=== PATIENT | male | born 1940 | race Caucasian/White ===

== ENCOUNTER 2023-01-14 13:58 | Outpatient (CLI) | payer MEDICARE, SELFPAY | END 2023-01-14 13:59 | disposition home or self-care (01) | PROVIDERS: Visit Provider Internal Medicine Nephrology | DX: R60.9 Edema, unspecified (principal); N18.2 Chronic kidney disease, stage 2 (mild); R97.20 Elevated prostate specific antigen [PSA] | CPT/HCPCS: 80069; 82043; 82306; 82310; 82570; 82728; 82784; 83520; 83540; 83550; 83970; 84155; 84165; 86334 ==

== ENCOUNTER 2023-01-30 11:36 | Outpatient (CLI) | payer MEDICARE, SELFPAY | END 2023-01-30 11:37 | disposition home or self-care (01) | LOC: NFLDREF 01-31 02:15 | PROVIDERS: Referring Provider Internal Medicine Nephrology; Visit Provider Family Medicine | DX: N18.2 Chronic kidney disease, stage 2 (mild) (principal); R60.9 Edema, unspecified | CPT/HCPCS: 80069; 82043; 82570; 84156; 84166; 86335 ==

== ENCOUNTER 2023-02-04 10:06 | Outpatient (CLI) | payer MEDICARE, SELFPAY ==
--- NOTE | 2023-02-04 10:15 | CRLHL7_ITS ---
For Patients: As a result of the Century Cures Act, medical imaging exams and procedure reports are released immediately into your electronic medical record. You may view this report before your referring provider. If you have questions, please contact your health care provider. CLINICAL HISTORY: Chronic kidney disease TECHNIQUE: Martinez scale and color Doppler images were acquired of the kidneys. FINDINGS: The right kidney measures 12.1 cm in length and the left kidney measures 11.8cm in length. The renal cortex appears of normal thickness. Multiple simple appearing cysts measuring 4 centimeters on the right and up to 4.3 centimeters on the left. IMPRESSION: Unremarkable kidneys with bilateral renal cysts. Dictated by Gris Graff MD @ 02/06/2023 5:49:50 AM (Electronically Signed)
--- NOTE | 2023-02-04 15:00 | CRLHL7_ITS ---
For Patients: As a result of the Century Cures Act, medical imaging exams and procedure reports are released immediately into your electronic medical record. You may view this report before your referring provider. If you have questions, please contact your health care provider. INDICATION: Edema TECHNIQUE: A compression venous ultrasound exam was performed of both lower extremities using zhou scale imaging, color Doppler and spectral Doppler analysis. FINDINGS: Sonographic imaging of the lower extremities demonstrates normal compressibility and color Doppler venous blood flow within the common femoral, deep femoral, and proximal greater saphenous veins. Within the thighs the femoral veins are patent and compressible. At a lower level the popliteal and posterior tibial veins also show normal compressibility and color Doppler venous blood flow. IMPRESSION: No evidence of deep vein thrombosis within either the left or right lower extremity. Lower extremity soft tissue edema. Dictated by Gris Graff MD @ 02/06/2023 5:56:03 AM (Electronically Signed)
== END 2023-02-04 10:07 | disposition home or self-care (01) ==
PROVIDERS: Visit Provider Internal Medicine Nephrology
DX: N18.2 Chronic kidney disease, stage 2 (mild) (principal); R60.9 Edema, unspecified; M79.604 Pain in right leg; M79.605 Pain in left leg
CPT/HCPCS: 76775; 93970

== ENCOUNTER 2023-02-20 11:40 | Outpatient (CLI) | payer MEDICARE, SELFPAY | END 2023-02-20 11:41 | disposition home or self-care (01) | LOC: RAD 11:44 | PROVIDERS: Visit Provider Internal Medicine Nephrology | DX: R60.9 Edema, unspecified (principal); I35.1 Nonrheumatic aortic (valve) insufficiency; I34.0 Nonrheumatic mitral (valve) insufficiency; I07.1 Rheumatic tricuspid insufficiency | CPT/HCPCS: 93306 ==

== ENCOUNTER 2023-02-26 13:10 | Outpatient (CLI) | payer MEDICARE, SELFPAY ==
--- OUTSIDE RECORDS SUMMARY | 2023-02-27 06:17 | XMS_ITS | Referral Summary ---
Author Name Unknown Organization [facility] Address [address] [place] [id number] Care Team Providers Care Safety Aide Name Role Phone Unavailable Primary Care Provider Unavailabl e Source Comments Patient records contain information from all sites at [facility]. For routine questions regarding patient records, call [phone] during business hours, M-F 8:00 AM - 5:00 PM Central Time. Record requests for emergency care only can be directed to [phone] at any time.[facility] Encounters Date Type Department Care Team Description 02/04/2023 11:30 AM DRAW FIRE OPERATOR External Outreach Division of Nephrology and Hypertension in [place], [place] [address] [place] [address] Ceci Park M.D., Ph.D. Chronic Kidney Disease (CKD), Stage 3b Glomerular Filtration Rate (GFR) 30 To 44 (HCC) (Primary Dx); Failure Renal Acute (Acute Kidney Injury) (HCC); Anemia Of Chronic Renal Disease; Swelling Leg 01/28/2023 Orders Only Division of Nephrology and Hypertension in [place], [place] [address] [place] [phone] Ceci Park M.D., Ph.D. 01/14/2023 1:00 PM DRAW FIRE OPERATOR External Outreach Division of Nephrology and Hypertension in [place], [place] [address] [place] [phone] Ceci Park M.D., Ph.D. Failure Renal Acute (Acute Kidney Injury) (HCC) (Primary Dx); Hypertension Essential Primary; Swelling Leg; Elevated Prostate-Specific Antigen 12/29/2022 Clinical Communication Division of Nephrology and Hypertension in [place], [place] [address] [place] [phone] Corona Esposito Jr., D.O. from Last 3 Months Medications Medication Sig Dispensed Refills Start Date End Date Status ferrous sulfate 325 mg (65 mg iron) DR tablet Take 1 tablet (65 mg of iron total) by mouth daily. 90 tablet 3 01/28/2023 01/28/2024 Active Social History Tobacco Use Types Packs/Day Years Used Date Smoking Tobacco: Never Assessed Nutrition Answer Date Recorded Nutrition: EVOO Fat Source Unknown 12/24 Nutrition: Servings of Fruits/Vegetables per Day Not on file 12/24/2022 Dental Answer Date Recorded Dental: Regular Dentist Unknown 12/25/19 Sex and Gender Information Value Date Recorded Sex Assigned at Not on file Gender Identity Not on file Sexual Orientation Not on file Plan of Treatment Not on file
--- OUTSIDE RECORDS SUMMARY | 2023-02-27 06:17 | XMS_ITS | Encounter Summary ---
Author Name Unknown Organization [facility] Address [address] [place] [address] Care Team Providers Care Bilingual Recruiter Name Role Phone Unavailable Primary Care Provider Unavailabl e Encounter Details Date Type Department Care Team (Late st Contact Info) Description 12/29/2022 Clinical Communication Division of Nephrology and Hypertension in [place], [place] [address] [place] [address] Corona Esposito Jr., D.O. [address] [place] [address] Social History Tobacco Use Types Packs/Day Years [...] on file Sexual Orientation Not on file documented as of this encounter Plan of Treatment Not on file documented as of this encounter Visit Diagnoses Not on filedocumented in this encounter
--- OUTSIDE RECORDS SUMMARY | 2023-02-27 06:17 | XMS_ITS | Encounter Summary ---
Author Name Unknown Organization [facility] Address [address] [place] [address] Care Team Providers Care Top Lift Compresser Name Role Phone Unavailable Primary Care Provider Unavailabl e Reason for Visit * Appointment Request (Routine) - Closed Specialty Diagnoses / Procedures Referred By Marika hutchins Referred To Contact Nephrology and Hypertension Tate Bear M.D., D.O. 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 [address] [place] [phone] Failure Renal Acute (Acute Kidney Injury) (HCC) (Primary Dx); Hypertension Essential Primary; Swelling Leg; Elevated Prostate-Specific Antigen Social History Tobacco Use Types Packs/Day Years Used Date Smoking Tobacco: Never Assessed Nutrition Answer Date Recorded Nutrition: EVOO Fat Source Unknown 12/24 Nutrition: Servings of Fruits/Vegetables per Day Not on file 12/24/2022 Dental Answer Date Recorded Dental: Regular Dentist Unknown 12/25/19 23 Sex and Gender Information Value Date Recorded Sex Assigned at Not on file Gender Identity Not on file Sexual Orientation Not on file documented as of this encounter Consult Notes * Ceci Park M.D., Ph.D. - 01/14/2023 1:00 PM CST Referring Provider: Tate Bear M.D., D.O. SUBJECTIVE CHIEF COMPLAINT / REASON FOR VISIT FRANCISCO and lower extremity edema HISTORY OF PRESENT ILLNESS Kavon Song is a 82 y.o. male with no known significant past medical history (per patient report) other than longstanding hypertension for the past 5 years on treatment with losartan/HCTZ andfurosemide, and a history of obstructing gallbladder stone requiring intervention (summer) who is referred by his PCP for FRANCISCO and lower extremity edema. Patient recalls having lower extremity edema for the past 2 years, which has worsen over the past few months. He is on diuretic therapy with furosemide and HCTZ with no improvement. He is not aware of having a heart problem or liver problem. His furosemide was decreased 3 weeks ago from 60 mg to 40mg daily due to FRANCISCO. He has chronic anemia and recently his PSA was found to be above 5. He has arthritic pain in hands, hips and feet for which he was taking Aleve 3-4 tablets per day andstopped taking it when he found out that his creatinine was elevated 3 weeks ago. He has not noticed any changes in his urine. No dizziness, no shortness of breath. He sleeps in a recliner for the past 2 years due to restless leg syndrome, but describes no shortness of breath when lying flat. Social History Tobacco Use Smoking status: Not on file Smokeless tobacco: Not on file Substance Use Topics Alcohol use: Not on file He drinks 4 oz of wine per day, he makes his own wine. He used to smoke when younger, quit more than 30 years ago. REVIEW OF SYSTEMS ,All other systems were reviewed and are negative, rest as per HPI. OBJECTIVE BP 136/72 Pulse 76 PHYSICAL EXAMINATION General: No acute distress, breathing comfortably. Heart: Regular rate and rhythm. No murmurs, rubs or gallops. Respiratory: Regular inspiratory effort. No wheezes, no rhonchi. Abdomen: Soft, not tender, not distended. Present bowel sounds. Extremities: Full range of motion. Normal gait. 3+ edema in lower extremities up to the knees, bilaterally Neuro: No focal deficits. Alert and oriented X 4. Skin: Warm. No rashes. Psych: Answers questions appropriately. No signs of anxiety or depression noted. DIAGNOSTICS Labs: [facility] ASSESSMENT / PLAN #1 Failure Renal Acute (Acute Kidney Injury) (HCC) #2 Hypertension Essential Primary #3 Swelling Leg #4 Elevated Prostate-Specific Antigen Patient is referred to Nephrology for evaluation of his FRANCISCO and lower extremity swelling. I will repeat blood work to trend creatinine now that he has discontinued NSAIDs use. I have recommended him to take tylenol for pain. I have ordered a kidney ultrasound to evaluate any signs of obstruction that could cause obstructive uropathy leading to rising creatinine. He will be referred to Urology for evaluation of elevated PSA. I will order urinalysis and check for protein in urine with 24 hr urine collection. I have added SPEP and UPEP to evaluate for his lower extremity edema. I have asked him to increase his lasix to 60 mg daily. I have also ordered an echocardiogram for evaluation of edema. Return visit in 1 month to review tests results. Pat Jose M.D., Ph.D. Nephrology and Hypertension RITY SYSTEM INSTALLER documented in this encounter Plan of Treatment Not on file documented as of this encounter Visit Diagnoses Diagnosis Failure Renal Acute (Acute Kidney Injury) (HCC)- Primary Hypertension Essential Primary Swelling Leg Elevated Prostate-Specific Antigen documented in this encounter
--- OUTSIDE RECORDS SUMMARY | 2023-02-27 06:17 | XMS_ITS | Clinical Summary ---
Author Name Unknown Organization [facility] Address [place], [place] [address] Care Team Providers Care Ballpoint Pen Cartridge Tester Name Role Phone Tate Bear DO Primary Care Provide r Allergies Active Allergy Reactions Criticality Noted Date Comments Sulfamethoxazole-Trimethoprim *Unknown Ciprofloxacin *Unknown Pravastatin *Unknown Medications Medication Sig Dispensed Refills Start Date End Date Status cholecalciferol, Vitamin D3, 2,000 unit tablet Take 2,000 units by mouth once daily. 0 Active omeprazole 20 mg tablet Take 10 mg by mouth once daily. 0 Active multivitamin (MVI) tablet Take 1 Tablet by mouth once daily. 0 Active atorvastatin (LIPITOR) 10 mg tabletIndications:Othe r hyperlipidemia Take 1 tablet by mouth once daily 90 Tablet 3 07/29/2022 Active omeprazole (PRILOSEC) 20 mg Delayed-Release capsuleIndications:Chr onic GERD TAKE 1 CAPSULE BY MOUTH ONCE DAILY NEEDED FOR GI UPSET 90 Capsule 3 07/29/2022 Active losartan-hydrochloroth iazide (HYZAAR) 100-25 mg tabletIndications:Esse ntial hypertension Take 1 Tablet by mouth once daily. 90 Tablet 3 12/17/2022 Active furosemide (LASIX) 20 mg tabletIndications:Stag e 3b chronic kidney disease (HC),Edema, unspecified type Take 3 Tablets (60 mg) by mouth once daily. 270 Tablet 1 12/19/2022 Active Active Problems Problem Noted Date Diagnosed Date Depression, recurrent 12/21/2022 Acute gout of left ankle 09/22/2021 Choledocholithiasis 09/14/2021 Abnormal LFTs 09/14/2021 Diarrhea 09/14/2021 HTN (hypertension) 09/14/2021 Hypokalemia 09/14/2021 Stage 3b chronic kidney disease 09/14/2021 Blepharitis of both eyes with rosacea 12/24/2015 Hyperopia of both eyes with astigmatism and pres byopia 12/24/2015 Nuclear senile cataract of both eyes 12/24/2015 Resolved Problems Problem Noted Date Diagnosed Date Resolved Date Refractive error 12/10/2009 12/24/2015 Encounters Date Type Department Care Team Description 02/20/2023 1:00 PM FISH SMOKER Ancillary Procedure [facility] [address] [place] [address] 01/07/[address] [phone] Tate Bear, Results 12/30/[address] [phone] Tate Bear, Referral (Nephrology) 12/30/[address] [phone] Tate Bear DO Questions (medication) 12/23/[address] [phone] Tate Bear DO Results (lab results) 12/21/2022 Orders Only [address] [phone] Tate Bear, <No scans attached> 12/18/[address] [phone] Tate Bear DO Refill Request (furosemide (LASIX) 20 mg tablet/) 12/17/2022 11:00 AM CDT Office Visit [address] [phone] Tate Bear DO Medicare ANNUAL (subsequent) Visit (Fasting- The patient reports having arthritis whole body is a stiff board. The patient reports having swollen feet and wrists. The patient reports getting tired real fast.); Immunization/Injecti on 12/17/2022 Travel 12/03/2022 Refill [facility] [address] [place] [address] Tate Bear DO Refill Request (Losartan-hydrochlor othiazide) from Last 3 Months Immunizations Name Administration Dates Next Due COVID-19 vaccine ([employer] 30mcg/0.3mL) GEORGE WARE 10/23/2020,09/10/2020 Influenza RIV4 (Age 18+ Years) PRESERV FREE 07/2019,11/16/2018 Influenza, High-dose Inactivated 11/14/2016,10/18 Influenza, High-dose Quadriv alent Inactivated 11/24/2021,10/23/2020 Influenza, IIV3 (Age 6-35 mos) 11/05/2009 Influenza, IIV3 (Age >=3 years) 12/02/2012,11/12,11/03/2008 Influenza, Inactivated AIIV4 (Age 65+ Years) Preserv Free 12/17/2022 Pneumococcal Poly,23-Valent (Pneumovax) 12/19/19 11 Pneumococcal conj 13-Valent (Prevnar 13) 018 Td (Age >=7 Years) 07/10/2011 Family History Medical History Relation Name Comments Cancer-breast Mother Relation Name Status Comments Mother Social History Tobacco Use Types Packs/Day Years Used Date Smoking Tobacco: Former Cigarettes Q uit: 02/17/1960 Smokeless Tobacco: Never Alcohol Use Standard Drinks/Week Comments Yes 0 (1 standard drink = 0.6 oz pur e alcohol) 1 drink a day PHQ-2 Answer Date Recorded PHQ-2 TOTAL SCORE 4 12/17/2022 Social Connections Answer Date Recorded Frequency of Communication with Friends and Fami ly 0 07/17/2022 Financial Resource Strain Answer Date R ecorded Difficulty of Paying Living Expenses 3 07/17/2022 Difficulty of Paying Living Expenses Not on file 07/17/2022 Food Insecurity Answer Date Recorded Worried About Running Out of Food in the Last Ye ar 1 07/17/2022 Transportation Needs Answer Date Record ed Lack of Transportation (Medical) 1 07/17/2022 Housing Stability Answer Date Recorded Unable to Pay for Housing in the Last Year 1 07/17/2022 Sex and Gender Information Value Date Recorded Sex Assigned at Not on file Gender Identity Not on file Sexual Orientation Not on file Obstetrics History Last Filed Vital Signs Vital Sign Reading Time Taken Comments Blood Pressure 110/68 12/17/2022 11:03 AM CDT Pulse 70 12/17/2022 11:03 AM CDT Temperature 36.6 ??C (97.8 ??F) 09/22/2021 9:36 AM CD T Respiratory Rate 18 09/21/2021 11:42 AM CDT Oxygen Saturation 97% 07/17/2022 10:40 AM CDT Inhaled Oxygen Concentration - - Weight 69.4 kg (153 lb) 12/17/2022 11:03 AM CDT Height 162.6 cm (5' 4) 12/17/2022 11:03 AM CDT Body Mass Index 26.26 12/17/2022 11:03 AM CDT Plan of Treatment Health Maintenance Due Date Last Done Comments Tdap 1949 Zoster (shingles) series for age 50+ (1 of 2) 1988 Tetanus booster 07/09/2021 07/10/2011 COVID-19 vaccine series ( season) 2022 10/23/2020, 09/10/2020 Medicare Wellness for age 65+ 12/17/2023 12/17/2022, 04/18/2021 BMI (ht and wt on same day) for age 18+ 12/18/2023 12/17/2022, 07/17/2022, 09/27/2021, Additional history exists Depression screening for age 12+ 12/19/2023 12/18/2022, 12/17/2022, 04/18/2021 Pneumococcal series for age 65+ Completed 8, 12/18/2010 Influenza for age 65+ Completed 12/17/2022 , 11/24/2021, 10/23/2020, Additional history exists Procedures Procedure Name Priority Date/Time Associated Diagnosis Comments ECHO TTE COMPLETE WO CONTRAST Routine 02/20/2023 12:29 PM FISH SMOKER Edema PSA TOTAL SCREEN Routine 12/17/2022 11:3 6 AM CDT Prostate cancer screening LIPID PANEL W REFLEX MEASURED LDL Routine 12/17/2022 11:36 AM CDT Other hyperlipidemia COMP METABOLIC PANEL Routine 12/17/2022 11:36 AM CDT Medicare annual wellness visit, subsequent CBC W PLT NO DIFF Routine 12/17/2022 11: 36 AM CDT Medicare annual wellness visit, subsequent from Last 3 Months Results * ECHO TTE COMPLETE WO CONTRAST (02/20/2023 12:29 PM FISH SMOKER) AORTIC VALVE MEAN PG 7 mmHg EJECTION FRACTION 55 % PEAK TR VELOCITY 2.8 m/s LVEDD 3.2 cm Anatomical Region Laterality Modality Ultrasound 02/20/2023 12:0 5 PM FISH SMOKER Narrative 02/20/2023 1:24 PM FISH SMOKER ECHOCARDIOGRAM WOJCIECH SONG ?Accession#: ?? [id number] : ?1940 82 years Study Date: ?? 02/20/2023 12:05:59 PM Gender: M ? BP: ? 122/72 mmHg Height: 163.00 cm ? BSA: ?1.76 m? ? ? Weight: 70.00 kg ?Tech: ? MJW ?Referring MD: Floyd Stewart Site: ? [facility] Reading Location: Mobile-OP Patient Location: Outpatient. Procedure: 2D, Color Doppler and Spectral Doppler. Indication for study: Edema Cardiac Rhythm: Regular.Study quality: Fair. Imaging limitations: This study was subject to imaging limitations due to a prominent lung artifact. Final Impressions: 1. Normal left ventricular size, mildly increased wall thickness, normal global systolic function, calculated EF of 55 %. 2. Right ventricular cavity size is normal, global systolic RV function is normal. 3. The aortic valve is sclerotic, no stenosis and trivial regurgitation. 4. The mitral valve is sclerotic, trace mitral regurgitation. 5. Tricuspid valve is normal. 6. Normal left atrium size. 7. The ascending aorta is dilated with a maximal diameter of 4.0 cm. 8. Mildly increased estimated pulmonary pressures by tricuspid regurgitation velocity and right atrial pressure (31 mmHg plus RAP). 9. The aortic sinus is dilated with a maximal diameter of 3.9 cm. 10. No pericardial effusion. Chamber Sizes and Function Normal left ventricular size, mildly increased wall thickness, normal global systolic function, calculated EF of 55 %. Left atrial size is normal. Right ventricular cavity size is normal, global systolic RV function is normal. RV wall thickness is normal. The right atrium is normal. Right atrial volume index is 14 ml/m? ? ?. Right atrial area is 11 cm? ? ?. The pulmonary artery is of normal size and origin. The sinus of Valsalva is dilated. The ascending aorta is dilated. Valves, RV Pressures and Diastolic Function The aortic valve is sclerotic, no stenosis and trivial regurgitation. The mitral valve is sclerotic, trace mitral regurgitation. Indeterminate pattern of LV diastolic filling. The tricuspid valve is normal in structure. Tricuspid regurgitation is trace regurgitation. The tricuspid regurgitant velocity is 2.8 m/s, the estimated right ventricular systolic pressure is 31 mmHg plus right atrial pressure. There is mildly increased estimated pulmonary pressure by tricuspid regurgitation velocity and right atrial pressure. The pulmonic valve is normal. Mild pulmonary regurgitation. Masses, Effusion, Shunts There is no pericardial effusion. The inferior vena cava is normal sized, respiratory size variation greater than 50%. Interatrial septum is not well visualized. MEASUREMENTS AND CALCULATIONS 2-D Measurements and LV Function: LVID (d) 3.2 cm Planimetered EF 55 % LVID (s) 1.6 cm LV FS% (2D) ? 49 % IVS (d) ??1.2 cm LVOT diameter ?? 2.3 cm LVPW (d) 1.3 cm HR ?105 bpm Ao Sinus 3.9 cm LA Vol index ?22 ml/m2 Asc Ao ?? 4.0 cm RA Vol index ?14 ml/m2 LA ? 3.4 cm RA area ? 11 cm?RV Max 4C (d) ?? 3.6 cm Diastology: Mitral ?Tissue Doppler E Peak 0.8 m/s ??e', Septum ? 0.07 m/s A Peak 1.2 m/s ??e', Lateral ?0.06 m/s E/A ?0.7 ?E/e' Average ?? 13.98 DT ? 128 msec Aortic Valve: Vmax ? 1.7 m/s ??STEPHANIE (V) ?? 2.89 cm? ? ? VTI ?0.32 m ?? STEPHANIE (I) ?? 2.60 cm? ? ? LVOT V max ? 1.2 m/s ??Max PG ?11 mmHg LVOT VTI ? 0.20 m ?? Mean PG ?? 7 mmHg SV ? 82 ml ?Dim Index 0.63 SV index ? 47 ml/m? ? ? CO ?8.6 l/min AV Ejection Time 0.25 sec CI ?4.9 l/min/m? ? ? AV Flow Rate ? 330 ml/s Mitral Valve: MVA ? 5.9 cm? ? ? MV P 1/2 ??37 msec MV Mean G 4 mmHg MV VTI ?0.21 m Tricuspid Valve and estimated PA pressures: TR Vmax 2.8 m/s TAPSE 1.9 cm TR maxG 31 mmHg . This study was interpreted by an [facility] accredited facility. CC: NURY (med records) [facility]. ??Final ?? Procedure Note Jackie Pimentel, [facility] - 02/20/2023 ECHOCARDIOGRAM WOJCIECH SONG : 1940 82 years Study Date: 02/20/2023 12:05:59 PM Gender: M BP: 122/72 mmHg Height: 163.00 cm BSA: 1.76 m? ? ? Weight: 70.00 kg Tech: MARYANN Referring MD: Floyd Stewart Site: [facility] Reading Location: Mobile-OP Patient Location: Outpatient. Procedure: 2D, Color Doppler and Spectral Doppler. Indication for study: Edema Cardiac Rhythm: Regular.Study quality: Fair. Imaging limitations: This study was subject to imaging limitations due toa prominent lung artifact. Final Impressions: 1. Normal left ventricular size, mildly increased wall thickness, normalglobal systolic function, calculated EF of 55 %. 2. Right ventricular cavity size is normal, global systolic RV functionis normal. 3. The aortic valve is sclerotic, no stenosis and trivialregurgitation. 4. The mitral valve is sclerotic, trace mitral regurgitation. 5. Tricuspid valve is normal. 6. Normal left atrium size. 7. The ascending aorta is dilated with a maximal diameter of 4.0 cm. 8. Mildly increased estimated pulmonary pressures by tricuspidregurgitation velocity and right atrial pressure (31 mmHg plus RAP). 9. The aortic sinus is dilated with a maximal diameter of 3.9 cm. 10. No pericardial effusion. Chamber Sizes and Function Normal left ventricular size, mildly increased wall thickness, normalglobal systolic function, calculated EF of 55 %. Left atrial size isnormal. Right ventricular cavity size is normal, global systolic RVfunction is normal. RV wall thickness is normal. The right atrium isnormal. Right atrial volume index is 14 ml/m? ? ?. Right atrial area is 11cm? ? ?. The pulmonary artery is of normal size and origin. The sinus ofValsalva is dilated. The ascending aorta is dilated. Valves, RV Pressures and Diastolic Function The aortic valve is sclerotic, no stenosis and trivial regurgitation. Themitral valve is sclerotic, trace mitral regurgitation. Indeterminatepattern of LV diastolic filling. The tricuspid valve is normal instructure. Tricuspid regurgitation is trace regurgitation. The tricuspidregurgitant velocity is 2.8 m/s, the estimated right ventricular systolicpressure is 31 mmHg plus right atrial pressure. There is mildly increasedestimated pulmonary pressure by tricuspid regurgitation velocity and rightatrial pressure. The pulmonic valve is normal. Mild pulmonaryregurgitation. Masses, Effusion, Shunts There is no pericardial effusion. The inferior vena cava is normal sized,respiratory size variation greater than 50%. Interatrial septum is notwell visualized. MEASUREMENTS AND CALCULATIONS 2-D Measurements and LV Function: LVID (d) 3.2 cm Planimetered EF 55 % LVID (s) 1.6 cm LV FS% (2D) 49 % IVS (d) 1.2 cm LVOT diameter 2.3 cm LVPW (d) 1.3 cm HR 105 bpm Ao Sinus 3.9 cm LA Vol index 22 ml/m2 Asc Ao 4.0 cm RA Vol index 14 ml/m2 LA 3.4 cm RA area 11 cm? ? ? RV Max 4C (d) 3.6 cm Diastology: Mitral Tissue Doppler E Peak 0.8 m/s e', Septum 0.07 m/s A Peak 1.2 m/s e', Lateral 0.06 m/s E/A 0.7 E/e' Average 13.98 DT 128 msec Aortic Valve: Vmax 1.7 m/s STEPHANIE (V) 2.89 cm? ? ? VTI 0.32 m STEPHANIE (I) 2.60 cm? ? ? LVOT V max 1.2 m/s Max PG 11 mmHg LVOT VTI 0.20 m Mean PG 7 mmHg SV 82 ml Dim Index 0.63 SV index 47 ml/m? ? ? CO 8.6 l/min AV Ejection Time 0.25 sec CI 4.9 l/min/m? ? ? AV Flow Rate 330 ml/s Mitral Valve: MVA 5.9 cm? ? ? MV P 1/2 37 msec MV Mean G 4 mmHg MV VTI 0.21 m Tricuspid Valve and estimated PA pressures: TR Vmax 2.8 m/s TAPSE 1.9 cm TR maxG 31 mmHg . This study was interpreted by an [facility] accredited facility. CC: NURY (med records) [facility]. Final Provider Referring ECHO ORD * (ABNORMAL) LIPID PANEL W REFLEX MEASURED LDL (12/17/2022 11:36 AM CDT) CHOLESTEROL,TOTAL 153 100 - 199 mg/dL 12/18/2022 7:17 AM CDT [facility] Comment: Cholesterol, Total Reference Ranges Desirable <200 mg/dL Borderline 200-239 mg/dL High >=240 mg/dL TRIGLYCERIDES 241(H) <150 mg/dL 12/18/2022 7:17 AM CDT [facility] HDL CHOLESTEROL 29(L) >40 mg/dL 7:17 AM CDT [facility] NON-HDL CHOLESTEROL 124 <145 mg/dl 12/18/2022 7:17 AM CDT [facility] CHOL/HDL RATIO 5.28(H) <4.50 12/18/2022 7:17 AM CDT [facility] LDL CHOLESTEROL 76 <=130 mg/dL 12/18/2022 7:17 AM CDT [facility] VLDL CHOLESTEROL 48(H) <=30 mg/dL 12/18/2022 7:17 AM CDT [facility] PROVIDER ORDERED STATUS RANDOM 12/18/2022 7:17 AM CDT [facility] Blood BLOOD SPECIMEN / Unknown Venipuncture / Unknown 12/17/2022 11:36 AM CDT 12/17/2022 11:40 AM CDT Tate Bear DO CHEMISTRY [facility] [address] [place] [address], * (ABNORMAL) CBC W PLT NO DIFF (12/17/2022 11:36 AM CDT) WHITE BLOOD COUNT 10.8 4.5 - 11.0 thou/cu mm 12/17/2022 11:48 AM CDT [facility] RED BLOOD COUNT 3.56(L) 4.30 - 5.90 mil/cu mm 12/17/2022 11:48 AM CDT [facility] HEMOGLOBIN 10.0(L) 13.5 - 17.5 g/dL 12/17/2022 11:48 AM CDT [facility] HEMATOCRIT 31.4(L) 37.0 - 53.0 % 12/17/2022 11:48 AM CDT [facility] MCV 88 80 - 100 fL 12/17/2022 11:48 AM CDT [facility] MCH 28.1 26.0 - 34.0 pg 12/17/2022 11:48 AM CDT [facility] MCHC 31.8(L) 32.0 - 36.0 g/dL 12/17/2022 11:48 AM CDT [facility] RDW 14.2 11.5 - 15.5 % 12/17/2022 11:48 AM CDT [facility] PLATELET COUNT 303 140 - 440 thou/cu mm 12/17/2022 11:48 AM CDT [facility] MPV 9.2 6.5 - 11.0 fL 12/17/2022 11:48 AM CDT [facility] NRBC 0.0 % 12/17/2022 11:48 AM CDT [facility] ABS NRBC 0.0 thou /cu mm 12/17/2022 11:48 AM CDT [facility] Blood BLOOD SPECIMEN / Unknown Venipuncture / Unknown 12/17/2022 11:36 AM CDT 12/17/2022 11:40 AM CDT Tate Bear DO HEMATOLOGY Performing Organization Address City/State/[facility] Co de Phone Number [facility] [address] [place] [address], [place] * (ABNORMAL) COMP METABOLIC PANEL (12/17/2022 11:36 AM CDT) SODIUM 141 136 - 145 mmol/L 12/18/2022 7:17 AM CDT [facility] POTASSIUM 4.8 3.5 - 5.1 mmol/L 12/18/2022 7:17 AM T [facility] CHLORIDE 104 98 - 107 mmol/L 12/18/2022 7:17 AM T [facility] CO2,TOTAL 24 22 - 29 mmol/L 12/18/2022 7:17 AM T [facility] ANION GAP 13 5 - 18 12/18/2022 7:17 AM T [facility] GLUCOSE 104(H) 70 - 99 mg/dL 12/18/2022 7:17 AM T [facility] CALCIUM 10.0 8.8 - 10.2 mg/dL 12/18/2022 7:17 AM T [facility] BUN 53(H) 8 - 23 mg/dL 12/18/2022 7:17 AM T [facility] CREATININE 2.21(H) 0.70 - 1.20 mg/dL 12/18/2022 7:17 AM [facility] BUN/CREAT RATIO 24(H) 10 - 20 7:17 AM T [facility] eGFR 29(L) >90 mL/min/1.7 3m2 12/18/2022 7:17 AM T [facility] Comment:As of 2021, eG FR is calculated by the CKD-EPI creatinine equation without race adjustment. ??eGFR can be influenced by muscle mass, exercise, and diet. ??The reported eGFR is an estimation only and is only applicable if the renal function is stable. ALBUMIN 3.7(L) 4.0 - 4.9 g/dL 12/18/2022 7:17 AM T [facility] PROTEIN,TOTAL 7.6 6.0 - 8.0 g/dL 12/18/2022 7:17 AM CDT [facility] BILIRUBIN,TOTAL 0.3 0.0 - 1.2 mg/dL 12/18/2022 7:17 AM CDT [facility] ALK PHOSPHATASE 87 40 - 129 IU/L 12/18/2022 7:17 AM CDT [facility] ALT (SGPT) 17 10 - 50 IU/L 12/18/2022 7:17 AM CDT [facility] AST (SGOT) 23 10 - 50 IU/L 12/18/2022 7:17 AM CDT [facility] Blood BLOOD SPECIMEN / Unknown Venipuncture / Unknown 12/17/2022 11:36 AM CDT 12/17/2022 11:40 AM CDT Tate Bear DO CHEMISTRY [facility] [address] [place] [address], * (ABNORMAL) PSA TOTAL SCREEN (12/17/2022 11:36 AM CDT) PSA TOTAL (SCREEN) 5.73(H) <4.00 ng/mL 12/18/2022 7:17 AM CDT [facility] Blood BLOOD SPECIMEN / Unknown Venipuncture / Unknown 12/17/2022 11:36 AM CDT 12/17/2022 11:40 AM CDT Narrative [facility] - 12/18/2022 7:17 AM CDT The test method changed on 08/12/2022. If this test has been used for serial monitoring, rebaselining is recommended. Rebaselining consists of 2 measurements, collected 3-6 weeks apart. The Jacquelin Elecsys total PSA assay is an electrochemiluminescence immunoassay ECLIA performed on the Jacquelin Mason e immunoassay analyzers. Values obtained with different assay methods may be different and cannot be used interchangeably. Tate Bear DO [facility] [address] [place] [address], from Last 3 Months Advance Directives Latest Code Status on File Code Status Date Activated Date Inactivated Comments Full Code 09/14/2021 2:29 PM 09/15/2021 2:06 PM Question Answer Comments Code Status Discussion: Reviewed Preferences Care Teams Ballpoint Pen Cartridge Tester Relationship Specialty [place] [address] [place] [address] PCP - General Family Practice 07/23/22
--- OUTSIDE RECORDS SUMMARY | 2023-02-27 06:17 | XMS_ITS | Encounter Summary ---
Author Name Unknown Organization [facility] Address [address] [place] [address] Care Team Providers Care Children'S Entertainer Name Role Phone Unavailable Primary Care Provider Unavailabl e Encounter Details Date Type Department Care Team (Late st Contact Info) Description 01/28/2023 Orders Only Division of Nephrology and Hypertension in [place], [place] [address] [place] [phone] Ceci Park M.D., Ph.D. [address] [place] [address] Social History Tobacco Use Types Packs/Day Years [...]
--- OUTSIDE RECORDS SUMMARY | 2023-02-27 06:17 | XMS_ITS | Encounter Summary ---
Author Name Unknown Organization [facility] Address [address] [place] [id number] Care Team Providers Care Import Export Agent Name Role Phone Unavailable Primary Care Provider Unavailabl e Reason for Visit * Appointment Request (Routine) - Closed Specialty Diagnoses / Procedures Referred By Marika hutchins Referred To Contact Nephrology and Hypertension Referral ID Status Reason Start Date Expiration Date Visits Re quested Visits Authorized [id number] Closed 01/16/2023 01/16/2024 1 1 Encounter Details Date Type Department Care Team (Latest Contact Info) Description 02/04/2023 11:30 AM GLASS INSPECTOR External Outreach Division of Nephrology and Hypertension in [place], [place] [address] [place] [address] Ceci Park M.D., Ph.D. [address] [place] [address] Chronic Kidney Disease (CKD), Stage 3b Glomerular Filtration Rate (GFR) 30 To 44 (HCC) (Primary Dx); Failure Renal Acute (Acute Kidney Injury) (HCC); Anemia Of Chronic Renal Disease; Swelling Leg Social History Tobacco Use Types Packs/Day Years [...] on file documented as of this encounter Progress Notes * Ceci Park M.D., Ph.D. - 02/04/2023 11:30 AM CST PROGRESS NOTE SUBJECTIVE CHIEF COMPLAINT / REASON FOR VISIT Follow up FRANCISCO on CKD, edema HISTORY OF PRESENT ILLNESS Kavon Song is a 82 y.o. male who is seen for follow up. He has no known significant past medical history (per patient report) other than longstanding hypertension for the past 5 years on treatment with losartan/HCTZ and furosemide, and a history of obstructing gallbladder stone requiring intervention (summer) who was referred by his PCP for FRANCISCO and lower extremity edema. FRANCISCO was associated with NSAIDs use, he has now discontinue Aleve and his kidney function is back tohis baseline with a Cr. Of 1.8. Patient recalls having lower extremity edema for the past 2 years, which has worsen over the past few months. He is on diuretic therapy with furosemide which he increased to 60 mg daily and HCTZ 25 mg daily with no improvement. He is not aware of having a heart problem or liver problem. Liver enzymes were normal in 12/2022. He has an appointment for echo on Feb 20, 2022. He has chronic anemia and recently his PSA was found to be above 5. He has been referred to Urologyfor follow up on his PSA. He was started on oral supplementation for his anemia. He has arthritic pain in hands, hips and feet Tylenol has not been of much help with his chronic arthritic pain. He has not noticed any changes in his urine. No dizziness, no shortness of breath. OBJECTIVE BP 110/52 Pulse 103 PHYSICAL EXAMINATION Physical Exam Heart: No murmurs, rubs or gallops Lungs: Clear to auscultation bilaterally Extremities: Bilateral 3+ pitting lower extremity edema, right > left DIAGNOSTICS I have reviewed available labs in detail with patient. ASSESSMENT / PLAN #1 FRANCISCO on CKD 3, resolved #2 CKD 3 in the setting of hypertension #3 Anemia of CKD #4 Lower extremity edema Patient returns for follow up. Kidney function back to his baseline. Patient may continue with lasix 60 mg daily and HCTZ 25 mg daily. His lower extremity edema is not improved. His right leg is significantly more swollen than left leg, plan to rule out DVTs with a bilateral LE ultrasound with doppler. He is scheduled for echo in February as work up of his volume overload as well. Continue iron supplementation for anemia. Recheck iron levels in 3 months. 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 Return visit in February Pat Jose M.D., Ph.D. S INSPECTOR documented in this encounter Plan of Treatment Not on file documented as of this encounter Visit Diagnoses Diagnosis Chronic Kidney Disease (CKD), Stage 3b Glomerular Filtration Rate (GFR) 30 To 44 (HCC)- Primary Failure Renal Acute (Acute Kidney Injury) (HCC) Anemia Of Chronic Renal Disease Swelling Leg documented in this encounter
--- OUTSIDE RECORDS SUMMARY | 2023-02-27 06:17 | XMS_ITS | Clinical Summary ---
Author Name Unknown Organization [facility] Address [address] [place] [address] Care Team Providers Care Machine Tank Operator Name Role Phone Unavailable Primary Care Provider Unavailabl e Source Comments Patient records contain information from all sites at [facility]. For routine questions regarding patient records, call [phone] during business hours, M-F 8:00 AM - 5:00 PM Central Time. Record requests for emergency care only can be directed to [phone] at any time.[facility] Medications Medication Sig Dispensed Refills Start Date End Date Status ferrous sulfate 325 mg (65 mg iron) DR tablet Take 1 tablet (65 mg of iron total) by mouth daily. 90 tablet 3 01/28/2023 01/28/2024 Active Encounters Date Type Department Care Team Description 02/04/2023 11:30 AM PHOTOGRAPH DEVELOPER External Outreach Division of Nephrology and Hypertension in [place], [place] [address] [place] [address] Ceci Park M.D., Ph.D. Chronic Kidney Disease (CKD), Stage 3b Glomerular Filtration Rate (GFR) 30 To 44 (HCC) (Primary Dx); Failure Renal Acute (Acute Kidney Injury) (HCC); Anemia Of Chronic Renal Disease; Swelling Leg 01/28/2023 Orders Only Division of Nephrology and Hypertension in [place], [place] [address] [place] [address] Ceci Park M.D., Ph.D. 01/14/2023 1:00 PM PHOTOGRAPH DEVELOPER External Outreach Division of Nephrology and Hypertension in [place], [place] [address] [place] [address] Ceci Park M.D., Ph.D. Failure Renal Acute (Acute Kidney Injury) (HCC) (Primary Dx); Hypertension Essential Primary; Swelling Leg; Elevated Prostate-Specific Antigen 12/29/2022 Clinical Communication Division of Nephrology and Hypertension in [place], [place] [address] [place] [address] Corona Esposito Jr., D.O. from Last 3 Months Social History Tobacco Use Types Packs/Day Years [...] Orientation Not on file Plan of Treatment Health Maintenance Due Date Last Done Comments Zoster Vaccines (1 of 2) 1988 DTaP,Tdap,and Td Vaccines (1 - Tdap) 07/11/2011 07/10/2011 Depression Screening (Annual PHQ-2) 02/16/2022 Fall Risk Screen (Annual) 02/16/2022 COVID-19 Vaccine (3 - 2022-2 4 season) 2022 10/23/2020, 09/10/2020 Pneumococcal vaccine (65+ years) Completed 11/26/19 18, 12/18/2010 Influenza Vaccine Completed 12/17/2022, , 10/23/2020, Additional history exists
--- OUTSIDE RECORDS SUMMARY | 2023-02-27 06:17 | XMS_ITS ---
Author Name Unknown Organization [facility] Address [address] [place] [address] Care Team Providers Care Double End Tenoner Setter Name Role Phone Unavailable Unavailable Unavailable Surgery Details Not on file Complications Check Surgery Details section. Procedure Estimated Blood Loss Check Surgery Details section. Procedure Findings Check Surgery Details section. Procedure Specimens Taken Check Surgery Details section.
== END 2023-02-26 13:11 | disposition home or self-care (01) ==
LOC: NFLDREF 02-27 06:16
PROVIDERS: Visit Provider Internal Medicine Nephrology
DX: N18.2 Chronic kidney disease, stage 2 (mild) (principal)
CPT/HCPCS: 80069

== ENCOUNTER 2023-04-14 10:55 | Outpatient (CLI) | payer MEDICARE, SELFPAY ==
--- NOTE | 2023-04-14 11:00 | US_ITS ---
Patient: WOJCIECH GUO Facility:?[facility] Patient ID:?[id number] Site Patient ID:?[id number]. Site :?[id number] Study:?US-Abdomen RUQ-04/14/2023 11:45:03 AM Ordering Physician:?CARLOZ BOB Final Report: INDICATION: Cirrhosis COMPARISON: none TECHNIQUE: Real time zhou scale imaging and color Doppler analysis was performed of the right upper quadrant. FINDINGS: The visualized liver parenchyma is coarsened. The left hepatic lobe is not well visualized. The liver measures 21.7 cm. No intrahepatic mass. No ascites. Gallbladder wall measures 4.1 millimeters. Common bile duct measures 10.3 millimeters. Main portal vein is patent and measures 1.5 cm. Right kidney measures 11.3 cm. No hydronephrosis. Simple exophytic right renal cyst measures 4.0 x 2.7 x 4.3 cm. Visualized pancreas appears normal. Incomplete visualization of the aorta. Normal IVC. IMPRESSION: Hepatomegaly with chronic coarsening of the visualized echotexture compatible with chronic liver disease. No ascites. Gallbladder wall thickening likely related to chronic liver disease. Exophytic simple right renal cyst. No hydronephrosis. Dictated by Vlad Beck MD @ 04/14/2023 11:57:00 AM Signed by:?Vlad Beck MD @04/14/2023 11:57:00 AM (Electronic Signature)
== END 2023-04-14 10:56 | disposition home or self-care (01) ==
PROVIDERS: Visit Provider Internal Medicine Nephrology
DX: K74.60 Unspecified cirrhosis of liver (principal); R16.0 Hepatomegaly, not elsewhere classified
CPT/HCPCS: 76705

== ENCOUNTER 2023-04-24 13:20 | Outpatient (CLI) | payer MEDICARE, SELFPAY ==
--- NOTE | 2023-05-14 15:49 | ONC.NURNOTE ---
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 He is going to trial PO iron and recheck in a month. If not better, they will send new order for IV iron.
== END 2023-04-24 13:21 | disposition home or self-care (01) ==
LOC: NFLDREF 04-27 06:08
PROVIDERS: Visit Provider Internal Medicine Nephrology
DX: N18.2 Chronic kidney disease, stage 2 (mild) (principal); R60.9 Edema, unspecified
CPT/HCPCS: 80069; 82728; 83540; 83550; 84450; 84460

== ENCOUNTER 2024-01-01 12:30 | Emergency (ER) | payer MEDICARE, SELFPAY ==
[2024-01-01] VITALS (48 sets, daily range): BP systolic 72–105; BP diastolic 42–64; PULSE 82–98; RESP 14–24; TEMP 36.2; O2SAT 84–99; BMI 18.0
--- OUTSIDE RECORDS SUMMARY | 2024-01-01 12:34 | XMS_ITS | Clinical Summary ---
Author Organization [facility] Address [place], [place] [address] Care Team Providers Care Station Engineer Main Line Name Role Phone Tate Bear DO Primary Care Provide r Allergies Active Allergy Reactions Criticality Noted Date Comments Sulfamethoxazole-Trimethoprim *Unknown Ciprofloxacin *Unknown Pravastatin *Unknown Medications Medication Sig Dispensed Refills Start Date End Date Status cholecalciferol, Vitamin D3, 2,000 unit tablet Take 2,000 units by mouth once daily. Active multivitamin (MVI) tablet Take 1 Tablet by mouth once daily. Active omeprazole (PRILOSEC) 20 mg Delayed-Release capsuleIndications: Chronic GERD TAKE 1 CAPSULE BY MOUTH ONCE DAILY NEEDED FOR GI UPSET 90 Capsule 3 07/29/2022 Active diphenoxylate-atrop ine, 2.5-0.025 mg, (LOMOTIL) 2.5-0.025 mg tabletIndications:C hronic diarrhea 1 tablet p.o. twice daily to 3 times daily as needed diarrhea 60 Tablet 3 06/01/2023 Active montelukast (SINGULAIR) 10 mg tabletIndications:C hronic diarrhea Take 1 Tablet (10 mg) by mouth at bedtime. 30 Tablet 3 06/01/2023 Active furosemide (LASIX) 20 mg tabletIndications:S tage 3b chronic kidney disease (HC),Edema, unspecified type Take 3 tablets by mouth once daily 270 Tablet 3 09/30/2023 Active atorvastatin (LIPITOR) 10 mg tabletIndications:O ther hyperlipidemia Take 1 tablet by mouth once daily 90 Tablet 1 11/02/2023 Active losartan-hydrochlor othiazide (HYZAAR) 100-25 mg tabletIndications:E ssential hypertension Take 1 tablet by mouth once daily 90 Tablet 12/16/2023 Active losartan-hydrochlor othiazide (HYZAAR) 100-25 mg tabletIndications:E ssential hypertension Take 1 Tablet by mouth once daily. 90 Tablet 3 12/17/2022 4 Discontinued Active Problems Problem Noted Date Diagnosed Date [...] Encounters Date Type Department Care Team Description 12/14/[address] [address] Tate Bear, Refill Request (Losartan-hydrochlorothi azide) 10/29/[address] [address] Tate Bear, DO Refill Request (Atorvastatin) from Last 3 Months Immunizations Name Administration Dates Next Due COVID-19 vaccine ([facility] 30mcg/0.3mL) GEORGE WARE 10/23/2020,09/10/2020 Influenza RIV4 (Age [...] of Communication with Friends and Fami ly Not on file 07/18/2023 Financial Resource Strain Answer Date R ecorded [...] for age 50+ (1 of 2) 1988 RSV vaccine for adults or (1 - 1-dose 75+ series) 2013 Tetanus booster 07/09/2021 07/10/2011 COVID-19 vaccine series ( season) 2023 10/23/2020, 09/10/2020 Influenza for age 65+ 10/18/2023 12/17/2022 , 11/24/2021, 10/23/2020, Additional history exists BMI (ht and wt on same day) for age 18+ 12/18/2023 12/17/2022, 07/17/2022, 09/27/2021, Additional history exists Medicare Wellness for age 65+ 12/18/2023 12/17/2022, 04/18/2021 Depression screening for age 12+ 12/19/2023 12/18/2022, 12/17/2022, 04/18/2021 Pneumococcal series for age 65+ Completed 8, 12/18/2010 Advance Directives * Full Code (Latest Code Status on File) Date Activated Date Inactivated Comments 09/14/2021 2:29 PM 09/15/2021 2:06 PM Question Answer Comments Code Status Discussion: Reviewed Preferences Care Teams Station Engineer Main Line Relationship Specialty [place] [id number] [place] [address] PCP - General Family Practice 07/23/22
--- NOTE | 2024-01-01 13:28 | ED.GENADULT ---
HPI - General Adult General Date Seen: 01/01/24 Chief complaint: Weakness Stated complaint: very sick, hasn't eaten or drank anything x 1 week Time Seen by Provider: 01/01/24 13:23 History of Present Illness HPI narrative: This is a 83-year-old gentleman with history of cirrhosis and chronic kidney disease (per records from Clinic, Dr. Echols, last June, the has nephrology care through [facility]), and monoclonal gammopathy, nonspecific. Chronic anemia. Anasarca. Per scanned in nephrology clinic records from May 05 2023, he has a history of longstanding hypertension (on losartan/hydrochlorothiazide, and furosemide), the chronic renal insufficiency (Previous FRANCISCO associated with NSAIDs. No off NSAIDs and baseline creatinine ranges 1.8-1.9), cholecystectomy for obstructing gallstones in summer 2022. He has had an echocardiogram that showed EF of 55%. He has a history of him abnormal liver transaminase levels and has a history of heavy alcohol drinking, but according to his nephrology notes from last spring he was drinking a couple of less is a red wine per day. Liver ultrasound had showed hepatomegaly but no ascites. Per nephrology notes he was on Lasix 60 mg daily and hydrochlorothiazide 25 mg daily. Her notes also mention monoclonal gammopathy, anasarca, chronic anemia. Dr. Pat Jose. Per records from [facility] care link he has been calling for a refill of his Hyzaar. Per his , patient has not had a checkup with his doctor through the [facility] system since last year. The patient is very weak, coughing, somewhat confused so provides most of his history. She reports ?going downhill? since last year ever since he had his gallbladder out. He has had some trouble with chronic watery diarrhea for at least the past year, maybe longer. I can not really get a characterization of how often he has a stool but at least every day, sometimes more than once. Usually water. It sounds like it he has had tests for C diff and they were negative. He has been tried on antidiarrheal medicines but they do not help. No vomiting. Sometimes he is nauseous. No black or bloody stools. He has also had a cough that is sometimes productive of brownish group. Cough has been there for probably 6 months. Sometimes he feels short of breath. It is not clear that the cough is necessarily worse than normal lately. Not clear that his breathing is necessarily worse than normal lately. He is not having any chest pain. No fevers. The he has had progressively worsening generalized weakness for the past several weeks or months. He has chronic bilateral lower extremity edema. He is on Lasix for that. He supposed to do compression wraps, but has not been doing them for the past couple weeks because it is too bothersome and uncomfortable. Edema is not really worsening. It is not improving. No new redness. No sores on his feet. They have not been changing his dose of Lasix recently. He has a history of ?cirrhosis? listed in some of his medical records. However he has been seen by a liver specialist at [place] and has been told that his liver is fine. For the past couple of weeks he has had increasing generalized body aches, shoulder pain, back pain, abdominal pain. It sounds like he has got some chronic pain but it has been getting steadily worse. Unclear what he has been taking to help manage the pain. For the past week or so he has had progressive generalized weakness, anorexia. He is increasingly needing assistance from his and son. No new fevers. No change in his chronic diarrhea. No definite changes in his cough. He does urinate a couple of times per day. He does not know if it is dark or bloody because he never looks. Related Data Home Medications ?Medication ?Instructions ?Recorded ?Confirmed acetaminophen 650 mg tablet 650 mg PO TID PRN 01/14/23 05/13/23 ascorbic acid (vitamin C) 1,000 mg 1,000 mg PO QDAY 01/14/23 05/13/23 tablet atorvastatin 10 mg tablet 10 mg PO QHS 01/14/23 05/13/23 cholecalciferol (vitamin D3) 50 50 mcg PO QDAY 01/14/23 05/13/23 mcg (2,000 unit) capsule furosemide 20 mg tablet 40 mg PO QAM 01/14/23 05/13/23 losartan 100 1 tab PO QDAY 01/14/23 05/13/23 mg-hydrochlorothiazide 25 mg tablet multivitamin (Daily Multi-Vitamin 1 tab PO QAM 01/14/23 05/13/23 tablet) omeprazole 20 mg tablet,delayed 10 mg PO QDAY 01/14/23 05/13/23 release ferrous sulfate 325 mg (65 mg 325 mg PO QDAY 02/04/23 05/13/23 iron) tablet (FeroSul) Previous Rx's ?Medication ?Instructions ?Recorded diphenoxylate-atropine 2.5 1 tab PO TID PRN diarrhea #60 tabs 05/13/23 mg-0.025 mg tablet (Lomotil) Allergies Allergy/AdvReac Type Severity Reaction Status Date / Time No Known Drug Allergies Allergy Verified 05/13/23 13:15 [facility] Medical History (Updated 01/01/24 @ 15:19 by Akira Layton MD) Diarrhea ?R19.7 - Diarrhea, unspecified (ICD-10) Exam Narrative: Exam Narrative: Constitutional: He appears frail and chronically ill. He is alert but not a good historian. Unclear if he is not a good historian because of hearing problems or if he is actually a little bit confused. Sometimes he gets a bit shaky on the bed which apparently is a manifestation of pain. He is not having seizures.. HENT: Head: Atraumatic. Nose: Nose normal. Mouth/Throat: Oral mucosa is clear but dry no trismus. Visualized pharynx is normal. Eyes: Conjunctivae normal. EOM normal. Pupils equal, round, and reactive to light. No scleral icterus. Neck: Normal range of motion. Neck supple. No tracheal deviation present. No JVD Cardiovascular: Normal rate, regular rhythm. No gallop. No friction rub. No murmur heard. Symmetric radial artery pulses . Difficult to feel DP and PT pulses due to overlying edema. He does have normal cap refill in both feet. Pulmonary/Chest: Frequent wet sounding but nonproductive cough. Requires assist of 2 to sit up for posterior lung exam. Bibasilar rales and rhonchi. Apices are fairly clear. Breathing looks mildly labored but he is not markedly tachypneic or using accessory muscles. No tenderness. Abdominal: Soft. Bowel sounds normal. No distension. No mass. Epigastric tenderness. No rebound. No guarding. Musculoskeletal: RUE: Normal range of motion. No tenderness. No deformity LUE: Normal range of motion. No tenderness. No deformity RLE: Normal range of motion. No edema. No tenderness. No deformity LLE: Normal range of motion. No edema. No tenderness. No deformity Neurological: Alert and oriented to person, place, and month but not date.. Generalized weakness but no focal strength deficit.. CN II-VII intact. No sensory deficit. GCS eye subscore is 4. GCS verbal subscore is 5. GCS motor subscore is 6. Normal coordination Skin: Skin is warm and dry. Skin appears pale. No mottling or pallor or diaphoresis. No rash noted. Normal capillary refill. Psychiatric: Flat affect because of weakness. Limited. Const: Vital Signs, click to edit/add: Vital Signs - 24 hr 01/01/24 13:00 01/01/24 13:05 01/01/24 13:06 Temperature 97.2 F L Pulse Rate 85 85 Pulse Rate [Pulse Oximeter] 85 Respiratory Rate 20 Blood Pressure 90/54 L Blood Pressure [Ri ght Upper Arm] 90/54 L Pulse Oximetry 97 95 96 Oxygen Delivery Me thod Room Air 01/01/24 13:15 01/01/24 13:28 01/01/24 13:30 Temperature Pulse Rate 90 85 89 Pulse Rate [Pulse Oximeter] Respiratory Rate Blood Pressure 95/53 L Blood Pressure [Ri ght Upper Arm] Pulse Oximetry 96 96 96 Oxygen Delivery Me thod 01/01/24 13:31 01/01/24 13:45 01/01/24 13:46 Temperature Pulse Rate 86 82 82 Pulse Rate [Pulse Oximeter] Respiratory Rate Blood Pressure 95/50 L 99/55 L Blood Pressure [Ri ght Upper Arm] Pulse Oximetry 96 98 96 Oxygen Delivery Me thod 01/01/24 14:01 01/01/24 14:53 01/01/24 14:56 Temperature Pulse Rate Pulse Rate [Pulse Oximeter] Respiratory Rate Blood Pressure 95/59 L 72/42 L 84/55 L Blood Pressure [Ri ght Upper Arm] Pulse Oximetry Oxygen Delivery Me thod 01/01/24 15:01 01/01/24 15:16 01/01/24 15:39 Temperature Pulse Rate 89 84 Pulse Rate [Pulse Oximeter] Respiratory Rate 20 24 Blood Pressure 96/52 L 100/64 101/60 Blood Pressure [Ri ght Upper Arm] Pulse Oximetry Oxygen Delivery Me thod 01/01/24 15:46 01/01/24 15:49 Temperature Pulse Rate 82 84 Pulse Rate [Pulse Oximeter] Respiratory Rate 18 Blood Pressure 101/56 L Blood Pressure [Ri ght Upper Arm] Pulse Oximetry 97 Oxygen Delivery Me thod Course Vital Signs Vital signs: Initial Vital Signs Temperature 97.2 F L 01/01/24 13:00 Temperature Source Temporal Artery Scan 01/01/24 13:00 Pulse Rate 85 01/01/24 13:00 Respiratory Rate 20 01/01/24 13:00 Blood Pressure 90/54 L 01/01/24 13:00 Blood Pressure Mean 66 L 01/01/24 13:00 Pulse Oximetry 97 01/01/24 13:00 Oxygen Delivery Method Room Air 01/01/24 13:00 Vital Signs Temperature 97.2 F L 01/01/24 13:00 Pulse Rate 85 01/01/24 13:00 Respiratory Rate 20 01/01/24 13:00 Blood Pressure 90/54 L 01/01/24 13:00 Pulse Oximetry 97 01/01/24 13:00 Oxygen Delivery Method Room Air 01/01/24 13:00 Temperature 97.2 F L 01/01/24 13:00 Pulse Rate 84 01/01/24 15:49 Respiratory Rate 18 01/01/24 15:46 Blood Pressure 101/56 L 01/01/24 15:46 Pulse Oximetry 97 01/01/24 15:49 Oxygen Delivery Method Room Air 01/01/24 13:00 Medications Administered Medications: Generic Name Dose Route Start Last Admin Trade Name Freq PRN Reason Stop Dose Admin Potassium Chloride/Sodium Chloride 1,000 mls @ 200 mls/hr 01/01/24 14:52 01/01/24 15:13 0.9 % Sodium Ch + Kcl 20 Meq/L IV 200 mls/hr .Q5H LOUANN Administration Vancomycin/PEG/NADA/Lysine/Water 1.25 gm in 250 mls @ 200 mls/hr 01/01/24 15:00 01/01/24 15:13 Vancomycin 1.25 Gm/250 Ml IVPB 01/01/24 16:14 200 mls/hr ONCE ONE Administration Protocol Discontinued Medications Generic Name Dose Route Start Last Admin Trade Name Freq PRN Reason Stop Dose Admin Fentanyl 25 mcg 01/01/24 14:01 01/01/24 14:53 Fentanyl 100 Mcg/2 Ml Inj IVP 01/01/24 14:02 25 mcg ONCE ONE Administration Sodium Chloride 500 mls @ 500 mls/hr 01/01/24 14:01 01/01/24 14:52 0.9 % Sodium Chloride 500 Ml IV 01/01/24 15:00 500 mls/hr .Q1H ONE Administration Potassium Chloride 10 meq in 100 mls @ 100 mls/hr 01/01/24 14:16 01/01/24 14:52 Potassium Chloride IVPB 01/01/24 15:15 100 mls/hr ONCE ONE Administration Medical Decision Making [facility] Narrative Medical decision making narrative: 83-year-old gentleman with a complex past medical history presenting to the ER today with generalized weakness, cough, poor oral intake, generalized body aches, mild confusion. 1. Neuro. Has nonfocal confusion. No focal deficits. Is not anticoagulated. Head CT negative for any acute hemorrhage. No obvious brain Mets or other abnormalities on brain imaging. No hydrocephalus. Blood glucose is normal at 100. No hypoglycemia. 2. Renal. Does have c chronic renal insufficiency with a baseline creatinine reported to be about 1.8-1.9. Today creatinine is more than tripled up to 6.3. BUN is also elevated at 185. Suspect that the azotemia is probably contributing to his nonfocal confusion. Cause of renal insufficiency is unclear. Suspect probably pre renal due to chronic use of furosemide as well as chronic diarrhea. Labs show hyponatremia, low chloride, low bicarb. Venous blood gas shows a normal pH. Low pCO2, suggesting a respiratory compensation for a metabolic acidosis. CT scan is obtained to look for obstructing stones or other post renal cause and no post renal obstruction or hydronephrosis. No obvious inflammatory change around the bladder. 3. Hypokalemia Although his renal failure, potassium is actually low at 1.9. Therefore we are aggressively supplementing potassium here in the ER with sodium chloride 10 mEq per hour IV. He is not really able to take oral supplements at this time. Will also add potassium to his maintenance normal saline IV. EKG shows left axis deviation, right bundle-branch block and almost appears to be a sine wave pattern as you would expect to see with hyperkalemia. 4. Hyponatremia. Likely related to dehydration, GI losses. Unclear if it is acute or chronic. 5. Anemia. Patient does have reported anemia. Hemoglobin today is 8.9, similar to last year. No recent black or bloody stools. Appears to be chronic 6. Respiratory/cough. Patient does have a 6 month history of productive cough. No wheezing or bronchospasm. Nonsmoker. Lung sounds filled with fluid in the bases. Given overall weakness I did not think you would be able to participate well with chest x-ray. We obtain noncontrast chest CT (no contrast due to renal failure) which shows shows a masslike spiculated nodule in the right lower lobe it is either a pneumonia or a malignancy. Started on antibiotics which would cover pneumonia. After ordering blood culture, we Ordered cefepime, azithromycin, vancomycin. COVID and influenza negative. 7. Infectious disease. Is not febrile but does have marked leukocytosis with a white count of 22. This is up from baseline and suggestive for an acute infection. Started on cefepime and vancomycin for sepsis of unknown etiology. Cefepime chosen over Zosyn due to potential nephrotoxicity. 8. Cardiac. Not having any chest pain. EKG shows widened QRS and abnormal T-waves likely due to the QRS changes. No definite ischemia or STEMI. Troponin is normal. 9. Disposition and care planning. Before labs were back I did have a discussion with this patient and his family about goals of care and advanced directive. The patient's confirms that he is DNR/DNI and would not want dialysis or any surgeries. They would want him to be hospitalized for IV fluids, IV antibiotics and medical management. In seeing his abnormal labs I discussed with our hospitalist, Yohana Eisenberg. Given marked renal failure and multiple electrolyte disturbances she recommends transfer to hospital with Nephrology consultation services. She does not think the patient is appropriate to stay here at [place], even if he is primarily going to be IV fluids, IV antibiotics, and comfort care. After seeing his labs and discussed with the hospital side a long conversation with the patient and his family. We discussed that he is very ill and I am concerned that he could because he has renal failure and other problems. patient's is unhappy with being transferred but ultimately is accepting. His son is supportive of transfer. Patient is accepted by hospitalist, Dr. Fam from [facility]. Unfortunately there are no beds at [facility] in [place] so [place] transfer center recommends that we send him to [facility]. Lab Data Labs: Lab Results 01/01/24 01/01/24 01/01/24 Range/Units 12:40 13:20 13:28 WBC 22.40 H (4.50-11.00) K/uL RBC 3.01 L (4.30-5.90) m/uL Hgb 8.9 L (13.5-17.5) gm/dL Hct 26.6 L (37.0-53.0) % MCV 88 (80-100) fL MCH 30 (26-34) pg MCHC 34 (32-36) gm/dL RDW Coeff of [place] 14.9 (11.5-15.5) % Plt Count 426 (140-440) K/uL Neut % (Auto) 88.9 H (42.0-72.0) % Lymph % (Auto) 2.5 L (20-44) % Treasure % (Auto) 4.8 (0.0-11.0) % Eos % (Auto) 0.5 (0.0-7.0) % Baso % (Auto) 0.1 (0.0-3.0) % Neut # (Auto) 19.90 H (1.7-7.0) K/uL Lymph # (Auto) 0.60 L (0.90-2.90) K/uL Treasure # (Auto) 1.10 H (0.00-0.90) K/UL Eos # (Auto) 0.10 (0.00-0.50) K/uL Baso # (Auto) 0.00 (0.00-0.30) K/uL Abs Immat Gran (auto) 0.70 H (0.00-0.30) K/uL Imm/Tot Granulo (auto) 3.2 % Diff Slide Review Acceptable Review (Acceptable) VBG pH 7.371 (7.32-7.43) VBG pCO2 24 L (40-50) mmHG VBG pO2 129.0 H (25-47) mmHG VBG HCO3 14 L (21-28) mmol/L Sodium (135-149) mmol/L Potassium (3.6-5.1) mmol/L Chloride (96-114) mmol/L Carbon Dioxide (20-32) mmol/L Anion Gap (7-15) mEq/L BUN (7-30) mg/dL Creatinine (0.5-1.5) mg/dL Estimated Creat Clear Estimated GFR ml/min Glucose (60-115) mg/dL Lactate Calcium (8.4-10.6) mg/dL Troponin I 0.02 (0.01-0.04) ng/mL NT-Pro-B Natriuret Pep 1900 pg/mL SARS-CoV-2 (PCR) Negative SARS-CoV-2 (Negative) Influenza Type A (PCR) Negative PCR FLU A (Negative) Influenza Type B (PCR) Negative PCR FLU B (Negative) RSV (PCR) Negative PCR RSV (Negative) 01/01/24 Range/Units 13:34 WBC (4.50-11.00) K/uL RBC (4.30-5.90) m/uL Hgb (13.5-17.5) gm/dL Hct (37.0-53.0) % MCV (80-100) fL MCH (26-34) pg MCHC (32-36) gm/dL RDW Coeff of [place] (11.5-15.5) % Plt Count (140-440) K/uL Neut % (Auto) (42.0-72.0) % Lymph % (Auto) (20-44) % Treasure % (Auto) (0.0-11.0) % Eos % (Auto) (0.0-7.0) % Baso % (Auto) (0.0-3.0) % Neut # (Auto) (1.7-7.0) K/uL Lymph # (Auto) (0.90-2.90) K/uL Treasure # (Auto) (0.00-0.90) K/UL Eos # (Auto) (0.00-0.50) K/uL Baso # (Auto) (0.00-0.30) K/uL Abs Immat Gran (auto) (0.00-0.30) K/uL Imm/Tot Granulo (auto) % Diff Slide Review (Acceptable) VBG pH (7.32-7.43) VBG pCO2 (40-50) mmHG VBG pO2 (25-47) mmHG VBG HCO3 (21-28) mmol/L Sodium 124 L* (135-149) mmol/L Potassium 1.9 L* (3.6-5.1) mmol/L Chloride 95 L (96-114) mmol/L Carbon Dioxide 13 L (20-32) mmol/L Anion Gap 16 H (7-15) mEq/L BUN 185 H (7-30) mg/dL Creatinine 6.3 H (0.5-1.5) mg/dL Estimated Creat Clear 6.32 Estimated GFR 8 ml/min Glucose 100 (60-115) mg/dL Lactate Cancelled Calcium 7.3 L (8.4-10.6) mg/dL Troponin I (0.01-0.04) ng/mL NT-Pro-B Natriuret Pep pg/mL SARS-CoV-2 (PCR) (Negative) Influenza Type A (PCR) (Negative) Influenza Type B (PCR) (Negative) RSV (PCR) (Negative) Imaging Data CT Chest/Ab/Pelvis: Attestation: I have reviewed the pertinent imaging results. Radiologist's impression: IMPRESSION: 1. Masslike and spiculated nodular consolidation in the right lower lobe, concerning for pneumonia or bronchogenic carcinoma. At a minimum, CT follow-up is required. More immediate PET-CT or tissue sampling could also be considered. 2. Small to moderate partially loculated right pleural effusion. 3. No acute intra-abdominal or pelvic abnormality. 4. Colonic diverticulosis without evidence of acute diverticulitis. ECG Data Attestation: I personally reviewed and interpreted this ECG as follows: Interpretation: Normal sinus rhythm with PVCs Rate: 86 MD: 184 QRS axis: Left axis deviation. Right bundle-branch block. Widened QRS. QRS duration 144 ST segment/T wave: He has ST segment elevations in V4-V6 as well as 2, 3, AVF which are discordant from his wide deep QRSs. Concern for possible sine wave pattern and hyperkalemia. QTc: [] Discharge Plan Discharge Clinical Impression: FRANCISCO (acute kidney injury), Anemia, Hyponatremia, Weakness, Pulmonary nodule, Pneumonia Patient Disposition: Xfer [place] Prescriptions: No Action losartan-hydrochlorothiazide 100-25 mg tablet 1 tab PO QDAY furosemide 20 mg tablet 40 mg PO QAM atorvastatin 10 mg tablet 10 mg PO QHS multivitamin [Daily Multi-Vitamin] Tablet 1 tab PO QAM omeprazole 20 mg tablet,delayed release (DR/EC) 10 mg PO QDAY ascorbic acid (vitamin C) 1,000 mg tablet 1,000 mg PO QDAY cholecalciferol (vitamin D3) 50 mcg (2,000 unit) capsule 50 mcg PO QDAY acetaminophen 650 mg tablet 650 mg PO TID PRN ferrous sulfate [FeroSul] 325 mg (65 mg iron) tablet 325 mg PO QDAY diphenoxylate-atropine [Lomotil] 2.5-0.025 mg tablet 1 tab PO TID PRN (Reason: diarrhea) Qty: 60 2RF Stand Alone Forms: MyHealth Info Instructions
[2024-01-01 13:52] LABS: Chloride* 95 mmol/L (96-114)
[2024-01-01 13:55] LABS: Anion Gap 16 mEq/L (7-15); Carbon Dioxide* 13 mmol/L (20-32); Creatinine* 6.3 mg/dL (0.5-1.5); Est. Creatinine Clearance* 6.32; Estimated Glomerular Filt Rate 8 ml/min; Glucose* 100 mg/dL (60-115)
[2024-01-01 13:56] LABS: Calcium* 7.3 mg/dL (8.4-10.6)
--- NOTE | 2024-01-01 14:01 | CRLHL7_ITS ---
For Patients: As a result of the Century Cures Act, medical imaging exams and procedure reports are released immediately into your electronic medical record. You may view this report before your referring provider. If you have questions, please contact your health care provider. INDICATIONS: Weakness. Confusion. Renal insufficiency. Cough. Body aches. Abdominal pain. TECHNIQUE: CT chest, abdomen and pelvis acquired without contrast. COMPARISON: Renal ultrasound 02/04/2023. FINDINGS: Chest: Small to moderate right pleural effusion with suspected loculation in the major and minor fissures. No left pleural effusion or pericardial effusion. No pathologic lymphadenopathy. Aortic atherosclerosis. Unenhanced thoracic aorta and main pulmonary arteries are normal in caliber. Coronary artery calcifications. Heart size is within normal limits. Small hiatal hernia. Soft tissues of the thoracic wall are unremarkable. No pneumothorax. Secretions in the distal trachea and proximal mainstem bronchi. Dense rounded masslike and spiculated nodular consolidation in the right lower lobe, for example on axial image 68 of series 3. Additional dense medial right lower lobe consolidation. Abdomen: The unenhanced liver, spleen, pancreas and adrenal glands are unremarkable. No urolithiasis or hydronephrosis. Bilateral simple renal cysts measure up to 4.2 cm on the left. No calcified gallstones or biliary ductal dilatation. No evidence of obstruction or acute appendicitis. Colonic diverticulosis without evidence of acute diverticulitis. Eventration of the midline anterior abdominal wall with small superimposed fat containing umbilical hernia. No inflammatory change associated with this finding. No free air or free fluid. No pathologic lymphadenopathy. Atherosclerotic disease. No abdominal aortic aneurysm. Pelvis: Prostatomegaly. The bladder as imaged is unremarkable. Sigmoid diverticulosis without evidence of acute diverticulitis. Bone windows: Demineralization, degenerative changes and chronic compression deformities of the spine. No acute or suspicious abnormality. IMPRESSION: 1. Masslike and spiculated nodular consolidation in the right lower lobe, concerning for pneumonia or bronchogenic carcinoma. At a minimum, CT follow-up is required. More immediate PET-CT or tissue sampling could also be considered. 2. Small to moderate partially loculated right pleural effusion. 3. No acute intra-abdominal or pelvic abnormality. 4. Colonic diverticulosis without evidence of acute diverticulitis. Dictated by Michel White MD @ 01/01/2024 3:02:47 PM Please note that all CT scans at this facility use dose modulation, iterative reconstruction, and/or weight-based dosing when appropriate to reduce radiation dose to as low as reasonably achievable. Dictated by: Michel White MD @ 01/01/2024 15:03:17 (Electronically Signed)
--- NOTE | 2024-01-01 14:01 | CRLHL7_ITS ---
For Patients: As a result of the Century Cures Act, medical imaging exams and procedure reports are released immediately into your electronic medical record. You may view this report before your referring provider. If you have questions, please contact your health care provider. INDICATION: Weakness. Confusion. Renal insufficiency. Cough. Body aches. TECHNIQUE: CT head without contrast. COMPARISON: None. FINDINGS: Generalized volume loss and ill-defined low-attenuation in the periventricular and subcortical white matter. Intracranial atherosclerosis. No mass effect or midline shift. No hydrocephalus. No CT evidence of acute hemorrhage or infarction. No abnormal extra-axial fluid collection. Bone windows show no acute calvarial fracture. Moderate right maxillary sinus opacification with mild bubbly secretions and mild cortical thickening. Near complete opacification of the right anterior ethmoid air cells and frontal sinus. IMPRESSION: 1. No acute intracranial abnormality. 2. Generalized volume loss and changes of chronic small vessel ischemic disease. 3. Chronic right paranasal sinus disease. Dictated by Michel White MD @ 01/01/2024 2:47:54 PM Please note that all CT scans at this facility use dose modulation, iterative reconstruction, and/or weight-based dosing when appropriate to reduce radiation dose to as low as reasonably achievable. Dictated by: Michel White MD @ 01/01/2024 14:48:07 (Electronically Signed)
[2024-01-01 14:07] LABS: Sodium* 124 mmol/L (135-149)
[2024-01-01 14:08] LABS: Potassium* 1.9 mmol/L (3.6-5.1)
[2024-01-01 14:10] LABS: HCO3 VBG 14 mmol/L (21-28); PCO2 VBG 24 mmHG (40-50); pH VBG 7.371 (7.32-7.43)
[2024-01-01 14:15] LABS: Basophils Percent Auto 0.1 % (0.0-3.0); Eosinophils Percent Auto 0.5 % (0.0-7.0); Hematocrit 26.6 % (37.0-53.0); Hemoglobin* 8.9 gm/dL (13.5-17.5); Immature Granulocytes Pct Auto 3.2 %; Lymphocytes Percent Auto 2.5 % (20-44); Mean Corpuscular HGB Conc 34 gm/dL (32-36); Mean Corpuscular Hemoglobin 30 pg (26-34); Mean Corpuscular Volume 88 fL (80-100); Monocytes Percent Auto 4.8 % (0.0-11.0); Neutrophils Percent Auto 88.9 % (42.0-72.0); Platelet Count* 426 K/uL (140-440); RDW Coefficient of Variation % 14.9 % (11.5-15.5); Red Blood Count 3.01 m/uL (4.30-5.90)
[2024-01-01 14:25] LABS: PCR FLU A Negative PCR FLU A (Negative); PCR FLU B Negative PCR FLU B (Negative); PCR RSV Negative PCR RSV (Negative); SARS PCR* Negative SARS-CoV-2 (Negative)
[2024-01-01 14:29] LABS: NT Pro B Type NatriureticPept* 1900 pg/mL
[2024-01-01 14:30] LABS: Troponin I* 0.02 ng/mL (0.01-0.04)
[2024-01-01 14:45] LABS: Slide Review Reflex Yes
[2024-01-01 14:51] LABS: Blood Urea Nitrogen* 185 mg/dL (7-30)
[2024-01-01] MEDS: 0.9 % SODIUM CHLORIDE 500 ML 500 ML IV (14:52)
[2024-01-01] MEDS: POTASSIUM CHLORIDE 10 MEQ/100 ML PIGGYBACK 100 MEQ IVPB ×2 (14:52→18:44)
[2024-01-01] MEDS: fentaNYL 100 MCG/2 ML inj 25 MCG IVP (14:53)
[2024-01-01] MEDS: 0.9 % SODIUM CH + KCL 20 mEq/L 1,000 ML 200 ML IV (15:13)
[2024-01-01] MEDS: VANCOMYCIN 1.25 GM/250 ML 1.25 GM/250 ML PIGGYBACK IVPB (15:13)
[2024-01-01 15:51] LABS: Slide Review Acceptable Review (Acceptable)
--- NOTE | 2024-01-01 15:51 | ED.NURSE ---
IV attempt x2 for me and primary nurse x2. Vancomycin started without cultures due to hard venous access. MD updated and anesthesia with be paged for assistance.
[2024-01-01] MEDS: HYDROmorphone 0.5 mg/0.5 ml inj 0.2 MG IVP (16:17)
[2024-01-01] MEDS: AZITHROMYCIN 500 MG in 0.9 % SODIUM CHLORIDE 250 ml 250 ML 255 MG IVPB (16:25)
[2024-01-01 16:32] LABS: Magnesium* 1.4 mg/dL (1.5-2.6)
[2024-01-01 16:47] LABS: Lactate* 0.9 mmol/L (0.5-1.9)
[2024-01-01] MEDS: CEFEPIME HCL 1 GM in 0.9 % SODIUM CHLORIDE Mini-bag 100 ML IVPB (16:47)
[2024-01-01 17:31] LABS: Potassium* 2.3 mmol/L (3.6-5.1)
== END 2024-01-01 19:30 | disposition home or self-care (01) ==
PROVIDERS: Emergency Provider Emergency Medicine
DX: N17.9 Acute kidney failure, unspecified (principal); E87.1 Hypo-osmolality and hyponatremia; R91.1 Solitary pulmonary nodule; J18.9 Pneumonia, unspecified organism
CPT/HCPCS: 36415; 70450; 71250; 74176; 80048; 81001; 82803; 83605; 83735; 83880; 84132; 84484; 85025; 87040; 87493; 87631; 93005; 96365; 96366; 99285; 99291; J0456; J0692; J1171; J3010; J3372; J3480; J7030; J7050

== ENCOUNTER 2024-01-01 19:20 | Outpatient (CLI) | payer MEDICARE, SELFPAY ==
--- OUTSIDE RECORDS SUMMARY | 2024-01-08 01:31 | XMS_ITS | Continuity of Care Document ---
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 Name Role Phone Jovan Villalba MD Allergies, Adverse Reactions, Alerts Substance Reaction Status Criticality No Known allergies Medications Medication Instructions Dosage Effective Dates (start - stop) Status Comments Aleve 220 mg Tab Take two tablets by mouth daily - Active Lipitor 20 mg Tab Take one tablet by m outh daily - Active Procedures Procedure Date Ercp; W/sphincterotomy/papillo Ercp; W/endo Retro Remov Stone Init Hosp-da E&m Mod Severity 2 Colonoscopy Flex; Dx (sep Advance Directives Directive Yes / No Effective Date File Name No Information Encounters Encounter Description Practice Location Reason(s) For Visit Diagnoses Date Provider Providers Copied on Encounter [facility], [address] [address], [place], [place], [id number], [place] tel:[phone] [facility] No Information 4 Florencio Aldana. [address], [id number], [place]. tel:[phone] [facility], [address] [address], [place], [place], [id number], [place] tel:[phone] [facility] No Information 2 Princess Rodriguez [address], [id number], [place]. tel:[phone] Referring Provider: Tate SANTIZO, [address] [place], [address]. tel:[phone] Init Hosp-da E&m Mod Severity [facility], [address] [address], [place], [place], [id number], [place] tel:[phone] [facility] No Information 0202 [address] Argelia Grant. [address] [facility] [address], [place], [id number], [place]. tel:[phone] Referring Provider: Tatert Marianela FREY Shayne, [address] [place], [address]. tel:[phone] [facility], [address] [address], [place], [place], [id number], [place] tel:[phone] [facility] Colon Cancer screening 0-200 6 No Information Family History Family Member Type Diagnosis Age At Onset No Information Payers Payer name Insurance type Covered green party ID Authoriza tirojelio(s) No Information Social History Type Description Quantity Date Captured Comments Sex Male Smoking Status No Information Chief Complaint And Reason For Visit No Information Reason For Referral Reason For Referral No Information History Of Present Illness Encounter Date Complaint History Of Prese nt Illness No Information Functional Status Date Functional Assessmen t No Information Instructions Date Instruction Additional Infor mation No Information Assessments Type Assessment Date No Information Patient Care Teams Name Effective Dates (start - stop) Status Members No Information
--- OUTSIDE RECORDS SUMMARY | 2024-01-08 01:31 | XMS_ITS | Clinical Summary ---
Author Organization [facility] Address [address] [place] [address] Care Team Providers Care Transverse Abdominal Muscle Surgeon Name Role Phone Elsewhere, Pcp Primary Care Provider Unavailabl e Source Comments Patient records contain information from all sites at [facility]. For routine questions regarding patient records, call [phone] during business hours, M-F 8:00 AM - 5:00 PM Central Time. Record requests for emergency care only can be directed to [phone] at any time.[facility] Allergies No known active allergies Medications ferrous sulfate 325 mg (65 mg iron) DR tablet Take 1 tablet (65 mg of iron total) by mouth daily. 90 tablet 3 01/29/20 23 Suspended Additional Information Patient taking differently: 130 mg of ironoral Daily, Reported on 01/04/2024 omeprazole (PriLOSEC) [address] capsule Take 20 mg by mouth daily as needed. 07/30/19 23 024 Discontinued (Therapy completed) multivitamin tablet Take 1 tablet by mouth daily. Suspended montelukast (Singulair) 10 mg tablet Take 1 tablet by mouth at bedtime. 06/01/19 24 024 Discontinued (Therapy completed) losartan-hydro CHLOROthiazide (Hyzaar) 100-25 mg per tablet Take 1 tablet by mouth daily. 12/16/19 24 Suspended furosemide (Lasix) 20 mg tablet Take 60 mg by mouth daily. 09/30/19 24 Suspended diphenoxylate- atropine (LomotiL) 2.5-0.025 mg per tablet Take 1 tablet by mouth 3 (three) times a day as needed for diarrhea. 06/01/19 24 Suspended cholecalcifero l, vitamin D3, 25 mcg (1,000 Unit) tablet Take 25 mcg by mouth daily. Suspended atorvastatin (Lipitor) 10 mg tablet Take 10 mg by mouth at bedtime. 11/02/19 24 Suspended acetaminophen (TylenoL) 500 mg tablet Take 1,000 mg by mouth every 6 (six) hours as needed for pain. Suspended ascorbic acid, vitamin C, (Vitamin C) 1,000 mg tablet Take 1,000 mg by mouth daily. Suspended omega-3 fatty acids-fish oil 300-1,000 mg per capsule Take 1 g by mouth daily. Suspended UNABLE TO FIND Take 1 each by mouth daily. 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 01/04/2024 7:40 PM FELT COVERER Ancillary Procedure Department of Nursing Arrived 01/02/2024 3:30 PM FELT COVERER Ancillary Procedure Department of General Surgery 01/01/2024 8:59 PM FELT COVERER - Present Hospital Encounter [facility], Fourth Floor [address] [place] [address] Frank Mccall M.D. Octavio Morton M.B., Ch.Anibal. Jeremías Fernandez M.D. Chapito Velazquez D.O. Fausto Bey M.D. Failure Renal Acute (Acute Kidney Injury) (HCC) (Primary Dx) 01/01/2024 Intake [facility] from Last 3 Months Immunizations Name Administration Dates Next Due influenza trivalent high dose (HD)(PF) 4(Deferred: Other) Social History Tobacco Use Types Packs/Day Years Used Date Smoking Tobacco: Never Assessed Nutrition Answer Date Recorded Nutrition: EVOO Fat Source Unknown 12/24 Nutrition: Servings of Fruits/Vegetables per Day Not on file 12/24/2022 Dental Answer Date Recorded Dental: Regular Dentist Unknown 12/25/19 23 Sex and Gender Information Value Date Recorded Sex Assigned at Not on file Legal Sex Male 3:31 PM FELT COVERER Gender Identity Not on file Sexual Orientation Not on file Last Filed Vital Signs Vital Sign Reading Time Taken Comments Blood Pressure 91/67 01/07/2024 10:31 PM FELT COVERER Pulse 108 01/07/2024 2:28 PM FELT COVERER Temperature 36.5 C (97.7 F) 01/07/2024 10:31 PM FELT COVERER Respiratory Rate 28 01/07/2024 10:31 PM FELT COVERER Oxygen Saturation 96% 01/07/2024 6:00 PM FELT COVERER Inhaled Oxygen Concentration - - Weight 59.1 kg (130 lb 4.7 oz) 01/04/2024 5:46 P M FELT COVERER Height 170.2 cm (5' 7) 01/01/2024 9:10 PM FELT COVERER Body Mass Index 20.41 01/01/2024 9:10 PM FELT COVERER Plan of Treatment Upcoming Encounters Date Type Department Care Team (Late st Contact Info) Description 01/26/2024 1:00 PM FELT COVERER Office Visit Department of Infectious Diseases in [place], [place] [address] [place] [phone] Clara Jones, P.A.-C. [address] [place] [id number] Health Maintenance Due Date Last Done Comments Zoster Vaccines (1 of 2) 1988 DTaP,Tdap,and Td Vaccines (1 - Tdap) 07/11/2011 07/10/2011 RSV vaccine - (32-36 weeks) or 60+ years (1 - 1-dose 75+ series) 2013 Depression Screening (Annual PHQ-2) 02/16/2023 Fall Risk Screen (Annual) 02/16/2023 COVID-19 Vaccine (3 - season) 2023 10/23/2020, 09/10/2020 Influenza Vaccine (#1) 2023 , 11/24/2021, 10/23/2020, Additional history exists Creatinine Level (Kidney Function Test) 01/06/2025 01/07/2024, 01/06/2024, 01/05/2024, Additional history exists Potassium Level 01/06/2025 01/07/2024, 12/18, 01/05/2024, Additional history exists Sodium Level 01/06/2025 01/07/2024, 12/18, 01/05/2024, Additional history exists Pneumococcal vaccine (65+ years) Completed 11/25/2017, 12/18/2010 IPV Vaccines Aged Out No longer eligi ble based on patient's age to complete this topic Procedures * The patient is currently admitted. The information in this section might not be complete until the patient is discharged. Procedure Name Priority Date/Time Associated Diagnosis Comments HEMOGLOBIN, B Timed 01/07/2024 3:50 PM FELT COVERER DX CHEST 1 VIEW RAD - Routine (most inpatients and all outpatients) 01/07/2024 7:14 AM FELT COVERER MORPHOLOGY EVALUATION Routine 01/07/2024 5:29 AM FELT COVERER PHOSPHORUS (INORGANIC), S Routine 01/07/2024 5:29 AM FELT COVERER MAGNESIUM, S Routine 01/07/2024 5:29 AM FELT COVERER BASIC METABOLIC PANEL, S/P Routine 01/07/2024 5:29 AM FELT COVERER CBC WITH DIFFERENTIAL, B Routine 01/07/2024 5:29 AM FELT COVERER HEPATIC FUNCTION PANEL, S Routine 01/07/2024 5:29 AM FELT COVERER MISCELLANEOUS SENT OUT LAB TEST Routine 01/06/2024 11:36 AM FELT COVERER MISC. [facility] Routine 01/06/2024 10:59 AM FELT COVERER DX CHEST 1 VIEW RAD - Routine (most inpatients and all outpatients) 01/06/2024 7:19 AM FELT COVERER MORPHOLOGY EVALUATION Timed 01/06/2024 5:37 AM FELT COVERER MANUAL DIFFERENTIAL, B Timed 01/06/2024 5:37 AM FELT COVERER MAGNESIUM, S Timed 01/06/2024 5:37 AM FELT COVERER CBC WITH DIFFERENTIAL, B Timed 01/06/2024 5:37 AM FELT COVERER RENAL FUNCTION PANEL, S Timed 01/06/2024 5:37 AM FELT COVERER ECG STAT 01/06/2024 5:32 AM FELT COVERER IR CHEST TUBE PLACEMENT RAD - Routine (most inpatients and all outpatients) 01/05/2024 1:42 PM FELT COVERER CYTOLOGY NON-ECONOMIC SPECIALIST Routine 01/05/2024 12:5 0 PM FELT COVERER GLUCOSE, BODY FLUID Timed 01/05/2024 1 2:50 PM FELT COVERER TRIGLYCERIDES, BF Timed 01/05/2024 12: 50 PM FELT COVERER PROTEIN, TOTAL, BF Timed 01/05/2024 12 :50 PM FELT COVERER PH, PLEURAL FLUID Timed 01/05/2024 12: 50 PM FELT COVERER LACTATE DEHYDROGENASE (LD), BF Timed 01/05/2024 12:50 PM FELT COVERER CELL COUNT AND DIFFERENTIAL, BF Timed 01/05/2024 12:50 PM FELT COVERER BACTERIAL CULTURE, ANAEROBIC + SUSC Timed 01/05/2024 12:50 PM FELT COVERER GRAM STAIN Timed 01/05/2024 12:50 PM FELT COVERER BACTERIAL CULTURE, AEROBIC + SUSC Timed 01/05/2024 12:50 PM FELT COVERER MORPHOLOGY EVALUATION Routine 01/05/2024 5:52 AM FELT COVERER MANUAL DIFFERENTIAL, B Routine 01/05/2024 5:52 AM FELT COVERER BASIC METABOLIC PANEL, S/P Routine 01/05/2024 5:52 AM FELT COVERER CBC WITH DIFFERENTIAL, B Routine 01/05/2024 5:52 AM FELT COVERER PNEUMONIA PANEL, PCR Routine 01/04/2024 7:45 PM FELT COVERER GRAM STAIN Routine 01/04/2024 7:45 PM FELT COVERER BACTERIAL CULTURE, AEROBIC + SUSC, RESP Routine 01/04/2024 7:45 PM FELT COVERER NASAL SCREEN FOR MRSA BY RAPID PCR Routine 01/04/2024 7:45 PM FELT COVERER NURSING IMAGE EXAM Routine 01/04/2024 7: 40 PM FELT COVERER (TTE) 2D ECHO DOPPLER COLOR AND CONTRAST Routine 01/04/2024 10:38 AM FELT COVERER HC URINALYSIS AUTO WO MICRO Routine 01/04/2024 5:56 AM FELT COVERER PROTEIN/CREATININE RATIO, RANDOM, URINE Routine 01/04/2024 5:56 AM FELT COVERER URINALYSIS WITH MICROSCOPIC IF INDICATED, U Routine 01/04/2024 5:56 AM FELT COVERER SODIUM, RANDOM, U Routine 01/04/2024 5:5 6 AM FELT COVERER NT-PRO B-TYPE NATRIURETIC PEPTIDE (BNP), S Routine 01/04/2024 4:56 AM FELT COVERER PARATHYROID HORMONE (PTH), S Routine 01/04/2024 4:56 AM FELT COVERER IRON AND TOT IRON-BINDING CAPACITY, S/P Routine 01/04/2024 4:56 AM FELT COVERER FERRITIN, S Routine 01/04/2024 4:56 AM FELT COVERER BASIC METABOLIC PANEL, S/P Routine 01/04/2024 4:56 AM FELT COVERER CBC WITH DIFFERENTIAL, B Routine 01/04/2024 4:56 AM FELT COVERER CYTOLOGY NON-ECONOMIC SPECIALIST Timed 01/03/2024 5:09 PM FELT COVERER US THORACENTESIS RIGHT WITH IMAGING GUIDANCE RAD - Routine (most inpatients and all outpatients) 01/03/2024 5:04 PM FELT COVERER BASIC METABOLIC PANEL, S/P Timed 01/03/2024 1:56 PM FELT COVERER HEMODIALYSIS Routine 01/03/2024 11:28 AM FELT COVERER BACTERIA / CHERI CULTURE, BLOOD Routine 01/03/2024 10:53 AM FELT COVERER LACTATE FOR SEPSIS WITH REFLEX Routine 01/03/2024 10:52 AM FELT COVERER BACTERIA / CHERI CULTURE, BLOOD Routine 01/03/2024 10:52 AM FELT COVERER ALBUMIN, S/P Routine 01/03/2024 10:51 AM FELT COVERER HEMODIALYSIS Routine 01/03/2024 8:16 AM FELT COVERER VITAMIN D, IMMUNOASSAY, TOTAL, S Routine 01/03/2024 6:42 AM FELT COVERER NT-PRO B-TYPE NATRIURETIC PEPTIDE (BNP), S Routine 01/03/2024 6:42 AM FELT COVERER CALCIUM, IONIZED, S/B Routine 01/03/2024 6:42 AM FELT COVERER PH BLOOD GAS Routine 01/03/2024 6:42 AM FELT COVERER CBC WITH DIFFERENTIAL, B Routine 01/03/2024 6:42 AM FELT COVERER BASIC METABOLIC PANEL, S/P Routine 01/03/2024 6:42 AM FELT COVERER QUANTIFERON-TB GOLD PLUS, B Routine 01/03/2024 6:42 AM FELT COVERER HBC TOTAL AB, SERUM Routine 01/03/2024 6 :42 AM FELT COVERER HBS ANTIBODY, SERUM Routine 01/03/2024 6 :42 AM FELT COVERER HEPATITIS B SURFACE ANTIGEN Routine 01/03/2024 6:42 AM FELT COVERER LEUKEMIA/LYMPHOMA, PHENOTYPE, V Timed 01/03/2024 6:10 AM FELT COVERER CHOLESTEROL, BF Timed 01/03/2024 6:10 AM FELT COVERER GLUCOSE, BODY FLUID Timed 01/03/2024 6 :10 AM FELT COVERER CELL COUNT AND DIFFERENTIAL, BF Timed 01/03/2024 6:10 AM FELT COVERER PROTEIN, TOTAL, BF Timed 01/03/2024 6: 10 AM FELT COVERER LACTATE DEHYDROGENASE (LD), BF Timed 01/03/2024 6:10 AM FELT COVERER M TUBERCULOSIS COMPLEX PCR, V Timed 01/03/2024 6:10 AM FELT COVERER BROAD RANGE BACTERIA PCR AND SEQUENCING Timed 01/03/2024 6:10 AM FELT COVERER BACTERIAL CULTURE, ANAEROBIC + SUSC Timed 01/03/2024 6:10 AM FELT COVERER BACTERIAL CULTURE, AEROBIC + SUSC Timed 01/03/2024 6:10 AM FELT COVERER GRAM STAIN Timed 01/03/2024 6:10 AM FELT COVERER DX CHEST PORTABLE 1 VIEW RAD - Semiurgent (Fast; most ED patients; some inpatients) 01/02/2024 3:59 PM FELT COVERER MC ANE CENTRAL LINE GENERIC PERFORMABLE Routine 01/02/2024 3:47 PM FELT COVERER Failure Renal Acute (Acute Kidney Injury) (HCC) LDA ANE CENTRAL LINE DOUBLE LUMEN ADULT Routine 01/02/2024 3:47 PM FELT COVERER Failure Renal Acute (Acute Kidney Injury) (HCC) ME US GUIDE VASC ACCESS Routine 01/02/2024 3:47 PM FELT COVERER Failure Renal Acute (Acute Kidney Injury) (HCC) ME INS NON-BLAINE CVC >5YR Routine 01/02/2024 3:47 PM FELT COVERER Failure Renal Acute (Acute Kidney Injury) (HCC) GENERAL SURGERY IMAGE EXAM Routine 01/02/2024 3:30 PM FELT COVERER HEMODIALYSIS Routine 01/02/2024 2:44 PM FELT COVERER MAGNESIUM, S Routine 01/02/2024 11:32 AM FELT COVERER BASIC METABOLIC PANEL, S/P Routine 01/02/2024 11:32 AM FELT COVERER US KIDNEYS BILATERAL WITH BLADDER RAD - Routine (most inpatients and all outpatients) 01/02/2024 10:15 AM FELT COVERER DX CHEST PORTABLE 1 VIEW RAD - Semiurgent (Fast; most ED patients; some inpatients) 01/02/2024 4:24 AM FELT COVERER CREATINE KINASE (CK), S Routine 01/02/2024 4:10 AM FELT COVERER ALBUMIN, S/P Routine 01/02/2024 4:10 AM FELT COVERER CALCIUM, IONIZED, S/B Routine 01/02/2024 4:10 AM FELT COVERER PH BLOOD GAS Routine 01/02/2024 4:10 AM FELT COVERER PHOSPHORUS (INORGANIC), S Routine 01/02/2024 3:41 AM FELT COVERER MAGNESIUM, S Routine 01/02/2024 3:41 AM FELT COVERER LACTATE, B STAT 01/02/2024 3:41 AM FELT COVERER NT-PRO B-TYPE NATRIURETIC PEPTIDE (BNP), S Routine 01/02/2024 3:41 AM FELT COVERER VENOUS BLOOD GAS W/COOX, B Routine 01/02/2024 3:41 AM FELT COVERER OSMOLALITY, S Routine 01/02/2024 3:41 AM FELT COVERER CBC WITH DIFFERENTIAL, B Routine 01/02/2024 3:41 AM FELT COVERER BASIC METABOLIC PANEL, S/P Routine 01/02/2024 3:41 AM FELT COVERER ECG Routine 01/02/2024 12:39 AM FELT COVERER OUTSIDE CT BODY Routine 01/01/2024 2:25 [address] FELT COVERER OUT[address]IDE [address] NEURO Routine 01/01/2024 2:20 PM FELT COVERER from Last 3 Months Results * (ABNORMAL) Hemoglobin (01/07/2024 3:50 PM FELT COVERER) [facility] Hemoglobin 9.1(L) 13.2 - 16.6 g/dL 01/07/2024 3:59 PM FELT COVERER [facility] Blood (Blood, Venous) 01/07/2024 3:50 PM FELT COVERER 01/07/2024 3:55 PM FELT COVERER us Chapito Velazquez D.O. LAB BLOOD ADD-ON Final Resul t [facility] [address] [place] [address], [facility] [place] [address] * DX Chest 1 View (01/07/2024 7:14 AM FELT COVERER) Only the most recent of2 resultswithin the time period is included. Anatomical Region Laterality Modality Chest, Thoracic RST LOS, Tho racic ARZ LOS, Thoracic FLA LOS N/A Digital Radiography Impressions 01/07/2024 7:42 AM FELT COVERER No significant change. Narrative 01/07/2024 7:42 AM FELT COVERER EXAM: DX CHEST 1 VIEW COMPARISON: Chest x-ray 01/06/2024 FINDINGS: No acute abnormality and no significant change compared to the prior exam. Chest tube at the lateral aspect of the right lung base. Associated blunting of the right lateral costophrenic angle with infiltrate and/or atelectasis within the adjacent lung. No pneumothorax. Left lung field is clear. No abnormality of the heart or mediastinum. Right internal jugular line with its tip ending within the mid to inferior SVC. No acute osseous abnormality. Degenerative changes of the spine and bilateral glenohumeral joints with superior subluxations of the humeral head suggesting an underlying chronic rotator cuff tears. Procedure Note Tony Rose M.D. - 01/07/2024 EXAM: DX CHEST 1 VIEW COMPARISON: Chest x-ray 01/06/2024 FINDINGS: No acute abnormality and no significant change compared to theprior exam. Chest tube at the lateral aspect of the right lung base.Associated blunting of the right lateral costophrenic angle withinfiltrate and/or atelectasis within the adjacent lung. No pneumothorax. Left lung field is clear. No abnormalityof the heart or mediastinum. Right internal jugular line with its tipending within the mid to inferior SVC. No acute osseous abnormality.Degenerative changes of the spine and bilateral glenohumeral joints with superior subluxations of the humeralhead suggesting an underlying chronic rotator cuff tears. IMPRESSION: No significant change. Fidencio Oliva M.D. IM DIAGNOSTIC IMAGING PROCED URES Final Result * (ABNORMAL) Morphology Evaluation (01/07/2024 5:29 AM FELT COVERER) Only the most recent of3 resultswithin the time period is included. RBC Morphology See Specific Findings 01/07/2024 6:24 AM FELT COVERER MKTO PLT Morphology Normal 01/07/2024 6:24 AM FELT COVERER MKTO PLT Estimate Adequate Adequate 01/07/2024 6:24 AM FELT COVERER MKTO Anisocytosis Slight(A) 01/07/2024 6:24 AM FELT COVERER MKTO Basophilic Stippling Slight(A) 01/07/2024 6:24 AM FELT COVERER MKTO Poikilocytosis Slight(A) Not Seen 01/07/2024 6:24 AM FELT COVERER MKTO Blood 01/07/2024 5:29 AM FELT COVERER 01/07/2024 5:51 AM FELT COVERER us Jeremías Fernandez M.D. LAB BLOOD ADD-ON Final Resul t [facility] [address] [place] [address], [facility] MKTO [facility] [place] [address] * (ABNORMAL) Hepatic Function Panel (01/07/2024 5:29 AM FELT COVERER) Bilirubin, Total, P <0.2 0.0 - 1.2 mg/dL 01/07/2024 6:19 AM FELT COVERER MKTO Bilirubin, Direct, P 0.1 0.0 - 0.3 mg/dL 01/07/2024 6:19 AM FELT COVERER MKTO Aspartate Aminotransferase (AST), P 25 8 - 48 U/L 01/07/2024 6:19 AM FELT COVERER MKTO Alanine Aminotransferase (ALT), P 15 7 - 55 U/L 01/07/2024 6:19 AM FELT COVERER MKTO Alkaline Phosphatase, P 110 40 - 129 U/L 01/07/2024 6:19 AM FELT COVERER MKTO Albumin, P 2.5(L) 3.5 - 5.0 g/dL 01/07/2024 6:19 AM FELT COVERER MKTO Protein, Total, P 5.2(L) 6.3 - 7.9 g/dL 01/07/2024 6:19 AM FELT COVERER MKTO Blood (Blood, Venous) 01/07/2024 5:29 AM FELT COVERER 01/07/2024 5:51 AM FELT COVERER us Jeremías Fernandez M.D. LAB BLOOD ADD-ON Final Resul t [facility] [address] [place] [address], [facility] MKTO [facility] in [place] [address] [place] [address] * (ABNORMAL) CBC with Differential, Blood (01/07/2024 5:29 AM FELT COVERER) Only the most recent of6 resultswithin the time period is included. Hemoglobin 8.7(L) 13.2 - 16.6 g/dL 01/07/2024 6:23 AM FELT COVERER MKTO Hematocrit 26.8(L) 38.3 - 48.6 % 01/07/2024 6:23 AM FELT COVERER MKTO Erythrocytes 2.84(L) 4.35 - 5.65 x10(12)/L 01/07/2024 6:23 AM FELT COVERER MKTO MCV 94.4 78.2 - 97.9 fL 01/07/2024 6:23 AM FELT COVERER MKTO RBC Distrib Width 14.7(H) 11.8 - 14.5 % 01/07/2024 6:23 AM FELT COVERER MKTO Platelet Count 263 135 - 317 x10(9)/L 01/07/2024 6:23 AM FELT COVERER MKTO Leukocytes 14.9(H) 3.4 - 9.6 x10(9)/L 01/07/2024 6:23 AM FELT COVERER MKTO Neutrophils 12.77(H) 1.56 - 6.45 x10(9)/L 01/07/2024 6:23 AM FELT COVERER MKTO Lymphocytes 0.90(L) 0.95 - 3.07 x10(9)/L 01/07/2024 6:23 AM FELT COVERER MKTO Monocytes 0.87(H) 0.26 - 0.81 x10(9)/L 01/07/2024 6:23 AM FELT COVERER MKTO Eosinophils 0.23 0.03 - 0.48 x10(9)/L 01/07/2024 6:23 AM FELT COVERER MKTO Basophils 0.09(H) 0.01 - 0.08 x10(9)/L 01/07/2024 6:23 AM FELT COVERER MKTO Blood (Blood, Venous) 01/07/2024 5:29 AM FELT COVERER 01/07/2024 5:51 AM FELT COVERER us Jeremías Fernandez M.D. LAB BLOOD ADD-ON Final Resul t Performing Organization Address City/[facility]/ZIP Co de Phone Number [facility] [address] [place] [address], [facility] [place][note 2] [address] [place] [address] * Phosphorus Inorganic (01/07/2024 5:29 AM FELT COVERER) Only the most recent of2 resultswithin the time period is included. Phosphorus (Inorganic), P 2.5 2.5 - 4.5 mg/dL 01/07/2024 6:19 AM FELT COVERER TO Blood (Blood, Venous) 01/07/2024 5:29 AM FELT COVERER 01/07/2024 5:51 AM FELT COVERER us Jeremías Fernandez M.D. LAB BLOOD ADD-ON Final Resul t Performing Organization Address [facility] Co de Phone Number [facility] [address] [place] [id number], [facility] [place][note 2] [address] [place] [address] * Magnesium (01/07/2024 5:29 AM FELT COVERER) Only the most recent of4 resultswithin the time period is included. Magnesium, P 1.7 1.7 - 2.3 mg/dL 01/07/2024 6:19 AM FELT COVERER MKTO Blood (Blood, Venous) 01/07/2024 5:29 AM FELT COVERER 01/07/2024 5:51 AM FELT COVERER us Jeremías Fernandez M.D. LAB BLOOD ADD-ON Final Resul t Performing Organization Address City/[facility]/ZIP Co de Phone Number [facility] [address] [place] [address], [place] [address] * (ABNORMAL) Basic Metabolic Panel (01/07/2024 5:29 AM FELT COVERER) Only the most recent of7 resultswithin the time period is included. Potassium, P 3.3(L) 3.6 - 5.2 mmol/L 01/07/2024 6:19 AM FELT COVERER MKTO Sodium, P 141 135 - 145 mmol/L 01/07/2024 6:19 AM FELT COVERER MKTO Chloride, P 105 98 - 107 mmol/L 01/07/2024 6:19 AM FELT COVERER MKTO Bicarbonate, P 24 22 - 29 mmol/L 01/07/2024 6:19 AM FELT COVERER MKTO Anion Gap, P 12 7 - 15 01/07/2024 6:19 AM FELT COVERER MKTO BUN (Blood Urea Nitrogen), P 41(H) 8 - 24 mg/dL 01/07/2024 6:19 AM FELT COVERER MKTO Creatinine 2.01(H) 0.74 - 1.35 mg/dL 01/07/2024 6:19 AM FELT COVERER MKTO Estimated GFR (eGFR) 32(L) >=60 mL/min/BSA 01/07/2024 6:19 AM FELT COVERER MKTO Comment: Estimated GFR calculated using the 2020 CKD_EPI creatinine equation. Calcium, Total, P 8.1(L) 8.8 - 10.2 mg/dL 01/07/2024 6:19 AM FELT COVERER MKTO Glucose, P 108 70 - 140 mg/dL 01/07/2024 6:19 AM FELT COVERER MKTO Blood (Blood, Venous) 01/07/2024 5:29 AM FELT COVERER 01/07/2024 5:51 AM FELT COVERER us Jeremías Fernandez M.D. LAB BLOOD ADD-ON Final Resul t [facility] [address] [place] [address], [place] [address] * [id number] Karius Test for Pathogen Detection - Miscellaneous Test (01/06/2024 11:36 AM FELT COVERER) Test Name Denysius Test for Pathogen Detection 01/06/2024 11:49 AM FELT COVERER MKTO Result Specimen sent out; results to follow DEFAULT 01/06/2024 11:49 AM FELT COVERER MKTO Blood (Blood, Venous) 01/06/2024 11:36 AM FELT COVERER 01/06/2024 11:49 AM FELT COVERER us Sarah Rsoe M.D. LAB MISC ORDERA BLES Final Result [facility] [address] [place] [address], [facility] MKTO [facility] [place] [address] [place] [address] * (ABNORMAL) Manual Differential, Blood (01/06/2024 5:37 AM FELT COVERER) Only the most recent of2 resultswithin the time period is included. Segmented Neutrophils 87(H) 50 - 75 % 01/06/2024 6:34 AM FELT COVERER MKTO Lymphocytes % 1(L) 18 - 42 % 01/06/2024 6:34 AM FELT COVERER MKTO Monocytes 5 2 - 11 % 01/06/2024 6:34 AM FELT COVERER MKTO Eosinophils 3 1 - 3 % 01/06/2024 6:34 AM FELT COVERER MKTO Basophils 1 0 - 2 % 01/06/2024 6:34 AM FELT COVERER MKTO Metamyelocytes 1(H) <1 % 01/06/2024 6:34 AM FELT COVERER MKTO Myelocytes 2(H) <0.5 % 01/06/2024 6:34 AM FELT COVERER MKTO Manual Absolute Neutrophil Count 12.44(H) 1.56 - 6.45 x10(9)/L 01/06/2024 6:34 AM FELT COVERER MKTO Comment: ----ADDITIONAL INFORMATION---- The manual absolute neutrophil count is derived from a manual differential count and therefore is not exactly comparable to the automated absolute neutrophil count. Blood 01/06/2024 5:37 AM FELT COVERER 01/06/2024 5:47 AM FELT COVERER us Vidhya Tovar P.A.-C. LAB BLOOD ADD-ON Final Resu lt [facility] [address] [place] [address], [place] MKTO [facility] in [place] [address] [place] [address] * (ABNORMAL) Renal Function Panel (01/06/2024 5:37 AM FELT COVERER) Potassium, P 3.3(L) 3.6 - 5.2 mmol/L 01/06/2024 6:11 AM FELT COVERER MKTO Sodium, P 142 135 - 145 mmol/L 01/06/2024 6:11 AM FELT COVERER MKTO Chloride, P 104 98 - 107 mmol/L 01/06/2024 6:11 AM FELT COVERER MKTO Bicarbonate, P 25 22 - 29 mmol/L 01/06/2024 6:11 AM FELT COVERER MKTO Anion Gap, P 13 7 - 15 01/06/2024 6:11 AM FELT COVERER MKTO BUN (Blood Urea Nitrogen), P 37(H) 8 - 24 mg/dL 01/06/2024 6:11 AM FELT COVERER MKTO Creatinine 1.91(H) 0.74 - 1.35 mg/dL 01/06/2024 6:11 AM FELT COVERER MKTO Estimated GFR (eGFR) 34(L) >=60 mL/min/BSA 01/06/2024 6:11 AM FELT COVERER MKTO Comment: Estimated GFR calculated using the 2020 CKD_EPI creatinine equation. Calcium, Total, P 8.4(L) 8.8 - 10.2 mg/dL 01/06/2024 6:11 AM FELT COVERER MKTO Glucose, P 92 70 - 140 mg/dL 01/06/2024 6:11 AM FELT COVERER MKTO Albumin, P 2.7(L) 3.5 - 5.0 g/dL 01/06/2024 6:11 AM FELT COVERER MKTO Phosphorus (Inorganic), P 2.7 2.5 - 4.5 mg/dL 01/06/2024 6:11 AM FELT COVERER MKTO Blood (Blood, Venous) 01/06/2024 5:37 AM FELT COVERER 01/06/2024 5:47 AM FELT COVERER us Vidhya Tovar P.A.-C. LAB BLOOD ADD-ON Final Resu lt Performing Organization Address City/[facility]/ZIP Co de Phone Number [facility] [address] [place] [address], [facility] MKTO [facility] in [place] [address] [place] [address] * ECG 12 Lead (01/06/2024 5:32 AM FELT COVERER) Only the most recent of2 resultswithin the time period is included. Ventricular Rate ECG/Min 98 BPM MUSE ME Interval 164 ms MUSE QRSD Interval 128 ms MUSE QT Interval 398 ms MUSE QTC Interval 508 ms MUSE P [place] 52 degrees MUSE R [place] -72 degrees MUSE [place] 53 degrees MUSE 01/06/2024 5:32 AM FELT COVERER 01/06/2024 5:40 AM FELT COVERER Impressions MUSE - 01/06/2024 5:40 AM FELT COVERER Normal sinus rhythm Right bundle branch block with secondary ST-T abnormalities Left anterior fascicular block Bifascicular block Prolonged QT When compared with ECG of 02-Jan-2024 00:39, No significant change was found Reviewed by GABRIELA Roa Narrative Procedure Note Byron Crowley M.D. - 01/06/2024 IMPRESSION: Normal sinus rhythm Right bundle branch block with secondary ST-T abnormalities Left anterior fascicular block Bifascicular block Prolonged QT When compared with ECG of 02-Jan-2024 00:39, No significant change was found Reviewed by GABRIELA Roa us Laura Chavez APRN, C.N.P. ECG ORDERABLES Sury kaye Result Performing Organization Address City/[facility]/ZIP Co de Phone Number MUSE NA * IR Chest Tube Placement (01/05/2024 1:42 PM FELT COVERER) Anatomical Region Laterality Modality Chest, Vascular Intervention al RST LOS, Vascular Interventional ARZ LOS, Vascular Interventional FLA LOS N/A X-Ray Angiography Impressions 01/05/2024 2:17 PM FELT COVERER 1. Right chest tube placement. Narrative 01/05/2024 2:17 PM FELT COVERER EXAM: IR CHEST TUBE PLACEMENT HISTORY: R sided empyema needing chest tube COMPARISON: Intraprocedure images 01/03/2024 PROCEDURAL PERSONNEL: Attending: Shayy Lepe PREPROCEDURE: Patient seen, evaluated, and history reviewed. Discussed risks, benefits, alternatives for procedure, and obtained informed consent. Patient understood the information and questions answered. Immediately prior to starting the procedure, in the presence of the assisting personnel, procedural pause was conducted to verify correct patient identity and verification of procedure to be performed, and as applicable, correct side and site, correct patient position, availability of implants, special equipment, or special requirements, and all image and specimen identification data. The roles and responsibilities of care team members were discussed. The medication list was reviewed and there are no changes to current medications. Patient education provided by a care team automobile assembler. Patient was ready to learn with no apparent learning barriers were identified. Post-procedure care explained; patient expressed understanding of the content. PROCEDURE DETAILS: Sedation: None. Local anesthesia was achieved with lidocaine. Sedation time: None Estimated Blood Loss: Less than 10 mL. TECHNIQUE: Imaging guidance for drain insertion: Ultrasound and fluoroscopy with permanent image storage Access side: Right Catheter: 12 Angolan multipurpose pigtail drain Technique: Image guidance was used to localize the collection. A 5 Angolan Yueh needle catheter was used to access the collection under real time image guidance, and images were saved to PACS. Aspiration yielded purulent fluid. A guidewire was inserted, and the tract was dilated to accommodate a 12 Angolan pigtail drain. The catheter was secured with 2-0 Ethilon suture. The catheter was connected to Pleur-evac Intraprocedural or immediate post-procedural complications: None FINDINGS: Catheter tip location: Final image was demonstrates the catheter tip to be located in the right pleural space Additional observations: N/A PLAN: Follow-up with pulmonology. Procedure Note Shayy Lepe M.D. - 01/05/2024 EXAM: IR CHEST TUBE PLACEMENT HISTORY: R sided empyema needing chest tube COMPARISON: Intraprocedure images 01/03/2024 PROCEDURAL PERSONNEL: Attending: Shayy Lepe PREPROCEDURE: Patient seen, evaluated, and history reviewed. Discussedrisks, benefits, alternatives for procedure, and obtained informedconsent. Patient understood the information and questions answered.Immediately prior to starting the procedure, in the presence of the assisting personnel, procedural pause was conductedto verify correct patient identity and verification of procedure to beperformed, and as applicable, correct side and site, correct patientposition, availability of implants, special equipment, or special requirements, and all image and specimenidentification data. The roles and responsibilities of care team memberswere discussed. The medication list was reviewed and there are no changesto current medications. Patient education provided by a care team automobile assembler. Patient was ready to learn withno apparent learning barriers were identified. Post-procedure careexplained; patient expressed understanding of the content. PROCEDURE DETAILS: Sedation: None. Local anesthesia was achieved with lidocaine. Sedation time: None Estimated Blood Loss: Less than 10 mL. TECHNIQUE: Imaging guidance for drain insertion: Ultrasound and fluoroscopy withpermanent image storage Access side: Right Catheter: 12 Angolan multipurpose pigtail drain Technique: Image guidance was used to localize the collection. A 5 FrenchYueh needle catheter was used to access the collection under real timeimage guidance, and images were saved to PACS. Aspiration yielded purulentfluid. A guidewire was inserted, and the tract was dilated to accommodate a 12 Angolan pigtail drain. Thecatheter was secured with 2-0 Ethilon suture. The catheter was connectedto Pleur-evac Intraprocedural or immediate post-procedural complications: None FINDINGS: Catheter tip location: Final image was demonstrates the catheter tip to belocated in the right pleural space Additional observations: N/A PLAN: Follow-up with pulmonology. IMPRESSION: 1. Right chest tube placement. Fidencio Oliva M.D. IM IR PROCEDURES Final Resul t * Cytology Non-ECONOMIC SPECIALIST (01/05/2024 12:50 PM FELT COVERER) Only the most recent of2 resultswithin the time period is included. 01/07/2024 3:19 PM FELT COVERER HKCY Disclaimer This test has been modified from the public relations specialist's instructions. Its performance characteristics were determined by [facility] in a manner consistent with CLIA requirements. This test has not been cleared or approved by the U.S. Food and Drug Administration. 01/07/2024 3:19 PM FELT COVERER HKCY Report electronically signed by LOLY Schwartz. Ch.B. I verify that I have examined all relevant slides/materials for the specimen(s) and rendered or confirmed the diagnosis. 01/07/2024 3:19 PM FELT COVERER HKCY Gross Description 50 ml of cloudy hubbard fluid received. Specimen fixed at 2:20 pm on 01-05-2024. 2 slides and cell block prepared. 01/07/2024 3:19 PM FELT COVERER HKCY Source A. Pleural, fluid 024 3:19 PM FELT COVERER HKCY Interpretation A. Pleural, fluid (smears/cell block): Negative for malignancy. Acute inflammation. COMMENT Immunohistochemica l stains with appropriate reactive controls was performed on separate slides on cell block. CK7, WT1, calretinin, TTF1, Napsin A, p40, CK20, NKX3.1 and CDX2: Negative Controls reviewed, results acceptable. 01/07/2024 3:19 PM FELT COVERER HKCY Fluid 01/05/2024 12:5 0 PM FELT COVERER 01/06/2024 7:16 AM FELT COVERER us Fidencio Oliva M.D. LAB SURG PATH ORDERABLES Sury l Result [facility] [address] [place] [address], [facility] HKCY [address] [address] * Protein, Total, Body Fluid (01/05/2024 12:50 PM FELT COVERER) Only the most recent of2 resultswithin the time period is included. Protein, Total, BF 2.6 See Comment g/dL 01/06/2024 11:13 AM FELT COVERER DTL Comment: ----ADDITIONAL INFORMATION---- A pleural fluid total protein to serum total protein ratio >0.5 is most consistent with exudative effusion. A peritoneal fluid total protein > 2.5 g/dL in patients with a high serum ascites albumin gradient can be caused by heart failure. A peritoneal fluid total protein > 1.0 g/dL helps to differentiate secondary from spontaneous bacterial peritonitis in conjunction with other laboratory, imaging, and clinical findings. All other fluids refer to www.[employer].com for further interpretive information. This test has been modified from the public relations specialist's instructions. Its performance characteristics were determined by [facility] in a manner consistent with CLIA requirements. This test has not been cleared or approved by the U.S. Food and Drug Administration. Fluid Type, Protein, Total PLEURAL 01/06/2024 10:14 AM FELT COVERER DTL Fluid (Pleural Fluid) 01/05/2024 12:50 PM FELT COVERER 01/06/2024 10:01 AM FELT COVERER us Fidencio Oliva M.D. LAB BODY FLUIDS AND STOOLS OR DERABLES Final Result [facility] [address] [place] [address], [facility] [address] [place] [address] * Cell Count and Differential, Body Fluid (01/05/2024 12:50 PM FELT COVERER) Only the most recent of2 resultswithin the time period is included. Fluid Type Pleural/Thor acentesis 01/05/2024 2:19 PM FELT COVERER MKTO Gross Appearance Purulent 01/05/20 24 2:40 PM FELT COVERER MKTO Total Nucleated Cells [id number] /[id number] 01/05/2024 2:40 PM FELT COVERER MKTO Comment: ----REFERENCE VALUE---- Synovial: <150 Peritoneal: <500 Pleural: <500 Pericardial: <500 ----ADDITIONAL INFORMATION---- This test has been modified from the public relations specialist's instructions. Its performance characteristics were determined by [facility] in a manner consistent with CLIA requirements. This test has not been cleared or approved by the U.S. Food and Drug Administration. Neutrophils 100 % 01/05/2024 3:04 PM FELT COVERER MKTO Comment: ----REFERENCE VALUE---- Synovial: <25% Peritoneal: <25% Pleural: <25% Pericardial: <25% Reviewed by: Dr. Morton 01/05/2024 3:05 PM FELT COVERER MKTO Fluid (Pleural Fluid) 01/05/2024 12:50 PM FELT COVERER 01/05/2024 1:47 PM FELT COVERER Fidencio Oliva M.D. LAB BODY FLUIDS AND STOOLS OR DERABLES Final Result Performing Organization Address City/[facility]/ZIP Co de Phone Number [facility] [address] [place] [address], [facility] MKTO [facility] [place] [address] [place] [address] * Triglycerides, Body Fluid (01/05/2024 12:50 PM FELT COVERER) Triglycerides, BF 31 See Comment mg/dL 01/06/2024 11:13 AM FELT COVERER DTL Comment: ----ADDITIONAL INFORMATION---- Pleural fluid triglyceride concentrations > 110 mg/dL are consistent with chylous effusions. Triglyceride concentrations <50 mg/dL are usually not due to chylous effusions. Peritoneal fluid triglyceride concentrations > 187 mg/dL are most consistent with chylous effusion. All other fluids refer to http://www.[employer].labs.com for further interpretive information. This test has been modified from the public relations specialist's instructions. Its performance characteristics were determined by [facility] in a manner consistent with CLIA requirements. This test has not been cleared or approved by the U.S. Food and Drug Administration. Fluid Type Pleural 01/06/2024 10:14 AM FELT COVERER DTL Fluid (Pleural Fluid) 01/05/2024 12:50 PM FELT COVERER 01/06/2024 10:01 AM FELT COVERER Fidencio Oliva M.D. LAB BODY FLUIDS AND STOOLS OR DERABLES Final Result Performing Organization Address City/[facility]/ZIP Co de Phone Number [facility] [address] [place] [address], [place] [facility] [address] [place] [address] * pH, Pleural Fluid (01/05/2024 12:50 PM FELT COVERER) pH, Pleural Fluid <6.80 Not Applicable pH 01/05/2024 1:59 PM FELT COVERER MKTO Comment: Clinical guidelines suggest that in parapneumonic pleural effusions, a pH <7.2 indicate the need for tube drainage. Fluid (Pleural Fluid) 01/05/2024 12:50 PM FELT COVERER 01/05/2024 1:47 PM FELT COVERER Fidencio Oliva M.D. LAB BODY FLUIDS AND STOOLS OR DERABLES Final Result Performing Organization Address City/[facility] Co de Phone Number [facility] [address] [place] [address], [place] [address] * (ABNORMAL) Gram Stain (01/05/2024 12:50 PM FELT COVERER) Only the most recent of3 resultswithin the time period is included. Gram Stain White blood cells, Many.(A) 01/05/2024 2:46 PM FELT COVERER MKTO Gram Stain GRAM POSITIVE COCCI Many. (A) 01/05/2024 2:46 PM FELT COVERER MKTO Fluid (Pleural Fluid) 01/05/2024 12:50 PM FELT COVERER 01/05/2024 1:47 PM FELT COVERER Comment:Specimen Source Site : Fluid Fidencio Oliva M.D. LAB MICROBIOLOGY - GENERAL OR DERABLES Final Result Performing Organization Address City/[facility]/ZIP Co de Phone Number [facility] [address] [place] [address], [place] [address] * Lactate Dehydrogenase (LD), Body Fluid (01/05/2024 12:50 PM FELT COVERER) Only the most recent of2 resultswithin the time period is included. Lactate Dehydrogenase (LD), BF >9000 See Comment U/L 01/06/2024 12:17 PM FELT COVERER DTL Comment: ----ADDITIONAL INFORMATION---- Pleural fluid lactate dehydrogenase (LDH) to serum LDH ratio >0.6 are most consistent with exudative effusions. Peritoneal fluid LDH > 220 U/L suggest secondary rather than spontaneous bacterial peritonitis in conjunction with other laboratory, imaging, and clinical findings. Synovial fluid lactate dehydrogenase (LDH) may be elevated greater than plasma or serum LDH due to inflammatory causes. Values should be interpreted in conjunction with other clinical findings. All other fluids refer to www.[employer] vascular solution.[employer] for further interpretive information. This test has been modified from the public relations specialist's instructions. Its performance characteristics were determined by [facility] in a manner consistent with CLIA requirements. This test has not been cleared or approved by the U.S. Food and Drug Administration. Fluid Type, Lactate Dehydrogenase PLEURAL 01/06/2024 10:14 AM FELT COVERER DTL Fluid (Pleural Fluid) 01/05/2024 12:50 PM FELT COVERER 01/06/2024 8:29 AM FELT COVERER Fidencio Oliva M.D. LAB BODY FLUIDS AND STOOLS OR DERABLES Final Result [facility] [address] [place] [address], [facility] [address] [place] [address] * Glucose, Body Fluid (01/05/2024 12:50 PM FELT COVERER) Only the most recent of2 resultswithin the time period is included. Glucose, BF 49 See Comment mg/dL 01/06/2024 11:13 AM FELT COVERER DTL Comment: ----ADDITIONAL INFORMATION---- Body fluid glucose concentrations may be decreased due to increased cellular metabolism and should be interpreted in the context of blood glucose concentrations and in conjunction with other laboratory and clinical findings. Pleural, Peritoneal, and Pericardial fluid and serum glucose concentrations are similar in the absence of infection. Synovial fluid glucose concentrations are similar to fasting blood glucose concentrations or approximately 50% of the non-fasting serum glucose concentration under normal conditions. Values below this can be seen with infection. Amniotic fluid glucose <16 mg/dL is suggestive of infection. Pancreatic cyst fluid glucose may be useful for differentiating mucinous from non-mucinous cystic lesions. Pancreatic cyst fluid glucose < 50 mg/dL is associated with mucinous cystic lesions. All other fluids refer to www.[employer].com for further interpretive information. This test has been modified from the public relations specialist's instructions. Its performance characteristics were determined by [facility] in a manner consistent with CLIA requirements. This test has not been cleared or approved by the U.S. Food and Drug Administration. Fluid Type, Glucose PLEURAL 01/05 10:14 AM FELT COVERER DTL Fluid (Pleural Fluid) 01/05/2024 12:50 PM FELT COVERER 01/06/2024 10:01 AM FELT COVERER us Fidencio Oliva M.D. LAB BODY FLUIDS AND STOOLS OR DERABLES Final Result [facility] [place] [address] [place] [address], [facility] DTRichard [place] [address] [place] [address] * Pneumonia Panel, PCR (01/04/2024 7:45 PM FELT COVERER) Specimen Source SPUTUM 10:43 PM FELT COVERER MKTO Acinetobacter calcoaceticus-balbir annii complex Undetected Undetected copies/mL 01/04/2024 10:43 PM FELT COVERER MKTO Enterobacter cloacae complex Undetected Undetected copies/mL 01/04/2024 10:43 PM FELT COVERER MKTO Escherichia coli Undetected Undetected copies/mL 01/04/2024 10:43 PM FELT COVERER MKTO Haemophilus influenzae Undetected Undetected copies/mL 01/04/2024 10:43 PM FELT COVERER MKTO Klebsiella aerogenes Undetected Undetected copies/mL 01/04/2024 10:43 PM FELT COVERER MKTO Klebsiella oxytoca Undetected Undetected copies/mL 01/04/2024 10:43 PM FELT COVERER MKTO Klebsiella pneumoniae complex Undetected Undetected copies/mL 01/04/2024 10:43 PM FELT COVERER MKTO Moraxella catarrhalis Undetected Undetected copies/mL 01/04/2024 10:43 PM FELT COVERER MKTO Proteus species Undetected Undetected copies/mL 01/04/2024 10:43 PM FELT COVERER MKTO Pseudomonas aeruginosa Undetected Undetected copies/mL 01/04/2024 10:43 PM FELT COVERER MKTO Serratia marcescens Undetected Undetected copies/mL 01/04/2024 10:43 PM FELT COVERER MKTO Staphylococcus aureus complex Undetected Undetected copies/mL 01/04/2024 10:43 PM FELT COVERER MKTO Streptococcus agalactiae Undetected Undetected copies/mL 01/04/2024 10:43 PM FELT COVERER MKTO Streptococcus pneumoniae Undetected Undetected copies/mL 01/04/2024 10:43 PM FELT COVERER MKTO Streptococcus pyogenes Undetected Undetected copies/mL 01/04/2024 10:43 PM FELT COVERER MKTO Chlamydia pneumoniae Undetected Undetected 01/04/2024 10:43 PM FELT COVERER MKTO Legionella pneumophila Undetected Undetected 01/04/2024 10:43 PM FELT COVERER MKTO Mycoplasma pneumoniae Undetected Undetected 01/04/2024 10:43 PM FELT COVERER MKTO Adenovirus Undetected Undetected 01/04/2024 10:43 PM FELT COVERER MKTO Coronavirus Undetected Undetected 01/04/2024 10:43 PM FELT COVERER MKTO Human Metapneumovirus Undetected Undetected 01/04/2024 10:43 PM FELT COVERER MKTO Human Rhinovirus/Enterov irus Undetected Undetected 01/04/2024 10:43 PM FELT COVERER MKTO Influenza A Undetected Undetected 01/04/2024 10:43 PM FELT COVERER MKTO Influenza B Undetected Undetected 01/04/2024 10:43 PM FELT COVERER MKTO Parainfluenza Undetected Undetected 01/04/2024 10:43 PM FELT COVERER MKTO Respiratory Syncytial Virus Undetected Undetected 01/04/2024 10:43 PM FELT COVERER MKTO Comment: ----ADDITIONAL INFORMATION---- This assay is performed using the FDA-cleared FilmArray Pneumonia Panel (PN) ([employer] Any initial empiric treatment guidance provided in this report by Infectious Diseases was based solely on the results shown. Patient management should be individualized, based on clinical interpretation of the result in this patient, alongside other considerations, including, but not limited to, renal and liver function, allergies, drug interactions, and other infections. This assay is not predicted to detect SARS-coronavirus (CoV), MERS-CoV or SARS-CoV-2. Sputum (Sputum) 01/04/2024 7 :45 PM FELT COVERER 01/04/2024 7:55 PM FELT COVERER us Octavio Cavazos, Ch.B. LAB MICROBIOLOGY - GENERAL ORDERABLES Final Result Performing Organization Address City/State/[facility] Co de Phone Number [facility] [address] [place] [address], [address] [address] * Bacterial Culture, Aerobic + Susceptibility, Respiratory (01/04/2024 7:45 PM FELT COVERER) Bacterial Culture, Aerobic, Resp No growth after 2 days of incubation. 01/06/2024 8:19 AM FELT COVERER MKTO Sputum (Sputum) 01/04/2024 7 :45 PM FELT COVERER 01/04/2024 7:55 PM FELT COVERER Comment:Specimen Source Site : Sputum us Octavio Cavazos, Ch.B. LAB MICROBIOLOGY - GENERAL ORDERABLES Final Result Performing Organization Address [facility] Co de Phone Number [facility] [address] [place] [address], [address] [address] * MRSA PCR, Nasal (01/04/2024 7:45 PM FELT COVERER) MRSA Screen, Nasal by PCR Negative Negative 01/04/2024 9:24 PM FELT COVERER TO Swab (Nares) 01/04/2024 7:45 PM FELT COVERER 01/04/2024 7:53 PM FELT COVERER us Frank Mccall M.D. LAB MICROBIOLOGY - GENERAL ORDERABLES Final Result Performing Organization Address [facility] Co de Phone Number [facility] [address] [place] [address], [place] [address] * Ankle, Right-Nursing Image Exam (01/04/2024 7:40 PM FELT COVERER) 01/04/2024 7:39 PM FELT COVERER Narrative IIMS - 01/04/2024 7:42 PM FELT COVERER This order has been created and auto-finalized to support the import of images acquired without order. The clinical documentation to support these images can be found on the encounter that produced images. us Provider Not In System IMG NON RAD IMAGING PROCE NEPTALI Final Result IIMS NA * (TTE) 2D ECHO DOPPLER COLOR AND CONTRAST (01/04/2024 10:38 AM FELT COVERER) Ejection Fraction 59 MC CV EIMS Sinus of Valsalva 36 MC CV EIMS Mid-Ascending Aorta 35 MC CV EIMS Wall Motion Score Index 1.19 MC CV EIMS LV End-Diastolic Volume 77 MC CV EIMS LV End-Systolic Volume 30 MC CV EIMS MV E Velocity 0.8 MC CV EIMS MV A Velocity 1.2 MC CV EIMS MV E/A 0.67 MC CV EIMS MV e' Velocity Medial 0.09 MC CV EIMS MV e' Velocity Lateral 0.08 MC CV EIMS MV E/e' Medial 8.9 MC CV EIMS MV E/e' Lateral 10 MC CV EIMS Left ventricular stroke volume index 52 MC CV EIMS Cardiac Output 9.34 MC CV EIMS Cardiac Index 5.34 MC CV EIMS TAPSE 14 MC CV EIMS Tricuspid Annular S 0.1 MC CV EIMS TR Vmax 2.54 MC CV EIMS RA Pressure 10 MC CV EIMS RV Systolic Pressure 36 MC CV EIMS AV mean gradient 9 MC CV EIMS Aortic valve area 2.77 MC CV EIMS Aortic Valve Dimensionless Index 0.73 MC CV EIMS LA Volume Index 22 MC CV EIMS Aortic Valve Systolic Peak Velocity 1.8 MC CV EIMS Anatomical Region Laterality Modality Echocardiography 01/04/2024 9:49 AM FELT COVERER Impressions 01/04/2024 11:49 AM FELT COVERER Echo performed at the patient's bedside. LEFT VENTRICLE:Normal left ventricular chamber size. Normal left ventricular wall thickness. Calculated 2-D biplane volumetric left ventricular ejection fraction of 59%. Regional wall motion abnormalities were present (see wall motion graphics). Indeterminate left ventricular diastolic function. RIGHT VENTRICLE:Normal right ventricular chamber size. Mildly reduced right ventricular systolic function. Estimated right ventricular systolic pressure 36 mmHg (right atrial pressure of 10 mmHg). ATRIA:Normal left atrial size. Left atrial volume index 22 ml/m2. Normal right atrial size. CARDIAC VALVES:Trileaflet aortic valve. Mildly sclerotic aortic valve. No aortic valve regurgitation. Mildly calcified mitral annulus. Mildly thickened mitral valve. Trivial mitral valve regurgitation. Pulmonary valve not well visualized. Increased pulmonary valve systolic velocities. Trivial pulmonary valve regurgitation. Normal tricuspid valve. Trivial tricuspid valve regurgitation. OTHER ECHO FINDINGS:Normal inferior vena cava size with reduced inspiratory collapse (<50%). Normal mid ascending aorta diameter of 35 mm. Upper limit of normal of the mid ascending aorta, for age, sex and BSA is 43 mm. Abdominal aorta not visualized. Imaging inadequate for detection of atrial level shunt by color flow imaging. No intracardiac mass or thrombus, but the left atrial appendage cannot be visualized adequately with transthoracic echo to exclude thrombus in this location. No pericardial effusion. Attempts were made to optimize the echocardiographic images and two or more left ventricular segments were not visualized adequately to evaluate cardiac structure. The patient's current allergies and medications have been screened. Intravenous Definity ultrasound enhancement agent(s) administered to enhance endocardial border definition. Imaging enhancement agent administered per Echocardiography Contrast Administration Protocol Reference Document [id number] Rev 05/30/2021. Patient met an inclusion criterion and did not have contraindications in screening sections. For the complete report, see the Order-Level Documents. Narrative 01/04/2024 11:49 AM FELT COVERER For the complete report, see the Order-Level Documents. Hemodynamics Heart Rate: 106 BPM Blood Pressure: 107 / 60 mmHg ECG: Sinus rhythm, Right bundle branch block Final Impressions 1. Normal left ventricular chamber size, regional wall motion abnormalities were present (see wall motion graphics), calculated 2-D biplane volumetric ejection fraction of 59%. 2. Normal right ventricular chamber size, mildly reduced systolic function, estimated right ventricular systolic pressure 36 mmHg (right atrial pressure of 10 mmHg). 3. Mildly sclerotic aortic valve. 4. No pericardial effusion. Procedure Note Yovany Frances M.D. - 01/04/2024 For the complete report, see the Order-Level Documents. Hemodynamics Heart Rate: 106 BPM Blood Pressure: 107 / 60 mmHg ECG: Sinus rhythm, Right bundle branch block Final Impressions 1. Normal left ventricular chamber size, regional wall motionabnormalities were present (see wall motion graphics), calculated 2-Dbiplane volumetric ejection fraction of 59%. 2. Normal right ventricular chamber size, mildly reduced systolicfunction, estimated right ventricular systolic pressure 36 mmHg (rightatrial pressure of 10 mmHg). 3. Mildly sclerotic aortic valve. 4. No pericardial effusion. Findings Echo performed at the patient's bedside. LEFT VENTRICLE:Normal left ventricular chamber size. Normal leftventricular wall thickness. Calculated 2-D biplane volumetric leftventricular ejection fraction of 59%. Regional wall motion abnormalitieswere present (see wall motion graphics). Indeterminate left ventriculardiastolic function. RIGHT VENTRICLE:Normal right ventricular chamber size. Mildly reducedright ventricular systolic function. Estimated right ventricular systolicpressure 36 mmHg (right atrial pressure of 10 mmHg). ATRIA:Normal left atrial size. Left atrial volume index 22 ml/m2. Normalright atrial size. CARDIAC VALVES:Trileaflet aortic valve. Mildly sclerotic aortic valve. Noaortic valve regurgitation. Mildly calcified mitral annulus. Mildlythickened mitral valve. Trivial mitral valve regurgitation. Pulmonaryvalve not well visualized. Increased pulmonary valve systolic velocities.Trivial pulmonary valve regurgitation. Normal tricuspid valve. Trivialtricuspid valve regurgitation. OTHER ECHO FINDINGS:Normal inferior vena cava size with reducedinspiratory collapse (<50%). Normal mid ascending aorta diameter of 35 mm.Upper limit of normal of the mid ascending aorta, for age, sex and BSA is43 mm. Abdominal aorta not visualized. Imaging inadequate for detection ofatrial level shunt by color flow imaging. No intracardiac mass orthrombus, but the left atrial appendage cannot be visualized adequatelywith transthoracic echo to exclude thrombus in this location. Nopericardial effusion. Attempts were made to optimize the echocardiographicimages and two or more left ventricular segments were not visualizedadequately to evaluate cardiac structure. The patient's current allergiesand medications have been screened. Intravenous Definity ultrasoundenhancement agent(s) administered to enhance endocardial borderdefinition. Imaging enhancement agent administered per EchocardiographyContrast Administration Protocol Reference Document [id number] Rev05/30/2021. Patient met an inclusion criterion and did not havecontraindications in screening sections. For the complete report, see the Order-Level Documents. us Jte Palomares M.D. CV ECHO PROCEDURES Sury kaye Result * (ABNORMAL) Urinalysis with Microscopic if Indicated (01/04/2024 5:56 AM FELT COVERER) Source Urine, Urine, Midstream 01/04/2024 6:03 AM FELT COVERER MKTO Clarity Cloudy(A) Clear 01/04/2024 6:37 AM FELT COVERER MKTO Color Yellow 01/04/2024 6:37 AM FELT COVERER MKTO Comment: ----REFERENCE VALUE---- Colorless Yellow Veronica Blood Negative Negative 01/04/2024 6:37 AM FELT COVERER MKTO Nitrite Negative Negative 01/04/2024 6:37 AM FELT COVERER MKTO Leukocyte Esterase Negative Negative 01/04/2024 6:37 AM FELT COVERER MKTO Protein 30(A) mg/dL 01/04/2024 6:37 AM FELT COVERER MKTO Comment: ----REFERENCE VALUE---- Negative Trace Glucose Negative Negative mg/dL 01/04/2024 6:37 AM FELT COVERER MKTO Ketone Trace(A) Negative mg/dL 01/04/2024 6:37 AM FELT COVERER MKTO Bilirubin Negative Negative 01/04/2024 6:37 AM FELT COVERER MKTO pH 5.0 5.0 - 8.0 01/04/2024 6:37 AM FELT COVERER MKTO Specific Compton 1.014 1.001 - 1.035 01/04/2024 6:37 AM FELT COVERER MKTO Urobilinogen 0.2 0.2 - 1.0 mg/dL 01/04/2024 6:37 AM FELT COVERER MKTO Urine (Urine, Midstream) 01/04/2024 5:56 AM FELT COVERER 01/04/2024 6:02 AM FELT COVERER Jet Palomares M.D. LAB URINE ORDERABLES nal Result [facility] [address] [place] [address], [place] [address] * Sodium, Random, Urine (01/04/2024 5:56 AM FELT COVERER) Sodium, Random, U 28 mmol/L 01/04/2024 6:54 AM FELT COVERER MKTO Comment: ----REFERENCE VALUE---- Random urine sodium may be interpreted in conjunction with serum sodium, using both values to calculate fractional excretion of sodium. Urine (Urine, Midstream) 01/04/2024 5:56 AM FELT COVERER 01/04/2024 6:01 AM FELT COVERER us Fausto Bey M.D. LAB URINE ORDERABLES Final Resu lt Performing Organization Address [facility] Co de Phone Number [facility] [address] [place] [address], [address] [address] * (ABNORMAL) Microscopic Automated (01/04/2024 5:56 AM FELT COVERER) White Blood Cells 4-10(A) /hpf 01/04/2024 6:58 AM FELT COVERER MKTO Comment: ----REFERENCE VALUE---- Males: 0-3 Females: 0-10 Unknown: 0-10 Red Blood Cells None Seen 0 - 2 /hpf 01/04/2024 6:58 AM FELT COVERER MKTO Hyaline Casts 4-10 /lpf 01/04/2024 6:58 AM FELT COVERER MKTO Squamous Cells Occ-3 /hpf 01/04/2024 6:58 AM FELT COVERER MKTO Urine 01/04/2024 5:56 AM FELT COVERER 01/04/2024 6:02 AM FELT COVERER us Jet Palomares M.D. LAB URINE ORDERABLES Fi nal Result Performing Organization Address [facility] Co de Phone Number [facility] [address] [place] [address], [address] [address] * (ABNORMAL) Protein/Creatinine Ratio, Random, Urine (01/04/2024 5:56 AM FELT COVERER) Protein, Total, Random, U 33 mg/dL 01/04/2024 6:54 AM FELT COVERER MKTO Creatinine, Random, U 94 16 - 326 mg/dL 01/04/2024 6:54 AM FELT COVERER MKTO Protein/Creati nine Ratio 0.35(H) <0.18 mg/mg 01/04/2024 6:54 AM FELT COVERER [facility] Urine (Urine, Midstream) 01/04/2024 5:56 AM FELT COVERER 01/04/2024 6:02 AM FELT COVERER us Jet Palomares M.D. LAB URINE ORDERABLES Fi nal Result Performing Organization Address [facility]/ZIP Co de Phone Number [facility] [address] [place] [address] * (ABNORMAL) NT-Pro B-Type Natriuretic Peptide (BNP) (01/04/2024 4:56 AM FELT COVERER) Only the most recent of3 resultswithin the time period is included. NT-Pro BNP 5163(H) <=540 pg/mL 01/04/2024 8:20 AM FELT COVERER TO Comment: NT-proBNP values less than 300 pg/mL have a 99% negative predictive value for excluding acute congestive heart failure. A cutoff of 1200 pg/mL for patients with an eGFR<60 yields a diagnostic sensitivity and specificity of 89% and 72% for acute congestive heart failure. A diagnostic NT-proBNP cutoff of 1800 pg/mL has been suggested in adults over 75 years of age in the absence of renal failure. Blood (Blood, Venous) 01/04/2024 4:56 AM FELT COVERER 01/04/2024 8:01 AM FELT COVERER us Portia Ramos M.D., Ph.D. LAB BLOOD ADD-ON Final Res ult Performing Organization Address [facility]/ZIP Co de Phone Number [facility] [address] [place] [address], [place] [address] * (ABNORMAL) Iron and Total Iron-Binding Capacity (01/04/2024 4:56 AM FELT COVERER) Iron 38(L) 50 - 150 mcg/dL 01/04/2024 8:32 AM FELT COVERER TO Total Iron Binding Capacity 79(L) 250 - 400 mcg/dL 01/04/2024 8:32 AM FELT COVERER TO Percent Saturation 48 14 - 50 % 01/04/2024 8:32 AM FELT COVERER [facility] Blood (Blood, Venous) 01/04/2024 4:56 AM FELT COVERER 01/04/2024 8:02 AM FELT COVERER Portia Ramos M.D., Ph.D. LAB BLOOD ADD-ON Final Res ult Performing Organization Address [facility] Co de Phone Number [facility] [address] [place] [address] * Parathyroid Hormone (PTH) (01/04/2024 4:56 AM FELT COVERER) Parathyroid Hormone (PTH), S 43 15 - 65 pg/mL 01/04/2024 8:32 AM FELT COVERER TO Comment: Biotin has been identified by the public relations specialist as a potential interfering substance. Higher concentrations of biotin may be found in multivitamins, hair/nail supplements, and workout supplements. If the result does not match clinical observations, repeat testing after patient refrains from the use of supplements for at least 12 hours. Blood (Blood, Venous) 01/04/2024 4:56 AM FELT COVERER 01/04/2024 8:02 AM FELT COVERER us Portia Ramos M.D., Ph.D. LAB BLOOD ADD-ON Final Res ult Performing Organization Address [facility]/ZIP Co de Phone Number [facility] [address] [place] [address], [place] [address] * (ABNORMAL) Ferritin (01/04/2024 4:56 AM FELT COVERER) Ferritin, S 1703(H) 31 - 409 mcg/L 01/04/2024 8:32 AM FELT COVERER MKTO Comment: Biotin has been identified by the public relations specialist as a potential interfering substance. Higher concentrations of biotin may be found in multivitamins, hair/nail supplements, and workout supplements. If the result does not match clinical observations, repeat testing after patient refrains from the use of supplements for at least 12 hours. Blood (Blood, Venous) 01/04/2024 4:56 AM FELT COVERER 01/04/2024 8:02 AM FELT COVERER us Portia Ramos M.D., Ph.D. LAB BLOOD ADD-ON Final Res ult [facility] [address] [place] [address], [facility] MKTO [facility] [place] [address] * US Thoracentesis Right with Imaging Guidance (01/03/2024 5:04 PM FELT COVERER) Anatomical Region Laterality Modality Chest, Ultrasound RST LOS, U ltrasound ARZ LOS, Procedure FLA LOS, Abdominal FLA LOS, Procedural, Procedural NWWI LOS Right Ultrasound Impressions 01/04/2024 8:03 AM FELT COVERER Successful ultrasound guided diagnostic and therapeutic right thoracentesis. Narrative 01/04/2024 8:03 AM FELT COVERER EXAM: US THORACENTESIS RIGHT WITH IMAGING GUIDANCE PROCEDURE: Sterile; 1% lidocaine for local anesthesia. Location: Right pleural space Needle size: 5 Fr [facility] Fluid Amount/Color: 150 mL of white/hubbard opaque fluid removed Complications: None. Laboratory: Results pending. PREPROCEDURE: Patient seen, evaluated, and history reviewed. Discussed risks, benefits, alternatives for procedure, and obtained informed consent. Patient understands information and questions answered. Immediately prior to starting the procedure, in the presence of assisting personnel, procedural pause was conducted to verify correct patient identity and verification of procedure to be performed, and as applicable, correct side and site, correct patient position, availability of implants, special equipment, or special requirements, and all image and specimen identification data. The roles and responsibilities of care team members were discussed. The medication list was reviewed and there are no changes to current medications. Patient education provided by the care team automobile assembler. Ready to learn, no apparent learning barriers were identified. Post-procedure care explained; patient expressed understanding of the content. Procedure Note Charbel Capone M.D. - 01/04/2024 EXAM: US THORACENTESIS RIGHT WITH IMAGING GUIDANCE PROCEDURE: Sterile; 1% lidocaine for local anesthesia. Location: Right pleural space Needle size: 5 Fr Yueh Fluid Amount/Color: 150 mL of white/hubbard opaque fluid removed Complications: None. Laboratory: Results pending. PREPROCEDURE: Patient seen, evaluated, and history reviewed. Discussedrisks, benefits, alternatives for procedure, and obtained informedconsent. Patient understands information and questions answered.Immediately prior to starting the procedure, in the presence of assisting personnel, procedural pause was conducted to verifycorrect patient identity and verification of procedure to be performed,and as applicable, correct side and site, correct patient position,availability of implants, special equipment, or special requirements, and all image and specimenidentification data. The roles and responsibilities of care team memberswere discussed. The medication list was reviewed and there are no changesto current medications. Patient education provided by the care team automobile assembler. Ready to learn, no apparent learningbarriers were identified. Post-procedure care explained; patient expressedunderstanding of the content. IMPRESSION: Successful ultrasound guided diagnostic and therapeutic rightthoracentesis. Result [facility] Octavio Cavazos, Ch.B. IMG US PROCEDURES Final Result * Lactate for Sepsis with Reflex (01/03/2024 10:52 AM FELT COVERER) Lactate, B 1.1 0.5 - 2.2 mmol/L 01/03/2024 11:01 AM FELT COVERER [facility] Blood (Blood, Venous) 01/03/2024 10:52 AM FELT COVERER 01/03/2024 10:58 AM FELT COVERER Octavio Cavazos, Ch.B. LAB BLOOD NON ADD- ON Final Result [facility] [address] [place], [place] [address], [place] [address] * (ABNORMAL) Albumin (01/03/2024 10:51 AM FELT COVERER) Only the most recent of2 resultswithin the time period is included. [facility] Albumin, P 3.0(L) 3.5 - 5.0 g/dL 01/03/2024 1:15 PM FELT COVERER [facility] Blood (Blood, Venous) 01/03/2024 10:51 AM FELT COVERER 01/03/2024 1:02 PM FELT COVERER us Jet Palomares M.D. LAB BLOOD ADD-ON Final Result [facility] [address] [place] [address] * pH (01/03/2024 6:42 AM FELT COVERER) Only the most recent of2 resultswithin the time period is included. [facility] pH 7.43 7.35 - 7.45 pH 01/03/2024 7:00 AM FELT COVERER [facility] Blood 01/03/2024 6:42 AM FELT COVERER 01/03/2024 6:55 AM FELT COVERER us Deanna Lewis APRN, C.N.P., D.N.P., M.S.N. LAB H ISTORICAL ORDERS Final Result [facility] [address] [place] [address], [place] [address] * (ABNORMAL) QuantiFERON-Tb Gold Plus, Blood (01/03/2024 6:42 AM FELT COVERER) [facility] QuantiFERON-TB Gold Plus Result Indetermi parviz(A) Negative 01/07/2024 2:48 PM FELT COVERER [facility] Comment: Indeterminate due to a low interferon-gamma level in the mitogen (positive control) tube. This may occur due to a low lymphocyte count, reduced lymphocyte activity or inability of the patient's lymphocytes to generate interferon-gamma. The reference range for the 'Mitogen minus Nil Result' is >=0.5 IU/mL. TB1 Ag minus Nil Result 0.00 IU/mL 01/07/2024 2:48 PM FELT COVERER [facility] TB2 Ag minus Nil Result 0.00 IU/mL 01/07/2024 2:48 PM FELT COVERER [facility] Mitogen minus Nil Result 0.01 IU/mL 01/07/2024 2:48 PM FELT COVERER [facility] Nil Result 0.04 IU/mL 01/07/2024 2:48 PM FELT COVERER [facility] Blood (Blood, Venous) 01/03/2024 6:42 AM FELT COVERER 01/04/2024 10:57 AM FELT COVERER Narrative [facility] - 01/07/2024 2:48 PM FELT COVERER Specimen Information: Specimen ID: [id number] Specimen Type: Blood Specimen Collection Start Date: 01/03/2024 6:42 AM Specimen Received Date: 01/04/2024 10:57 AM Specimen ID: [id number] Specimen Type: Blood Specimen Collection Start Date: 01/03/2024 6:42 AM Specimen Received Date: 01/04/2024 10:57 AM Specimen ID: [id number] Specimen Type: Blood Specimen Collection Start Date: 01/03/2024 6:42 AM Specimen Received Date: 01/04/2024 10:57 AM Specimen ID: [id number] Specimen Type: Blood Specimen Collection Start Date: 01/03/2024 6:42 AM Specimen Received Date: 01/04/2024 10:57 AM Jet Palomares M.D. LAB MICROBIOLOGY - BLOO D ORDERABLES Final Result [facility] [address] [place] [address], [facility] [address] [address] * Vitamin D, Immunoassay, Total, Serum (01/03/2024 6:42 AM FELT COVERER) Vitamin D, Immunoassay, Total, S 23 20 - 80 ng/mL 01/04/2024 8:37 AM FELT COVERER MKTO Comment: Optimum levels within the healthy population are 20-50, patients with bone disease may benefit from high levels within this range Blood (Blood, Venous) 01/03/2024 6:42 AM FELT COVERER 01/04/2024 8:02 AM FELT COVERER Portia Ramos M.D., Ph.D. LAB BLOOD ADD-ON Final Res ult Performing Organization Address City/[facility]/ZIP Co de Phone Number [facility] [address] [place] [address], [place] [address] * HBc Total Ab, Serum (01/03/2024 6:42 AM FELT COVERER) Pathologist [facility] HBc Total Ab, S Negative Negative 01/04/2024 11:52 AM FELT COVERER [facility] Blood (Blood, Peripheral Draw) 01/03/2024 6:42 AM FELT COVERER 01/04/2024 7:28 AM FELT COVERER us Jet Palomares M.D. LAB MICROBIOLOGY - BLOO D ORDERABLES Final Result Performing Organization Address City/[facility]/ZIP Co de Phone Number [facility] [address] [place] [address] [facility] [address] [place] [address] * HBs Antibody, Serum (01/03/2024 6:42 AM FELT COVERER) HBs Antibody, S Negative 7:57 AM FELT COVERER MKTO Comment: Patient is presumed NOT to be immune to infection with HBV. Consumption of high-dose biotin supplement within 12 hours of blood collection for this test can cause false-negative results. ----REFERENCE VALUE---- Unvaccinated: Negative Vaccinated: Positive HBs Antibody, Quantitative, S <3.50 mIU/mL 01/03/2024 7:57 AM FELT COVERER [facility] Comment: ----REFERENCE VALUE---- <8.50: Negative 8.50-11.49: Indeterminate >=11.50: Positive Blood (Blood, Peripheral Draw) 01/03/2024 6:42 AM FELT COVERER 01/03/2024 6:55 AM FELT COVERER Jet Palomares M.D. LAB MICROBIOLOGY - BLOO D ORDERABLES Final Result Performing Organization Address City/[facility] Co de Phone Number [facility] [address] [place] [address] * Hepatitis B Surface Antigen (01/03/2024 6:42 AM FELT COVERER) HBs Antigen, S Nonreactive Nonreactive 01/03/2024 8:07 AM FELT COVERER [facility] Blood (Blood, Peripheral Draw) 01/03/2024 6:42 AM FELT COVERER 01/03/2024 6:55 AM FELT COVERER Jet Palomares M.D. LAB MICROBIOLOGY - BLOO D ORDERABLES Final Result Performing Organization Address [facility] Co de Phone Number [facility] [address] [place] [address] * (ABNORMAL) Calcium, Ionized (01/03/2024 6:42 AM FELT COVERER) Only the most recent of2 resultswithin the time period is included. Calcium, Ionized, B 4.31(L) 4.65 - 5.30 mg/dL 01/03/2024 7:00 AM FELT COVERER [facility] Blood 01/03/2024 6:42 AM FELT COVERER 01/03/2024 6:55 AM FELT COVERER Deanna Lewis APRN, C.N.P., D.N.P., M.S.N. LAB B LOOD NON ADD-ON Final Result Performing Organization Address City/[facility]/ZIP Co de Phone Number [facility] [address] [place] [address], [place] MKTO [facility] [place] [address] [place] [address] * Leukemia/Lymphoma Immunophenotyping by Flow Cytometry (01/03/2024 6:10 AM FELT COVERER) LCMS Result Performed 01/05/2024 1:37 PM FELT COVERER DTL Final Diagnosis: Pleural fluid, flow cytometric immunophenotyp ing: No monotypic B-cell population or increase in blasts identified. Reviewed by: Blank Crisostomo M.D. 01/05/2024 1:37 PM FELT COVERER DTL Special Studies: Results: Blasts: Not increased by CD45/side scatter and CD34. B-cells: Absence of [id number]-[id number] B cells. B-cell markers tested: CD19, CD10 and kappa and lambda surface light chains. T-cells/NK-joelle ls: No aberrant phenotype by CD3 and CD16. Quality assessment: Specimen received within validated guidelines. 01/05/2024 1:37 PM FELT COVERER DTL Microscopic Description A Hu-Giemsa- stained slide prepared from the flow cytometry specimen is examined. Morphology is suboptimal. 01/05/2024 1:37 PM FELT COVERER DTL Comment: ----ADDITIONAL INFORMATION---- This test was developed using an analyte specific reagent. Its performance characteristics were determined by [facility] in a manner consistent with CLIA requirements. This test has not been cleared or approved by the U.S. Food and Drug Administration. Fluid (Pleural Fluid, Right) 01/03/2024 6:10 AM FELT COVERER 01/04/2024 8:57 AM FELT COVERER us Octavio Cavazos, Ch.B. LAB GENETIC TESTIN G Final Result [facility] [address] [place] [address], [place] D[place] [address] [place] [address] * M tuberculosis Complex PCR (01/03/2024 6:10 AM FELT COVERER) MTB Complex PCR, Specimen Source Fluid, Pleural Fluid, Right 01/06/2024 7:45 PM FELT COVERER DTL MTB Complex PCR, Result Negative Not Applicable 01/06/2024 7:45 PM FELT COVERER DTL Comment: A mycobacterial culture must always be performed in addition to the PCR test. If your facility is unable to perform mycobacterial culture, the Mycobacteria Culture test (test code CTB) should be ordered. Sensitivity of the PCR from acid-fast smear positive specimens is approximately 96% compared to mycobacterial culture but sensitivity of the PCR from smear negative specimen is lower and a negative result does not rule out M. tuberculosis complex. ----ADDITIONAL INFORMATION---- This test was developed and its performance characteristics determined by [facility] in a manner consistent with CLIA requirements. This test has not been cleared or approved by the U.S. Food and Drug Administration. Fluid (Pleural Fluid, Right) 01/03/2024 6:10 AM FELT COVERER 01/04/2024 10:24 AM FELT COVERER us Octavio Cavazos, Ch.B. LAB MICROBIOLOGY - GENERAL ORDERABLES Final Result [facility] [address] [place] [address], [facility] [address] [place] [address] * (ABNORMAL) Bacterial Culture, Aerobic + Susceptibility (01/03/2024 6:10 AM FELT COVERER) Bacterial Culture, Aerobic + Susc STREPTOCOCCUS ANGINOSUS GROUP 4+ (A) 01/06/2024 12:07 PM FELT COVERER MKTO Fluid (Pleural Fluid, Right) 01/03/2024 6:10 AM FELT COVERER 01/03/2024 5:08 PM FELT COVERER Comment:Specimen Source Site : Fluid Narrative Organism Antibiotic Method Susceptibility Streptococcus anginosus group Penicillin SUSCEPTIBILITY, ROLF (MCG/ML) <=0.06 mcg/mL: Susceptible Streptococcus anginosus group Ampicillin SUSCEPTIBILITY, ROLF (MCG/ML) <=0.25 mcg/mL: Susceptible Streptococcus anginosus group Cefotaxime SUSCEPTIBILITY, ROLF (MCG/ML) 0.25 mcg/mL: Susceptible Streptococcus anginosus group Ceftriaxone SUSCEPTIBILITY, ROLF (MCG/ML) 0.25 mcg/mL: Susceptible Streptococcus anginosus group Levofloxacin SUSCEPTIBILITY, ROLF (MCG/ML) 0.5 mcg/mL: Susceptible Streptococcus anginosus group Moxifloxacin SUSCEPTIBILITY, ROLF (MCG/ML) 0.12 mcg/mL: Susceptible Streptococcus anginosus group Erythromycin SUSCEPTIBILITY, ROLF (MCG/ML) <=0.12 mcg/mL: Susceptible Streptococcus anginosus group Clindamycin SUSCEPTIBILITY, ROLF (MCG/ML) <=0.25 mcg/mL: Susceptible Streptococcus anginosus group Vancomycin SUSCEPTIBILITY, ROLF (MCG/ML) 0.5 mcg/mL: Susceptible Streptococcus anginosus group Tigecycline SUSCEPTIBILITY, ROLF (MCG/ML) <=0.06 mcg/mL: Susceptible Octavio Cavazos, Ch.B. LAB MICROBIOLOGY - GENERAL ORDERABLES Final Result [facility] [address] [place] [address], [facility] MKTO [facility] [place] [address] * Cholesterol, Body Fluid (01/03/2024 6:10 AM FELT COVERER) Cholesterol, BF 34 See Comment mg/dL 01/05/2024 8:47 AM FELT COVERER DTL Comment: ----ADDITIONAL INFORMATION---- Pleural fluid cholesterol concentrations > 45 to 65 mg/dL are consistent with exudative effusions. Cholesterol concentrations > 200 mg/dL suggest pseudochylous effusions. Peritoneal fluid cholesterol concentrations > 32 to 70 mg/dL suggest a malignant cause of ascites. All other fluids refer to http://[email or web address]labs.com for further interpretive information. This test has been modified from the public relations specialist's instructions. Its performance characteristics were determined by [facility] in a manner consistent with CLIA requirements. This test has not been cleared or approved by the U.S. Food and Drug Administration. Fluid Type Pleural 01/05/2024 8:14 AM FELT COVERER DTL Fluid (Pleural Fluid, Right) 01/03/2024 6:10 AM FELT COVERER 01/05/2024 7:49 AM FELT COVERER us Octavio Cavazos, Ch.B. LAB BODY FLUIDS AN Arlene STOOLS ORDERABLES Final Result [facility] [address] [place] [address], [place] DTL [facility] [address] [place] [address] * DX Chest Portable 1 View (01/02/2024 3:59 PM FELT COVERER) Only the most recent of2 resultswithin the time period is included. Anatomical Region Laterality Modality Chest, Thoracic RST LOS, Tho racic ARZ LOS, Thoracic FLA LOS N/A Digital Radiography Impressions 01/02/2024 4:13 PM FELT COVERER Right jugular catheter terminates at the mid SVC. No pneumothorax. Narrative 01/02/2024 4:13 PM FELT COVERER EXAM: DX CHEST PORTABLE 1 VIEW COMPARISON: Chest radiograph from 01/02/2024 FINDINGS: A right jugular catheter has been placed that terminates at the mid SVC. Small right pleural effusion, including loculated component in the major fissure, with likely regional platelike atelectasis in the right lung base, similar to prior exam. Small amount of left basilar subsegmental atelectasis. No pneumothorax. The cardiomediastinal contours are within normal limits. No acute osseous findings. Procedure Note Charbel Capone M.D. - 01/02/2024 EXAM: DX CHEST PORTABLE 1 VIEW COMPARISON: Chest radiograph from 01/02/2024 FINDINGS: A right jugular catheter has been placed that terminates at themid SVC. Small right pleural effusion, including loculated component inthe major fissure, with likely regional platelike atelectasis in the rightlung base, similar to prior exam. Small amount of left basilar subsegmental atelectasis. No pneumothorax.The cardiomediastinal contours are within normal limits. No acute osseousfindings. IMPRESSION: Right jugular catheter terminates at the mid SVC. No pneumothorax. us Nikki Salinas M.D. IMG DIAGNOSTIC IMAGI NG PROCEDURES Final Result * ME INS NON-BLAINE CVC >5YR, ME US GUIDE VASC ACCESS, LDA ANE CENTRAL LINE DOUBLE LUMEN ADULT, MC ANE CENTRAL LINE GENERIC PERFORMABLE (01/02/2024 3:47 PM FELT COVERER) Narrative Nikki Salinas M.D. - 01/02/2024 3:47 PM FELT COVERER Nikki Salinas M.D. 01/02/2024 3:50 PM Invasive Line Performed by: Nikki Salinas M.D. Authorized by: Nikki Salinas M.D. Location: ICU/PCU PROCEDURE DETAILS: Line type: central venous Laterality: right Location: jugular internal Location details: new site Additional catheter (i.e. multiple lines in same vessel): no Patient position: supine Age group: adult Line Type: temporary (non-tunneled, non-implanted) Introducer: no Lumen(s): double lumen Catheter diameter: 11.5 Fr Catheter insertion depth (cm): 12 cm Site the catheter was advanced to (this is the intended location and does not need to be proven by radiologic exam): central venous circulation (e.g. brachiocephalic (innominate), superior or inferior vena cava, right atrium) Technique: ultrasound guided Ultrasound guidance: image acquired and saved Ultrasound comment: ultrasound guidance used demonstrating vessel patency and cannulation of the vessel observed. Vessel transduced: no Monitored (venous): yes Number of attempts: 1 CONSENT Consent obtained: verbal Consent given by: patient The benefits, risks and alternatives to the procedure and the potential need for sedation or anesthesia as well as the names, roles, and responsibilities of healthcare team members performing significant interventional tasks were discussed with the patient and/or decision maker. [employer] All relevant documentation and testing were reviewed and available. All required blood products, implants, devices and or special equipment were made available as applicable. Pre-procedure verification was conducted and the correct site was marked if required. A fire risk and smoke assessment were done as applicable. The procedural time-out to verify correct patient, correct side/site, and procedure was conducted prior to performing the procedure and confirmed in a procedural pause. PRE-PROCEDURE DETAILS: Indication(s): dialysis/pheresis Appropriate hand hygiene, gown, cap, mask, protective eyewear, sterile gloves, skin preparation, sterile drape, and strict aseptic technique were utilized as applicable for the procedure.: yes Skin preparation: chlorhexidine SEDATION / ANESTHESIA Anesthesia method: local infiltration Local infiltrate type: lidocaine POST-PROCEDURE DETAILS: Procedure completed successfully: yes Line secured: sutured Chlorhexidine disc around insertion site and under catheter with slight turn: yes Notable Events: none Patient tolerance of procedure: successful us Nikki Salinas M.D. PROCEDURE/MINOR SURG ICAL ORDERABLES Final Result * Non-Radiology Image-General Surgery Image Exam (01/02/2024 3:30 PM FELT COVERER) Narrative [facility] - 01/06/2024 8:53 PM FELT COVERER This order has been created and auto-finalized to support the import of images acquired without order. The clinical documentation to support these images can be found on the encounter that produced images. us Provider Not In System IMG NON RAD IMAGING PROCE DURES Final Result [facility] NA * US Kidneys Bilateral with Bladder (01/02/2024 10:15 AM FELT COVERER) Anatomical Region Laterality Modality Abdomen, Renal, Ultrasound R ST LOS, Ultrasound ARZ LOS, Ultrasound FLA LOS Bilateral Ultrasound Impressions 01/02/2024 10:57 AM FELT COVERER 1. No hydronephrosis. 2. Bilateral simple appearing renal cysts. Narrative 01/02/2024 10:57 AM FELT COVERER EXAM: US KIDNEYS BILATERAL WITH BLADDER COMPARISON: CT chest abdomen pelvis from 01/01/2024 FINDINGS: Right kidney: 12.1 cm Cortical thickness: Normal. Parenchymal echogenicity: Normal. Collecting system: No hydronephrosis. Masses: 4.2 cm exophytic simple appearing cyst in the interpolar region. Left kidney: 12.1 cm Cortical thickness: Normal. Parenchymal echogenicity: Normal. Collecting system: No hydronephrosis. Masses: Multiple simple appearing renal cysts, largest measuring 3.6 cm. Bladder: Normal. Procedure Note Charbel Capone M.D. - 01/02/2024 EXAM: US KIDNEYS BILATERAL WITH BLADDER COMPARISON: CT chest abdomen pelvis from 01/01/2024 FINDINGS: Right kidney: 12.1 cm Cortical thickness: Normal. Parenchymal echogenicity: Normal. Collecting system: No hydronephrosis. Masses: 4.2 cm exophytic simple appearing cyst in the interpolar region. Left kidney: 12.1 cm Cortical thickness: Normal. Parenchymal echogenicity: Normal. Collecting system: No hydronephrosis. Masses: Multiple simple appearing renal cysts, largest measuring 3.6 cm. Bladder: Normal. IMPRESSION: 1. No hydronephrosis. 2. Bilateral simple appearing renal cysts. us Jet Palomares M.D. IMG US PROCEDURES Final Result * CK (Creatine Kinase) (01/02/2024 4:10 AM FELT COVERER) Creatine Kinase, P 78 39 - 308 U/L 01/02/2024 9:49 AM FELT COVERER [facility] Blood (Blood, Venous) 01/02/2024 4:10 AM FELT COVERER 01/02/2024 9:30 AM FELT COVERER us Jet Palomares M.D. LAB BLOOD ADD-ON Final Result [facility] [place] [address], [facility] MKTO [facility] [place] [address] [place] [address] * Lactate, B (01/02/2024 3:41 AM FELT COVERER) Lactate, B 0.8 0.5 - 2.2 mmol/L 01/02/2024 4:47 AM FELT COVERER [facility] Blood (Blood, Venous) 01/02/2024 3:41 AM FELT COVERER 01/02/2024 4:45 AM FELT COVERER us Deanna Lewis APRN C.N.P., D.N.P., M.S.N. LAB B LOOD NON ADD-ON Final Result Performing Organization Address City/[facility]/ZIP Co de Phone Number [facility] [address] [place] [address], [facility] [place][note 2] [address] [place] [address] * (ABNORMAL) Osmolality (01/02/2024 3:41 AM FELT COVERER) Osmolality, S 338(H) 276 - 306 mOsm/kg 01/02/2024 5:40 AM FELT COVERER [facility] Blood (Blood, Venous) 01/02/2024 3:41 AM FELT COVERER 01/02/2024 4:05 AM FELT COVERER Fausto Bey M.D. LAB BLOOD ADD-ON Final Result Performing Organization Address [facility] Co de Phone Number [facility] [address] [place] [address], [facility] [place] [address] [place] [address] * (ABNORMAL) Blood Gas with Coox, Venous (01/02/2024 3:41 AM FELT COVERER) pO2, Venous 49 Not applicable mm Hg 01/02/2024 4:14 AM FELT COVERER [facility] pCO2, Venous 29(L) 41 - 51 mm Hg 4:14 AM FELT COVERER [facility] pH, Venous 7.29(L) 7.32 - 7.43 pH 01/02/2024 4:14 AM FELT COVERER [facility] Base Excess, Venous -12 Not applicable mmol/L 01/02/2024 4:14 AM FELT COVERER [facility] HCO3, Venous 13 Not applicable mmol/L 01/02/2024 4:14 AM FELT COVERER [facility] Hemoglobin, Venous 9.6(L) 13.2 - 16.6 g/dL 01/02/2024 4:14 AM FELT COVERER [facility] O2Hb, Venous 79.4 Not applicable % 01/02/2024 4:14 AM FELT COVERER [facility] COHb, Venous 0.2 <3.0 % 01/02/2024 4:14 AM FELT COVERER [facility] MetHb, Venous 1.2 <1.5 % 01/02/2024 4:14 AM FELT COVERER [facility] CtO2, Venous 10.8 Not Applicable vol % 01/02/2024 4:14 AM FELT COVERER [facility] Blood (Blood, Venous) 01/02/2024 3:41 AM FELT COVERER 01/02/2024 4:05 AM FELT COVERER Fausto Bey M.D. LAB BLOOD NON ADD-ON Final Resu lt Performing Organization Address City/[facility]/ZIP Co de Phone Number [facility] [address] [place] [address], [facility] [place] [address] [place] [address] * CT chest abdomen pelv wo con-Outside CT Body (01/01/2024 2:25 PM FELT COVERER) 01/01/2024 2:17 PM FELT COVERER Narrative [facility] - 01/01/2024 3:57 PM FELT COVERER This order has been created and auto-finalized to support the import of outside images. If available, original interpretation can be found on the Media Tab in Chart Review, in Document Viewer, as an image in [employer] or as an Addendum. If a re-interpretation or overread is required please follow defined workflow. us Provider Not In System IMG CT PROCEDURES Final R esult Performing Organization Address City/[facility]/ZIP Co de Phone Number [facility] NA * CT HEAD/BRAIN WO CON-Outside CT Neuro (01/01/2024 2:20 PM FELT COVERER) 01/01/2024 2:17 PM FELT COVERER Narrative [facility] - 01/01/2024 3:56 PM FELT COVERER This order has been created and auto-finalized to support the import of outside images. If available, original interpretation can be found on the Media Tab in Chart Review, in Document Viewer, as an image in [employer] or as an Addendum. If a re-interpretation or overread is required please follow defined workflow. us Provider Not In System IMG CT PROCEDURES Final R esult [facility] NA from Last 3 Months Insurance [employer] Advance Directives For more information, please contact: [phone] * DNR/DNI (Latest Code Status on File) Date Activated Date Inactivated Comments 01/01/2024 9:20 PM Question Answer Comments DNR/DNI (Do Not Resuscitate/Do Not Intubate): Orquidea motta-Patient Care Teams Transverse Abdominal Muscle Surgeon Relationship Specialty Start Date End Date Elsewhere, Pcp PCP - General Internal Medicine 01/04/24
--- OUTSIDE RECORDS SUMMARY | 2024-01-08 01:32 | XMS_ITS | Encounter Summary ---
Author Organization [facility] Address [address] [place] [address] Care Team Providers Care Visual Education Teacher Name Role Phone Unavailable Primary Care Provider Unavailabl e Encounter Details Date Type Department Care Team (Late st Contact Info) Description 01/02/2024 3:30 PM TALKBACK HOST Ancillary Procedure Department of General Surgery Social History Tobacco Use Types Packs/Day Years Used Date Smoking Tobacco: Never Assessed Nutrition Answer Date Recorded Nutrition: EVOO Fat Source Unknown 12/24 Nutrition: Servings of Fruits/Vegetables per Day Not on file 12/24/2022 Dental Answer Date Recorded Dental: Regular Dentist Unknown 12/25/19 Sex and Gender Information Value Date Recorded Sex Assigned at Not on file Legal Sex Male 3:31 PM TALKBACK HOST Gender Identity Not on file Sexual Orientation Not on file documented as of this encounter Plan of Treatment Upcoming Encounters Date Type Department Care Team (Late st Contact Info) Description 01/26/2024 1:00 PM TALKBACK HOST Office Visit Department of Infectious Diseases in [address] [phone] Clara Jones P.A.-C. [address] [place] [phone] documented as of this encounter Procedures Procedure Name Priority Date/Time Associated Diagnosis Comments GENERAL SURGERY IMAGE EXAM Routine 01/02/2024 3:30 PM TALKBACK HOST documented in this encounter Results * Non-Radiology Image-General Surgery Image Exam (01/02/2024 3:30 PM TALKBACK HOST) Narrative [facility] - 01/06/2024 8:53 PM TALKBACK HOST This order has been created and auto-finalized to support the import of images acquired without order. The clinical documentation to support these images can be found on the encounter that produced images. us Provider Not In System IMG NON RAD IMAGING PROCE DURES Final Result [facility] NA documented in this encounter Visit Diagnoses Not on filedocumented in this encounter
--- OUTSIDE RECORDS SUMMARY | 2024-01-08 01:32 | XMS_ITS | Referral Summary ---
Author Organization [facility] Address [address] [place] [address] Care Team Providers Care Radiation Protection Technician Name Role Phone Elsewhere, Pcp Primary Care Provider Unavailabl e Source Comments Patient records contain information from all sites at [facility]. For routine questions regarding patient records, call [phone] during business hours, M-F 8:00 AM - 5:00 PM Central Time. Record requests for emergency care only can be directed to [phone] at any time.[facility] Encounters Date Type Department Care Team Description 01/07/2024 Clinical Communication Department of Infectious Diseases in [address] [phone] Stacy Esposito R.N. 01/04/2024 7:40 PM ORCHARD PRUNER Ancillary Procedure Department of Nursing Arrived 01/02/2024 3:30 PM ORCHARD PRUNER Ancillary Procedure Department of General Surgery 01/01/2024 8:59 PM ORCHARD PRUNER - Present Hospital Encounter [facility], Fourth Floor [address] [place] [phone] Frank Mccall M.D. Octavio Morton M.B., Ch.B. Jeremías Fernandez M.D. Chapito Velazquez D.O. Khan, Saad S, M.D. Failure Renal Acute (Acute Kidney Injury) (HCC) (Primary Dx) 01/01/2024 Intake [facility] from Last 3 Months Allergies No known active allergies Medications ferrous sulfate 325 mg (65 mg iron) DR tablet Take 1 tablet (65 mg of iron total) by mouth daily. 90 tablet 3 01/29/20 23 Suspended Additional Information Patient taking differently: 130 mg of ironoral Daily, Reported on 01/04/2024 omeprazole (PriLOSEC) [address] capsule Take 20 mg by mouth daily as needed. 07/30/19 23 Discontinued (Therapy completed) multivitamin tablet Take 1 tablet by mouth daily. Suspended montelukast (Singulair) 10 mg tablet Take 1 tablet by mouth at bedtime. 06/01/19 24 Discontinued (Therapy completed) losartan-hydro CHLOROthiazide (Hyzaar) 100-25 [...] Med Name: Prostate Complete Zinc, Selenium, Saw Rose, Lycopene, Turmeric, Resveratrol, Pomegranate Suspended Active Problems Problem Noted Date Diagnosed Date Failure Renal Acute (Acute Kidney Injury) 2023 Pneumonia 01/01/2024 Mass Lung 01/01/2024 Hyponatremia 01/01/2024 Hypokalemia 01/01/2024 Immunizations Name Administration Dates Next Due influenza [...] on file Legal Sex Male 3:31 PM ORCHARD PRUNER Gender Identity Not on file Sexual Orientation Not on file Last Filed Vital Signs Vital Sign Reading Time Taken Comments Blood Pressure 91/67 01/07/2024 10:31 PM ORCHARD PRUNER Pulse 108 01/07/2024 2:28 PM ORCHARD PRUNER Temperature 36.5 C (97.7 F) 01/07/2024 10:31 PM ORCHARD PRUNER Respiratory Rate 28 01/07/2024 10:31 PM ORCHARD PRUNER Oxygen Saturation 96% 01/07/2024 6:00 PM ORCHARD PRUNER Inhaled Oxygen Concentration - - Weight 59.1 kg (130 lb 4.7 oz) 01/04/2024 5:46 P M ORCHARD PRUNER Height 170.2 cm (5' 7) 01/01/2024 9:10 PM ORCHARD PRUNER Body Mass Index 20.41 01/01/2024 9:10 PM ORCHARD PRUNER Plan of Treatment Upcoming Encounters Date Type Department Care Team (Late st Contact Info) Description 01/26/2024 1:00 PM ORCHARD PRUNER Office Visit Department of Infectious Diseases in [address] [phone] Clara Jones, PElielA.-C. [address] [place] [phone] Procedures * The patient is currently admitted. The information in this section might not be complete until the patient is discharged. Procedure Name Priority Date/Time Associated Diagnosis Comments HEMOGLOBIN, B Timed 01/07/2024 3:50 PM ORCHARD PRUNER DX CHEST 1 VIEW RAD - Routine (most inpatients and all outpatients) 01/07/2024 7:14 AM ORCHARD PRUNER MORPHOLOGY EVALUATION Routine 01/07/2024 5:29 AM ORCHARD PRUNER PHOSPHORUS (INORGANIC), S Routine 01/07/2024 5:29 AM ORCHARD PRUNER MAGNESIUM, S Routine 01/07/2024 5:29 AM ORCHARD PRUNER BASIC METABOLIC PANEL, S/P Routine 01/07/2024 5:29 AM ORCHARD PRUNER CBC WITH DIFFERENTIAL, B Routine 01/07/2024 5:29 AM ORCHARD PRUNER HEPATIC FUNCTION PANEL, S Routine 01/07/2024 5:29 AM ORCHARD PRUNER MISCELLANEOUS SENT OUT LAB TEST Routine 01/06/2024 11:[address] [facility] [employer] [facility] Routine 01/06/2024 10:59 AM ORCHARD PRUNER DX CHEST 1 VIEW RAD - Routine (most inpatients and all outpatients) 01/06/2024 7:19 AM ORCHARD PRUNER MORPHOLOGY EVALUATION Timed 01/06/2024 5:37 AM ORCHARD PRUNER MANUAL DIFFERENTIAL, B Timed 01/06/2024 5:37 AM ORCHARD PRUNER MAGNESIUM, S Timed 01/06/2024 5:37 AM ORCHARD PRUNER CBC WITH DIFFERENTIAL, B Timed 01/06/2024 5:37 AM ORCHARD PRUNER RENAL FUNCTION PANEL, S Timed 01/06/2024 5:37 AM ORCHARD PRUNER ECG STAT 01/06/2024 5:32 AM ORCHARD PRUNER IR CHEST TUBE PLACEMENT RAD - Routine (most inpatients and all outpatients) 01/05/2024 1:42 PM ORCHARD PRUNER CYTOLOGY NON-ACETYLENE TORCH OPERATOR Routine 01/05/2024 12:5 0 PM ORCHARD PRUNER GLUCOSE, BODY FLUID Timed 01/05/2024 1 2:50 PM ORCHARD PRUNER TRIGLYCERIDES, BF Timed 01/05/2024 12: 50 PM ORCHARD PRUNER PROTEIN, TOTAL, BF Timed 01/05/2024 12 :50 PM ORCHARD PRUNER PH, PLEURAL FLUID Timed 01/05/2024 12: 50 PM ORCHARD PRUNER LACTATE DEHYDROGENASE (LD), BF Timed 01/05/2024 12:50 PM ORCHARD PRUNER CELL COUNT AND DIFFERENTIAL, BF Timed 01/05/2024 12:50 PM ORCHARD PRUNER BACTERIAL CULTURE, ANAEROBIC + SUSC Timed 01/05/2024 12:50 PM ORCHARD PRUNER GRAM STAIN Timed 01/05/2024 12:50 PM ORCHARD PRUNER BACTERIAL CULTURE, AEROBIC + SUSC Timed 01/05/2024 12:50 PM ORCHARD PRUNER MORPHOLOGY EVALUATION Routine 01/05/2024 5:52 AM ORCHARD PRUNER MANUAL DIFFERENTIAL, B Routine 01/05/2024 5:52 AM ORCHARD PRUNER BASIC METABOLIC PANEL, S/P Routine 01/05/2024 5:52 AM ORCHARD PRUNER CBC WITH DIFFERENTIAL, B Routine 01/05/2024 5:52 AM ORCHARD PRUNER PNEUMONIA PANEL, PCR Routine 01/04/2024 7:45 PM ORCHARD PRUNER GRAM STAIN Routine 01/04/2024 7:45 PM ORCHARD PRUNER BACTERIAL CULTURE, AEROBIC + SUSC, RESP Routine 01/04/2024 7:45 PM ORCHARD PRUNER NASAL SCREEN FOR MRSA BY RAPID PCR Routine 01/04/2024 7:45 PM ORCHARD PRUNER NURSING IMAGE EXAM Routine 01/04/2024 7: 40 PM ORCHARD PRUNER (TTE) 2D ECHO DOPPLER COLOR AND CONTRAST Routine 01/04/2024 10:38 AM ORCHARD PRUNER HC URINALYSIS AUTO WO MICRO Routine 01/04/2024 5:56 AM ORCHARD PRUNER PROTEIN/CREATININE RATIO, RANDOM, URINE Routine 01/04/2024 5:56 AM ORCHARD PRUNER URINALYSIS WITH MICROSCOPIC IF INDICATED, U Routine 01/04/2024 5:56 AM ORCHARD PRUNER SODIUM, RANDOM, U Routine 01/04/2024 5:5 6 AM ORCHARD PRUNER NT-PRO B-TYPE NATRIURETIC PEPTIDE (BNP), S Routine 01/04/2024 4:56 AM ORCHARD PRUNER PARATHYROID HORMONE (PTH), S Routine 01/04/2024 4:56 AM ORCHARD PRUNER IRON AND TOT IRON-BINDING CAPACITY, S/P Routine 01/04/2024 4:56 AM ORCHARD PRUNER FERRITIN, S Routine 01/04/2024 4:56 AM ORCHARD PRUNER BASIC METABOLIC PANEL, S/P Routine 01/04/2024 4:56 AM ORCHARD PRUNER CBC WITH DIFFERENTIAL, B Routine 01/04/2024 4:56 AM ORCHARD PRUNER CYTOLOGY NON-ACETYLENE TORCH OPERATOR Timed 01/03/2024 5:09 PM ORCHARD PRUNER US THORACENTESIS RIGHT WITH IMAGING GUIDANCE RAD - Routine (most inpatients and all outpatients) 01/03/2024 5:04 PM ORCHARD PRUNER BASIC METABOLIC PANEL, S/P Timed 01/03/2024 1:56 PM ORCHARD PRUNER HEMODIALYSIS Routine 01/03/2024 11:28 AM ORCHARD PRUNER BACTERIA / CHERI CULTURE, BLOOD Routine 01/03/2024 10:53 AM ORCHARD PRUNER LACTATE FOR SEPSIS WITH REFLEX Routine 01/03/2024 10:52 AM ORCHARD PRUNER BACTERIA / CHERI CULTURE, BLOOD Routine 01/03/2024 10:52 AM ORCHARD PRUNER ALBUMIN, S/P Routine 01/03/2024 10:51 AM ORCHARD PRUNER HEMODIALYSIS Routine 01/03/2024 8:16 AM ORCHARD PRUNER VITAMIN D, IMMUNOASSAY, TOTAL, S Routine 01/03/2024 6:42 AM ORCHARD PRUNER NT-PRO B-TYPE NATRIURETIC PEPTIDE (BNP), S Routine 01/03/2024 6:42 AM ORCHARD PRUNER CALCIUM, IONIZED, S/B Routine 01/03/2024 6:42 AM ORCHARD PRUNER PH BLOOD GAS Routine 01/03/2024 6:42 AM ORCHARD PRUNER CBC WITH DIFFERENTIAL, B Routine 01/03/2024 6:42 AM ORCHARD PRUNER BASIC METABOLIC PANEL, S/P Routine 01/03/2024 6:42 AM ORCHARD PRUNER QUANTIFERON-TB GOLD PLUS, B Routine 01/03/2024 6:42 AM ORCHARD PRUNER HBC TOTAL AB, SERUM Routine 01/03/2024 6 :42 AM ORCHARD PRUNER HBS ANTIBODY, SERUM Routine 01/03/2024 6 :42 AM ORCHARD PRUNER HEPATITIS B SURFACE ANTIGEN Routine 01/03/2024 6:42 AM ORCHARD PRUNER LEUKEMIA/LYMPHOMA, PHENOTYPE, V Timed 01/03/2024 6:10 AM ORCHARD PRUNER CHOLESTEROL, BF Timed 01/03/2024 6:10 AM ORCHARD PRUNER GLUCOSE, BODY FLUID Timed 01/03/2024 6 :10 AM ORCHARD PRUNER CELL COUNT AND DIFFERENTIAL, BF Timed 01/03/2024 6:10 AM ORCHARD PRUNER PROTEIN, TOTAL, BF Timed 01/03/2024 6: 10 AM ORCHARD PRUNER LACTATE DEHYDROGENASE (LD), BF Timed 01/03/2024 6:10 AM ORCHARD PRUNER M TUBERCULOSIS COMPLEX PCR, V Timed 01/03/2024 6:10 AM ORCHARD PRUNER BROAD RANGE BACTERIA PCR AND SEQUENCING Timed 01/03/2024 6:10 AM ORCHARD PRUNER BACTERIAL CULTURE, ANAEROBIC + SUSC Timed 01/03/2024 6:10 AM ORCHARD PRUNER BACTERIAL CULTURE, AEROBIC + SUSC Timed 01/03/2024 6:10 AM ORCHARD PRUNER GRAM STAIN Timed 01/03/2024 6:10 AM ORCHARD PRUNER DX CHEST PORTABLE 1 VIEW RAD - Semiurgent (Fast; most ED patients; some inpatients) 01/02/2024 3:59 PM ORCHARD PRUNER MC ANE CENTRAL LINE GENERIC PERFORMABLE Routine 01/02/2024 3:47 PM ORCHARD PRUNER Failure Renal Acute (Acute Kidney Injury) (HCC) LDA ANE CENTRAL LINE DOUBLE LUMEN ADULT Routine 01/02/2024 3:47 PM ORCHARD PRUNER Failure Renal Acute (Acute Kidney Injury) (HCC) GA US GUIDE VASC ACCESS Routine 01/02/2024 3:47 PM ORCHARD PRUNER Failure Renal Acute (Acute Kidney Injury) (HCC) GA INS NON-BLAINE CVC >5YR Routine 01/02/2024 3:47 PM ORCHARD PRUNER Failure Renal Acute (Acute Kidney Injury) (HCC) GENERAL SURGERY IMAGE EXAM Routine 01/02/2024 3:30 PM ORCHARD PRUNER HEMODIALYSIS Routine 01/02/2024 2:44 PM ORCHARD PRUNER MAGNESIUM, S Routine 01/02/2024 11:32 AM ORCHARD PRUNER BASIC METABOLIC PANEL, S/P Routine 01/02/2024 11:32 AM ORCHARD PRUNER US KIDNEYS BILATERAL WITH BLADDER RAD - Routine (most inpatients and all outpatients) 01/02/2024 10:15 AM ORCHARD PRUNER DX CHEST PORTABLE 1 VIEW RAD - Semiurgent (Fast; most ED patients; some inpatients) 01/02/2024 4:24 AM ORCHARD PRUNER CREATINE KINASE (CK), S Routine 01/02/2024 4:10 AM ORCHARD PRUNER ALBUMIN, S/P Routine 01/02/2024 4:10 AM ORCHARD PRUNER CALCIUM, IONIZED, S/B Routine 01/02/2024 4:10 AM ORCHARD PRUNER PH BLOOD GAS Routine 01/02/2024 4:10 AM ORCHARD PRUNER PHOSPHORUS (INORGANIC), S Routine 01/02/2024 3:41 AM ORCHARD PRUNER MAGNESIUM, S Routine 01/02/2024 3:41 AM ORCHARD PRUNER LACTATE, B STAT 01/02/2024 3:41 AM ORCHARD PRUNER NT-PRO B-TYPE NATRIURETIC PEPTIDE (BNP), S Routine 01/02/2024 3:41 AM ORCHARD PRUNER VENOUS BLOOD GAS W/COOX, B Routine 01/02/2024 3:41 AM ORCHARD PRUNER OSMOLALITY, S Routine 01/02/2024 3:41 AM ORCHARD PRUNER CBC WITH DIFFERENTIAL, B Routine 01/02/2024 3:41 AM ORCHARD PRUNER BASIC METABOLIC PANEL, S/P Routine 01/02/2024 3:41 AM ORCHARD PRUNER ECG Routine 01/02/2024 12:39 AM ORCHARD PRUNER OUTSIDE CT BODY Routine 01/01/2024 2:25 PM ORCHARD PRUNER OUTSIDE CT NEURO Routine 01/01/2024 2:20 PM ORCHARD PRUNER from Last 3 Months Results * (ABNORMAL) Hemoglobin (01/07/2024 3:50 PM ORCHARD PRUNER) Hemoglobin 9.1(L) 13.2 - 16.6 g/dL 01/07/2024 3:59 PM ORCHARD PRUNER MKTO Blood (Blood, Venous) 01/07/2024 3:50 PM ORCHARD PRUNER 01/07/2024 3:55 PM ORCHARD PRUNER us Chapito Velazquez D.O. LAB BLOOD ADD-ON Final Resul t [facility] [address] [place] [address], [facility] MKTO [facility] [place] [address] [place] [address] * DX Chest 1 View (01/07/2024 7:14 AM ORCHARD PRUNER) Only the most recent of2 resultswithin the time period is included. Anatomical Region Laterality Modality Chest, Thoracic RST LOS, Tho racic ARZ LOS, Thoracic FLA LOS N/A Digital Radiography Impressions 01/07/2024 7:42 AM ORCHARD PRUNER No significant change. Narrative 01/07/2024 7:42 AM ORCHARD PRUNER EXAM: DX CHEST 1 VIEW COMPARISON: Chest [...] IMPRESSION: No significant change. Fidencio Oliva M.D. IMG DIAGNOSTIC IMAGING PROCED URES Final Result * (ABNORMAL) Morphology Evaluation (01/07/2024 5:29 AM ORCHARD PRUNER) Only the most recent of3 resultswithin the time period is included. RBC Morphology See Specific Findings 01/07/2024 6:24 AM ORCHARD PRUNER MKTO PLT Morphology Normal 01/07/2024 6:24 AM ORCHARD PRUNER MKTO PLT Estimate Adequate Adequate 01/07/2024 6:24 AM ORCHARD PRUNER MKTO Anisocytosis Slight(A) 01/07/2024 6:24 AM ORCHARD PRUNER MKTO Basophilic Stippling Slight(A) 01/07/2024 6:24 AM ORCHARD PRUNER MKTO Poikilocytosis Slight(A) Not Seen 01/07/2024 6:24 AM ORCHARD PRUNER MKTO Blood 01/07/2024 5:29 AM ORCHARD PRUNER 01/07/2024 5:51 AM ORCHARD PRUNER Jeremías Fernandez M.D. LAB BLOOD ADD-ON Final Resul t [facility] [address] [place] [address], [facility] MKTO [facility] [place] [address] [place] [phone] * (ABNORMAL) Hepatic Function Panel (01/07/2024 5:29 AM ORCHARD PRUNER) Bilirubin, Total, P <0.2 0.0 - 1.2 mg/dL 01/07/2024 6:19 AM ORCHARD PRUNER MKTO Bilirubin, Direct, P 0.1 0.0 - 0.3 mg/dL 01/07/2024 6:19 AM ORCHARD PRUNER MKTO Aspartate Aminotransferase (AST), P 25 8 - 48 U/L 01/07/2024 6:19 AM ORCHARD PRUNER MKTO Alanine Aminotransferase (ALT), P 15 7 - 55 U/L 01/07/2024 6:19 AM ORCHARD PRUNER MKTO Alkaline Phosphatase, P 110 40 - 129 U/L 01/07/2024 6:19 AM ORCHARD PRUNER MKTO Albumin, P 2.5(L) 3.5 - 5.0 g/dL 01/07/2024 6:19 AM ORCHARD PRUNER MKTO Protein, Total, P 5.2(L) 6.3 - 7.9 g/dL 01/07/2024 6:19 AM ORCHARD PRUNER MKTO Blood (Blood, Venous) 01/07/2024 5:29 AM ORCHARD PRUNER 01/07/2024 5:51 AM ORCHARD PRUNER us Jeremías Fernandez M.D. LAB BLOOD ADD-ON Final Resul t [facility] [address] [place] [address], [facility] MKTO [facility] [place] [address] * (ABNORMAL) CBC with Differential, Blood (01/07/2024 5:29 AM ORCHARD PRUNER) Only the most recent of6 resultswithin the time period is included. Hemoglobin 8.7(L) 13.2 - 16.6 g/dL 01/07/2024 6:23 AM ORCHARD PRUNER MKTO Hematocrit 26.8(L) 38.3 - 48.6 % 01/07/2024 6:23 AM ORCHARD PRUNER MKTO Erythrocytes 2.84(L) 4.35 - 5.65 x10(12)/L 01/07/2024 6:23 AM ORCHARD PRUNER MKTO MCV 94.4 78.2 - 97.9 fL 01/07/2024 6:23 AM ORCHARD PRUNER MKTO RBC Distrib Width 14.7(H) 11.8 - 14.5 % 01/07/2024 6:23 AM ORCHARD PRUNER MKTO Platelet Count 263 135 - 317 x10(9)/L 01/07/2024 6:23 AM ORCHARD PRUNER MKTO Leukocytes 14.9(H) 3.4 - 9.6 x10(9)/L 01/07/2024 6:23 AM ORCHARD PRUNER MKTO Neutrophils 12.77(H) 1.56 - 6.45 x10(9)/L 01/07/2024 6:23 AM ORCHARD PRUNER MKTO Lymphocytes 0.90(L) 0.95 - 3.07 x10(9)/L 01/07/2024 6:23 AM ORCHARD PRUNER MKTO Monocytes 0.87(H) 0.26 - 0.81 x10(9)/L 01/07/2024 6:23 AM ORCHARD PRUNER MKTO Eosinophils 0.23 0.03 - 0.48 x10(9)/L 01/07/2024 6:23 AM ORCHARD PRUNER MKTO Basophils 0.09(H) 0.01 - 0.08 x10(9)/L 01/07/2024 6:23 AM ORCHARD PRUNER MKTO Blood (Blood, Venous) 01/07/2024 5:29 AM ORCHARD PRUNER 01/07/2024 5:51 AM ORCHARD PRUNER Jeremías Fernandez M.D. LAB BLOOD ADD-ON Final Resul t [facility] [address] [place] [address], [place] [id number] * Phosphorus Inorganic (01/07/2024 5:29 AM ORCHARD PRUNER) Only the most recent of2 resultswithin the time period is included. Phosphorus (Inorganic), P 2.5 2.5 - 4.5 mg/dL 01/07/2024 6:19 AM ORCHARD PRUNER MKTO Blood (Blood, Venous) 01/07/2024 5:29 AM ORCHARD PRUNER 01/07/2024 5:51 AM ORCHARD PRUNER us Jeremías Fernandez M.D. LAB BLOOD ADD-ON Final Resul t [facility] [address] [place] [address], [facility] [place] [address] * Magnesium (01/07/2024 5:29 AM ORCHARD PRUNER) Only the most recent of4 resultswithin the time period is included. Magnesium, P 1.7 1.7 - 2.3 mg/dL 01/07/2024 6:19 AM ORCHARD PRUNER MKTO Blood (Blood, Venous) 01/07/2024 5:29 AM ORCHARD PRUNER 01/07/2024 5:51 AM ORCHARD PRUNER us Jeremías Fernandez M.D. LAB BLOOD ADD-ON Final Resul t [facility] [address] [place] [address], [place] [id number] * (ABNORMAL) Basic Metabolic Panel (01/07/2024 5:29 AM ORCHARD PRUNER) Only the most recent of7 resultswithin the time period is included. Potassium, P 3.3(L) 3.6 - 5.2 mmol/L 01/07/2024 6:19 AM ORCHARD PRUNER MKTO Sodium, P 141 135 - 145 mmol/L 01/07/2024 6:19 AM ORCHARD PRUNER MKTO Chloride, P 105 98 - 107 mmol/L 01/07/2024 6:19 AM ORCHARD PRUNER MKTO Bicarbonate, P 24 22 - 29 mmol/L 01/07/2024 6:19 AM ORCHARD PRUNER MKTO Anion Gap, P 12 7 - 15 01/07/2024 6:19 AM ORCHARD PRUNER MKTO BUN (Blood Urea Nitrogen), P 41(H) 8 - 24 mg/dL 01/07/2024 6:19 AM ORCHARD PRUNER MKTO Creatinine 2.01(H) 0.74 - 1.35 mg/dL 01/07/2024 6:19 AM ORCHARD PRUNER MKTO Estimated GFR (eGFR) 32(L) >=60 mL/min/BSA 01/07/2024 6:19 AM ORCHARD PRUNER MKTO Comment: Estimated GFR calculated using the 2020 CKD_EPI creatinine equation. Calcium, Total, P 8.1(L) 8.8 - 10.2 mg/dL 01/07/2024 6:19 AM ORCHARD PRUNER MKTO Glucose, P 108 70 - 140 mg/dL 01/07/2024 6:19 AM ORCHARD PRUNER MKTO Blood (Blood, Venous) 01/07/2024 5:29 AM ORCHARD PRUNER 01/07/2024 5:51 AM ORCHARD PRUNER us Jeremías Fernandez M.D. LAB BLOOD ADD-ON Final Resul t Performing Organization Address City/[facility]/ZIP Co de Phone Number [facility] [address] [place] [address], [place] [id number] * [id number] Karius Test for Pathogen Detection - Miscellaneous Test (01/06/2024 11:36 AM ORCHARD PRUNER) Test Name Karius Test for Pathogen Detection 01/06/2024 11:49 AM ORCHARD PRUNER MKTO Result Specimen sent out; results to follow DEFAULT 01/06/2024 11:49 AM ORCHARD PRUNER MKTO Blood (Blood, Venous) 01/06/2024 11:36 AM ORCHARD PRUNER 01/06/2024 11:49 AM ORCHARD PRUNER us Sarah Rose M.D. LAB MISC ORDERA BLES Final Result Performing Organization Address [facility] Co de Phone Number [facility] [address] [place] [address] * (ABNORMAL) Manual Differential, Blood (01/06/2024 5:37 AM ORCHARD PRUNER) Only the most recent of2 resultswithin the time period is included. Segmented Neutrophils 87(H) 50 - 75 % 01/06/2024 6:34 AM ORCHARD PRUNER MKTO Lymphocytes % 1(L) 18 - 42 % 01/06/2024 6:34 AM ORCHARD PRUNER MKTO Monocytes 5 2 - 11 % 01/06/2024 6:34 AM ORCHARD PRUNER MKTO Eosinophils 3 1 - 3 % 01/06/2024 6:34 AM ORCHARD PRUNER MKTO Basophils 1 0 - 2 % 01/06/2024 6:34 AM ORCHARD PRUNER MKTO Metamyelocytes 1(H) <1 % 01/06/2024 6:34 AM ORCHARD PRUNER MKTO Myelocytes 2(H) <0.5 % 01/06/2024 6:34 AM ORCHARD PRUNER MKTO Manual Absolute Neutrophil Count 12.44(H) 1.56 - 6.45 x10(9)/L 01/06/2024 6:34 AM ORCHARD PRUNER MKTO Comment: ----ADDITIONAL INFORMATION---- The manual absolute neutrophil count is derived from a manual differential count and therefore is not exactly comparable to the automated absolute neutrophil count. Blood 01/06/2024 5:37 AM ORCHARD PRUNER 01/06/2024 5:47 AM ORCHARD PRUNER us Vidhya Tovar P.A.-C. LAB BLOOD ADD-ON Final Resu lt [facility] [address] [place] [address], [facility] MKTO [facility] [place] [address] * (ABNORMAL) Renal Function Panel (01/06/2024 5:37 AM ORCHARD PRUNER) Potassium, P 3.3(L) 3.6 - 5.2 mmol/L 01/06/2024 6:11 AM ORCHARD PRUNER MKTO Sodium, P 142 135 - 145 mmol/L 01/06/2024 6:11 AM ORCHARD PRUNER MKTO Chloride, P 104 98 - 107 mmol/L 01/06/2024 6:11 AM ORCHARD PRUNER MKTO Bicarbonate, P 25 22 - 29 mmol/L 01/06/2024 6:11 AM ORCHARD PRUNER MKTO Anion Gap, P 13 7 - 15 01/06/2024 6:11 AM ORCHARD PRUNER MKTO BUN (Blood Urea Nitrogen), P 37(H) 8 - 24 mg/dL 01/06/2024 6:11 AM ORCHARD PRUNER MKTO Creatinine 1.91(H) 0.74 - 1.35 mg/dL 01/06/2024 6:11 AM ORCHARD PRUNER MKTO Estimated GFR (eGFR) 34(L) >=60 mL/min/BSA 01/06/2024 6:11 AM ORCHARD PRUNER MKTO Comment: Estimated GFR calculated using the 2020 CKD_EPI creatinine equation. Calcium, Total, P 8.4(L) 8.8 - 10.2 mg/dL 01/06/2024 6:11 AM ORCHARD PRUNER MKTO Glucose, P 92 70 - 140 mg/dL 01/06/2024 6:11 AM ORCHARD PRUNER MKTO Albumin, P 2.7(L) 3.5 - 5.0 g/dL 01/06/2024 6:11 AM ORCHARD PRUNER MKTO Phosphorus (Inorganic), P 2.7 2.5 - 4.5 mg/dL 01/06/2024 6:11 AM ORCHARD PRUNER MKTO Blood (Blood, Venous) 01/06/2024 5:37 AM ORCHARD PRUNER 01/06/2024 5:47 AM ORCHARD PRUNER us Vidhya Tovar P.A.-C. LAB BLOOD ADD-ON Final Resu lt [facility] [address] [place] [address], [facility] MKTO [facility] [place] [address] * ECG 12 Lead (01/06/2024 5:32 AM ORCHARD PRUNER) Only the most recent of2 resultswithin the time period is included. Ventricular Rate ECG/Min 98 BPM MUSE GA Interval 164 ms MUSE QRSD Interval 128 ms MUSE QT Interval 398 ms MUSE QTC Interval 508 ms MUSE P [place] 52 degrees MUSE R Arrington -72 degrees MUSE T Wave [place] 53 degrees MUSE 01/06/2024 5:32 AM ORCHARD PRUNER 01/06/2024 5:40 AM ORCHARD PRUNER Impressions MUSE - 01/06/2024 5:40 AM ORCHARD PRUNER Normal sinus rhythm Right bundle branch block [...] APRN, C.N.P. ECG ORDERABLES Sury kaye Result MUSE NA * IR Chest Tube Placement (01/05/2024 1:42 PM ORCHARD PRUNER) Anatomical Region Laterality Modality Chest, Vascular Intervention al RST LOS, Vascular Interventional ARZ LOS, Vascular Interventional FLA LOS N/A X-Ray Angiography Impressions 01/05/2024 2:17 PM ORCHARD PRUNER 1. Right chest tube placement. Narrative 01/05/2024 2:17 PM ORCHARD PRUNER EXAM: IR CHEST TUBE PLACEMENT HISTORY: R [...] medications. Patient education provided by a care steam shovel operating engineer. Patient was ready to learn with no apparent learning barriers were identified. Post-procedure care explained; patient expressed understanding of the content. PROCEDURE DETAILS: Sedation: None. Local anesthesia was achieved with lidocaine. Sedation time: None Estimated Blood Loss: Less than 10 mL. TECHNIQUE: Imaging guidance for drain insertion: Ultrasound and fluoroscopy with permanent image storage Access side: Right Catheter: 12 Kenyan multipurpose pigtail drain Technique: Image guidance was used to localize the collection. A 5 Kenyan Yueh needle catheter was used to access the collection under real time image guidance, and images were saved to PACS. Aspiration yielded purulent fluid. A guidewire was inserted, and the tract was dilated to accommodate a 12 Kenyan pigtail drain. The catheter was secured with [...] medications. Patient education provided by a care steam shovel operating engineer. Patient was ready to learn withno apparent learning barriers were identified. Post-procedure careexplained; patient expressed understanding of the content. PROCEDURE DETAILS: Sedation: None. Local anesthesia was achieved with lidocaine. Sedation time: None Estimated Blood Loss: Less than 10 mL. TECHNIQUE: Imaging guidance for drain insertion: Ultrasound and fluoroscopy withpermanent image storage Access side: Right Catheter: 12 Kenyan multipurpose pigtail drain Technique: Image guidance was used to localize the collection. A 5 FrenchYueh needle catheter was used to access the collection under real timeimage guidance, and images were saved to PACS. Aspiration yielded purulentfluid. A guidewire was inserted, and the tract was dilated to accommodate a 12 Kenyan pigtail drain. Thecatheter was secured with 2-0 Ethilon suture. The catheter was connectedto Pleur-evac Intraprocedural or immediate post-procedural complications: None FINDINGS: Catheter tip location: Final image was demonstrates the catheter tip to belocated in the right pleural space Additional observations: N/A PLAN: Follow-up with pulmonology. IMPRESSION: 1. Right chest tube placement. Fidencio Oliva M.D. IMG IR PROCEDURES Final Resul t * Cytology Non-ACETYLENE TORCH OPERATOR (01/05/2024 12:50 PM ORCHARD PRUNER) Only the most recent of2 resultswithin the time period is included. 01/07/2024 3:19 PM ORCHARD PRUNER HKCY Disclaimer This test has been modified from the pizza delivery driver's instructions. Its performance characteristics were determined by [facility] in a manner consistent with CLIA requirements. This test has not been cleared or approved by the U.S. Food and Drug Administration. 01/07/2024 3:19 PM ORCHARD PRUNER HKCY Report electronically signed by LOLY Schwartz. Ch.B. I verify that I have examined all relevant slides/materials for the specimen(s) and rendered or confirmed the diagnosis. 01/07/2024 3:19 PM ORCHARD PRUNER HKCY Gross Description 50 ml of cloudy hubbard fluid received. Specimen fixed at 2:20 pm on 01-05-2024. 2 slides and cell block prepared. 01/07/2024 3:19 PM ORCHARD PRUNER HKCY Source A. Pleural, fluid 024 3:19 PM ORCHARD PRUNER HKCY Interpretation A. Pleural, fluid (smears/cell block): Negative for malignancy. Acute inflammation. COMMENT Immunohistochemica l stains with appropriate reactive controls was performed on separate slides on cell block. CK7, WT1, calretinin, TTF1, Napsin A, p40, CK20, NKX3.1 and CDX2: Negative Controls reviewed, results acceptable. 01/07/2024 3:19 PM ORCHARD PRUNER HKCY Fluid 01/05/2024 12:5 0 PM ORCHARD PRUNER 01/06/2024 7:16 AM ORCHARD PRUNER Fidencio Oliva M.D. LAB SURG PATH ORDERABLES Sury l Result [facility] [address] [place] [address], [place] HKCY [address] [facility] [address] [place] [address] * Protein, Total, Body Fluid (01/05/2024 12:50 PM ORCHARD PRUNER) Only the most recent of2 resultswithin the time period is included. Protein, Total, BF 2.6 See Comment g/dL 01/06/2024 11:13 AM ORCHARD PRUNER DTL Comment: ----ADDITIONAL INFORMATION---- A pleural fluid [...] clinical findings. All other fluids refer to www.[employer].com for further interpretive information. This test has been modified from the pizza delivery driver's instructions. Its performance characteristics were determined by [facility] in a manner consistent with CLIA requirements. This test has not been cleared or approved by the U.S. Food and Drug Administration. Fluid Type, Protein, Total PLEURAL 01/06/2024 10:14 AM ORCHARD PRUNER DTL Fluid (Pleural Fluid) 01/05/2024 12:50 PM ORCHARD PRUNER 01/06/2024 10:01 AM ORCHARD PRUNER Fidencio Oliva M.D. LAB BODY FLUIDS AND STOOLS OR DERABLES Final Result [facility] [address] [place] [address], [place] [facility] [address] [place] [address] * Cell Count and Differential, Body Fluid (01/05/2024 12:50 PM ORCHARD PRUNER) Only the most recent of2 resultswithin the time period is included. Fluid Type Pleural/Thor acentesis 01/05/2024 2:19 PM ORCHARD PRUNER MKTO Gross Appearance Purulent 01/05/20 24 2:40 PM ORCHARD PRUNER MKTO Total Nucleated Cells [id number] /[id number] 01/05/2024 2:40 PM ORCHARD PRUNER MKTO Comment: ----REFERENCE VALUE---- Synovial: <150 Peritoneal: <500 Pleural: <500 Pericardial: <500 ----ADDITIONAL INFORMATION---- This test has been modified from the pizza delivery driver's instructions. Its performance characteristics were determined by [facility] in a manner consistent with CLIA requirements. This test has not been cleared or approved by the U.S. Food and Drug Administration. Neutrophils 100 % 01/05/2024 3:04 PM ORCHARD PRUNER MKTO Comment: ----REFERENCE VALUE---- Synovial: <25% Peritoneal: <25% Pleural: <25% Pericardial: <25% Reviewed by: Dr. Morton 01/05/2024 3:05 PM ORCHARD PRUNER MKTO Fluid (Pleural Fluid) 01/05/2024 12:50 PM ORCHARD PRUNER 01/05/2024 1:47 PM ORCHARD PRUNER Fidencio Oliva M.D. LAB BODY FLUIDS AND STOOLS OR DERABLES Final Result [facility] [address] [place] [address], [facility] [place] [address] * Triglycerides, Body Fluid (01/05/2024 12:50 PM ORCHARD PRUNER) Triglycerides, BF 31 See Comment mg/dL 01/06/2024 11:13 AM ORCHARD PRUNER DTL Comment: ----ADDITIONAL INFORMATION---- Pleural fluid triglyceride concentrations > 110 mg/dL are consistent with chylous effusions. Triglyceride concentrations <50 mg/dL are usually not due to chylous effusions. Peritoneal fluid triglyceride concentrations > 187 mg/dL are most consistent with chylous effusion. All other fluids refer to http://www.[employer].com for further interpretive information. This test has been modified from the pizza delivery driver's instructions. Its performance characteristics were determined by [facility] in a manner consistent with CLIA requirements. This test has not been cleared or approved by the U.S. Food and Drug Administration. Fluid Type Pleural 01/06/2024 10:14 AM ORCHARD PRUNER DTL Fluid (Pleural Fluid) 01/05/2024 12:50 PM ORCHARD PRUNER 01/06/2024 10:01 AM ORCHARD PRUNER Fidencio Oliva M.D. LAB BODY FLUIDS AND STOOLS OR DERABLES Final Result Performing Organization Address [facility]/ZIP Co de Phone Number [facility] [address] [place] [address], [facility] [address] [place] [address] * pH, Pleural Fluid (01/05/2024 12:50 PM ORCHARD PRUNER) pH, Pleural Fluid <6.80 Not Applicable pH 01/05/2024 1:59 PM ORCHARD PRUNER MKTO Comment: Clinical guidelines suggest that in parapneumonic pleural effusions, a pH <7.2 indicate the need for tube drainage. Fluid (Pleural Fluid) 01/05/2024 12:50 PM ORCHARD PRUNER 01/05/2024 1:47 PM ORCHARD PRUNER us Fidencio Oliva M.D. LAB BODY FLUIDS AND STOOLS OR DERABLES Final Result Performing Organization Address [facility] Co de Phone Number [facility] [address] [place] [address], [place] MKTO [facility] [address] [place] [address] * (ABNORMAL) Gram Stain (01/05/2024 12:50 PM ORCHARD PRUNER) Only the most recent of3 resultswithin the time period is included. Gram Stain White blood cells, Many.(A) 01/05/2024 2:46 PM ORCHARD PRUNER MKTO Gram Stain GRAM POSITIVE COCCI Many. (A) 01/05/2024 2:46 PM ORCHARD PRUNER MKTO Fluid (Pleural Fluid) 01/05/2024 12:50 PM ORCHARD PRUNER 01/05/2024 1:47 PM ORCHARD PRUNER Comment:Specimen Source Site : Fluid Fidencio Oliva M.D. LAB MICROBIOLOGY - GENERAL OR DERABLES Final Result Performing Organization Address City/[facility]/ZIP Co de Phone Number [facility] [address] [place] [address], [place] MKTO [facility] [place] [address] [place] [address] * Lactate Dehydrogenase (LD), Body Fluid (01/05/2024 12:50 PM ORCHARD PRUNER) Only the most recent of2 resultswithin the time period is included. Lactate Dehydrogenase (LD), BF >9000 See Comment U/L 01/06/2024 12:17 PM ORCHARD PRUNER DTL Comment: ----ADDITIONAL INFORMATION---- Pleural fluid lactate [...] clinical findings. All other fluids refer to www.[employer].com for further interpretive information. This test has been modified from the pizza delivery driver's instructions. Its performance characteristics were determined by [facility] in a manner consistent with CLIA requirements. This test has not been cleared or approved by the U.S. Food and Drug Administration. Fluid Type, Lactate Dehydrogenase PLEURAL 01/06/2024 10:14 AM ORCHARD PRUNER DTL Fluid (Pleural Fluid) 01/05/2024 12:50 PM ORCHARD PRUNER 01/06/2024 8:29 AM ORCHARD PRUNER Fidencio Oliva M.D. LAB BODY FLUIDS AND STOOLS OR DERABLES Final Result Performing Organization Address [facility]/ZIP Co de Phone Number [facility] [address] [place] [address], [place] DTL [facility] [place] [address] [place] [address] * Glucose, Body Fluid (01/05/2024 12:50 PM ORCHARD PRUNER) Only the most recent of2 resultswithin the time period is included. Glucose, BF 49 See Comment mg/dL 01/06/2024 11:13 AM ORCHARD PRUNER DTL Comment: ----ADDITIONAL INFORMATION---- Body fluid glucose [...] cystic lesions. All other fluids refer to www.[employer].com for further interpretive information. This test has been modified from the pizza delivery driver's instructions. Its performance characteristics were determined by [facility] in a manner consistent with CLIA requirements. This test has not been cleared or approved by the U.S. Food and Drug Administration. Fluid Type, Glucose PLEURAL 01/05 10:14 AM ORCHARD PRUNER DTL Fluid (Pleural Fluid) 01/05/2024 12:50 PM ORCHARD PRUNER 01/06/2024 10:01 AM ORCHARD PRUNER Fidencio Oliva M.D. LAB BODY FLUIDS AND STOOLS OR DERABLES Final Result [facility] [address] [place] [address], [facility] [address] [place] [address] * Pneumonia Panel, PCR (01/04/2024 7:45 PM ORCHARD PRUNER) Pathologist [facility] Specimen Source SPUTUM 10:43 PM ORCHARD PRUNER MKTO Acinetobacter calcoaceticus-balbir annii complex Undetected Undetected copies/mL 01/04/2024 10:43 PM ORCHARD PRUNER MKTO Enterobacter cloacae complex Undetected Undetected copies/mL 01/04/2024 10:43 PM ORCHARD PRUNER MKTO Escherichia coli Undetected Undetected copies/mL 01/04/2024 10:43 PM ORCHARD PRUNER MKTO Haemophilus influenzae Undetected Undetected copies/mL 01/04/2024 10:43 PM ORCHARD PRUNER MKTO Klebsiella aerogenes Undetected Undetected copies/mL 01/04/2024 10:43 PM ORCHARD PRUNER MKTO Klebsiella oxytoca Undetected Undetected copies/mL 01/04/2024 10:43 PM ORCHARD PRUNER MKTO Klebsiella pneumoniae complex Undetected Undetected copies/mL 01/04/2024 10:43 PM ORCHARD PRUNER MKTO Moraxella catarrhalis Undetected Undetected copies/mL 01/04/2024 10:43 PM ORCHARD PRUNER MKTO Proteus species Undetected Undetected copies/mL 01/04/2024 10:43 PM ORCHARD PRUNER MKTO Pseudomonas aeruginosa Undetected Undetected copies/mL 01/04/2024 10:43 PM ORCHARD PRUNER MKTO Serratia marcescens Undetected Undetected copies/mL 01/04/2024 10:43 PM ORCHARD PRUNER MKTO Staphylococcus aureus complex Undetected Undetected copies/mL 01/04/2024 10:43 PM ORCHARD PRUNER MKTO Streptococcus agalactiae Undetected Undetected copies/mL 01/04/2024 10:43 PM ORCHARD PRUNER MKTO Streptococcus pneumoniae Undetected Undetected copies/mL 01/04/2024 10:43 PM ORCHARD PRUNER MKTO Streptococcus pyogenes Undetected Undetected copies/mL 01/04/2024 10:43 PM ORCHARD PRUNER MKTO Chlamydia pneumoniae Undetected Undetected 01/04/2024 10:43 PM ORCHARD PRUNER MKTO Legionella pneumophila Undetected Undetected 01/04/2024 10:43 PM ORCHARD PRUNER MKTO Mycoplasma pneumoniae Undetected Undetected 01/04/2024 10:43 PM ORCHARD PRUNER MKTO Adenovirus Undetected Undetected 01/04/2024 10:43 PM ORCHARD PRUNER MKTO Coronavirus Undetected Undetected 01/04/2024 10:43 PM ORCHARD PRUNER MKTO Human Metapneumovirus Undetected Undetected 01/04/2024 10:43 PM ORCHARD PRUNER MKTO Human Rhinovirus/Enterov irus Undetected Undetected 01/04/2024 10:43 PM ORCHARD PRUNER MKTO Influenza A Undetected Undetected 01/04/2024 10:43 PM ORCHARD PRUNER MKTO Influenza B Undetected Undetected 01/04/2024 10:43 PM ORCHARD PRUNER MKTO Parainfluenza Undetected Undetected 01/04/2024 10:43 PM ORCHARD PRUNER MKTO Respiratory Syncytial Virus Undetected Undetected 01/04/2024 10:43 PM ORCHARD PRUNER MKTO Comment: ----ADDITIONAL INFORMATION---- This assay is performed using the FDA-cleared FilmArray Pneumonia Panel (PN) ([employer] book.). Any initial empiric treatment guidance provided in [...] SARS-CoV-2. Sputum (Sputum) 01/04/2024 7 :45 PM ORCHARD PRUNER 01/04/2024 7:55 PM ORCHARD PRUNER Octavio Cavazos, Ch.B. LAB MICROBIOLOGY - GENERAL ORDERABLES Final Result Performing Organization Address [facility] Co de Phone Number [facility] [address] [place] [address], [place] [address] * Bacterial Culture, Aerobic + Susceptibility, Respiratory (01/04/2024 7:45 PM ORCHARD PRUNER) Bacterial Culture, Aerobic, Resp No growth after 2 days of incubation. 01/06/2024 8:19 AM ORCHARD PRUNER [facility] Sputum (Sputum) 01/04/2024 7 :45 PM ORCHARD PRUNER 01/04/2024 7:55 PM ORCHARD PRUNER Comment:Specimen Source Site : Sputum Octavio Cavazos, Ch.B. LAB MICROBIOLOGY - GENERAL ORDERABLES Final Result Performing Organization Address City/[facility]/ZIP Co de Phone Number [facility] [address] [place] [address], [place] [address] * MRSA PCR, Nasal (01/04/2024 7:45 PM ORCHARD PRUNER) MRSA Screen, Nasal by PCR Negative Negative 01/04/2024 9:24 PM ORCHARD PRUNER [facility] Swab (Nares) 01/04/2024 7:45 PM ORCHARD PRUNER 01/04/2024 7:53 PM ORCHARD PRUNER us Frank Mccall M.D. LAB MICROBIOLOGY - GENERAL ORDERABLES Final Result [facility] [address] [place] [address], [place] MKTO [facility] [place] [address] [place] [address] * Ankle, Right-Nursing Image Exam (01/04/2024 7:40 PM ORCHARD PRUNER) 01/04/2024 7:39 PM ORCHARD PRUNER Narrative IIMS - 01/04/2024 7:42 PM ORCHARD PRUNER This order has been created and auto-finalized to support the import of images acquired without order. The clinical documentation to support these images can be found on the encounter that produced images. us Provider Not In System IMG NON RAD IMAGING PROCE DURES Final Result Performing Organization Address City/[facility] Co de Phone Number IIMS NA * (TTE) 2D ECHO DOPPLER COLOR AND CONTRAST (01/04/2024 10:38 AM ORCHARD PRUNER) Ejection Fraction 59 MC CV EIMS Sinus [...] Region Laterality Modality Echocardiography 01/04/2024 9:49 AM ORCHARD PRUNER Impressions 01/04/2024 11:49 AM ORCHARD PRUNER Echo performed at the patient's bedside. LEFT [...] per Echocardiography Contrast Administration Protocol Reference Document [id number] Rev 05/30/2021. Patient met an inclusion criterion and did not have contraindications in screening sections. For the complete report, see the Order-Level Documents. Narrative 01/04/2024 11:49 AM ORCHARD PRUNER For the complete report, see the Order-Level [...] administered per EchocardiographyContrast Administration Protocol Reference Document [id number] Rev05/30/2021. Patient met an inclusion criterion and did not havecontraindications in screening sections. For the complete report, see the Order-Level Documents. us Jet Palomares M.D. CV ECHO PROCEDURES Sury l Result * (ABNORMAL) Urinalysis with Microscopic if Indicated (01/04/2024 5:56 AM ORCHARD PRUNER) Source Urine, Urine, Midstream 01/04/2024 6:03 AM ORCHARD PRUNER MKTO Clarity Cloudy(A) Clear 01/04/2024 6:37 AM ORCHARD PRUNER MKTO Color Yellow 01/04/2024 6:37 AM ORCHARD PRUNER MKTO Comment: ----REFERENCE VALUE---- Colorless Yellow Veronica Blood Negative Negative 01/04/2024 6:37 AM ORCHARD PRUNER MKTO Nitrite Negative Negative 01/04/2024 6:37 AM ORCHARD PRUNER MKTO Leukocyte Esterase Negative Negative 01/04/2024 6:37 AM ORCHARD PRUNER MKTO Protein 30(A) mg/dL 01/04/2024 6:37 AM ORCHARD PRUNER MKTO Comment: ----REFERENCE VALUE---- Negative Trace Glucose Negative Negative mg/dL 01/04/2024 6:37 AM ORCHARD PRUNER MKTO Ketone Trace(A) Negative mg/dL 01/04/2024 6:37 AM ORCHARD PRUNER MKTO Bilirubin Negative Negative 01/04/2024 6:37 AM ORCHARD PRUNER MKTO pH 5.0 5.0 - 8.0 01/04/2024 6:37 AM ORCHARD PRUNER MKTO Specific [place] 1.014 1.001 - 1.035 01/04/2024 6:37 AM ORCHARD PRUNER MKTO Urobilinogen 0.2 0.2 - 1.0 mg/dL 01/04/2024 6:37 AM ORCHARD PRUNER MKTO Urine (Urine, Midstream) 01/04/2024 5:56 AM ORCHARD PRUNER 01/04/2024 6:02 AM ORCHARD PRUNER us Jet Palomares M.D. LAB URINE ORDERABLES Fi nal Result Performing Organization Address [facility] Co de Phone Number [facility] [address] [place] [address], [place] [address] * Sodium, Random, Urine (01/04/2024 5:56 AM ORCHARD PRUNER) Sodium, Random, U 28 mmol/L 01/04/2024 6:54 AM ORCHARD PRUNER MKTO Comment: ----REFERENCE VALUE---- Random urine sodium may be interpreted in conjunction with serum sodium, using both values to calculate fractional excretion of sodium. Urine (Urine, Midstream) 01/04/2024 5:56 AM ORCHARD PRUNER 01/04/2024 6:01 AM ORCHARD PRUNER us Fausto Bey M.D. LAB URINE ORDERABLES Final Resu lt Performing Organization Address [facility] Co de Phone Number [facility] [address] [place] [address], [place] [address] * (ABNORMAL) Microscopic Automated (01/04/2024 5:56 AM ORCHARD PRUNER) White Blood Cells 4-10(A) /hpf 01/04/2024 6:58 AM ORCHARD PRUNER MKTO Comment: ----REFERENCE VALUE---- Males: 0-3 Females: 0-10 Unknown: 0-10 Red Blood Cells None Seen 0 - 2 /hpf 01/04/2024 6:58 AM ORCHARD PRUNER MKTO Hyaline Casts 4-10 /lpf 01/04/2024 6:58 AM ORCHARD PRUNER MKTO Squamous Cells Occ-3 /hpf 01/04/2024 6:58 AM ORCHARD PRUNER MKTO Urine 01/04/2024 5:56 AM ORCHARD PRUNER 01/04/2024 6:02 AM ORCHARD PRUNER us Jet Palomares M.D. LAB URINE ORDERABLES Fi nal Result Performing Organization Address [facility] Co de Phone Number [facility] [address] [place] [address], [place] [address] * (ABNORMAL) Protein/Creatinine Ratio, Random, Urine (01/04/2024 5:56 AM ORCHARD PRUNER) Protein, Total, Random, U 33 mg/dL 01/04/2024 6:54 AM ORCHARD PRUNER MKTO Creatinine, Random, U 94 16 - 326 mg/dL 01/04/2024 6:54 AM ORCHARD PRUNER MKTO Protein/Creati nine Ratio 0.35(H) <0.18 mg/mg 01/04/2024 6:54 AM ORCHARD PRUNER MKTO Urine (Urine, Midstream) 01/04/2024 5:56 AM ORCHARD PRUNER 01/04/2024 6:02 AM ORCHARD PRUNER us Jet Palomares M.D. LAB URINE ORDERABLES Fi nal Result Performing Organization Address [facility] Co de Phone Number [facility] [address] [place] [address], [facility] in [address] [address] * (ABNORMAL) NT-Pro B-Type Natriuretic Peptide (BNP) (01/04/2024 4:56 AM ORCHARD PRUNER) Only the most recent of3 resultswithin the time period is included. NT-Pro BNP 5163(H) <=540 pg/mL 01/04/2024 8:20 AM ORCHARD PRUNER MKTO Comment: NT-proBNP values less than 300 pg/mL [...] failure. Blood (Blood, Venous) 01/04/2024 4:56 AM ORCHARD PRUNER 01/04/2024 8:01 AM ORCHARD PRUNER us Portia Ramos M.D., Ph.D. LAB BLOOD ADD-ON Final Res ult Performing Organization Address [facility] de Phone Number [facility] [address] [place] [address], [address] [address] * (ABNORMAL) Iron and Total Iron-Binding Capacity (01/04/2024 4:56 AM ORCHARD PRUNER) Iron 38(L) 50 - 150 mcg/dL 01/04/2024 8:32 AM ORCHARD PRUNER MKTO Total Iron Binding Capacity 79(L) 250 - 400 mcg/dL 01/04/2024 8:32 AM ORCHARD PRUNER MKTO Percent Saturation 48 14 - 50 % 01/04/2024 8:32 AM ORCHARD PRUNER MKTO Blood (Blood, Venous) 01/04/2024 4:56 AM ORCHARD PRUNER 01/04/2024 8:02 AM ORCHARD PRUNER us Portia Ramos M.D., Ph.D. LAB BLOOD ADD-ON Final Res ult Performing Organization Address [facility] de Phone Number [facility] [address] [place] [address], [address] [address] * Parathyroid Hormone (PTH) (01/04/2024 4:56 AM ORCHARD PRUNER) Parathyroid Hormone (PTH), S 43 15 - 65 pg/mL 01/04/2024 8:32 AM ORCHARD PRUNER MKTO Comment: Biotin has been identified by the pizza delivery driver as a potential interfering substance. Higher concentrations of biotin may be found in multivitamins, hair/nail supplements, and workout supplements. If the result does not match clinical observations, repeat testing after patient refrains from the use of supplements for at least 12 hours. Blood (Blood, Venous) 01/04/2024 4:56 AM ORCHARD PRUNER 01/04/2024 8:02 AM ORCHARD PRUNER us Portia Ramos M.D., Ph.D. LAB BLOOD ADD-ON Final Res ult Performing Organization Address [facility] Co de Phone Number [facility] [address] [place] [address], [address] [address] * (ABNORMAL) Ferritin (01/04/2024 4:56 AM ORCHARD PRUNER) Ferritin, S 1703(H) 31 - 409 mcg/L 01/04/2024 8:32 AM ORCHARD PRUNER [facility] Comment: Biotin has been identified by the pizza delivery driver as a potential interfering substance. Higher concentrations of biotin may be found in multivitamins, hair/nail supplements, and workout supplements. If the result does not match clinical observations, repeat testing after patient refrains from the use of supplements for at least 12 hours. Blood (Blood, Venous) 01/04/2024 4:56 AM ORCHARD PRUNER 01/04/2024 8:02 AM ORCHARD PRUNER us Portia Ramos M.D., Ph.D. LAB BLOOD ADD-ON Final Res ult Performing Organization Address City/[facility] Co de Phone Number [facility] [address] [place] [address], [address] [address] * US Thoracentesis Right with Imaging Guidance (01/03/2024 5:04 PM ORCHARD PRUNER) Anatomical Region Laterality Modality Chest, Ultrasound RST LOS, U ltrasound ARZ LOS, Procedure FLA LOS, Abdominal FLA LOS, Procedural, Procedural NWWI LOS Right Ultrasound Impressions 01/04/2024 8:03 AM ORCHARD PRUNER Successful ultrasound guided diagnostic and therapeutic right thoracentesis. Narrative 01/04/2024 8:03 AM ORCHARD PRUNER EXAM: US THORACENTESIS RIGHT WITH IMAGING GUIDANCE [...] medications. Patient education provided by the care steam shovel operating engineer. Ready to learn, no apparent learning barriers [...] medications. Patient education provided by the care steam shovel operating engineer. Ready to learn, no apparent learningbarriers were identified. Post-procedure care explained; patient expressedunderstanding of the content. IMPRESSION: Successful ultrasound guided diagnostic and therapeutic rightthoracentesis. us Octavio Cavazos, Ch.B. IMG US PROCEDURES Final Result * Lactate for Sepsis with Reflex (01/03/2024 10:52 AM ORCHARD PRUNER) Lactate, B 1.1 0.5 - 2.2 mmol/L 01/03/2024 11:01 AM ORCHARD PRUNER MKTO Blood (Blood, Venous) 01/03/2024 10:52 AM ORCHARD PRUNER 01/03/2024 10:58 AM ORCHARD PRUNER Octavio Cavazos, Ch.B. LAB BLOOD NON ADD- ON Final Result [facility] [address] [place] [address] * (ABNORMAL) Albumin (01/03/2024 10:51 AM ORCHARD PRUNER) Only the most recent of2 resultswithin the time period is included. Albumin, P 3.0(L) 3.5 - 5.0 g/dL 01/03/2024 1:15 PM ORCHARD PRUNER MKTO Blood (Blood, Venous) 01/03/2024 10:51 AM ORCHARD PRUNER 01/03/2024 1:02 PM ORCHARD PRUNER Jet Palomares M.D. LAB BLOOD ADD-ON Final Result [facility] [address] [place] [address], [place] [address] * pH (01/03/2024 6:42 AM ORCHARD PRUNER) Only the most recent of2 resultswithin the time period is included. pH 7.43 7.35 - 7.45 pH 01/03/2024 7:00 AM ORCHARD PRUNER MKTO Blood 01/03/2024 6:42 AM ORCHARD PRUNER 01/03/2024 6:55 AM ORCHARD PRUNER us Deanna Lewis APRN, C.N.P., D.N.P., M.S.N. LAB H ISTORICAL ORDERS Final Result [facility] [address] [place] [address], [facility] MKTO [facility] [place] [address] [place] [address] * (ABNORMAL) QuantiFERON-Tb Gold Plus, Blood (01/03/2024 6:42 AM ORCHARD PRUNER) QuantiFERON-TB Gold Plus Result Indetermi parviz(A) Negative 01/07/2024 2:48 PM ORCHARD PRUNER [facility] Comment: Indeterminate due to a low interferon-gamma level in the mitogen (positive control) tube. This may occur due to a low lymphocyte count, reduced lymphocyte activity or inability of the patient's lymphocytes to generate interferon-gamma. The reference range for the 'Mitogen minus Nil Result' is >=0.5 IU/mL. TB1 Ag minus Nil Result 0.00 IU/mL 01/07/2024 2:48 PM ORCHARD PRUNER [facility] TB2 Ag minus Nil Result 0.00 IU/mL 01/07/2024 2:48 PM ORCHARD PRUNER [facility] Mitogen minus Nil Result 0.01 IU/mL 01/07/2024 2:48 PM ORCHARD PRUNER [facility] Nil Result 0.04 IU/mL 01/07/2024 2:48 PM ORCHARD PRUNER [facility] Blood (Blood, Venous) 01/03/2024 6:42 AM ORCHARD PRUNER 01/04/2024 10:57 AM ORCHARD PRUNER Narrative [facility] - 01/07/2024 2:48 PM ORCHARD PRUNER Specimen Information: Specimen ID: [id number] Specimen Type: Blood Specimen Collection Start Date: 01/03/2024 6:42 AM Specimen Received Date: 01/04/2024 10:57 AM Specimen ID: [id number] Specimen Type: Blood Specimen Collection Start Date: 01/03/2024 6:42 AM Specimen Received Date: 01/04/2024 10:57 AM Specimen ID: [id number] Specimen Type: Blood Specimen Collection Start Date: 01/03/2024 6:42 AM Specimen Received Date: 01/04/2024 10:57 AM Specimen ID: [id number] Specimen Type: Blood Specimen Collection Start Date: 01/03/2024 6:42 AM Specimen Received Date: 01/04/2024 10:57 AM Jet Palomares M.D. LAB MICROBIOLOGY - BLOO D ORDERABLES Final Result Performing Organization Address [facility] Co de Phone Number [facility] [address] [place] [phone], [facility] in [address] [address] * Vitamin D, Immunoassay, Total, Serum (01/03/2024 6:42 AM ORCHARD PRUNER) Vitamin D, Immunoassay, Total, S 23 20 - 80 ng/mL 01/04/2024 8:37 AM ORCHARD PRUNER [facility] Comment: Optimum levels within the healthy population are 20-50, patients with bone disease may benefit from high levels within this range Blood (Blood, Venous) 01/03/2024 6:42 AM ORCHARD PRUNER 01/04/2024 8:02 AM ORCHARD PRUNER Portia Ramos M.D., Ph.D. LAB BLOOD ADD-ON Final Res ult Performing Organization Address City/[facility] Co de Phone Number [facility] [address] [place] [address], [facility] MKTO [facility] [place] [address] * HBc Total Ab, Serum (01/03/2024 6:42 AM ORCHARD PRUNER) HBc Total Ab, S Negative Negative 01/04/2024 11:52 AM ORCHARD PRUNER [facility] Blood (Blood, Peripheral Draw) 01/03/2024 6:42 AM ORCHARD PRUNER 01/04/2024 7:28 AM ORCHARD PRUNER us Jet Palomares M.D. LAB MICROBIOLOGY - BLOO D ORDERABLES Final Result [facility] [address] [place] [address] [facility] [address] [place] [address] * HBs Antibody, Serum (01/03/2024 6:42 AM ORCHARD PRUNER) HBs Antibody, S Negative 7:57 AM ORCHARD PRUNER [facility] Comment: Patient is presumed NOT to be immune to infection with HBV. Consumption of high-dose biotin supplement within 12 hours of blood collection for this test can cause false-negative results. ----REFERENCE VALUE---- Unvaccinated: Negative Vaccinated: Positive HBs Antibody, Quantitative, S <3.50 mIU/mL 01/03/2024 7:57 AM ORCHARD PRUNER [facility] Comment: ----REFERENCE VALUE---- <8.50: Negative 8.50-11.49: Indeterminate >=11.50: Positive Blood (Blood, Peripheral Draw) 01/03/2024 6:42 AM ORCHARD PRUNER 01/03/2024 6:55 AM ORCHARD PRUNER us Jet Palomares M.D. LAB MICROBIOLOGY - BLOO D ORDERABLES Final Result Performing Organization Address [facility]/ZIP Co de Phone Number [facility] [address] [place] [phone], [facility] MKTO [address] [address] * Hepatitis B Surface Antigen (01/03/2024 6:42 AM ORCHARD PRUNER) HBs Antigen, S Nonreactive Nonreactive 01/03/2024 8:07 AM ORCHARD PRUNER [facility] Blood (Blood, Peripheral Draw) 01/03/2024 6:42 AM ORCHARD PRUNER 01/03/2024 6:55 AM ORCHARD PRUNER us Jet Palomares M.D. LAB MICROBIOLOGY - BLOO D ORDERABLES Final Result [facility] [address] [place] [address] * (ABNORMAL) Calcium, Ionized (01/03/2024 6:42 AM ORCHARD PRUNER) Only the most recent of2 resultswithin the time period is included. [facility] Calcium, Ionized, B 4.31(L) 4.65 - 5.30 mg/dL 01/03/2024 7:00 AM ORCHARD PRUNER [facility] Blood 01/03/2024 6:42 AM ORCHARD PRUNER 01/03/2024 6:55 AM ORCHARD PRUNER Deanna Lewis APRN, C.N.P., D.N.P., M.S.N. LAB B LOOD NON ADD-ON Final Result [facility] [address] [place] [address] * Leukemia/Lymphoma Immunophenotyping by Flow Cytometry (01/03/2024 6:10 AM ORCHARD PRUNER) [facility] LCMS Result Performed 01/05/2024 1:37 PM ORCHARD PRUNER DTL Final Diagnosis: Pleural fluid, flow cytometric immunophenotyp ing: No monotypic B-cell population or increase in blasts identified. Reviewed by: Blank Crisostomo M.D. 01/05/2024 1:37 PM ORCHARD PRUNER DTL Special Studies: Results: Blasts: Not increased by CD45/side scatter and CD34. B-cells: Absence of GW53-biyxkglk B cells. B-cell markers tested: CD19, CD10 and kappa and lambda surface light chains. T-cells/NK-joelle ls: No aberrant phenotype by CD3 and CD16. Quality assessment: Specimen received within validated guidelines. 01/05/2024 1:37 PM ORCHARD PRUNER DTL Microscopic Description A Hu-Giemsa- stained slide prepared from the flow cytometry specimen is examined. Morphology is suboptimal. 01/05/2024 1:37 PM ORCHARD PRUNER [facility]TL Comment: ----ADDITIONAL INFORMATION---- This test was developed using an analyte specific reagent. Its performance characteristics were determined by [facility] in a manner consistent with CLIA requirements. This test has not been cleared or approved by the U.S. Food and Drug Administration. Fluid (Pleural Fluid, Right) 01/03/2024 6:10 AM ORCHARD PRUNER 01/04/2024 8:57 AM ORCHARD PRUNER Octavio Cavazos, Ch.B. LAB GENETIC TESTIN G Final Result Performing Organization Address [facility] Co de Phone Number [facility] [address] [place] [address], [facility] DT [address] [facility] [address] [place] [address] * M tuberculosis Complex PCR (01/03/2024 6:10 AM ORCHARD PRUNER) [facility] MTB Complex PCR, Specimen Source Fluid, Pleural Fluid, Right 01/06/2024 7:45 PM ORCHARD PRUNER DTL MTB Complex PCR, Result Negative Not Applicable 01/06/2024 7:45 PM ORCHARD PRUNER DTL Comment: A mycobacterial culture must always [...] developed and its performance characteristics determined by [facility] in a manner consistent with CLIA requirements. This test has not been cleared or approved by the U.S. Food and Drug Administration. Fluid (Pleural Fluid, Right) 01/03/2024 6:10 AM ORCHARD PRUNER 01/04/2024 10:24 AM ORCHARD PRUNER Octavio Cavazos, Ch.B. LAB MICROBIOLOGY - GENERAL ORDERABLES Final Result Performing Organization Address [facility]/ZIP Co de Phone Number [facility] [address] [place] [address], [facility] DTL [address] [facility] [address] [facility] [place] [address] * (ABNORMAL) Bacterial Culture, Aerobic + Susceptibility (01/03/2024 6:10 AM ORCHARD PRUNER) Bacterial Culture, Aerobic + Susc STREPTOCOCCUS ANGINOSUS GROUP 4+ (A) 01/06/2024 12:07 PM ORCHARD PRUNER [facility] Fluid (Pleural Fluid, Right) 01/03/2024 6:10 AM ORCHARD PRUNER 01/03/2024 5:08 PM ORCHARD PRUNER Comment:Specimen Source Site : Fluid Narrative Organism [...] Tigecycline SUSCEPTIBILITY, ROLF (MCG/ML) <=0.06 mcg/mL: Susceptible us Octavio Cavazos, Ch.B. LAB MICROBIOLOGY - GENERAL ORDERABLES Final Result [facility] [address] [place] [address], [facility] [address] [place] [address] * Cholesterol, Body Fluid (01/03/2024 6:10 AM ORCHARD PRUNER) Cholesterol, BF 34 See Comment mg/dL 01/05/2024 8:47 AM ORCHARD PRUNER DTL Comment: ----ADDITIONAL INFORMATION---- Pleural fluid cholesterol concentrations > 45 to 65 mg/dL are consistent with exudative effusions. Cholesterol concentrations > 200 mg/dL suggest pseudochylous effusions. Peritoneal fluid cholesterol concentrations > 32 to 70 mg/dL suggest a malignant cause of ascites. All other fluids refer to http://www.CoScales.Startcapps for further interpretive information. This test has been modified from the pizza delivery driver's instructions. Its performance characteristics were determined by [facility] in a manner consistent with CLIA requirements. This test has not been cleared or approved by the U.S. Food and Drug Administration. Fluid Type Pleural 01/05/2024 8:14 AM ORCHARD PRUNER DTL Fluid (Pleural Fluid, Right) 01/03/2024 6:10 AM ORCHARD PRUNER 01/05/2024 7:49 AM ORCHARD PRUNER us Octavio Cavazos, Ch.B. LAB BODY FLUIDS AN D STOOLS ORDERABLES Final Result [facility] [address] [place] [address], [facility] [address] [place] [address] * DX Chest Portable 1 View (01/02/2024 3:59 PM ORCHARD PRUNER) Only the most recent of2 resultswithin the time period is included. Anatomical Region Laterality Modality Chest, Thoracic RST LOS, Tho racic ARZ LOS, Thoracic FLA LOS N/A Digital Radiography Impressions 01/02/2024 4:13 PM ORCHARD PRUNER Right jugular catheter terminates at the mid SVC. No pneumothorax. Narrative 01/02/2024 4:13 PM ORCHARD PRUNER EXAM: DX CHEST PORTABLE 1 VIEW COMPARISON: [...] DIAGNOSTIC IMAGI NG PROCEDURES Final Result * GA INS NON-BLAINE CVC >5YR, GA US GUIDE VASC ACCESS, LDA ANE CENTRAL LINE DOUBLE LUMEN ADULT, MC ANE CENTRAL LINE GENERIC PERFORMABLE (01/02/2024 3:47 PM ORCHARD PRUNER) Nikki Bentley M.D. - 01/02/2024 3:47 PM ORCHARD PRUNER Nikki Salinas M.D. 01/02/2024 3:50 PM Invasive [...] Events: none Patient tolerance of procedure: successful Nikki Salinas M.D. PROCEDURE/MINOR SURG ICAL ORDERABLES Final Result * Non-Radiology Image-General Surgery Image Exam (01/02/2024 3:30 PM ORCHARD PRUNER) Narrative [facility] - 01/06/2024 8:53 PM ORCHARD PRUNER This order has been created and auto-finalized to support the import of images acquired without order. The clinical documentation to support these images can be found on the encounter that produced images. us Provider Not In System IMG NON RAD IMAGING PROCE DURES Final Result [facility] NA * US Kidneys Bilateral with Bladder (01/02/2024 10:15 AM ORCHARD PRUNER) Anatomical Region Laterality Modality Abdomen, Renal, Ultrasound R ST LOS, Ultrasound ARZ LOS, Ultrasound FLA LOS Bilateral Ultrasound Impressions 01/02/2024 10:57 AM ORCHARD PRUNER 1. No hydronephrosis. 2. Bilateral simple appearing renal cysts. Narrative 01/02/2024 10:57 AM ORCHARD PRUNER EXAM: US KIDNEYS BILATERAL WITH BLADDER COMPARISON: [...] * CK (Creatine Kinase) (01/02/2024 4:10 AM ORCHARD PRUNER) Creatine Kinase, P 78 39 - 308 U/L 01/02/2024 9:49 AM ORCHARD PRUNER [facility] Blood (Blood, Venous) 01/02/2024 4:10 AM ORCHARD PRUNER 01/02/2024 9:30 AM ORCHARD PRUNER Jet Palomares M.D. LAB BLOOD ADD-ON Final Result Performing Organization Address City/[facility]/ZIP Co de Phone Number [facility] [address] [place] [address], [facility] [address] [place] [address] * Lactate, B (01/02/2024 3:41 AM ORCHARD PRUNER) Pathologist [facility] Lactate, B 0.8 0.5 - 2.2 mmol/L 01/02/2024 4:47 AM ORCHARD PRUNER [facility] Blood (Blood, Venous) 01/02/2024 3:41 AM ORCHARD PRUNER 01/02/2024 4:45 AM ORCHARD PRUNER us Deanna Lewis APRN, C.N.P., D.N.P., M.S.N. LAB B LOOD NON ADD-ON Final Result Performing Organization Address [facility]/ZIP Co de Phone Number [facility] [address] [place] [address], [facility] [address] [place] [address] * (ABNORMAL) Osmolality (01/02/2024 3:41 AM ORCHARD PRUNER) [facility] Osmolality, S 338(H) 276 - 306 mOsm/kg 01/02/2024 5:40 AM ORCHARD PRUNER [facility] Blood (Blood, Venous) 01/02/2024 3:41 AM ORCHARD PRUNER 01/02/2024 4:05 AM ORCHARD PRUNER us Fausto Bey M.D. LAB BLOOD ADD-ON Final Result Performing Organization Address City/[facility]/ZIP Co de Phone Number [facility] [address] [place] [address], [address] [address] * (ABNORMAL) Blood Gas with Coox, Venous (01/02/2024 3:41 AM ORCHARD PRUNER) pO2, Venous 49 Not applicable mm Hg 01/02/2024 4:14 AM ORCHARD PRUNER [facility] pCO2, Venous 29(L) 41 - 51 mm Hg 4:14 AM ORCHARD PRUNER [facility] pH, Venous 7.29(L) 7.32 - 7.43 pH 01/02/2024 4:14 AM ORCHARD PRUNER [facility] Base Excess, Venous -12 Not applicable mmol/L 01/02/2024 4:14 AM ORCHARD PRUNER [facility] HCO3, Venous 13 Not applicable mmol/L 01/02/2024 4:14 AM ORCHARD PRUNER [facility] Hemoglobin, Venous 9.6(L) 13.2 - 16.6 g/dL 01/02/2024 4:14 AM ORCHARD PRUNER [facility] O2Hb, Venous 79.4 Not applicable % 01/02/2024 4:14 AM ORCHARD PRUNER [facility] COHb, Venous 0.2 <3.0 % 01/02/2024 4:14 AM ORCHARD PRUNER [facility] MetHb, Venous 1.2 <1.5 % 01/02/2024 4:14 AM ORCHARD PRUNER [facility] CtO2, Venous 10.8 Not Applicable vol % 01/02/2024 4:14 AM ORCHARD PRUNER [facility] Blood (Blood, Venous) 01/02/2024 3:41 AM ORCHARD PRUNER 01/02/2024 4:05 AM ORCHARD PRUNER us Fausto Bey M.D. LAB BLOOD NON ADD-ON Final Resu lt [facility] [address] [place] [address], [facility] MKTO [facility] [place] [address] * CT chest abdomen pelv wo con-Outside CT Body (01/01/2024 2:25 PM ORCHARD PRUNER) 01/01/2024 2:17 PM ORCHARD PRUNER Narrative [facility] - 01/01/2024 3:57 PM ORCHARD PRUNER This order has been created and auto-finalized [...] PROCEDURES Final R esult Performing Organization Address [facility] Co de Phone Number [facility] NA * CT HEAD/BRAIN WO CON-Outside CT Neuro (01/01/2024 2:20 PM ORCHARD PRUNER) 01/01/2024 2:17 PM ORCHARD PRUNER Narrative [facility] - 01/01/2024 3:56 PM ORCHARD PRUNER This order has been created and auto-finalized [...] PROCEDURES Final R esult Performing Organization Address [facility] Co de Phone Number II NA from Last 3 Months Insurance [facility] Advance Directives For more information, please contact: [phone] * DNR/DNI (Latest Code Status on File) Date Activated Date Inactivated Comments 01/01/2024 9:20 PM Question Answer Comments DNR/DNI (Do Not Resuscitate/Do Not Intubate): Orquidea motta-Patient Care Teams Radiation Protection Technician Relationship Specialty Start Date End Date Elsewhere, Pcp PCP - General Internal Medicine 01/04/24
--- OUTSIDE RECORDS SUMMARY | 2024-01-08 01:32 | XMS_ITS | Encounter Summary ---
Author Organization [facility] Address [address] [place] [address] Care Team Providers Care Grinder Set Up Operator Centerless Name Role Phone Elsewhere, Pcp Primary Care Provider Unavailabl e Encounter Details Date Type Department Care Team (Late st Contact Info) Description 01/04/2024 7:40 PM EC TEACHER Ancillary Procedure Department of Nursing Arrived Social History Tobacco Use Types Packs/Day Years Used Date Smoking Tobacco: Never Assessed Nutrition Answer Date Recorded Nutrition: EVOO Fat Source Unknown 12/24 Nutrition: Servings of Fruits/Vegetables per Day Not on file 12/24/2022 Dental Answer Date Recorded Dental: Regular Dentist Unknown 12/25/19 Sex and Gender Information Value Date Recorded Sex Assigned at Not on file Legal Sex Male 3:31 PM EC TEACHER Gender Identity Not on file Sexual Orientation Not on file documented as of this encounter Plan of Treatment Upcoming Encounters Date Type Department Care Team (Late st Contact Info) Description 01/26/2024 1:00 PM EC TEACHER Office Visit Department of Infectious Diseases in [address] [phone] Clara Jones P.A.-C. [address] [place] [phone] documented as of this encounter Procedures Procedure Name Priority Date/Time Associated Diagnosis Comments NURSING IMAGE EXAM Routine 01/04/2024 7: 40 PM EC TEACHER documented in this encounter Results * Ankle, Right-Nursing Image Exam (01/04/2024 7:40 PM EC TEACHER) 01/04/2024 7:39 PM EC TEACHER Narrative [facility] - 01/04/2024 7:42 PM EC TEACHER This order has been created and auto-finalized to support the import of images acquired without order. The clinical documentation to support these images can be found on the encounter that produced images. us Provider Not In System IMG NON RAD IMAGING PROCE DURES Final Result [facility] NA documented in this encounter Visit Diagnoses Not on filedocumented in this encounter Care Teams Grinder Set Up Operator Centerless Relationship Specialty Start Date End Date Elsewhere, Pcp PCP - General Internal Medicine 01/04/24 documented as of this encounter
--- OUTSIDE RECORDS SUMMARY | 2024-01-08 01:32 | XMS_ITS ---
Author Organization [facility] Address [address] [place] [address] Care Team Providers Care Netsuite Consultant Name Role Phone Elsewhere, Pcp Primary Care Provider Unavailabl e Dialysis Plan of Treatment Dialysis Prescription As-Of Date Prescribed Dry Weight Primary Se tting 01/03/2024 Acute Dialysis S CA Instructions Modality Prescribed Duration (hours) Frequency Blood Flow Rate Conventional Hemodialysis 3:30 30 0 mL/min Dialysis Access Type Location Dialysate Sodium Level Potassium Level Calcium Level Bicarbonate Level 140 mEq/L 4 mEq/L 3 mEq/L 35 mEq/L from Last 30 Days Procedures * The patient is currently admitted. The information in this section might not be complete until the patient is discharged. Procedure Name Priority Date/Time Associated Diagnosis Comments HEMOGLOBIN, B Timed 01/07/2024 3:50 PM METAL FLOW COORDINATOR DX CHEST 1 VIEW RAD - Routine (most inpatients and all outpatients) 01/07/2024 7:14 AM METAL FLOW COORDINATOR MORPHOLOGY EVALUATION Routine 01/07/2024 5:29 AM METAL FLOW COORDINATOR PHOSPHORUS (INORGANIC), S Routine 01/07/2024 5:29 AM METAL FLOW COORDINATOR MAGNESIUM, S Routine 01/07/2024 5:29 AM METAL FLOW COORDINATOR BASIC METABOLIC PANEL, S/P Routine 01/07/2024 5:29 AM METAL FLOW COORDINATOR CBC WITH DIFFERENTIAL, B Routine 01/07/2024 5:29 AM METAL FLOW COORDINATOR HEPATIC FUNCTION PANEL, S Routine 01/07/2024 5:29 AM METAL FLOW COORDINATOR MISCELLANEOUS SENT OUT LAB TEST Routine 01/06/2024 11:36 AM METAL FLOW COORDINATOR M[facility]. [facility] Routine 01/06/2024 10:59 AM METAL FLOW COORDINATOR DX CHEST 1 VIEW RAD - Routine (most inpatients and all outpatients) 01/06/2024 7:19 AM METAL FLOW COORDINATOR MORPHOLOGY EVALUATION Timed 01/06/2024 5:37 AM METAL FLOW COORDINATOR MANUAL DIFFERENTIAL, B Timed 01/06/2024 5:37 AM METAL FLOW COORDINATOR MAGNESIUM, S Timed 01/06/2024 5:37 AM METAL FLOW COORDINATOR CBC WITH DIFFERENTIAL, B Timed 01/06/2024 5:37 AM METAL FLOW COORDINATOR RENAL FUNCTION PANEL, S Timed 01/06/2024 5:37 AM METAL FLOW COORDINATOR ECG STAT 01/06/2024 5:32 AM METAL FLOW COORDINATOR IR CHEST TUBE PLACEMENT RAD - Routine (most inpatients and all outpatients) 01/05/2024 1:42 PM METAL FLOW COORDINATOR CYTOLOGY NON-LOOM FIXER APPRENTICE Routine 01/05/2024 12:5 0 PM METAL FLOW COORDINATOR GLUCOSE, BODY FLUID Timed 01/05/2024 1 2:50 PM METAL FLOW COORDINATOR TRIGLYCERIDES, BF Timed 01/05/2024 12: 50 PM METAL FLOW COORDINATOR PROTEIN, TOTAL, BF Timed 01/05/2024 12 :50 PM METAL FLOW COORDINATOR PH, PLEURAL FLUID Timed 01/05/2024 12: 50 PM METAL FLOW COORDINATOR LACTATE DEHYDROGENASE (LD), BF Timed 01/05/2024 12:50 PM METAL FLOW COORDINATOR CELL COUNT AND DIFFERENTIAL, BF Timed 01/05/2024 12:50 PM METAL FLOW COORDINATOR BACTERIAL CULTURE, ANAEROBIC + SUSC Timed 01/05/2024 12:50 PM METAL FLOW COORDINATOR GRAM STAIN Timed 01/05/2024 12:50 PM METAL FLOW COORDINATOR BACTERIAL CULTURE, AEROBIC + SUSC Timed 01/05/2024 12:50 PM METAL FLOW COORDINATOR MORPHOLOGY EVALUATION Routine 01/05/2024 5:52 AM METAL FLOW COORDINATOR MANUAL DIFFERENTIAL, B Routine 01/05/2024 5:52 AM METAL FLOW COORDINATOR BASIC METABOLIC PANEL, S/P Routine 01/05/2024 5:52 AM METAL FLOW COORDINATOR CBC WITH DIFFERENTIAL, B Routine 01/05/2024 5:52 AM METAL FLOW COORDINATOR PNEUMONIA PANEL, PCR Routine 01/04/2024 7:45 PM METAL FLOW COORDINATOR GRAM STAIN Routine 01/04/2024 7:45 PM METAL FLOW COORDINATOR BACTERIAL CULTURE, AEROBIC + SUSC, RESP Routine 01/04/2024 7:45 PM METAL FLOW COORDINATOR NASAL SCREEN FOR MRSA BY RAPID PCR Routine 01/04/2024 7:45 PM METAL FLOW COORDINATOR NURSING IMAGE EXAM Routine 01/04/2024 7: 40 PM METAL FLOW COORDINATOR (TTE) 2D ECHO DOPPLER COLOR AND CONTRAST Routine 01/04/2024 10:38 AM METAL FLOW COORDINATOR HC URINALYSIS AUTO WO MICRO Routine 01/04/2024 5:56 AM METAL FLOW COORDINATOR PROTEIN/CREATININE RATIO, RANDOM, URINE Routine 01/04/2024 5:56 AM METAL FLOW COORDINATOR URINALYSIS WITH MICROSCOPIC IF INDICATED, U Routine 01/04/2024 5:56 AM METAL FLOW COORDINATOR SODIUM, RANDOM, U Routine 01/04/2024 5:5 6 AM METAL FLOW COORDINATOR NT-PRO B-TYPE NATRIURETIC PEPTIDE (BNP), S Routine 01/04/2024 4:56 AM METAL FLOW COORDINATOR PARATHYROID HORMONE (PTH), S Routine 01/04/2024 4:56 AM METAL FLOW COORDINATOR IRON AND TOT IRON-BINDING CAPACITY, S/P Routine 01/04/2024 4:56 AM METAL FLOW COORDINATOR FERRITIN, S Routine 01/04/2024 4:56 AM METAL FLOW COORDINATOR BASIC METABOLIC PANEL, S/P Routine 01/04/2024 4:56 AM METAL FLOW COORDINATOR CBC WITH DIFFERENTIAL, B Routine 01/04/2024 4:56 AM METAL FLOW COORDINATOR CYTOLOGY NON-LOOM FIXER APPRENTICE Timed 01/03/2024 5:09 PM METAL FLOW COORDINATOR US THORACENTESIS RIGHT WITH IMAGING GUIDANCE RAD - Routine (most inpatients and all outpatients) 01/03/2024 5:04 PM METAL FLOW COORDINATOR BASIC METABOLIC PANEL, S/P Timed 01/03/2024 1:56 PM METAL FLOW COORDINATOR HEMODIALYSIS Routine 01/03/2024 11:28 AM METAL FLOW COORDINATOR BACTERIA / CHERI CULTURE, BLOOD Routine 01/03/2024 10:53 AM METAL FLOW COORDINATOR LACTATE FOR SEPSIS WITH REFLEX Routine 01/03/2024 10:52 AM METAL FLOW COORDINATOR BACTERIA / CHERI CULTURE, BLOOD Routine 01/03/2024 10:52 AM METAL FLOW COORDINATOR ALBUMIN, S/P Routine 01/03/2024 10:51 AM METAL FLOW COORDINATOR HEMODIALYSIS Routine 01/03/2024 8:16 AM METAL FLOW COORDINATOR VITAMIN D, IMMUNOASSAY, TOTAL, S Routine 01/03/2024 6:42 AM METAL FLOW COORDINATOR NT-PRO B-TYPE NATRIURETIC PEPTIDE (BNP), S Routine 01/03/2024 6:42 AM METAL FLOW COORDINATOR CALCIUM, IONIZED, S/B Routine 01/03/2024 6:42 AM METAL FLOW COORDINATOR PH BLOOD GAS Routine 01/03/2024 6:42 AM METAL FLOW COORDINATOR CBC WITH DIFFERENTIAL, B Routine 01/03/2024 6:42 AM METAL FLOW COORDINATOR BASIC METABOLIC PANEL, S/P Routine 01/03/2024 6:42 AM METAL FLOW COORDINATOR QUANTIFERON-TB GOLD PLUS, B Routine 01/03/2024 6:42 AM METAL FLOW COORDINATOR HBC TOTAL AB, SERUM Routine 01/03/2024 6 :42 AM METAL FLOW COORDINATOR HBS ANTIBODY, SERUM Routine 01/03/2024 6 :42 AM METAL FLOW COORDINATOR HEPATITIS B SURFACE ANTIGEN Routine 01/03/2024 6:42 AM METAL FLOW COORDINATOR LEUKEMIA/LYMPHOMA, PHENOTYPE, V Timed 01/03/2024 6:10 AM METAL FLOW COORDINATOR CHOLESTEROL, BF Timed 01/03/2024 6:10 AM METAL FLOW COORDINATOR GLUCOSE, BODY FLUID Timed 01/03/2024 6 :10 AM METAL FLOW COORDINATOR CELL COUNT AND DIFFERENTIAL, BF Timed 01/03/2024 6:10 AM METAL FLOW COORDINATOR PROTEIN, TOTAL, BF Timed 01/03/2024 6: 10 AM METAL FLOW COORDINATOR LACTATE DEHYDROGENASE (LD), BF Timed 01/03/2024 6:10 AM METAL FLOW COORDINATOR M TUBERCULOSIS COMPLEX PCR, V Timed 01/03/2024 6:10 AM METAL FLOW COORDINATOR BROAD RANGE BACTERIA PCR AND SEQUENCING Timed 01/03/2024 6:10 AM METAL FLOW COORDINATOR BACTERIAL CULTURE, ANAEROBIC + SUSC Timed 01/03/2024 6:10 AM METAL FLOW COORDINATOR BACTERIAL CULTURE, AEROBIC + SUSC Timed 01/03/2024 6:10 AM METAL FLOW COORDINATOR GRAM STAIN Timed 01/03/2024 6:10 AM METAL FLOW COORDINATOR DX CHEST PORTABLE 1 VIEW RAD - Semiurgent (Fast; most ED patients; some inpatients) 01/02/2024 3:59 PM METAL FLOW COORDINATOR MC ANE CENTRAL LINE GENERIC PERFORMABLE Routine 01/02/2024 3:47 PM METAL FLOW COORDINATOR Failure Renal Acute (Acute Kidney Injury) (HCC) LDA ANE CENTRAL LINE DOUBLE LUMEN ADULT Routine 01/02/2024 3:47 PM METAL FLOW COORDINATOR Failure Renal Acute (Acute Kidney Injury) (HCC) ND US GUIDE VASC ACCESS Routine 01/02/2024 3:47 PM METAL FLOW COORDINATOR Failure Renal Acute (Acute Kidney Injury) (HCC) ND INS NON-BLAINE CVC >5YR Routine 01/02/2024 3:47 PM METAL FLOW COORDINATOR Failure Renal Acute (Acute Kidney Injury) (HCC) GENERAL SURGERY IMAGE EXAM Routine 01/02/2024 3:30 PM METAL FLOW COORDINATOR HEMODIALYSIS Routine 01/02/2024 2:44 PM METAL FLOW COORDINATOR MAGNESIUM, S Routine 01/02/2024 11:32 AM METAL FLOW COORDINATOR BASIC METABOLIC PANEL, S/P Routine 01/02/2024 11:32 AM METAL FLOW COORDINATOR US KIDNEYS BILATERAL WITH BLADDER RAD - Routine (most inpatients and all outpatients) 01/02/2024 10:15 AM METAL FLOW COORDINATOR DX CHEST PORTABLE 1 VIEW RAD - Semiurgent (Fast; most ED patients; some inpatients) 01/02/2024 4:24 AM METAL FLOW COORDINATOR CREATINE KINASE (CK), S Routine 01/02/2024 4:10 AM METAL FLOW COORDINATOR ALBUMIN, S/P Routine 01/02/2024 4:10 AM METAL FLOW COORDINATOR CALCIUM, IONIZED, S/B Routine 01/02/2024 4:10 AM METAL FLOW COORDINATOR PH BLOOD GAS Routine 01/02/2024 4:10 AM METAL FLOW COORDINATOR PHOSPHORUS (INORGANIC), S Routine 01/02/2024 3:41 AM METAL FLOW COORDINATOR MAGNESIUM, S Routine 01/02/2024 3:41 AM METAL FLOW COORDINATOR LACTATE, B STAT 01/02/2024 3:41 AM METAL FLOW COORDINATOR NT-PRO B-TYPE NATRIURETIC PEPTIDE (BNP), S Routine 01/02/2024 3:41 AM METAL FLOW COORDINATOR VENOUS BLOOD GAS W/COOX, B Routine 01/02/2024 3:41 AM METAL FLOW COORDINATOR OSMOLALITY, S Routine 01/02/2024 3:41 AM METAL FLOW COORDINATOR CBC WITH DIFFERENTIAL, B Routine 01/02/2024 3:41 AM METAL FLOW COORDINATOR BASIC METABOLIC PANEL, S/P Routine 01/02/2024 3:41 AM METAL FLOW COORDINATOR ECG Routine 01/02/2024 12:39 AM METAL FLOW COORDINATOR OUTSIDE CT BODY Routine 01/01/2024 2:25 PM METAL FLOW COORDINATOR OUTSIDE CT NEURO Routine 01/01/2024 2:20 PM METAL FLOW COORDINATOR from Last 3 Months Allergies No known active allergies Medications ferrous sulfate 325 mg (65 mg iron) DR tablet Take 1 tablet (65 mg of iron total) by mouth daily. 90 tablet 3 01/29/20 024 Suspended Additional Information Patient taking differently: 130 mg of ironoral Daily, Reported on 01/04/2024 omeprazole (PriLOSEC) [address] capsule Take 20 mg by mouth daily as needed. 07/30/19 024 Discontinued (Therapy completed) multivitamin tablet Take [...] Med Name: Prostate Complete Zinc, Selenium, Saw [place], Lycopene, Turmeric, Resveratrol, Pomegranate Suspended Active Problems [...] on file Legal Sex Male 3:31 PM METAL FLOW COORDINATOR Gender Identity Not on file Sexual Orientation Not on file Last Filed Vital Signs Vital Sign Reading Time Taken Comments Blood Pressure 91/67 01/07/2024 10:31 PM METAL FLOW COORDINATOR Pulse 108 01/07/2024 2:28 PM METAL FLOW COORDINATOR Temperature 36.5 C (97.7 F) 01/07/2024 10:31 PM METAL FLOW COORDINATOR Respiratory Rate 28 01/07/2024 10:31 PM METAL FLOW COORDINATOR Oxygen Saturation 96% 01/07/2024 6:00 PM METAL FLOW COORDINATOR Inhaled Oxygen Concentration - - Weight 59.1 kg (130 lb 4.7 oz) 01/04/2024 5:46 P M METAL FLOW COORDINATOR Height 170.2 cm (5' 7) 01/01/2024 9:10 PM METAL FLOW COORDINATOR Body Mass Index 20.41 01/01/2024 9:10 PM METAL FLOW COORDINATOR Results * (ABNORMAL) Hemoglobin (01/07/2024 3:50 PM METAL FLOW COORDINATOR) [facility] Hemoglobin 9.1(L) 13.2 - 16.6 g/dL 01/07/2024 3:59 PM METAL FLOW COORDINATOR [facility] Blood (Blood, Venous) 01/07/2024 3:50 PM METAL FLOW COORDINATOR 01/07/2024 3:55 PM METAL FLOW COORDINATOR us Chapito Velazquez D.O. LAB BLOOD ADD-ON Final Resul t [facility] [address] [place] [address], [facility] MKTO [facility] [place] [address] * DX Chest 1 View (01/07/2024 7:14 AM METAL FLOW COORDINATOR) Only the most recent of2 resultswithin the time period is included. Anatomical Region Laterality Modality Chest, Thoracic RST LOS, Tho racic ARZ LOS, Thoracic FLA LOS N/A Digital Radiography Impressions 01/07/2024 7:42 AM METAL FLOW COORDINATOR No significant change. Narrative 01/07/2024 7:42 AM METAL FLOW COORDINATOR EXAM: DX CHEST 1 VIEW COMPARISON: Chest [...] * (ABNORMAL) Morphology Evaluation (01/07/2024 5:29 AM METAL FLOW COORDINATOR) Only the most recent of3 resultswithin the time period is included. RBC Morphology See Specific Findings 01/07/2024 6:24 AM METAL FLOW COORDINATOR MKTO PLT Morphology Normal 01/07/2024 6:24 AM METAL FLOW COORDINATOR MKTO PLT Estimate Adequate Adequate 01/07/2024 6:24 AM METAL FLOW COORDINATOR MKTO Anisocytosis Slight(A) 01/07/2024 6:24 AM METAL FLOW COORDINATOR MKTO Basophilic Stippling Slight(A) 01/07/2024 6:24 AM METAL FLOW COORDINATOR MKTO Poikilocytosis Slight(A) Not Seen 01/07/2024 6:24 AM METAL FLOW COORDINATOR MKTO Blood 01/07/2024 5:29 AM METAL FLOW COORDINATOR 01/07/2024 5:51 AM METAL FLOW COORDINATOR Jeremías Fernandez M.D. LAB BLOOD ADD-ON Final Resul t Performing Organization Address [facility] Co de Phone Number [facility] [address] [place] [address], [place] [address] * (ABNORMAL) Hepatic Function Panel (01/07/2024 5:29 AM METAL FLOW COORDINATOR) Bilirubin, Total, P <0.2 0.0 - 1.2 mg/dL 01/07/2024 6:19 AM METAL FLOW COORDINATOR MKTO Bilirubin, Direct, P 0.1 0.0 - 0.3 mg/dL 01/07/2024 6:19 AM METAL FLOW COORDINATOR MKTO Aspartate Aminotransferase (AST), P 25 8 - 48 U/L 01/07/2024 6:19 AM METAL FLOW COORDINATOR MKTO Alanine Aminotransferase (ALT), P 15 7 - 55 U/L 01/07/2024 6:19 AM METAL FLOW COORDINATOR MKTO Alkaline Phosphatase, P 110 40 - 129 U/L 01/07/2024 6:19 AM METAL FLOW COORDINATOR MKTO Albumin, P 2.5(L) 3.5 - 5.0 g/dL 01/07/2024 6:19 AM METAL FLOW COORDINATOR MKTO Protein, Total, P 5.2(L) 6.3 - 7.9 g/dL 01/07/2024 6:19 AM METAL FLOW COORDINATOR MKTO Blood (Blood, Venous) 01/07/2024 5:29 AM METAL FLOW COORDINATOR 01/07/2024 5:51 AM METAL FLOW COORDINATOR Jeremías Fernandez M.D. LAB BLOOD ADD-ON Final Resul t Performing Organization Address City/[facility]/ZIP Co de Phone Number [facility] [address] [place] [address], [place] [address] * (ABNORMAL) CBC with Differential, Blood (01/07/2024 5:29 AM METAL FLOW COORDINATOR) Only the most recent of6 resultswithin the time period is included. Hemoglobin 8.7(L) 13.2 - 16.6 g/dL 01/07/2024 6:23 AM METAL FLOW COORDINATOR MKTO Hematocrit 26.8(L) 38.3 - 48.6 % 01/07/2024 6:23 AM METAL FLOW COORDINATOR MKTO Erythrocytes 2.84(L) 4.35 - 5.65 x10(12)/L 01/07/2024 6:23 AM METAL FLOW COORDINATOR MKTO MCV 94.4 78.2 - 97.9 fL 01/07/2024 6:23 AM METAL FLOW COORDINATOR MKTO RBC Distrib Width 14.7(H) 11.8 - 14.5 % 01/07/2024 6:23 AM METAL FLOW COORDINATOR MKTO Platelet Count 263 135 - 317 x10(9)/L 01/07/2024 6:23 AM METAL FLOW COORDINATOR MKTO Leukocytes 14.9(H) 3.4 - 9.6 x10(9)/L 01/07/2024 6:23 AM METAL FLOW COORDINATOR MKTO Neutrophils 12.77(H) 1.56 - 6.45 x10(9)/L 01/07/2024 6:23 AM METAL FLOW COORDINATOR MKTO Lymphocytes 0.90(L) 0.95 - 3.07 x10(9)/L 01/07/2024 6:23 AM METAL FLOW COORDINATOR MKTO Monocytes 0.87(H) 0.26 - 0.81 x10(9)/L 01/07/2024 6:23 AM METAL FLOW COORDINATOR MKTO Eosinophils 0.23 0.03 - 0.48 x10(9)/L 01/07/2024 6:23 AM METAL FLOW COORDINATOR MKTO Basophils 0.09(H) 0.01 - 0.08 x10(9)/L 01/07/2024 6:23 AM METAL FLOW COORDINATOR MKTO Blood (Blood, Venous) 01/07/2024 5:29 AM METAL FLOW COORDINATOR 01/07/2024 5:51 AM METAL FLOW COORDINATOR us Jeremías Fernandez M.D. LAB BLOOD ADD-ON Final Resul t [facility] [address] [place] [address], [facility] MK[facility] [address] [place] [address] * Phosphorus Inorganic (01/07/2024 5:29 AM METAL FLOW COORDINATOR) Only the most recent of2 resultswithin the time period is included. Phosphorus (Inorganic), P 2.5 2.5 - 4.5 mg/dL 01/07/2024 6:19 AM METAL FLOW COORDINATOR MKTO Blood (Blood, Venous) 01/07/2024 5:29 AM METAL FLOW COORDINATOR 01/07/2024 5:51 AM METAL FLOW COORDINATOR Jeremías Fernandez M.D. LAB BLOOD ADD-ON Final Resul t Performing Organization Address [facility] Co de Phone Number [facility] [address] [place] [address], [place] [address] * Magnesium (01/07/2024 5:29 AM METAL FLOW COORDINATOR) Only the most recent of4 resultswithin the time period is included. Magnesium, P 1.7 1.7 - 2.3 mg/dL 01/07/2024 6:19 AM METAL FLOW COORDINATOR MKTO Blood (Blood, Venous) 01/07/2024 5:29 AM METAL FLOW COORDINATOR 01/07/2024 5:51 AM METAL FLOW COORDINATOR us Jeremías Fernandez M.D. LAB BLOOD ADD-ON Final Resul t Performing Organization Address City/[facility] Co de Phone Number [facility] [address] [place] [address], [place] [address] * (ABNORMAL) Basic Metabolic Panel (01/07/2024 5:29 AM METAL FLOW COORDINATOR) Only the most recent of7 resultswithin the time period is included. Potassium, P 3.3(L) 3.6 - 5.2 mmol/L 01/07/2024 6:19 AM METAL FLOW COORDINATOR MKTO Sodium, P 141 135 - 145 mmol/L 01/07/2024 6:19 AM METAL FLOW COORDINATOR MKTO Chloride, P 105 98 - 107 mmol/L 01/07/2024 6:19 AM METAL FLOW COORDINATOR MKTO Bicarbonate, P 24 22 - 29 mmol/L 01/07/2024 6:19 AM METAL FLOW COORDINATOR MKTO Anion Gap, P 12 7 - 15 01/07/2024 6:19 AM METAL FLOW COORDINATOR MKTO BUN (Blood Urea Nitrogen), P 41(H) 8 - 24 mg/dL 01/07/2024 6:19 AM METAL FLOW COORDINATOR MKTO Creatinine 2.01(H) 0.74 - 1.35 mg/dL 01/07/2024 6:19 AM METAL FLOW COORDINATOR MKTO Estimated GFR (eGFR) 32(L) >=60 mL/min/BSA 01/07/2024 6:19 AM METAL FLOW COORDINATOR MKTO Comment: Estimated GFR calculated using the 2020 CKD_EPI creatinine equation. Calcium, Total, P 8.1(L) 8.8 - 10.2 mg/dL 01/07/2024 6:19 AM METAL FLOW COORDINATOR MKTO Glucose, P 108 70 - 140 mg/dL 01/07/2024 6:19 AM METAL FLOW COORDINATOR MKTO Blood (Blood, Venous) 01/07/2024 5:29 AM METAL FLOW COORDINATOR 01/07/2024 5:51 AM METAL FLOW COORDINATOR us Jeremías Fernandez M.D. LAB BLOOD ADD-ON Final Resul t [facility] [address] [place] [address], [facility] [place] [address] * [id number] Karius Test for Pathogen Detection - Miscellaneous Test (01/06/2024 11:36 AM METAL FLOW COORDINATOR) Test Name Karius Test for Pathogen Detection 01/06/2024 11:49 AM METAL FLOW COORDINATOR MKTO Result Specimen sent out; results to follow DEFAULT 01/06/2024 11:49 AM METAL FLOW COORDINATOR MKTO Blood (Blood, Venous) 01/06/2024 11:36 AM METAL FLOW COORDINATOR 01/06/2024 11:49 AM METAL FLOW COORDINATOR us Sarah Rose M.D. LAB MISC ORDERA BLES Final Result [facility] [address] [place] [address], [place] [address] * (ABNORMAL) Manual Differential, Blood (01/06/2024 5:37 AM METAL FLOW COORDINATOR) Only the most recent of2 resultswithin the time period is included. Segmented Neutrophils 87(H) 50 - 75 % 01/06/2024 6:34 AM METAL FLOW COORDINATOR MKTO Lymphocytes % 1(L) 18 - 42 % 01/06/2024 6:34 AM METAL FLOW COORDINATOR MKTO Monocytes 5 2 - 11 % 01/06/2024 6:34 AM METAL FLOW COORDINATOR MKTO Eosinophils 3 1 - 3 % 01/06/2024 6:34 AM METAL FLOW COORDINATOR MKTO Basophils 1 0 - 2 % 01/06/2024 6:34 AM METAL FLOW COORDINATOR MKTO Metamyelocytes 1(H) <1 % 01/06/2024 6:34 AM METAL FLOW COORDINATOR MKTO Myelocytes 2(H) <0.5 % 01/06/2024 6:34 AM METAL FLOW COORDINATOR MKTO Manual Absolute Neutrophil Count 12.44(H) 1.56 - 6.45 x10(9)/L 01/06/2024 6:34 AM METAL FLOW COORDINATOR MKTO Comment: ----ADDITIONAL INFORMATION---- The manual absolute neutrophil count is derived from a manual differential count and therefore is not exactly comparable to the automated absolute neutrophil count. Blood 01/06/2024 5:37 AM METAL FLOW COORDINATOR 01/06/2024 5:47 AM METAL FLOW COORDINATOR us Vidhya Tovar P.A.-C. LAB BLOOD ADD-ON Final Resu lt [facility] [address] [place] [id number], [place] [address] * (ABNORMAL) Renal Function Panel (01/06/2024 5:37 AM METAL FLOW COORDINATOR) Potassium, P 3.3(L) 3.6 - 5.2 mmol/L 01/06/2024 6:11 AM METAL FLOW COORDINATOR MKTO Sodium, P 142 135 - 145 mmol/L 01/06/2024 6:11 AM METAL FLOW COORDINATOR MKTO Chloride, P 104 98 - 107 mmol/L 01/06/2024 6:11 AM METAL FLOW COORDINATOR MKTO Bicarbonate, P 25 22 - 29 mmol/L 01/06/2024 6:11 AM METAL FLOW COORDINATOR MKTO Anion Gap, P 13 7 - 15 01/06/2024 6:11 AM METAL FLOW COORDINATOR MKTO BUN (Blood Urea Nitrogen), P 37(H) 8 - 24 mg/dL 01/06/2024 6:11 AM METAL FLOW COORDINATOR MKTO Creatinine 1.91(H) 0.74 - 1.35 mg/dL 01/06/2024 6:11 AM METAL FLOW COORDINATOR MKTO Estimated GFR (eGFR) 34(L) >=60 mL/min/BSA 01/06/2024 6:11 AM METAL FLOW COORDINATOR MKTO Comment: Estimated GFR calculated using the 2020 CKD_EPI creatinine equation. Calcium, Total, P 8.4(L) 8.8 - 10.2 mg/dL 01/06/2024 6:11 AM METAL FLOW COORDINATOR MKTO Glucose, P 92 70 - 140 mg/dL 01/06/2024 6:11 AM METAL FLOW COORDINATOR MKTO Albumin, P 2.7(L) 3.5 - 5.0 g/dL 01/06/2024 6:11 AM METAL FLOW COORDINATOR MKTO Phosphorus (Inorganic), P 2.7 2.5 - 4.5 mg/dL 01/06/2024 6:11 AM METAL FLOW COORDINATOR MKTO Blood (Blood, Venous) 01/06/2024 5:37 AM METAL FLOW COORDINATOR 01/06/2024 5:47 AM METAL FLOW COORDINATOR us Vidhya Tovar P.A.-C. LAB BLOOD ADD-ON Final Resu lt [facility] [address] [place] [address], [facility] [address] [place] [address] * ECG 12 Lead (01/06/2024 5:32 AM METAL FLOW COORDINATOR) Only the most recent of2 resultswithin the time period is included. Ventricular Rate ECG/Min 98 BPM MUSE ND Interval 164 ms MUSE QRSD Interval 128 ms MUSE QT Interval 398 ms MUSE QTC Interval 508 ms MUSE P [place] 52 degrees MUSE R [place] -72 degrees MUSE T Wave [place] 53 degrees MUSE 01/06/2024 5:32 AM METAL FLOW COORDINATOR 01/06/2024 5:40 AM METAL FLOW COORDINATOR Impressions MUSE - 01/06/2024 5:40 AM METAL FLOW COORDINATOR Normal sinus rhythm Right bundle branch block [...] IR Chest Tube Placement (01/05/2024 1:42 PM METAL FLOW COORDINATOR) Anatomical Region Laterality Modality Chest, Vascular Intervention al RST LOS, Vascular Interventional ARZ LOS, Vascular Interventional FLA LOS N/A X-Ray Angiography Impressions 01/05/2024 2:17 PM METAL FLOW COORDINATOR 1. Right chest tube placement. Narrative 01/05/2024 2:17 PM METAL FLOW COORDINATOR EXAM: IR CHEST TUBE PLACEMENT HISTORY: R [...] medications. Patient education provided by a care long line teamster. Patient was ready to learn with no apparent learning barriers were identified. Post-procedure care explained; patient expressed understanding of the content. PROCEDURE DETAILS: Sedation: None. Local anesthesia was achieved with lidocaine. Sedation time: None Estimated Blood Loss: Less than 10 mL. TECHNIQUE: Imaging guidance for drain insertion: Ultrasound and fluoroscopy with permanent image storage Access side: Right Catheter: 12 Australian multipurpose pigtail drain Technique: Image guidance was used to localize the collection. A 5 [place] Yueh needle catheter was used to access the collection under real time image guidance, and images were saved to PACS. Aspiration yielded purulent fluid. A guidewire was inserted, and the tract was dilated to accommodate a 12 [place] pigtail drain. The catheter was secured with [...] medications. Patient education provided by a care long line teamster. Patient was ready to learn withno apparent learning barriers were identified. Post-procedure careexplained; patient expressed understanding of the content. PROCEDURE DETAILS: Sedation: None. Local anesthesia was achieved with lidocaine. Sedation time: None Estimated Blood Loss: Less than 10 mL. TECHNIQUE: Imaging guidance for drain insertion: Ultrasound and fluoroscopy withpermanent image storage Access side: Right Catheter: 12 [place] multipurpose pigtail drain Technique: Image guidance was used to localize the collection. A 5 FrenchYueh needle catheter was used to access the collection under real timeimage guidance, and images were saved to PACS. Aspiration yielded purulentfluid. A guidewire was inserted, and the tract was dilated to accommodate a 12 [place] pigtail drain. Thecatheter was secured with 2-0 Ethilon suture. The catheter was connectedto Pleur-evac Intraprocedural or immediate post-procedural complications: None FINDINGS: Catheter tip location: Final image was demonstrates the catheter tip to belocated in the right pleural space Additional observations: N/A PLAN: Follow-up with pulmonology. IMPRESSION: 1. Right chest tube placement. Fidencio TORRES IR PROCEDURES Final Resul t * Cytology Non-LOOM FIXER APPRENTICE (01/05/2024 12:50 PM METAL FLOW COORDINATOR) Only the most recent of2 resultswithin the time period is included. 01/07/2024 3:19 PM METAL FLOW COORDINATOR HKCY Disclaimer This test has been modified from the aquatics assistant department head's instructions. Its performance characteristics were determined by [facility] in a manner consistent with CLIA requirements. This test has not been cleared or approved by the U.S. Food and Drug Administration. 01/07/2024 3:19 PM METAL FLOW COORDINATOR HKCY Report electronically signed by LOLY Schwartz. Ch.B. I verify that I have examined all relevant slides/materials for the specimen(s) and rendered or confirmed the diagnosis. 01/07/2024 3:19 PM METAL FLOW COORDINATOR HKCY Gross Description 50 ml of cloudy hubbard fluid received. Specimen fixed at 2:20 pm on 01-05-2024. 2 slides and cell block prepared. 01/07/2024 3:19 PM METAL FLOW COORDINATOR HKCY Source A. Pleural, fluid 024 3:19 PM METAL FLOW COORDINATOR HKCY Interpretation A. Pleural, fluid (smears/cell block): Negative for malignancy. Acute inflammation. COMMENT Immunohistochemica l stains with appropriate reactive controls was performed on separate slides on cell block. CK7, WT1, calretinin, TTF1, Napsin A, p40, CK20, NKX3.1 and CDX2: Negative Controls reviewed, results acceptable. 01/07/2024 3:19 PM METAL FLOW COORDINATOR HKCY Fluid 01/05/2024 12:5 0 PM METAL FLOW COORDINATOR 01/06/2024 7:16 AM METAL FLOW COORDINATOR us Fidencio Oliva M.D. LAB SURG PATH ORDERABLES Sury l Result Performing Organization Address City/State/[facility] Co de Phone Number [facility] [address] [place] [address], [facility] HKCY [facility] [place] [address] * Protein, Total, Body Fluid (01/05/2024 12:50 PM METAL FLOW COORDINATOR) Only the most recent of2 resultswithin the time period is included. Protein, Total, BF 2.6 See Comment g/dL 01/06/2024 11:13 AM METAL FLOW COORDINATOR DTL Comment: ----ADDITIONAL INFORMATION---- A pleural fluid [...] clinical findings. All other fluids refer to www.[email or web address].com for further interpretive information. This test has been modified from the aquatics assistant department head's instructions. Its performance characteristics were determined by [facility] in a manner consistent with CLIA requirements. This test has not been cleared or approved by the U.S. Food and Drug Administration. Fluid Type, Protein, Total PLEURAL 01/06/2024 10:14 AM METAL FLOW COORDINATOR DTL Fluid (Pleural Fluid) 01/05/2024 12:50 PM METAL FLOW COORDINATOR 01/06/2024 10:01 AM METAL FLOW COORDINATOR Fidencio Oliva M.D. LAB BODY FLUIDS AND STOOLS OR DERABLES Final Result Performing Organization Address [facility] Co de Phone Number [facility] [address] [place] [address], [facility] DTL [facility] [address] [place] [address] * Cell Count and Differential, Body Fluid (01/05/2024 12:50 PM METAL FLOW COORDINATOR) Only the most recent of2 resultswithin the time period is included. Fluid Type Pleural/Thor acentesis 01/05/2024 2:19 PM METAL FLOW COORDINATOR MKTO Gross Appearance Purulent 01/05/20 24 2:40 PM METAL FLOW COORDINATOR MKTO Total Nucleated Cells [id number] /mcL 01/05/2024 2:40 PM METAL FLOW COORDINATOR MKTO Comment: ----REFERENCE VALUE---- Synovial: <150 Peritoneal: <500 Pleural: <500 Pericardial: <500 ----ADDITIONAL INFORMATION---- This test has been modified from the aquatics assistant department head's instructions. Its performance characteristics were determined by [facility] in a manner consistent with CLIA requirements. This test has not been cleared or approved by the U.S. Food and Drug Administration. Neutrophils 100 % 01/05/2024 3:04 PM METAL FLOW COORDINATOR MKTO Comment: ----REFERENCE VALUE---- Synovial: <25% Peritoneal: <25% Pleural: <25% Pericardial: <25% Reviewed by: Dr. Morton 01/05/2024 3:05 PM METAL FLOW COORDINATOR MKTO Fluid (Pleural Fluid) 01/05/2024 12:50 PM METAL FLOW COORDINATOR 01/05/2024 1:47 PM METAL FLOW COORDINATOR us Fidencio Oliva M.D. LAB BODY FLUIDS AND STOOLS OR DERABLES Final Result Performing Organization Address [facility] Co de Phone Number [facility] [address] [place] [address], [facility] MKTO [facility] [address] [place] [address] * Triglycerides, Body Fluid (01/05/2024 12:50 PM METAL FLOW COORDINATOR) Triglycerides, BF 31 See Comment mg/dL 01/06/2024 11:13 AM METAL FLOW COORDINATOR DTL Comment: ----ADDITIONAL INFORMATION---- Pleural fluid triglyceride concentrations > 110 mg/dL are consistent with chylous effusions. Triglyceride concentrations <50 mg/dL are usually not due to chylous effusions. Peritoneal fluid triglyceride concentrations > 187 mg/dL are most consistent with chylous effusion. All other fluids refer to http://www.[email or web address] for further interpretive information. This test has been modified from the aquatics assistant department head's instructions. Its performance characteristics were determined by [facility] in a manner consistent with CLIA requirements. This test has not been cleared or approved by the U.S. Food and Drug Administration. Fluid Type Pleural 01/06/2024 10:14 AM METAL FLOW COORDINATOR DT Fluid (Pleural Fluid) 01/05/2024 12:50 PM METAL FLOW COORDINATOR 01/06/2024 10:01 AM METAL FLOW COORDINATOR us Fidencio Oliva M.D. LAB BODY FLUIDS AND STOOLS OR DERABLES Final Result Performing Organization Address City/State/[facility] Phone Number [facility] [address] [place] [address], [place] [facility] [address] [place] [address] * pH, Pleural Fluid (01/05/2024 12:50 PM METAL FLOW COORDINATOR) pH, Pleural Fluid <6.80 Not Applicable pH 01/05/2024 1:59 PM METAL FLOW COORDINATOR MKTO Comment: Clinical guidelines suggest that in parapneumonic pleural effusions, a pH <7.2 indicate the need for tube drainage. Fluid (Pleural Fluid) 01/05/2024 12:50 PM METAL FLOW COORDINATOR 01/05/2024 1:47 PM METAL FLOW COORDINATOR us Fidencio Oliva M.D. LAB BODY FLUIDS AND STOOLS OR DERABLES Final Result [facility] [address] [place] [address], [facility] in [address] [address] * (ABNORMAL) Gram Stain (01/05/2024 12:50 PM METAL FLOW COORDINATOR) Only the most recent of3 resultswithin the time period is included. Gram Stain White blood cells, Many.(A) 01/05/2024 2:46 PM METAL FLOW COORDINATOR MKTO Gram Stain GRAM POSITIVE COCCI Many. (A) 01/05/2024 2:46 PM METAL FLOW COORDINATOR MKTO Fluid (Pleural Fluid) 01/05/2024 12:50 PM METAL FLOW COORDINATOR 01/05/2024 1:47 PM METAL FLOW COORDINATOR Comment:Specimen Source Site : Fluid Fidencio Oliva M.D. LAB MICROBIOLOGY - GENERAL OR DERABLES Final Result Performing Organization Address City/[facility] Co de Phone Number [facility] [address] [place] [address], [facility] in [address] [address] * Lactate Dehydrogenase (LD), Body Fluid (01/05/2024 12:50 PM METAL FLOW COORDINATOR) Only the most recent of2 resultswithin the time period is included. Lactate Dehydrogenase (LD), BF >9000 See Comment U/L 01/06/2024 12:17 PM METAL FLOW COORDINATOR DTL Comment: ----ADDITIONAL INFORMATION---- Pleural fluid lactate [...] clinical findings. All other fluids refer to www.[employer].com for further interpretive information. This test has been modified from the aquatics assistant department head's instructions. Its performance characteristics were determined by [facility] in a manner consistent with CLIA requirements. This test has not been cleared or approved by the U.S. Food and Drug Administration. Fluid Type, Lactate Dehydrogenase PLEURAL 01/06/2024 10:14 AM METAL FLOW COORDINATOR DTL Fluid (Pleural Fluid) 01/05/2024 12:50 PM METAL FLOW COORDINATOR 01/06/2024 8:29 AM METAL FLOW COORDINATOR Fidencio Oliva M.D. LAB BODY FLUIDS AND STOOLS OR DERABLES Final Result [facility] [address] [place] [address], [place] [facility] [address] [place] [address] * Glucose, Body Fluid (01/05/2024 12:50 PM METAL FLOW COORDINATOR) Only the most recent of2 resultswithin the time period is included. Glucose, BF 49 See Comment mg/dL 01/06/2024 11:13 AM METAL FLOW COORDINATOR DTL Comment: ----ADDITIONAL INFORMATION---- Body fluid glucose [...] cystic lesions. All other fluids refer to www.[employer].com for further interpretive information. This test has been modified from the aquatics assistant department head's instructions. Its performance characteristics were determined by [facility] in a manner consistent with CLIA requirements. This test has not been cleared or approved by the U.S. Food and Drug Administration. Fluid Type, Glucose PLEURAL 01/05 10:14 AM METAL FLOW COORDINATOR DTL Fluid (Pleural Fluid) 01/05/2024 12:50 PM METAL FLOW COORDINATOR 01/06/2024 10:01 AM METAL FLOW COORDINATOR Fidencio Oliva M.D. LAB BODY FLUIDS AND STOOLS OR DERABLES Final Result [facility] [address] [place] [address], [facility] [address] [place] [address] * Pneumonia Panel, PCR (01/04/2024 7:45 PM METAL FLOW COORDINATOR) Specimen Source SPUTUM 10:43 PM METAL FLOW COORDINATOR MKTO Acinetobacter calcoaceticus-balbir annii complex Undetected Undetected copies/mL 01/04/2024 10:43 PM METAL FLOW COORDINATOR MKTO Enterobacter cloacae complex Undetected Undetected copies/mL 01/04/2024 10:43 PM METAL FLOW COORDINATOR MKTO Escherichia coli Undetected Undetected copies/mL 01/04/2024 10:43 PM METAL FLOW COORDINATOR MKTO Haemophilus influenzae Undetected Undetected copies/mL 01/04/2024 10:43 PM METAL FLOW COORDINATOR MKTO Klebsiella aerogenes Undetected Undetected copies/mL 01/04/2024 10:43 PM METAL FLOW COORDINATOR MKTO Klebsiella oxytoca Undetected Undetected copies/mL 01/04/2024 10:43 PM METAL FLOW COORDINATOR MKTO Klebsiella pneumoniae complex Undetected Undetected copies/mL 01/04/2024 10:43 PM METAL FLOW COORDINATOR MKTO Moraxella catarrhalis Undetected Undetected copies/mL 01/04/2024 10:43 PM METAL FLOW COORDINATOR MKTO Proteus species Undetected Undetected copies/mL 01/04/2024 10:43 PM METAL FLOW COORDINATOR MKTO Pseudomonas aeruginosa Undetected Undetected copies/mL 01/04/2024 10:43 PM METAL FLOW COORDINATOR MKTO Serratia marcescens Undetected Undetected copies/mL 01/04/2024 10:43 PM METAL FLOW COORDINATOR MKTO Staphylococcus aureus complex Undetected Undetected copies/mL 01/04/2024 10:43 PM METAL FLOW COORDINATOR MKTO Streptococcus agalactiae Undetected Undetected copies/mL 01/04/2024 10:43 PM METAL FLOW COORDINATOR MKTO Streptococcus pneumoniae Undetected Undetected copies/mL 01/04/2024 10:43 PM METAL FLOW COORDINATOR MKTO Streptococcus pyogenes Undetected Undetected copies/mL 01/04/2024 10:43 PM METAL FLOW COORDINATOR MKTO Chlamydia pneumoniae Undetected Undetected 01/04/2024 10:43 PM METAL FLOW COORDINATOR MKTO Legionella pneumophila Undetected Undetected 01/04/2024 10:43 PM METAL FLOW COORDINATOR MKTO Mycoplasma pneumoniae Undetected Undetected 01/04/2024 10:43 PM METAL FLOW COORDINATOR MKTO Adenovirus Undetected Undetected 01/04/2024 10:43 PM METAL FLOW COORDINATOR MKTO Coronavirus Undetected Undetected 01/04/2024 10:43 PM METAL FLOW COORDINATOR MKTO Human Metapneumovirus Undetected Undetected 01/04/2024 10:43 PM METAL FLOW COORDINATOR MKTO Human Rhinovirus/Enterov irus Undetected Undetected 01/04/2024 10:43 PM METAL FLOW COORDINATOR MKTO Influenza A Undetected Undetected 01/04/2024 10:43 PM METAL FLOW COORDINATOR MKTO Influenza B Undetected Undetected 01/04/2024 10:43 PM METAL FLOW COORDINATOR MKTO Parainfluenza Undetected Undetected 01/04/2024 10:43 PM METAL FLOW COORDINATOR MKTO Respiratory Syncytial Virus Undetected Undetected 01/04/2024 10:43 PM METAL FLOW COORDINATOR MKTO Comment: ----ADDITIONAL INFORMATION---- This assay is performed using the FDA-cleared FilmArray Pneumonia Panel (PN) (Fora.). Any initial empiric treatment guidance provided in [...] SARS-CoV-2. Sputum (Sputum) 01/04/2024 7 :45 PM METAL FLOW COORDINATOR 01/04/2024 7:55 PM METAL FLOW COORDINATOR us Octavio Cavazos, Ch.B. LAB MICROBIOLOGY - GENERAL ORDERABLES Final Result [facility] [place] [address], [facility] MKTO [facility] [address] * Bacterial Culture, Aerobic + Susceptibility, Respiratory (01/04/2024 7:45 PM METAL FLOW COORDINATOR) Bacterial Culture, Aerobic, Resp No growth after 2 days of incubation. 01/06/2024 8:19 AM METAL FLOW COORDINATOR MKTO Sputum (Sputum) 01/04/2024 7 :45 PM METAL FLOW COORDINATOR 01/04/2024 7:55 PM METAL FLOW COORDINATOR Comment:Specimen Source Site : Sputum us Octavio Cavazos, B. LAB MICROBIOLOGY - GENERAL ORDERABLES Final Result Performing Organization Address [facility]/ZIP Co de Phone Number [facility] [address] [place] [address], [facility] in [address] [address] * MRSA PCR, Nasal (01/04/2024 7:45 PM METAL FLOW COORDINATOR) Pathologist [facility] MRSA Screen, Nasal by PCR Negative Negative 01/04/2024 9:24 PM METAL FLOW COORDINATOR [facility] Swab (Nares) 01/04/2024 7:45 PM METAL FLOW COORDINATOR 01/04/2024 7:53 PM METAL FLOW COORDINATOR us Frank Mccall M.D. LAB MICROBIOLOGY - GENERAL ORDERABLES Final Result Performing Organization Address [facility] Co de Phone Number [facility] [address] [place] [address], [facility] [address] [place] [address] * Ankle, Right-Nursing Image Exam (01/04/2024 7:40 PM METAL FLOW COORDINATOR) 01/04/2024 7:39 PM METAL FLOW COORDINATOR Narrative IIMS - 01/04/2024 7:42 PM METAL FLOW COORDINATOR This order has been created and auto-finalized to support the import of images acquired without order. The clinical documentation to support these images can be found on the encounter that produced images. us Provider Not In System IMG NON RAD IMAGING PROCE DURES Final Result Performing Organization Address [facility] Co de Phone Number IIMS NA * (TTE) 2D ECHO DOPPLER COLOR AND CONTRAST (01/04/2024 10:38 AM METAL FLOW COORDINATOR) Pathologist [facility] Ejection Fraction 59 MC CV EIMS Sinus [...] Region Laterality Modality Echocardiography 01/04/2024 9:49 AM METAL FLOW COORDINATOR Impressions 01/04/2024 11:49 AM METAL FLOW COORDINATOR Echo performed at the patient's bedside. LEFT [...] per Echocardiography Contrast Administration Protocol Reference Document [id number] Rev 05/30/2021. Patient met an inclusion criterion and did not have contraindications in screening sections. For the complete report, see the Order-Level Documents. Narrative 01/04/2024 11:49 AM METAL FLOW COORDINATOR For the complete report, see the Order-Level [...] administered per EchocardiographyContrast Administration Protocol Reference Document [id number] Rev05/30/2021. Patient met an inclusion criterion and did not havecontraindications in screening sections. For the complete report, see the Order-Level Documents. Jet Palomares M.D. CV ECHO PROCEDURES Sury l Result * (ABNORMAL) Urinalysis with Microscopic if Indicated (01/04/2024 5:56 AM METAL FLOW COORDINATOR) Source Urine, Urine, Midstream 01/04/2024 6:03 AM METAL FLOW COORDINATOR MKTO Clarity Cloudy(A) Clear 01/04/2024 6:37 AM METAL FLOW COORDINATOR MKTO Color Yellow 01/04/2024 6:37 AM METAL FLOW COORDINATOR MKTO Comment: ----REFERENCE VALUE---- Colorless Yellow Veronica Blood Negative Negative 01/04/2024 6:37 AM METAL FLOW COORDINATOR MKTO Nitrite Negative Negative 01/04/2024 6:37 AM METAL FLOW COORDINATOR MKTO Leukocyte Esterase Negative Negative 01/04/2024 6:37 AM METAL FLOW COORDINATOR MKTO Protein 30(A) mg/dL 01/04/2024 6:37 AM METAL FLOW COORDINATOR MKTO Comment: ----REFERENCE VALUE---- Negative Trace Glucose Negative Negative mg/dL 01/04/2024 6:37 AM METAL FLOW COORDINATOR MKTO Ketone Trace(A) Negative mg/dL 01/04/2024 6:37 AM METAL FLOW COORDINATOR MKTO Bilirubin Negative Negative 01/04/2024 6:37 AM METAL FLOW COORDINATOR MKTO pH 5.0 5.0 - 8.0 01/04/2024 6:37 AM METAL FLOW COORDINATOR MKTO Specific [place] 1.014 1.001 - 1.035 01/04/2024 6:37 AM METAL FLOW COORDINATOR MKTO Urobilinogen 0.2 0.2 - 1.0 mg/dL 01/04/2024 6:37 AM METAL FLOW COORDINATOR MKTO Urine (Urine, Midstream) 01/04/2024 5:56 AM METAL FLOW COORDINATOR 01/04/2024 6:02 AM METAL FLOW COORDINATOR Jet Palomares M.D. LAB URINE ORDERABLES Fi nal Result Performing Organization Address [facility] Co de Phone Number [facility] [address] [place] [address] * Sodium, Random, Urine (01/04/2024 5:56 AM METAL FLOW COORDINATOR) Sodium, Random, U 28 mmol/L 01/04/2024 6:54 AM METAL FLOW COORDINATOR MKTO Comment: ----REFERENCE VALUE---- Random urine sodium may be interpreted in conjunction with serum sodium, using both values to calculate fractional excretion of sodium. Urine (Urine, Midstream) 01/04/2024 5:56 AM METAL FLOW COORDINATOR 01/04/2024 6:01 AM METAL FLOW COORDINATOR Fausto Bey M.D. LAB URINE ORDERABLES Final Resu lt Performing Organization Address [facility] Co de Phone Number [facility] [address] [place] [address], [place] [address] * (ABNORMAL) Microscopic Automated (01/04/2024 5:56 AM METAL FLOW COORDINATOR) White Blood Cells 4-10(A) /hpf 01/04/2024 6:58 AM METAL FLOW COORDINATOR MKTO Comment: ----REFERENCE VALUE---- Males: 0-3 Females: 0-10 Unknown: 0-10 Red Blood Cells None Seen 0 - 2 /hpf 01/04/2024 6:58 AM METAL FLOW COORDINATOR MKTO Hyaline Casts 4-10 /lpf 01/04/2024 6:58 AM METAL FLOW COORDINATOR MKTO Squamous Cells Occ-3 /hpf 01/04/2024 6:58 AM METAL FLOW COORDINATOR MKTO Urine 01/04/2024 5:56 AM METAL FLOW COORDINATOR 01/04/2024 6:02 AM METAL FLOW COORDINATOR Jet Palomares M.D. LAB URINE ORDERABLES Fi nal Result Performing Organization Address [facility] Co de Phone Number [facility] [address] [place] [address], [address] [address] * (ABNORMAL) Protein/Creatinine Ratio, Random, Urine (01/04/2024 5:56 AM METAL FLOW COORDINATOR) Protein, Total, Random, U 33 mg/dL 01/04/2024 6:54 AM METAL FLOW COORDINATOR MKTO Creatinine, Random, U 94 16 - 326 mg/dL 01/04/2024 6:54 AM METAL FLOW COORDINATOR MKTO Protein/Creati nine Ratio 0.35(H) <0.18 mg/mg 01/04/2024 6:54 AM METAL FLOW COORDINATOR MKTO Urine (Urine, Midstream) 01/04/2024 5:56 AM METAL FLOW COORDINATOR 01/04/2024 6:02 AM METAL FLOW COORDINATOR us Jet Palomares M.D. LAB URINE ORDERABLES Fi nal Result Performing Organization Address City/[facility] Co de Phone Number [facility] [address] [place] [address], [place] [address] * (ABNORMAL) NT-Pro B-Type Natriuretic Peptide (BNP) (01/04/2024 4:56 AM METAL FLOW COORDINATOR) Only the most recent of3 resultswithin the time period is included. NT-Pro BNP 5163(H) <=540 pg/mL 01/04/2024 8:20 AM METAL FLOW COORDINATOR MKTO Comment: NT-proBNP values less than 300 [...] failure. Blood (Blood, Venous) 01/04/2024 4:56 AM METAL FLOW COORDINATOR 01/04/2024 8:01 AM METAL FLOW COORDINATOR us Portia Ramos M.D., Ph.D. LAB BLOOD ADD-ON Final Res ult [facility] [address] [place] [address], [facility] [place] [address] * (ABNORMAL) Iron and Total Iron-Binding Capacity (01/04/2024 4:56 AM METAL FLOW COORDINATOR) Iron 38(L) 50 - 150 mcg/dL 01/04/2024 8:32 AM METAL FLOW COORDINATOR [facility] Total Iron Binding Capacity 79(L) 250 - 400 mcg/dL 01/04/2024 8:32 AM METAL FLOW COORDINATOR TO Percent Saturation 48 14 - 50 % 01/04/2024 8:32 AM METAL FLOW COORDINATOR TO Blood (Blood, Venous) 01/04/2024 4:56 AM METAL FLOW COORDINATOR 01/04/2024 8:02 AM METAL FLOW COORDINATOR us Portia Ramos M.D., Ph.D. LAB BLOOD ADD-ON Final Res ult [facility] [address] [place] [address], [place] [address] * Parathyroid Hormone (PTH) (01/04/2024 4:56 AM METAL FLOW COORDINATOR) Parathyroid Hormone (PTH), S 43 15 - 65 pg/mL 01/04/2024 8:32 AM METAL FLOW COORDINATOR TO Comment: Biotin has been identified by the aquatics assistant department head as a potential interfering substance. Higher concentrations of biotin may be found in multivitamins, hair/nail supplements, and workout supplements. If the result does not match clinical observations, repeat testing after patient refrains from the use of supplements for at least 12 hours. Blood (Blood, Venous) 01/04/2024 4:56 AM METAL FLOW COORDINATOR 01/04/2024 8:02 AM METAL FLOW COORDINATOR us Portia Ramos M.D., Ph.D. LAB BLOOD ADD-ON Final Res ult Performing Organization Address [facility] Co de Phone Number [facility] [address] [place] [address], [place] [address] * (ABNORMAL) Ferritin (01/04/2024 4:56 AM METAL FLOW COORDINATOR) Ferritin, S 1703(H) 31 - 409 mcg/L 01/04/2024 8:32 AM METAL FLOW COORDINATOR TO Comment: Biotin has been identified by the aquatics assistant department head as a potential interfering substance. Higher concentrations of biotin may be found in multivitamins, hair/nail supplements, and workout supplements. If the result does not match clinical observations, repeat testing after patient refrains from the use of supplements for at least 12 hours. Blood (Blood, Venous) 01/04/2024 4:56 AM METAL FLOW COORDINATOR 01/04/2024 8:02 AM METAL FLOW COORDINATOR us Portia Ramos M.D., Ph.D. LAB BLOOD ADD-ON Final Res ult Performing Organization Address [facility] Co de Phone Number [facility] [address] [place] [address], [place] MKTO [facility] [address] [place] [address] * US Thoracentesis Right with Imaging Guidance (01/03/2024 5:04 PM METAL FLOW COORDINATOR) Anatomical Region Laterality Modality Chest, Ultrasound RST LOS, U ltrasound ARZ LOS, Procedure FLA LOS, Abdominal FLA LOS, Procedural, Procedural NWWI LOS Right Ultrasound Impressions 01/04/2024 8:03 AM METAL FLOW COORDINATOR Successful ultrasound guided diagnostic and therapeutic right thoracentesis. Narrative 01/04/2024 8:03 AM METAL FLOW COORDINATOR EXAM: US THORACENTESIS RIGHT WITH IMAGING GUIDANCE [...] medications. Patient education provided by the care long line teamster. Ready to learn, no apparent learning barriers [...] medications. Patient education provided by the care long line teamster. Ready to learn, no apparent learningbarriers were identified. Post-procedure care explained; patient expressedunderstanding of the content. IMPRESSION: Successful ultrasound guided diagnostic and therapeutic rightthoracentesis. us Octavio Cavazos, Ch.B. IMG US PROCEDURES Final Result * Lactate for Sepsis with Reflex (01/03/2024 10:52 AM METAL FLOW COORDINATOR) Lactate, B 1.1 0.5 - 2.2 mmol/L 01/03/2024 11:01 AM METAL FLOW COORDINATOR [facility] Blood (Blood, Venous) 01/03/2024 10:52 AM METAL FLOW COORDINATOR 01/03/2024 10:58 AM METAL FLOW COORDINATOR Octavio Cavazos, Ch.B. LAB BLOOD NON ADD- ON Final Result [facility] [address] [place] [address], [facility] [place] [address] * (ABNORMAL) Albumin (01/03/2024 10:51 AM METAL FLOW COORDINATOR) Only the most recent of2 resultswithin the time period is included. Albumin, P 3.0(L) 3.5 - 5.0 g/dL 01/03/2024 1:15 PM METAL FLOW COORDINATOR MK Blood (Blood, Venous) 01/03/2024 10:51 AM METAL FLOW COORDINATOR 01/03/2024 1:02 PM METAL FLOW COORDINATOR us Jet Palomares M.D. LAB BLOOD ADD-ON Final Result Performing Organization Address City/[facility]/ZIP Co de Phone Number [facility] [address] [place] [address], [place] [address] * pH (01/03/2024 6:42 AM METAL FLOW COORDINATOR) Only the most recent of2 resultswithin the time period is included. [facility] pH 7.43 7.35 - 7.45 pH 01/03/2024 7:00 AM METAL FLOW COORDINATOR [facility] Blood 01/03/2024 6:42 AM METAL FLOW COORDINATOR 01/03/2024 6:55 AM METAL FLOW COORDINATOR us Deanna Lewis APRN, C.N.P., D.N.P., M.S.N. LAB H ISTORICAL ORDERS Final Result Performing Organization Address [facility]/ZIP Co de Phone Number [facility] [address] [place] [address], [place] [address] * (ABNORMAL) QuantiFERON-Tb Gold Plus, Blood (01/03/2024 6:42 AM METAL FLOW COORDINATOR) [facility] QuantiFERON-TB Gold Plus Result Indetermi parviz(A) Negative 01/07/2024 2:48 PM METAL FLOW COORDINATOR [facility] Comment: Indeterminate due to a low interferon-gamma level in the mitogen (positive control) tube. This may occur due to a low lymphocyte count, reduced lymphocyte activity or inability of the patient's lymphocytes to generate interferon-gamma. The reference range for the 'Mitogen minus Nil Result' is >=0.5 IU/mL. TB1 Ag minus Nil Result 0.00 IU/mL 01/07/2024 2:48 PM METAL FLOW COORDINATOR [facility] TB2 Ag minus Nil Result 0.00 IU/mL 01/07/2024 2:48 PM METAL FLOW COORDINATOR [facility] Mitogen minus Nil Result 0.01 IU/mL 01/07/2024 2:48 PM METAL FLOW COORDINATOR [facility] Nil Result 0.04 IU/mL 01/07/2024 2:48 PM METAL FLOW COORDINATOR [facility] Blood (Blood, Venous) 01/03/2024 6:42 AM METAL FLOW COORDINATOR 01/04/2024 10:57 AM METAL FLOW COORDINATOR Narrative [facility] - 01/07/2024 2:48 PM METAL FLOW COORDINATOR Specimen Information: Specimen ID: [id number] Specimen Type: Blood Specimen Collection Start Date: 01/03/2024 6:42 AM Specimen Received Date: 01/04/2024 10:57 AM Specimen ID: [id number] Specimen Type: Blood Specimen Collection Start Date: 01/03/2024 6:42 AM Specimen Received Date: 01/04/2024 10:57 AM Specimen ID: [id number] Specimen Type: Blood Specimen Collection Start Date: 01/03/2024 6:42 AM Specimen Received Date: 01/04/2024 10:57 AM Specimen ID: [id number] Specimen Type: Blood Specimen Collection Start Date: 01/03/2024 6:42 AM Specimen Received Date: 01/04/2024 10:57 AM us Jet Palomares M.D. LAB MICROBIOLOGY - BLOO D ORDERABLES Final Result [facility] [address] [place] [address], [facility] [address] [address] * Vitamin D, Immunoassay, Total, Serum (01/03/2024 6:42 AM METAL FLOW COORDINATOR) Vitamin D, Immunoassay, Total, S 23 20 - 80 ng/mL 01/04/2024 8:37 AM METAL FLOW COORDINATOR [facility]TO Comment: Optimum levels within the healthy population are 20-50, patients with bone disease may benefit from high levels within this range Blood (Blood, Venous) 01/03/2024 6:42 AM METAL FLOW COORDINATOR 01/04/2024 8:02 AM METAL FLOW COORDINATOR us Portia Rachel M.D., Ph.D. LAB BLOOD ADD-ON Final Res ult Performing Organization Address City/[facility]/ZIP Co de Phone Number [facility] [address] [place] [address], [facility] [place] [address] [place] [address] * HBc Total Ab, Serum (01/03/2024 6:42 AM METAL FLOW COORDINATOR) HBc Total Ab, S Negative Negative 01/04/2024 11:52 AM METAL FLOW COORDINATOR [facility] Blood (Blood, Peripheral Draw) 01/03/2024 6:42 AM METAL FLOW COORDINATOR 01/04/2024 7:28 AM METAL FLOW COORDINATOR us Jet Palomares M.D. LAB MICROBIOLOGY - BLOO D ORDERABLES Final Result Performing Organization Address [facility] Co de Phone Number [facility] [address] [place] [address] [facility] [address] [place] [address] * HBs Antibody, Serum (01/03/2024 6:42 AM METAL FLOW COORDINATOR) HBs Antibody, S Negative 7:57 AM METAL FLOW COORDINATOR [facility] Comment: Patient is presumed NOT to be immune to infection with HBV. Consumption of high-dose biotin supplement within 12 hours of blood collection for this test can cause false-negative results. ----REFERENCE VALUE---- Unvaccinated: Negative Vaccinated: Positive HBs Antibody, Quantitative, S <3.50 mIU/mL 01/03/2024 7:57 AM METAL FLOW COORDINATOR [facility]TO Comment: ----REFERENCE VALUE---- <8.50: Negative 8.50-11.49: Indeterminate >=11.50: Positive Blood (Blood, Peripheral Draw) 01/03/2024 6:42 AM METAL FLOW COORDINATOR 01/03/2024 6:55 AM METAL FLOW COORDINATOR us Jet Palomares M.D. LAB MICROBIOLOGY - BLOO D ORDERABLES Final Result Performing Organization Address City/[facility]/ZIP Co de Phone Number [facility] [address] [place] [address], [address] [address] * Hepatitis B Surface Antigen (01/03/2024 6:42 AM METAL FLOW COORDINATOR) HBs Antigen, S Nonreactive Nonreactive 01/03/2024 8:07 AM METAL FLOW COORDINATOR MK Blood (Blood, Peripheral Draw) 01/03/2024 6:42 AM METAL FLOW COORDINATOR 01/03/2024 6:55 AM METAL FLOW COORDINATOR us Jet Palomares M.D. LAB MICROBIOLOGY - BLOO D ORDERABLES Final Result Performing Organization Address City/[facility]/ZIP Co de Phone Number [facility] [address] [place] [address] * (ABNORMAL) Calcium, Ionized (01/03/2024 6:42 AM METAL FLOW COORDINATOR) Only the most recent of2 resultswithin the time period is included. [facility] Calcium, Ionized, B 4.31(L) 4.65 - 5.30 mg/dL 01/03/2024 7:00 AM METAL FLOW COORDINATOR [facility] Blood 01/03/2024 6:42 AM METAL FLOW COORDINATOR 01/03/2024 6:55 AM METAL FLOW COORDINATOR us Deanna Lewis APRN, C.N.P., D.N.P., M.S.N. LAB B LOOD NON ADD-ON Final Result [facility] [address] [place] [address], [place] [address] * Leukemia/Lymphoma Immunophenotyping by Flow Cytometry (01/03/2024 6:10 AM METAL FLOW COORDINATOR) LCMS Result Performed 01/05/2024 1:37 PM METAL FLOW COORDINATOR DTL Final Diagnosis: Pleural fluid, flow cytometric immunophenotyp ing: No monotypic B-cell population or increase in blasts identified. Reviewed by: Blank Crisostomo M.D. 01/05/2024 1:37 PM METAL FLOW COORDINATOR DTL Special Studies: Results: Blasts: Not increased by CD45/side scatter and CD34. B-cells: Absence of [id number] B cells. B-cell markers tested: CD19, CD10 and kappa and lambda surface light chains. T-cells/NK-joelle ls: No aberrant phenotype by CD3 and CD16. Quality assessment: Specimen received within validated guidelines. 01/05/2024 1:37 PM METAL FLOW COORDINATOR DTL Microscopic Description A Hu-Giemsa- stained slide prepared from the flow cytometry specimen is examined. Morphology is suboptimal. 01/05/2024 1:37 PM METAL FLOW COORDINATOR DTL Comment: ----ADDITIONAL INFORMATION---- This test was developed using an analyte specific reagent. Its performance characteristics were determined by [facility] in a manner consistent with CLIA requirements. This test has not been cleared or approved by the U.S. Food and Drug Administration. Fluid (Pleural Fluid, Right) 01/03/2024 6:10 AM METAL FLOW COORDINATOR 01/04/2024 8:57 AM METAL FLOW COORDINATOR us Octavio Cavazos, Ch.B. LAB GENETIC TESTIN G Final Result [facility] [address] [place] [address], [facility] DTL [address] [place] [address] * M tuberculosis Complex PCR (01/03/2024 6:10 AM METAL FLOW COORDINATOR) MTB Complex PCR, Specimen Source Fluid, Pleural Fluid, Right 01/06/2024 7:45 PM METAL FLOW COORDINATOR DTL MTB Complex PCR, Result Negative Not Applicable 01/06/2024 7:45 PM METAL FLOW COORDINATOR DTL Comment: A mycobacterial culture must always [...] developed and its performance characteristics determined by [facility] in a manner consistent with CLIA requirements. This test has not been cleared or approved by the U.S. Food and Drug Administration. Fluid (Pleural Fluid, Right) 01/03/2024 6:10 AM METAL FLOW COORDINATOR 01/04/2024 10:24 AM METAL FLOW COORDINATOR us Octavio Cavazos, Ch.B. LAB MICROBIOLOGY - GENERAL ORDERABLES Final Result [facility] [address] [place] [address], [place] [address] [place] [address] * (ABNORMAL) Bacterial Culture, Aerobic + Susceptibility (01/03/2024 6:10 AM METAL FLOW COORDINATOR) Pathologist [facility] Bacterial Culture, Aerobic + Susc STREPTOCOCCUS ANGINOSUS GROUP 4+ (A) 01/06/2024 12:07 PM METAL FLOW COORDINATOR MKTO Fluid (Pleural Fluid, Right) 01/03/2024 6:10 AM METAL FLOW COORDINATOR 01/03/2024 5:08 PM METAL FLOW COORDINATOR Comment:Specimen Source Site : Fluid Narrative Organism [...] GENERAL ORDERABLES Final Result Performing Organization Address City/[facility]/ZIP Co de Phone Number [facility] [address] [place] [address], [place] MK[facility] [place] [address] [place] [address] * Cholesterol, Body Fluid (01/03/2024 6:10 AM METAL FLOW COORDINATOR) Cholesterol, BF 34 See Comment mg/dL 01/05/2024 8:47 AM METAL FLOW COORDINATOR DTL Comment: ----ADDITIONAL INFORMATION---- Pleural fluid cholesterol concentrations > 45 to 65 mg/dL are consistent with exudative effusions. Cholesterol concentrations > 200 mg/dL suggest pseudochylous effusions. Peritoneal fluid cholesterol concentrations > 32 to 70 mg/dL suggest a malignant cause of ascites. All other fluids refer to http://www.[facility].com for further interpretive information. This test has been modified from the aquatics assistant department head's instructions. Its performance characteristics were determined by [facility] in a manner consistent with CLIA requirements. This test has not been cleared or approved by the U.S. Food and Drug Administration. Fluid Type Pleural 01/05/2024 8:14 AM METAL FLOW COORDINATOR DTL Fluid (Pleural Fluid, Right) 01/03/2024 6:10 AM METAL FLOW COORDINATOR 01/05/2024 7:49 AM METAL FLOW COORDINATOR Octavio Cavazos, ChElielB. LAB BODY FLUIDS AN D STOOLS ORDERABLES Final Result Performing Organization Address City/[facility]/ZIP Co de Phone Number [facility] [address] [place] [address], [place] DTL [facility] [address] [place] [address] * DX Chest Portable 1 View (01/02/2024 3:59 PM METAL FLOW COORDINATOR) Only the most recent of2 resultswithin the time period is included. Anatomical Region Laterality Modality Chest, Thoracic RST LOS, Tho racic ARZ LOS, Thoracic FLA LOS N/A Digital Radiography Impressions 01/02/2024 4:13 PM METAL FLOW COORDINATOR Right jugular catheter terminates at the mid SVC. No pneumothorax. Narrative 01/02/2024 4:13 PM METAL FLOW COORDINATOR EXAM: DX CHEST PORTABLE 1 VIEW COMPARISON: [...] No acute osseous findings. Procedure Note Charbel Cpaone M.D. - 01/02/2024 EXAM: DX CHEST PORTABLE [...] DIAGNOSTIC IMAGI NG PROCEDURES Final Result * ND INS NON-BLAINE CVC >5YR, ND US GUIDE VASC ACCESS, LDA ANE CENTRAL LINE DOUBLE LUMEN ADULT, MC ANE CENTRAL LINE GENERIC PERFORMABLE (01/02/2024 3:47 PM METAL FLOW COORDINATOR) Narrative Nikki Salinas M.D. - 01/02/2024 3:47 PM METAL FLOW COORDINATOR Nikki Salinas M.D. 01/02/2024 3:50 PM Invasive [...] Image-General Surgery Image Exam (01/02/2024 3:30 PM METAL FLOW COORDINATOR) Narrative [facility] - 01/06/2024 8:53 PM METAL FLOW COORDINATOR This order has been created and auto-finalized to support the import of images acquired without order. The clinical documentation to support these images can be found on the encounter that produced images. us Provider Not In System IMG NON RAD IMAGING PROCE DURES Final Result [facility] NA * US Kidneys Bilateral with Bladder (01/02/2024 10:15 AM METAL FLOW COORDINATOR) Anatomical Region Laterality Modality Abdomen, Renal, Ultrasound R ST LOS, Ultrasound ARZ LOS, Ultrasound FLA LOS Bilateral Ultrasound Impressions 01/02/2024 10:57 AM METAL FLOW COORDINATOR 1. No hydronephrosis. 2. Bilateral simple appearing renal cysts. Narrative 01/02/2024 10:57 AM METAL FLOW COORDINATOR EXAM: US KIDNEYS BILATERAL WITH BLADDER COMPARISON: [...] * CK (Creatine Kinase) (01/02/2024 4:10 AM METAL FLOW COORDINATOR) Creatine Kinase, P 78 39 - 308 U/L 01/02/2024 9:49 AM METAL FLOW COORDINATOR MKTO Blood (Blood, Venous) 01/02/2024 4:10 AM METAL FLOW COORDINATOR 01/02/2024 9:30 AM METAL FLOW COORDINATOR Jet Palomares M.D. LAB BLOOD ADD-ON Final Result Performing Organization Address [facility]/ZIP Co de Phone Number [facility] [address] [place] [address] * Lactate, B (01/02/2024 3:41 AM METAL FLOW COORDINATOR) Lactate, B 0.8 0.5 - 2.2 mmol/L 01/02/2024 4:47 AM METAL FLOW COORDINATOR MKTO Blood (Blood, Venous) 01/02/2024 3:41 AM METAL FLOW COORDINATOR 01/02/2024 4:45 AM METAL FLOW COORDINATOR us Deanna Lewis APRN, C.N.P., D.N.P., M.S.N. LAB B LOOD NON ADD-ON Final Result Performing Organization Address City/[facility]/ZIP Co de Phone Number [facility] [address] [place] [address] * (ABNORMAL) Osmolality (01/02/2024 3:41 AM METAL FLOW COORDINATOR) Osmolality, S 338(H) 276 - 306 mOsm/kg 01/02/2024 5:40 AM METAL FLOW COORDINATOR MKTO Blood (Blood, Venous) 01/02/2024 3:41 AM METAL FLOW COORDINATOR 01/02/2024 4:05 AM METAL FLOW COORDINATOR us Fausto Bey M.D. LAB BLOOD ADD-ON Final Result Performing Organization Address City/[facility]/ZIP Co de Phone Number [facility] [address] [place] [address], [facility] [place] [address] [place] [address] * (ABNORMAL) Blood Gas with Coox, Venous (01/02/2024 3:41 AM METAL FLOW COORDINATOR) pO2, Venous 49 Not applicable mm Hg 01/02/2024 4:14 AM METAL FLOW COORDINATOR MKTO pCO2, Venous 29(L) 41 - 51 mm Hg 4:14 AM METAL FLOW COORDINATOR MKTO pH, Venous 7.29(L) 7.32 - 7.43 pH 01/02/2024 4:14 AM METAL FLOW COORDINATOR MKTO Base Excess, Venous -12 Not applicable mmol/L 01/02/2024 4:14 AM METAL FLOW COORDINATOR [facility] HCO3, Venous 13 Not applicable mmol/L 01/02/2024 4:14 AM METAL FLOW COORDINATOR [facility]TO Hemoglobin, Venous 9.6(L) 13.2 - 16.6 g/dL 01/02/2024 4:14 AM METAL FLOW COORDINATOR [facility]TO O2Hb, Venous 79.4 Not applicable % 01/02/2024 4:14 AM METAL FLOW COORDINATOR MKTO COHb, Venous 0.2 <3.0 % 01/02/2024 4:14 AM METAL FLOW COORDINATOR [facility]TO MetHb, Venous 1.2 <1.5 % 01/02/2024 4:14 AM METAL FLOW COORDINATOR [facility]TO CtO2, Venous 10.8 Not Applicable vol % 01/02/2024 4:14 AM METAL FLOW COORDINATOR MKTO Blood (Blood, Venous) 01/02/2024 3:41 AM METAL FLOW COORDINATOR 01/02/2024 4:05 AM METAL FLOW COORDINATOR Fausto Bey M.D. LAB BLOOD NON ADD-ON Final Resu lt [facility] [address] [place] [address], [facility] MKTO [facility] [place] [address] [place] [address] * CT chest abdomen pelv wo con-Outside CT Body (01/01/2024 2:25 PM METAL FLOW COORDINATOR) 01/01/2024 2:17 PM METAL FLOW COORDINATOR Narrative [facility] - 01/01/2024 3:57 PM METAL FLOW COORDINATOR This order has been created and auto-finalized [...] PROCEDURES Final R esult Performing Organization Address [facility] de Phone Number [facility] NA * CT HEAD/BRAIN WO CON-Outside CT Neuro (01/01/2024 2:20 PM METAL FLOW COORDINATOR) 01/01/2024 2:17 PM METAL FLOW COORDINATOR Narrative [facility] - 01/01/2024 3:56 PM METAL FLOW COORDINATOR This order has been created and auto-finalized [...] PROCEDURES Final R esult Performing Organization Address [facility] Co de Phone Number [facility] NA from Last 3 Months
--- OUTSIDE RECORDS SUMMARY | 2024-01-08 01:32 | XMS_ITS ---
Author Organization [facility] Address [address] [place] [address] Care Team Providers Care Credit Card Clerk Name Role Phone Unavailable Unavailable Unavailable Surgery Details Not on file Complications Check Surgery Details section. Procedure Estimated Blood Loss Check Surgery Details section. Procedure Findings Check Surgery Details section. Procedure Specimens Taken Check Surgery Details section.
--- OUTSIDE RECORDS SUMMARY | 2024-01-08 01:32 | XMS_ITS | Encounter Summary ---
Author Organization [facility] Address [address] [place] [address] Care Team Providers Care Lap Cutter Name Role Phone Elsewhere, Pcp Primary Care Provider Unavailabl e Reason for Referral * Outpatient (Routine) - Authorized Specialty Diagnoses / Procedures Referred By Contac t Referred To Contact Infectious Diseases Diagnoses Pneumonia Sarah Perry M.D. [address] [place] [phone] Phone: tel: fax: [facility] Region Referral ID Status Reason Start Date Expiration Date V isits Requested Visits Authorized [id number] Authorized 01/07/2024 07/08/2025 1 1 Scheduling Instructions Post hospital [facility] Encounter Details Date Type Department Care Team ([facility] st Contact Info) Description 01/07/2024 Clinical Communication Department of Infectious Diseases in [place], [place] [address] [place] [phone] Stacy Esposito R.N. Social History Tobacco Use Types Packs/Day Years Used Date Smoking Tobacco: Never Assessed Nutrition Answer Date Recorded Nutrition: EVOO Fat Source Unknown 12/24 Nutrition: Servings of Fruits/Vegetables per Day Not on file 12/24/2022 Dental Answer Date Recorded Dental: Regular Dentist Unknown 12/25/19 Sex and Gender Information Value Date Recorded Sex Assigned at Not on file Legal Sex Male 3:31 PM ENGINE SETTER Gender Identity Not on file Sexual Orientation Not on file documented as of this encounter Plan of Treatment Upcoming Encounters Date Type Department Care Team (Late st Contact Info) Description 01/26/2024 1:00 PM ENGINE SETTER Office Visit Department of Infectious Diseases in [address] [phone] Clara Jones P.AAugustus. [address] [place] [phone] Scheduled Referrals Name Type Priority Associated Diagnoses Order Schedule Infectious Diseases office visit (clinic) Outpatient Referral Routine Pneumonia Expected: 01/26/2024, Expires: 04/08/2025 documented as of this encounter Visit Diagnoses Diagnosis Pneumonia- Primary documented in this encounter Care Teams Lap Cutter Relationship Specialty Start Date End Date Elsewhere, Pcp PCP - General Internal Medicine 01/04/24 documented as of this encounter
--- OUTSIDE RECORDS SUMMARY | 2024-01-08 01:33 | XMS_ITS | Clinical Summary ---
Author Organization [facility] Address [place], [place] [address] Care Team Providers Care Rod Welder Name Role Phone Tate Bear DO Primary [...] Type Department Care Team Description 12/14/[address] [phone] Tate Bear, Refill Request (Losartan-hydrochlorothi azide) 10/29/[address] [phone] Tate Bear, DO Refill Request (Atorvastatin) from Last 3 Months Immunizations Name Administration Dates Next Due COVID-19 vaccine ([employer] 30mcg/0.3mL) GEORGE WARE 10/23/2020,09/10/2020 Influenza RIV4 [...] 70 12/17/2022 11:03 AM CDT Temperature 36.6 C (97.8 F) 09/22/2021 9:36 AM CDT Respiratory Rate 18 09/21/2021 11:42 AM CDT [...] Code Status Discussion: Reviewed Preferences Care Teams Rod Welder Relationship Specialty [place] [address] [place] [address] PCP - General Family Practice 07/23/22
--- OUTSIDE RECORDS SUMMARY | 2024-01-08 01:33 | XMS_ITS | Encounter Summary ---
Author Organization [facility] Address [address] [place] [address] Care Team Providers Care Extrusion Die Coordinator Name Role Phone Unavailable Primary Care Provider Unavailabl e Reason for Visit * Auth/Cert (Routine) Specialty Diagnoses / Procedures Referred By Contac t Referred To Contact Diagnoses Failure Renal Acute (Acute Kidney Injury) (HCC) ACUTE ON CHRONIC RENAL FAILURE Procedures INPT Referral ID Status Reason Start Date Expiration Date Visits Re quested Visits Authorized [id number] 1 1 Encounter Details Date Type Department Care Team (Latest Contact Info) Description 01/01/2024 8:59 PM JIG AND FIXTURE REPAIRER - Present Hospital Encounter [facility], Fourth Floor [address] [place] [address] Frank Mccall M.D. [address] [place] [address] Octavio Morton M.B., Ch.B. [address] [place] [id number] Jeremías Fernandez M.D. [address] [place] [address] Chapito Velazquez D.O. [address] [place] [address] Fausto Bey M.D. [address] [place] [id number] Failure Renal Acute (Acute Kidney Injury) (HCC) (Primary Dx) Social History Tobacco Use Types Packs/Day Years Used Date Smoking Tobacco: Never Assessed Nutrition Answer Date Recorded Nutrition: EVOO Fat Source Unknown 12/24 Nutrition: Servings of Fruits/Vegetables per Day Not on file 12/24/2022 Dental Answer Date Recorded Dental: Regular Dentist Unknown 12/25/19 23 Sex and Gender Information Value Date Recorded Sex Assigned at Not on file Legal Sex Male 3:31 PM JIG AND FIXTURE REPAIRER Gender Identity Not on file Sexual Orientation Not on file documented as of this encounter Last Filed Vital Signs Vital Sign Reading Time Taken Comments Blood Pressure 91/67 01/07/2024 10:31 PM JIG AND FIXTURE REPAIRER Pulse 108 01/07/2024 2:28 PM JIG AND FIXTURE REPAIRER Temperature 36.5 C (97.7 F) 01/07/2024 10:31 PM JIG AND FIXTURE REPAIRER Respiratory Rate 28 01/07/2024 10:31 PM JIG AND FIXTURE REPAIRER Oxygen Saturation 96% 01/07/2024 6:00 PM JIG AND FIXTURE REPAIRER Inhaled Oxygen Concentration - - Weight 59.1 kg (130 lb 4.7 oz) 01/04/2024 5:46 P M JIG AND FIXTURE REPAIRER Height 170.2 cm (5' 7) 01/01/2024 9:10 PM JIG AND FIXTURE REPAIRER Body Mass Index 20.41 01/01/2024 9:10 PM JIG AND FIXTURE REPAIRER documented in this encounter Progress Notes * Michelle Saha - 01/07/2024 1:48 PM CST Clinical Note Types: Reassessment NUTRITION ASSESSMENT Pt stated that his nausea has gotten better and he is feeling more hungry. Pt's reports he is eating more than he has in weeks. Pt's po intake is still inadequate but is improving. Pt starting terrie count. Pt ate 25% of his breakfast (125kcal and 5g of protein). Pt ate all of his peaches, pears,milk, and 1/2 of his Starry (278kcals, 9g of protein). Pt didn't like the Ensure d/t the thick texture. Pt willing to try other protein supplements. Pt's last BM x 2 on 01/05. Percentage of Meals Eaten for the past 72 hrs: Percent Meals Eaten (%) 01/07/24 0837 25 01/06/24 1758 50 01/06/24 1343 0 01/06/24 0900 0 Severe Malnutrition (01/02/24) The patient does meet the ASPEN Criteria of malnutrition based on: Energy Intake: Less than or equal to 50 % of estimated energy requirement for greater than or equalto 5 days Interpretation of Weight Loss: greater than 7.5% 3 months Body Fat: Moderate Loss Muscle Mass: Moderate Loss Fluid Accumulation: Moderate-Severe This is in the context of Acute Illness or Injury. PERTINENT LABS: Last 3 results Lab Units 01/07/24 0529 01/06/24 0537 01/05/24 0552 SODIUM P mmol/L 141 142 141 POTASSIUM P mmol/L 3.3* 3.3* 3.7 CHLORIDE P mmol/L 105 104 102 BUN P mg/dL 41* 37* 29* CREATININE mg/dL 2.01* 1.91* 1.66* PHOSPHORUS INORGANIC P mg/dL 2.5 2.7 -- CALCIUM P mg/dL 8.1* 8.4* 8.8 MAGNESIUM RL mg/dL 1.7 1.5* -- ANTHROPOMETRICS Height: 170.2 cm Admission Weight: 63.7 kg Weight: 59.1 kg BMI (Calculated): 20.4 kg/m?? [place] Body Weight (Calculated) : 66.1 kg % [place] Body Weight: 96 % IBW Dietary Orders (From admission, onward) Start Ordered 01/07/24 140 Oral supplement -Supplement; Unjury Protein (chicken soup); Take at: Afternoon snack (Oral Nutrition Supplement) Until discontinued Question Answer Comment Type: Supplement Supplement: Unjury Protein (chicken soup) Take at: Afternoon snack 01/07/24 1403 01/05/24 142 Adult Diet Regular (Adult Diet) Diet effective now Question: Diet texture: Answer: Regular 01/05/24 1422 NUTRITION DIAGNOSIS: Malnutrition (undernutrition) related to decreased appetite and diarrhea as evidenced by reported weight loss in the past 2 months, decreased appetite, moderate fat and muscle wasting, and noted 3+ edema in bilateral lower extremities. Nutrition Diagnosis Reassessment: Ongoing NUTRITION PLAN AND INTERVENTIONS: Interventions: Medical food supplement, Increase nutrient intake with small, frequent meals and/or snacks (DWAIN Simmons. Start terrie count. Send Unjury chicken soup mixed with hot water for PM snack and apple Liquacel mixed with Starry for HS snack.) MONITORING AND EVALUATION: Nutrition Monitoring/Evaluation Monitoring: Meals/Supplement Intake, Nausea/Vomiting/Diarrhea, Pertinent Labs, Ascites/Edema, Weight Status Cosigned by Olena Ramirez RDN, LD at 01/07/2024 2:10 PM JIG AND FIXTURE REPAIRER AND FIXTURE REPAIRER AND FIXTURE REPAIRER * Chapito Velazquez D.O. - 01/07/2024 12:06 PM CST REASON FOR ADMISSION: Sepsis SUBJECTIVE Kavon Song was seen and examined today. Patient was seen and examined with nursing staff during bedside team rounds. Sitting up in a chair at the time of my exam. Patient is very hard of hearing. Family is present at bedside. States he is having some pain around his right-sided chest tube spot and some pain at the right ankle. Denies other current complaints. His wondering how much longer he will be in the hospital. Bedside nursing and family report that he is starting to increase his p.o. intake. Patient states he is no longer nauseous. CURRENT INPATIENT MEDICATIONS Current Facility-Administered Medications: acetaminophen tablet 500 mg (TylenoL), 500 mg, oral, Q6H PRN, Fausto Bey M.D., 500 mg at 01/07/24 1044 alteplase 10 mg in NaCl 0.9% intrapleural solution, 10 mg, intrapleural, Q12H LOUANN, Fidencio Oliva M.D., 10 mg at 01/07/24 0933 ampicillin-sulbactam 3 g in NaCl 0.9% IVPB (Unasyn), 3 g, intravenous, Q12H, Sarah Perry M.D., Last Rate: 400 mL/hr at 01/07/24 0932, 3 g at 01/07/24 0932 bisacodyL suppository 10 mg (Dulcolax), 10 mg, rectal, Daily PRN, Fausto Bey M.D. dornase ember 5 mg in sterile water intrapleural solution, 5 mg, intrapleural, Q12H Hazel LEW Sandeep, M.D., 5 mg at 01/07/24 0934 heparin (porcine) injection 5,000 Units, 5,000 Units, subcutaneous, Q8H [facility] CAR[facility] Bolun, M.D., 5,000 Units at 01/07/24 0523 Influenza Trivalent High Dose (PF) Vaccine 0.5 mL (Fluzone HD), 0.5 mL, intramuscular, Once, Octavio Morton M.B., Ch.B. ipratropium-albuteroL 0.5-2.5 mg/3 mL nebulizer solution 3 mL (DuoNeb), 3 mL, nebulization, Q6H PRN, Fausto Bey M.D. melatonin tablet 3 mg, 3 mg, oral, At bedtime PRN, Rosa Marley M.D. midodrine tablet 10 mg (ProAmatine), 10 mg, oral, Daily PRN, Jet Palomares M.D., 10 mg at 01/03/24 0924 naloxone injection 0.1 mg, 0.1 mg, intravenous, Q5 Min PRN, Fausto Bey M.D. oxyCODONE IR tablet 5 mg (Roxicodone), 5 mg, oral, Q4H PRN, 5 mg at 01/07/24 1044 OR oxyCODONE IR tablet 10 mg (Roxicodone), 10 mg, oral, Q4H PRN, Fausto Bey M.D., 10 mg at 01/04/24 2325 polyethylene glycol powder packet 17 g (Miralax), 17 g, oral, Daily PRN, Fausto Bey M.D. potassium chloride ER tablet 40 mEq, 40 mEq, oral, BID with meals, Portia Ramos M.D., Ph.D., 40 mEq at 01/07/24 0933 prochlorperazine injection 5 mg (Compazine), 5 mg, intravenous, Q6H PRN, Fausto Bey M.D., 5 mg at 01/04/24 0759 sodium chloride 0.9 % injection 10 mL, 10 mL, intravenous, PRN, Fausto Bey M.D. sodium chloride 0.9 % injection 10 mL, 10 mL, intravenous, PRN, Octavio Morton M.B., Ch.B., 10mL at 01/04/24 1020 sodium chloride 0.9 % injection 3 mL, 3 mL, intravenous, PRN, Fausto Bey M.Arlene. sodium chloride 0.9 % injection 3 mL, 3 mL, intravenous, Q12H LOUANN, Fausto Bey M.D., 3 mL at 01/07/24 0934 sodium chloride 0.9 % injection 5 mL, 5 mL, miscellaneous, Q12H LOUANN, Fidencio Oliva M.D., 5 mL at 01/07/24 0934 sodium chloride 0.9 % injection 5 mL, 5 mL, miscellaneous, Q12H LOUANN, Fidencio Oliva M.D., 5 mL at 01/07/24 0934 OBJECTIVE VITAL SIGNS Vitals: 01/07/24 1044 BP: 102/69 Pulse: Resp: 24 Temp: 36.2 ??C SpO2: 97% . PHYSICAL EXAMINATION General: Awake, alert, no acute distress, alert and oriented x3. Elderly white male. Thin appearing. HEENT: NC/AT, Mucous membranes moist. On room air. Right neck dialysis access catheter noted in place CV: RRR, no murmurs noted PULM: Clear to auscultation bilaterally, no rhonchi, wheezes, nonlabored respiration. Right-sided chest tube noted in place Abdomen: Soft, nontender, positive bowel sounds Extremities: No edema DIAGNOSTIC DATA LABS: Recent Results (from the past 24 hours) Hepatic Function Panel Collection Time: 01/07/24 5:29 AM Result Value Bilirubin, Total, P <0.2 Bilirubin, Direct, P 0.1 Aspartate Aminotransferase (AST), P 25 Alanine Aminotransferase (ALT), P 15 Alkaline Phosphatase, P 110 Albumin, P 2.5 (L) Protein, Total, P 5.2 (L) CBC with Differential, Blood Collection Time: 01/07/24 5:29 AM Result Value Hemoglobin 8.7 (L) Hematocrit 26.8 (L) Erythrocytes 2.84 (L) MCV 94.4 RBC Distrib Width 14.7 (H) Platelet Count 263 Leukocytes 14.9 (H) Neutrophils 12.77 (H) Lymphocytes 0.90 (L) Monocytes 0.87 (H) Eosinophils 0.23 Basophils 0.09 (H) Basic Metabolic Panel Collection Time: 01/07/24 5:29 AM Result Value Potassium, P 3.3 (L) Sodium, P 141 Chloride, P 105 Bicarbonate, P 24 Anion Gap, P 12 BUN (Blood Urea Nitrogen), P 41 (H) Creatinine 2.01 (H) Estimated GFR (eGFR) 32 (L) Calcium, Total, P 8.1 (L) Glucose, P 108 Magnesium Collection Time: 01/07/24 5:29 AM Result Value Magnesium, P 1.7 Phosphorus Inorganic Collection Time: 01/07/24 5:29 AM Result Value Phosphorus (Inorganic), P 2.5 Morphology Evaluation Collection Time: 01/07/24 5:29 AM Result Value RBC Morphology See Specific Findings PLT Morphology Normal PLT Estimate Adequate Anisocytosis Slight (A) Basophilic Stippling Slight (A) Poikilocytosis Slight (A) IMAGING: DX Chest 1 View Result Date: 01/07/2024 Impression: No significant change. ASSESSMENT / PLAN Leukocytosis with neutrophilia Right sided empyema s/p thoracentesis 01/03/2024 and chest tube on 01/05/2024 Dense rounded mass like and spiculated nodular consolidation in the RLL The patient had a thoracentesis on 01/03/2024 and pleural fluid is showing [id number] neutrophils and milky appearance. Chronic Diarrhea Patient reports chronic diarrhea around 1 year duration. Whipple PCR ordered by Infectious Disease.Consider GI consult EGD versus colonoscopy for diagnostic purposes. Acute kidney injury on chronic kidney disease stage 3 Uremia Volume overload Metabolic acidosis Temporary dialysis access obtained and patient given dialysis 01/02/2024-01/04/2024 Hypomagnesemia Hypokalemia Severe Malnutrition (01/02/24) The patient meets the ASPEN Criteria of malnutrition based on: Energy Intake: Less than or equal to 50 % of estimated energy requirement for greater than or equalto 5 days Interpretation of Weight Loss: greater than 7.5% 3 months Body Fat: Moderate Loss Muscle Mass: Moderate Loss Fluid Accumulation: Moderate-Severe This is in the context of Acute Illness or Injury. Malnutrition Present Upon Admission: Yes Agree with Registered Dietitian's assessment and treatment plan: Interventions: Medical food supplement, Increase nutrient intake with small, frequent meals and/or snacks (Physician ordered to send vanilla Ensure protein supplement TID (breakfast, lunch, and dinner). Will send bariatric advantage once to see if pt likes it.) Plan: Chest tube remains in place Chest tube has fairly significant output Pulmonology recommendations appreciated regarding chest tube Creatinine slightly increased today Nephrology recommendations appreciated, no indication for dialysis Patient continues to have right-sided temporary dialysis access catheter Infectious disease recommendations appreciated Cultures growing strep anginosus Started on Unasyn 3 g every 12 hours, final antibiotic duration to be determined in the outpatient setting (anticipate 3-4 weeks) - if patient is to discharge before antibiotics complete can transitioned to Augmentin with a tentative stop date of 01/25 Does need id follow up and a repeat CT chest in approximately 3-4 weeks Dietitian recommendations appreciated Patient is increasing his p.o. intake Encourage protein shakes Continue PT/OT while in the hospital Family updated at bedside Deep venous thrombosis prophylaxis: Heparin subQ. Code status: DNR/DNI DISPOSITION PLAN Remains admitted for the above reasons ADMINISTRATIVE BILLING Total time spent 50 minutes spent in counseling and coordination of care. AND FIXTURE REPAIRER AND FIXTURE REPAIRER * Antonio Dela Cruz PLuis M, D.P.T. - 01/07/2024 10:47 AM CST Physical Therapy Inpatient Treatment Note SUBJECTIVE Patient: Kavon Song Room: [facility] Referring/Attending Provider: Chapito Velazquez D.O. Medical Diagnosis: 1. Failure Renal Acute (Acute Kidney Injury) (HCC) Payor: [facility] / Plan: [employer] HMO / Product Type: HMO / Subjective Comments: Patient presents to PT with nursing staff, his spouse, and his son present in the room. Patient agreeable to today's PT session. Activity Orders: Nursing Activity Orders (From admission, onward) Start Ordered 01/01/242117 Activity/Position: Up Ad July, Up to Chair; Other (comment); Ambulate as much as possible considering previous activity level and physical functioning. Resume activity level following recovery from procedure and/or tests unless otherwise directed.... Until discontinued Question Answer Comment Activity Level: Up Ad July Activity Level: Up to Chair Ambulation Goals: Other (comment) Ambulation goals comment: Ambulate as much as possible considering previous activity level and physical functioning. Resume activity level following recovery from procedure and/or tests unless otherwise directed. Up to chair goals: With meals Restrictions/Precautions: None Brace/Device: None 01/01/242119 Precautions/Restrictions: Fall Precautions Weight Bearing Status: Not applicable Bed Alarm/[place]: No bed alarm or nuria required Invasive Lines/Drains: Chest tube(s) and Telemetry Oxygen Delivery: Room air OBJECTIVE Patient Presents: seated in the chair Pain Assessment: Pain: Patient endorses significant pain/discomfort and describes pain of his chest tube insertion site as ???sore?? but does not rate pain. Adverse Response to Treatment: none Vitals monitored throughout session; within normal ranges. Therapeutic Activity: Bed Mobility: Sit to Supine: Minimal Assistance Devices used: Bed rail Cuing provided: Patient re-educated on how to utilize the logroll technique in order to facilitate increased independence and efficiency with bed mobility. Tactile, verbal, and visual cues utilized for upper and LE management/sequencing. Minimal assistance x1 for LE management back into bed. Transfers: Sit to stand: Minimal Assistance, Stand to sit: Contact Guard Assist Devices used: Front wheeled walker Cuing provided: Verbal and visual cuing for patient to utilize one UE on armrest for force generation and the other UE on the FWW for facilitation of safety/balance. Cues to wait to sit until they feel the bed behind posterior knees and to reach for UE support to control eccentric descent. Gait Assessment: Gait Training: Distance: 6 m Assistance: Contact guard assist Device: Front wheeled walker Quality: Forward flexed posture, shuffling gait pattern, decreased gait velocity, but demonstrates adequate stability throughout. Cueing: none Stairs: Gait on Stairs : Did not occur Patient Disposition at the end of Treatment: was left in bed at end of session with call light within reach. All needs met and questions answered. Patient/caregiver verbalized understanding to contact nursing staff for all needs including transfers and ambulation if appropriate. Assessment Discharge Recommendations: From a physical therapy standpoint, patient would benefit from discharging to short term rehab to continue with physical therapy. Barriers to Discharge Home: Current functional status, Safety concerns, Fall risk, Inaccessible home environment Level of Care Needed - PT: Assistance with transfers (Comment), Assistance with bed mobility, Assistance with stairs, Physical assistance needed Equipment Recommended - PT: Front-wheeled walker Clinical Impression: Mr. Song is a 83 y.o. male who has been hospitalized 6 day(s) with an admitting diagnosis of: 1. Failure Renal Acute (Acute Kidney Injury) (HCC) Currently, patient presents with limitations including decreased tolerance for activity, generalized weakness, and impaired balance resulting in decreased independence and safety with functional mobility and transfers. Based on today's PT session, recommending patient perform transfers and mobilitywith use of gait belt, FWW, and minimal assistance to CGA x1. Functional progress made this therapy session as patient was able to demonstrate increased tolerance to activity by ambulating further distances when transitioning from the bedside chair to back to bed. Patient is quite negative this date frequently stating that he can not or is unable to ambulate thedistance being asked of him. In order to increase the patient's confidence with ambulating around the foot of the bed, this junior technical writer received assistance from direct support staff to follow the patient with the bedside chair. Despite patient's doubt, patient is able to ambulate around the foot of the bed with relative ease. Patient endorses being fatigued, but no increased work of breathing or shortness of breath noted and patient able to maintain intermittent conversation during today's ambulatory bout. Patient re-educated on the logroll transfer were minimal assistance x1 was required again this datefor lifting bilateral LEs back into bed. Acute care skilled PT still medically necessary to facilitate patient towards prior level of function. Skilled physical therapy treatment during this hospitalization is medically necessary in order to provide graded activities to promote patients functional return, safety and quality of life with the established rehabilitation goals. Therapy findings and recommendations were discussed with OT staff, RN, patient, patient's spouse, and patient's son. The treatment plan and discharge recommendations may be modified based upon pt response to treatment. Functional Goals and Timeframes: PT Goal #1: Patient will demonstrate indpendence with functional transfers. PT Goal #1 to be achieved by: 01/09/24 PT Goal #2: Patient will demonstrate indpendence with ambulation of 15m PT Goal #2 to be achieved by: 01/09/24 PT Goal #3: Patient will demonstrate independent with negotiating two steps. PT Goal #3 to be achieved by: 01/09/24 Plan Patient agrees with the plan of care and goals. Continue per plan of care PT Amount: 1 visit per day PT Frequency: 5 times per week PT Duration: until functional goals are met or patient is discharged from the hospital Plan for next session: Continue to progress patient towards safe and independent bed mobility, transfers, and ambulation as medically appropriate. This note was written in part with the assistance of speech to text technology. This note has been reviewed for grammatical, spelling, punctuation, and other errors. Despite best efforts, this document cannot be guaranteed free of all errors. Time Spent with Patient Therapeutic Interventions Therapeutic Activity (min): 9 min Time Tracking Total Timed Units (min): 9 min Total Treatment Time (min): 9 min Antonio Dela Cruz P.T., D.P.T. AND FIXTURE REPAIRER * Sarah Perry M.D. - 01/07/2024 10:19 AM CST Images from the original note were not included. Infectious Diseases [place] [facility] Progress Note SUBJECTIVE REASON FOR CONSULT Infectious Disease Consultation Service is following Kavon Song for empyema. Patient with a complex past medical history presents to the hospital for evaluation of chronic generalized weakness, fatigue, shortness of breath and pleuritic chest pain. Patient was diagnosed with pneumonia, pleural effusion and concern for right lower lobe masslike consolidation. He had a diagnostic thoracentesis revealing findings consistent with empyema, requiring chest tube placement 01/05/24. EVENTS OVER THE PAST 24 HOURS: Cultures are positive for Streptococcus anginosus group. Otherwise patient remains hemodynamically stable, afebrile. WBC 14.9 this morning which is stable. He reports right-sided chest pain around the chest tube insertion area. No other micro data to review OBJECTIVE VITAL SIGNS I have reviewed the current vital sign data as applicable. Blood pressure 96/59, pulse 106, temperature 36.4 ??C, temperature source Temporal, resp. rate (!) 25, height 170.2 cm, weight 59.1 kg, SpO2 92%. Body mass index is 20.41 kg/m??. PHYSICAL EXAMINATION Vitals and nursing note reviewed. Constitutional General: He is not in acute distress. Appearance: He is not toxic-appearing. Cardiovascular Rate and Rhythm: Tachycardia present. Pulmonary Effort: Pulmonary effort is normal. Comments: Decreased breath sounds on the right side Abdominal General: There is no distension. Palpations: Abdomen is soft. Skin Findings: No rash (On exposed areas). Neurological Mental Status: He is alert. Mental status is at baseline. Psychiatric Mood and Affect: Mood normal. DIAGNOSTICS I have independently reviewed and interpreted the diagnostics. Studies of note include: Estimated Creatinine Clearance: 22.5 mL/min (A) (by C-G formula based on SCr of 2.01 mg/dL (H)). Recent Results (from the past 24 hours) [id number] [employer] Test for Pathogen Detection - Miscellaneous Test Collection Time: 01/06/24 11:36 AM Result Value Test Name Karius Test for Pathogen Detection Result Specimen sent out; results to follow Hepatic Function Panel Collection Time: 01/07/24 5:29 AM Result Value Bilirubin, Total, P <0.2 Bilirubin, Direct, P 0.1 Aspartate Aminotransferase (AST), P 25 Alanine Aminotransferase (ALT), P 15 Alkaline Phosphatase, P 110 Albumin, P 2.5 (L) Protein, Total, P 5.2 (L) CBC with Differential, Blood Collection Time: 01/07/24 5:29 AM Result Value Hemoglobin 8.7 (L) Hematocrit 26.8 (L) Erythrocytes 2.84 (L) MCV 94.4 RBC Distrib Width 14.7 (H) Platelet Count 263 Leukocytes 14.9 (H) Neutrophils 12.77 (H) Lymphocytes 0.90 (L) Monocytes 0.87 (H) Eosinophils 0.23 Basophils 0.09 (H) Basic Metabolic Panel Collection Time: 01/07/24 5:29 AM Result Value Potassium, P 3.3 (L) Sodium, P 141 Chloride, P 105 Bicarbonate, P 24 Anion Gap, P 12 BUN (Blood Urea Nitrogen), P 41 (H) Creatinine 2.01 (H) Estimated GFR (eGFR) 32 (L) Calcium, Total, P 8.1 (L) Glucose, P 108 Magnesium Collection Time: 01/07/24 5:29 AM Result Value Magnesium, P 1.7 Phosphorus Inorganic Collection Time: 01/07/24 5:29 AM Result Value Phosphorus (Inorganic), P 2.5 Morphology Evaluation Collection Time: 01/07/24 5:29 AM Result Value RBC Morphology See Specific Findings PLT Morphology Normal PLT Estimate Adequate Anisocytosis Slight (A) Basophilic Stippling Slight (A) Poikilocytosis Slight (A) Micro Microbiology Results (last 10 days) Procedure Component Value - Date/Time Tropheryma whipplei PCR, Blood [[id number]] Collected: 01/06/24 1136 Lab Status: In process Specimen: Blood, Venous Updated: 01/07/24 0807 Bacterial Culture, Aerobic + Susceptibility [[id number]] (Abnormal) Collected: 01/05/24 1250 Lab Status: Preliminary result Specimen: Pleural Fluid Updated: 01/07/24 0850 Bacterial Culture, Aerobic + Susc STREPTOCOCCUS ANGINOSUS GROUP Two Colonies Gram Stain [[id number]] (Abnormal) Collected: 01/05/24 1250 Lab Status: Final result Specimen: Pleural Fluid Updated: 01/05/24 1446 Gram Stain White blood cells, Many. GRAM POSITIVE COCCI Many. Bacterial Culture, Anaerobic + Susceptibility [[id number]] Collected: 01/05/24 1250 Lab Status: Preliminary result Specimen: Pleural Fluid Updated: 01/07/24 0603 Bacterial Culture, Anaerobic No growth to date. MRSA PCR, Nasal [[id number]] Collected: 01/04/241944 Lab Status: Final result Specimen: Swab from Nares Updated: 01/04/242123 MRSA Screen, Nasal by PCR Negative Bacterial Culture, Aerobic + Susceptibility, Respiratory [[id number]] Collected: 01/04/241944 Lab Status: Final result Specimen: Sputum Updated: 01/06/24 0819 Bacterial Culture, Aerobic, Resp No growth after 2 days of incubation. Gram Stain [[id number]] (Abnormal) Collected: 01/04/241944 Lab Status: Final result Specimen: Sputum Updated: 11/18/24 2040 Gram Stain White blood cells, Many. GRAM POSITIVE COCCI Many. Pneumonia Panel, PCR [[id number]] Collected: 01/04/24 194 Lab Status: Final result Specimen: Sputum Updated: 01/04/242242 Specimen Source SPUTUM Acinetobacter calcoaceticus-baumannii complex Undetected copies/mL Enterobacter cloacae complex Undetected copies/mL Escherichia coli Undetected copies/mL Haemophilus influenzae Undetected copies/mL Klebsiella aerogenes Undetected copies/mL Klebsiella oxytoca Undetected copies/mL Klebsiella pneumoniae complex Undetected copies/mL Moraxella catarrhalis Undetected copies/mL Proteus species Undetected copies/mL Pseudomonas aeruginosa Undetected copies/mL Serratia marcescens Undetected copies/mL Staphylococcus aureus complex Undetected copies/mL Streptococcus agalactiae Undetected copies/mL Streptococcus pneumoniae Undetected copies/mL Streptococcus pyogenes Undetected copies/mL Chlamydia pneumoniae Undetected Legionella pneumophila Undetected Mycoplasma pneumoniae Undetected Adenovirus Undetected Coronavirus Undetected Human Metapneumovirus Undetected Human Rhinovirus/Enterovirus Undetected Influenza A Undetected Influenza B Undetected Parainfluenza Undetected Respiratory Syncytial Virus Undetected Comment: ----ADDITIONAL INFORMATION---- This assay is performed using the FDA-cleared ClearRisk Pneumonia Panel (PN) ([employer] Any initial empiric treatment guidance provided in [...] to detect SARS-coronavirus (CoV), MERS-CoV or SARS-CoV-2. Bacteria / Cheri Culture, Blood #1 [[id number]] Collected: 01/03/24 1053 Lab Status: Preliminary result Specimen: Blood, Peripheral Draw Updated: 01/06/24 1105 Bacteria/Cheri Culture, Blood No growth to date. Bacteria / Cheri Culture, Blood #2 [[id number]] Collected: 01/03/24 1052 Lab Status: Preliminary result Specimen: Blood, Peripheral Draw Updated: 01/06/24 1105 Bacteria/Cheri Culture, Blood No growth to date. Hepatitis B Surface Antigen [[id number]] Collected: 01/03/24 0642 Lab Status: Final result Specimen: Blood, Peripheral Draw Updated: 01/03/24 0807 HBs Antigen, S Nonreactive HBs Antibody, Serum [[id number]] Collected: 01/03/24641 Lab Status: Final result Specimen: Blood, Peripheral Draw Updated: 01/03/24 0757 HBs Antibody, S Negative Comment: Patient is presumed NOT to be immune to infection with HBV. Consumption of high-dose biotin supplement within 12 hours of blood collection for this test can cause false-negative results. ----REFERENCE VALUE---- Unvaccinated: Negative Vaccinated: Positive HBs Antibody, Quantitative, S <3.50 mIU/mL Comment: ----REFERENCE VALUE---- <8.50: Negative 8.50-11.49: Indeterminate >=11.50: Positive HBc Total Ab, Serum [[id number]] Collected: 01/03/24641 Lab Status: Final result Specimen: Blood, Peripheral Draw Updated: 01/04/24 1153 HBc Total Ab, S Negative QuantiFERON-Tb Gold Plus, Blood [[id number]] Collected: 01/03/24641 Lab Status: In process Specimen: Blood, Venous Updated: 01/04/24 1057 Narrative: Specimen Information: Specimen ID: [id number] Specimen Type: Blood Specimen Collection Start Date: 01/03/2024 6:42 AM Specimen Received Date: 01/04/2024 10:57 AM Specimen ID: [id number] Specimen Type: Blood Specimen Collection Start Date: 01/03/2024 6:42 AM Specimen Received Date: 01/04/2024 10:57 AM Specimen ID: [id number] Specimen Type: Blood Specimen Collection Start Date: 01/03/2024 6:42 AM Specimen Received Date: 01/04/2024 10:57 AM Specimen ID: [id number] Specimen Type: Blood Specimen Collection Start Date: 01/03/2024 6:42 AM Specimen Received Date: 01/04/2024 10:57 AM Gram Stain [[id number]] (Abnormal) Collected: 01/03/24 0610 Lab Status: Final result Specimen: Pleural Fluid, Right Updated: 01/03/24 173 Gram Stain White blood cells, Many. GRAM POSITIVE COCCI Many. Bacterial Culture, Aerobic + Susceptibility [[id number]] (Abnormal) (Susceptibility) Collected: 01/03/24609 Lab Status: Final result Specimen: Pleural Fluid, Right Updated: 01/06/24 1207 Bacterial Culture, Aerobic + Susc STREPTOCOCCUS ANGINOSUS GROUP 4+ Susceptibility Streptococcus anginosus group SUSCEPTIBILITY, ROLF (MCG/ML) Ampicillin <=0.25 mcg/mL Susceptible Cefotaxime 0.25 mcg/mL Susceptible Ceftriaxone 0.25 mcg/mL Susceptible Clindamycin <=0.25 mcg/mL Susceptible Erythromycin <=0.12 mcg/mL Susceptible Levofloxacin 0.5 mcg/mL Susceptible Moxifloxacin 0.12 mcg/mL Susceptible Penicillin <=0.06 mcg/mL Susceptible Tigecycline <=0.06 mcg/mL Susceptible Vancomycin 0.5 mcg/mL Susceptible Bacterial Culture, Anaerobic + Susceptibility [[id number]] Collected: 01/03/24609 Lab Status: Preliminary result Specimen: Pleural Fluid, Right Updated: 01/05/24 1131 Bacterial Culture, Anaerobic No growth to date. Broad Range Bacteria PCR + Sequencing [[id number]] (Abnormal) Collected: 01/03/24609 Lab Status: Preliminary result Specimen: Pleural Fluid, Right Updated: 01/06/24 1249 Broad Range Bacteria PCR+Sequencing This test was developed and its performance characteristics determined by [facility] in a manner consistent with CLIA requirements. This test has not been cleared or approved by the U.S. Food and Drug Administration. STREPTOCOCCUS INTERMEDIUS DNA detected Comment: Semi-Urgent Result. Semi-Urgent This is a semi-urgent result M tuberculosis Complex PCR [[id number]] Collected: 01/03/24609 Lab Status: Final result Specimen: Pleural Fluid, Right Updated: 01/06/24 1946 MTB Complex PCR, Specimen Source Fluid, Pleural Fluid, Right MTB Complex PCR, Result Negative Comment: A mycobacterial culture must always be [...] developed and its performance characteristics determined by [facility] in a manner consistent with CLIA requirements. This test has not been cleared or approved by the U.S. Food and Drug Administration. Imaging Chest x-ray 01/06/2024 IMPRESSION: Since 01/02/2024, placement of a right pleural pigtail catheter. Slight decrease in size of the small right pleural effusion. Bibasilar consolidation likely represents compressive atelectasis in the setting of effusion. No pneumothorax. The left lung is relatively well aerated. Normal heart size. Aortic calcifications. Right IJ CVC with tip in the mid SVC. Transthoracic echocardiogram 01/04/2024 1. Normal left ventricular chamber size, regional wall motion abnormalities were present (see wall motion graphics), calculated 2-D biplane volumetric ejection fraction of 59%. 2. Normal right ventricular chamber size, mildly reduced systolic function, estimated right ventricular systolic pressure 36 mmHg (right atrial pressure of 10 mmHg). 3. Mildly sclerotic aortic valve. 4. No pericardial effusion. 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 Based on culture results, I recommend adjusting antibiotics to IV Unasyn. He should remain on IV antibiotics while in the hospital, and on dismissal, okay to transition to oral Augmentin. I tentative plan for 3-4 weeks total antibiotic therapy, however he should follow-up with Infectious diseases at the end therapy with repeat CT to finalize antibiotic duration plan depending on resolution of infection. RECOMMENDATIONS: Discontinue ceftriaxone and Flagyl Start IV Unasyn 3 g every 12 hours On dismissal, patient can be transitioned to oral Augmentin. Tentative 3-4 weeks total antibiotics with repeat CT chest at the end and follow-up with Infectious diseases to determine final length of antibiotics depending on resolution of the infection Treatment plan reviewed with Mr. Thomasston, who expressed understanding. All questions answered topatient's satisfaction. Since I do not have additional recommendations I will sign. Please page Infectious Disease Consultation Service with any questions. I personally spent a total 35 minutes in chart and tests review, discussions of the case, counseling and coordination of care as documented above. Sarah Rose M.D. Infectious Disease INFECTIOUS DISEASES SIGN OFF NOTE Sign off antibiotics: Augmentin oral 500 b.i.d. (based on current creatinine clearance) Tentative stop date stop date: 01/26/2024; final stop date to be determined at follow up visit No PICC line needed Monitoring lab recommendations:No 5. Follow up indicated: Follow up with infectious diseases on 01/26/[address] chest, and CBC, CMP. #1 Failure Renal Acute (Acute Kidney Injury) (HCC) #2 Pneumonia #3 Mass Lung #4 Hyponatremia #5 Hypokalemia AND FIXTURE REPAIRER * Portia Ramos M.D., Ph.D. - 01/07/2024 10:05 AM CST Hospital Day 6 SUBJECTIVE Interval Events: I saw Mr. Song today. No acute events. OBJECTIVE Admission weight: 63.7 kg Weights for the past 120 hrs (Last 3 readings): Weight 01/04/24 1746 59.1 kg 01/04/24 1428 61.1 kg 01/04/24 0626 64.8 kg I/O 01/04 0000 01/04 2359 01/05 0000 01/05 2359 01/06 0000 01/06 2359 P.O. 400 720 405 Other 140 Intermittent Medications 100 Total Intake(mL/kg) 400 (6.8) 860 (14.6) 505 (8.5) Urine (mL/kg/hr) 125 (0.1) Stool 0 Chest Tube 148 512 140 Total Output 148 637 140 Net +252 +223 +365 Unmeasured Urine Occurrence 1 x 2 x Unmeasured Stool Occurrence 1 x 2 x VITAL SIGNS Temperature: [36.4 ??C-37 ??C] 36.4 ??C Heart Rate: [95-124] 104 Resp Rate: [19-27] 25 Blood Pressure: (96-119)/(59-69) 96/59 SpO2: [92 %-96 %] 92 % Pulse Rate: [96-108] 106 PHYSICAL EXAMINATION General appearance: ill appearing Lungs: normal respiratory effort Extremities: no edema Hemodialysis Catheter Right Internal Jugular Double (Active) Placement Date/Time: 01/02/24 1550 Line Type (REQUIRED): Temporary (non- tunneled, non-implanted) Procedural Pause Completed: Yes Optimal Site Selected: Yes Catheter Time Out Checklist Completed: Yes Hand Hygiene Performed Prior to Insertion: Yes... Number of days: 5 DIAGNOSTICS Results from last 7 days Lab Units 01/07/24 0529 01/06/24 0537 HEMOGLOBIN g/dL 8.7* 9.2* WBC x10(9)/L 14.9* 14.3* PLATELETS AUTO x10(9)/L 263 285 Last 2 results Lab Units 01/07/24 0529 01/06/24 0537 SODIUM P mmol/L 141 142 POTASSIUM P mmol/L 3.3* 3.3* BICARBONATE PLASMA mmol/L 24 25 BUN P mg/dL 41* 37* CREATININE mg/dL 2.01* 1.91* CALCIUM P mg/dL 8.1* 8.4* PHOSPHORUS INORGANIC P mg/dL 2.5 2.7 MAGNESIUM RL mg/dL 1.7 1.5* ASSESSMENT / PLAN # acute kidney injury on chronic kidney disease (baseline creatinine 1.9); required dialysis on 01/02/2024, 01/03/24 and 01/04/24 # hypokalemia # Hypomagnesemia # metabolic acidosis # chronic diarrhea # anemia # right pleural empyema, s/p thoracentesis on 01/03/24, s/p chest tube placement on 01/05/24 # IgG lambda # hepatomegaly # failure to thrive There's no indication to dialyze him today per his electrolytes and volume status. He is getting potassium supplements today. He is encouraged to eat and drink. His cre is relatively stable (2.01 on 01/07/24 vs 1.91 on 01/06/24). Should his kidney relevant parameters be stable, then we plan to remove temporary dialysis catheter and he will continue followingwith nephrology team in the outpatient setting. Kavon agreed with the plan. AND FIXTURE REPAIRER * Sri Renae, PharmElielD., R.Ph., BCPS - 01/07/2024 9:29 AM CST Pharmacy Abbreviated Progress Note Patient Information Kavon Song is a 83 y.o. male who presents with ARF and PNA Reason for Intervention Antibiotic monitoring Microbiology 01/02: Pleural fluid cultures: streptococcus anginosus (pansensitive) Pleural fluid gram stain: GPC Sputum cultures: pending Blood cultures x 2: NGTD 01/03: MRSA nares PCR: negative PNA PCR panel: all undetected Gram stain, sputum: GPC Bacterial culture, sputum: pending 01/04: Bacterial culture, pleural fluid: streptococcus anginosus Gram stain, pleural fluid: GPC Tropheryma whipplei PCR, blood: pending GI pathogen PCR panel: pending collection Assessment/Plan CAP Pleural empyema CXR (01/01) small loculated R sided pleural effusion. Patient is producing thick, yellow phlegm + leukocytosis (WBC 20.6), and remains afebrile. Pulmonology consulted Maintain chest tube Daily CXRs Dornase + alteplase intrapleurally (01/04 - 01/07) ID consulted Anticipate 3-4 weeks of antibiotics Empiric antibiotics: Unasyn 3 g IV q12h (01/06 - ) Renal dose adjusted Previous antibiotics: Ceftriaxone 2 g IV daily (01/02 - 01/05) Metronidazole 500 mg PO TID (01/03 - 01/05) Doxycycline 100 mg IV q12h (01/02 - 01/03) FALCON PCR panel all undetectable, duration pending clinical improvement (5-7 day) ARF Nephrology following HD 01/01 - 01/03 GOC pending and will dictate plan to continue HD Please contact pharmacy at [phone] with questions regarding this note. Electronically signed by: Sri Renae, Pharm.D., R.Ph., BCPS 01/07/24 9:29 AM JIG AND FIXTURE REPAIRER AND FIXTURE REPAIRER * Ora Pathak - 01/07/2024 9:12 AM CST Inpatient Occupational Therapy Treatment SUBJECTIVE Patient: Kavon Song Room: [address] [place] [address] Referring/Attending Provider: Chapito Velazquez D.O. Medical Diagnosis: Failure Renal Acute (Acute Kidney Injury) (HCC) [N17.9] Payor: [facility] / Plan: [employer] H[employer] / Product Type: HMO / Onset Date: 01/01/2024 Patient/Caregiver Goals: Decrease pain, Return to home, and Return to prior level of function Past Medical / Surgical History: Patient Active Problem List Diagnosis Failure Renal Acute (Acute Kidney Injury) (HCC) Pneumonia Mass Lung Hyponatremia Hypokalemia History reviewed. No pertinent past medical history. No past surgical history on file. History of Present Illness: Kavon Song is a 83 y.o. male who was admitted to [facility] in [place] on 01/01/2024 due to Failure Renal Acute (Acute Kidney Injury) (HCC) [N17.9] Subjective Comments: Pt seated in chair on approach, agreeable to therapy. Activity Orders: Nursing Activity Orders (From admission, onward) Start Ordered 01/01/242117 Activity/Position: Up Ad July, Up to Chair; Other (comment); Ambulate as much as possible considering previous activity level and physical functioning. Resume activity level following recovery from procedure and/or tests unless otherwise directed.... Until discontinued Question Answer Comment Activity Level: Up Ad July Activity Level: Up to Chair Ambulation Goals: Other (comment) Ambulation goals comment: Ambulate as much as possible considering previous activity level and physical functioning. Resume activity level following recovery from procedure and/or tests unless otherwise directed. Up to chair goals: With meals Restrictions/Precautions: None Brace/Device: None 01/01/242119 Fall risk: Is the patient at risk of falls? Yes Precautions/Restrictions: Fall Precautions Weight Bearing Status: Not applicable Lines/Drains: Chest tube(s) and Telemetry Oxygen Delivery: room air OBJECTIVE Pain Assessment: No pain behavior observed Cognition: Alert Therapeutic Exercise: -Resistive: shoulder flexion, elbow flexion, and elbow extension Patient Disposition: Upon therapist arrival, was seated in chair and call light in reach and at end of session patient was seated in chair and call light in reach. All needs met and questions answered. Patient/caregiver verbalized understanding to contact nursing staff for all needs including transfers and ambulation if appropriate. A gait belt was utilized for safety during session. Contacted patient's nurse regarding patient's status during therapy session Assessment Discharge Recommendations: From an occupational therapy standpoint, patient would benefit from discharging to short term rehabto continue with occupational therapy. Patient may benefit from assistance with toileting, dressing, toilet transfers, shower transfers, medication set up/administration, showering/bathing, transportation, housekeeping, shopping, and mealpreparation upon discharge. Clinical Impression: Mr. Song is a 83 y.o. individual who has been hospitalized 6 day(s) withan admitting diagnosis of: Failure Renal Acute (Acute Kidney Injury) (HCC) [N17.9]. Patient was seen for OT treatment on this date, participating in activities as indicated above. Currently, pt presents with impairments including decreased strength, balance, activity tolerance, and pain resulting in need for assistance to complete his daily activities resulting in the following functional deficits: assistance required to safely complete all ADLs, IADLs, transfers and mobility. Completed BUE exercises with yellow theraband including 8 reps x 2 sets of shoulder flexion, bicep flexion and tricep extension. Practiced sitting unsupported for 30 seconds in chair SBA x 5 reps to improve sitting tolerance with ADLs. Pt required 30 second rest break between sets. Pt demo improved strength with repetition overall. The pt remained vitally stable throughout the session on room air. Discharge recommendations will continue to be updated/assessed with performance during therapy. Functional Goals and Timeframes: OT Goal #1: Pt will complete hygiene/grooming tasks while standing at sink using FWW for balance support with min A OT Goal #1 to be achieved by: 01/09/24 OT Goal #2: Pt will complete toileting tasks, including transfer using FWW with min A OT Goal #2 to be achieved by: 01/09/24 OT Goal #3: Pt will participate in a 10-15 minute functional activity with no more than 2 rest breaks in order to improve tolerance to ADLs and transfers OT Goal #3 to be achieved by: 01/09/24 Plan Patient agrees with the plan of care and goals. OT Frequency: 5 times per week OT Duration: until functional goals are met or patient is discharged from the hospital Plan for next session: Standing endurance/ADLs. Time Spent with Patient Therapeutic Interventions Therapeutic Exercise (min): 27 min Time Tracking Total Timed Units (min): 27 min Total Treatment Time (min): 27 min Cosigned by Moriah Washington OLuis M at 01/07/2024 3:09 PM JIG AND FIXTURE REPAIRER AND FIXTURE REPAIRER AND FIXTURE REPAIRER Associated attestation - Moriah Washington O.T. - 01/07/2024 3:09 PM JIG AND FIXTURE REPAIRER I certify that the above rehabilitation services are required and authorized by me, and that the patient's plan will be reviewed as needed or by end of current plan of care stated. * Fidencio Oliva M.D. - 01/07/2024 7:23 AM CST PULMONARY CONSULT PROGRESS E-NOTE SUBJECTIVE CHIEF COMPLAINT / REASON FOR CONSULT Empyema Right upper lobe masslike opacity, indeterminate EVENTS: Vital signs stable, on room air Four hundred fifty chest tube output in the last 24 hours Low urine output but did not need dialysis yesterday OBJECTIVE VITAL SIGNS Current vitals and trends reviewed. DIAGNOSTICS I have reviewed the patient's current laboratory, imaging, and other diagnostic studies. Clinicallysignificant abnormal findings are as follows (including Labs/Cultures/Images/CV+Pulm tests or relevant procedures): Mild leukocytosis persists Stable hemoglobin Platelet count has normalized Creatinine relatively stable Pleural fluid repeat labs highly purulent, pH less than 6.8, initially with Gram-positive cocci many noted and broad range PCR PCR pending Right pigtail catheter in place, some aeration noted in the right lower lobe, no pneumothorax or subcu air, improvement noted ASSESSMENT / PLAN # Pleural empyema right sided with loculations and fissural involvement with +GPC on analysis, probable delayed presentation status post small bore chest tube 01/04 and intrapleural lytic therapy # RLL mass like opacity, pneumonia favored including aspiration pneumonia, rule out neoplasm # sepsis on presentation with severe acidosis # FRANCISCO on CKD 3b with severe acidosis, requiring urgent HD # failure to thrive with hypokalemia, hyponatremia # HTN RECOMMENDATIONS: -good response radiographically, we will allow completion of the total 6 doses which has been tolerated prior to re-evaluating with potential CT to look for any residual fluid collections. Chest tubeoutput remains quite high. -maintain chest tube to water seal -daily chest x-rays We will follow up tomorrow DNR DNI. This might be quite complex and difficult to evacuate fullly, failure rate maybe high withwhat appears to be a delayed presentation. Surgical options not consistent with goals of care whichis understandable. They are agreeable to proceed day by day and hopefully we can evacuate enough fluid for clinical improvement. It is not clear if he truly has any underlying neoplasm or if this is simply infectious process alone. Total time spent non-F2F time spent 35 minutes on the same day of encounter. AND FIXTURE REPAIRER AND FIXTURE REPAIRER * Jeremías Fernandez M.D. - 01/06/2024 4:13 PM CST Images from the original note were not included. Internal Medicine Progress Note Date of Admission: 01/01/2024 LOS: 5 days REASON FOR ADMISSION: Failure Renal Acute (Acute Kidney Injury) (HCC) SUBJECTIVE This is an 83-year-old white male with medical history significant for chronic kidney disease who presented with complaints of generalized body aches, poor appetite and weakness along with chronic watery diarrhea. Patient seen on bedside team rounds. No new complaints. Interval Updates / 24 Hour Events No major events overnight Intake/Output Summary (Last 24 hours) at 01/06/2024 1613 Last data filed at 01/06/2024 1343 Gross per 24 hour Intake 790 ml Output 385 ml Net 405 ml OBJECTIVE VITAL SIGNS BP 113/67 Pulse 96 Temp 36.5 ??C (Temporal) Resp 23 Ht 170.2 cm Wt 59.1 kg SpO2 96% BMI 20.41 kg/m?? PHYSICAL EXAMINATION General: Elderly white male no acute distress HEENT: Normocephalic, atraumatic. No scleral icterus. Oral mucosa moist. Neck: Supple. No lymphadenopathy. Cardiovascular: Normal S1/S2. No murmurs. Lungs: Coarse breath sounds Abdomen: Soft, nontender, nondistended. Positive bowel sounds. Extremities: No bilateral lower extremity edema. Neurological: Grossly intact. Intake/Output Summary (Last 24 hours) at 01/06/2024 1613 Last data filed at 01/06/2024 1343 Gross per 24 hour Intake 790 ml Output 385 ml Net 405 ml DIAGNOSTICS Results from last 7 days Lab Units 01/06/24 0537 01/05/24 0552 01/04/24 0456 WBC x10(9)/L 14.3* 20.1* 20.6* HEMOGLOBIN g/dL 9.2* 9.8* 8.7* HEMATOCRIT % 28.9* 30.8* 26.1* PLATELETS AUTO x10(9)/L 285 362* 429* Results from last 7 days Lab Units 01/06/24 0537 01/05/24 0552 01/04/24 0456 01/03/24 0642 01/02/24 1132 01/02/24 0341 SODIUM P mmol/L 142 141 141 < > 136 137 POTASSIUM P mmol/L 3.3* 3.7 3.6 < > 3.0* 2.9* CHLORIDE P mmol/L 104 102 104 < > 102 102 BICARBONATE PLASMA mmol/L 25 25 19* < > 11* 12* HCO3 SHERWIN mmol/L -- -- -- -- -- 13 BUN P mg/dL 37* 29* 63* < > 156* 157* CREATININE mg/dL 1.91* 1.66* 2.45* < > 5.07* 5.30* CALCIUM P mg/dL 8.4* 8.8 8.1* < > 7.4* 6.7* MAGNESIUM RL mg/dL 1.5* -- -- -- 1.7 1.3* PHOSPHORUS INORGANIC P mg/dL 2.7 -- -- -- -- 6.3* < > = values in this interval not displayed. Results from last 7 days Lab Units 01/06/24 0537 01/03/24 1051 ALBUMIN P g/dL 2.7* 3.0* Micro: Results for orders placed or performed during the hospital encounter of 01/01/24 (from the past 2 weeks) Gram Stain Specimen: Pleural Fluid, Right Specimen Source Site: Fluid Result Value Gram Stain White blood cells, Many. (A) Gram Stain GRAM POSITIVE COCCI Many. (A) Bacterial Culture, Aerobic + Susceptibility Specimen: Pleural Fluid, Right Specimen Source Site: Fluid Result Value Bacterial Culture, Aerobic + Susc STREPTOCOCCUS ANGINOSUS GROUP 4+ (A) Susceptibility Streptococcus anginosus group - SUSCEPTIBILITY, ROLF (MCG/ML) Penicillin <=0.06 Susceptible mcg/mL Ampicillin <=0.25 Susceptible mcg/mL Cefotaxime 0.25 Susceptible mcg/mL Ceftriaxone 0.25 Susceptible mcg/mL Levofloxacin 0.5 Susceptible mcg/mL Moxifloxacin 0.12 Susceptible mcg/mL Erythromycin <=0.12 Susceptible mcg/mL Clindamycin <=0.25 Susceptible mcg/mL Vancomycin 0.5 Susceptible mcg/mL Tigecycline <=0.06 Susceptible mcg/mL Hepatitis B Surface Antigen Specimen: Blood, Peripheral Draw Result Value HBs Antigen, S Nonreactive HBs Antibody, Serum Specimen: Blood, Peripheral Draw Result Value HBs Antibody, S Negative HBs Antibody, Quantitative, S <3.50 HBc Total Ab, Serum Specimen: Blood, Peripheral Draw Result Value HBc Total Ab, S Negative MRSA PCR, Nasal Specimen: Nares; Swab Result Value MRSA Screen, Nasal by PCR Negative Bacterial Culture, Aerobic + Susceptibility, Respiratory Specimen: Sputum Specimen Source Site: Sputum Result Value Bacterial Culture, Aerobic, Resp No growth after 2 days of incubation. Gram Stain Specimen: Sputum Specimen Source Site: Sputum Result Value Gram Stain White blood cells, Many. (A) Gram Stain GRAM POSITIVE COCCI Many. (A) Pneumonia Panel, PCR Specimen: Sputum Result Value Specimen Source SPUTUM Acinetobacter calcoaceticus-baumannii complex Undetected Enterobacter cloacae complex Undetected Escherichia coli Undetected Haemophilus influenzae Undetected Klebsiella aerogenes Undetected Klebsiella oxytoca Undetected Klebsiella pneumoniae complex Undetected Moraxella catarrhalis Undetected Proteus species Undetected Pseudomonas aeruginosa Undetected Serratia marcescens Undetected Staphylococcus aureus complex Undetected Streptococcus agalactiae Undetected Streptococcus pneumoniae Undetected Streptococcus pyogenes Undetected Chlamydia pneumoniae Undetected Legionella pneumophila Undetected Mycoplasma pneumoniae Undetected Adenovirus Undetected Coronavirus Undetected Human Metapneumovirus Undetected Human Rhinovirus/Enterovirus Undetected Influenza A Undetected Influenza B Undetected Parainfluenza Undetected Respiratory Syncytial Virus Undetected Gram Stain Specimen: Pleural Fluid Specimen Source Site: Fluid Result Value Gram Stain White blood cells, Many. (A) Gram Stain GRAM POSITIVE COCCI Many. (A) Radiology: DX Chest 1 View Final Result Since 01/02/2024, placement of a right pleural pigtail catheter. Slight decrease in size of the small right pleural effusion. Bibasilar consolidation likely represents compressive atelectasis in the setting of effusion. No pneumothorax. The left lung is relatively well aerated. Normal heart size. Aortic calcifications. Right IJ CVC with tip in the mid SVC. IR Chest Tube Placement Final Result 1. Right chest tube placement. Echo Transthoracic (TTE) Final Result Echo performed at the patient's bedside. LEFT [...] velocities. Trivial pulmonary valve regurgitation. Normal tricuspid valve.Trivial tricuspid valve regurgitation. OTHER ECHO FINDINGS:Normal inferior [...] per Echocardiography Contrast Administration Protocol Reference Document [id number] Rev 05/30/2021. Patient met an inclusion criterion and did not have contraindications in screening sections. For the complete report, see the Order-Level Documents. US Thoracentesis Right with Imaging Guidance Final Result Successful ultrasound guided diagnostic and therapeutic right thoracentesis. DX Chest Portable 1 View Final Result Right jugular catheter terminates at the mid SVC. No pneumothorax. US Kidneys Bilateral with Bladder Final Result 1. No hydronephrosis. 2. Bilateral simple appearing renal cysts. DX Chest Portable 1 View Final Result 1. Small right pleural effusion with associated atelectasis. Minimal left basilar atelectasis. DX Chest 1 View (Results Pending) DX Chest 1 View (Results Pending) DX Chest 1 View (Results Pending) DX Chest 1 View (Results Pending) DX Chest 1 View (Results Pending) DX Chest 1 View (Results Pending) DX Panorex Teeth (Results Pending) MEDICATIONS: Scheduled Meds: alteplase 10 mg in NaCl 0.9% intrapleural solution, 10 mg, intrapleural, Q12H LOUANN cefTRIAXone, 2 g, intravenous, Daily dornase ember 5 mg in sterile water intrapleural solution, 5 mg, intrapleural, Q12H LOUANN heparin (porcine), 5,000 Units, subcutaneous, Q8H LOUANN Influenza Trivalent High Dose (PF), 0.5 mL, intramuscular, Once metroNIDAZOLE, 500 mg, oral, TID sodium chloride, 3 mL, intravenous, Q12H LOUANN sodium chloride, 5 mL, miscellaneous, Q12H LOUANN sodium chloride, 5 mL, miscellaneous, Q12H LOUANN Continuous Infusions: PRN Meds: acetaminophen bisacodyL ipratropium-albuteroL melatonin midodrine naloxone oxyCODONE OR oxyCODONE polyethylene glycol prochlorperazine Edisylate sodium chloride sodium chloride sodium chloride ASSESSMENT / PLAN Leukocytosis with neutrophilia Right sided empyema s/p thoracentesis 01/03/2024 and chest tube on 01/05/2024 Dense rounded mass like and spiculated nodular consolidation in the RLL The patient had a thoracentesis on 01/03/2024 and pleural fluid is showing [id number] neutrophils and milky appearance. Pleural fluid Gram stain showing Gram- positive cocci likely an empyema. Will hold off chest tube since it is a small size. Awaiting pleural fluid cultures and chemistry. Peripheral WBC count is improving with current antimicrobial therapy. We will continue current antimicrobial therapy. Patient had chest tube placement on 01/05/24 and had 90 cc of eben pus drained. Pulmonary following. On recommendation of pulmonology, requested ID consult. Initial fluid cultures only showing Gram-positive cocci. Continue with Rocephin and Flagyl. 3-4 weeks of antibiotic therapy estimated. Panorex and Karius test ordered. Chronic Diarrhea Patient reports chronic diarrhea around 1 year duration. Whipple PCR ordered by Infectious Disease.Consider GI consult EGD versus colonoscopy for diagnostic purposes. Anorexia Patient eating very little. Severely malnourished per dietitian. Will discuss with patient about placing NG tube. Acute kidney injury on chronic kidney disease stage 3 Uremia Volume overload Metabolic acidosis Nephrology consulted. Temporary dialysis access obtained and patient given dialysis 01/02/2024-01/04/2024. Nephrology is following. Hypomagnesemia Hypokalemia ANTICOAGULANTS/DVT PROPHYLAXIS: AntiCoag AntiPlatelet Meds IP/OP Heparins Refills Start End heparin (porcine) injection 5,000 Units -- 01/05/2024 -- 5,000 Units, subcutaneous, Every 8 hours scheduled Notes to Pharmacy: Hold heparin for 3 doses Severe Malnutrition (01/02/24) The patient meets the ASPEN Criteria of malnutrition based on: Energy Intake: Less than or equal to 50 % of estimated energy requirement for greater than or equalto 5 days Interpretation of Weight Loss: greater than 7.5% 3 months Body Fat: Moderate Loss Muscle Mass: Moderate Loss Fluid Accumulation: Moderate-Severe This is in the context of Acute Illness or Injury. Malnutrition Present Upon Admission: Yes Agree with Registered Dietitian's assessment and treatment plan: Interventions: Medical food supplement, Increase nutrient intake with small, frequent meals and/or snacks (Physician ordered to send [employer] Ensure protein supplement TID (breakfast, lunch, and dinner). Will send bariatric advantage once to see if pt likes it.) DIET: Current Diet Adult Diet Regular starting at 01/04 1422 INFUSIONS: LDA: Smith Catheter Present?: No. Disposition: Uncertain Anticipated discharge and Disposition: Still has chest tube in place, microbiology tests pending. Do not have estimated discharge date at this time, at least 4-5 days. Total time: 65 minutes. AND FIXTURE REPAIRER * Antonio Dela Cruz PLeander., D.P.T. - 01/06/2024 2:34 PM CST Physical Therapy Inpatient Treatment Note SUBJECTIVE Patient: Kavon Jacobs [place] Room: [address] [place] [address] Referring/Attending Provider: Pokhai, Jeremías, M.D. Medical Diagnosis: 1. Failure Renal Acute (Acute Kidney Injury) (HCC) Payor: [facility] / Plan: [facility] HMO / Product Type: HMO / Subjective Comments: Physical therapy attempted this morning, but patient declined PT secondary to fatigue. This afternoon, this junior technical writer worked with nursing staff transfer the patient from the commodeback into bed. Patient agreeable to today's PT session. Activity Orders: Nursing Activity Orders (From admission, onward) Start Ordered 01/01/242117 Activity/Position: Up Ad July, Up to Chair; Other (comment); Ambulate as much as possible considering previous activity level and physical functioning. Resume activity level following recovery from procedure and/or tests unless otherwise directed.... Until discontinued Question Answer Comment Activity Level: Up Ad July Activity Level: Up to Chair Ambulation Goals: Other (comment) Ambulation goals comment: Ambulate as much as possible considering previous activity level and physical functioning. Resume activity level following recovery from procedure and/or tests unless otherwise directed. Up to chair goals: With meals Restrictions/Precautions: None Brace/Device: None 01/01/242119 Precautions/Restrictions: Fall Precautions Weight Bearing Status: Not applicable Bed Alarm/[place]: No bed alarm or nuria required Invasive Lines/Drains: Chest tube(s) and Telemetry Oxygen Delivery: Room air OBJECTIVE Patient Presents: On commode Pain Assessment: Pain: No pain behaviors noted this PT session. Adverse Response to Treatment: none Vitals monitored throughout session; within normal ranges. Symptoms of pallor, shortness of breath, lightheadedness, and dizziness monitored throughout the session. No symptoms reported by patient or noted by this junior technical writer. Therapeutic Activity: Bed Mobility: Sit to Supine: Minimal Assistance Devices used: Bed rail Cuing provided: Patient educated on how to utilize the logroll technique in order to facilitate increased independence and efficiency with bed mobility. Tactile, verbal, and visual cues utilized for upper and LE management/sequencing. Minimal assistance x1 for LE management back into bed. Transfers: Sit to stand: Minimal Assistance, Stand to sit: Contact Guard Assist Devices used: Front wheeled walker Cuing provided: Verbal and visual cuing for patient to utilize one UE on armrest for force generation and the other UE on the FWW for facilitation of safety/balance. Cues to wait to sit until they feel the bed behind posterior knees and to reach for UE support to control eccentric descent. Gait Assessment: Gait Training: Distance: 2 m pivot transfer from commode to bed Assistance: Contact guard assist Device: Front wheeled walker Quality: Shuffling, decreased gait velocity, but able to demonstrate adequate stability during retro stepping to bed. Cueing: none Stairs: Gait on Stairs : Did not occur Patient Disposition at the end of Treatment: was left in bed at end of session with call light within reach. All needs met and questions answered. Patient/caregiver verbalized understanding to contact nursing staff for all needs including transfers and ambulation if appropriate. Assessment Discharge Recommendations: From a physical therapy standpoint, patient would benefit from discharging to short term rehab to continue with physical therapy. Barriers to Discharge Home: Current functional status, Safety concerns, Fall risk, Inaccessible home environment Level of Care Needed - PT: Assistance with transfers (Comment), Assistance with bed mobility, Assistance with stairs, Physical assistance needed Equipment Recommended - PT: Front-wheeled walker Clinical Impression: Mr. Song is a 83 y.o. male who has been hospitalized 5 day(s) with an admitting diagnosis of: 1. Failure Renal Acute (Acute Kidney Injury) (HCC) Currently, patient presents with limitations including decreased tolerance for activity, generalized weakness, and impaired balance resulting in decreased independence and safety with functional mobility and transfers. Based on today's PT session, recommending patient perform transfers and mobilitywith use of gait belt, FWW, and minimal assistance to CGA x1. Functional progress made this therapy session as patient was able to progress from only performing LE exercises yesterday to performing a stand pivot transfer from the commode back into bed this therapy session. Unfortunately, patient becomes quite fatigued even with this minimal activity and was beginning to fall asleep very quickly after achieving a supine position in bed. When transitioning from sitting edge of bed to supine, this opportunity was taken to educate the patient and family on the logroll transfer in order to increase independence with bed mobility. With this technique, patient only required the faint distal minimal assistance for LE management back intobed. Once in bed, patient able to perform bridging to lift his bottom and reposition himself in bed. Patient and family were then educated on the incentive spirometer in which patient performed 1 set of 3 repetitions with cues for lengthening inspiration length/time. Patient tolerated this well and verbalized understanding and all topics covered during today's session. Skilled physical therapy treatment during this hospitalization is medically necessary in order to provide graded activities to promote patients functional return, safety and quality of life with the established rehabilitation goals. Therapy findings and recommendations were discussed with patient, patient's family, and RN. The treatment plan and discharge recommendations may be modified based upon pt response to treatment. Functional Goals and Timeframes: PT Goal #1: Patient will demonstrate indpendence with functional transfers. PT Goal #1 to be achieved by: 01/09/24 PT Goal #2: Patient will demonstrate indpendence with ambulation of 15m PT Goal #2 to be achieved by: 01/09/24 PT Goal #3: Patient will demonstrate independent with negotiating two steps. PT Goal #3 to be achieved by: 01/09/24 Plan Patient agrees with the plan of care and goals. Continue per plan of care PT Amount: 1 visit per day PT Frequency: 5 times per week PT Duration: until functional goals are met or patient is discharged from the hospital Plan for next session: Continue to progress patient towards safe and independent bed mobility, transfers, and ambulation as medically appropriate. This note was written in part with the assistance of speech to text technology. This note has been reviewed for grammatical, spelling, punctuation, and other errors. Despite best efforts, this document cannot be guaranteed free of all errors. Time Spent with Patient Therapeutic Interventions Therapeutic Activity (min): 11 min Time Tracking Total Timed Units (min): 11 min Total Treatment Time (min): 11 min Antonio Dela Cruz P.T., D.P.T. AND FIXTURE REPAIRER AND FIXTURE REPAIRER * Fidencio Oliva M.D. - 01/06/2024 10:35 AM CST PULMONARY CONSULT PROGRESS NOTE SUBJECTIVE CHIEF COMPLAINT / REASON FOR CONSULT Empyema Right upper lobe masslike opacity, indeterminate EVENTS: Purulent drainage noted overnight 350 cc total output Per family, he is about the same. No new complaints or chest pain or shortness of breath OBJECTIVE VITAL SIGNS Current vitals and trends reviewed. PHYSICAL EXAMINATION Alert, seated in chair without any distress Clear lungs No edema Some serosanguineous drainage noted without air leak DIAGNOSTICS I have reviewed the patient's current laboratory, imaging, and other diagnostic studies. Clinicallysignificant abnormal findings are as follows (including Labs/Cultures/Images/CV+Pulm tests or relevant procedures): Improving white Stable hemoglobin Platelet count has come to Still with left shift Creatinine a bit up 1.9 Pleural fluid repeat labs highly purulent, pH less than 6.8, initially with Gram-positive cocci many noted and broad range PCR PCR pending Right pigtail catheter in place, some aeration noted in the right lower lobe, no pneumothorax or subcu air, improvement noted ASSESSMENT / PLAN # Pleural empyema right sided with loculations and fissural involvement with +GPC on analysis, probable delayed presentation # RLL mass like opacity, pneumonia favored including aspiration pneumonia, rule out neoplasm # sepsis on presentation with severe acidosis # FRANCISCO on CKD 3b with severe acidosis, requiring urgent HD # failure to thrive with hypokalemia, hyponatremia # HTN RECOMMENDATIONS: -fairly decent evacuation over short time frame thus far, continue with tPA Pulmozyme -maintain chest tube to water seal -follow up cultures, antibiotics per team and or ID -daily chest x-rays We will follow DNR DNI. This might be quite complex and difficult to evacuate, failure rate maybe high with what appears to be a delayed presentation. Surgical options not consistent with goals of care which is understandable. They are agreeable to proceed day by day and hopefully we can evacuate enough fluid forclinical improvement. It is not clear if he truly has any underlying neoplasm or if this is simply infectious process alone. Total time spent F2F was 15 minutes, and non-F2F time spent 25 minutes on the same day of encounter. AND FIXTURE REPAIRER * Portia Ramos M.D., Ph.D. - 01/06/2024 10:20 AM CST Hospital Day 5 SUBJECTIVE Interval Events: I saw Mr. Song today. No acute events. OBJECTIVE Admission weight: 63.7 kg Weights for the past 120 hrs (Last 3 readings): Weight 01/04/24 1746 59.1 kg 01/04/24 1428 61.1 kg 01/04/24 0626 64.8 kg I/O 01/03 P.O. 522 400 200 Other 70 Total Intake(mL/kg) 522 (8.8) 400 (6.8) 270 (4.6) Urine (mL/kg/hr) 300 (0.2) 125 (0.2) Stool 0 Chest Tube 148 202 Dialysis 1999 Total Output 2300 148 327 Net -1778 +252 -57 Unmeasured Urine Occurrence 1 x 1 x Unmeasured Stool Occurrence 1 x 1 x VITAL SIGNS Temperature: [36.2 ??C-36.6 ??C] 36.2 ??C Heart Rate: [82-107] 104 Resp Rate: [17-28] 21 Blood Pressure: (96-130)/(55-104) 96/65 SpO2: [80 %-99 %] 98 % Flow Rate (L/min): [0 L/min] 0 L/min Pulse Rate: [46-137] 101 PHYSICAL EXAMINATION General appearance: ill appearing Lungs: normal respiratory effort Extremities: no edema Hemodialysis Catheter Right Internal Jugular Double (Active) Placement Date/Time: 01/02/24 155 Line Type (REQUIRED): Temporary (non- tunneled, non-implanted) Procedural Pause Completed: Yes Optimal Site Selected: Yes Catheter Time Out Checklist Completed: Yes Hand Hygiene Performed Prior to Insertion: Yes... Number of days: 4 DIAGNOSTICS Results from last 7 days Lab Units 01/06/24 0501/05/24 0552 HEMOGLOBIN g/dL 9.2* 9.8* WBC x10(9)/L 14.3* 20.1* PLATELETS AUTO x10(9)/L 285 362* Last 2 results Lab Units 01/06/2453601/05/24 0552 SODIUM P mmol/L 142 141 POTASSIUM P mmol/L 3.3* 3.7 BICARBONATE PLASMA mmol/L 25 25 BUN P mg/dL 37* 29* CREATININE mg/dL 1.91* 1.66* CALCIUM P mg/dL 8.4* 8.8 PHOSPHORUS INORGANIC P mg/dL 2.7 -- MAGNESIUM RL mg/dL 1.5* -- ASSESSMENT / PLAN # acute kidney injury on chronic kidney disease (baseline creatinine 1.9); start dialysis on 01/02/2024 to 01/04/24 # hypokalemia # Hypomagnesemia # metabolic acidosis # chronic diarrhea # anemia # right pleural empyema, s/p thoracentesis on 01/03/24, s/p chest tube placement on 01/05/24 # IgG lambda # hepatomegaly # failure to thrive There's no indication to dialyze him today per his electrolytes and volume status. He is getting potassium and Mg supplements this morning. His albumin is 2.7 and he has hypokalemia and hypomagnesemia. We will recommend dietitian consult to improve his nutrition status. AND FIXTURE REPAIRER * Ora Pathak - 01/06/2024 9:50 AM CST Inpatient Occupational Therapy Treatment SUBJECTIVE Patient: Kavon Song Room: [id number]- Referring/Attending Provider: Jeremías Fernandez M.D. Medical Diagnosis: Failure Renal Acute (Acute Kidney Injury) (HCC) [N17.9] Payor: [facility] / Plan: [employer] HMO / Product Type: HMO / Onset Date: 01/01/2024 Patient/Caregiver Goals: Decrease pain, Return to home, and Return to prior level of function Past Medical / Surgical History: Patient Active Problem List Diagnosis Failure Renal Acute (Acute Kidney Injury) (HCC) Pneumonia Mass Lung Hyponatremia Hypokalemia History reviewed. No pertinent past medical history. No past surgical history on file. History of Present Illness: Kavon Song is a 83 y.o. male who was admitted to [facility] in [place] on 01/01/2024 due to Failure Renal Acute (Acute Kidney Injury) (HCC) [N17.9] Subjective Comments: Pt supine in bed on approach, agreeable to therapy Activity Orders: Nursing Activity Orders (From admission, onward) Start Ordered 01/01/242117 Activity/Position: Up Ad July, Up to Chair; Other (comment); Ambulate as much as possible considering previous activity level and physical functioning. Resume activity level following recovery from procedure and/or tests unless otherwise directed.... Until discontinued Question Answer Comment Activity Level: Up Ad July Activity Level: Up to Chair Ambulation Goals: Other (comment) Ambulation goals comment: Ambulate as much as possible considering previous activity level and physical functioning. Resume activity level following recovery from procedure and/or tests unless otherwise directed. Up to chair goals: With meals Restrictions/Precautions: None Brace/Device: None 01/01/242119 Fall risk: Is the patient at risk of falls? Yes Precautions/Restrictions: Fall Precautions Weight Bearing Status: Not applicable Lines/Drains: Telemetry and Chest tube Oxygen Delivery: room air OBJECTIVE Pain Assessment: No pain behavior observed Cognition: Somnolent but arousable Bed Mobility: Rolling: Contact Guard Assist, Sit to Supine: Moderate Assistance, Scooting: SBA Transfers: -Sit to stand: Minimal assistance -Stand to sit: Minimal assistance -Bed to/from chair: Minimal assistance -Devices used: Front wheeled walker -Cuing: verbal, tactile, and visual Patient Disposition: Upon therapist arrival, was supine in bed and call light in reach and at end of session patient was seated in chair, family/caregiver was present, and call light in reach. All needs metand questions answered. Patient/caregiver verbalized understanding to contact nursing staff for all needs including transfers and ambulation if appropriate. A gait belt was utilized for safety during session. Contacted patient's nurse regarding patient's status during therapy session Assessment Discharge Recommendations: From an occupational therapy standpoint, patient would benefit from discharging to short term rehabto continue with occupational therapy. Patient may benefit from assistance with toileting, dressing, toilet transfers, shower transfers, medication set up/administration, financial aid officer, showering/bathing, transportation, housekeeping, shopping, and meal preparation upon discharge. Clinical Impression: Mr. Song is a 83 y.o. individual who has been hospitalized 5 day(s) withan admitting diagnosis of: Failure Renal Acute (Acute Kidney Injury) (HCC) [N17.9]. Patient was seen for OT treatment on this date, participating in activities as indicated above. Currently, pt presents with impairments including decreased strength, balance, activity tolerance, and pain resulting in need for assistance to complete his daily activities resulting in the following functional deficits: assistance required to safely complete all ADLs, IADLs, transfers and mobility. Pt supine in bed on approach, difficult to arouse and easily agitated. Provided education on the importance of mobilizing and getting OOB to improve lung health. Pt required a significant amount of encouragement to participate in any therapy, after approx 5 mins pt agreeable to therapy. Completed bed mobility CGA for rolling and MOD A for supine to sit with HOB raised. Pt req MAX VC's and visual cues for scooting in bed SBA. SPT from EOB to chair MIN A with FWW. Discharge recommendations will continue to be updated/assessed with performance during therapy. Functional Goals and Timeframes: OT Goal #1: Pt will complete hygiene/grooming tasks while standing at sink using FWW for balance support with min A OT Goal #1 to be achieved by: 01/09/24 OT Goal #2: Pt will complete toileting tasks, including transfer using FWW with min A OT Goal #2 to be achieved by: 01/09/24 OT Goal #3: Pt will participate in a 10-15 minute functional activity with no more than 2 rest breaks in order to improve tolerance to ADLs and transfers OT Goal #3 to be achieved by: 01/09/24 Plan Patient agrees with the plan of care and goals. OT Frequency: OT Duration: until functional goals are met or patient is discharged from the hospital Plan for next session: STS and H/G tasks Time Spent with Patient Therapeutic Interventions Home Management Training (min): 21 min Time Tracking Total Timed Units (min): 21 min Total Treatment Time (min): 21 min Cosigned by Moriah Washington O.Sabas at 01/06/2024 3:56 PM JIG AND FIXTURE REPAIRER AND FIXTURE REPAIRER AND FIXTURE REPAIRER Associated attestation - Moriah Washington O.T. - 01/06/2024 3:56 PM JIG AND FIXTURE REPAIRER I certify that the above rehabilitation services are required and authorized by me, and that the patient's plan will be reviewed as needed or by end of current plan of care stated. * Octavio Morton M.B., Ch.B. - 01/05/2024 3:54 PM CST Internal Medicine Progress Note Date of Admission: 01/01/2024 LOS: 4 days SUBJECTIVE Mr. Song was seen today at the bedside. The patient is more alert today and was able to take part in discussion. He states he feels better. Denies fever or chills. CHIEF COMPLAINT/REASON FOR VISIT Failure to thrive. CURRENT MEDICATIONS Scheduled Medications: cefTRIAXone, 2 g, intravenous, Daily heparin (porcine), 5,000 Units, subcutaneous, Q8H LOUANN Influenza Trivalent High Dose (PF), 0.5 mL, intramuscular, Once metroNIDAZOLE, 500 mg, oral, TID sodium chloride, 3 mL, intravenous, Q12H LOUANN Continuous Infusions: PRN Medications: acetaminophen bisacodyL ipratropium-albuteroL melatonin midodrine naloxone oxyCODONE OR oxyCODONE polyethylene glycol prochlorperazine Edisylate sodium chloride sodium chloride sodium chloride OBJECTIVE VITAL SIGNS BP 123/81 (BP Location: Left arm;Upper) Pulse 91 Temp 36.6 ??C (Temporal) Resp (!) 28 Ht 170.2 cm Wt 59.1 kg SpO2 95% BMI 20.41 kg/m?? PHYSICAL EXAMINATION General: Alert and oriented, no acute distress. HEENT: NCAT. No scleral icterus. Oral mucosa moist. Neck: Supple. No lymphadenopathy. Cardiovascular. Normal S1/S2. No murmurs. Lungs: Clear to auscultation bilaterally. Abdomen: Soft, NT, ND, +BS. Extremities: No BLE edema. Neurological: Grossly intact Intake/Output Summary (Last 24 hours) at 01/05/2024 1554 Last data filed at 01/05/2024 1341 Gross per 24 hour Intake 200 ml Output 2090 ml Net -1890 ml DIAGNOSTICS Labs: Results from last 7 days Lab Units 01/05/24 0552 01/04/24 0456 01/03/24 0642 WBC x10(9)/L 20.1* 20.6* 24.2* HEMOGLOBIN g/dL 9.8* 8.7* 8.7* HEMATOCRIT % 30.8* 26.1* 25.9* PLATELETS AUTO x10(9)/L 362* 429* 419* Results from last 7 days Lab Units 01/05/24 0552 01/04/24 0456 01/03/24 1356 SODIUM P mmol/L 141 141 140 CHLORIDE P mmol/L 102 104 102 BUN P mg/dL 29* 63* 55* CREATININE mg/dL 1.66* 2.45* 2.17* CALCIUM P mg/dL 8.8 8.1* 8.1* Results from last 7 days Lab Units 01/03/24 1051 01/02/24 0410 ALBUMIN P g/dL 3.0* 2.1* Radiology: IR Chest Tube Placement Final Result 1. Right chest tube placement. Echo Transthoracic (TTE) Final Result Echo performed at the patient's bedside. LEFT [...] velocities. Trivial pulmonary valve regurgitation. Normal tricuspid valve.Trivial tricuspid valve regurgitation. OTHER ECHO FINDINGS:Normal inferior [...] per Echocardiography Contrast Administration Protocol Reference Document [id number] Rev 05/30/2021. Patient met an inclusion criterion and did not have contraindications in screening sections. For the complete report, see the Order-Level Documents. US Thoracentesis Right with Imaging Guidance Final Result Successful ultrasound guided diagnostic and therapeutic right thoracentesis. DX Chest Portable 1 View Final Result Right jugular catheter terminates at the mid SVC. No pneumothorax. US Kidneys Bilateral with Bladder Final Result 1. No hydronephrosis. 2. Bilateral simple appearing renal cysts. DX Chest Portable 1 View Final Result 1. Small right pleural effusion with associated atelectasis. Minimal left basilar atelectasis. ASSESSMENT / PLAN Leukocytosis with neutrophilia Right sided empyema s/p thoracentesis 01/03/2024 and chest tube on 01/05/2024 Dense rounded mass like and spiculated nodular consolidation in the RLL The patient had a thoracentesis on 01/03/2024 and pleural fluid is showing [id number] neutrophils and milky appearance . Pleural fluid Gram stain showing Gram-positive cocci likely an empyema. Will holdoff chest tube since it is a small size. Awaiting pleural fluid cultures and chemistry. Peripheral WBC count is improving with current antimicrobial therapy. We will continue current antimicrobial therapy. Patient had chest tube placement on 01/05/24 and had 90 cc of eben pus drained. Pulmonary following. 4. Acute kidney injury. 5 Volume overload. 6 Chronic kidney disease stage 3b 7 Anasarca 8 Metabolic acidosis. 9 Hypokalemia 10 Hypomagnesemia The patient was initiated with hemodialysis on 01/01 for severe FRANCISCO with uremic symptoms and volumeoverload. Continue hemodialysis as per Nephrology. # DVT Prophylaxis: Heparin. # Anticipated discharge and Disposition: Pending clinical improvement. Dirk Ortiz, Ch.B. AND FIXTURE REPAIRER AND FIXTURE REPAIRER * Antonio Dela Cruz PLeander., D.P.T. - 01/05/2024 3:28 PM CST Physical Therapy Inpatient Treatment Note SUBJECTIVE Patient: Kavon Thomasston Room: [address] [place] [address] Referring/Attending Provider: Octavio Morton M.B. Medical Diagnosis: 1. Failure Renal Acute (Acute Kidney Injury) (HCC) Payor: [facility] / Plan: [facility] HMO / Product Type: HMO / Subjective Comments: Patient presents to physical therapy with his spouse and daughter present in the room. Patient is agreeable to today's PT session. Activity Orders: Nursing Activity Orders (From admission, onward) Start Ordered 01/01/242117 Activity/Position: Up Ad July, Up to Chair; Other (comment); Ambulate as much as possible considering previous activity level and physical functioning. Resume activity level following recovery from procedure and/or tests unless otherwise directed.... Until discontinued Question Answer Comment Activity Level: Up Ad July Activity Level: Up to Chair Ambulation Goals: Other (comment) Ambulation goals comment: Ambulate as much as possible considering previous activity level and physical functioning. Resume activity level following recovery from procedure and/or tests unless otherwise directed. Up to chair goals: With meals Restrictions/Precautions: None Brace/Device: None 01/01/242119 Precautions/Restrictions: Fall Precautions Weight Bearing Status: Not applicable Bed Alarm/[place]: No bed alarm or nuria required Invasive Lines/Drains: Central line/PICC and Chest tube(s) Oxygen Delivery: Room air OBJECTIVE Patient Presents: supine in bed Pain Assessment: Pain: Patient reports being comfortable if his feet are not touched as he was ongoing foot pain. Nopain behaviors noted the session. Adverse Response to Treatment: none Symptoms of pallor, shortness of breath, lightheadedness, and dizziness monitored throughout the session. No symptoms reported by patient or noted by this junior technical writer. Therapeutic Exercise: Patient was educated on how to perform the following therapeutic exercises with verbal, tactile, and visual cuing for appropriate ROM and muscle contraction: BLESSING anterior/posterior: Instructed and facilitated LE BLESSING exercises including ankle pumps, quad sets, glute sets, SLR, hip abduction, and hip extension with handout provided. Educated patient on parameters for exercises and use of gait belt as needed for AAROM to achieve full ROM. Paper handout with visualizations of the above therapeutic exercises and instructions on sets/reps was provided. Patient instructed to perform 1 set of 10 repetitions of the above therapeutic exercises 3 times per day. Therapeutic Activity: Bed Mobility: Did not occur Transfers: Did not occur Gait Assessment: Gait Training : Unable to perform/assess Stairs: Gait on Stairs : Did not occur Patient Disposition at the end of Treatment: was left in bed at end of session with call light within reach. All needs met and questions answered. Patient/caregiver verbalized understanding to contact nursing staff for all needs including transfers and ambulation if appropriate. Assessment Discharge Recommendations: From a physical therapy standpoint, patient would benefit from discharging to short term rehab to continue with physical therapy. Barriers to Discharge Home: Current functional status, Safety concerns, Fall risk, Inaccessible home environment Level of Care Needed - PT: Assistance with transfers (Comment), Assistance with bed mobility, Assistance with stairs, Physical assistance needed Equipment Recommended - PT: Front-wheeled walker Clinical Impression: Mr. Song is a 83 y.o. male who has been hospitalized 4 day(s) with an admitting diagnosis of: 1. Failure Renal Acute (Acute Kidney Injury) (HCC) Currently, patient presents with limitations including sore buttocks and ankles/feet limiting patient's tolerance to sitting for long durations, decreased tolerance for activity, generalized weakness, and impaired balance resulting in decreased independence and safety with functional mobility and tr ansfers. Based on today's therapy session, recommending patient perform pivot transfers and mobility with use of gait belt, FWW, and CGA x1. Functional progress limited this therapy session as patient had a procedure today for chest tube placement and patient's feet were exceptionally painful when weight-bearing. However, patient tolerated today's session well demonstrating no pain behaviors, increased work of breathing, or shortness of breath throughout. Patient and spouse educated on the importance of the above therapeutic exercises in order to help reduce the risk of LE DVT, undue atrophy, and other negative sequelae from lack of mobility. Patient performed 1 set of 10 repetitions of each of the above therapeutic exercises. Patient and family instructed on physical therapy's plan for next therapy session in order to progress functional mobility and transfers. Patient and family verbalized understanding and all topics covered during today's session and were agreeable to today's plans. Skilled physical therapy treatment during this hospitalization is medically necessary in order to provide graded activities to promote patients functional return, safety and quality of life with the established rehabilitation goals. Therapy findings and recommendations were discussed with patient, RN, and patient's family. The treatment plan and discharge recommendations may be modified based upon pt response to treatment. Functional Goals and Timeframes: PT Goal #1: Patient will demonstrate indpendence with functional transfers. PT Goal #1 to be achieved by: 01/09/24 PT Goal #2: Patient will demonstrate indpendence with ambulation of 15m PT Goal #2 to be achieved by: 01/09/24 PT Goal #3: Patient will demonstrate independent with negotiating two steps. PT Goal #3 to be achieved by: 01/09/24 Plan Patient agrees with the plan of care and goals. Continue per plan of care PT Amount: 1 visit per day PT Frequency: 5 times per week PT Duration: until functional goals are met or patient is discharged from the hospital Plan for next session: Continue to progress patient towards safe and independent bed mobility, transfers, and ambulation as medically appropriate. This note was written in part with the assistance of speech to text technology. This note has been reviewed for grammatical, spelling, punctuation, and other errors. Despite best efforts, this document cannot be guaranteed free of all errors. Time Spent with Patient Therapeutic Interventions Therapeutic Exercise (min): 16 min Time Tracking Total Timed Units (min): 16 min Total Treatment Time (min): 16 min Antonio Dela Cruz P.T., D.P.T. AND FIXTURE REPAIRER * Fidencio Oliva M.D. - 01/05/2024 2:37 PM CST PULMONARY CONSULT PROGRESS NOTE SUBJECTIVE CHIEF COMPLAINT / REASON FOR CONSULT Empyema Right upper lobe masslike opacity, indeterminate EVENTS: Initially there was some reservations on proceeding with procedure and after clarification with family, he was agreeable and a chest tube was placed with purulent material noted, minimal output Family was at bedside during my examination including and daughter. They shared with me limitations in the aggressiveness of measures which I understand, agreeable to go day-by-day The following portions of the patient's history were reviewed and updated as appropriate: allergies, current medications, family history, medical history, social history, surgical history and problemlist. OBJECTIVE VITAL SIGNS Current vitals and trends reviewed. PHYSICAL EXAMINATION Alert, no distress Thin extremities Cardiac exam is regular in rate without gallops or murmurs. Symmetrical chest expansion Very purulent, thick material in the pigtail catheter without much drainage no leak DIAGNOSTICS I have reviewed the patient's current laboratory, imaging, and other diagnostic studies. Clinicallysignificant abnormal findings are as follows (including Labs/Cultures/Images/CV+Pulm tests or relevant procedures): White count 20, elevated platelets, stable hemoglobin There is a left shift Creatinine 1.66 Pleural fluid repeat labs pending, initially with Gram-positive cocci many noted and broadening PCR Imaging reviewed ASSESSMENT / PLAN # Pleural empyema right sided with loculations and fissural involvement with +GPC on analysis, probable delayed presentation # RLL mass like opacity, pneumonia favored including aspiration pneumonia, rule out neoplasm # sepsis on presentation with severe acidosis # FRANCISCO on CKD 3b with severe acidosis, requiring urgent HD # failure to thrive with hypokalemia, hyponatremia # HTN RECOMMENDATIONS: -we will try to be aggressive, start tPA Pulmozyme today full-dose, it is not clear how much we canevacuate -maintain chest tube to water seal for now -follow up cultures, antibiotics per team and or ID -daily chest x-rays I will order We will follow up. DNR DNI. This might be quite complex and difficult to evacuate, failure rate maybe high with what appears to be a delayed presentation. Surgical options not consistent with goals of care which is understandable. They are agreeable to proceed day by day and hopefully we can evacuate enough fluid for clinical improvement. It is not clear if he truly has any underlying neoplasm orif this is simply infectious process alone. Total time spent F2F was 35 minutes, and non-F2F time spent 25 minutes on the same day of encounter. AND FIXTURE REPAIRER * Ora Pathak - 01/05/2024 1:40 PM CST Inpatient Occupational Therapy Treatment SUBJECTIVE Patient: Kavon Song Room: [facility]* Referring/Attending Provider: Octavio Morton M.B. Medical Diagnosis: Failure Renal Acute (Acute Kidney Injury) (HCC) [N17.9] Payor: ARE / Plan: [employer] H[employer] / Product Type: HMO / Onset Date: 01/01/2024 Patient/Caregiver Goals: Decrease pain, Return to home, and Return to prior level of function Past Medical / Surgical History: Patient Active Problem List Diagnosis Failure Renal Acute (Acute Kidney Injury) (HCC) Pneumonia Mass Lung Hyponatremia Hypokalemia History reviewed. No pertinent past medical history. No past surgical history on file. History of Present Illness: Kavon Song is a 83 y.o. male who was admitted to [facility] in [place] on 01/01/2024 due to Failure Renal Acute (Acute Kidney Injury) (HCC) [N17.9] Subjective Comments: Pt supine in bed on approach, agreeable to therapy. Activity Orders: Nursing Activity Orders (From admission, onward) Start Ordered 01/01/242117 Activity/Position: Up Ad July, Up to Chair; Other (comment); Ambulate as much as possible considering previous activity level and physical functioning. Resume activity level following recovery from procedure and/or tests unless otherwise directed.... Until discontinued Question Answer Comment Activity Level: Up Ad July Activity Level: Up to Chair Ambulation Goals: Other (comment) Ambulation goals comment: Ambulate as much as possible considering previous activity level and physical functioning. Resume activity level following recovery from procedure and/or tests unless otherwise directed. Up to chair goals: With meals Restrictions/Precautions: None Brace/Device: None 01/01/242119 Fall risk: Is the patient at risk of falls? Yes Precautions/Restrictions: Fall Precautions and Modified Contact Isolation Weight Bearing Status: Not applicable Lines/Drains: Telemetry Oxygen Delivery: room air OBJECTIVE Pain Assessment: No pain behavior observed Cognition: Alert Bed Mobility: Rolling: Minimal Assistance, Supine to Sit: Minimal Assistance, Sit to Supine: Minimal Assistance, Scooting: Minimal Assistance Transfers: -Sit to stand: Minimal assistance -Stand to sit: Minimal assistance -Bed to/from chair: Minimal assistance -Toilet: Minimal assistance -Devices used: Front wheeled walker -Cuing: verbal, tactile, and visual ADL: -Toileting: Moderate assistance -Position: sitting on commode Patient Disposition: Upon therapist arrival, was supine in bed, family/caregiver was present, and call light in reach and at end of session patient was seated in chair and call light in reach. All needs metand questions answered. Patient/caregiver verbalized understanding to contact nursing staff for all needs including transfers and ambulation if appropriate. A gait belt was utilized for safety during session. Contacted patient's nurse regarding patient's status during therapy session Assessment Discharge Recommendations: From an occupational therapy standpoint, patient would benefit from discharging to short term rehabto continue with occupational therapy. Patient may benefit from assistance with toileting, dressing, toilet transfers, shower transfers, medication set up/administration, financial aid officer, showering/bathing, transportation, housekeeping, shopping, eating/feeding, and meal preparation upon discharge. Clinical Impression: Mr. Song is a 83 y.o. individual who has been hospitalized 4 day(s) withan admitting diagnosis of: Failure Renal Acute (Acute Kidney Injury) (HCC) [N17.9]. Patient was seen for OT treatment on this date, participating in activities as indicated above. Currently, pt presents with impairments including decreased strength, balance, activity tolerance, and pain resulting in need for assistance to complete his daily activities resulting in the following functional deficits: assistance required to safely complete all ADLs, IADLs, transfers and mobility. Completed bed mobility MIN A with HOB raised. SPT from EOB to bedside commode MIN A with FWW. Toileting tasks MIN A for clothing management and paul hygiene. SPT from bedside commode to chair MIN A with FWW. Pt demo significant fatigue throughout session requiring MAX verbal cues for initiation of tasks. The pt remained vitally stable throughout the session on room air and had 0 LOB episodes while up. Discharge recommendations will continue to be updated/assessed with performance during therapy. Functional Goals and Timeframes: OT Goal #1: Pt will complete hygiene/grooming tasks while standing at sink using FWW for balance support with min A OT Goal #1 to be achieved by: 01/09/24 OT Goal #2: Pt will complete toileting tasks, including transfer using FWW with min A OT Goal #2 to be achieved by: 01/09/24 OT Goal #3: Pt will participate in a 10-15 minute functional activity with no more than 2 rest breaks in order to improve tolerance to ADLs and transfers OT Goal #3 to be achieved by: 01/09/24 Plan Patient agrees with the plan of care and goals. OT Frequency: 5 times per week OT Duration: until functional goals are met or patient is discharged from the hospital Plan for next session: standing endurance and balance Time Spent with Patient Therapeutic Interventions Home Management Training (min): 23 min Time Tracking Total Timed Units (min): 23 min Total Treatment Time (min): 23 min Cosigned by Moriah Washington OLuis M at 01/05/2024 3:42 PM JIG AND FIXTURE REPAIRER AND FIXTURE REPAIRER AND FIXTURE REPAIRER Associated attestation - Moriah Washington O.T. - 01/05/2024 3:42 PM JIG AND FIXTURE REPAIRER I certify that the above rehabilitation services are required and authorized by me, and that the patient's plan will be reviewed as needed or by end of current plan of care stated. * Vidhya Tovar P.A.-C. - 01/05/2024 11:58 AM CST Hospital Day 4 SUBJECTIVE I saw Mr. Song today. He is lying in hospital bed, surrounded by family. He shares with me that dialysis was uncomfortable, predominantly because he could not move around but did not note shortness of breath, cramping, lightheadedness or dizziness. We did discuss the potential need for chronic dialysis moving forward, he and his family kept referring to ???that pill that replaces dialysis?? . I suspect they were talking about SGLT 2 inhibitor therapy and we discussed that given his age and comorbid conditions that as kidney indices stabilized that could be appropriate moving forward. Interval Events: - interval improvement in kidney indices following 3 consecutive days of dialysis - stable metabolic profile - improved hemoglobin OBJECTIVE Admission weight: 63.7 kg Weights for the past 120 hrs (Last 3 readings): Weight 01/04/24 1746 59.1 kg 01/04/24 1428 61.1 kg 01/04/24 0626 64.8 kg I/O 01/02 0000 01/02 P.O. 450 522 0 Intermittent Medications 200 Total Intake(mL/kg) 650 (10.1) 522 (8.8) 0 (0) Urine (mL/kg/hr) 545 (0.4) 300 (0.2) Other 500 Stool 0 0 Dialysis 980 1999 Total Output 2024 2299 Net -1374 -0643 0 Unmeasured Urine Occurrence 1 x Unmeasured Stool Occurrence 1 x 1 x VITAL SIGNS Temperature: [36.1 ??C-36.7 ??C] 36.2 ??C Heart Rate: [85-113] 87 Resp Rate: [10-28] 17 Blood Pressure: (97-124)/(54-75) 121/70 SpO2: [88 %-98 %] 98 % Flow Rate (L/min): [0 L/min] 0 L/min Pulse Rate: [87-116] 87 PHYSICAL EXAMINATION General appearance: alert and interactive, cooperative, fatigued, pale, appears chronically ill, inno acute distress Lungs: normal respiratory effort Extremities: Some edema present Hemodialysis Catheter Right Internal Jugular Double (Active) Placement Date/Time: 01/02/24 1550 Line Type (REQUIRED): Temporary (non- tunneled, non-implanted) Procedural Pause Completed: Yes Optimal Site Selected: Yes Catheter Time Out Checklist Completed: Yes Hand Hygiene Performed Prior to Insertion: Yes... Number of days: 3 DIAGNOSTICS Results from last 7 days Lab Units 01/05/24 0552 01/04/24 0456 HEMOGLOBIN g/dL 9.8* 8.7* WBC x10(9)/L 20.1* 20.6* PLATELETS AUTO x10(9)/L 362* 429* Last 2 results Lab Units 01/05/24 0552 01/04/24 0456 01/03/24 1356 01/03/24 0642 SODIUM P mmol/L 141 141 < > 140 POTASSIUM P mmol/L 3.7 3.6 < > 2.8* BICARBONATE PLASMA mmol/L 25 19* < > 15* BUN P mg/dL 29* 63* < > 112* CREATININE mg/dL 1.66* 2.45* < > 3.76* CALCIUM P mg/dL 8.8 8.1* < > 7.7* CALCIUM ION mg/dL -- -- -- 4.31* < > = values in this interval not displayed. ASSESSMENT / PLAN 1. FRANCISCO-jinny class 3 - intermittent hemodialysis 01/01, 01/02, 01/03 - will hold dialysis today as patient contemplate it is pursuing chronic dialysis versus trying medical therapies 2. CKD G 3B - baseline creatinine 1.9 mg/dL - established with Dr.Suarez Barrientos [facility]phrology 3. Hypokalemia - resolved 4. Metabolic acidosis - corrected with dialysis 5. Chronic diarrhea 6. Chronic anemia - hemoglobin stable 9.8 mg/dL this morning 7. Right pleural effusion - pulmonology consulted 01/04/2024 recommending chest tube 8. IgG lambda 9. Hepatomegaly 10. Failure to thrive New Recommendations: - no dialysis today - re-evaluate tomorrow as patient does glasses desire for medical management versus chronic dialysis currently but wants time to consider - consideration for initiation of SGLT 2 inhibitor therapy as part of goal- directed medical management as kidney indices stabilize - we will need follow-up orders placed to see Dr. Mccall discharge Continued Recommendations: --Daily labs while inpatient -- Obtain daily weights -- Document strict intake and output -- Avoid hypotension, maintain MAP>65 mmHg -- Avoid all nephrotoxins, if possible (contrast dye, unnecessary antibiotics, NSAIDs -- Renally dose all medications for current eGFR -- Recommend administration of antihypertensive medications after dialysis on dialysis days, if felt safe to do so from a cardiac perspective, to minimize intradialytic hypotension and assist in further fluid removal with dialysis -- If blood transfusions are indicated at any time, please note that it is preferable that these are administered during dialysis, if possible, to avoid hyperkalemia and volume overload -- No enoxaparin/Lovenox injection for any purposes for ESRD on dialysis patients --If the patient needs a PICC line for any reasons, please avoid placing PICC lines in the arms to save the veins for potential fistula placement. Please consult interventional radiology to place a small bore IJ PICC (also known as a tunneled power PICC) --Renal replacement therapy is not indicated at this time The plan of care was discussed with the patient, nursing staff, and primary service. Thank you, Nephrology will continue to follow at this time. AND FIXTURE REPAIRER * Sri Renae, D., R.Ph., BCPS - 01/05/2024 11:08 AM CST Pharmacy Abbreviated Progress Note Patient Information Kavon Song is a 83 y.o. male who presents with ARF and PNA Reason for Intervention Antibiotic monitoring Microbiology 01/02: Pleural fluid cultures: pending Pleural fluid gram stain: GPC Sputum cultures: pending Blood cultures x 2: NGTD 01/03: MRSA nares PCR: negative PNA PCR panel: all undetected Gram stain, sputum: GPC Bacterial culture, sputum: pending GI pathogen PCR panel: pending collection Assessment/Plan CAP CXR (01/01) small loculated R sided pleural effusion. Patient is producing thick, yellow phlegm + leukocytosis (WBC 20.6), and remains afebrile. Empiric antibiotics: Ceftriaxone 2 g IV daily (01/02 - ) Metronidazole 500 mg PO TID (01/03 - ) Added as patient has empyema Doxycycline 100 mg IV q12h (01/02 - 01/03) Recommend discontinuing given no atypicals on PNA PCR panel FALCON PCR panel all undetectable, duration pending clinical improvement (5-7 day) ARF Nephrology following HD 01/01 - 01/03 GOC pending and will dictate plan to continue HD Please contact pharmacy at [phone] with questions regarding this note. Electronically signed by: Sri Renae Pharm.D., R.Ph., BCPS 01/05/24 11:08 AM JIG AND FIXTURE REPAIRER AND FIXTURE REPAIRER * Jennifer Owens M.S., O.T. - 01/04/2024 4:00 PM CST 01/04/24 1600 Reason Therapy Missed Reason Therapy Missed Receiving other care OT treatment not completed as pt was receiving dialysis when attempted this afternoon. Will continue to follow. AND FIXTURE REPAIRER * Portia Ramos M.D., Ph.D. - 01/04/2024 2:56 PM CST Hospital Day 3 SUBJECTIVE Interval Events: I saw Mr. Song today. He is receiving dialysis this afternoon. OBJECTIVE Admission weight: 63.7 kg Weights for the past 120 hrs (Last 3 readings): Weight 01/04/24 1428 61.1 kg 01/04/24 0626 64.8 kg 01/03/24 1100 64.5 kg I/O 01/02 0000 01/02 0000 01/03 2359 P.O. 450 322 Intermittent Medications 200 Total Intake(mL/kg) 650 (10.1) 322 (5.3) Urine (mL/kg/hr) 545 (0.4) 300 (0.3) Other 500 Stool 0 Dialysis 980 Total Output 2024 300 Net -1375 +22 Unmeasured Stool Occurrence 1 x VITAL SIGNS Temperature: [36 ??C-36.7 ??C] 36.6 ??C Heart Rate: [94-126] 105 Resp Rate: [10-25] 10 Blood Pressure: (95-118)/(52-73) 109/62 SpO2: [92 %-96 %] 93 % Flow Rate (L/min): [0 L/min] 0 L/min Pulse Rate: [93-109] 104 PHYSICAL EXAMINATION General appearance: ill appearing Lungs: normal respiratory effort Extremities: edema noted Hemodialysis Catheter Right Internal Jugular Double (Active) Placement Date/Time: 01/02/24 1550 Line Type (REQUIRED): Temporary (non- tunneled, non-implanted) Procedural Pause Completed: Yes Optimal Site Selected: Yes Catheter Time Out Checklist Completed: Yes Hand Hygiene Performed Prior to Insertion: Yes... Number of days: 2 DIAGNOSTICS Results from last 7 days Lab Units 01/04/24 0456 01/03/24 0642 HEMOGLOBIN g/dL 8.7* 8.7* WBC x10(9)/L 20.6* 24.2* PLATELETS AUTO x10(9)/L 429* 419* Last 2 results Lab Units 01/04/24 0456 01/03/24 1356 01/03/24 0642 01/02/24 1132 01/02/24 0410 01/02/24 0341 SODIUM P mmol/L 141 140 140 136 -- 137 POTASSIUM P mmol/L 3.6 3.3* 2.8* 3.0* -- 2.9* BICARBONATE PLASMA mmol/L 19* 21* 15* 11* -- 12* HCO3 SHERWIN mmol/L -- -- -- -- -- 13 BUN P mg/dL 63* 55* 112* 156* -- 157* CREATININE mg/dL 2.45* 2.17* 3.76* 5.07* -- 5.30* CALCIUM P mg/dL 8.1* 8.1* 7.7* 7.4* -- 6.7* CALCIUM ION mg/dL -- -- 4.31* -- 4.08* -- PHOSPHORUS INORGANIC P mg/dL -- -- -- -- -- 6.3* MAGNESIUM RL mg/dL -- -- -- 1.7 -- 1.3* ASSESSMENT / PLAN # acute kidney injury on chronic kidney disease (baseline creatinine 1.9); start dialysis on 01/02/2024 # hypokalemia, resolved # metabolic acidosis # chronic diarrhea # anemia # right pleural effusion, s/p thoracentesis on 01/03/24, showing Gram positive cocci and milky appearance and 100 neutrophils # IgG lambda # hepatomegaly # failure to thrive His UA is relatively bland. Renal ultrasound is unremarkable except bilateral simple renal cysts. He is receiving dialysis three days in a row (01/02/24, 01/03/24, 01/04/24). Overall, he is tolerating dialysis fine. His and daughter were encouraged to talk with Kavon about GOC and they willlet us know if he wants to continue dialysis or not which we will respect his decision. I ordered anemia workup. He is not iron deficient. AND FIXTURE REPAIRER * Michelle Saha - 01/04/2024 2:03 PM CST Clinical Note Types: Reassessment NUTRITION ASSESSMENT Pt stated he doesn't want food. Pt's reports his appetite has no improved. Pt's intakes have been 0% for the past two days. Pt's physician ordered vanilla Ensure TID. Pt had a couple sips of thevanilla Ensure but didn't want anymore. Pt didn't want to try any other flavor of the Ensure. Pt wants to try the bariatric advantage because it is less sweet then juice. Percentage of Meals Eaten for the past 72 hrs: Percent Meals Eaten (%) 01/04/24 1403 0 01/04/24 0821 0 01/03/24 1500 0 Severe Malnutrition (01/02/24) The patient does meet the ASPEN Criteria of malnutrition based on: Energy Intake: Less than or equal to 50 % of estimated energy requirement for greater than or equalto 5 days Interpretation of Weight Loss: greater than 7.5% 3 months Body Fat: Moderate Loss Muscle Mass: Moderate Loss Fluid Accumulation: Moderate-Severe This is in the context of Acute Illness or Injury. PERTINENT LABS: Last 3 results Lab Units 01/04/24 0456 01/03/24 1356 01/03/24 0642 01/02/24 1132 01/02/24 0341 SODIUM P mmol/L 141 140 140 136 137 POTASSIUM P mmol/L 3.6 3.3* 2.8* 3.0* 2.9* CHLORIDE P mmol/L 104 102 103 102 102 BUN P mg/dL 63* 55* 112* 156* 157* CREATININE mg/dL 2.45* 2.17* 3.76* 5.07* 5.30* PHOSPHORUS INORGANIC P mg/dL -- -- -- -- 6.3* CALCIUM P mg/dL 8.1* 8.1* 7.7* 7.4* 6.7* MAGNESIUM RL mg/dL -- -- -- 1.7 1.3* ANTHROPOMETRICS Height: 170.2 cm Admission Weight: 63.7 kg Weight: 64.8 kg BMI (Calculated): 22.4 kg/m?? [place] Body Weight (Calculated) : 66.1 kg % [place] Body Weight: 96 % IBW Dietary Orders (From admission, onward) Start Ordered 01/04/24 1248 Oral supplement -Supplement; Ensure (vanilla); 1 each; Take at: Breakfast, Lunch, Dinner (Oral Nutrition Supplement) Until discontinued Question Answer Comment Type: Supplement Supplement: Ensure (vanilla) Size: 1 each Take at: Breakfast Take at: Lunch Take at: Dinner 01/04/24 1248 01/02/24 1320 Adult Diet Regular; 2000 mL Fluid (Adult Diet) Diet effective now Question Answer Comment Diet texture: Regular Fluid total / 24hr: 2000 mL Fluid 01/02/24 1319 NUTRITION DIAGNOSIS: Malnutrition (undernutrition) related to decreased appetite and diarrhea as evidenced by reported weight loss in the past 2 months, decreased appetite, moderate fat and muscle wasting, and noted 3+ edema in bilateral lower extremities. Nutrition Diagnosis Reassessment: Ongoing NUTRITION PLAN AND INTERVENTIONS: Interventions: Medical food supplement, Increase nutrient intake with small, frequent meals and/or snacks (Physician ordered to send vanilla Ensure protein supplement TID (breakfast, lunch, and dinner). Will send bariatric advantage once to see if pt likes it.) MONITORING AND EVALUATION: Nutrition Monitoring/Evaluation Monitoring: Meals/Supplement Intake, Nausea/Vomiting/Diarrhea, Pertinent Labs, Ascites/Edema, Weight Status Cosigned by Damaris Petty RDN, TUTU at 01/04/2024 2:56 PM JIG AND FIXTURE REPAIRER AND FIXTURE REPAIRER AND FIXTURE REPAIRER * Octavio Morton M.B., Ch.B. - 01/04/2024 12:13 PM CST Internal Medicine Progress Note Date of Admission: 01/01/2024 LOS: 3 days SUBJECTIVE Mr. Song was seen today at the bedside. The patient states that he is feeling achiness all over. Denies fever or chills. CHIEF COMPLAINT/REASON FOR VISIT Failure to thrive. CURRENT MEDICATIONS Scheduled Medications: cefTRIAXone, 2 g, intravenous, Daily doxycycline, 100 mg, intravenous, Q12H [place] heparin (porcine), 5,000 Units, subcutaneous, Q8H [facility] Influenza Trivalent High Dose (PF), 0.5 mL, intramuscular, Once sodium chloride, 3 mL, intravenous, Q12H L[place]ANN Continuous Infusions: PRN Medications: acetaminophen bisacodyL ipratropium-albuteroL midodrine naloxone oxyCODONE OR oxyCODONE polyethylene glycol prochlorperazine Edisylate sodium chloride sodium chloride sodium chloride OBJECTIVE VITAL SIGNS BP 107/60 (BP Location: Right arm;Upper, Patient Position: Semi-recumbent) Pulse 108 Temp 36.7 ??C (Temporal) Resp 21 Ht 170.2 cm Wt 64.8 kg SpO2 94% BMI 22.37 kg/m?? PHYSICAL EXAMINATION General: Alert and oriented, no acute distress. HEENT: NCAT. No scleral icterus. Oral mucosa moist. Neck: Supple. No lymphadenopathy. Cardiovascular. Normal S1/S2. No murmurs. Lungs: Clear to auscultation bilaterally. Abdomen: Soft, NT, ND, +BS. Extremities: No BLE edema. Neurological: Grossly intact Intake/Output Summary (Last 24 hours) at 01/04/2024 1213 Last data filed at 01/04/2024 0558 Gross per 24 hour Intake 350 ml Output 1125 ml Net -775 ml DIAGNOSTICS Labs: Results from last 7 days Lab Units 01/04/24 0456 01/03/24 0642 01/02/24 0341 WBC x10(9)/L 20.6* 24.2* 26.6* VBGRS HEMOGLOBIN g/dL -- -- 9.6* HEMOGLOBIN g/dL 8.7* 8.7* 9.3* HEMATOCRIT % 26.1* 25.9* 27.1* PLATELETS AUTO x10(9)/L 429* 419* 480* Results from last 7 days Lab Units 01/04/24 0456 01/03/24 1356 01/03/24 0642 SODIUM P mmol/L 141 140 140 CHLORIDE P mmol/L 104 102 103 BUN P mg/dL 63* 55* 112* CREATININE mg/dL 2.45* 2.17* 3.76* CALCIUM P mg/dL 8.1* 8.1* 7.7* Results from last 7 days Lab Units 01/03/24 1051 01/02/24 0410 ALBUMIN P g/dL 3.0* 2.1* Radiology: Echo Transthoracic (TTE) Final Result Echo performed at the patient's bedside. LEFT [...] velocities. Trivial pulmonary valve regurgitation. Normal tricuspid valve.Trivial tricuspid valve regurgitation. OTHER ECHO FINDINGS:Normal inferior [...] per Echocardiography Contrast Administration Protocol Reference Document [id number] Rev 05/30/2021. Patient met an inclusion criterion and did not have contraindications in screening sections. For the complete report, see the Order-Level Documents. US Thoracentesis Right with Imaging Guidance Final Result Successful ultrasound guided diagnostic and therapeutic right thoracentesis. DX Chest Portable 1 View Final Result Right jugular catheter terminates at the mid SVC. No pneumothorax. US Kidneys Bilateral with Bladder Final Result 1. No hydronephrosis. 2. Bilateral simple appearing renal cysts. DX Chest Portable 1 View Final Result 1. Small right pleural effusion with associated atelectasis. Minimal left basilar atelectasis. ASSESSMENT / PLAN Leukocytosis with neutrophilia Small loculated R sided pleural effusion s/p thoracentesis 01/03/2024. Dense rounded mass like and spiculated nodular consolidation in the RLL The patient had a thoracentesis on 01/03/2024 and pleural fluid is showing [id number] neutrophils and milky appearance . Pleural fluid Gram stain showing Gram-positive cocci likely an empyema. Will holdoff chest tube since it is a small size. Awaiting pleural fluid cultures and chemistry. Peripheral WBC count is improving with current antimicrobial therapy. We will continue current antimicrobial therapy. 4. Acute kidney injury. 5 Volume overload. 6 Chronic kidney disease stage 3b 7 Anasarca 8 Metabolic acidosis. 9 Hypokalemia 10 Hypomagnesemia The patient was initiated with hemodialysis on 01/01 for severe FRANCISCO with uremic symptoms and volumeoverload. Continue hemodialysis as per Nephrology. # DVT Prophylaxis: Heparin. # Anticipated discharge and Disposition: Pending clinical improvement. Dirk Ortiz, B. AND FIXTURE REPAIRER AND FIXTURE REPAIRER AND FIXTURE REPAIRER * Antonio Dela Cruz PLuis M, D.P.T. - 01/04/2024 10:58 AM CST Physical Therapy Inpatient Treatment Note SUBJECTIVE Patient: Kavon Thomasston Room: [address] [place] [address] Referring/Attending Provider: Octavio Morton M.B. Medical Diagnosis: 1. Failure Renal Acute (Acute Kidney Injury) (HCC) Payor: [facility] / Plan: [employer] HMO / Product Type: HMO / Subjective Comments: Patient is agreeable to today's therapy session. Patient reports that he is feeling better this date and expresses having no pain. Activity Orders: Nursing Activity Orders (From admission, onward) Start Ordered 01/01/242117 Activity/Position: Up Ad July, Up to Chair; Other (comment); Ambulate as much as possible considering previous activity level and physical functioning. Resume activity level following recovery from procedure and/or tests unless otherwise directed.... Until discontinued Question Answer Comment Activity Level: Up Ad July Activity Level: Up to Chair Ambulation Goals: Other (comment) Ambulation goals comment: Ambulate as much as possible considering previous activity level and physical functioning. Resume activity level following recovery from procedure and/or tests unless otherwise directed. Up to chair goals: With meals Restrictions/Precautions: None Brace/Device: None 01/01/242119 Precautions/Restrictions: Fall Precautions Weight Bearing Status: Not applicable Bed Alarm/[place]: No bed alarm or nuria required Invasive Lines/Drains: None Oxygen Delivery: Room air OBJECTIVE Patient Presents: supine in bed Pain Assessment: Pain: 0/10 Adverse Response to Treatment: none Vitals monitored throughout session; within normal ranges. Pre mobility: Pulse rate: 110 bpm, Blood pressure: 104/65 mmHg, and O2 sats: 93% Post mobility: Pulse rate: 115 bpm, Blood pressure: 122/66 mmHg, and O2 sats: 93% Symptoms of pallor, shortness of breath, lightheadedness, and dizziness monitored throughout the session. No symptoms reported by patient or noted by this junior technical writer. Therapeutic Activity: Bed Mobility: Supine to Sit: Contact Guard Assist, Sit to Supine: Contact Guard Assist Devices used: Bed rail Cuing provided: None Transfers: Sit to stand: Contact Guard Assist, Stand to sit: Contact Guard Assist Devices used: Front wheeled walker Cuing provided: Verbal and visual cuing for patient to utilize one UE on bed rail/bed for force generation and the other UE on the FWW for facilitation of safety/balance. Cues to wait to sit until they feel the chair behind posterior knees and to reach for UE support to control eccentric descent. Gait Assessment: Gait Training: Distance: 1 m pivot transfer from bed to bedside chair Assistance: Contact guard assist Device: Front wheeled walker Quality: Shuffling, demonstrates adequate stability throughout. Cueing: none Stairs: Gait on Stairs : Did not occur Patient Disposition at the end of Treatment: was left in bedside chair at end of session with call light within reach. All needs met and questions answered. Patient/caregiver verbalized understanding to contact nursing staff for all needs including transfers and ambulation if appropriate. Assessment Discharge Recommendations: From a physical therapy standpoint, patient would benefit from discharging to short term rehab to continue with physical therapy. Barriers to Discharge Home: Current functional status, Safety concerns, Fall risk, Inaccessible home environment Level of Care Needed - PT: Assistance with transfers (Comment), Assistance with bed mobility, Assistance with stairs, Physical assistance needed Equipment Recommended - PT: Front-wheeled walker Clinical Impression: Mr. Song is a 83 y.o. male who has been hospitalized 3 day(s) with an admitting diagnosis of: 1. Failure Renal Acute (Acute Kidney Injury) (HCC) Currently, patient presents with limitations including sore buttocks and ankles limiting patient's tolerance to sitting for long durations, decreased tolerance for activity, generalized weakness, andimpaired balance resulting in decreased independence and safety with functional mobility and transfers. Based on today's therapy session, recommending patient perform pivot transfers and mobility with use of gait belt, FWW, and CGA x1. Patient made significant functional progress this therapy session demonstrating improvements in both bed mobility, transfers, and ambulation/pivot transfers. During today's therapy session, patient required assistance no greater than CGA x1 which is a significant improvement from requiring minimal assistance x2 during last PT session. Unfortunately, this junior technical writer noted some redness on bilateral posterior aspect of heels and patient verbalizes tenderness/pain to bilateral heels and some pain when sitting on his buttocks. This junior technical writer educated the patient on the Prevalon heel offloading boots and this junior technical writer donned boots bilaterally.Nursing staff was notified of patient's buttock pain and noted redness on heels. This junior technical writer also placed a Gel-Foam cushion in the patient's seat to help with buttock pain/pressure. With heels independent position, patient reported that he was comfortable and was able to tolerate sitting. This junior technical writer recommended patient remained sitting upright for 30-60 minutes if tolerated. Patient verbalizes understanding all topics covered during today's session. Patient educated on the importance of frequent activity performed throughout the hospital stay. Patient instructed to transfer to the bedside chair with the assistance of staff 3 times per day. Patient encouraged to utilize the call light whenever they want to transfer to/from the bedside chair with staff and before getting up in order to optimize safety in the hospital setting. The bedside chairgoal was written on the patient's board in order to act as a visual cues/reminder and facilitate goal tracking. Skilled physical therapy treatment during this hospitalization is medically necessary in order to provide graded activities to promote patients functional return, safety and quality of life with the established rehabilitation goals. Therapy findings and recommendations were discussed with patient and RN. The treatment plan and discharge recommendations may be modified based upon pt response to treatment. Functional Goals and Timeframes: PT Goal #1: Patient will demonstrate indpendence with functional transfers. PT Goal #1 to be achieved by: 01/09/24 PT Goal #2: Patient will demonstrate indpendence with ambulation of 15m PT Goal #2 to be achieved by: 01/09/24 PT Goal #3: Patient will demonstrate independent with negotiating two steps. PT Goal #3 to be achieved by: 11/23/24 Plan Patient agrees with the plan of care and goals. Continue per plan of care PT Amount: 1 visit per day PT Frequency: 5 times per week PT Duration: until functional goals are met or patient is discharged from the hospital Plan for next session: Continue to progress patient towards safe and independent bed mobility, transfers, and ambulation as medically appropriate. This note was written in part with the assistance of speech to text technology. This note has been reviewed for grammatical, spelling, punctuation, and other errors. Despite best efforts, this document cannot be guaranteed free of all errors. Time Spent with Patient Therapeutic Interventions Therapeutic Activity (min): 28 min Time Tracking Total Timed Units (min): 28 min Total Treatment Time (min): 28 min Antonio Dela Cruz P.T., D.P.T. AND FIXTURE REPAIRER * Sri Renae Pharm.D., R.Ph., BCPS - 01/04/2024 10:06 AM CST Pharmacy Targeted Intervention Note Patient Information Kavon Song is a 83 y.o. male who presents with ARF and PNA Reason for Intervention Antibiotic monitoring Microbiology 01/02: Pleural fluid cultures: pending Pleural fluid gram stain: GPC Sputum cultures: pending PNA PCR panel: pending Blood cultures x 2: pending GI pathogen PCR panel: pending collection Assessment/Plan CAP CXR (01/01) small loculated R sided pleural effusion. Patient is producing thick, yellow phlegm + leukocytosis (WBC 20.6), and remains afebrile. Empiric antibiotics: Ceftriaxone 2 g IV daily (01/02 - ) Doxycycline 100 mg IV q12h (01/02 - ) Pending microbiology results, duration pending clinical improvement (5-7 day) Please contact pharmacy at [phone] with questions regarding this note. Electronically signed by: Sri Renae PharmJacinta, R.Ph., BCPS 01/04/24 10:06 AM JIG AND FIXTURE REPAIRER AND FIXTURE REPAIRER * iGulia Hughes, R.Ph. - 01/04/2024 9:09 AM CST Images from the original note were not included. Admission Medication History Note Adherence issues: No concerns Medication list source: Patient, Family member, and Pharmacy or dispense records Medication related information: Prior to Admission Medications Med List Status: Pharmacy/RN Complete Set By: Giulia Hughes R.Ph. at 01/04/2024 9:08 AM Taking? Last Dose Informant Start Date End Date LT acetaminophen (TylenoL) 500 mg tablet Past Week -- -- -- Take 1,000 mg by mouth every 6 (six) hours as needed for pain. ascorbic acid, vitamin C, (Vitamin C) 1,000 mg tablet Past Week -- -- -- Take 1,000 mg by mouth daily. atorvastatin (Lipitor) 10 mg tablet Past Week at Bedtime -- 11/02/23 -- Take 10 mg by mouth at bedtime. cholecalciferol, vitamin D3, 25 mcg (1,000 Unit) tablet Past Week -- -- -- Take 25 mcg by mouth daily. diphenoxylate-atropine (LomotiL) 2.5-0.025 mg per tablet at Morning -- 06/01/23 -- Take 1 tablet by mouth 3 (three) times a day as needed for diarrhea. ferrous sulfate 325 mg (65 mg iron) DR tablet Past Week -- 01/28/23 01/28/24 Take 1 tablet (65 mg of iron total) by mouth daily. Patient taking differently: Take 130 mg of iron by mouth daily. furosemide (Lasix) 20 mg tablet 12/31/2023 at Morning -- 09/30/23 -- Take 60 mg by mouth daily. losartan-hydroCHLOROthiazide (Hyzaar) 100-25 mg per tablet 12/31/2023 at Morning -- 12/16/23 -- Take 1 tablet by mouth daily. multivitamin tablet Past Week -- -- -- Take 1 tablet by mouth daily. omega-3 fatty acids-fish oil 300-1,000 mg per capsule Past Week -- -- -- Take 1 g by mouth daily. UNABLE TO FIND Past Week -- -- -- Take 1 each by mouth daily. Med Name: Prostate Complete Zinc, Selenium, [place], Lycopene, Turmeric, Resveratrol, Pomegranate AND FIXTURE REPAIRER * Jet Palomares M.D. - 01/03/2024 11:09 AM CST Hospital Day 2 SUBJECTIVE Interval Events: I saw Mr. Song today. He tolerate first dialysis on 01/01 well. OBJECTIVE Admission weight: 63.7 kg Weights for the past 120 hrs (Last 3 readings): Weight 01/03/24 1100 64.5 kg 01/03/24 0811 64.2 kg 01/03/24 0538 65 kg I/O 12/31 0000 12/31 0000 01/01 0000 01/02 2359 P.O. 200 200 Crystalloid Bolus 500 Colloid Bolus 800 Maintenance IV 58.8 842.5 Intermittent Medications 200 650 100 Total Intake(mL/kg) 258.8 (4.1) 2992.5 (47.2) 300 (4.7) Urine (mL/kg/hr) 300 1475 (1) 220 (0.3) Stool 0 Dialysis 700 Total Output 300 2175 220 Net -41.3 +817.5 +80 Unmeasured Stool Occurrence 1 x VITAL SIGNS Temperature: [36.4 ??C-37.2 ??C] 37.2 ??C Heart Rate: [93-133] 106 Resp Rate: [9-33] 25 Blood Pressure: (65-125)/(45-78) 112/66 SpO2: [85 %-100 %] 94 % Flow Rate (L/min): [2 L/min] 2 L/min Pulse Rate: [93-124] 106 PHYSICAL EXAMINATION General appearance: ill appearing Lungs: normal respiratory effort Extremities: edema noted Hemodialysis Catheter Right Internal Jugular Double (Active) Placement Date/Time: 01/02/24 1550 Line Type (REQUIRED): Temporary (non- tunneled, non-implanted) Procedural Pause Completed: Yes Optimal Site Selected: Yes Catheter Time Out Checklist Completed: Yes Hand Hygiene Performed Prior to Insertion: Yes... Number of days: 1 DIAGNOSTICS Results from last 7 days Lab Units 01/03/24 0642 01/02/24 0341 VBGRS HEMOGLOBIN g/dL -- 9.6* HEMOGLOBIN g/dL 8.7* 9.3* WBC x10(9)/L 24.2* 26.6* PLATELETS AUTO x10(9)/L 419* 480* Last 2 results Lab Units 01/03/24 0642 01/02/24 1132 01/02/24 0410 01/02/24 0341 SODIUM P mmol/L 140 136 -- 137 POTASSIUM P mmol/L 2.8* 3.0* -- 2.9* BICARBONATE PLASMA mmol/L 15* 11* -- 12* HCO3 SHERWIN mmol/L -- -- -- 13 BUN P mg/dL 112* 156* -- 157* CREATININE mg/dL 3.76* 5.07* -- 5.30* CALCIUM P mg/dL 7.7* 7.4* -- 6.7* CALCIUM ION mg/dL 4.31* -- 4.08* -- PHOSPHORUS INORGANIC P mg/dL -- -- -- 6.3* MAGNESIUM RL mg/dL -- 1.7 -- 1.3* ASSESSMENT / PLAN # acute kidney injury on chronic kidney disease (baseline creatinine 1.9); start dialysis on 01/02/2024 # hypokalemia # metabolic acidosis # chronic diarrhea # failure to thrive He is receiving dialysis today for 2.5 hours, blood flow rate 250 l/min, dialysate flow rate 500 ml/min, using dialysate K 4, Ca 3, Sodium 140, and HCO3 35, target fluid removal 1-1.5 L as tolerated. His potassium was 2.8 this morning. He received potassium chloride 40 meq this morning. Suggest to check BMP this afternoon. AND FIXTURE REPAIRER * Gayla Watson L.S.W. - 01/03/2024 11:02 AM CST SUBJECTIVE Patient is a 83 y.o. male who was admitted to [facility] 01/01/2024 due to Failure Renal Acute (Acute Kidney Injury) (HCC) [N17.9]. Social work was consulted to complete discharge planning. OBJECTIVE Patient Active Problem List Diagnosis Failure Renal Acute (Acute Kidney Injury) (HCC) Pneumonia Mass Lung Hyponatremia Hypokalemia ASSESSMENT / PLAN ASSESSMENT Patient was not formally assessed. INTERVENTION Spoke with PT and OT regarding patient need for short term rehab following his hospitalization. Attempted to meet with patient twice to discuss rehab referrals. Patient was working with nursing and the provider during these times. Biomathematician placed a call to patients Viviana to discuss short term rehab referrals. Viviana stated isn't rehab a little bit premature?. Biomathematician educated Viviana on hospital policy and [facility] can [facility] some time. Viviana informed junior technical writer that patient will not be going to any [facility] facilities, nor will he be going to a facility in [place]. Viviana remained hesitant to provide referrals. Viviana reports she would be interested in [facility] in [place]. Viviana requests junior technical writer to meet with her tomorrow, when she will be at the hospital with patient. Biomathematician placed referrals. Destination - Admitted Since 01/01/2024 Service Provider Request Status Services Address Phone Fax Patient Preferred [facility] [place] [facility] Pending - Request Sent -- [phone] [phone] -- [facility] Pending - Request Sent -- [phone] [place] [phone] -- PLAN Social work will assist as needed and requested. Alan Awan 01/03/24 AND FIXTURE REPAIRER * Octavio Morton M.B., Ch.B. - 01/03/2024 10:01 AM CST Internal Medicine Progress Note Date of Admission: 01/01/2024 LOS: 2 days SUBJECTIVE Mr. Song was seen today at the bedside. He states that is feeling the same as yesterday. He has some coughing with yellow sputum production. CHIEF COMPLAINT/REASON FOR VISIT Failure to thrive. CURRENT MEDICATIONS Scheduled Medications: heparin (porcine), 5,000 Units, subcutaneous, Q8H LOUANN Influenza Trivalent High Dose (PF), 0.5 mL, intramuscular, Once potassium chloride, 10 mEq, intravenous, Q1H sodium chloride, 3 mL, intravenous, Q12H LOUANN Continuous Infusions: PRN Medications: acetaminophen bisacodyL ipratropium-albuteroL lidocaine lidocaine midodrine NaCl NaCl naloxone oxyCODONE OR oxyCODONE polyethylene glycol prochlorperazine Edisylate sodium chloride sodium chloride sodium chloride sodium chloride sodium chloride sodium chloride sodium chloride sodium chloride OBJECTIVE VITAL SIGNS BP 105/64 Pulse (!) 113 Temp 37.1 ??C (Temporal) Resp 23 Ht 170.2 cm Wt 64.2 kg SpO2 92% BMI 22.17 kg/m?? PHYSICAL EXAMINATION General: Alert and oriented, no acute distress. HEENT: NCAT. No scleral icterus. Oral mucosa moist. Neck: Supple. No lymphadenopathy. Cardiovascular. Normal S1/S2. No murmurs. Lungs: Clear to auscultation bilaterally. Abdomen: Soft, NT, ND, +BS. Extremities: No BLE edema. Neurological: Grossly intact Intake/Output Summary (Last 24 hours) at 01/03/2024 1001 Last data filed at 01/03/2024 0906 Gross per 24 hour Intake 1416.25 ml Output 1520 ml Net -103.75 ml DIAGNOSTICS Labs: Results from last 7 days Lab Units 01/03/24 0642 01/02/24 0341 WBC x10(9)/L 24.2* 26.6* VBGRS HEMOGLOBIN g/dL -- 9.6* HEMOGLOBIN g/dL 8.7* 9.3* HEMATOCRIT % 25.9* 27.1* PLATELETS AUTO x10(9)/L 419* 480* Results from last 7 days Lab Units 01/03/24 0642 01/02/24 1132 01/02/24 0341 SODIUM P mmol/L 140 136 137 CHLORIDE P mmol/L 103 102 102 BUN P mg/dL 112* 156* 157* CREATININE mg/dL 3.76* 5.07* 5.30* CALCIUM P mg/dL 7.7* 7.4* 6.7* Results from last 7 days Lab Units 01/02/24 0410 ALBUMIN P g/dL 2.1* Radiology: DX Chest Portable 1 View Final Result Right jugular catheter terminates at the mid SVC. No pneumothorax. US Kidneys Bilateral with Bladder Final Result 1. No hydronephrosis. 2. Bilateral simple appearing renal cysts. DX Chest Portable 1 View Final Result 1. Small right pleural effusion with associated atelectasis. Minimal left basilar atelectasis. Echo Transthoracic (TTE) (Results Pending) ASSESSMENT / PLAN Leukocytosis with neutrophilia Small loculated R sided pleural effusion. Dense rounded mass like and spiculated nodular consolidation in the RLL His leukocytosis could be as a result of respiratory infection. He is producing thick yellow phlegm. Will do a diagnostic thoracentesis to see if this a parapneumonic effusion or related to malignancy. Sputum culture and pneumonia PCR. Blood cultures x 2. Reasonable meanwhile to resume antimicrobial therapy ceftriaxone and doxycyline. 4. Acute kidney injury. 5 Volume overload. 6 Chronic kidney disease stage 3b 7 Anasarca 8 Metabolic acidosis. 9 Hypokalemia 10 Hypomagnesemia The patient was initiated with hemodialysis on 01/01 for severe FRANCISCO with uremic symptoms and volumeoverload. # DVT Prophylaxis: Heparin. # Anticipated discharge and Disposition: Pending clinical improvement. Dirk Ortiz, Ch.B. AND FIXTURE REPAIRER AND FIXTURE REPAIRER * Octavio Morton M.B., Ch.B. - 01/02/2024 11:23 AM CST Internal Medicine Progress Note Date of Admission: 01/01/2024 LOS: 1 day SUBJECTIVE Mr. Song was seen today at the bedside. The patient states that he has shortness of breath. He denies any fever or chills. CHIEF COMPLAINT/REASON FOR VISIT Failure to thrive. CURRENT MEDICATIONS Scheduled Medications: heparin (porcine), 5,000 Units, subcutaneous, Q8H LOUANN Influenza Trivalent High Dose (PF), 0.5 mL, intramuscular, Once sodium bicarbonate, 50 mEq, intravenous, Once sodium bicarbonate, 650 mg, oral, BID sodium chloride, 3 mL, intravenous, Q12H LOUANN Continuous Infusions: PRN Medications: acetaminophen bisacodyL ipratropium-albuteroL naloxone oxyCODONE OR oxyCODONE polyethylene glycol prochlorperazine Edisylate sodium chloride sodium chloride OBJECTIVE VITAL SIGNS BP (!) 101/91 Pulse 92 Temp 36.1 ??C (Temporal) Resp 17 Ht 170.2 cm Wt 63.4 kg SpO2 96% BMI 21.89 kg/m?? PHYSICAL EXAMINATION General: Alert and oriented, no acute distress. HEENT: NCAT. No scleral icterus. Oral mucosa moist. Neck: Supple. No lymphadenopathy. Cardiovascular. Normal S1/S2. No murmurs. Lungs: Clear to auscultation bilaterally. Abdomen: Soft, NT, ND, +BS. Extremities: Bilateral lower extremities edema. Neurological: Grossly intact Intake/Output Summary (Last 24 hours) at 01/02/2024 1123 Last data filed at 01/02/2024 1014 Gross per 24 hour Intake 2301.25 ml Output 1175 ml Net 1126.25 ml DIAGNOSTICS Labs: Results from last 7 days Lab Units 01/02/24 0341 WBC x10(9)/L 26.6* VBGRS HEMOGLOBIN g/dL 9.6* HEMOGLOBIN g/dL 9.3* HEMATOCRIT % 27.1* PLATELETS AUTO x10(9)/L 480* Results from last 7 days Lab Units 01/02/24 0341 SODIUM P mmol/L 137 CHLORIDE P mmol/L 102 BUN P mg/dL 157* CREATININE mg/dL 5.30* CALCIUM P mg/dL 6.7* Results from last 7 days Lab Units 01/02/24 0410 ALBUMIN P g/dL 2.1* Radiology: US Kidneys Bilateral with Bladder Final Result 1. No hydronephrosis. 2. Bilateral simple appearing renal cysts. DX Chest Portable 1 View Final Result 1. Small right pleural effusion with associated atelectasis. Minimal left basilar atelectasis. ASSESSMENT / PLAN Acute kidney injury. Volume overload. Chronic kidney disease stage 3b Anasarca Metabolic acidosis. Hypokalemia Hypomagnesemia The patient presents with anasarca and pulmonary edema on chest x-ray. He presented with acute kidney injury with creatinine of 6.3 with baseline of 1.9 I reviewed his imaging which shows pulmonary edema At this point, we will consult Nephrology for evaluation for dialysis. Continue antimicrobial therapy. We will replace electrolytes. # DVT Prophylaxis: Heparin # Anticipated discharge and Disposition: Pending clinical improvement. Continue to monitor in the PCU AND FIXTURE REPAIRER AND FIXTURE REPAIRER * Deanna Lewis APRN, C.N.P., D.N.P., M.S.N. - 01/02/2024 1:06 AM JIG AND FIXTURE REPAIRER OVERNIGHT EVENT Date of Admission: 01/01/2024 Mr. Kavon Song is a 83 y.o. male with history of chronic kidney disease, hypertension and hyperlipidemia. Was paged by nurse regarding patient hypotension. # Hypotension Patient admitted with failure to thrive and FRANCISCO on CKD on maintenance IV fluids. 02/20/2023 echo EF55% global systolic RV function is normal. Given 500 mL bolus for hypotension with improvement. Creatinine 2.21 up from 1.89 was 6.3 on admission. Bladder scanned for 408 mL, straight cath 425. # FRANCISCO and CKD Creatinine 6.3 > 2.21 > 5.30 (BUN 157) Pending nephrology consult. Nephrology consulted for FRANCISCO/possible dialysis # Hypokalemia Hypokalemia 2.9 replete with 40 mEq potassium IV. Potassium was 1.9 from outside facility # Anion gap metabolic acidosis Secondary to volume depletion, diarrhea and GI losses VBG shows compensated metabolic acidosis. Patient on room air. ProBNP elevated 2053 WBC 26.6 up from WBC 22. Platelets 480 (12/17/2022 was 303). GI panel pending. Lactate normal 0.8 Patient on cefepime and azithromycin for pneumonia based on CT from outside facility. (CT chest with pneumonia vs malignancy) vancomycin was discontinued. Calcium repleted via protocol On exam lungs are diminished posteriorly. Lower extremity 2+ pitting to foot and ankles. Chest x-ray small right pleural effusion with associated atelectasis. Minimal left basilar atelectasis. AND FIXTURE REPAIRER AND FIXTURE REPAIRER AND FIXTURE REPAIRER * Clemencia Sim PharmJacinta, R.Ph. - 01/01/2024 11:13 PM CST Vancomycin Vancomycin indication: pneumonia Goal trough: 10-15 mcg/mL Renal replacement therapy: Pending nephrology consult. No results found for: VANCOTROUGH, VANCORANDOM, VANCOPEAK SCr (outside facility): 6.3 mcg/mL (1.9 mcg/mL baseline) MRSA nasal PCR: pending Vancomycin Unstable renal function Current level is not yet assessed Initial dose: 1250 mg Once 12/31 @ 1513 (outside facility) Dose: Intermittent dosing Next level planned: random level 01/01 @ 1300 Nephrology consulted for FRANCISCO/possible dialysis. Electronically signed by: Laura Sim Pharm.D., R.Ph. 01/01/24 11:20 PM JIG AND FIXTURE REPAIRER Addendum: Vanco discontinued Electronically signed by: Jessika Restrepo Pharm.D., R.Ph. 01/02/24 10:27 AM JIG AND FIXTURE REPAIRER AND FIXTURE REPAIRER AND FIXTURE REPAIRER AND FIXTURE REPAIRER documented in this encounter H&P Notes * Fausto Bey M.D. - 01/01/2024 9:21 PM CST Kavon Jacobs [place] [phone] SUBJECTIVE CHIEF COMPLAINT Failure to thrive and general weakness HISTORY OF PRESENT ILLNESS This is a 83yo gentleman with history of chronic kidney disease (baseline Cr 1.9), chronic diarrheapresented with progressive weakness. He arrives to the [facility] ED with a failure to thrive this past week that's been compounded by chronic watery diarrhea (x 1 year), chronic cough (x 6 months), generalized body aches, weakness, poor appetite and now barely able to get out of bed. Workup done at outside hospital, WBC 22 ,Hemoglobin 8.9 ,K 1.9, Na 124, HCO3 13, Cr 6.3 (baseline 1.9). CT chest with pneumonia vs malignancy. Patient was staretd on cefepime/vancomycin/azithromycin ER provider states patient DNR/DNI. Would be ok with short term hemodialysis [facility] does not have nephrology available. Previously seen by [facility] Dr. Floyd Jose in 2023, but [facility] did not have Med/Surg/PCU Bed Capacity at this time. Case was discussed with nephrology in [place], who agreed with transfer to [facility] for further management. PAST MEDICAL HISTORY: Patient Active Problem List Diagnosis Failure Renal Acute (Acute Kidney Injury) (HCC) Pneumonia Mass Lung Hyponatremia Hypokalemia PAST SURGICAL HISTORY: No past surgical history on file. ALLERGIES: No Known Allergies MEDICATIONS: FAMILY HISTORY: Family History No family history on file. SOCIAL HISTORY: Social History Socioeconomic History Marital status: Spouse name: Not on file Number of children: Not on file Years of education: Not on file Highest education level: Not on file Occupational History Not on file Tobacco Use Smoking status: Not on file Smokeless tobacco: Not on file Substance and Sexual Activity Alcohol use: Not on file Drug use: Not on file Sexual activity: Not on file Other Topics Concern Not on file Social History Narrative Not on file Social Drivers of Health Food Insecurity: No Food Insecurity (07/17/2022) [facility] [employer] [facility] Food Insecurity Worried About Running Out of Food in the Last Year: 1 Transportation Needs: No Transportation Needs (07/17/2022) [facility] [facility] Needs Lack of Transportation (Medical): 1 Intimate Partner Violence: Not on file Housing Stability: Low Risk (07/17/2022) [facility] [facility] Housing Stability Unable to Pay for Housing in the Last Year: 1 REVIEW OF SYSTEMS Constitutional: Positive for fatigue and loss of appetite. Respiratory: Positive for coughing up mucus (phlegm). The following systems were negative: Cardiovascular, Gastrointestinal, Genitourinary, Neurological,Psychiatric OBJECTIVE VITAL SIGNS Vitals: 01/01/242109 BP: 114/69 Temp: (!) 35.8 ??C Vitals reviewed. Constitutional Appearance: He is ill-appearing. Cardiovascular Rate and Rhythm: Normal rate and regular rhythm. Pulses: Normal pulses. Heart sounds: Normal heart sounds. Pulmonary Effort: Pulmonary effort is normal. Breath sounds: Normal breath sounds. Abdominal General: Bowel sounds are normal. Palpations: Abdomen is soft. Skin General: Skin is warm. Capillary Refill: Capillary refill takes less than 2 seconds. Neurological Mental Status: He is alert. Mental status is at baseline. DIAGNOSTICS No results found for this or any previous visit. ASSESSMENT / PLAN #1 Failure Renal Acute (Acute Kidney Injury) (HCC) Patient presented to outside hospital ED due to failure to thrive, chronic cough and chronic diarrhea and worsening general weakness. Workup done in ED, showed FRANCISCO on CKD. Cr 6.3 (baseline 1.9). Plan: Nephrology consulted [facility] Avoid nephrotoxic agents Strict I/Os Bladder scan with straigth cath to rule obstructing etiology Urinelytes ordered #2 Pneumonia #3 Mass Lung [facility] shows a pneumonia vs bronchogenic cancer. Patient was started on cefepime/vancomycin/azithromycin Plan: Continue vancomycin/Cefepime and azithromycin Monitor labs Encourage IS use Pulomology consulted for lung mass Patient is NPO MN in case bronch needed for biopsy of lung mass. #4 Hyponatremia 124 at outside hospital workup done. likely hypovolemic hyponatremia in the setting of poor oral intake and GI losses. Plan: Urinelytes ordered Started on IV fluids Monitor BMP Nephrology consulted #5 Hypokalemia K 1.9 at outside hospita workup. likely due to chronic diarrhea and GI losses. Plan: Replacement ordered Electrolyte protcol ordered EKG ordered #6 Metabolic acidosis HCO3 13 on workup done in ED. Likely due to diarrhea or renal failure Plan: Started on sodium bicarb tabs bid Monitor labs and VBG Nephrology consulted DVT prophylaxis: Heparin Code : DNR/DNI Dispo: Pending medical stabiliztion. Fausto Bey M.D. AND FIXTURE REPAIRER documented in this encounter Procedure Notes * Nikki Salinas M.D. - 01/02/2024 3:47 PM CSTAssociated Order(s): Invasive Line Post-Procedure Diagnose(s): Failure Renal Acute (Acute Kidney Injury) (HCC) Invasive Line Performed by: Nikki Salinas M.D. [...] Events: none Patient tolerance of procedure: successful AND FIXTURE REPAIRER documented in this encounter Consult Notes * Sarah Perry M.D. - 01/06/2024 10:42 AM CSTAssociated Order(s): IP CONSULT TO INFECTIOUS DISEASES Images from the original note were not included. Infectious Diseases [place] [facility] CONSULT NOTE SUBJECTIVE CHIEF COMPLAINT/REASON FOR CONSULT We are seeing Mr. Song at the request of Jeremías Fernandez M.D. to give further recommendations for evaluation and management of Right-sided empyema with chest tube, Gram+ cocci, assistance withempiric antibiotic. HISTORY OF PRESENT ILLNESS Kavon Song is a 83-year-old male with past medical history significant for chronic kidney disease, hypertension, hyperlipidemia, choledocholithiasis, and chronic diarrhea (documented since at least August of 2021), presents to the emergency department on 01/01/2024 for the management of generalized weakness and fatigue, associated with persistent diarrhea and chronic cough. In the emergency department, patient was noted to have leukocytosis WBC 22, hemoglobin 8.9, and creatinine of 6.3. CT chest showed findings concerning for pneumonia, right pleural effusion, and associated right lower lobe mass opacity. Patient was admitted to the hospital, he was started on empiric ceftriaxone and doxycycline. On 01/03/2024 patient had diagnostic thoracentesis with was consistent with empyema. Achest tube was placed yesterday 01/05/24, and empiric metronidazole was added to the regimen. Today, infectious Diseases was consulted for antibiotic recommendations. Of note, for his FRANCISCO he was started on dialysis. This morning patient reports feeling well other than persistent loose bowel movements and chills. He endorses persistent cough and pleuritic chest pain with coughing. Otherwise he denies abdominal pain, urinary symptoms. It is at home with , from [place], [place]. No recent travel, obvious sick contacts. 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 The following portions of the patient's history were reviewed: allergies, current medications, family history, medical history, social history, surgical history and problem list REVIEW OF SYSTEMS Constitutional: Positive for fatigue, loss of appetite, night sweats and weight loss of more than 10 pounds. - Negative for fever. Respiratory: Positive for dry cough and shortness of breath. Cardiovascular: Positive for chest pain, pressure or tightness. Gastrointestinal: Positive for diarrhea (Chronic). Neurological: Positive for light-headedness. The following systems were negative: Skin, Eyes, ENT, Genitourinary, Hematologic, Musculoskeletal OBJECTIVE VITAL SIGNS I have reviewed the current vital sign data as applicable. Blood pressure 96/65, pulse 101, temperature 36.2 ??C, temperature source Temporal, resp. rate 21, height 170.2 cm, weight 59.1 kg, SpO2 98%. Body mass index is 20.41 kg/m??. PHYSICAL EXAMINATION Vitals and nursing note reviewed. Constitutional General: He is not in acute distress. Appearance: He is ill-appearing. He is not toxic-appearing. Comments: Up in chair Eyes Conjunctiva/sclera: Conjunctivae normal. Cardiovascular Rate and Rhythm: Tachycardia present. Pulmonary Comments: Coarse breath sounds bilaterally. Chest tube in place Abdominal General: There is no distension. Palpations: Abdomen is soft. Tenderness: There is no abdominal tenderness. Musculoskeletal Right lower leg: No edema. Left lower leg: No edema. Skin Findings: No rash (on exposed areas). Neurological Mental Status: He is alert. Mental status is at baseline. Psychiatric Mood and Affect: Mood normal. DIAGNOSTICS I have reviewed diagnostics. Studies of note include Estimated Creatinine Clearance: 23.6 mL/min (A) (by C-G formula based on SCr of 1.91 mg/dL (H)). WBC 14.3, hemoglobin 9.2, platelets 285 Creatinine 1.81 Micro Microbiology Results (last 10 days) Procedure Component Value - Date/Time Bacterial Culture, Aerobic + Susceptibility [[id number]] Collected: 01/05/24 1250 Lab Status: Preliminary result Specimen: Pleural Fluid Updated: 01/06/24 0615 Bacterial Culture, Aerobic + Susc No growth to date Gram Stain [[id number]] (Abnormal) Collected: 01/05/24 1250 Lab Status: Final result Specimen: Pleural Fluid Updated: 01/05/24 1446 Gram Stain White blood cells, Many. GRAM POSITIVE COCCI Many. Bacterial Culture, Anaerobic + Susceptibility [[id number]] Collected: 01/05/24 1250 Lab Status: In process Specimen: Pleural Fluid Updated: 01/05/24 1348 MRSA PCR, Nasal [[id number]] Collected: 01/04/241944 Lab Status: Final result Specimen: Swab from Nares Updated: 01/04/242123 MRSA Screen, Nasal by PCR Negative Bacterial Culture, Aerobic + Susceptibility, Respiratory [[id number]] Collected: 01/04/241944 Lab Status: Final result Specimen: Sputum Updated: 01/06/24 0819 Bacterial Culture, Aerobic, Resp No growth after 2 days of incubation. Gram Stain [[id number]] (Abnormal) Collected: 01/04/241944 Lab Status: Final result Specimen: Sputum Updated: 01/04/24 2040 Gram Stain White blood cells, Many. GRAM POSITIVE COCCI Many. Pneumonia Panel, PCR [[id number]] Collected: 01/04/241944 Lab Status: Final result Specimen: Sputum Updated: 01/04/24 2243 Specimen Source SPUTUM Acinetobacter calcoaceticus-baumannii complex Undetected copies/mL Enterobacter cloacae complex Undetected copies/mL Escherichia coli Undetected copies/mL Haemophilus influenzae Undetected copies/mL Klebsiella aerogenes Undetected copies/mL Klebsiella oxytoca Undetected copies/mL Klebsiella pneumoniae complex Undetected copies/mL Moraxella catarrhalis Undetected copies/mL Proteus species Undetected copies/mL Pseudomonas aeruginosa Undetected copies/mL Serratia marcescens Undetected copies/mL Staphylococcus aureus complex Undetected copies/mL Streptococcus agalactiae Undetected copies/mL Streptococcus pneumoniae Undetected copies/mL Streptococcus pyogenes Undetected copies/mL Chlamydia pneumoniae Undetected Legionella pneumophila Undetected Mycoplasma pneumoniae Undetected Adenovirus Undetected Coronavirus Undetected Human Metapneumovirus Undetected Human Rhinovirus/Enterovirus Undetected Influenza A Undetected Influenza B Undetected Parainfluenza Undetected Respiratory Syncytial Virus Undetected Comment: ----ADDITIONAL INFORMATION---- This assay is performed using the FDA-cleared ClearRisk Pneumonia Panel (PN) ([employer] Any initial empiric treatment guidance provided in [...] to detect SARS-coronavirus (CoV), MERS-CoV or SARS-CoV-2. Bacteria / Cheri Culture, Blood #1 [[id number]] Collected: 01/03/24 1053 Lab Status: Preliminary result Specimen: Blood, Peripheral Draw Updated: 01/05/24 1105 Bacteria/Cheri Culture, Blood No growth to date. Bacteria / Cheri Culture, Blood #2 [[id number]] Collected: 01/03/24 105 Lab Status: Preliminary result Specimen: Blood, Peripheral Draw Updated: 01/05/24 1105 Bacteria/Cheri Culture, Blood No growth to date. Hepatitis B Surface Antigen [[id number]] Collected: 01/03/24641 Lab Status: Final result Specimen: Blood, Peripheral Draw Updated: 01/03/24 0807 HBs Antigen, S Nonreactive HBs Antibody, Serum [[id number]] Collected: 01/03/24641 Lab Status: Final result Specimen: Blood, Peripheral Draw Updated: 01/03/24 0757 HBs Antibody, S Negative Comment: Patient is presumed NOT to be immune to infection with HBV. Consumption of high-dose biotin supplement within 12 hours of blood collection for this test can cause false-negative results. ----REFERENCE VALUE---- Unvaccinated: Negative Vaccinated: Positive HBs Antibody, Quantitative, S <3.50 mIU/mL Comment: ----REFERENCE VALUE---- <8.50: Negative 8.50-11.49: Indeterminate >=11.50: Positive HBc Total Ab, Serum [[id number]] Collected: 01/03/24641 Lab Status: Final result Specimen: Blood, Peripheral Draw Updated: 01/04/24 1153 HBc Total Ab, S Negative QuantiFERON-Tb Gold Plus, Blood [[id number]] Collected: 01/03/24641 Lab Status: In process Specimen: Blood, Venous Updated: 01/04/24 1057 Narrative: Specimen Information: Specimen ID: [id number] Specimen Type: Blood Specimen Collection Start Date: 01/03/2024 6:42 AM Specimen Received Date: 01/04/2024 10:57 AM Specimen ID: [id number] Specimen Type: Blood Specimen Collection Start Date: 01/03/2024 6:42 AM Specimen Received Date: 01/04/2024 10:57 AM Specimen ID: [id number] Specimen Type: Blood Specimen Collection Start Date: 01/03/2024 6:42 AM Specimen Received Date: 01/04/2024 10:57 AM Specimen ID: [id number] Specimen Type: Blood Specimen Collection Start Date: 01/03/2024 6:42 AM Specimen Received Date: 01/04/2024 10:57 AM Gram Stain [[id number]] (Abnormal) Collected: 01/03/24609 Lab Status: Final result Specimen: Pleural Fluid, Right Updated: 01/03/24 1733 Gram Stain White blood cells, Many. GRAM POSITIVE COCCI Many. Bacterial Culture, Aerobic + Susceptibility [[id number]] Collected: 01/03/24609 Lab Status: Preliminary result Specimen: Pleural Fluid, Right Updated: 01/04/24 1129 Bacterial Culture, Aerobic + Susc No growth to date Bacterial Culture, Anaerobic + Susceptibility [[id number]] Collected: 01/03/24609 Lab Status: Preliminary result Specimen: Pleural Fluid, Right Updated: 01/05/24 1131 Bacterial Culture, Anaerobic No growth to date. Broad Range Bacteria PCR + Sequencing [[id number]] Collected: 01/03/24609 Lab Status: In process Specimen: Pleural Fluid, Right Updated: 01/04/24 1000 M tuberculosis Complex PCR [[id number]] Collected: 01/03/24609 Lab Status: In process Specimen: Pleural Fluid, Right Updated: 01/04/24 1024 Imaging Chest x-ray 01/06/2024 IMPRESSION: Since 01/02/2024, placement of a right pleural pigtail catheter. Slight decrease in size of the small right pleural effusion. Bibasilar consolidation likely represents compressive atelectasis in the setting of effusion. No pneumothorax. The left lung is relatively well aerated. Normal heart size. Aortic calcifications. Right IJ CVC with tip in the mid SVC. Transthoracic echocardiogram 01/04/2024 1. Normal left ventricular chamber size, regional wall motion abnormalities were present (see wall motion graphics), calculated 2-D biplane volumetric ejection fraction of 59%. 2. Normal right ventricular chamber size, mildly reduced systolic function, estimated right ventricular systolic pressure 36 mmHg (right atrial pressure of 10 mmHg). 3. Mildly sclerotic aortic valve. 4. No pericardial effusion. 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 Patient was diagnosed with pneumonia, pleural effusion and concern for right lower lobe masslike consolidation. He had a diagnostic thoracentesis revealing findings consistent with empyema, requiring chest tube placement yesterday 01/05/24. Gram stain shows Gram-positive cocci, however cultures and molecular testing are in process. Fortunately, while on empiric ceftriaxone and Flagyl, patient seems to be clinically improving, he remains hemodynamically stable, afebrile and leukocytosis continues to trend down. Additionally, he continues to have drainage through chest tube. Hence while we wait for evolving micro data, please continue with current antibiotic selection. This is likely a chronic, indolent process and I discussed with the patient and at bedside that I estimate 3-4 weeks antibiotic therapy. Rest per primary and pulmonology team. Of note, in terms of chronic diarrhea, I wonder the benefit of getting GI involved and consider EGDversus colonoscopy versus additional investigation for diagnostic purposes. I am not able to obtainWhipple's PCR from pleural fluid, however I am sending the test from blood and also ordering Kariusform completion. RECOMMENDATIONS: Continue with current antimicrobials Follow evolving micro data including cultures and molecular testing Panorex, Karius, whipplei PCR. ordered Treatment plan reviewed with Mr. Song and his family. They expressed understanding. All questions answered to their satisfaction.. We will follow along closely. Please page the Infectious Disease Consultation Service with questions. Thank you for the consultation. I personally spent a total 80 minutes in chart and tests review, discussions of the case, counseling and coordination of care as documented above.. Sarah Rose M.D. #1 Failure Renal Acute (Acute Kidney Injury) (HCC) #2 Pneumonia #3 Mass Lung #4 Hyponatremia #5 Hypokalemia AND FIXTURE REPAIRER * Carolyn Castro R - 01/05/2024 12:51 PM CSTAssociated Order(s): IP CONSULT TO CARE MANAGEMENT; IP CONSULT TO CARE MANAGEMENT Psychosocial Assessment SUBJECTIVE Assessment Information Referral Source: Provider/Service Referral Reason: Psychosocial assessment Primary Language: Finnish Blog Writer Services Used: No Sexuality/Pronoun: / Person(s) present during interview: patient and spouse, Viviana, and son Everton Disclaimer: They were advised of the various topics that will be assessed during this evaluation. They consented to proceed. The information provided in the assessment is based on review of the medical record as well as the face to face interview. They were advised that the content of this interview will be shared with the health care team and documented in the medical record. They were advised that anyone with access to their patient portal will have access to this information. It was discussed that staff are mandated reporters and they reported understanding. History of Present Illness #1 Failure Renal Acute (Acute Kidney Injury) (HCC) #2 Pneumonia #3 Mass Lung #4 Hyponatremia #5 Hypokalemia Social History Early Growth and Development: The patient met social and developmental milestones as expected. Family of Origin: Patient grew up in [place] and has been to his over 60 years. They have3 children together. Citizenship: [place] Citizen Resident Status: [place] Resident Marital Status: Family / Household: Patient lives with his , Viviana in their private home in [place], [place]. Their son, Everton has been very involved and lives close by in [place]. Their daughter, Giulia lives in [place] and other son lives a couple hours away from patient in [facility]. 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 Psychosocial Risk Factors Impacting the Patient: none Current Stressors Hospitalization Coping Skills/Strengths Support from family, son- Everton Financial/Insurance Primary insurance: [facility] [place] Secondary insurance: N/A Advance Directives Legal Decision Maker: Self Advance Directives: N/A Advance Directives Status: Not Activated Baseline Functional Status Baseline Activities of Daily Living Mobility: Requires aide of device Dressing: Needs assistance Feeding: Independent Bathing: Needs assistance Grooming: Independent Toileting: Independent Behavior: Pleasant, Calm, Cooperative, Oriented Communication: Talks, Understands speaking, Understands Finnish, Deaf/hard of hearing Shopping: Dependent Medication Management: Needs assistance Who is managing your medication at home?: Spouse/Partner Housekeeping: Needs assistance Meal Prep: Needs assistance Assistive Devices: Cane, Walker - four wheeled Transportation: Support from family Managing Finances: Needs assistance Baseline Services/Resources Primary care clinic and provider: ELSEWHERE, PCP Anticipated Needs Functional Status: Mobility, Transfer to/from bed, chair, etc., Toileting, Grooming/hygeine, Dressing, Bathing, Medication set-up/administration, Meal preparation, Housekeeping Assistive Devices: Walker - front wheeled Services/Resources: 24 hour assistance Anticipated Modifications to the Patient's Home: None Transportation Needs: Wheelchair van Anticipated Discharge Destination: Alf Facility OBJECTIVE Substance Abuse Patient report no illicit drug, alcohol, or tobacco use currently or in the past. Mental Health Mental Health History: Patient reports no mental health history Patient reports no current concerns Mental Health Treatment History No history of Psychiatric Treatment noted Suicide Risk and Safety Risk Assessment: C-SSRS Short Version: [place] Suicide Severity Rating Scale (C-SSRS) - Short (Initial Screening) 1. Within the past month, have you wished you were or wished you could go to sleep and not wake up?: No 2. Within the past month, have you actually had any thoughts of killing yourself?: No 6. In your whole life have you ever done anything, started to do anything, or prepared to do anything to end your life?: No Risk Level: Low Risk Homicidal: no Mental Status Orientation: Oriented to person, place and time Level of consciousness: Awake and alert Appearance: Age appearing Behavior observed: Calm and Interactive Memory: Good Estimated intellectual functioning: Average for developmental level Status of concentration: Good Cooperation: Cooperative Mood: Calm and Fine Affect: Within a normal range Speech: Within normal limits for volume, rate and tone. Thought process: Logical and goal-directed Thought content, auditory/visual hallucinations and/or delusions: No abnormality noted Judgement: Good Insight: Intact Motivation for treatment: Adequate ASSESSMENT / PLAN Discussion spout worker met with patient, , and sonEverton to introduce self/role in the care management department. Patient's son, Everton appeared to be very supportive in patient's care and voiced concern of patient's needs at discharge. He discussed patient's identified of wanting patient to return home and take him out of the hospital. Medical team reassured son that patient is his own decision maker and as he is wanting care done in the hospital, he will remain here. He voiced concern of patient going home as patient had not been eating and not doing well. Social work spoke with Viviana and educated her of short term rehab recommendation and inquiredof her thoughts. She asked how long patient may be there and what home health could offer as well. Social work educated her of differences and printed off short term rehab options for her near their home in [place], [place]. Also provided this junior technical writer's contact information. Inquired with of request of options; however, she did not want to give this junior technical writer options at this time. Stated she wanted tolook it over and follow up later. Interventions Psychosocial assessment completed. Provided supportive services. Provided education regarding the role of social work. Provided education regarding referral resources and options. Provided [facility] Discharge Folder. A list of agencies within the area that patient/family geographically resides or requests has been provided to and reviewed with patient/family. Disclosure of [facility] financial interest [facility] was provided to and acknowledged by patient/family. Plan Social work to inquire with Viviana again regarding short term rehab choices. Social work to inquire with patient of short term rehab choices when able. Likely will need wheelchair transportation arranged at discharge-- has ARE insurance. Toma Castro 01/05/2024 AND FIXTURE REPAIRER * Fidencio Oliva M.D. - 01/04/2024 6:34 PM CSTAssociated Order(s): IP CONSULT TO PULMONARY MEDICINE PULMONARY CONSULTATION SUBJECTIVE CONSULTING PHYSICIAN/SERVICE: Octavio Morton M.B. 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 DNR/DNI. 12/31 admitted for FTT, progressive cough, poor appetite, weakness and can't get out of bed. Cr 6.3and very low K, Na, pH 7.13. CT imaging with pneumonia, effusion, and lung mass. Transferred to [facility] HD placed, empiric antibiotics for pneumonia. Underwent diagnostic thora 01/02 with purulent fluid removed consistent with empyema. Pulmonary was consulted for the lung mass. He is doing okay today, I did speak with him regarding possible need for a small bore chest tube, he seems agreeable if absolutely necessary. I did not spend time discussions on the lung mass as it is best deferred with maybe his present and when not acutely ill. Denies hemoptysis Has a cough, can't tell me how lung Feels week for ?months Remote smoking The following portions of the patient's history were reviewed and updated as appropriate: allergies, current medications, family history, medical history, social history, surgical history and problemlist. REVIEW OF SYSTEMS Pertinent items are noted in HPI; all other review of systems was negative. OBJECTIVE VITAL SIGNS Vitals: 01/04/24 1745 01/04/24 1746 01/04/24 1800 01/04/24 1815 BP: 113/69 107/66 BP Location: Patient Position: Pulse: (!) 111 (!) 116 109 Resp: (!) 27 (!) 28 (!) 27 Temp: 36.7 ??C 36.1 ??C TempSrc: Temporal Temporal SpO2: 93% 93% 93% Weight: 59.1 kg Height: PHYSICAL EXAMINATION Alert, thin No edema, cyanosis or clubbing. No rash on extremities. Cardiac exam is regular in rate without gallops or murmurs. Decreased BS b/l Pocus: Increased density noted within the pleural space, not much mobility, consistent with possible empyema, small pocket noted DIAGNOSTICS Wbc elevated Anemia Elev plts Cr 2.4 range Pleural fluid with 'milky' appearance, 100%neut, with GPC many noted on the fluid CT outside reviewed, no prior. On my review loculated R sided effusion, fluid into the fissure, andRLL mass like opacity. No adenopathy, secretions in the airways noted. Limited due to lack of contrast. ASSESSMENT / PLAN # Pleural empyema right sided with loculations and fissural involvement with +GPC on analysis # RLL mass like opacity, pneumonia favored including aspiration pneumonia, rule out neoplasm # sepsis on presentation with severe acidosis # FRANCISCO on CKD 3b on temp HD # failure to thrive with hypokalemia, hyponatremia # HTN RECOMMENDATIONS: - I would not pursue workup for neoplasm at this time. The more urgent concern is the pleural spacefindings. -I discussed findings with team, I do not suspect this is something that can be treated with antibiotics alone. Recommend chest tube placement given persistent POCUS findings, this may be a delayed presentation and evacuation may be difficult. - abx per team, consider ID input and obtain MRSA nasal swab Discussed with team and IR. Plan for tube placement tomorrow. Total time spent F2F was 35 minutes, and non-F2F time spent 40 minutes on the same day of encounter. AND FIXTURE REPAIRER AND FIXTURE REPAIRER * Jet Palomares M.D. - 01/02/2024 4:51 PM CSTAssociated Order(s): Nephrology consult (hospital) Hospital Day 1 Nephrology consult (hospital) Referring Provider: Octavio Morton M.B., Ch.B. Reason for Consult: SUBJECTIVE CHIEF COMPLAINT Acute kidney injury HISTORY OF PRESENT ILLNESS Mr. Song is a 83 y.o. male was admitted in hospital for acute kidney injury. He presented with progressive weakness, poor oral intake and chronic diarrhea. His labs showed acute kidney injury, severe hypokalemia, and metabolic acidosis. His creatinine increased from baseline of 1.9 to 6.3 at ED in [place]. He was transferred to [facility] for further management. At admission, his lab showed BUN 157, creatinine 5.3, sodium 137, potassium 2.9, HCO3 23, calcium 6.7, iCa 4.08, magnesium 1.3, and phosphorus 6.3, albumin 2.1. He is on room air. Chest x-ray showed small right pleural effusion with associated atelectasis. NT proBNP was 2051. He received IV fluid and albumin. UA was not done. US kidney showed no hydronephrosis. He has hypertension, chronic leg swelling on losartan/HCTZ 100/25 mg daily and furosemide 40 mg daily. He denies recent NSAID use before admission. I have reviewed and updated the following: allergies, current medications, prior to admission medications, family history, medical history, social history, surgical history, and problem list REVIEW OF SYSTEMS Pertinent items are noted in HPI; all other review of systems was negative. OBJECTIVE Admission weight: 63.7 kg Weights for the past 120 hrs (Last 3 readings): Weight 01/02/24413 63.4 kg 01/01/242109 63.7 kg I/O last 3 completed shifts: In: 3051.3 Out: 1175 [Urine:1175] VITAL SIGNS Temperature: [35.8 ??C-36.9 ??C] 36.9 ??C Heart Rate: [90-118] 97 Resp Rate: [14-30] 22 Blood Pressure: (65-116)/(46-91) 111/60 SpO2: [89 %-100 %] 97 % Pulse Rate: [82-123] 97 PHGeneral appearance: fatigue, chronically ill, asterixis Lungs: normal respiratory effort Extremities: leg edema noted DIAGNOSTICS Recent Labs 01/02/24 0341 HGB 9.3 L 9.6 L WBC 26.6 H PLT 480 H Recent Labs 01/02/24 1132 01/02/24 0341 NA 136 137 KPLASMA 3.0 L 2.9 L BICARB 11 L 13 12 L BUN 156 H 157 H CREATININE 5.07 H 5.30 H Results from last 7 days Lab Units 01/02/24 1132 01/02/24 0410 01/02/24 0341 CALCIUM P mg/dL 7.4* -- 6.7* ALBUMIN P g/dL -- 2.1* -- PHOSPHORUS INORGANIC P mg/dL -- -- 6.3* No results for input(s): CYSTATINC, EGFRCYSTATNC in the last 2190 hours. ASSESSMENT / PLAN # acute kidney injury on chronic kidney disease (baseline creatinine 1.9) # hypokalemia # metabolic acidosis # chronic diarrhea # failure to thrive He has uremic symptoms. He has metabolic acidosis and hypokalemia. I discussed dialysis initiation to correct uremia and electrolyte disturbance as well as risk of dialysis. Patient and family agreedto proceed with dialysis. We will dialyze him today with low blood and dialysate flow for 1.5 hoursto mitigate dialysis dysequilibrium syndrome. Plan longer dialysis with higher blood and dialysate flow tomorrow. Dialysis Consent I have discussed the reasons for dialysis and the major risks of dialysis with the patient and haveanswered all of the patient's questions. AND FIXTURE REPAIRER * Debora Parr, PElielTEliel, D.P.T. - 01/02/2024 3:21 PM CST Inpatient Physical Therapy Evaluation and Treatment SUBJECTIVE Patient: Kavon Jacobs [place] Room: [address] [place] [address] Referring/Attending Provider: Octavio Morton M.B. Medical Diagnosis: 1. Failure Renal Acute (Acute Kidney Injury) (HCC) Payor: [facility] / Plan: [facility] HMO / Product Type: HMO / Reason for PT Referral: Eval & Treat, Discharge Planning Onset Date: 01/01/2024 Patient/Caregiver Goals: Decrease pain, Return to home, and Return to prior level of function Past Medical / Surgical History: Patient Active Problem List Diagnosis Failure Renal Acute (Acute Kidney Injury) (HCC) Pneumonia Mass Lung Hyponatremia Hypokalemia History reviewed. No pertinent past medical history. No past surgical history on file. Subjective Comments: Patient agreeable to physical therapy. present throughout session. Activity Orders: Nursing Activity Orders (From admission, onward) Start Ordered 01/01/242117 Activity/Position: Up Ad July, Up to Chair; Other (comment); Ambulate as much as possible considering previous activity level and physical functioning. Resume activity level following recovery from procedure and/or tests unless otherwise directed.... Until discontinued Question Answer Comment Activity Level: Up Ad July Activity Level: Up to Chair Ambulation Goals: Other (comment) Ambulation goals comment: Ambulate as much as possible considering previous activity level and physical functioning. Resume activity level following recovery from procedure and/or tests unless otherwise directed. Up to chair goals: With meals Restrictions/Precautions: None Brace/Device: None 01/01/242119 Is patient at risk for falls? yes History of falls? No Precautions/Restrictions: Fall Precautions and Modified Contact Isolation Weight Bearing Status: Not applicable Bed Alarm/[place]: No bed alarm or nuria required Invasive Lines/Drains: Multiple lines/drains Oxygen Delivery: Room air Prior Level of Function: Level of independence: Needs assistance with ADLs, Needs assistance with homemaking, and Needs assistance with functional transfers Lives with: Spouse Receives help from: Family Home Set Up: Type of home: House Home layout: Able to live on main level Home access: 2 stairs to enter with rails Bathroom set up: tub/shower; takes sponge baths Available Equipment: four wheeled walker OBJECTIVE Patient Presents: supine in bed Pain Assessment: Pain: High levels of pain reported/10 Location: bilateral LE's; all over Adverse Response to Treatment: none Vitals monitored throughout session; within normal ranges. Current Level of Function: Cognition: Alert and oriented Screen: ROM: L UE impaired, R UE impaired, L LE impaired, R LE impaired Strength: L UE impaired, R UE impaired, L LE impaired, R LE impaired Balance: Static Sitting: Fair (maintains balance with handheld assist) Dynamic Sitting: Poor (Requires assist to maintain balance) Static Standing: Poor (Requires assist to maintain balance) Dynamic Standing: Poor (Requires assist to maintain balance) Bed Mobility: Supine to Sit: x2, Sit to Supine: x2 Devices used: Bed rail Cuing provided: Verbal and tactile Transfers: Sit to stand: x2, Stand to sit: x2 Devices used: Front wheeled walker Cuing provided: Verbal and tactile Gait Assessment: Gait Training: Distance: 1 m Assistance: x2 Device: Front wheeled walker Quality: Shuffling, Step to, Decreased stance time right, Decreased stance time left Stairs: Gait on Stairs : Did not occur Outcome Measures: AM-PAC AM-PAC Basic Mobility (V.2) How much help from another person do you currently need???If the patient hasn't done an activity recently, how much help from another person do you think he/she would needif he/she tried? 1. Turning from your back to your side while in a flat bed without using bedrails?: A Little 2. Moving from lying on your back to sitting on the side of a flat bed without using bedrails?: A Lot 3. Moving to and from a bed to a chair (including a wheelchair)?: A Lot 4. Standing up from a chair using your arms (e.g., wheelchair, or bedside chair)?: A Lot 5. To walk in hospital room?: Total 6. Climbing 3-5 steps with a railing?: Total AM-[facility] Basic Mobility (V.2) Raw Score: 11 AM-[facility] Basic Mobility (V.2) Standardized Score: 30.25 According to scoring guidelines: Those going to home had an average score of 20.1 Those going home with home care had an average score of 17.9 Those going to SNF had an average score of 14 Those going to IRF had an average score of 13.6 Those going to a LTAC had an average score of 11.5 Interventions provided 01/02/2024: Evaluation completed. Education was provided regarding evaluative findings and potential risks and benefits of rehabilitation interventions. Treatment also consisted of: Discharge planning, therapeutic activity Patient Disposition at the End of Treatment: was left in bed at end of session with call light within reach. All needs met and questions answered. Patient/caregiver verbalized understanding to contact nursing staff for all needs including transfers and ambulation if appropriate. Contacted spout worker, dry cleaning manager, Caregiver, and Occupational therapist regarding discharge/safety recommendations, equipment needs and recommendations, ongoing therapy needs after hospital discharge, patient's status during therapy session, and recommendations for mobility during hospital stay Assessment Discharge Recommendations: From a physical therapy standpoint, patient would benefit from discharging to short term rehab to continue with physical therapy. Barriers to Discharge Home: Current functional status, Safety concerns Level of Care Needed - PT: Assistance with transfers (Comment), Assistance with bed mobility, Assistance with stairs, Physical assistance needed Equipment Recommended - PT: 4-wheeled walker Clinical Impression: Mr. Song is a 83 y.o. male who has been hospitalized 1 day(s) with an admitting diagnosis of: 1. Failure Renal Acute (Acute Kidney Injury) (HCC) Prior to hospitalization patient was completing daily activities with assistance of . He was independent in functional transfers and short distance ambulation with 4WW, although at times, reports she pushes 4WW like a wheelchair for mobility. Reports she assists with all of his ADL's and IADL's. Currently presents with impairments including impaired range of motion, impaired strength, impaired balance, impaired motor function, and pain affecting functional mobility resulting in functional deficits including impaired gait, impaired transfer skills, impaired balance, and impaired activity tolerance. Patient required maximal assist of two for supine to sitting transfer. Initially required assist for sitting at edge of bed, but seated balance improved after sitting at edge of bed for a couple of minutes. Required minimal assist of two for sit to stand and ambulation of one meter. Maximal assist of two for return to supine. Skilled physical therapy treatment during this hospitalization is medically necessary in order to provide graded activities to promote patients functional return, safety and quality of life with the established rehabilitation goals. Kavon Song has Good rehab potential to meet the expected outcomes in a reasonable period of time. Comorbid Conditions: Renal disease, Arthritis Personal Factors: Balance impairment, Sedentary lifestyle, Needs assistive device, Living situation Clinical Presentation: Evolving Examination elements: 3 Clinical Decision Making: Moderate complexity clinical decision making Functional Goals and Timeframes: PT Goal #1: Patient will demonstrate indpendence with functional transfers. PT Goal #1 to be achieved by: 01/09/24 PT Goal #2: Patient will demonstrate indpendence with ambulation of 15m PT Goal #2 to be achieved by: 01/09/24 PT Goal #3: Patient will demonstrate independent with negotiating two steps. PT Goal #3 to be achieved by: 01/09/24 Plan Physical Therapy Attestation Statement: Patient agrees with the plan of care and goals. Plan: Continue with current plan PT Amount: 1 visit per day PT Frequency: 5 times per week PT Duration: Until goals are met or hospital discharge Plan for next session: Progress functional mobility Treatment interventions may include: Treatment/Interventions: Therapeutic exercise, Therapeutic functional activity, Neuromuscular re-education, Therapeutic modalities as needed Time Spent with Patient Evaluations PT Eval - Mod Complexity: 25 min Time Tracking Total Treatment Time (min): 25 min Debora Parr P.T., D.P.T. [facility], [facility], Fourth Floor [address] [address] Dept: [phone] AND FIXTURE REPAIRER * Jennifer Owens M.S., O.T. - 01/02/2024 2:15 PM CST Inpatient Occupational Therapy Evaluation and Treatment SUBJECTIVE Patient: Kavon Song Room: 4737/4737-P Referring/Attending Provider: Octavio Morton M.B. Medical Diagnosis: Failure Renal Acute (Acute Kidney Injury) (HCC) [N17.9] Payor: [facility] / Plan: [facility] FOR [employer] HMO / Product Type: HMO / Reason for OT Referral: Eval & Treat, Discharge Planning Onset Date: 01/01/2024 Patient/Caregiver Goals: Decrease pain, Return to home, and Return to prior level of function Past Medical / Surgical History: Patient Active Problem List Diagnosis Failure Renal Acute (Acute Kidney Injury) (HCC) Pneumonia Mass Lung Hyponatremia Hypokalemia History reviewed. No pertinent past medical history. No past surgical history on file. History of Present Illness: Kavon Song is a 83 y.o. male who was admitted to [facility] in [place] on 01/01/2024 due to Failure Renal Acute (Acute Kidney Injury) (HCC) [N17.9] Subjective Comments: Agreeable to OT evaluation. present and supportive. Presented with physical therapy for cotreatment to safely maximize functional activity and mobility with billable time shared/divided as appropriate given skilled needs of the patient. Activity Orders: Nursing Activity Orders (From admission, onward) Start Ordered 01/01/242117 Activity/Position: Up Ad July, Up to Chair; Other (comment); Ambulate as much as possible considering previous activity level and physical functioning. Resume activity level following recovery from procedure and/or tests unless otherwise directed.... Until discontinued Question Answer Comment Activity Level: Up Ad July Activity Level: Up to Chair Ambulation Goals: Other (comment) Ambulation goals comment: Ambulate as much as possible considering previous activity level and physical functioning. Resume activity level following recovery from procedure and/or tests unless otherwise directed. Up to chair goals: With meals Restrictions/Precautions: None Brace/Device: None 01/01/242119 Is patient at risk for falls? yes Precautions/Restrictions: Fall Precautions and Modified Contact Isolation Weight Bearing Status: Not applicable Bed Alarm/[place]: No bed alarm or nuria required Invasive Lines/Drains: Multiple lines/drains Oxygen Delivery: Room air Prior Level of Function: Level of independence: Needs assistance with ADLs, Needs assistance with homemaking, and Needs assistance with functional transfers Lives with: Spouse Receives help from: Family Home Set Up: Type of home: House Home layout: 2 story house, Able to live on main level Home access: 2 stairs to enter without rails Bathroom set up: tub/shower; only takes sponge baths Available Equipment: four wheeled walker OBJECTIVE Pain Assessment: Pain Rating: Unable to give pain rating Location: BLE Cognition: Alert, Oriented x 3, followed 1-2 step commands Screen: UE ROM: impaired UE Strength: impaired Bed Mobility: -Supine to Sit: Maximal assistance, x2 -Sit to Supine: Maximal assistance, x2 Transfers: -Sit to stand: Minimal assistance, x2 -Devices used: Front wheeled walker -Cuing: verbal for hand placement, posture ADL: -Grooming/hygiene: Total assistance to comb hair while seated EOB Outcome Measures: AM-PAC AM-PAC Activity: How much help from another person does the patient currently need??? Putting on and taking off regular lower body clothing?: Total Putting on and taking off regular upper body clothing?: A Little Taking care of personal grooming such as brushing teeth?: A Little Bathing (including washing, rinsing, drying)?: A lot Toileting, which includes using toilet, bedpan, or urinal?: A lot Eating meals?: A Little Daily Activities Raw Score (max 24): 14 Daily Activities Standardized Score: 33.39 Interpretation: Clinicians answer the AM-PAC Inpatient Short Form based on observed patient activity and/or clinical judgement (ie. patient can be scored without physically performing each activity) According to scoring guidelines: Based on scoring guidelines using the raw score value: -Those going to home had an average score at or above 18 -Those going to facility had an average score at or below 17 Interventions provided 01/02/2024: Evaluation completed. Patient Disposition: Upon therapist arrival, was supine in bed and call light in reach and at end of session patient was supine in bed and call light in reach. All needs met and questions answered. Patient/caregiver verbalized understanding to contact nursing staff for all needs including transfers and ambulation if appropriate. A gait belt was utilized for safety during session. Contacted patient's nurse and oncology social worker regarding discharge/safety recommendations and patient's status during therapy session Assessment Discharge Recommendations: From an occupational therapy standpoint, patient would benefit from discharging to short term rehabto continue with occupational therapy. Patient may benefit from assistance with toileting, dressing, toilet transfers, shower transfers, medication set up/administration, financial aid officer, showering/bathing, transportation, housekeeping, shopping, eating/feeding, and meal preparation upon discharge. Clinical Impression: Mr. Song is a 83 y.o. individual who has been hospitalized 1 day(s) withan admitting diagnosis of: Failure Renal Acute (Acute Kidney Injury) (HCC) [N17.9]. Prior to hospitalization, Kavon Song was living at home with his , who provided assistance for ADLs (including self feeding on occasion) and all IADLs. Pt uses a 4WW within their home. Currently, this patient presents with the following functional limitations: Decreased strength, balance, activity tolerance, and pain resulting in need for assistance to complete his daily activities. Pt demonstrated need for max A of 2 with bed mobility. Initial assist required to maintain balanceat EOB as hair was was provided for him, but was able to progress to supervision. Pt stood from bedusing a FWW and side stepped up with Min A of 2. Pt reported maximal fatigue with this activity andwas returned to supine. Skilled occupational therapy treatment during this hospitalization is medically necessary in order to provide graded activities to promote patients functional return, safety and quality of life with the established rehabilitation goals. Kavon Song has good rehab potential to meet the expected outcomes in a reasonable period of time. Comorbidities: listed in table above Personal Factors: Age, Balance impairment, hearing impairment, and needs assistive device Performance Deficits: 3-5 Occupational Profile and History: expanded Clinical Decision Making: Moderate complexity Barriers to Discharge: current functional status and fall risk Functional Goals and Timeframes: OT Goal #1: Pt will complete hygiene/grooming tasks while standing at sink using FWW for balance support with min A OT Goal #1 to be achieved by: 01/09/24 OT Goal #2: Pt will complete toileting tasks, including transfer using FWW with min A OT Goal #2 to be achieved by: 01/09/24 OT Goal #3: Pt will participate in a 10-15 minute functional activity with no more than 2 rest breaks in order to improve tolerance to ADLs and transfers OT Goal #3 to be achieved by: 01/09/24 Plan Patient agrees with the plan of care and goals. Plan of care initiated OT Frequency: 5 times per week OT Duration: until functional goals are met or patient is discharged from the hospital Interventions Planned: Patient/Caregiver Education, Self-care/Home Management, Therapeutic Functional Activity, Therapeutic Exercise Plan for next session: ADLs/transfer training Time Spent with Patient Evaluations OT Eval - Mod Complexity: 22 min Time Tracking Total Treatment Time (min): 22 min AND FIXTURE REPAIRER * Gabrielle Croft RDN, LD - 01/02/2024 12:16 PM CSTAssociated Order(s): Dietitian Consult (Hospital) Dietitian Consult ([facility]) Referring Provider: Practiceadvisory, Automatedrequest Clinical Note Types: Initial Assessment/Consult NUTRITION VISIT REASON: 11-15 kg weight loss and eating poorly NUTRITION ASSESSMENT Admitting Diagnosis: acute renal failure Past Medical History: chronic kidney disease (baseline Cr 1.9), chronic diarrhea Social History: from home with Food and Nutrition Related History Previous Diet: Regular diet at home. He denies taking any protein supplements at home. Food Allergies: NKFA Food Intolerance: none Oral Intake Prior to Admission: Decrease (Patient reports minimal to no appetite prior to admissionfor the past few months.) Chewing/Swallowing Issues: none noted GI Related Hx: decreased appetite, chronic diarrhea for the past 1-2 years per patient report. Weight Change History: Patient reports a 20 lb weight loss over the past 2 months. Per EMR he has lost 13 lbs (8.6%) in the past year which is not significant, however minimal wieght history available. Patient does have noted 3+ bilateral lower extremity edema which could be masking weight loss. Suspect weight loss is significant in the past 2 months. 69.4 kg 12/17/22 63.4 kg 01/01/24 Skin Integrity: intact Severe Malnutrition (01/02/24) The patient does meet the ASPEN Criteria of malnutrition based on: Energy Intake: Less than or equal to 50 % of estimated energy requirement for greater than or equalto 5 days Interpretation of Weight Loss: greater than 7.5% 3 months Body Fat: Moderate Loss Muscle Mass: Moderate Loss Fluid Accumulation: Moderate-Severe This is in the context of Acute Illness or Injury. PERTINENT LABS: Last 3 results Lab Units 01/02/24 0341 SODIUM P mmol/L 137 POTASSIUM P mmol/L 2.9* CHLORIDE P mmol/L 102 BUN P mg/dL 157* CREATININE mg/dL 5.30* PHOSPHORUS INORGANIC P mg/dL 6.3* CALCIUM P mg/dL 6.7* MAGNESIUM RL mg/dL 1.3* ANTHROPOMETRICS Height: 170.2 cm Admission Weight: 63.7 kg Weight: 63.4 kg BMI (Calculated): 21.9 kg/m?? [place] Body Weight (Calculated) : 66.1 kg % [place] Body Weight: 96 % IBW ESTIMATED NEEDS: Weight Used for Equation Calculations: 63 kg kcal/k-30 Estimated Energy Needs (Low): 1575 kcal/day Estimated Energy Needs (High): 1890 kcal/day Weight Used to Calculate Protein Needs (Kg): 63 kg Method to Estimate Protein Needs (g/kg): 1 - 1.2 Estimated Protein Needs (Low): 63 Estimated Protein Needs (High): 76 Estimated Fluid Needs: 1575 mL/day Dietary Orders (From admission, onward) Start Ordered 01/02/24 0000 No oral or enteral nutrition Diet effective midnight 01/01/242119 NUTRITION DIAGNOSIS: Malnutrition (undernutrition) related to decreased appetite and diarrhea as evidenced by reported weight loss in the past 2 months, decreased appetite, moderate fat and muscle wasting, and noted 3+ edema in bilateral lower extremities. NUTRITION PLAN AND INTERVENTIONS: Interventions: Other (Patient declined snacks or supplements on this time. Will follow for timely diet advancement, po intakes, and ability to provide nutrition interventions.) MONITORING AND EVALUATION: Nutrition Monitoring/Evaluation Monitoring: Meals/Supplement Intake, Weight Status, Pertinent Labs, Nausea/Vomiting/Diarrhea AND FIXTURE REPAIRER documented in this encounter Nursing Notes * Ricky Brown R.N. - 01/07/2024 6:20 AM CST INPATIENT SHIFT SUMMARY SHIFT EVENTS: No acute events this shift. Patient slept well through the night. ORIENTATION: A&Ox3 SAFETY MEASURES: Bed Alarm and pt call light appropriate ASSISTED MOBILITY: x1, Gait belt, Pivot, and Walker VITALS: Vitals assessed and stable this shift INTAKE: Pt has poor appetite and is eating very little OUTPUT: Patient has low urine output. PAIN: Patient has not had any complaints of pain this shift. PRN MEDICATIONS UTILIZED THIS SHIFT: None DVT PROPHYLAXIS: Subq Heparin CHG/SMITH CARE NEEDS: CHG Bath UPCOMING PLAN OF CARE: Possible NG placement during day Problem: PAIN - ADULT Goal: PT VERBALIZES/DEMONSTRATES ADEQUATE COMFORT LEVEL OR BASELINE Outcome: Progressing Note: Pt had no complaints of pain overnight Problem: SAFETY ADULT Goal: Maintain a safe environment Outcome: Progressing Note: Bed alarm utilized, pt call light appropriate Problem: RESPIRATORY - ADULT Goal: Achieves optimal ventilation and oxygenation Outcome: Progressing Note: Continues to have good output from chest tube. Output: 140 ml AND FIXTURE REPAIRER * Wendi Pacheco R.N. - 01/06/2024 4:13 PM CST Shift Goals: Monitor chest tube output, increase oral intake Identify possible barriers to meeting goals/advancing plan of care: acuity of illness End of Shift Summary: Pt remained hemodynamically stable throughout the day. Sat up in the chair for some of the day and worked with PT/OT. Ate very minimally- will reassess tomorrow for possible NG tube for tube feedings. Generalized pain was controlled with Tylenol and Oxy. Total chest tube output was 310 mL. AND FIXTURE REPAIRER * Melody Mullins R.N., CCRN - 01/06/2024 12:38 PM CST Rapid Response Follow Up Attending Provider: Jeremías Fernandez M.D. Admission Date: 01/01/2024 Current Vitals: Vitals: 01/06/24 0955 BP: Pulse: Resp: Temp: SpO2: 98% Rapid RN following for: TPA/dornase flushes Assessment: Patient resting in bed on assessment, reports no pain or shortness of breath. Lungs diminished throughout. Serous/yellow/cloudy output in chest tube cannister, no crepitus or air leak noted at site. TPA/dornase flushed without complication. Interventions: Assessment, flush Recommendations for primary RN: Monitor chest tube output, have emergency equipment at bedside Rapid RN will continue to monitor for: TPA/dornase flushes Patient Disposition: remains the same Rapid RN following prior to transfer to higher level of care, if applicable: Offered debrief to primary nurse: Encouraged primary RN to call SOFTWARE PRODUCT SPECIALIST with questions, concerns, or if patient condition changes. AND FIXTURE REPAIRER * Ricky Brown R.N. - 01/06/2024 6:29 AM CST INPATIENT SHIFT SUMMARY SHIFT EVENTS: No acute events this shift. Patient slept well through the night. Chest tube is in place with good output. Pt seemed to be in a better mood tonight than last night. Leg and feet pain improved with warm blankets. ORIENTATION: A&Ox3 SAFETY MEASURES: Bed Alarm and VCM ASSISTED MOBILITY: x1, Gait belt, and Pivot VITALS: Vitals assessed and stable this shift INTAKE: Adequate for solids and Adequate for liquids OUTPUT: Patient has low urine output. PAIN: Patient has not had any complaints of pain this shift. PRN MEDICATIONS UTILIZED THIS SHIFT: None DVT PROPHYLAXIS: Subq Heparin CHG/SMITH CARE NEEDS: CHG Bath UPCOMING PLAN OF CARE: Monitor chest tube output, VSS, remain safe Problem: PAIN - ADULT Goal: PT VERBALIZES/DEMONSTRATES ADEQUATE COMFORT LEVEL OR BASELINE Outcome: Progressing Note: Pt had little to no complaints of pain overnight, seems in much better spirits tonight Problem: INFECTION - ADULT Goal: Absence of infection during hospitalization Outcome: Progressing Note: Oral flagyl started and given Problem: SAFETY ADULT Goal: Maintain a safe environment Outcome: Progressing Note: Pt call light appropriate Problem: RESPIRATORY - ADULT Goal: Achieves optimal ventilation and oxygenation Outcome: Progressing Note: Chest tube in place, OUTPUT: 202 AND FIXTURE REPAIRER * Kassandra Hennessy R.N. - 01/05/2024 11:07 PM CST Rapid Response Follow Up Attending Provider: Octavio Morton M.B.* Admission Date: 01/01/2024 Current Vitals: Vitals: 01/05/24 2219 BP: 107/62 Pulse: 101 Resp: 21 Temp: 36.5 ??C SpO2: 94% Rapid RN following for: Chest tube medication flushes Assessment: Chest tube drainage purulent to serous. Lungs diminished. No airleak.VSS. Interventions: None Recommendations for primary RN: Continue to monitor respiratory status, chest tube. Rapid RN will continue to monitor for: Chest tube medication flushes Patient Disposition: remains the same Encouraged primary RN to call SOFTWARE PRODUCT SPECIALIST with questions, concerns, or if patient condition changes. AND FIXTURE REPAIRER * Moriah Neves R.N., CCRN - 01/05/2024 6:44 PM CST Rapid Response Follow Up Attending Provider: Octavio Morton M.B.* Admission Date: 01/01/2024 Current Vitals: Vitals: 01/05/24 1400 BP: 123/81 Pulse: 91 Resp: (!) 28 Temp: 36.6 ??C SpO2: 95% Rapid RN following for: Chest tube medication Assessment: Patient is lying in bed, speaking in full sentences. Breathing is unlabored. Chest tubeintact, no leak or crepitus present. Drainage is purulent and thick. Interventions: Administered TPA, flush, Dornase, flush (in that order), then clamped for an hour. Unclamped at 1830. Recommendations for primary RN: Monitor and document output. Safety equipment is at the bedside if you should need it. Rapid RN will continue to monitor for: Chest tube support and medications. Patient Disposition: remains the same Encouraged primary RN to call SOFTWARE PRODUCT SPECIALIST with questions, concerns, or if patient condition changes. AND FIXTURE REPAIRER * Gisela Concepcion M.S.N., R.N. - 01/05/2024 1:27 PM CST Shift Goals: Clinical Goals for the Shift: VSS, monitor WOB, remain safe Identify possible barriers to meeting goals/advancing plan of care: acuity of illness End of Shift Summary: ORIENTATION: A&Ox3 SAFETY MEASURES: Bed Alarm, Chair Alarm, VCM, and Hourly Rounding ASSISTED MOBILITY: x1, Gait belt, and Walker VITALS: Vitals assessed and stable this shift INTAKE: Inadequate for solids and Inadequate for liquids OUTPUT: Patient has low urine output. PAIN: Pain has been well controlled with PRN medications PRN MEDICATIONS UTILIZED THIS SHIFT: Oxycodone DVT PROPHYLAXIS: SCDs CHG/SMITH CARE NEEDS: CHG Bath SHIFT EVENTS: Chest tube place. 90 ml out with placement. Open to water seal. Family at bedside. Did not have dialysis today. UPCOMING PLAN OF CARE: Discharge pending improvement. Problem: PAIN - ADULT Goal: PT VERBALIZES/DEMONSTRATES ADEQUATE COMFORT LEVEL OR BASELINE Outcome: Progressing Problem: INFECTION - ADULT Goal: Absence of infection during hospitalization Outcome: Progressing Problem: CARDIOVASCULAR - ADULT Goal: Maintains optimal cardiac output and hemodynamic stability Outcome: Progressing Problem: METABOLIC/FLUID AND ELECTROLYTES - ADULT Goal: Electrolytes maintained within normal limits Outcome: Progressing Goal: Hemodynamic stability and optimal renal function maintained Outcome: Progressing AND FIXTURE REPAIRER * Ricky Brown R.N. - 01/05/2024 6:22 AM CST INPATIENT SHIFT SUMMARY SHIFT EVENTS: Pt moved to chair around 0000 due to being uncomfortable, PRN oxy given and pt able to sleep for a few hours while reclined in chair. Pt was NPO starting at 0000. ORIENTATION: A&Ox3 SAFETY MEASURES: Bed Alarm, Chair Alarm, and Hourly Rounding ASSISTED MOBILITY: x1, Gait belt, and Walker VITALS: Vitals assessed and stable this shift INTAKE: Adequate for solids and Adequate for liquids OUTPUT: Patient has low urine output. PAIN: Pain has been well controlled with PRN medications PRN MEDICATIONS UTILIZED THIS SHIFT: Oxycodone DVT PROPHYLAXIS: Subq Heparin CHG/SMITH CARE NEEDS: CHG Bath UPCOMING PLAN OF CARE: Manage pain, safety, possible chest tube insertion in AM Problem: PAIN - ADULT Goal: PT VERBALIZES/DEMONSTRATES ADEQUATE COMFORT LEVEL OR BASELINE Outcome: Intervention Note: PRN oxy given Problem: SAFETY ADULT Goal: Maintain a safe environment Outcome: Progressing Note: Bed/chair alarms used for safety Problem: RESPIRATORY - ADULT Goal: Achieves optimal ventilation and oxygenation Outcome: Progressing Note: Pt stayed on RA overnight AND FIXTURE REPAIRER * Patsy Storey R.N. - 01/04/2024 6:26 PM CST Dialysis Treatment Summary Treatment Summary: Pt completed most of prescribed 3.5 hour treatment. Ran with bed flat due to constant alarms if HOB raised at all. Constant alarms with any other pt movement. Towards end of treatment, pt was very uncomfortable and asked to end early. Constant alarms from coughing. Concerns for line clotting off. Pt ended treatment 30 minutes early. Pulled 2 L. Heparin: No Access used: Catheter - exit site clean and dry. Pre weight: 61.1 kg Post weight: 58.6 kg Net fluid removal: 2.5 L Patsy Storey R.N. AND FIXTURE REPAIRER * Ulises Vo RElielNEliel - 01/03/2024 11:37 PM CST Shift Goals: Clinical Goals for the Shift: VSS, monitor WOB, remain safe Shift Events: appeared to rest well during rounds, pivoted to commode for 1 large fluffy BM, calledappropriately 24 HR Vitals: Temperature: [36 ??C-37.2 ??C] 36.7 ??C Heart Rate: [94-126] 109 Resp Rate: [9-29] 21 Blood Pressure: (90-118)/(51-70) 107/60 SpO2: [91 %-96 %] 94 % Flow Rate (L/min): [0 L/min] 0 L/min Pulse Rate: [93-119] 108 I/O this shift: In: 200 [P.O.:200] Out: 800 [Urine:300; Other:500] Mobility: A2 GB/w to pivot/shuffle AO: x 3 Smith/CL: no smith, R IJ HD cath DVT: sub q hep Integument: see LDA BG: no POC checks Problem: GENITOURINARY - ADULT Goal: Optimize urinary function Outcome: Progressing Note: Monitor I/O, BMP. Problem: RESPIRATORY - ADULT Goal: Achieves optimal ventilation and oxygenation Outcome: Progressing Note: Monitor WOB. AND FIXTURE REPAIRER * Morena Zarate R.N. - 01/03/2024 11:11 AM CST Dialysis Treatment Summary Treatment Summary: The patient completed 2.5 hours of prescribed hemodialysis treatment. Temporary dialysis catheter is not working well, alarms every 15 seconds to 1 minute and with any patient movement, swallowing or talking. ICU occupational analyst attempted to reposition catheter and redo sutures, withminimal improvement. pressure control supervisor trialed every effort to alleviate alarms, but with no success. Pulled 0.9 L. Heparin: No Access used: Catheter - exit site clean and dry. Pre weight: 64.2 kg Post weight: 64.5 kg Net fluid removal: 0.9 L Morena Zarate R.N. AND FIXTURE REPAIRER * Alicia Vo R.N. - 01/03/2024 2:15 AM CST Shift Goals: Problem: SAFETY ADULT Goal: Maintain a safe environment Outcome: Progressing Problem: Incontinence and/or Moisture Goal: Skin integrity is maintained or improved Outcome: Progressing Problem: CARDIOVASCULAR - ADULT Goal: Maintains optimal cardiac output and hemodynamic stability Outcome: Progressing Problem: METABOLIC/FLUID AND ELECTROLYTES - ADULT Goal: Electrolytes maintained within normal limits Outcome: Progressing Identify possible barriers to meeting goals/advancing plan of care: End of Shift Summary: Pt alert and oriented x 3. HR ST 100s-110s tele alarms for ST elevation. Pt denied chest pain. Provider notified, no new orders. BPs stable. Continent using urinal this shift. No BM. Total urine output 720 mLs. Appeared to be resting well during rounds. AND FIXTURE REPAIRER * Renae Franklin R.N. - 01/02/2024 6:28 PM CST Dialysis Treatment Summary Treatment Summary: Patient completed first run. Patient tolerated well, no hypotension. Unable to get an accurate weight today, will attempt standing weight tomorrow. Frequent high venous pressures with any patient movement or talking. Heparin: none Access used: Catheter - exit site clean and dry. Ran reverse Net fluid removal: 0.4 L Renae Franklin R.N. AND FIXTURE REPAIRER * Olegario Oconnor R.N. - 01/02/2024 8:12 AM CST Shift Goals: Replace electrolytes, Manage blood pressure, remain free of falls, Identify possible barriers to meeting goals/advancing plan of care: acuity of illness INPATIENT SHIFT SUMMARY ORIENTATION: A&Ox3 SAFETY MEASURES: Bed Alarm ASSISTED MOBILITY: x2, Gait belt, Pivot, and Walker VITALS: Patients blood pressure became soft during the shift, see comment below INTAKE: Patient NPO and Maintenance IV fluids NS 75 mL/hr OUTPUT: Patient has been urinating adequately. Patient retaining urine, see comment below PAIN: Patient has not had any complaints of pain this shift. PRN MEDICATIONS UTILIZED THIS SHIFT: None DVT PROPHYLAXIS: SCDs and Subq Heparin CHG/SMITH CARE NEEDS: None needed SHIFT EVENTS: Pt arrived from [place] ED due to FRANCISCO, Pneumonia, and pleural effusions Patient struggled to maintain his blood pressure see comments below. UPCOMING PLAN OF CARE: Manage blood pressure, replace electrolytes, Monitor I&O, Patient planned to have biopsy of newnodules found on lung Problem: CARDIOVASCULAR - ADULT Goal: Maintains optimal cardiac output and hemodynamic stability Outcome: Progressing Note: Patient struggled to maintain their blood pressure. Pt began having soft blood pressures withsystolics of 80-90 and MAPs <65. 2 250mL boluses of LR given, 12.5 mg of Albumin given, Electrolytes replaced. By the end of the shift patients Blood pressure began to improve with systolic 100-110. Problem: METABOLIC/FLUID AND ELECTROLYTES - ADULT Goal: Electrolytes maintained within normal limits Outcome: Progressing Note: Patient Had Low K+, Mg+, Ca+. All three were replaced via IV. Goal: Hemodynamic stability and optimal renal function maintained Note: Patient has very poor renal function with a gfr <15. Patient has significant edema in lower extremities. Problem: GENITOURINARY - ADULT Goal: Optimize urinary function Outcome: Progressing Note: Patient is retaining urine. Patient was bladder scanned for 409 at 0200, he was then straightcathed, got 425 out. PT bladder scanned at 0645 had 349. AND FIXTURE REPAIRER documented in this encounter Miscellaneous Notes * Documentation Clarification - Octavio Morton M.B., Ch.B. - 01/05/2024 1:31 PM CST PROVIDER RESPONSE TEXT: To clarify, the appropriate diagnosis supported by the clinical indicators: Severe Malnutrition, pt declining snacks or supplements. Monitoring of Meals/Supplement Intake, Weight Status, Pertinent Labs, Nausea/Vomiting/Diarrhea QUERY TEXT: Clarification DOCUMENTATION CLARIFICATION REQUEST Please clarify/specify the appropriate diagnosis supported in the clinical indicators below. Clinical Indicators/Risk Factors/Treatment: 12/[address] Reynaga 83 yo with PMH of CKD 3b transferred from [facility] with failure to thrive and chronic watery diarrhea. Has weakness, poor appetite and now barely able to get out of bed. 01/01 Consult Gabrielle Croft RDN, LD Severe malnutrition in the context of acute illness/injury - Energy Intake: Less than or equal to 50 % of estimated energy requirement for greater than or equal to 5 days - Interpretation of Weight Loss: greater than 7.5% 3 months - Body Fat: Moderate Loss - Muscle Mass: Moderate Loss - Fluid Accumulation: Moderate-Severe Interventions: Pt declined snacks or supplements at this time. Will follow for diet advancement, pointakes and provide nutrition interventions. Monitoring of Meals/Supplement Intake, Weight Status, Pertinent Labs, Nausea/Vomiting/Diarrhea Treatment: RDN consult, Adult regular diet 2000 ml fluid ordered, monitoring of intake via nursing flowsheets Options provided: -- Severe Malnutrition, pt declining snacks or supplements. Monitoring of Meals/Supplement Intake, Weight Status, Pertinent Labs, Nausea/Vomiting/Diarrhea -- Other - I will add my own diagnosis -- Disagree - Clinically unable to determine / Unknown -- Refer to Clinical Documentation Reviewer Query created by: Lakia Dodge on 01/04/2024 11:03 AM Electronically signed by: Octavio Cavazos 01/05/2024 1:31 PM AND FIXTURE REPAIRER documented in this encounter Plan of Treatment Upcoming Encounters Date Type Department Care Team (Late st Contact Info) Description 01/26/2024 1:00 PM JIG AND FIXTURE REPAIRER Office Visit Department of Infectious Diseases in [place], [place] [address] [place] [phone] Clara Jones P.A.-C. [address] [place] [phone] Pending Results Name Type Priority Associated Diagnoses Date /Time Bacteria / Cheri Culture, Blood #1 Microbiology Routine 01/03/2024 10: 53 AM JIG AND FIXTURE REPAIRER Bacteria / Cheri Culture, Blood #2 Microbiology Routine 01/03/2024 10: 52 AM JIG AND FIXTURE REPAIRER Bacterial Culture, Anaerobic + Susceptibility Microbiology Timed 01/03/2024 6:10 AM JIG AND FIXTURE REPAIRER Broad Range Bacteria PCR + Sequencing Microbiology Timed 01/03/2024 6:10 AM JIG AND FIXTURE REPAIRER Bacterial Culture, Aerobic + Susceptibility Microbiology Timed 024 12:50 PM JIG AND FIXTURE REPAIRER Bacterial Culture, Anaerobic + Susceptibility Microbiology Timed 01/05/2024 12:50 PM JIG AND FIXTURE REPAIRER Tropheryma whipplei PCR, Blood Microbiology Routine 01/06/2024 11:36 AM JIG AND FIXTURE REPAIRER [facility] [place] [facility] - Sent Out Lab Lab Routine 01/06/2024 10:59 AM JIG AND FIXTURE REPAIRER Scheduled Orders Name Type Priority Associated Diagnoses Order Schedule GI Pathogen Panel, PCR, Feces Microbiology Routine Used to default specific lab tests to in 24 hours from releasing the order. for 24 Hours starting 01/02/2024 until 01/02/2024 Staph aureus / MRSA, Nasal, PCR Microbiology Routine Routine lab collection (next collection) for 1 Occurrences starting 01/04/2024 until 01/04/2024 DX Chest 1 View Imaging RAD - Routine (most inpatients and all outpatients) daily imaging for 7 Days starting 01/06/2024 until 01/12/2024, 2 completed Tropheryma whipplei PCR, Blood Microbiology Routine Routine lab collection (next collection) for 1 Occurrences starting 01/06/2024 until 01/06/2024 DX Panorex Teeth Imaging RAD - Routine (most inpatients and all outpatients) Once for 1 Occurrences starting 01/06/2024 until 01/06/2024 Hepatic Function Panel Lab Routine Daily for 7 Days starting 01/07/2024 until 01/13/2024, 1 completed CBC with Differential, Blood Lab Routine Daily for 7 Days starting 01/07/2024 until 01/13/2024, 1 completed Basic Metabolic Panel Lab Routine Daily for 7 Days starting 01/07/2024 until 01/13/2024, 1 completed Magnesium Lab Routine Daily for 7 Da ys starting 01/07/2024 until 01/13/2024, 1 completed Phosphorus Inorganic Lab Routine Daily for 7 Days starting 01/07/2024 until 01/13/2024, 1 completed documented as of this encounter Procedures * The patient is currently admitted. The information in this section might not be complete until the patient is discharged. Procedure Name Priority Date/Time Associated Diagnosis Comments HEMOGLOBIN, B Timed 01/07/2024 3:50 PM JIG AND FIXTURE REPAIRER DX CHEST 1 VIEW RAD - Routine (most inpatients and all outpatients) 01/07/2024 7:14 AM JIG AND FIXTURE REPAIRER MORPHOLOGY EVALUATION Routine 01/07/2024 5:29 AM JIG AND FIXTURE REPAIRER HEPATIC FUNCTION PANEL, S Routine 01/07/2024 5:29 AM JIG AND FIXTURE REPAIRER CBC WITH DIFFERENTIAL, B Routine 01/07/2024 5:29 AM JIG AND FIXTURE REPAIRER PHOSPHORUS (INORGANIC), S Routine 01/07/2024 5:29 AM JIG AND FIXTURE REPAIRER MAGNESIUM, S Routine 01/07/2024 5:29 AM JIG AND FIXTURE REPAIRER BASIC METABOLIC PANEL, S/P Routine 01/07/2024 5:29 AM JIG AND FIXTURE REPAIRER MISCELLANEOUS SENT OUT LAB TEST Routine 01/06/2024 11:36 AM JIG AND FIXTURE REPAIRER MISC. [facility] Routine 01/06/2024 10:59 AM JIG AND FIXTURE REPAIRER DX CHEST 1 VIEW RAD - Routine (most inpatients and all outpatients) 01/06/2024 7:19 AM JIG AND FIXTURE REPAIRER MORPHOLOGY EVALUATION Timed 01/06/2024 5:37 AM JIG AND FIXTURE REPAIRER MANUAL DIFFERENTIAL, B Timed 01/06/2024 5:37 AM JIG AND FIXTURE REPAIRER RENAL FUNCTION PANEL, S Timed 01/06/2024 5:37 AM JIG AND FIXTURE REPAIRER CBC WITH DIFFERENTIAL, B Timed 01/06/2024 5:37 AM JIG AND FIXTURE REPAIRER MAGNESIUM, S Timed 01/06/2024 5:37 AM JIG AND FIXTURE REPAIRER ECG STAT 01/06/2024 5:32 AM JIG AND FIXTURE REPAIRER IR CHEST TUBE PLACEMENT RAD - Routine (most inpatients and all outpatients) 01/05/2024 1:42 PM JIG AND FIXTURE REPAIRER CYTOLOGY NON-CHECK EMBOSSER Routine 01/05/2024 12:5 0 PM JIG AND FIXTURE REPAIRER PROTEIN, TOTAL, BF Timed 01/05/2024 12 :50 PM JIG AND FIXTURE REPAIRER BACTERIAL CULTURE, AEROBIC + SUSC Timed 01/05/2024 12:50 PM JIG AND FIXTURE REPAIRER CELL COUNT AND DIFFERENTIAL, BF Timed 01/05/2024 12:50 PM JIG AND FIXTURE REPAIRER TRIGLYCERIDES, BF Timed 01/05/2024 12: 50 PM JIG AND FIXTURE REPAIRER PH, PLEURAL FLUID Timed 01/05/2024 12: 50 PM JIG AND FIXTURE REPAIRER GRAM STAIN Timed 01/05/2024 12:50 PM JIG AND FIXTURE REPAIRER BACTERIAL CULTURE, ANAEROBIC + SUSC Timed 01/05/2024 12:50 PM JIG AND FIXTURE REPAIRER LACTATE DEHYDROGENASE (LD), BF Timed 01/05/2024 12:50 PM JIG AND FIXTURE REPAIRER GLUCOSE, BODY FLUID Timed 01/05/2024 1 2:50 PM JIG AND FIXTURE REPAIRER MORPHOLOGY EVALUATION Routine 01/05/2024 5:52 AM JIG AND FIXTURE REPAIRER MANUAL DIFFERENTIAL, B Routine 01/05/2024 5:52 AM JIG AND FIXTURE REPAIRER CBC WITH DIFFERENTIAL, B Routine 01/05/2024 5:52 AM JIG AND FIXTURE REPAIRER BASIC METABOLIC PANEL, S/P Routine 01/05/2024 5:52 AM JIG AND FIXTURE REPAIRER PNEUMONIA PANEL, PCR Routine 01/04/2024 7:45 PM JIG AND FIXTURE REPAIRER BACTERIAL CULTURE, AEROBIC + SUSC, RESP Routine 01/04/2024 7:45 PM JIG AND FIXTURE REPAIRER NASAL SCREEN FOR MRSA BY RAPID PCR Routine 01/04/2024 7:45 PM JIG AND FIXTURE REPAIRER GRAM STAIN Routine 01/04/2024 7:45 PM JIG AND FIXTURE REPAIRER (TTE) 2D ECHO DOPPLER COLOR AND CONTRAST Routine 01/04/2024 10:38 AM JIG AND FIXTURE REPAIRER URINALYSIS WITH MICROSCOPIC IF INDICATED, U Routine 01/04/2024 5:56 AM JIG AND FIXTURE REPAIRER SODIUM, RANDOM, U Routine 01/04/2024 5:5 6 AM JIG AND FIXTURE REPAIRER HC URINALYSIS AUTO WO MICRO Routine 01/04/2024 5:56 AM JIG AND FIXTURE REPAIRER PROTEIN/CREATININE RATIO, RANDOM, URINE Routine 01/04/2024 5:56 AM JIG AND FIXTURE REPAIRER NT-PRO B-TYPE NATRIURETIC PEPTIDE (BNP), S Routine 01/04/2024 4:56 AM JIG AND FIXTURE REPAIRER IRON AND TOT IRON-BINDING CAPACITY, S/P Routine 01/04/2024 4:56 AM JIG AND FIXTURE REPAIRER CBC WITH DIFFERENTIAL, B Routine 01/04/2024 4:56 AM JIG AND FIXTURE REPAIRER PARATHYROID HORMONE (PTH), S Routine 01/04/2024 4:56 AM JIG AND FIXTURE REPAIRER FERRITIN, S Routine 01/04/2024 4:56 AM JIG AND FIXTURE REPAIRER BASIC METABOLIC PANEL, S/P Routine 01/04/2024 4:56 AM JIG AND FIXTURE REPAIRER CYTOLOGY NON-CHECK EMBOSSER Timed 01/03/2024 5:09 PM JIG AND FIXTURE REPAIRER US THORACENTESIS RIGHT WITH IMAGING GUIDANCE RAD - Routine (most inpatients and all outpatients) 01/03/2024 5:04 PM JIG AND FIXTURE REPAIRER BASIC METABOLIC PANEL, S/P Timed 01/03/2024 1:56 PM JIG AND FIXTURE REPAIRER HEMODIALYSIS Routine 01/03/2024 11:28 AM JIG AND FIXTURE REPAIRER BACTERIA / CHERI CULTURE, BLOOD Routine 01/03/2024 10:53 AM JIG AND FIXTURE REPAIRER LACTATE FOR SEPSIS WITH REFLEX Routine 01/03/2024 10:52 AM JIG AND FIXTURE REPAIRER BACTERIA / CHERI CULTURE, BLOOD Routine 01/03/2024 10:52 AM JIG AND FIXTURE REPAIRER ALBUMIN, S/P Routine 01/03/2024 10:51 AM JIG AND FIXTURE REPAIRER HEMODIALYSIS Routine 01/03/2024 8:16 AM JIG AND FIXTURE REPAIRER PH BLOOD GAS Routine 01/03/2024 6:42 AM JIG AND FIXTURE REPAIRER QUANTIFERON-TB GOLD PLUS, B Routine 01/03/2024 6:42 AM JIG AND FIXTURE REPAIRER VITAMIN D, IMMUNOASSAY, TOTAL, S Routine 01/03/2024 6:42 AM JIG AND FIXTURE REPAIRER NT-PRO B-TYPE NATRIURETIC PEPTIDE (BNP), S Routine 01/03/2024 6:42 AM JIG AND FIXTURE REPAIRER HBC TOTAL AB, SERUM Routine 01/03/2024 6 :42 AM JIG AND FIXTURE REPAIRER HBS ANTIBODY, SERUM Routine 01/03/2024 6 :42 AM JIG AND FIXTURE REPAIRER HEPATITIS B SURFACE ANTIGEN Routine 01/03/2024 6:42 AM JIG AND FIXTURE REPAIRER CBC WITH DIFFERENTIAL, B Routine 01/03/2024 6:42 AM JIG AND FIXTURE REPAIRER CALCIUM, IONIZED, S/B Routine 01/03/2024 6:42 AM JIG AND FIXTURE REPAIRER BASIC METABOLIC PANEL, S/P Routine 01/03/2024 6:42 AM JIG AND FIXTURE REPAIRER BROAD RANGE BACTERIA PCR AND SEQUENCING Timed 01/03/2024 6:10 AM JIG AND FIXTURE REPAIRER LEUKEMIA/LYMPHOMA, PHENOTYPE, V Timed 01/03/2024 6:10 AM JIG AND FIXTURE REPAIRER PROTEIN, TOTAL, BF Timed 01/03/2024 6: 10 AM JIG AND FIXTURE REPAIRER M TUBERCULOSIS COMPLEX PCR, V Timed 01/03/2024 6:10 AM JIG AND FIXTURE REPAIRER BACTERIAL CULTURE, AEROBIC + SUSC Timed 01/03/2024 6:10 AM JIG AND FIXTURE REPAIRER CHOLESTEROL, BF Timed 01/03/2024 6:10 AM JIG AND FIXTURE REPAIRER CELL COUNT AND DIFFERENTIAL, BF Timed 01/03/2024 6:10 AM JIG AND FIXTURE REPAIRER GRAM STAIN Timed 01/03/2024 6:10 AM JIG AND FIXTURE REPAIRER BACTERIAL CULTURE, ANAEROBIC + SUSC Timed 01/03/2024 6:10 AM JIG AND FIXTURE REPAIRER LACTATE DEHYDROGENASE (LD), BF Timed 01/03/2024 6:10 AM JIG AND FIXTURE REPAIRER GLUCOSE, BODY FLUID Timed 01/03/2024 6 :10 AM JIG AND FIXTURE REPAIRER DX CHEST PORTABLE 1 VIEW RAD - Semiurgent (Fast; most ED patients; some inpatients) 01/02/2024 3:59 PM JIG AND FIXTURE REPAIRER MC ANE CENTRAL LINE GENERIC PERFORMABLE Routine 01/02/2024 3:47 PM JIG AND FIXTURE REPAIRER Failure Renal Acute (Acute Kidney Injury) (HCC) LDA ANE CENTRAL LINE DOUBLE LUMEN ADULT Routine 01/02/2024 3:47 PM JIG AND FIXTURE REPAIRER Failure Renal Acute (Acute Kidney Injury) (HCC) IN US GUIDE VASC ACCESS Routine 01/02/2024 3:47 PM JIG AND FIXTURE REPAIRER Failure Renal Acute (Acute Kidney Injury) (HCC) IN INS NON-BLAINE CVC >5YR Routine 01/02/2024 3:47 PM JIG AND FIXTURE REPAIRER Failure Renal Acute (Acute Kidney Injury) (HCC) HEMODIALYSIS Routine 01/02/2024 2:44 PM JIG AND FIXTURE REPAIRER MAGNESIUM, S Routine 01/02/2024 11:32 AM JIG AND FIXTURE REPAIRER BASIC METABOLIC PANEL, S/P Routine 01/02/2024 11:32 AM JIG AND FIXTURE REPAIRER US KIDNEYS BILATERAL WITH BLADDER RAD - Routine (most inpatients and all outpatients) 01/02/2024 10:15 AM JIG AND FIXTURE REPAIRER DX CHEST PORTABLE 1 VIEW RAD - Semiurgent (Fast; most ED patients; some inpatients) 01/02/2024 4:24 AM JIG AND FIXTURE REPAIRER PH BLOOD GAS Routine 01/02/2024 4:10 AM JIG AND FIXTURE REPAIRER CREATINE KINASE (CK), S Routine 01/02/2024 4:10 AM JIG AND FIXTURE REPAIRER CALCIUM, IONIZED, S/B Routine 01/02/2024 4:10 AM JIG AND FIXTURE REPAIRER ALBUMIN, S/P Routine 01/02/2024 4:10 AM JIG AND FIXTURE REPAIRER LACTATE, B STAT 01/02/2024 3:41 AM JIG AND FIXTURE REPAIRER NT-PRO B-TYPE NATRIURETIC PEPTIDE (BNP), S Routine 01/02/2024 3:41 AM JIG AND FIXTURE REPAIRER CBC WITH DIFFERENTIAL, B Routine 01/02/2024 3:41 AM JIG AND FIXTURE REPAIRER PHOSPHORUS (INORGANIC), S Routine 01/02/2024 3:41 AM JIG AND FIXTURE REPAIRER OSMOLALITY, S Routine 01/02/2024 3:41 AM JIG AND FIXTURE REPAIRER MAGNESIUM, S Routine 01/02/2024 3:41 AM JIG AND FIXTURE REPAIRER VENOUS BLOOD GAS W/COOX, B Routine 01/02/2024 3:41 AM JIG AND FIXTURE REPAIRER BASIC METABOLIC PANEL, S/P Routine 01/02/2024 3:41 AM JIG AND FIXTURE REPAIRER ECG Routine 01/02/2024 12:39 AM JIG AND FIXTURE REPAIRER documented in this encounter Results * (ABNORMAL) Hemoglobin (01/07/2024 3:50 PM JIG AND FIXTURE REPAIRER) Hemoglobin 9.1(L) 13.2 - 16.6 g/dL 01/07/2024 3:59 PM JIG AND FIXTURE REPAIRER [facility] Blood (Blood, Venous) 01/07/2024 3:50 PM JIG AND FIXTURE REPAIRER 01/07/2024 3:55 PM JIG AND FIXTURE REPAIRER us Chapito Velazquez D.O. LAB BLOOD ADD-ON Final Resul t [facility] [address] [place] [phone], [facility] MKTO [facility] in [place] [address] [place] [phone] * DX Chest 1 View (01/07/2024 7:14 AM JIG AND FIXTURE REPAIRER) Anatomical Region Laterality Modality Chest, Thoracic RST LOS, Tho racic ARZ LOS, Thoracic FLA LOS N/A Digital Radiography Impressions 01/07/2024 7:42 AM JIG AND FIXTURE REPAIRER No significant change. Narrative 01/07/2024 7:42 AM JIG AND FIXTURE REPAIRER EXAM: DX CHEST 1 VIEW COMPARISON: Chest [...] rotator cuff tears. IMPRESSION: No significant change. us Fidencio Oliva M.D. IMG DIAGNOSTIC IMAGING PROCED URES Final Result * (ABNORMAL) Morphology Evaluation (01/07/2024 5:29 AM JIG AND FIXTURE REPAIRER) RBC Morphology See Specific Findings 01/07/2024 6:24 AM JIG AND FIXTURE REPAIRER MKTO PLT Morphology Normal 01/07/2024 6:24 AM JIG AND FIXTURE REPAIRER MKTO PLT Estimate Adequate Adequate 01/07/2024 6:24 AM JIG AND FIXTURE REPAIRER MKTO Anisocytosis Slight(A) 01/07/2024 6:24 AM JIG AND FIXTURE REPAIRER MKTO Basophilic Stippling Slight(A) 01/07/2024 6:24 AM JIG AND FIXTURE REPAIRER MKTO Poikilocytosis Slight(A) Not Seen 01/07/2024 6:24 AM JIG AND FIXTURE REPAIRER MKTO Blood 01/07/2024 5:29 AM JIG AND FIXTURE REPAIRER 01/07/2024 5:51 AM JIG AND FIXTURE REPAIRER us Jeremías Fernandez M.D. LAB BLOOD ADD-ON Final Resul t [facility] [address] [place] [address], [facility] [address] [place] [phone] * Phosphorus Inorganic (01/07/2024 5:29 AM JIG AND FIXTURE REPAIRER) Phosphorus (Inorganic), P 2.5 2.5 - 4.5 mg/dL 01/07/2024 6:19 AM JIG AND FIXTURE REPAIRER MKTO Blood (Blood, Venous) 01/07/2024 5:29 AM JIG AND FIXTURE REPAIRER 01/07/2024 5:51 AM JIG AND FIXTURE REPAIRER us Jeremías Fernandez M.D. LAB BLOOD ADD-ON Final Resul t Performing Organization Address City/[facility]/ZIP Co de Phone Number [facility] [address] [place] [phone], [facility] [address] [place] [phone] * Magnesium (01/07/2024 5:29 AM JIG AND FIXTURE REPAIRER) Magnesium, P 1.7 1.7 - 2.3 mg/dL 01/07/2024 6:19 AM JIG AND FIXTURE REPAIRER MKTO Blood (Blood, Venous) 01/07/2024 5:29 AM JIG AND FIXTURE REPAIRER 01/07/2024 5:51 AM JIG AND FIXTURE REPAIRER us Jeremías Fernandez M.D. LAB BLOOD ADD-ON Final Resul t [facility] [address] [place] [address], [facility] [place] [address] * (ABNORMAL) Basic Metabolic Panel (01/07/2024 5:29 AM JIG AND FIXTURE REPAIRER) Potassium, P 3.3(L) 3.6 - 5.2 mmol/L 01/07/2024 6:19 AM JIG AND FIXTURE REPAIRER MKTO Sodium, P 141 135 - 145 mmol/L 01/07/2024 6:19 AM JIG AND FIXTURE REPAIRER MKTO Chloride, P 105 98 - 107 mmol/L 01/07/2024 6:19 AM JIG AND FIXTURE REPAIRER MKTO Bicarbonate, P 24 22 - 29 mmol/L 01/07/2024 6:19 AM JIG AND FIXTURE REPAIRER MKTO Anion Gap, P 12 7 - 15 01/07/2024 6:19 AM JIG AND FIXTURE REPAIRER MKTO BUN (Blood Urea Nitrogen), P 41(H) 8 - 24 mg/dL 01/07/2024 6:19 AM JIG AND FIXTURE REPAIRER MKTO Creatinine 2.01(H) 0.74 - 1.35 mg/dL 01/07/2024 6:19 AM JIG AND FIXTURE REPAIRER MKTO Estimated GFR (eGFR) 32(L) >=60 mL/min/BSA 01/07/2024 6:19 AM JIG AND FIXTURE REPAIRER MKTO Comment: Estimated GFR calculated using the 2020 CKD_EPI creatinine equation. Calcium, Total, P 8.1(L) 8.8 - 10.2 mg/dL 01/07/2024 6:19 AM JIG AND FIXTURE REPAIRER MKTO Glucose, P 108 70 - 140 mg/dL 01/07/2024 6:19 AM JIG AND FIXTURE REPAIRER MKTO Blood (Blood, Venous) 01/07/2024 5:29 AM JIG AND FIXTURE REPAIRER 01/07/2024 5:51 AM JIG AND FIXTURE REPAIRER us Jeremías Fernandez M.D. LAB BLOOD ADD-ON Final Resul t [facility] [address] [place] [phone], [facility] in [address] [address] * (ABNORMAL) CBC with Differential, Blood (01/07/2024 5:29 AM JIG AND FIXTURE REPAIRER) Pathologist [facility] Hemoglobin 8.7(L) 13.2 - 16.6 g/dL 01/07/2024 6:23 AM JIG AND FIXTURE REPAIRER MKTO Hematocrit 26.8(L) 38.3 - 48.6 % 01/07/2024 6:23 AM JIG AND FIXTURE REPAIRER MKTO Erythrocytes 2.84(L) 4.35 - 5.65 x10(12)/L 01/07/2024 6:23 AM JIG AND FIXTURE REPAIRER MKTO MCV 94.4 78.2 - 97.9 fL 01/07/2024 6:23 AM JIG AND FIXTURE REPAIRER MKTO RBC Distrib Width 14.7(H) 11.8 - 14.5 % 01/07/2024 6:23 AM JIG AND FIXTURE REPAIRER MKTO Platelet Count 263 135 - 317 x10(9)/L 01/07/2024 6:23 AM JIG AND FIXTURE REPAIRER MKTO Leukocytes 14.9(H) 3.4 - 9.6 x10(9)/L 01/07/2024 6:23 AM JIG AND FIXTURE REPAIRER MKTO Neutrophils 12.77(H) 1.56 - 6.45 x10(9)/L 01/07/2024 6:23 AM JIG [employer] REPA[employer]TO Lymphocytes 0.90(L) 0.95 - 3.07 x10(9)/L 01/07/2024 6:23 AM [employer] RE[employer]TO Monocytes 0.87(H) 0.26 - 0.81 x10(9)/L 01/07/2024 6:23 AM [employer] REPA[employer]TO Eosinophils 0.23 0.03 - 0.48 x10(9)/L 01/07/2024 6:23 AM [employer] RE[employer]TO Basophils 0.09(H) 0.01 - 0.08 x10(9)/L 01/07/2024 6:23 AM [employer] REPA[employer] MKTO Blood (Blood, Venous) 01/07/2024 5:29 AM [employer] REPAIRER 01/07/2024 5:51 AM [employer] REPAIRER us Jeremías Fernandez M.D. LAB BLOOD ADD-ON Final Resul t [facility] [address] [place], [place] [address] [address] * (ABNORMAL) Hepatic Function Panel (01/07/2024 5:29 AM JIG AND FIXTURE REPAIRER) Bilirubin, Total, P <0.2 0.0 - 1.2 mg/dL 01/07/2024 6:19 AM JIG AND FIXTURE REPAIRER MKTO Bilirubin, Direct, P 0.1 0.0 - 0.3 mg/dL 01/07/2024 6:19 AM JIG AND FIXTURE REPAIRER MKTO Aspartate Aminotransferase (AST), P 25 8 - 48 U/L 01/07/2024 6:19 AM JIG AND FIXTURE REPAIRER MKTO Alanine Aminotransferase (ALT), P 15 7 - 55 U/L 01/07/2024 6:19 AM JIG AND FIXTURE REPAIRER MKTO Alkaline Phosphatase, P 110 40 - 129 U/L 01/07/2024 6:19 AM JIG AND FIXTURE REPAIRER MKTO Albumin, P 2.5(L) 3.5 - 5.0 g/dL 01/07/2024 6:19 AM JIG AND FIXTURE REPAIRER MKTO Protein, Total, P 5.2(L) 6.3 - 7.9 g/dL 01/07/2024 6:19 AM JIG AND FIXTURE REPAIRER MKTO Blood (Blood, Venous) 01/07/2024 5:29 AM JIG AND FIXTURE REPAIRER 01/07/2024 5:51 AM JIG AND FIXTURE REPAIRER us Jeremías Fernandez M.D. LAB BLOOD ADD-ON Final Resul t [facility] [address] [place] [address], [address] [address] * [id number] Karius Test for Pathogen Detection - Miscellaneous Test (01/06/2024 11:36 AM JIG AND FIXTURE REPAIRER) Test Name Karius Test for Pathogen Detection 01/06/2024 11:49 AM JIG AND FIXTURE REPAIRER MKTO Result Specimen sent out; results to follow DEFAULT 01/06/2024 11:49 AM JIG AND FIXTURE REPAIRER MKTO Blood (Blood, Venous) 01/06/2024 11:36 AM JIG AND FIXTURE REPAIRER 01/06/2024 11:49 AM JIG AND FIXTURE REPAIRER us Sarah Rose M.D. LAB MISC ORDERA BLES Final Result [facility] [address] [place] [address], [place] MKTO [facility] [place] [address] [place] [address] * DX Chest 1 View (01/06/2024 7:19 AM JIG AND FIXTURE REPAIRER) Anatomical Region Laterality Modality Chest, Thoracic RST LOS, Tho racic ARZ LOS, Thoracic FLA LOS N/A Digital Radiography Impressions 01/06/2024 7:32 AM JIG AND FIXTURE REPAIRER Since 01/02/2024, placement of a right pleural pigtail catheter. Slight decrease in size of the small right pleural effusion. Bibasilar consolidation likely represents compressive atelectasis in the setting of effusion. No pneumothorax. The left lung is relatively well aerated. Normal heart size. Aortic calcifications. Right IJ CVC with tip in the mid SVC. Narrative 01/06/2024 7:32 AM JIG AND FIXTURE REPAIRER EXAM: DX CHEST 1 VIEW Procedure Note Yovany Shrestha M.D. - 01/06/2024 EXAM: DX CHEST 1 VIEW IMPRESSION: Since 01/02/2024, placement of a right pleural pigtail catheter. Slightdecrease in size of the small right pleural effusion. Bibasilarconsolidation likely represents compressive atelectasis in the setting ofeffusion. No pneumothorax. The left lung is relatively well aerated. Normal heart size. Aorticcalcifications. Right IJ CVC with tip in the mid SVC. us Fidencio Oliva M.D. IMG DIAGNOSTIC IMAGING PROCED URES Final Result * (ABNORMAL) Morphology Evaluation (01/06/2024 5:37 AM JIG AND FIXTURE REPAIRER) RBC Morphology See Specific Findings 01/06/2024 6:34 AM JIG AND FIXTURE REPAIRER MKTO PLT Morphology Normal 01/06/2024 6:34 AM JIG AND FIXTURE REPAIRER MKTO PLT Estimate Adequate Adequate 01/06/2024 6:34 AM JIG AND FIXTURE REPAIRER MKTO Basophilic Stippling Slight(A) 01/06/2024 6:34 AM JIG AND FIXTURE REPAIRER MKTO Poikilocytosis Slight(A) Not Seen 01/06/2024 6:34 AM JIG AND FIXTURE REPAIRER MKTO Blood 01/06/2024 5:37 AM JIG AND FIXTURE REPAIRER 01/06/2024 5:47 AM JIG AND FIXTURE REPAIRER Vidhya Tovar P.A.-C. LAB BLOOD ADD-ON Final Resu lt [facility] [address] [place] [address], [facility] MKTO [facility] [place] [address] * (ABNORMAL) Manual Differential, Blood (01/06/2024 5:37 AM JIG AND FIXTURE REPAIRER) Segmented Neutrophils 87(H) 50 - 75 % 01/06/2024 6:34 AM JIG AND FIXTURE REPAIRER MKTO Lymphocytes % 1(L) 18 - 42 % 01/06/2024 6:34 AM JIG AND FIXTURE REPAIRER MKTO Monocytes 5 2 - 11 % 01/06/2024 6:34 AM JIG AND FIXTURE REPAIRER MKTO Eosinophils 3 1 - 3 % 01/06/2024 6:34 AM JIG AND FIXTURE REPAIRER MKTO Basophils 1 0 - 2 % 01/06/2024 6:34 AM JIG AND FIXTURE REPAIRER MKTO Metamyelocytes 1(H) <1 % 01/06/2024 6:34 AM JIG AND FIXTURE REPAIRER MKTO Myelocytes 2(H) <0.5 % 01/06/2024 6:34 AM JIG AND FIXTURE REPAIRER MKTO Manual Absolute Neutrophil Count 12.44(H) 1.56 - 6.45 x10(9)/L 01/06/2024 6:34 AM JIG AND FIXTURE REPAIRER MKTO Comment: ----ADDITIONAL INFORMATION---- The manual absolute neutrophil count is derived from a manual differential count and therefore is not exactly comparable to the automated absolute neutrophil count. Blood 01/06/2024 5:37 AM JIG AND FIXTURE REPAIRER 01/06/2024 5:47 AM JIG AND FIXTURE REPAIRER Vidhya Tovar P.A.-C. LAB BLOOD ADD-ON Final Resu lt Performing Organization Address City/[facility]/ZIP Co de Phone Number [facility] [address] [place] [address], [place] [address] * (ABNORMAL) Magnesium (01/06/2024 5:37 AM JIG AND FIXTURE REPAIRER) Pathologist [facility] Magnesium, P 1.5(L) 1.7 - 2.3 mg/dL 01/06/2024 6:11 AM JIG AND FIXTURE REPAIRER MKTO Blood (Blood, Venous) 01/06/2024 5:37 AM JIG AND FIXTURE REPAIRER 01/06/2024 5:47 AM JIG AND FIXTURE REPAIRER Vidhya Tovar P.A.-C. LAB BLOOD ADD-ON Final Resu lt Performing Organization Address [facility] Co de Phone Number [facility] [address] [place] [address], [place] [address] * (ABNORMAL) CBC with Differential, Blood (01/06/2024 5:37 AM JIG AND FIXTURE REPAIRER) Pathologist [facility] Hemoglobin 9.2(L) 13.2 - 16.6 g/dL 01/06/2024 6:33 AM JIG AND FIXTURE REPAIRER MKTO Hematocrit 28.9(L) 38.3 - 48.6 % 01/06/2024 6:33 AM JIG AND FIXTURE REPAIRER MKTO Erythrocytes 3.07(L) 4.35 - 5.65 x10(12)/ L 01/06/2024 6:33 AM JIG AND FIXTURE REPAIRER MKTO MCV 94.1 78.2 - 97.9 fL 01/06/2024 6:33 AM JIG AND FIXTURE REPAIRER MKTO RBC Distrib Width 15.0(H) 11.8 - 14.5 % 01/06/2024 6:33 AM JIG AND FIXTURE REPAIRER MKTO Platelet Count 285 135 - 317 x10(9)/L 01/06/2024 6:33 AM JIG AND FIXTURE REPAIRER MKTO Leukocytes 14.3(H) 3.4 - 9.6 x10(9)/L 01/06/2024 6:33 AM JIG AND FIXTURE REPAIRER MKTO Neutrophils See manual differential 1.56 - 6.45 x10(9)/L 01/06/2024 6:33 AM JIG AND FIXTURE REPAIRER MKTO Blood (Blood, Venous) 01/06/2024 5:37 AM JIG AND FIXTURE REPAIRER 01/06/2024 5:47 AM JIG AND FIXTURE REPAIRER us Vidhya Tovar P.A.-C. LAB BLOOD ADD-ON Final Resu lt [facility] [address] [place] [address], [facility] MKTO [facility] [place] [address] [place] [address] * (ABNORMAL) Renal Function Panel (01/06/2024 5:37 AM JIG AND FIXTURE REPAIRER) Potassium, P 3.3(L) 3.6 - 5.2 mmol/L 01/06/2024 6:11 AM JIG AND FIXTURE REPAIRER MKTO Sodium, P 142 135 - 145 mmol/L 01/06/2024 6:11 AM JIG AND FIXTURE REPAIRER MKTO Chloride, P 104 98 - 107 mmol/L 01/06/2024 6:11 AM JIG AND FIXTURE REPAIRER MKTO Bicarbonate, P 25 22 - 29 mmol/L 01/06/2024 6:11 AM JIG AND FIXTURE REPAIRER MKTO Anion Gap, P 13 7 - 15 01/06/2024 6:11 AM JIG AND FIXTURE REPAIRER MKTO BUN (Blood Urea Nitrogen), P 37(H) 8 - 24 mg/dL 01/06/2024 6:11 AM JIG AND FIXTURE REPAIRER MKTO Creatinine 1.91(H) 0.74 - 1.35 mg/dL 01/06/2024 6:11 AM JIG AND FIXTURE REPAIRER MKTO Estimated GFR (eGFR) 34(L) >=60 mL/min/BSA 01/06/2024 6:11 AM JIG AND FIXTURE REPAIRER MKTO Comment: Estimated GFR calculated using the 2020 CKD_EPI creatinine equation. Calcium, Total, P 8.4(L) 8.8 - 10.2 mg/dL 01/06/2024 6:11 AM JIG AND FIXTURE REPAIRER MKTO Glucose, P 92 70 - 140 mg/dL 01/06/2024 6:11 AM JIG AND FIXTURE REPAIRER MKTO Albumin, P 2.7(L) 3.5 - 5.0 g/dL 01/06/2024 6:11 AM JIG AND FIXTURE REPAIRER MKTO Phosphorus (Inorganic), P 2.7 2.5 - 4.5 mg/dL 01/06/2024 6:11 AM JIG AND FIXTURE REPAIRER MKTO Blood (Blood, Venous) 01/06/2024 5:37 AM JIG AND FIXTURE REPAIRER 01/06/2024 5:47 AM JIG AND FIXTURE REPAIRER Vidhya Tovar P.A.-C. LAB BLOOD ADD-ON Final Resu lt Performing Organization Address [facility] Co de Phone Number [facility] [address] [place] [address], [facility] MKTO [facility] [place] [address] [place] [address] * ECG 12 Lead (01/06/2024 5:32 AM JIG AND FIXTURE REPAIRER) Ventricular Rate ECG/Min 98 BPM MUSE IN Interval 164 ms MUSE QRSD Interval 128 ms MUSE QT Interval 398 ms MUSE QTC Interval 508 ms MUSE P [place] 52 degrees MUSE R [place] -72 degrees MUSE T Wave [place] 53 degrees MUSE 01/06/2024 5:32 AM JIG AND FIXTURE REPAIRER 01/06/2024 5:40 AM JIG AND FIXTURE REPAIRER Impressions MUSE - 01/06/2024 5:40 AM JIG AND FIXTURE REPAIRER Normal sinus rhythm Right bundle branch block [...] change was found Reviewed by GABRIELA Roa Laura Chavez APRN, C.N.P. ECG ORDERABLES Sury vargas Result Performing Organization Address City/[facility]/ZIP Co de Phone Number MUSE NA * IR Chest Tube Placement (01/05/2024 1:42 PM JIG AND FIXTURE REPAIRER) Anatomical Region Laterality Modality Chest, Vascular Intervention al RST LOS, Vascular Interventional ARZ LOS, Vascular Interventional FLA LOS N/A X-Ray Angiography Impressions 01/05/2024 2:17 PM JIG AND FIXTURE REPAIRER 1. Right chest tube placement. Narrative 01/05/2024 2:17 PM JIG AND FIXTURE REPAIRER EXAM: IR CHEST TUBE PLACEMENT HISTORY: R [...] Patient education provided by a care steam conditioner operator. Patient was ready to learn with no apparent learning barriers were identified. Post-procedure care explained; patient expressed understanding of the content. PROCEDURE DETAILS: Sedation: None. Local anesthesia was achieved with lidocaine. Sedation time: None Estimated Blood Loss: Less than 10 mL. TECHNIQUE: Imaging guidance for drain insertion: Ultrasound and fluoroscopy with permanent image storage Access side: Right Catheter: 12 Dominican multipurpose pigtail drain Technique: Image guidance was used to localize the collection. A 5 Dominican Yueh needle catheter was used to access the collection under real time image guidance, and images were saved to PACS. Aspiration yielded purulent fluid. A guidewire was inserted, and the tract was dilated to accommodate a 12 Dominican pigtail drain. The catheter was secured with [...] Patient education provided by a care steam conditioner operator. Patient was ready to learn withno apparent learning barriers were identified. Post-procedure careexplained; patient expressed understanding of the content. PROCEDURE DETAILS: Sedation: None. Local anesthesia was achieved with lidocaine. Sedation time: None Estimated Blood Loss: Less than 10 mL. TECHNIQUE: Imaging guidance for drain insertion: Ultrasound and fluoroscopy withpermanent image storage Access side: Right Catheter: 12 Dominican multipurpose pigtail drain Technique: Image guidance was used to localize the collection. A 5 FrenchYueh needle catheter was used to access the collection under real timeimage guidance, and images were saved to PACS. Aspiration yielded purulentfluid. A guidewire was inserted, and the tract was dilated to accommodate a 12 Dominican pigtail drain. Thecatheter was secured with 2-0 Ethilon suture. The catheter was connectedto Pleur-evac Intraprocedural or immediate post-procedural complications: None FINDINGS: Catheter tip location: Final image was demonstrates the catheter tip to belocated in the right pleural space Additional observations: N/A PLAN: Follow-up with pulmonology. IMPRESSION: 1. Right chest tube placement. us Fidencio Oliva M.D. IMG IR PROCEDURES Final Resul t * Glucose, Body Fluid (01/05/2024 12:50 PM JIG AND FIXTURE REPAIRER) Glucose, BF 49 See Comment mg/dL 01/06/2024 11:13 AM JIG AND FIXTURE REPAIRER DTL Comment: ----ADDITIONAL INFORMATION---- Body fluid glucose [...] cystic lesions. All other fluids refer to www.[employer] for further interpretive information. This test has been modified from the tractor driver's instructions. Its performance characteristics were determined by [facility] in a manner consistent with CLIA requirements. This test has not been cleared or approved by the U.S. Food and Drug Administration. Fluid Type, Glucose PLEURAL 01/05 10:14 AM JIG AND FIXTURE REPAIRER DTL Fluid (Pleural Fluid) 01/05/2024 12:50 PM JIG AND FIXTURE REPAIRER 01/06/2024 10:01 AM JIG AND FIXTURE REPAIRER Fidencio Oliva M.D. LAB BODY FLUIDS AND STOOLS OR DERABLES Final Result [facility] [place] [address] [place] [address], [facility] [address] [place] [address] * Triglycerides, Body Fluid (01/05/2024 12:50 PM JIG AND FIXTURE REPAIRER) Triglycerides, BF 31 See Comment mg/dL 01/06/2024 11:13 AM JIG AND FIXTURE REPAIRER DTL Comment: ----ADDITIONAL INFORMATION---- Pleural fluid triglyceride concentrations > 110 mg/dL are consistent with chylous effusions. Triglyceride concentrations <50 mg/dL are usually not due to chylous effusions. Peritoneal fluid triglyceride concentrations > 187 mg/dL are most consistent with chylous effusion. All other fluids refer to http://www.Ummitech.com for further interpretive information. This test has been modified from the tractor driver's instructions. Its performance characteristics were determined by [facility] in a manner consistent with CLIA requirements. This test has not been cleared or approved by the U.S. Food and Drug Administration. Fluid Type Pleural 01/06/2024 10:14 AM JIG AND FIXTURE REPAIRER DTL Fluid (Pleural Fluid) 01/05/2024 12:50 PM JIG AND FIXTURE REPAIRER 01/06/2024 10:01 AM JIG AND FIXTURE REPAIRER Fidencio Oliva M.D. LAB BODY FLUIDS AND STOOLS OR DERABLES Final Result [facility] [place] [address] [place] [address], [facility] [address] [place] [address] * Protein, Total, Body Fluid (01/05/2024 12:50 PM JIG AND FIXTURE REPAIRER) Protein, Total, BF 2.6 See Comment g/dL 01/06/2024 11:13 AM JIG AND FIXTURE REPAIRER DTL Comment: ----ADDITIONAL INFORMATION---- A pleural fluid [...] clinical findings. All other fluids refer to www.UTILIC[employer]s.com for further interpretive information. This test has been modified from the tractor driver's instructions. Its performance characteristics were determined by [facility] in a manner consistent with CLIA requirements. This test has not been cleared or approved by the U.S. Food and Drug Administration. Fluid Type, Protein, Total PLEURAL 01/06/2024 10:14 AM JIG AND FIXTURE REPAIRER DTL Fluid (Pleural Fluid) 01/05/2024 12:50 PM JIG AND FIXTURE REPAIRER 01/06/2024 10:01 AM JIG AND FIXTURE REPAIRER us Fidencio Oliva M.D. LAB BODY FLUIDS AND STOOLS OR DERABLES Final Result Performing Organization Address City/[facility]/ZIP Co de Phone Number [facility] [place] [address] [place] [address], [place] DTL [facility] [address] [place] [address] * pH, Pleural Fluid (01/05/2024 12:50 PM JIG AND FIXTURE REPAIRER) pH, Pleural Fluid <6.80 Not Applicable pH 01/05/2024 1:59 PM JIG AND FIXTURE REPAIRER MKTO Comment: Clinical guidelines suggest that in parapneumonic pleural effusions, a pH <7.2 indicate the need for tube drainage. Fluid (Pleural Fluid) 01/05/2024 12:50 PM JIG AND FIXTURE REPAIRER 01/05/2024 1:47 PM JIG AND FIXTURE REPAIRER Fidencio Oliva M.D. LAB BODY FLUIDS AND STOOLS OR DERABLES Final Result Performing Organization Address [facility] Co de Phone Number [facility] [address] [place] [address], [facility] MKTO [facility] [place] [address] [place] [address] * Lactate Dehydrogenase (LD), Body Fluid (01/05/2024 12:50 PM JIG AND FIXTURE REPAIRER) Lactate Dehydrogenase (LD), BF >9000 See Comment U/L 01/06/2024 12:17 PM JIG AND FIXTURE REPAIRER DT Comment: ----ADDITIONAL INFORMATION---- Pleural fluid lactate dehydrogenase [...] clinical findings. All other fluids refer to www.[employer].com for further interpretive information. This test has been modified from the tractor driver's instructions. Its performance characteristics were determined by [facility] in a manner consistent with CLIA requirements. This test has not been cleared or approved by the U.S. Food and Drug Administration. Fluid Type, Lactate Dehydrogenase PLEURAL 01/06/2024 10:14 AM JIG AND FIXTURE REPAIRER DTL Fluid (Pleural Fluid) 01/05/2024 12:50 PM JIG AND FIXTURE REPAIRER 01/06/2024 8:29 AM JIG AND FIXTURE REPAIRER Fidencio Oliva M.D. LAB BODY FLUIDS AND STOOLS OR DERABLES Final Result Performing Organization Address [facility] Co de Phone Number [facility] [place] [address] [place] [address], [facility] [address] [place] [address] * Cell Count and Differential, Body Fluid (01/05/2024 12:50 PM JIG AND FIXTURE REPAIRER) Fluid Type Pleural/Thor acentesis 01/05/2024 2:19 PM JIG AND FIXTURE REPAIRER MKTO Gross Appearance Purulent 01/05/20 24 2:40 PM JIG AND FIXTURE REPAIRER MKTO Total Nucleated Cells [id number] /[id number] 01/05/2024 2:40 PM JIG AND FIXTURE REPAIRER MKTO Comment: ----REFERENCE VALUE---- Synovial: <150 Peritoneal: <500 Pleural: <500 Pericardial: <500 ----ADDITIONAL INFORMATION---- This test has been modified from the tractor driver's instructions. Its performance characteristics were determined by [facility] in a manner consistent with CLIA requirements. This test has not been cleared or approved by the U.S. Food and Drug Administration. Neutrophils 100 % 01/05/2024 3:04 PM JIG AND FIXTURE REPAIRER MKTO Comment: ----REFERENCE VALUE---- Synovial: <25% Peritoneal: <25% Pleural: <25% Pericardial: <25% Reviewed by: Dr. Morton 01/05/2024 3:05 PM JIG AND FIXTURE REPAIRER MKTO Fluid (Pleural Fluid) 01/05/2024 12:50 PM JIG AND FIXTURE REPAIRER 01/05/2024 1:47 PM JIG AND FIXTURE REPAIRER us Fidencio Oliva M.D. LAB BODY FLUIDS AND STOOLS OR DERABLES Final Result Performing Organization Address [facility]/ZIP Co de Phone Number [facility] [address] [place] [address], [facility] MKTO [facility] in [address] [address] * Cytology Non-CHECK EMBOSSER (01/05/2024 12:50 PM JIG AND FIXTURE REPAIRER) 01/07/2024 3:19 PM JIG AND FIXTURE REPAIRER HKCY Disclaimer This test has been modified from the tractor driver's instructions. Its performance characteristics were determined by [facility] in a manner consistent with CLIA requirements. This test has not been cleared or approved by the U.S. Food and Drug Administration. 01/07/2024 3:19 PM JIG AND FIXTURE REPAIRER HKCY Report electronically signed by LOLY Schwartz. Ch.B. I verify that I have examined all relevant slides/materials for the specimen(s) and rendered or confirmed the diagnosis. 01/07/2024 3:19 PM JIG AND FIXTURE REPAIRER HKCY Gross Description 50 ml of cloudy hubbard fluid received. Specimen fixed at 2:20 pm on 01-05-2024. 2 slides and cell block prepared. 01/07/2024 3:19 PM JIG AND FIXTURE REPAIRER HKCY Source A. Pleural, fluid 024 3:19 PM JIG AND FIXTURE REPAIRER HKCY Interpretation A. Pleural, fluid (smears/cell block): Negative for malignancy. Acute inflammation. COMMENT Immunohistochemica l stains with appropriate reactive controls was performed on separate slides on cell block. CK7, WT1, calretinin, TTF1, Napsin A, p40, CK20, NKX3.1 and CDX2: Negative Controls reviewed, results acceptable. 01/07/2024 3:19 PM JIG AND FIXTURE REPAIRER HKCY Fluid 01/05/2024 12:5 0 PM JIG AND FIXTURE REPAIRER 01/06/2024 7:16 AM JIG AND FIXTURE REPAIRER us Fidencio Oliva M.D. LAB SURG PATH ORDERABLES Sury l Result [facility] [address] [place] [address], [facility] HKCY [address] [address] * (ABNORMAL) Gram Stain (01/05/2024 12:50 PM JIG AND FIXTURE REPAIRER) Gram Stain White blood cells, Many.(A) 01/05/2024 2:46 PM JIG AND FIXTURE REPAIRER MKTO Gram Stain GRAM POSITIVE COCCI Many. (A) 01/05/2024 2:46 PM JIG AND FIXTURE REPAIRER MKTO Fluid (Pleural Fluid) 01/05/2024 12:50 PM JIG AND FIXTURE REPAIRER 01/05/2024 1:47 PM JIG AND FIXTURE REPAIRER Comment:Specimen Source Site : Fluid us Fidencio Oliva M.D. LAB MICROBIOLOGY - GENERAL OR DERABLES Final Result Performing Organization Address [facility]/ZIP Co de Phone Number [facility] [address] [place] [address], [place] [address] * (ABNORMAL) Morphology Evaluation (01/05/2024 5:52 AM JIG AND FIXTURE REPAIRER) RBC Morphology See Specific Findings 01/05/2024 7:09 AM JIG AND FIXTURE REPAIRER MKTO PLT Morphology Normal 01/05/2024 7:09 AM JIG AND FIXTURE REPAIRER MKTO PLT Estimate Increased(A ) Adequate 01/05/2024 7:09 AM JIG AND FIXTURE REPAIRER MKTO Anisocytosis Slight(A) 01/05/2024 7:09 AM JIG AND FIXTURE REPAIRER MKTO Basophilic Stippling Slight(A) 01/05/2024 7:09 AM JIG AND FIXTURE REPAIRER MKTO Poikilocytosis Slight(A) Not Seen 01/05/2024 7:09 AM JIG AND FIXTURE REPAIRER MKTO Blood 01/05/2024 5:52 AM JIG AND FIXTURE REPAIRER 01/05/2024 6:08 AM JIG AND FIXTURE REPAIRER us Octavio Cavazos, Ch.B. LAB BLOOD ADD-ON F inal Result Performing Organization Address City/[facility]/ZIP Co de Phone Number [facility] [address] [place] [address], [place] [address] * (ABNORMAL) Manual Differential, Blood (01/05/2024 5:52 AM JIG AND FIXTURE REPAIRER) Segmented Neutrophils 89(H) 50 - 75 % 01/05/2024 7:09 AM JIG AND FIXTURE REPAIRER MKTO Lymphocytes % 5(L) 18 - 42 % 01/05/2024 7:09 AM JIG AND FIXTURE REPAIRER MKTO Monocytes 3 2 - 11 % 01/05/2024 7:09 AM JIG AND FIXTURE REPAIRER MKTO Metamyelocytes 2(H) <1 % 01/05/2024 7:09 AM JIG AND FIXTURE REPAIRER MKTO Myelocytes 1(H) <0.5 % 01/05/2024 7:09 AM JIG AND FIXTURE REPAIRER MKTO Manual Absolute Neutrophil Count 17.89(H) 1.56 - 6.45 x10(9)/L 01/05/2024 7:09 AM JIG AND FIXTURE REPAIRER MKTO Comment: ----ADDITIONAL INFORMATION---- The manual absolute neutrophil count is derived from a manual differential count and therefore is not exactly comparable to the automated absolute neutrophil count. Blood 01/05/2024 5:52 AM JIG AND FIXTURE REPAIRER 01/05/2024 6:08 AM JIG AND FIXTURE REPAIRER us Octavio Cavazos, Ch.B. LAB BLOOD ADD-ON F inal Result [facility] [address] [place] [address], [facility] MKTO [facility] [place] [address] * (ABNORMAL) Basic Metabolic Panel (01/05/2024 5:52 AM JIG AND FIXTURE REPAIRER) Pathologist [facility] Potassium, P 3.7 3.6 - 5.2 mmol/L 01/05/2024 6:32 AM JIG AND FIXTURE REPAIRER MKTO Sodium, P 141 135 - 145 mmol/L 01/05/2024 6:32 AM JIG AND FIXTURE REPAIRER MKTO Chloride, P 102 98 - 107 mmol/L 01/05/2024 6:32 AM JIG AND FIXTURE REPAIRER MKTO Bicarbonate, P 25 22 - 29 mmol/L 01/05/2024 6:32 AM JIG AND FIXTURE REPAIRER MKTO Anion Gap, P 14 7 - 15 01/05/2024 6:32 AM JIG AND FIXTURE REPAIRER MKTO BUN (Blood Urea Nitrogen), P 29(H) 8 - 24 mg/dL 01/05/2024 6:32 AM JIG AND FIXTURE REPAIRER MKTO Creatinine 1.66(H) 0.74 - 1.35 mg/dL 01/05/2024 6:32 AM JIG AND FIXTURE REPAIRER MKTO Estimated GFR (eGFR) 40(L) >=60 mL/min/BSA 01/05/2024 6:32 AM JIG AND FIXTURE REPAIRER MKTO Comment: Estimated GFR calculated using the 2020 CKD_EPI creatinine equation. Calcium, Total, P 8.8 8.8 - 10.2 mg/dL 01/05/2024 6:32 AM JIG AND FIXTURE REPAIRER MKTO Glucose, P 100 70 - 140 mg/dL 01/05/2024 6:32 AM JIG AND FIXTURE REPAIRER MKTO Blood (Blood, Venous) 01/05/2024 5:52 AM JIG AND FIXTURE REPAIRER 01/05/2024 6:08 AM JIG AND FIXTURE REPAIRER us Octavio Cavazos, Ch.B. LAB BLOOD ADD-ON F inal Result [facility] [address] [place] [address], [facility] MKTO [facility] [place] [address] * (ABNORMAL) CBC with Differential, Blood (01/05/2024 5:52 AM JIG AND FIXTURE REPAIRER) Hemoglobin 9.8(L) 13.2 - 16.6 g/dL 01/05/2024 7:09 AM JIG AND FIXTURE REPAIRER MKTO Hematocrit 30.8(L) 38.3 - 48.6 % 01/05/2024 7:09 AM JIG AND FIXTURE REPAIRER MKTO Erythrocytes 3.30(L) 4.35 - 5.65 x10(12)/ L 01/05/2024 7:09 AM JIG AND FIXTURE REPAIRER MKTO MCV 93.3 78.2 - 97.9 fL 01/05/2024 7:09 AM JIG AND FIXTURE REPAIRER MKTO RBC Distrib Width 15.2(H) 11.8 - 14.5 % 01/05/2024 7:09 AM JIG AND FIXTURE REPAIRER MKTO Platelet Count 362(H) 135 - 317 x10(9)/L 01/05/2024 7:09 AM JIG AND FIXTURE REPAIRER MKTO Leukocytes 20.1(H) 3.4 - 9.6 x10(9)/L 01/05/2024 7:09 AM JIG AND FIXTURE REPAIRER MKTO Neutrophils See manual differential 1.56 - 6.45 x10(9)/L 01/05/2024 7:09 AM JIG AND FIXTURE REPAIRER MKTO Blood (Blood, Venous) 01/05/2024 5:52 AM JIG AND FIXTURE REPAIRER 01/05/2024 6:08 AM JIG AND FIXTURE REPAIRER us Octavio Cavazos, BEliel LAB BLOOD ADD-ON F inal Result [facility] [address] [place] [address], [facility] MKTO [facility] [place] [address] [place] [address] * Pneumonia Panel, PCR (01/04/2024 7:45 PM JIG AND FIXTURE REPAIRER) Specimen Source SPUTUM 10:43 PM JIG AND FIXTURE REPAIRER MKTO Acinetobacter calcoaceticus-balbir annii complex Undetected Undetected copies/mL 01/04/2024 10:43 PM JIG AND FIXTURE REPAIRER MKTO Enterobacter cloacae complex Undetected Undetected copies/mL 01/04/2024 10:43 PM JIG AND FIXTURE REPAIRER MKTO Escherichia coli Undetected Undetected copies/mL 01/04/2024 10:43 PM JIG AND FIXTURE REPAIRER MKTO Haemophilus influenzae Undetected Undetected copies/mL 01/04/2024 10:43 PM JIG AND FIXTURE REPAIRER MKTO Klebsiella aerogenes Undetected Undetected copies/mL 01/04/2024 10:43 PM JIG AND FIXTURE REPAIRER MKTO Klebsiella oxytoca Undetected Undetected copies/mL 01/04/2024 10:43 PM JIG AND FIXTURE REPAIRER MKTO Klebsiella pneumoniae complex Undetected Undetected copies/mL 01/04/2024 10:43 PM JIG AND FIXTURE REPAIRER MKTO Moraxella catarrhalis Undetected Undetected copies/mL 01/04/2024 10:43 PM JIG AND FIXTURE REPAIRER MKTO Proteus species Undetected Undetected copies/mL 01/04/2024 10:43 PM JIG AND FIXTURE REPAIRER MKTO Pseudomonas aeruginosa Undetected Undetected copies/mL 01/04/2024 10:43 PM JIG AND FIXTURE REPAIRER MKTO Serratia marcescens Undetected Undetected copies/mL 01/04/2024 10:43 PM JIG AND FIXTURE REPAIRER MKTO Staphylococcus aureus complex Undetected Undetected copies/mL 01/04/2024 10:43 PM JIG AND FIXTURE REPAIRER MKTO Streptococcus agalactiae Undetected Undetected copies/mL 01/04/2024 10:43 PM JIG AND FIXTURE REPAIRER MKTO Streptococcus pneumoniae Undetected Undetected copies/mL 01/04/2024 10:43 PM JIG AND FIXTURE REPAIRER MKTO Streptococcus pyogenes Undetected Undetected copies/mL 01/04/2024 10:43 PM JIG AND FIXTURE REPAIRER MKTO Chlamydia pneumoniae Undetected Undetected 01/04/2024 10:43 PM JIG AND FIXTURE REPAIRER MKTO Legionella pneumophila Undetected Undetected 01/04/2024 10:43 PM JIG AND FIXTURE REPAIRER MKTO Mycoplasma pneumoniae Undetected Undetected 01/04/2024 10:43 PM JIG AND FIXTURE REPAIRER MKTO Adenovirus Undetected Undetected 01/04/2024 10:43 PM JIG AND FIXTURE REPAIRER MKTO Coronavirus Undetected Undetected 01/04/2024 10:43 PM JIG AND FIXTURE REPAIRER MKTO Human Metapneumovirus Undetected Undetected 01/04/2024 10:43 PM JIG AND FIXTURE REPAIRER MKTO Human Rhinovirus/Enterov irus Undetected Undetected 01/04/2024 10:43 PM JIG AND FIXTURE REPAIRER MKTO Influenza A Undetected Undetected 01/04/2024 10:43 PM JIG AND FIXTURE REPAIRER MKTO Influenza B Undetected Undetected 01/04/2024 10:43 PM JIG AND FIXTURE REPAIRER MKTO Parainfluenza Undetected Undetected 01/04/2024 10:43 PM JIG AND FIXTURE REPAIRER MKTO Respiratory Syncytial Virus Undetected Undetected 01/04/2024 10:43 PM JIG AND FIXTURE REPAIRER MKTO Comment: ----ADDITIONAL INFORMATION---- This assay is performed using the FDA-cleared FilmArray Pneumonia Panel (PN) ([employer].). Any initial empiric treatment guidance provided in [...] SARS-CoV-2. Sputum (Sputum) 01/04/2024 7 :45 PM JIG AND FIXTURE REPAIRER 01/04/2024 7:55 PM JIG AND FIXTURE REPAIRER us Octavio Cavazos, Ch.B. LAB MICROBIOLOGY - GENERAL ORDERABLES Final Result [facility] [place] [address], [facility] MKTO [facility] [address] [address] * (ABNORMAL) Gram Stain (01/04/2024 7:45 PM JIG AND FIXTURE REPAIRER) Gram Stain White blood cells, Many.(A) 01/04/2024 8:40 PM JIG AND FIXTURE REPAIRER MKTO Gram Stain GRAM POSITIVE COCCI Many. (A) 01/04/2024 8:40 PM JIG AND FIXTURE REPAIRER MKTO Sputum 01/04/2024 7:45 PM JIG AND FIXTURE REPAIRER 01/04/2024 7:55 PM JIG AND FIXTURE REPAIRER Comment:Specimen Source Site : Sputum Octavio Cavazos, Ch.B. LAB MICROBIOLOGY - GENERAL ORDERABLES Final Result Performing Organization Address [facility] Co de Phone Number [facility] [address] [place] [address], [place] [address] * Bacterial Culture, Aerobic + Susceptibility, Respiratory (01/04/2024 7:45 PM JIG AND FIXTURE REPAIRER) Pathologist [facility] Bacterial Culture, Aerobic, Resp No growth after 2 days of incubation. 01/06/2024 8:19 AM JIG AND FIXTURE REPAIRER TO Sputum (Sputum) 01/04/2024 7 :45 PM JIG AND FIXTURE REPAIRER 01/04/2024 7:55 PM JIG AND FIXTURE REPAIRER Comment:Specimen Source Site : Sputum Octavio Cavazos, Ch.B. LAB MICROBIOLOGY - GENERAL ORDERABLES Final Result Performing Organization Address [facility] Co de Phone Number [facility] [address] [place] [address], [place] [address] * MRSA PCR, Nasal (01/04/2024 7:45 PM JIG AND FIXTURE REPAIRER) Pathologist [facility] MRSA Screen, Nasal by PCR Negative Negative 01/04/2024 9:24 PM JIG AND FIXTURE REPAIRER [facility] Swab (Nares) 01/04/2024 7:45 PM JIG AND FIXTURE REPAIRER 01/04/2024 7:53 PM JIG AND FIXTURE REPAIRER Frank Mccall M.D. LAB MICROBIOLOGY - GENERAL ORDERABLES Final Result Performing Organization Address City/[facility] Co de Phone Number [facility] [address] [place] [address], [place] MKTO [facility] [place] [address] [place] [address] * (TTE) 2D ECHO DOPPLER COLOR AND CONTRAST (01/04/2024 10:38 AM JIG AND FIXTURE REPAIRER) Ejection Fraction 59 MC CV EIMS Sinus [...] Region Laterality Modality Echocardiography 01/04/2024 9:49 AM JIG AND FIXTURE REPAIRER Impressions 01/04/2024 11:49 AM JIG AND FIXTURE REPAIRER Echo performed at the patient's bedside. LEFT [...] per Echocardiography Contrast Administration Protocol Reference Document [id number] Rev 05/30/2021. Patient met an inclusion criterion and did not have contraindications in screening sections. For the complete report, see the Order-Level Documents. Narrative 01/04/2024 11:49 AM JIG AND FIXTURE REPAIRER For the complete report, see the Order-Level [...] administered per EchocardiographyContrast Administration Protocol Reference Document [id number] Rev05/30/2021. Patient met an inclusion criterion and did not havecontraindications in screening sections. For the complete report, see the Order-Level Documents. us Jet Palomares M.D. CV ECHO PROCEDURES Sury kaye Result * (ABNORMAL) Microscopic Automated (01/04/2024 5:56 AM JIG AND FIXTURE REPAIRER) White Blood Cells 4-10(A) /hpf 01/04/2024 6:58 AM JIG AND FIXTURE REPAIRER MKTO Comment: ----REFERENCE VALUE---- Males: 0-3 Females: 0-10 Unknown: 0-10 Red Blood Cells None Seen 0 - 2 /hpf 01/04/2024 6:58 AM JIG AND FIXTURE REPAIRER MKTO Hyaline Casts 4-10 /lpf 01/04/2024 6:58 AM JIG AND FIXTURE REPAIRER MKTO Squamous Cells Occ-3 /hpf 01/04/2024 6:58 AM JIG AND FIXTURE REPAIRER MKTO Urine 01/04/2024 5:56 AM JIG AND FIXTURE REPAIRER 01/04/2024 6:02 AM JIG AND FIXTURE REPAIRER Jet Palomares M.D. LAB URINE ORDERABLES Fi nal Result Performing Organization Address [facility] Co de Phone Number [facility] [address] [place] [address], [place] [address] * (ABNORMAL) Protein/Creatinine Ratio, Random, Urine (01/04/2024 5:56 AM JIG AND FIXTURE REPAIRER) Protein, Total, Random, U 33 mg/dL 01/04/2024 6:54 AM JIG AND FIXTURE REPAIRER MKTO Creatinine, Random, U 94 16 - 326 mg/dL 01/04/2024 6:54 AM JIG AND FIXTURE REPAIRER MKTO Protein/Creati nine Ratio 0.35(H) <0.18 mg/mg 01/04/2024 6:54 AM JIG AND FIXTURE REPAIRER MKTO Urine (Urine, Midstream) 01/04/2024 5:56 AM JIG AND FIXTURE REPAIRER 01/04/2024 6:02 AM JIG AND FIXTURE REPAIRER us Jet Palomares M.D. LAB URINE ORDERABLES Fi nal Result Performing Organization Address City/[facility]/ZIP Co de Phone Number [facility] [address] [place] [address], [place] [address] * (ABNORMAL) Urinalysis with Microscopic if Indicated (01/04/2024 5:56 AM JIG AND FIXTURE REPAIRER) Source Urine, Urine, Midstream 01/04/2024 6:03 AM JIG AND FIXTURE REPAIRER MKTO Clarity Cloudy(A) Clear 01/04/2024 6:37 AM JIG AND FIXTURE REPAIRER MKTO Color Yellow 01/04/2024 6:37 AM JIG AND FIXTURE REPAIRER MKTO Comment: ----REFERENCE VALUE---- Colorless Yellow Veronica Blood Negative Negative 01/04/2024 6:37 AM JIG AND FIXTURE REPAIRER MKTO Nitrite Negative Negative 01/04/2024 6:37 AM JIG AND FIXTURE REPAIRER MKTO Leukocyte Esterase Negative Negative 01/04/2024 6:37 AM JIG AND FIXTURE REPAIRER MKTO Protein 30(A) mg/dL 01/04/2024 6:37 AM JIG AND FIXTURE REPAIRER MKTO Comment: ----REFERENCE VALUE---- Negative Trace Glucose Negative Negative mg/dL 01/04/2024 6:37 AM JIG AND FIXTURE REPAIRER MKTO Ketone Trace(A) Negative mg/dL 01/04/2024 6:37 AM JIG AND FIXTURE REPAIRER MKTO Bilirubin Negative Negative 01/04/2024 6:37 AM JIG AND FIXTURE REPAIRER MKTO pH 5.0 5.0 - 8.0 01/04/2024 6:37 AM JIG AND FIXTURE REPAIRER MKTO Specific [place] 1.014 1.001 - 1.035 01/04/2024 6:37 AM JIG AND FIXTURE REPAIRER MKTO Urobilinogen 0.2 0.2 - 1.0 mg/dL 01/04/2024 6:37 AM JIG AND FIXTURE REPAIRER MKTO Urine (Urine, Midstream) 01/04/2024 5:56 AM JIG AND FIXTURE REPAIRER 01/04/2024 6:02 AM JIG AND FIXTURE REPAIRER us Jet Palomares M.D. LAB URINE ORDERABLES Fi nal Result [facility] [address] [place] [address], [facility] [address] * Sodium, Random, Urine (01/04/2024 5:56 AM JIG AND FIXTURE REPAIRER) Sodium, Random, U 28 mmol/L 01/04/2024 6:54 AM JIG AND FIXTURE REPAIRER MKTO Comment: ----REFERENCE VALUE---- Random urine sodium may be interpreted in conjunction with serum sodium, using both values to calculate fractional excretion of sodium. Urine (Urine, Midstream) 01/04/2024 5:56 AM JIG AND FIXTURE REPAIRER 01/04/2024 6:01 AM JIG AND FIXTURE REPAIRER Fausto Bey M.D. LAB URINE ORDERABLES Final Resu lt Performing Organization Address [facility] Co de Phone Number [facility] [address] [place] [address], [place] [address] * (ABNORMAL) NT-Pro B-Type Natriuretic Peptide (BNP) (01/04/2024 4:56 AM JIG AND FIXTURE REPAIRER) NT-Pro BNP 5163(H) <=540 pg/mL 01/04/2024 8:20 AM JIG AND FIXTURE REPAIRER MKTO Comment: NT-proBNP values less than 300 [...] failure. Blood (Blood, Venous) 01/04/2024 4:56 AM JIG AND FIXTURE REPAIRER 01/04/2024 8:01 AM JIG AND FIXTURE REPAIRER Portia Ramos M.D., Ph.D. LAB BLOOD ADD-ON Final Res ult Performing Organization Address [facility]/ZIP Co de Phone Number [facility] [address] [place] [address], [place] [address] * Parathyroid Hormone (PTH) (01/04/2024 4:56 AM JIG AND FIXTURE REPAIRER) Parathyroid Hormone (PTH), S 43 15 - 65 pg/mL 01/04/2024 8:32 AM JIG AND FIXTURE REPAIRER MKTO Comment: Biotin has been identified by the tractor driver as a potential interfering substance. Higher concentrations of biotin may be found in multivitamins, hair/nail supplements, and workout supplements. If the result does not match clinical observations, repeat testing after patient refrains from the use of supplements for at least 12 hours. Blood (Blood, Venous) 01/04/2024 4:56 AM JIG AND FIXTURE REPAIRER 01/04/2024 8:02 AM JIG AND FIXTURE REPAIRER us Portia Ramos M.D., Ph.D. LAB BLOOD ADD-ON Final Res ult Performing Organization Address [facility] Co de Phone Number [facility] [address] [place] [address], [place] [address] * (ABNORMAL) Iron and Total Iron-Binding Capacity (01/04/2024 4:56 AM JIG AND FIXTURE REPAIRER) Iron 38(L) 50 - 150 mcg/dL 01/04/2024 8:32 AM JIG AND FIXTURE REPAIRER TO Total Iron Binding Capacity 79(L) 250 - 400 mcg/dL 01/04/2024 8:32 AM JIG AND FIXTURE REPAIRER MKTO Percent Saturation 48 14 - 50 % 01/04/2024 8:32 AM JIG AND FIXTURE REPAIRER MKTO Blood (Blood, Venous) 01/04/2024 4:56 AM JIG AND FIXTURE REPAIRER 01/04/2024 8:02 AM JIG AND FIXTURE REPAIRER us Portia Ramos M.D., Ph.D. LAB BLOOD ADD-ON Final Res ult Performing Organization Address [facility] Co de Phone Number [facility] [address] [place] [address], [place] [address] * (ABNORMAL) Ferritin (01/04/2024 4:56 AM JIG AND FIXTURE REPAIRER) Ferritin, S 1703(H) 31 - 409 mcg/L 01/04/2024 8:32 AM JIG AND FIXTURE REPAIRER MKTO Comment: Biotin has been identified by the tractor driver as a potential interfering substance. Higher concentrations of biotin may be found in multivitamins, hair/nail supplements, and workout supplements. If the result does not match clinical observations, repeat testing after patient refrains from the use of supplements for at least 12 hours. Blood (Blood, Venous) 01/04/2024 4:56 AM JIG AND FIXTURE REPAIRER 01/04/2024 8:02 AM JIG AND FIXTURE REPAIRER us Portia Ramos M.D., Ph.D. LAB BLOOD ADD-ON Final Res ult [facility] [place] [address], [facility] MKTO [facility] [place] [address] * (ABNORMAL) Basic Metabolic Panel (01/04/2024 4:56 AM JIG AND FIXTURE REPAIRER) Potassium, P 3.6 3.6 - 5.2 mmol/L 01/04/2024 5:39 AM JIG AND FIXTURE REPAIRER MKTO Sodium, P 141 135 - 145 mmol/L 01/04/2024 5:39 AM JIG AND FIXTURE REPAIRER MKTO Chloride, P 104 98 - 107 mmol/L 01/04/2024 5:39 AM JIG AND FIXTURE REPAIRER MKTO Bicarbonate, P 19(L) 22 - 29 mmol/L 01/04/2024 5:39 AM JIG AND FIXTURE REPAIRER MKTO Anion Gap, P 18(H) 7 - 15 01/04/2024 5:39 AM JIG AND FIXTURE REPAIRER MKTO BUN (Blood Urea Nitrogen), P 63(H) 8 - 24 mg/dL 01/04/2024 5:39 AM JIG AND FIXTURE REPAIRER MKTO Creatinine 2.45(H) 0.74 - 1.35 mg/dL 01/04/2024 5:39 AM JIG AND FIXTURE REPAIRER MKTO Estimated GFR (eGFR) 25(L) >=60 mL/min/BSA 01/04/2024 5:39 AM JIG AND FIXTURE REPAIRER MKTO Comment: Estimated GFR calculated using the 2020 CKD_EPI creatinine equation. Calcium, Total, P 8.1(L) 8.8 - 10.2 mg/dL 01/04/2024 5:39 AM JIG AND FIXTURE REPAIRER MKTO Glucose, P 90 70 - 140 mg/dL 01/04/2024 5:39 AM JIG AND FIXTURE REPAIRER MKTO Blood (Blood, Venous) 01/04/2024 4:56 AM JIG AND FIXTURE REPAIRER 01/04/2024 5:15 AM JIG AND FIXTURE REPAIRER us Octavio Cavazos, ChElielB. LAB BLOOD ADD-ON F inal Result [facility] [address] [place] [address], [facility] MKTO [facility] [place] [address] [place] [address] * (ABNORMAL) CBC with Differential, Blood (01/04/2024 4:56 AM JIG AND FIXTURE REPAIRER) Hemoglobin 8.7(L) 13.2 - 16.6 g/dL 01/04/2024 5:20 AM JIG AND FIXTURE REPAIRER MKTO Hematocrit 26.1(L) 38.3 - 48.6 % 01/04/2024 5:20 AM JIG AND FIXTURE REPAIRER MKTO Erythrocytes 2.89(L) 4.35 - 5.65 x10(12)/L 01/04/2024 5:20 AM JIG AND FIXTURE REPAIRER MKTO MCV 90.3 78.2 - 97.9 fL 01/04/2024 5:20 AM JIG AND FIXTURE REPAIRER MKTO RBC Distrib Width 15.3(H) 11.8 - 14.5 % 01/04/2024 5:20 AM JIG AND FIXTURE REPAIRER MKTO Platelet Count 429(H) 135 - 317 x10(9)/L 01/04/2024 5:20 AM JIG AND FIXTURE REPAIRER MKTO Leukocytes 20.6(H) 3.4 - 9.6 x10(9)/L 01/04/2024 5:20 AM JIG AND FIXTURE REPAIRER MKTO Neutrophils 18.32(H) 1.56 - 6.45 x10(9)/L 01/04/2024 5:20 AM JIG AND FIXTURE REPAIRER MKTO Lymphocytes 1.03 0.95 - 3.07 x10(9)/L 01/04/2024 5:20 AM JIG AND FIXTURE REPAIRER MKTO Monocytes 1.16(H) 0.26 - 0.81 x10(9)/L 01/04/2024 5:20 AM JIG AND FIXTURE REPAIRER MKTO Eosinophils 0.09 0.03 - 0.48 x10(9)/L 01/04/2024 5:20 AM JIG AND FIXTURE REPAIRER MKTO Basophils 0.04 0.01 - 0.08 x10(9)/L 01/04/2024 5:20 AM JIG AND FIXTURE REPAIRER MKTO Blood (Blood, Venous) 01/04/2024 4:56 AM JIG AND FIXTURE REPAIRER 01/04/2024 5:15 AM JIG AND FIXTURE REPAIRER Octavio Cavazos, Ch.B. LAB BLOOD ADD-ON F inal Result Performing Organization Address [facility] Co de Phone Number [facility] [address] [place] [address], [facility] MKTO [facility] [place] [address] [place] [address] * Cytology Non-CHECK EMBOSSER (01/03/2024 5:09 PM JIG AND FIXTURE REPAIRER) 01/05/2024 8:19 AM JIG AND FIXTURE REPAIRER HKCY Report electronically signed by Rito Rizvi MD I verify that I have examined all relevant slides/materia ls for the specimen(s) and rendered or confirmed the diagnosis. 01/05/2024 8:19 AM JIG AND FIXTURE REPAIRER HKCY Gross Description 60 ml of creamy fluid received. Specimen fixed at 6:30 am on 01-04-2024. 2 slides and cell block prepared. 01/05/2024 8:19 AM JIG AND FIXTURE REPAIRER [facility] Collection Procedure [id number] 01/05/2024 8:19 AM JIG AND FIXTURE REPAIRER HK[facility] Source A. Pleural, Right, fluid 01/05/2024 8:19 AM JIG AND FIXTURE REPAIRER HKCY Interpretation A. Pleural, Right, fluid (smears/cell block): Negative for malignancy. Acute inflammation. Clusters of coccal bacteria. 01/05/2024 8:19 AM JIG AND FIXTURE REPAIRER HKCY Fluid (Pleural Fluid, Right) 01/03/2024 5:09 PM JIG AND FIXTURE REPAIRER 01/04/2024 7:17 AM JIG AND FIXTURE REPAIRER us Octavio Cavazos, Ch.B. LAB SURG PATH ORDE RABLES Final Result Performing Organization Address [facility]/ZIP Co de Phone Number [facility] [address] [place] [address], [facility] [address] [facility] [address] [place] [address] * US Thoracentesis Right with Imaging Guidance (01/03/2024 5:04 PM JIG AND FIXTURE REPAIRER) Anatomical Region Laterality Modality Chest, Ultrasound RST LOS, U ltrasound ARZ LOS, Procedure FLA LOS, Abdominal FLA LOS, Procedural, Procedural NWWI LOS Right Ultrasound Impressions 01/04/2024 8:03 AM JIG AND FIXTURE REPAIRER Successful ultrasound guided diagnostic and therapeutic right thoracentesis. Narrative 01/04/2024 8:03 AM JIG AND FIXTURE REPAIRER EXAM: US THORACENTESIS RIGHT WITH IMAGING GUIDANCE [...] Patient education provided by the care steam conditioner operator. Ready to learn, no apparent learning barriers [...] Patient education provided by the care steam conditioner operator. Ready to learn, no apparent learningbarriers were identified. Post-procedure care explained; patient expressedunderstanding of the content. IMPRESSION: Successful ultrasound guided diagnostic and therapeutic rightthoracentesis. us Octavio Cavazos Ch.B. IM US PROCEDURES Final Result * (ABNORMAL) Basic Metabolic Panel (01/03/2024 1:56 PM JIG AND FIXTURE REPAIRER) Potassium, P 3.3(L) 3.6 - 5.2 mmol/L 01/03/2024 2:21 PM JIG AND FIXTURE REPAIRER MKTO Sodium, P 140 135 - 145 mmol/L 01/03/2024 2:21 PM JIG AND FIXTURE REPAIRER MKTO Chloride, P 102 98 - 107 mmol/L 01/03/2024 2:21 PM JIG AND FIXTURE REPAIRER MKTO Bicarbonate, P 21(L) 22 - 29 mmol/L 01/03/2024 2:21 PM JIG AND FIXTURE REPAIRER MKTO Anion Gap, P 17(H) 7 - 15 01/03/2024 2:21 PM JIG AND FIXTURE REPAIRER MKTO BUN (Blood Urea Nitrogen), P 55(H) 8 - 24 mg/dL 01/03/2024 2:21 PM JIG AND FIXTURE REPAIRER MKTO Creatinine 2.17(H) 0.74 - 1.35 mg/dL 01/03/2024 2:21 PM JIG AND FIXTURE REPAIRER MKTO Estimated GFR (eGFR) 29(L) >=60 mL/min/BSA 01/03/2024 2:21 PM JIG AND FIXTURE REPAIRER MKTO Comment: Estimated GFR calculated using the 2020 CKD_EPI creatinine equation. Calcium, Total, P 8.1(L) 8.8 - 10.2 mg/dL 01/03/2024 2:21 PM JIG AND FIXTURE REPAIRER MKTO Glucose, P 93 70 - 140 mg/dL 01/03/2024 2:21 PM JIG AND FIXTURE REPAIRER MKTO Blood (Blood, Venous) 01/03/2024 1:56 PM JIG AND FIXTURE REPAIRER 01/03/2024 2:02 PM JIG AND FIXTURE REPAIRER Jet Palomares M.D. LAB BLOOD ADD-ON Final Result Performing Organization Address [facility]/ZIP Co de Phone Number [facility] [address] [place] [address], [place] [address] * Lactate for Sepsis with Reflex (01/03/2024 10:52 AM JIG AND FIXTURE REPAIRER) Lactate, B 1.1 0.5 - 2.2 mmol/L 01/03/2024 11:01 AM JIG AND FIXTURE REPAIRER [facility] Blood (Blood, Venous) 01/03/2024 10:52 AM JIG AND FIXTURE REPAIRER 01/03/2024 10:58 AM JIG AND FIXTURE REPAIRER Octavio Cavazos, Ch.B. LAB BLOOD NON ADD- ON Final Result Performing Organization Address [facility] Co de Phone Number [facility] [address] [place] [address], [address] [address] * (ABNORMAL) Albumin (01/03/2024 10:51 AM JIG AND FIXTURE REPAIRER) Albumin, P 3.0(L) 3.5 - 5.0 g/dL 01/03/2024 1:15 PM JIG AND FIXTURE REPAIRER TO Blood (Blood, Venous) 01/03/2024 10:51 AM JIG AND FIXTURE REPAIRER 01/03/2024 1:02 PM JIG AND FIXTURE REPAIRER Jet Palomares M.D. LAB BLOOD ADD-ON Final Result Performing Organization Address City/[facility]/ZIP Co de Phone Number [facility] [address] [place] [address], [address] [address] * Vitamin D, Immunoassay, Total, Serum (01/03/2024 6:42 AM JIG AND FIXTURE REPAIRER) Vitamin D, Immunoassay, Total, S 23 20 - 80 ng/mL 01/04/2024 8:37 AM JIG AND FIXTURE REPAIRER MKTO Comment: Optimum levels within the healthy population are 20-50, patients with bone disease may benefit from high levels within this range Blood (Blood, Venous) 01/03/2024 6:42 AM JIG AND FIXTURE REPAIRER 01/04/2024 8:02 AM JIG AND FIXTURE REPAIRER us Portia Ramos M.D., Ph.D. LAB BLOOD ADD-ON Final Res ult Performing Organization Address [facility]/ZIP Co de Phone Number [facility] [address] [place] [address] * (ABNORMAL) NT-Pro B-Type Natriuretic Peptide (BNP) (01/03/2024 6:42 AM JIG AND FIXTURE REPAIRER) Pathologist [facility] NT-Pro BNP 4710(H) <=540 pg/mL 01/03/2024 7:46 AM JIG AND FIXTURE REPAIRER MKTO Comment: NT-proBNP values less than 300 [...] absence of renal failure. Blood (Blood, Venous) 01/03/2024 6:42 AM JIG AND FIXTURE REPAIRER 01/03/2024 6:55 AM JIG AND FIXTURE REPAIRER us Jet Palomares M.D. LAB BLOOD ADD-ON Final Result Performing Organization Address [facility] Co de Phone Number [facility] [address] [place] [address] * (ABNORMAL) Calcium, Ionized (01/03/2024 6:42 AM JIG AND FIXTURE REPAIRER) Pathologist [facility] Calcium, Ionized, B 4.31(L) 4.65 - 5.30 mg/dL 01/03/2024 7:00 AM JIG AND FIXTURE REPAIRER MK Blood 01/03/2024 6:42 AM JIG AND FIXTURE REPAIRER 01/03/2024 6:55 AM JIG AND FIXTURE REPAIRER us Deanna Lewis APRN, C.N.P., D.N.P., M.S.N. LAB B LOOD NON ADD-ON Final Result Performing Organization Address City/[facility]/ZIP Co de Phone Number [facility] [address] [place] [address] * pH (01/03/2024 6:42 AM JIG AND FIXTURE REPAIRER) [facility] pH 7.43 7.35 - 7.45 pH 01/03/2024 7:00 AM JIG AND FIXTURE REPAIRER [facility] Blood 01/03/2024 6:42 AM JIG AND FIXTURE REPAIRER 01/03/2024 6:55 AM JIG AND FIXTURE REPAIRER us Deanna Lewis APRN, C.N.P., D.N.P., M.S.N. LAB H ISTORICAL ORDERS Final Result Performing Organization Address City/[facility] Co de Phone Number [facility] [address] [place] [address] * (ABNORMAL) QuantiFERON-Tb Gold Plus, Blood (01/03/2024 6:42 AM JIG AND FIXTURE REPAIRER) [facility] QuantiFERON-TB Gold Plus Result Indetermi parviz(A) Negative 01/07/2024 2:48 PM JIG AND FIXTURE REPAIRER [facility] Comment: Indeterminate due to a low interferon-gamma level in the mitogen (positive control) tube. This may occur due to a low lymphocyte count, reduced lymphocyte activity or inability of the patient's lymphocytes to generate interferon-gamma. The reference range for the 'Mitogen minus Nil Result' is >=0.5 IU/mL. TB1 Ag minus Nil Result 0.00 IU/mL 01/07/2024 2:48 PM JIG AND FIXTURE REPAIRER [facility] TB2 Ag minus Nil Result 0.00 IU/mL 01/07/2024 2:48 PM JIG AND FIXTURE REPAIRER [facility] Mitogen minus Nil Result 0.01 IU/mL 01/07/2024 2:48 PM JIG AND FIXTURE REPAIRER [facility] Nil Result 0.04 IU/mL 01/07/2024 2:48 PM JIG AND FIXTURE REPAIRER [facility] Blood (Blood, Venous) 01/03/2024 6:42 AM JIG AND FIXTURE REPAIRER 01/04/2024 10:57 AM JIG AND FIXTURE REPAIRER Narrative [facility] - 01/07/2024 2:48 PM JIG AND FIXTURE REPAIRER Specimen Information: Specimen ID: [id number] Specimen Type: Blood Specimen Collection Start Date: 01/03/2024 6:42 AM Specimen Received Date: 01/04/2024 10:57 AM Specimen ID: [id number] Specimen Type: Blood Specimen Collection Start Date: 01/03/2024 6:42 AM Specimen Received Date: 01/04/2024 10:57 AM Specimen ID: [id number] Specimen Type: Blood Specimen Collection Start Date: 01/03/2024 6:42 AM Specimen Received Date: 01/04/2024 10:57 AM Specimen ID: [id number] Specimen Type: Blood Specimen Collection Start Date: 01/03/2024 6:42 AM Specimen Received Date: 01/04/2024 10:57 AM us Jet Palomares M.D. LAB MICROBIOLOGY - BLOO D ORDERABLES Final Result [facility] [address] [place] [address], [facility] in [address] [address] * HBc Total Ab, Serum (01/03/2024 6:42 AM JIG AND FIXTURE REPAIRER) Pathologist [facility] HBc Total Ab, S Negative Negative 01/04/2024 11:52 AM JIG AND FIXTURE REPAIRER [facility] Blood (Blood, Peripheral Draw) 01/03/2024 6:42 AM JIG AND FIXTURE REPAIRER 01/04/2024 7:28 AM JIG AND FIXTURE REPAIRER us Jet Palomares M.D. LAB MICROBIOLOGY - BLOO D ORDERABLES Final Result Performing Organization Address City/[facility]/ZIP Co de Phone Number [facility] [address] [place] [address] [facility] [address] [place] [address] * HBs Antibody, Serum (01/03/2024 6:42 AM JIG AND FIXTURE REPAIRER) HBs Antibody, S Negative 7:57 AM JIG AND FIXTURE REPAIRER [facility] Comment: Patient is presumed NOT to be immune to infection with HBV. Consumption of high-dose biotin supplement within 12 hours of blood collection for this test can cause false-negative results. ----REFERENCE VALUE---- Unvaccinated: Negative Vaccinated: Positive HBs Antibody, Quantitative, S <3.50 mIU/mL 01/03/2024 7:57 AM JIG AND FIXTURE REPAIRER [facility] Comment: ----REFERENCE VALUE---- <8.50: Negative 8.50-11.49: Indeterminate >=11.50: Positive Blood (Blood, Peripheral Draw) 01/03/2024 6:42 AM JIG AND FIXTURE REPAIRER 01/03/2024 6:55 AM JIG AND FIXTURE REPAIRER us Jet Palomares M.D. LAB MICROBIOLOGY - BLOO D ORDERABLES Final Result Performing Organization Address City/[facility]/ZIP Co de Phone Number [facility] [address] [place] [address], [facility] MKTO [facility] in [address] [address] * Hepatitis B Surface Antigen (01/03/2024 6:42 AM JIG AND FIXTURE REPAIRER) HBs Antigen, S Nonreactive Nonreactive 01/03/2024 8:07 AM JIG AND FIXTURE REPAIRER [facility] Blood (Blood, Peripheral Draw) 01/03/2024 6:42 AM JIG AND FIXTURE REPAIRER 01/03/2024 6:55 AM JIG AND FIXTURE REPAIRER us Jet Palomares M.D. LAB MICROBIOLOGY - BLOO D ORDERABLES Final Result [facility] [address] [place] [address], [facility] MKTO [facility] in [place] [address] [place] [address] * (ABNORMAL) CBC with Differential, Blood (01/03/2024 6:42 AM JIG AND FIXTURE REPAIRER) Hemoglobin 8.7(L) 13.2 - 16.6 g/dL 01/03/2024 7:01 AM JIG AND FIXTURE REPAIRER [facility] Hematocrit 25.9(L) 38.3 - 48.6 % 01/03/2024 7:01 AM JIG AND FIXTURE REPAIRER [facility] Erythrocytes 2.91(L) 4.35 - 5.65 x10(12)/L 01/03/2024 7:01 AM JIG AND FIXTURE REPAIRER [facility] MCV 89.0 78.2 - 97.9 fL 01/03/2024 7:01 AM JIG AND FIXTURE REPAIRER [facility] RBC Distrib Width 15.2(H) 11.8 - 14.5 % 01/03/2024 7:01 AM JIG AND FIXTURE REPAIRER [facility] Platelet Count 419(H) 135 - 317 x10(9)/L 01/03/2024 7:01 AM JIG AND FIXTURE REPAIRER [facility] Leukocytes 24.2(H) 3.4 - 9.6 x10(9)/L 01/03/2024 7:01 AM JIG AND FIXTURE REPAIRER [facility] Neutrophils 22.28(H) 1.56 - 6.45 x10(9)/L 01/03/2024 7:01 AM JIG AND FIXTURE REPAIRER [facility] Lymphocytes 0.57(L) 0.95 - 3.07 x10(9)/L 01/03/2024 7:01 AM JIG AND FIXTURE REPAIRER [facility] Monocytes 1.15(H) 0.26 - 0.81 x10(9)/L 01/03/2024 7:01 AM JIG AND FIXTURE REPAIRER [facility] Eosinophils 0.09 0.03 - 0.48 x10(9)/L 01/03/2024 7:01 AM JIG AND FIXTURE REPAIRER [facility] Basophils 0.07 0.01 - 0.08 x10(9)/L 01/03/2024 7:01 AM JIG AND FIXTURE REPAIRER [facility] Blood (Blood, Venous) 01/03/2024 6:42 AM JIG AND FIXTURE REPAIRER 01/03/2024 6:55 AM JIG AND FIXTURE REPAIRER Octavio Cavazos, BEliel LAB BLOOD ADD-ON F inal Result [facility] [address] [place] [address], [facility] MKTO [facility] in [place] [address] [place] [address] * (ABNORMAL) Basic Metabolic Panel (01/03/2024 6:42 AM JIG AND FIXTURE REPAIRER) Potassium, P 2.8(L) 3.6 - 5.2 mmol/L 01/03/2024 7:46 AM JIG AND FIXTURE REPAIRER [facility] Sodium, P 140 135 - 145 mmol/L 01/03/2024 7:46 AM JIG AND FIXTURE REPAIRER [facility] Chloride, P 103 98 - 107 mmol/L 01/03/2024 7:46 AM JIG AND FIXTURE REPAIRER [facility] Bicarbonate, P 15(L) 22 - 29 mmol/L 01/03/2024 7:58 AM JIG AND FIXTURE REPAIRER [facility] Anion Gap, P 22(H) 7 - 15 01/03/2024 7:58 AM JIG AND FIXTURE REPAIRER [facility] BUN (Blood Urea Nitrogen), P 112(H) 8 - 24 mg/dL 01/03/2024 7:46 AM JIG AND FIXTURE REPAIRER [facility] Creatinine 3.76(H) 0.74 - 1.35 mg/dL 01/03/2024 7:46 AM JIG AND FIXTURE REPAIRER [facility] Estimated GFR (eGFR) 15(L) >=60 mL/min/BSA 01/03/2024 7:46 AM JIG AND FIXTURE REPAIRER [facility] Comment: Estimated GFR calculated using the 2020 CKD_EPI creatinine equation. Calcium, Total, P 7.7(L) 8.8 - 10.2 mg/dL 01/03/2024 7:46 AM JIG AND FIXTURE REPAIRER [facility] Glucose, P 81 70 - 140 mg/dL 01/03/2024 7:46 AM JIG AND FIXTURE REPAIRER [facility] Blood (Blood, Venous) 01/03/2024 6:42 AM JIG AND FIXTURE REPAIRER 01/03/2024 6:55 AM JIG AND FIXTURE REPAIRER us Octavio Cavazos, Ch.B. LAB BLOOD ADD-ON F inal Result [facility] [address] [place] [address], [facility] MKTO [facility] in [place] [address] [place] [address] * Leukemia/Lymphoma Immunophenotyping by Flow Cytometry (01/03/2024 6:10 AM JIG AND FIXTURE REPAIRER) LCMS Result Performed 01/05/2024 1:37 PM JIG AND FIXTURE REPAIRER DTL Final Diagnosis: Pleural fluid, flow cytometric immunophenotyp ing: No monotypic B-cell population or increase in blasts identified. Reviewed by: Blank Crisostomo M.D. 01/05/2024 1:37 PM JIG AND FIXTURE REPAIRER DTL Special Studies: Results: Blasts: Not increased by CD45/side scatter and CD34. B-cells: Absence of [id number] B cells. B-cell markers tested: CD19, CD10 and kappa and lambda surface light chains. T-cells/NK-joelle ls: No aberrant phenotype by CD3 and CD16. Quality assessment: Specimen received within validated guidelines. 01/05/2024 1:37 PM JIG AND FIXTURE REPAIRER DTL Microscopic Description A Hu-Giemsa- stained slide prepared from the flow cytometry specimen is examined. Morphology is suboptimal. 01/05/2024 1:37 PM JIG AND FIXTURE REPAIRER DTL Comment: ----ADDITIONAL INFORMATION---- This test was developed using an analyte specific reagent. Its performance characteristics were determined by [facility] in a manner consistent with CLIA requirements. This test has not been cleared or approved by the U.S. Food and Drug Administration. Fluid (Pleural Fluid, Right) 01/03/2024 6:10 AM JIG AND FIXTURE REPAIRER 01/04/2024 8:57 AM JIG AND FIXTURE REPAIRER us Octavio Cavazos, Ch.B. LAB GENETIC TESTIN G Final Result [facility] [address] [place] [address], [facility] DTL [address] [place] [address] * Cholesterol, Body Fluid (01/03/2024 6:10 AM JIG AND FIXTURE REPAIRER) Cholesterol, BF 34 See Comment mg/dL 01/05/2024 8:47 AM JIG AND FIXTURE REPAIRER DTL Comment: ----ADDITIONAL INFORMATION---- Pleural fluid cholesterol concentrations > 45 to 65 mg/dL are consistent with exudative effusions. Cholesterol concentrations > 200 mg/dL suggest pseudochylous effusions. Peritoneal fluid cholesterol concentrations > 32 to 70 mg/dL suggest a malignant cause of ascites. All other fluids refer to http://www.[employer].com for further interpretive information. This test has been modified from the tractor driver's instructions. Its performance characteristics were determined by [facility] in a manner consistent with CLIA requirements. This test has not been cleared or approved by the U.S. Food and Drug Administration. Fluid Type Pleural 01/05/2024 8:14 AM JIG AND FIXTURE REPAIRER DTL Fluid (Pleural Fluid, Right) 01/03/2024 6:10 AM JIG AND FIXTURE REPAIRER 01/05/2024 7:49 AM JIG AND FIXTURE REPAIRER us Octavio Cavazos, Ch.B. LAB BODY FLUIDS AN D STOOLS ORDERABLES Final Result [facility] [address] [place] [address], [facility] [address] [place] [address] * Glucose, Body Fluid (01/03/2024 6:10 AM JIG AND FIXTURE REPAIRER) Glucose, BF 134 See Comment mg/dL 01/05/2024 8:47 AM JIG AND FIXTURE REPAIRER DTL Comment: ----ADDITIONAL INFORMATION---- Body fluid glucose [...] cystic lesions. All other fluids refer to www.[employer] for further interpretive information. This test has been modified from the tractor driver's instructions. Its performance characteristics were determined by [facility] in a manner consistent with CLIA requirements. This test has not been cleared or approved by the U.S. Food and Drug Administration. Fluid Type, Glucose PLEURAL 01/04 8:14 AM JIG AND FIXTURE REPAIRER DTL Fluid (Pleural Fluid, Right) 01/03/2024 6:10 AM JIG AND FIXTURE REPAIRER 01/05/2024 7:49 AM JIG AND FIXTURE REPAIRER us Octavio Cavazos, Ch.B. LAB BODY FLUIDS AN D STOOLS ORDERABLES Final Result [facility] [place] [address] [place] [address], [facility] [address] [place] [address] * M tuberculosis Complex PCR (01/03/2024 6:10 AM JIG AND FIXTURE REPAIRER) MTB Complex PCR, Specimen Source Fluid, Pleural Fluid, Right 01/06/2024 7:45 PM JIG AND FIXTURE REPAIRER DTL MTB Complex PCR, Result Negative Not Applicable 01/06/2024 7:45 PM JIG AND FIXTURE REPAIRER DTL Comment: A mycobacterial culture must always [...] developed and its performance characteristics determined by [facility] in a manner consistent with CLIA requirements. This test has not been cleared or approved by the U.S. Food and Drug Administration. Fluid (Pleural Fluid, Right) 01/03/2024 6:10 AM JIG AND FIXTURE REPAIRER 01/04/2024 10:24 AM JIG AND FIXTURE REPAIRER Octavio Cavazos, ChElielB. LAB MICROBIOLOGY - GENERAL ORDERABLES Final Result [facility] [place] [address] [place] [address], [facility] DT [address] [place] [address] * (ABNORMAL) Bacterial Culture, Aerobic + Susceptibility (01/03/2024 6:10 AM JIG AND FIXTURE REPAIRER) Bacterial Culture, Aerobic + Susc STREPTOCOCCUS ANGINOSUS GROUP 4+ (A) 01/06/2024 12:07 PM JIG AND FIXTURE REPAIRER MKTO Fluid (Pleural Fluid, Right) 01/03/2024 6:10 AM JIG AND FIXTURE REPAIRER 01/03/2024 5:08 PM JIG AND FIXTURE REPAIRER Comment:Specimen Source Site : Fluid Narrative Organism [...] LAB MICROBIOLOGY - GENERAL ORDERABLES Final Result [facility] [address] [place] [address], [facility] MKTO [facility] [place] [address] * (ABNORMAL) Gram Stain (01/03/2024 6:10 AM JIG AND FIXTURE REPAIRER) Gram Stain White blood cells, Many.(A) 01/03/2024 5:33 PM JIG AND FIXTURE REPAIRER MKTO Gram Stain GRAM POSITIVE COCCI Many. (A) 01/03/2024 5:33 PM JIG AND FIXTURE REPAIRER MKTO Fluid (Pleural Fluid, Right) 01/03/2024 6:10 AM JIG AND FIXTURE REPAIRER 01/03/2024 5:08 PM JIG AND FIXTURE REPAIRER Comment:Specimen Source Site : Fluid Octavio Cavazos, Ch.B. LAB MICROBIOLOGY - GENERAL ORDERABLES Final Result Performing Organization Address City/[facility] Co de Phone Number [facility] [address] [place] [address], [facility] [place] [address] * Cell Count and Differential, Body Fluid (01/03/2024 6:10 AM JIG AND FIXTURE REPAIRER) Fluid Type Pleural/Tho racentesis 01/03/2024 6:21 PM JIG AND FIXTURE REPAIRER MKTO Gross Appearance Milky 01/03/20 24 6:22 PM JIG AND FIXTURE REPAIRER MKTO Total Nucleated Cells [id number] /[id number] 01/03/2024 6:22 PM JIG AND FIXTURE REPAIRER MKTO Comment: ----REFERENCE VALUE---- Synovial: <150 Peritoneal: <500 Pleural: <500 Pericardial: <500 ----ADDITIONAL INFORMATION---- This test has been modified from the tractor driver's instructions. Its performance characteristics were determined by [facility] in a manner consistent with CLIA requirements. This test has not been cleared or approved by the U.S. Food and Drug Administration. Neutrophils 100 % 01/03/2024 6:21 PM JIG AND FIXTURE REPAIRER MKTO Comment: ----REFERENCE VALUE---- Synovial: <25% Peritoneal: <25% Pleural: <25% Pericardial: <25% Reviewed by: Dr. Rizvi 01/04/2024 8:06 AM JIG AND FIXTURE REPAIRER MKTO Comment: REVISED RESULTS ----PREVIOUSLY REPORTED ---- To be reviewed Flagged as: N/A (Reported 01/03/2024 18:22) Fluid (Pleural Fluid, Right) 01/03/2024 6:10 AM JIG AND FIXTURE REPAIRER 01/03/2024 5:08 PM JIG AND FIXTURE REPAIRER us Octavio Cavazos, Ch.B. LAB BODY F LUIDS AND STOOLS ORDERABLES Edited Result - Final [facility] [address] [place] [address], [facility] MKTO [facility] [place] [address] * Protein, Total, Body Fluid (01/03/2024 6:10 AM JIG AND FIXTURE REPAIRER) Protein, Total, BF 0.9 See Comment g/dL 01/05/2024 8:47 AM JIG AND FIXTURE REPAIRER DTL Comment: ----ADDITIONAL INFORMATION---- A pleural fluid [...] clinical findings. All other fluids refer to www.UTILICASEs.com for further interpretive information. This test has been modified from the tractor driver's instructions. Its performance characteristics were determined by [facility] in a manner consistent with CLIA requirements. This test has not been cleared or approved by the U.S. Food and Drug Administration. Fluid Type, Protein, Total PLEURAL 01/05/2024 8:14 AM JIG AND FIXTURE REPAIRER DTL Fluid (Pleural Fluid, Right) 01/03/2024 6:10 AM JIG AND FIXTURE REPAIRER 01/05/2024 7:49 AM JIG AND FIXTURE REPAIRER us Octavio Cavazos, Ch.B. LAB BODY FLUIDS AN D STOOLS ORDERABLES Final Result Performing Organization Address [facility] Co de Phone Number [facility] [place] [address] [place] [address], [facility] [address] [place] [address] * Lactate Dehydrogenase (LD), Body Fluid (01/03/2024 6:10 AM JIG AND FIXTURE REPAIRER) Lactate Dehydrogenase (LD), BF >9000 See Comment U/L 01/05/2024 5:08 PM JIG AND FIXTURE REPAIRER DT Comment: ----ADDITIONAL INFORMATION---- Pleural fluid lactate dehydrogenase [...] clinical findings. All other fluids refer to www.UTILICASEs.[employer] for further interpretive information. This test has been modified from the tractor driver's instructions. Its performance characteristics were determined by [facility] in a manner consistent with CLIA requirements. This test has not been cleared or approved by the U.S. Food and Drug Administration. Fluid Type, Lactate Dehydrogenase PLEURAL 01/05/2024 8:14 AM JIG AND FIXTURE REPAIRER DTL Fluid (Pleural Fluid, Right) 01/03/2024 6:10 AM JIG AND FIXTURE REPAIRER 01/05/2024 8:01 AM JIG AND FIXTURE REPAIRER Octavio Cavazos, Ch.B. LAB BODY FLUIDS AN D STOOLS ORDERABLES Final Result Performing Organization Address [facility] Co de Phone Number [facility] [place] [address] [place] [address], [facility] [address] [place] [address] * DX Chest Portable 1 View (01/02/2024 3:59 PM JIG AND FIXTURE REPAIRER) Anatomical Region Laterality Modality Chest, Thoracic RST LOS, Tho racic ARZ LOS, Thoracic FLA LOS N/A Digital Radiography Impressions 01/02/2024 4:13 PM JIG AND FIXTURE REPAIRER Right jugular catheter terminates at the mid SVC. No pneumothorax. Narrative 01/02/2024 4:13 PM JIG AND FIXTURE REPAIRER EXAM: DX CHEST PORTABLE 1 VIEW COMPARISON: [...] DIAGNOSTIC IMAGI NG PROCEDURES Final Result * IN INS NON-BLAINE CVC >5YR, IN US GUIDE VASC ACCESS, LDA ANE CENTRAL LINE DOUBLE LUMEN ADULT, MC ANE CENTRAL LINE GENERIC PERFORMABLE (01/02/2024 3:47 PM JIG AND FIXTURE REPAIRER) Narrative Nikki Salinas M.D. - 01/02/2024 3:47 PM JIG AND FIXTURE REPAIRER Nikki Salinas M.D. 01/02/2024 3:50 PM Invasive [...] PROCEDURE/MINOR SURG ICAL ORDERABLES Final Result * Magnesium (01/02/2024 11:32 AM JIG AND FIXTURE REPAIRER) Magnesium, P 1.7 1.7 - 2.3 mg/dL 01/02/2024 2:38 PM JIG AND FIXTURE REPAIRER MKTO Blood (Blood, Venous) 01/02/2024 11:32 AM JIG AND FIXTURE REPAIRER 01/02/2024 2:24 PM JIG AND FIXTURE REPAIRER Octavio Cavazos, BEliel LAB BLOOD ADD-ON F inal Result [facility] [address] [place] [address], [facility] MKTO [facility] in [place] [address] [place] [address] * (ABNORMAL) Basic Metabolic Panel (01/02/2024 11:32 AM JIG AND FIXTURE REPAIRER) Potassium, P 3.0(L) 3.6 - 5.2 mmol/L 01/02/2024 12:57 PM JIG AND FIXTURE REPAIRER MKTO Sodium, P 136 135 - 145 mmol/L 01/02/2024 12:57 PM JIG AND FIXTURE REPAIRER MKTO Chloride, P 102 98 - 107 mmol/L 01/02/2024 12:57 PM JIG AND FIXTURE REPAIRER MKTO Bicarbonate, P 11(L) 22 - 29 mmol/L 01/02/2024 1:11 PM JIG AND FIXTURE REPAIRER MKTO Anion Gap, P 23(H) 7 - 15 01/02/2024 1:11 PM JIG AND FIXTURE REPAIRER MKTO BUN (Blood Urea Nitrogen), P 156(H) 8 - 24 mg/dL 01/02/2024 1:11 PM JIG AND FIXTURE REPAIRER MKTO Creatinine 5.07(H) 0.74 - 1.35 mg/dL 01/02/2024 12:57 PM JIG AND FIXTURE REPAIRER MKTO Estimated GFR (eGFR) <15(L) >=60 mL/min/BSA 01/02/2024 12:57 PM JIG AND FIXTURE REPAIRER MKTO Comment: Estimated GFR calculated using the 2020 CKD_EPI creatinine equation. Calcium, Total, P 7.4(L) 8.8 - 10.2 mg/dL 01/02/2024 12:57 PM JIG AND FIXTURE REPAIRER MKTO Glucose, P 73 70 - 140 mg/dL 01/02/2024 12:57 PM JIG AND FIXTURE REPAIRER MKTO Blood (Blood, Venous) 01/02/2024 11:32 AM JIG AND FIXTURE REPAIRER 01/02/2024 12:25 PM JIG AND FIXTURE REPAIRER us Jet Palomares M.D. LAB BLOOD ADD-ON Final Result [facility] [address] [place] [address], [place] MKTO [facility] in [place] [address] [place] [address] * US Kidneys Bilateral with Bladder (01/02/2024 10:15 AM JIG AND FIXTURE REPAIRER) Anatomical Region Laterality Modality Abdomen, Renal, Ultrasound R ST LOS, Ultrasound ARZ LOS, Ultrasound FLA LOS Bilateral Ultrasound Impressions 01/02/2024 10:57 AM JIG AND FIXTURE REPAIRER 1. No hydronephrosis. 2. Bilateral simple appearing renal cysts. Narrative 01/02/2024 10:57 AM JIG AND FIXTURE REPAIRER EXAM: US KIDNEYS BILATERAL WITH BLADDER COMPARISON: [...] M.D. IMG US PROCEDURES Final Result * DX Chest Portable 1 View (01/02/2024 4:24 AM JIG AND FIXTURE REPAIRER) Anatomical Region Laterality Modality Chest, Thoracic RST LOS, Tho racic ARZ LOS, Thoracic FLA LOS N/A Digital Radiography Impressions 01/02/2024 4:28 AM JIG AND FIXTURE REPAIRER 1. Small right pleural effusion with associated atelectasis. Minimal left basilar atelectasis. Narrative 01/02/2024 4:28 AM JIG AND FIXTURE REPAIRER EXAM: DX CHEST PORTABLE 1 VIEW COMPARISON: CT abdomen pelvis 01/01/2024 FINDINGS: Lungs, Pleura and Airways: Right pleural effusion with fluid along the fissure and atelectasis. Minimal left basilar atelectasis. No pneumothorax. Heart and Mediastinum: Normal heart size and mediastinal contours. Other: Thoracic spondylosis. Procedure Note Gregory Wallace M.D. - 01/02/2024 EXAM: DX CHEST PORTABLE 1 VIEW COMPARISON: CT abdomen pelvis 01/01/2024 FINDINGS: Lungs, Pleura and Airways: Right pleural effusion with fluid along thefissure and atelectasis. Minimal left basilar atelectasis. Nopneumothorax. Heart and Mediastinum: Normal heart size and mediastinal contours. Other: Thoracic spondylosis. IMPRESSION: 1. Small right pleural effusion with associated atelectasis. Minimal leftbasilar atelectasis. Deanna Lewis APRN, C.N.P., D.N.P., M.S.N. IMG DIAGNOSTIC IMAGING PROCEDURES Final Result * CK (Creatine Kinase) (01/02/2024 4:10 AM JIG AND FIXTURE REPAIRER) Creatine Kinase, P 78 39 - 308 U/L 01/02/2024 9:49 AM JIG AND FIXTURE REPAIRER MKTO Blood (Blood, Venous) 01/02/2024 4:10 AM JIG AND FIXTURE REPAIRER 01/02/2024 9:30 AM JIG AND FIXTURE REPAIRER Jet Palomares M.D. LAB BLOOD ADD-ON Final Result [facility] [address] [place] [address] * (ABNORMAL) Albumin (01/02/2024 4:10 AM JIG AND FIXTURE REPAIRER) Albumin, P 2.1(L) 3.5 - 5.0 g/dL 01/02/2024 4:37 AM JIG AND FIXTURE REPAIRER MKTO Blood (Blood, Venous) 01/02/2024 4:10 AM JIG AND FIXTURE REPAIRER 01/02/2024 4:10 AM JIG AND FIXTURE REPAIRER Deanna Lewis APRN, C.N.P., D.N.P., M.S.N. LAB B LOOD ADD-ON Final Result Performing Organization Address [facility] Co de Phone Number [facility] [address] [place] [address] * (ABNORMAL) Calcium, Ionized (01/02/2024 4:10 AM JIG AND FIXTURE REPAIRER) Calcium, Ionized, B 4.08(L) 4.65 - 5.30 mg/dL 01/02/2024 4:14 AM JIG AND FIXTURE REPAIRER MKTO Blood 01/02/2024 4:10 AM JIG AND FIXTURE REPAIRER 01/02/2024 4:10 AM JIG AND FIXTURE REPAIRER Deanna Lewis APRN, C.N.P., D.N.P., M.S.N. LAB B LOOD NON ADD-ON Final Result Performing Organization Address City/[facility]/ZIP Co de Phone Number [facility] [address] [place] [address] * (ABNORMAL) pH (01/02/2024 4:10 AM JIG AND FIXTURE REPAIRER) pH 7.29(L) 7.35 - 7.45 pH 01/02/2024 4:14 AM JIG AND FIXTURE REPAIRER MKTO Blood 01/02/2024 4:10 AM JIG AND FIXTURE REPAIRER 01/02/2024 4:10 AM JIG AND FIXTURE REPAIRER us Deanna Lewis APRN, C.N.P., D.N.P., M.S.N. LAB H ISTORICAL ORDERS Final Result Performing Organization Address [facility] Co de Phone Number [facility] [address] [place] [address] * (ABNORMAL) Phosphorus Inorganic (01/02/2024 3:41 AM JIG AND FIXTURE REPAIRER) Phosphorus (Inorganic), P 6.3(H) 2.5 - 4.5 mg/dL 01/02/2024 6:25 AM JIG AND FIXTURE REPAIRER MKTO Blood (Blood, Venous) 01/02/2024 3:41 AM JIG AND FIXTURE REPAIRER 01/02/2024 6:13 AM JIG AND FIXTURE REPAIRER us Deanna Lewis APRN, C.N.P., D.N.P., M.S.N. LAB B LOOD ADD-ON Final Result Performing Organization Address [facility] Co de Phone Number [facility] [address] [place] [address] * (ABNORMAL) Magnesium (01/02/2024 3:41 AM JIG AND FIXTURE REPAIRER) Magnesium, P 1.3(L) 1.7 - 2.3 mg/dL 01/02/2024 6:11 AM JIG AND FIXTURE REPAIRER MKTO Blood (Blood, Venous) 01/02/2024 3:41 AM JIG AND FIXTURE REPAIRER 01/02/2024 5:56 AM JIG AND FIXTURE REPAIRER us Deanna Lewis APRN, C.N.P., D.N.P., M.S.N. LAB B LOOD ADD-ON Final Result Performing Organization Address City/[facility]/ZIP Co de Phone Number [facility] [address] [place] [address], [address] [address] * Lactate, B (01/02/2024 3:41 AM JIG AND FIXTURE REPAIRER) Lactate, B 0.8 0.5 - 2.2 mmol/L 01/02/2024 4:47 AM JIG AND FIXTURE REPAIRER [facility] Blood (Blood, Venous) 01/02/2024 3:41 AM JIG AND FIXTURE REPAIRER 01/02/2024 4:45 AM JIG AND FIXTURE REPAIRER us Deanna Lewis APRN, C.N.P., D.N.P., M.S.N. LAB B LOOD NON ADD-ON Final Result Performing Organization Address City/[facility]/ZIP Co de Phone Number [facility] [address] [place] [address], [place] [address] * (ABNORMAL) NT-Pro B-Type Natriuretic Peptide (BNP) (01/02/2024 3:41 AM JIG AND FIXTURE REPAIRER) NT-Pro BNP 2051(H) <=540 pg/mL 01/02/2024 5:01 AM JIG AND FIXTURE REPAIRER [facility] Comment: NT-proBNP values less than 300 pg/mL [...] absence of renal failure. Blood (Blood, Venous) 01/02/2024 3:41 AM JIG AND FIXTURE REPAIRER 01/02/2024 4:45 AM JIG AND FIXTURE REPAIRER us Elice Florina Lewis APRN, C.N.P., D.N.P., M.S.N. LAB B LOOD ADD-ON Final Result [facility] [address] [place] [address], [address] [address] * (ABNORMAL) Blood Gas with Coox, Venous (01/02/2024 3:41 AM JIG AND FIXTURE REPAIRER) Pathologist [facility] pO2, Venous 49 Not applicable mm Hg 01/02/2024 4:14 AM JIG AND FIXTURE REPAIRER [facility] pCO2, Venous 29(L) 41 - 51 mm Hg 4:14 AM JIG AND FIXTURE REPAIRER [facility] pH, Venous 7.29(L) 7.32 - 7.43 pH 01/02/2024 4:14 AM JIG AND FIXTURE REPAIRER [facility] Base Excess, Venous -12 Not applicable mmol/L 01/02/2024 4:14 AM JIG AND FIXTURE REPAIRER [facility] HCO3, Venous 13 Not applicable mmol/L 01/02/2024 4:14 AM JIG AND FIXTURE REPAIRER [facility] Hemoglobin, Venous 9.6(L) 13.2 - 16.6 g/dL 01/02/2024 4:14 AM JIG AND FIXTURE REPAIRER [facility] O2Hb, Venous 79.4 Not applicable % 01/02/2024 4:14 AM JIG AND FIXTURE REPAIRER [facility] COHb, Venous 0.2 <3.0 % 01/02/2024 4:14 AM JIG AND FIXTURE REPAIRER [facility] MetHb, Venous 1.2 <1.5 % 01/02/2024 4:14 AM JIG AND FIXTURE REPAIRER [facility] CtO2, Venous 10.8 Not Applicable vol % 01/02/2024 4:14 AM JIG AND FIXTURE REPAIRER [facility] Blood (Blood, Venous) 01/02/2024 3:41 AM JIG AND FIXTURE REPAIRER 01/02/2024 4:05 AM JIG AND FIXTURE REPAIRER Fausto Bey M.D. LAB BLOOD NON ADD-ON Final Resu lt [facility] [address] [place] [address], [address] [address] * (ABNORMAL) Osmolality (01/02/2024 3:41 AM JIG AND FIXTURE REPAIRER) Osmolality, S 338(H) 276 - 306 mOsm/kg 01/02/2024 5:40 AM JIG AND FIXTURE REPAIRER [facility] Blood (Blood, Venous) 01/02/2024 3:41 AM JIG AND FIXTURE REPAIRER 01/02/2024 4:05 AM JIG AND FIXTURE REPAIRER Fausto Bey M.D. LAB BLOOD ADD-ON Final Result [facility] [address] [place] [address], [facility] MKTO [facility] [place] [address] [place] [id number] * (ABNORMAL) CBC with Differential, Blood (01/02/2024 3:41 AM JIG AND FIXTURE REPAIRER) Pathologist [facility] Hemoglobin 9.3(L) 13.2 - 16.6 g/dL 01/02/2024 4:09 AM JIG AND FIXTURE REPAIRER [facility] Hematocrit 27.1(L) 38.3 - 48.6 % 01/02/2024 4:09 AM JIG AND FIXTURE REPAIRER [facility] Erythrocytes 3.04(L) 4.35 - 5.65 x10(12)/L 01/02/2024 4:09 AM JIG AND FIXTURE REPAIRER [facility] MCV 89.1 78.2 - 97.9 fL 01/02/2024 4:09 AM JIG AND FIXTURE REPAIRER [facility] RBC Distrib Width 15.2(H) 11.8 - 14.5 % 01/02/2024 4:09 AM JIG AND FIXTURE REPAIRER [facility] Platelet Count 480(H) 135 - 317 x10(9)/L 01/02/2024 4:09 AM JIG AND FIXTURE REPAIRER [facility] Leukocytes 26.6(H) 3.4 - 9.6 x10(9)/L 01/02/2024 4:09 AM JIG AND FIXTURE REPAIRER [facility] Neutrophils 24.68(H) 1.56 - 6.45 x10(9)/L 01/02/2024 4:09 AM JIG AND FIXTURE REPAIRER [facility] Lymphocytes 0.64(L) 0.95 - 3.07 x10(9)/L 01/02/2024 4:09 AM JIG AND FIXTURE REPAIRER [facility] Monocytes 1.15(H) 0.26 - 0.81 x10(9)/L 01/02/2024 4:09 AM JIG AND FIXTURE REPAIRER [facility] Eosinophils 0.08 0.03 - 0.48 x10(9)/L 01/02/2024 4:09 AM JIG AND FIXTURE REPAIRER MKTO Basophils 0.06 0.01 - 0.08 x10(9)/L 01/02/2024 4:09 AM JIG AND FIXTURE REPAIRER [facility] Blood (Blood, Venous) 01/02/2024 3:41 AM JIG AND FIXTURE REPAIRER 01/02/2024 4:05 AM JIG AND FIXTURE REPAIRER us Fausto Bey M.D. LAB BLOOD ADD-ON Final Result [facility] [address] [place] [address], [facility] MKTO [facility] [place] [address] [place] [address] * (ABNORMAL) Basic Metabolic Panel (01/02/2024 3:41 AM JIG AND FIXTURE REPAIRER) Potassium, P 2.9(L) 3.6 - 5.2 mmol/L 01/02/2024 4:37 AM JIG AND FIXTURE REPAIRER MKTO Sodium, P 137 135 - 145 mmol/L 01/02/2024 4:37 AM JIG AND FIXTURE REPAIRER [facility] Chloride, P 102 98 - 107 mmol/L 01/02/2024 4:37 AM JIG AND FIXTURE REPAIRER [facility] Bicarbonate, P 12(L) 22 - 29 mmol/L 01/02/2024 4:43 AM JIG AND FIXTURE REPAIRER [facility] Anion Gap, P 23(H) 7 - 15 01/02/2024 4:43 AM JIG AND FIXTURE REPAIRER [facility] BUN (Blood Urea Nitrogen), P 157(H) 8 - 24 mg/dL 01/02/2024 4:50 AM JIG AND FIXTURE REPAIRER [facility] Creatinine 5.30(H) 0.74 - 1.35 mg/dL 01/02/2024 4:37 AM JIG AND FIXTURE REPAIRER [facility] Estimated GFR (eGFR) <15(L) >=60 mL/min/BSA 01/02/2024 4:37 AM JIG AND FIXTURE REPAIRER [facility] Comment: Estimated GFR calculated using the 2020 CKD_EPI creatinine equation. Calcium, Total, P 6.7(L) 8.8 - 10.2 mg/dL 01/02/2024 4:48 AM JIG AND FIXTURE REPAIRER MKTO Glucose, P 77 70 - 140 mg/dL 01/02/2024 4:37 AM JIG AND FIXTURE REPAIRER [facility] Blood (Blood, Venous) 01/02/2024 3:41 AM JIG AND FIXTURE REPAIRER 01/02/2024 4:05 AM JIG AND FIXTURE REPAIRER Fausto Bey M.D. LAB BLOOD ADD-ON Final Result Performing Organization Address [facility] Co de Phone Number [facility] [address] [place] [address], [facility] MKTO [facility] [place] [address] [place] [address] * ECG 12 Lead (01/02/2024 12:39 AM JIG AND FIXTURE REPAIRER) Ventricular Rate ECG/Min 93 BPM MUSE IN Interval 164 ms MUSE QRSD Interval 138 ms MUSE QT Interval 424 ms MUSE QTC Interval 527 ms MUSE P [place] 48 degrees MUSE R [place] -84 degrees MUSE T Wave [place] 71 degrees MUSE 01/02/2024 12:3 9 AM JIG AND FIXTURE REPAIRER 01/02/2024 6:17 AM JIG AND FIXTURE REPAIRER Impressions MUSE - 01/02/2024 6:17 AM JIG AND FIXTURE REPAIRER Normal sinus rhythm Right bundle branch block with secondary ST-T abnormalities Left anterior fascicular block Bifascicular block Prolonged QT No previous ECGs available Reviewed by GABRIELA Gardiner Narrative Procedure Note Renaldo Valentin M.D. 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 ECG ORDERABLES Final Result Performing Organization Address [facility] Co de Phone Number MUSE NA documented in this encounter Visit Diagnoses Diagnosis Failure Renal Acute (Acute Kidney Injury) (HCC)- Primary Failure Renal Acute (Acute Kidney Injury) (HCC) Pneumonia Mass Lung Hyponatremia Hypokalemia documented in this encounter Admitting Diagnoses Diagnosis Failure Renal Acute (Acute Kidney Injury) (HCC) documented in this encounter Administered Medications Active Administered Medications - up to 3 most recent administrations Medication Order MAR Action Action Date Dose Rate Site acetaminophen tablet 500 mg (TylenoL) 500 mg, oral, Every 6 hours PRN, mild pain or score 1-3 of 10, headaches, fever, Starting on Thu01/01/24 at 2119, Not to exceed 4 grams of acetaminophen in 24 hours all sources Given 01/07/2024 10:12 PM JIG AND FIXTURE REPAIRER 500 mg Given 01/07/2024 10:44 AM JIG AND FIXTURE REPAIRER 500 mg Given 01/06/2024 8:37 AM JIG AND FIXTURE REPAIRER 500 mg alteplase 10 mg in NaCl 0.9% intrapleural solution 10 mg, intrapleural, Every 12 hours scheduled, First dose on Thu01/05/24 at 1630, For 6 doses, Alteplase dose is instilled followed by 0.9% NaCl flush, then administer dornase dose followed by 0.9% NaCl flush. Clamp chest tube for 1 hour then unclamped and drained for 2 hours. Given 01/07/2024 9:35 PM JIG AND FIXTURE REPAIRER 10 mg Given 01/07/2024 9:33 AM JIG AND FIXTURE REPAIRER 10 mg Given 01/06/2024 9:39 PM JIG AND FIXTURE REPAIRER 10 mg ampicillin-sulbactam 3 g in NaCl 0.9% IVPB (Unasyn) 3 g, intravenous, at 400 mL/hr, Administer over 15 Minutes, Every 12 hours, First dose on Beata 01/07/24 at 0800, Mini-Bag Plus bag, Drug Monitoring Program: Pharmacist to adjust medication dosing based on indication and drug clearance factors., Indications: Respiratory tract infection, community acquiredIndications:Respiratory tract infection, community acquired New Bag 01/07/2024 10:17 PM JIG AND FIXTURE REPAIRER 3 g 400 mL/hr New Bag 01/07/2024 9:32 AM JIG AND FIXTURE REPAIRER 3 g 400 mL/hr dornase ember 5 mg in sterile water intrapleural solution 5 mg, intrapleural, Every 12 hours scheduled, First dose on Thu01/05/24 at 1630, For 6 doses, Alteplase dose is instilled followed by 0.9% NaCl flush, then administer dornase dose followed by 0.9% NaCl flush. Clamp chest tube for 1 hour then unclamped and drained for 2 hours. Given 01/07/2024 9:35 PM JIG AND FIXTURE REPAIRER 5 mg Given 01/07/2024 9:34 AM JIG AND FIXTURE REPAIRER 5 mg Given 01/06/2024 9:39 PM JIG AND FIXTURE REPAIRER 5 mg heparin (porcine) injection 5,000 Units 5,000 Units, subcutaneous, Every 8 hours scheduled, First dose (after last modification) on Tu01/05/24 at 2200 Given 01/07/2024 10:13 PM JIG AND FIXTURE REPAIRER 5,000 Units Right Lower Abdomen Given 01/07/2024 1:06 PM JIG AND FIXTURE REPAIRER 5,000 Units R ight Lower Abdomen Given 01/07/2024 5:23 AM JIG AND FIXTURE REPAIRER 5,000 Units R ight Lower Abdomen melatonin tablet 3 mg 3 mg, oral, Bedtime PRN, sleep, Starting on 01/04/24 at 2015 Given 01/07/2024 10:12 PM JIG AND FIXTURE REPAIRER 3 mg midodrine tablet 10 mg (ProAmatine) 10 mg, oral, Daily PRN, SBP below 90 during dialysis, Starting on 01/02/24 at 1625 Given 01/03/2024 9:24 AM JIG AND FIXTURE REPAIRER 1 0 mg oxyCODONE IR tablet 10 mg (Roxicodone) 10 mg, oral, Every 4 hours PRN, severe pain or score 7-10 of 10, Starting on Thu01/01/24 at 2119 Given 01/04/2024 11:25 PM JIG AND FIXTURE REPAIRER 10 mg oxyCODONE IR tablet 5 mg (Roxicodone) 5 mg, oral, Every 4 hours PRN, moderate pain or score 4-6 of 10, Starting on Thu01/01/24 at 2119 Given 01/07/2024 10:12 PM JIG AND FIXTURE REPAIRER 5 mg Given 01/07/2024 10:44 AM JIG AND FIXTURE REPAIRER 5 mg Given 01/06/2024 10:31 AM JIG AND FIXTURE REPAIRER 5 mg prochlorperazine injection 5 mg (Compazine) 5 mg, intravenous, Every 6 hours PRN, vomiting, nausea, Starting on Thu01/01/24 at 2119 Given 01/04/2024 7:59 AM JIG AND FIXTURE REPAIRER 5 m g Given 01/03/2024 9:14 PM JIG AND FIXTURE REPAIRER 5 mg sodium chloride 0.9 % injection 10 mL 10 mL, intravenous, As needed, line care, Starting on Thu01/04/24 at 1032, Prior to and following infusion and between multiple consecutive infusions: sodium chloride 0.9 % injection Given 01/04/2024 10:20 AM JIG AND FIXTURE REPAIRER 10 mL sodium chloride 0.9 % injection 3 mL 3 mL, intravenous, Every 12 hours scheduled, First dose on Thu01/02/24 at 0900, Peripheral Intravenous Catheter and Rapid Infusion Catheter, when no infusion to maintain patency Given 01/07/2024 9:34 AM JIG AND FIXTURE REPAIRER 3 mL Given 01/06/2024 9:19 PM JIG AND FIXTURE REPAIRER 3 mL Given 01/06/2024 8:25 AM JIG AND FIXTURE REPAIRER 3 mL sodium chloride 0.9 % injection 5 mL 5 mL, miscellaneous, Every 12 hours scheduled, First dose on Thu01/05/24 at 2100, For 6 doses, Alteplase dose is instilled followed by 0.9% NaCl flush, then administer dornase dose followed by 0.9% NaCl flush. Clamp chest tube for 1 hour then unclamped and drained for 2 hours. Given 01/07/2024 9:00 PM JIG AND FIXTURE REPAIRER 5 mL Given 01/07/2024 9:34 AM JIG AND FIXTURE REPAIRER 5 mL Given 01/06/2024 9:41 PM JIG AND FIXTURE REPAIRER 5 mL Inactive Administered Medications - up to 3 most recent administrations Medication Order MAR Action Action Date Dose Rate Site albumin human 25 % injection 12.5 g 12.5 g, intravenous, Once, On 01/02/24 at 0600, For 1 dose, If no infusion rate specified: Administer the 25% solution at 100 mL/hr New Bag 01/02/2024 5:44 AM JIG AND FIXTURE REPAIRER 12.5 g albumin human 5 % injection 37.5 g 37.5 g, intravenous, Once, On 01/02/24 at 1330, For 1 dose, If no infusion rate specified: Administer the 5% solution at 999 mL/hr or less if ICU/shock, otherwise infuse at 250 mL/hr. New Bag 01/02/2024 2:13 PM JIG AND FIXTURE REPAIRER 37.5 g calcium gluc in NaCl, iso osm IVPB 2 g 2 g, intravenous, at 400 mL/hr, Administer over 15 Minutes, Once, On 01/02/24 at 0515, For 1 dose, - Administration via a central or deep vein is preferred; do not use small hand or foot veins for IV administration (severe necrosis and sloughing may occur). - When a peripheral intravenous catheter is used, the site should be directly observed and is assessed periodically for extravasation by an RN or prescriber for the duration of the infusion. - Intravenous calcium doses over 2 grams are to be administered only via central intravenous catheter. New Bag 01/02/2024 5:09 AM JIG AND FIXTURE REPAIRER 2 g 4 00 mL/hr cefTRIAXone injection 2 g (Rocephin) 2 g, intravenous, Daily, First dose on 01/03/24 at 1030, If needed, reconstitute vial per package insert instructions. See IVAG for administration guidelines., Drug Monitoring Program: Pharmacist to adjust medication dosing based on indication and drug clearance factors., Indications: Respiratory tract infection, community acquiredIndications:Respirator y tract infection, community acquired Given 01/06/2024 8:38 AM JIG AND FIXTURE REPAIRER 2 g Given 01/05/2024 8:21 AM JIG AND FIXTURE REPAIRER 2 g Given 01/04/2024 8:04 AM JIG AND FIXTURE REPAIRER 2 g doxycycline 100 mg in NaCl 0.9% IVPB (Vibramycin) 100 mg, intravenous, at 100 mL/hr, Administer over 60 Minutes, Every 12 hours scheduled, First dose on 01/03/24 at 1030, Mini-Bag Plus bag, Indications: Respiratory tract infection, community acquiredIndications:Respiratory tract infection, community acquired New Bag 01/05/2024 8:20 AM JIG AND FIXTURE REPAIRER 100 m g 100 mL/hr New Bag 01/04/2024 8:55 PM JIG AND FIXTURE REPAIRER 100 mg 100 mL/hr New Bag 01/04/2024 8:04 AM JIG AND FIXTURE REPAIRER 100 mg 100 mL/hr heparin (porcine) injection 5,000 Units 5,000 Units, subcutaneous, Every 8 hours scheduled, First dose on Thu01/01/24 at 2200 Given 01/04/2024 5:54 AM JIG AND FIXTURE REPAIRER 5,000 Units Left Upper Abdomen Given 01/03/2024 9:09 PM JIG AND FIXTURE REPAIRER 5,000 Units L eft Lower Abdomen Given 01/03/2024 5:55 AM JIG AND FIXTURE REPAIRER 5,000 Units L eft Upper Abdomen Lactated Ringer's bolus 250 mL 250 mL, intravenous, at 250 mL/hr, Administer over 1 Hours, Once, On 01/02/24 at 0130, For 1 dose New Bag 01/02/2024 1:21 AM JIG AND FIXTURE REPAIRER 250 mL 250 mL/hr Lactated Ringer's bolus 250 mL 250 mL, intravenous, at 250 mL/hr, Administer over 1 Hours, Once, On 01/01/24 at 0400, For 1 dose New Bag 01/02/2024 3:49 AM JIG AND FIXTURE REPAIRER 250 mL 250 mL/hr lidocaine (PF) 10 mg/mL (1 %) injection 10 mL (Xylocaine) 10 mL, subcutaneous, Once, On Thu01/03/24 at 1657, For 1 dose Given 01/03/2024 4:57 PM JIG AND FIXTURE REPAIRER 10 mL Right Chest lidocaine-sodium bicarbonate (buffered) 0.9%-0.84% injection infiltration, As needed, Starting on Thu01/05/24 at 1335, Intra-Op Given 01/05/2024 1:35 PM JIG AND FIXTURE REPAIRER 10 mL magnesium sulfate in water IVPB 2 g 2 g, intravenous, at 25 mL/hr, Administer over 120 Minutes, Once, On Thu01/02/24 at 0645, For 1 dose New Bag 01/02/2024 6:43 AM JIG AND FIXTURE REPAIRER 2 g 25 mL/hr magnesium sulfate in water IVPB 2 g 2 g, intravenous, at 25 mL/hr, Administer over 120 Minutes, Once, On Thu01/06/24 at 0645, For 1 dose New Bag 01/06/2024 6:36 AM JIG AND FIXTURE REPAIRER 2 g 25 mL/hr metroNIDAZOLE tablet 500 mg (FlagyL) 500 mg, oral, 3 times daily, First dose on Thu01/05/24 at 1130, Drug Monitoring Program: Pharmacist to adjust medication dosing based on indication and drug clearance factors., Indications: Respiratory tract infection, community acquiredIndications:Respirat ory tract infection, community acquired Given 01/06/2024 9:14 PM JIG AND FIXTURE REPAIRER 500 mg Given 01/06/2024 1:53 PM JIG AND FIXTURE REPAIRER 500 mg Given 01/06/2024 8:37 AM JIG AND FIXTURE REPAIRER 500 mg NaCl 0.9% infusion 75 mL/hr, intravenous, Continuous, Starting on Thu01/01/24 at 2145, For 24 hours Rate/Dose Verify 01/02/2024 10:14 AM JIG AND FIXTURE REPAIRER 75 mL/hr 75 mL/hr Rate/Dose Verify 01/02/2024 8:01 AM JIG AND FIXTURE REPAIRER 75 mL/hr 75 mL/h r Rate/Dose Verify 01/02/2024 7:52 AM JIG AND FIXTURE REPAIRER 75 mL/hr 75 mL/h r perflutren lipid microspheres injection (Definity) intravenous, Once in imaging, contrast, Starting on Thu01/04/24 at 1032, For 1 dose, Intraprocedure - Diagnostic, See protocol. Given 01/04/2024 10:15 AM JIG AND FIXTURE REPAIRER 2 mL potassium chloride ER tablet 40 mEq 40 mEq, oral, Every 6 hours, First dose on 01/02/24 at 1330, For 2 doses, Swallow whole. Do NOT crush, chew, or split tablet. Given 01/02/2024 2:[address] 40 mEq potassium chloride ER tablet 40 mEq 40 mEq, oral, Once, On 01/03/24 at 0845, For 1 dose, Swallow whole. Do NOT crush, chew, or split tablet. Given 01/03/2024 8:32 AM JIG AND FIXTURE REPAIRER 40 mEq potassium chloride ER tablet 40 mEq 40 mEq, oral, Once, On 01/03/24 at 1600, For 1 dose, Swallow whole. Do NOT crush, chew, or split tablet. Given 01/03/2024 9:11 PM JIG AND FIXTURE REPAIRER 40 mEq potassium chloride ER tablet 40 mEq 40 mEq, oral, Once, On 01/06/24 at 0645, For 1 dose, Swallow whole. Do NOT crush, chew, or split tablet. Given 01/06/2024 6:33 AM JIG AND FIXTURE REPAIRER 40 mEq potassium chloride ER tablet 40 mEq 40 mEq, oral, 2 times daily with meals, First dose on Beata 01/07/24 at 0800, For 2 doses, Swallow whole. Do NOT crush, chew, or split tablet. Given 01/07/2024 4:54 PM JIG AND FIXTURE REPAIRER 40 mEq Given 01/07/2024 9:33 AM JIG AND FIXTURE REPAIRER 40 mEq potassium chloride IVPB 10 mEq 10 mEq, intravenous, at 100 mL/hr, Administer over 60 Minutes, Every 1 hour, First dose on Thu01/01/24 at 2200, For 4 doses, For K<3 mEq/L - give total of 40 mEq, Monitor the following for replacement: Potassium, Replace Potassium per: Standard Schedule New Bag 01/02/2024 1:21 AM JIG AND FIXTURE REPAIRER 10 mEq 100 mL/hr New Bag 01/02/2024 12:16 AM JIG AND FIXTURE REPAIRER 10 mEq 100 mL/hr New Bag 01/01/2024 11:22 PM JIG AND FIXTURE REPAIRER 10 mEq 100 mL/hr potassium chloride IVPB 10 mEq 10 mEq, intravenous, at 100 mL/hr, Administer over 60 Minutes, Every 1 hour, First dose on 01/02/24 at 0600, For 4 doses, Peripheral Line: 10 mEq per bag over 1 hour each. New Bag 01/02/2024 9:00 AM JIG AND FIXTURE REPAIRER 10 mEq 100 mL/hr New Bag 01/02/2024 7:56 AM JIG AND FIXTURE REPAIRER 10 mEq 100 mL/hr New Bag 01/02/2024 6:19 AM JIG AND FIXTURE REPAIRER 10 mEq 100 mL/hr potassium chloride IVPB 10 mEq 10 mEq, intravenous, at 100 mL/hr, Administer over 60 Minutes, Every 1 hour, First dose (after last reorder) on Thu01/03/24 at 0915, For 4 doses, Peripheral Line: 10 mEq per bag over 1 hour each. New Bag 01/03/2024 9:06 AM JIG AND FIXTURE REPAIRER 10 mEq 100 mL/hr sodium bicarbonate injection 50 mEq 50 mEq, intravenous, Once, On Thu01/02/24 at 1000, For 1 dose Given 01/02/2024 12:04 PM JIG AND FIXTURE REPAIRER 50 mEq sodium bicarbonate tablet 1,300 mg 1,300 mg, oral, 3 times daily, First dose (after last modification) on Thu01/02/24 at 1400 Given 01/02/2024 2:08 PM JIG AND FIXTURE REPAIRER 1,300 mg sodium bicarbonate tablet 650 mg 650 mg, oral, 2 times daily, First dose on Thu01/01/24 at 2200 Given 01/02/2024 7:56 AM JIG AND FIXTURE REPAIRER 650 mg Given 01/01/2024 10:19 PM JIG AND FIXTURE REPAIRER 650 mg sodium chloride 0.9 % flush 1-250 mL 1-250 mL, intravenous, As needed, line care, For priming and rinse back post dialysis, Starting on Thu01/04/24 at 1440, Dialysis, Dialysis order only. Given 01/04/2024 5:46 PM JIG AND FIXTURE REPAIRER 200 mL Given 01/04/2024 2:28 PM JIG AND FIXTURE REPAIRER 200 mL sodium chloride 0.9 % injection 5 mL 5 mL, miscellaneous, Every 12 hours scheduled, First dose on Thu01/05/24 at 2100, For 6 doses, Alteplase dose is instilled followed by 0.9% NaCl flush, then administer dornase dose followed by 0.9% NaCl flush. Clamp chest tube for 1 hour then unclamped and drained for 2 hours. Given 01/07/2024 9:38 PM JIG AND FIXTURE REPAIRER 5 mL Given 01/07/2024 9:36 PM JIG AND FIXTURE REPAIRER 5 mL Given 01/07/2024 9:34 AM JIG AND FIXTURE REPAIRER 5 mL documented in this encounter Active and Recently Administered Medications Times are shown in JIG AND FIXTURE REPAIRER. Scheduled Medication Order 01/06/2024 01/07/2024 01/08/2024 alteplase 10 mg in NaCl 0.9% intrapleural solution 10 mg, intrapleural, Every 12 hours scheduled, First dose on Thu01/05/24 at 1630, For 6 doses, Alteplase dose is instilled followed by 0.9% NaCl flush, then administer dornase dose followed by 0.9% NaCl flush. Clamp chest tube for 1 hour then unclamped and drained for 2 hours. 0823 (Given - Provider: Melody Mullins R.N., CCRN)2138 (Given - Provider: Sue Bello RElielN.) 932 (Given - Provider: Anderson Gonzalez R.N., CCRN)2134 (Given - Provider: Amberly Denton R.N., PCCN) 0900 (Due) ampicillin-sulbactam 3 g in NaCl 0.9% IVPB (Unasyn) 3 g, intravenous, at 400 mL/hr, Administer over 15 Minutes, Every 12 hours, First dose on Beata 01/07/24 at 0800, Mini-Bag Plus bag, Drug Monitoring Program: Pharmacist to adjust medication dosing based on indication and drug clearance factors., Indications: Respiratory tract infection, community acquired 0932 (New Bag - Provider: Anderson Gonzalez R.N., CCRN)2216 (New Bag - Provider: Hayley Almeida RElielNEliel) 0800 (Due)1999 (Due) cefTRIAXone injection 2 g (Rocephin) (CANCELED) 2 g, intravenous, Daily, First dose on Thu01/03/24 at 1030, If needed, reconstitute vial per package insert instructions. See IVAG for administration guidelines., Drug Monitoring Program: Pharmacist to adjust medication dosing based on indication and drug clearance factors., Indications: Respiratory tract infection, community acquired 0838 (Given - Provider: Wendi Pacheco R.N.) dornase ember 5 mg in sterile water intrapleural solution 5 mg, intrapleural, Every 12 hours scheduled, First dose on Thu01/05/24 at 1630, For 6 doses, Alteplase dose is instilled followed by 0.9% NaCl flush, then administer dornase dose followed by 0.9% NaCl flush. Clamp chest tube for 1 hour then unclamped and drained for 2 hours. 0824 (Given - Provider: Melody Mullins R.N., CCRN)2138 (Given - Provider: Sue Bello R.N.) 0934 (Given - Provider: Anderson Gonzalez R.N., CCRN)2134 (Given - Provider: Amberly Denton R.N., PCCN) 0900 (Due) heparin (porcine) injection 5,000 Units 5,000 Units, subcutaneous, Every 8 hours scheduled, First dose (after last modification) on Thu01/05/24 at 2200 0512 (Given - Provider: Ricky Brown R.N.)1353 (Given - Provider: Wendi Pacheco R.N.)2114 (Given - Provider: Ricky Brown R.N.) 0523 (Given - Provider: Ricky Brown R.N.)1306 (Given - Provider: Nemo Martin R.N.)2213 (Given - Provider: Hayley Almeida RElielNEliel) 0600 (Due)1400 (Due)2200 (Due) magnesium sulfate in water IVPB 2 g (COMPLETED) 2 g, intravenous, at 25 mL/hr, Administer over 120 Minutes, Once, On Thu01/06/24 at 0645, For 1 dose 0636 (New Bag - Provider: Ricky Brown R.N.) metroNIDAZOLE tablet 500 mg (FlagyL) (CANCELED) 500 mg, oral, 3 times daily, First dose on Thu01/05/24 at 1130, Drug Monitoring Program: Pharmacist to adjust medication dosing based on indication and drug clearance factors., Indications: Respiratory tract infection, community acquired 0837 (Given - Provider: Wendi Pacheco R.N.)1353 (Given - Provider: Wendi Pacheco R.N.)2114 (Given - Provider: Ricky Brown R.N.) potassium chloride ER tablet 40 mEq (COMPLETED) 40 mEq, oral, Once, On Thu01/06/24 at 0645, For 1 dose, Swallow whole. Do NOT crush, chew, or split tablet. 0633 (Given - Provider: Ricky Brown R.N.) potassium chloride ER tablet 40 mEq (COMPLETED) 40 mEq, oral, 2 times daily with meals, First dose on Beata 01/07/24 at 0800, For 2 doses, Swallow whole. Do NOT crush, chew, or split tablet. 0933 (Given - Provider: Anderson Gonzalez R.N., CCRN)1654 (Given - Provider: Wendi Pacheco R.N.) sodium chloride 0.9 % injection 3 mL 3 mL, intravenous, Every 12 hours scheduled, First dose on Thu01/02/24 at 0900, Peripheral Intravenous Catheter and Rapid Infusion Catheter, when no infusion to maintain patency 0825 (Given - Provider: Melody Mullins R.N., CCRN)2118 (Given - Provider: Ricky Brown R.N.) 933 (Given - Provider: Anderson Gonzalez R.N., CCRN)2136 (Not Given - Provider: Amberly Denton R.N., PCCN - Reason: Order parameters not met) 0900 (Due)2100 (Due) sodium chloride 0.9 % injection 5 mL 5 mL, miscellaneous, Every 12 hours scheduled, First dose on Thu01/05/24 at 2100, For 6 doses, Alteplase dose is instilled followed by 0.9% NaCl flush, then administer dornase dose followed by 0.9% NaCl flush. Clamp chest tube for 1 hour then unclamped and drained for 2 hours. 0824 (Given - Provider: Melody Mullins R.N., CCRN)2140 (Given - Provider: Sue Bello R.N.) 0934 (Given - Provider: Anderson Gonzalez R.N., CCRN)2099 (Given - Provider: Amberly Denton R.N., PCCN) 0900 (Due) sodium chloride 0.9 % injection 5 mL (COMPLETED) 5 mL, miscellaneous, Every 12 hours scheduled, First dose on Thu01/05/24 at 2100, For 6 doses, Alteplase dose is instilled followed by 0.9% NaCl flush, then administer dornase dose followed by 0.9% NaCl flush. Clamp chest tube for 1 hour then unclamped and drained for 2 hours. 0824 (Given - Provider: Melody Mullins R.N., CCRN)2140 (Given - Provider: Xander GrantNEliel) 0934 (Given - Provider: Anderson Gonzalez R.N., CCRN)2135 (Given - Provider: Amberly Denton R.N., PCCN)213 (Given - Provider: Amberly Denton R.N., PCCN) 0900 (Due) PRN Medication Order 01/06/2024 01/07/2024 01/08/2024 acetaminophen tablet 500 mg (TylenoL) 500 mg, oral, Every 6 hours PRN, mild pain or score 1-3 of 10, headaches, fever, Starting on Thu01/01/24 at 2118, Not to exceed 4 grams of acetaminophen in 24 hours all sources 0837 (Given - Provider: Wendi Pacheco RTito) 1044 (Given - Provider: Nemo Martin RElielNEliel)2211 (Given - Provider: Hayley Almeida R.N.) bisacodyL suppository 10 mg (Dulcolax) 10 mg, rectal, Daily PRN, constipation, Starting on Thu01/01/24 at 2119, Ordered sequence of administration: polyethylene glycol, then bisacodyl until BM achieved. ipratropium-albuteroL 0.5-2.5 mg/3 mL nebulizer solution 3 mL (DuoNeb) 3 mL, nebulization, Every 6 hours PRN, wheezing, shortness of breath, Starting on Thu01/01/24 at 2119 melatonin tablet 3 mg 3 mg, oral, Bedtime PRN, sleep, Starting on 01/04/24 at 2015 2212 (Given - Provider: Hayley Almeida R.N.) midodrine tablet 10 mg (ProAmatine) 10 mg, oral, Daily PRN, SBP below 90 during dialysis, Starting on 11/16/24 at 1625 naloxone injection 0.1 mg 0.1 mg, intravenous, Every 5 min PRN, reversal, respiratory depression, For RASS Score -4 or less, respiratory rate of less than 8 breaths/min. Notify provider/service and rapid response team (if available at institution)., Starting on Thu01/01/24 at 2118, For 3 doses oxyCODONE IR tablet 10 mg (Roxicodone)(Linked Group 1) 10 mg, oral, Every 4 hours PRN, severe pain or score 7-10 of 10, Starting on Thu01/01/24 at 2118 1031 (See Alternative - Provider: Wendi Pacheco R.N.) 1044 (See Alternative - Provider: Nemo Martin R.N.)2212 (See Alternative - Provider: Hayley Almeida R.N.) oxyCODONE IR tablet 5 mg (Roxicodone)(Linked Group 1) 5 mg, oral, Every 4 hours PRN, moderate pain or score 4-6 of 10, Starting on Thu01/01/24 at 2118 1031 (Given - Provider: Wendi Pacheco R.N.) 1044 (Given - Provider: Nemo Martin R.N.)2212 (Given - Provider: Hayley Almeida R.N.) polyethylene glycol powder packet 17 g (Miralax) 17 g, oral, Daily PRN, constipation, Starting on Thu01/01/24 at 211, Ordered sequence of administration: polyethylene glycol, then bisacodyl until BM achieved. Avoid mixing with starch-based thickened liquids. prochlorperazine injection 5 mg (Compazine) 5 mg, intravenous, Every 6 hours PRN, vomiting, nausea, Starting on Thu01/01/24 at 2119 sodium chloride 0.9 % injection 10 mL 10 mL, intravenous, As needed, line care, Starting on Thu01/01/24 at 2117, Peripheral Intravenous Catheter and Rapid Infusion Catheter, prior to blood sampling, post blood transfusion or post blood sampling sodium chloride 0.9 % injection 10 mL 10 mL, intravenous, As needed, line care, Starting on Thu01/04/24 at 1032, Prior to and following infusion and between multiple consecutive infusions: sodium chloride 0.9 % injection 2139 (Canceled Entry - Provider: Sue Bello, R.N.)2139 (Canceled Entry - Provider: Sue Bello, RElielN.) sodium chloride 0.9 % injection 3 mL 3 mL, intravenous, As needed, line care, Starting on Thu01/01/24 at 2117, Prior to and following infusion and between multiple consecutive infusions: sodium chloride 0.9 % injection Linked Groups Order Group 1: oxyCODONE IR tablet 5 mg (Roxicodone)Jump to med 5 mg, oral, Every 4 hours PRN, moderate pain or score 4-6 of 10, Starting on Thu01/01/24 at 2118 Or oxyCODONE IR tablet 10 mg (Roxicodone)Jump to med 10 mg, oral, Every 4 hours PRN, severe pain or score 7-10 of 10, Starting on Thu01/01/24 at 2118 documented in this encounter
--- OUTSIDE RECORDS SUMMARY | 2024-01-08 01:33 | XMS_ITS | Encounter Summary ---
Author Organization [facility] Address [address] [place] [address] Care Team Providers Care Phonograph Mechanic Name Role Phone Elsewhere, Pcp Primary Care Provider Unavailabl e Encounter Details Date Type Department Care Team (Latest Contact Info) Description 01/01/2024 Intake [facility] Social History Tobacco Use Types Packs/Day Years Used Date Smoking Tobacco: Never Assessed Nutrition Answer Date Recorded Nutrition: EVOO Fat Source Unknown 12/24 Nutrition: Servings of Fruits/Vegetables per Day Not on file 12/24/2022 Dental Answer Date Recorded Dental: Regular Dentist Unknown 12/25/19 23 Sex and Gender Information Value Date Recorded Sex Assigned at Not on file Legal Sex Male 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 [address] [place] [phone] documented as of this encounter Visit Diagnoses Not on filedocumented in this encounter Care Teams Phonograph Mechanic Relationship Specialty Start Date End Date Elsewhere, Pcp PCP - General Internal Medicine 01/04/24 documented as of this encounter
== END 2024-01-01 19:21 | disposition home or self-care (01) ==
LOC: AMB 01-08 01:30
PROVIDERS: Visit Provider Family Medicine
DX: N17.9 Acute kidney failure, unspecified (principal); D64.9 Anemia, unspecified; E87.1 Hypo-osmolality and hyponatremia; R53.1 Weakness; R91.8 Other nonspecific abnormal finding of lung field; J18.9 Pneumonia, unspecified organism
CPT/HCPCS: A0425; A0434

== ENCOUNTER 2024-01-22 10:46 | Outpatient (CLI) | payer MEDICARE, SELFPAY ==
--- OUTSIDE RECORDS SUMMARY | 2024-01-22 10:50 | XMS_ITS ---
Author Organization [facility] Address [address] [place] [address] Care Team Providers Care Lean Coach Name Role Phone Unavailable Unavailable Unavailable Surgery Details Not on file Complications Check Surgery Details section. Procedure Estimated Blood Loss Check Surgery Details section. Procedure Findings Check Surgery Details section. Procedure Specimens Taken Check Surgery Details section.
--- OUTSIDE RECORDS SUMMARY | 2024-01-22 10:50 | XMS_ITS | Clinical Summary ---
Author Organization [facility] Address [address] [place] [address] Care Team Providers Care Lapel Padder Name Role Phone Elsewhere, Pcp Primary Care Provider Unavailabl e Source Comments Patient records contain information from all sites at [facility]. For routine questions regarding patient records, call [phone] during business hours, M-F 8:00 AM - 5:00 PM Central Time. Record requests for emergency care only can be directed to [phone] at any time.[facility] Allergies No known active allergies Medications ferrous sulfate 325 mg (65 mg iron) DR tablet Take 1 tablet (65 mg of iron total) by mouth daily. 90 tablet 3 3 024 Active Additional Information Patient taking differently: 130 mg of ironoral Daily, Reported on 01/04/2024 multivitamin tablet Take 1 tablet by mouth daily. Active furosemide (Lasix) 20 mg tablet Take 60 mg by mouth daily. 4 Active diphenoxylate-a tropine (LomotiL) 2.5-0.025 mg per tablet Take 1 tablet by mouth 3 (three) times a day as needed for diarrhea. 4 Active cholecalciferol , vitamin D3, 25 mcg (1,000 Unit) tablet Take 25 mcg by mouth daily. Active atorvastatin (Lipitor) 10 mg tablet Take 10 mg by mouth at bedtime. 4 Active acetaminophen (TylenoL) 500 mg tablet Take 1,000 mg by mouth every 6 (six) hours as needed for pain. Active ascorbic acid, vitamin C, (Vitamin C) 1,000 mg tablet Take 1,000 mg by mouth daily. Active omega-3 fatty acids-fish oil 300-1,000 mg per capsule Take 1 g by mouth daily. Active UNABLE TO FIND Take 1 each by mouth daily. Med Name: Prostate Complete Zinc, Selenium, Saw [place], Lycopene, Turmeric, Resveratrol, Pomegranate Active gabapentin (Neurontin) 300 mg capsule Take 1 capsule (300 mg total) by mouth at bedtime. 30 capsule 4 Active oxyCODONE (Roxicodone) 5 mg immediate release tabletIndicatio ns:Acute Pain Exception Take 1 tablet (5 mg total) by mouth every 8 (eight) hours as needed for pain Indication: Acute Pain Exception. 10 tablet 4 Active amoxicillin-pot clavulanate (Augmentin) 500-125 mg per tablet Take 1 tablet (500 mg total) by mouth 2 (two) times a day for 15 days. 30 tablet 4 024 Active omeprazole (PriLOSEC) [address] capsule Take 20 mg by mouth daily as needed. 3 024 Discontin ued(Thera py completed ) montelukast (Singulair) 10 mg tablet Take 1 tablet by mouth at bedtime. 4 024 Discontin ued(Thera py completed ) losartan-hydroC HLOROthiazide (Hyzaar) 100-25 mg per tablet Take 1 tablet by mouth daily. 4 024 Discontin ued(Stop Taking at Discharge ) amoxicillin-pot clavulanate (Augmentin) 875-125 mg per tablet Take 1 tablet by mouth 2 (two) times a day for 15 days. 30 tablet 4 024 Discontin ued(Stop Taking at Discharge ) Active Problems Problem Noted Date Diagnosed Date Failure Renal Acute (Acute Kidney Injury) 2023 Pneumonia 01/01/2024 Mass Lung 01/01/2024 Hyponatremia 01/01/2024 Hypokalemia 01/01/2024 Encounters Date Type Department Care Team Description 01/15/2024 Clinical Communication Department of Infectious Diseases in [place] [phone] Ceci Cates R.N. Appointment (Lab visit) 01/13/2024 Clinical Communication Department of Infectious Diseases in [address] [phone] Sarah Perry M.D. 01/08/2024 Clinical Communication Department of Infectious Diseases in [address] [phone] Letty Sneed R.N. 01/08/2024 Orders Only Department of Infectious Diseases in [address] [phone] Letty Sneed R.N. Pneumonia (Primary Dx) 01/07/2024 Clinical Communication Department of Infectious Diseases [address] [phone] Stacy Esposito R.N. 01/04/2024 7:40 PM DIETETIC TECHNICIAN REGISTERED Ancillary Procedure Department of Nursing 01/02/2024 3:30 PM DIETETIC TECHNICIAN REGISTERED Ancillary Procedure Department of General Surgery 01/01/2024 8:59 PM DIETETIC TECHNICIAN REGISTERED - 01/11/2024 4:43 PM DIETETIC TECHNICIAN REGISTERED Hospital Encounter [facility], [facility] [place], Fourth Floor [address] [place] [phone] Frank Mccall M.D. Warsame, Mohamed Y, M.B., Della.Anibal. Jeremías Fernandez M.D. Byrd, Gregory S, D.O. Khan, Saad S, M.D. Empyema Pleural (HCC) (Primary Dx); Failure Renal Acute (Acute Kidney Injury) (HCC); Pneumonia Discharge Disposition: Home or Self Care 01/01/2024 [facility]ake [facility] from Last 3 Months Immunizations Name Administration Dates Next Due influenza trivalent high dose (HD)(PF) (Deferred: Other) Social History Tobacco Use Types Packs/Day Years Used Date Smoking Tobacco: Never Passive Smoke Exposure: Never Smokeless Tobacco: Never Tobacco Cessation:Counseling Given: No [facility] Utilities Answer Date Recorded In the past 12 months has e electric, gas, oil, or water company threatened to shut off services in your home? No 01/10/2024 Humiliation, Afraid, Rape, and Kick questionnair e Answer Date Recorded Within the last year, have y ou been afraid of your partner or ex-partner? No 01/10/2024 Within the last year, have y ou been humiliated or emotionally abused in other ways by your partner or ex-partner? No Within the last year, have y ou been kicked, hit, slapped, or otherwise physically hurt by your partner or ex-partner? No 01/10/2024 Within the last year, have y ou been raped or forced to have any kind of sexual activity by your partner or ex-partner? No 01/10/2024 Hunger Vital Sign Answer Date Recorded Within the past 12 months, y ou worried that your food would run out before you got the money to buy more. Never true 01/10/20 Within the past 12 months, t he food you bought just didn't last and you didn't have money to get more. Never true 01/10/2024 PRAPARE - Transportation Answer Date Re corded In the past 12 months, has l ack of transportation kept you from medical appointments or from getting medications? No 12/18 In the past 12 months, has l ack of transportation kept you from meetings, work, or from getting things needed for daily living? No 01/10/2024 Dental Answer Date Recorded Dental: Regular Dentist Unknown 12/25/19 23 Housing Stability Answer Date Recorded What is your living situation today? I have a [facility] place to live 01/10/2024 Sex and Gender Information Value Date Recorded Sex Assigned at Not on file Legal Sex Male 3:31 PM DIETETIC TECHNICIAN REGISTERED Gender Identity Not on file Sexual Orientation Not on file Last Filed Vital Signs Vital Sign Reading Time Taken Comments Blood Pressure 111/62 01/11/2024 2:37 PM DIETETIC TECHNICIAN REGISTERED Pulse 122 01/11/2024 2:37 PM DIETETIC TECHNICIAN REGISTERED Temperature 36.5 C (97.7 F) 01/11/2024 2:37 PM DIETETIC TECHNICIAN REGISTERED Respiratory Rate 26 01/11/2024 2:37 PM DIETETIC TECHNICIAN REGISTERED Oxygen Saturation 97% 01/11/2024 2:37 PM DIETETIC TECHNICIAN REGISTERED Inhaled Oxygen Concentration - - Weight 39.9 kg (87 lb 15.4 oz) 01/11/2024 2:12 A M DIETETIC TECHNICIAN REGISTERED Height 170.2 cm (5' 7) 01/01/2024 9:10 PM DIETETIC TECHNICIAN REGISTERED Body Mass Index 13.78 01/01/2024 9:10 PM DIETETIC TECHNICIAN REGISTERED Plan of Treatment Upcoming Encounters Date Type Department Care Team (Latest Contact Info) Description 01/25/2024 1:30 PM DIETETIC TECHNICIAN REGISTERED Appointment Department of Laboratory Medicine in [address] [phone] Sarah Perry M.D. [address] [place] [phone] 01/25/2024 2:30 PM DIETETIC TECHNICIAN REGISTERED Office Visit Department of Infectious Diseases in [address] [phone] Clara Jones P.A.-C. [address] [place] [phone] 01/25/2024 3:00 PM DIETETIC TECHNICIAN REGISTERED Comprehensive Visit Department of Pulmonary Medicine in [address] [phone] Fidencio Oliva M.D. [address] [place] [phone] Discharge Disposition: Home or Self Care Health Maintenance Due Date Last Done Comments Zoster Vaccines (1 of 2) 1988 DTaP,Tdap,and Td Vaccines (1 - Tdap) 07/11/2011 07/10/2011 RSV vaccine - (32-36 weeks) or 60+ years (1 - 1-dose 75+ series) 2013 Depression Screening (Annual PHQ-2) 02/16/2023 Fall Risk Screen (Annual) 02/16/2023 COVID-19 Vaccine (3 - 2023-25 season) 2023 10/23/2020, 09/10/2020 Influenza Vaccine (#1) 2023 , 11/24/2021, 10/23/2020, Additional history exists Creatinine Level (Kidney Function Test) 01/10/2025 01/11/2024, 01/10/2024, 01/09/2024, Additional history exists Potassium Level 01/10/2025 01/11/2024, 12/18, 01/09/2024, Additional history exists Sodium Level 01/10/2025 01/11/2024, 12/18, 01/09/2024, Additional history exists Pneumococcal vaccine (65+ years) Completed 11/25/2017, 12/18/2010 IPV Vaccines Aged Out No longer eligi ble based on patient's age to complete this topic Procedures Procedure Name Priority Date/Time Associated Diagnosis Comments FL SWALLOW FUNCTION WITH VIDEO AND SPEECH RAD - Routine (most inpatients and all outpatients) 01/11/2024 1:48 PM DIETETIC TECHNICIAN REGISTERED TESTING LOCATION Timed 01/11/2024 11:5 1 AM DIETETIC TECHNICIAN REGISTERED TYPE AND SCREEN Timed 01/11/2024 11:51 AM DIETETIC TECHNICIAN REGISTERED HEMOGLOBIN, B Timed 01/11/2024 11:51 AM DIETETIC TECHNICIAN REGISTERED DX CHEST PORTABLE 1 VIEW RAD - Routine (most inpatients and all outpatients) 01/11/2024 6:54 AM DIETETIC TECHNICIAN REGISTERED PHOSPHORUS (INORGANIC), S Routine 01/11/2024 4:48 AM DIETETIC TECHNICIAN REGISTERED MAGNESIUM, S Routine 01/11/2024 4:48 AM DIETETIC TECHNICIAN REGISTERED BASIC METABOLIC PANEL, S/P Routine 01/11/2024 4:48 AM DIETETIC TECHNICIAN REGISTERED CBC WITH DIFFERENTIAL, B Routine 01/11/2024 4:48 AM DIETETIC TECHNICIAN REGISTERED HEPATIC FUNCTION PANEL, S Routine 01/11/2024 4:48 AM DIETETIC TECHNICIAN REGISTERED DX CHEST PORTABLE 1 VIEW RAD - Routine (most inpatients and all outpatients) 01/10/2024 6:50 AM DIETETIC TECHNICIAN REGISTERED PHOSPHORUS (INORGANIC), S Routine 01/10/2024 6:25 AM DIETETIC TECHNICIAN REGISTERED MAGNESIUM, S Routine 01/10/2024 6:25 AM DIETETIC TECHNICIAN REGISTERED BASIC METABOLIC PANEL, S/P Routine 01/10/2024 6:25 AM DIETETIC TECHNICIAN REGISTERED CBC WITH DIFFERENTIAL, B Routine 01/10/2024 6:25 AM DIETETIC TECHNICIAN REGISTERED HEPATIC FUNCTION PANEL, S Routine 01/10/2024 6:25 AM DIETETIC TECHNICIAN REGISTERED DX CHEST PORTABLE 1 VIEW RAD - Routine (most inpatients and all outpatients) 01/09/2024 6:50 AM DIETETIC TECHNICIAN REGISTERED MORPHOLOGY EVALUATION Routine 01/09/2024 6:42 AM DIETETIC TECHNICIAN REGISTERED MANUAL DIFFERENTIAL, B Routine 01/09/2024 6:42 AM DIETETIC TECHNICIAN REGISTERED PHOSPHORUS (INORGANIC), S Routine 01/09/2024 6:42 AM DIETETIC TECHNICIAN REGISTERED MAGNESIUM, S Routine 01/09/2024 6:42 AM DIETETIC TECHNICIAN REGISTERED BASIC METABOLIC PANEL, S/P Routine 01/09/2024 6:42 AM DIETETIC TECHNICIAN REGISTERED CBC WITH DIFFERENTIAL, B Routine 01/09/2024 6:42 AM DIETETIC TECHNICIAN REGISTERED HEPATIC FUNCTION PANEL, S Routine 01/09/2024 6:42 AM DIETETIC TECHNICIAN REGISTERED CT CHEST WITHOUT IV CONTRAST RAD - Routine (most inpatients and all outpatients) 01/08/2024 1:11 PM DIETETIC TECHNICIAN REGISTERED DX CHEST 1 VIEW RAD - Routine (most inpatients and all outpatients) 01/08/2024 7:16 AM DIETETIC TECHNICIAN REGISTERED MORPHOLOGY EVALUATION Routine 01/08/2024 4:47 AM DIETETIC TECHNICIAN REGISTERED MANUAL DIFFERENTIAL, B Routine 01/08/2024 4:47 AM DIETETIC TECHNICIAN REGISTERED PHOSPHORUS (INORGANIC), S Routine 01/08/2024 4:47 AM DIETETIC TECHNICIAN REGISTERED MAGNESIUM, S Routine 01/08/2024 4:47 AM DIETETIC TECHNICIAN REGISTERED BASIC METABOLIC PANEL, S/P Routine 01/08/2024 4:47 AM DIETETIC TECHNICIAN REGISTERED CBC WITH DIFFERENTIAL, B Routine 01/08/2024 4:47 AM DIETETIC TECHNICIAN REGISTERED HEPATIC FUNCTION PANEL, S Routine 01/08/2024 4:47 AM DIETETIC TECHNICIAN REGISTERED HEMOGLOBIN, B Timed 01/07/2024 3:50 PM DIETETIC TECHNICIAN REGISTERED DX CHEST 1 VIEW RAD - Routine (most inpatients and all outpatients) 01/07/2024 7:14 AM DIETETIC TECHNICIAN REGISTERED MORPHOLOGY EVALUATION Routine 01/07/2024 5:29 AM DIETETIC TECHNICIAN REGISTERED PHOSPHORUS (INORGANIC), S Routine 01/07/2024 5:29 AM DIETETIC TECHNICIAN REGISTERED MAGNESIUM, S Routine 01/07/2024 5:29 AM DIETETIC TECHNICIAN REGISTERED BASIC METABOLIC PANEL, S/P Routine 01/07/2024 5:29 AM DIETETIC TECHNICIAN REGISTERED CBC WITH DIFFERENTIAL, B Routine 01/07/2024 5:29 AM DIETETIC TECHNICIAN REGISTERED HEPATIC FUNCTION PANEL, S Routine 01/07/2024 5:29 AM DIETETIC TECHNICIAN REGISTERED MISCELLANEOUS SENT OUT LAB TEST Routine 01/06/2024 11:36 AM DIETETIC TECHNICIAN REGISTERED TROPHERYMA WHIPPLEI PCR, B Routine 01/06/2024 11:36 AM DIETETIC TECHNICIAN REGISTERED HC REF INF DIS DNA/PCR/NGS SEQ Routine 01/06/2024 10:59 AM DIETETIC TECHNICIAN REGISTERED DX CHEST 1 VIEW RAD - Routine (most inpatients and all outpatients) 01/06/2024 7:19 AM DIETETIC TECHNICIAN REGISTERED MORPHOLOGY EVALUATION Timed 01/06/2024 5:37 AM DIETETIC TECHNICIAN REGISTERED MANUAL DIFFERENTIAL, B Timed 01/06/2024 5:37 AM DIETETIC TECHNICIAN REGISTERED MAGNESIUM, S Timed 01/06/2024 5:37 AM DIETETIC TECHNICIAN REGISTERED CBC WITH DIFFERENTIAL, B Timed 01/06/2024 5:37 AM DIETETIC TECHNICIAN REGISTERED RENAL FUNCTION PANEL, S Timed 01/06/2024 5:37 AM DIETETIC TECHNICIAN REGISTERED ECG STAT 01/06/2024 5:32 AM DIETETIC TECHNICIAN REGISTERED IR CHEST TUBE PLACEMENT RAD - Routine (most inpatients and all outpatients) 01/05/2024 1:42 PM DIETETIC TECHNICIAN REGISTERED CYTOLOGY NON-MATH AND SCIENCES DEPARTMENT CHAIR Routine 01/05/2024 12:5 0 PM DIETETIC TECHNICIAN REGISTERED GLUCOSE, BODY FLUID Timed 01/05/2024 1 2:50 PM DIETETIC TECHNICIAN REGISTERED TRIGLYCERIDES, BF Timed 01/05/2024 12: 50 PM DIETETIC TECHNICIAN REGISTERED PROTEIN, TOTAL, BF Timed 01/05/2024 12 :50 PM DIETETIC TECHNICIAN REGISTERED PH, PLEURAL FLUID Timed 01/05/2024 12: 50 PM DIETETIC TECHNICIAN REGISTERED LACTATE DEHYDROGENASE (LD), BF Timed 01/05/2024 12:50 PM DIETETIC TECHNICIAN REGISTERED CELL COUNT AND DIFFERENTIAL, BF Timed 01/05/2024 12:50 PM DIETETIC TECHNICIAN REGISTERED BACTERIAL CULTURE, ANAEROBIC + SUSC Timed 01/05/2024 12:50 PM DIETETIC TECHNICIAN REGISTERED GRAM STAIN Timed 01/05/2024 12:50 PM DIETETIC TECHNICIAN REGISTERED BACTERIAL CULTURE, AEROBIC + SUSC Timed 01/05/2024 12:50 PM DIETETIC TECHNICIAN REGISTERED MORPHOLOGY EVALUATION Routine 01/05/2024 5:52 AM DIETETIC TECHNICIAN REGISTERED MANUAL DIFFERENTIAL, B Routine 01/05/2024 5:52 AM DIETETIC TECHNICIAN REGISTERED BASIC METABOLIC PANEL, S/P Routine 01/05/2024 5:52 AM DIETETIC TECHNICIAN REGISTERED CBC WITH DIFFERENTIAL, B Routine 01/05/2024 5:52 AM DIETETIC TECHNICIAN REGISTERED PNEUMONIA PANEL, PCR Routine 01/04/2024 7:45 PM DIETETIC TECHNICIAN REGISTERED GRAM STAIN Routine 01/04/2024 7:45 PM DIETETIC TECHNICIAN REGISTERED BACTERIAL CULTURE, AEROBIC + SUSC, RESP Routine 01/04/2024 7:45 PM DIETETIC TECHNICIAN REGISTERED NASAL SCREEN FOR MRSA BY RAPID PCR Routine 01/04/2024 7:45 PM DIETETIC TECHNICIAN REGISTERED NURSING IMAGE EXAM Routine 01/04/2024 7: 40 PM DIETETIC TECHNICIAN REGISTERED (TTE) 2D ECHO DOPPLER COLOR AND CONTRAST Routine 01/04/2024 10:38 AM DIETETIC TECHNICIAN REGISTERED HC URINALYSIS AUTO WO MICRO Routine 01/04/2024 5:56 AM DIETETIC TECHNICIAN REGISTERED PROTEIN/CREATININE RATIO, RANDOM, URINE Routine 01/04/2024 5:56 AM DIETETIC TECHNICIAN REGISTERED URINALYSIS WITH MICROSCOPIC IF INDICATED, U Routine 01/04/2024 5:56 AM DIETETIC TECHNICIAN REGISTERED SODIUM, RANDOM, U Routine 01/04/2024 5:5 6 AM DIETETIC TECHNICIAN REGISTERED NT-PRO B-TYPE NATRIURETIC PEPTIDE (BNP), S Routine 01/04/2024 4:56 AM DIETETIC TECHNICIAN REGISTERED PARATHYROID HORMONE (PTH), S Routine 01/04/2024 4:56 AM DIETETIC TECHNICIAN REGISTERED IRON AND TOT IRON-BINDING CAPACITY, S/P Routine 01/04/2024 4:56 AM DIETETIC TECHNICIAN REGISTERED FERRITIN, S Routine 01/04/2024 4:56 AM DIETETIC TECHNICIAN REGISTERED BASIC METABOLIC PANEL, S/P Routine 01/04/2024 4:56 AM DIETETIC TECHNICIAN REGISTERED CBC WITH DIFFERENTIAL, B Routine 01/04/2024 4:56 AM DIETETIC TECHNICIAN REGISTERED CYTOLOGY NON-MATH AND SCIENCES DEPARTMENT CHAIR Timed 01/03/2024 5:09 PM DIETETIC TECHNICIAN REGISTERED US THORACENTESIS RIGHT WITH IMAGING GUIDANCE RAD - Routine (most inpatients and all outpatients) 01/03/2024 5:04 PM DIETETIC TECHNICIAN REGISTERED BASIC METABOLIC PANEL, S/P Timed 01/03/2024 1:56 PM DIETETIC TECHNICIAN REGISTERED HEMODIALYSIS Routine 01/03/2024 11:28 AM DIETETIC TECHNICIAN REGISTERED BACTERIA / ALIX CULTURE, BLOOD Routine 01/03/2024 10:53 AM DIETETIC TECHNICIAN REGISTERED LACTATE FOR SEPSIS WITH REFLEX Routine 01/03/2024 10:52 AM DIETETIC TECHNICIAN REGISTERED BACTERIA / ALIX CULTURE, BLOOD Routine 01/03/2024 10:52 AM DIETETIC TECHNICIAN REGISTERED ALBUMIN, S/P Routine 01/03/2024 10:51 AM DIETETIC TECHNICIAN REGISTERED HEMODIALYSIS Routine 01/03/2024 8:16 AM DIETETIC TECHNICIAN REGISTERED VITAMIN D, IMMUNOASSAY, TOTAL, S Routine 01/03/2024 6:42 AM DIETETIC TECHNICIAN REGISTERED NT-PRO B-TYPE NATRIURETIC PEPTIDE (BNP), S Routine 01/03/2024 6:42 AM DIETETIC TECHNICIAN REGISTERED CALCIUM, IONIZED, S/B Routine 01/03/2024 6:42 AM DIETETIC TECHNICIAN REGISTERED PH BLOOD GAS Routine 01/03/2024 6:42 AM DIETETIC TECHNICIAN REGISTERED CBC WITH DIFFERENTIAL, B Routine 01/03/2024 6:42 AM DIETETIC TECHNICIAN REGISTERED BASIC METABOLIC PANEL, S/P Routine 01/03/2024 6:42 AM DIETETIC TECHNICIAN REGISTERED QUANTIFERON-TB GOLD PLUS, B Routine 01/03/2024 6:42 AM DIETETIC TECHNICIAN REGISTERED HBC TOTAL AB, SERUM Routine 01/03/2024 6 :42 AM DIETETIC TECHNICIAN REGISTERED HBS ANTIBODY, SERUM Routine 01/03/2024 6 :42 AM DIETETIC TECHNICIAN REGISTERED HEPATITIS B SURFACE ANTIGEN Routine 01/03/2024 6:42 AM DIETETIC TECHNICIAN REGISTERED LEUKEMIA/LYMPHOMA, PHENOTYPE, V Timed 01/03/2024 6:10 AM DIETETIC TECHNICIAN REGISTERED CHOLESTEROL, BF Timed 01/03/2024 6:10 AM DIETETIC TECHNICIAN REGISTERED GLUCOSE, BODY FLUID Timed 01/03/2024 6 :10 AM DIETETIC TECHNICIAN REGISTERED CELL COUNT AND DIFFERENTIAL, BF Timed 01/03/2024 6:10 AM DIETETIC TECHNICIAN REGISTERED PROTEIN, TOTAL, BF Timed 01/03/2024 6: 10 AM DIETETIC TECHNICIAN REGISTERED LACTATE DEHYDROGENASE (LD), BF Timed 01/03/2024 6:10 AM DIETETIC TECHNICIAN REGISTERED M TUBERCULOSIS COMPLEX PCR, V Timed 01/03/2024 6:10 AM DIETETIC TECHNICIAN REGISTERED BROAD RANGE BACTERIA PCR AND SEQUENCING Timed 01/03/2024 6:10 AM DIETETIC TECHNICIAN REGISTERED BACTERIAL CULTURE, ANAEROBIC + SUSC Timed 01/03/2024 6:10 AM DIETETIC TECHNICIAN REGISTERED BACTERIAL CULTURE, AEROBIC + SUSC Timed 01/03/2024 6:10 AM DIETETIC TECHNICIAN REGISTERED GRAM STAIN Timed 01/03/2024 6:10 AM DIETETIC TECHNICIAN REGISTERED DX CHEST PORTABLE 1 VIEW RAD - Semiurgent (Fast; most ED patients; some inpatients) 01/02/2024 3:59 PM DIETETIC TECHNICIAN REGISTERED MC ANE CENTRAL LINE GENERIC PERFORMABLE Routine 01/02/2024 3:47 PM DIETETIC TECHNICIAN REGISTERED Failure Renal Acute (Acute Kidney Injury) (HCC) LDA ANE CENTRAL LINE DOUBLE LUMEN ADULT Routine 01/02/2024 3:47 PM DIETETIC TECHNICIAN REGISTERED Failure Renal Acute (Acute Kidney Injury) (HCC) [place] US GUIDE VASC ACCESS Routine 01/02/2024 3:47 PM DIETETIC TECHNICIAN REGISTERED Failure Renal Acute (Acute Kidney Injury) (HCC) [place] INS NON-BLAINE CVC >5YR Routine 01/02/2024 3:47 PM DIETETIC TECHNICIAN REGISTERED Failure Renal Acute (Acute Kidney Injury) (HCC) GENERAL SURGERY IMAGE EXAM Routine 01/02/2024 3:30 PM DIETETIC TECHNICIAN REGISTERED HEMODIALYSIS Routine 01/02/2024 2:44 PM DIETETIC TECHNICIAN REGISTERED MAGNESIUM, S Routine 01/02/2024 11:32 AM DIETETIC TECHNICIAN REGISTERED BASIC METABOLIC PANEL, S/P Routine 01/02/2024 11:32 AM DIETETIC TECHNICIAN REGISTERED US KIDNEYS BILATERAL WITH BLADDER RAD - Routine (most inpatients and all outpatients) 01/02/2024 10:15 AM DIETETIC TECHNICIAN REGISTERED DX CHEST PORTABLE 1 VIEW RAD - Semiurgent (Fast; most ED patients; some inpatients) 01/02/2024 4:24 AM DIETETIC TECHNICIAN REGISTERED CREATINE KINASE (CK), S Routine 01/02/2024 4:10 AM DIETETIC TECHNICIAN REGISTERED ALBUMIN, S/P Routine 01/02/2024 4:10 AM DIETETIC TECHNICIAN REGISTERED CALCIUM, IONIZED, S/B Routine 01/02/2024 4:10 AM DIETETIC TECHNICIAN REGISTERED PH BLOOD GAS Routine 01/02/2024 4:10 AM DIETETIC TECHNICIAN REGISTERED PHOSPHORUS (INORGANIC), S Routine 01/02/2024 3:41 AM DIETETIC TECHNICIAN REGISTERED MAGNESIUM, S Routine 01/02/2024 3:41 AM DIETETIC TECHNICIAN REGISTERED LACTATE, B STAT 01/02/2024 3:41 AM DIETETIC TECHNICIAN REGISTERED NT-PRO B-TYPE NATRIURETIC PEPTIDE (BNP), S Routine 01/02/2024 3:41 AM DIETETIC TECHNICIAN REGISTERED VENOUS BLOOD GAS W/COOX, B Routine 01/02/2024 3:41 AM DIETETIC TECHNICIAN REGISTERED OSMOLALITY, S Routine 01/02/2024 3:41 AM DIETETIC TECHNICIAN REGISTERED CBC WITH DIFFERENTIAL, B Routine 01/02/2024 3:41 AM DIETETIC TECHNICIAN REGISTERED BASIC METABOLIC PANEL, S/P Routine 01/02/2024 3:41 AM DIETETIC TECHNICIAN REGISTERED ECG Routine 01/02/2024 12:39 AM DIETETIC TECHNICIAN REGISTERED OUTSIDE CT BODY Routine 01/01/2024 2:25 PM DIETETIC TECHNICIAN REGISTERED OUTSIDE CT NEURO Routine 01/01/2024 2:20 PM DIETETIC TECHNICIAN REGISTERED from Last 3 Months Results * FL Swallow Function with Video and Speech or OT (01/11/2024 1:48 PM DIETETIC TECHNICIAN REGISTERED) Anatomical Region Laterality Modality Gastro Intestinal, Abdominal RST LOS, Abdominal ARZ LOS, Abdominal FLA LOS N/A Digital Radiography Impressions 01/11/2024 4:00 PM DIETETIC TECHNICIAN REGISTERED Normal modified barium swallow study Narrative 01/11/2024 4:00 PM DIETETIC TECHNICIAN REGISTERED EXAM: FL SWALLOW FUNCTION WITH VIDEO AND SPEECH OR OT COMPARISON: None FINDINGS: Lateral fluoroscopy was performed while the patient sat upright, and drank various consistencies of barium including thin, pudding and cookie consistency. Degenerative changes in the cervical spine are seen. There is no nasopharyngeal reflux during swallowing. There is no penetration or aspiration when any consistency barium is swallowed. Procedure Note Wilfrido Camarena M.D. - 01/11/2024 EXAM: FL SWALLOW FUNCTION WITH VIDEO AND SPEECH OR OT COMPARISON: None FINDINGS: Lateral fluoroscopy was performed while the patient sat upright,and drank various consistencies of barium including thin, pudding andcookie consistency. Degenerative changes in the cervical spine are seen. There is no nasopharyngeal reflux during swallowing. There is nopenetration or aspiration when any consistency barium is swallowed. IMPRESSION: Normal modified barium swallow study us Jeremías Fernandez M.D. IMG FLUOROSCOPY PROCEDURES F inal Result * Testing Location (01/11/2024 11:51 AM DIETETIC TECHNICIAN REGISTERED) Testing Location [facility] DEFAULT 01/11/2024 11:57 AM DIETETIC TECHNICIAN REGISTERED [facility] Blood 01/11/2024 11:5 1 AM DIETETIC TECHNICIAN REGISTERED 01/11/2024 11:57 AM DIETETIC TECHNICIAN REGISTERED us Jeremías Fernandez M.D. LAB BLOOD BANK TEST ORDERABL ES Final Result [facility] [address] [place] [id number], [facility] in [address] [id number] * (ABNORMAL) Hemoglobin (01/11/2024 11:51 AM DIETETIC TECHNICIAN REGISTERED) Only the most recent of2 resultswithin the time period is included. Hemoglobin 8.1(L) 13.2 - 16.6 g/dL 01/11/2024 12:00 PM DIETETIC TECHNICIAN REGISTERED MKTO Blood (Blood, Venous) 01/11/2024 11:51 AM DIETETIC TECHNICIAN REGISTERED 01/11/2024 11:57 AM DIETETIC TECHNICIAN REGISTERED Jeremías Fernandez M.D. LAB BLOOD ADD-ON Final Resul t Performing Organization Address City/[facility]/ZIP Co de Phone Number [facility] [address] [place] [address], [facility] [address] [place] [phone] * Type and Screen (with Reflex Antibody ID) (01/11/2024 11:51 AM DIETETIC TECHNICIAN REGISTERED) ABO Group B 01/11/2024 12:58 PM DIETETIC TECHNICIAN REGISTERED MKTO Rh Type NEG 01/11/2024 12:58 PM DIETETIC TECHNICIAN REGISTERED MKTO Antibody Screen NEG 12:58 PM DIETETIC TECHNICIAN REGISTERED MKTO Type & Screen Expiration 01/14/2024 23:59 01/11/2024 12:58 PM DIETETIC TECHNICIAN REGISTERED MKTO ELXM Eligible Y 01/11/2024 12:58 PM DIETETIC TECHNICIAN REGISTERED MKTO Blood (Blood, Venous) 01/11/2024 11:51 AM DIETETIC TECHNICIAN REGISTERED 01/11/2024 11:57 AM DIETETIC TECHNICIAN REGISTERED us Jeremías Fernandez M.D. LAB BLOOD BANK TEST ORDERABL ES Final Result Performing Organization Address [facility] Co de Phone Number [facility] [address] [place] [address], [facility] [place] [address] [place] [address] * DX Chest Portable 1 View (01/11/2024 6:54 AM DIETETIC TECHNICIAN REGISTERED) Only the most recent of5 resultswithin the time period is included. Anatomical Region Laterality Modality Chest, Thoracic RST LOS, Tho racic ARZ LOS, Thoracic FLA LOS N/A Digital Radiography Impressions 01/11/2024 7:51 AM DIETETIC TECHNICIAN REGISTERED No change since 01/10/2024. Small right pleural effusion with associated atelectasis. The left lung remains clear. No pneumothorax. Normal heart size. Aortic calcifications. Narrative 01/11/2024 7:51 AM DIETETIC TECHNICIAN REGISTERED EXAM: DX CHEST PORTABLE 1 VIEW Procedure Note Yovany Shrestha M.D. - 01/11/2024 EXAM: DX CHEST PORTABLE 1 VIEW IMPRESSION: No change since 01/10/2024. Small right pleural effusion with associatedatelectasis. The left lung remains clear. No pneumothorax. Normal heartsize. Aortic calcifications. us Fidencio Oliva M.D. IMG DIAGNOSTIC IMAGING PROCED URES Final Result * (ABNORMAL) Hepatic Function Panel (01/11/2024 4:48 AM DIETETIC TECHNICIAN REGISTERED) Only the most recent of5 resultswithin the time period is included. Bilirubin, Total, P 0.2 0.0 - 1.2 mg/dL 01/11/2024 5:37 AM DIETETIC TECHNICIAN REGISTERED MKTO Bilirubin, Direct, P 0.1 0.0 - 0.3 mg/dL 01/11/2024 5:37 AM DIETETIC TECHNICIAN REGISTERED MKTO Aspartate Aminotransferase (AST), P 23 8 - 48 U/L 01/11/2024 5:37 AM DIETETIC TECHNICIAN REGISTERED MKTO Alanine Aminotransferase (ALT), P 11 7 - 55 U/L 01/11/2024 5:37 AM DIETETIC TECHNICIAN REGISTERED MKTO Alkaline Phosphatase, P 83 40 - 129 U/L 01/11/2024 5:37 AM DIETETIC TECHNICIAN REGISTERED MKTO Albumin, P 2.4(L) 3.5 - 5.0 g/dL 01/11/2024 5:37 AM DIETETIC TECHNICIAN REGISTERED MKTO Protein, Total, P 5.2(L) 6.3 - 7.9 g/dL 01/11/2024 5:37 AM DIETETIC TECHNICIAN REGISTERED MKTO Blood (Blood, Venous) 01/11/2024 4:48 AM DIETETIC TECHNICIAN REGISTERED 01/11/2024 5:11 AM DIETETIC TECHNICIAN REGISTERED us Jeremías Fernandze M.D. LAB BLOOD ADD-ON Final Resul t [facility] [address] [place] [address], [facility] MKTO [facility] in [place] [address] [place] [address] * (ABNORMAL) CBC with Differential, Blood (01/11/2024 4:48 AM DIETETIC TECHNICIAN REGISTERED) Only the most recent of10 resultswithin the time period is included. Hemoglobin 7.5(L) 13.2 - 16.6 g/dL 01/11/2024 5:14 AM DIETETIC TECHNICIAN REGISTERED MKTO Hematocrit 24.9(L) 38.3 - 48.6 % 01/11/2024 5:14 AM DIETETIC TECHNICIAN REGISTERED MKTO Erythrocytes 2.52(L) 4.35 - 5.65 x10(12)/L 01/11/2024 5:14 AM DIETETIC TECHNICIAN REGISTERED MKTO MCV 98.8(H) 78.2 - 97.9 fL 01/11/2024 5:14 AM DIETETIC TECHNICIAN REGISTERED MKTO RBC Distrib Width 14.5 11.8 - 14.5 % 01/11/2024 5:14 AM DIETETIC TECHNICIAN REGISTERED MKTO Platelet Count 243 135 - 317 x10(9)/L 01/11/2024 5:14 AM DIETETIC TECHNICIAN REGISTERED MKTO Leukocytes 8.8 3.4 - 9.6 x10(9)/L 01/11/2024 5:14 AM DIETETIC TECHNICIAN REGISTERED MKTO Neutrophils 6.61(H) 1.56 - 6.45 x10(9)/L 01/11/2024 5:14 AM DIETETIC TECHNICIAN REGISTERED MKTO Lymphocytes 0.97 0.95 - 3.07 x10(9)/L 01/11/2024 5:14 AM DIETETIC TECHNICIAN REGISTERED MKTO Monocytes 0.98(H) 0.26 - 0.81 x10(9)/L 01/11/2024 5:14 AM DIETETIC TECHNICIAN REGISTERED MKTO Eosinophils 0.15 0.03 - 0.48 x10(9)/L 01/11/2024 5:14 AM DIETETIC TECHNICIAN REGISTERED MKTO Basophils 0.07 0.01 - 0.08 x10(9)/L 01/11/2024 5:14 AM DIETETIC TECHNICIAN REGISTERED MKTO Blood (Blood, Venous) 01/11/2024 4:48 AM DIETETIC TECHNICIAN REGISTERED 01/11/2024 5:11 AM DIETETIC TECHNICIAN REGISTERED us Jeremías Fernandez M.D. LAB BLOOD ADD-ON Final Resul t [facility] [address] [place] [address], [address] [address] * Phosphorus Inorganic (01/11/2024 4:48 AM DIETETIC TECHNICIAN REGISTERED) Only the most recent of6 resultswithin the time period is included. Phosphorus (Inorganic), P 3.1 2.5 - 4.5 mg/dL 01/11/2024 5:37 AM DIETETIC TECHNICIAN REGISTERED MKTO Blood (Blood, Venous) 01/11/2024 4:48 AM DIETETIC TECHNICIAN REGISTERED 01/11/2024 5:11 AM DIETETIC TECHNICIAN REGISTERED us Jeremías Fernandez M.D. LAB BLOOD ADD-ON Final Resul t Performing Organization Address City/[facility]/ZIP Co de Phone Number [facility] [address] [place] [address] * Magnesium (01/11/2024 4:48 AM DIETETIC TECHNICIAN REGISTERED) Only the most recent of8 resultswithin the time period is included. Magnesium, P 1.7 1.7 - 2.3 mg/dL 01/11/2024 5:37 AM DIETETIC TECHNICIAN REGISTERED [facility] Blood (Blood, Venous) 01/11/2024 4:48 AM DIETETIC TECHNICIAN REGISTERED 01/11/2024 5:11 AM DIETETIC TECHNICIAN REGISTERED us Jeremías Fernandez M.D. LAB BLOOD ADD-ON Final Resul t [facility] [address] [place] [address] * (ABNORMAL) Basic Metabolic Panel (01/11/2024 4:48 AM DIETETIC TECHNICIAN REGISTERED) Only the most recent of11 resultswithin the time period is included. Potassium, P 4.3 3.6 - 5.2 mmol/L 01/11/2024 5:37 AM DIETETIC TECHNICIAN REGISTERED MKTO Sodium, P 143 135 - 145 mmol/L 01/11/2024 5:37 AM DIETETIC TECHNICIAN REGISTERED MKTO Chloride, P 110(H) 98 - 107 mmol/L 01/11/2024 5:37 AM DIETETIC TECHNICIAN REGISTERED MKTO Bicarbonate, P 24 22 - 29 mmol/L 01/11/2024 5:37 AM DIETETIC TECHNICIAN REGISTERED MKTO Anion Gap, P 9 7 - 15 01/11/2024 5:37 AM DIETETIC TECHNICIAN REGISTERED MKTO BUN (Blood Urea Nitrogen), P 33(H) 8 - 24 mg/dL 01/11/2024 5:37 AM DIETETIC TECHNICIAN REGISTERED MKTO Creatinine 1.74(H) 0.74 - 1.35 mg/dL 01/11/2024 5:37 AM DIETETIC TECHNICIAN REGISTERED MKTO Estimated GFR (eGFR) 38(L) >=60 mL/min/BSA 01/11/2024 5:37 AM DIETETIC TECHNICIAN REGISTERED MKTO Comment: Estimated GFR calculated using the 2020 CKD_EPI creatinine equation. Calcium, Total, P 7.8(L) 8.8 - 10.2 mg/dL 01/11/2024 5:37 AM DIETETIC TECHNICIAN REGISTERED MKTO Glucose, P 92 70 - 140 mg/dL 01/11/2024 5:37 AM DIETETIC TECHNICIAN REGISTERED MKTO Blood (Blood, Venous) 01/11/2024 4:48 AM DIETETIC TECHNICIAN REGISTERED 01/11/2024 5:11 AM DIETETIC TECHNICIAN REGISTERED us Jeremías Fernandez M.D. LAB BLOOD ADD-ON Final Resul t [facility] [address] [place] [address], [facility] MKTO [facility] [place] [address] * (ABNORMAL) Morphology Evaluation (01/09/2024 6:42 AM DIETETIC TECHNICIAN REGISTERED) Only the most recent of5 resultswithin the time period is included. RBC Morphology See Specific Findings 01/09/2024 8:09 AM DIETETIC TECHNICIAN REGISTERED MKTO PLT Morphology Normal 01/09/2024 8:09 AM DIETETIC TECHNICIAN REGISTERED MKTO PLT Estimate Adequate Adequate 01/09/2024 8:09 AM DIETETIC TECHNICIAN REGISTERED MKTO Anisocytosis Slight(A) 01/09/2024 8:09 AM DIETETIC TECHNICIAN REGISTERED MKTO Basophilic Stippling Slight(A) 01/09/2024 8:09 AM DIETETIC TECHNICIAN REGISTERED MKTO Elliptocytes Slight(A) Not Seen 01/09/2024 8:09 AM DIETETIC TECHNICIAN REGISTERED MKTO Poikilocytosis Slight(A) Not Seen 01/09/2024 8:09 AM DIETETIC TECHNICIAN REGISTERED MKTO Blood 01/09/2024 6:42 AM DIETETIC TECHNICIAN REGISTERED 01/09/2024 7:05 AM DIETETIC TECHNICIAN REGISTERED us Jeremías Fernandez M.D. LAB BLOOD ADD-ON Final Resul t [facility] [address] [place] [address], [facility] MKTO [facility] [place] [address] * (ABNORMAL) Manual Differential, Blood (01/09/2024 6:42 AM DIETETIC TECHNICIAN REGISTERED) Only the most recent of4 resultswithin the time period is included. Segmented Neutrophils 87(H) 50 - 75 % 01/09/2024 8:09 AM DIETETIC TECHNICIAN REGISTERED MKTO Lymphocytes % 8(L) 18 - 42 % 01/09/2024 8:09 AM DIETETIC TECHNICIAN REGISTERED MKTO Monocytes 1(L) 2 - 11 % 01/09/2024 8:09 AM DIETETIC TECHNICIAN REGISTERED MKTO Eosinophils 1 1 - 3 % 01/09/2024 8:09 AM DIETETIC TECHNICIAN REGISTERED MKTO Metamyelocytes 1(H) <1 % 01/09/2024 8:09 AM DIETETIC TECHNICIAN REGISTERED MKTO Myelocytes 2(H) <0.5 % 01/09/2024 8:09 AM DIETETIC TECHNICIAN REGISTERED MKTO Manual Absolute Neutrophil Count 10.27(H) 1.56 - 6.45 x10(9)/L 01/09/2024 8:09 AM DIETETIC TECHNICIAN REGISTERED MKTO Comment: ----ADDITIONAL INFORMATION---- The manual absolute neutrophil count is derived from a manual differential count and therefore is not exactly comparable to the automated absolute neutrophil count. Blood 01/09/2024 6:42 AM DIETETIC TECHNICIAN REGISTERED 01/09/2024 7:05 AM DIETETIC TECHNICIAN REGISTERED us Jeremías Fernandez M.D. LAB BLOOD ADD-ON Final Resul t [facility] [address] [place] [address], [place] MKTO [facility] in [place] [address] [place] [address] * CT Chest without IV Contrast (01/08/2024 1:11 PM DIETETIC TECHNICIAN REGISTERED) Anatomical Region Laterality Modality Chest, Thoracic RST LOS, Tho racic ARZ LOS, Thoracic FLA LOS N/A Computed Tomography Impressions 01/08/2024 2:48 PM DIETETIC TECHNICIAN REGISTERED 1. Loculated right pleural collection with adjacent consolidation or atelectasis in the right lower lobe. 2. Right chest tube pigtail is positioned at the interface of the pleural space with the adjacent chest wall. Correlation with chest tube function recommended. 3. No fluid collection within the chest wall. Small right chest wall emphysema. Narrative 01/08/2024 2:48 PM DIETETIC TECHNICIAN REGISTERED EXAM: CT CHEST WITHOUT IV CONTRAST COMPARISON: Chest CT 01/01/2024 FINDINGS: There is a small to moderate loculated right pleural collection with adjacent consolidation or atelectasis in the right lower lobe and linear/bandlike atelectasis elsewhere in the right lung. There is a small amount of fluid tracking along the right pulmonary fissures. There is a right lateral approach pigtail chest tube which is positioned at the interface of the collection with the adjacent chest wall. There are foci of soft tissue emphysema in the right chest wall. There is no chest wall fluid collection. Small left pleural effusion. Scattered linear atelectasis or scarring in the left lung. A few small pulmonary nodules in the right lower lobe, measuring up to 5 mm (series 6 images 269 and 271, see arrows/screen shots). Small amount of dependent debris within the trachea and right main bronchus. Right internal jugular approach central venous catheter terminates at the SVC-innominate confluence. Atherosclerotic calcifications of the coronary arteries. Normal heart size. Trace pericardial fluid. Renal cysts. Degenerative changes of the spine. Sclerotic focus in the T7 vertebral body is most likely a bone island. Compression deformities of T5 and T12 as on previous exam. 3D maximum intensity projection (MIP) images were created on a dependent workstation as ordered by the treating provider and reviewed by the radiologist to increase sensitivity for detection of pulmonary nodules. Procedure Note Michael Munoz M.D., M.S. - 01/08/2024 EXAM: CT CHEST WITHOUT IV CONTRAST COMPARISON: Chest CT 01/01/2024 FINDINGS: There is a small to moderate loculated right pleural collectionwith adjacent consolidation or atelectasis in the right lower lobe andlinear/bandlike atelectasis elsewhere in the right lung. There is a smallamount of fluid tracking along the right pulmonary fissures. There is a right lateral approach pigtail chesttube which is positioned at the interface of the collection with theadjacent chest wall. There are foci of soft tissue emphysema in the rightchest wall. There is no chest wall fluid collection. Small left pleural effusion. Scattered linear atelectasis or scarring inthe left lung. A few small pulmonary nodules in the right lower lobe,measuring up to 5 mm (series 6 images 269 and 271, see arrows/screenshots). Small amount of dependent debris within the trachea and right main bronchus. Right internal jugular approach central venous catheter terminates at theSVC-innominate confluence. Atherosclerotic calcifications of the coronaryarteries. Normal heart size. Trace pericardial fluid. Renal cysts. Degenerative changes of the spine. Sclerotic focus in the T7 vertebralbody is most likely a bone island. Compression deformities of T5 and T12as on previous exam. 3D maximum intensity projection (MIP) images were created on a dependentworkstation as ordered by the treating provider and reviewed by theradiologist to increase sensitivity for detection of pulmonary nodules. IMPRESSION: 1. Loculated right pleural collection with adjacent consolidation oratelectasis in the right lower lobe. 2. Right chest tube pigtail is positioned at the interface of the pleuralspace with the adjacent chest wall. Correlation with chest tube functionrecommended. 3. No fluid collection within the chest wall. Small right chest wallemphysema. us Fidencio Oliva M.D. IM CT PROCEDURES Final Resul t * DX Chest 1 View (01/08/2024 7:16 AM DIETETIC TECHNICIAN REGISTERED) Only the most recent of3 resultswithin the time period is included. Anatomical Region Laterality Modality Chest, Thoracic RST LOS, Tho racic ARZ LOS, Thoracic FLA LOS N/A Digital Radiography Impressions 01/08/2024 7:44 AM DIETETIC TECHNICIAN REGISTERED Interval retraction of the right pleural catheter. The pigtail projects over the lateral chest wall soft tissues and requires correlation with positioning and catheter output. Persisting right pleural effusion/pleural thickening and right basilar airspace opacity. Narrative 01/08/2024 7:44 AM DIETETIC TECHNICIAN REGISTERED EXAM: DX CHEST 1 VIEW COMPARISON: January 07, 2024 FINDINGS: Pleural pigtail catheter has been retracted with the pigtail now seen lateral to the pleural space, presumably within the lateral chest wall soft tissues. Persisting right pleural effusion with pleural thickening and right basilar airspace opacities. Left hemithorax is clear. Cardiac mediastinal silhouette has a stable appearance. Unchanged right neck central venous catheter with tip extending to the SVC. No pneumothorax identified. Secure chat message was sent to Dr. Oliva and Dr. Fernandez at the time of study interpretation. Procedure Note Zhao Chaney M.D. - 01/08/2024 EXAM: DX CHEST 1 VIEW COMPARISON: January 07, 2024 FINDINGS: Pleural pigtail catheter has been retracted with the pigtail nowseen lateral to the pleural space, presumably within the lateral chestwall soft tissues. Persisting right pleural effusion with pleural thickening and rightbasilar airspace opacities. Left hemithorax is clear. Cardiac mediastinal silhouette has a stableappearance. Unchanged right neck central venous catheter with tip extending to theSVC. No pneumothorax identified. Secure chat message was sent to Dr. Oliva and Dr. Fernandez at the time ofstudy interpretation. IMPRESSION: Interval retraction of the right pleural catheter. The pigtail projectsover the lateral chest wall soft tissues and requires correlation withpositioning and catheter output. Persisting right pleural effusion/pleuralthickening and right basilar airspace opacity. us Fidencio Oliva M.D. IMG DIAGNOSTIC IMAGING PROCED URES Final Result * Tropheryma whipplei PCR, Blood (01/06/2024 11:36 AM DIETETIC TECHNICIAN REGISTERED) Specimen Source BLOOD 12:26 PM DIETETIC TECHNICIAN REGISTERED DTL Tropheryma whipplei PCR, B, Result Negative Not Applicable 01/08/2024 12:26 PM DIETETIC TECHNICIAN REGISTERED DTL Comment: ----ADDITIONAL INFORMATION---- This test was developed and its performance characteristics determined by [facility] in a manner consistent with CLIA requirements. This test has not been cleared or approved by the U.S. Food and Drug Administration. Blood (Blood, Venous) 01/06/2024 11:36 AM DIETETIC TECHNICIAN REGISTERED 01/07/2024 8:06 AM DIETETIC TECHNICIAN REGISTERED Sarah Rose M.D. LAB MICROBIOLOG Y - BLOOD ORDERABLES Final Result [facility] [address] [place] [address], [facility] DT [address] [facility] [address] [place] [address] * [id number] [facility] Test for Pathogen Detection - Miscellaneous Test (01/06/2024 11:36 AM DIETETIC TECHNICIAN REGISTERED) Test Name [facility] Test for Pathogen Detection 01/06/2024 11:49 AM DIETETIC TECHNICIAN REGISTERED MKTO Result Specimen sent out; results to follow DEFAULT 01/06/2024 11:49 AM DIETETIC TECHNICIAN REGISTERED MKTO Blood (Blood, Venous) 01/06/2024 11:36 AM DIETETIC TECHNICIAN REGISTERED 01/06/2024 11:49 AM DIETETIC TECHNICIAN REGISTERED Sarah Rose M.D. LAB MISC ORDERA BLES Final Result [facility] [address] [place] [address], [facility] MKTO [facility] in [place] [address] [place] [address] * Misc [facility] - Sent Out Lab (01/06/2024 10:59 AM DIETETIC TECHNICIAN REGISTERED) Test Name [facility] Test for Pathogen Detection 01/06/2024 11:49 AM DIETETIC TECHNICIAN REGISTERED [facility] Result SEE COMMENT 01/11/2024 9:44 AM DIETETIC TECHNICIAN REGISTERED [place] Comment: For final report, select Lab-Send Out Lab Results hyperlink below. 01/06/2024 10:5 9 AM DIETETIC TECHNICIAN REGISTERED 01/07/2024 8:53 AM DIETETIC TECHNICIAN REGISTERED us Sarah Rose M.D. LAB MISC ORDERA BLES Final Result [facility] [address] [place] [id number], [facility] CY[facility]NEY [facility] [address] [place] [phone] * (ABNORMAL) Renal Function Panel (01/06/2024 5:37 AM DIETETIC TECHNICIAN REGISTERED) Potassium, P 3.3(L) 3.6 - 5.2 mmol/L 01/06/2024 6:11 AM DIETETIC TECHNICIAN REGISTERED MKTO Sodium, P 142 135 - 145 mmol/L 01/06/2024 6:11 AM DIETETIC TECHNICIAN REGISTERED MKTO Chloride, P 104 98 - 107 mmol/L 01/06/2024 6:11 AM DIETETIC TECHNICIAN REGISTERED MKTO Bicarbonate, P 25 22 - 29 mmol/L 01/06/2024 6:11 AM DIETETIC TECHNICIAN REGISTERED MKTO Anion Gap, P 13 7 - 15 01/06/2024 6:11 AM DIETETIC TECHNICIAN REGISTERED MKTO BUN (Blood Urea Nitrogen), P 37(H) 8 - 24 mg/dL 01/06/2024 6:11 AM DIETETIC TECHNICIAN REGISTERED MKTO Creatinine 1.91(H) 0.74 - 1.35 mg/dL 01/06/2024 6:11 AM DIETETIC TECHNICIAN REGISTERED MKTO Estimated GFR (eGFR) 34(L) >=60 mL/min/BSA 01/06/2024 6:11 AM DIETETIC TECHNICIAN REGISTERED MKTO Comment: Estimated GFR calculated using the 2020 CKD_EPI creatinine equation. Calcium, Total, P 8.4(L) 8.8 - 10.2 mg/dL 01/06/2024 6:11 AM DIETETIC TECHNICIAN REGISTERED MKTO Glucose, P 92 70 - 140 mg/dL 01/06/2024 6:11 AM DIETETIC TECHNICIAN REGISTERED MKTO Albumin, P 2.7(L) 3.5 - 5.0 g/dL 01/06/2024 6:11 AM DIETETIC TECHNICIAN REGISTERED MKTO Phosphorus (Inorganic), P 2.7 2.5 - 4.5 mg/dL 01/06/2024 6:11 AM DIETETIC TECHNICIAN REGISTERED MKTO Blood (Blood, Venous) 01/06/2024 5:37 AM DIETETIC TECHNICIAN REGISTERED 01/06/2024 5:47 AM DIETETIC TECHNICIAN REGISTERED us Vidhya KrishnaATessa LAB BLOOD ADD-ON Final Resu lt Performing Organization Address City/[facility] Co de Phone Number [facility] [address] [place] [address], [facility] MKTO [facility] [place] [address] * ECG 12 Lead (01/06/2024 5:32 AM DIETETIC TECHNICIAN REGISTERED) Only the most recent of2 resultswithin the time period is included. Ventricular Rate ECG/Min 98 BPM MUSE W[place] Interval 164 ms MUSE QRSD Interval 128 ms MUSE QT Interval 398 ms MUSE QTC Interval 508 ms MUSE P [place] 52 degrees MUSE R [place] -72 degrees MUSE T Wave [place] 53 degrees MUSE 01/06/2024 5:32 AM DIETETIC TECHNICIAN REGISTERED 01/06/2024 5:40 AM DIETETIC TECHNICIAN REGISTERED Impressions MUSE - 01/06/2024 5:40 AM DIETETIC TECHNICIAN REGISTERED Normal sinus rhythm Right bundle branch block [...] ORDERABLES Sury vargas Result Performing Organization Address [facility] Co de Phone Number MUSE NA * IR Chest Tube Placement (01/05/2024 1:42 PM DIETETIC TECHNICIAN REGISTERED) Anatomical Region Laterality Modality Chest, Vascular Intervention al RST LOS, Vascular Interventional ARZ LOS, Vascular Interventional FLA LOS N/A X-Ray Angiography Impressions 01/05/2024 2:17 PM DIETETIC TECHNICIAN REGISTERED 1. Right chest tube placement. Narrative 01/05/2024 2:17 PM DIETETIC TECHNICIAN REGISTERED EXAM: IR CHEST TUBE PLACEMENT HISTORY: R [...] Patient education provided by a care steam box hand. Patient was ready to learn with no apparent learning barriers were identified. Post-procedure care explained; patient expressed understanding of the content. PROCEDURE DETAILS: Sedation: None. Local anesthesia was achieved with lidocaine. Sedation time: None Estimated Blood Loss: Less than 10 mL. TECHNIQUE: Imaging guidance for drain insertion: Ultrasound and fluoroscopy with permanent image storage Access side: Right Catheter: 12 American multipurpose pigtail drain Technique: Image guidance was used to localize the collection. A 5 American Yueh needle catheter was used to access the collection under real time image guidance, and images were saved to PACS. Aspiration yielded purulent fluid. A guidewire was inserted, and the tract was dilated to accommodate a 12 American pigtail drain. The catheter was secured with 2-0 Ethilon suture. The catheter was connected to Pleur-evac Intraprocedural or immediate post-procedural complications: None FINDINGS: Catheter tip location: Final image was demonstrates the catheter tip to be located in the right pleural space Additional observations: N/A PLAN: Follow-up with pulmonology. Procedure Note Shayy Leep M.D. - 01/05/2024 EXAM: IR CHEST TUBE [...] Patient education provided by a care steam box hand. Patient was ready to learn withno apparent learning barriers were identified. Post-procedure careexplained; patient expressed understanding of the content. PROCEDURE DETAILS: Sedation: None. Local anesthesia was achieved with lidocaine. Sedation time: None Estimated Blood Loss: Less than 10 mL. TECHNIQUE: Imaging guidance for drain insertion: Ultrasound and fluoroscopy withpermanent image storage Access side: Right Catheter: 12 American multipurpose pigtail drain Technique: Image guidance was used to localize the collection. A 5 FrenchYueh needle catheter was used to access the collection under real timeimage guidance, and images were saved to PACS. Aspiration yielded purulentfluid. A guidewire was inserted, and the tract was dilated to accommodate a 12 American pigtail drain. Thecatheter was secured with 2-0 Ethilon suture. The catheter was connectedto Pleur-evac Intraprocedural or immediate post-procedural complications: None FINDINGS: Catheter tip location: Final image was demonstrates the catheter tip to belocated in the right pleural space Additional observations: N/A PLAN: Follow-up with pulmonology. IMPRESSION: 1. Right chest tube placement. us Fidencio Oliva M.D. IMG IR PROCEDURES Final Resul t * Cytology Non-MATH AND SCIENCES DEPARTMENT CHAIR (01/05/2024 12:50 PM DIETETIC TECHNICIAN REGISTERED) Only the most recent of2 resultswithin the time period is included. 01/07/2024 3:19 PM DIETETIC TECHNICIAN REGISTERED HKCY Disclaimer This test has been modified from the elementary school science teacher's instructions. Its performance characteristics were determined by [facility] in a manner consistent with CLIA requirements. This test has not been cleared or approved by the U.S. Food and Drug Administration. 01/07/2024 3:19 PM DIETETIC TECHNICIAN REGISTERED HKCY Report electronically signed by LOLY Schwartz. Ch.B. I verify that I have examined all relevant slides/materials for the specimen(s) and rendered or confirmed the diagnosis. 01/07/2024 3:19 PM DIETETIC TECHNICIAN REGISTERED HKCY Gross Description 50 ml of cloudy hubbard fluid received. Specimen fixed at 2:20 pm on 01-05-2024. 2 slides and cell block prepared. 01/07/2024 3:19 PM DIETETIC TECHNICIAN REGISTERED HKCY Source A. Pleural, fluid 024 3:19 PM DIETETIC TECHNICIAN REGISTERED HK[facility] Interpretation A. Pleural, fluid (smears/cell block): Negative for malignancy. Acute inflammation. COMMENT Immunohistochemica l stains with appropriate reactive controls was performed on separate slides on cell block. CK7, WT1, calretinin, TTF1, Napsin A, p40, CK20, NKX3.1 and CDX2: Negative Controls reviewed, results acceptable. 01/07/2024 3:19 PM DIETETIC TECHNICIAN REGISTERED HKCY Fluid 01/05/2024 12:5 0 PM DIETETIC TECHNICIAN REGISTERED 01/06/2024 7:16 AM DIETETIC TECHNICIAN REGISTERED us Fidencio Oliva M.D. LAB SURG PATH ORDERABLES Sury l Result [facility] [address] [place] [address], [facility]CY [address] [address] * Protein, Total, Body Fluid (01/05/2024 12:50 PM DIETETIC TECHNICIAN REGISTERED) Only the most recent of2 resultswithin the time period is included. Pathologist [facility] Protein, Total, BF 2.6 See Comment g/dL 01/06/2024 11:13 AM DIETETIC TECHNICIAN REGISTERED DTL Comment: ----ADDITIONAL INFORMATION---- A pleural fluid [...] clinical findings. All other fluids refer to www.[email or web address] for further interpretive information. This test has been modified from the elementary school science teacher's instructions. Its performance characteristics were determined by [facility] in a manner consistent with CLIA requirements. This test has not been cleared or approved by the U.S. Food and Drug Administration. Fluid Type, Protein, Total PLEURAL 01/06/2024 10:14 AM DIETETIC TECHNICIAN REGISTERED DTL Fluid (Pleural Fluid) 01/05/2024 12:50 PM DIETETIC TECHNICIAN REGISTERED 01/06/2024 10:01 AM DIETETIC TECHNICIAN REGISTERED Fidencio Oliva M.D. LAB BODY FLUIDS AND STOOLS OR DERABLES Final Result [place] [address] [facility] [address] [place] [address] * (ABNORMAL) Bacterial Culture, Aerobic + Susceptibility (01/05/2024 12:50 PM DIETETIC TECHNICIAN REGISTERED) Only the most recent of2 resultswithin the time period is included. Bacterial Culture, Aerobic + Susc STREPTOCOCCUS ANGINOSUS GROUP [place] (A) 01/09/2024 7:56 AM DIETETIC TECHNICIAN REGISTERED MKTO Fluid (Pleural Fluid) 01/05/2024 12:50 PM DIETETIC TECHNICIAN REGISTERED 01/05/2024 1:47 PM DIETETIC TECHNICIAN REGISTERED Comment:Specimen Source Site : Fluid Narrative Organism Antibiotic Method Susceptibility Streptococcus anginosus group Penicillin SUSCEPTIBILITY, ROLF (MCG/ML) <=0.06 mcg/mL: Susceptible Streptococcus anginosus group Ampicillin SUSCEPTIBILITY, ROLF (MCG/ML) <=0.25 mcg/mL: Susceptible Streptococcus anginosus group Cefotaxime SUSCEPTIBILITY, ROLF (MCG/ML) <=0.12 mcg/mL: Susceptible Streptococcus anginosus group Ceftriaxone SUSCEPTIBILITY, ROLF (MCG/ML) <=0.12 mcg/mL: Susceptible Streptococcus anginosus group Levofloxacin SUSCEPTIBILITY, ROLF (MCG/ML) 0.5 mcg/mL: Susceptible Streptococcus anginosus group Moxifloxacin SUSCEPTIBILITY, ROLF (MCG/ML) 0.12 mcg/mL: Susceptible Streptococcus anginosus group Erythromycin SUSCEPTIBILITY, ROLF (MCG/ML) <=0.12 mcg/mL: Susceptible Streptococcus anginosus group Clindamycin SUSCEPTIBILITY, ROLF (MCG/ML) <=0.25 mcg/mL: Susceptible Streptococcus anginosus group Vancomycin SUSCEPTIBILITY, ROLF (MCG/ML) 0.5 mcg/mL: Susceptible Streptococcus anginosus group Tigecycline SUSCEPTIBILITY, ROLF (MCG/ML) <=0.06 mcg/mL: Susceptible Fidencio Oliva M.D. LAB MICROBIOLOGY - GENERAL OR DERABLES Final Result [facility] [address] [place] [address], [facility] MKTO [facility] [place] [address] * Cell Count and Differential, Body Fluid (01/05/2024 12:50 PM DIETETIC TECHNICIAN REGISTERED) Only the most recent of2 resultswithin the time period is included. Fluid Type Pleural/Thor acentesis 01/05/2024 2:19 PM DIETETIC TECHNICIAN REGISTERED MKTO Gross Appearance Purulent 01/05/20 24 2:40 PM DIETETIC TECHNICIAN REGISTERED MKTO Total Nucleated Cells [id number] /[id number] 01/05/2024 2:40 PM DIETETIC TECHNICIAN REGISTERED MKTO Comment: ----REFERENCE VALUE---- Synovial: <150 Peritoneal: <500 Pleural: <500 Pericardial: <500 ----ADDITIONAL INFORMATION---- This test has been modified from the elementary school science teacher's instructions. Its performance characteristics were determined by [facility] in a manner consistent with CLIA requirements. This test has not been cleared or approved by the U.S. Food and Drug Administration. Neutrophils 100 % 01/05/2024 3:04 PM DIETETIC TECHNICIAN REGISTERED MKTO Comment: ----REFERENCE VALUE---- Synovial: <25% Peritoneal: <25% Pleural: <25% Pericardial: <25% Reviewed by: Dr. Morton 01/05/2024 3:05 PM DIETETIC TECHNICIAN REGISTERED MK Fluid (Pleural Fluid) 01/05/2024 12:50 PM DIETETIC TECHNICIAN REGISTERED 01/05/2024 1:47 PM DIETETIC TECHNICIAN REGISTERED Fidencio Oliva M.D. LAB BODY FLUIDS AND STOOLS OR DERABLES Final Result Performing Organization Address [facility] Co de Phone Number [facility] [address] [place] [address], [facility] MKTO [facility] [place] [address] [place] [address] * Triglycerides, Body Fluid (01/05/2024 12:50 PM DIETETIC TECHNICIAN REGISTERED) Triglycerides, BF 31 See Comment mg/dL 01/06/2024 11:13 AM DIETETIC TECHNICIAN REGISTERED DTL Comment: ----ADDITIONAL INFORMATION---- Pleural fluid triglyceride concentrations > 110 mg/dL are consistent with chylous effusions. Triglyceride concentrations <50 mg/dL are usually not due to chylous effusions. Peritoneal fluid triglyceride concentrations > 187 mg/dL are most consistent with chylous effusion. All other fluids refer to http://www.mayocliniclabs.com for further interpretive information. This test has been modified from the elementary school science teacher's instructions. Its performance characteristics were determined by [facility] in a manner consistent with CLIA requirements. This test has not been cleared or approved by the U.S. Food and Drug Administration. Fluid Type Pleural 01/06/2024 10:14 AM DIETETIC TECHNICIAN REGISTERED DT Fluid (Pleural Fluid) 01/05/2024 12:50 PM DIETETIC TECHNICIAN REGISTERED 01/06/2024 10:01 AM DIETETIC TECHNICIAN REGISTERED us Fidencio Oliva M.D. LAB BODY FLUIDS AND STOOLS OR DERABLES Final Result Performing Organization Address [facility]/ZIP Co de Phone Number [facility] [address] [place] [address], [place] [facility] [address] [place] [address] * pH, Pleural Fluid (01/05/2024 12:50 PM DIETETIC TECHNICIAN REGISTERED) pH, Pleural Fluid <6.80 Not Applicable pH 01/05/2024 1:59 PM DIETETIC TECHNICIAN REGISTERED MKTO Comment: Clinical guidelines suggest that in parapneumonic pleural effusions, a pH <7.2 indicate the need for tube drainage. Fluid (Pleural Fluid) 01/05/2024 12:50 PM DIETETIC TECHNICIAN REGISTERED 01/05/2024 1:47 PM DIETETIC TECHNICIAN REGISTERED Fidencio Oliva M.D. LAB BODY FLUIDS AND STOOLS OR DERABLES Final Result Performing Organization Address [facility] Co de Phone Number [facility] [address] [place] [address], [address] [address] * (ABNORMAL) Gram Stain (01/05/2024 12:50 PM DIETETIC TECHNICIAN REGISTERED) Only the most recent of3 resultswithin the time period is included. Gram Stain White blood cells, Many.(A) 01/05/2024 2:46 PM DIETETIC TECHNICIAN REGISTERED MKTO Gram Stain GRAM POSITIVE COCCI Many. (A) 01/05/2024 2:46 PM DIETETIC TECHNICIAN REGISTERED MKTO Fluid (Pleural Fluid) 01/05/2024 12:50 PM DIETETIC TECHNICIAN REGISTERED 01/05/2024 1:47 PM DIETETIC TECHNICIAN REGISTERED Comment:Specimen Source Site : Fluid Fidencio Oliva M.D. LAB MICROBIOLOGY - GENERAL OR DERABLES Final Result Performing Organization Address City/[facility]/ZIP Co de Phone Number [facility] [address] [place] [address], [address] [address] * Bacterial Culture, Anaerobic + Susceptibility (01/05/2024 12:50 PM DIETETIC TECHNICIAN REGISTERED) Only the most recent of2 resultswithin the time period is included. Bacterial Culture, Anaerobic No growth after 7 days of incubation. 01/12/2024 7:59 AM DIETETIC TECHNICIAN REGISTERED MKTO Fluid (Pleural Fluid) 01/05/2024 12:50 PM DIETETIC TECHNICIAN REGISTERED 01/05/2024 1:47 PM DIETETIC TECHNICIAN REGISTERED Comment:Specimen Source Site : Fluid Fidencio Oliva M.D. LAB MICROBIOLOGY - GENERAL OR DERABLES Final Result Performing Organization Address City/[facility]/ZIP Co de Phone Number [facility] [address] [place] [address], [facility] MKTO [facility] [place] [address] [place] [address] * Lactate Dehydrogenase (LD), Body Fluid (01/05/2024 12:50 PM DIETETIC TECHNICIAN REGISTERED) Only the most recent of2 resultswithin the time period is included. Lactate Dehydrogenase (LD), BF >9000 See Comment U/L 01/06/2024 12:17 PM DIETETIC TECHNICIAN REGISTERED DTL Comment: ----ADDITIONAL INFORMATION---- Pleural fluid lactate [...] clinical findings. All other fluids refer to www.e-SENSlabs.com for further interpretive information. This test has been modified from the elementary school science teacher's instructions. Its performance characteristics were determined by [facility] in a manner consistent with CLIA requirements. This test has not been cleared or approved by the U.S. Food and Drug Administration. Fluid Type, Lactate Dehydrogenase PLEURAL 01/06/2024 10:14 AM DIETETIC TECHNICIAN REGISTERED DT Fluid (Pleural Fluid) 01/05/2024 12:50 PM DIETETIC TECHNICIAN REGISTERED 01/06/2024 8:29 AM DIETETIC TECHNICIAN REGISTERED Fidencio Oliva M.D. LAB BODY FLUIDS AND STOOLS OR DERABLES Final Result Performing Organization Address City/[facility]/ZIP Co de Phone Number [facility] [address] [place] [address], [place] [facility]3] [address] [place] [address] * Glucose, Body Fluid (01/05/2024 12:50 PM DIETETIC TECHNICIAN REGISTERED) Only the most recent of2 resultswithin the time period is included. Pathologist [facility] Glucose, BF 49 See Comment mg/dL 01/06/2024 11:13 AM DIETETIC TECHNICIAN REGISTERED DTL Comment: ----ADDITIONAL INFORMATION---- Body fluid glucose [...] cystic lesions. All other fluids refer to www.e-SENSlabs.com for further interpretive information. This test has been modified from the elementary school science teacher's instructions. Its performance characteristics were determined by [facility] in a manner consistent with CLIA requirements. This test has not been cleared or approved by the U.S. Food and Drug Administration. Fluid Type, Glucose PLEURAL 01/05 10:14 AM DIETETIC TECHNICIAN REGISTERED DTL Fluid (Pleural Fluid) 01/05/2024 12:50 PM DIETETIC TECHNICIAN REGISTERED 01/06/2024 10:01 AM DIETETIC TECHNICIAN REGISTERED Fidencio Oliva M.D. LAB BODY FLUIDS AND STOOLS OR DERABLES Final Result [facility] [address] [place] [address], [facility] [address] [place] [address] * Pneumonia Panel, PCR (01/04/2024 7:45 PM DIETETIC TECHNICIAN REGISTERED) [facility] Specimen Source SPUTUM 10:43 PM DIETETIC TECHNICIAN REGISTERED MKTO Acinetobacter calcoaceticus-balbir annii complex Undetected Undetected copies/mL 01/04/2024 10:43 PM DIETETIC TECHNICIAN REGISTERED MKTO Enterobacter cloacae complex Undetected Undetected copies/mL 01/04/2024 10:43 PM DIETETIC TECHNICIAN REGISTERED MKTO Escherichia coli Undetected Undetected copies/mL 01/04/2024 10:43 PM DIETETIC TECHNICIAN REGISTERED MKTO Haemophilus influenzae Undetected Undetected copies/mL 01/04/2024 10:43 PM DIETETIC TECHNICIAN REGISTERED MKTO Klebsiella aerogenes Undetected Undetected copies/mL 01/04/2024 10:43 PM DIETETIC TECHNICIAN REGISTERED MKTO Klebsiella oxytoca Undetected Undetected copies/mL 01/04/2024 10:43 PM DIETETIC TECHNICIAN REGISTERED MKTO Klebsiella pneumoniae complex Undetected Undetected copies/mL 01/04/2024 10:43 PM DIETETIC TECHNICIAN REGISTERED MKTO Moraxella catarrhalis Undetected Undetected copies/mL 01/04/2024 10:43 PM DIETETIC TECHNICIAN REGISTERED MKTO Proteus species Undetected Undetected copies/mL 01/04/2024 10:43 PM DIETETIC TECHNICIAN REGISTERED MKTO Pseudomonas aeruginosa Undetected Undetected copies/mL 01/04/2024 10:43 PM DIETETIC TECHNICIAN REGISTERED MKTO Serratia marcescens Undetected Undetected copies/mL 01/04/2024 10:43 PM DIETETIC TECHNICIAN REGISTERED MKTO Staphylococcus aureus complex Undetected Undetected copies/mL 01/04/2024 10:43 PM DIETETIC TECHNICIAN REGISTERED MKTO Streptococcus agalactiae Undetected Undetected copies/mL 01/04/2024 10:43 PM DIETETIC TECHNICIAN REGISTERED MKTO Streptococcus pneumoniae Undetected Undetected copies/mL 01/04/2024 10:43 PM DIETETIC TECHNICIAN REGISTERED MKTO Streptococcus pyogenes Undetected Undetected copies/mL 01/04/2024 10:43 PM DIETETIC TECHNICIAN REGISTERED MKTO Chlamydia pneumoniae Undetected Undetected 01/04/2024 10:43 PM DIETETIC TECHNICIAN REGISTERED MKTO Legionella pneumophila Undetected Undetected 01/04/2024 10:43 PM DIETETIC TECHNICIAN REGISTERED MKTO Mycoplasma pneumoniae Undetected Undetected 01/04/2024 10:43 PM DIETETIC TECHNICIAN REGISTERED MKTO Adenovirus Undetected Undetected 01/04/2024 10:43 PM DIETETIC TECHNICIAN REGISTERED MKTO Coronavirus Undetected Undetected 01/04/2024 10:43 PM DIETETIC TECHNICIAN REGISTERED MKTO Human Metapneumovirus Undetected Undetected 01/04/2024 10:43 PM DIETETIC TECHNICIAN REGISTERED MKTO Human Rhinovirus/Enterov irus Undetected Undetected 01/04/2024 10:43 PM DIETETIC TECHNICIAN REGISTERED MKTO Influenza A Undetected Undetected 01/04/2024 10:43 PM DIETETIC TECHNICIAN REGISTERED MKTO Influenza B Undetected Undetected 01/04/2024 10:43 PM DIETETIC TECHNICIAN REGISTERED MKTO Parainfluenza Undetected Undetected 01/04/2024 10:43 PM DIETETIC TECHNICIAN REGISTERED MKTO Respiratory Syncytial Virus Undetected Undetected 01/04/2024 10:43 PM DIETETIC TECHNICIAN REGISTERED MKTO Comment: ----ADDITIONAL INFORMATION---- This assay is performed using the FDA-cleared FilmArray Pneumonia Panel (PN) ([employer] Any initial empiric treatment guidance provided in [...] SARS-CoV-2. Sputum (Sputum) 01/04/2024 7 :45 PM DIETETIC TECHNICIAN REGISTERED 01/04/2024 7:55 PM DIETETIC TECHNICIAN REGISTERED Octavio Cavazos, Ch.B. LAB MICROBIOLOGY - GENERAL ORDERABLES Final Result Performing Organization Address [facility] Co de Phone Number [facility] [address] [place] [address], [place] [address] * Bacterial Culture, Aerobic + Susceptibility, Respiratory (01/04/2024 7:45 PM DIETETIC TECHNICIAN REGISTERED) Pathologist [facility] Bacterial Culture, Aerobic, Resp No growth after 2 days of incubation. 01/06/2024 8:19 AM DIETETIC TECHNICIAN REG[address] [facility] Sputum (Sputum) 01/04/2024 7 :45 PM DIETETIC TECHNICIAN REGISTERED 01/04/2024 7:55 PM DIETETIC TECHNICIAN REGISTERED Comment:Specimen Source Site : Sputum Octavio Cavazos, Ch.B. LAB MICROBIOLOGY - GENERAL ORDERABLES Final Result Performing Organization Address City/[facility] Co de Phone Number [facility] [address] [place] [address], [place] [address] * MRSA PCR, Nasal (01/04/2024 7:45 PM DIETETIC TECHNICIAN REGISTERED) Pathologist [facility] MRSA Screen, Nasal by PCR Negative Negative 01/04/2024 9:24 PM DIETETIC TECHNICIAN REGISTERED MKTO Swab (Nares) 01/04/2024 7:45 PM DIETETIC TECHNICIAN REGISTERED 01/04/2024 7:53 PM DIETETIC TECHNICIAN REGISTERED us Frank Mccall M.D. LAB MICROBIOLOGY - GENERAL ORDERABLES Final Result [facility] [address] [place] [address], [facility] MKTO [facility] [place] [address] [place] [address] * Ankle, Right-Nursing Image Exam (01/04/2024 7:40 PM DIETETIC TECHNICIAN REGISTERED) 01/04/2024 7:39 PM DIETETIC TECHNICIAN REGISTERED Narrative IIMS - 01/04/2024 7:42 PM DIETETIC TECHNICIAN REGISTERED This order has been created and auto-finalized to support the import of images acquired without order. The clinical documentation to support these images can be found on the encounter that produced images. us Provider Not In System IMG NON RAD IMAGING PROCE DURES Final Result Performing Organization Address [facility] Co de Phone Number IIMS NA * (TTE) 2D ECHO DOPPLER COLOR AND CONTRAST (01/04/2024 10:38 AM DIETETIC TECHNICIAN REGISTERED) Ejection Fraction 59 MC CV EIMS Sinus [...] Region Laterality Modality Echocardiography 01/04/2024 9:49 AM DIETETIC TECHNICIAN REGISTERED Impressions 01/04/2024 11:49 AM DIETETIC TECHNICIAN REGISTERED Echo performed at the patient's bedside. LEFT [...] per Echocardiography Contrast Administration Protocol Reference Document [id number] Rev 05/30/2021. Patient met an inclusion criterion and did not have contraindications in screening sections. For the complete report, see the Order-Level Documents. Narrative 01/04/2024 11:49 AM DIETETIC TECHNICIAN REGISTERED For the complete report, see the Order-Level [...] administered per EchocardiographyContrast Administration Protocol Reference Document [id number] Rev05/30/2021. Patient met an inclusion criterion and did not havecontraindications in screening sections. For the complete report, see the Order-Level Documents. us Jet Palomares M.D. CV ECHO PROCEDURES Sury l Result * (ABNORMAL) Urinalysis with Microscopic if Indicated (01/04/2024 5:56 AM DIETETIC TECHNICIAN REGISTERED) Source Urine, Urine, Midstream 01/04/2024 6:03 AM DIETETIC TECHNICIAN REGISTERED MKTO Clarity Cloudy(A) Clear 01/04/2024 6:37 AM DIETETIC TECHNICIAN REGISTERED MKTO Color Yellow 01/04/2024 6:37 AM DIETETIC TECHNICIAN REGISTERED MKTO Comment: ----REFERENCE VALUE---- Colorless Yellow Veronica Blood Negative Negative 01/04/2024 6:37 AM DIETETIC TECHNICIAN REGISTERED MKTO Nitrite Negative Negative 01/04/2024 6:37 AM DIETETIC TECHNICIAN REGISTERED MKTO Leukocyte Esterase Negative Negative 01/04/2024 6:37 AM DIETETIC TECHNICIAN REGISTERED MKTO Protein 30(A) mg/dL 01/04/2024 6:37 AM DIETETIC TECHNICIAN REGISTERED MKTO Comment: ----REFERENCE VALUE---- Negative Trace Glucose Negative Negative mg/dL 01/04/2024 6:37 AM DIETETIC TECHNICIAN REGISTERED MKTO Ketone Trace(A) Negative mg/dL 01/04/2024 6:37 AM DIETETIC TECHNICIAN REGISTERED MKTO Bilirubin Negative Negative 01/04/2024 6:37 AM DIETETIC TECHNICIAN REGISTERED MKTO pH 5.0 5.0 - 8.0 01/04/2024 6:37 AM DIETETIC TECHNICIAN REGISTERED MKTO Specific [place] 1.014 1.001 - 1.035 01/04/2024 6:37 AM DIETETIC TECHNICIAN REGISTERED MKTO Urobilinogen 0.2 0.2 - 1.0 mg/dL 01/04/2024 6:37 AM DIETETIC TECHNICIAN REGISTERED MKTO Urine (Urine, Midstream) 01/04/2024 5:56 AM DIETETIC TECHNICIAN REGISTERED 01/04/2024 6:02 AM DIETETIC TECHNICIAN REGISTERED us Jet Palomares M.D. LAB URINE ORDERABLES Fi nal Result Performing Organization Address [facility] Co de Phone Number [facility] [address] [place] [address], [place] [address] * Sodium, Random, Urine (01/04/2024 5:56 AM DIETETIC TECHNICIAN REGISTERED) Sodium, Random, U 28 mmol/L 01/04/2024 6:54 AM DIETETIC TECHNICIAN REGISTERED MKTO Comment: ----REFERENCE VALUE---- Random urine sodium may be interpreted in conjunction with serum sodium, using both values to calculate fractional excretion of sodium. Urine (Urine, Midstream) 01/04/2024 5:56 AM DIETETIC TECHNICIAN REGISTERED 01/04/2024 6:01 AM DIETETIC TECHNICIAN REGISTERED us Fausto Bey M.D. LAB URINE ORDERABLES Final Resu lt Performing Organization Address [facility] Co de Phone Number [facility] [address] [place] [address], [place] [address] * (ABNORMAL) Microscopic Automated (01/04/2024 5:56 AM DIETETIC TECHNICIAN REGISTERED) White Blood Cells 4-10(A) /hpf 01/04/2024 6:58 AM DIETETIC TECHNICIAN REGISTERED MKTO Comment: ----REFERENCE VALUE---- Males: 0-3 Females: 0-10 Unknown: 0-10 Red Blood Cells None Seen 0 - 2 /hpf 01/04/2024 6:58 AM DIETETIC TECHNICIAN REGISTERED MKTO Hyaline Casts 4-10 /lpf 01/04/2024 6:58 AM DIETETIC TECHNICIAN REGISTERED MKTO Squamous Cells Occ-3 /hpf 01/04/2024 6:58 AM DIETETIC TECHNICIAN REGISTERED MKTO Urine 01/04/2024 5:56 AM DIETETIC TECHNICIAN REGISTERED 01/04/2024 6:02 AM DIETETIC TECHNICIAN REGISTERED us Jet Palomares M.D. LAB URINE ORDERABLES Fi nal Result Performing Organization Address [facility] Co de Phone Number [facility] [address] [place] [address], [facility] MKTO [address] [address] * (ABNORMAL) Protein/Creatinine Ratio, Random, Urine (01/04/2024 5:56 AM DIETETIC TECHNICIAN REGISTERED) Protein, Total, Random, U 33 mg/dL 01/04/2024 6:54 AM DIETETIC TECHNICIAN REGISTERED MKTO Creatinine, Random, U 94 16 - 326 mg/dL 01/04/2024 6:54 AM DIETETIC TECHNICIAN REGISTERED MKTO Protein/Creati nine Ratio 0.35(H) <0.18 mg/mg 01/04/2024 6:54 AM DIETETIC TECHNICIAN REGISTERED MKTO Urine (Urine, Midstream) 01/04/2024 5:56 AM DIETETIC TECHNICIAN REGISTERED 01/04/2024 6:02 AM DIETETIC TECHNICIAN REGISTERED us Jet Palomares M.D. LAB URINE ORDERABLES Fi nal Result Performing Organization Address [facility] Co de Phone Number [facility] [address] [place] [address], [facility] MKTO [facility] [address] [place] [address] * (ABNORMAL) NT-Pro B-Type Natriuretic Peptide (BNP) (01/04/2024 4:56 AM DIETETIC TECHNICIAN REGISTERED) Only the most recent of3 resultswithin the time period is included. NT-Pro BNP 5163(H) <=540 pg/mL 01/04/2024 8:20 AM DIETETIC TECHNICIAN REGISTERED MKTO Comment: NT-proBNP values less than 300 [...] failure. Blood (Blood, Venous) 01/04/2024 4:56 AM DIETETIC TECHNICIAN REGISTERED 01/04/2024 8:01 AM DIETETIC TECHNICIAN REGISTERED us Portia Ramos M.D., Ph.D. LAB BLOOD ADD-ON Final Res ult Performing Organization Address [facility] Co de Phone Number [facility] [address] [place] [address], [place] [address] * (ABNORMAL) Iron and Total Iron-Binding Capacity (01/04/2024 4:56 AM DIETETIC TECHNICIAN REGISTERED) Iron 38(L) 50 - 150 mcg/dL 01/04/2024 8:32 AM DIETETIC TECHNICIAN REGISTERED MKTO Total Iron Binding Capacity 79(L) 250 - 400 mcg/dL 01/04/2024 8:32 AM DIETETIC TECHNICIAN REGISTERED MKTO Percent Saturation 48 14 - 50 % 01/04/2024 8:32 AM DIETETIC TECHNICIAN REGISTERED MKTO Blood (Blood, Venous) 01/04/2024 4:56 AM DIETETIC TECHNICIAN REGISTERED 01/04/2024 8:02 AM DIETETIC TECHNICIAN REGISTERED us Portia Ramos M.D., Ph.D. LAB BLOOD ADD-ON Final Res ult Performing Organization Address [facility] Hospital/[facility] Co de Phone Number [facility] [address] [place] [address], [place] [address] * Parathyroid Hormone (PTH) (01/04/2024 4:56 AM DIETETIC TECHNICIAN REGISTERED) Parathyroid Hormone (PTH), S 43 15 - 65 pg/mL 01/04/2024 8:32 AM DIETETIC TECHNICIAN REGISTERED [facility] Comment: Biotin has been identified by the elementary school science teacher as a potential interfering substance. Higher concentrations of biotin may be found in multivitamins, hair/nail supplements, and workout supplements. If the result does not match clinical observations, repeat testing after patient refrains from the use of supplements for at least 12 hours. Blood (Blood, Venous) 01/04/2024 4:56 AM DIETETIC TECHNICIAN REGISTERED 01/04/2024 8:02 AM DIETETIC TECHNICIAN REGISTERED us Portia Ramos M.D., Ph.D. LAB BLOOD ADD-ON Final Res ult Performing Organization Address [facility] Co de Phone Number [facility] [address] [place] [address], [facility] [address] [place] [address] * (ABNORMAL) Ferritin (01/04/2024 4:56 AM DIETETIC TECHNICIAN REGISTERED) Ferritin, S 1703(H) 31 - 409 mcg/L 01/04/2024 8:32 AM DIETETIC TECHNICIAN REGISTERED [facility] Comment: Biotin has been identified by the elementary school science teacher as a potential interfering substance. Higher concentrations of biotin may be found in multivitamins, hair/nail supplements, and workout supplements. If the result does not match clinical observations, repeat testing after patient refrains from the use of supplements for at least 12 hours. Blood (Blood, Venous) 01/04/2024 4:56 AM DIETETIC TECHNICIAN REGISTERED 01/04/2024 8:02 AM DIETETIC TECHNICIAN REGISTERED us Portia Ramos M.D., Ph.D. LAB BLOOD ADD-ON Final Res ult Performing Organization Address City/[facility] Co de Phone Number [facility] [address] [place] [address], [facility] [place] [address] [place] [address] * US Thoracentesis Right with Imaging Guidance (01/03/2024 5:04 PM DIETETIC TECHNICIAN REGISTERED) Anatomical Region Laterality Modality Chest, Ultrasound RST LOS, U ltrasound ARZ LOS, Procedure FLA LOS, Abdominal FLA LOS, Procedural, Procedural NWWI LOS Right Ultrasound Impressions 01/04/2024 8:03 AM DIETETIC TECHNICIAN REGISTERED Successful ultrasound guided diagnostic and therapeutic right thoracentesis. Narrative 01/04/2024 8:03 AM DIETETIC TECHNICIAN REGISTERED EXAM: US THORACENTESIS RIGHT WITH IMAGING GUIDANCE [...] Patient education provided by the care steam box hand. Ready to learn, no apparent learning barriers [...] Patient education provided by the care steam box hand. Ready to learn, no apparent learningbarriers were identified. Post-procedure care explained; patient expressedunderstanding of the content. IMPRESSION: Successful ultrasound guided diagnostic and therapeutic rightthoracentesis. Octavio Cavazos, ChElielB. IMG US PROCEDURES Final Result * Bacteria / Alix Culture, Blood #1 (01/03/2024 10:53 AM DIETETIC TECHNICIAN REGISTERED) Only the most recent of2 resultswithin the time period is included. Pathologist [facility] Bacteria/Nereida da Culture, Blood No growth after 5 day/s of incubation. 01/08/2024 11:05 AM DIETETIC TECHNICIAN REGISTERED [facility] Blood (Blood, Peripheral Draw) 01/03/2024 10:53 AM DIETETIC TECHNICIAN REGISTERED 01/03/2024 10:58 AM DIETETIC TECHNICIAN REGISTERED Comment:Specimen Source Site : Blood Octavio Cavazos, Ch.B. LAB MICROBIOLOGY - GENERAL ORDERABLES Final Result Performing Organization Address City/[facility]/ZIP Co de Phone Number [facility] [address] [place] [address] * Lactate for Sepsis with Reflex (01/03/2024 10:52 AM DIETETIC TECHNICIAN REGISTERED) [facility] Lactate, B 1.1 0.5 - 2.2 mmol/L 01/03/2024 11:01 AM DIETETIC TECHNICIAN REGISTERED [facility] Blood (Blood, Venous) 01/03/2024 10:52 AM DIETETIC TECHNICIAN REGISTERED 01/03/2024 10:58 AM DIETETIC TECHNICIAN REGISTERED Octavio Cavazos, Ch.B. LAB BLOOD NON ADD- ON Final Result [facility] [address] [place] [address] * (ABNORMAL) Albumin (01/03/2024 10:51 AM DIETETIC TECHNICIAN REGISTERED) Only the most recent of2 resultswithin the time period is included. [facility] Albumin, P 3.0(L) 3.5 - 5.0 g/dL 01/03/2024 1:15 PM DIETETIC TECHNICIAN REGISTERED [facility] Blood (Blood, Venous) 01/03/2024 10:51 AM DIETETIC TECHNICIAN REGISTERED 01/03/2024 1:02 PM DIETETIC TECHNICIAN REGISTERED Jet Palomares M.D. LAB BLOOD ADD-ON Final Result Performing Organization Address City/[facility]/ZIP Co de Phone Number [facility] [address] [place] [address], [place] [address] * pH (01/03/2024 6:42 AM DIETETIC TECHNICIAN REGISTERED) Only the most recent of2 resultswithin the time period is included. [facility] pH 7.43 7.35 - 7.45 pH 01/03/2024 7:00 AM DIETETIC TECHNICIAN REGISTERED [facility] Blood 01/03/2024 6:42 AM DIETETIC TECHNICIAN REGISTERED 01/03/2024 6:55 AM DIETETIC TECHNICIAN REGISTERED us Deanna Lewis APRN, C.N.P., D.N.P., M.S.N. LAB H ISTORICAL ORDERS Final Result Performing Organization Address [facility] Co de Phone Number [facility] [address] [place] [address] * (ABNORMAL) QuantiFERON-Tb Gold Plus, Blood (01/03/2024 6:42 AM DIETETIC TECHNICIAN REGISTERED) [facility] QuantiFERON-TB Gold Plus Result Indetermi parviz(A) Negative 01/07/2024 2:48 PM DIETETIC TECHNICIAN REGISTERED [facility] Comment: Indeterminate due to a low interferon-gamma level in the mitogen (positive control) tube. This may occur due to a low lymphocyte count, reduced lymphocyte activity or inability of the patient's lymphocytes to generate interferon-gamma. The reference range for the 'Mitogen minus Nil Result' is >=0.5 IU/mL. TB1 Ag minus Nil Result 0.00 IU/mL 01/07/2024 2:48 PM DIETETIC TECHNICIAN REGISTERED [facility] TB2 Ag minus Nil Result 0.00 IU/mL 01/07/2024 2:48 PM DIETETIC TECHNICIAN REGISTERED [facility] Mitogen minus Nil Result 0.01 IU/mL 01/07/2024 2:48 PM DIETETIC TECHNICIAN REGISTERED [facility] Nil Result 0.04 IU/mL 01/07/2024 2:48 PM DIETETIC TECHNICIAN REGISTERED [facility] Blood (Blood, Venous) 01/03/2024 6:42 AM DIETETIC TECHNICIAN REGISTERED 01/04/2024 10:57 AM DIETETIC TECHNICIAN REGISTERED Narrative [facility] - 01/07/2024 2:48 PM DIETETIC TECHNICIAN REGISTERED Specimen Information: Specimen ID: [id number] Specimen Type: Blood Specimen Collection Start Date: 01/03/2024 6:42 AM Specimen Received Date: 01/04/2024 10:57 AM Specimen ID: [id number] Specimen Type: Blood Specimen Collection Start Date: 01/03/2024 6:42 AM Specimen Received Date: 01/04/2024 10:57 AM Specimen ID: [id number] Specimen Type: Blood Specimen Collection Start Date: 01/03/2024 6:42 AM Specimen Received Date: 01/04/2024 10:57 AM Specimen ID: [id number] Specimen Type: Blood Specimen Collection Start Date: 01/03/2024 6:42 AM Specimen Received Date: 01/04/2024 10:57 AM Jet Palomares M.D. LAB MICROBIOLOGY - BLOO D ORDERABLES Final Result [facility] [address] [place] [address], [facility] in [address] [address] * Vitamin D, Immunoassay, Total, Serum (01/03/2024 6:42 AM DIETETIC TECHNICIAN REGISTERED) Pathologist [facility] Vitamin D, Immunoassay, Total, S 23 20 - 80 ng/mL 01/04/2024 8:37 AM DIETETIC TECHNICIAN REGISTERED [facility] Comment: Optimum levels within the healthy population are 20-50, patients with bone disease may benefit from high levels within this range Blood (Blood, Venous) 01/03/2024 6:42 AM DIETETIC TECHNICIAN REGISTERED 01/04/2024 8:02 AM DIETETIC TECHNICIAN REGISTERED us Portia Ramos M.D., Ph.D. LAB BLOOD ADD-ON Final Res ult [facility] [address] [place] [address], [facility] [address] [place] [address] * HBc Total Ab, Serum (01/03/2024 6:42 AM DIETETIC TECHNICIAN REGISTERED) HBc Total Ab, S Negative Negative 01/04/2024 11:52 AM DIETETIC TECHNICIAN REGISTERED [facility] Blood (Blood, Peripheral Draw) 01/03/2024 6:42 AM DIETETIC TECHNICIAN REGISTERED 01/04/2024 7:28 AM DIETETIC TECHNICIAN REGISTERED us Jet Palomares M.D. LAB MICROBIOLOGY - BLOO D ORDERABLES Final Result Performing Organization Address [facility] Co de Phone Number [facility] [address] [place], [place] [address] [place] [address] [place] [address] * HBs Antibody, Serum (01/03/2024 6:42 AM DIETETIC TECHNICIAN REGISTERED) HBs Antibody, S Negative 7:57 AM DIETETIC TECHNICIAN REGISTERED [facility] Comment: Patient is presumed NOT to be immune to infection with HBV. Consumption of high-dose biotin supplement within 12 hours of blood collection for this test can cause false-negative results. ----REFERENCE VALUE---- Unvaccinated: Negative Vaccinated: Positive HBs Antibody, Quantitative, S <3.50 mIU/mL 01/03/2024 7:57 AM DIETETIC TECHNICIAN REGISTERED [facility] Comment: ----REFERENCE VALUE---- <8.50: Negative 8.50-11.49: Indeterminate >=11.50: Positive Blood (Blood, Peripheral Draw) 01/03/2024 6:42 AM DIETETIC TECHNICIAN REGISTERED 01/03/2024 6:55 AM DIETETIC TECHNICIAN REGISTERED us Jet Palomares M.D. LAB MICROBIOLOGY - BLOO D ORDERABLES Final Result [facility] [address] [place] [address] * Hepatitis B Surface Antigen (01/03/2024 6:42 AM DIETETIC TECHNICIAN REGISTERED) HBs Antigen, S Nonreactive Nonreactive 01/03/2024 8:07 AM DIETETIC TECHNICIAN REGISTERED [facility] Blood (Blood, Peripheral Draw) 01/03/2024 6:42 AM DIETETIC TECHNICIAN REGISTERED 01/03/2024 6:55 AM DIETETIC TECHNICIAN REGISTERED us Jet Palomares M.D. LAB MICROBIOLOGY - BLOO D ORDERABLES Final Result Performing Organization Address City/[facility]/ZIP Co de Phone Number [facility] [address] [place] [address], [address] [address] * (ABNORMAL) Calcium, Ionized (01/03/2024 6:42 AM DIETETIC TECHNICIAN REGISTERED) Only the most recent of2 resultswithin the time period is included. Calcium, Ionized, B 4.31(L) 4.65 - 5.30 mg/dL 01/03/2024 7:00 AM DIETETIC TECHNICIAN REGISTERED [facility] Blood 01/03/2024 6:42 AM DIETETIC TECHNICIAN REGISTERED 01/03/2024 6:55 AM DIETETIC TECHNICIAN REGISTERED us Deanna Lewis APRN, C.N.P., D.N.P., M.S.N. LAB B LOOD NON ADD-ON Final Result [facility] [address] [place] [address], [place] [address] [place] [address] * (ABNORMAL) Broad Range Bacteria PCR + Sequencing (01/03/2024 6:10 AM DIETETIC TECHNICIAN REGISTERED) [facility] Broad Range Bacteria PCR+Sequenci ng This test was developed and its performance characteristics determined by [facility] in a manner consistent with CLIA requirements. This test has not been cleared or approved by the U.S. Food and Drug Administration. (A) 01/12/2024 9:31 AM DIETETIC TECHNICIAN REGISTERED [facility] Broad Range Bacteria PCR+Sequenci ng STREPTOCOCCUS INTERMEDIUS DNA detected (A) 01/12/2024 9:31 AM DIETETIC TECHNICIAN REGISTERED [facility] Comment:Semi-Urgent Result. Semi-Urgent This is a semi-urgent result(AUGUSTE) [facility] Fluid (Pleural Fluid, Right) 01/03/2024 6:10 AM DIETETIC TECHNICIAN REGISTERED 01/04/2024 10:00 AM DIETETIC TECHNICIAN REGISTERED Comment:Specimen Source Site : Fluid us Octavio Cavazos, Ch.B. LAB MICROBIOLOGY - GENERAL ORDERABLES Final Result [facility] [address] [place] [address], [facility] DTL [facility] [address] [place] [address] * Leukemia/Lymphoma Immunophenotyping by Flow Cytometry (01/03/2024 6:10 AM DIETETIC TECHNICIAN REGISTERED) [facility] LCMS Result Performed 01/05/2024 1:37 PM DIETETIC TECHNICIAN REGISTERED DTL Final Diagnosis: Pleural fluid, flow cytometric immunophenotyp ing: No monotypic B-cell population or increase in blasts identified. Reviewed by: Blank Crisostomo M.D. 01/05/2024 1:37 PM DIETETIC TECHNICIAN REGISTERED DTL Special Studies: Results: Blasts: Not increased by CD45/side scatter and CD34. B-cells: Absence of GX20-lpsamwkx B cells. B-cell markers tested: CD19, CD10 and kappa and lambda surface light chains. T-cells/NK-joelle ls: No aberrant phenotype by CD3 and CD16. Quality assessment: Specimen received within validated guidelines. 01/05/2024 1:37 PM DIETETIC TECHNICIAN REGISTERED DTL Microscopic Description A Hu-Giemsa- stained slide prepared from the flow cytometry specimen is examined. Morphology is suboptimal. 01/05/2024 1:37 PM DIETETIC TECHNICIAN REGISTERED DTL Comment: ----ADDITIONAL INFORMATION---- This test was developed using an analyte specific reagent. Its performance characteristics were determined by [facility] in a manner consistent with CLIA requirements. This test has not been cleared or approved by the U.S. Food and Drug Administration. Fluid (Pleural Fluid, Right) 01/03/2024 6:10 AM DIETETIC TECHNICIAN REGISTERED 01/04/2024 8:57 AM DIETETIC TECHNICIAN REGISTERED Octavio Cavazos, ChElielB. LAB GENETIC TESTIN G Final Result [facility] [address] [place] [address], [facility] DTL [address] [place] [address] * M tuberculosis Complex PCR (01/03/2024 6:10 AM DIETETIC TECHNICIAN REGISTERED) [facility] MTB Complex PCR, Specimen Source Fluid, Pleural Fluid, Right 01/06/2024 7:45 PM DIETETIC TECHNICIAN REGISTERED DTL MTB Complex PCR, Result Negative Not Applicable 01/06/2024 7:45 PM DIETETIC TECHNICIAN REGISTERED [facility] Comment: A mycobacterial culture must always [...] developed and its performance characteristics determined by [facility] in a manner consistent with CLIA requirements. This test has not been cleared or approved by the U.S. Food and Drug Administration. Fluid (Pleural Fluid, Right) 01/03/2024 6:10 AM DIETETIC TECHNICIAN REGISTERED 01/04/2024 10:24 AM DIETETIC TECHNICIAN REGISTERED Octavio Cavazos, Ch.B. LAB MICROBIOLOGY - GENERAL ORDERABLES Final Result Performing Organization Address [facility] Co de Phone Number [facility] [address] [place] [address], [address] [address] * Cholesterol, Body Fluid (01/03/2024 6:10 AM DIETETIC TECHNICIAN REGISTERED) Cholesterol, BF 34 See Comment mg/dL 01/05/2024 8:47 AM DIETETIC TECHNICIAN REGISTERED DTL Comment: ----ADDITIONAL INFORMATION---- Pleural fluid cholesterol concentrations > 45 to 65 mg/dL are consistent with exudative effusions. Cholesterol concentrations > 200 mg/dL suggest pseudochylous effusions. Peritoneal fluid cholesterol concentrations > 32 to 70 mg/dL suggest a malignant cause of ascites. All other fluids refer to http://www.Workables.com for further interpretive information. This test has been modified from the elementary school science teacher's instructions. Its performance characteristics were determined by [facility] in a manner consistent with CLIA requirements. This test has not been cleared or approved by the U.S. Food and Drug Administration. Fluid Type Pleural 01/05/2024 8:14 AM DIETETIC TECHNICIAN REGISTERED DTL Fluid (Pleural Fluid, Right) 01/03/2024 6:10 AM DIETETIC TECHNICIAN REGISTERED 01/05/2024 7:49 AM DIETETIC TECHNICIAN REGISTERED us Octavio Cavazos, Ch.B. LAB BODY FLUIDS AN D STOOLS ORDERABLES Final Result Performing Organization Address [facility] Co de Phone Number [facility] [address] [place] [address], [address] [address] * [place] INS NON-BLAINE CVC >5YR, [place] US GUIDE VASC ACCESS, LDA ANE CENTRAL LINE DOUBLE LUMEN ADULT, MC ANE CENTRAL LINE GENERIC PERFORMABLE (01/02/2024 3:47 PM DIETETIC TECHNICIAN REGISTERED) Narrative Nikki Salinas M.D. - 01/02/2024 3:47 PM DIETETIC TECHNICIAN REGISTERED Nikki Salinas M.D. 01/02/2024 3:50 PM Invasive [...] Events: none Patient tolerance of procedure: successful Ploypin Lertjitbanjong M.D. PROCEDURE/MINOR SURG ICAL ORDERABLES Final Result * Non-Radiology Image-General Surgery Image Exam (01/02/2024 3:30 PM DIETETIC TECHNICIAN REGISTERED) Narrative [facility] - 01/06/2024 8:53 PM DIETETIC TECHNICIAN REGISTERED This order has been created and auto-finalized to support the import of images acquired without order. The clinical documentation to support these images can be found on the encounter that produced images. us Provider Not In System IMG NON RAD IMAGING PROCE DURES Final Result [facility] NA * US Kidneys Bilateral with Bladder (01/02/2024 10:15 AM DIETETIC TECHNICIAN REGISTERED) Anatomical Region Laterality Modality Abdomen, Renal, Ultrasound R ST LOS, Ultrasound ARZ LOS, Ultrasound FLA LOS Bilateral Ultrasound Impressions 01/02/2024 10:57 AM DIETETIC TECHNICIAN REGISTERED 1. No hydronephrosis. 2. Bilateral simple appearing renal cysts. Narrative 01/02/2024 10:57 AM DIETETIC TECHNICIAN REGISTERED EXAM: US KIDNEYS BILATERAL WITH BLADDER COMPARISON: [...] hydronephrosis. 2. Bilateral simple appearing renal cysts. Jet Palomares M.D. IMG US PROCEDURES Final Result * CK (Creatine Kinase) (01/02/2024 4:10 AM DIETETIC TECHNICIAN REGISTERED) Creatine Kinase, P 78 39 - 308 U/L 01/02/2024 9:49 AM DIETETIC TECHNICIAN REGISTERED [facility] Blood (Blood, Venous) 01/02/2024 4:10 AM DIETETIC TECHNICIAN REGISTERED 01/02/2024 9:30 AM DIETETIC TECHNICIAN REGISTERED Jet Palomares M.D. LAB BLOOD ADD-ON Final Result Performing Organization Address [facility]/ZIP Co de Phone Number [facility] [address] [place] [address] * Lactate, B (01/02/2024 3:41 AM DIETETIC TECHNICIAN REGISTERED) Lactate, B 0.8 0.5 - 2.2 mmol/L 01/02/2024 4:47 AM DIETETIC TECHNICIAN REGISTERED [facility] Blood (Blood, Venous) 01/02/2024 3:41 AM DIETETIC TECHNICIAN REGISTERED 01/02/2024 4:45 AM DIETETIC TECHNICIAN REGISTERED Deanna Lewis APRN, C.N.P., D.N.P., M.S.N. LAB B LOOD NON ADD-ON Final Result Performing Organization Address [facility]/ZIP Co de Phone Number [facility] [address] [place] [address] * (ABNORMAL) Osmolality (01/02/2024 3:41 AM DIETETIC TECHNICIAN REGISTERED) Osmolality, S 338(H) 276 - 306 mOsm/kg 01/02/2024 5:40 AM DIETETIC TECHNICIAN REGISTERED [facility] Blood (Blood, Venous) 01/02/2024 3:41 AM DIETETIC TECHNICIAN REGISTERED 01/02/2024 4:05 AM DIETETIC TECHNICIAN REGISTERED us Fausto Bey M.D. LAB BLOOD ADD-ON Final Result Performing Organization Address City/[facility]/ZIP Co de Phone Number [facility] [address] [place] [address], [facility] [place] [address] [place] [address] * (ABNORMAL) Blood Gas with Coox, Venous (01/02/2024 3:41 AM DIETETIC TECHNICIAN REGISTERED) pO2, Venous 49 Not applicable mm Hg 01/02/2024 4:14 AM DIETETIC TECHNICIAN REGISTERED [facility] pCO2, Venous 29(L) 41 - 51 mm Hg 4:14 AM DIETETIC TECHNICIAN REGISTERED [facility] pH, Venous 7.29(L) 7.32 - 7.43 pH 01/02/2024 4:14 AM DIETETIC TECHNICIAN REGISTERED [facility] Base Excess, Venous -12 Not applicable mmol/L 01/02/2024 4:14 AM DIETETIC TECHNICIAN REGISTERED [facility] HCO3, Venous 13 Not applicable mmol/L 01/02/2024 4:14 AM DIETETIC TECHNICIAN REGISTERED [facility] Hemoglobin, Venous 9.6(L) 13.2 - 16.6 g/dL 01/02/2024 4:14 AM DIETETIC TECHNICIAN REGISTERED [facility] O2Hb, Venous 79.4 Not applicable % 01/02/2024 4:14 AM DIETETIC TECHNICIAN REGISTERED [facility] COHb, Venous 0.2 <3.0 % 01/02/2024 4:14 AM DIETETIC TECHNICIAN REGISTERED [facility] MetHb, Venous 1.2 <1.5 % 01/02/2024 4:14 AM DIETETIC TECHNICIAN REGISTERED [facility] CtO2, Venous 10.8 Not Applicable vol % 01/02/2024 4:14 AM DIETETIC TECHNICIAN REGISTERED [facility] Blood (Blood, Venous) 01/02/2024 3:41 AM DIETETIC TECHNICIAN REGISTERED 01/02/2024 4:05 AM DIETETIC TECHNICIAN REGISTERED us Fausto Bey M.D. LAB BLOOD NON ADD-ON Final Resu lt [facility] [address] [place] [address], [facility] [place] [address] [place] [address] * CT chest abdomen pelv wo con-Outside CT Body (01/01/2024 2:25 PM DIETETIC TECHNICIAN REGISTERED) 01/01/2024 2:17 PM DIETETIC TECHNICIAN REGISTERED Narrative [facility] - 01/01/2024 3:57 PM DIETETIC TECHNICIAN REGISTERED This order has been created and auto-finalized [...] PROCEDURES Final R esult Performing Organization Address [facility] Co de Phone Number [facility] NA * CT HEAD/BRAIN WO CON-Outside CT Neuro (01/01/2024 2:20 PM DIETETIC TECHNICIAN REGISTERED) 01/01/2024 2:17 PM DIETETIC TECHNICIAN REGISTERED Narrative [facility] - 01/01/2024 3:56 PM DIETETIC TECHNICIAN REGISTERED This order has been created and auto-finalized [...] PROCEDURES Final R esult Performing Organization Address City/[facility] Co de Phone Number [facility] NA from Last 3 Months Insurance [facility] Advance Directives For more information, please contact: [phone] * DNR/DNI (Latest Code Status on File) Date Activated Date Inactivated Comments 01/01/2024 9:20 PM 01/11/2024 6:43 PM Question Answer Comments DNR/DNI (Do Not Resuscitate/Do Not Intubate): Orquidea motta-Patient Care Teams Lapel Padder Relationship Specialty Start Date End Date Elsewhere, Pcp PCP - General Internal Medicine 01/04/24
--- OUTSIDE RECORDS SUMMARY | 2024-01-22 10:50 | XMS_ITS | Referral Summary ---
Author Organization [facility] Address [address] [place] [address] Care Team Providers Care Dumper Name Role Phone Elsewhere, Pcp Primary Care Provider Unavailabl e Source Comments Patient records contain information from all sites at [facility]. For routine questions regarding patient records, call [phone] during business hours, M-F 8:00 AM - 5:00 PM Central Time. Record requests for emergency care only can be directed to [phone] at any time.[facility] Encounters Date Type Department Care Team Description 01/15/2024 Clinical Communication Department of Infectious Diseases in [address] [phone] Ceci Cates R.N. Appointment (Lab visit) 01/13/2024 Clinical Communication Department of Infectious Diseases in [address] [phone] Sarah Perry M.D. 01/01/2024 8:59 PM CRYPTOLOGIC LINGUIST - 01/11/2024 4:43 PM CRYPTOLOGIC LINGUIST Hospital Encounter [facility], Fourth Floor [address] [place] [phone] Frank Mccall M.D. Warsame, Mohamed Y, M.B., Ch.B. Jeremías Fernandez M.D. Velazquez, Chapito S, D.O. Bey, Fausto S, M.D. Empyema Pleural (HCC) (Primary Dx); Failure Renal Acute (Acute Kidney Injury) (HCC); Pneumonia Discharge Disposition: Home or Self Care 01/08/2024 Clinical Communication Department of Infectious Diseases in [address] [phone] Letty Sneed, R.N. 01/08/2024 Orders Only Department of Infectious Diseases in [address] [phone] Letty Sneed, R.N. Pneumonia (Primary Dx) 01/07/2024 Clinical Communication Department of Infectious Diseases in [address] [phone] Stacy Esposito R.N. 01/04/2024 7:40 PM CRYPTOLOGIC LINGUIST Ancillary Procedure Department of Nursing 01/02/2024 3:30 PM CRYPTOLOGIC LINGUIST Ancillary Procedure Department of General Surgery 01/01/2024 Intake [facility] from Last [...] Med Name: Prostate Complete Zinc, Selenium, [place], Lycopene, Turmeric, Resveratrol, Pomegranate Active gabapentin (Neurontin) [...] Smokeless Tobacco: Never Tobacco Cessation:Counseling Given: No [facility] Utilities Answer Date Recorded In the past [...] your living situation today? I have a [facility] place to live 01/10/2024 Sex and Gender Information Value Date Recorded Sex Assigned at Not on file Legal Sex Male 3:31 PM CRYPTOLOGIC LINGUIST Gender Identity Not on file Sexual Orientation Not on file Last Filed Vital Signs Vital Sign Reading Time Taken Comments Blood Pressure 111/62 01/11/2024 2:37 PM CRYPTOLOGIC LINGUIST Pulse 122 01/11/2024 2:37 PM CRYPTOLOGIC LINGUIST Temperature 36.5 C (97.7 F) 01/11/2024 2:37 PM CRYPTOLOGIC LINGUIST Respiratory Rate 26 01/11/2024 2:37 PM CRYPTOLOGIC LINGUIST Oxygen Saturation 97% 01/11/2024 2:37 PM CRYPTOLOGIC LINGUIST Inhaled Oxygen Concentration - - Weight 39.9 kg (87 lb 15.4 oz) 01/11/2024 2:12 A M CRYPTOLOGIC LINGUIST Height 170.2 cm (5' 7) 01/01/2024 9:10 PM CRYPTOLOGIC LINGUIST Body Mass Index 13.78 01/01/2024 9:10 PM CRYPTOLOGIC LINGUIST Plan of Treatment Upcoming Encounters Date Type Department Care Team (Latest Contact Info) Description 01/25/2024 1:30 PM CRYPTOLOGIC LINGUIST Appointment Department of Laboratory Medicine in [address] [phone] Sarah Perry M.D. [address] [place] [phone] 01/25/2024 2:30 PM CRYPTOLOGIC LINGUIST Office Visit Department of Infectious Diseases in [address] [phone] Clara Jones P.A.-C. [address] [place] [phone] 01/25/2024 3:00 PM CRYPTOLOGIC LINGUIST Comprehensive Visit Department of Pulmonary Medicine in [address] [phone] Fidencio Oliva M.D. [address] [place] [phone] Discharge Disposition: Home or Self Care Procedures Procedure Name Priority Date/Time Associated Diagnosis Comments FL SWALLOW FUNCTION WITH VIDEO AND SPEECH RAD - Routine (most inpatients and all outpatients) 01/11/2024 1:48 PM CRYPTOLOGIC LINGUIST TESTING LOCATION Timed 01/11/2024 11:5 1 AM CRYPTOLOGIC LINGUIST TYPE AND SCREEN Timed 01/11/2024 11:51 AM CRYPTOLOGIC LINGUIST HEMOGLOBIN, B Timed 01/11/2024 11:51 AM CRYPTOLOGIC LINGUIST DX CHEST PORTABLE 1 VIEW RAD - Routine (most inpatients and all outpatients) 01/11/2024 6:54 AM CRYPTOLOGIC LINGUIST PHOSPHORUS (INORGANIC), S Routine 01/11/2024 4:48 AM CRYPTOLOGIC LINGUIST MAGNESIUM, S Routine 01/11/2024 4:48 AM CRYPTOLOGIC LINGUIST BASIC METABOLIC PANEL, S/P Routine 01/11/2024 4:48 AM CRYPTOLOGIC LINGUIST CBC WITH DIFFERENTIAL, B Routine 01/11/2024 4:48 AM CRYPTOLOGIC LINGUIST HEPATIC FUNCTION PANEL, S Routine 01/11/2024 4:48 AM CRYPTOLOGIC LINGUIST DX CHEST PORTABLE 1 VIEW RAD - Routine (most inpatients and all outpatients) 01/10/2024 6:50 AM CRYPTOLOGIC LINGUIST PHOSPHORUS (INORGANIC), S Routine 01/10/2024 6:25 AM CRYPTOLOGIC LINGUIST MAGNESIUM, S Routine 01/10/2024 6:25 AM CRYPTOLOGIC LINGUIST BASIC METABOLIC PANEL, S/P Routine 01/10/2024 6:25 AM CRYPTOLOGIC LINGUIST CBC WITH DIFFERENTIAL, B Routine 01/10/2024 6:25 AM CRYPTOLOGIC LINGUIST HEPATIC FUNCTION PANEL, S Routine 01/10/2024 6:25 AM CRYPTOLOGIC LINGUIST DX CHEST PORTABLE 1 VIEW RAD - Routine (most inpatients and all outpatients) 01/09/2024 6:50 AM CRYPTOLOGIC LINGUIST MORPHOLOGY EVALUATION Routine 01/09/2024 6:42 AM CRYPTOLOGIC LINGUIST MANUAL DIFFERENTIAL, B Routine 01/09/2024 6:42 AM CRYPTOLOGIC LINGUIST PHOSPHORUS (INORGANIC), S Routine 01/09/2024 6:42 AM CRYPTOLOGIC LINGUIST MAGNESIUM, S Routine 01/09/2024 6:42 AM CRYPTOLOGIC LINGUIST BASIC METABOLIC PANEL, S/P Routine 01/09/2024 6:42 AM CRYPTOLOGIC LINGUIST CBC WITH DIFFERENTIAL, B Routine 01/09/2024 6:42 AM CRYPTOLOGIC LINGUIST HEPATIC FUNCTION PANEL, S Routine 01/09/2024 6:[address] CHEST WITHOUT IV CONTRAST RAD - Routine (most inpatients and all outpatients) 01/08/2024 1:11 PM CRYPTOLOGIC LINGUIST DX CHEST 1 VIEW RAD - Routine (most inpatients and all outpatients) 01/08/2024 7:16 AM CRYPTOLOGIC LINGUIST MORPHOLOGY EVALUATION Routine 01/08/2024 4:47 AM CRYPTOLOGIC LINGUIST MANUAL DIFFERENTIAL, B Routine 01/08/2024 4:47 AM CRYPTOLOGIC LINGUIST PHOSPHORUS (INORGANIC), S Routine 01/08/2024 4:47 AM CRYPTOLOGIC LINGUIST MAGNESIUM, S Routine 01/08/2024 4:47 AM CRYPTOLOGIC LINGUIST BASIC METABOLIC PANEL, S/P Routine 01/08/2024 4:47 AM CRYPTOLOGIC LINGUIST CBC WITH DIFFERENTIAL, B Routine 01/08/2024 4:47 AM CRYPTOLOGIC LINGUIST HEPATIC FUNCTION PANEL, S Routine 01/08/2024 4:47 AM CRYPTOLOGIC LINGUIST HEMOGLOBIN, B Timed 01/07/2024 3:50 PM CRYPTOLOGIC LINGUIST DX CHEST 1 VIEW RAD - Routine (most inpatients and all outpatients) 01/07/2024 7:14 AM CRYPTOLOGIC LINGUIST MORPHOLOGY EVALUATION Routine 01/07/2024 5:29 AM CRYPTOLOGIC LINGUIST PHOSPHORUS (INORGANIC), S Routine 01/07/2024 5:29 AM CRYPTOLOGIC LINGUIST MAGNESIUM, S Routine 01/07/2024 5:29 AM CRYPTOLOGIC LINGUIST BASIC METABOLIC PANEL, S/P Routine 01/07/2024 5:29 AM CRYPTOLOGIC LINGUIST CBC WITH DIFFERENTIAL, B Routine 01/07/2024 5:29 AM CRYPTOLOGIC LINGUIST HEPATIC FUNCTION PANEL, S Routine 01/07/2024 5:29 AM CRYPTOLOGIC LINGUIST MISCELLANEOUS SENT OUT LAB TEST Routine 01/06/2024 11:36 AM CRYPTOLOGIC LINGUIST TROPHERYMA WHIPPLEI PCR, B Routine 01/06/2024 11:36 AM CRYPTOLOGIC LINGUIST HC REF INF DIS DNA/PCR/NGS SEQ Routine 01/06/2024 10:59 AM CRYPTOLOGIC LINGUIST DX CHEST 1 VIEW RAD - Routine (most inpatients and all outpatients) 01/06/2024 7:19 AM CRYPTOLOGIC LINGUIST MORPHOLOGY EVALUATION Timed 01/06/2024 5:37 AM CRYPTOLOGIC LINGUIST MANUAL DIFFERENTIAL, B Timed 01/06/2024 5:37 AM CRYPTOLOGIC LINGUIST MAGNESIUM, S Timed 01/06/2024 5:37 AM CRYPTOLOGIC LINGUIST CBC WITH DIFFERENTIAL, B Timed 01/06/2024 5:37 AM CRYPTOLOGIC LINGUIST RENAL FUNCTION PANEL, S Timed 01/06/2024 5:37 AM CRYPTOLOGIC LINGUIST ECG STAT 01/06/2024 5:32 AM CRYPTOLOGIC LINGUIST IR CHEST TUBE PLACEMENT RAD - Routine (most inpatients and all outpatients) 01/05/2024 1:42 PM CRYPTOLOGIC LINGUIST CYTOLOGY NON-HOSE COUPLING JOINER Routine 01/05/2024 12:5 0 PM CRYPTOLOGIC LINGUIST GLUCOSE, BODY FLUID Timed 01/05/2024 1 2:50 PM CRYPTOLOGIC LINGUIST TRIGLYCERIDES, BF Timed 01/05/2024 12: 50 PM CRYPTOLOGIC LINGUIST PROTEIN, TOTAL, BF Timed 01/05/2024 12 :50 PM CRYPTOLOGIC LINGUIST PH, PLEURAL FLUID Timed 01/05/2024 12: 50 PM CRYPTOLOGIC LINGUIST LACTATE DEHYDROGENASE (LD), BF Timed 01/05/2024 12:50 PM CRYPTOLOGIC LINGUIST CELL COUNT AND DIFFERENTIAL, BF Timed 01/05/2024 12:50 PM CRYPTOLOGIC LINGUIST BACTERIAL CULTURE, ANAEROBIC + SUSC Timed 01/05/2024 12:50 PM CRYPTOLOGIC LINGUIST GRAM STAIN Timed 01/05/2024 12:50 PM CRYPTOLOGIC LINGUIST BACTERIAL CULTURE, AEROBIC + SUSC Timed 01/05/2024 12:50 PM CRYPTOLOGIC LINGUIST MORPHOLOGY EVALUATION Routine 01/05/2024 5:52 AM CRYPTOLOGIC LINGUIST MANUAL DIFFERENTIAL, B Routine 01/05/2024 5:52 AM CRYPTOLOGIC LINGUIST BASIC METABOLIC PANEL, S/P Routine 01/05/2024 5:52 AM CRYPTOLOGIC LINGUIST CBC WITH DIFFERENTIAL, B Routine 01/05/2024 5:52 AM CRYPTOLOGIC LINGUIST PNEUMONIA PANEL, PCR Routine 01/04/2024 7:45 PM CRYPTOLOGIC LINGUIST GRAM STAIN Routine 01/04/2024 7:45 PM CRYPTOLOGIC LINGUIST BACTERIAL CULTURE, AEROBIC + SUSC, RESP Routine 01/04/2024 7:45 PM CRYPTOLOGIC LINGUIST NASAL SCREEN FOR MRSA BY RAPID PCR Routine 01/04/2024 7:45 PM CRYPTOLOGIC LINGUIST NURSING IMAGE EXAM Routine 01/04/2024 7: 40 PM CRYPTOLOGIC LINGUIST (TTE) 2D ECHO DOPPLER COLOR AND CONTRAST Routine 01/04/2024 10:38 AM CRYPTOLOGIC LINGUIST HC URINALYSIS AUTO WO MICRO Routine 01/04/2024 5:56 AM CRYPTOLOGIC LINGUIST PROTEIN/CREATININE RATIO, RANDOM, URINE Routine 01/04/2024 5:56 AM CRYPTOLOGIC LINGUIST URINALYSIS WITH MICROSCOPIC IF INDICATED, U Routine 01/04/2024 5:56 AM CRYPTOLOGIC LINGUIST SODIUM, RANDOM, U Routine 01/04/2024 5:5 6 AM CRYPTOLOGIC LINGUIST NT-PRO B-TYPE NATRIURETIC PEPTIDE (BNP), S Routine 01/04/2024 4:56 AM CRYPTOLOGIC LINGUIST PARATHYROID HORMONE (PTH), S Routine 01/04/2024 4:56 AM CRYPTOLOGIC LINGUIST IRON AND TOT IRON-BINDING CAPACITY, S/P Routine 01/04/2024 4:56 AM CRYPTOLOGIC LINGUIST FERRITIN, S Routine 01/04/2024 4:56 AM CRYPTOLOGIC LINGUIST BASIC METABOLIC PANEL, S/P Routine 01/04/2024 4:56 AM CRYPTOLOGIC LINGUIST CBC WITH DIFFERENTIAL, B Routine 01/04/2024 4:56 AM CRYPTOLOGIC LINGUIST CYTOLOGY NON-HOSE COUPLING JOINER Timed 01/03/2024 5:09 PM CRYPTOLOGIC LINGUIST US THORACENTESIS RIGHT WITH IMAGING GUIDANCE RAD - Routine (most inpatients and all outpatients) 01/03/2024 5:04 PM CRYPTOLOGIC LINGUIST BASIC METABOLIC PANEL, S/P Timed 01/03/2024 1:56 PM CRYPTOLOGIC LINGUIST HEMODIALYSIS Routine 01/03/2024 11:28 AM CRYPTOLOGIC LINGUIST BACTERIA / ALIX CULTURE, BLOOD Routine 01/03/2024 10:53 AM CRYPTOLOGIC LINGUIST LACTATE FOR SEPSIS WITH REFLEX Routine 01/03/2024 10:52 AM CRYPTOLOGIC LINGUIST BACTERIA / ALIX CULTURE, BLOOD Routine 01/03/2024 10:52 AM CRYPTOLOGIC LINGUIST ALBUMIN, S/P Routine 01/03/2024 10:51 AM CRYPTOLOGIC LINGUIST HEMODIALYSIS Routine 01/03/2024 8:16 AM CRYPTOLOGIC LINGUIST VITAMIN D, IMMUNOASSAY, TOTAL, S Routine 01/03/2024 6:42 AM CRYPTOLOGIC LINGUIST NT-PRO B-TYPE NATRIURETIC PEPTIDE (BNP), S Routine 01/03/2024 6:42 AM CRYPTOLOGIC LINGUIST CALCIUM, IONIZED, S/B Routine 01/03/2024 6:42 AM CRYPTOLOGIC LINGUIST PH BLOOD GAS Routine 01/03/2024 6:42 AM CRYPTOLOGIC LINGUIST CBC WITH DIFFERENTIAL, B Routine 01/03/2024 6:42 AM CRYPTOLOGIC LINGUIST BASIC METABOLIC PANEL, S/P Routine 01/03/2024 6:42 AM CRYPTOLOGIC LINGUIST QUANTIFERON-TB GOLD PLUS, B Routine 01/03/2024 6:42 AM CRYPTOLOGIC LINGUIST HBC TOTAL AB, SERUM Routine 01/03/2024 6 :42 AM CRYPTOLOGIC LINGUIST HBS ANTIBODY, SERUM Routine 01/03/2024 6 :42 AM CRYPTOLOGIC LINGUIST HEPATITIS B SURFACE ANTIGEN Routine 01/03/2024 6:42 AM CRYPTOLOGIC LINGUIST LEUKEMIA/LYMPHOMA, PHENOTYPE, V Timed 01/03/2024 6:10 AM CRYPTOLOGIC LINGUIST CHOLESTEROL, BF Timed 01/03/2024 6:10 AM CRYPTOLOGIC LINGUIST GLUCOSE, BODY FLUID Timed 01/03/2024 6 :10 AM CRYPTOLOGIC LINGUIST CELL COUNT AND DIFFERENTIAL, BF Timed 01/03/2024 6:10 AM CRYPTOLOGIC LINGUIST PROTEIN, TOTAL, BF Timed 01/03/2024 6: 10 AM CRYPTOLOGIC LINGUIST LACTATE DEHYDROGENASE (LD), BF Timed 01/03/2024 6:10 AM CRYPTOLOGIC LINGUIST M TUBERCULOSIS COMPLEX PCR, V Timed 01/03/2024 6:10 AM CRYPTOLOGIC LINGUIST BROAD RANGE BACTERIA PCR AND SEQUENCING Timed 01/03/2024 6:10 AM CRYPTOLOGIC LINGUIST BACTERIAL CULTURE, ANAEROBIC + SUSC Timed 01/03/2024 6:10 AM CRYPTOLOGIC LINGUIST BACTERIAL CULTURE, AEROBIC + SUSC Timed 01/03/2024 6:10 AM CRYPTOLOGIC LINGUIST GRAM STAIN Timed 01/03/2024 6:10 AM CRYPTOLOGIC LINGUIST DX CHEST PORTABLE 1 VIEW RAD - Semiurgent (Fast; most ED patients; some inpatients) 01/02/2024 3:59 PM CRYPTOLOGIC LINGUIST MC ANE CENTRAL LINE GENERIC PERFORMABLE Routine 01/02/2024 3:47 PM CRYPTOLOGIC LINGUIST Failure Renal Acute (Acute Kidney Injury) (HCC) LDA ANE CENTRAL LINE DOUBLE LUMEN ADULT Routine 01/02/2024 3:47 PM CRYPTOLOGIC LINGUIST Failure Renal Acute (Acute Kidney Injury) (HCC) [place] US GUIDE VASC ACCESS Routine 01/02/2024 3:47 PM CRYPTOLOGIC LINGUIST Failure Renal Acute (Acute Kidney Injury) (HCC) [place] INS NON-BLAINE CVC >5YR Routine 01/02/2024 3:47 PM CRYPTOLOGIC LINGUIST Failure Renal Acute (Acute Kidney Injury) (HCC) GENERAL SURGERY IMAGE EXAM Routine 01/02/2024 3:30 PM CRYPTOLOGIC LINGUIST HEMODIALYSIS Routine 01/02/2024 2:44 PM CRYPTOLOGIC LINGUIST MAGNESIUM, S Routine 01/02/2024 11:32 AM CRYPTOLOGIC LINGUIST BASIC METABOLIC PANEL, S/P Routine 01/02/2024 11:32 AM CRYPTOLOGIC LINGUIST US KIDNEYS BILATERAL WITH BLADDER RAD - Routine (most inpatients and all outpatients) 01/02/2024 10:15 AM CRYPTOLOGIC LINGUIST DX CHEST PORTABLE 1 VIEW RAD - Semiurgent (Fast; most ED patients; some inpatients) 01/02/2024 4:24 AM CRYPTOLOGIC LINGUIST CREATINE KINASE (CK), S Routine 01/02/2024 4:10 AM CRYPTOLOGIC LINGUIST ALBUMIN, S/P Routine 01/02/2024 4:10 AM CRYPTOLOGIC LINGUIST CALCIUM, IONIZED, S/B Routine 01/02/2024 4:10 AM CRYPTOLOGIC LINGUIST PH BLOOD GAS Routine 01/02/2024 4:10 AM CRYPTOLOGIC LINGUIST PHOSPHORUS (INORGANIC), S Routine 01/02/2024 3:41 AM CRYPTOLOGIC LINGUIST MAGNESIUM, S Routine 01/02/2024 3:41 AM CRYPTOLOGIC LINGUIST LACTATE, B STAT 01/02/2024 3:41 AM CRYPTOLOGIC LINGUIST NT-PRO B-TYPE NATRIURETIC PEPTIDE (BNP), S Routine 01/02/2024 3:41 AM CRYPTOLOGIC LINGUIST VENOUS BLOOD GAS W/COOX, B Routine 01/02/2024 3:41 AM CRYPTOLOGIC LINGUIST OSMOLALITY, S Routine 01/02/2024 3:41 AM CRYPTOLOGIC LINGUIST CBC WITH DIFFERENTIAL, B Routine 01/02/2024 3:41 AM CRYPTOLOGIC LINGUIST BASIC METABOLIC PANEL, S/P Routine 01/02/2024 3:41 AM CRYPTOLOGIC LINGUIST ECG Routine 01/02/2024 12:39 AM CRYPTOLOGIC LINGUIST OUTSIDE CT BODY Routine 01/01/2024 2:25 PM CRYPTOLOGIC LINGUIST OUTSIDE CT NEURO Routine 01/01/2024 2:20 PM CRYPTOLOGIC LINGUIST from Last 3 Months Results * FL Swallow Function with Video and Speech or OT (01/11/2024 1:48 PM CRYPTOLOGIC LINGUIST) Anatomical Region Laterality Modality Gastro Intestinal, Abdominal RST LOS, Abdominal ARZ LOS, Abdominal FLA LOS N/A Digital Radiography Impressions 01/11/2024 4:00 PM CRYPTOLOGIC LINGUIST Normal modified barium swallow study Narrative 01/11/2024 4:00 PM CRYPTOLOGIC LINGUIST EXAM: FL SWALLOW FUNCTION WITH VIDEO AND [...] swallowed. IMPRESSION: Normal modified barium swallow study Jeremías Fernandez M.D. IMSmooth FLUOROSCOPY PROCEDURES F inal Result * Testing Location (01/11/2024 11:51 AM CRYPTOLOGIC LINGUIST) Testing Location [facility] DEFAULT 01/11/2024 11:57 AM CRYPTOLOGIC LINGUIST MKTO Blood 01/11/2024 11:5 1 AM CRYPTOLOGIC LINGUIST 01/11/2024 11:57 AM CRYPTOLOGIC LINGUIST us Jeremías Fernandez M.D. LAB BLOOD BANK TEST ORDERABL ES Final Result Performing Organization Address City/[facility] Co de Phone Number [facility] [address] [place] [address] * (ABNORMAL) Hemoglobin (01/11/2024 11:51 AM CRYPTOLOGIC LINGUIST) Only the most recent of2 resultswithin the time period is included. Hemoglobin 8.1(L) 13.2 - 16.6 g/dL 01/11/2024 12:00 PM CRYPTOLOGIC LINGUIST MKTO Blood (Blood, Venous) 01/11/2024 11:51 AM CRYPTOLOGIC LINGUIST 01/11/2024 11:57 AM CRYPTOLOGIC LINGUIST us Jeremías Fernandez M.D. LAB BLOOD ADD-ON Final Resul t Performing Organization Address [facility] Co de Phone Number [facility] [address] [place] [address], [place] [address] * Type and Screen (with Reflex Antibody ID) (01/11/2024 11:51 AM CRYPTOLOGIC LINGUIST) ABO Group B 01/11/2024 12:58 PM CRYPTOLOGIC LINGUIST MKTO Rh Type NEG 01/11/2024 12:58 PM CRYPTOLOGIC LINGUIST MKTO Antibody Screen NEG 12:58 PM CRYPTOLOGIC LINGUIST MKTO Type & Screen Expiration 01/14/2024 23:59 01/11/2024 12:58 PM CRYPTOLOGIC LINGUIST MKTO [facility] Eligible Y 01/11/2024 12:58 PM CRYPTOLOGIC LINGUIST MKTO Blood (Blood, Venous) 01/11/2024 11:51 AM CRYPTOLOGIC LINGUIST 01/11/2024 11:57 AM CRYPTOLOGIC LINGUIST us Jeremías Fernandez M.D. LAB BLOOD BANK TEST ORDERABL ES Final Result Performing Organization Address [facility] Co de Phone Number [facility] [address] [place] [address], [facility] MKTO [facility] [place] [address] [place] [address] * DX Chest Portable 1 View (01/11/2024 6:54 AM CRYPTOLOGIC LINGUIST) Only the most recent of5 resultswithin the time period is included. Anatomical Region Laterality Modality Chest, Thoracic RST LOS, Tho racic ARZ LOS, Thoracic FLA LOS N/A Digital Radiography Impressions 01/11/2024 7:51 AM CRYPTOLOGIC LINGUIST No change since 01/10/2024. Small right pleural effusion with associated atelectasis. The left lung remains clear. No pneumothorax. Normal heart size. Aortic calcifications. Narrative 01/11/2024 7:51 AM CRYPTOLOGIC LINGUIST EXAM: DX CHEST PORTABLE 1 VIEW Procedure Note Yovany Shrestha M.D. - 01/11/2024 EXAM: DX CHEST PORTABLE 1 VIEW IMPRESSION: No change since 01/10/2024. Small right pleural effusion with associatedatelectasis. The left lung remains clear. No pneumothorax. Normal heartsize. Aortic calcifications. Fidencio Oliva M.D. IMG DIAGNOSTIC IMAGING PROCED URES Final Result * (ABNORMAL) Hepatic Function Panel (01/11/2024 4:48 AM CRYPTOLOGIC LINGUIST) Only the most recent of5 resultswithin the time period is included. Bilirubin, Total, P 0.2 0.0 - 1.2 mg/dL 01/11/2024 5:37 AM CRYPTOLOGIC LINGUIST MKTO Bilirubin, Direct, P 0.1 0.0 - 0.3 mg/dL 01/11/2024 5:37 AM CRYPTOLOGIC LINGUIST MKTO Aspartate Aminotransferase (AST), P 23 8 - 48 U/L 01/11/2024 5:37 AM CRYPTOLOGIC LINGUIST MKTO Alanine Aminotransferase (ALT), P 11 7 - 55 U/L 01/11/2024 5:37 AM CRYPTOLOGIC LINGUIST MKTO Alkaline Phosphatase, P 83 40 - 129 U/L 01/11/2024 5:37 AM CRYPTOLOGIC LINGUIST MKTO Albumin, P 2.4(L) 3.5 - 5.0 g/dL 01/11/2024 5:37 AM CRYPTOLOGIC LINGUIST MKTO Protein, Total, P 5.2(L) 6.3 - 7.9 g/dL 01/11/2024 5:37 AM CRYPTOLOGIC LINGUIST MKTO Blood (Blood, Venous) 01/11/2024 4:48 AM CRYPTOLOGIC LINGUIST 01/11/2024 5:11 AM CRYPTOLOGIC LINGUIST us Jeremías Fernandez M.D. LAB BLOOD ADD-ON Final Resul t [facility] [address] [place] [address], [facility] MKTO [facility] [place] [address] * (ABNORMAL) CBC with Differential, Blood (01/11/2024 4:48 AM CRYPTOLOGIC LINGUIST) Only the most recent of10 resultswithin the time period is included. Hemoglobin 7.5(L) 13.2 - 16.6 g/dL 01/11/2024 5:14 AM CRYPTOLOGIC LINGUIST MKTO Hematocrit 24.9(L) 38.3 - 48.6 % 01/11/2024 5:14 AM CRYPTOLOGIC LINGUIST MKTO Erythrocytes 2.52(L) 4.35 - 5.65 x10(12)/L 01/11/2024 5:14 AM CRYPTOLOGIC LINGUIST MKTO MCV 98.8(H) 78.2 - 97.9 fL 01/11/2024 5:14 AM CRYPTOLOGIC LINGUIST MKTO RBC Distrib Width 14.5 11.8 - 14.5 % 01/11/2024 5:14 AM CRYPTOLOGIC LINGUIST MKTO Platelet Count 243 135 - 317 x10(9)/L 01/11/2024 5:14 AM CRYPTOLOGIC LINGUIST MKTO Leukocytes 8.8 3.4 - 9.6 x10(9)/L 01/11/2024 5:14 AM CRYPTOLOGIC LINGUIST MKTO Neutrophils 6.61(H) 1.56 - 6.45 x10(9)/L 01/11/2024 5:14 AM CRYPTOLOGIC LINGUIST MKTO Lymphocytes 0.97 0.95 - 3.07 x10(9)/L 01/11/2024 5:14 AM CRYPTOLOGIC LINGUIST MKTO Monocytes 0.98(H) 0.26 - 0.81 x10(9)/L 01/11/2024 5:14 AM CRYPTOLOGIC LINGUIST MKTO Eosinophils 0.15 0.03 - 0.48 x10(9)/L 01/11/2024 5:14 AM CRYPTOLOGIC LINGUIST MKTO Basophils 0.07 0.01 - 0.08 x10(9)/L 01/11/2024 5:14 AM CRYPTOLOGIC LINGUIST MKTO Blood (Blood, Venous) 01/11/2024 4:48 AM CRYPTOLOGIC LINGUIST 01/11/2024 5:11 AM CRYPTOLOGIC LINGUIST us Jeremías Fernandez M.D. LAB BLOOD ADD-ON Final Resul t Performing Organization Address City/[facility]/ZIP Co de Phone Number [facility] [address] [place] [address], [place] [address] * Phosphorus Inorganic (01/11/2024 4:48 AM CRYPTOLOGIC LINGUIST) Only the most recent of6 resultswithin the time period is included. Phosphorus (Inorganic), P 3.1 2.5 - 4.5 mg/dL 01/11/2024 5:37 AM CRYPTOLOGIC LINGUIST MKTO Blood (Blood, Venous) 01/11/2024 4:48 AM CRYPTOLOGIC LINGUIST 01/11/2024 5:11 AM CRYPTOLOGIC LINGUIST us Jeremías Fernandez M.D. LAB BLOOD ADD-ON Final Resul t Performing Organization Address City/[facility]/ZIP Co de Phone Number [facility] [address] [place] [address], [place] [address] * Magnesium (01/11/2024 4:48 AM CRYPTOLOGIC LINGUIST) Only the most recent of8 resultswithin the time period is included. Magnesium, P 1.7 1.7 - 2.3 mg/dL 01/11/2024 5:37 AM CRYPTOLOGIC LINGUIST MKTO Blood (Blood, Venous) 01/11/2024 4:48 AM CRYPTOLOGIC LINGUIST 01/11/2024 5:11 AM CRYPTOLOGIC LINGUIST us Jeremías Fernandez M.D. LAB BLOOD ADD-ON Final Resul t [facility] [address] [place] [address], [place] MKTO [facility] [place] [address] [place] [address] * (ABNORMAL) Basic Metabolic Panel (01/11/2024 4:48 AM CRYPTOLOGIC LINGUIST) Only the most recent of11 resultswithin the time period is included. Potassium, P 4.3 3.6 - 5.2 mmol/L 01/11/2024 5:37 AM CRYPTOLOGIC LINGUIST MKTO Sodium, P 143 135 - 145 mmol/L 01/11/2024 5:37 AM CRYPTOLOGIC LINGUIST MKTO Chloride, P 110(H) 98 - 107 mmol/L 01/11/2024 5:37 AM CRYPTOLOGIC LINGUIST MKTO Bicarbonate, P 24 22 - 29 mmol/L 01/11/2024 5:37 AM CRYPTOLOGIC LINGUIST MKTO Anion Gap, P 9 7 - 15 01/11/2024 5:37 AM CRYPTOLOGIC LINGUIST MKTO BUN (Blood Urea Nitrogen), P 33(H) 8 - 24 mg/dL 01/11/2024 5:37 AM CRYPTOLOGIC LINGUIST MKTO Creatinine 1.74(H) 0.74 - 1.35 mg/dL 01/11/2024 5:37 AM CRYPTOLOGIC LINGUIST MKTO Estimated GFR (eGFR) 38(L) >=60 mL/min/BSA 01/11/2024 5:37 AM CRYPTOLOGIC LINGUIST MKTO Comment: Estimated GFR calculated using the 2020 CKD_EPI creatinine equation. Calcium, Total, P 7.8(L) 8.8 - 10.2 mg/dL 01/11/2024 5:37 AM CRYPTOLOGIC LINGUIST MKTO Glucose, P 92 70 - 140 mg/dL 01/11/2024 5:37 AM CRYPTOLOGIC LINGUIST MKTO Blood (Blood, Venous) 01/11/2024 4:48 AM CRYPTOLOGIC LINGUIST 01/11/2024 5:11 AM CRYPTOLOGIC LINGUIST us Jeremías Fernandez M.D. LAB BLOOD ADD-ON Final Resul t Performing Organization Address City/[facility]/ZIP Co de Phone Number [facility] [address] [place] [address], [place] [address] * (ABNORMAL) Morphology Evaluation (01/09/2024 6:42 AM CRYPTOLOGIC LINGUIST) Only the most recent of5 resultswithin the time period is included. RBC Morphology See Specific Findings 01/09/2024 8:09 AM CRYPTOLOGIC LINGUIST MKTO PLT Morphology Normal 01/09/2024 8:09 AM CRYPTOLOGIC LINGUIST MKTO PLT Estimate Adequate Adequate 01/09/2024 8:09 AM CRYPTOLOGIC LINGUIST MKTO Anisocytosis Slight(A) 01/09/2024 8:09 AM CRYPTOLOGIC LINGUIST MKTO Basophilic Stippling Slight(A) 01/09/2024 8:09 AM CRYPTOLOGIC LINGUIST MKTO Elliptocytes Slight(A) Not Seen 01/09/2024 8:09 AM CRYPTOLOGIC LINGUIST MKTO Poikilocytosis Slight(A) Not Seen 01/09/2024 8:09 AM CRYPTOLOGIC LINGUIST MKTO Blood 01/09/2024 6:42 AM CRYPTOLOGIC LINGUIST 01/09/2024 7:05 AM CRYPTOLOGIC LINGUIST Jeremías Fernandez M.D. LAB BLOOD ADD-ON Final Resul t Performing Organization Address City/[facility] Co de Phone Number [facility] [address] [place] [address], [place], [place] [id number] * (ABNORMAL) Manual Differential, Blood (01/09/2024 6:42 AM CRYPTOLOGIC LINGUIST) Only the most recent of4 resultswithin the time period is included. Segmented Neutrophils 87(H) 50 - 75 % 01/09/2024 8:09 AM CRYPTOLOGIC LINGUIST MKTO Lymphocytes % 8(L) 18 - 42 % 01/09/2024 8:09 AM CRYPTOLOGIC LINGUIST MKTO Monocytes 1(L) 2 - 11 % 01/09/2024 8:09 AM CRYPTOLOGIC LINGUIST MKTO Eosinophils 1 1 - 3 % 01/09/2024 8:09 AM CRYPTOLOGIC LINGUIST MKTO Metamyelocytes 1(H) <1 % 01/09/2024 8:09 AM CRYPTOLOGIC LINGUIST MKTO Myelocytes 2(H) <0.5 % 01/09/2024 8:09 AM CRYPTOLOGIC LINGUIST MKTO Manual Absolute Neutrophil Count 10.27(H) 1.56 - 6.45 x10(9)/L 01/09/2024 8:09 AM CRYPTOLOGIC LINGUIST MKTO Comment: ----ADDITIONAL INFORMATION---- The manual absolute neutrophil count is derived from a manual differential count and therefore is not exactly comparable to the automated absolute neutrophil count. Blood 01/09/2024 6:42 AM CRYPTOLOGIC LINGUIST 01/09/2024 7:05 AM CRYPTOLOGIC LINGUIST us Jeremías Fernandez M.D. LAB BLOOD ADD-ON Final Resul t [facility] [address] [place] [address], [facility] MKTO [facility] [place] [address] [place] [address] * CT Chest without IV Contrast (01/08/2024 1:11 PM CRYPTOLOGIC LINGUIST) Anatomical Region Laterality Modality Chest, Thoracic RST LOS, Tho racic ARZ LOS, Thoracic FLA LOS N/A Computed Tomography Impressions 01/08/2024 2:48 PM CRYPTOLOGIC LINGUIST 1. Loculated right pleural collection with adjacent consolidation or atelectasis in the right lower lobe. 2. Right chest tube pigtail is positioned at the interface of the pleural space with the adjacent chest wall. Correlation with chest tube function recommended. 3. No fluid collection within the chest wall. Small right chest wall emphysema. Narrative 01/08/2024 2:48 PM CRYPTOLOGIC LINGUIST EXAM: CT CHEST WITHOUT IV CONTRAST COMPARISON: [...] the chest wall. Small right chest wallemphysema. Fidencio Oliva M.D. IMG CT PROCEDURES Final Resul t * DX Chest 1 View (01/08/2024 7:16 AM CRYPTOLOGIC LINGUIST) Only the most recent of3 resultswithin the time period is included. Anatomical Region Laterality Modality Chest, Thoracic RST LOS, Tho racic ARZ LOS, Thoracic FLA LOS N/A Digital Radiography Impressions 01/08/2024 7:44 AM CRYPTOLOGIC LINGUIST Interval retraction of the right pleural catheter. The pigtail projects over the lateral chest wall soft tissues and requires correlation with positioning and catheter output. Persisting right pleural effusion/pleural thickening and right basilar airspace opacity. Narrative 01/08/2024 7:44 AM CRYPTOLOGIC LINGUIST EXAM: DX CHEST 1 VIEW COMPARISON: January [...] pleural effusion/pleuralthickening and right basilar airspace opacity. Fidencio Oliva M.D. IMG DIAGNOSTIC IMAGING PROCED URES Final Result * Tropheryma whipplei PCR, Blood (01/06/2024 11:36 AM CRYPTOLOGIC LINGUIST) Specimen Source BLOOD 12:26 PM CRYPTOLOGIC LINGUIST DTL Tropheryma whipplei PCR, B, Result Negative Not Applicable 01/08/2024 12:26 PM CRYPTOLOGIC LINGUIST DTL Comment: ----ADDITIONAL INFORMATION---- This test was developed and its performance characteristics determined by [facility] in a manner consistent with CLIA requirements. This test has not been cleared or approved by the U.S. Food and Drug Administration. Blood (Blood, Venous) 01/06/2024 11:36 AM CRYPTOLOGIC LINGUIST 01/07/2024 8:06 AM CRYPTOLOGIC LINGUIST Sarah Rose M.D. LAB MICROBIOLOG Y - BLOOD ORDERABLES Final Result [facility] [address] [place] [address], [facility] DT [address] [place] [address] * [id number] [facility] Test for Pathogen Detection - Miscellaneous Test (01/06/2024 11:36 AM CRYPTOLOGIC LINGUIST) Test Name [facility] Test for Pathogen Detection 01/06/2024 11:49 AM CRYPTOLOGIC LINGUIST MKTO Result Specimen sent out; results to follow DEFAULT 01/06/2024 11:49 AM CRYPTOLOGIC LINGUIST MKTO Blood (Blood, Venous) 01/06/2024 11:36 AM CRYPTOLOGIC LINGUIST 01/06/2024 11:49 AM CRYPTOLOGIC LINGUIST us Sarah Rose M.D. LAB [facility] Final Result [facility] [address] [place] [address], [place] MKTO [facility] [place] [address] [place] [address] * [facility] Sent Out Lab (01/06/2024 10:59 AM CRYPTOLOGIC LINGUIST) Test Name [facility] Test for Pathogen Detection 01/06/2024 11:49 AM CRYPTOLOGIC LINGUIST [place] Result SEE COMMENT 01/11/2024 9:44 AM CRYPTOLOGIC LINGUIST [place] Comment: For final report, select Lab-Send Out Lab Results hyperlink below. 01/06/2024 10:5 9 AM CRYPTOLOGIC LINGUIST 01/07/2024 8:53 AM CRYPTOLOGIC LINGUIST us Sarah Rose M.D. LAB [facility] Final Result Performing Organization Address City/[facility]/ZIP Co de Phone Number [facility] [address] [place] [address], [facility] [place] [facility] [address] [place] [phone] * (ABNORMAL) Renal Function Panel (01/06/2024 5:37 AM CRYPTOLOGIC LINGUIST) Potassium, P 3.3(L) 3.6 - 5.2 mmol/L 01/06/2024 6:11 AM CRYPTOLOGIC LINGUIST MKTO Sodium, P 142 135 - 145 mmol/L 01/06/2024 6:11 AM CRYPTOLOGIC LINGUIST MKTO Chloride, P 104 98 - 107 mmol/L 01/06/2024 6:11 AM CRYPTOLOGIC LINGUIST MKTO Bicarbonate, P 25 22 - 29 mmol/L 01/06/2024 6:11 AM CRYPTOLOGIC LINGUIST MKTO Anion Gap, P 13 7 - 15 01/06/2024 6:11 AM CRYPTOLOGIC LINGUIST MKTO BUN (Blood Urea Nitrogen), P 37(H) 8 - 24 mg/dL 01/06/2024 6:11 AM CRYPTOLOGIC LINGUIST MKTO Creatinine 1.91(H) 0.74 - 1.35 mg/dL 01/06/2024 6:11 AM CRYPTOLOGIC LINGUIST MKTO Estimated GFR (eGFR) 34(L) >=60 mL/min/BSA 01/06/2024 6:11 AM CRYPTOLOGIC LINGUIST MKTO Comment: Estimated GFR calculated using the 2020 CKD_EPI creatinine equation. Calcium, Total, P 8.4(L) 8.8 - 10.2 mg/dL 01/06/2024 6:11 AM CRYPTOLOGIC LINGUIST MKTO Glucose, P 92 70 - 140 mg/dL 01/06/2024 6:11 AM CRYPTOLOGIC LINGUIST MKTO Albumin, P 2.7(L) 3.5 - 5.0 g/dL 01/06/2024 6:11 AM CRYPTOLOGIC LINGUIST MKTO Phosphorus (Inorganic), P 2.7 2.5 - 4.5 mg/dL 01/06/2024 6:11 AM CRYPTOLOGIC LINGUIST MKTO Blood (Blood, Venous) 01/06/2024 5:37 AM CRYPTOLOGIC LINGUIST 01/06/2024 5:47 AM CRYPTOLOGIC LINGUIST us Vidhya Tovar P.A.-C. LAB BLOOD ADD-ON Final Resu lt [facility] [address] [place] [address], [facility] MKTO [facility] [place] [address] * ECG 12 Lead (01/06/2024 5:32 AM CRYPTOLOGIC LINGUIST) Only the most recent of2 resultswithin the time period is included. Ventricular Rate ECG/Min 98 BPM MUSE [place] Interval 164 ms MUSE QRSD Interval 128 ms MUSE QT Interval 398 ms MUSE QTC Interval 508 ms MUSE P Supply 52 degrees MUSE R Supply -72 degrees MUSE T Wave Supply 53 degrees MUSE 01/06/2024 5:32 AM CRYPTOLOGIC LINGUIST 01/06/2024 5:40 AM CRYPTOLOGIC LINGUIST Impressions MUSE - 01/06/2024 5:40 AM CRYPTOLOGIC LINGUIST Normal sinus rhythm Right bundle branch block [...] Reviewed by GABRIELA Roa us Laura Chavez APRN C.N.PEliel ECG ORDERABLES Sury kaye Result MUSE NA * IR Chest Tube Placement (01/05/2024 1:42 PM CRYPTOLOGIC LINGUIST) Anatomical Region Laterality Modality Chest, Vascular Intervention al RST LOS, Vascular Interventional ARZ LOS, Vascular Interventional FLA LOS N/A X-Ray Angiography Impressions 01/05/2024 2:17 PM CRYPTOLOGIC LINGUIST 1. Right chest tube placement. Narrative 01/05/2024 2:17 PM CRYPTOLOGIC LINGUIST EXAM: IR CHEST TUBE PLACEMENT HISTORY: R [...] Patient education provided by a care steam gigger. Patient was ready to learn with no apparent learning barriers were identified. Post-procedure care explained; patient expressed understanding of the content. PROCEDURE DETAILS: Sedation: None. Local anesthesia was achieved with lidocaine. Sedation time: None Estimated Blood Loss: Less than 10 mL. TECHNIQUE: Imaging guidance for drain insertion: Ultrasound and fluoroscopy with permanent image storage Access side: Right Catheter: 12 [place] Helenian multipurpose pigtail drain Technique: Image guidance was used to localize the collection. A 5 [place] Helen[place] Yueh needle catheter was used to access the collection under real time image guidance, and images were saved to PACS. Aspiration yielded purulent fluid. A guidewire was inserted, and the tract was dilated to accommodate a 12 [place] Helenian pigtail drain. The catheter was secured with [...] Patient education provided by a care steam gigger. Patient was ready to learn withno apparent learning barriers were identified. Post-procedure careexplained; patient expressed understanding of the content. PROCEDURE DETAILS: Sedation: None. Local anesthesia was achieved with lidocaine. Sedation time: None Estimated Blood Loss: Less than 10 mL. TECHNIQUE: Imaging guidance for drain insertion: Ultrasound and fluoroscopy withpermanent image storage Access side: Right Catheter: 12 [place] Helenian multipurpose pigtail drain Technique: Image guidance was used to localize the collection. A 5 FrenchYueh needle catheter was used to access the collection under real timeimage guidance, and images were saved to PACS. Aspiration yielded purulentfluid. A guidewire was inserted, and the tract was dilated to accommodate a 12 [place] Helenian pigtail drain. Thecatheter was secured with 2-0 Ethilon suture. The catheter was connectedto Pleur-evac Intraprocedural or immediate post-procedural complications: None FINDINGS: Catheter tip location: Final image was demonstrates the catheter tip to belocated in the right pleural space Additional observations: N/A PLAN: Follow-up with pulmonology. IMPRESSION: 1. Right chest tube placement. us Fidencio TORRES IR PROCEDURES Final Resul t * Cytology Non-HOSE COUPLING JOINER (01/05/2024 12:50 PM CRYPTOLOGIC LINGUIST) Only the most recent of2 resultswithin the time period is included. 01/07/2024 3:19 PM CRYPTOLOGIC LINGUIST HKCY Disclaimer This test has been modified from the access specialist's instructions. Its performance characteristics were determined by [facility] in a manner consistent with CLIA requirements. This test has not been cleared or approved by the U.S. Food and Drug Administration. 01/07/2024 3:19 PM CRYPTOLOGIC LINGUIST HKCY Report electronically signed by LOLY Schwartz. Ch.B. I verify that I have examined all relevant slides/materials for the specimen(s) and rendered or confirmed the diagnosis. 01/07/2024 3:19 PM CRYPTOLOGIC LINGUIST HKCY Gross Description 50 ml of cloudy hubbard fluid received. Specimen fixed at 2:20 pm on 01-05-2024. 2 slides and cell block prepared. 01/07/2024 3:19 PM CRYPTOLOGIC LINGUIST HKCY Source A. Pleural, fluid 024 3:19 PM CRYPTOLOGIC LINGUIST HKCY Interpretation A. Pleural, fluid (smears/cell block): Negative for malignancy. Acute inflammation. COMMENT Immunohistochemica l stains with appropriate reactive controls was performed on separate slides on cell block. CK7, WT1, calretinin, TTF1, Napsin A, p40, CK20, NKX3.1 and CDX2: Negative Controls reviewed, results acceptable. 01/07/2024 3:19 PM CRYPTOLOGIC LINGUIST HKCY Fluid 01/05/2024 12:5 0 PM CRYPTOLOGIC LINGUIST 01/06/2024 7:16 AM CRYPTOLOGIC LINGUIST us Fidencio Oliva M.D. LAB SURG PATH ORDERABLES Sury l Result Performing Organization Address [facility] Co de Phone Number [facility] [address] [place] [address], [place] HKCY [address] [facility] [address] [place] [address] * Protein, Total, Body Fluid (01/05/2024 12:50 PM CRYPTOLOGIC LINGUIST) Only the most recent of2 resultswithin the time period is included. Protein, Total, BF 2.6 See Comment g/dL 01/06/2024 11:13 AM CRYPTOLOGIC LINGUIST DTL Comment: ----ADDITIONAL INFORMATION---- A pleural fluid [...] clinical findings. All other fluids refer to [email or web address] for further interpretive information. This test has been modified from the access specialist's instructions. Its performance characteristics were determined by [facility] in a manner consistent with CLIA requirements. This test has not been cleared or approved by the U.S. Food and Drug Administration. Fluid Type, Protein, Total PLEURAL 01/06/2024 10:14 AM CRYPTOLOGIC LINGUIST DTL Fluid (Pleural Fluid) 01/05/2024 12:50 PM CRYPTOLOGIC LINGUIST 01/06/2024 10:01 AM CRYPTOLOGIC LINGUIST us Fidencio Oliva M.D. LAB BODY FLUIDS AND STOOLS OR DERABLES Final Result Performing Organization Address City/[facility]/ZIP Co de Phone Number [facility] [address] [place] [address], [place] DTL [facility] [address] [place] [address] * (ABNORMAL) Bacterial Culture, Aerobic + Susceptibility (01/05/2024 12:50 PM CRYPTOLOGIC LINGUIST) Only the most recent of2 resultswithin the time period is included. Bacterial Culture, Aerobic + Susc STREPTOCOCCUS ANGINOSUS GROUP [place] (A) 01/09/2024 7:56 AM CRYPTOLOGIC LINGUIST [facility] Fluid (Pleural Fluid) 01/05/2024 12:50 PM CRYPTOLOGIC LINGUIST 01/05/2024 1:47 PM CRYPTOLOGIC LINGUIST Comment:Specimen Source Site : Fluid Narrative Organism [...] SUSCEPTIBILITY, ROLF (MCG/ML) <=0.06 mcg/mL: Susceptible us Fidencio Oliva M.D. LAB MICROBIOLOGY - GENERAL OR DERABLES Final Result [facility] [address] [place] [address], [facility] [place] [address] [place] [address] * Cell Count and Differential, Body Fluid (01/05/2024 12:50 PM CRYPTOLOGIC LINGUIST) Only the most recent of2 resultswithin the time period is included. Fluid Type Pleural/Thor acentesis 01/05/2024 2:19 PM CRYPTOLOGIC LINGUIST MKTO Gross Appearance Purulent 01/05/20 24 2:40 PM CRYPTOLOGIC LINGUIST MKTO Total Nucleated Cells [id number] /[id number] 01/05/2024 2:40 PM CRYPTOLOGIC LINGUIST MKTO Comment: ----REFERENCE VALUE---- Synovial: <150 Peritoneal: <500 Pleural: <500 Pericardial: <500 ----ADDITIONAL INFORMATION---- This test has been modified from the access specialist's instructions. Its performance characteristics were determined by [facility] in a manner consistent with CLIA requirements. This test has not been cleared or approved by the U.S. Food and Drug Administration. Neutrophils 100 % 01/05/2024 3:04 PM CRYPTOLOGIC LINGUIST MKTO Comment: ----REFERENCE VALUE---- Synovial: <25% Peritoneal: <25% Pleural: <25% Pericardial: <25% Reviewed by: Dr. Morton 01/05/2024 3:05 PM CRYPTOLOGIC LINGUIST MKTO Fluid (Pleural Fluid) 01/05/2024 12:50 PM CRYPTOLOGIC LINGUIST 01/05/2024 1:47 PM CRYPTOLOGIC LINGUIST Fidencio Oliva M.D. LAB BODY FLUIDS AND STOOLS OR DERABLES Final Result Performing Organization Address [facility]/State/ZIP Co de Phone Number [facility] [address] [place] [address], [facility] [place] [address] * Triglycerides, Body Fluid (01/05/2024 12:50 PM CRYPTOLOGIC LINGUIST) Triglycerides, BF 31 See Comment mg/dL 01/06/2024 11:13 AM CRYPTOLOGIC LINGUIST DTL Comment: ----ADDITIONAL INFORMATION---- Pleural fluid triglyceride concentrations > 110 mg/dL are consistent with chylous effusions. Triglyceride concentrations <50 mg/dL are usually not due to chylous effusions. Peritoneal fluid triglyceride concentrations > 187 mg/dL are most consistent with chylous effusion. All other fluids refer to [email or web address] for further interpretive information. This test has been modified from the access specialist's instructions. Its performance characteristics were determined by [facility] in a manner consistent with CLIA requirements. This test has not been cleared or approved by the U.S. Food and Drug Administration. Fluid Type Pleural 01/06/2024 10:14 AM CRYPTOLOGIC LINGUIST DTL Fluid (Pleural Fluid) 01/05/2024 12:50 PM CRYPTOLOGIC LINGUIST 01/06/2024 10:01 AM CRYPTOLOGIC LINGUIST Fidencio Oliva M.D. LAB BODY FLUIDS AND STOOLS OR DERABLES Final Result Performing Organization Address [facility] Co de Phone Number [facility] [address] [place] [address], [facility] [address] [place] [address] * pH, Pleural Fluid (01/05/2024 12:50 PM CRYPTOLOGIC LINGUIST) pH, Pleural Fluid <6.80 Not Applicable pH 01/05/2024 1:59 PM CRYPTOLOGIC LINGUIST MKTO Comment: Clinical guidelines suggest that in parapneumonic pleural effusions, a pH <7.2 indicate the need for tube drainage. Fluid (Pleural Fluid) 01/05/2024 12:50 PM CRYPTOLOGIC LINGUIST 01/05/2024 1:47 PM CRYPTOLOGIC LINGUIST us Fidencio Oliva M.D. LAB BODY FLUIDS AND STOOLS OR DERABLES Final Result Performing Organization Address City/[facility] Co de Phone Number [facility] [address] [place] [address], [facility] MKTO [facility] in [address] [address] * (ABNORMAL) Gram Stain (01/05/2024 12:50 PM CRYPTOLOGIC LINGUIST) Only the most recent of3 resultswithin the time period is included. Gram Stain White blood cells, Many.(A) 01/05/2024 2:46 PM CRYPTOLOGIC LINGUIST MKTO Gram Stain GRAM POSITIVE COCCI Many. (A) 01/05/2024 2:46 PM CRYPTOLOGIC LINGUIST MKTO Fluid (Pleural Fluid) 01/05/2024 12:50 PM CRYPTOLOGIC LINGUIST 01/05/2024 1:47 PM CRYPTOLOGIC LINGUIST Comment:Specimen Source Site : Fluid Fidencio Oliva M.D. LAB MICROBIOLOGY - GENERAL OR DERABLES Final Result Performing Organization Address [facility] Co de Phone Number [facility] [address] [place] [address], [address] [address] * Bacterial Culture, Anaerobic + Susceptibility (01/05/2024 12:50 PM CRYPTOLOGIC LINGUIST) Only the most recent of2 resultswithin the time period is included. Bacterial Culture, Anaerobic No growth after 7 days of incubation. 01/12/2024 7:59 AM CRYPTOLOGIC LINGUIST [facility] Fluid (Pleural Fluid) 01/05/2024 12:50 PM CRYPTOLOGIC LINGUIST 01/05/2024 1:47 PM CRYPTOLOGIC LINGUIST Comment:Specimen Source Site : Fluid Fidencio Oliva M.D. LAB MICROBIOLOGY - GENERAL OR DERABLES Final Result Performing Organization Address [facility] Co de Phone Number [facility] [address] [place] [address], [address] [address] * Lactate Dehydrogenase (LD), Body Fluid (01/05/2024 12:50 PM CRYPTOLOGIC LINGUIST) Only the most recent of2 resultswithin the time period is included. Lactate Dehydrogenase (LD), BF >9000 See Comment U/L 01/06/2024 12:17 PM CRYPTOLOGIC LINGUIST DTL Comment: ----ADDITIONAL INFORMATION---- Pleural fluid lactate [...] clinical findings. All other fluids refer to [email or web address] for further interpretive information. This test has been modified from the access specialist's instructions. Its performance characteristics were determined by [facility] in a manner consistent with CLIA requirements. This test has not been cleared or approved by the U.S. Food and Drug Administration. Fluid Type, Lactate Dehydrogenase PLEURAL 01/06/2024 10:14 AM CRYPTOLOGIC LINGUIST DTL Fluid (Pleural Fluid) 01/05/2024 12:50 PM CRYPTOLOGIC LINGUIST 01/06/2024 8:29 AM CRYPTOLOGIC LINGUIST Fidencio Oliva M.D. LAB BODY FLUIDS AND STOOLS OR DERABLES Final Result [facility] [address] [place] [address], [facility] [address] [place] [address] * Glucose, Body Fluid (01/05/2024 12:50 PM CRYPTOLOGIC LINGUIST) Only the most recent of2 resultswithin the time period is included. Glucose, BF 49 See Comment mg/dL 01/06/2024 11:13 AM CRYPTOLOGIC LINGUIST DTL Comment: ----ADDITIONAL INFORMATION---- Body fluid glucose [...] cystic lesions. All other fluids refer to [email or web address] for further interpretive information. This test has been modified from the access specialist's instructions. Its performance characteristics were determined by [facility] in a manner consistent with CLIA requirements. This test has not been cleared or approved by the U.S. Food and Drug Administration. Fluid Type, Glucose PLEURAL 01/05 10:14 AM CRYPTOLOGIC LINGUIST DTL Fluid (Pleural Fluid) 01/05/2024 12:50 PM CRYPTOLOGIC LINGUIST 01/06/2024 10:01 AM CRYPTOLOGIC LINGUIST Fidencio Oliva M.D. LAB BODY FLUIDS AND STOOLS OR DERABLES Final Result [facility] [address] [place] [address], [facility] [address] [place] [address] * Pneumonia Panel, PCR (01/04/2024 7:45 PM CRYPTOLOGIC LINGUIST) Specimen Source SPUTUM 10:43 PM CRYPTOLOGIC LINGUIST MKTO Acinetobacter calcoaceticus-balbir annii complex Undetected Undetected copies/mL 01/04/2024 10:43 PM CRYPTOLOGIC LINGUIST MKTO Enterobacter cloacae complex Undetected Undetected copies/mL 01/04/2024 10:43 PM CRYPTOLOGIC LINGUIST MKTO Escherichia coli Undetected Undetected copies/mL 01/04/2024 10:43 PM CRYPTOLOGIC LINGUIST MKTO Haemophilus influenzae Undetected Undetected copies/mL 01/04/2024 10:43 PM CRYPTOLOGIC LINGUIST MKTO Klebsiella aerogenes Undetected Undetected copies/mL 01/04/2024 10:43 PM CRYPTOLOGIC LINGUIST MKTO Klebsiella oxytoca Undetected Undetected copies/mL 01/04/2024 10:43 PM CRYPTOLOGIC LINGUIST MKTO Klebsiella pneumoniae complex Undetected Undetected copies/mL 01/04/2024 10:43 PM CRYPTOLOGIC LINGUIST MKTO Moraxella catarrhalis Undetected Undetected copies/mL 01/04/2024 10:43 PM CRYPTOLOGIC LINGUIST MKTO Proteus species Undetected Undetected copies/mL 01/04/2024 10:43 PM CRYPTOLOGIC LINGUIST MKTO Pseudomonas aeruginosa Undetected Undetected copies/mL 01/04/2024 10:43 PM CRYPTOLOGIC LINGUIST MKTO Serratia marcescens Undetected Undetected copies/mL 01/04/2024 10:43 PM CRYPTOLOGIC LINGUIST MKTO Staphylococcus aureus complex Undetected Undetected copies/mL 01/04/2024 10:43 PM CRYPTOLOGIC LINGUIST MKTO Streptococcus agalactiae Undetected Undetected copies/mL 01/04/2024 10:43 PM CRYPTOLOGIC LINGUIST MKTO Streptococcus pneumoniae Undetected Undetected copies/mL 01/04/2024 10:43 PM CRYPTOLOGIC LINGUIST MKTO Streptococcus pyogenes Undetected Undetected copies/mL 01/04/2024 10:43 PM CRYPTOLOGIC LINGUIST MKTO Chlamydia pneumoniae Undetected Undetected 01/04/2024 10:43 PM CRYPTOLOGIC LINGUIST MKTO Legionella pneumophila Undetected Undetected 01/04/2024 10:43 PM CRYPTOLOGIC LINGUIST MKTO Mycoplasma pneumoniae Undetected Undetected 01/04/2024 10:43 PM CRYPTOLOGIC LINGUIST MKTO Adenovirus Undetected Undetected 01/04/2024 10:43 PM CRYPTOLOGIC LINGUIST MKTO Coronavirus Undetected Undetected 01/04/2024 10:43 PM CRYPTOLOGIC LINGUIST MKTO Human Metapneumovirus Undetected Undetected 01/04/2024 10:43 PM CRYPTOLOGIC LINGUIST MKTO Human Rhinovirus/Enterov irus Undetected Undetected 01/04/2024 10:43 PM CRYPTOLOGIC LINGUIST MKTO Influenza A Undetected Undetected 01/04/2024 10:43 PM CRYPTOLOGIC LINGUIST MKTO Influenza B Undetected Undetected 01/04/2024 10:43 PM CRYPTOLOGIC LINGUIST MKTO Parainfluenza Undetected Undetected 01/04/2024 10:43 PM CRYPTOLOGIC LINGUIST MKTO Respiratory Syncytial Virus Undetected Undetected 01/04/2024 10:43 PM CRYPTOLOGIC LINGUIST MKTO Comment: ----ADDITIONAL INFORMATION---- This assay is performed using the FDA-cleared FilmArray Pneumonia Panel (PN) (Graffiti.). Any initial empiric treatment guidance provided in [...] SARS-CoV-2. Sputum (Sputum) 01/04/2024 7 :45 PM CRYPTOLOGIC LINGUIST 01/04/2024 7:55 PM CRYPTOLOGIC LINGUIST us Octavio Cavazos, Ch.B. LAB MICROBIOLOGY - GENERAL ORDERABLES Final Result [facility] [address] [place] [address], [facility] MKTO [address] [address] * Bacterial Culture, Aerobic + Susceptibility, Respiratory (01/04/2024 7:45 PM CRYPTOLOGIC LINGUIST) Bacterial Culture, Aerobic, Resp No growth after 2 days of incubation. 01/06/2024 8:19 AM CRYPTOLOGIC LINGUIST [facility] HOSPITAL Sputum (Sputum) 01/04/2024 7 :45 PM CRYPTOLOGIC LINGUIST 01/04/2024 7:55 PM CRYPTOLOGIC LINGUIST Comment:Specimen Source Site : Sputum us Octavio Cavazos, B. LAB MICROBIOLOGY - GENERAL ORDERABLES Final Result Performing Organization Address [facility] Co de Phone Number [facility] [address] [place] [address], [place] [address] * MRSA PCR, Nasal (01/04/2024 7:45 PM CRYPTOLOGIC LINGUIST) Pathologist [facility] MRSA Screen, Nasal by PCR Negative Negative 01/04/2024 9:24 PM CRYPTOLOGIC LINGUIST [facility] Swab (Nares) 01/04/2024 7:45 PM CRYPTOLOGIC LINGUIST 01/04/2024 7:53 PM CRYPTOLOGIC LINGUIST us Frank Mccall M.D. LAB MICROBIOLOGY - GENERAL ORDERABLES Final Result Performing Organization Address [facility] de Phone Number [facility] [address] [place] [address], [place] [address] * Ankle, Right-Nursing Image Exam (01/04/2024 7:40 PM CRYPTOLOGIC LINGUIST) 01/04/2024 7:39 PM CRYPTOLOGIC LINGUIST Narrative IIMS - 01/04/2024 7:42 PM CRYPTOLOGIC LINGUIST This order has been created and auto-finalized to support the import of images acquired without order. The clinical documentation to support these images can be found on the encounter that produced images. us Provider Not In System IMG NON RAD IMAGING PROCE DURES Final Result Performing Organization Address [facility] Co de Phone Number IIIL NA * (TTE) 2D ECHO DOPPLER COLOR AND CONTRAST (01/04/2024 10:38 AM CRYPTOLOGIC LINGUIST) Pathologist [facility] Ejection Fraction 59 MC CV EIMS Sinus [...] Region Laterality Modality Echocardiography 01/04/2024 9:49 AM CRYPTOLOGIC LINGUIST Impressions 01/04/2024 11:49 AM CRYPTOLOGIC LINGUIST Echo performed at the patient's bedside. LEFT [...] per Echocardiography Contrast Administration Protocol Reference Document [id number] Rev 05/30/2021. Patient met an inclusion criterion and did not have contraindications in screening sections. For the complete report, see the Order-Level Documents. Narrative 01/04/2024 11:49 AM CRYPTOLOGIC LINGUIST For the complete report, see the Order-Level [...] administered per EchocardiographyContrast Administration Protocol Reference Document [id number] Rev05/30/2021. Patient met an inclusion criterion and did not havecontraindications in screening sections. For the complete report, see the Order-Level Documents. Jet Palomares M.D. CV ECHO PROCEDURES Sury l Result * (ABNORMAL) Urinalysis with Microscopic if Indicated (01/04/2024 5:56 AM CRYPTOLOGIC LINGUIST) Source Urine, Urine, Midstream 01/04/2024 6:03 AM CRYPTOLOGIC LINGUIST [facility] Clarity Cloudy(A) Clear 01/04/2024 6:37 AM CRYPTOLOGIC LINGUIST [facility] Color Yellow 01/04/2024 6:37 AM CRYPTOLOGIC LINGUIST [facility] Comment: ----REFERENCE VALUE---- Colorless Yellow Veronica Blood Negative Negative 01/04/2024 6:37 AM CRYPTOLOGIC LINGUIST [facility] Nitrite Negative Negative 01/04/2024 6:37 AM CRYPTOLOGIC LINGUIST [facility] Leukocyte Esterase Negative Negative 01/04/2024 6:37 AM CRYPTOLOGIC LINGUIST [facility] Protein 30(A) mg/dL 01/04/2024 6:37 AM CRYPTOLOGIC LINGUIST [facility] Comment: ----REFERENCE VALUE---- Negative Trace Glucose Negative Negative mg/dL 01/04/2024 6:37 AM CRYPTOLOGIC LINGUIST [facility] Ketone Trace(A) Negative mg/dL 01/04/2024 6:37 AM CRYPTOLOGIC LINGUIST [facility] Bilirubin Negative Negative 01/04/2024 6:37 AM CRYPTOLOGIC LINGUIST [facility] pH 5.0 5.0 - 8.0 01/04/2024 6:37 AM CRYPTOLOGIC LINGUIST [facility] Specific [place] 1.014 1.001 - 1.035 01/04/2024 6:37 AM CRYPTOLOGIC LINGUIST [facility] Urobilinogen 0.2 0.2 - 1.0 mg/dL 01/04/2024 6:37 AM CRYPTOLOGIC LINGUIST [facility] Urine (Urine, Midstream) 01/04/2024 5:56 AM CRYPTOLOGIC LINGUIST 01/04/2024 6:02 AM CRYPTOLOGIC LINGUIST us Jet Palomares M.D. LAB URINE ORDERABLES Fi nal Result Performing Organization Address City/State/[facility] Co de Phone Number [facility] [address] [place] [address], [facility] MKTO [facility] [place] [address] [place] [address] * Sodium, Random, Urine (01/04/2024 5:56 AM CRYPTOLOGIC LINGUIST) Sodium, Random, U 28 mmol/L 01/04/2024 6:54 AM CRYPTOLOGIC LINGUIST [facility] Comment: ----REFERENCE VALUE---- Random urine sodium may be interpreted in conjunction with serum sodium, using both values to calculate fractional excretion of sodium. Urine (Urine, Midstream) 01/04/2024 5:56 AM CRYPTOLOGIC LINGUIST 01/04/2024 6:01 AM CRYPTOLOGIC LINGUIST Fausto Bey M.D. LAB URINE ORDERABLES Final Resu lt [facility] [address] [place] [address], [place] [address] * (ABNORMAL) Microscopic Automated (01/04/2024 5:56 AM CRYPTOLOGIC LINGUIST) White Blood Cells 4-10(A) /hpf 01/04/2024 6:58 AM CRYPTOLOGIC LINGUIST [facility] Comment: ----REFERENCE VALUE---- Males: 0-3 Females: 0-10 Unknown: 0-10 Red Blood Cells None Seen 0 - 2 /hpf 01/04/2024 6:58 AM CRYPTOLOGIC LINGUIST [facility] Hyaline Casts 4-10 /lpf 01/04/2024 6:58 AM CRYPTOLOGIC LINGUIST [facility] Squamous Cells Occ-3 /hpf 01/04/2024 6:58 AM CRYPTOLOGIC LINGUIST [facility] Urine 01/04/2024 5:56 AM CRYPTOLOGIC LINGUIST 01/04/2024 6:02 AM CRYPTOLOGIC LINGUIST us Jet Palomares M.D. LAB URINE ORDERABLES Fi nal Result Performing Organization Address City/[facility] Co de Phone Number [facility] [address] [place] [address], [place] [address] * (ABNORMAL) Protein/Creatinine Ratio, Random, Urine (01/04/2024 5:56 AM CRYPTOLOGIC LINGUIST) Protein, Total, Random, U 33 mg/dL 01/04/2024 6:54 AM CRYPTOLOGIC LINGUIST [facility] Creatinine, Random, U 94 16 - 326 mg/dL 01/04/2024 6:54 AM CRYPTOLOGIC LINGUIST [facility] Protein/Creati nine Ratio 0.35(H) <0.18 mg/mg 01/04/2024 6:54 AM CRYPTOLOGIC LINGUIST [facility] Urine (Urine, Midstream) 01/04/2024 5:56 AM CRYPTOLOGIC LINGUIST 01/04/2024 6:02 AM CRYPTOLOGIC LINGUIST us Jet Palomares M.D. LAB URINE ORDERABLES Fi nal Result Performing Organization Address [facility]/ZIP Co de Phone Number [facility] [address] [place] [address] * (ABNORMAL) NT-Pro B-Type Natriuretic Peptide (BNP) (01/04/2024 4:56 AM CRYPTOLOGIC LINGUIST) Only the most recent of3 resultswithin the time period is included. NT-Pro BNP 5163(H) <=540 pg/mL 01/04/2024 8:20 AM CRYPTOLOGIC LINGUIST [facility] Comment: NT-proBNP values less than 300 [...] failure. Blood (Blood, Venous) 01/04/2024 4:56 AM CRYPTOLOGIC LINGUIST 01/04/2024 8:01 AM CRYPTOLOGIC LINGUIST Portia Ramos M.D., Ph.D. LAB BLOOD ADD-ON Final Res ult Performing Organization Address [facility] Co de Phone Number [facility] [address] [place] [address], [place] [address] * (ABNORMAL) Iron and Total Iron-Binding Capacity (01/04/2024 4:56 AM CRYPTOLOGIC LINGUIST) Iron 38(L) 50 - 150 mcg/dL 01/04/2024 8:32 AM CRYPTOLOGIC LINGUIST [facility] Total Iron Binding Capacity 79(L) 250 - 400 mcg/dL 01/04/2024 8:32 AM CRYPTOLOGIC LINGUIST [facility] Percent Saturation 48 14 - 50 % 01/04/2024 8:32 AM CRYPTOLOGIC LINGUIST [facility] Blood (Blood, Venous) 01/04/2024 4:56 AM CRYPTOLOGIC LINGUIST 01/04/2024 8:02 AM CRYPTOLOGIC LINGUIST Portia Ramos M.D., Ph.D. LAB BLOOD ADD-ON Final Res ult Performing Organization Address [facility] de Phone Number [facility] [address] [place] [address] * Parathyroid Hormone (PTH) (01/04/2024 4:56 AM CRYPTOLOGIC LINGUIST) Parathyroid Hormone (PTH), S 43 15 - 65 pg/mL 01/04/2024 8:32 AM CRYPTOLOGIC LINGUIST [facility] Comment: Biotin has been identified by the access specialist as a potential interfering substance. Higher concentrations of biotin may be found in multivitamins, hair/nail supplements, and workout supplements. If the result does not match clinical observations, repeat testing after patient refrains from the use of supplements for at least 12 hours. Blood (Blood, Venous) 01/04/2024 4:56 AM CRYPTOLOGIC LINGUIST 01/04/2024 8:02 AM CRYPTOLOGIC LINGUIST Portia Ramos M.D., Ph.D. LAB BLOOD ADD-ON Final Res ult Performing Organization Address [facility] de Phone Number [facility] [address] [place] [address], [place] [address] * (ABNORMAL) Ferritin (01/04/2024 4:56 AM CRYPTOLOGIC LINGUIST) Ferritin, S 1703(H) 31 - 409 mcg/L 01/04/2024 8:32 AM CRYPTOLOGIC LINGUIST [facility] Comment: Biotin has been identified by the access specialist as a potential interfering substance. Higher concentrations of biotin may be found in multivitamins, hair/nail supplements, and workout supplements. If the result does not match clinical observations, repeat testing after patient refrains from the use of supplements for at least 12 hours. Blood (Blood, Venous) 01/04/2024 4:56 AM CRYPTOLOGIC LINGUIST 01/04/2024 8:02 AM CRYPTOLOGIC LINGUIST us Portia Ramos M.D., Ph.D. LAB BLOOD ADD-ON Final Res ult [facility] [address] [place] [address], [place] MK[facility] [place] [address] [place] [address] * US Thoracentesis Right with Imaging Guidance (01/03/2024 5:04 PM CRYPTOLOGIC LINGUIST) Anatomical Region Laterality Modality Chest, Ultrasound RST LOS, U ltrasound ARZ LOS, Procedure FLA LOS, Abdominal FLA LOS, Procedural, Procedural NWWI LOS Right Ultrasound Impressions 01/04/2024 8:03 AM CRYPTOLOGIC LINGUIST Successful ultrasound guided diagnostic and therapeutic right thoracentesis. Narrative 01/04/2024 8:03 AM CRYPTOLOGIC LINGUIST EXAM: US THORACENTESIS RIGHT WITH IMAGING GUIDANCE [...] Patient education provided by the care steam gigger. Ready to learn, no apparent learning barriers [...] Patient education provided by the care steam gigger. Ready to learn, no apparent learningbarriers were identified. Post-procedure care explained; patient expressedunderstanding of the content. IMPRESSION: Successful ultrasound guided diagnostic and therapeutic rightthoracentesis. Octavio Cavazos, Ch.B. IMG US PROCEDURES Final Result * Bacteria / Alix Culture, Blood #1 (01/03/2024 10:53 AM CRYPTOLOGIC LINGUIST) Only the most recent of2 resultswithin the time period is included. Bacteria/Nereida da Culture, Blood No growth after 5 day/s of incubation. 01/08/2024 11:05 AM CRYPTOLOGIC LINGUIST [facility] Blood (Blood, Peripheral Draw) 01/03/2024 10:53 AM CRYPTOLOGIC LINGUIST 01/03/2024 10:58 AM CRYPTOLOGIC LINGUIST Comment:Specimen Source Site : Blood Octavio Cavazos, Ch.B. LAB MICROBIOLOGY - GENERAL ORDERABLES Final Result [facility] [address] [place] [address], [facility] [place] [address] [place] [address] * Lactate for Sepsis with Reflex (01/03/2024 10:52 AM CRYPTOLOGIC LINGUIST) Lactate, B 1.1 0.5 - 2.2 mmol/L 01/03/2024 11:01 AM CRYPTOLOGIC LINGUIST [facility] Blood (Blood, Venous) 01/03/2024 10:52 AM CRYPTOLOGIC LINGUIST 01/03/2024 10:58 AM CRYPTOLOGIC LINGUIST us Octavio Cavazos, Ch.B. LAB BLOOD NON ADD- ON Final Result Performing Organization Address City/[facility]/ZIP Co de Phone Number [facility] [address] [place] [address], [place] [address] * (ABNORMAL) Albumin (01/03/2024 10:51 AM CRYPTOLOGIC LINGUIST) Only the most recent of2 resultswithin the time period is included. Albumin, P 3.0(L) 3.5 - 5.0 g/dL 01/03/2024 1:15 PM CRYPTOLOGIC LINGUIST [facility] Blood (Blood, Venous) 01/03/2024 10:51 AM CRYPTOLOGIC LINGUIST 01/03/2024 1:02 PM CRYPTOLOGIC LINGUIST us Jet Palomares M.D. LAB BLOOD ADD-ON Final Result Performing Organization Address [facility] Co de Phone Number [facility] [address] [place] [address], [place] [address] * pH (01/03/2024 6:42 AM CRYPTOLOGIC LINGUIST) Only the most recent of2 resultswithin the time period is included. pH 7.43 7.35 - 7.45 pH 01/03/2024 7:00 AM CRYPTOLOGIC LINGUIST [facility] Blood 01/03/2024 6:42 AM CRYPTOLOGIC LINGUIST 01/03/2024 6:55 AM CRYPTOLOGIC LINGUIST us Deanna Lewis APRN, C.N.P., D.N.P., M.S.N. LAB H ISTORICAL ORDERS Final Result Performing Organization Address [facility]/ZIP Co de Phone Number [facility] [address] [place] [address], [facility] MKTO [facility] [place] [address] [place] [address] * (ABNORMAL) QuantiFERON-Tb Gold Plus, Blood (01/03/2024 6:42 AM CRYPTOLOGIC LINGUIST) QuantiFERON-TB Gold Plus Result Indetermi parviz(A) Negative 01/07/2024 2:48 PM CRYPTOLOGIC LINGUIST [facility] Comment: Indeterminate due to a low interferon-gamma level in the mitogen (positive control) tube. This may occur due to a low lymphocyte count, reduced lymphocyte activity or inability of the patient's lymphocytes to generate interferon-gamma. The reference range for the 'Mitogen minus Nil Result' is >=0.5 IU/mL. TB1 Ag minus Nil Result 0.00 IU/mL 01/07/2024 2:48 PM CRYPTOLOGIC LINGUIST [facility] TB2 Ag minus Nil Result 0.00 IU/mL 01/07/2024 2:48 PM CRYPTOLOGIC LINGUIST [facility] Mitogen minus Nil Result 0.01 IU/mL 01/07/2024 2:48 PM CRYPTOLOGIC LINGUIST [facility] Nil Result 0.04 IU/mL 01/07/2024 2:48 PM CRYPTOLOGIC LINGUIST [facility] Blood (Blood, Venous) 01/03/2024 6:42 AM CRYPTOLOGIC LINGUIST 01/04/2024 10:57 AM CRYPTOLOGIC LINGUIST Narrative [facility] - 01/07/2024 2:48 PM CRYPTOLOGIC LINGUIST Specimen Information: Specimen ID: [id number] Specimen Type: Blood Specimen Collection Start Date: 01/03/2024 6:42 AM Specimen Received Date: 01/04/2024 10:57 AM Specimen ID: [id number] Specimen Type: Blood Specimen Collection Start Date: 01/03/2024 6:42 AM Specimen Received Date: 01/04/2024 10:57 AM Specimen ID: [id number] Specimen Type: Blood Specimen Collection Start Date: 01/03/2024 6:42 AM Specimen Received Date: 01/04/2024 10:57 AM Specimen ID: [id number] Specimen Type: Blood Specimen Collection Start Date: 01/03/2024 6:42 AM Specimen Received Date: 01/04/2024 10:57 AM us Jet Palomares M.D. LAB MICROBIOLOGY - BLOO D ORDERABLES Final Result [facility] [address] [place] [address], [facility] [place] [employer] [address] [place] [address] * Vitamin D, Immunoassay, Total, Serum (01/03/2024 6:42 AM CRYPTOLOGIC LINGUIST) Pathologist [facility] Vitamin D, Immunoassay, Total, S 23 20 - 80 ng/mL 01/04/2024 8:37 AM CRYPTOLOGIC LINGUIST [facility] Comment: Optimum levels within the healthy population are 20-50, patients with bone disease may benefit from high levels within this range Blood (Blood, Venous) 01/03/2024 6:42 AM CRYPTOLOGIC LINGUIST 01/04/2024 8:02 AM CRYPTOLOGIC LINGUIST Portia Ramos M.D., Ph.D. LAB BLOOD ADD-ON Final Res ult Performing Organization Address [facility] Co de Phone Number [facility] [address] [place] [address], [facility] [place] [address] [place] [address] * HBc Total Ab, Serum (01/03/2024 6:42 AM CRYPTOLOGIC LINGUIST) Pathologist [facility] HBc Total Ab, S Negative Negative 01/04/2024 11:52 AM CRYPTOLOGIC LINGUIST [facility] Blood (Blood, Peripheral Draw) 01/03/2024 6:42 AM CRYPTOLOGIC LINGUIST 01/04/2024 7:28 AM CRYPTOLOGIC LINGUIST us Jet Palomares M.D. LAB MICROBIOLOGY - BLOO D ORDERABLES Final Result [facility] [address] [place] [address] [facility] [address] [place] [address] * HBs Antibody, Serum (01/03/2024 6:42 AM CRYPTOLOGIC LINGUIST) HBs Antibody, S Negative 7:57 AM CRYPTOLOGIC LINGUIST [facility] Comment: Patient is presumed NOT to be immune to infection with HBV. Consumption of high-dose biotin supplement within 12 hours of blood collection for this test can cause false-negative results. ----REFERENCE VALUE---- Unvaccinated: Negative Vaccinated: Positive HBs Antibody, Quantitative, S <3.50 mIU/mL 01/03/2024 7:57 AM CRYPTOLOGIC LINGUIST [facility] Comment: ----REFERENCE VALUE---- <8.50: Negative 8.50-11.49: Indeterminate >=11.50: Positive Blood (Blood, Peripheral Draw) 01/03/2024 6:42 AM CRYPTOLOGIC LINGUIST 01/03/2024 6:55 AM CRYPTOLOGIC LINGUIST Jet Palomares M.D. LAB MICROBIOLOGY - BLOO D ORDERABLES Final Result [facility] [address] [place] [address] * Hepatitis B Surface Antigen (01/03/2024 6:42 AM CRYPTOLOGIC LINGUIST) HBs Antigen, S Nonreactive Nonreactive 01/03/2024 8:07 AM CRYPTOLOGIC LINGUIST [facility] Blood (Blood, Peripheral Draw) 01/03/2024 6:42 AM CRYPTOLOGIC LINGUIST 01/03/2024 6:55 AM CRYPTOLOGIC LINGUIST Jet Palomares M.D. LAB MICROBIOLOGY - BLOO D ORDERABLES Final Result [facility] [address] [place] [address], [place] [address] * (ABNORMAL) Calcium, Ionized (01/03/2024 6:42 AM CRYPTOLOGIC LINGUIST) Only the most recent of2 resultswithin the time period is included. Calcium, Ionized, B 4.31(L) 4.65 - 5.30 mg/dL 01/03/2024 7:00 AM CRYPTOLOGIC LINGUIST [facility] Blood 01/03/2024 6:42 AM CRYPTOLOGIC LINGUIST 01/03/2024 6:55 AM CRYPTOLOGIC LINGUIST us Deanna Lewis APRN, C.N.P., D.N.P., M.S.N. LAB B LOOD NON ADD-ON Final Result Performing Organization Address City/[facility]/ZIP Co de Phone Number [facility] [address] [place] [address], [facility] [place] [address] [place] [address] * (ABNORMAL) Broad Range Bacteria PCR + Sequencing (01/03/2024 6:10 AM CRYPTOLOGIC LINGUIST) Pathologist [facility] Broad Range Bacteria PCR+Sequenci ng This test was developed and its performance characteristics determined by [facility] in a manner consistent with CLIA requirements. This test has not been cleared or approved by the U.S. Food and Drug Administration. (A) 01/12/2024 9:31 AM CRYPTOLOGIC LINGUIST [facility] Broad Range Bacteria PCR+Sequenci ng STREPTOCOCCUS INTERMEDIUS DNA detected (A) 01/12/2024 9:31 AM CRYPTOLOGIC LINGUIST [facility] Comment:Semi-Urgent Result. Semi-Urgent This is a semi-urgent result(AUGUSTE) [facility] Fluid (Pleural Fluid, Right) 01/03/2024 6:10 AM CRYPTOLOGIC LINGUIST 01/04/2024 10:00 AM CRYPTOLOGIC LINGUIST Comment:Specimen Source Site : Fluid Octavio Cavazos, Ch.B. LAB MICROBIOLOGY - GENERAL ORDERABLES Final Result [facility] [address] [place] [address], [place] DTL [facility] [address] [place] [address] * Leukemia/Lymphoma Immunophenotyping by Flow Cytometry (01/03/2024 6:10 AM CRYPTOLOGIC LINGUIST) Pathologist [facility] LCMS Result Performed 01/05/2024 1:37 PM CRYPTOLOGIC LINGUIST [facility] Final Diagnosis: Pleural fluid, flow cytometric immunophenotyp ing: No monotypic B-cell population or increase in blasts identified. Reviewed by: Blank Crisostomo M.D. 01/05/2024 1:37 PM CRYPTOLOGIC LINGUIST [facility] Special Studies: Results: Blasts: Not increased by CD45/side scatter and CD34. B-cells: Absence of ER96-iuawceln B cells. B-cell markers tested: CD19, CD10 and kappa and lambda surface light chains. T-cells/NK-joelle ls: No aberrant phenotype by CD3 and CD16. Quality assessment: Specimen received within validated guidelines. 01/05/2024 1:37 PM CRYPTOLOGIC LINGUIST [facility] Microscopic Description A Hu-Giemsa- stained slide prepared from the flow cytometry specimen is examined. Morphology is suboptimal. 01/05/2024 1:37 PM CRYPTOLOGIC LINGUIST [facility] Comment: ----ADDITIONAL INFORMATION---- This test was developed using an analyte specific reagent. Its performance characteristics were determined by [facility] in a manner consistent with CLIA requirements. This test has not been cleared or approved by the U.S. Food and Drug Administration. Fluid (Pleural Fluid, Right) 01/03/2024 6:10 AM CRYPTOLOGIC LINGUIST 01/04/2024 8:57 AM CRYPTOLOGIC LINGUIST Octavio Cavazos, Ch.B. LAB GENETIC TESTIN G Final Result [facility] [address] [place] [address], [facility] DTL [address] [place] [address] * M tuberculosis Complex PCR (01/03/2024 6:10 AM CRYPTOLOGIC LINGUIST) [facility] MTB Complex PCR, Specimen Source Fluid, Pleural Fluid, Right 01/06/2024 7:45 PM CRYPTOLOGIC LINGUIST D[facility] MTB Complex PCR, Result Negative Not Applicable 01/06/2024 7:45 PM CRYPTOLOGIC LINGUIST [facility] Comment: A mycobacterial culture must always [...] developed and its performance characteristics determined by [facility] in a manner consistent with CLIA requirements. This test has not been cleared or approved by the U.S. Food and Drug Administration. Fluid (Pleural Fluid, Right) 01/03/2024 6:10 AM CRYPTOLOGIC LINGUIST 01/04/2024 10:24 AM CRYPTOLOGIC LINGUIST Octavio Cavazos, Ch.B. LAB MICROBIOLOGY - GENERAL ORDERABLES Final Result [facility] [address] [place] [address], [facility] DTL [address] [facility] [address] [place] [address] * Cholesterol, Body Fluid (01/03/2024 6:10 AM CRYPTOLOGIC LINGUIST) Cholesterol, BF 34 See Comment mg/dL 01/05/2024 8:47 AM CRYPTOLOGIC LINGUIST [facility] Comment: ----ADDITIONAL INFORMATION---- Pleural fluid cholesterol concentrations > 45 to 65 mg/dL are consistent with exudative effusions. Cholesterol concentrations > 200 mg/dL suggest pseudochylous effusions. Peritoneal fluid cholesterol concentrations > 32 to 70 mg/dL suggest a malignant cause of ascites. All other fluids refer to http://[email or web address] for further interpretive information. This test has been modified from the access specialist's instructions. Its performance characteristics were determined by [facility] in a manner consistent with CLIA requirements. This test has not been cleared or approved by the U.S. Food and Drug Administration. Fluid Type Pleural 01/05/2024 8:14 AM CRYPTOLOGIC LINGUIST DTL Fluid (Pleural Fluid, Right) 01/03/2024 6:10 AM CRYPTOLOGIC LINGUIST 01/05/2024 7:49 AM CRYPTOLOGIC LINGUIST Octavio Cavazos, BEliel LAB BODY FLUIDS AN D STOOLS ORDERABLES Final Result [facility] [address] [place] [address], [place] [facility] [address] [place] [address] * [place] INS NON-BLAINE CVC >5YR, [place] US GUIDE VASC ACCESS, LDA ANE CENTRAL LINE DOUBLE LUMEN ADULT, MC ANE CENTRAL LINE GENERIC PERFORMABLE (01/02/2024 3:47 PM CRYPTOLOGIC LINGUIST) Nikki Bentley M.D. - 01/02/2024 3:47 PM CRYPTOLOGIC LINGUIST Nikki Salinas M.D. 01/02/2024 3:50 PM Invasive [...] Image-General Surgery Image Exam (01/02/2024 3:30 PM CRYPTOLOGIC LINGUIST) Narrative [facility] - 01/06/2024 8:53 PM CRYPTOLOGIC LINGUIST This order has been created and auto-finalized to support the import of images acquired without order. The clinical documentation to support these images can be found on the encounter that produced images. us Provider Not In System IMG NON RAD IMAGING PROCE DURES Final Result [facility] NA * US Kidneys Bilateral with Bladder (01/02/2024 10:15 AM CRYPTOLOGIC LINGUIST) Anatomical Region Laterality Modality Abdomen, Renal, Ultrasound R ST LOS, Ultrasound ARZ LOS, Ultrasound FLA LOS Bilateral Ultrasound Impressions 01/02/2024 10:57 AM CRYPTOLOGIC LINGUIST 1. No hydronephrosis. 2. Bilateral simple appearing renal cysts. Narrative 01/02/2024 10:57 AM CRYPTOLOGIC LINGUIST EXAM: US KIDNEYS BILATERAL WITH BLADDER COMPARISON: [...] * CK (Creatine Kinase) (01/02/2024 4:10 AM CRYPTOLOGIC LINGUIST) Creatine Kinase, P 78 39 - 308 U/L 01/02/2024 9:49 AM CRYPTOLOGIC LINGUIST [facility] Blood (Blood, Venous) 01/02/2024 4:10 AM CRYPTOLOGIC LINGUIST 01/02/2024 9:30 AM CRYPTOLOGIC LINGUIST Jet Palomares M.D. LAB BLOOD ADD-ON Final Result [facility] [address] [place] [id number], [facility] [place] [address] [place] [id number] * Lactate, B (01/02/2024 3:41 AM CRYPTOLOGIC LINGUIST) Lactate, B 0.8 0.5 - 2.2 mmol/L 01/02/2024 4:47 AM CRYPTOLOGIC LINGUIST [facility] Blood (Blood, Venous) 01/02/2024 3:41 AM CRYPTOLOGIC LINGUIST 01/02/2024 4:45 AM CRYPTOLOGIC LINGUIST us Deanna Lewis APRN, C.N.P., D.N.P., M.S.N. LAB B LOOD NON ADD-ON Final Result Performing Organization Address [facility] Co de Phone Number [facility] [address] [place] [address], [place] [address] * (ABNORMAL) Osmolality (01/02/2024 3:41 AM CRYPTOLOGIC LINGUIST) Osmolality, S 338(H) 276 - 306 mOsm/kg 01/02/2024 5:40 AM CRYPTOLOGIC LINGUIST [facility] Blood (Blood, Venous) 01/02/2024 3:41 AM CRYPTOLOGIC LINGUIST 01/02/2024 4:05 AM CRYPTOLOGIC LINGUIST Fausto Bey M.D. LAB BLOOD ADD-ON Final Result Performing Organization Address [facility] Co de Phone Number [facility] [address] [place] [address], [place] [address] * (ABNORMAL) Blood Gas with Coox, Venous (01/02/2024 3:41 AM CRYPTOLOGIC LINGUIST) pO2, Venous 49 Not applicable mm Hg 01/02/2024 4:14 AM CRYPTOLOGIC LINGUIST [facility] pCO2, Venous 29(L) 41 - 51 mm Hg 4:14 AM CRYPTOLOGIC LINGUIST [facility] pH, Venous 7.29(L) 7.32 - 7.43 pH 01/02/2024 4:14 AM CRYPTOLOGIC LINGUIST [facility] Base Excess, Venous -12 Not applicable mmol/L 01/02/2024 4:14 AM CRYPTOLOGIC LINGUIST [facility] HCO3, Venous 13 Not applicable mmol/L 01/02/2024 4:14 AM CRYPTOLOGIC LINGUIST [facility] Hemoglobin, Venous 9.6(L) 13.2 - 16.6 g/dL 01/02/2024 4:14 AM CRYPTOLOGIC LINGUIST [facility] O2Hb, Venous 79.4 Not applicable % 01/02/2024 4:14 AM CRYPTOLOGIC LINGUIST [facility] COHb, Venous 0.2 <3.0 % 01/02/2024 4:14 AM CRYPTOLOGIC LINGUIST [facility] MetHb, Venous 1.2 <1.5 % 01/02/2024 4:14 AM CRYPTOLOGIC LINGUIST [facility] CtO2, Venous 10.8 Not Applicable vol % 01/02/2024 4:14 AM CRYPTOLOGIC LINGUIST [facility] Blood (Blood, Venous) 01/02/2024 3:41 AM CRYPTOLOGIC LINGUIST 01/02/2024 4:05 AM CRYPTOLOGIC LINGUIST Fausto Bey M.D. LAB BLOOD NON ADD-ON Final Resu lt Performing Organization Address City/[facility] Co de Phone Number [facility] [address] [place] [address], [facility] [place] [address] * CT chest abdomen pelv wo con-Outside CT Body (01/01/2024 2:25 PM CRYPTOLOGIC LINGUIST) 01/01/2024 2:17 PM CRYPTOLOGIC LINGUIST Narrative IIIL - 01/01/2024 3:57 PM CRYPTOLOGIC LINGUIST This order has been created and auto-finalized [...] CT PROCEDURES Final R esult IIMS NA * CT HEAD/BRAIN WO CON-Outside CT Neuro (01/01/2024 2:20 PM CRYPTOLOGIC LINGUIST) 01/01/2024 2:17 PM CRYPTOLOGIC LINGUIST Narrative IIMS - 01/01/2024 3:56 PM CRYPTOLOGIC LINGUIST This order has been created and auto-finalized [...] Advance Directives For more information, please contact: [phone] * DNR/DNI (Latest Code Status on File) Date Activated Date Inactivated Comments 01/01/2024 9:20 PM 01/11/2024 6:43 PM Question Answer Comments DNR/DNI (Do Not Resuscitate/Do Not Intubate): Orquidea motta-Patient Care Teams Dumper Relationship Specialty Start Date End Date Elsewhere, Pcp PCP - General Internal Medicine 01/04/24
--- OUTSIDE RECORDS SUMMARY | 2024-01-22 10:51 | XMS_ITS ---
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 Name Role Phone Elsewhere, Pcp Primary Care [...] 35 mEq/L from Last 30 Days Procedures Procedure Name Priority Date/Time Associated Diagnosis Comments FL SWALLOW FUNCTION WITH VIDEO AND SPEECH RAD - Routine (most inpatients and all outpatients) 01/11/2024 1:48 PM CLIN NURSE TESTING LOCATION Timed 01/11/2024 11:5 1 AM CLIN NURSE TYPE AND SCREEN Timed 01/11/2024 11:51 AM CLIN NURSE HEMOGLOBIN, B Timed 01/11/2024 11:51 AM CLIN NURSE DX CHEST PORTABLE 1 VIEW RAD - Routine (most inpatients and all outpatients) 01/11/2024 6:54 AM CLIN NURSE PHOSPHORUS (INORGANIC), S Routine 01/11/2024 4:48 AM CLIN NURSE MAGNESIUM, S Routine 01/11/2024 4:48 AM CLIN NURSE BASIC METABOLIC PANEL, S/P Routine 01/11/2024 4:48 AM CLIN NURSE CBC WITH DIFFERENTIAL, B Routine 01/11/2024 4:48 AM CLIN NURSE HEPATIC FUNCTION PANEL, S Routine 01/11/2024 4:48 AM CLIN NURSE DX CHEST PORTABLE 1 VIEW RAD - Routine (most inpatients and all outpatients) 01/10/2024 6:50 AM CLIN NURSE PHOSPHORUS (INORGANIC), S Routine 01/10/2024 6:25 AM CLIN NURSE MAGNESIUM, S Routine 01/10/2024 6:25 AM CLIN NURSE BASIC METABOLIC PANEL, S/P Routine 01/10/2024 6:25 AM CLIN NURSE CBC WITH DIFFERENTIAL, B Routine 01/10/2024 6:25 AM CLIN NURSE HEPATIC FUNCTION PANEL, S Routine 01/10/2024 6:25 AM CLIN NURSE DX CHEST PORTABLE 1 VIEW RAD - Routine (most inpatients and all outpatients) 01/09/2024 6:50 AM CLIN NURSE MORPHOLOGY EVALUATION Routine 01/09/2024 6:42 AM CLIN NURSE MANUAL DIFFERENTIAL, B Routine 01/09/2024 6:42 AM CLIN NURSE PHOSPHORUS (INORGANIC), S Routine 01/09/2024 6:42 AM CLIN NURSE MAGNESIUM, S Routine 01/09/2024 6:42 AM CLIN NURSE BASIC METABOLIC PANEL, S/P Routine 01/09/2024 6:42 AM CLIN NURSE CBC WITH DIFFERENTIAL, B Routine 01/09/2024 6:42 AM CLIN NURSE HEPATIC FUNCTION PANEL, S Routine 01/09/2024 6:[address] CHEST WITHOUT IV CONTRAST RAD - Routine (most inpatients and all outpatients) 01/08/2024 1:11 PM CLIN NURSE DX CHEST 1 VIEW RAD - Routine (most inpatients and all outpatients) 01/08/2024 7:16 AM CLIN NURSE MORPHOLOGY EVALUATION Routine 01/08/2024 4:47 AM CLIN NURSE MANUAL DIFFERENTIAL, B Routine 01/08/2024 4:47 AM CLIN NURSE PHOSPHORUS (INORGANIC), S Routine 01/08/2024 4:47 AM CLIN NURSE MAGNESIUM, S Routine 01/08/2024 4:47 AM CLIN NURSE BASIC METABOLIC PANEL, S/P Routine 01/08/2024 4:47 AM CLIN NURSE CBC WITH DIFFERENTIAL, B Routine 01/08/2024 4:47 AM CLIN NURSE HEPATIC FUNCTION PANEL, S Routine 01/08/2024 4:47 AM CLIN NURSE HEMOGLOBIN, B Timed 01/07/2024 3:50 PM CLIN NURSE DX CHEST 1 VIEW RAD - Routine (most inpatients and all outpatients) 01/07/2024 7:14 AM CLIN NURSE MORPHOLOGY EVALUATION Routine 01/07/2024 5:29 AM CLIN NURSE PHOSPHORUS (INORGANIC), S Routine 01/07/2024 5:29 AM CLIN NURSE MAGNESIUM, S Routine 01/07/2024 5:29 AM CLIN NURSE BASIC METABOLIC PANEL, S/P Routine 01/07/2024 5:29 AM CLIN NURSE CBC WITH DIFFERENTIAL, B Routine 01/07/2024 5:29 AM CLIN NURSE HEPATIC FUNCTION PANEL, S Routine 01/07/2024 5:29 AM CLIN NURSE MISCELLANEOUS SENT OUT LAB TEST Routine 01/06/2024 11:36 AM CLIN NURSE TROPHERYMA WHIPPLEI PCR, B Routine 01/06/2024 11:36 AM CLIN NURSE HC REF INF DIS DNA/PCR/NGS SEQ Routine 01/06/2024 10:59 AM CLIN NURSE DX CHEST 1 VIEW RAD - Routine (most inpatients and all outpatients) 01/06/2024 7:19 AM CLIN NURSE MORPHOLOGY EVALUATION Timed 01/06/2024 5:37 AM CLIN NURSE MANUAL DIFFERENTIAL, B Timed 01/06/2024 5:37 AM CLIN NURSE MAGNESIUM, S Timed 01/06/2024 5:37 AM CLIN NURSE CBC WITH DIFFERENTIAL, B Timed 01/06/2024 5:37 AM CLIN NURSE RENAL FUNCTION PANEL, S Timed 01/06/2024 5:37 AM CLIN NURSE ECG STAT 01/06/2024 5:32 AM CLIN NURSE IR CHEST TUBE PLACEMENT RAD - Routine (most inpatients and all outpatients) 01/05/2024 1:42 PM CLIN NURSE CYTOLOGY NON-TURN DOWN ATTENDANT Routine 01/05/2024 12:5 0 PM CLIN NURSE GLUCOSE, BODY FLUID Timed 01/05/2024 1 2:50 PM CLIN NURSE TRIGLYCERIDES, BF Timed 01/05/2024 12: 50 PM CLIN NURSE PROTEIN, TOTAL, BF Timed 01/05/2024 12 :50 PM CLIN NURSE PH, PLEURAL FLUID Timed 01/05/2024 12: 50 PM CLIN NURSE LACTATE DEHYDROGENASE (LD), BF Timed 01/05/2024 12:50 PM CLIN NURSE CELL COUNT AND DIFFERENTIAL, BF Timed 01/05/2024 12:50 PM CLIN NURSE BACTERIAL CULTURE, ANAEROBIC + SUSC Timed 01/05/2024 12:50 PM CLIN NURSE GRAM STAIN Timed 01/05/2024 12:50 PM CLIN NURSE BACTERIAL CULTURE, AEROBIC + SUSC Timed 01/05/2024 12:50 PM CLIN NURSE MORPHOLOGY EVALUATION Routine 01/05/2024 5:52 AM CLIN NURSE MANUAL DIFFERENTIAL, B Routine 01/05/2024 5:52 AM CLIN NURSE BASIC METABOLIC PANEL, S/P Routine 01/05/2024 5:52 AM CLIN NURSE CBC WITH DIFFERENTIAL, B Routine 01/05/2024 5:52 AM CLIN NURSE PNEUMONIA PANEL, PCR Routine 01/04/2024 7:45 PM CLIN NURSE GRAM STAIN Routine 01/04/2024 7:45 PM CLIN NURSE BACTERIAL CULTURE, AEROBIC + SUSC, RESP Routine 01/04/2024 7:45 PM CLIN NURSE NASAL SCREEN FOR MRSA BY RAPID PCR Routine 01/04/2024 7:45 PM CLIN NURSE NURSING IMAGE EXAM Routine 01/04/2024 7: 40 PM CLIN NURSE (TTE) 2D ECHO DOPPLER COLOR AND CONTRAST Routine 01/04/2024 10:38 AM CLIN NURSE HC URINALYSIS AUTO WO MICRO Routine 01/04/2024 5:56 AM CLIN NURSE PROTEIN/CREATININE RATIO, RANDOM, URINE Routine 01/04/2024 5:56 AM CLIN NURSE URINALYSIS WITH MICROSCOPIC IF INDICATED, U Routine 01/04/2024 5:56 AM CLIN NURSE SODIUM, RANDOM, U Routine 01/04/2024 5:5 6 AM CLIN NURSE NT-PRO B-TYPE NATRIURETIC PEPTIDE (BNP), S Routine 01/04/2024 4:56 AM CLIN NURSE PARATHYROID HORMONE (PTH), S Routine 01/04/2024 4:56 AM CLIN NURSE IRON AND TOT IRON-BINDING CAPACITY, S/P Routine 01/04/2024 4:56 AM CLIN NURSE FERRITIN, S Routine 01/04/2024 4:56 AM CLIN NURSE BASIC METABOLIC PANEL, S/P Routine 01/04/2024 4:56 AM CLIN NURSE CBC WITH DIFFERENTIAL, B Routine 01/04/2024 4:56 AM CLIN NURSE CYTOLOGY NON-TURN DOWN ATTENDANT Timed 01/03/2024 5:09 PM CLIN NURSE US THORACENTESIS RIGHT WITH IMAGING GUIDANCE RAD - Routine (most inpatients and all outpatients) 01/03/2024 5:04 PM CLIN NURSE BASIC METABOLIC PANEL, S/P Timed 01/03/2024 1:56 PM CLIN NURSE HEMODIALYSIS Routine 01/03/2024 11:28 AM CLIN NURSE BACTERIA / ALIX CULTURE, BLOOD Routine 01/03/2024 10:53 AM CLIN NURSE LACTATE FOR SEPSIS WITH REFLEX Routine 01/03/2024 10:52 AM CLIN NURSE BACTERIA / ALIX CULTURE, BLOOD Routine 01/03/2024 10:52 AM CLIN NURSE ALBUMIN, S/P Routine 01/03/2024 10:51 AM CLIN NURSE HEMODIALYSIS Routine 01/03/2024 8:16 AM CLIN NURSE VITAMIN D, IMMUNOASSAY, TOTAL, S Routine 01/03/2024 6:42 AM CLIN NURSE NT-PRO B-TYPE NATRIURETIC PEPTIDE (BNP), S Routine 01/03/2024 6:42 AM CLIN NURSE CALCIUM, IONIZED, S/B Routine 01/03/2024 6:42 AM CLIN NURSE PH BLOOD GAS Routine 01/03/2024 6:42 AM CLIN NURSE CBC WITH DIFFERENTIAL, B Routine 01/03/2024 6:42 AM CLIN NURSE BASIC METABOLIC PANEL, S/P Routine 01/03/2024 6:42 AM CLIN NURSE QUANTIFERON-TB GOLD PLUS, B Routine 01/03/2024 6:42 AM CLIN NURSE HBC TOTAL AB, SERUM Routine 01/03/2024 6 :42 AM CLIN NURSE HBS ANTIBODY, SERUM Routine 01/03/2024 6 :42 AM CLIN NURSE HEPATITIS B SURFACE ANTIGEN Routine 01/03/2024 6:42 AM CLIN NURSE LEUKEMIA/LYMPHOMA, PHENOTYPE, V Timed 01/03/2024 6:10 AM CLIN NURSE CHOLESTEROL, BF Timed 01/03/2024 6:10 AM CLIN NURSE GLUCOSE, BODY FLUID Timed 01/03/2024 6 :10 AM CLIN NURSE CELL COUNT AND DIFFERENTIAL, BF Timed 01/03/2024 6:10 AM CLIN NURSE PROTEIN, TOTAL, BF Timed 01/03/2024 6: 10 AM CLIN NURSE LACTATE DEHYDROGENASE (LD), BF Timed 01/03/2024 6:10 AM CLIN NURSE M TUBERCULOSIS COMPLEX PCR, V Timed 01/03/2024 6:10 AM CLIN NURSE BROAD RANGE BACTERIA PCR AND SEQUENCING Timed 01/03/2024 6:10 AM CLIN NURSE BACTERIAL CULTURE, ANAEROBIC + SUSC Timed 01/03/2024 6:10 AM CLIN NURSE BACTERIAL CULTURE, AEROBIC + SUSC Timed 01/03/2024 6:10 AM CLIN NURSE GRAM STAIN Timed 01/03/2024 6:10 AM CLIN NURSE DX CHEST PORTABLE 1 VIEW RAD - Semiurgent (Fast; most ED patients; some inpatients) 01/02/2024 3:59 PM CLIN NURSE MC ANE CENTRAL LINE GENERIC PERFORMABLE Routine 01/02/2024 3:47 PM CLIN NURSE Failure Renal Acute (Acute Kidney Injury) (HCC) LDA ANE CENTRAL LINE DOUBLE LUMEN ADULT Routine 01/02/2024 3:47 PM CLIN NURSE Failure Renal Acute (Acute Kidney Injury) (HCC) NV US GUIDE VASC ACCESS Routine 01/02/2024 3:47 PM CLIN NURSE Failure Renal Acute (Acute Kidney Injury) (HCC) NV INS NON-BLAINE CVC >5YR Routine 01/02/2024 3:47 PM CLIN NURSE Failure Renal Acute (Acute Kidney Injury) (HCC) GENERAL SURGERY IMAGE EXAM Routine 01/02/2024 3:30 PM CLIN NURSE HEMODIALYSIS Routine 01/02/2024 2:44 PM CLIN NURSE MAGNESIUM, S Routine 01/02/2024 11:32 AM CLIN NURSE BASIC METABOLIC PANEL, S/P Routine 01/02/2024 11:32 AM CLIN NURSE US KIDNEYS BILATERAL WITH BLADDER RAD - Routine (most inpatients and all outpatients) 01/02/2024 10:15 AM CLIN NURSE DX CHEST PORTABLE 1 VIEW RAD - Semiurgent (Fast; most ED patients; some inpatients) 01/02/2024 4:24 AM CLIN NURSE CREATINE KINASE (CK), S Routine 01/02/2024 4:10 AM CLIN NURSE ALBUMIN, S/P Routine 01/02/2024 4:10 AM CLIN NURSE CALCIUM, IONIZED, S/B Routine 01/02/2024 4:10 AM CLIN NURSE PH BLOOD GAS Routine 01/02/2024 4:10 AM CLIN NURSE PHOSPHORUS (INORGANIC), S Routine 01/02/2024 3:41 AM CLIN NURSE MAGNESIUM, S Routine 01/02/2024 3:41 AM CLIN NURSE LACTATE, B STAT 01/02/2024 3:41 AM CLIN NURSE NT-PRO B-TYPE NATRIURETIC PEPTIDE (BNP), S Routine 01/02/2024 3:41 AM CLIN NURSE VENOUS BLOOD GAS W/COOX, B Routine 01/02/2024 3:41 AM CLIN NURSE OSMOLALITY, S Routine 01/02/2024 3:41 AM CLIN NURSE CBC WITH DIFFERENTIAL, B Routine 01/02/2024 3:41 AM CLIN NURSE BASIC METABOLIC PANEL, S/P Routine 01/02/2024 3:41 AM CLIN NURSE ECG Routine 01/02/2024 12:39 AM CLIN NURSE OUTSIDE CT BODY Routine 01/01/2024 2:25 PM CLIN NURSE OUTSIDE CT NEURO Routine 01/01/2024 2:20 PM CLIN NURSE from Last 3 Months Allergies No known active allergies Medications ferrous sulfate 325 mg (65 mg iron) DR tablet Take 1 tablet (65 mg of iron total) by mouth daily. 90 tablet 3 3 Active Additional Information Patient taking differently: 130 [...] Med Name: Prostate Complete Zinc, Selenium, [place], Lycopene, Turmeric, Resveratrol, Pomegranate Active gabapentin (Neurontin) [...] day for 15 days. 30 tablet 4 Active omeprazole (PriLOSEC) [address] capsule Take 20 mg by mouth daily as needed. 3 024 Discontin ued(Thera py completed ) montelukast (Singulair) 10 mg tablet Take 1 tablet by mouth at bedtime. 4 Discontin ued(Thera py completed ) losartan-hydroC HLOROthiazide (Hyzaar) 100-25 mg per tablet Take 1 tablet by mouth daily. 4 Discontin ued(Stop Taking at Discharge ) amoxicillin-pot clavulanate (Augmentin) 875-125 mg per tablet Take 1 tablet by mouth 2 (two) times a day for 15 days. 30 tablet 4 Discontin ued(Stop Taking at Discharge ) Active [...] Smokeless Tobacco: Never Tobacco Cessation:Counseling Given: No [facility] Utilities Answer Date Recorded In the past 12 months [facility] [employer], gas, oil, or water [employer] threatened to shut off services in your [...] Date Recorded Dental: Regular Dentist Unknown 12/25/19 Housing Stability Answer Date Recorded What is your living situation today? I have a [facility] place to live 01/10/2024 Sex and Gender Information Value Date Recorded Sex Assigned at Not on file Legal Sex Male 3:31 PM CLIN NURSE Gender Identity Not on file Sexual Orientation Not on file Last Filed Vital Signs Vital Sign Reading Time Taken Comments Blood Pressure 111/62 01/11/2024 2:37 PM CLIN NURSE Pulse 122 01/11/2024 2:37 PM CLIN NURSE Temperature 36.5 C (97.7 F) 01/11/2024 2:37 PM CLIN NURSE Respiratory Rate 26 01/11/2024 2:37 PM CLIN NURSE Oxygen Saturation 97% 01/11/2024 2:37 PM CLIN NURSE Inhaled Oxygen Concentration - - Weight 39.9 kg (87 lb 15.4 oz) 01/11/2024 2:12 A M CLIN NURSE Height 170.2 cm (5' 7) 01/01/2024 9:10 PM CLIN NURSE Body Mass Index 13.78 01/01/2024 9:10 PM CLIN NURSE Results * FL Swallow Function with Video and Speech or OT (01/11/2024 1:48 PM CLIN NURSE) Anatomical Region Laterality Modality Gastro Intestinal, Abdominal RST LOS, Abdominal ARZ LOS, Abdominal FLA LOS N/A Digital Radiography Impressions 01/11/2024 4:00 PM CLIN NURSE Normal modified barium swallow study Narrative 01/11/2024 4:00 PM CLIN NURSE EXAM: FL SWALLOW FUNCTION WITH VIDEO AND [...] Result * Testing Location (01/11/2024 11:51 AM CLIN NURSE) Testing Location [facility] DEFAULT 01/11/2024 11:57 AM CLIN NURSE [facility] Blood 01/11/2024 11:5 1 AM CLIN NURSE 01/11/2024 11:57 AM CLIN NURSE us Jeremías Fernandez M.D. LAB BLOOD BANK TEST ORDERABL ES Final Result [facility] [address] [place] [address] * (ABNORMAL) Hemoglobin (01/11/2024 11:51 AM CLIN NURSE) Only the most recent of2 resultswithin the time period is included. Pathologist [facility] [place] Hemoglobin 8.1(L) 13.2 - 16.6 g/dL 01/11/2024 12:00 PM CLIN NURSE [facility] Blood (Blood, Venous) 01/11/2024 11:51 AM CLIN NURSE 01/11/2024 11:57 AM CLIN NURSE us Jeremías Fernandez M.D. LAB BLOOD ADD-ON Final Resul t [facility] [address] [place], [place] [address] [address] * Type and Screen (with Reflex Antibody ID) (01/11/2024 11:51 AM CLIN NURSE) ABO Group B 01/11/2024 12:58 PM CLIN NURSE [facility] Rh Type NEG 01/11/2024 12:58 PM CLIN NURSE [facility] Antibody Screen NEG 12:58 PM CLIN NURSE [facility] Type & Screen Expiration 01/14/2024 23:59 01/11/2024 12:58 PM CLIN NURSE [facility] ELXM Eligible Y 01/11/2024 12:58 PM CLIN NURSE [facility] Blood (Blood, Venous) 01/11/2024 11:51 AM CLIN NURSE 01/11/2024 11:57 AM CLIN NURSE us Jeremías Fernandez M.D. LAB BLOOD BANK TEST ORDERABL ES Final Result [facility] [address] [place] [address] * DX Chest Portable 1 View (01/11/2024 6:54 AM CLIN NURSE) Only the most recent of5 resultswithin the time period is included. Anatomical Region Laterality Modality Chest, Thoracic RST LOS, Tho racic ARZ LOS, Thoracic FLA LOS N/A Digital Radiography Impressions 01/11/2024 7:51 AM CLIN NURSE No change since 01/10/2024. Small right pleural effusion with associated atelectasis. The left lung remains clear. No pneumothorax. Normal heart size. Aortic calcifications. Narrative 01/11/2024 7:51 AM CLIN NURSE EXAM: DX CHEST PORTABLE 1 VIEW Procedure Note Yovany Shrestha M.D. - 01/11/2024 EXAM: DX CHEST PORTABLE 1 VIEW IMPRESSION: No change since 01/10/2024. Small right pleural effusion with associatedatelectasis. The left lung remains clear. No pneumothorax. Normal heartsize. Aortic calcifications. us Fidencio Oliva M.D. IMG DIAGNOSTIC IMAGING PROCED URES Final Result * (ABNORMAL) Hepatic Function Panel (01/11/2024 4:48 AM CLIN NURSE) Only the most recent of5 resultswithin the time period is included. Bilirubin, Total, P 0.2 0.0 - 1.2 mg/dL 01/11/2024 5:37 AM CLIN NURSE MKTO Bilirubin, Direct, P 0.1 0.0 - 0.3 mg/dL 01/11/2024 5:37 AM CLIN NURSE [facility] Aspartate Aminotransferase (AST), P 23 8 - 48 U/L 01/11/2024 5:37 AM CLIN NURSE [facility] Alanine Aminotransferase (ALT), P 11 7 - 55 U/L 01/11/2024 5:37 AM CLIN NURSE [facility] Alkaline Phosphatase, P 83 40 - 129 U/L 01/11/2024 5:37 AM CLIN NURSE [facility] Albumin, P 2.4(L) 3.5 - 5.0 g/dL 01/11/2024 5:37 AM CLIN NURSE [facility] Protein, Total, P 5.2(L) 6.3 - 7.9 g/dL 01/11/2024 5:37 AM CLIN NURSE [facility] Blood (Blood, Venous) 01/11/2024 4:48 AM CLIN NURSE 01/11/2024 5:11 AM CLIN NURSE us Jeremías Fernandez M.D. LAB BLOOD ADD-ON Final Resul t [facility] [address] [place] [address], [facility] MKTO [facility] [place] [address] * (ABNORMAL) CBC with Differential, Blood (01/11/2024 4:48 AM CLIN NURSE) Only the most recent of10 resultswithin the time period is included. Hemoglobin 7.5(L) 13.2 - 16.6 g/dL 01/11/2024 5:14 AM CLIN NURSE [facility] Hematocrit 24.9(L) 38.3 - 48.6 % 01/11/2024 5:14 AM CLIN NURSE [facility] Erythrocytes 2.52(L) 4.35 - 5.65 x10(12)/L 01/11/2024 5:14 AM CLIN NURSE [facility] MCV 98.8(H) 78.2 - 97.9 fL 01/11/2024 5:14 AM CLIN NURSE [facility] RBC Distrib Width 14.5 11.8 - 14.5 % 01/11/2024 5:14 AM CLIN NURSE [facility] Platelet Count 243 135 - 317 x10(9)/L 01/11/2024 5:14 AM CLIN NURSE [facility] Leukocytes 8.8 3.4 - 9.6 x10(9)/L 01/11/2024 5:14 AM CLIN NURSE [facility] Neutrophils 6.61(H) 1.56 - 6.45 x10(9)/L 01/11/2024 5:14 AM CLIN NURSE [facility] Lymphocytes 0.97 0.95 - 3.07 x10(9)/L 01/11/2024 5:14 AM CLIN NURSE [facility] Monocytes 0.98(H) 0.26 - 0.81 x10(9)/L 01/11/2024 5:14 AM CLIN NURSE [facility] Eosinophils 0.15 0.03 - 0.48 x10(9)/L 01/11/2024 5:14 AM CLIN NURSE [facility] Basophils 0.07 0.01 - 0.08 x10(9)/L 01/11/2024 5:14 AM CLIN NURSE [facility] Blood (Blood, Venous) 01/11/2024 4:48 AM CLIN NURSE 01/11/2024 5:11 AM CLIN NURSE us Jeremías Fernandez M.D. LAB BLOOD ADD-ON Final Resul t [facility] [place] [address], [facility] MKTO [facility] [place] [address] * Phosphorus Inorganic (01/11/2024 4:48 AM CLIN NURSE) Only the most recent of6 resultswithin the time period is included. Phosphorus (Inorganic), P 3.1 2.5 - 4.5 mg/dL 01/11/2024 5:37 AM CLIN NURSE [facility] Blood (Blood, Venous) 01/11/2024 4:48 AM CLIN NURSE 01/11/2024 5:11 AM CLIN NURSE us Jeremías Fernandez M.D. LAB BLOOD ADD-ON Final Resul t Performing Organization Address City/[facility] Co de Phone Number [facility] [address] [place] [address] * Magnesium (01/11/2024 4:48 AM CLIN NURSE) Only the most recent of8 resultswithin the time period is included. Magnesium, P 1.7 1.7 - 2.3 mg/dL 01/11/2024 5:37 AM CLIN NURSE [facility] Blood (Blood, Venous) 01/11/2024 4:48 AM CLIN NURSE 01/11/2024 5:11 AM CLIN NURSE us Jeremías Fernandez M.D. LAB BLOOD ADD-ON Final Resul t Performing Organization Address [facility] Co de Phone Number [facility] [address] [place] [address], [place] [address] * (ABNORMAL) Basic Metabolic Panel (01/11/2024 4:48 AM CLIN NURSE) Only the most recent of11 resultswithin the time period is included. Potassium, P 4.3 3.6 - 5.2 mmol/L 01/11/2024 5:37 AM CLIN NURSE MKTO Sodium, P 143 135 - 145 mmol/L 01/11/2024 5:37 AM CLIN NURSE [facility] Chloride, P 110(H) 98 - 107 mmol/L 01/11/2024 5:37 AM CLIN NURSE [facility] Bicarbonate, P 24 22 - 29 mmol/L 01/11/2024 5:37 AM CLIN NURSE [facility] Anion Gap, P 9 7 - 15 01/11/2024 5:37 AM CLIN NURSE [facility] BUN (Blood Urea Nitrogen), P 33(H) 8 - 24 mg/dL 01/11/2024 5:37 AM CLIN NURSE [facility] Creatinine 1.74(H) 0.74 - 1.35 mg/dL 01/11/2024 5:37 AM CLIN NURSE [facility] Estimated GFR (eGFR) 38(L) >=60 mL/min/BSA 01/11/2024 5:37 AM CLIN NURSE MKTO Comment: Estimated GFR calculated using the 2020 CKD_EPI creatinine equation. Calcium, Total, P 7.8(L) 8.8 - 10.2 mg/dL 01/11/2024 5:37 AM CLIN NURSE [facility] Glucose, P 92 70 - 140 mg/dL 01/11/2024 5:37 AM CLIN NURSE [facility] Blood (Blood, Venous) 01/11/2024 4:48 AM CLIN NURSE 01/11/2024 5:11 AM CLIN NURSE us Jeremías Fernandez M.D. LAB BLOOD ADD-ON Final Resul t [facility] [address] [place] [address], [facility] MK[facility] [place] [address] * (ABNORMAL) Morphology Evaluation (01/09/2024 6:42 AM CLIN NURSE) Only the most recent of5 resultswithin the time period is included. RBC Morphology See Specific Findings 01/09/2024 8:09 AM CLIN NURSE MKTO PLT Morphology Normal 01/09/2024 8:09 AM CLIN NURSE MKTO PLT Estimate Adequate Adequate 01/09/2024 8:09 AM CLIN NURSE MKTO Anisocytosis Slight(A) 01/09/2024 8:09 AM CLIN NURSE MKTO Basophilic Stippling Slight(A) 01/09/2024 8:09 AM CLIN NURSE MKTO Elliptocytes Slight(A) Not Seen 01/09/2024 8:09 AM CLIN NURSE MKTO Poikilocytosis Slight(A) Not Seen 01/09/2024 8:09 AM CLIN NURSE MKTO Blood 01/09/2024 6:42 AM CLIN NURSE 01/09/2024 7:05 AM CLIN NURSE Jeremías Fernandez M.D. LAB BLOOD ADD-ON Final Resul t Performing Organization Address [facility] Co de Phone Number [facility] [address] [place] [address], [place] [address] * (ABNORMAL) Manual Differential, Blood (01/09/2024 6:42 AM CLIN NURSE) Only the most recent of4 resultswithin the time period is included. Segmented Neutrophils 87(H) 50 - 75 % 01/09/2024 8:09 AM CLIN NURSE MKTO Lymphocytes % 8(L) 18 - 42 % 01/09/2024 8:09 AM CLIN NURSE MKTO Monocytes 1(L) 2 - 11 % 01/09/2024 8:09 AM CLIN NURSE MKTO Eosinophils 1 1 - 3 % 01/09/2024 8:09 AM CLIN NURSE MKTO Metamyelocytes 1(H) <1 % 01/09/2024 8:09 AM CLIN NURSE MKTO Myelocytes 2(H) <0.5 % 01/09/2024 8:09 AM CLIN NURSE MKTO Manual Absolute Neutrophil Count 10.27(H) 1.56 - 6.45 x10(9)/L 01/09/2024 8:09 AM CLIN NURSE MKTO Comment: ----ADDITIONAL INFORMATION---- The manual absolute neutrophil count is derived from a manual differential count and therefore is not exactly comparable to the automated absolute neutrophil count. Blood 01/09/2024 6:42 AM CLIN NURSE 01/09/2024 7:05 AM CLIN NURSE Jeremías Fernandez M.D. LAB BLOOD ADD-ON Final Resul t Performing Organization Address City/[facility]/ZIP Co de Phone Number [facility] [address] [place] [address], [place] [address] * CT Chest without IV Contrast (01/08/2024 1:11 PM CLIN NURSE) Anatomical Region Laterality Modality Chest, Thoracic RST LOS, Tho racic ARZ LOS, Thoracic FLA LOS N/A Computed Tomography Impressions 01/08/2024 2:48 PM CLIN NURSE 1. Loculated right pleural collection with adjacent consolidation or atelectasis in the right lower lobe. 2. Right chest tube pigtail is positioned at the interface of the pleural space with the adjacent chest wall. Correlation with chest tube function recommended. 3. No fluid collection within the chest wall. Small right chest wall emphysema. Narrative 01/08/2024 2:48 PM CLIN NURSE EXAM: CT CHEST WITHOUT IV CONTRAST COMPARISON: [...] chest wall. Small right chest wallemphysema. Fidencio TORRES CT PROCEDURES Final Resul t * DX Chest 1 View (01/08/2024 7:16 AM CLIN NURSE) Only the most recent of3 resultswithin the time period is included. Anatomical Region Laterality Modality Chest, Thoracic RST LOS, Tho racic ARZ LOS, Thoracic FLA LOS N/A Digital Radiography Impressions 01/08/2024 7:44 AM CLIN NURSE Interval retraction of the right pleural catheter. The pigtail projects over the lateral chest wall soft tissues and requires correlation with positioning and catheter output. Persisting right pleural effusion/pleural thickening and right basilar airspace opacity. Narrative 01/08/2024 7:44 AM CLIN NURSE EXAM: DX CHEST 1 VIEW COMPARISON: January [...] Tropheryma whipplei PCR, Blood (01/06/2024 11:36 AM CLIN NURSE) Specimen Source BLOOD 12:26 PM CLIN NURSE DTL Tropheryma whipplei PCR, B, Result Negative Not Applicable 01/08/2024 12:26 PM CLIN NURSE DTL Comment: ----ADDITIONAL INFORMATION---- This test was developed and its performance characteristics determined by [facility] in a manner consistent with CLIA requirements. This test has not been cleared or approved by the U.S. Food and Drug Administration. Blood (Blood, Venous) 01/06/2024 11:36 AM CLIN NURSE 01/07/2024 8:06 AM CLIN NURSE us Sarah Rose M.D. LAB MICROBIOLOG Y - BLOOD ORDERABLES Final Result Performing Organization Address City/[facility]/ZIP Co de Phone Number [facility] [address] [place] [address], [place] [address] [facility] [address] [place] [address] * [id number] [facility] Test for Pathogen Detection - Miscellaneous Test (01/06/2024 11:36 AM CLIN NURSE) Test Name [facility] Test for Pathogen Detection 01/06/2024 11:49 AM CLIN NURSE MKTO Result Specimen sent out; results to follow DEFAULT 01/06/2024 11:49 AM CLIN NURSE MKTO Blood (Blood, Venous) 01/06/2024 11:36 AM CLIN NURSE 01/06/2024 11:49 AM CLIN NURSE us Sarah Rose M.D. LAB MISC ORDERA BLES Final Result Performing Organization Address City/[facility]/ZIP Co de Phone Number [facility] [address] [place] [address], [facility] MKTO [facility] [place] [address] [place] [address] * Misc [facility] - Sent Out Lab (01/06/2024 10:59 AM CLIN NURSE) Test Name Karius Test for Pathogen Detection 01/06/2024 11:49 AM CLIN NURSE [place]DNEY Result SEE COMMENT 01/11/2024 9:44 AM CLIN NURSE CYDNEY Comment: For final report, select Lab-Send Out Lab Results hyperlink below. 01/06/2024 10:5 9 AM CLIN NURSE 01/07/2024 8:53 AM CLIN NURSE us Sarah Rose M.D. LAB [facility] NUNU ARMSTRONG Final Result [facility] [address] [place] [id number], [facility] CYDNEY [facility] [address] [place] [phone] * (ABNORMAL) Renal Function Panel (01/06/2024 5:37 AM CLIN NURSE) Potassium, P 3.3(L) 3.6 - 5.2 mmol/L 01/06/2024 6:11 AM CLIN NURSE MKTO Sodium, P 142 135 - 145 mmol/L 01/06/2024 6:11 AM CLIN NURSE MKTO Chloride, P 104 98 - 107 mmol/L 01/06/2024 6:11 AM CLIN NURSE MKTO Bicarbonate, P 25 22 - 29 mmol/L 01/06/2024 6:11 AM CLIN NURSE MKTO Anion Gap, P 13 7 - 15 01/06/2024 6:11 AM CLIN NURSE MKTO BUN (Blood Urea Nitrogen), P 37(H) 8 - 24 mg/dL 01/06/2024 6:11 AM CLIN NURSE MKTO Creatinine 1.91(H) 0.74 - 1.35 mg/dL 01/06/2024 6:11 AM CLIN NURSE MKTO Estimated GFR (eGFR) 34(L) >=60 mL/min/BSA 01/06/2024 6:11 AM CLIN NURSE MKTO Comment: Estimated GFR calculated using the 2020 CKD_EPI creatinine equation. Calcium, Total, P 8.4(L) 8.8 - 10.2 mg/dL 01/06/2024 6:11 AM CLIN NURSE MKTO Glucose, P 92 70 - 140 mg/dL 01/06/2024 6:11 AM CLIN NURSE MKTO Albumin, P 2.7(L) 3.5 - 5.0 g/dL 01/06/2024 6:11 AM CLIN NURSE MKTO Phosphorus (Inorganic), P 2.7 2.5 - 4.5 mg/dL 01/06/2024 6:11 AM CLIN NURSE MKTO Blood (Blood, Venous) 01/06/2024 5:37 AM CLIN NURSE 01/06/2024 5:47 AM CLIN NURSE Vidhya Tovar P.A.-C. LAB BLOOD ADD-ON Final Resu lt [facility] [address] [place] [address], [facility] MKTO [facility] [place] [address] [place] [address] * ECG 12 Lead (01/06/2024 5:32 AM CLIN NURSE) Only the most recent of2 resultswithin the time period is included. Ventricular Rate ECG/Min 98 BPM MUSE NV Interval 164 ms MUSE QRSD Interval 128 ms MUSE QT Interval 398 ms MUSE QTC Interval 508 ms MUSE P Yuma 52 degrees MUSE R Yuma -72 degrees MUSE T Wave [place] 53 degrees MUSE 01/06/2024 5:32 AM CLIN NURSE 01/06/2024 5:40 AM CLIN NURSE Impressions MUSE - 01/06/2024 5:40 AM CLIN NURSE Normal sinus rhythm Right bundle branch block [...] IR Chest Tube Placement (01/05/2024 1:42 PM CLIN NURSE) Anatomical Region Laterality Modality Chest, Vascular Intervention al RST LOS, Vascular Interventional ARZ LOS, Vascular Interventional FLA LOS N/A X-Ray Angiography Impressions 01/05/2024 2:17 PM CLIN NURSE 1. Right chest tube placement. Narrative 01/05/2024 2:17 PM CLIN NURSE EXAM: IR CHEST TUBE PLACEMENT HISTORY: R [...] medications. Patient education provided by a care produce service team member. Patient was ready to learn with no apparent learning barriers were identified. Post-procedure care explained; patient expressed understanding of the content. PROCEDURE DETAILS: Sedation: None. Local anesthesia was achieved with lidocaine. Sedation time: None Estimated Blood Loss: Less than 10 mL. TECHNIQUE: Imaging guidance for drain insertion: Ultrasound and fluoroscopy with permanent image storage Access side: Right Catheter: 12 Martiniquais multipurpose pigtail drain Technique: Image guidance was used to localize the collection. A 5 Martiniquais Yueh needle catheter was used to access the collection under real time image guidance, and images were saved to PACS. Aspiration yielded purulent fluid. A guidewire was inserted, and the tract was dilated to accommodate a 12 Martiniquais pigtail drain. The catheter was secured with [...] medications. Patient education provided by a care produce service team member. Patient was ready to learn withno apparent learning barriers were identified. Post-procedure careexplained; patient expressed understanding of the content. PROCEDURE DETAILS: Sedation: None. Local anesthesia was achieved with lidocaine. Sedation time: None Estimated Blood Loss: Less than 10 mL. TECHNIQUE: Imaging guidance for drain insertion: Ultrasound and fluoroscopy withpermanent image storage Access side: Right Catheter: 12 Martiniquais multipurpose pigtail drain Technique: Image guidance was used to localize the collection. A 5 FrenchYueh needle catheter was used to access the collection under real timeimage guidance, and images were saved to PACS. Aspiration yielded purulentfluid. A guidewire was inserted, and the tract was dilated to accommodate a 12 Martiniquais pigtail drain. Thecatheter was secured with 2-0 Ethilon suture. The catheter was connectedto Pleur-evac Intraprocedural or immediate post-procedural complications: None FINDINGS: Catheter tip location: Final image was demonstrates the catheter tip to belocated in the right pleural space Additional observations: N/A PLAN: Follow-up with pulmonology. IMPRESSION: 1. Right chest tube placement. Fidencio TORRES IR PROCEDURES Final Resul t * Cytology Non-TURN DOWN ATTENDANT (01/05/2024 12:50 PM CLIN NURSE) Only the most recent of2 resultswithin the time period is included. 01/07/2024 3:19 PM CLIN NURSE HKCY Disclaimer This test has been modified from the strategy director's instructions. Its performance characteristics were determined by [facility] in a manner consistent with CLIA requirements. This test has not been cleared or approved by the U.S. Food and Drug Administration. 01/07/2024 3:19 PM CLIN NURSE HKCY Report electronically signed by LOLY Schwartz. Ch.B. I verify that I have examined all relevant slides/materials for the specimen(s) and rendered or confirmed the diagnosis. 01/07/2024 3:19 PM CLIN NURSE HKCY Gross Description 50 ml of cloudy hubbard fluid received. Specimen fixed at 2:20 pm on 01-05-2024. 2 slides and cell block prepared. 01/07/2024 3:19 PM CLIN NURSE HKCY Source A. Pleural, fluid 024 3:19 PM CLIN NURSE HKCY Interpretation A. Pleural, fluid (smears/cell block): Negative for malignancy. Acute inflammation. COMMENT Immunohistochemica l stains with appropriate reactive controls was performed on separate slides on cell block. CK7, WT1, calretinin, TTF1, Napsin A, p40, CK20, NKX3.1 and CDX2: Negative Controls reviewed, results acceptable. 01/07/2024 3:19 PM CLIN NURSE HKCY Fluid 01/05/2024 12:5 0 PM CLIN NURSE 01/06/2024 7:16 AM CLIN NURSE Fidencio Oliva M.D. LAB SURG PATH ORDERABLES Sury l Result Performing Organization Address [facility]/State/[facility] Co de Phone Number [facility] [address] [place] [address], [facility] HKCY [address] [address] * Protein, Total, Body Fluid (01/05/2024 12:50 PM CLIN NURSE) Only the most recent of2 resultswithin the time period is included. Protein, Total, BF 2.6 See Comment g/dL 01/06/2024 11:13 AM CLIN NURSE DTL Comment: ----ADDITIONAL INFORMATION---- A pleural fluid [...] clinical findings. All other fluids refer to www.[employer].com for further interpretive information. This test has been modified from the strategy director's instructions. Its performance characteristics were determined by [facility] in a manner consistent with CLIA requirements. This test has not been cleared or approved by the U.S. Food and Drug Administration. Fluid Type, Protein, Total PLEURAL 01/06/2024 10:14 AM CLIN NURSE DTL Fluid (Pleural Fluid) 01/05/2024 12:50 PM CLIN NURSE 01/06/2024 10:01 AM CLIN NURSE us Fidencio Oliva M.D. LAB BODY FLUIDS AND STOOLS OR DERABLES Final Result [facility] [address] [place] [address], [facility] [place] [address] * (ABNORMAL) Bacterial Culture, Aerobic + Susceptibility (01/05/2024 12:50 PM CLIN NURSE) Only the most recent of2 resultswithin the time period is included. Bacterial Culture, Aerobic + Susc STREPTOCOCCUS ANGINOSUS GROUP [place] (A) 01/09/2024 7:56 AM CLIN NURSE MKTO Fluid (Pleural Fluid) 01/05/2024 12:50 PM CLIN NURSE 01/05/2024 1:47 PM CLIN NURSE Comment:Specimen Source Site : Fluid Narrative Organism [...] MICROBIOLOGY - GENERAL OR DERABLES Final Result [facility] [address] [place] [address], [facility] MKTO [facility] [place] [address] * Cell Count and Differential, Body Fluid (01/05/2024 12:50 PM CLIN NURSE) Only the most recent of2 resultswithin the time period is included. Fluid Type Pleural/Thor acentesis 01/05/2024 2:19 PM CLIN NURSE MKTO Gross Appearance Purulent 01/05/20 24 2:40 PM CLIN NURSE MKTO Total Nucleated Cells [id number] /mcL 01/05/2024 2:40 PM CLIN NURSE MKTO Comment: ----REFERENCE VALUE---- Synovial: <150 Peritoneal: <500 Pleural: <500 Pericardial: <500 ----ADDITIONAL INFORMATION---- This test has been modified from the strategy director's instructions. Its performance characteristics were determined by [facility] in a manner consistent with CLIA requirements. This test has not been cleared or approved by the U.S. Food and Drug Administration. Neutrophils 100 % 01/05/2024 3:04 PM CLIN NURSE MKTO Comment: ----REFERENCE VALUE---- Synovial: <25% Peritoneal: <25% Pleural: <25% Pericardial: <25% Reviewed by: Dr. Morton 01/05/2024 3:05 PM CLIN NURSE MKTO Fluid (Pleural Fluid) 01/05/2024 12:50 PM CLIN NURSE 01/05/2024 1:47 PM CLIN NURSE Fidencio Oliva M.D. LAB BODY FLUIDS AND STOOLS OR DERABLES Final Result Performing Organization Address City/[facility] Co de Phone Number [facility] [address] [place] [address], [place] MKTO [facility] [place] [address] [place] [address] * Triglycerides, Body Fluid (01/05/2024 12:50 PM CLIN NURSE) Triglycerides, BF 31 See Comment mg/dL 01/06/2024 11:13 AM CLIN NURSE DTL Comment: ----ADDITIONAL INFORMATION---- Pleural fluid triglyceride concentrations > 110 mg/dL are consistent with chylous effusions. Triglyceride concentrations <50 mg/dL are usually not due to chylous effusions. Peritoneal fluid triglyceride concentrations > 187 mg/dL are most consistent with chylous effusion. All other fluids refer to http://www.[employer].com for further interpretive information. This test has been modified from the strategy director's instructions. Its performance characteristics were determined by [facility] in a manner consistent with CLIA requirements. This test has not been cleared or approved by the U.S. Food and Drug Administration. Fluid Type Pleural 01/06/2024 10:14 AM CLIN NURSE DT Fluid (Pleural Fluid) 01/05/2024 12:50 PM CLIN NURSE 01/06/2024 10:01 AM CLIN NURSE Fidencio Oliva M.D. LAB BODY FLUIDS AND STOOLS OR DERABLES Final Result [facility] [address] [place] [address], [place] [facility] [address] [place] [address] * pH, Pleural Fluid (01/05/2024 12:50 PM CLIN NURSE) pH, Pleural Fluid <6.80 Not Applicable pH 01/05/2024 1:59 PM CLIN NURSE MKTO Comment: Clinical guidelines suggest that in parapneumonic pleural effusions, a pH <7.2 indicate the need for tube drainage. Fluid (Pleural Fluid) 01/05/2024 12:50 PM CLIN NURSE 01/05/2024 1:47 PM CLIN NURSE us Fidencio Oliva M.D. LAB BODY FLUIDS AND STOOLS OR DERABLES Final Result Performing Organization Address [facility] Co de Phone Number [facility] [address] [place] [address], [address] [address] * (ABNORMAL) Gram Stain (01/05/2024 12:50 PM CLIN NURSE) Only the most recent of3 resultswithin the time period is included. Gram Stain White blood cells, Many.(A) 01/05/2024 2:46 PM CLIN NURSE MKTO Gram Stain GRAM POSITIVE COCCI Many. (A) 01/05/2024 2:46 PM CLIN NURSE TO Fluid (Pleural Fluid) 01/05/2024 12:50 PM CLIN NURSE 01/05/2024 1:47 PM CLIN NURSE Comment:Specimen Source Site : Fluid Fidencio Oliva M.D. LAB MICROBIOLOGY - GENERAL OR DERABLES Final Result Performing Organization Address [facility] Co de Phone Number [facility] [address] [place] [address], [address] [address] * Bacterial Culture, Anaerobic + Susceptibility (01/05/2024 12:50 PM CLIN NURSE) Only the most recent of2 resultswithin the time period is included. Bacterial Culture, Anaerobic No growth after 7 days of incubation. 01/12/2024 7:59 AM CLIN NURSE MKTO Fluid (Pleural Fluid) 01/05/2024 12:50 PM CLIN NURSE 01/05/2024 1:47 PM CLIN NURSE Comment:Specimen Source Site : Fluid Fidencio Oliva M.D. LAB MICROBIOLOGY - GENERAL OR DERABLES Final Result Performing Organization Address City/[facility]/ZIP Co de Phone Number [facility] [address] [place] [address], [facility] MKTO [facility] [place] [address] [place] [address] * Lactate Dehydrogenase (LD), Body Fluid (01/05/2024 12:50 PM CLIN NURSE) Only the most recent of2 resultswithin the time period is included. Lactate Dehydrogenase (LD), BF >9000 See Comment U/L 01/06/2024 12:17 PM CLIN NURSE DTL Comment: ----ADDITIONAL INFORMATION---- Pleural fluid lactate [...] clinical findings. All other fluids refer to www.[employer].com for further interpretive information. This test has been modified from the strategy director's instructions. Its performance characteristics were determined by [facility] in a manner consistent with CLIA requirements. This test has not been cleared or approved by the U.S. Food and Drug Administration. Fluid Type, Lactate Dehydrogenase PLEURAL 01/06/2024 10:14 AM CLIN NURSE DTL Fluid (Pleural Fluid) 01/05/2024 12:50 PM CLIN NURSE 01/06/2024 8:29 AM CLIN NURSE Fidencio Oliva M.D. LAB BODY FLUIDS AND STOOLS OR DERABLES Final Result Performing Organization Address City/[facility]/ZIP Co de Phone Number [facility] [address] [place] [address], [place] [facility] [address] [place] [address] * Glucose, Body Fluid (01/05/2024 12:50 PM CLIN NURSE) Only the most recent of2 resultswithin the time period is included. Glucose, BF 49 See Comment mg/dL 01/06/2024 11:13 AM CLIN NURSE DTL Comment: ----ADDITIONAL INFORMATION---- Body fluid glucose [...] cystic lesions. All other fluids refer to www.[employer] for further interpretive information. This test has been modified from the strategy director's instructions. Its performance characteristics were determined by [facility] in a manner consistent with CLIA requirements. This test has not been cleared or approved by the U.S. Food and Drug Administration. Fluid Type, Glucose PLEURAL 01/05 10:14 AM CLIN NURSE DTL Fluid (Pleural Fluid) 01/05/2024 12:50 PM CLIN NURSE 01/06/2024 10:01 AM CLIN NURSE Fidencio Oliva M.D. LAB BODY FLUIDS AND STOOLS OR DERABLES Final Result [facility] [address] [place] [address], [facility] [address] [place] [address] * Pneumonia Panel, PCR (01/04/2024 7:45 PM CLIN NURSE) Specimen Source SPUTUM 10:43 PM CLIN NURSE MKTO Acinetobacter calcoaceticus-balbir annii complex Undetected Undetected copies/mL 01/04/2024 10:43 PM CLIN NURSE MKTO Enterobacter cloacae complex Undetected Undetected copies/mL 01/04/2024 10:43 PM CLIN NURSE MKTO Escherichia coli Undetected Undetected copies/mL 01/04/2024 10:43 PM CLIN NURSE MKTO Haemophilus influenzae Undetected Undetected copies/mL 01/04/2024 10:43 PM CLIN NURSE MKTO Klebsiella aerogenes Undetected Undetected copies/mL 01/04/2024 10:43 PM CLIN NURSE MKTO Klebsiella oxytoca Undetected Undetected copies/mL 01/04/2024 10:43 PM CLIN NURSE MKTO Klebsiella pneumoniae complex Undetected Undetected copies/mL 01/04/2024 10:43 PM CLIN NURSE MKTO Moraxella catarrhalis Undetected Undetected copies/mL 01/04/2024 10:43 PM CLIN NURSE MKTO Proteus species Undetected Undetected copies/mL 01/04/2024 10:43 PM CLIN NURSE MKTO Pseudomonas aeruginosa Undetected Undetected copies/mL 01/04/2024 10:43 PM CLIN NURSE MKTO Serratia marcescens Undetected Undetected copies/mL 01/04/2024 10:43 PM CLIN NURSE MKTO Staphylococcus aureus complex Undetected Undetected copies/mL 01/04/2024 10:43 PM CLIN NURSE MKTO Streptococcus agalactiae Undetected Undetected copies/mL 01/04/2024 10:43 PM CLIN NURSE MKTO Streptococcus pneumoniae Undetected Undetected copies/mL 01/04/2024 10:43 PM CLIN NURSE MKTO Streptococcus pyogenes Undetected Undetected copies/mL 01/04/2024 10:43 PM CLIN NURSE MKTO Chlamydia pneumoniae Undetected Undetected 01/04/2024 10:43 PM CLIN NURSE MKTO Legionella pneumophila Undetected Undetected 01/04/2024 10:43 PM CLIN NURSE MKTO Mycoplasma pneumoniae Undetected Undetected 01/04/2024 10:43 PM CLIN NURSE MKTO Adenovirus Undetected Undetected 01/04/2024 10:43 PM CLIN NURSE MKTO Coronavirus Undetected Undetected 01/04/2024 10:43 PM CLIN NURSE MKTO Human Metapneumovirus Undetected Undetected 01/04/2024 10:43 PM CLIN NURSE MKTO Human Rhinovirus/Enterov irus Undetected Undetected 01/04/2024 10:43 PM CLIN NURSE MKTO Influenza A Undetected Undetected 01/04/2024 10:43 PM CLIN NURSE MKTO Influenza B Undetected Undetected 01/04/2024 10:43 PM CLIN NURSE MKTO Parainfluenza Undetected Undetected 01/04/2024 10:43 PM CLIN NURSE MKTO Respiratory Syncytial Virus Undetected Undetected 01/04/2024 10:43 PM CLIN NURSE MKTO Comment: ----ADDITIONAL INFORMATION---- This assay is performed using the FDA-cleared FilmArray Pneumonia Panel (PN) (SMR SITE.). Any initial empiric treatment guidance provided in [...] SARS-CoV-2. Sputum (Sputum) 01/04/2024 7 :45 PM CLIN NURSE 01/04/2024 7:55 PM CLIN NURSE Octavio Cavazos, Ch.B. LAB MICROBIOLOGY - GENERAL ORDERABLES Final Result Performing Organization Address City/[facility] Co de Phone Number [facility] [address] [place] [address], [place] [address] * Bacterial Culture, Aerobic + Susceptibility, Respiratory (01/04/2024 7:45 PM CLIN NURSE) Pathologist [facility] [place] Bacterial Culture, Aerobic, Resp No growth after 2 days of incubation. 01/06/2024 8:19 AM CLIN NURSE [facility] Sputum (Sputum) 01/04/2024 7 :45 PM CLIN NURSE 01/04/2024 7:55 PM CLIN NURSE Comment:Specimen Source Site : Sputum Result [facility] Octavio Cavazos, Ch.B. LAB MICROBIOLOGY - GENERAL ORDERABLES Final Result Performing Organization Address City/[facility] Co de Phone Number [facility] [address] [place] [address], [address] [address] * MRSA PCR, Nasal (01/04/2024 7:45 PM CLIN NURSE) Pathologist [facility] [place] MRSA Screen, Nasal by PCR Negative Negative 01/04/2024 9:24 PM CLIN NURSE [facility] Swab (Nares) 01/04/2024 7:45 PM CLIN NURSE 01/04/2024 7:53 PM CLIN NURSE Frank Mccall M.D. LAB MICROBIOLOGY - GENERAL ORDERABLES Final Result [facility] [address] [place] [address], [place] MK[place] [facility] [place] [address] [place] [address] * Ankle, Right-Nursing Image Exam (01/04/2024 7:40 PM CLIN NURSE) 01/04/2024 7:39 PM CLIN NURSE Narrative IIMS - 01/04/2024 7:42 PM CLIN NURSE This order has been created and auto-finalized to support the import of images acquired without order. The clinical documentation to support these images can be found on the encounter that produced images. us Provider Not In System IMG NON RAD IMAGING PROCE DURES Final Result Performing Organization Address [facility] Co de Phone Number II NA * (TTE) 2D ECHO DOPPLER COLOR AND CONTRAST (01/04/2024 10:38 AM CLIN NURSE) Ejection Fraction 59 MC CV EIMS Sinus [...] Region Laterality Modality Echocardiography 01/04/2024 9:49 AM CLIN NURSE Impressions 01/04/2024 11:49 AM CLIN NURSE Echo performed at the patient's bedside. LEFT [...] per Echocardiography Contrast Administration Protocol Reference Document [id number] Rev 05/30/2021. Patient met an inclusion criterion and did not have contraindications in screening sections. For the complete report, see the Order-Level Documents. Narrative 01/04/2024 11:49 AM CLIN NURSE For the complete report, see the Order-Level [...] administered per EchocardiographyContrast Administration Protocol Reference Document [id number] Rev05/30/2021. Patient met an inclusion criterion and did not havecontraindications in screening sections. For the complete report, see the Order-Level Documents. Jet Palomares M.D. CV ECHO PROCEDURES Sury l Result * (ABNORMAL) Urinalysis with Microscopic if Indicated (01/04/2024 5:56 AM CLIN NURSE) Source Urine, Urine, Midstream 01/04/2024 6:03 AM CLIN NURSE MKTO Clarity Cloudy(A) Clear 01/04/2024 6:37 AM CLIN NURSE MKTO Color Yellow 01/04/2024 6:37 AM CLIN NURSE MKTO Comment: ----REFERENCE VALUE---- Colorless Yellow Veronica Blood Negative Negative 01/04/2024 6:37 AM CLIN NURSE MKTO Nitrite Negative Negative 01/04/2024 6:37 AM CLIN NURSE MKTO Leukocyte Esterase Negative Negative 01/04/2024 6:37 AM CLIN NURSE MKTO Protein 30(A) mg/dL 01/04/2024 6:37 AM CLIN NURSE MKTO Comment: ----REFERENCE VALUE---- Negative Trace Glucose Negative Negative mg/dL 01/04/2024 6:37 AM CLIN NURSE MKTO Ketone Trace(A) Negative mg/dL 01/04/2024 6:37 AM CLIN NURSE MKTO Bilirubin Negative Negative 01/04/2024 6:37 AM CLIN NURSE MKTO pH 5.0 5.0 - 8.0 01/04/2024 6:37 AM CLIN NURSE MKTO Specific [place] 1.014 1.001 - 1.035 01/04/2024 6:37 AM CLIN NURSE MKTO Urobilinogen 0.2 0.2 - 1.0 mg/dL 01/04/2024 6:37 AM CLIN NURSE MKTO Urine (Urine, Midstream) 01/04/2024 5:56 AM CLIN NURSE 01/04/2024 6:02 AM CLIN NURSE us Jet Palomares M.D. LAB URINE ORDERABLES Fi nal Result Performing Organization Address City/[facility] Co de Phone Number [facility] [address] [place] [address], [place] [address] * Sodium, Random, Urine (01/04/2024 5:56 AM CLIN NURSE) Sodium, Random, U 28 mmol/L 01/04/2024 6:54 AM CLIN NURSE MKTO Comment: ----REFERENCE VALUE---- Random urine sodium may be interpreted in conjunction with serum sodium, using both values to calculate fractional excretion of sodium. Urine (Urine, Midstream) 01/04/2024 5:56 AM CLIN NURSE 01/04/2024 6:01 AM CLIN NURSE Fausto Bey M.D. LAB URINE ORDERABLES Final Resu lt Performing Organization Address [facility] Co de Phone Number [facility] [address] [place] [address], [place] [address] * (ABNORMAL) Microscopic Automated (01/04/2024 5:56 AM CLIN NURSE) White Blood Cells 4-10(A) /hpf 01/04/2024 6:58 AM CLIN NURSE MKTO Comment: ----REFERENCE VALUE---- Males: 0-3 Females: 0-10 Unknown: 0-10 Red Blood Cells None Seen 0 - 2 /hpf 01/04/2024 6:58 AM CLIN NURSE MKTO Hyaline Casts 4-10 /lpf 01/04/2024 6:58 AM CLIN NURSE MKTO Squamous Cells Occ-3 /hpf 01/04/2024 6:58 AM CLIN NURSE MKTO Urine 01/04/2024 5:56 AM CLIN NURSE 01/04/2024 6:02 AM CLIN NURSE Jet Palomares M.D. LAB URINE ORDERABLES Fi nal Result Performing Organization Address City/[facility]/ZIP Co de Phone Number [facility] [address] [place] [address], [address] [address] * (ABNORMAL) Protein/Creatinine Ratio, Random, Urine (01/04/2024 5:56 AM CLIN NURSE) Protein, Total, Random, U 33 mg/dL 01/04/2024 6:54 AM CLIN NURSE MKTO Creatinine, Random, U 94 16 - 326 mg/dL 01/04/2024 6:54 AM CLIN NURSE MKTO Protein/Creati nine Ratio 0.35(H) <0.18 mg/mg 01/04/2024 6:54 AM CLIN NURSE MKTO Urine (Urine, Midstream) 01/04/2024 5:56 AM CLIN NURSE 01/04/2024 6:02 AM CLIN NURSE Jet Palomares M.D. LAB URINE ORDERABLES Fi nal Result Performing Organization Address City/[facility]/ZIP Co de Phone Number [facility] [address] [place] [address], [address] [address] * (ABNORMAL) NT-Pro B-Type Natriuretic Peptide (BNP) (01/04/2024 4:56 AM CLIN NURSE) Only the most recent of3 resultswithin the time period is included. NT-Pro BNP 5163(H) <=540 pg/mL 01/04/2024 8:20 AM CLIN NURSE [facility] Comment: NT-proBNP values less than 300 [...] failure. Blood (Blood, Venous) 01/04/2024 4:56 AM CLIN NURSE 01/04/2024 8:01 AM CLIN NURSE Portia Ramos M.D., Ph.D. LAB BLOOD ADD-ON Final Res ult Performing Organization Address [facility] Co de Phone Number [facility] [address] [place] [address] * (ABNORMAL) Iron and Total Iron-Binding Capacity (01/04/2024 4:56 AM CLIN NURSE) Iron 38(L) 50 - 150 mcg/dL 01/04/2024 8:32 AM CLIN NURSE TO Total Iron Binding Capacity 79(L) 250 - 400 mcg/dL 01/04/2024 8:32 AM CLIN NURSE TO Percent Saturation 48 14 - 50 % 01/04/2024 8:32 AM CLIN NURSE TO Blood (Blood, Venous) 01/04/2024 4:56 AM CLIN NURSE 01/04/2024 8:02 AM CLIN NURSE Portia Ramos M.D., Ph.D. LAB BLOOD ADD-ON Final Res ult Performing Organization Address [facility] Co de Phone Number [facility] [address] [place] [address], [place] [address] * Parathyroid Hormone (PTH) (01/04/2024 4:56 AM CLIN NURSE) Parathyroid Hormone (PTH), S 43 15 - 65 pg/mL 01/04/2024 8:32 AM CLIN NURSE TO Comment: Biotin has been identified by the strategy director as a potential interfering substance. Higher concentrations of biotin may be found in multivitamins, hair/nail supplements, and workout supplements. If the result does not match clinical observations, repeat testing after patient refrains from the use of supplements for at least 12 hours. Blood (Blood, Venous) 01/04/2024 4:56 AM CLIN NURSE 01/04/2024 8:02 AM CLIN NURSE us Portia Ramos M.D., Ph.D. LAB BLOOD ADD-ON Final Res ult Performing Organization Address [facility] Co de Phone Number [facility] [address] [place] [address] * (ABNORMAL) Ferritin (01/04/2024 4:56 AM CLIN NURSE) Ferritin, S 1703(H) 31 - 409 mcg/L 01/04/2024 8:32 AM CLIN NURSE [facility] Comment: Biotin has been identified by the strategy director as a potential interfering substance. Higher concentrations of biotin may be found in multivitamins, hair/nail supplements, and workout supplements. If the result does not match clinical observations, repeat testing after patient refrains from the use of supplements for at least 12 hours. Blood (Blood, Venous) 01/04/2024 4:56 AM CLIN NURSE 01/04/2024 8:02 AM CLIN NURSE us Portia Ramos M.D., Ph.D. LAB BLOOD ADD-ON Final Res ult Performing Organization Address [facility] Co de Phone Number [facility] [address] [place] [address] * US Thoracentesis Right with Imaging Guidance (01/03/2024 5:04 PM CLIN NURSE) Anatomical Region Laterality Modality Chest, Ultrasound RST LOS, U ltrasound ARZ LOS, Procedure FLA LOS, Abdominal FLA LOS, Procedural, Procedural NWWI LOS Right Ultrasound Impressions 01/04/2024 8:03 AM CLIN NURSE Successful ultrasound guided diagnostic and therapeutic right thoracentesis. Narrative 01/04/2024 8:03 AM CLIN NURSE EXAM: US THORACENTESIS RIGHT WITH IMAGING GUIDANCE PROCEDURE: Sterile; 1% lidocaine for local anesthesia. Location: Right pleural space Needle size: 5 Fr [facility] Fluid Amount/Color: 150 mL of white/hubbard [...] medications. Patient education provided by the care produce service team member. Ready to learn, no apparent learning barriers [...] medications. Patient education provided by the care produce service team member. Ready to learn, no apparent learningbarriers were identified. Post-procedure care explained; patient expressedunderstanding of the content. IMPRESSION: Successful ultrasound guided diagnostic and therapeutic rightthoracentesis. us Octavio Cavazos Ch.B. IMG US PROCEDURES Final Result * Bacteria / Alix Culture, Blood #1 (01/03/2024 10:53 AM CLIN NURSE) Only the most recent of2 resultswithin the time period is included. Bacteria/Nereida da Culture, Blood No growth after 5 day/s of incubation. 01/08/2024 11:05 AM CLIN NURSE [facility] Blood (Blood, Peripheral Draw) 01/03/2024 10:53 AM CLIN NURSE 01/03/2024 10:58 AM CLIN NURSE Comment:Specimen Source Site : Blood Octavio Cavazos, Ch.B. LAB MICROBIOLOGY - GENERAL ORDERABLES Final Result Performing Organization Address [facility] Co de Phone Number [facility] [address] [place] [address] * Lactate for Sepsis with Reflex (01/03/2024 10:52 AM CLIN NURSE) Pathologist [facility] [place] Lactate, B 1.1 0.5 - 2.2 mmol/L 01/03/2024 11:01 AM CLIN NURSE [facility] Blood (Blood, Venous) 01/03/2024 10:52 AM CLIN NURSE 01/03/2024 10:58 AM CLIN NURSE Octavio Cavazos, Ch.B. LAB BLOOD NON ADD- ON Final Result Performing Organization Address City/[facility]/ZIP Co de Phone Number [facility] [address] [place] [address], [place] [address] * (ABNORMAL) Albumin (01/03/2024 10:51 AM CLIN NURSE) Only the most recent of2 resultswithin the time period is included. Albumin, P 3.0(L) 3.5 - 5.0 g/dL 01/03/2024 1:15 PM CLIN NURSE [facility] Blood (Blood, Venous) 01/03/2024 10:51 AM CLIN NURSE 01/03/2024 1:02 PM CLIN NURSE us Jet Palomares M.D. LAB BLOOD ADD-ON Final Result Performing Organization Address City/[facility]/ZIP Co de Phone Number [facility] [address] [place] [address], [place] [address] * pH (01/03/2024 6:42 AM CLIN NURSE) Only the most recent of2 resultswithin the time period is included. [facility] pH 7.43 7.35 - 7.45 pH 01/03/2024 7:00 AM CLIN NURSE [facility] Blood 01/03/2024 6:42 AM CLIN NURSE 01/03/2024 6:55 AM CLIN NURSE us Deanna Lewis APRN, C.N.P., D.N.P., M.S.N. LAB H ISTORICAL ORDERS Final Result Performing Organization Address [facility] Co de Phone Number [facility] [address] [place] [address], [place] [address] * (ABNORMAL) QuantiFERON-Tb Gold Plus, Blood (01/03/2024 6:42 AM CLIN NURSE) [facility] QuantiFERON-TB Gold Plus Result Indetermi parviz(A) Negative 01/07/2024 2:48 PM CLIN NURSE [facility] Comment: Indeterminate due to a low interferon-gamma level in the mitogen (positive control) tube. This may occur due to a low lymphocyte count, reduced lymphocyte activity or inability of the patient's lymphocytes to generate interferon-gamma. The reference range for the 'Mitogen minus Nil Result' is >=0.5 IU/mL. TB1 Ag minus Nil Result 0.00 IU/mL 01/07/2024 2:48 PM CLIN NURSE [facility] TB2 Ag minus Nil Result 0.00 IU/mL 01/07/2024 2:48 PM CLIN NURSE [facility] Mitogen minus Nil Result 0.01 IU/mL 01/07/2024 2:48 PM CLIN NURSE [facility] Nil Result 0.04 IU/mL 01/07/2024 2:48 PM CLIN NURSE [facility] Blood (Blood, Venous) 01/03/2024 6:42 AM CLIN NURSE 01/04/2024 10:57 AM CLIN NURSE Narrative [facility] - 01/07/2024 2:48 PM CLIN NURSE Specimen Information: Specimen ID: [id number] Specimen Type: Blood Specimen Collection Start Date: 01/03/2024 6:42 AM Specimen Received Date: 01/04/2024 10:57 AM Specimen ID: [id number] Specimen Type: Blood Specimen Collection Start Date: 01/03/2024 6:42 AM Specimen Received Date: 01/04/2024 10:57 AM Specimen ID: [id number] Specimen Type: Blood Specimen Collection Start Date: 01/03/2024 6:42 AM Specimen Received Date: 01/04/2024 10:57 AM Specimen ID: [id number] Specimen Type: Blood Specimen Collection Start Date: 01/03/2024 6:42 AM Specimen Received Date: 01/04/2024 10:57 AM us Jet Palomares M.D. LAB MICROBIOLOGY - BLOO D ORDERABLES Final Result [facility] [address] [place] [address], [facility] [place] [address] * Vitamin D, Immunoassay, Total, Serum (01/03/2024 6:42 AM CLIN NURSE) Vitamin D, Immunoassay, Total, S 23 20 - 80 ng/mL 01/04/2024 8:37 AM CLIN NURSE [facility] Comment: Optimum levels within the healthy population are 20-50, patients with bone disease may benefit from high levels within this range Blood (Blood, Venous) 01/03/2024 6:42 AM CLIN NURSE 01/04/2024 8:02 AM CLIN NURSE us Portia Ramos M.D., Ph.D. LAB BLOOD ADD-ON Final Res ult Performing Organization Address City/[facility]/ZIP Co de Phone Number [facility] [address] [place] [address], [facility] [place] [address] [place] [address] * HBc Total Ab, Serum (01/03/2024 6:42 AM CLIN NURSE) HBc Total Ab, S Negative Negative 01/04/2024 11:52 AM CLIN NURSE [facility] Blood (Blood, Peripheral Draw) 01/03/2024 6:42 AM CLIN NURSE 01/04/2024 7:28 AM CLIN NURSE Jet Palomares M.D. LAB MICROBIOLOGY - BLOO D ORDERABLES Final Result Performing Organization Address [facility] Co de Phone Number [facility] [address] [place] [address] [facility] [address] [place] [address] * HBs Antibody, Serum (01/03/2024 6:42 AM CLIN NURSE) HBs Antibody, S Negative 7:57 AM CLIN NURSE [facility] Comment: Patient is presumed NOT to be immune to infection with HBV. Consumption of high-dose biotin supplement within 12 hours of blood collection for this test can cause false-negative results. ----REFERENCE VALUE---- Unvaccinated: Negative Vaccinated: Positive HBs Antibody, Quantitative, S <3.50 mIU/mL 01/03/2024 7:57 AM CLIN NURSE [facility] Comment: ----REFERENCE VALUE---- <8.50: Negative 8.50-11.49: Indeterminate >=11.50: Positive Blood (Blood, Peripheral Draw) 01/03/2024 6:42 AM CLIN NURSE 01/03/2024 6:55 AM CLIN NURSE us Jet Palomares M.D. LAB MICROBIOLOGY - BLOO D ORDERABLES Final Result Performing Organization Address City/[facility]/ZIP Co de Phone Number [facility] [address] [place] [address] * Hepatitis B Surface Antigen (01/03/2024 6:42 AM CLIN NURSE) Pathologist [facility] [place] HBs Antigen, S Nonreactive Nonreactive 01/03/2024 8:07 AM CLIN NURSE MK Blood (Blood, Peripheral Draw) 01/03/2024 6:42 AM CLIN NURSE 01/03/2024 6:55 AM CLIN NURSE us Jet Palomares M.D. LAB MICROBIOLOGY - BLOO D ORDERABLES Final Result [facility] [address] [place] [address] * (ABNORMAL) Calcium, Ionized (01/03/2024 6:42 AM CLIN NURSE) Only the most recent of2 resultswithin the time period is included. [facility] Calcium, Ionized, B 4.31(L) 4.65 - 5.30 mg/dL 01/03/2024 7:00 AM CLIN NURSE MK Blood 01/03/2024 6:42 AM CLIN NURSE 01/03/2024 6:55 AM CLIN NURSE us Deanna Lewis APRN, C.N.P., D.N.P., M.S.N. LAB B LOOD NON ADD-ON Final Result [facility] [address] [place] [address], [place] [address] * (ABNORMAL) Broad Range Bacteria PCR + Sequencing (01/03/2024 6:10 AM CLIN NURSE) [facility] Broad Range Bacteria PCR+Sequenci ng This test was developed and its performance characteristics determined by [facility] in a manner consistent with CLIA requirements. This test has not been cleared or approved by the U.S. Food and Drug Administration. (A) 01/12/2024 9:31 AM CLIN NURSE DTL Broad Range Bacteria PCR+Sequenci ng STREPTOCOCCUS INTERMEDIUS DNA detected (A) 01/12/2024 9:31 AM CLIN NURSE DTL Comment:Semi-Urgent Result. Semi-Urgent This is a semi-urgent result(AUGUSTE) [facility] Fluid (Pleural Fluid, Right) 01/03/2024 6:10 AM CLIN NURSE 01/04/2024 10:00 AM CLIN NURSE Comment:Specimen Source Site : Fluid us Octavio Cavazos, Ch.B. LAB MICROBIOLOGY - GENERAL ORDERABLES Final Result [facility] [address] [place] [address], [facility] [address] [place] [address] * Leukemia/Lymphoma Immunophenotyping by Flow Cytometry (01/03/2024 6:10 AM CLIN NURSE) LCMS Result Performed 01/05/2024 1:37 PM CLIN NURSE DTL Final Diagnosis: Pleural fluid, flow cytometric immunophenotyp ing: No monotypic B-cell population or increase in blasts identified. Reviewed by: Blank Crisostomo M.D. 01/05/2024 1:37 PM CLIN NURSE DTL Special Studies: Results: Blasts: Not increased by CD45/side scatter and CD34. B-cells: Absence of KH34-yumhfhlu B cells. B-cell markers tested: CD19, CD10 and kappa and lambda surface light chains. T-cells/NK-joelle ls: No aberrant phenotype by CD3 and CD16. Quality assessment: Specimen received within validated guidelines. 01/05/2024 1:37 PM CLIN NURSE DTL Microscopic Description A Hu-Giemsa- stained slide prepared from the flow cytometry specimen is examined. Morphology is suboptimal. 01/05/2024 1:37 PM CLIN NURSE DTL Comment: ----ADDITIONAL INFORMATION---- This test was developed using an analyte specific reagent. Its performance characteristics were determined by [facility] in a manner consistent with CLIA requirements. This test has not been cleared or approved by the U.S. Food and Drug Administration. Fluid (Pleural Fluid, Right) 01/03/2024 6:10 AM CLIN NURSE 01/04/2024 8:57 AM CLIN NURSE Octavio Cavazos, Ch.B. LAB GENETIC TESTIN G Final Result Performing Organization Address City/[facility]/ZIP Co de Phone Number [facility] [address] [place] [address], [facility] DT [address] [place] [address] * M tuberculosis Complex PCR (01/03/2024 6:10 AM CLIN NURSE) [facility] MTB Complex PCR, Specimen Source Fluid, Pleural Fluid, Right 01/06/2024 7:45 PM CLIN NURSE DTL MTB Complex PCR, Result Negative Not Applicable 01/06/2024 7:45 PM CLIN NURSE DTL Comment: A mycobacterial culture must always [...] developed and its performance characteristics determined by [facility] in a manner consistent with CLIA requirements. This test has not been cleared or approved by the U.S. Food and Drug Administration. Fluid (Pleural Fluid, Right) 01/03/2024 6:10 AM CLIN NURSE 01/04/2024 10:24 AM CLIN NURSE us Octavio Cavazos, Ch.B. LAB MICROBIOLOGY - GENERAL ORDERABLES Final Result Performing Organization Address City/[facility]/ZIP Co de Phone Number [facility] [address] [place] [address], [facility] DTL [address] [place] [address] * Cholesterol, Body Fluid (01/03/2024 6:10 AM CLIN NURSE) Cholesterol, BF 34 See Comment mg/dL 01/05/2024 8:47 AM CLIN NURSE DTL Comment: ----ADDITIONAL INFORMATION---- Pleural fluid cholesterol concentrations > 45 to 65 mg/dL are consistent with exudative effusions. Cholesterol concentrations > 200 mg/dL suggest pseudochylous effusions. Peritoneal fluid cholesterol concentrations > 32 to 70 mg/dL suggest a malignant cause of ascites. All other fluids refer to http://www.[employer].com for further interpretive information. This test has been modified from the strategy director's instructions. Its performance characteristics were determined by [facility] in a manner consistent with CLIA requirements. This test has not been cleared or approved by the U.S. Food and Drug Administration. Fluid Type Pleural 01/05/2024 8:14 AM CLIN NURSE DTL Fluid (Pleural Fluid, Right) 01/03/2024 6:10 AM CLIN NURSE 01/05/2024 7:49 AM CLIN NURSE us Octavio Cavazos, Ch.B. LAB BODY FLUIDS AN D STOOLS ORDERABLES Final Result [facility] [place] [address] [place] [address], [facility] [address] [place] [address] * NV INS NON-BLAINE CVC >5YR, NV US GUIDE VASC ACCESS, LDA ANE CENTRAL LINE DOUBLE LUMEN ADULT, MC ANE CENTRAL LINE GENERIC PERFORMABLE (01/02/2024 3:47 PM CLIN NURSE) Narrative Nikki Salinas M.D. - 01/02/2024 3:47 PM CLIN NURSE Nikki Salinas M.D. 01/02/2024 3:50 PM Invasive [...] Image-General Surgery Image Exam (01/02/2024 3:30 PM CLIN NURSE) Narrative [facility] - 01/06/2024 8:53 PM CLIN NURSE This order has been created and auto-finalized to support the import of images acquired without order. The clinical documentation to support these images can be found on the encounter that produced images. us Provider Not In System IMG NON RAD IMAGING PROCE DURES Final Result [facility] NA * US Kidneys Bilateral with Bladder (01/02/2024 10:15 AM CLIN NURSE) Anatomical Region Laterality Modality Abdomen, Renal, Ultrasound R ST LOS, Ultrasound ARZ LOS, Ultrasound FLA LOS Bilateral Ultrasound Impressions 01/02/2024 10:57 AM CLIN NURSE 1. No hydronephrosis. 2. Bilateral simple appearing renal cysts. Narrative 01/02/2024 10:57 AM CLIN NURSE EXAM: US KIDNEYS BILATERAL WITH BLADDER COMPARISON: [...] * CK (Creatine Kinase) (01/02/2024 4:10 AM CLIN NURSE) Creatine Kinase, P 78 39 - 308 U/L 01/02/2024 9:49 AM CLIN NURSE [facility] Blood (Blood, Venous) 01/02/2024 4:10 AM CLIN NURSE 01/02/2024 9:30 AM CLIN NURSE us Jet Palomares M.D. LAB BLOOD ADD-ON Final Result Performing Organization Address [facility] Co de Phone Number [facility] [address] [place] [address], [place] [address] * Lactate, B (01/02/2024 3:41 AM CLIN NURSE) Lactate, B 0.8 0.5 - 2.2 mmol/L 01/02/2024 4:47 AM CLIN NURSE TO Blood (Blood, Venous) 01/02/2024 3:41 AM CLIN NURSE 01/02/2024 4:45 AM CLIN NURSE us Deanna Lewis APRN, C.N.P., D.N.P., M.S.N. LAB B LOOD NON ADD-ON Final Result Performing Organization Address [facility] de Phone Number [facility] [address] [place] [address], [place] [address] * (ABNORMAL) Osmolality (01/02/2024 3:41 AM CLIN NURSE) Osmolality, S 338(H) 276 - 306 mOsm/kg 01/02/2024 5:40 AM CLIN NURSE [facility] Blood (Blood, Venous) 01/02/2024 3:41 AM CLIN NURSE 01/02/2024 4:05 AM CLIN NURSE us Fausto Bey M.D. LAB BLOOD ADD-ON Final Result Performing Organization Address City/[facility]/ZIP Co de Phone Number [facility] [address] [place] [address], [facility] in [address] [address] * (ABNORMAL) Blood Gas with Coox, Venous (01/02/2024 3:41 AM CLIN NURSE) pO2, Venous 49 Not applicable mm Hg 01/02/2024 4:14 AM CLIN NURSE [facility] pCO2, Venous 29(L) 41 - 51 mm Hg 4:14 AM CLIN NURSE [facility] pH, Venous 7.29(L) 7.32 - 7.43 pH 01/02/2024 4:14 AM CLIN NURSE [facility] Base Excess, Venous -12 Not applicable mmol/L 01/02/2024 4:14 AM CLIN NURSE [facility] HCO3, Venous 13 Not applicable mmol/L 01/02/2024 4:14 AM CLIN NURSE [facility] Hemoglobin, Venous 9.6(L) 13.2 - 16.6 g/dL 01/02/2024 4:14 AM CLIN NURSE [facility] O2Hb, Venous 79.4 Not applicable % 01/02/2024 4:14 AM CLIN NURSE [facility] COHb, Venous 0.2 <3.0 % 01/02/2024 4:14 AM CLIN NURSE [facility] MetHb, Venous 1.2 <1.5 % 01/02/2024 4:14 AM CLIN NURSE [facility] CtO2, Venous 10.8 Not Applicable vol % 01/02/2024 4:14 AM CLIN NURSE [facility] Blood (Blood, Venous) 01/02/2024 3:41 AM CLIN NURSE 01/02/2024 4:05 AM CLIN NURSE us Fausto Bey M.D. LAB BLOOD NON ADD-ON Final Resu lt [facility] [address] [place] [address], [address] [address] * CT chest abdomen pelv wo con-Outside CT Body (01/01/2024 2:25 PM CLIN NURSE) 01/01/2024 2:17 PM CLIN NURSE Narrative [facility] - 01/01/2024 3:57 PM CLIN NURSE This order has been created and auto-finalized [...] PROCEDURES Final R esult Performing Organization Address [facility] de Phone Number [facility] NA * CT HEAD/BRAIN WO CON-Outside CT Neuro (01/01/2024 2:20 PM CLIN NURSE) 01/01/2024 2:17 PM CLIN NURSE Narrative [facility] - 01/01/2024 3:56 PM CLIN NURSE This order has been created and auto-finalized [...] PROCEDURES Final R esult Performing Organization Address City/[facility] Co de Phone Number [facility] NA from Last 3 Months
--- OUTSIDE RECORDS SUMMARY | 2024-01-22 10:51 | XMS_ITS | Encounter Summary ---
Author Organization [facility] Address [address] [place] [address] Care Team Providers Care Combat Systems Operator Name Role Phone Elsewhere, Pcp Primary Care Provider Unavailabl e Reason for Visit * Reason Onset Date Comments Appointment 01/15/2024 Lab visit Encounter Details Date Type Department Care Team (Latest Contact Info) Description 01/15/2024 Clinical Communication Department of Infectious Diseases in [place], [place] [address] [place] [phone] Ceci Cates RElielNEliel [address] [place] [phone] Appointment (Lab visit) Social History Tobacco Use Types Packs/Day Years Used Date Smoking Tobacco: Never Passive Smoke Exposure: Never Smokeless Tobacco: Never [facility] Utilities Answer Date Recorded In the past 12 months has [facility] [employer], gas, oil, or water [employer] threatened to shut off services in your [...] money to buy more. Never true 01/10/20 24 Within the past 12 months, t he [...] your living situation today? I have a [facility] place to live 01/10/2024 Sex and Gender Information Value Date Recorded Sex Assigned at Not on file Legal Sex Male 3:31 PM MARKETING PRODUCTION SPECIALIST Gender Identity Not on file Sexual Orientation Not on file documented as of this encounter Miscellaneous Notes * Telephone Encounter - Ceci Cates RTito - 01/15/2024 11:55 AM CST RN faxed lab orders, CBC with diff & CMP, to [facility] lab ([phone]) to arrange lab visit for patient on 01/22/2024 after 11:00 a.m. RN was informed by patient access there were no lab visit appointments available on 01/22/2024, next available would be 02/12/2024. RN placed phone call to patient and patients , Viviana to let them know, there was no answer, voicemail message was left. RN did not cancel scheduled lab visit on 01/25/2024 at 1:30 p.m at [facility] lab. ETING PRODUCTION SPECIALIST * Telephone Encounter - Ceci Cates R.N. - 01/15/2024 11:35 AM CST RN received phone call from patients , Viviana today updating nursing patient is scheduled for CTchest at [facility] on 01/22/2024 at 1045 a.m. She noted patient is scheduled forVM Discovery work on 01/25/2024 at [facility] on 01/25/2024 at 1:30 p.m. She is wondering if lab orders can be faxed to [place] and patient can have them drawn on 01/22/2024, same day as CT chest. also inquired how come fmd teacher and infectious diseases provider could not call with results versus a face to face visit. RN explained follow up visit needs to be face to face so providers can listen to her spouse lungs, assess nail beds, look for jugular vein distention, etc. stated she had not thought of that and will bring in [place] as scheduled on 01/25/2024. RN will route lab orders to [place] and ask for them to be drawn on 01/22/2024. will be updated on what time she should arrive for lab visit. ETING PRODUCTION SPECIALIST documented in this encounter Plan of Treatment Upcoming Encounters Date Type Department Care Team (Latest Contact Info) Description 01/25/2024 1:30 PM MARKETING PRODUCTION SPECIALIST Appointment Department of Laboratory Medicine in [address] [phone] Sarah Perry M.D. [address] [place] [phone] 01/25/2024 2:30 PM MARKETING PRODUCTION SPECIALIST Office Visit Department of Infectious Diseases in [address] [phone] Clara Jones P.A.-C. [address] [place] [phone] 01/25/2024 3:00 PM MARKETING PRODUCTION SPECIALIST Comprehensive Visit Department of Pulmonary Medicine in [place], [place] [address] [place] [phone] Fidencio Oliva M.D. [address] [place] [phone] Discharge Disposition: Home or Self Care documented as of this encounter Visit Diagnoses Not on filedocumented in this encounter Care Teams Combat Systems Operator Relationship Specialty Start Date End Date Elsewhere, Pcp PCP - General Internal Medicine 01/04/24 documented as of this encounter
--- OUTSIDE RECORDS SUMMARY | 2024-01-22 10:51 | XMS_ITS | Encounter Summary ---
Author Organization [facility] Address [address] [place] [address] Care Team Providers Care Football Coach Name Role Phone Elsewhere, Pcp Primary Care Provider Unavailabl e Encounter Details Date Type Department Care Team (Late st Contact Info) Description 01/13/2024 Clinical Communication Department of Infectious Diseases in [place], [place] [address] [place] [phone] Sarah Perry M.D. [address] [place] [phone] Social History Tobacco Use Types Packs/Day Years Used Date Smoking Tobacco: Never Passive Smoke Exposure: Never Smokeless Tobacco: Never [facility] Utilities Answer Date Recorded In the past 12 months has [facility] [employer], gas, oil, or water company threatened to [...] your living situation today? I have a [facility] place to live 01/10/2024 Sex and Gender Information Value Date Recorded Sex Assigned at Not on file Legal Sex Male 3:31 PM CUSTOMS APPRAISER Gender Identity Not on file Sexual Orientation Not on file documented as of this encounter Miscellaneous Notes * Telephone Encounter - Stacy Esposito R.N. - 01/13/2024 1:[address] order was faxed to [facility] as requested (fax [phone]). Spouse, Viviana, was updated. She will let us know as soon as this is scheduled so that we can watch for results. Spouse aware CT must be completed prior to ID clinic f/u on 01/25/2024. OMS APPRAISER documented in this encounter Plan of Treatment Upcoming Encounters Date Type Department Care Team (Latest Contact Info) Description 01/25/2024 1:30 PM CUSTOMS APPRAISER Appointment Department of Laboratory Medicine in [place], [place] [address] [place] [phone] Sarah Perry M.D. [facility] [place] [phone] 01/25/2024 2:30 PM CUSTOMS APPRAISER Office Visit Department of Infectious Diseases in [address] [phone] Clara Jones P.A.-C. [address] [place] [phone] 01/25/2024 3:00 PM CUSTOMS APPRAISER Comprehensive Visit Department of Pulmonary Medicine in [address] [phone] Fidencio Oliva M.D. [address] [place] [phone] Discharge Disposition: Home or Self Care documented as of this encounter Visit Diagnoses Not on filedocumented in this encounter Care Teams Football Coach Relationship Specialty Start Date End Date Elsewhere, Pcp PCP - General Internal Medicine 01/04/24 documented as of this encounter
--- OUTSIDE RECORDS SUMMARY | 2024-01-22 10:52 | XMS_ITS | Encounter Summary ---
Author Organization [facility] Address [address] [place] [address] Care Team Providers Care Wood Pattern Maker Name Role Phone Unavailable Primary Care Provider Unavailabl e Encounter Details Date Type Department Care Team (Late st Contact Info) Description 01/02/2024 3:30 PM SOFTWARE SYSTEMS ANALYST Ancillary Procedure Department of General Surgery Social History Tobacco Use Types Packs/Day Years Used Date Smoking Tobacco: Never Assessed Dental Answer Date Recorded Dental: Regular Dentist Unknown 12/25/19 23 Sex and Gender Information Value Date Recorded Sex Assigned at Not on file Legal Sex Male 3:31 PM SOFTWARE SYSTEMS ANALYST Gender Identity Not on file Sexual Orientation Not on file documented as of this encounter Plan of Treatment Upcoming Encounters Date Type Department Care Team (Latest Contact Info) Description 01/25/2024 1:30 PM SOFTWARE SYSTEMS ANALYST Appointment Department of Laboratory Medicine in [address] [phone] Sarah Perry M.D. [address] [place] [phone] 01/25/2024 2:30 PM SOFTWARE SYSTEMS ANALYST Office Visit Department of Infectious Diseases in [address] [phone] Clara Jones P.A.-C. [address] [place] [phone] 01/25/2024 3:00 PM SOFTWARE SYSTEMS ANALYST Comprehensive Visit Department of Pulmonary Medicine in [place], [place] [address] [place] [phone] Fidencio Oliva M.D. [address] [place] [phone] Discharge Disposition: Home or Self Care documented as of this encounter Procedures Procedure Name Priority Date/Time Associated Diagnosis Comments GENERAL SURGERY IMAGE EXAM Routine 01/02/2024 3:30 PM SOFTWARE SYSTEMS ANALYST documented in this encounter Results * Non-Radiology Image-General Surgery Image Exam (01/02/2024 3:30 PM SOFTWARE SYSTEMS ANALYST) Narrative [facility] - 01/06/2024 8:53 PM SOFTWARE SYSTEMS ANALYST This order has been created and auto-finalized [...]
--- OUTSIDE RECORDS SUMMARY | 2024-01-22 10:52 | XMS_ITS | Encounter Summary ---
Author Organization [facility] Address [address] [place] [address] Care Team Providers Care Morning Show Producer Name Role Phone Elsewhere, Pcp Primary Care Provider Unavailabl e Reason for Referral * Outpatient (Routine) - Authorized Specialty Diagnoses / Procedures Referred By Contac t Referred To Contact Diagnoses Empyema Pleural (HCC) Jeremías Fernandez M.D. [address] [place] [phone] Phone: tel: fax: Tate Bear M.D., D.O. [address] [place] [address] Phone: tel: fax: Referral ID Status Reason Start Date Expiration Date Visits Requested Visits Authorized [id number] Authorized Continuity of Care 01/11/2024 07/12/2025 1 1 OLOGICAL PHYSIOTHERAPIST * Outpatient (Routine) - Authorized Specialty Diagnoses / Procedures Referred By Contac t Referred To Contact Pulmonary Medicine Diagnoses Pneumonia Empyema Pleural (HCC) Fidencio Oliva M.D. [address] [place] [phone] Phone: tel: fax: [facility] Referral ID Status Reason Start Date Expiration Date V isits Requested Visits Authorized [id number] Authorized 01/11/2024 07/12/2025 1 1 Scheduling Instructions Schedule along side ID consult on 01/24, may need to add-on to Asael ARITA round time, contact Asael RN OLOGICAL PHYSIOTHERAPIST Reason for Visit * Auth/Cert (Routine) Specialty Diagnoses / Procedures Referred By Contac t Referred To Contact Diagnoses Failure Renal Acute (Acute Kidney Injury) (HCC) ACUTE ON CHRONIC RENAL FAILURE Procedures INPT Referral ID Status Reason Start Date Expiration Date Visits Re quested Visits Authorized [id number] 1 1 Encounter Details Date Type Department Care Team (Latest Contact Info) Description 01/01/2024 8:59 PM NEUROLOGICAL PHYSIOTHERAPIST - 01/11/2024 4:43 PM NEUROLOGICAL PHYSIOTHERAPIST Hospital Encounter [facility], [facility], Fourth Floor [address] [place] [phone] Frank Mccall M.D. [address] [place] [address] Octavio Morton M.B., Ch.B. [address] [place] [phone] Jeremías Fernandez M.D. [address] [place] [phone] Chapito Velazquez D.O. [address] [place] [phone] Fausto Bey M.D. [address] [place] [address] Empyema Pleural (HCC) (Primary Dx); Failure Renal Acute (Acute Kidney Injury) (HCC); Pneumonia Discharge Disposition: Home or Self Care Social History Tobacco Use Types Packs/Day Years Used Date Smoking Tobacco: Never Passive Smoke Exposure: Never Smokeless Tobacco: Never Tobacco Cessation:Counseling Given: No [facility] Utilities Answer Date Recorded In the [...] your living situation today? I have a [facility] place to live 01/10/2024 Sex and Gender Information Value Date Recorded Sex Assigned at Not on file Legal Sex Male 3:31 PM NEUROLOGICAL PHYSIOTHERAPIST Gender Identity Not on file Sexual Orientation Not on file documented as of this encounter Last Filed Vital Signs Vital Sign Reading Time Taken Comments Blood Pressure 111/62 01/11/2024 2:37 PM NEUROLOGICAL PHYSIOTHERAPIST Pulse 122 01/11/2024 2:37 PM NEUROLOGICAL PHYSIOTHERAPIST Temperature 36.5 C (97.7 F) 01/11/2024 2:37 PM NEUROLOGICAL PHYSIOTHERAPIST Respiratory Rate 26 01/11/2024 2:37 PM NEUROLOGICAL PHYSIOTHERAPIST Oxygen Saturation 97% 01/11/2024 2:37 PM NEUROLOGICAL PHYSIOTHERAPIST Inhaled Oxygen Concentration - - Weight 39.9 kg (87 lb 15.4 oz) 01/11/2024 2:12 A M NEUROLOGICAL PHYSIOTHERAPIST Height 170.2 cm (5' 7) 01/01/2024 9:10 PM NEUROLOGICAL PHYSIOTHERAPIST Body Mass Index 13.78 01/01/2024 9:10 PM NEUROLOGICAL PHYSIOTHERAPIST documented in this encounter Discharge Summaries * Jeremías Fernandez M.D. - 01/11/2024 3:07 PM CST DISCHARGE SUMMARY BRIEF OVERVIEW Discharge Hospital: Hospital: [facility] Discharge Provider: Jeremías Fernandez M.D. Discharge Provider Team: [facility] ([facility]) [place] [facility] Primary Care Providers: Tate Bear DO (2022June 2022 - Present) [address] [place], [place] [id number] [place] [address] Admission Date: 01/01/2024 Discharge Date: 01/11/24 PRINCIPAL DIAGNOSIS Right-sided empyema status post thoracentesis and chest tube secondary to Streptococcus anginosus and Streptococcus intermedius Right lower lobe masslike opacity Aspiration ruled out Acute kidney injury on chronic kidney disease stage 3, requiring temporary dialysis Uremia Volume overload Metabolic acidosis SECONDARY DIAGNOSES Chronic diarrhea Severe malnutrition Hypomagnesemia Hypokalemia DISCHARGE DISPOSITION Home-Health Care Sv [6] ACTIVE ISSUES REQUIRING FOLLOW UP INFECTIOUS DISEASES SIGN OFF NOTE Sign off antibiotics: Augmentin oral 500 b.i.d. (based on current creatinine clearance) Tentative stop date stop date: 01/26/2024; final stop date to be determined at follow up visit No PICC line needed Monitoring lab recommendations:No 5. Follow up indicated: Follow up with infectious diseases on 01/26/[address] chest, andCBC, CMP. Nutrition Discharge Plan: Patient was assessed as severely malnourished during this hospitalization based upon the ASPEN criteria. Outpatient follow-up recommended by RDN: Recommend PCP monitor patient and refer for outpatient follow-up with dietitian regarding malnutrition as indicated Primary care: - follow up on symptoms - follow up on blood pressure in clinic ? stopped his blood pressure medication this hospital stay - Ensure patient knows about his follow-ups with Infectious Disease and pulmonology OUTPATIENT FOLLOW UP Scheduled Appointments 01/22/2024 8:[address] [facility] RM 01 Radiology 01/25/2024 1:30 PM LAB 01 [facility] Laboratory Medicine 01/25/2024 2:30 PM Clara Jones P.A.-C. Infectious Diseases 01/25/2024 3:00 PM Fidencio Oliva M.D. Pulmonary Medicine For appointment details refer to your Patient Appointment Guide. TEST RESULTS PENDING AT DISCHARGE Pending Labs Order Current Status Bacterial Culture, Anaerobic + Susceptibility Preliminary result Broad Range Bacteria PCR + Sequencing Preliminary result DETAILS OF HOSPITAL STAY REASON FOR ADMISSION Failure Renal Acute (Acute Kidney Injury) (HCC) HOSPITAL COURSE This is an 83-year-old white male with history of chronic kidney disease, baseline creatinine around 1.9, chronic diarrhea who presented with weakness. He has previously seen in [place] with failure to thrive, chronic cough and poor appetite. He is now so weak he can not get out of bed. Workup done at outside hospital WBC 22, hemoglobin 8.9, potassium 1.9, sodium 124 creatinine 6.3. Patientwas started on cefepime/vancomycin/azithromycin. The outside hospital did not have Nephrology. No room in [facility] so patient was accepted at [facility]. For the renal failure, Nephrology was consulted. The patient had uremic symptoms including metabolic acidosis and electrolyte disturbance. Temporary dialysis access was obtained and the patient's given dialysis between 01/12/2024 and 01/04/2024. No further dialysis as needed per Nephrology and dialysis catheter removed. Patient returned to baseline creatinine. Patient's CT chest had abnormal findings including a right-sided empyema, a possible mass in right lower lobe. Pulmonology consulted. The patient had a thoracentesis on 01/03/2024 and pleural fluid is showing [id number] neutrophils and milky appearance. Pleural fluid growing Streptococcus anginosus on culture, PCR sequencing growing Streptococcus intermedius DNA. Peripheral WBC count is improving with current antimicrobial therapy. Patient had chest tube placement on 01/05/24 and had 90 cc of eben pus drained. Initially on Rocephin and Flagyl, then changed to Unasyn 3 g q.12 hours. Transition to oral Augmentin 500 mg b.i.d. on discharge tentative stop date 01/26/2024. Will follow up with Infectious Diseasewith repeat CT chest and labs on 01/26/2024. Chest tube was removed 01/08/2024. Pulmonology advised no further chest tube. Patient has follow upimaging as above. For his chronic diarrhea, a Whipple's disease PCR was checked and negative. Consider GI referral asan outpatient for EGD versus colonoscopy for diagnostic purposes if not done already. We obtained a video swallow study to rule out silent aspiration as the patient had evidence of someoral tri in his lung cultures. No aspiration was seen. Physical therapy worked with the patient. They advised home PT but patient declined and chose to gohome with family support. He is medically stable for discharge. MEDICATIONS CHANGED DURING THIS HOSPITAL STAY Discharge Medications Stopped Medications losartan-hydroCHLOROthiazide 100-25 mg per tablet Commonly known as: Hyzaar New Medications Sig Disp Start amoxicillin-pot clavulanate 500-125 mg per tablet Commonly known as: Augmentin Take 1 tablet (500 mg total) by mouth 2 (two) times a day for 15 days. 30 tablet gabapentin 300 mg capsule Commonly known as: Neurontin Take 1 capsule (300 mg total) by mouth at bedtime. 30 capsule oxyCODONE 5 mg immediate release tablet Commonly known as: Roxicodone Take 1 tablet (5 mg total) by mouth every 8 (eight) hours as needed for pain Indication: Acute PainException. 10 tablet Medications To Continue Sig Disp Start acetaminophen 500 mg tablet Commonly known as: TylenoL Take 1,000 mg by mouth every 6 (six) hours as needed for pain. atorvastatin 10 mg tablet Commonly known as: Lipitor Take 10 mg by mouth at bedtime. cholecalciferol (vitamin D3) 25 mcg (1,000 Unit) tablet Take 25 mcg by mouth daily. diphenoxylate-atropine 2.5-0.025 mg per tablet Commonly known as: LomotiL Take 1 tablet by mouth 3 (three) times a day as needed for diarrhea. ferrous sulfate 325 mg (65 mg iron) DR tablet Take 1 tablet (65 mg of iron total) by mouth daily. 90 tablet furosemide 20 mg tablet Commonly known as: Lasix Take 60 mg by mouth daily. multivitamin tablet Take 1 tablet by mouth daily. omega-3 fatty acids-fish oil 300-1,000 mg per capsule Take 1 g by mouth daily. UNABLE TO FIND Take 1 each by mouth daily. Med Name: Prostate Complete Zinc, Selenium, Saw Oxford, Lycopene, Turmeric, Resveratrol, Pomegranate Vitamin C 1,000 mg tablet Generic drug: ascorbic acid (vitamin C) Take 1,000 mg by mouth daily. CONSULTS ORDERED DURING THIS ADMISSION IP CONSULT TO CARE MANAGEMENT IP CONSULT TO DIETITIAN IP CONSULT TO CARE MANAGEMENT IP CONSULT TO NEPHROLOGY IP CONSULT TO PULMONARY MEDICINE IP CONSULT TO INFECTIOUS DISEASES Social Determinants of Health Social Drivers of Health Transportation Needs: No Transportation Needs (01/10/2024) PRAPARE - Transportation Lack of Transportation (Medical): No Lack of Transportation (Non-Medical): No Housing Stability: Low Risk (01/10/2024) Housing Stability Housing: Living Situation: I have a steady place to live Food Insecurity: No Food Insecurity (01/10/2024) Hunger Vital Sign Worried About Running Out of Food in the Last Year: Never true Ran Out of Food in the Last Year: Never true Utilities: Not At Risk (01/10/2024) [facility] Utilities Threatened with loss of utilities: No Intimate Partner Violence: Not At Risk (01/10/2024) Humiliation, Afraid, Rape, and Kick questionnaire Fear of Current or Ex-Partner: No Emotionally Abused: No Physically Abused: No Sexually Abused: No CONDITION AT DISCHARGE stable I saw and evaluated Kavon Song today and provided counseling [id number] at bedside. I personally spent a total of 35 minutes in counseling and coordination of care as described above to facilitate the hospital discharge. Discharge instructions were provided to the patient and caregiver(s). OLOGICAL PHYSIOTHERAPIST documented in this encounter Discharge Instructions * Discharge Instr - Diet* Michelle Saha - 01/11/2024 12:45 PM NEUROLOGICAL PHYSIOTHERAPIST Increase nutrition intake with small, frequent meals Medical food supplement(s) of choice OLOGICAL PHYSIOTHERAPIST * Discharge Instr - Non Trejo Follow-Ups* Vesna Koehler - 01/11/2024 3:27 PM NEUROLOGICAL PHYSIOTHERAPIST Reason for Appointment: Post hospital Name of Clinic/Facility:[facility] Follow-up Provider: Tate Bear Type of Appointment: (in person or video):In Person Date/Time of Appointment: Thursday January 18, 2024 at 11:40 am Appointment Location/address: [address] [place], [place] [address]rosalia barclay [facility] [address] Phone number/ contact information for provider: If you need to reschedule please call [phone] OLOGICAL PHYSIOTHERAPIST documented in this encounter Medications at Time of Discharge acetaminophen (TylenoL) 500 mg tablet Take 1,000 mg by mouth every 6 (six) hours as needed for pain. amoxicillin-pot clavulanate (Augmentin) 500-125 mg per tablet Take 1 tablet (500 mg total) by mouth 2 (two) times a day for 15 days. 30 tablet 01/11/2024 4 ascorbic acid, vitamin C, (Vitamin C) 1,000 mg tablet Take 1,000 mg by mouth daily. atorvastatin (Lipitor) 10 mg tablet Take 10 mg by mouth at bedtime. 11/02/2023 cholecalciferol, vitamin D3, 25 mcg (1,000 Unit) tablet Take 25 mcg by mouth daily. diphenoxylate-atr opine (LomotiL) 2.5-0.025 mg per tablet Take 1 tablet by mouth 3 (three) times a day as needed for diarrhea. 06/01/2023 ferrous sulfate 325 mg (65 mg iron) DR tablet Take 1 tablet (65 mg of iron total) by mouth daily. 90 tablet 3 01/28/2023 furosemide (Lasix) 20 mg tablet Take 60 mg by mouth daily. 09/30/2023 gabapentin (Neurontin) 300 mg capsule Take 1 capsule (300 mg total) by mouth at bedtime. 30 capsule 01/11/2024 multivitamin tablet Take 1 tablet by mouth daily. omega-3 fatty acids-fish oil 300-1,000 mg per capsule Take 1 g by mouth daily. oxyCODONE (Roxicodone) 5 mg immediate release tabletIndications :Acute Pain Exception Take 1 tablet (5 mg total) by mouth every 8 (eight) hours as needed for pain Indication: Acute Pain Exception. 10 tablet 01/11/2024 UNABLE TO FIND Take 1 each by mouth daily. Med Name: Prostate Complete Zinc, Selenium, Saw Oxford, Lycopene, Turmeric, Resveratrol, Pomegranate documented as of this encounter Progress Notes * Sharita Julian L.S.W. - 01/11/2024 3:26 PM CST SUBJECTIVE Patient is a 83 y.o. male who was admitted to [facility] 01/01/2024 due to Failure Renal Acute (Acute Kidney Injury) (HCC) [N17.9]. Social work was consulted to coordinate and discuss discharge planning needs. OBJECTIVE Patient Active Problem List Diagnosis Failure Renal Acute (Acute Kidney Injury) (HCC) Pneumonia Mass Lung Hyponatremia Hypokalemia ASSESSMENT / PLAN ASSESSMENT Patient not formally assessed. Care coordination complete with spouse, Viviana. PLAN Patient was initially recommended to discharge to short term rehabilitation or transitional care unit level of care when medically stable. However, due to improvements with physical therapy, recommendations changed to home with home health care physical therapy. Patient and patient's spouse were informed of the discharge recommendations and will follow up with patient's insurance and primary careprovider to discuss further. Patient and patient's spouse want to discharge home. Patient has been medically cleared to discharge home and has been advised of discharge recommendations. Social work will assist as needed and requested. Alan Hawthorne 01/11/24 OLOGICAL PHYSIOTHERAPIST * Antonio Dela Cruz PElielT., D.P.T. - 01/11/2024 2:30 PM CST Physical Therapy Inpatient Treatment Note SUBJECTIVE Patient: Kavon Thomasston Room: [address] [place] [address] Referring/Attending Provider: Jeremías Fernandez M.D. Medical Diagnosis: 1. Empyema Pleural (HCC) 2. Failure Renal Acute (Acute Kidney Injury) (HCC) 3. Pneumonia Payor: ARE / Plan: [employer] HMO / Product Type: HMO / Subjective Comments: Physical therapy attempted twice earlier today, but patient was either attempting door food or eating food. Later this afternoon, patient agreeable to today's session. Patient presents to PT with his son and spouse present in the room. Activity Orders: Nursing Activity Orders (From admission, [...] Precautions Weight Bearing Status: Not applicable Bed Alarm/Suzi: No bed alarm or suzi required Invasive Lines/Drains: Telemetry Oxygen Delivery: Room air OBJECTIVE Patient Presents: seated in the chair Pain Assessment: Pain: Patient denies pain. Adverse Response to Treatment: none Patient tachycardic at rest with heart rate in the 120s at rest rising to 150s with activity. Symptoms of pallor, shortness of breath, lightheadedness, and dizziness monitored throughout the session.No symptoms reported by patient or noted by this account underwriter. Therapeutic Activity: Bed Mobility: Did not occur Transfers: Sit to stand: Supervision, Stand to sit: Supervision Devices used: Front wheeled walker Cuing provided: Verbal and visual cuing for patient to utilize one UE on armrest for force generation and the other UE on the FWW for facilitation of safety/balance. Cues to wait to sit until they feel the chair behind posterior knees and to reach for UE support to control eccentric descent. Gait Assessment: Gait Training: Distance: 36 m Assistance: Supervision Device: Front wheeled walker Quality: Demonstrates adequate stability throughout, although slightly decreased gait velocity. Cueing: none Stairs: Gait on Stairs: 2 steps Assistive Device: Handrail Assistance: Supervision Cueing: Verbal cues/therapist modeling to ascend the stairs with their good leg leading, and descend the stairs with their bad leg leading.-- ???up with the good, down with the bad?? . Patient Disposition at the end of Treatment: was left in bedside chair at end of session with call light within reach. All needs met and questions answered. Patient/caregiver verbalized understanding to contact nursing staff for all needs including transfers and ambulation if appropriate. Assessment Discharge Recommendations: From a physical therapy standpoint, patient would benefit from discharging with home health physical therapy. Barriers to Discharge Home: Current functional status, Safety concerns, Fall risk, Inaccessible home environment Level of Care Needed - PT: Physical assistance needed, Other (Comment) (Initial assistance from spouse and family for safe transition home.) Equipment Recommended - PT: Front-wheeled walker Clinical Impression: Mr. Song is a 83 y.o. male who has been hospitalized 10 day(s) with an admitting diagnosis of: 1. Empyema Pleural (HCC) 2. Failure Renal Acute (Acute Kidney Injury) (HCC) 3. Pneumonia Currently, patient presents with limitations including decreased tolerance for activity, generalized weakness, and impaired balance resulting in decreased independence and safety with functional mobility and transfers. Based on today's PT session, recommending patient perform transfers and mobilitywith use of gait belt, FWW, and SBA x1 for safety optimization in the hospital setting. Significant functional progress made this therapy session as patient was now able to demonstrate ambulation of household distances on top of navigating stairs safely. Patient was able to accomplish both functional Goals without any evidence of gait deviation or instability throughout. In addition to this, patient demonstrates no increased work of breathing or shortness of breath and appeared to demonstrate fair to good tolerance to today's PT session. At the end of today's session, family and patient were educated on this account underwriter's recommendation forunc health physical therapy. Patient and company present were agreeable to today's plan. Patient was also educated on the importance of frequent activity upon discharge home including walking once every hour in order to continue to progress with tolerance to activity and LE strength. Patient and spouse verbalized understanding and all topics covered during today's session. Skilled physical therapy treatment during this hospitalization is medically necessary in order to provide graded activities to promote patients functional return, safety and quality of life with the established rehabilitation goals. Therapy findings and recommendations were discussed with patient, primary service, patient's family, OT, RN, and social work/case management. The treatment plan and discharge recommendations may [...] with Patient Therapeutic Interventions Therapeutic Activity (min): 16 min Time Tracking Total Timed Units (min): 16 min Total Treatment Time (min): 16 min Antonio Dela Cruz P.T., D.P.T. OLOGICAL PHYSIOTHERAPIST * Ora Pathak - 01/11/2024 1:25 PM CST Inpatient Occupational Therapy Treatment SUBJECTIVE Patient: Kavon Thomasston Room: [facility]- Referring/Attending Provider: Jeremías Fernandez M.D. Medical Diagnosis: Failure Renal Acute (Acute Kidney Injury) (HCC) [N17.9] Payor: [facility] / Plan: [facility] HMO / Product Type: HMO / Onset Date: 01/01/2024 Patient/Caregiver Goals: Decrease pain, Return to home, and Return to prior level of function Past Medical / Surgical History: Patient Active Problem List Diagnosis Failure Renal Acute (Acute Kidney Injury) (HCC) Pneumonia Mass Lung Hyponatremia Hypokalemia History reviewed. No pertinent past medical history. History reviewed. No pertinent surgical history. History of Present Illness: Kavon Song is a 83 y.o. male who was admitted to [facility] in [place] on 01/01/2024 due to Failure Renal Acute [...] Assessment: No pain behavior observed Cognition: Alert Transfers: -Sit to stand: SBA -Stand to sit: SBA -Chair to/from bathroom: SBA ADL: -Lower extremity dressing: doff/yeison brief SBA -Grooming/hygiene: hand hygiene SBA standing at sink Patient Disposition: Upon therapist arrival, was seated in chair, family/caregiver was present, [...] occupational therapy standpoint, patient would benefit from STR vs home health with family support, pending stair navigation and mobility with PT . Patient may benefit from assistance with dressing, showering/bathing, transportation, housekeeping,shopping, and meal preparation upon discharge. Clinical Impression: Mr. Song is a 83 y.o. individual who has been hospitalized 10 day(s) with an admitting diagnosis of: Failure Renal Acute (Acute Kidney Injury) (HCC) [N17.9]. Patient was seen for OT treatment on this date, participating in activities as indicated above. Currently, pt presents with impairments including impaired activity tolerance, decreased strength and ROM resulting in the following functional deficits: assistance required to safely complete all ADLs, IADLs, transfers and mobility. Pt seated in chair on approach with family present, agreeable to therapy. STS SBA with FWW. Educated spouse of use of gait belt for additional safety and support with transfers.Transfer from chair tobathroom SBA with FWW. Completed hand hygiene SBA standing at sink. Returned to chair, completed functional reaching activities for 5 mins while standing. Pt practiced raising alternating UE's while reaching outside ROWENA for various items across midline with various heights for functional balance exercise. Fair+ balance noted with FWW. LBD SBA with FWW, pt able to thread BLEs through brief to bothdoff and yeison garment. The pt remained vitally stable throughout the session on room air and had 0 LOB episodes while up. Discharge recommendations will continue to be updated/assessed with performance during therapy. Functional Goals and Timeframes: OT Goal #1: Pt will complete hygiene/grooming tasks while standing at sink using FWW for balance support with min A OT Goal #1 to be achieved by: 01/09/24 OT Goal #1 Status: Achieved OT Goal #2: Pt will complete toileting tasks, including transfer using FWW with min A OT Goal #2 to be achieved by: 01/09/24 OT Goal #2 Status: Ongoing OT Goal #3: Pt will participate in [...] from the hospital Plan for next session: functional mobility Time Spent with Patient Therapeutic Interventions Home Management Training (min): 25 min Time Tracking Total Timed Units (min): 25 min Total Treatment Time (min): 25 min Cosigned by Daksha Ward M.S., O.T. at 01/11/2024 3:48 PM NEUROLOGICAL PHYSIOTHERAPIST OLOGICAL PHYSIOTHERAPIST OLOGICAL PHYSIOTHERAPIST Associated attestation - Daksha Ward M.S., O.T. - 01/11/2024 3:48 PM NEUROLOGICAL PHYSIOTHERAPIST I certify that the above rehabilitation services are required and authorized by me, and that the patient's plan will be reviewed as needed or by end of current plan of care stated. * Michelle Saha - 01/11/2024 12:32 PM CST Clinical Note Types: Reassessment NUTRITION ASSESSMENT Pt reports appetite is better and he is feeling better and better everyday. Pt reports ordering breakfast last night and that someone came an took his order but didn't receive a breakfast tray this morning. Pt didn't have an order in [employer] for breakfast but did have his order him lunch. Pt stated he likes the apple Ensure and drank 100% of it this morning. Pt's was upset about him not getting food this morning. Pt's also stated pt is potentially getting discharged today. Percentage of Meals Eaten for the past 72 hrs: Percent Meals Eaten (%) 01/10/24 0916 75 01/08/242010 Severe Malnutrition (01/02/24) The patient does meet [...] PERTINENT LABS: Last 3 results Lab Units 01/11/24 0448 01/10/24 0625 01/09/24 0642 SODIUM P mmol/L 143 144 141 POTASSIUM P mmol/L 4.3 4.4 4.5 CHLORIDE P mmol/L 110* 111* 108* BUN P mg/dL 33* 38* 41* CREATININE mg/dL 1.74* 1.79* 1.95* PHOSPHORUS INORGANIC P mg/dL 3.1 2.7 2.8 CALCIUM P mg/dL 7.8* 7.8* 8.0* MAGNESIUM RL mg/dL 1.7 1.5* 1.7 ANTHROPOMETRICS Height: 170.2 cm Admission Weight: 63.7 kg Weight: 39.9 kg BMI (Calculated): 13.8 kg/m?? [place] Body Weight (Calculated) : 66.1 kg % [place] Body Weight: 96 % IBW Dietary Orders (From admission, onward) Start Ordered 01/09/24 1104 Oral supplement -Supplement; Ensure Clear (apple); 1 each; Take at: Breakfast, Dinner(Oral Nutrition Supplement) Until discontinued Question Answer Comment Type: Supplement Supplement: Ensure Clear (apple) Size: 1 each Take at: Breakfast Take at: Dinner 01/09/24 1103 01/05/24 1422 Adult Diet Regular (Adult Diet) Diet effective [...] intake with small, frequent meals and/or snacks (Continue sending apple Ensure clear protein supplements on breakfast and lunch tray.) MONITORING AND EVALUATION: Nutrition Monitoring/Evaluation Monitoring: Meals/Supplement Intake, Nausea/Vomiting/Diarrhea, Pertinent Labs, Ascites/Edema, Weight Status Cosigned by Gabrielle Croft RDN, TUTU at 01/11/2024 1:06 PM NEUROLOGICAL PHYSIOTHERAPIST OLOGICAL PHYSIOTHERAPIST OLOGICAL PHYSIOTHERAPIST * Fidencio Oliva M.D. - 01/11/2024 8:50 AM CST PULMONARY CONSULT PROGRESS E-NOTE SUBJECTIVE CHIEF COMPLAINT / REASON FOR CONSULT Empyema Right upper lobe masslike opacity, indeterminate EVENTS: Observed over the weekend following chest tube removal as it did dislodge. Decent evacuation was noted on CT Vital signs stable, on room air His kidney function has improved, he has no longer needed dialysis Seen by ID, plan for Augmentin with stop date 01/25 tentatively planned with follow-up CT ordered OBJECTIVE VITAL SIGNS Current vitals and trends reviewed. DIAGNOSTICS I have reviewed the patient's current laboratory, imaging, and other diagnostic studies. Clinicallysignificant abnormal findings are as follows (including Labs/Cultures/Images/CV+Pulm tests or relevant procedures): White cell count has normalized, anemia noted Creatinine 1.74, improving and albumin 2.4 otherwise LFTs normal Pleural fluid repeat labs highly purulent, pH less than 6.8, initially with Gram-positive cocci many noted and broad range PCR PCR pending Chest x-ray largely unchanged with no major reaccumulation evident ASSESSMENT / PLAN # Pleural empyema right sided with loculations and fissural involvement with +GPC on analysis, probable delayed presentation status post small bore chest tube 01/04 and intrapleural lytic therapy # RLL mass like opacity, pneumonia favored including aspiration pneumonia, rule out neoplasm # sepsis on presentation with severe acidosis # 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 Risks exceed benefits and I suspect we can medically treat this going forward. Given the above I agree with short-term follow-up CT imaging. This is already been planned by ID 01/25, along with a CT chest and antibiotics. I agree with this recommendation. I will arrange pulmonary follow-up since this was a delayed presentation. It is not clear if he truly has any underlying neoplasm or if this is simply infectious process alone. We will sign off, call with questions DNR DNI. Total time spent non-F2F time spent 35 minutes on the same day of encounter. OLOGICAL PHYSIOTHERAPIST * Jeremías Fernandez M.D. - 01/10/2024 12:38 PM CST Images from the original note were not included. Internal Medicine Progress Note Date of Admission: 01/01/2024 LOS: 9 days REASON FOR ADMISSION: Failure Renal Acute (Acute Kidney Injury) (HCC) SUBJECTIVE This is an 83-year-old white male with medical history significant for chronic kidney disease who presented with complaints of generalized body aches, poor appetite and weakness along with chronic watery diarrhea. Patient seen on bedside team rounds. No concern. Interval Updates / 24 Hour Events Yesterday imaging showed partial retraction of chest tube. Discussion machine pulmonology and Interventional Radiology and chest tube was removed. Intake/Output Summary (Last 24 hours) at 01/10/2024 1238 Last data filed at 01/10/2024 0916 Gross per 24 hour Intake 980 ml Output 150 ml Net 830 ml OBJECTIVE VITAL SIGNS BP 114/62 (BP Location: Right arm;Upper, Patient Position: Sitting) Pulse 105 Temp 36.2 ??C (Temporal) Resp 24 Ht 170.2 cm Wt 59.6 kg SpO2 98% BMI 20.60 kg/m?? PHYSICAL EXAMINATION General: Elderly white male no acute distress HEENT: Normocephalic, atraumatic. No scleral icterus. Oral mucosa moist. Neck: Supple. No lymphadenopathy. Cardiovascular: Normal S1/S2. No murmurs. Lungs: Coarse breath sounds Abdomen: Soft, nontender, nondistended. Positive bowel sounds. Extremities: No bilateral lower extremity edema. Neurological: Grossly intact. Intake/Output Summary (Last 24 hours) at 01/10/2024 1238 Last data filed at 01/10/2024 0916 Gross per 24 hour Intake 980 ml Output 150 ml Net 830 ml DIAGNOSTICS Results from last 7 days Lab Units 01/10/24 0625 01/09/24 0642 01/08/24 0447 WBC x10(9)/L 11.6* 11.8* 15.0* HEMOGLOBIN g/dL 8.1* 8.3* 8.7* HEMATOCRIT % 26.3* 26.7* 28.0* PLATELETS AUTO x10(9)/L 254 245 248 Results from last 7 days Lab Units 01/10/24 0625 01/09/24 0642 01/08/24 0447 SODIUM P mmol/L 144 141 140 POTASSIUM P mmol/L 4.4 4.5 4.3 CHLORIDE P mmol/L 111* 108* 107 BICARBONATE PLASMA mmol/L BUN P mg/dL 38* 41* 41* CREATININE mg/dL 1.79* 1.95* 1.98* CALCIUM P mg/dL 7.8* 8.0* 8.1* MAGNESIUM RL mg/dL 1.5* 1.7 1.6* PHOSPHORUS INORGANIC P mg/dL 2.7 2.8 2.1* Results from last 7 days Lab Units 01/10/24 0625 01/09/24 0642 01/08/24 0447 01/07/24 0529 ALBUMIN P g/dL 2.6* 2.5* 2.5* 2.5* AST P U/L ALT P U/L 12 11 12 15 ALK PHOS P U/L 93 98 105 110 BILIRUBIN DIRECT P mg/dL 0.1 0.1 0.1 0.1 BILIRUBIN TOTAL P mg/dL 0.2 0.2 0.2 <0.2 Micro: Results for orders placed or performed [...] 0.5 Susceptible mcg/mL Tigecycline <=0.06 Susceptible mcg/mL Bacterial Culture, Anaerobic + Susceptibility Specimen: Pleural Fluid, Right Specimen Source Site: Fluid Result Value Bacterial Culture, Anaerobic No growth after 7 days of incubation. M tuberculosis Complex PCR Specimen: Pleural Fluid, Right Result Value MTB Complex PCR, Specimen Source Fluid, Pleural Fluid, Right MTB Complex PCR, Result Negative Hepatitis B Surface Antigen Specimen: Blood, Peripheral Draw Result Value HBs Antigen, S Nonreactive HBs Antibody, Serum Specimen: Blood, Peripheral Draw Result Value HBs Antibody, S Negative HBs Antibody, Quantitative, S <3.50 HBc Total Ab, Serum Specimen: Blood, Peripheral Draw Result Value HBc Total Ab, S Negative QuantiFERON-Tb Gold Plus, Blood Specimen: Blood, Venous Result Value QuantiFERON-TB Gold Plus Result Indeterminate (A) TB1 Ag minus Nil Result 0.00 TB2 Ag minus Nil Result 0.00 Mitogen minus Nil Result 0.01 Nil Result 0.04 Bacteria / Cheri Culture, Blood #2 Specimen: Blood, Peripheral Draw Specimen Source Site: Blood Result Value Bacteria/Cheri Culture, Blood No growth after 5 day/s of incubation. Bacteria / Cheri Culture, Blood #1 Specimen: Blood, Peripheral Draw Specimen Source Site: Blood Result Value Bacteria/Cheri Culture, Blood No growth after 5 day/s of incubation. MRSA PCR, Nasal Specimen: Nares; Swab Result [...] Undetected Parainfluenza Undetected Respiratory Syncytial Virus Undetected Bacterial Culture, Aerobic + Susceptibility Specimen: Pleural Fluid Specimen Source Site: Fluid Result Value Bacterial Culture, Aerobic + Susc STREPTOCOCCUS ANGINOSUS GROUP Two Colonies (A) Susceptibility Streptococcus anginosus group - SUSCEPTIBILITY, ROLF (MCG/ML) Penicillin <=0.06 Susceptible mcg/mL Ampicillin <=0.25 Susceptible mcg/mL Cefotaxime <=0.12 Susceptible mcg/mL Ceftriaxone <=0.12 Susceptible mcg/mL Levofloxacin 0.5 Susceptible mcg/mL Moxifloxacin 0.12 Susceptible mcg/mL Erythromycin <=0.12 Susceptible mcg/mL Clindamycin <=0.25 Susceptible mcg/mL Vancomycin 0.5 Susceptible mcg/mL Tigecycline <=0.06 Susceptible mcg/mL Gram Stain Specimen: Pleural Fluid Specimen Source Site: Fluid Result Value Gram Stain White blood cells, Many. (A) Gram Stain GRAM POSITIVE COCCI Many. (A) Tropheryma whipplei PCR, Blood Specimen: Blood, Venous Result Value Specimen Source BLOOD Tropheryma whipplei PCR, B, Result Negative Radiology: DX Chest Portable 1 View Final Result Compared with 01/09/2024, no substantial change in size of the small right pleural effusion with basilar atelectasis. No appreciable pneumothoraces. The left lung remains well aerated. Normal heart size. Degenerative changes both shoulders. DX Chest Portable 1 View Final Result Since 01/08/2024, the right IJ CVC has been removed. The malpositioned right pleural pigtail catheter has been removed. No substantial change in size of the small right pleural effusion with basilar atelectasis. No appreciable pneumothoraces. The left lung remains relatively well aerated. Normal heart size. Aortic calcifications. Degenerative changes both shoulders with superior subluxation suggestive of chronic rotator cuff arthropathy CT Chest without IV Contrast Final Result 1. Loculated right pleural collection with adjacent consolidation or atelectasis in the right lowerlobe. 2. Right chest tube pigtail is positioned at the interface of the pleural space with the adjacent chest wall. Correlation with chest tube function recommended. 3. No fluid collection within the chest wall. Small right chest wall emphysema. DX Chest 1 View Final Result Interval retraction of the right pleural catheter. The pigtail projects over the lateral chest wallsoft tissues and requires correlation with positioning and catheter output. Persisting right pleural effusion/pleural thickening and right basilar airspace opacity. DX Chest 1 View Final Result No significant change. DX Chest 1 View Final Result Since [...] per Echocardiography Contrast Administration Protocol Reference Document [id number] Rev 05/30/2021. Patient met an inclusion criterion [...] atelectasis. Minimal left basilar atelectasis. DX Chest Portable 1 View (Results Pending) DX Chest Portable 1 View (Results Pending) DX Chest Portable 1 View (Results Pending) DX Chest Portable 1 View (Results Pending) DX Chest Portable 1 View (Results Pending) MEDICATIONS: Scheduled Meds: ampicillin-sulbactam, 3 g, intravenous, Q12H LOUANN gabapentin, 100 mg, oral, TID heparin (porcine), 5,000 Units, subcutaneous, Q8H LOUANN Influenza Trivalent High Dose (PF), 0.5 mL, intramuscular, Once sodium chloride, 3 mL, intravenous, Q12H LOUANN Continuous Infusions: PRN Meds: acetaminophen [...] on 01/03/2024 and pleural fluid is showing [id number] neutrophils and milky appearance. Pleural fluid growing Streptococcus anginosus on culture, PCR sequencing growing Streptococcus intermedius DNA. Peripheral WBC count is improving with current antimicrobial therapy. Patient had chest tube placement on 01/05/24 and had 90 cc of eben pus drained. Pulmonary following. On recommendation of pulmonology, requested ID consult. Initially on Rocephin and Flagyl, then changed to Unasyn 3 g q.12 hours. Transition to oral Augmentin 500 mg b.i.d. on discharge tentative stopdate 01/26/2024. Will follow up with Infectious Disease with repeat CT chest and labs on 01/26/2024. Question of partial dislodgement of chest tube 01/08/2024 chest x-ray. Discussed with Radiology andInterventional Radiology and pulmonology. Patient underwent removal of chest tube 01/07 and plan toreimage on 01/10. Most recent chest x-ray 01/08 with good aeration of left lung, no substantial change in size of small right pleural effusion. Rule out aspiration Streptococcus anginosus (normal oral tri) was found in lung fluid, will get CRIME ANALYST to evaluate for aspiration Chronic Diarrhea Patient reports chronic diarrhea around 1 year duration. Whipple PCR ordered by Infectious Disease is negative. Consider GI referral as outpatient EGD versus colonoscopy for diagnostic purposes. Anorexia Patient with poor appetite. Severely malnourished per dietitian. He is motivated to do better and appetite has improved. See dietitian notes. They were doing calorie count, now discontinued. Acute kidney injury on chronic kidney disease stage 3 Uremia Volume overload Metabolic acidosis Nephrology consulted. Patient had uremic symptoms, metabolic acidosis and electrolyte disturbance. Temporary dialysis access obtained and patient given dialysis 01/02/2024-01/04/2024. No further dialysis needed per Nephrology and dialysis catheter removed. Nephrology signed off 01/07. Baseline creatinine 1.9. Lower extremity pain Patient describes chronic pain in feet. Unclear etiology. Pulses are good. Differential might include electrolyte deficiency (patient hypomagnesemic), B vitamin deficiency, neuropathic pain. - start multivitamin - monitor and replace magnesium - initiate low-dose Neurontin 100 mg t.i.d. Hypomagnesemia Hypokalemia Monitor and replace ANTICOAGULANTS/DVT PROPHYLAXIS: AntiCoag AntiPlatelet Meds IP/OP Heparins [...] assessment and treatment plan: Interventions: Medical food supplement (Will d/c calorie count now that intakes are improving. [place] apple ensure clear on breakfast and supper trays daily.) DIET: Current Diet Adult Diet Regular starting at 01/04 1422 INFUSIONS: LDA: Smith Catheter Present?: No. Disposition: Uncertain Anticipated discharge and Disposition: We have a finalized antibiotic plan from Infectious diseases. Chest tube was removed with a plan to revisit with pulmonology 01/11/2024, possibly reimage. If noindication for reinsertion of tube then patient can be discharged. Physical therapy currently recommending short-term rehabilitation. Patient is unsure if he wants todo this. Total time: 52 minutes. OLOGICAL PHYSIOTHERAPIST * Krista Mares M.S., [facility]-CRIME ANALYST - 01/09/2024 11:57 AM CST 01/09/24 1157 Reason Therapy Missed Reason Therapy Missed No visit this date Swallow evaluation to rule out dysphagia-- patient having ongoing, increased secretions. Per RN, this is slightly improved today. RN also noted patient has been tolerating PO medications and PO diet well with no overt s/s of aspiration or penetration. Given this information, opted to hold clinical dysphagia evaluation today and proceed with video swallow study Thursday should secretion burden persist. OLOGICAL PHYSIOTHERAPIST * Olena Ramirez RDN, TUTU - 01/09/2024 11:03 AM CST Clinical Note Types: Reassessment NUTRITION ASSESSMENT Calorie Count Intake for 01/07 Oral Kcal: 747 24 Hr Total Calorie Intake: 747 Comments: Pt is meeting 50% of calorie needs orally. Oral Protein: 45 24 Hr Total Protein Intake: 45 Comments: Pt is meeting 70% of protein needs orally. Pt reports that he did not care for the apple liquacel mixed with the starry last evening. Pt also is not a fan of the unjury. Pt noted appetite has been improving and he was able to consume 100% of breakfast this morning that consisted of an omlet, 2% milk and apple juice. Pt stated he is motivated to eat so he can discharge. Pt is open to trying apple Ensure Clear as he does not tolerate the thicker Ensures and he has been enjoying apple juice being sent. Severe Malnutrition (01/02/24) The patient does meet [...] PERTINENT LABS: Last 3 results Lab Units 11/23/24 0642 01/08/24 0447 01/07/24 0529 SODIUM P mmol/L 141 140 141 POTASSIUM P mmol/L 4.5 4.3 3.3* CHLORIDE P mmol/L 108* 107 105 BUN P mg/dL 41* 41* 41* CREATININE mg/dL 1.95* 1.98* 2.01* PHOSPHORUS INORGANIC P mg/dL 2.8 2.1* 2.5 CALCIUM P mg/dL 8.0* 8.1* 8.1* MAGNESIUM RL mg/dL 1.7 1.6* 1.7 ANTHROPOMETRICS Height: 170.2 cm Admission Weight: 63.7 kg Weight: 30.3 kg Dietary Orders (From admission, onward) Start Ordered 01/09/24 1104 Oral supplement -Supplement; Ensure Clear (apple); 1 each; Take at: Breakfast, Dinner(Oral Nutrition Supplement) Until discontinued Question Answer Comment Type: Supplement Supplement: Ensure Clear (apple) Size: 1 each Take at: Breakfast Take at: Dinner 01/09/24 1103 01/05/24 1422 Adult Diet Regular (Adult Diet) Diet effective now Question: Diet texture: Answer: Regular 01/05/24 1422 NUTRITION DIAGNOSIS: Malnutrition (undernutrition) related to decreased appetite and diarrhea as evidenced by reported weight loss in the past 2 months, decreased appetite, moderate fat and muscle wasting, and noted 3+ edema in bilateral lower extremities. Nutrition Diagnosis Reassessment: Ongoing NUTRITION PLAN AND INTERVENTIONS: Interventions: Medical food supplement (Will d/c calorie count now that intakes are improving. [place] apple ensure clear on breakfast and supper trays daily.) MONITORING AND EVALUATION: Nutrition Monitoring/Evaluation Monitoring: Meals/Supplement Intake, Nausea/Vomiting/Diarrhea, Pertinent Labs, Ascites/Edema, Weight Status OLOGICAL PHYSIOTHERAPIST * Jeremías Fernandez M.D. - 01/09/2024 7:58 AM CST Images from the original note were not included. Internal Medicine Progress Note Date of Admission: 01/01/2024 LOS: 8 days REASON FOR ADMISSION: Failure Renal Acute (Acute Kidney Injury) (HCC) SUBJECTIVE This is an 83-year-old white male with medical history significant for chronic kidney disease who presented with complaints of generalized body aches, poor appetite and weakness along with chronic watery diarrhea. Patient seen on bedside team rounds. Multiple family members present. Interval Updates / 24 Hour Events Yesterday imaging showed partial retraction of chest tube. Discussion machine pulmonology and Interventional Radiology and chest tube was removed. Intake/Output Summary (Last 24 hours) at 01/09/2024 1252 Last data filed at 01/09/2024 0551 Gross per 24 hour Intake 908 ml Output 150 ml Net 758 ml OBJECTIVE VITAL SIGNS BP 110/62 (BP Location: Right arm;Upper, Patient Position: Semi-recumbent) Pulse 95 Temp 37.1 ??C (Temporal) Resp 20 Ht 170.2 cm Wt 30.3 kg SpO2 97% BMI 10.46 kg/m?? PHYSICAL EXAMINATION General: Elderly white male no acute distress HEENT: Normocephalic, atraumatic. No scleral icterus. Oral mucosa moist. Neck: Supple. No lymphadenopathy. Cardiovascular: Normal S1/S2. No murmurs. Lungs: Coarse breath sounds Abdomen: Soft, nontender, nondistended. Positive bowel sounds. Extremities: No bilateral lower extremity edema. Neurological: Grossly intact. Intake/Output Summary (Last 24 hours) at 01/09/2024 1252 Last data filed at 01/09/2024 0551 Gross per 24 hour Intake 908 ml Output 150 ml Net 758 ml DIAGNOSTICS Results from last 7 days Lab Units 01/09/24 0642 01/08/24 0447 01/07/24 1550 01/07/24 0529 WBC x10(9)/L 11.8* 15.0* -- 14.9* HEMOGLOBIN g/dL 8.3* 8.7* 9.1* 8.7* HEMATOCRIT % 26.7* 28.0* -- 26.8* PLATELETS AUTO x10(9)/L 245 248 -- 263 Results from last 7 days Lab Units 01/09/24 0642 01/08/24 04401/07/24 0529 SODIUM P mmol/L 141 140 141 POTASSIUM P mmol/L 4.5 4.3 3.3* CHLORIDE P mmol/L 108* 107 105 BICARBONATE PLASMA mmol/L BUN P mg/dL 41* 41* 41* CREATININE mg/dL 1.95* 1.98* 2.01* CALCIUM P mg/dL 8.0* 8.1* 8.1* MAGNESIUM RL mg/dL 1.7 1.6* 1.7 PHOSPHORUS INORGANIC P mg/dL 2.8 2.1* 2.5 Results from last 7 days Lab Units 01/09/24 0642 01/08/24 0447 01/07/24 0529 ALBUMIN P g/dL 2.5* 2.5* 2.5* AST P U/L 24 26 25 ALT P U/L 11 12 15 ALK PHOS P U/L 98 105 110 BILIRUBIN DIRECT P mg/dL 0.1 0.1 0.1 BILIRUBIN TOTAL P mg/dL 0.2 0.2 <0.2 Micro: Results for orders placed or performed [...] 0.5 Susceptible mcg/mL Tigecycline <=0.06 Susceptible mcg/mL M tuberculosis Complex PCR Specimen: Pleural Fluid, Right Result Value MTB Complex PCR, Specimen Source Fluid, Pleural Fluid, Right MTB Complex PCR, Result Negative Hepatitis B Surface Antigen Specimen: Blood, Peripheral Draw Result Value HBs Antigen, S Nonreactive HBs Antibody, Serum Specimen: Blood, Peripheral Draw Result Value HBs Antibody, S Negative HBs Antibody, Quantitative, S <3.50 HBc Total Ab, Serum Specimen: Blood, Peripheral Draw Result Value HBc Total Ab, S Negative QuantiFERON-Tb Gold Plus, Blood Specimen: Blood, Venous Result Value QuantiFERON-TB Gold Plus Result Indeterminate (A) TB1 Ag minus Nil Result 0.00 TB2 Ag minus Nil Result 0.00 Mitogen minus Nil Result 0.01 Nil Result 0.04 Bacteria / Cheri Culture, Blood #2 Specimen: Blood, Peripheral Draw Specimen Source Site: Blood Result Value Bacteria/Cheri Culture, Blood No growth after 5 day/s of incubation. Bacteria / Cheri Culture, Blood #1 Specimen: Blood, Peripheral Draw Specimen Source Site: Blood Result Value Bacteria/Cheri Culture, Blood No growth after 5 day/s of incubation. MRSA PCR, Nasal Specimen: Nares; Swab Result [...] Undetected Parainfluenza Undetected Respiratory Syncytial Virus Undetected Bacterial Culture, Aerobic + Susceptibility Specimen: Pleural Fluid Specimen Source Site: Fluid Result Value Bacterial Culture, Aerobic + Susc STREPTOCOCCUS ANGINOSUS GROUP Two Colonies (A) Susceptibility Streptococcus anginosus group - SUSCEPTIBILITY, ROLF (MCG/ML) Penicillin <=0.06 Susceptible mcg/mL Ampicillin <=0.25 Susceptible mcg/mL Cefotaxime <=0.12 Susceptible mcg/mL Ceftriaxone <=0.12 Susceptible mcg/mL Levofloxacin 0.5 Susceptible mcg/mL Moxifloxacin 0.12 Susceptible mcg/mL Erythromycin <=0.12 Susceptible mcg/mL Clindamycin <=0.25 Susceptible mcg/mL Vancomycin 0.5 Susceptible mcg/mL Tigecycline <=0.06 Susceptible mcg/mL Gram Stain Specimen: Pleural Fluid Specimen Source Site: Fluid Result Value Gram Stain White blood cells, Many. (A) Gram Stain GRAM POSITIVE COCCI Many. (A) Tropheryma whipplei PCR, Blood Specimen: Blood, Venous Result Value Specimen Source BLOOD Tropheryma whipplei PCR, B, Result Negative Radiology: DX Chest Portable 1 View Final Result Since 01/08/2024, the right IJ CVC has been removed. The malpositioned right pleural pigtail catheter has been removed. No substantial change in size of the small right pleural effusion with basilar atelectasis. No appreciable pneumothoraces. The left lung remains relatively well aerated. Normal heart size. Aortic calcifications. Degenerative changes both shoulders with superior subluxation suggestive of chronic rotator cuff arthropathy CT Chest without IV Contrast Final Result 1. Loculated right pleural collection with adjacent consolidation or atelectasis in the right lowerlobe. 2. Right chest tube pigtail is positioned at the interface of the pleural space with the adjacent chest wall. Correlation with chest tube function recommended. 3. No fluid collection within the chest wall. Small right chest wall emphysema. DX Chest 1 View Final Result Interval retraction of the right pleural catheter. The pigtail projects over the lateral chest wallsoft tissues and requires correlation with positioning and catheter output. Persisting right pleural effusion/pleural thickening and right basilar airspace opacity. DX Chest 1 View Final Result No significant change. DX Chest 1 View Final Result Since [...] per Echocardiography Contrast Administration Protocol Reference Document [id number] Rev 05/30/2021. Patient met an inclusion criterion [...] atelectasis. Minimal left basilar atelectasis. DX Chest Portable 1 View (Results Pending) DX Chest Portable 1 View (Results Pending) DX Chest Portable 1 View (Results Pending) DX Chest Portable 1 View (Results Pending) DX Chest Portable 1 View (Results Pending) DX Chest Portable 1 View (Results Pending) MEDICATIONS: Scheduled Meds: ampicillin-sulbactam, 3 g, intravenous, Q12H [facility] heparin (porcine), 5,000 Units, subcutaneous, Q8H [facility] Influenza Trivalent High Dose (PF), 0.5 mL, intramuscular, Once sodium chloride, 3 mL, intravenous, Q12H [facility] Continuous Infusions: PRN Meds: acetaminophen bisacodyL ipratropium-albuteroL melatonin midodrine naloxone oxyCODONE OR oxyCODONE polyethylene glycol prochlorperazine Edisylate sodium chloride sodium chloride sodium chloride ASSESSMENT / PLAN Leukocytosis with neutrophilia Right sided empyema s/p thoracentesis 01/03/2024 and chest tube on 01/05/2024 Dense rounded mass like and spiculated nodular consolidation in the RLL The patient had a thoracentesis on 01/03/2024 and pleural fluid is showing [id number] neutrophils and milky appearance. Pleural fluid growing Streptococcus anginosus on culture, PCR sequencing growing Streptococcus intermedius DNA. Peripheral WBC count is improving with current antimicrobial therapy. Patient had chest tube placement on 01/05/24 and had 90 cc of eben pus drained. Pulmonary following. On recommendation of pulmonology, requested ID consult. Initially on Rocephin and Flagyl, then changed to Unasyn 3 g q.12 hours. Transition to oral Augmentin 500 mg b.i.d. on discharge tentative stopdate 01/26/2024. Will follow up with Infectious Disease with repeat CT chest and labs on 01/26/2024. Question of partial dislodgement of chest tube 01/08/2024 chest x-ray. Discussed with Radiology andInterventional Radiology and pulmonology. Patient underwent removal of chest tube 01/07 and plan toreimage on 01/10. Most recent chest x-ray 01/08 with good aeration of left lung, no substantial change in size of small right pleural effusion. Rule out aspiration Streptococcus anginosus (normal oral tri) was found in lung fluid, will get CRIME ANALYST to evaluate for aspiration Chronic Diarrhea Patient reports chronic diarrhea around 1 year duration. Whipple PCR ordered by Infectious Disease is negative. Consider GI referral as outpatient EGD versus colonoscopy for diagnostic purposes. Anorexia Patient with poor appetite. Severely malnourished per dietitian. He is motivated to do better and appetite has improved. See dietitian notes. They were doing calorie count, now discontinued. Acute kidney injury on chronic kidney disease stage 3 Uremia Volume overload Metabolic acidosis Nephrology consulted. Patient had uremic symptoms, metabolic acidosis and electrolyte disturbance. Temporary dialysis access obtained and patient given dialysis 01/02/2024-01/04/2024. No further dialysis needed per Nephrology and dialysis catheter removed. Nephrology signed off 01/07. Baseline creatinine 1.9. Hypomagnesemia Hypokalemia Monitor and replace ANTICOAGULANTS/DVT PROPHYLAXIS: AntiCoag AntiPlatelet Meds IP/OP Heparins [...] assessment and treatment plan: Interventions: Medical food supplement (Will d/c calorie count now that intakes are improving. Willsend apple ensure clear on breakfast and supper trays daily.) DIET: Current Diet Adult Diet Regular starting at 01/04 1422 INFUSIONS: LDA: Smith Catheter Present?: No. Disposition: Uncertain Anticipated discharge and Disposition: We have a finalized antibiotic plan from Infectious diseases. Chest tube was removed with a plan to reimage 01/11/2024. If no indication for reinsertion then patient can be discharged. Physical therapy currently recommending short-term rehabilitation. Patient is unsure if he wants todo this. Total time: 56 minutes. OLOGICAL PHYSIOTHERAPIST OLOGICAL PHYSIOTHERAPIST OLOGICAL PHYSIOTHERAPIST * Ora Pathak - 01/08/2024 2:26 PM CST 01/08/24 1426 Reason Therapy Missed Reason Therapy Missed Patient declined therapy Pt declined OT today due to fatigue. Will follow up on next available date. Cosigned by Moriah Washington, O.Sabas at 01/08/2024 3:16 PM NEUROLOGICAL PHYSIOTHERAPIST OLOGICAL PHYSIOTHERAPIST OLOGICAL PHYSIOTHERAPIST Associated attestation - Moriah Washington O.T. - 01/08/2024 3:16 PM NEUROLOGICAL PHYSIOTHERAPIST I certify that the above rehabilitation services are required and authorized by me, and that the patient's plan will be reviewed as needed or by end of current plan of care stated. * Fidencio Oliva M.D. - 01/08/2024 12:39 PM CST PULMONARY CONSULT PROGRESS E-NOTE SUBJECTIVE CHIEF COMPLAINT / REASON FOR CONSULT Empyema Right upper lobe masslike opacity, indeterminate EVENTS: Chest tube decent output however this morning it is nearly outside the chest on x-ray and no longerdraining per rapid response, he had some pain during flushes, a CT has been ordered OBJECTIVE VITAL SIGNS Current vitals and trends [...] noted and broad range PCR PCR pending Chest x-ray and CT reviewed, agree with radiology read there is decent drainage, perhaps a small degree of fluid collection in the right base otherwise fissural fluid has been evacuated. Chest tube is nearly at the chest wall, with some small subcu air, also there is a fair degree of secretions in the right mainstem, trachea favoring mucus ASSESSMENT / PLAN # Pleural empyema right [...] thrive with hypokalemia, hyponatremia # HTN RECOMMENDATIONS: -given the dislodgement of the chest tube and the near full evacuation, reasonable to remove tube and observe particularly with his goals of care. -okay to hold off on x-rays of the weekend, we will plan for repeat x-ray on Thursday and potential CT chest to look for interval change as his history will be limited -consider speech and swallow evaluation, there still remains quite a bit of secretions, he is likely aspirating, encourage pulmonary hygiene and consider starting DuoNebs with arobika DNR DNI. Delayed presentation. Surgical options not consistent with goals of care which is understandable. Hopefully we can evacuate enough fluid for clinical improvement. It is not clear if he trulyhas any underlying neoplasm or if this is simply infectious process alone. I am not available the weekend, however if any pulmonary specific questions arise, consult [facility]. Otherwise will crop picker service on Thursday. Total time spent non-F2F time spent 35 minutes on the same day of encounter. OLOGICAL PHYSIOTHERAPIST * Jet Palomares M.D. - 01/08/2024 11:28 AM CST Hospital Day 7 SUBJECTIVE Interval Events: I saw Mr. Song today. No acute issue OBJECTIVE Admission weight: 63.7 kg Weights for the past 120 hrs (Last 3 readings): Weight 01/08/24 0232 30.3 kg 01/04/24 1746 59.1 kg 01/04/24 1428 61.1 kg I/O 01/05 0000 01/05 2359 01/06 0000 01/06 2359 01/07 0000 01/07 2359 P.O. 720 805 350 Other 140 70 70 Intermittent Medications 100 550 Total Intake(mL/kg) 860 (14.6) 975 (16.5) 970 (32) Urine (mL/kg/hr) 125 (0.1) 0 (0) 0 (0) Stool 0 0 0 Chest Tube 512 280 70 Total Output 637 280 70 Net +223 +695 +900 Unmeasured Urine Occurrence 2 x 2 x 1 x Unmeasured Stool Occurrence 2 x 1 x 1 x VITAL SIGNS Temperature: [36.1 ??C-37 ??C] 36.1 ??C Heart Rate: [85-107] 92 Resp Rate: [20-32] 20 Blood Pressure: (91-123)/(53-79) 123/79 SpO2: [93 %-99 %] 99 % Flow Rate (L/min): [0 L/min] 0 L/min Pulse Rate: [91-108] 92 PHYSICAL EXAMINATION General appearance: alert and oriented Lungs: normal respiratory effort Extremities: no edema Hemodialysis Catheter Right Internal Jugular Double (Active) Placement Date/Time: 01/02/241549 Line Type (REQUIRED): Temporary (non- tunneled, non-implanted) Procedural Pause Completed: Yes Optimal Site Selected: Yes Catheter Time Out Checklist Completed: Yes Hand Hygiene Performed Prior to Insertion: Yes... Number of days: 6 DIAGNOSTICS Results from last 7 days Lab Units 01/08/2444601/07/24 15501/07/24 0529 HEMOGLOBIN g/dL 8.7* 9.1* 8.7* WBC x10(9)/L 15.0* -- 14.9* PLATELETS AUTO x10(9)/L 248 -- 263 Last 2 results Lab Units 01/08/2444601/07/24 0529 SODIUM P mmol/L 140 141 POTASSIUM P mmol/L 4.3 3.3* BICARBONATE PLASMA mmol/L 23 24 BUN P mg/dL 41* 41* CREATININE mg/dL 1.98* 2.01* CALCIUM P mg/dL 8.1* 8.1* PHOSPHORUS INORGANIC P mg/dL 2.1* 2.5 MAGNESIUM RL mg/dL 1.6* 1.7 ASSESSMENT / PLAN # acute kidney injury on chronic kidney disease (baseline creatinine 1.9); received dialysis from 01/02/2024-01/04/2024 # hypokalemia; improved # metabolic acidosis; improved # chronic diarrhea # failure to thrive # Right empyema status post thoracentesis on 01/03/2024 and chest tube placement on 01/05/24; Cultures positive for Streptococcus anginosus group # IgG lambda # hepatomegaly His creatinine was stable around 2.0. We don't anticipate further dialysis need. Ok to remove temporary dialysis cath. Nephrology will sign off. Patient follow- up with Dr. Barrientos in [facility]. OLOGICAL PHYSIOTHERAPIST * Antonio Dela Cruz P.T., D.P.T. - 01/08/2024 11:24 AM CST Physical Therapy Inpatient Treatment Note SUBJECTIVE Patient: Kavon Thomasston Room: [facility]47[facility]- Referring/Attending Provider: Jeremías Fernandez M.D. Medical Diagnosis: 1. Failure Renal Acute (Acute Kidney Injury) (HCC) Payor: [facility] / Plan: [facility] HMO / Product Type: HMO / Subjective Comments: Patient agreeable to today's PT session. Patient presents physical therapy with his daughter and spouse present in the room. Patient reports to be feeling well this date and reports that he woke up in the middle night feeling as if he could walk out of the hospital. Activity Orders: Nursing Activity Orders (From admission, [...] Precautions Weight Bearing Status: Not applicable Bed Alarm/Suzi: No bed alarm or suzi required Invasive Lines/Drains: Telemetry Oxygen Delivery: Room air OBJECTIVE Patient Presents: supine in bed Pain Assessment: Pain: No pain behaviors noted this therapy session. Adverse Response to Treatment: none Symptoms of pallor, shortness of breath, lightheadedness, and dizziness monitored throughout the session. No symptoms reported by patient or noted by this account underwriter. Therapeutic Activity: Bed Mobility: Supine to Sit: Supervision, Contact Guard Assist Devices used: Elevated head of bed Cuing provided: None Transfers: Sit to stand: Contact Guard Assist, Stand to sit: Contact Guard Assist Devices used: Front wheeled walker Cuing provided: Verbal and visual cuing for patient to utilize one UE on bed rail/bed for force generation and the other UE on the FWW for facilitation of safety/balance. Gait Assessment: Gait Training: Distance: 4 m from bed to toilet + 29 m in hallway = 33 m total Assistance: Contact guard assist Device: Front wheeled walker Quality: Decreased gait velocity, but demonstrates adequate stability throughout. [...] 83 y.o. male who has been hospitalized 7 day(s) with an admitting diagnosis of: 1. Failure Renal Acute (Acute Kidney Injury) (HCC) Currently, patient presents with limitations including decreased tolerance for activity, generalized weakness, and impaired balance resulting in decreased independence and safety with functional mobility and transfers. Based on today's therapy session, recommending patient perform transfers and mobility with use of gait belt, FWW, CGA x1. Significant functional progress made this therapy session with the patient and able demonstrate significant increased tolerance to activity by demonstrating significantly further ambulatory bouts. Today's session tony the 1st time patient was able to tolerate ambulating far of to get his hospital room and into the hallway. Throughout, patient demonstrated adequate stability without any overt LOB. Additionally, patient demonstrated fair tolerance to today's therapy session demonstrating no evidence of increased work of breathing or shortness of breath. The patient's significant functional progress, patient's goals were updated from getting to the bedside chair 3 times a day getting out and walking in the hallway with staff 3 times a day. Patient educated on the importance of frequent activity performed throughout the hospital stay. Patient instructed to ambulate with the assistance of staff 3 times per day in the hallway or as tolerated. Patient encouraged to utilize the call light whenever they want to ambulate in the gaspar with staff and before getting up in order to optimize safety in the hospital setting. The ambulatory goal was written on the patient's board in order to act as a visual cue/reminder and facilitate goal tracking. Skilled physical therapy treatment during this hospitalization is medically necessary in order to provide graded activities to promote patients functional return, safety and quality of life with the established rehabilitation goals. Therapy findings and recommendations were discussed with patient, patient's spouse, patient's daughter. The treatment plan and discharge recommendations may [...] with Patient Therapeutic Interventions Therapeutic Activity (min): 24 min Time Tracking Total Timed Units (min): 24 min Total Treatment Time (min): 24 min Antonio Dela Cruz P.T., D.P.T. OLOGICAL PHYSIOTHERAPIST * Michelle Saha - 01/08/2024 10:54 AM CST Calorie Count Intake for 01/07 Oral Kcal: 655 24 Hr Total Calorie Intake: 655 Comments: Meeting 42% of energy needs. Oral Protein: 39 24 Hr Total Protein Intake: 39 Comments: Meet 62% of protein needs. No changes in nutrition care, continue terrie count. Cosigned by Olena Ramirez RDN, LD at 01/08/2024 11:31 AM NEUROLOGICAL PHYSIOTHERAPIST OLOGICAL PHYSIOTHERAPIST OLOGICAL PHYSIOTHERAPIST * Jeremías Fernandez M.D. - 01/08/2024 8:00 AM CST Images from the original note were not included. Internal Medicine Progress Note Date of Admission: 01/01/2024 LOS: 7 days REASON FOR ADMISSION: Failure Renal Acute (Acute Kidney Injury) (HCC) SUBJECTIVE This is an 83-year-old white male with medical history significant for chronic kidney disease who presented with complaints of generalized body aches, poor appetite and weakness along with chronic watery diarrhea. Patient seen on bedside team rounds. No complaints. Interval Updates / 24 Hour Events No events were recorded overnight Intake/Output Summary (Last 24 hours) at 01/08/2024 0800 Last data filed at 01/08/2024 0647 Gross per 24 hour Intake 925 ml Output 210 ml Net 715 ml OBJECTIVE VITAL SIGNS BP 114/62 (BP Location: Right arm;Upper, Patient Position: Lying) Pulse 91 Temp 36.1 ??C (Temporal) Resp 22 Ht 170.2 cm Wt 30.3 kg SpO2 95% BMI 10.46 kg/m?? PHYSICAL EXAMINATION General: Elderly white male no acute distress HEENT: Normocephalic, atraumatic. No scleral icterus. Oral mucosa moist. Neck: Supple. No lymphadenopathy. Cardiovascular: Normal S1/S2. No murmurs. Lungs: Coarse breath sounds Abdomen: Soft, nontender, nondistended. Positive bowel sounds. Extremities: No bilateral lower extremity edema. Neurological: Grossly intact. Intake/Output Summary (Last 24 hours) at 01/08/2024 0800 Last data filed at 01/08/2024 0647 Gross per 24 hour Intake 925 ml Output 210 ml Net 715 ml DIAGNOSTICS Results from last 7 days Lab Units 01/08/24 0447 01/07/24 1550 01/07/24 0529 01/06/24 0537 WBC x10(9)/L 15.0* -- 14.9* 14.3* HEMOGLOBIN g/dL 8.7* 9.1* 8.7* 9.2* HEMATOCRIT % 28.0* -- 26.8* 28.9* PLATELETS AUTO x10(9)/L 248 -- 263 285 Results from last 7 days Lab Units 01/08/2444601/07/24 0529 01/06/24 0537 SODIUM P mmol/L 140 141 142 POTASSIUM P mmol/L 4.3 3.3* 3.3* CHLORIDE P mmol/L 107 105 104 BICARBONATE PLASMA mmol/L 23 24 25 BUN P mg/dL 41* 41* 37* CREATININE mg/dL 1.98* 2.01* 1.91* CALCIUM P mg/dL 8.1* 8.1* 8.4* MAGNESIUM RL mg/dL 1.6* 1.7 1.5* PHOSPHORUS INORGANIC P mg/dL 2.1* 2.5 2.7 Results from last 7 days Lab Units 01/08/2444601/07/24 0529 ALBUMIN P g/dL 2.5* 2.5* AST P U/L 26 25 ALT P U/L 12 15 ALK PHOS P U/L 105 110 BILIRUBIN DIRECT P mg/dL 0.1 0.1 BILIRUBIN TOTAL P mg/dL 0.2 <0.2 Micro: Results for orders placed or performed [...] 0.5 Susceptible mcg/mL Tigecycline <=0.06 Susceptible mcg/mL M tuberculosis Complex PCR Specimen: Pleural Fluid, Right Result Value MTB Complex PCR, Specimen Source Fluid, Pleural Fluid, Right MTB Complex PCR, Result Negative Hepatitis B Surface Antigen Specimen: Blood, Peripheral Draw Result Value HBs Antigen, S Nonreactive HBs Antibody, Serum Specimen: Blood, Peripheral Draw Result Value HBs Antibody, S Negative HBs Antibody, Quantitative, S <3.50 HBc Total Ab, Serum Specimen: Blood, Peripheral Draw Result Value HBc Total Ab, S Negative QuantiFERON-Tb Gold Plus, Blood Specimen: Blood, Venous Result Value QuantiFERON-TB Gold Plus Result Indeterminate (A) TB1 Ag minus Nil Result 0.00 TB2 Ag minus Nil Result 0.00 Mitogen minus Nil Result 0.01 Nil Result 0.04 MRSA PCR, Nasal Specimen: Nares; Swab Result [...] Radiology: DX Chest 1 View Final Result Interval retraction of the right pleural catheter. The pigtail projects over the lateral chest wallsoft tissues and requires correlation with positioning and catheter output. Persisting right pleural effusion/pleural thickening and right basilar airspace opacity. DX Chest 1 View Final Result No significant change. DX Chest 1 View Final Result Since [...] per Echocardiography Contrast Administration Protocol Reference Document [id number] Rev 05/30/2021. Patient met an inclusion criterion [...] intrapleural solution, 10 mg, intrapleural, Q12H [facility] ampicillin-sulbactam, 3 g, intravenous, Q12H dornase ember 5 mg in sterile water intrapleural solution, 5 mg, intrapleural, Q12H [facility] heparin (porcine), 5,000 Units, subcutaneous, Q8H [facility] Influenza Trivalent High Dose (PF), 0.5 mL, intramuscular, Once magnesium sulfate, 1 g, intravenous, Once potassium phosphates, 15 mmol, intravenous, Once sodium chloride, 3 mL, intravenous, Q12H [...] on 01/03/2024 and pleural fluid is showing [id number] neutrophils and milky appearance. Pleural fluid growing Streptococcus anginosus, likely an empyema. Will hold off chest tube since it is a small size. Peripheral WBC count is improving with current antimicrobial therapy. Patient had chest tube placement on 01/05/24 and had 90 cc of eben pus drained. Pulmonary following. On recommendation of pulmonology, requested ID consult. Initially on Rocephin and Flagyl, then changed to Unasyn 3 g q.12 hours. Transitioned to oral Augmentin 500 mg b.i.d. on discharge tentative stop date 01/26/2024. Will follow up with Infectious Disease with repeat CT chest and labs on 01/26/2024. Question of partial dislodgement of chest tube 01/08/2024 chest x-ray. Discussed with Radiology andInterventional Radiology, may need repeat imaging. After discussion with pulmonology, plan will be to remove chest tube 01/07 and reimage on 01/10. Rule out aspiration Streptococcus anginosus (normal oral tri) was found in lung fluid, will get CRIME ANALYST to evaluate for aspiration Chronic Diarrhea Patient reports chronic diarrhea around 1 year duration. Whipple PCR ordered by Infectious Disease.Consider GI consult EGD versus colonoscopy for diagnostic purposes. Anorexia Patient with poor appetite. Severely malnourished per dietitian. Patient not interested in feeding tube on my discussion with him. Dietitian is doing calorie count. Acute kidney injury on chronic kidney disease stage 3 Uremia Volume overload Metabolic acidosis Nephrology consulted. Patient had uremic symptoms, metabolic acidosis and electrolyte disturbance. Temporary dialysis access obtained and patient given dialysis 01/02/2024-01/04/2024. No further dialysis needed per Nephrology and dialysis catheter can be removed. Nephrology signed off 01/07. Hypomagnesemia Hypokalemia Monitor and replace ANTICOAGULANTS/DVT PROPHYLAXIS: AntiCoag AntiPlatelet Meds IP/OP Heparins [...] Liquacel mixed with Starry for HS snack.) DIET: Current Diet Adult Diet Regular starting at 01/04 1422 INFUSIONS: LDA: Smith Catheter Present?: No. Disposition: Uncertain Anticipated discharge and Disposition: We have a finalized antibiotic plan from Infectious diseases. Still has chest tube in place, which is the primary barrier to discharge. Please see pulmonology notes for updates. Total time: 53 minutes. OLOGICAL PHYSIOTHERAPIST OLOGICAL PHYSIOTHERAPIST * Michelle Saha J - 01/07/2024 1:48 PM CST Clinical Note [...] Weight: 59.1 kg BMI (Calculated): 20.4 kg/m?? [place] Body Weight (Calculated) : 66.1 kg % [place] Body Weight: 96 % IBW Dietary Orders (From admission, onward) Start Ordered 01/07/24 1403 Oral supplement -Supplement; Unjury Protein (chicken soup); Take at: Afternoon snack (Oral Nutrition Supplement) Until discontinued Question Answer Comment Type: Supplement Supplement: Unjury Protein (chicken soup) Take at: Afternoon snack 01/07/24 1403 01/05/24 142 Adult Diet Regular (Adult Diet) Diet effective now Question: Diet texture: Answer: Regular 01/05/241421 NUTRITION DIAGNOSIS: Malnutrition (undernutrition) related to decreased [...] Ramirez RDN, LD at 01/07/2024 2:10 PM NEUROLOGICAL PHYSIOTHERAPIST OLOGICAL PHYSIOTHERAPIST OLOGICAL PHYSIOTHERAPIST * Chapito Velazquez D.O. - 01/07/2024 12:06 [...] 0.9% intrapleural solution, 10 mg, intrapleural, Q12H Hazel LEW Sandeep, M.D., 10 mg at 01/07/24 0933 ampicillin-sulbactam [...] injection 5,000 Units, 5,000 Units, subcutaneous, Q8H Donell LEW Bolun, M.D., 5,000 Units at 01/07/24 0523 [...] mL, 3 mL, intravenous, PRN, Fausto Bey M.D. sodium chloride 0.9 % injection 3 mL, 3 mL, intravenous, Q12H [facility]ero Saad S, M.D., 3 mL at 01/07/24 0934 sodium chloride 0.9 % injection 5 mL, 5 mL, miscellaneous, Q12H Hazel LEW Sandeep, M.D., 5 mL at 01/07/24 0934 sodium chloride 0.9 % injection 5 mL, 5 mL, miscellaneous, Q12H Hazel LEW Sandeep, M.D., 5 mL at 01/07/24 0934 OBJECTIVE [...] on 01/03/2024 and pleural fluid is showing [id number] neutrophils and milky appearance. Chronic Diarrhea Patient [...] spent in counseling and coordination of care. OLOGICAL PHYSIOTHERAPIST OLOGICAL PHYSIOTHERAPIST * Antonio Dela Cruz P.T., D.P.T. - 01/07/2024 10:47 AM CST Physical Therapy Inpatient Treatment Note SUBJECTIVE Patient: Kavon Thomasston Room: [address] [place] [address] Referring/Attending Provider: Chapito Velazquez D.O. Medical Diagnosis: 1. Failure Renal Acute (Acute Kidney Injury) (HCC) Payor: [facility] / Plan: [facility] H[employer] / [...] Precautions Weight Bearing Status: Not applicable Bed Alarm/[place]: No bed alarm or suzi required Invasive Lines/Drains: Chest tube(s) and Telemetry [...] around the foot of the bed, this account underwriter received assistance from field staff to follow the patient with the [...] Total Treatment Time (min): 9 min Antonio Thomez, P.T., D.P.T. OLOGICAL PHYSIOTHERAPIST * Sarah Perry M.D. - 01/07/2024 10:19 AM CST Images from the original note were not included. Infectious Diseases [facility] Progress Note SUBJECTIVE REASON FOR CONSULT Infectious Disease Consultation Service is following Kaovn Song for empyema. Patient with a complex [...] Results (from the past 24 hours) [id number] Biodirectionius Test for Pathogen Detection - Miscellaneous Test Collection Time: 01/06/24 11:36 AM Result Value Test Name Aracelis Test for Pathogen Detection Result Specimen sent [...] Value - Date/Time Tropheryma whipplei PCR, Blood [[id number]] Collected: 01/06/24 1136 Lab Status: In process Specimen: Blood, Venous Updated: 01/07/24 0807 Bacterial Culture, Aerobic + Susceptibility [[id number]] (Abnormal) Collected: 01/05/24 1250 Lab Status: Preliminary result Specimen: Pleural Fluid Updated: 01/07/24 0850 Bacterial Culture, Aerobic + Susc STREPTOCOCCUS ANGINOSUS GROUP [place] Gram Stain [[id number]] (Abnormal) Collected: 01/05/24 1250 Lab Status: Final result Specimen: Pleural Fluid Updated: 01/05/24 1446 Gram Stain White blood cells, Many. GRAM POSITIVE COCCI Many. Bacterial Culture, Anaerobic + Susceptibility [[id number]] Collected: 01/05/24 1250 Lab Status: Preliminary result Specimen: Pleural Fluid Updated: 01/07/24 0603 Bacterial Culture, Anaerobic No growth to date. MRSA PCR, Nasal [[id number]] Collected: 01/04/241944 Lab Status: Final result Specimen: Swab from Nares Updated: 01/04/242123 MRSA Screen, Nasal by PCR Negative Bacterial Culture, Aerobic + Susceptibility, Respiratory [[id number]] Collected: 01/04/241944 Lab Status: Final result Specimen: Sputum Updated: 01/06/24 0819 Bacterial Culture, Aerobic, Resp No growth after 2 days of incubation. Gram Stain [[id number]] (Abnormal) Collected: 01/04/241944 Lab Status: Final result Specimen: Sputum Updated: 01/04/24 2040 Gram Stain White blood cells, Many. GRAM POSITIVE COCCI Many. Pneumonia Panel, PCR [[id number]] Collected: 01/04/241944 Lab Status: Final result Specimen: [...] This assay is performed using the FDA-cleared Outski Pneumonia Panel (PN) ([employer] Any initial empiric treatment guidance provided in [...] SARS-CoV-2. Bacteria / Cheri Culture, Blood #1 [[id number]] Collected: 01/03/24 1053 Lab Status: Preliminary result Specimen: Blood, Peripheral Draw Updated: 01/06/24 1105 Bacteria/Cheri Culture, Blood No growth to date. Bacteria / Cheri Culture, Blood #2 [[id number]] Collected: 01/03/24 1052 Lab Status: Preliminary result Specimen: Blood, Peripheral Draw Updated: 01/06/24 1105 Bacteria/Cheri Culture, Blood No growth to date. Hepatitis B Surface Antigen [[id number]] Collected: 01/03/24641 Lab Status: Final result Specimen: Blood, Peripheral Draw Updated: 01/03/24 0807 HBs Antigen, S Nonreactive HBs Antibody, Serum [[id number]] Collected: 01/03/24641 Lab Status: Final result Specimen: [...] Indeterminate >=11.50: Positive HBc Total Ab, Serum [[id number]] Collected: 01/03/24641 Lab Status: Final result Specimen: Blood, Peripheral Draw Updated: 01/04/24 1153 HBc Total Ab, S Negative QuantiFERON-Tb Gold Plus, Blood [[id number]] Collected: 01/03/24641 Lab Status: In process Specimen: Blood, Venous Updated: 01/04/24 105 Narrative: Specimen Information: Specimen ID: [id number] Specimen Type: Blood Specimen Collection Start Date: 01/03/2024 6:42 AM Specimen Received Date: 01/04/2024 10:57 AM Specimen ID: [id number] Specimen Type: Blood Specimen Collection Start Date: 01/03/2024 6:42 AM Specimen Received Date: 01/04/2024 10:57 AM Specimen ID: [id number] Specimen Type: Blood Specimen Collection Start Date: 01/03/2024 6:42 AM Specimen Received Date: 01/04/2024 10:57 AM Specimen ID: [id number] Specimen Type: Blood Specimen Collection Start Date: 01/03/2024 6:42 AM Specimen Received Date: 01/04/2024 10:57 AM Gram Stain [[id number]] (Abnormal) Collected: 01/03/24 06 Lab Status: Final result Specimen: Pleural Fluid, Right Updated: 01/03/24 1733 Gram Stain White blood cells, Many. GRAM POSITIVE COCCI Many. Bacterial Culture, Aerobic + Susceptibility [[id number]] (Abnormal) (Susceptibility) Collected: 01/03/24 06 Lab Status: Final result Specimen: Pleural Fluid, [...] mcg/mL Susceptible Bacterial Culture, Anaerobic + Susceptibility [[id number]] Collected: 01/03/24 0610 Lab Status: Preliminary result Specimen: Pleural Fluid, Right Updated: 01/05/24 1131 Bacterial Culture, Anaerobic No growth to date. Broad Range Bacteria PCR + Sequencing [[id number]] (Abnormal) Collected: 01/03/24 06 Lab Status: Preliminary result Specimen: Pleural Fluid, Right Updated: 01/06/24 1249 Broad Range Bacteria PCR+Sequencing This test was developed and its performance characteristics determined by [facility] in a manner consistent with CLIA requirements. This test has not been cleared or approved by the U.S. Food and Drug Administration. STREPTOCOCCUS INTERMEDIUS DNA detected Comment: Semi-Urgent Result. Semi-Urgent This is a semi-urgent result M tuberculosis Complex PCR [[id number]] Collected: 01/03/24 0610 Lab Status: Final result Specimen: Pleural Fluid, Right Updated: 01/06/24 194 MTB Complex PCR, Specimen Source Fluid, Pleural [...] developed and its performance characteristics determined by [facility] in a manner consistent with CLIA [...] the infection Treatment plan reviewed with Mr. Song, who expressed understanding. All questions answered topatient's [...] #3 Mass Lung #4 Hyponatremia #5 Hypokalemia OLOGICAL PHYSIOTHERAPIST * Portia Ramos M.D., Ph.D. - 01/07/2024 10:05 AM CST Hospital Day 6 SUBJECTIVE Interval Events: I saw Mr. Song today. No acute events. OBJECTIVE Admission weight: 63.7 kg Weights for the past 120 hrs (Last 3 readings): Weight 01/04/24 1746 59.1 kg 01/04/24 1428 61.1 kg 01/04/24 0626 64.8 kg I/O 01/04 0000 01/04 0000 01/06 2359 P.O. 400 720 405 [...] outpatient setting. Kavon agreed with the plan. OLOGICAL PHYSIOTHERAPIST * Sri Renae Pharm.D., R.Ph., [facility] - 01/07/2024 9:29 AM CST Pharmacy Abbreviated [...] to continue HD Please contact pharmacy at [phone] with questions regarding this note. Electronically signed by: Sri Renae, Pharm.D., R.Ph., BCPS 01/07/24 9:29 AM NEUROLOGICAL PHYSIOTHERAPIST OLOGICAL PHYSIOTHERAPIST * Ora Pathak - 01/07/2024 9:12 AM CST Inpatient Occupational Therapy Treatment SUBJECTIVE Patient: Kavon Song Room: [address] [place] [address] Referring/Attending Provider: Chapito Velazquez D.O. Medical Diagnosis: Failure Renal Acute (Acute Kidney Injury) (HCC) [N17.9] Payor: [facility] / Plan: [employer] HMO / Product Type: HMO / Onset [...] 83 y.o. male who was admitted to [facility] in [place] on 01/01/2024 due to Failure Renal Acute [...] (min): 27 min Cosigned by Moriah Washington O.Sabas at 01/07/2024 3:09 PM NEUROLOGICAL PHYSIOTHERAPIST OLOGICAL PHYSIOTHERAPIST OLOGICAL PHYSIOTHERAPIST Associated attestation - Moriah Washington O.Anabella. - 01/07/2024 3:09 PM NEUROLOGICAL PHYSIOTHERAPIST I certify that the above rehabilitation services [...] minutes on the same day of encounter. OLOGICAL PHYSIOTHERAPIST OLOGICAL PHYSIOTHERAPIST * Jeremías Fernandez M.D. - 01/06/2024 4:13 [...] per Echocardiography Contrast Administration Protocol Reference Document [id number] Rev 05/30/2021. Patient met an inclusion criterion [...] LOUANN heparin (porcine), 5,000 Units, subcutaneous, Q8H [facility] Influenza Trivalent High Dose (PF), 0.5 mL, [...] on 01/03/2024 and pleural fluid is showing [id number] neutrophils and milky appearance. Pleural fluid Gram [...] least 4-5 days. Total time: 65 minutes. OLOGICAL PHYSIOTHERAPIST * Antonio Dela Cruz PLuis M, D.P.T. - 01/06/2024 2:34 PM CST Physical Therapy Inpatient Treatment Note SUBJECTIVE Patient: Kavon [place] Room: [address] [place] [address] Referring/Attending Provider: Jeremías Fernandez M.D. Medical Diagnosis: 1. Failure Renal Acute (Acute Kidney Injury) (HCC) Payor: [facility] / Plan: [employer] HMO / Product Type: HMO / Subjective Comments: Physical therapy attempted this morning, but patient declined PT secondary to fatigue. This afternoon, this account underwriter worked with nursing staff transfer the patient [...] goals: With meals Restrictions/Precautions: None Brace/Device: None 11/15/24 2120 Precautions/Restrictions: Fall Precautions Weight Bearing Status: Not applicable Bed Alarm/Suzi: No bed alarm or suzi required Invasive Lines/Drains: Chest tube(s) and Telemetry Oxygen Delivery: Room air OBJECTIVE Patient Presents: On commode Pain Assessment: Pain: No pain behaviors noted this PT session. Adverse Response to Treatment: none Vitals monitored throughout session; within normal ranges. Symptoms of pallor, shortness of breath, lightheadedness, and dizziness monitored throughout the session. No symptoms reported by patient or noted by this account underwriter. Therapeutic Activity: Bed Mobility: Sit to Supine: [...] - PT: Front-wheeled walker Clinical Impression: Mr. Snog is a 83 y.o. male who has [...] (min): 11 min Antonio Dela Cruz P.T., Arlene.P.T. OLOGICAL PHYSIOTHERAPIST OLOGICAL PHYSIOTHERAPIST * Fidencio Oliva M.D. - 01/06/2024 10:35 [...] minutes on the same day of encounter. OLOGICAL PHYSIOTHERAPIST * Portia Ramos M.D., Ph.D. - 01/06/2024 10:20 AM CST Hospital Day 5 SUBJECTIVE Interval Events: I saw Mr. Song today. No acute events. OBJECTIVE Admission weight: 63.7 kg Weights for the past 120 hrs (Last 3 readings): Weight 01/04/24 1746 59.1 kg 01/04/24 1428 61.1 kg 01/04/24 0626 64.8 kg I/O 01/03 0000 01/03 2359 01/04 0000 01/04 2359 01/05 0000 01/05 2359 P.O. 522 400 200 Other 70 Total [...] days Lab Units 01/06/24 0537 01/05/24 0552 HEMOGLOBIN g/dL 9.2* 9.8* WBC x10(9)/L 14.3* 20.1* PLATELETS AUTO x10(9)/L 285 362* Last 2 results Lab Units 01/06/24 0537 01/05/24 0552 SODIUM P mmol/L 142 141 POTASSIUM [...] dietitian consult to improve his nutrition status. OLOGICAL PHYSIOTHERAPIST * Ora Pathak - 01/06/2024 9:50 AM CST Inpatient Occupational Therapy Treatment SUBJECTIVE Patient: Kavon [address] [place] Room: [address] [place] [address] Referring/Attending Provider: Jeremías Fernandez M.D. Medical Diagnosis: Failure Renal Acute (Acute Kidney Injury) (HCC) [N17.9] Payor: [facility] / Plan: [employer] HMO / Product Type: HMO / Onset [...] 83 y.o. male who was admitted to [facility] in [place] on 01/01/2024 due to Failure Renal Acute [...] toilet transfers, shower transfers, medication set up/administration, senior financial, showering/bathing, transportation, housekeeping, shopping, and meal preparation [...] (min): 21 min Cosigned by Moriah Washington O.T. at 01/06/2024 3:56 PM NEUROLOGICAL PHYSIOTHERAPIST OLOGICAL PHYSIOTHERAPIST OLOGICAL PHYSIOTHERAPIST Associated attestation - Moriah Washington O.T. - 01/06/2024 3:56 PM NEUROLOGICAL PHYSIOTHERAPIST I certify that the above rehabilitation services [...] per Echocardiography Contrast Administration Protocol Reference Document [id number] Rev 05/30/2021. Patient met an inclusion criterion [...] on 01/03/2024 and pleural fluid is showing [id number] neutrophils and milky appearance . Pleural fluid [...] Disposition: Pending clinical improvement. Dirk Ortiz, Ch.B. OLOGICAL PHYSIOTHERAPIST OLOGICAL PHYSIOTHERAPIST * Antonio Dela Cruz P.T., D.P.T. - 01/05/2024 3:28 PM CST Physical Therapy Inpatient Treatment Note SUBJECTIVE Patient: Kavon [place] Room: [address] [place] [address] Referring/Attending Provider: Octavio Morton M.B. Medical Diagnosis: 1. Failure Renal Acute (Acute Kidney Injury) (HCC) Payor: [facility] / Plan: [employer] HMO / Product Type: HMO / Subjective [...] Precautions Weight Bearing Status: Not applicable Bed Alarm/[place]: No bed alarm or suzi required Invasive Lines/Drains: Central line/PICC and Chest [...] reported by patient or noted by this account underwriter. Therapeutic Exercise: Patient was educated on how [...] independence and safety with functional mobility and t ransfers. Based on today's therapy session, recommending patient [...] (min): 16 min Antonio Dela Cruz P.T., Arlene.P.T. OLOGICAL PHYSIOTHERAPIST * Fidencio Oliva M.D. - 01/05/2024 2:37 [...] minutes on the same day of encounter. OLOGICAL PHYSIOTHERAPIST * Ora Pathak - 01/05/2024 1:40 PM CST Inpatient Occupational Therapy Treatment SUBJECTIVE Patient: Kavon Song Room: [facility] ROOM* Referring/Attending Provider: Octavio Morton M.B. Medical Diagnosis: Failure Renal Acute (Acute Kidney Injury) (HCC) [N17.9] Payor: [facility] / Plan: [employer] [facility] HMO / Product Type: HMO / Onset [...] 83 y.o. male who was admitted to [facility] in [place] on 01/01/2024 due to Failure Renal Acute [...] toilet transfers, shower transfers, medication set up/administration, senior financial, showering/bathing, transportation, housekeeping, shopping, eating/feeding, and meal [...] (min): 23 min Cosigned by Moriah Washington O.T. at 01/05/2024 3:42 PM NEUROLOGICAL PHYSIOTHERAPIST OLOGICAL PHYSIOTHERAPIST OLOGICAL PHYSIOTHERAPIST Associated attestation - Moriah Washington O.Anabella. - 01/05/2024 3:42 PM NEUROLOGICAL PHYSIOTHERAPIST I certify that the above rehabilitation services [...] 0626 64.8 kg I/O 01/02 0000 01/02 2359 01/03 0000 01/03 0000 01/04 2359 P.O. 450 522 0 Intermittent Medications 200 Total Intake(mL/kg) 650 (10.1) 522 (8.8) 0 (0) Urine (mL/kg/hr) 545 (0.4) 300 (0.2) Other 500 Stool 0 0 Dialysis 980 2000 Total Output 2024 2299 Net -1375 -1778 0 Unmeasured Urine Occurrence 1 x Unmeasured [...] 1.9 mg/dL - established with Dr.Suarez Barrientos [facility] Nephrology 3. Hypokalemia - resolved 4. [...] will continue to follow at this time. OLOGICAL PHYSIOTHERAPIST * Sri Renae, Pharm.D., R.Ph., [facility] - 01/05/2024 11:08 AM CST Pharmacy Abbreviated [...] to continue HD Please contact pharmacy at [phone] with questions regarding this note. Electronically signed by: Sri Renae Pharm.D., R.Ph., BCPS 01/05/24 11:08 AM NEUROLOGICAL PHYSIOTHERAPIST OLOGICAL PHYSIOTHERAPIST * Jennifer Owens M.S., O.T. - 01/04/2024 4:00 PM CST 01/04/24 1600 Reason Therapy Missed Reason Therapy Missed Receiving other care OT treatment not completed as pt was receiving dialysis when attempted this afternoon. Will continue to follow. OLOGICAL PHYSIOTHERAPIST * Portia Ramos M.D., Ph.D. - 01/04/2024 2:56 PM CST Hospital Day 3 SUBJECTIVE Interval Events: I saw Mr. Song today. He is receiving dialysis this afternoon. OBJECTIVE Admission weight: 63.7 kg Weights for the past 120 hrs (Last 3 readings): Weight 01/04/24 1428 61.1 kg 01/04/24 0626 64.8 kg 01/03/24 1100 64.5 kg I/O 01/02 0000 01/02 2359 01/03 0000 01/03 2359 P.O. 450 322 Intermittent [...] anemia workup. He is not iron deficient. OLOGICAL PHYSIOTHERAPIST * Michelle Saha - 01/04/2024 2:03 PM [...] Weight: 64.8 kg BMI (Calculated): 22.4 kg/m?? [place] Body Weight (Calculated) : 66.1 kg % [place] Body Weight: 96 % IBW Dietary Orders [...] Petty RDN, TUTU at 01/04/2024 2:56 PM NEUROLOGICAL PHYSIOTHERAPIST OLOGICAL PHYSIOTHERAPIST OLOGICAL PHYSIOTHERAPIST * Octavio Morton M.B., Ch.B. - 01/04/2024 [...] per Echocardiography Contrast Administration Protocol Reference Document [id number] Rev 05/30/2021. Patient met an inclusion criterion [...] on 01/03/2024 and pleural fluid is showing [id number] neutrophils and milky appearance . Pleural fluid [...] Disposition: Pending clinical improvement. Dirk Ortiz, Ch.B. OLOGICAL PHYSIOTHERAPIST OLOGICAL PHYSIOTHERAPIST OLOGICAL PHYSIOTHERAPIST * Antonio Dela Cruz P.T., D.P.T. - 01/04/2024 10:58 AM CST Physical Therapy Inpatient Treatment Note SUBJECTIVE Patient: Kavon [place] Room: [address] [place] [address] Referring/Attending Provider: Octavio Morton M.B. Medical Diagnosis: 1. Failure Renal Acute (Acute Kidney Injury) (HCC) Payor: [facility] / Plan: [employer] HMO / [...] Precautions Weight Bearing Status: Not applicable Bed Alarm/Suzi: No bed alarm or suzi required Invasive Lines/Drains: None Oxygen Delivery: Room [...] reported by patient or noted by this account underwriter. Therapeutic Activity: Bed Mobility: Supine to Sit: [...] x2 during last PT session. Unfortunately, this account underwriter noted some redness on bilateral posterior aspect of heels and patient verbalizes tenderness/pain to bilateral heels and some pain when sitting on his buttocks. This account underwriter educated the patient on the Prevalon heel offloading boots and this account underwriter donned boots bilaterally.Nursing staff was notified of patient's buttock pain and noted redness on heels. This account underwriter also placed a Gel-Foam cushion in the patient's seat to help with buttock pain/pressure. With heels independent position, patient reported that he was comfortable and was able to tolerate sitting. This account underwriter recommended patient remained sitting upright for 30-60 [...] 28 min Antonio Dela Cruz P.T., D.P.T. OLOGICAL PHYSIOTHERAPIST * Sri Renae, Sivakumar., R.Ph., [facility] - 01/04/2024 10:06 AM CST Pharmacy Targeted [...] improvement (5-7 day) Please contact pharmacy at [phone] with questions regarding this note. Electronically signed by: Sri Renae Pharm.D., R.Ph., BCPS 01/04/24 10:06 AM NEUROLOGICAL PHYSIOTHERAPIST OLOGICAL PHYSIOTHERAPIST * Giulia Hughes, R.Ph. - 01/04/2024 9:09 AM CST Images from the original note were not included. Admission Medication History Note Adherence issues: No concerns Medication list source: Patient, Family member, and Pharmacy or dispense records Medication related information: Prior to Admission Medications Med List Status: Pharmacy/RN Complete Set By: Giulia Hughes, R.Ph. at 01/04/2024 9:08 AM Taking? Last [...] Med Name: Prostate Complete Zinc, Selenium, Saw [place], Lycopene, Turmeric, Resveratrol, Pomegranate OLOGICAL PHYSIOTHERAPIST * Jet Palomares M.D. - 01/03/2024 11:09 [...] Right Internal Jugular Double (Active) Placement Date/Time: 01/02/241549 Line Type (REQUIRED): Temporary (non- tunneled, non-implanted) [...] morning. Suggest to check BMP this afternoon. OLOGICAL PHYSIOTHERAPIST * Gayla Watson L.S.W. - 01/03/2024 11:02 AM CST SUBJECTIVE Patient is a 83 y.o. male who was admitted to [facility] 01/01/2024 due to Failure Renal Acute (Acute [...] nursing and the provider during these times. Logging Worker placed a call to patients Viviana to discuss short term rehab referrals. Viviana stated isn't rehab a little bit premature?. Logging Worker educated Viviana on hospital policy and [facility]. Viviana informed account underwriter that patient will not be going to any [facility] facilities, nor will he be going to a facility in [place]. Viviana remained hesitant to provide referrals. Viviana reports she would be interested in [facility] in [place]. Viviana requests account underwriter to meet with her tomorrow, when she will be at the hospital with patient. Logging Worker placed referrals. Destination - Admitted Since 01/01/2024 Service Provider Request Status Services Address Phone Fax Patient Preferred [facility] Pending - Request Sent -- [phone] [address] [phone] -- [facility] Pending - Request Sent -- [phone] [facility] [phone] -- PLAN Social work will assist as needed and requested. Alan Awan 01/03/24 OLOGICAL PHYSIOTHERAPIST * Octavio Morton M.B., Ch.B. - 01/03/2024 [...] Disposition: Pending clinical improvement. Dirk Ortiz, Ch.B. OLOGICAL PHYSIOTHERAPIST OLOGICAL PHYSIOTHERAPIST * Octavio Morton M.B., B. - 01/02/2024 11:23 AM CST Internal Medicine [...] improvement. Continue to monitor in the PCU OLOGICAL PHYSIOTHERAPIST OLOGICAL PHYSIOTHERAPIST * Deanna Lewis APRN, C.N.P., D.N.P., M.S.N. - 01/02/2024 1:06 AM NEUROLOGICAL PHYSIOTHERAPIST OVERNIGHT EVENT Date of Admission: 01/01/2024 Mr. [...] with associated atelectasis. Minimal left basilar atelectasis. OLOGICAL PHYSIOTHERAPIST OLOGICAL PHYSIOTHERAPIST OLOGICAL PHYSIOTHERAPIST * Clemencia Sim Pharm.D., R.Ph. - 01/01/2024 11:13 PM CST Vancomycin [...] consulted for FRANCISCO/possible dialysis. Electronically signed by: Lauraamanda Sim Pharm.D., R.Ph. 01/01/24 11:20 PM NEUROLOGICAL PHYSIOTHERAPIST Addendum: Vanco discontinued Electronically signed by: Jessika Restrepo Pharm.D., R.Ph. 01/02/24 10:27 AM NEUROLOGICAL PHYSIOTHERAPIST OLOGICAL PHYSIOTHERAPIST OLOGICAL PHYSIOTHERAPIST OLOGICAL PHYSIOTHERAPIST documented in this encounter H&P Notes * Fausto Bey M.D. - 01/01/2024 9:21 PM CST Kavon [place] [phone] SUBJECTIVE CHIEF COMPLAINT Failure to thrive and general weakness HISTORY OF PRESENT ILLNESS This is a 83yo gentleman with history of chronic kidney disease (baseline Cr 1.9), chronic diarrheapresented with progressive weakness. He arrives to the [facility] ED with a failure to thrive this [...] Would be ok with short term hemodialysis [facility] does not have nephrology available. Previously seen by [facility] Dr. Floyd Jose in 2023, but [facility] did not have Med/Surg/PCU Bed Capacity at this time. Case was discussed with nephrology in [place], who agreed with transfer to [facility] for further management. PAST MEDICAL HISTORY: Patient [...] Insecurity: No Food Insecurity (07/17/2022) Received from [facility], [facility] Food Insecurity Worried About Running Out of Food in the Last Year: 1 Transportation Needs: No Transportation Needs (07/17/2022) Received from [facility], [facility] Transportation Needs Lack of Transportation (Medical): 1 Intimate Partner Violence: Not on file Housing Stability: Low Risk (07/17/2022) Received from [facility], [facility] Housing Stability Unable to Pay for Housing in the Last Year: 1 REVIEW OF SYSTEMS Constitutional: Positive for fatigue and loss of appetite. Respiratory: Positive for coughing up mucus (phlegm). The following systems were negative: Cardiovascular, Gastrointestinal, Genitourinary, Neurological,Psychiatric OBJECTIVE VITAL SIGNS Vitals: 01/01/24 2110 BP: 114/69 Temp: (!) 35.8 ??C Vitals [...] 6.3 (baseline 1.9). Plan: Nephrology consulted Monintor LUCY Avoid nephrotoxic agents Strict I/Os Bladder scan [...] Dispo: Pending medical stabiliztion. Fausto Bey M.D. OLOGICAL PHYSIOTHERAPIST documented in this encounter Procedure Notes * [...] Events: none Patient tolerance of procedure: successful OLOGICAL PHYSIOTHERAPIST documented in this encounter Consult Notes * Krista Mares M.S., [facility] - 01/11/2024 1:00 PM CST Speech-Language Pathology Videofluoroscopic Swallow Study Inpatient Patient Active Problem List Diagnosis Failure Renal Acute (Acute Kidney Injury) (HCC) Pneumonia Mass Lung Hyponatremia Hypokalemia History reviewed. No pertinent surgical history. Current Diet Current Diet Adult Diet Regular starting at 01/04 1422 General Family/Caregiver Present: No Arousal/Alertness: Appropriate responses to stimuli Current Vision: No visual deficits Hearing: Within Normal Limits (WNL) Behavior: Cooperative, Alert Baseline Dysphagia: Within Normal Limits (WNL) Respiratory Status: Room air Tracheostomy: No History of Intubation: No Premorbid Nutrition Method: Oral Premorbid Liquid Diet: IDDSI Level 0 Thin Premorbid/Current Diet: IDDSI Level 7 Regular Current Nutrition Method: Oral Current Diet Liquid: IDDSI Level 0 Thin Current Diet: IDDSI Level 7 Regular Patient Positioning: Upright in chair Baseline Vocal Quality: Normal, Dysphonic Pain Pain Assessment Pain Assessment: FACES Pain Scale-Revised Faces Pain Scale: 0 Oral / Motor Dentition: Adequate OBJECTIVE Flowsheet Row Most Recent Value Consistencies Assessed (MBS) Consistencies Assessed Yes Level 0 Thin Penetration/Aspiration Scale 1: Material does not enter airway Level 4 Puree Penetration/Aspiration Scale 1: Material does not enter airway Level 7 Regular Penetration/Aspiration Scale 1: Material does not enter airway POSITIONING & CONSISTENCIES: Patient was seated in the VESS chair at a 90 degree angle. Lateralviews of the oral, nasal, and pharyngeal cavities were obtained. Patient was given cup and straw drinks of thin liquid barium, 1 tsp pudding barium and 3/4 tsp joey cracker coated in pudding barium. ORAL STAGE: Within functional limits. Anticipation was appropriate. Lip closure was adequate, with no anterior spillage observed. Bolus containment was adequate, with no premature spillage observed. Mastication and bolus preparation was functional with regular solids. Anterior to posterior lingual motion and bolus transport were timely and efficient. No significant oral residue remained after theswallows. PHARYNGEAL STAGE: Within functional limits. The pharyngeal swallow trigger was timely. Soft palate elevation was adequate. Epiglottic inversion was complete. Base of tongue observed to contact the posterior pharyngeal wall at maximal retraction. Pharyngeal contraction and stripping wave judged to be adequate. Laryngeal elevation, arytenoid approximation to base of epiglottis, and anterior hyoid excursion were judged to be adequate. Complete closure of the laryngeal vestibule achieved at the height of the pharyngeal swallow. Relaxation through the cricopharyngeal segment was adequate. No aspiration or penetration observed with any given texture/consistency. No significant pharyngeal residue post- swallow of any texture/consistency presented. RISK OF ASPIRATION: Low IMPRESSIONS: Overall, patient presents with oropharyngeal swallow function to be within functional limits. No aspiration or penetration observed with any given consistency. No significant post-swallow residue with any trials presented. Ok to continue diet of regular textures, thin liquids. Likely d/c today. No further CRIME ANALYST needs on inpatient or outpatient basis. PLAN CRIME ANALYST Ongoing Services: Ongoing formal Speech Pathology services not indicated at this time: follow written home program Rehab Potential: Excellent Re-evaluate: Upon decline in status Diet Recommendations - Solids: IDDSI Level 7 Regular Diet Recommendations - Liquids: IDDSI Level 0 Thin Compensatory Swallowing Strategies: Upright as possible for all oral intake Please refer to OT and/or PT notes for potential additions to discharge recommendations. EDUCATION: Educated patient and caregivers regarding results of videofluoroscopic swallowing evaluation, diet recommendations and swallowing strategies, additional CRIME ANALYST needs warranted. GOALS Dysphagia Usp Goal Dysphagia Usp Goal: Maintain adequate nutrition/hydration via PO intake without pulmonary decline Dysphagia Industrial Organizational Psychologist Goal Progress Toward Goal: Progress toward goal completion: continue on target Time Spent with Patient 30 Minutes Electronically signed by: Krista Mares M.S., CCC-CRIME ANALYST 01/11/24 1:23 PM NEUROLOGICAL PHYSIOTHERAPIST OLOGICAL PHYSIOTHERAPIST * Sarah Perry M.D. - 01/06/2024 10:42 AM CSTAssociated Order(s): IP CONSULT TO INFECTIOUS DISEASES Images from the original note were not included. Infectious Diseases [place] [employer] CONSULT NOTE SUBJECTIVE CHIEF COMPLAINT/REASON [...] It is at home with , from [place], [place]. No recent travel, obvious sick contacts. 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 The following portions of the patient's history [...] - Date/Time Bacterial Culture, Aerobic + Susceptibility [[id number]] Collected: 01/05/24 1250 Lab Status: Preliminary result Specimen: Pleural Fluid Updated: 01/06/24 0627 Bacterial Culture, Aerobic + Susc No growth to date Gram Stain [[id number]] (Abnormal) Collected: 01/05/24 125 Lab Status: Final result Specimen: Pleural Fluid Updated: 01/05/24 1446 Gram Stain White blood cells, Many. GRAM POSITIVE COCCI Many. Bacterial Culture, Anaerobic + Susceptibility [[id number]] Collected: 01/05/24 125 Lab Status: In process Specimen: Pleural Fluid Updated: 01/05/24 1348 MRSA PCR, Nasal [[id number]] Collected: 01/04/241944 Lab Status: Final result Specimen: Swab from Nares Updated: 01/04/244 MRSA Screen, Nasal by PCR Negative Bacterial Culture, Aerobic + Susceptibility, Respiratory [[id number]] Collected: 01/04/241944 Lab Status: Final result Specimen: Sputum Updated: 01/06/24 0819 Bacterial Culture, Aerobic, Resp No growth after 2 days of incubation. Gram Stain [[id number]] (Abnormal) Collected: 01/04/241944 Lab Status: Final result Specimen: Sputum Updated: 01/04/24 2040 Gram Stain White blood cells, Many. GRAM POSITIVE COCCI Many. Pneumonia Panel, PCR [[id number]] Collected: 01/04/241944 Lab Status: Final result Specimen: Sputum Updated: 01/04/24 224 Specimen Source SPUTUM Acinetobacter calcoaceticus-baumannii complex Undetected [...] This assay is performed using the FDA-cleared OrthoScanArray Pneumonia Panel (PN) ([employer] Any initial empiric treatment guidance provided in [...] SARS-CoV-2. Bacteria / Cheri Culture, Blood #1 [[id number]] Collected: 01/03/24 1053 Lab Status: Preliminary result Specimen: Blood, Peripheral Draw Updated: 01/05/24 1105 Bacteria/Cheri Culture, Blood No growth to date. Bacteria / Cheri Culture, Blood #2 [[id number]] Collected: 01/03/24 1052 Lab Status: Preliminary result Specimen: Blood, Peripheral Draw Updated: 01/05/24 1105 Bacteria/Cheri Culture, Blood No growth to date. Hepatitis B Surface Antigen [[id number]] Collected: 01/03/2442 Lab Status: Final result Specimen: Blood, Peripheral Draw Updated: 01/03/24 0807 HBs Antigen, S Nonreactive HBs Antibody, Serum [[id number]] Collected: 01/03/2442 Lab Status: Final result Specimen: Blood, Peripheral [...] Indeterminate >=11.50: Positive HBc Total Ab, Serum [[id number]] Collected: 01/03/24641 Lab Status: Final result Specimen: Blood, Peripheral Draw Updated: 01/04/24 1153 HBc Total Ab, S Negative QuantiFERON-Tb Gold Plus, Blood [[id number]] Collected: 01/03/24641 Lab Status: In process Specimen: Blood, Venous Updated: 01/04/24 1057 Narrative: Specimen Information: Specimen ID: [id number] Specimen Type: Blood Specimen Collection Start Date: 01/03/2024 6:42 AM Specimen Received Date: 01/04/2024 10:57 AM Specimen ID: [id number] Specimen Type: Blood Specimen Collection Start Date: 01/03/2024 6:42 AM Specimen Received Date: 01/04/2024 10:57 AM Specimen ID: [id number] Specimen Type: Blood Specimen Collection Start Date: 01/03/2024 6:42 AM Specimen Received Date: 01/04/2024 10:57 AM Specimen ID: [id number] Specimen Type: Blood Specimen Collection Start Date: 01/03/2024 6:42 AM Specimen Received Date: 01/04/2024 10:57 AM Gram Stain [[id number]] (Abnormal) Collected: 01/03/24609 Lab Status: Final result Specimen: Pleural Fluid, Right Updated: 01/03/24 1733 Gram Stain White blood cells, Many. GRAM POSITIVE COCCI Many. Bacterial Culture, Aerobic + Susceptibility [[id number]] Collected: 01/03/24609 Lab Status: Preliminary result Specimen: Pleural Fluid, Right Updated: 01/04/24 1129 Bacterial Culture, Aerobic + Susc No growth to date Bacterial Culture, Anaerobic + Susceptibility [[id number]] Collected: 01/03/24609 Lab Status: Preliminary result Specimen: Pleural Fluid, Right Updated: 01/05/24 1131 Bacterial Culture, Anaerobic No growth to date. Broad Range Bacteria PCR + Sequencing [[id number]] Collected: 01/03/24 06 Lab Status: In process Specimen: Pleural Fluid, Right Updated: 01/04/24 1000 M tuberculosis Complex PCR [[id number]] Collected: 01/03/24 0610 Lab Status: In process Specimen: Pleural Fluid, [...] #3 Mass Lung #4 Hyponatremia #5 Hypokalemia OLOGICAL PHYSIOTHERAPIST * Carolyn Castro - 01/05/2024 12:51 PM CSTAssociated Order(s): IP CONSULT TO CARE MANAGEMENT; IP CONSULT TO CARE MANAGEMENT Psychosocial Assessment SUBJECTIVE Assessment Information Referral Source: Provider/Service Referral Reason: Psychosocial assessment 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 They have3 children together. Citizenship: [place] Citizen Resident Status: [place] Resident Marital Status: Family / Household: Patient lives with his , Viviana in their private home in [place], [place]. Their son, Everton has been very involved and lives close by in [place]. Their daughter, Giulia lives in [place] and other son lives a couple hours away from [place] [facility] [place] 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 Psychosocial Risk Factors Impacting the Patient: none Current Stressors Hospitalization Coping Skills/Strengths Support from family, son- Everton Financial/Insurance Primary insurance: [employer] [facility] Secondary insurance: N/A Advance Directives Legal Decision Maker: Self Advance Directives: N/A Advance Directives Status: Not Activated Baseline Functional Status Baseline Activities of Daily Living Mobility: Requires aide of device Dressing: Needs assistance Feeding: Independent Bathing: Needs assistance Grooming: Independent Toileting: Independent Behavior: Pleasant, Calm, Cooperative, Oriented Communication: Talks, Understands speaking, Understands Kosovan, Deaf/hard of hearing Shopping: Dependent Medication Management: [...] Transportation Needs: Wheelchair van Anticipated Discharge Destination: [facility] OBJECTIVE Substance Abuse Patient report no illicit drug, alcohol, or tobacco use currently or in the past. Mental Health Mental Health History: Patient reports no mental health history Patient reports no current concerns Mental Health Treatment History No history of Psychiatric Treatment noted Suicide Risk and Safety Risk Assessment: C-SSRS Short Version: [place] Suicide Severity Rating Scale (C-SSRS) - Short [...] for treatment: Adequate ASSESSMENT / PLAN Discussion aids social worker met with patient, , and son, Everton to introduce self/role in the care management [...] not doing well. Social work spoke with , Viviana and educated her of short term rehab recommendation and inquiredof her thoughts. She asked how long patient may be there and what home health could offer as well. Social work educated her of differences and printed off short term rehab options for her near their home in [place], [place]. Also provided this account underwriter's contact information. Inquired with of request of options; however, she did not want to give this account underwriter options at this time. Stated she wanted tolook it over and follow up later. Interventions Psychosocial assessment completed. Provided supportive services. Provided education regarding the role of social work. Provided education regarding referral resources and options. Provided [facility] Discharge Folder. A list of agencies within the area that patient/family geographically resides or requests has been provided to and reviewed with patient/family. [facility] of [facility] was provided to and acknowledged by patient/family. Plan Social work to inquire with , Viviana again regarding short term rehab choices. Social work to inquire with patient of short term rehab choices when able. Likely will need wheelchair transportation arranged at discharge-- has ARE insurance. Toma Castro 01/05/2024 OLOGICAL PHYSIOTHERAPIST * Fidencio Oliva M.D. - 01/04/2024 6:34 [...] pneumonia, effusion, and lung mass. Transferred to [facility] HD placed, empiric antibiotics for pneumonia. Underwent [...] minutes on the same day of encounter. OLOGICAL PHYSIOTHERAPIST OLOGICAL PHYSIOTHERAPIST * Jet Palomares M.D. - 01/02/2024 4:51 [...] of 1.9 to 6.3 at ED in [place]. He was transferred to [facility] for further management. At admission, his lab [...] past 120 hrs (Last 3 readings): Weight 01/02/24 0414 63.4 kg 01/01/24 2110 63.7 kg I/O last 3 completed shifts: [...] and haveanswered all of the patient's questions. OLOGICAL PHYSIOTHERAPIST * Debora Parr PLuis M, D.P.T. - 01/02/2024 3:21 PM CST Inpatient Physical Therapy Evaluation and Treatment SUBJECTIVE Patient: Kavon Jacobs [place] Room: [facility]4737- Referring/Attending Provider: Octavio Morton M.B. Medical Diagnosis: 1. Failure Renal Acute (Acute Kidney Injury) ([facility]) Payor: [facility] / Plan: [facility] HMO / Product Type: HMO [...] Isolation Weight Bearing Status: Not applicable Bed Alarm/Suzi: No bed alarm or suzi required Invasive Lines/Drains: Multiple lines/drains Oxygen Delivery: [...] Stairs : Did not occur Outcome Measures: [facility] Basic Mobility (V.2) How much help from [...] Climbing 3-5 steps with a railing?: Total [facility] Basic Mobility (V.2) Raw Score: 11 [facility] Basic Mobility (V.2) Standardized Score: 30.25 According [...] including transfers and ambulation if appropriate. Contacted aids social worker, skating rink manager, Caregiver, and Occupational therapist regarding discharge/safety [...] (min): 25 min Debora Parr P.T., D.P.T. [facility], Fourth Floor [address] [facility] [address] Dept: [phone] OLOGICAL PHYSIOTHERAPIST * Jennifer Owens M.S., O.T. - 01/02/2024 2:15 PM CST Inpatient Occupational Therapy Evaluation and Treatment SUBJECTIVE Patient: Kavon Song Room: 473/4737- Referring/Attending Provider: Octavio Morton M.B. Medical Diagnosis: Failure Renal Acute (Acute Kidney Injury) (HCC) [N17.9] Payor: [facility] / Plan: [employer] FOR [facility] HMO / Product Type: HMO / Reason [...] 83 y.o. male who was admitted to [facility] in [place] on 01/01/2024 due to Failure Renal Acute [...] Isolation Weight Bearing Status: Not applicable Bed Alarm/[place]: No bed alarm or suzi required Invasive Lines/Drains: Multiple lines/drains Oxygen Delivery: [...] Standardized Score: 33.39 Interpretation: Clinicians answer the -[facility] Inpatient Short Form based on observed patient [...] safety during session. Contacted patient's nurse and social media intern regarding discharge/safety recommendations and patient's status during therapy session Assessment Discharge Recommendations: From an occupational therapy standpoint, patient would benefit from discharging to short term rehabto continue with occupational therapy. Patient may benefit from assistance with toileting, dressing, toilet transfers, shower transfers, medication set up/administration, senior financial, showering/bathing, transportation, housekeeping, shopping, eating/feeding, and meal [...] Tracking Total Treatment Time (min): 22 min OLOGICAL PHYSIOTHERAPIST * Gabrielle Croft RDN, [facility] - 01/02/2024 12:16 PM CSTAssociated Order(s): Dietitian Consult (Hospital) Dietitian Consult (Hospital) Referring Provider: Practiceadvisory, Automatedrequest Clinical Note Types: [...] Weight: 63.4 kg BMI (Calculated): 21.9 kg/m?? [place] Body Weight (Calculated) : 66.1 kg % [place] Body Weight: 96 % IBW ESTIMATED NEEDS: [...] oral or enteral nutrition Diet effective midnight 01/01/24 2120 NUTRITION DIAGNOSIS: Malnutrition (undernutrition) related to decreased [...] Meals/Supplement Intake, Weight Status, Pertinent Labs, Nausea/Vomiting/Diarrhea OLOGICAL PHYSIOTHERAPIST documented in this encounter Nursing Notes * Salina Yu R.N. - 01/11/2024 3:16 PM CST End of Shift Summary: swallow study negative for aspiration, CT chest pending, walked in hallways with OT and climbed stairs, repeat hemoglobin stable, family present at the bedside, will DC today. Electronically signed by: Salina Yu R.N. 01/11/24 3:17 PM NEUROLOGICAL PHYSIOTHERAPIST OLOGICAL PHYSIOTHERAPIST * Margy Waters R.N. - 01/11/2024 6:52 AM CST Shift Goals: Clinical Goals for the Shift: VSS, Safety, Rest Identify possible barriers to meeting goals/advancing plan of care: none End of Shift Summary: Pt remained vitally stable for account underwriter overnight, he did have several occurences where his O2 would drop down to the low 80's, when account underwriter entered the room and elevated the head of his bed his O2 would increase to the low mid 90's. He was able to get several long stretches of sleep overnight. Only getting up to use the restroom twice. No statements of pain made this shift. Hehas remained safe in his bed, call light appropriate and within reach. Subq heparin given as DVT prophylaxis. . Chest x-ray was taken at 0650 this AM. Problem: PAIN - ADULT Goal: PT VERBALIZES/DEMONSTRATES ADEQUATE COMFORT LEVEL OR BASELINE Outcome: Progressing Problem: SAFETY ADULT Goal: Maintain a safe environment Outcome: Progressing Problem: SAFETY ADULT - RISK FOR FALL AND OR FALL INJURY Goal: Patient remains free from fall/fall injury Outcome: Progressing Problem: POTENTIAL OR ACTUAL PRESSURE INJURY-ADULT Goal: Manage sensory Perception deficits to maintain and/or improve skin integrity Outcome: Progressing Problem: CARDIOVASCULAR - ADULT Goal: Maintains optimal cardiac output and hemodynamic stability Outcome: Progressing Problem: METABOLIC/FLUID AND ELECTROLYTES - ADULT Goal: Electrolytes maintained within normal limits Outcome: Progressing Problem: RESPIRATORY - ADULT Goal: Achieves optimal ventilation and oxygenation Outcome: Progressing Electronically signed by: Margy Waters R.N. 01/11/24 6:56 AM NEUROLOGICAL PHYSIOTHERAPIST OLOGICAL PHYSIOTHERAPIST * Gisela Concepcion M.S.N., R.N. - 01/10/2024 1:09 PM CST Shift Goals: Clinical Goals for [...] and Adequate for liquids OUTPUT: Patient has been urinating adequately. Patient had a bowel movement today. PAIN: Patient has not had any complaints of pain this shift. PRN MEDICATIONS UTILIZED THIS SHIFT: None DVT PROPHYLAXIS: Subq Heparin CHG/SMITH CARE NEEDS: None needed SHIFT EVENTS: No acute events this shift. Walked in gaspar x 1. Up to chair for meals. No complaints of pain. Gabapentin added for neuropathy in feet. Magnesium replaced. Chest XR done. UPCOMING PLAN OF CARE: Repeat imaging on Thursday to assess need for chest tube. Video swallow Thursday. Problem: INFECTION - ADULT Goal: Absence of infection during hospitalization Outcome: Progressing Problem: SKIN/TISSUE INTEGRITY Goal: Skin/Tissue integrity maintained or improved Outcome: Progressing Problem: SAFETY ADULT Goal: Maintain a safe environment Outcome: Progressing Problem: DISCHARGE PLANNING Goal: Patient discharge needs identified Outcome: Progressing Problem: Compromised Skin Integrity Goal: Skin/Tissue integrity maintained or improved Outcome: Progressing Goal: Incisions, wounds, or drain sites healing without S/S of infection Outcome: Progressing Problem: CARDIOVASCULAR - ADULT Goal: Maintains optimal cardiac output and hemodynamic stability Outcome: Progressing Problem: METABOLIC/FLUID AND ELECTROLYTES - ADULT Goal: Electrolytes maintained within normal limits Outcome: Progressing Goal: Hemodynamic stability and optimal renal function maintained Outcome: Progressing Problem: GENITOURINARY - ADULT Goal: Optimize urinary function Outcome: Progressing Problem: RESPIRATORY - ADULT Goal: Achieves optimal ventilation and oxygenation Outcome: Progressing OLOGICAL PHYSIOTHERAPIST * Elenita Montiel R.N. - 01/10/2024 6:30 AM CST Shift Goals: Clinical Goals for the Shift: VSS, monitor WOB, remain safe Identify possible barriers to meeting goals/advancing plan of care: Acuity of illness INPATIENT SHIFT SUMMARY ORIENTATION: AAO x 3 . SAFETY MEASURES: Bed alarm ,hourly rounding , appropriate use of the call light . ASSISTED MOBILITY: Gait belt, walker , assist x 1. VITALS: Vitals assessed and stable this shift INTAKE: Adequate for solids and Adequate for liquids OUTPUT: Pt voided adequate . Bowels moved. PAIN: Pain has been well controlled with PRN medications PRN MEDICATIONS UTILIZED THIS SHIFT: Oxycodone for foot pain . DVT PROPHYLAXIS: Subq Heparin CHG/SMITH CARE NEEDS: None needed SHIFT EVENTS: No acute events this shift. UPCOMING PLAN OF CARE: Pt for repeat Scan on Thursday. OLOGICAL PHYSIOTHERAPIST * Marge Meredith R.N., CCRN, [facility] - 01/09/2024 5:42 PM CST Rapid Response Follow Up Attending Provider: Jeremías Fernandez M.D. Admission Date: 01/01/2024 Current Vitals: Vitals: 01/09/24 1518 BP: Pulse: Resp: Temp: SpO2: 97% Rapid RN following for: chest removed on right yesterday Assessment: site noted to have serous returns, dressing changed, site looks good, nothing leaking when changed. Chest xray states no change since chest tube out. Interventions: dressing changed, remove from SENIOR MECHANICAL ESTIMATOR list Recommendations for primary RN: call for concerns with sites or respiratory concerns Rapid RN will continue to monitor for: none at this time Patient Disposition: has improved Rapid RN following prior to transfer to higher level of care, if applicable: Offered debrief to primary nurse: Encouraged primary RN to call SENIOR MECHANICAL ESTIMATOR with questions, concerns, or if patient condition changes. OLOGICAL PHYSIOTHERAPIST * Gisela Concepcion M.S.N., R.N. - 01/09/2024 5:32 PM CST Shift Goals: Clinical Goals for the Shift: VSS, monitor WOB, remain safe Identify possible barriers to meeting goals/advancing plan of care: acuity of illness End of Shift Summary: INPATIENT SHIFT SUMMARY ORIENTATION: A&Ox3 SAFETY MEASURES: Bed Alarm, Chair Alarm, and Hourly Rounding ASSISTED MOBILITY: x1, Gait belt, and Walker VITALS: Vitals assessed and stable this shift INTAKE: Adequate for solids and Adequate for liquids OUTPUT: Patient has been urinating adequately. Patient had a bowel movement today. PAIN: Patient has not had any complaints of pain this shift. PRN MEDICATIONS UTILIZED THIS SHIFT: None DVT PROPHYLAXIS: Subq Heparin CHG/SMITH CARE NEEDS: None needed SHIFT EVENTS: No acute events this shift. Son and visited. Walked in gaspar x 1. Up to chair for meals. Chest tube site dressing with small amount of drainage, changed by rapid nurse. IJ dialysis site clean, dry, intact. No complaints of pain. UPCOMING PLAN OF CARE: Repeat imaging on Thursday to assess need for chest tube. Video swallow Thursday. Problem: INFECTION - ADULT Goal: Absence of infection during hospitalization Outcome: Progressing Problem: SKIN/TISSUE INTEGRITY Goal: Skin/Tissue integrity maintained or improved Outcome: Progressing Problem: SAFETY ADULT Goal: Maintain a safe environment Outcome: Progressing Problem: DISCHARGE PLANNING Goal: Patient discharge needs identified Outcome: Progressing Problem: Compromised Skin Integrity Goal: Skin/Tissue integrity maintained or improved Outcome: Progressing Goal: Incisions, wounds, or drain sites healing without S/S of infection Outcome: Progressing Problem: CARDIOVASCULAR - ADULT Goal: Maintains optimal cardiac output and hemodynamic stability Outcome: Progressing Problem: METABOLIC/FLUID AND ELECTROLYTES - ADULT Goal: Electrolytes maintained within normal limits Outcome: Progressing Goal: Hemodynamic stability and optimal renal function maintained Outcome: Progressing Problem: GENITOURINARY - ADULT Goal: Optimize urinary function Outcome: Progressing Problem: RESPIRATORY - ADULT Goal: Achieves optimal ventilation and oxygenation Outcome: Progressing OLOGICAL PHYSIOTHERAPIST * Olegario Oconnor R.N. - 01/09/2024 7:37 AM CST Shift Goals: Clinical Goals for the Shift: VSS, monitor WOB, remain safe Identify possible barriers to meeting goals/advancing plan of care: acuity of illness INPATIENT SHIFT SUMMARY ORIENTATION: A&Ox3 SAFETY MEASURES: Bed Alarm ASSISTED MOBILITY: x1, Gait belt, and Walker VITALS: Vitals assessed and stable this shift INTAKE: Adequate for liquids OUTPUT: Patient has been urinating adequately. PAIN: Patient has not had any complaints of pain this shift. PRN MEDICATIONS UTILIZED THIS SHIFT: None DVT PROPHYLAXIS: Subq Heparin CHG/SMITH CARE NEEDS: None needed SHIFT EVENTS: No acute events this shift. Patient slept well through the night. UPCOMING PLAN OF CARE: Monitor chest tube site, Monitor oxygenation, Assess ability to perform ADLs Problem: PAIN - ADULT Goal: PT VERBALIZES/DEMONSTRATES ADEQUATE COMFORT LEVEL OR BASELINE Note: Patient has had no complaints of pain this shift and has not needed any PRN medication. Problem: RESPIRATORY - ADULT Goal: Achieves optimal ventilation and oxygenation Note: Patient has been on room air all night and has had no issue with oxygen saturation. OLOGICAL PHYSIOTHERAPIST * Kassandra Hennessy R.N. - 01/09/2024 2:35 AM CST Rapid Response Follow Up Attending Provider: Jeremías Fernandez M.D. Admission Date: 01/01/2024 Current Vitals: Vitals: 01/08/24 2223 BP: 114/67 Pulse: 100 Resp: 24 Temp: 36.8 ??C SpO2: 95% Rapid RN following for: Post chest tube Assessment: No respiratory distress. Remains on room air with SATS 94%.Respiratory rate in mid 20's. VSS. Lungs diminished. Interventions: None Recommendations for primary RN: Continue to monitor respiratory status ,chest xray results. Rapid RN will continue to monitor for: respiratory status Patient Disposition: remains the same Encouraged primary RN to call SENIOR MECHANICAL ESTIMATOR with questions, concerns, or if patient condition changes. * Amberly Denton R.N., PCCN - 01/08/2024 7:00 AM CST Rapid Response Follow Up Attending Provider: Jeremías Fernandez M.D. Admission Date: 01/01/2024 Current Vitals: Vitals: 01/08/24 0647 BP: 114/62 Pulse: 91 Resp: 22 Temp: 36.1 ??C SpO2: 95% Rapid RN following for: Chest tube cares/tPA/Dornase administration Assessment: Patient experiencing pain with administration of medication into chest tube even thoughadministered slowly. Pain subsided rapidly once all was instilled. Patient turned after administration and both aide/nurse instructed on turns every 20 minutes for two more turns. Lungs diminished bilaterally. Patient on room air. Interventions: TPA/Dornase administration per orders and protocol followed by flush. Only 70 mLs ofoutput. One more dose this morning. Chest tube to water seal. Recommendations for primary RN: Tony pleuro vac every shift and document outputs. If pleuro vac were to be tipped over, change out system. Rapid RN will continue to monitor for: CT cares Patient Disposition: remains the same Encouraged primary RN to call SENIOR MECHANICAL ESTIMATOR with questions, concerns, or if patient condition changes. Amberly Denton R.N., PCCN * Willow Han R.N. - 01/08/2024 6:07 AM CST Shift Goals: Monitor HR/Rhythm/hemodynamic status Monitor Resp Status/O2 needs Monitor Chest Tube Strict I/Os Maintain skin integrity Maintain pt safety Identify possible barriers to meeting goals/advancing plan of care: acuity of illness, failure to thrive End of Shift Summary: SR 90-100s, BPs 90s-100s/50-60s, No O2 needs Chest tube remains in place,output this shift: 70 mL Rapid RN flush w/Dornase and Alteplase q12 hours Urine output: x2 unmeasured Pt turned q 2hrs Bed alarm on for pt safety OLOGICAL PHYSIOTHERAPIST * Ricky Brown R.N. - 01/07/2024 6:20 [...] output from chest tube. Output: 140 ml OLOGICAL PHYSIOTHERAPIST * Wendi Pacheco R.N. - 01/06/2024 4:13 [...] Total chest tube output was 310 mL. OLOGICAL PHYSIOTHERAPIST * Melody Mullins R.N., MARYELLENN - 01/06/2024 12:38 PM CST Rapid Response [...] primary nurse: Encouraged primary RN to call SENIOR MECHANICAL ESTIMATOR with questions, concerns, or if patient condition changes. OLOGICAL PHYSIOTHERAPIST * Ricky Brown R.N. - 01/06/2024 6:29 [...] Note: Chest tube in place, OUTPUT: 202 OLOGICAL PHYSIOTHERAPIST * Kassandra Hennessy R.N. - 01/05/2024 11:07 [...] the same Encouraged primary RN to call SENIOR MECHANICAL ESTIMATOR with questions, concerns, or if patient condition changes. OLOGICAL PHYSIOTHERAPIST * Moriah Neves R.N., CCRN - 01/05/2024 [...] the same Encouraged primary RN to call SENIOR MECHANICAL ESTIMATOR with questions, concerns, or if patient condition changes. OLOGICAL PHYSIOTHERAPIST * Gisela Concepcion M.S.N., R.N. - 01/05/2024 [...] and optimal renal function maintained Outcome: Progressing OLOGICAL PHYSIOTHERAPIST * Ricky Brown R.N. - 01/05/2024 6:22 [...] Progressing Note: Pt stayed on RA overnight OLOGICAL PHYSIOTHERAPIST * Patsy Storey RElielN. - 01/04/2024 6:26 PM CST Dialysis Treatment [...] fluid removal: 2.5 L Patsy Storey R.N. OLOGICAL PHYSIOTHERAPIST * Ulises Vo RElielN. - 01/03/2024 11:37 PM CST Shift Goals: [...] and oxygenation Outcome: Progressing Note: Monitor WOB. OLOGICAL PHYSIOTHERAPIST * Morena Zarate R.N. - 01/03/2024 11:11 AM CST Dialysis Treatment Summary Treatment Summary: The patient completed 2.5 hours of prescribed hemodialysis treatment. Temporary dialysis catheter is not working well, alarms every 15 seconds to 1 minute and with any patient movement, swallowing or talking. ICU assistant account executive attempted to reposition catheter and redo sutures, withminimal improvement. foreign service teacher trialed every effort to alleviate alarms, but with no success. Pulled 0.9 L. Heparin: No Access used: Catheter - exit site clean and dry. Pre weight: 64.2 kg Post weight: 64.5 kg Net fluid removal: 0.9 L Morena Zarate R.N. OLOGICAL PHYSIOTHERAPIST * Alicia Vo R.N. - 01/03/2024 2:15 [...] Appeared to be resting well during rounds. OLOGICAL PHYSIOTHERAPIST * Renae Franklin R.N. - 01/02/2024 6:28 [...] fluid removal: 0.4 L Renae Franklin R.N. OLOGICAL PHYSIOTHERAPIST * Olegario Oconnor R.N. - 01/02/2024 8:12 [...] None needed SHIFT EVENTS: Pt arrived from [place] ED due to FRANCISCO, Pneumonia, and pleural [...] PT bladder scanned at 0645 had 349. OLOGICAL PHYSIOTHERAPIST documented in this encounter Miscellaneous Notes * [...] with PMH of CKD 3b transferred from [facility] with failure to thrive and chronic watery [...] signed by: Octavio Cavazos 01/05/2024 1:31 PM OLOGICAL PHYSIOTHERAPIST documented in this encounter Plan of Treatment Upcoming Encounters Date Type Department Care Team (Latest Contact Info) Description 01/25/2024 1:30 PM NEUROLOGICAL PHYSIOTHERAPIST Appointment Department of Laboratory Medicine in [address] [phone] Sarah Perry M.D. [address] [place] [address] [phone] 01/25/2024 2:30 PM NEUROLOGICAL PHYSIOTHERAPIST Office Visit Department of Infectious Diseases in [address] [phone] Clara Jones P.A.-C. [address] [place] [address] [phone] 01/25/2024 3:00 PM NEUROLOGICAL PHYSIOTHERAPIST Comprehensive Visit Department of Pulmonary Medicine in [address] [phone] Fidencio Oliva M.D. [address] [place], [place] [phone] Discharge Disposition: Home or Self Care Scheduled Orders Name Type Priority Associated Diagnoses Orde r Schedule Staph aureus / MRSA, Nasal, PCR Microbiology Routine Routine lab col lection (next collection) for 1 Occurrences starting 01/04/2024 until 01/04/2024 Scheduled Referrals Name Type Priority Associated Diagnoses Orde r Schedule Pulmonary Medicine - Pleural Disease consult (clinic) Outpatient Referral Routine Pneumonia Empyema Pleural (HCC) Expected: 01/25/2024 (Approximate), Expires: 04/12/2025 External referral physician (non-[facility]) Outpatient Referral Routine Empyema Pleural (HCC) Ordered: 01/11/2024 documented as of this encounter Procedures Procedure Name Priority Date/Time Associated Diagnosis Comments FL SWALLOW FUNCTION WITH VIDEO AND SPEECH RAD - Routine (most inpatients and all outpatients) 01/11/2024 1:48 PM NEUROLOGICAL PHYSIOTHERAPIST TESTING LOCATION Timed 01/11/2024 11:5 1 AM NEUROLOGICAL PHYSIOTHERAPIST HEMOGLOBIN, B Timed 01/11/2024 11:51 AM NEUROLOGICAL PHYSIOTHERAPIST TYPE AND SCREEN Timed 01/11/2024 11:51 AM NEUROLOGICAL PHYSIOTHERAPIST DX CHEST PORTABLE 1 VIEW RAD - Routine (most inpatients and all outpatients) 01/11/2024 6:54 AM NEUROLOGICAL PHYSIOTHERAPIST HEPATIC FUNCTION PANEL, S Routine 01/11/2024 4:48 AM NEUROLOGICAL PHYSIOTHERAPIST CBC WITH DIFFERENTIAL, B Routine 01/11/2024 4:48 AM NEUROLOGICAL PHYSIOTHERAPIST PHOSPHORUS (INORGANIC), S Routine 01/11/2024 4:48 AM NEUROLOGICAL PHYSIOTHERAPIST MAGNESIUM, S Routine 01/11/2024 4:48 AM NEUROLOGICAL PHYSIOTHERAPIST BASIC METABOLIC PANEL, S/P Routine 01/11/2024 4:48 AM NEUROLOGICAL PHYSIOTHERAPIST DX CHEST PORTABLE 1 VIEW RAD - Routine (most inpatients and all outpatients) 01/10/2024 6:50 AM NEUROLOGICAL PHYSIOTHERAPIST HEPATIC FUNCTION PANEL, S Routine 01/10/2024 6:25 AM NEUROLOGICAL PHYSIOTHERAPIST CBC WITH DIFFERENTIAL, B Routine 01/10/2024 6:25 AM NEUROLOGICAL PHYSIOTHERAPIST PHOSPHORUS (INORGANIC), S Routine 01/10/2024 6:25 AM NEUROLOGICAL PHYSIOTHERAPIST MAGNESIUM, S Routine 01/10/2024 6:25 AM NEUROLOGICAL PHYSIOTHERAPIST BASIC METABOLIC PANEL, S/P Routine 01/10/2024 6:25 AM NEUROLOGICAL PHYSIOTHERAPIST DX CHEST PORTABLE 1 VIEW RAD - Routine (most inpatients and all outpatients) 01/09/2024 6:50 AM NEUROLOGICAL PHYSIOTHERAPIST MORPHOLOGY EVALUATION Routine 01/09/2024 6:42 AM NEUROLOGICAL PHYSIOTHERAPIST MANUAL DIFFERENTIAL, B Routine 01/09/2024 6:42 AM NEUROLOGICAL PHYSIOTHERAPIST HEPATIC FUNCTION PANEL, S Routine 01/09/2024 6:42 AM NEUROLOGICAL PHYSIOTHERAPIST CBC WITH DIFFERENTIAL, B Routine 01/09/2024 6:42 AM NEUROLOGICAL PHYSIOTHERAPIST PHOSPHORUS (INORGANIC), S Routine 01/09/2024 6:42 AM NEUROLOGICAL PHYSIOTHERAPIST MAGNESIUM, S Routine 01/09/2024 6:42 AM NEUROLOGICAL PHYSIOTHERAPIST BASIC METABOLIC PANEL, S/P Routine 01/09/2024 6:[address] CHEST WITHOUT IV CONTRAST RAD - Routine (most inpatients and all outpatients) 01/08/2024 1:11 PM NEUROLOGICAL PHYSIOTHERAPIST DX CHEST 1 VIEW RAD - Routine (most inpatients and all outpatients) 01/08/2024 7:16 AM NEUROLOGICAL PHYSIOTHERAPIST MORPHOLOGY EVALUATION Routine 01/08/2024 4:47 AM NEUROLOGICAL PHYSIOTHERAPIST MANUAL DIFFERENTIAL, B Routine 01/08/2024 4:47 AM NEUROLOGICAL PHYSIOTHERAPIST HEPATIC FUNCTION PANEL, S Routine 01/08/2024 4:47 AM NEUROLOGICAL PHYSIOTHERAPIST CBC WITH DIFFERENTIAL, B Routine 01/08/2024 4:47 AM NEUROLOGICAL PHYSIOTHERAPIST PHOSPHORUS (INORGANIC), S Routine 01/08/2024 4:47 AM NEUROLOGICAL PHYSIOTHERAPIST MAGNESIUM, S Routine 01/08/2024 4:47 AM NEUROLOGICAL PHYSIOTHERAPIST BASIC METABOLIC PANEL, S/P Routine 01/08/2024 4:47 AM NEUROLOGICAL PHYSIOTHERAPIST HEMOGLOBIN, B Timed 01/07/2024 3:50 PM NEUROLOGICAL PHYSIOTHERAPIST DX CHEST 1 VIEW RAD - Routine (most inpatients and all outpatients) 01/07/2024 7:14 AM NEUROLOGICAL PHYSIOTHERAPIST MORPHOLOGY EVALUATION Routine 01/07/2024 5:29 AM NEUROLOGICAL PHYSIOTHERAPIST HEPATIC FUNCTION PANEL, S Routine 01/07/2024 5:29 AM NEUROLOGICAL PHYSIOTHERAPIST CBC WITH DIFFERENTIAL, B Routine 01/07/2024 5:29 AM NEUROLOGICAL PHYSIOTHERAPIST PHOSPHORUS (INORGANIC), S Routine 01/07/2024 5:29 AM NEUROLOGICAL PHYSIOTHERAPIST MAGNESIUM, S Routine 01/07/2024 5:29 AM NEUROLOGICAL PHYSIOTHERAPIST BASIC METABOLIC PANEL, S/P Routine 01/07/2024 5:29 AM NEUROLOGICAL PHYSIOTHERAPIST TROPHERYMA WHIPPLEI PCR, B Routine 01/06/2024 11:36 AM NEUROLOGICAL PHYSIOTHERAPIST MISCELLANEOUS SENT OUT LAB TEST Routine 01/06/2024 11:36 AM NEUROLOGICAL PHYSIOTHERAPIST HC REF INF DIS DNA/PCR/NGS SEQ Routine 01/06/2024 10:59 AM NEUROLOGICAL PHYSIOTHERAPIST DX CHEST 1 VIEW RAD - Routine (most inpatients and all outpatients) 01/06/2024 7:19 AM NEUROLOGICAL PHYSIOTHERAPIST MORPHOLOGY EVALUATION Timed 01/06/2024 5:37 AM NEUROLOGICAL PHYSIOTHERAPIST MANUAL DIFFERENTIAL, B Timed 01/06/2024 5:37 AM NEUROLOGICAL PHYSIOTHERAPIST RENAL FUNCTION PANEL, S Timed 01/06/2024 5:37 AM NEUROLOGICAL PHYSIOTHERAPIST CBC WITH DIFFERENTIAL, B Timed 01/06/2024 5:37 AM NEUROLOGICAL PHYSIOTHERAPIST MAGNESIUM, S Timed 01/06/2024 5:37 AM NEUROLOGICAL PHYSIOTHERAPIST ECG STAT 01/06/2024 5:32 AM NEUROLOGICAL PHYSIOTHERAPIST IR CHEST TUBE PLACEMENT RAD - Routine (most inpatients and all outpatients) 01/05/2024 1:42 PM NEUROLOGICAL PHYSIOTHERAPIST CYTOLOGY NON-HEARING STENOGRAPHER Routine 01/05/2024 12:5 0 PM NEUROLOGICAL PHYSIOTHERAPIST PROTEIN, TOTAL, BF Timed 01/05/2024 12 :50 PM NEUROLOGICAL PHYSIOTHERAPIST BACTERIAL CULTURE, AEROBIC + SUSC Timed 01/05/2024 12:50 PM NEUROLOGICAL PHYSIOTHERAPIST CELL COUNT AND DIFFERENTIAL, BF Timed 01/05/2024 12:50 PM NEUROLOGICAL PHYSIOTHERAPIST TRIGLYCERIDES, BF Timed 01/05/2024 12: 50 PM NEUROLOGICAL PHYSIOTHERAPIST PH, PLEURAL FLUID Timed 01/05/2024 12: 50 PM NEUROLOGICAL PHYSIOTHERAPIST GRAM STAIN Timed 01/05/2024 12:50 PM NEUROLOGICAL PHYSIOTHERAPIST BACTERIAL CULTURE, ANAEROBIC + SUSC Timed 01/05/2024 12:50 PM NEUROLOGICAL PHYSIOTHERAPIST LACTATE DEHYDROGENASE (LD), BF Timed 01/05/2024 12:50 PM NEUROLOGICAL PHYSIOTHERAPIST GLUCOSE, BODY FLUID Timed 01/05/2024 1 2:50 PM NEUROLOGICAL PHYSIOTHERAPIST MORPHOLOGY EVALUATION Routine 01/05/2024 5:52 AM NEUROLOGICAL PHYSIOTHERAPIST MANUAL DIFFERENTIAL, B Routine 01/05/2024 5:52 AM NEUROLOGICAL PHYSIOTHERAPIST CBC WITH DIFFERENTIAL, B Routine 01/05/2024 5:52 AM NEUROLOGICAL PHYSIOTHERAPIST BASIC METABOLIC PANEL, S/P Routine 01/05/2024 5:52 AM NEUROLOGICAL PHYSIOTHERAPIST PNEUMONIA PANEL, PCR Routine 01/04/2024 7:45 PM NEUROLOGICAL PHYSIOTHERAPIST BACTERIAL CULTURE, AEROBIC + SUSC, RESP Routine 01/04/2024 7:45 PM NEUROLOGICAL PHYSIOTHERAPIST NASAL SCREEN FOR MRSA BY RAPID PCR Routine 01/04/2024 7:45 PM NEUROLOGICAL PHYSIOTHERAPIST GRAM STAIN Routine 01/04/2024 7:45 PM NEUROLOGICAL PHYSIOTHERAPIST (TTE) 2D ECHO DOPPLER COLOR AND CONTRAST Routine 01/04/2024 10:38 AM NEUROLOGICAL PHYSIOTHERAPIST URINALYSIS WITH MICROSCOPIC IF INDICATED, U Routine 01/04/2024 5:56 AM NEUROLOGICAL PHYSIOTHERAPIST SODIUM, RANDOM, U Routine 01/04/2024 5:5 6 AM NEUROLOGICAL PHYSIOTHERAPIST HC URINALYSIS AUTO WO MICRO Routine 01/04/2024 5:56 AM NEUROLOGICAL PHYSIOTHERAPIST PROTEIN/CREATININE RATIO, RANDOM, URINE Routine 01/04/2024 5:56 AM NEUROLOGICAL PHYSIOTHERAPIST NT-PRO B-TYPE NATRIURETIC PEPTIDE (BNP), S Routine 01/04/2024 4:56 AM NEUROLOGICAL PHYSIOTHERAPIST IRON AND TOT IRON-BINDING CAPACITY, S/P Routine 01/04/2024 4:56 AM NEUROLOGICAL PHYSIOTHERAPIST CBC WITH DIFFERENTIAL, B Routine 01/04/2024 4:56 AM NEUROLOGICAL PHYSIOTHERAPIST PARATHYROID HORMONE (PTH), S Routine 01/04/2024 4:56 AM NEUROLOGICAL PHYSIOTHERAPIST FERRITIN, S Routine 01/04/2024 4:56 AM NEUROLOGICAL PHYSIOTHERAPIST BASIC METABOLIC PANEL, S/P Routine 01/04/2024 4:56 AM NEUROLOGICAL PHYSIOTHERAPIST CYTOLOGY NON-HEARING STENOGRAPHER Timed 01/03/2024 5:09 PM NEUROLOGICAL PHYSIOTHERAPIST US THORACENTESIS RIGHT WITH IMAGING GUIDANCE RAD - Routine (most inpatients and all outpatients) 01/03/2024 5:04 PM NEUROLOGICAL PHYSIOTHERAPIST BASIC METABOLIC PANEL, S/P Timed 01/03/2024 1:56 PM NEUROLOGICAL PHYSIOTHERAPIST HEMODIALYSIS Routine 01/03/2024 11:28 AM NEUROLOGICAL PHYSIOTHERAPIST BACTERIA / CHERI CULTURE, BLOOD Routine 01/03/2024 10:53 AM NEUROLOGICAL PHYSIOTHERAPIST LACTATE FOR SEPSIS WITH REFLEX Routine 01/03/2024 10:52 AM NEUROLOGICAL PHYSIOTHERAPIST BACTERIA / CHERI CULTURE, BLOOD Routine 01/03/2024 10:52 AM NEUROLOGICAL PHYSIOTHERAPIST ALBUMIN, S/P Routine 01/03/2024 10:51 AM NEUROLOGICAL PHYSIOTHERAPIST HEMODIALYSIS Routine 01/03/2024 8:16 AM NEUROLOGICAL PHYSIOTHERAPIST PH BLOOD GAS Routine 01/03/2024 6:42 AM NEUROLOGICAL PHYSIOTHERAPIST QUANTIFERON-TB GOLD PLUS, B Routine 01/03/2024 6:42 AM NEUROLOGICAL PHYSIOTHERAPIST VITAMIN D, IMMUNOASSAY, TOTAL, S Routine 01/03/2024 6:42 AM NEUROLOGICAL PHYSIOTHERAPIST NT-PRO B-TYPE NATRIURETIC PEPTIDE (BNP), S Routine 01/03/2024 6:42 AM NEUROLOGICAL PHYSIOTHERAPIST HBC TOTAL AB, SERUM Routine 01/03/2024 6 :42 AM NEUROLOGICAL PHYSIOTHERAPIST HBS ANTIBODY, SERUM Routine 01/03/2024 6 :42 AM NEUROLOGICAL PHYSIOTHERAPIST HEPATITIS B SURFACE ANTIGEN Routine 01/03/2024 6:42 AM NEUROLOGICAL PHYSIOTHERAPIST CBC WITH DIFFERENTIAL, B Routine 01/03/2024 6:42 AM NEUROLOGICAL PHYSIOTHERAPIST CALCIUM, IONIZED, S/B Routine 01/03/2024 6:42 AM NEUROLOGICAL PHYSIOTHERAPIST BASIC METABOLIC PANEL, S/P Routine 01/03/2024 6:42 AM NEUROLOGICAL PHYSIOTHERAPIST BROAD RANGE BACTERIA PCR AND SEQUENCING Timed 01/03/2024 6:10 AM NEUROLOGICAL PHYSIOTHERAPIST LEUKEMIA/LYMPHOMA, PHENOTYPE, V Timed 01/03/2024 6:10 AM NEUROLOGICAL PHYSIOTHERAPIST PROTEIN, TOTAL, BF Timed 01/03/2024 6: 10 AM NEUROLOGICAL PHYSIOTHERAPIST M TUBERCULOSIS COMPLEX PCR, V Timed 01/03/2024 6:10 AM NEUROLOGICAL PHYSIOTHERAPIST BACTERIAL CULTURE, AEROBIC + SUSC Timed 01/03/2024 6:10 AM NEUROLOGICAL PHYSIOTHERAPIST CHOLESTEROL, BF Timed 01/03/2024 6:10 AM NEUROLOGICAL PHYSIOTHERAPIST CELL COUNT AND DIFFERENTIAL, BF Timed 01/03/2024 6:10 AM NEUROLOGICAL PHYSIOTHERAPIST GRAM STAIN Timed 01/03/2024 6:10 AM NEUROLOGICAL PHYSIOTHERAPIST BACTERIAL CULTURE, ANAEROBIC + SUSC Timed 01/03/2024 6:10 AM NEUROLOGICAL PHYSIOTHERAPIST LACTATE DEHYDROGENASE (LD), BF Timed 01/03/2024 6:10 AM NEUROLOGICAL PHYSIOTHERAPIST GLUCOSE, BODY FLUID Timed 01/03/2024 6:10 AM NEUROLOGICAL PHYSIOTHERAPIST DX CHEST PORTABLE 1 VIEW RAD - Semiurgent (Fast; most ED patients; some inpatients) 01/02/2024 3:59 PM NEUROLOGICAL PHYSIOTHERAPIST MC ANE CENTRAL LINE GENERIC PERFORMABLE Routine 01/02/2024 3:47 PM NEUROLOGICAL PHYSIOTHERAPIST Failure Renal Acute (Acute Kidney Injury) (HCC) LDA ANE CENTRAL LINE DOUBLE LUMEN ADULT Routine 01/02/2024 3:47 PM NEUROLOGICAL PHYSIOTHERAPIST Failure Renal Acute (Acute Kidney Injury) (HCC) VA US GUIDE VASC ACCESS Routine 01/02/2024 3:47 PM NEUROLOGICAL PHYSIOTHERAPIST Failure Renal Acute (Acute Kidney Injury) (HCC) VA INS NON-BLAINE CVC >5YR Routine 01/02/2024 3:47 PM NEUROLOGICAL PHYSIOTHERAPIST Failure Renal Acute (Acute Kidney Injury) (HCC) HEMODIALYSIS Routine 01/02/2024 2:44 PM NEUROLOGICAL PHYSIOTHERAPIST MAGNESIUM, S Routine 01/02/2024 11:32 AM NEUROLOGICAL PHYSIOTHERAPIST BASIC METABOLIC PANEL, S/P Routine 01/02/2024 11:32 AM NEUROLOGICAL PHYSIOTHERAPIST US KIDNEYS BILATERAL WITH BLADDER RAD - Routine (most inpatients and all outpatients) 01/02/2024 10:15 AM NEUROLOGICAL PHYSIOTHERAPIST DX CHEST PORTABLE 1 VIEW RAD - Semiurgent (Fast; most ED patients; some inpatients) 01/02/2024 4:24 AM NEUROLOGICAL PHYSIOTHERAPIST PH BLOOD GAS Routine 01/02/2024 4:10 AM NEUROLOGICAL PHYSIOTHERAPIST CREATINE KINASE (CK), S Routine 01/02/2024 4:10 AM NEUROLOGICAL PHYSIOTHERAPIST CALCIUM, IONIZED, S/B Routine 01/02/2024 4:10 AM NEUROLOGICAL PHYSIOTHERAPIST ALBUMIN, S/P Routine 01/02/2024 4:10 AM NEUROLOGICAL PHYSIOTHERAPIST LACTATE, B STAT 01/02/2024 3:41 AM NEUROLOGICAL PHYSIOTHERAPIST NT-PRO B-TYPE NATRIURETIC PEPTIDE (BNP), S Routine 01/02/2024 3:41 AM NEUROLOGICAL PHYSIOTHERAPIST CBC WITH DIFFERENTIAL, B Routine 01/02/2024 3:41 AM NEUROLOGICAL PHYSIOTHERAPIST PHOSPHORUS (INORGANIC), S Routine 01/02/2024 3:41 AM NEUROLOGICAL PHYSIOTHERAPIST OSMOLALITY, S Routine 01/02/2024 3:41 AM NEUROLOGICAL PHYSIOTHERAPIST MAGNESIUM, S Routine 01/02/2024 3:41 AM NEUROLOGICAL PHYSIOTHERAPIST VENOUS BLOOD GAS W/COOX, B Routine 01/02/2024 3:41 AM NEUROLOGICAL PHYSIOTHERAPIST BASIC METABOLIC PANEL, S/P Routine 01/02/2024 3:41 AM NEUROLOGICAL PHYSIOTHERAPIST ECG Routine 01/02/2024 12:39 AM NEUROLOGICAL PHYSIOTHERAPIST documented in this encounter Results * FL Swallow Function with Video and Speech or OT (01/11/2024 1:48 PM NEUROLOGICAL PHYSIOTHERAPIST) Anatomical Region Laterality Modality Gastro Intestinal, Abdominal RST LOS, Abdominal ARZ LOS, Abdominal FLA LOS N/A Digital Radiography Impressions 01/11/2024 4:00 PM NEUROLOGICAL PHYSIOTHERAPIST Normal modified barium swallow study Narrative 01/11/2024 4:00 PM NEUROLOGICAL PHYSIOTHERAPIST EXAM: FL SWALLOW FUNCTION WITH VIDEO AND [...] Result * Testing Location (01/11/2024 11:51 AM NEUROLOGICAL PHYSIOTHERAPIST) Testing Location [facility] DEFAULT 01/11/2024 11:57 AM NEUROLOGICAL PHYSIOTHERAPIST [facility] Blood 01/11/2024 11:5 1 AM NEUROLOGICAL PHYSIOTHERAPIST 01/11/2024 11:57 AM NEUROLOGICAL PHYSIOTHERAPIST us Jeremías Fernandez M.D. LAB BLOOD BANK TEST ORDERABL ES Final Result Performing Organization Address [facility] [place] [address] * Type and Screen (with Reflex Antibody ID) (01/11/2024 11:51 AM NEUROLOGICAL PHYSIOTHERAPIST) ABO Group B 01/11/2024 12:58 PM NEUROLOGICAL PHYSIOTHERAPIST [facility] Rh Type NEG 01/11/2024 12:58 PM NEUROLOGICAL PHYSIOTHERAPIST [facility] Antibody Screen NEG 12:58 PM NEUROLOGICAL PHYSIOTHERAPIST [facility] Type & Screen Expiration 01/14/2024 23:59 01/11/2024 12:58 PM NEUROLOGICAL PHYSIOTHERAPIST [facility] ELXM Eligible Y 01/11/2024 12:58 PM NEUROLOGICAL PHYSIOTHERAPIST [facility] Blood (Blood, Venous) 01/11/2024 11:51 AM NEUROLOGICAL PHYSIOTHERAPIST 01/11/2024 11:57 AM NEUROLOGICAL PHYSIOTHERAPIST us Jeremías Fernandez M.D. LAB BLOOD BANK TEST ORDERABL ES Final Result Performing Organization Address [facility] Co de Phone Number [facility] [address] [place] [address] * (ABNORMAL) Hemoglobin (01/11/2024 11:51 AM NEUROLOGICAL PHYSIOTHERAPIST) Hemoglobin 8.1(L) 13.2 - 16.6 g/dL 01/11/2024 12:00 PM NEUROLOGICAL PHYSIOTHERAPIST [facility] Blood (Blood, Venous) 01/11/2024 11:51 AM NEUROLOGICAL PHYSIOTHERAPIST 01/11/2024 11:57 AM NEUROLOGICAL PHYSIOTHERAPIST Jeremías Fernandez M.D. LAB BLOOD ADD-ON Final Resul t [facility] [address] [place] [address], [facility] [place] [address] * DX Chest Portable 1 View (01/11/2024 6:54 AM NEUROLOGICAL PHYSIOTHERAPIST) Anatomical Region Laterality Modality Chest, Thoracic RST LOS, Tho racic ARZ LOS, Thoracic FLA LOS N/A Digital Radiography Impressions 01/11/2024 7:51 AM NEUROLOGICAL PHYSIOTHERAPIST No change since 01/10/2024. Small right pleural effusion with associated atelectasis. The left lung remains clear. No pneumothorax. Normal heart size. Aortic calcifications. Narrative 01/11/2024 7:51 AM NEUROLOGICAL PHYSIOTHERAPIST EXAM: DX CHEST PORTABLE 1 VIEW Procedure Note Yovany Shrestha M.D. - 01/11/2024 EXAM: DX CHEST PORTABLE 1 VIEW IMPRESSION: No change since 01/10/2024. Small right pleural effusion with associatedatelectasis. The left lung remains clear. No pneumothorax. Normal heartsize. Aortic calcifications. us Fidencio Oliva M.D. IMG DIAGNOSTIC IMAGING PROCED URES Final Result * Phosphorus Inorganic (01/11/2024 4:48 AM NEUROLOGICAL PHYSIOTHERAPIST) Phosphorus (Inorganic), P 3.1 2.5 - 4.5 mg/dL 01/11/2024 5:37 AM NEUROLOGICAL PHYSIOTHERAPIST TO Blood (Blood, Venous) 01/11/2024 4:48 AM NEUROLOGICAL PHYSIOTHERAPIST 01/11/2024 5:11 AM NEUROLOGICAL PHYSIOTHERAPIST us Jeremías Fernandez M.D. LAB BLOOD ADD-ON Final Resul t Performing Organization Address City/[facility]/ZIP Co de Phone Number [facility] [address] [place] [address], [facility] [address] [place] [phone] * Magnesium (01/11/2024 4:48 AM NEUROLOGICAL PHYSIOTHERAPIST) Magnesium, P 1.7 1.7 - 2.3 mg/dL 01/11/2024 5:37 AM NEUROLOGICAL PHYSIOTHERAPIST [facility] Blood (Blood, Venous) 01/11/2024 4:48 AM NEUROLOGICAL PHYSIOTHERAPIST 01/11/2024 5:11 AM NEUROLOGICAL PHYSIOTHERAPIST us Jeremías Fernandez M.D. LAB BLOOD ADD-ON Final Resul t [facility] [address] [place] [address], [facility] [address] [place] [id number] * (ABNORMAL) Basic Metabolic Panel (01/11/2024 4:48 AM NEUROLOGICAL PHYSIOTHERAPIST) Potassium, P 4.3 3.6 - 5.2 mmol/L 01/11/2024 5:37 AM NEUROLOGICAL PHYSIOTHERAPIST [facility] Sodium, P 143 135 - 145 mmol/L 01/11/2024 5:37 AM NEUROLOGICAL PHYSIOTHERAPIST [facility] Chloride, P 110(H) 98 - 107 mmol/L 01/11/2024 5:37 AM NEUROLOGICAL PHYSIOTHERAPIST [facility] Bicarbonate, P 24 22 - 29 mmol/L 01/11/2024 5:37 AM NEUROLOGICAL PHYSIOTHERAPIST [facility] Anion Gap, P 9 7 - 15 01/11/2024 5:37 AM NEUROLOGICAL PHYSIOTHERAPIST [facility] BUN (Blood Urea Nitrogen), P 33(H) 8 - 24 mg/dL 01/11/2024 5:37 AM NEUROLOGICAL PHYSIOTHERAPIST [facility] Creatinine 1.74(H) 0.74 - 1.35 mg/dL 01/11/2024 5:37 AM NEUROLOGICAL PHYSIOTHERAPIST [facility] Estimated GFR (eGFR) 38(L) >=60 mL/min/BSA 01/11/2024 5:37 AM NEUROLOGICAL PHYSIOTHERAPIST [facility] Comment: Estimated GFR calculated using the 2020 CKD_EPI creatinine equation. Calcium, Total, P 7.8(L) 8.8 - 10.2 mg/dL 01/11/2024 5:37 AM NEUROLOGICAL PHYSIOTHERAPIST [facility] Glucose, P 92 70 - 140 mg/dL 01/11/2024 5:37 AM NEUROLOGICAL PHYSIOTHERAPIST [facility] Blood (Blood, Venous) 01/11/2024 4:48 AM NEUROLOGICAL PHYSIOTHERAPIST 01/11/2024 5:11 AM NEUROLOGICAL PHYSIOTHERAPIST us Jeremías Fernandez M.D. LAB BLOOD ADD-ON Final Resul t [facility] [address] [place] [address], [facility] [place] [address] * (ABNORMAL) CBC with Differential, Blood (01/11/2024 4:48 AM NEUROLOGICAL PHYSIOTHERAPIST) Hemoglobin 7.5(L) 13.2 - 16.6 g/dL 01/11/2024 5:14 AM NEUROLOGICAL PHYSIOTHERAPIST [facility] Hematocrit 24.9(L) 38.3 - 48.6 % 01/11/2024 5:14 AM NEUROLOGICAL PHYSIOTHERAPIST [facility] Erythrocytes 2.52(L) 4.35 - 5.65 x10(12)/L 01/11/2024 5:14 AM NEUROLOGICAL PHYSIOTHERAPIST [facility] MCV 98.8(H) 78.2 - 97.9 fL 01/11/2024 5:14 AM NEUROLOGICAL PHYSIOTHERAPIST [facility] RBC Distrib Width 14.5 11.8 - 14.5 % 01/11/2024 5:14 AM NEUROLOGICAL PHYSIOTHERAPIST [facility] Platelet Count 243 135 - 317 x10(9)/L 01/11/2024 5:14 AM NEUROLOGICAL PHYSIOTHERAPIST [facility] Leukocytes 8.8 3.4 - 9.6 x10(9)/L 01/11/2024 5:14 AM NEUROLOGICAL PHYSIOTHERAPIST [facility] Neutrophils 6.61(H) 1.56 - 6.45 x10(9)/L 01/11/2024 5:14 AM NEUROLOGICAL PHYSIOTHERAPIST [facility] Lymphocytes 0.97 0.95 - 3.07 x10(9)/L 01/11/2024 5:14 AM NEUROLOGICAL PHYSIOTHERAPIST [facility] Monocytes 0.98(H) 0.26 - 0.81 x10(9)/L 01/11/2024 5:14 AM NEUROLOGICAL PHYSIOTHERAPIST [facility] Eosinophils 0.15 0.03 - 0.48 x10(9)/L 01/11/2024 5:14 AM NEUROLOGICAL PHYSIOTHERAPIST [facility] Basophils 0.07 0.01 - 0.08 x10(9)/L 01/11/2024 5:14 AM NEUROLOGICAL PHYSIOTHERAPIST [facility] Blood (Blood, Venous) 01/11/2024 4:48 AM NEUROLOGICAL PHYSIOTHERAPIST 01/11/2024 5:11 AM NEUROLOGICAL PHYSIOTHERAPIST us Jeremías Fernandez M.D. LAB BLOOD ADD-ON Final Resul t [facility] [address] [place] [address], [facility] MKTO [facility] [address] * (ABNORMAL) Hepatic Function Panel (01/11/2024 4:48 AM NEUROLOGICAL PHYSIOTHERAPIST) Bilirubin, Total, P 0.2 0.0 - 1.2 mg/dL 01/11/2024 5:37 AM NEUROLOGICAL PHYSIOTHERAPIST MK[facility] Bilirubin, Direct, P 0.1 0.0 - 0.3 mg/dL 01/11/2024 5:37 AM NEUROLOGICAL PHYSIOTHERAPIST [facility] Aspartate Aminotransferase (AST), P 23 8 - 48 U/L 01/11/2024 5:37 AM NEUROLOGICAL PHYSIOTHERAPIST [facility] Alanine Aminotransferase (ALT), P 11 7 - 55 U/L 01/11/2024 5:37 AM NEUROLOGICAL PHYSIOTHERAPIST [facility] Alkaline Phosphatase, P 83 40 - 129 U/L 01/11/2024 5:37 AM NEUROLOGICAL PHYSIOTHERAPIST [facility] Albumin, P 2.4(L) 3.5 - 5.0 g/dL 01/11/2024 5:37 AM NEUROLOGICAL PHYSIOTHERAPIST [facility] Protein, Total, P 5.2(L) 6.3 - 7.9 g/dL 01/11/2024 5:37 AM NEUROLOGICAL PHYSIOTHERAPIST [facility] Blood (Blood, Venous) 01/11/2024 4:48 AM NEUROLOGICAL PHYSIOTHERAPIST 01/11/2024 5:11 AM NEUROLOGICAL PHYSIOTHERAPIST Jeremías Fernandez M.D. LAB BLOOD ADD-ON Final Resul t [facility] [address] [place] [address], [facility] MKTO [facility] [place] [address] [place] [address] * DX Chest Portable 1 View (01/10/2024 6:50 AM NEUROLOGICAL PHYSIOTHERAPIST) Anatomical Region Laterality Modality Chest, Thoracic RST LOS, Tho racic ARZ LOS, Thoracic FLA LOS N/A Digital Radiography Impressions 01/10/2024 7:36 AM NEUROLOGICAL PHYSIOTHERAPIST Compared with 01/09/2024, no substantial change in size of the small right pleural effusion with basilar atelectasis. No appreciable pneumothoraces. The left lung remains well aerated. Normal heart size. Degenerative changes both shoulders. Narrative 01/10/2024 7:36 AM NEUROLOGICAL PHYSIOTHERAPIST EXAM: DX CHEST PORTABLE 1 VIEW Procedure Note Yovany Shrestha M.D. - 01/10/2024 EXAM: DX CHEST PORTABLE 1 VIEW IMPRESSION: Compared with 01/09/2024, no substantial change in size of the small rightpleural effusion with basilar atelectasis. No appreciable pneumothoraces.The left lung remains well aerated. Normal heart size. Degenerativechanges both shoulders. Fidencio Oliva M.D. IMG DIAGNOSTIC IMAGING PROCED URES Final Result * Phosphorus Inorganic (01/10/2024 6:25 AM NEUROLOGICAL PHYSIOTHERAPIST) Phosphorus (Inorganic), P 2.7 2.5 - 4.5 mg/dL 01/10/2024 7:14 AM NEUROLOGICAL PHYSIOTHERAPIST [facility] Blood (Blood, Venous) 01/10/2024 6:25 AM NEUROLOGICAL PHYSIOTHERAPIST 01/10/2024 6:48 AM NEUROLOGICAL PHYSIOTHERAPIST us Jeremías Fernandez M.D. LAB BLOOD ADD-ON Final Resul t Performing Organization Address City/[facility]/ZIP Co de Phone Number [facility] [address] [place] [address], [place] [phone] * (ABNORMAL) Magnesium (01/10/2024 6:25 AM NEUROLOGICAL PHYSIOTHERAPIST) Magnesium, P 1.5(L) 1.7 - 2.3 mg/dL 01/10/2024 7:14 AM NEUROLOGICAL PHYSIOTHERAPIST [facility] Blood (Blood, Venous) 01/10/2024 6:25 AM NEUROLOGICAL PHYSIOTHERAPIST 01/10/2024 6:48 AM NEUROLOGICAL PHYSIOTHERAPIST us Jeremías Fernandez M.D. LAB BLOOD ADD-ON Final Resul t Performing Organization Address City/[facility] Co de Phone Number [facility] [address] [place] [address], [place] [phone] * (ABNORMAL) Basic Metabolic Panel (01/10/2024 6:25 AM NEUROLOGICAL PHYSIOTHERAPIST) Potassium, P 4.4 3.6 - 5.2 mmol/L 01/10/2024 7:14 AM NEUROLOGICAL PHYSIOTHERAPIST [facility] Sodium, P 144 135 - 145 mmol/L 01/10/2024 7:14 AM NEUROLOGICAL PHYSIOTHERAPIST [facility] Chloride, P 111(H) 98 - 107 mmol/L 01/10/2024 7:14 AM NEUROLOGICAL PHYSIOTHERAPIST [facility] Bicarbonate, P 23 22 - 29 mmol/L 01/10/2024 7:14 AM NEUROLOGICAL PHYSIOTHERAPIST [facility] Anion Gap, P 10 7 - 15 01/10/2024 7:14 AM NEUROLOGICAL PHYSIOTHERAPIST [facility] BUN (Blood Urea Nitrogen), P 38(H) 8 - 24 mg/dL 01/10/2024 7:14 AM NEUROLOGICAL PHYSIOTHERAPIST [facility] Creatinine 1.79(H) 0.74 - 1.35 mg/dL 01/10/2024 7:14 AM NEUROLOGICAL PHYSIOTHERAPIST [facility] Estimated GFR (eGFR) 37(L) >=60 mL/min/BSA 01/10/2024 7:14 AM NEUROLOGICAL PHYSIOTHERAPIST [facility] Comment: Estimated GFR calculated using the 2020 CKD_EPI creatinine equation. Calcium, Total, P 7.8(L) 8.8 - 10.2 mg/dL 01/10/2024 7:14 AM NEUROLOGICAL PHYSIOTHERAPIST MK[facility] Glucose, P 94 70 - 140 mg/dL 01/10/2024 7:14 AM NEUROLOGICAL PHYSIOTHERAPIST [facility] Blood (Blood, Venous) 01/10/2024 6:25 AM NEUROLOGICAL PHYSIOTHERAPIST 01/10/2024 6:48 AM NEUROLOGICAL PHYSIOTHERAPIST us Jeremías Fernandez M.D. LAB BLOOD ADD-ON Final Resul t [facility] [address] [place] [address], [facility] MKTO [place] [address] * (ABNORMAL) CBC with Differential, Blood (01/10/2024 6:25 AM NEUROLOGICAL PHYSIOTHERAPIST) Hemoglobin 8.1(L) 13.2 - 16.6 g/dL 01/10/2024 7:45 AM NEUROLOGICAL PHYSIOTHERAPIST [facility] Hematocrit 26.3(L) 38.3 - 48.6 % 01/10/2024 7:45 AM NEUROLOGICAL PHYSIOTHERAPIST MK[facility] Erythrocytes 2.65(L) 4.35 - 5.65 x10(12)/L 01/10/2024 7:45 AM NEUROLOGICAL PHYSIOTHERAPIST [facility] MCV 99.2(H) 78.2 - 97.9 fL 01/10/2024 7:45 AM NEUROLOGICAL PHYSIOTHERAPIST MK[facility] RBC Distrib Width 14.4 11.8 - 14.5 % 01/10/2024 7:45 AM NEUROLOGICAL PHYSIOTHERAPIST [facility] Platelet Count 254 135 - 317 x10(9)/L 01/10/2024 7:45 AM NEUROLOGICAL PHYSIOTHERAPIST [facility] Leukocytes 11.6(H) 3.4 - 9.6 x10(9)/L 01/10/2024 7:45 AM NEUROLOGICAL PHYSIOTHERAPIST MKTO Neutrophils 9.42(H) 1.56 - 6.45 x10(9)/L 01/10/2024 7:45 AM NEUROLOGICAL PHYSIOTHERAPIST MK[facility] Lymphocytes 0.86(L) 0.95 - 3.07 x10(9)/L 01/10/2024 7:45 AM NEUROLOGICAL PHYSIOTHERAPIST MK[facility] Monocytes 1.10(H) 0.26 - 0.81 x10(9)/L 01/10/2024 7:45 AM NEUROLOGICAL PHYSIOTHERAPIST [facility] Eosinophils 0.19 0.03 - 0.48 x10(9)/L 01/10/2024 7:45 AM NEUROLOGICAL PHYSIOTHERAPIST MKTO Basophils 0.07 0.01 - 0.08 x10(9)/L 01/10/2024 7:45 AM NEUROLOGICAL PHYSIOTHERAPIST MK[facility] Blood (Blood, Venous) 01/10/2024 6:25 AM NEUROLOGICAL PHYSIOTHERAPIST 01/10/2024 6:48 AM NEUROLOGICAL PHYSIOTHERAPIST us Jeremías Fernandez M.D. LAB BLOOD ADD-ON Final Resul t Performing Organization Address City/State/[facility] Co de Phone Number [facility] [address] [place] [address], [facility] MKTO [place] [address] * (ABNORMAL) Hepatic Function Panel (01/10/2024 6:25 AM NEUROLOGICAL PHYSIOTHERAPIST) Bilirubin, Total, P 0.2 0.0 - 1.2 mg/dL 01/10/2024 7:14 AM NEUROLOGICAL PHYSIOTHERAPIST MK[facility] Bilirubin, Direct, P 0.1 0.0 - 0.3 mg/dL 01/10/2024 7:14 AM NEUROLOGICAL PHYSIOTHERAPIST MK[facility] Aspartate Aminotransferase (AST), P 25 8 - 48 U/L 01/10/2024 7:14 AM NEUROLOGICAL PHYSIOTHERAPIST MK[facility] Alanine Aminotransferase (ALT), P 12 7 - 55 U/L 01/10/2024 7:14 AM NEUROLOGICAL PHYSIOTHERAPIST MK[facility] Alkaline Phosphatase, P 93 40 - 129 U/L 01/10/2024 7:14 AM NEUROLOGICAL PHYSIOTHERAPIST MKTO Albumin, P 2.6(L) 3.5 - 5.0 g/dL 01/10/2024 7:14 AM NEUROLOGICAL PHYSIOTHERAPIST MK[facility] Protein, Total, P 5.4(L) 6.3 - 7.9 g/dL 01/10/2024 7:14 AM NEUROLOGICAL PHYSIOTHERAPIST MK[facility] Blood (Blood, Venous) 01/10/2024 6:25 AM NEUROLOGICAL PHYSIOTHERAPIST 01/10/2024 6:48 AM NEUROLOGICAL PHYSIOTHERAPIST us Jeremías Fernandez M.D. LAB BLOOD ADD-ON Final Resul t [facility] [address] [place] [address], [place] MKTO [facility] [place] [address] [place] [address] * DX Chest Portable 1 View (01/09/2024 6:50 AM NEUROLOGICAL PHYSIOTHERAPIST) Anatomical Region Laterality Modality Chest, Thoracic RST LOS, Tho racic ARZ LOS, Thoracic FLA LOS N/A Digital Radiography Impressions 01/09/2024 8:37 AM NEUROLOGICAL PHYSIOTHERAPIST Since 01/08/2024, the right IJ CVC has been removed. The malpositioned right pleural pigtail catheter has been removed. No substantial change in size of the small right pleural effusion with basilar atelectasis. No appreciable pneumothoraces. The left lung remains relatively well aerated. Normal heart size. Aortic calcifications. Degenerative changes both shoulders with superior subluxation suggestive of chronic rotator cuff arthropathy Narrative 01/09/2024 8:37 AM NEUROLOGICAL PHYSIOTHERAPIST EXAM: DX CHEST PORTABLE 1 VIEW Procedure Note Yovany Shrestha M.D. - 01/09/2024 EXAM: DX CHEST PORTABLE 1 VIEW IMPRESSION: Since 01/08/2024, the right IJ CVC has been removed. The malpositionedright pleural pigtail catheter has been removed. No substantial change insize of the small right pleural effusion with basilar atelectasis. Noappreciable pneumothoraces. The left lung remains relatively well aerated. Normal heart size. Aorticcalcifications. Degenerative changes both shoulders with superiorsubluxation suggestive of chronic rotator cuff arthropathy us Fidencio Oliva M.D. IMG DIAGNOSTIC IMAGING PROCED URES Final Result * (ABNORMAL) Morphology Evaluation (01/09/2024 6:42 AM NEUROLOGICAL PHYSIOTHERAPIST) RBC Morphology See Specific Findings 01/09/2024 8:09 AM NEUROLOGICAL PHYSIOTHERAPIST MK[facility] PLT Morphology Normal 01/09/2024 8:09 AM NEUROLOGICAL PHYSIOTHERAPIST [facility] PLT Estimate Adequate Adequate 01/09/2024 8:09 AM NEUROLOGICAL PHYSIOTHERAPIST MK[facility] Anisocytosis Slight(A) 01/09/2024 8:09 AM NEUROLOGICAL PHYSIOTHERAPIST MKTO Basophilic Stippling Slight(A) 01/09/2024 8:09 AM NEUROLOGICAL PHYSIOTHERAPIST MK[facility] Elliptocytes Slight(A) Not Seen 01/09/2024 8:09 AM NEUROLOGICAL PHYSIOTHERAPIST [facility] Poikilocytosis Slight(A) Not Seen 01/09/2024 8:09 AM NEUROLOGICAL PHYSIOTHERAPIST MKTO Blood 01/09/2024 6:42 AM NEUROLOGICAL PHYSIOTHERAPIST 01/09/2024 7:05 AM NEUROLOGICAL PHYSIOTHERAPIST Jeremías Fernandez M.D. LAB BLOOD ADD-ON Final Resul t [facility] [address] [place] [address], [facility] MKTO [place] [address] * (ABNORMAL) Manual Differential, Blood (01/09/2024 6:42 AM NEUROLOGICAL PHYSIOTHERAPIST) Pathologist [facility] Segmented Neutrophils 87(H) 50 - 75 % 01/09/2024 8:09 AM NEUROLOGICAL PHYSIOTHERAPIST MKTO Lymphocytes % 8(L) 18 - 42 % 01/09/2024 8:09 AM NEUROLOGICAL PHYSIOTHERAPIST MK[facility] Monocytes 1(L) 2 - 11 % 01/09/2024 8:09 AM NEUROLOGICAL PHYSIOTHERAPIST MKTO Eosinophils 1 1 - 3 % 01/09/2024 8:09 AM NEUROLOGICAL PHYSIOTHERAPIST MKTO Metamyelocytes 1(H) <1 % 01/09/2024 8:09 AM NEUROLOGICAL PHYSIOTHERAPIST MKTO Myelocytes 2(H) <0.5 % 01/09/2024 8:09 AM NEUROLOGICAL PHYSIOTHERAPIST MKTO Manual Absolute Neutrophil Count 10.27(H) 1.56 - 6.45 x10(9)/L 01/09/2024 8:09 AM NEUROLOGICAL PHYSIOTHERAPIST MKTO Comment: ----ADDITIONAL INFORMATION---- The manual absolute neutrophil count is derived from a manual differential count and therefore is not exactly comparable to the automated absolute neutrophil count. Blood 01/09/2024 6:42 AM NEUROLOGICAL PHYSIOTHERAPIST 01/09/2024 7:05 AM NEUROLOGICAL PHYSIOTHERAPIST us Jeremías Fernandez M.D. LAB BLOOD ADD-ON Final Resul t Performing Organization Address City/[facility]/ZIP Co de Phone Number [facility] [address] [place] [address], [address] [address] * Phosphorus Inorganic (01/09/2024 6:42 AM NEUROLOGICAL PHYSIOTHERAPIST) Phosphorus (Inorganic), P 2.8 2.5 - 4.5 mg/dL 01/09/2024 7:49 AM NEUROLOGICAL PHYSIOTHERAPIST [facility] Blood (Blood, Venous) 01/09/2024 6:42 AM NEUROLOGICAL PHYSIOTHERAPIST 01/09/2024 7:24 AM NEUROLOGICAL PHYSIOTHERAPIST us Jeremías Fernandez M.D. LAB BLOOD ADD-ON Final Resul t Performing Organization Address [facility] Co de Phone Number [facility] [address] [place] [address], [address] [address] * Magnesium (01/09/2024 6:42 AM NEUROLOGICAL PHYSIOTHERAPIST) Magnesium, P 1.7 1.7 - 2.3 mg/dL 01/09/2024 7:49 AM NEUROLOGICAL PHYSIOTHERAPIST [facility] Blood (Blood, Venous) 01/09/2024 6:42 AM NEUROLOGICAL PHYSIOTHERAPIST 01/09/2024 7:24 AM NEUROLOGICAL PHYSIOTHERAPIST us Jeremías Fernandez M.D. LAB BLOOD ADD-ON Final Resul t Performing Organization Address City/[facility]/ZIP Co de Phone Number [facility] [address] [place] [address], [address] [address] * (ABNORMAL) Basic Metabolic Panel (01/09/2024 6:42 AM NEUROLOGICAL PHYSIOTHERAPIST) Potassium, P 4.5 3.6 - 5.2 mmol/L 01/09/2024 7:49 AM NEUROLOGICAL PHYSIOTHERAPIST MKTO Sodium, P 141 135 - 145 mmol/L 01/09/2024 7:49 AM NEUROLOGICAL PHYSIOTHERAPIST MKTO Chloride, P 108(H) 98 - 107 mmol/L 01/09/2024 7:49 AM NEUROLOGICAL PHYSIOTHERAPIST MK[facility] Bicarbonate, P 23 22 - 29 mmol/L 01/09/2024 7:49 AM NEUROLOGICAL PHYSIOTHERAPIST MK[facility] Anion Gap, P 10 7 - 15 01/09/2024 7:49 AM NEUROLOGICAL PHYSIOTHERAPIST MK[facility] BUN (Blood Urea Nitrogen), P 41(H) 8 - 24 mg/dL 01/09/2024 7:49 AM NEUROLOGICAL PHYSIOTHERAPIST MKTO Creatinine 1.95(H) 0.74 - 1.35 mg/dL 01/09/2024 7:49 AM NEUROLOGICAL PHYSIOTHERAPIST MKTO Estimated GFR (eGFR) 33(L) >=60 mL/min/BSA 01/09/2024 7:49 AM NEUROLOGICAL PHYSIOTHERAPIST MKTO Comment: Estimated GFR calculated using the 2020 CKD_EPI creatinine equation. Calcium, Total, P 8.0(L) 8.8 - 10.2 mg/dL 01/09/2024 7:49 AM NEUROLOGICAL PHYSIOTHERAPIST MKTO Glucose, P 88 70 - 140 mg/dL 01/09/2024 7:49 AM NEUROLOGICAL PHYSIOTHERAPIST MK[facility] Blood (Blood, Venous) 01/09/2024 6:42 AM NEUROLOGICAL PHYSIOTHERAPIST 01/09/2024 7:24 AM NEUROLOGICAL PHYSIOTHERAPIST us Jeremías Fernandez M.D. LAB BLOOD ADD-ON Final Resul t [facility] [address] [place] [id number], [place] [facility] in [address] [address] * (ABNORMAL) CBC with Differential, Blood (01/09/2024 6:42 AM NEUROLOGICAL PHYSIOTHERAPIST) Hemoglobin 8.3(L) 13.2 - 16.6 g/dL 01/09/2024 8:08 AM NEUROLOGICAL PHYSIOTHERAPIST MKTO Hematocrit 26.7(L) 38.3 - 48.6 % 01/09/2024 8:08 AM NEUROLOGICAL PHYSIOTHERAPIST MKTO Erythrocytes 2.74(L) 4.35 - 5.65 x10(12)/ L 01/09/2024 8:08 AM NEUROLOGICAL PHYSIOTHERAPIST MK[facility] MCV 97.4 78.2 - 97.9 fL 01/09/2024 8:08 AM NEUROLOGICAL PHYSIOTHERAPIST MKTO RBC Distrib Width 14.6(H) 11.8 - 14.5 % 01/09/2024 8:08 AM NEUROLOGICAL PHYSIOTHERAPIST MKTO Platelet Count 245 135 - 317 x10(9)/L 01/09/2024 8:08 AM NEUROLOGICAL PHYSIOTHERAPIST MKTO Leukocytes 11.8(H) 3.4 - 9.6 x10(9)/L 01/09/2024 8:08 AM NEUROLOGICAL PHYSIOTHERAPIST MKTO Neutrophils See manual differential 1.56 - 6.45 x10(9)/L 01/09/2024 8:08 AM NEUROLOGICAL PHYSIOTHERAPIST MK[facility] Blood (Blood, Venous) 01/09/2024 6:42 AM NEUROLOGICAL PHYSIOTHERAPIST 01/09/2024 7:05 AM NEUROLOGICAL PHYSIOTHERAPIST us Jeremías Fernandez M.D. LAB BLOOD ADD-ON Final Resul t [facility] [address] [place] [address], [facility] MKTO [place] [address] * (ABNORMAL) Hepatic Function Panel (01/09/2024 6:42 AM NEUROLOGICAL PHYSIOTHERAPIST) Bilirubin, Total, P 0.2 0.0 - 1.2 mg/dL 01/09/2024 7:49 AM NEUROLOGICAL PHYSIOTHERAPIST MKTO Bilirubin, Direct, P 0.1 0.0 - 0.3 mg/dL 01/09/2024 7:49 AM NEUROLOGICAL PHYSIOTHERAPIST MKTO Aspartate Aminotransferase (AST), P 24 8 - 48 U/L 01/09/2024 7:49 AM NEUROLOGICAL PHYSIOTHERAPIST MKTO Alanine Aminotransferase (ALT), P 11 7 - 55 U/L 01/09/2024 7:49 AM NEUROLOGICAL PHYSIOTHERAPIST MKTO Alkaline Phosphatase, P 98 40 - 129 U/L 01/09/2024 7:49 AM NEUROLOGICAL PHYSIOTHERAPIST MKTO Albumin, P 2.5(L) 3.5 - 5.0 g/dL 01/09/2024 7:49 AM NEUROLOGICAL PHYSIOTHERAPIST MKTO Protein, Total, P 5.5(L) 6.3 - 7.9 g/dL 01/09/2024 7:49 AM NEUROLOGICAL PHYSIOTHERAPIST MKTO Blood (Blood, Venous) 01/09/2024 6:42 AM NEUROLOGICAL PHYSIOTHERAPIST 01/09/2024 7:24 AM NEUROLOGICAL PHYSIOTHERAPIST us Jeremías Fernandez M.D. LAB BLOOD ADD-ON Final Resul t [facility] [place] [address], [facility] MKTO [facility] [place] [address] [place] [address] * CT Chest without IV Contrast (01/08/2024 1:11 PM NEUROLOGICAL PHYSIOTHERAPIST) Anatomical Region Laterality Modality Chest, Thoracic RST LOS, Tho racic ARZ LOS, Thoracic FLA LOS N/A Computed Tomography Impressions 01/08/2024 2:48 PM NEUROLOGICAL PHYSIOTHERAPIST 1. Loculated right pleural collection with adjacent consolidation or atelectasis in the right lower lobe. 2. Right chest tube pigtail is positioned at the interface of the pleural space with the adjacent chest wall. Correlation with chest tube function recommended. 3. No fluid collection within the chest wall. Small right chest wall emphysema. Narrative 01/08/2024 2:48 PM NEUROLOGICAL PHYSIOTHERAPIST EXAM: CT CHEST WITHOUT IV CONTRAST COMPARISON: [...] right chest wallemphysema. us Fidencio Oliva M.D. IMG CT PROCEDURES Final Resul t * DX Chest 1 View (01/08/2024 7:16 AM NEUROLOGICAL PHYSIOTHERAPIST) Anatomical Region Laterality Modality Chest, Thoracic RST LOS, Tho racic ARZ LOS, Thoracic FLA LOS N/A Digital Radiography Impressions 01/08/2024 7:44 AM NEUROLOGICAL PHYSIOTHERAPIST Interval retraction of the right pleural catheter. The pigtail projects over the lateral chest wall soft tissues and requires correlation with positioning and catheter output. Persisting right pleural effusion/pleural thickening and right basilar airspace opacity. Narrative 01/08/2024 7:44 AM NEUROLOGICAL PHYSIOTHERAPIST EXAM: DX CHEST 1 VIEW COMPARISON: January [...] URES Final Result * (ABNORMAL) Morphology Evaluation (01/08/2024 4:47 AM NEUROLOGICAL PHYSIOTHERAPIST) RBC Morphology See Specific Findings 01/08/2024 6:16 AM NEUROLOGICAL PHYSIOTHERAPIST MKTO PLT Morphology Normal 01/08/2024 6:16 AM NEUROLOGICAL PHYSIOTHERAPIST MKTO PLT Estimate Adequate Adequate 01/08/2024 6:16 AM NEUROLOGICAL PHYSIOTHERAPIST MKTO Anisocytosis Slight(A) 01/08/2024 6:16 AM NEUROLOGICAL PHYSIOTHERAPIST MKTO Bite Cells Slight(A) Not Seen 01/08/2024 6:16 AM NEUROLOGICAL PHYSIOTHERAPIST MKTO Basophilic Stippling Slight(A) 01/08/2024 6:16 AM NEUROLOGICAL PHYSIOTHERAPIST MKTO Elliptocytes Slight(A) Not Seen 01/08/2024 6:16 AM NEUROLOGICAL PHYSIOTHERAPIST MKTO Poikilocytosis Slight(A) Not Seen 01/08/2024 6:16 AM NEUROLOGICAL PHYSIOTHERAPIST MKTO Blood 01/08/2024 4:47 AM NEUROLOGICAL PHYSIOTHERAPIST 01/08/2024 4:51 AM NEUROLOGICAL PHYSIOTHERAPIST Jeremías Fernandez M.D. LAB BLOOD ADD-ON Final Resul t [facility] [place] [address], [facility] MKTO [facility] [place] [address] [place] [address] * (ABNORMAL) Manual Differential, Blood (01/08/2024 4:47 AM NEUROLOGICAL PHYSIOTHERAPIST) Segmented Neutrophils 84(H) 50 - 75 % 01/08/2024 6:16 AM NEUROLOGICAL PHYSIOTHERAPIST MKTO Lymphocytes % 5(L) 18 - 42 % 01/08/2024 6:16 AM NEUROLOGICAL PHYSIOTHERAPIST MKTO Monocytes 8 2 - 11 % 01/08/2024 6:16 AM NEUROLOGICAL PHYSIOTHERAPIST MKTO Eosinophils 1 1 - 3 % 01/08/2024 6:16 AM NEUROLOGICAL PHYSIOTHERAPIST MKTO Metamyelocytes 2(H) <1 % 01/08/2024 6:16 AM NEUROLOGICAL PHYSIOTHERAPIST MKTO Manual Absolute Neutrophil Count 12.60(H) 1.56 - 6.45 x10(9)/L 01/08/2024 6:16 AM NEUROLOGICAL PHYSIOTHERAPIST MKTO Comment: ----ADDITIONAL INFORMATION---- The manual absolute neutrophil count is derived from a manual differential count and therefore is not exactly comparable to the automated absolute neutrophil count. Blood 01/08/2024 4:47 AM NEUROLOGICAL PHYSIOTHERAPIST 01/08/2024 4:51 AM NEUROLOGICAL PHYSIOTHERAPIST Jeremías Fernandez M.D. LAB BLOOD ADD-ON Final Resul t Performing Organization Address City/[facility] Co de Phone Number [facility] [address] [place] [address], [place] [phone] * (ABNORMAL) Phosphorus Inorganic (01/08/2024 4:47 AM NEUROLOGICAL PHYSIOTHERAPIST) Phosphorus (Inorganic), P 2.1(L) 2.5 - 4.5 mg/dL 01/08/2024 5:20 AM NEUROLOGICAL PHYSIOTHERAPIST [facility] Blood (Blood, Venous) 01/08/2024 4:47 AM NEUROLOGICAL PHYSIOTHERAPIST 01/08/2024 4:51 AM NEUROLOGICAL PHYSIOTHERAPIST us Jeremías Fernandez M.D. LAB BLOOD ADD-ON Final Resul t Performing Organization Address City/[facility] Co de Phone Number [facility] [address] [place] [address], [place] [phone] * (ABNORMAL) Magnesium (01/08/2024 4:47 AM NEUROLOGICAL PHYSIOTHERAPIST) Magnesium, P 1.6(L) 1.7 - 2.3 mg/dL 01/08/2024 5:20 AM NEUROLOGICAL PHYSIOTHERAPIST TO Blood (Blood, Venous) 01/08/2024 4:47 AM NEUROLOGICAL PHYSIOTHERAPIST 01/08/2024 4:51 AM NEUROLOGICAL PHYSIOTHERAPIST us Jeremías Fernandez M.D. LAB BLOOD ADD-ON Final Resul t Performing Organization Address City/[facility]/ZIP Co de Phone Number [facility] [address] [place] [address], [facility] MKTO [facility] [place] [address] [place] [address] * (ABNORMAL) Basic Metabolic Panel (01/08/2024 4:47 AM NEUROLOGICAL PHYSIOTHERAPIST) Pathologist [facility] Potassium, P 4.3 3.6 - 5.2 mmol/L 01/08/2024 5:20 AM NEUROLOGICAL PHYSIOTHERAPIST MKTO Sodium, P 140 135 - 145 mmol/L 01/08/2024 5:20 AM NEUROLOGICAL PHYSIOTHERAPIST MKTO Chloride, P 107 98 - 107 mmol/L 01/08/2024 5:20 AM NEUROLOGICAL PHYSIOTHERAPIST MK[facility] Bicarbonate, P 23 22 - 29 mmol/L 01/08/2024 5:20 AM NEUROLOGICAL PHYSIOTHERAPIST MKTO Anion Gap, P 10 7 - 15 01/08/2024 5:20 AM NEUROLOGICAL PHYSIOTHERAPIST [facility] BUN (Blood Urea Nitrogen), P 41(H) 8 - 24 mg/dL 01/08/2024 5:20 AM NEUROLOGICAL PHYSIOTHERAPIST MKTO Creatinine 1.98(H) 0.74 - 1.35 mg/dL 01/08/2024 5:20 AM NEUROLOGICAL PHYSIOTHERAPIST MKTO Estimated GFR (eGFR) 32(L) >=60 mL/min/BSA 01/08/2024 5:20 AM NEUROLOGICAL PHYSIOTHERAPIST MKTO Comment: Estimated GFR calculated using the 2020 CKD_EPI creatinine equation. Calcium, Total, P 8.1(L) 8.8 - 10.2 mg/dL 01/08/2024 5:20 AM NEUROLOGICAL PHYSIOTHERAPIST MKTO Glucose, P 101 70 - 140 mg/dL 01/08/2024 5:20 AM NEUROLOGICAL PHYSIOTHERAPIST MKTO Blood (Blood, Venous) 01/08/2024 4:47 AM NEUROLOGICAL PHYSIOTHERAPIST 01/08/2024 4:51 AM NEUROLOGICAL PHYSIOTHERAPIST us Jeremías Fernandez M.D. LAB BLOOD ADD-ON Final Resul t [facility] [place] [address], [facility] in [address] [id number] * (ABNORMAL) CBC with Differential, Blood (01/08/2024 4:47 AM NEUROLOGICAL PHYSIOTHERAPIST) Pathologist [facility] Hemoglobin 8.7(L) 13.2 - 16.6 g/dL 01/08/2024 6:16 AM NEUROLOGICAL PHYSIOTHERAPIST MKTO Hematocrit 28.0(L) 38.3 - 48.6 % 01/08/2024 6:16 AM NEUROLOGICAL PHYSIOTHERAPIST MKTO Erythrocytes 2.91(L) 4.35 - 5.65 x10(12)/ L 01/08/2024 6:16 AM NEUROLOGICAL PHYSIOTHERAPIST MKTO MCV 96.2 78.2 - 97.9 fL 01/08/2024 6:16 AM NEUROLOGICAL PHYSIOTHERAPIST MKTO RBC Distrib Width 14.6(H) 11.8 - 14.5 % 01/08/2024 6:16 AM NEUROLOGICAL PHYSIOTHERAPIST MKTO Platelet Count 248 135 - 317 x10(9)/L 01/08/2024 6:16 AM NEUROLOGICAL PHYSIOTHERAPIST MKTO Leukocytes 15.0(H) 3.4 - 9.6 x10(9)/L 01/08/2024 6:16 AM NEUROLOGICAL PHYSIOTHERAPIST MKTO Neutrophils See manual differential 1.56 - 6.45 x10(9)/L 01/08/2024 6:16 AM NEUROLOGICAL PHYSIOTHERAPIST MKTO Blood (Blood, Venous) 01/08/2024 4:47 AM NEUROLOGICAL PHYSIOTHERAPIST 01/08/2024 4:51 AM NEUROLOGICAL PHYSIOTHERAPIST us Jeremías Fernandez M.D. LAB BLOOD ADD-ON Final Resul t [facility] [address] [place] [address], [address] [address] * (ABNORMAL) Hepatic Function Panel (01/08/2024 4:47 AM NEUROLOGICAL PHYSIOTHERAPIST) Bilirubin, Total, P 0.2 0.0 - 1.2 mg/dL 01/08/2024 5:20 AM NEUROLOGICAL PHYSIOTHERAPIST MKTO Bilirubin, Direct, P 0.1 0.0 - 0.3 mg/dL 01/08/2024 5:20 AM NEUROLOGICAL PHYSIOTHERAPIST MKTO Aspartate Aminotransferase (AST), P 26 8 - 48 U/L 01/08/2024 5:20 AM NEUROLOGICAL PHYSIOTHERAPIST MKTO Alanine Aminotransferase (ALT), P 12 7 - 55 U/L 01/08/2024 5:20 AM NEUROLOGICAL PHYSIOTHERAPIST MKTO Alkaline Phosphatase, P 105 40 - 129 U/L 01/08/2024 5:20 AM NEUROLOGICAL PHYSIOTHERAPIST MKTO Albumin, P 2.5(L) 3.5 - 5.0 g/dL 01/08/2024 5:20 AM NEUROLOGICAL PHYSIOTHERAPIST MKTO Protein, Total, P 5.7(L) 6.3 - 7.9 g/dL 01/08/2024 5:20 AM NEUROLOGICAL PHYSIOTHERAPIST MKTO Blood (Blood, Venous) 01/08/2024 4:47 AM NEUROLOGICAL PHYSIOTHERAPIST 01/08/2024 4:51 AM NEUROLOGICAL PHYSIOTHERAPIST us Jeremías Fernandez M.D. LAB BLOOD ADD-ON Final Resul t Performing Organization Address City/[facility]/ZIP Co de Phone Number [facility] [address] [place] [address] * (ABNORMAL) Hemoglobin (01/07/2024 3:50 PM NEUROLOGICAL PHYSIOTHERAPIST) Hemoglobin 9.1(L) 13.2 - 16.6 g/dL 01/07/2024 3:59 PM NEUROLOGICAL PHYSIOTHERAPIST MKTO Blood (Blood, Venous) 01/07/2024 3:50 PM NEUROLOGICAL PHYSIOTHERAPIST 01/07/2024 3:55 PM NEUROLOGICAL PHYSIOTHERAPIST us Chapito Velazquez D.O. LAB BLOOD ADD-ON Final Resul t Performing Organization Address City/[facility]/ZIP Co de Phone Number [facility] [address] [place] [address], [place] [address] * DX Chest 1 View (01/07/2024 7:14 AM NEUROLOGICAL PHYSIOTHERAPIST) Anatomical Region Laterality Modality Chest, Thoracic RST LOS, Tho racic ARZ LOS, Thoracic FLA LOS N/A Digital Radiography Impressions 01/07/2024 7:42 AM NEUROLOGICAL PHYSIOTHERAPIST No significant change. Narrative 01/07/2024 7:42 AM NEUROLOGICAL PHYSIOTHERAPIST EXAM: DX CHEST 1 VIEW COMPARISON: Chest [...] * (ABNORMAL) Morphology Evaluation (01/07/2024 5:29 AM NEUROLOGICAL PHYSIOTHERAPIST) RBC Morphology See Specific Findings 01/07/2024 6:24 AM NEUROLOGICAL PHYSIOTHERAPIST MKTO PLT Morphology Normal 01/07/2024 6:24 AM NEUROLOGICAL PHYSIOTHERAPIST MKTO PLT Estimate Adequate Adequate 01/07/2024 6:24 AM NEUROLOGICAL PHYSIOTHERAPIST MKTO Anisocytosis Slight(A) 01/07/2024 6:24 AM NEUROLOGICAL PHYSIOTHERAPIST MKTO Basophilic Stippling Slight(A) 01/07/2024 6:24 AM NEUROLOGICAL PHYSIOTHERAPIST MKTO Poikilocytosis Slight(A) Not Seen 01/07/2024 6:24 AM NEUROLOGICAL PHYSIOTHERAPIST MKTO Blood 01/07/2024 5:29 AM NEUROLOGICAL PHYSIOTHERAPIST 01/07/2024 5:51 AM NEUROLOGICAL PHYSIOTHERAPIST us Jeremías Fernandez M.D. LAB BLOOD ADD-ON Final Resul t Performing Organization Address City/[facility]/ZIP Co de Phone Number [facility] [address] [place] [address], [address] [address] * Phosphorus Inorganic (01/07/2024 5:29 AM NEUROLOGICAL PHYSIOTHERAPIST) Phosphorus (Inorganic), P 2.5 2.5 - 4.5 mg/dL 01/07/2024 6:19 AM NEUROLOGICAL PHYSIOTHERAPIST MKTO Blood (Blood, Venous) 01/07/2024 5:29 AM NEUROLOGICAL PHYSIOTHERAPIST 01/07/2024 5:51 AM NEUROLOGICAL PHYSIOTHERAPIST us Jeremías Fernandez M.D. LAB BLOOD ADD-ON Final Resul t Performing Organization Address City/[facility]/ZIP Co de Phone Number [facility] [address] [place] [address], [address] [address] * Magnesium (01/07/2024 5:29 AM NEUROLOGICAL PHYSIOTHERAPIST) Magnesium, P 1.7 1.7 - 2.3 mg/dL 01/07/2024 6:19 AM NEUROLOGICAL PHYSIOTHERAPIST MKTO Blood (Blood, Venous) 01/07/2024 5:29 AM NEUROLOGICAL PHYSIOTHERAPIST 01/07/2024 5:51 AM NEUROLOGICAL PHYSIOTHERAPIST us Jeremías Fernandez M.D. LAB BLOOD ADD-ON Final Resul t Performing Organization Address City/[facility] Co de Phone Number [facility] [address] [place] [address], [facility] MKTO [address] [address] * (ABNORMAL) Basic Metabolic Panel (01/07/2024 5:29 AM NEUROLOGICAL PHYSIOTHERAPIST) Pathologist [facility] Potassium, P 3.3(L) 3.6 - 5.2 mmol/L 01/07/2024 6:19 AM NEUROLOGICAL PHYSIOTHERAPIST MKTO Sodium, P 141 135 - 145 mmol/L 01/07/2024 6:19 AM NEUROLOGICAL PHYSIOTHERAPIST MKTO Chloride, P 105 98 - 107 mmol/L 01/07/2024 6:19 AM NEUROLOGICAL PHYSIOTHERAPIST MKTO Bicarbonate, P 24 22 - 29 mmol/L 01/07/2024 6:19 AM NEUROLOGICAL PHYSIOTHERAPIST MKTO Anion Gap, P 12 7 - 15 01/07/2024 6:19 AM NEUROLOGICAL PHYSIOTHERAPIST MKTO BUN (Blood Urea Nitrogen), P 41(H) 8 - 24 mg/dL 01/07/2024 6:19 AM NEUROLOGICAL PHYSIOTHERAPIST MKTO Creatinine 2.01(H) 0.74 - 1.35 mg/dL 01/07/2024 6:19 AM NEUROLOGICAL PHYSIOTHERAPIST MKTO Estimated GFR (eGFR) 32(L) >=60 mL/min/BSA 01/07/2024 6:19 AM NEUROLOGICAL PHYSIOTHERAPIST MKTO Comment: Estimated GFR calculated using the 2020 CKD_EPI creatinine equation. Calcium, Total, P 8.1(L) 8.8 - 10.2 mg/dL 01/07/2024 6:19 AM NEUROLOGICAL PHYSIOTHERAPIST MKTO Glucose, P 108 70 - 140 mg/dL 01/07/2024 6:19 AM NEUROLOGICAL PHYSIOTHERAPIST MKTO Blood (Blood, Venous) 01/07/2024 5:29 AM NEUROLOGICAL PHYSIOTHERAPIST 01/07/2024 5:51 AM NEUROLOGICAL PHYSIOTHERAPIST Jeremías Fernandez M.D. LAB BLOOD ADD-ON Final Resul t Performing Organization Address City/[facility]/ZIP Co de Phone Number [facility] [address] [place] [address], [facility] MKTO [address] [address] * (ABNORMAL) CBC with Differential, Blood (01/07/2024 5:29 AM NEUROLOGICAL PHYSIOTHERAPIST) Hemoglobin 8.7(L) 13.2 - 16.6 g/dL 01/07/2024 6:23 AM NEUROLOGICAL PHYSIOTHERAPIST MKTO Hematocrit 26.8(L) 38.3 - 48.6 % 01/07/2024 6:23 AM NEUROLOGICAL PHYSIOTHERAPIST MKTO Erythrocytes 2.84(L) 4.35 - 5.65 x10(12)/L 01/07/2024 6:23 AM NEUROLOGICAL PHYSIOTHERAPIST MKTO MCV 94.4 78.2 - 97.9 fL 01/07/2024 6:23 AM NEUROLOGICAL PHYSIOTHERAPIST MKTO RBC Distrib Width 14.7(H) 11.8 - 14.5 % 01/07/2024 6:23 AM NEUROLOGICAL PHYSIOTHERAPIST MKTO Platelet Count 263 135 - 317 x10(9)/L 01/07/2024 6:23 AM NEUROLOGICAL PHYSIOTHERAPIST MKTO Leukocytes 14.9(H) 3.4 - 9.6 x10(9)/L 01/07/2024 6:23 AM NEUROLOGICAL PHYSIOTHERAPIST MKTO Neutrophils 12.77(H) 1.56 - 6.45 x10(9)/L 01/07/2024 6:23 AM NEUROLOGICAL PHYSIOTHERAPIST MKTO Lymphocytes 0.90(L) 0.95 - 3.07 x10(9)/L 01/07/2024 6:23 AM NEUROLOGICAL PHYSIOTHERAPIST MKTO Monocytes 0.87(H) 0.26 - 0.81 x10(9)/L 01/07/2024 6:23 AM NEUROLOGICAL PHYSIOTHERAPIST MKTO Eosinophils 0.23 0.03 - 0.48 x10(9)/L 01/07/2024 6:23 AM NEUROLOGICAL PHYSIOTHERAPIST MKTO Basophils 0.09(H) 0.01 - 0.08 x10(9)/L 01/07/2024 6:23 AM NEUROLOGICAL PHYSIOTHERAPIST MKTO Blood (Blood, Venous) 01/07/2024 5:29 AM NEUROLOGICAL PHYSIOTHERAPIST 01/07/2024 5:51 AM NEUROLOGICAL PHYSIOTHERAPIST us Jeremías Fernandez M.D. LAB BLOOD ADD-ON Final Resul t [facility] [address] [place] [address], [facility] in [address] [address] * (ABNORMAL) Hepatic Function Panel (01/07/2024 5:29 AM NEUROLOGICAL PHYSIOTHERAPIST) Bilirubin, Total, P <0.2 0.0 - 1.2 mg/dL 01/07/2024 6:19 AM NEUROLOGICAL PHYSIOTHERAPIST MKTO Bilirubin, Direct, P 0.1 0.0 - 0.3 mg/dL 01/07/2024 6:19 AM NEUROLOGICAL PHYSIOTHERAPIST MKTO Aspartate Aminotransferase (AST), P 25 8 - 48 U/L 01/07/2024 6:19 AM NEUROLOGICAL PHYSIOTHERAPIST MKTO Alanine Aminotransferase (ALT), P 15 7 - 55 U/L 01/07/2024 6:19 AM NEUROLOGICAL PHYSIOTHERAPIST MKTO Alkaline Phosphatase, P 110 40 - 129 U/L 01/07/2024 6:19 AM NEUROLOGICAL PHYSIOTHERAPIST MKTO Albumin, P 2.5(L) 3.5 - 5.0 g/dL 01/07/2024 6:19 AM NEUROLOGICAL PHYSIOTHERAPIST MKTO Protein, Total, P 5.2(L) 6.3 - 7.9 g/dL 01/07/2024 6:19 AM NEUROLOGICAL PHYSIOTHERAPIST MKTO Blood (Blood, Venous) 01/07/2024 5:29 AM NEUROLOGICAL PHYSIOTHERAPIST 01/07/2024 5:51 AM NEUROLOGICAL PHYSIOTHERAPIST us Jeremías Fernandez M.D. LAB BLOOD ADD-ON Final Resul t [facility] [place] [address], [facility] in [address] [address] * Tropheryma whipplei PCR, Blood (01/06/2024 11:36 AM NEUROLOGICAL PHYSIOTHERAPIST) Specimen Source BLOOD 12:26 PM NEUROLOGICAL PHYSIOTHERAPIST DTL Tropheryma whipplei PCR, B, Result Negative Not Applicable 01/08/2024 12:26 PM NEUROLOGICAL PHYSIOTHERAPIST DTL Comment: ----ADDITIONAL INFORMATION---- This test was developed and its performance characteristics determined by [facility] in a manner consistent with CLIA requirements. This test has not been cleared or approved by the U.S. Food and Drug Administration. Blood (Blood, Venous) 01/06/2024 11:36 AM NEUROLOGICAL PHYSIOTHERAPIST 01/07/2024 8:06 AM NEUROLOGICAL PHYSIOTHERAPIST Sarah Rose M.D. LAB MICROBIOLOG Y - BLOOD ORDERABLES Final Result Performing Organization Address City/[facility]/ZIP Co de Phone Number [facility] [address] [place] [address], [facility] DT [address] [facility] [address] [place] [address] * [id number] [facility] Test for Pathogen Detection - Miscellaneous Test (01/06/2024 11:36 AM NEUROLOGICAL PHYSIOTHERAPIST) Test Name [facility] Test for Pathogen Detection 01/06/2024 11:49 AM NEUROLOGICAL PHYSIOTHERAPIST MKTO Result Specimen sent out; results to follow DEFAULT 01/06/2024 11:49 AM NEUROLOGICAL PHYSIOTHERAPIST MKTO Blood (Blood, Venous) 01/06/2024 11:36 AM NEUROLOGICAL PHYSIOTHERAPIST 01/06/2024 11:49 AM NEUROLOGICAL PHYSIOTHERAPIST Sarah Rose M.D. LAB MISC ORDERA BLES Final Result Performing Organization Address City/[facility] Co de Phone Number [facility] [address] [place] [address], [facility] MKTO [facility] [place] [address] [place] [address] * Misc [facility] - Sent Out Lab (01/06/2024 10:59 AM NEUROLOGICAL PHYSIOTHERAPIST) Test Name [facility] Test for Pathogen Detection 01/06/2024 11:49 AM NEUROLOGICAL PHYSIOTHERAPIST CYDNEY Result SEE COMMENT 01/11/2024 9:44 AM NEUROLOGICAL PHYSIOTHERAPIST CYDNEY Comment: For final report, select Lab-Send Out Lab Results hyperlink below. 01/06/2024 10:5 9 AM NEUROLOGICAL PHYSIOTHERAPIST 01/07/2024 8:53 AM NEUROLOGICAL PHYSIOTHERAPIST us Sarah Rose M.D. LAB MISC ORDERA BLES Final Result [facility] [address] [place] [address], [facility] CYDNEY [facility] [address] [place] [id number] * DX Chest 1 View (01/06/2024 7:19 AM NEUROLOGICAL PHYSIOTHERAPIST) Anatomical Region Laterality Modality Chest, Thoracic RST LOS, Tho racic ARZ LOS, Thoracic FLA LOS N/A Digital Radiography Impressions 01/06/2024 7:32 AM NEUROLOGICAL PHYSIOTHERAPIST Since 01/02/2024, placement of a right pleural pigtail catheter. Slight decrease in size of the small right pleural effusion. Bibasilar consolidation likely represents compressive atelectasis in the setting of effusion. No pneumothorax. The left lung is relatively well aerated. Normal heart size. Aortic calcifications. Right IJ CVC with tip in the mid SVC. Narrative 01/06/2024 7:32 AM NEUROLOGICAL PHYSIOTHERAPIST EXAM: DX CHEST 1 VIEW Procedure Note [...] CVC with tip in the mid SVC. Fidencio Oliva M.D. IMG DIAGNOSTIC IMAGING PROCED URES Final Result * (ABNORMAL) Morphology Evaluation (01/06/2024 5:37 AM NEUROLOGICAL PHYSIOTHERAPIST) RBC Morphology See Specific Findings 01/06/2024 6:34 AM NEUROLOGICAL PHYSIOTHERAPIST MKTO PLT Morphology Normal 01/06/2024 6:34 AM NEUROLOGICAL PHYSIOTHERAPIST MKTO PLT Estimate Adequate Adequate 01/06/2024 6:34 AM NEUROLOGICAL PHYSIOTHERAPIST MKTO Basophilic Stippling Slight(A) 01/06/2024 6:34 AM NEUROLOGICAL PHYSIOTHERAPIST MKTO Poikilocytosis Slight(A) Not Seen 01/06/2024 6:34 AM NEUROLOGICAL PHYSIOTHERAPIST MKTO Blood 01/06/2024 5:37 AM NEUROLOGICAL PHYSIOTHERAPIST 01/06/2024 5:47 AM NEUROLOGICAL PHYSIOTHERAPIST Vidhya CarringtonC. LAB BLOOD ADD-ON Final Resu lt Performing Organization Address [facility] Co de Phone Number [facility] [address] [place] [address], [facility] MKTO [facility] [address] * (ABNORMAL) Manual Differential, Blood (01/06/2024 5:37 AM NEUROLOGICAL PHYSIOTHERAPIST) Segmented Neutrophils 87(H) 50 - 75 % 01/06/2024 6:34 AM NEUROLOGICAL PHYSIOTHERAPIST MKTO Lymphocytes % 1(L) 18 - 42 % 01/06/2024 6:34 AM NEUROLOGICAL PHYSIOTHERAPIST MKTO Monocytes 5 2 - 11 % 01/06/2024 6:34 AM NEUROLOGICAL PHYSIOTHERAPIST MKTO Eosinophils 3 1 - 3 % 01/06/2024 6:34 AM NEUROLOGICAL PHYSIOTHERAPIST MKTO Basophils 1 0 - 2 % 01/06/2024 6:34 AM NEUROLOGICAL PHYSIOTHERAPIST MKTO Metamyelocytes 1(H) <1 % 01/06/2024 6:34 AM NEUROLOGICAL PHYSIOTHERAPIST MKTO Myelocytes 2(H) <0.5 % 01/06/2024 6:34 AM NEUROLOGICAL PHYSIOTHERAPIST MKTO Manual Absolute Neutrophil Count 12.44(H) 1.56 - 6.45 x10(9)/L 01/06/2024 6:34 AM NEUROLOGICAL PHYSIOTHERAPIST MKTO Comment: ----ADDITIONAL INFORMATION---- The manual absolute neutrophil count is derived from a manual differential count and therefore is not exactly comparable to the automated absolute neutrophil count. Blood 01/06/2024 5:37 AM NEUROLOGICAL PHYSIOTHERAPIST 01/06/2024 5:47 AM NEUROLOGICAL PHYSIOTHERAPIST Vidhya CarringtonC. LAB BLOOD ADD-ON Final Resu lt Performing Organization Address City/[facility]/ZIP Co de Phone Number [facility] [address] [place] [address], [place] [address] * (ABNORMAL) Magnesium (01/06/2024 5:37 AM NEUROLOGICAL PHYSIOTHERAPIST) Pathologist [facility] Magnesium, P 1.5(L) 1.7 - 2.3 mg/dL 01/06/2024 6:11 AM NEUROLOGICAL PHYSIOTHERAPIST MKTO Blood (Blood, Venous) 01/06/2024 5:37 AM NEUROLOGICAL PHYSIOTHERAPIST 01/06/2024 5:47 AM NEUROLOGICAL PHYSIOTHERAPIST us Vidhya Tovar P.A.-C. LAB BLOOD ADD-ON Final Resu lt Performing Organization Address [facility] Co de Phone Number [facility] [address] [place] [address] * (ABNORMAL) CBC with Differential, Blood (01/06/2024 5:37 AM NEUROLOGICAL PHYSIOTHERAPIST) Pathologist [facility] Hemoglobin 9.2(L) 13.2 - 16.6 g/dL 01/06/2024 6:33 AM NEUROLOGICAL PHYSIOTHERAPIST MKTO Hematocrit 28.9(L) 38.3 - 48.6 % 01/06/2024 6:33 AM NEUROLOGICAL PHYSIOTHERAPIST MKTO Erythrocytes 3.07(L) 4.35 - 5.65 x10(12)/ L 01/06/2024 6:33 AM NEUROLOGICAL PHYSIOTHERAPIST MKTO MCV 94.1 78.2 - 97.9 fL 01/06/2024 6:33 AM NEUROLOGICAL PHYSIOTHERAPIST MKTO RBC Distrib Width 15.0(H) 11.8 - 14.5 % 01/06/2024 6:33 AM NEUROLOGICAL PHYSIOTHERAPIST MKTO Platelet Count 285 135 - 317 x10(9)/L 01/06/2024 6:33 AM NEUROLOGICAL PHYSIOTHERAPIST MKTO Leukocytes 14.3(H) 3.4 - 9.6 x10(9)/L 01/06/2024 6:33 AM NEUROLOGICAL PHYSIOTHERAPIST MKTO Neutrophils See manual differential 1.56 - 6.45 x10(9)/L 01/06/2024 6:33 AM NEUROLOGICAL PHYSIOTHERAPIST MKTO Blood (Blood, Venous) 01/06/2024 5:37 AM NEUROLOGICAL PHYSIOTHERAPIST 01/06/2024 5:47 AM NEUROLOGICAL PHYSIOTHERAPIST us Vidhya Tovar P.A.-C. LAB BLOOD ADD-ON Final Resu lt [facility] [address] [place] [address], [facility] MKTO [facility] [place] [address] [place] [address] * (ABNORMAL) Renal Function Panel (01/06/2024 5:37 AM NEUROLOGICAL PHYSIOTHERAPIST) Potassium, P 3.3(L) 3.6 - 5.2 mmol/L 01/06/2024 6:11 AM NEUROLOGICAL PHYSIOTHERAPIST MKTO Sodium, P 142 135 - 145 mmol/L 01/06/2024 6:11 AM NEUROLOGICAL PHYSIOTHERAPIST MKTO Chloride, P 104 98 - 107 mmol/L 01/06/2024 6:11 AM NEUROLOGICAL PHYSIOTHERAPIST MKTO Bicarbonate, P 25 22 - 29 mmol/L 01/06/2024 6:11 AM NEUROLOGICAL PHYSIOTHERAPIST MKTO Anion Gap, P 13 7 - 15 01/06/2024 6:11 AM NEUROLOGICAL PHYSIOTHERAPIST MKTO BUN (Blood Urea Nitrogen), P 37(H) 8 - 24 mg/dL 01/06/2024 6:11 AM NEUROLOGICAL PHYSIOTHERAPIST MKTO Creatinine 1.91(H) 0.74 - 1.35 mg/dL 01/06/2024 6:11 AM NEUROLOGICAL PHYSIOTHERAPIST MKTO Estimated GFR (eGFR) 34(L) >=60 mL/min/BSA 01/06/2024 6:11 AM NEUROLOGICAL PHYSIOTHERAPIST MKTO Comment: Estimated GFR calculated using the 2020 CKD_EPI creatinine equation. Calcium, Total, P 8.4(L) 8.8 - 10.2 mg/dL 01/06/2024 6:11 AM NEUROLOGICAL PHYSIOTHERAPIST MKTO Glucose, P 92 70 - 140 mg/dL 01/06/2024 6:11 AM NEUROLOGICAL PHYSIOTHERAPIST MKTO Albumin, P 2.7(L) 3.5 - 5.0 g/dL 01/06/2024 6:11 AM NEUROLOGICAL PHYSIOTHERAPIST MKTO Phosphorus (Inorganic), P 2.7 2.5 - 4.5 mg/dL 01/06/2024 6:11 AM NEUROLOGICAL PHYSIOTHERAPIST MKTO Blood (Blood, Venous) 01/06/2024 5:37 AM NEUROLOGICAL PHYSIOTHERAPIST 01/06/2024 5:47 AM NEUROLOGICAL PHYSIOTHERAPIST us Vidhya Tovar P.A.-C. LAB BLOOD ADD-ON Final Resu lt Performing Organization Address City/[facility] Co de Phone Number [facility] [address] [place] [address], [facility] MKTO [facility] [address] * ECG 12 Lead (01/06/2024 5:32 AM NEUROLOGICAL PHYSIOTHERAPIST) Ventricular Rate ECG/Min 98 BPM MUSE VA Interval 164 ms MUSE QRSD Interval 128 ms MUSE QT Interval 398 ms MUSE QTC Interval 508 ms MUSE P [place] 52 degrees MUSE R [place] -72 degrees MUSE T [place] 53 degrees MUSE 01/06/2024 5:32 AM NEUROLOGICAL PHYSIOTHERAPIST 01/06/2024 5:40 AM NEUROLOGICAL PHYSIOTHERAPIST Impressions MUSE - 01/06/2024 5:40 AM NEUROLOGICAL PHYSIOTHERAPIST Normal sinus rhythm Right bundle branch block [...] Laura Chavez APRN, C.N.P. ECG ORDERABLES Sury l Result Performing Organization Address City/[facility]/ZIP Co de Phone Number MUSE NA * IR Chest Tube Placement (01/05/2024 1:42 PM NEUROLOGICAL PHYSIOTHERAPIST) Anatomical Region Laterality Modality Chest, Vascular Intervention al RST LOS, Vascular Interventional ARZ LOS, Vascular Interventional FLA LOS N/A X-Ray Angiography Impressions 01/05/2024 2:17 PM NEUROLOGICAL PHYSIOTHERAPIST 1. Right chest tube placement. Narrative 01/05/2024 2:17 PM NEUROLOGICAL PHYSIOTHERAPIST EXAM: IR CHEST TUBE PLACEMENT HISTORY: R [...] medications. Patient education provided by a care sales team leader. Patient was ready to learn with no apparent learning barriers were identified. Post-procedure care explained; patient expressed understanding of the content. PROCEDURE DETAILS: Sedation: None. Local anesthesia was achieved with lidocaine. Sedation time: None Estimated Blood Loss: Less than 10 mL. TECHNIQUE: Imaging guidance for drain insertion: Ultrasound and fluoroscopy with permanent image storage Access side: Right Catheter: 12 [place] multipurpose pigtail drain Technique: Image guidance was used to localize the collection. A 5 [place] Yueh needle catheter was used to access the collection under real time image guidance, and images were saved to PACS. Aspiration yielded purulent fluid. A guidewire was inserted, and the tract was dilated to accommodate a 12 [place] pigtail drain. The catheter was secured with [...] medications. Patient education provided by a care sales team leader. Patient was ready to learn withno apparent learning barriers were identified. Post-procedure careexplained; patient expressed understanding of the content. PROCEDURE DETAILS: Sedation: None. Local anesthesia was achieved with lidocaine. Sedation time: None Estimated Blood Loss: Less than 10 mL. TECHNIQUE: Imaging guidance for drain insertion: Ultrasound and fluoroscopy withpermanent image storage Access side: Right Catheter: 12 [place] multipurpose pigtail drain Technique: Image guidance was used to localize the collection. A 5 French[place]ueh needle catheter was used to access the collection under real timeimage guidance, and images were saved to PACS. Aspiration yielded purulentfluid. A guidewire was inserted, and the tract was dilated to accommodate a 12 [place] pigtail drain. Thecatheter was secured with 2-0 [...] * Glucose, Body Fluid (01/05/2024 12:50 PM NEUROLOGICAL PHYSIOTHERAPIST) Glucose, BF 49 See Comment mg/dL 01/06/2024 11:13 AM NEUROLOGICAL PHYSIOTHERAPIST DTL Comment: ----ADDITIONAL INFORMATION---- Body fluid glucose [...] cystic lesions. All other fluids refer to [email or web address] for further interpretive information. This test has been modified from the tower air traffic control specialist's instructions. Its performance characteristics were determined by [facility] in a manner consistent with CLIA requirements. This test has not been cleared or approved by the U.S. Food and Drug Administration. Fluid Type, Glucose PLEURAL 01/05 10:14 AM NEUROLOGICAL PHYSIOTHERAPIST DT Fluid (Pleural Fluid) 01/05/2024 12:50 PM NEUROLOGICAL PHYSIOTHERAPIST 01/06/2024 10:01 AM NEUROLOGICAL PHYSIOTHERAPIST Fidencio Oliva M.D. LAB BODY FLUIDS AND STOOLS OR DERABLES Final Result [facility] [place] [address] [place] [address], [facility] [address] [place] [address] * Triglycerides, Body Fluid (01/05/2024 12:50 PM NEUROLOGICAL PHYSIOTHERAPIST) Triglycerides, BF 31 See Comment mg/dL 01/06/2024 11:13 AM NEUROLOGICAL PHYSIOTHERAPIST DTL Comment: ----ADDITIONAL INFORMATION---- Pleural fluid triglyceride concentrations > 110 mg/dL are consistent with chylous effusions. Triglyceride concentrations <50 mg/dL are usually not due to chylous effusions. Peritoneal fluid triglyceride concentrations > 187 mg/dL are most consistent with chylous effusion. All other fluids refer to [email or web address] for further interpretive information. This test has been modified from the tower air traffic control specialist's instructions. Its performance characteristics were determined by [facility] in a manner consistent with CLIA requirements. This test has not been cleared or approved by the U.S. Food and Drug Administration. Fluid Type Pleural 01/06/2024 10:14 AM NEUROLOGICAL PHYSIOTHERAPIST DTL Fluid (Pleural Fluid) 01/05/2024 12:50 PM NEUROLOGICAL PHYSIOTHERAPIST 01/06/2024 10:01 AM NEUROLOGICAL PHYSIOTHERAPIST us Fidencio Oliva M.D. LAB BODY FLUIDS AND STOOLS OR DERABLES Final Result [facility] [address] [place] [address], [facility] [address] [place] [address] * Protein, Total, Body Fluid (01/05/2024 12:50 PM NEUROLOGICAL PHYSIOTHERAPIST) Protein, Total, BF 2.6 See Comment g/dL 01/06/2024 11:13 AM NEUROLOGICAL PHYSIOTHERAPIST DT Comment: ----ADDITIONAL INFORMATION---- A pleural fluid total [...] clinical findings. All other fluids refer to [email or web address] for further interpretive information. This test has been modified from the tower air traffic control specialist's instructions. Its performance characteristics were determined by [facility] in a manner consistent with CLIA requirements. This test has not been cleared or approved by the U.S. Food and Drug Administration. Fluid Type, Protein, Total PLEURAL 01/06/2024 10:14 AM NEUROLOGICAL PHYSIOTHERAPIST DTL Fluid (Pleural Fluid) 01/05/2024 12:50 PM NEUROLOGICAL PHYSIOTHERAPIST 01/06/2024 10:01 AM NEUROLOGICAL PHYSIOTHERAPIST us Fidencio Oliva M.D. LAB BODY FLUIDS AND STOOLS OR DERABLES Final Result [facility] [address] [place] [address], [place] DTL [facility] [address] [place] [address] * pH, Pleural Fluid (01/05/2024 12:50 PM NEUROLOGICAL PHYSIOTHERAPIST) pH, Pleural Fluid <6.80 Not Applicable pH 01/05/2024 1:59 PM NEUROLOGICAL PHYSIOTHERAPIST MKTO Comment: Clinical guidelines suggest that in parapneumonic pleural effusions, a pH <7.2 indicate the need for tube drainage. Fluid (Pleural Fluid) 01/05/2024 12:50 PM NEUROLOGICAL PHYSIOTHERAPIST 01/05/2024 1:47 PM NEUROLOGICAL PHYSIOTHERAPIST Fidencio Oliva M.D. LAB BODY FLUIDS AND STOOLS OR DERABLES Final Result Performing Organization Address City/[facility]/ZIP Co de Phone Number [facility] [address] [place] [address], [facility] MKTO [facility] [place] [address] [place] [address] * Lactate Dehydrogenase (LD), Body Fluid (01/05/2024 12:50 PM NEUROLOGICAL PHYSIOTHERAPIST) Lactate Dehydrogenase (LD), BF >9000 See Comment U/L 01/06/2024 12:17 PM NEUROLOGICAL PHYSIOTHERAPIST DT Comment: ----ADDITIONAL INFORMATION---- Pleural fluid lactate [...] clinical findings. All other fluids refer to [email or web address] for further interpretive information. This test has been modified from the tower air traffic control specialist's instructions. Its performance characteristics were determined by [facility] in a manner consistent with CLIA requirements. This test has not been cleared or approved by the U.S. Food and Drug Administration. Fluid Type, Lactate Dehydrogenase PLEURAL 01/06/2024 10:14 AM NEUROLOGICAL PHYSIOTHERAPIST DTL Fluid (Pleural Fluid) 01/05/2024 12:50 PM NEUROLOGICAL PHYSIOTHERAPIST 01/06/2024 8:29 AM NEUROLOGICAL PHYSIOTHERAPIST Fidencio Oliva M.D. LAB BODY FLUIDS AND STOOLS OR DERABLES Final Result Performing Organization Address [facility] Co de Phone Number [facility] [address] [place] [address], [facility] [address] [place] [address] * Cell Count and Differential, Body Fluid (01/05/2024 12:50 PM NEUROLOGICAL PHYSIOTHERAPIST) Fluid Type Pleural/Thor acentesis 01/05/2024 2:19 PM NEUROLOGICAL PHYSIOTHERAPIST MKTO Gross Appearance Purulent 01/05/20 24 2:40 PM NEUROLOGICAL PHYSIOTHERAPIST MKTO Total Nucleated Cells [id number] /[id number] 01/05/2024 2:40 PM NEUROLOGICAL PHYSIOTHERAPIST MKTO Comment: ----REFERENCE VALUE---- Synovial: <150 Peritoneal: <500 Pleural: <500 Pericardial: <500 ----ADDITIONAL INFORMATION---- This test has been modified from the tower air traffic control specialist's instructions. Its performance characteristics were determined by [facility] in a manner consistent with CLIA requirements. This test has not been cleared or approved by the U.S. Food and Drug Administration. Neutrophils 100 % 01/05/2024 3:04 PM NEUROLOGICAL PHYSIOTHERAPIST MKTO Comment: ----REFERENCE VALUE---- Synovial: <25% Peritoneal: <25% Pleural: <25% Pericardial: <25% Reviewed by: Dr. Morton 01/05/2024 3:05 PM NEUROLOGICAL PHYSIOTHERAPIST MKTO Fluid (Pleural Fluid) 01/05/2024 12:50 PM NEUROLOGICAL PHYSIOTHERAPIST 01/05/2024 1:47 PM NEUROLOGICAL PHYSIOTHERAPIST us Fidencio Oliva M.D. LAB BODY FLUIDS AND STOOLS OR DERABLES Final Result Performing Organization Address [facility]/ZIP Co de Phone Number [facility] [address] [place] [address], [facility] MKTO [facility] [place] [address] [place] [address] * Cytology Non-HEARING STENOGRAPHER (01/05/2024 12:50 PM NEUROLOGICAL PHYSIOTHERAPIST) 01/07/2024 3:19 PM NEUROLOGICAL PHYSIOTHERAPIST HK[facility] Disclaimer This test has been modified from the tower air traffic control specialist's instructions. Its performance characteristics were determined by [facility] in a manner consistent with CLIA requirements. This test has not been cleared or approved by the U.S. Food and Drug Administration. 01/07/2024 3:19 PM NEUROLOGICAL PHYSIOTHERAPIST HK[facility] Report electronically signed by LOLY Schwartz. Ch.B. I verify that I have examined all relevant slides/materials for the specimen(s) and rendered or confirmed the diagnosis. 01/07/2024 3:19 PM NEUROLOGICAL PHYSIOTHERAPIST HK[facility] Gross Description 50 ml of cloudy hubbard fluid received. Specimen fixed at 2:20 pm on 01-05-2024. 2 slides and cell block prepared. 01/07/2024 3:19 PM NEUROLOGICAL PHYSIOTHERAPIST HKCY Source A. Pleural, fluid 024 3:19 PM NEUROLOGICAL PHYSIOTHERAPIST HKCY Interpretation A. Pleural, fluid (smears/cell block): Negative for malignancy. Acute inflammation. COMMENT Immunohistochemica l stains with appropriate reactive controls was performed on separate slides on cell block. CK7, WT1, calretinin, TTF1, Napsin A, p40, CK20, NKX3.1 and CDX2: Negative Controls reviewed, results acceptable. 01/07/2024 3:19 PM NEUROLOGICAL PHYSIOTHERAPIST HKCY Fluid 01/05/2024 12:5 0 PM NEUROLOGICAL PHYSIOTHERAPIST 01/06/2024 7:16 AM NEUROLOGICAL PHYSIOTHERAPIST us Fidencio Oliva M.D. LAB SURG PATH ORDERABLES Sury vargas Result [facility] [address] [place] [address], [facility] HKCY [address] [address] * Bacterial Culture, Anaerobic + Susceptibility (01/05/2024 12:50 PM NEUROLOGICAL PHYSIOTHERAPIST) Bacterial Culture, Anaerobic No growth after 7 days of incubation. 01/12/2024 7:59 AM NEUROLOGICAL PHYSIOTHERAPIST MKTO Fluid (Pleural Fluid) 01/05/2024 12:50 PM NEUROLOGICAL PHYSIOTHERAPIST 01/05/2024 1:47 PM NEUROLOGICAL PHYSIOTHERAPIST Comment:Specimen Source Site : Fluid Fidencio Oliva M.D. LAB MICROBIOLOGY - GENERAL OR DERABLES Final Result Performing Organization Address [facility] Co de Phone Number [facility] [address] [place] [address], [address] [address] * (ABNORMAL) Gram Stain (01/05/2024 12:50 PM NEUROLOGICAL PHYSIOTHERAPIST) Gram Stain White blood cells, Many.(A) 01/05/2024 2:46 PM NEUROLOGICAL PHYSIOTHERAPIST MKTO Gram Stain GRAM POSITIVE COCCI Many. (A) 01/05/2024 2:46 PM NEUROLOGICAL PHYSIOTHERAPIST [facility] Fluid (Pleural Fluid) 01/05/2024 12:50 PM NEUROLOGICAL PHYSIOTHERAPIST 01/05/2024 1:47 PM NEUROLOGICAL PHYSIOTHERAPIST Comment:Specimen Source Site : Fluid Fidencio Oliva M.D. LAB MICROBIOLOGY - GENERAL OR DERABLES Final Result Performing Organization Address [facility] Co de Phone Number [facility] [address] [place] [address], [address] [address] * (ABNORMAL) Bacterial Culture, Aerobic + Susceptibility (01/05/2024 12:50 PM NEUROLOGICAL PHYSIOTHERAPIST) Bacterial Culture, Aerobic + Susc STREPTOCOCCUS ANGINOSUS GROUP [place] (A) 01/09/2024 7:56 AM NEUROLOGICAL PHYSIOTHERAPIST TO Fluid (Pleural Fluid) 01/05/2024 12:50 PM NEUROLOGICAL PHYSIOTHERAPIST 01/05/2024 1:47 PM NEUROLOGICAL PHYSIOTHERAPIST Comment:Specimen Source Site : Fluid Narrative Organism [...] MICROBIOLOGY - GENERAL OR DERABLES Final Result [facility] [address] [place] [address] MKTO [facility] [address] * (ABNORMAL) Morphology Evaluation (01/05/2024 5:52 AM NEUROLOGICAL PHYSIOTHERAPIST) RBC Morphology See Specific Findings 01/05/2024 7:09 AM NEUROLOGICAL PHYSIOTHERAPIST MKTO PLT Morphology Normal 01/05/2024 7:09 AM NEUROLOGICAL PHYSIOTHERAPIST MKTO PLT Estimate Increased(A ) Adequate 01/05/2024 7:09 AM NEUROLOGICAL PHYSIOTHERAPIST MKTO Anisocytosis Slight(A) 01/05/2024 7:09 AM NEUROLOGICAL PHYSIOTHERAPIST MKTO Basophilic Stippling Slight(A) 01/05/2024 7:09 AM NEUROLOGICAL PHYSIOTHERAPIST MKTO Poikilocytosis Slight(A) Not Seen 01/05/2024 7:09 AM NEUROLOGICAL PHYSIOTHERAPIST MKTO Blood 01/05/2024 5:52 AM NEUROLOGICAL PHYSIOTHERAPIST 01/05/2024 6:08 AM NEUROLOGICAL PHYSIOTHERAPIST us Octavio Cavazos, Ch.B. LAB BLOOD ADD-ON F inal Result Performing Organization Address City/[facility] Co de Phone Number [facility] [address] [place] [address], [place] [address] * (ABNORMAL) Manual Differential, Blood (01/05/2024 5:52 AM NEUROLOGICAL PHYSIOTHERAPIST) Segmented Neutrophils 89(H) 50 - 75 % 01/05/2024 7:09 AM NEUROLOGICAL PHYSIOTHERAPIST MKTO Lymphocytes % 5(L) 18 - 42 % 01/05/2024 7:09 AM NEUROLOGICAL PHYSIOTHERAPIST MKTO Monocytes 3 2 - 11 % 01/05/2024 7:09 AM NEUROLOGICAL PHYSIOTHERAPIST MKTO Metamyelocytes 2(H) <1 % 01/05/2024 7:09 AM NEUROLOGICAL PHYSIOTHERAPIST MKTO Myelocytes 1(H) <0.5 % 01/05/2024 7:09 AM NEUROLOGICAL PHYSIOTHERAPIST MKTO Manual Absolute Neutrophil Count 17.89(H) 1.56 - 6.45 x10(9)/L 01/05/2024 7:09 AM NEUROLOGICAL PHYSIOTHERAPIST MKTO Comment: ----ADDITIONAL INFORMATION---- The manual absolute neutrophil count is derived from a manual differential count and therefore is not exactly comparable to the automated absolute neutrophil count. Blood 01/05/2024 5:52 AM NEUROLOGICAL PHYSIOTHERAPIST 01/05/2024 6:08 AM NEUROLOGICAL PHYSIOTHERAPIST us Octavio Cavazos, Ch.B. LAB BLOOD ADD-ON F inal Result [facility] [address] [place] [address], [address] [address] * (ABNORMAL) Basic Metabolic Panel (01/05/2024 5:52 AM NEUROLOGICAL PHYSIOTHERAPIST) Potassium, P 3.7 3.6 - 5.2 mmol/L 01/05/2024 6:32 AM NEUROLOGICAL PHYSIOTHERAPIST MKTO Sodium, P 141 135 - 145 mmol/L 01/05/2024 6:32 AM NEUROLOGICAL PHYSIOTHERAPIST MKTO Chloride, P 102 98 - 107 mmol/L 01/05/2024 6:32 AM NEUROLOGICAL PHYSIOTHERAPIST MKTO Bicarbonate, P 25 22 - 29 mmol/L 01/05/2024 6:32 AM NEUROLOGICAL PHYSIOTHERAPIST MKTO Anion Gap, P 14 7 - 15 01/05/2024 6:32 AM NEUROLOGICAL PHYSIOTHERAPIST MKTO BUN (Blood Urea Nitrogen), P 29(H) 8 - 24 mg/dL 01/05/2024 6:32 AM NEUROLOGICAL PHYSIOTHERAPIST MKTO Creatinine 1.66(H) 0.74 - 1.35 mg/dL 01/05/2024 6:32 AM NEUROLOGICAL PHYSIOTHERAPIST MKTO Estimated GFR (eGFR) 40(L) >=60 mL/min/BSA 01/05/2024 6:32 AM NEUROLOGICAL PHYSIOTHERAPIST MKTO Comment: Estimated GFR calculated using the 2020 CKD_EPI creatinine equation. Calcium, Total, P 8.8 8.8 - 10.2 mg/dL 01/05/2024 6:32 AM NEUROLOGICAL PHYSIOTHERAPIST MKTO Glucose, P 100 70 - 140 mg/dL 01/05/2024 6:32 AM NEUROLOGICAL PHYSIOTHERAPIST MKTO Blood (Blood, Venous) 01/05/2024 5:52 AM NEUROLOGICAL PHYSIOTHERAPIST 01/05/2024 6:08 AM NEUROLOGICAL PHYSIOTHERAPIST us Octavio Cavazos, Ch.B. LAB BLOOD ADD-ON F inal Result [facility] [address] [place] [address], [facility] MKTO [facility] [address] * (ABNORMAL) CBC with Differential, Blood (01/05/2024 5:52 AM NEUROLOGICAL PHYSIOTHERAPIST) Hemoglobin 9.8(L) 13.2 - 16.6 g/dL 01/05/2024 7:09 AM NEUROLOGICAL PHYSIOTHERAPIST MKTO Hematocrit 30.8(L) 38.3 - 48.6 % 01/05/2024 7:09 AM NEUROLOGICAL PHYSIOTHERAPIST MKTO Erythrocytes 3.30(L) 4.35 - 5.65 x10(12)/ L 01/05/2024 7:09 AM NEUROLOGICAL PHYSIOTHERAPIST MKTO MCV 93.3 78.2 - 97.9 fL 01/05/2024 7:09 AM NEUROLOGICAL PHYSIOTHERAPIST MKTO RBC Distrib Width 15.2(H) 11.8 - 14.5 % 01/05/2024 7:09 AM NEUROLOGICAL PHYSIOTHERAPIST MKTO Platelet Count 362(H) 135 - 317 x10(9)/L 01/05/2024 7:09 AM NEUROLOGICAL PHYSIOTHERAPIST MKTO Leukocytes 20.1(H) 3.4 - 9.6 x10(9)/L 01/05/2024 7:09 AM NEUROLOGICAL PHYSIOTHERAPIST MKTO Neutrophils See manual differential 1.56 - 6.45 x10(9)/L 01/05/2024 7:09 AM NEUROLOGICAL PHYSIOTHERAPIST MKTO Blood (Blood, Venous) 01/05/2024 5:52 AM NEUROLOGICAL PHYSIOTHERAPIST 01/05/2024 6:08 AM NEUROLOGICAL PHYSIOTHERAPIST us Octavio Cavazos, Ch.B. LAB BLOOD ADD-ON F inal Result [facility] [place] [address], [facility] MKTO [facility] [address] * Pneumonia Panel, PCR (01/04/2024 7:45 PM NEUROLOGICAL PHYSIOTHERAPIST) Specimen Source SPUTUM 10:43 PM NEUROLOGICAL PHYSIOTHERAPIST MKTO Acinetobacter calcoaceticus-balbir annii complex Undetected Undetected copies/mL 01/04/2024 10:43 PM NEUROLOGICAL PHYSIOTHERAPIST MKTO Enterobacter cloacae complex Undetected Undetected copies/mL 01/04/2024 10:43 PM NEUROLOGICAL PHYSIOTHERAPIST MKTO Escherichia coli Undetected Undetected copies/mL 01/04/2024 10:43 PM NEUROLOGICAL PHYSIOTHERAPIST MKTO Haemophilus influenzae Undetected Undetected copies/mL 01/04/2024 10:43 PM NEUROLOGICAL PHYSIOTHERAPIST MKTO Klebsiella aerogenes Undetected Undetected copies/mL 01/04/2024 10:43 PM NEUROLOGICAL PHYSIOTHERAPIST MKTO Klebsiella oxytoca Undetected Undetected copies/mL 01/04/2024 10:43 PM NEUROLOGICAL PHYSIOTHERAPIST MKTO Klebsiella pneumoniae complex Undetected Undetected copies/mL 01/04/2024 10:43 PM NEUROLOGICAL PHYSIOTHERAPIST MKTO Moraxella catarrhalis Undetected Undetected copies/mL 01/04/2024 10:43 PM NEUROLOGICAL PHYSIOTHERAPIST MKTO Proteus species Undetected Undetected copies/mL 01/04/2024 10:43 PM NEUROLOGICAL PHYSIOTHERAPIST MKTO Pseudomonas aeruginosa Undetected Undetected copies/mL 01/04/2024 10:43 PM NEUROLOGICAL PHYSIOTHERAPIST MKTO Serratia marcescens Undetected Undetected copies/mL 01/04/2024 10:43 PM NEUROLOGICAL PHYSIOTHERAPIST MKTO Staphylococcus aureus complex Undetected Undetected copies/mL 01/04/2024 10:43 PM NEUROLOGICAL PHYSIOTHERAPIST MKTO Streptococcus agalactiae Undetected Undetected copies/mL 01/04/2024 10:43 PM NEUROLOGICAL PHYSIOTHERAPIST MKTO Streptococcus pneumoniae Undetected Undetected copies/mL 01/04/2024 10:43 PM NEUROLOGICAL PHYSIOTHERAPIST MKTO Streptococcus pyogenes Undetected Undetected copies/mL 01/04/2024 10:43 PM NEUROLOGICAL PHYSIOTHERAPIST MKTO Chlamydia pneumoniae Undetected Undetected 01/04/2024 10:43 PM NEUROLOGICAL PHYSIOTHERAPIST MKTO Legionella pneumophila Undetected Undetected 01/04/2024 10:43 PM NEUROLOGICAL PHYSIOTHERAPIST MKTO Mycoplasma pneumoniae Undetected Undetected 01/04/2024 10:43 PM NEUROLOGICAL PHYSIOTHERAPIST MKTO Adenovirus Undetected Undetected 01/04/2024 10:43 PM NEUROLOGICAL PHYSIOTHERAPIST MKTO Coronavirus Undetected Undetected 01/04/2024 10:43 PM NEUROLOGICAL PHYSIOTHERAPIST MKTO Human Metapneumovirus Undetected Undetected 01/04/2024 10:43 PM NEUROLOGICAL PHYSIOTHERAPIST MKTO Human Rhinovirus/Enterov irus Undetected Undetected 01/04/2024 10:43 PM NEUROLOGICAL PHYSIOTHERAPIST MKTO Influenza A Undetected Undetected 01/04/2024 10:43 PM NEUROLOGICAL PHYSIOTHERAPIST MKTO Influenza B Undetected Undetected 01/04/2024 10:43 PM NEUROLOGICAL PHYSIOTHERAPIST MKTO Parainfluenza Undetected Undetected 01/04/2024 10:43 PM NEUROLOGICAL PHYSIOTHERAPIST MKTO Respiratory Syncytial Virus Undetected Undetected 01/04/2024 10:43 PM NEUROLOGICAL PHYSIOTHERAPIST MKTO Comment: ----ADDITIONAL INFORMATION---- This assay is performed using the FDA-cleared FilmArray Pneumonia Panel (PN) ([employer] Any initial empiric treatment guidance provided in [...] SARS-CoV-2. Sputum (Sputum) 01/04/2024 7 :45 PM NEUROLOGICAL PHYSIOTHERAPIST 01/04/2024 7:55 PM NEUROLOGICAL PHYSIOTHERAPIST us Octavio Cavazos, Ch.B. LAB MICROBIOLOGY - GENERAL ORDERABLES Final Result [facility] [address] [place] [address], [address] [place] [address] * (ABNORMAL) Gram Stain (01/04/2024 7:45 PM NEUROLOGICAL PHYSIOTHERAPIST) Gram Stain White blood cells, Many.(A) 01/04/2024 8:40 PM NEUROLOGICAL PHYSIOTHERAPIST MKTO Gram Stain GRAM POSITIVE COCCI Many. (A) 01/04/2024 8:40 PM NEUROLOGICAL PHYSIOTHERAPIST MKTO Sputum 01/04/2024 7:45 PM NEUROLOGICAL PHYSIOTHERAPIST 01/04/2024 7:55 PM NEUROLOGICAL PHYSIOTHERAPIST Comment:Specimen Source Site : Sputum us Octavio Cavazos, Ch.B. LAB MICROBIOLOGY - GENERAL ORDERABLES Final Result Performing Organization Address City/[facility] Co de Phone Number [facility] [address] [place] [address], [facility] [address] [place] [address] * Bacterial Culture, Aerobic + Susceptibility, Respiratory (01/04/2024 7:45 PM NEUROLOGICAL PHYSIOTHERAPIST) Bacterial Culture, Aerobic, Resp No growth after 2 days of incubation. 01/06/2024 8:19 AM NEUROLOGICAL PHYSIOTHERAPIST MKTO Sputum (Sputum) 01/04/2024 7 :45 PM NEUROLOGICAL PHYSIOTHERAPIST 01/04/2024 7:55 PM NEUROLOGICAL PHYSIOTHERAPIST Comment:Specimen Source Site : Sputum us Octavio Cavazos, Ch.B. LAB MICROBIOLOGY - GENERAL ORDERABLES Final Result Performing Organization Address City/[facility]/ZIP Co de Phone Number [facility] [address] [place] [address], [facility] [address] [place] [address] * MRSA PCR, Nasal (01/04/2024 7:45 PM NEUROLOGICAL PHYSIOTHERAPIST) MRSA Screen, Nasal by PCR Negative Negative 01/04/2024 9:24 PM NEUROLOGICAL PHYSIOTHERAPIST [facility] Swab (Nares) 01/04/2024 7:45 PM NEUROLOGICAL PHYSIOTHERAPIST 01/04/2024 7:53 PM NEUROLOGICAL PHYSIOTHERAPIST Frank Mccall M.D. LAB MICROBIOLOGY - GENERAL ORDERABLES Final Result [facility] [address] [place] [address], [facility] in [address] [address] * (TTE) 2D ECHO DOPPLER COLOR AND CONTRAST (01/04/2024 10:38 AM NEUROLOGICAL PHYSIOTHERAPIST) Pathologist [facility] Ejection Fraction 59 MC CV EIMS [...] Region Laterality Modality Echocardiography 01/04/2024 9:49 AM NEUROLOGICAL PHYSIOTHERAPIST Impressions 01/04/2024 11:49 AM NEUROLOGICAL PHYSIOTHERAPIST Echo performed at the patient's bedside. LEFT [...] per Echocardiography Contrast Administration Protocol Reference Document [id number] Rev 05/30/2021. Patient met an inclusion criterion and did not have contraindications in screening sections. For the complete report, see the Order-Level Documents. Narrative 01/04/2024 11:49 AM NEUROLOGICAL PHYSIOTHERAPIST For the complete report, see the Order-Level [...] administered per EchocardiographyContrast Administration Protocol Reference Document [id number] Rev05/30/2021. Patient met an inclusion criterion and did not havecontraindications in screening sections. For the complete report, see the Order-Level Documents. us Jet Palomares M.D. CV ECHO PROCEDURES Sury l Result * (ABNORMAL) Microscopic Automated (01/04/2024 5:56 AM NEUROLOGICAL PHYSIOTHERAPIST) White Blood Cells 4-10(A) /hpf 01/04/2024 6:58 AM NEUROLOGICAL PHYSIOTHERAPIST MKTO Comment: ----REFERENCE VALUE---- Males: 0-3 Females: 0-10 Unknown: 0-10 Red Blood Cells None Seen 0 - 2 /hpf 01/04/2024 6:58 AM NEUROLOGICAL PHYSIOTHERAPIST MKTO Hyaline Casts 4-10 /lpf 01/04/2024 6:58 AM NEUROLOGICAL PHYSIOTHERAPIST MKTO Squamous Cells Occ-3 /hpf 01/04/2024 6:58 AM NEUROLOGICAL PHYSIOTHERAPIST MKTO Urine 01/04/2024 5:56 AM NEUROLOGICAL PHYSIOTHERAPIST 01/04/2024 6:02 AM NEUROLOGICAL PHYSIOTHERAPIST us Jet Palomares M.D. LAB URINE ORDERABLES Fi nal Result [facility] [address] [place] [address], [facility] MKTO [facility] [address] * (ABNORMAL) Protein/Creatinine Ratio, Random, Urine (01/04/2024 5:56 AM NEUROLOGICAL PHYSIOTHERAPIST) Protein, Total, Random, U 33 mg/dL 01/04/2024 6:54 AM NEUROLOGICAL PHYSIOTHERAPIST MKTO Creatinine, Random, U 94 16 - 326 mg/dL 01/04/2024 6:54 AM NEUROLOGICAL PHYSIOTHERAPIST MKTO Protein/Creati nine Ratio 0.35(H) <0.18 mg/mg 01/04/2024 6:54 AM NEUROLOGICAL PHYSIOTHERAPIST MKTO Urine (Urine, Midstream) 01/04/2024 5:56 AM NEUROLOGICAL PHYSIOTHERAPIST 01/04/2024 6:02 AM NEUROLOGICAL PHYSIOTHERAPIST Jet Palomares M.D. LAB URINE ORDERABLES Fi nal Result [facility] [address] [place] [address], [facility] MKTO [facility] [place] [address] [place] [address] * (ABNORMAL) Urinalysis with Microscopic if Indicated (01/04/2024 5:56 AM NEUROLOGICAL PHYSIOTHERAPIST) Source Urine, Urine, Midstream 01/04/2024 6:03 AM NEUROLOGICAL PHYSIOTHERAPIST MKTO Clarity Cloudy(A) Clear 01/04/2024 6:37 AM NEUROLOGICAL PHYSIOTHERAPIST MKTO Color Yellow 01/04/2024 6:37 AM NEUROLOGICAL PHYSIOTHERAPIST MKTO Comment: ----REFERENCE VALUE---- Colorless Yellow Veronica Blood Negative Negative 01/04/2024 6:37 AM NEUROLOGICAL PHYSIOTHERAPIST MKTO Nitrite Negative Negative 01/04/2024 6:37 AM NEUROLOGICAL PHYSIOTHERAPIST MKTO Leukocyte Esterase Negative Negative 01/04/2024 6:37 AM NEUROLOGICAL PHYSIOTHERAPIST MKTO Protein 30(A) mg/dL 01/04/2024 6:37 AM NEUROLOGICAL PHYSIOTHERAPIST MKTO Comment: ----REFERENCE VALUE---- Negative Trace Glucose Negative Negative mg/dL 01/04/2024 6:37 AM NEUROLOGICAL PHYSIOTHERAPIST MKTO Ketone Trace(A) Negative mg/dL 01/04/2024 6:37 AM NEUROLOGICAL PHYSIOTHERAPIST MKTO Bilirubin Negative Negative 01/04/2024 6:37 AM NEUROLOGICAL PHYSIOTHERAPIST MKTO pH 5.0 5.0 - 8.0 01/04/2024 6:37 AM NEUROLOGICAL PHYSIOTHERAPIST MKTO Specific [place] 1.014 1.001 - 1.035 01/04/2024 6:37 AM NEUROLOGICAL PHYSIOTHERAPIST MKTO Urobilinogen 0.2 0.2 - 1.0 mg/dL 01/04/2024 6:37 AM NEUROLOGICAL PHYSIOTHERAPIST MKTO Urine (Urine, Midstream) 01/04/2024 5:56 AM NEUROLOGICAL PHYSIOTHERAPIST 01/04/2024 6:02 AM NEUROLOGICAL PHYSIOTHERAPIST us Jet Palomares M.D. LAB URINE ORDERABLES Fi nal Result Performing Organization Address City/[facility]/ZIP Co de Phone Number [facility] [address] [place] [address], [place] [address] * Sodium, Random, Urine (01/04/2024 5:56 AM NEUROLOGICAL PHYSIOTHERAPIST) Sodium, Random, U 28 mmol/L 01/04/2024 6:54 AM NEUROLOGICAL PHYSIOTHERAPIST TO Comment: ----REFERENCE VALUE---- Random urine sodium may be interpreted in conjunction with serum sodium, using both values to calculate fractional excretion of sodium. Urine (Urine, Midstream) 01/04/2024 5:56 AM NEUROLOGICAL PHYSIOTHERAPIST 01/04/2024 6:01 AM NEUROLOGICAL PHYSIOTHERAPIST us Fausto Bey M.D. LAB URINE ORDERABLES Final Resu lt Performing Organization Address City/[facility] Co de Phone Number [facility] [address] [place] [address], [place] [address] * (ABNORMAL) NT-Pro B-Type Natriuretic Peptide (BNP) (01/04/2024 4:56 AM NEUROLOGICAL PHYSIOTHERAPIST) NT-Pro BNP 5163(H) <=540 pg/mL 01/04/2024 8:20 AM NEUROLOGICAL PHYSIOTHERAPIST TO Comment: NT-proBNP values less than 300 [...] failure. Blood (Blood, Venous) 01/04/2024 4:56 AM NEUROLOGICAL PHYSIOTHERAPIST 01/04/2024 8:01 AM NEUROLOGICAL PHYSIOTHERAPIST us Portia Ramos M.D., Ph.D. LAB BLOOD ADD-ON Final Res ult Performing Organization Address City/[facility]/ZIP Co de Phone Number [facility] [address] [place] [address] * Parathyroid Hormone (PTH) (01/04/2024 4:56 AM NEUROLOGICAL PHYSIOTHERAPIST) Parathyroid Hormone (PTH), S 43 15 - 65 pg/mL 01/04/2024 8:32 AM NEUROLOGICAL PHYSIOTHERAPIST TO Comment: Biotin has been identified by the tower air traffic control specialist as a potential interfering substance. Higher concentrations of biotin may be found in multivitamins, hair/nail supplements, and workout supplements. If the result does not match clinical observations, repeat testing after patient refrains from the use of supplements for at least 12 hours. Blood (Blood, Venous) 01/04/2024 4:56 AM NEUROLOGICAL PHYSIOTHERAPIST 01/04/2024 8:02 AM NEUROLOGICAL PHYSIOTHERAPIST us Portia Ramos M.D., Ph.D. LAB BLOOD ADD-ON Final Res ult Performing Organization Address [facility]/ZIP Co de Phone Number [facility] [address] [place] [address], [place] [address] * (ABNORMAL) Iron and Total Iron-Binding Capacity (01/04/2024 4:56 AM NEUROLOGICAL PHYSIOTHERAPIST) Iron 38(L) 50 - 150 mcg/dL 01/04/2024 8:32 AM NEUROLOGICAL PHYSIOTHERAPIST [facility] Total Iron Binding Capacity 79(L) 250 - 400 mcg/dL 01/04/2024 8:32 AM NEUROLOGICAL PHYSIOTHERAPIST TO Percent Saturation 48 14 - 50 % 01/04/2024 8:32 AM NEUROLOGICAL PHYSIOTHERAPIST [facility] Blood (Blood, Venous) 01/04/2024 4:56 AM NEUROLOGICAL PHYSIOTHERAPIST 01/04/2024 8:02 AM NEUROLOGICAL PHYSIOTHERAPIST us Portia Ramos M.D., Ph.D. LAB BLOOD ADD-ON Final Res ult Performing Organization Address [facility] Co de Phone Number [facility] [address] [place] [address], [place] [id number] * (ABNORMAL) Ferritin (01/04/2024 4:56 AM NEUROLOGICAL PHYSIOTHERAPIST) Ferritin, S 1703(H) 31 - 409 mcg/L 01/04/2024 8:32 AM NEUROLOGICAL PHYSIOTHERAPIST [facility] Comment: Biotin has been identified by the tower air traffic control specialist as a potential interfering substance. Higher concentrations of biotin may be found in multivitamins, hair/nail supplements, and workout supplements. If the result does not match clinical observations, repeat testing after patient refrains from the use of supplements for at least 12 hours. Blood (Blood, Venous) 01/04/2024 4:56 AM NEUROLOGICAL PHYSIOTHERAPIST 01/04/2024 8:02 AM NEUROLOGICAL PHYSIOTHERAPIST Portia Ramos M.D., Ph.D. LAB BLOOD ADD-ON Final Res ult Performing Organization Address [facility] Co de Phone Number [facility] [address] [place] [address], [place] [address] * (ABNORMAL) Basic Metabolic Panel (01/04/2024 4:56 AM NEUROLOGICAL PHYSIOTHERAPIST) Potassium, P 3.6 3.6 - 5.2 mmol/L 01/04/2024 5:39 AM NEUROLOGICAL PHYSIOTHERAPIST MKTO Sodium, P 141 135 - 145 mmol/L 01/04/2024 5:39 AM NEUROLOGICAL PHYSIOTHERAPIST [facility] Chloride, P 104 98 - 107 mmol/L 01/04/2024 5:39 AM NEUROLOGICAL PHYSIOTHERAPIST [facility] Bicarbonate, P 19(L) 22 - 29 mmol/L 01/04/2024 5:39 AM NEUROLOGICAL PHYSIOTHERAPIST MKTO Anion Gap, P 18(H) 7 - 15 01/04/2024 5:39 AM NEUROLOGICAL PHYSIOTHERAPIST [facility] BUN (Blood Urea Nitrogen), P 63(H) 8 - 24 mg/dL 01/04/2024 5:39 AM NEUROLOGICAL PHYSIOTHERAPIST [facility] Creatinine 2.45(H) 0.74 - 1.35 mg/dL 01/04/2024 5:39 AM NEUROLOGICAL PHYSIOTHERAPIST MKTO Estimated GFR (eGFR) 25(L) >=60 mL/min/BSA 01/04/2024 5:39 AM NEUROLOGICAL PHYSIOTHERAPIST MKTO Comment: Estimated GFR calculated using the 2020 CKD_EPI creatinine equation. Calcium, Total, P 8.1(L) 8.8 - 10.2 mg/dL 01/04/2024 5:39 AM NEUROLOGICAL PHYSIOTHERAPIST MK[facility] Glucose, P 90 70 - 140 mg/dL 01/04/2024 5:39 AM NEUROLOGICAL PHYSIOTHERAPIST MKTO Blood (Blood, Venous) 01/04/2024 4:56 AM NEUROLOGICAL PHYSIOTHERAPIST 01/04/2024 5:15 AM NEUROLOGICAL PHYSIOTHERAPIST us Octavio Cavazos, Ch.B. LAB BLOOD ADD-ON F inal Result [facility] [address] [place] [address], [facility] MKTO [facility] [place] [address] [place] [address] * (ABNORMAL) CBC with Differential, Blood (01/04/2024 4:56 AM NEUROLOGICAL PHYSIOTHERAPIST) Hemoglobin 8.7(L) 13.2 - 16.6 g/dL 01/04/2024 5:20 AM NEUROLOGICAL PHYSIOTHERAPIST MKTO Hematocrit 26.1(L) 38.3 - 48.6 % 01/04/2024 5:20 AM NEUROLOGICAL PHYSIOTHERAPIST [facility] Erythrocytes 2.89(L) 4.35 - 5.65 x10(12)/L 01/04/2024 5:20 AM NEUROLOGICAL PHYSIOTHERAPIST [facility] MCV 90.3 78.2 - 97.9 fL 01/04/2024 5:20 AM NEUROLOGICAL PHYSIOTHERAPIST MK[facility] RBC Distrib Width 15.3(H) 11.8 - 14.5 % 01/04/2024 5:20 AM NEUROLOGICAL PHYSIOTHERAPIST MKTO Platelet Count 429(H) 135 - 317 x10(9)/L 01/04/2024 5:20 AM NEUROLOGICAL PHYSIOTHERAPIST [facility] Leukocytes 20.6(H) 3.4 - 9.6 x10(9)/L 01/04/2024 5:20 AM NEUROLOGICAL PHYSIOTHERAPIST MK[facility] Neutrophils 18.32(H) 1.56 - 6.45 x10(9)/L 01/04/2024 5:20 AM NEUROLOGICAL PHYSIOTHERAPIST MK[facility] Lymphocytes 1.03 0.95 - 3.07 x10(9)/L 01/04/2024 5:20 AM NEUROLOGICAL PHYSIOTHERAPIST MKTO Monocytes 1.16(H) 0.26 - 0.81 x10(9)/L 01/04/2024 5:20 AM NEUROLOGICAL PHYSIOTHERAPIST MK[facility] Eosinophils 0.09 0.03 - 0.48 x10(9)/L 01/04/2024 5:20 AM NEUROLOGICAL PHYSIOTHERAPIST MK[facility] Basophils 0.04 0.01 - 0.08 x10(9)/L 01/04/2024 5:20 AM NEUROLOGICAL PHYSIOTHERAPIST MKTO Blood (Blood, Venous) 01/04/2024 4:56 AM NEUROLOGICAL PHYSIOTHERAPIST 01/04/2024 5:15 AM NEUROLOGICAL PHYSIOTHERAPIST Octavio Cavazos, Ch.B. LAB BLOOD ADD-ON F inal Result [facility] [address] [place] [address], [facility] MKTO [facility] [address] * Cytology Non-HEARING STENOGRAPHER (01/03/2024 5:09 PM NEUROLOGICAL PHYSIOTHERAPIST) 01/05/2024 8:19 AM NEUROLOGICAL PHYSIOTHERAPIST [facility] Report electronically signed by Rito Rizvi MD I verify that I have examined all relevant slides/materia ls for the specimen(s) and rendered or confirmed the diagnosis. 01/05/2024 8:19 AM NEUROLOGICAL PHYSIOTHERAPIST [facility] Gross Description 60 ml of creamy fluid received. Specimen fixed at 6:30 am on 01-04-2024. 2 slides and cell block prepared. 01/05/2024 8:19 AM NEUROLOGICAL PHYSIOTHERAPIST [facility] Collection Procedure [id number] 01/05/2024 8:19 AM NEUROLOGICAL PHYSIOTHERAPIST [facility] Source A. Pleural, Right, fluid 01/05/2024 8:19 AM NEUROLOGICAL PHYSIOTHERAPIST [facility] Interpretation A. Pleural, Right, fluid (smears/cell block): Negative for malignancy. Acute inflammation. Clusters of coccal bacteria. 01/05/2024 8:19 AM NEUROLOGICAL PHYSIOTHERAPIST [facility] Fluid (Pleural Fluid, Right) 01/03/2024 5:09 PM NEUROLOGICAL PHYSIOTHERAPIST 01/04/2024 7:17 AM NEUROLOGICAL PHYSIOTHERAPIST us Octavio Cavazos, B. LAB SURG PATH ORDE MARIA TERESA Final Result Performing Organization Address City/[facility] Co de Phone Number [facility] [address] [place] [address], [place] [facility] [address] [address] * US Thoracentesis Right with Imaging Guidance (01/03/2024 5:04 PM NEUROLOGICAL PHYSIOTHERAPIST) Anatomical Region Laterality Modality Chest, Ultrasound RST LOS, U ltrasound ARZ LOS, Procedure FLA LOS, Abdominal FLA LOS, Procedural, Procedural NWWI LOS Right Ultrasound Impressions 01/04/2024 8:03 AM NEUROLOGICAL PHYSIOTHERAPIST Successful ultrasound guided diagnostic and therapeutic right thoracentesis. Narrative 01/04/2024 8:03 AM NEUROLOGICAL PHYSIOTHERAPIST EXAM: US THORACENTESIS RIGHT WITH IMAGING GUIDANCE [...] medications. Patient education provided by the care sales team leader. Ready to learn, no apparent learning barriers were identified. Post-procedure care explained; patient expressed understanding of the content. Procedure Note Charbel Capone M.D. - 01/04/2024 EXAM: US THORACENTESIS RIGHT WITH IMAGING GUIDANCE PROCEDURE: Sterile; 1% lidocaine for local anesthesia. Location: Right pleural space Needle size: 5 Fr [facility] Fluid Amount/Color: 150 mL of white/hubbard opaque [...] medications. Patient education provided by the care sales team leader. Ready to learn, no apparent learningbarriers were identified. Post-procedure care explained; patient expressedunderstanding of the content. IMPRESSION: Successful ultrasound guided diagnostic and therapeutic rightthoracentesis. us Octavio Cavazos, B. [facility] [place]EDURES Final Result * (ABNORMAL) Basic Metabolic Panel (01/03/2024 1:56 PM NEUROLOGICAL PHYSIOTHERAPIST) Potassium, P 3.3(L) 3.6 - 5.2 mmol/L 01/03/2024 2:21 PM NEUROLOGICAL PHYSIOTHERAPIST MKTO Sodium, P 140 135 - 145 mmol/L 01/03/2024 2:21 PM NEUROLOGICAL PHYSIOTHERAPIST MKTO Chloride, P 102 98 - 107 mmol/L 01/03/2024 2:21 PM NEUROLOGICAL PHYSIOTHERAPIST [facility] Bicarbonate, P 21(L) 22 - 29 mmol/L 01/03/2024 2:21 PM NEUROLOGICAL PHYSIOTHERAPIST MK[facility] Anion Gap, P 17(H) 7 - 15 01/03/2024 2:21 PM NEUROLOGICAL PHYSIOTHERAPIST [facility] BUN (Blood Urea Nitrogen), P 55(H) 8 - 24 mg/dL 01/03/2024 2:21 PM NEUROLOGICAL PHYSIOTHERAPIST MKTO Creatinine 2.17(H) 0.74 - 1.35 mg/dL 01/03/2024 2:21 PM NEUROLOGICAL PHYSIOTHERAPIST MKTO Estimated GFR (eGFR) 29(L) >=60 mL/min/BSA 01/03/2024 2:21 PM NEUROLOGICAL PHYSIOTHERAPIST MKTO Comment: Estimated GFR calculated using the 2020 CKD_EPI creatinine equation. Calcium, Total, P 8.1(L) 8.8 - 10.2 mg/dL 01/03/2024 2:21 PM NEUROLOGICAL PHYSIOTHERAPIST MKTO Glucose, P 93 70 - 140 mg/dL 01/03/2024 2:21 PM NEUROLOGICAL PHYSIOTHERAPIST MKTO Blood (Blood, Venous) 01/03/2024 1:56 PM NEUROLOGICAL PHYSIOTHERAPIST 01/03/2024 2:02 PM NEUROLOGICAL PHYSIOTHERAPIST us Jet Palomares M.D. LAB BLOOD ADD-ON Final Result Performing Organization Address [facility] Co de Phone Number [facility] [address] [place] [address] * Bacteria / Cheri Culture, Blood #1 (01/03/2024 10:53 AM NEUROLOGICAL PHYSIOTHERAPIST) Bacteria/Nereida da Culture, Blood No growth after 5 day/s of incubation. 01/08/2024 11:05 AM NEUROLOGICAL PHYSIOTHERAPIST [facility] Blood (Blood, Peripheral Draw) 01/03/2024 10:53 AM NEUROLOGICAL PHYSIOTHERAPIST 01/03/2024 10:58 AM NEUROLOGICAL PHYSIOTHERAPIST Comment:Specimen Source Site : Blood us Octavio Cavazos, Ch.B. LAB MICROBIOLOGY - GENERAL ORDERABLES Final Result Performing Organization Address [facility] Co de Phone Number [facility] [address] [place] [address], [place] [address] * Lactate for Sepsis with Reflex (01/03/2024 10:52 AM NEUROLOGICAL PHYSIOTHERAPIST) Lactate, B 1.1 0.5 - 2.2 mmol/L 01/03/2024 11:01 AM NEUROLOGICAL PHYSIOTHERAPIST [facility] Blood (Blood, Venous) 01/03/2024 10:52 AM NEUROLOGICAL PHYSIOTHERAPIST 01/03/2024 10:58 AM NEUROLOGICAL PHYSIOTHERAPIST us Octavio Cavazos, Ch.B. LAB BLOOD NON ADD- ON Final Result Performing Organization Address City/[facility]/ZIP Co de Phone Number [facility] [address] [place] [address], [place] [phone] * Bacteria / Cheri Culture, Blood #2 (01/03/2024 10:52 AM NEUROLOGICAL PHYSIOTHERAPIST) Pathologist [facility] Bacteria/Nereida da Culture, Blood No growth after 5 day/s of incubation. 01/08/2024 11:05 AM NEUROLOGICAL PHYSIOTHERAPIST [facility] Blood (Blood, Peripheral Draw) 01/03/2024 10:52 AM NEUROLOGICAL PHYSIOTHERAPIST 01/03/2024 10:58 AM NEUROLOGICAL PHYSIOTHERAPIST Comment:Specimen Source Site : Blood Octavio Cavazos, Ch.B. LAB MICROBIOLOGY - GENERAL ORDERABLES Final Result Performing Organization Address [facility] Co de Phone Number [facility] [address] [place] [address], [place] [address] * (ABNORMAL) Albumin (01/03/2024 10:51 AM NEUROLOGICAL PHYSIOTHERAPIST) Pathologist [facility] Albumin, P 3.0(L) 3.5 - 5.0 g/dL 01/03/2024 1:15 PM NEUROLOGICAL PHYSIOTHERAPIST [facility] Blood (Blood, Venous) 01/03/2024 10:51 AM NEUROLOGICAL PHYSIOTHERAPIST 01/03/2024 1:02 PM NEUROLOGICAL PHYSIOTHERAPIST us Jet Palomares M.D. LAB BLOOD ADD-ON Final Result Performing Organization Address City/[facility]/ZIP Co de Phone Number [facility] [address] [place] [address] * Vitamin D, Immunoassay, Total, Serum (01/03/2024 6:42 AM NEUROLOGICAL PHYSIOTHERAPIST) Vitamin D, Immunoassay, Total, S 23 20 - 80 ng/mL 01/04/2024 8:37 AM NEUROLOGICAL PHYSIOTHERAPIST TO Comment: Optimum levels within the healthy population are 20-50, patients with bone disease may benefit from high levels within this range Blood (Blood, Venous) 01/03/2024 6:42 AM NEUROLOGICAL PHYSIOTHERAPIST 01/04/2024 8:02 AM NEUROLOGICAL PHYSIOTHERAPIST us Portia Ramos M.D., Ph.D. LAB BLOOD ADD-ON Final Res ult Performing Organization Address City/[facility]/ZIP Co de Phone Number [facility] [address] [place] [address] * (ABNORMAL) NT-Pro B-Type Natriuretic Peptide (BNP) (01/03/2024 6:42 AM NEUROLOGICAL PHYSIOTHERAPIST) Pathologist [facility] NT-Pro BNP 4710(H) <=540 pg/mL 01/03/2024 7:46 AM NEUROLOGICAL PHYSIOTHERAPIST [facility] Comment: NT-proBNP values less than 300 [...] failure. Blood (Blood, Venous) 01/03/2024 6:42 AM NEUROLOGICAL PHYSIOTHERAPIST 01/03/2024 6:55 AM NEUROLOGICAL PHYSIOTHERAPIST us Jet Palomares M.D. LAB BLOOD ADD-ON Final Result Performing Organization Address [facility]/ZIP Co de Phone Number [facility] [address] [place] [address] * (ABNORMAL) Calcium, Ionized (01/03/2024 6:42 AM NEUROLOGICAL PHYSIOTHERAPIST) Pathologist [facility] Calcium, Ionized, B 4.31(L) 4.65 - 5.30 mg/dL 01/03/2024 7:00 AM NEUROLOGICAL PHYSIOTHERAPIST TO Blood 01/03/2024 6:42 AM NEUROLOGICAL PHYSIOTHERAPIST 01/03/2024 6:55 AM NEUROLOGICAL PHYSIOTHERAPIST us Deanna Lewis APRN, C.N.P., D.N.P., M.S.N. LAB B LOOD NON ADD-ON Final Result [facility] [address] [place] [address] * pH (01/03/2024 6:42 AM NEUROLOGICAL PHYSIOTHERAPIST) [facility] pH 7.43 7.35 - 7.45 pH 01/03/2024 7:00 AM NEUROLOGICAL PHYSIOTHERAPIST [facility] Blood 01/03/2024 6:42 AM NEUROLOGICAL PHYSIOTHERAPIST 01/03/2024 6:55 AM NEUROLOGICAL PHYSIOTHERAPIST us Deanna Lewis APRN, C.N.P., D.N.P., M.S.N. LAB H ISTORICAL ORDERS Final Result [facility] [address] [place] [address], [place] [address] * (ABNORMAL) QuantiFERON-Tb Gold Plus, Blood (01/03/2024 6:42 AM NEUROLOGICAL PHYSIOTHERAPIST) [facility] QuantiFERON-TB Gold Plus Result Indetermi parviz(A) Negative 01/07/2024 2:48 PM NEUROLOGICAL PHYSIOTHERAPIST [facility] Comment: Indeterminate due to a low interferon-gamma level in the mitogen (positive control) tube. This may occur due to a low lymphocyte count, reduced lymphocyte activity or inability of the patient's lymphocytes to generate interferon-gamma. The reference range for the 'Mitogen minus Nil Result' is >=0.5 IU/mL. TB1 Ag minus Nil Result 0.00 IU/mL 01/07/2024 2:48 PM NEUROLOGICAL PHYSIOTHERAPIST [facility] TB2 Ag minus Nil Result 0.00 IU/mL 01/07/2024 2:48 PM NEUROLOGICAL PHYSIOTHERAPIST [facility] Mitogen minus Nil Result 0.01 IU/mL 01/07/2024 2:48 PM NEUROLOGICAL PHYSIOTHERAPIST [facility] Nil Result 0.04 IU/mL 01/07/2024 2:48 PM NEUROLOGICAL PHYSIOTHERAPIST [facility] Blood (Blood, Venous) 01/03/2024 6:42 AM NEUROLOGICAL PHYSIOTHERAPIST 01/04/2024 10:57 AM NEUROLOGICAL PHYSIOTHERAPIST Narrative [facility] - 01/07/2024 2:48 PM NEUROLOGICAL PHYSIOTHERAPIST Specimen Information: Specimen ID: [id number] Specimen Type: Blood Specimen Collection Start Date: 01/03/2024 6:42 AM Specimen Received Date: 01/04/2024 10:57 AM Specimen ID: [id number] Specimen Type: Blood Specimen Collection Start Date: 01/03/2024 6:42 AM Specimen Received Date: 01/04/2024 10:57 AM Specimen ID: [id number] Specimen Type: Blood Specimen Collection Start Date: 01/03/2024 6:42 AM Specimen Received Date: 01/04/2024 10:57 AM Specimen ID: [id number] Specimen Type: Blood Specimen Collection Start Date: 01/03/2024 6:42 AM Specimen Received Date: 01/04/2024 10:57 AM Jet Palomares M.D. LAB MICROBIOLOGY - BLOO D ORDERABLES Final Result [facility] [address] [place] [address], [facility] in [address] [address] * HBc Total Ab, Serum (01/03/2024 6:42 AM NEUROLOGICAL PHYSIOTHERAPIST) HBc Total Ab, S Negative Negative 01/04/2024 11:52 AM NEUROLOGICAL PHYSIOTHERAPIST [facility] Blood (Blood, Peripheral Draw) 01/03/2024 6:42 AM NEUROLOGICAL PHYSIOTHERAPIST 01/04/2024 7:28 AM NEUROLOGICAL PHYSIOTHERAPIST Jet Palomares M.D. LAB MICROBIOLOGY - BLOO D ORDERABLES Final Result [facility] [address] [place] [address] [facility] [address] [place] [address] * HBs Antibody, Serum (01/03/2024 6:42 AM NEUROLOGICAL PHYSIOTHERAPIST) Pathologist [facility] HBs Antibody, S Negative 7:57 AM NEUROLOGICAL PHYSIOTHERAPIST [facility] Comment: Patient is presumed NOT to be immune to infection with HBV. Consumption of high-dose biotin supplement within 12 hours of blood collection for this test can cause false-negative results. ----REFERENCE VALUE---- Unvaccinated: Negative Vaccinated: Positive HBs Antibody, Quantitative, S <3.50 mIU/mL 01/03/2024 7:57 AM NEUROLOGICAL PHYSIOTHERAPIST [facility]TO Comment: ----REFERENCE VALUE---- <8.50: Negative 8.50-11.49: Indeterminate >=11.50: Positive Blood (Blood, Peripheral Draw) 01/03/2024 6:42 AM NEUROLOGICAL PHYSIOTHERAPIST 01/03/2024 6:55 AM NEUROLOGICAL PHYSIOTHERAPIST Jet Palomares M.D. LAB MICROBIOLOGY - BLOO D ORDERABLES Final Result [facility] [address] [place] [address], [facility] MKTO [facility] [place] [address] [place] [address] * Hepatitis B Surface Antigen (01/03/2024 6:42 AM NEUROLOGICAL PHYSIOTHERAPIST) HBs Antigen, S Nonreactive Nonreactive 01/03/2024 8:07 AM NEUROLOGICAL PHYSIOTHERAPIST [facility] Blood (Blood, Peripheral Draw) 01/03/2024 6:42 AM NEUROLOGICAL PHYSIOTHERAPIST 01/03/2024 6:55 AM NEUROLOGICAL PHYSIOTHERAPIST us Jet Palomares M.D. LAB MICROBIOLOGY - BLOO D ORDERABLES Final Result [facility] [address] [place] [address], [facility] MKTO [facility] [place] [address] [place] [address] * (ABNORMAL) CBC with Differential, Blood (01/03/2024 6:42 AM NEUROLOGICAL PHYSIOTHERAPIST) Hemoglobin 8.7(L) 13.2 - 16.6 g/dL 01/03/2024 7:01 AM NEUROLOGICAL PHYSIOTHERAPIST [facility] Hematocrit 25.9(L) 38.3 - 48.6 % 01/03/2024 7:01 AM NEUROLOGICAL PHYSIOTHERAPIST [facility] Erythrocytes 2.91(L) 4.35 - 5.65 x10(12)/L 01/03/2024 7:01 AM NEUROLOGICAL PHYSIOTHERAPIST [facility] MCV 89.0 78.2 - 97.9 fL 01/03/2024 7:01 AM NEUROLOGICAL PHYSIOTHERAPIST [facility] RBC Distrib Width 15.2(H) 11.8 - 14.5 % 01/03/2024 7:01 AM NEUROLOGICAL PHYSIOTHERAPIST [facility] Platelet Count 419(H) 135 - 317 x10(9)/L 01/03/2024 7:01 AM NEUROLOGICAL PHYSIOTHERAPIST [facility] Leukocytes 24.2(H) 3.4 - 9.6 x10(9)/L 01/03/2024 7:01 AM NEUROLOGICAL PHYSIOTHERAPIST [facility] Neutrophils 22.28(H) 1.56 - 6.45 x10(9)/L 01/03/2024 7:01 AM NEUROLOGICAL PHYSIOTHERAPIST [facility] Lymphocytes 0.57(L) 0.95 - 3.07 x10(9)/L 01/03/2024 7:01 AM NEUROLOGICAL PHYSIOTHERAPIST [facility] Monocytes 1.15(H) 0.26 - 0.81 x10(9)/L 01/03/2024 7:01 AM NEUROLOGICAL PHYSIOTHERAPIST [facility] Eosinophils 0.09 0.03 - 0.48 x10(9)/L 01/03/2024 7:01 AM NEUROLOGICAL PHYSIOTHERAPIST [facility] Basophils 0.07 0.01 - 0.08 x10(9)/L 01/03/2024 7:01 AM NEUROLOGICAL PHYSIOTHERAPIST [facility] Blood (Blood, Venous) 01/03/2024 6:42 AM NEUROLOGICAL PHYSIOTHERAPIST 01/03/2024 6:55 AM NEUROLOGICAL PHYSIOTHERAPIST Octavio Cavazos, ChElielB. LAB BLOOD ADD-ON F inal Result [facility] [address] [place] [address], [facility] MKTO [facility] [address] * (ABNORMAL) Basic Metabolic Panel (01/03/2024 6:42 AM NEUROLOGICAL PHYSIOTHERAPIST) Potassium, P 2.8(L) 3.6 - 5.2 mmol/L 01/03/2024 7:46 AM NEUROLOGICAL PHYSIOTHERAPIST [facility] Sodium, P 140 135 - 145 mmol/L 01/03/2024 7:46 AM NEUROLOGICAL PHYSIOTHERAPIST [facility] Chloride, P 103 98 - 107 mmol/L 01/03/2024 7:46 AM NEUROLOGICAL PHYSIOTHERAPIST [facility] Bicarbonate, P 15(L) 22 - 29 mmol/L 01/03/2024 7:58 AM NEUROLOGICAL PHYSIOTHERAPIST [facility] Anion Gap, P 22(H) 7 - 15 01/03/2024 7:58 AM NEUROLOGICAL PHYSIOTHERAPIST [facility] BUN (Blood Urea Nitrogen), P 112(H) 8 - 24 mg/dL 01/03/2024 7:46 AM NEUROLOGICAL PHYSIOTHERAPIST [facility] Creatinine 3.76(H) 0.74 - 1.35 mg/dL 01/03/2024 7:46 AM NEUROLOGICAL PHYSIOTHERAPIST [facility] Estimated GFR (eGFR) 15(L) >=60 mL/min/BSA 01/03/2024 7:46 AM NEUROLOGICAL PHYSIOTHERAPIST MK[facility] Comment: Estimated GFR calculated using the 2020 CKD_EPI creatinine equation. Calcium, Total, P 7.7(L) 8.8 - 10.2 mg/dL 01/03/2024 7:46 AM NEUROLOGICAL PHYSIOTHERAPIST [facility] Glucose, P 81 70 - 140 mg/dL 01/03/2024 7:46 AM NEUROLOGICAL PHYSIOTHERAPIST [facility] Blood (Blood, Venous) 01/03/2024 6:42 AM NEUROLOGICAL PHYSIOTHERAPIST 01/03/2024 6:55 AM NEUROLOGICAL PHYSIOTHERAPIST us Octavio Cavazos, Ch.B. LAB BLOOD ADD-ON F inal Result [facility] [address] [place] [address], [facility] MKTO [facility] [place] [address] [place] [address] * Leukemia/Lymphoma Immunophenotyping by Flow Cytometry (01/03/2024 6:10 AM NEUROLOGICAL PHYSIOTHERAPIST) LCMS Result Performed 01/05/2024 1:37 PM NEUROLOGICAL PHYSIOTHERAPIST DTL Final Diagnosis: Pleural fluid, flow cytometric immunophenotyp ing: No monotypic B-cell population or increase in blasts identified. Reviewed by: Blank Crisostomo M.D. 01/05/2024 1:37 PM NEUROLOGICAL PHYSIOTHERAPIST DTL Special Studies: Results: Blasts: Not increased by CD45/side scatter and CD34. B-cells: Absence of UV16-czxfpykm B cells. B-cell markers tested: CD19, CD10 and kappa and lambda surface light chains. T-cells/NK-joelle ls: No aberrant phenotype by CD3 and CD16. Quality assessment: Specimen received within validated guidelines. 01/05/2024 1:37 PM NEUROLOGICAL PHYSIOTHERAPIST DTL Microscopic Description A Hu-Giemsa- stained slide prepared from the flow cytometry specimen is examined. Morphology is suboptimal. 01/05/2024 1:37 PM NEUROLOGICAL PHYSIOTHERAPIST DTL Comment: ----ADDITIONAL INFORMATION---- This test was developed using an analyte specific reagent. Its performance characteristics were determined by [facility] in a manner consistent with CLIA requirements. This test has not been cleared or approved by the U.S. Food and Drug Administration. Fluid (Pleural Fluid, Right) 01/03/2024 6:10 AM NEUROLOGICAL PHYSIOTHERAPIST 01/04/2024 8:57 AM NEUROLOGICAL PHYSIOTHERAPIST Octavio Cavazos, Ch.B. LAB GENETIC TESTIN G Final Result Performing Organization Address [facility] Co de Phone Number [facility] [address] [place] [address], [address] [address] * Cholesterol, Body Fluid (01/03/2024 6:10 AM NEUROLOGICAL PHYSIOTHERAPIST) Cholesterol, BF 34 See Comment mg/dL 01/05/2024 8:47 AM NEUROLOGICAL PHYSIOTHERAPIST DTL Comment: ----ADDITIONAL INFORMATION---- Pleural fluid cholesterol concentrations > 45 to 65 mg/dL are consistent with exudative effusions. Cholesterol concentrations > 200 mg/dL suggest pseudochylous effusions. Peritoneal fluid cholesterol concentrations > 32 to 70 mg/dL suggest a malignant cause of ascites. All other fluids refer to http://www.[employer].com for further interpretive information. This test has been modified from the tower air traffic control specialist's instructions. Its performance characteristics were determined by [facility] in a manner consistent with CLIA requirements. This test has not been cleared or approved by the U.S. Food and Drug Administration. Fluid Type Pleural 01/05/2024 8:14 AM NEUROLOGICAL PHYSIOTHERAPIST DTL Fluid (Pleural Fluid, Right) 01/03/2024 6:10 AM NEUROLOGICAL PHYSIOTHERAPIST 01/05/2024 7:49 AM NEUROLOGICAL PHYSIOTHERAPIST Octavio Cavazos, Ch.B. LAB BODY FLUIDS AN D STOOLS ORDERABLES Final Result Performing Organization Address [facility] Co de Phone Number [facility] [address] [place] [address], [facility] [address] [place] [address] * Glucose, Body Fluid (01/03/2024 6:10 AM NEUROLOGICAL PHYSIOTHERAPIST) Glucose, BF 134 See Comment mg/dL 01/05/2024 8:47 AM NEUROLOGICAL PHYSIOTHERAPIST DTL Comment: ----ADDITIONAL INFORMATION---- Body fluid glucose [...] cystic lesions. All other fluids refer to www.[employer]arisma Kidz for further interpretive information. This test has been modified from the tower air traffic control specialist's instructions. Its performance characteristics were determined by [facility] in a manner consistent with CLIA requirements. This test has not been cleared or approved by the U.S. Food and Drug Administration. Fluid Type, Glucose PLEURAL 01/04 8:14 AM NEUROLOGICAL PHYSIOTHERAPIST DTL Fluid (Pleural Fluid, Right) 01/03/2024 6:10 AM NEUROLOGICAL PHYSIOTHERAPIST 01/05/2024 7:49 AM NEUROLOGICAL PHYSIOTHERAPIST Octavio Cavazos, Ch.B. LAB BODY FLUIDS AN D STOOLS ORDERABLES Final Result [facility] [address] [place] [address], [facility] [place] [address] [place] [address] * M tuberculosis Complex PCR (01/03/2024 6:10 AM NEUROLOGICAL PHYSIOTHERAPIST) MTB Complex PCR, Specimen Source Fluid, Pleural Fluid, Right 01/06/2024 7:45 PM NEUROLOGICAL PHYSIOTHERAPIST DTL MTB Complex PCR, Result Negative Not Applicable 01/06/2024 7:45 PM NEUROLOGICAL PHYSIOTHERAPIST DTL Comment: A mycobacterial culture must always [...] developed and its performance characteristics determined by [facility] in a manner consistent with CLIA requirements. This test has not been cleared or approved by the U.S. Food and Drug Administration. Fluid (Pleural Fluid, Right) 01/03/2024 6:10 AM NEUROLOGICAL PHYSIOTHERAPIST 01/04/2024 10:24 AM NEUROLOGICAL PHYSIOTHERAPIST Octavio Cavazos, Ch.B. LAB MICROBIOLOGY - GENERAL ORDERABLES Final Result Performing Organization Address [facility] Co de Phone Number [facility] [address] [place] [address], [place] [address] * (ABNORMAL) Broad Range Bacteria PCR + Sequencing (01/03/2024 6:10 AM NEUROLOGICAL PHYSIOTHERAPIST) Broad Range Bacteria PCR+Sequenci ng This test was developed and its performance characteristics determined by [facility] in a manner consistent with CLIA requirements. This test has not been cleared or approved by the U.S. Food and Drug Administration. (A) 01/12/2024 9:31 AM NEUROLOGICAL PHYSIOTHERAPIST DTL Broad Range Bacteria PCR+Sequenci ng STREPTOCOCCUS INTERMEDIUS DNA detected (A) 01/12/2024 9:31 AM NEUROLOGICAL PHYSIOTHERAPIST DTL Comment:Semi-Urgent Result. Semi-Urgent This is a semi-urgent result(AUGUSTE) [facility] Fluid (Pleural Fluid, Right) 01/03/2024 6:10 AM NEUROLOGICAL PHYSIOTHERAPIST 01/04/2024 10:00 AM NEUROLOGICAL PHYSIOTHERAPIST Comment:Specimen Source Site : Fluid Octavio Cavazos, Ch.B. LAB MICROBIOLOGY - GENERAL ORDERABLES Final Result Performing Organization Address [facility] Co de Phone Number [facility] [address] [place] [address], [facility] [address] [place] [address] * Bacterial Culture, Anaerobic + Susceptibility (01/03/2024 6:10 AM NEUROLOGICAL PHYSIOTHERAPIST) Bacterial Culture, Anaerobic No growth after 7 days of incubation. 01/10/2024 6:24 AM NEUROLOGICAL PHYSIOTHERAPIST MKTO Fluid (Pleural Fluid, Right) 01/03/2024 6:10 AM NEUROLOGICAL PHYSIOTHERAPIST 01/03/2024 5:08 PM NEUROLOGICAL PHYSIOTHERAPIST Comment:Specimen Source Site : Fluid Octavio Cavazos, B. LAB MICROBIOLOGY - GENERAL ORDERABLES Final Result [facility] [address] [place] [address], [facility] MKTO [facility] [place] [address] [place] [address] * (ABNORMAL) Bacterial Culture, Aerobic + Susceptibility (01/03/2024 6:10 AM NEUROLOGICAL PHYSIOTHERAPIST) Bacterial Culture, Aerobic + Susc STREPTOCOCCUS ANGINOSUS GROUP 4+ (A) 01/06/2024 12:07 PM NEUROLOGICAL PHYSIOTHERAPIST [facility] Fluid (Pleural Fluid, Right) 01/03/2024 6:10 AM NEUROLOGICAL PHYSIOTHERAPIST 01/03/2024 5:08 PM NEUROLOGICAL PHYSIOTHERAPIST Comment:Specimen Source Site : Fluid Narrative Organism [...] GENERAL ORDERABLES Final Result Performing Organization Address [facility] Co de Phone Number [facility] [address] [place] [address], [place] [address] * (ABNORMAL) Gram Stain (01/03/2024 6:10 AM NEUROLOGICAL PHYSIOTHERAPIST) Gram Stain White blood cells, Many.(A) 01/03/2024 5:33 PM NEUROLOGICAL PHYSIOTHERAPIST MKTO Gram Stain GRAM POSITIVE COCCI Many. (A) 01/03/2024 5:33 PM NEUROLOGICAL PHYSIOTHERAPIST MKTO Fluid (Pleural Fluid, Right) 01/03/2024 6:10 AM NEUROLOGICAL PHYSIOTHERAPIST 01/03/2024 5:08 PM NEUROLOGICAL PHYSIOTHERAPIST Comment:Specimen Source Site : Fluid Octavio Cavazos, Ch.B. LAB MICROBIOLOGY - GENERAL ORDERABLES Final Result Performing Organization Address [facility] Co de Phone Number [facility] [address] [place] [address], [place] [phone] * Cell Count and Differential, Body Fluid (01/03/2024 6:10 AM NEUROLOGICAL PHYSIOTHERAPIST) Fluid Type Pleural/Tho racentesis 01/03/2024 6:21 PM NEUROLOGICAL PHYSIOTHERAPIST MKTO Gross Appearance Milky 01/03/20 24 6:22 PM NEUROLOGICAL PHYSIOTHERAPIST MKTO Total Nucleated Cells [id number] /[id number] 01/03/2024 6:22 PM NEUROLOGICAL PHYSIOTHERAPIST MKTO Comment: ----REFERENCE VALUE---- Synovial: <150 Peritoneal: <500 Pleural: <500 Pericardial: <500 ----ADDITIONAL INFORMATION---- This test has been modified from the tower air traffic control specialist's instructions. Its performance characteristics were determined by [facility] in a manner consistent with CLIA requirements. This test has not been cleared or approved by the U.S. Food and Drug Administration. Neutrophils 100 % 01/03/2024 6:21 PM NEUROLOGICAL PHYSIOTHERAPIST MKTO Comment: ----REFERENCE VALUE---- Synovial: <25% Peritoneal: <25% Pleural: <25% Pericardial: <25% Reviewed by: Dr. Rizvi 01/04/2024 8:06 AM NEUROLOGICAL PHYSIOTHERAPIST MKTO Comment: REVISED RESULTS ----PREVIOUSLY REPORTED ---- To be reviewed Flagged as: N/A (Reported 01/03/2024 18:22) Fluid (Pleural Fluid, Right) 01/03/2024 6:10 AM NEUROLOGICAL PHYSIOTHERAPIST 01/03/2024 5:08 PM NEUROLOGICAL PHYSIOTHERAPIST us Octavio Cavazos, Ch.B. LAB BODY F LUIDS AND STOOLS ORDERABLES Edited Result - Final [facility] [address] [place] [address], [facility] [place] [address] * Protein, Total, Body Fluid (01/03/2024 6:10 AM NEUROLOGICAL PHYSIOTHERAPIST) Protein, Total, BF 0.9 See Comment g/dL 01/05/2024 8:47 AM NEUROLOGICAL PHYSIOTHERAPIST DTL Comment: ----ADDITIONAL INFORMATION---- A pleural fluid [...] clinical findings. All other fluids refer to [email or web address] for further interpretive information. This test has been modified from the tower air traffic control specialist's instructions. Its performance characteristics were determined by [facility] in a manner consistent with CLIA requirements. This test has not been cleared or approved by the U.S. Food and Drug Administration. Fluid Type, Protein, Total PLEURAL 01/05/2024 8:14 AM NEUROLOGICAL PHYSIOTHERAPIST DTL Fluid (Pleural Fluid, Right) 01/03/2024 6:10 AM NEUROLOGICAL PHYSIOTHERAPIST 01/05/2024 7:49 AM NEUROLOGICAL PHYSIOTHERAPIST Octavio Cavazos, Ch.B. LAB BODY FLUIDS AN D STOOLS ORDERABLES Final Result [facility] [address] [place] [address], [facility] [place] [address] [place] [address] * Lactate Dehydrogenase (LD), Body Fluid (01/03/2024 6:10 AM NEUROLOGICAL PHYSIOTHERAPIST) Lactate Dehydrogenase (LD), BF >9000 See Comment U/L 01/05/2024 5:08 PM NEUROLOGICAL PHYSIOTHERAPIST DTL Comment: ----ADDITIONAL INFORMATION---- Pleural fluid lactate [...] clinical findings. All other fluids refer to [email or web address] for further interpretive information. This test has been modified from the tower air traffic control specialist's instructions. Its performance characteristics were determined by [facility] in a manner consistent with CLIA requirements. This test has not been cleared or approved by the U.S. Food and Drug Administration. Fluid Type, Lactate Dehydrogenase PLEURAL 01/05/2024 8:14 AM NEUROLOGICAL PHYSIOTHERAPIST DTL Fluid (Pleural Fluid, Right) 01/03/2024 6:10 AM NEUROLOGICAL PHYSIOTHERAPIST 01/05/2024 8:01 AM NEUROLOGICAL PHYSIOTHERAPIST Octavio Cavazos, Ch.B. LAB BODY FLUIDS AN D STOOLS ORDERABLES Final Result [facility] [address] [place] [address], [facility] [place] [address] [place] [address] * DX Chest Portable 1 View (01/02/2024 3:59 PM NEUROLOGICAL PHYSIOTHERAPIST) Anatomical Region Laterality Modality Chest, Thoracic RST LOS, Tho racic ARZ LOS, Thoracic FLA LOS N/A Digital Radiography Impressions 01/02/2024 4:13 PM NEUROLOGICAL PHYSIOTHERAPIST Right jugular catheter terminates at the mid SVC. No pneumothorax. Narrative 01/02/2024 4:13 PM NEUROLOGICAL PHYSIOTHERAPIST EXAM: DX CHEST PORTABLE 1 VIEW COMPARISON: [...] DIAGNOSTIC IMAGI NG PROCEDURES Final Result * VA INS NON-BLAINE CVC >5YR, VA US GUIDE VASC ACCESS, LDA ANE CENTRAL LINE DOUBLE LUMEN ADULT, MC ANE CENTRAL LINE GENERIC PERFORMABLE (01/02/2024 3:47 PM NEUROLOGICAL PHYSIOTHERAPIST) Narrative Nikki Salinas M.D. - 01/02/2024 3:47 PM NEUROLOGICAL PHYSIOTHERAPIST Nikki Salinas M.D. 01/02/2024 3:50 PM Invasive [...] Final Result * Magnesium (01/02/2024 11:32 AM NEUROLOGICAL PHYSIOTHERAPIST) Magnesium, P 1.7 1.7 - 2.3 mg/dL 01/02/2024 2:38 PM NEUROLOGICAL PHYSIOTHERAPIST MKTO Blood (Blood, Venous) 01/02/2024 11:32 AM NEUROLOGICAL PHYSIOTHERAPIST 01/02/2024 2:24 PM NEUROLOGICAL PHYSIOTHERAPIST us Octavio Cavazos, Ch.B. LAB BLOOD ADD-ON F inal Result [facility] [address] [place] [address], [facility] MKTO [facility] [place] [address] [place] [address] * (ABNORMAL) Basic Metabolic Panel (01/02/2024 11:32 AM NEUROLOGICAL PHYSIOTHERAPIST) Potassium, P 3.0(L) 3.6 - 5.2 mmol/L 01/02/2024 12:57 PM NEUROLOGICAL PHYSIOTHERAPIST MKTO Sodium, P 136 135 - 145 mmol/L 01/02/2024 12:57 PM NEUROLOGICAL PHYSIOTHERAPIST MKTO Chloride, P 102 98 - 107 mmol/L 01/02/2024 12:57 PM NEUROLOGICAL PHYSIOTHERAPIST MKTO Bicarbonate, P 11(L) 22 - 29 mmol/L 01/02/2024 1:11 PM NEUROLOGICAL PHYSIOTHERAPIST MKTO Anion Gap, P 23(H) 7 - 15 01/02/2024 1:11 PM NEUROLOGICAL PHYSIOTHERAPIST MKTO BUN (Blood Urea Nitrogen), P 156(H) 8 - 24 mg/dL 01/02/2024 1:11 PM NEUROLOGICAL PHYSIOTHERAPIST MKTO Creatinine 5.07(H) 0.74 - 1.35 mg/dL 01/02/2024 12:57 PM NEUROLOGICAL PHYSIOTHERAPIST MKTO Estimated GFR (eGFR) <15(L) >=60 mL/min/BSA 01/02/2024 12:57 PM NEUROLOGICAL PHYSIOTHERAPIST MKTO Comment: Estimated GFR calculated using the 2020 CKD_EPI creatinine equation. Calcium, Total, P 7.4(L) 8.8 - 10.2 mg/dL 01/02/2024 12:57 PM NEUROLOGICAL PHYSIOTHERAPIST MKTO Glucose, P 73 70 - 140 mg/dL 01/02/2024 12:57 PM NEUROLOGICAL PHYSIOTHERAPIST MKTO Blood (Blood, Venous) 01/02/2024 11:32 AM NEUROLOGICAL PHYSIOTHERAPIST 01/02/2024 12:25 PM NEUROLOGICAL PHYSIOTHERAPIST us Jet Palomares M.D. LAB BLOOD ADD-ON Final Result [facility] [address] [place] [address], [facility] MKTO [facility] [place] [address] [place] [address] * US Kidneys Bilateral with Bladder (01/02/2024 10:15 AM NEUROLOGICAL PHYSIOTHERAPIST) Anatomical Region Laterality Modality Abdomen, Renal, Ultrasound R ST LOS, Ultrasound ARZ LOS, Ultrasound FLA LOS Bilateral Ultrasound Impressions 01/02/2024 10:57 AM NEUROLOGICAL PHYSIOTHERAPIST 1. No hydronephrosis. 2. Bilateral simple appearing renal cysts. Narrative 01/02/2024 10:57 AM NEUROLOGICAL PHYSIOTHERAPIST EXAM: US KIDNEYS BILATERAL WITH BLADDER COMPARISON: [...] Chest Portable 1 View (01/02/2024 4:24 AM NEUROLOGICAL PHYSIOTHERAPIST) Anatomical Region Laterality Modality Chest, Thoracic RST LOS, Tho racic ARZ LOS, Thoracic FLA LOS N/A Digital Radiography Impressions 01/02/2024 4:28 AM NEUROLOGICAL PHYSIOTHERAPIST 1. Small right pleural effusion with associated atelectasis. Minimal left basilar atelectasis. Narrative 01/02/2024 4:28 AM NEUROLOGICAL PHYSIOTHERAPIST EXAM: DX CHEST PORTABLE 1 VIEW COMPARISON: [...] * CK (Creatine Kinase) (01/02/2024 4:10 AM NEUROLOGICAL PHYSIOTHERAPIST) Creatine Kinase, P 78 39 - 308 U/L 01/02/2024 9:49 AM NEUROLOGICAL PHYSIOTHERAPIST MKTO Blood (Blood, Venous) 01/02/2024 4:10 AM NEUROLOGICAL PHYSIOTHERAPIST 01/02/2024 9:30 AM NEUROLOGICAL PHYSIOTHERAPIST us Jet Palomares M.D. LAB BLOOD ADD-ON Final Result [facility] [address] [place] [address], [place] [address] * (ABNORMAL) Albumin (01/02/2024 4:10 AM NEUROLOGICAL PHYSIOTHERAPIST) Albumin, P 2.1(L) 3.5 - 5.0 g/dL 01/02/2024 4:37 AM NEUROLOGICAL PHYSIOTHERAPIST MKTO Blood (Blood, Venous) 01/02/2024 4:10 AM NEUROLOGICAL PHYSIOTHERAPIST 01/02/2024 4:10 AM NEUROLOGICAL PHYSIOTHERAPIST us Deanna Lewis APRN, C.N.P., D.N.P., M.S.N. LAB B LOOD ADD-ON Final Result Performing Organization Address City/[facility]/ZIP Co de Phone Number [facility] [address] [place] [address], [place] [phone] * (ABNORMAL) Calcium, Ionized (01/02/2024 4:10 AM NEUROLOGICAL PHYSIOTHERAPIST) Calcium, Ionized, B 4.08(L) 4.65 - 5.30 mg/dL 01/02/2024 4:14 AM NEUROLOGICAL PHYSIOTHERAPIST MKTO Blood 01/02/2024 4:10 AM NEUROLOGICAL PHYSIOTHERAPIST 01/02/2024 4:10 AM NEUROLOGICAL PHYSIOTHERAPIST us Deanna Lewis APRN, C.N.P., D.N.P., M.S.N. LAB B LOOD NON ADD-ON Final Result Performing Organization Address City/[facility]/ZIP Co de Phone Number [facility] [address] [place] [address], [place] [address] * (ABNORMAL) pH (01/02/2024 4:10 AM NEUROLOGICAL PHYSIOTHERAPIST) pH 7.29(L) 7.35 - 7.45 pH 01/02/2024 4:14 AM NEUROLOGICAL PHYSIOTHERAPIST MKTO Blood 01/02/2024 4:10 AM NEUROLOGICAL PHYSIOTHERAPIST 01/02/2024 4:10 AM NEUROLOGICAL PHYSIOTHERAPIST Deanna Lewis APRN, C.N.P., D.N.P., M.S.N. LAB H ISTORICAL ORDERS Final Result [facility] [address] [place] [address], [place] [address] * (ABNORMAL) Phosphorus Inorganic (01/02/2024 3:41 AM NEUROLOGICAL PHYSIOTHERAPIST) Phosphorus (Inorganic), P 6.3(H) 2.5 - 4.5 mg/dL 01/02/2024 6:25 AM NEUROLOGICAL PHYSIOTHERAPIST MKTO Blood (Blood, Venous) 01/02/2024 3:41 AM NEUROLOGICAL PHYSIOTHERAPIST 01/02/2024 6:13 AM NEUROLOGICAL PHYSIOTHERAPIST Deanna Lewis APRN, C.N.P., D.N.P., M.S.N. LAB B LOOD ADD-ON Final Result [facility] [address] [place] [address], [address] [address] * (ABNORMAL) Magnesium (01/02/2024 3:41 AM NEUROLOGICAL PHYSIOTHERAPIST) Magnesium, P 1.3(L) 1.7 - 2.3 mg/dL 01/02/2024 6:11 AM NEUROLOGICAL PHYSIOTHERAPIST MKTO Blood (Blood, Venous) 01/02/2024 3:41 AM NEUROLOGICAL PHYSIOTHERAPIST 01/02/2024 5:56 AM NEUROLOGICAL PHYSIOTHERAPIST Scar Torres APRN.N.P., Arlene.N.P., M.S.N. LAB B LOOD ADD-ON Final Result [facility] [address] [place] [address], [place] [address] * Lactate, B (01/02/2024 3:41 AM NEUROLOGICAL PHYSIOTHERAPIST) Lactate, B 0.8 0.5 - 2.2 mmol/L 01/02/2024 4:47 AM NEUROLOGICAL PHYSIOTHERAPIST [facility] Blood (Blood, Venous) 01/02/2024 3:41 AM NEUROLOGICAL PHYSIOTHERAPIST 01/02/2024 4:45 AM NEUROLOGICAL PHYSIOTHERAPIST Deanna Lewis APRN, Scar.N.P., Arlene.N.P., M.S.N. LAB B LOOD NON ADD-ON Final Result Performing Organization Address City/[facility]/ZIP Co de Phone Number [facility] [address] [place] [address], [place] [phone] * (ABNORMAL) NT-Pro B-Type Natriuretic Peptide (BNP) (01/02/2024 3:41 AM NEUROLOGICAL PHYSIOTHERAPIST) NT-Pro BNP 2051(H) <=540 pg/mL 01/02/2024 5:01 AM NEUROLOGICAL PHYSIOTHERAPIST [facility] Comment: NT-proBNP values less than 300 [...] failure. Blood (Blood, Venous) 01/02/2024 3:41 AM NEUROLOGICAL PHYSIOTHERAPIST 01/02/2024 4:45 AM NEUROLOGICAL PHYSIOTHERAPIST us Deanna Lewis APRN, C.N.P., D.N.P., M.S.N. LAB B LOOD ADD-ON Final Result Performing Organization Address City/[facility]/ZIP Co de Phone Number [facility] [address] [place] [address], [facility] MKTO [facility] [place] [address] [place] [address] * (ABNORMAL) Blood Gas with Coox, Venous (01/02/2024 3:41 AM NEUROLOGICAL PHYSIOTHERAPIST) pO2, Venous 49 Not applicable mm Hg 01/02/2024 4:14 AM NEUROLOGICAL PHYSIOTHERAPIST MKTO pCO2, Venous 29(L) 41 - 51 mm Hg 4:14 AM NEUROLOGICAL PHYSIOTHERAPIST MKTO pH, Venous 7.29(L) 7.32 - 7.43 pH 01/02/2024 4:14 AM NEUROLOGICAL PHYSIOTHERAPIST MKTO Base Excess, Venous -12 Not applicable mmol/L 01/02/2024 4:14 AM NEUROLOGICAL PHYSIOTHERAPIST MKTO HCO3, Venous 13 Not applicable mmol/L 01/02/2024 4:14 AM NEUROLOGICAL PHYSIOTHERAPIST MKTO Hemoglobin, Venous 9.6(L) 13.2 - 16.6 g/dL 01/02/2024 4:14 AM NEUROLOGICAL PHYSIOTHERAPIST MKTO O2Hb, Venous 79.4 Not applicable % 01/02/2024 4:14 AM NEUROLOGICAL PHYSIOTHERAPIST MKTO COHb, Venous 0.2 <3.0 % 01/02/2024 4:14 AM NEUROLOGICAL PHYSIOTHERAPIST MKTO MetHb, Venous 1.2 <1.5 % 01/02/2024 4:14 AM NEUROLOGICAL PHYSIOTHERAPIST MKTO CtO2, Venous 10.8 Not Applicable vol % 01/02/2024 4:14 AM NEUROLOGICAL PHYSIOTHERAPIST MKTO Blood (Blood, Venous) 01/02/2024 3:41 AM NEUROLOGICAL PHYSIOTHERAPIST 01/02/2024 4:05 AM NEUROLOGICAL PHYSIOTHERAPIST us Fausto Bey M.D. LAB BLOOD NON ADD-ON Final Resu lt [facility] [address] [place] [address], [facility] in [address] [address] * (ABNORMAL) Osmolality (01/02/2024 3:41 AM NEUROLOGICAL PHYSIOTHERAPIST) Pathologist [facility] Osmolality, S 338(H) 276 - 306 mOsm/kg 01/02/2024 5:40 AM NEUROLOGICAL PHYSIOTHERAPIST MKTO Blood (Blood, Venous) 01/02/2024 3:41 AM NEUROLOGICAL PHYSIOTHERAPIST 01/02/2024 4:05 AM NEUROLOGICAL PHYSIOTHERAPIST Fausto Bey M.D. LAB BLOOD ADD-ON Final Result [facility] [address] [place] [address], [facility] [place] [address] * (ABNORMAL) CBC with Differential, Blood (01/02/2024 3:41 AM NEUROLOGICAL PHYSIOTHERAPIST) [facility] Hemoglobin 9.3(L) 13.2 - 16.6 g/dL 01/02/2024 4:09 AM NEUROLOGICAL PHYSIOTHERAPIST MKTO Hematocrit 27.1(L) 38.3 - 48.6 % 01/02/2024 4:09 AM NEUROLOGICAL PHYSIOTHERAPIST MKTO Erythrocytes 3.04(L) 4.35 - 5.65 x10(12)/L 01/02/2024 4:09 AM NEUROLOGICAL PHYSIOTHERAPIST MKTO MCV 89.1 78.2 - 97.9 fL 01/02/2024 4:09 AM NEUROLOGICAL PHYSIOTHERAPIST MKTO RBC Distrib Width 15.2(H) 11.8 - 14.5 % 01/02/2024 4:09 AM NEUROLOGICAL PHYSIOTHERAPIST MKTO Platelet Count 480(H) 135 - 317 x10(9)/L 01/02/2024 4:09 AM NEUROLOGICAL PHYSIOTHERAPIST MKTO Leukocytes 26.6(H) 3.4 - 9.6 x10(9)/L 01/02/2024 4:09 AM NEUROLOGICAL PHYSIOTHERAPIST MKTO Neutrophils 24.68(H) 1.56 - 6.45 x10(9)/L 01/02/2024 4:09 AM NEUROLOGICAL PHYSIOTHERAPIST MKTO Lymphocytes 0.64(L) 0.95 - 3.07 x10(9)/L 01/02/2024 4:09 AM NEUROLOGICAL PHYSIOTHERAPIST MKTO Monocytes 1.15(H) 0.26 - 0.81 x10(9)/L 01/02/2024 4:09 AM NEUROLOGICAL PHYSIOTHERAPIST MKTO Eosinophils 0.08 0.03 - 0.48 x10(9)/L 01/02/2024 4:09 AM NEUROLOGICAL PHYSIOTHERAPIST MKTO Basophils 0.06 0.01 - 0.08 x10(9)/L 01/02/2024 4:09 AM NEUROLOGICAL PHYSIOTHERAPIST MKTO Blood (Blood, Venous) 01/02/2024 3:41 AM NEUROLOGICAL PHYSIOTHERAPIST 01/02/2024 4:05 AM NEUROLOGICAL PHYSIOTHERAPIST us Fausto Bey M.D. LAB BLOOD ADD-ON Final Result [facility] [address] [place] [address], [facility] MKTO [place] [address] * (ABNORMAL) Basic Metabolic Panel (01/02/2024 3:41 AM NEUROLOGICAL PHYSIOTHERAPIST) Potassium, P 2.9(L) 3.6 - 5.2 mmol/L 01/02/2024 4:37 AM NEUROLOGICAL PHYSIOTHERAPIST MKTO Sodium, P 137 135 - 145 mmol/L 01/02/2024 4:37 AM NEUROLOGICAL PHYSIOTHERAPIST MKTO Chloride, P 102 98 - 107 mmol/L 01/02/2024 4:37 AM NEUROLOGICAL PHYSIOTHERAPIST MKTO Bicarbonate, P 12(L) 22 - 29 mmol/L 01/02/2024 4:43 AM NEUROLOGICAL PHYSIOTHERAPIST MKTO Anion Gap, P 23(H) 7 - 15 01/02/2024 4:43 AM NEUROLOGICAL PHYSIOTHERAPIST [facility] BUN (Blood Urea Nitrogen), P 157(H) 8 - 24 mg/dL 01/02/2024 4:50 AM NEUROLOGICAL PHYSIOTHERAPIST MKTO Creatinine 5.30(H) 0.74 - 1.35 mg/dL 01/02/2024 4:37 AM NEUROLOGICAL PHYSIOTHERAPIST MKTO Estimated GFR (eGFR) <15(L) >=60 mL/min/BSA 01/02/2024 4:37 AM NEUROLOGICAL PHYSIOTHERAPIST MKTO Comment: Estimated GFR calculated using the 2020 CKD_EPI creatinine equation. Calcium, Total, P 6.7(L) 8.8 - 10.2 mg/dL 01/02/2024 4:48 AM NEUROLOGICAL PHYSIOTHERAPIST MKTO Glucose, P 77 70 - 140 mg/dL 01/02/2024 4:37 AM NEUROLOGICAL PHYSIOTHERAPIST MKTO Blood (Blood, Venous) 01/02/2024 3:41 AM NEUROLOGICAL PHYSIOTHERAPIST 01/02/2024 4:05 AM NEUROLOGICAL PHYSIOTHERAPIST Fausto Bey M.D. LAB BLOOD ADD-ON Final Result Performing Organization Address City/[facility] Co de Phone Number [facility] [address] [place] [address], [facility] MKTO [place] [address] * ECG 12 Lead (01/02/2024 12:39 AM NEUROLOGICAL PHYSIOTHERAPIST) Ventricular Rate ECG/Min 93 BPM MUSE VA Interval 164 ms MUSE QRSD Interval 138 ms MUSE QT Interval 424 ms MUSE QTC Interval 527 ms MUSE P [place] 48 degrees MUSE R [place] -84 degrees MUSE T Wave [place] 71 degrees MUSE 01/02/2024 12:3 9 AM NEUROLOGICAL PHYSIOTHERAPIST 01/02/2024 6:17 AM NEUROLOGICAL PHYSIOTHERAPIST Impressions MUSE - 01/02/2024 6:17 AM NEUROLOGICAL PHYSIOTHERAPIST Normal sinus rhythm Right bundle branch block [...] ECG ORDERABLES Final Result Performing Organization Address City/[facility]/ZIP Co de Phone Number MUSE NA documented in this encounter Visit Diagnoses Diagnosis Failure Renal Acute (Acute Kidney Injury) (HCC)- Primary Failure Renal Acute (Acute Kidney Injury) (HCC) Pneumonia Empyema Pleural (HCC) Pneumonia Mass Lung Hyponatremia Hypokalemia documented in this encounter Admitting Diagnoses Diagnosis Failure Renal Acute (Acute Kidney Injury) (HCC) documented in this encounter Administered Medications Inactive Administered Medications - up to 3 most recent administrations Medication Order MAR Action Action Date Dose Rate Site acetaminophen tablet 500 mg (TylenoL) 500 mg, oral, Every 6 hours PRN, mild pain or score 1-3 of 10, headaches, fever, Starting on Thu01/01/24 at 2119, Not to exceed 4 grams of acetaminophen in 24 hours all sources Given 01/11/2024 8:06 AM NEUROLOGICAL PHYSIOTHERAPIST 500 mg Given 01/07/2024 10:12 PM NEUROLOGICAL PHYSIOTHERAPIST 500 mg Given 01/07/2024 10:44 AM NEUROLOGICAL PHYSIOTHERAPIST 500 mg albumin human 25 % injection 12.5 g 12.5 g, intravenous, Once, On Thu01/02/24 at 0600, For 1 dose, If no infusion rate specified: Administer the 25% solution at 100 mL/hr New Bag 01/02/2024 5:44 AM NEUROLOGICAL PHYSIOTHERAPIST 12.5 g albumin human 5 % injection 37.5 g 37.5 g, intravenous, Once, On Thu01/02/24 at 1330, For 1 dose, If no infusion rate specified: Administer the 5% solution at 999 mL/hr or less if ICU/shock, otherwise infuse at 250 mL/hr. New Bag 01/02/2024 2:13 PM NEUROLOGICAL PHYSIOTHERAPIST 37.5 g alteplase 10 mg in NaCl 0.9% intrapleural solution 10 mg, intrapleural, Every 12 hours scheduled, First dose on Thu01/05/24 at 1630, For 6 doses, Alteplase dose is instilled followed by 0.9% NaCl flush, then administer dornase dose followed by 0.9% NaCl flush. Clamp chest tube for 1 hour then unclamped and drained for 2 hours. Given 01/08/2024 8:32 AM NEUROLOGICAL PHYSIOTHERAPIST 10 m g Given 01/07/2024 9:35 PM NEUROLOGICAL PHYSIOTHERAPIST 10 mg Given 01/07/2024 9:33 AM NEUROLOGICAL PHYSIOTHERAPIST 10 mg ampicillin-sulbactam 3 g in NaCl 0.9% IVPB (Unasyn) 3 g, intravenous, at 400 mL/hr, Administer over 15 Minutes, Every 12 hours, First dose on Beata 01/07/24 at 0800, Mini-Bag Plus bag, Drug Monitoring Program: Pharmacist to adjust medication dosing based on indication and drug clearance factors., Indications: Respiratory tract infection, community acquiredIndications:Respiratory tract infection, community acquired New Bag 01/09/2024 7:37 AM NEUROLOGICAL PHYSIOTHERAPIST 3 g 4 00 mL/hr New Bag 01/08/2024 8:45 PM NEUROLOGICAL PHYSIOTHERAPIST 3 g 400 mL/hr New Bag 01/08/2024 8:30 AM NEUROLOGICAL PHYSIOTHERAPIST 3 g 400 mL/hr ampicillin-sulbactam 3 g in NaCl 0.9% IVPB (Unasyn) 3 g, intravenous, at 400 mL/hr, Administer over 15 Minutes, Every 12 hours scheduled, First dose (after last modification) on 01/09/24 at 2100, Mini-Bag Plus bag, Drug Monitoring Program: Pharmacist to adjust medication dosing based on indication and drug clearance factors., Indications: Respiratory tract infection, community acquiredIndications:Respiratory tract infection, community acquired New Bag 01/11/2024 8:06 AM NEUROLOGICAL PHYSIOTHERAPIST 3 g 4 00 mL/hr New Bag 01/10/2024 9:26 PM NEUROLOGICAL PHYSIOTHERAPIST 3 g 400 mL/hr New Bag 01/10/2024 9:20 AM NEUROLOGICAL PHYSIOTHERAPIST 3 g 400 mL/hr barium 40 % (w/v), 30% (w/w) paste 15 mL (Varibar Pudding) 15 mL, oral, Once in imaging, contrast, For video swallow, Starting on 01/11/24 at 1340, For 1 dose, Imaging Protocol Orders Given 01/11/2024 12:45 PM NEUROLOGICAL PHYSIOTHERAPIST 15 mL barium 81 % (w/w) oral powder for suspension 24 g (Varibar Thin Liquid) 24 g (60 mL), oral, Once in imaging, contrast, Starting on 01/11/24 at 1340, For 1 dose, Imaging Protocol Orders Given 01/11/2024 12:45 PM NEUROLOGICAL PHYSIOTHERAPIST 24 g calcium gluc in NaCl, iso osm [...] intravenous catheter. New Bag 01/02/2024 5:09 AM NEUROLOGICAL PHYSIOTHERAPIST 2 g 400 mL/hr cefTRIAXone injection 2 g (Rocephin) 2 g, intravenous, Daily, First dose on Thu01/03/24 at 1030, If needed, reconstitute vial per package insert instructions. See IVAG for administration guidelines., Drug Monitoring Program: Pharmacist to adjust medication dosing based on indication and drug clearance factors., Indications: Respiratory tract infection, community acquiredIndications:Respiratory tract infection, community acquired Given 01/06/2024 8:38 AM NEUROLOGICAL PHYSIOTHERAPIST 2 g Given 01/05/2024 8:21 AM NEUROLOGICAL PHYSIOTHERAPIST 2 g Given 01/04/2024 8:04 AM NEUROLOGICAL PHYSIOTHERAPIST 2 g dornase ember 5 mg in sterile water intrapleural solution 5 mg, intrapleural, Every 12 hours scheduled, First dose on Thu01/05/24 at 1630, For 6 doses, Alteplase dose is instilled followed by 0.9% NaCl flush, then administer dornase dose followed by 0.9% NaCl flush. Clamp chest tube for 1 hour then unclamped and drained for 2 hours. Given 01/08/2024 8:32 AM NEUROLOGICAL PHYSIOTHERAPIST 5 mg Given 01/07/2024 9:35 PM NEUROLOGICAL PHYSIOTHERAPIST 5 mg Given 01/07/2024 9:34 AM NEUROLOGICAL PHYSIOTHERAPIST 5 mg doxycycline 100 mg in NaCl 0.9% IVPB (Vibramycin) 100 mg, intravenous, at 100 mL/hr, Administer over 60 Minutes, Every 12 hours scheduled, First dose on Thu01/03/24 at 1030, Mini-Bag Plus bag, Indications: Respiratory tract infection, community acquiredIndications:Respiratory tract infection, community acquired New Bag 01/05/2024 8:20 AM NEUROLOGICAL PHYSIOTHERAPIST 100 m g 100 mL/hr New Bag 01/04/2024 8:55 PM NEUROLOGICAL PHYSIOTHERAPIST 100 mg 100 mL/hr New Bag 01/04/2024 8:04 AM NEUROLOGICAL PHYSIOTHERAPIST 100 mg 100 mL/hr gabapentin capsule 100 mg (Neurontin) 100 mg, oral, 3 times daily, First dose on Thu01/10/24 at 1045 Given 01/11/2024 8:06 AM NEUROLOGICAL PHYSIOTHERAPIST 100 mg Given 01/10/2024 9:24 PM NEUROLOGICAL PHYSIOTHERAPIST 100 mg Given 01/10/2024 10:47 AM NEUROLOGICAL PHYSIOTHERAPIST 100 mg heparin (porcine) injection 5,000 Units 5,000 Units, subcutaneous, Every 8 hours scheduled, First dose on Thu01/01/24 at 2200 Given 01/04/2024 5:54 AM NEUROLOGICAL PHYSIOTHERAPIST 5,000 Units Left Upper Abdomen Given 01/03/2024 9:09 PM NEUROLOGICAL PHYSIOTHERAPIST 5,000 Units L eft Lower Abdomen Given 01/03/2024 5:55 AM NEUROLOGICAL PHYSIOTHERAPIST 5,000 Units L eft Upper Abdomen heparin (porcine) injection 5,000 Units 5,000 Units, subcutaneous, Every 8 hours scheduled, First dose (after last modification) on Thu01/05/24 at 2200 Given 01/11/2024 6:41 AM NEUROLOGICAL PHYSIOTHERAPIST 5,000 Units Right Lower Abdomen Given 01/10/2024 9:24 PM NEUROLOGICAL PHYSIOTHERAPIST 5,000 Units L eft Lower Abdomen Given 01/10/2024 3:51 PM NEUROLOGICAL PHYSIOTHERAPIST 5,000 Units L eft Lower Abdomen Lactated Ringer's bolus 250 mL 250 mL, intravenous, at 250 mL/hr, Administer over 1 Hours, Once, On Thu01/02/24 at 0130, For 1 dose New Bag 01/02/2024 1:21 AM NEUROLOGICAL PHYSIOTHERAPIST 250 mL 250 mL/hr Lactated Ringer's bolus 250 mL 250 mL, intravenous, at 250 mL/hr, Administer over 1 Hours, Once, On Thu01/02/24 at 0400, For 1 dose New Bag 01/02/2024 3:49 AM NEUROLOGICAL PHYSIOTHERAPIST 250 mL 250 mL/hr lidocaine (PF) 10 mg/mL (1 %) injection 10 mL (Xylocaine) 10 mL, subcutaneous, Once, On Thu01/03/24 at 1657, For 1 dose Given 01/03/2024 4:57 PM NEUROLOGICAL PHYSIOTHERAPIST 10 mL Right Chest lidocaine-sodium bicarbonate (buffered) 0.9%-0.84% injection infiltration, As needed, Starting on Thu01/05/24 at 1335, Intra-Op Given 01/05/2024 1:35 PM NEUROLOGICAL PHYSIOTHERAPIST 10 mL magnesium sulfate in D5W IVPB 1 g 1 g, intravenous, at 100 mL/hr, Administer over 60 Minutes, Once, On Thu01/08/24 at 0815, For 1 dose New Bag 01/08/2024 8:30 AM NEUROLOGICAL PHYSIOTHERAPIST 1 g 100 mL/hr magnesium sulfate in D5W IVPB 1 g 1 g, intravenous, at 100 mL/hr, Administer over 60 Minutes, Once, On Thu01/10/24 at 0830, For 1 dose New Bag 01/10/2024 10:42 AM NEUROLOGICAL PHYSIOTHERAPIST 1 g 100 mL/hr magnesium sulfate in water IVPB 2 g 2 g, intravenous, at 25 mL/hr, Administer over 120 Minutes, Once, On Thu01/02/24 at 0645, For 1 dose New Bag 01/02/2024 6:43 AM NEUROLOGICAL PHYSIOTHERAPIST 2 g 25 mL/hr magnesium sulfate in water IVPB 2 g 2 g, intravenous, at 25 mL/hr, Administer over 120 Minutes, Once, On Thu01/06/24 at 0645, For 1 dose New Bag 01/06/2024 6:36 AM NEUROLOGICAL PHYSIOTHERAPIST 2 g 25 mL/hr melatonin tablet 3 mg 3 mg, oral, Bedtime PRN, sleep, Starting on Thu01/04/24 at 2015 Given 01/07/2024 10:12 PM NEUROLOGICAL PHYSIOTHERAPIST 3 mg metroNIDAZOLE tablet 500 mg (FlagyL) 500 mg, oral, 3 times daily, First dose on Thu01/05/24 at 1130, Drug Monitoring Program: Pharmacist to adjust medication dosing based on indication and drug clearance factors., Indications: Respiratory tract infection, community acquiredIndications:Respirat ory tract infection, community acquired Given 01/06/2024 9:14 PM NEUROLOGICAL PHYSIOTHERAPIST 500 mg Given 01/06/2024 1:53 PM NEUROLOGICAL PHYSIOTHERAPIST 500 mg Given 01/06/2024 8:37 AM NEUROLOGICAL PHYSIOTHERAPIST 500 mg midodrine tablet 10 mg (ProAmatine) 10 mg, oral, Daily PRN, SBP below 90 during dialysis, Starting on Thu01/02/24 at 1625 Given 01/03/2024 9:24 AM NEUROLOGICAL PHYSIOTHERAPIST 10 mg qmfhwykhacfp-jnnd-TY-Ca-min erals 400 mcg (folic acid) tablet 1 tablet 1 tablet, oral, Daily, First dose on Thu01/11/24 at 0900 Given 01/11/2024 8:06 AM NEUROLOGICAL PHYSIOTHERAPIST 1 tablet NaCl 0.9% infusion 75 mL/hr, intravenous, Continuous, Starting on Thu01/01/24 at 2145, For 24 hours Rate/Dose Verify 01/02/2024 10:14 AM NEUROLOGICAL PHYSIOTHERAPIST 75 mL/hr 75 mL/hr Rate/Dose Verify 01/02/2024 8:01 AM NEUROLOGICAL PHYSIOTHERAPIST 75 mL/hr 75 mL/h r Rate/Dose Verify 01/02/2024 7:52 AM NEUROLOGICAL PHYSIOTHERAPIST 75 mL/hr 75 mL/h r oxyCODONE IR tablet 10 mg (Roxicodone) 10 mg, oral, Every 4 hours PRN, severe pain or score 7-10 of 10, Starting on Thu01/01/24 at 2119 Given 01/04/2024 11:25 PM NEUROLOGICAL PHYSIOTHERAPIST 10 mg oxyCODONE IR tablet 5 mg (Roxicodone) 5 mg, oral, Every 4 hours PRN, moderate pain or score 4-6 of 10, Starting on Thu01/01/24 at 2119 Given 01/09/2024 9:10 PM NEUROLOGICAL PHYSIOTHERAPIST 5 mg Given 01/08/2024 9:45 PM NEUROLOGICAL PHYSIOTHERAPIST 5 mg Given 01/08/2024 10:04 AM NEUROLOGICAL PHYSIOTHERAPIST 5 mg perflutren lipid microspheres injection (Definity) intravenous, Once in imaging, contrast, Starting on 01/04/24 at 1032, For 1 dose, Intraprocedure - Diagnostic, See protocol. Given 01/04/2024 10:15 AM NEUROLOGICAL PHYSIOTHERAPIST 2 mL potassium chloride ER tablet 40 [...] or split tablet. Given 01/03/2024 8:32 AM NEUROLOGICAL PHYSIOTHERAPIST 40 mEq potassium chloride ER tablet 40 mEq 40 mEq, oral, Once, On 01/03/24 at 1600, For 1 dose, Swallow whole. Do NOT crush, chew, or split tablet. Given 01/03/2024 9:11 PM NEUROLOGICAL PHYSIOTHERAPIST 40 mEq potassium chloride ER tablet 40 mEq 40 mEq, oral, Once, On Thu01/06/24 at 0645, For 1 dose, Swallow whole. Do NOT crush, chew, or split tablet. Given 01/06/2024 6:33 AM NEUROLOGICAL PHYSIOTHERAPIST 40 mEq potassium chloride ER tablet 40 mEq 40 mEq, oral, 2 times daily with meals, First dose on Beata 01/07/24 at 0800, For 2 doses, Swallow whole. Do NOT crush, chew, or split tablet. Given 01/07/2024 4:54 PM NEUROLOGICAL PHYSIOTHERAPIST 40 mEq Given 01/07/2024 9:33 AM NEUROLOGICAL PHYSIOTHERAPIST 40 mEq potassium chloride IVPB 10 mEq 10 mEq, intravenous, at 100 mL/hr, Administer over 60 Minutes, Every 1 hour, First dose on Thu01/01/24 at 2200, For 4 doses, For K<3 mEq/L - give total of 40 mEq, Monitor the following for replacement: Potassium, Replace Potassium per: Standard Schedule New Bag 01/02/2024 1:21 AM NEUROLOGICAL PHYSIOTHERAPIST 10 mEq 100 mL/hr New Bag 01/02/2024 12:16 AM NEUROLOGICAL PHYSIOTHERAPIST 10 mEq 100 mL/hr New Bag 01/01/2024 11:22 PM NEUROLOGICAL PHYSIOTHERAPIST 10 mEq 100 mL/hr potassium chloride IVPB 10 mEq 10 mEq, intravenous, at 100 mL/hr, Administer over 60 Minutes, Every 1 hour, First dose on [facility] 01/02/24 at 0600, For 4 doses, Peripheral Line: 10 mEq per bag over 1 hour each. New Bag 01/02/2024 9:00 AM NEUROLOGICAL PHYSIOTHERAPIST 10 mEq 100 mL/hr New Bag 01/02/2024 7:56 AM NEUROLOGICAL PHYSIOTHERAPIST 10 mEq 100 mL/hr New Bag 01/02/2024 6:19 AM NEUROLOGICAL PHYSIOTHERAPIST 10 mEq 100 mL/hr potassium chloride IVPB 10 mEq 10 mEq, intravenous, at 100 mL/hr, Administer over 60 Minutes, Every 1 hour, First dose (after last reorder) on Thu01/03/24 at 0915, For 4 doses, Peripheral Line: 10 mEq per bag over 1 hour each. New Bag 01/03/2024 9:06 AM NEUROLOGICAL PHYSIOTHERAPIST 10 mEq 1 00 mL/hr potassium phosphate in NaCl 0.9% IVPB 15 mmol 15 mmol, intravenous, at 114 mL/hr, Administer over 2.2 Hours, Once, On Thu01/08/24 at 0815, For 1 dose, Peripheral Line: Administrater at 6.8 mmoL phosphate/hr New Bag 01/08/2024 10:04 AM NEUROLOGICAL PHYSIOTHERAPIST 15 mmol 114 mL/hr prochlorperazine injection 5 mg (Compazine) 5 mg, intravenous, Every 6 hours PRN, vomiting, nausea, Starting on Thu01/01/24 at 2119 Given 01/04/2024 7:59 AM NEUROLOGICAL PHYSIOTHERAPIST 5 mg Given 01/03/2024 9:14 PM NEUROLOGICAL PHYSIOTHERAPIST 5 mg sodium bicarbonate injection 50 mEq 50 mEq, intravenous, Once, On Thu01/02/24 at 1000, For 1 dose Given 01/02/2024 12:04 PM NEUROLOGICAL PHYSIOTHERAPIST 50 mEq sodium bicarbonate tablet 1,300 mg 1,300 mg, oral, 3 times daily, First dose (after last modification) on Thu01/02/24 at 1400 Given 01/02/2024 2:08 PM NEUROLOGICAL PHYSIOTHERAPIST 1,300 mg sodium bicarbonate tablet 650 mg 650 mg, oral, 2 times daily, First dose on Thu01/01/24 at 2200 Given 01/02/2024 7:56 AM NEUROLOGICAL PHYSIOTHERAPIST 650 mg Given 01/01/2024 10:19 PM NEUROLOGICAL PHYSIOTHERAPIST 650 mg sodium chloride 0.9 % flush 1-250 mL 1-250 mL, intravenous, As needed, line care, For priming and rinse back post dialysis, Starting on Thu01/04/24 at 1440, Dialysis, Dialysis order only. Given 01/04/2024 5:46 PM NEUROLOGICAL PHYSIOTHERAPIST 200 mL Given 01/04/2024 2:28 PM NEUROLOGICAL PHYSIOTHERAPIST 200 mL sodium chloride 0.9 % injection 10 mL 10 mL, intravenous, As needed, line care, Starting on Thu01/04/24 at 1032, Prior to and following infusion and between multiple consecutive infusions: sodium chloride 0.9 % injection Given 01/04/2024 10:20 AM NEUROLOGICAL PHYSIOTHERAPIST 10 mL sodium chloride 0.9 % injection 3 mL 3 mL, intravenous, As needed, line care, Starting on Thu01/01/24 at 2118, Prior to and following infusion and between multiple consecutive infusions: sodium chloride 0.9 % injection Given 01/09/2024 9:33 PM NEUROLOGICAL PHYSIOTHERAPIST 3 mL sodium chloride 0.9 % injection 3 mL 3 mL, intravenous, Every 12 hours scheduled, First dose on Thu01/02/24 at 0900, Peripheral Intravenous Catheter and Rapid Infusion Catheter, when no infusion to maintain patency Given 01/10/2024 9:26 PM NEUROLOGICAL PHYSIOTHERAPIST 3 mL Given 01/10/2024 9:19 AM NEUROLOGICAL PHYSIOTHERAPIST 3 mL Given 01/09/2024 9:37 PM NEUROLOGICAL PHYSIOTHERAPIST 3 mL sodium chloride 0.9 % injection 5 mL 5 mL, miscellaneous, Every 12 hours scheduled, First dose on Thu01/05/24 at 2100, For 6 doses, Alteplase dose is instilled followed by 0.9% NaCl flush, then administer dornase dose followed by 0.9% NaCl flush. Clamp chest tube for 1 hour then unclamped and drained for 2 hours. Given 01/08/2024 8:34 AM NEUROLOGICAL PHYSIOTHERAPIST 5 mL Given 01/07/2024 9:00 PM NEUROLOGICAL PHYSIOTHERAPIST 5 mL Given 01/07/2024 9:34 AM NEUROLOGICAL PHYSIOTHERAPIST 5 mL sodium chloride 0.9 % injection 5 mL 5 mL, miscellaneous, Every 12 hours scheduled, First dose on Thu01/05/24 at 2100, For 6 doses, Alteplase dose is instilled followed by 0.9% NaCl flush, then administer dornase dose followed by 0.9% NaCl flush. Clamp chest tube for 1 hour then unclamped and drained for 2 hours. Given 01/08/2024 8:45 AM NEUROLOGICAL PHYSIOTHERAPIST 5 mL Given 01/07/2024 9:38 PM NEUROLOGICAL PHYSIOTHERAPIST 5 mL Given 01/07/2024 9:36 PM NEUROLOGICAL PHYSIOTHERAPIST 5 mL documented in this encounter Active and Recently Administered Medications Times are shown in NEUROLOGICAL PHYSIOTHERAPIST. Scheduled Medication Order 01/09/2024 01/10/2024 01/11/2024 ampicillin-sulbactam 3 g in NaCl 0.9% IVPB (Unasyn) (CANCELED) 3 g, intravenous, at 400 mL/hr, Administer over 15 Minutes, Every 12 hours, First dose on [facility] 01/07/24 at 0800, Mini-Bag Plus bag, Drug Monitoring Program: Pharmacist to adjust medication dosing based on indication and drug clearance factors., Indications: Respiratory tract infection, community acquired 736 (New Bag - Provider: Beck Huff, R.N.) ampicillin-sulbactam 3 g in NaCl 0.9% IVPB (Unasyn) 3 g, intravenous, at 400 mL/hr, Administer over 15 Minutes, Every 12 hours scheduled, First dose (after last modification) on [facility] 01/09/24 at 2100, Mini-Bag Plus bag, Drug Monitoring Program: Pharmacist to adjust medication dosing based on indication and drug clearance factors., Indications: Respiratory tract infection, community acquired 2053 (New Bag - Provider: Elenita Montiel R.N.) 0920 (New Bag - Provider: Beck Huff, R.NEliel)2126 (New Bag - Provider: Margy Waters R.N.) 0806 (New Bag - Provider: Salina Yu R.N.) gabapentin capsule 100 mg (Neurontin) 100 mg, oral, 3 times daily, First dose on Thu01/10/24 at 1045 1047 (Given - Provider: Beck Huff, R.N.)212 (Given - Provider: Margy Waters R.N.) 0806 (Given - Provider: Salina Yu R.N.)1400 (Due) heparin (porcine) injection 5,000 Units 5,000 Units, subcutaneous, Every 8 hours scheduled, First dose (after last modification) on Thu01/05/24 at 2200 0559 (Given - Provider: Olegario Oconnor RElielNEliel)1449 (Given - Provider: Beck Huff, R.N.)2101 (Given - Provider: Elenita Montiel RElielNEliel) 0535 (Given - Provider: Elenita Montiel RElielNEliel)1551 (Given - Provider: Beck Huff, R.NEliel)2124 (Given - Provider: Margy Waters R.N.) 0641 (Given - Provider: Margy Waters R.N.)1400 (Due) magnesium sulfate in D5W IVPB 1 g (COMPLETED) 1 g, intravenous, at 100 mL/hr, Administer over 60 Minutes, Once, On Thu01/10/24 at 0830, For 1 dose 1042 (New Bag - Provider: Beck Huff, R.NEliel - Comment: lost IV access) gngqzojqwwji-jone-IR-C a-minerals 400 mcg (folic acid) tablet 1 tablet 1 tablet, oral, Daily, First dose on Thu01/11/24 at 0900 0806 (Given - Provider: Salina Yu RElielNEliel) sodium chloride 0.9 % injection 3 mL 3 mL, intravenous, Every 12 hours scheduled, First dose on Thu01/02/24 at 0900, Peripheral Intravenous Catheter and Rapid Infusion Catheter, when no infusion to maintain patency 0900 (Given - Provider: Lucero HuffSTessa., R.N.)2136 (Given - Provider: Elenita Montiel RElielN.) 918 (Given - Provider: Beck Huff, R.N.)2125 (Given - Provider: Margy Waters R.N.) 09 (Canceled Entry - Provider: Salina Yu R.N.) PRN Medication Order 01/09/2024 01/10/2024 01/11/2024 acetaminophen tablet 500 mg (TylenoL) 500 mg, oral, Every 6 hours PRN, mild pain or score 1-3 of 10, headaches, fever, Starting on Thu01/01/24 at 2118, Not to exceed 4 grams of acetaminophen in 24 hours all sources 0806 (Given - Provid er: Salina Yu RTessa.) barium 40 % (w/v), 30% (w/w) paste 15 mL (Varibar Pudding) (COMPLETED) 15 mL, oral, Once in imaging, contrast, For video swallow, Starting on Thu01/11/24 at 1340, For 1 dose, Imaging Protocol Orders 1245 (Given - Provid er: Constance Gonzales, R.T.(R)) barium 81 % (w/w) oral powder for suspension 24 g (Varibar Thin Liquid) (COMPLETED) 24 g (60 mL), oral, Once in imaging, contrast, Starting on Thu01/11/24 at 1340, For 1 dose, Imaging Protocol Orders 1245 (Given - Provid er: Constance Gonzales, R.T.(R)) bisacodyL suppository 10 mg (Dulcolax) 10 mg, rectal, Daily PRN, constipation, Starting on Thu01/01/24 at 2118, Ordered sequence of administration: polyethylene glycol, then bisacodyl until BM achieved. ipratropium-albuteroL 0.5-2.5 mg/3 mL nebulizer solution 3 mL (DuoNeb) 3 mL, nebulization, Every 6 hours PRN, wheezing, shortness of breath, Starting on Thu01/01/24 at 2118 melatonin tablet 3 mg 3 mg, oral, Bedtime PRN, sleep, Starting on Thu01/04/24 at 2015 midodrine tablet 10 mg (ProAmatine) 10 mg, oral, Daily PRN, SBP below 90 during dialysis, Starting on Thu01/02/24 at 1625 naloxone injection 0.1 mg 0.1 [...] of 10, Starting on Thu01/01/24 at 2118 2109 (See Alternative - Provider: Elenita Montiel R.N.) oxyCODONE IR tablet 5 mg (Roxicodone)(Linked Group 1) 5 mg, oral, Every 4 hours PRN, moderate pain or score 4-6 of 10, Starting on Thu01/01/24 at 2118 2109 (Given - Provider: Elenita Montiel R.N.) polyethylene glycol powder packet 17 g (Miralax) 17 g, oral, Daily PRN, constipation, Starting on Thu01/01/24 at 2118, Ordered sequence of administration: polyethylene glycol, then bisacodyl until BM achieved. Avoid mixing with starch-based thickened liquids. prochlorperazine injection 5 mg (Compazine) 5 mg, intravenous, Every 6 hours PRN, vomiting, nausea, Starting on Thu01/01/24 at 2118 sodium chloride 0.9 % injection 10 mL 10 mL, intravenous, As needed, line care, Starting on Thu01/01/24 at 2118, Peripheral Intravenous Catheter and Rapid Infusion Catheter, prior to blood sampling, post blood transfusion or post blood sampling sodium chloride 0.9 % injection 10 mL 10 mL, intravenous, As needed, line care, Starting on Thu01/04/24 at 1032, Prior to and following infusion and between multiple consecutive infusions: sodium chloride 0.9 % injection sodium chloride 0.9 % injection 3 mL 3 mL, intravenous, As needed, line care, Starting on Thu01/01/24 at 2117, Prior to and following infusion and between multiple consecutive infusions: sodium chloride 0.9 % injection 2132 (Given - Provider: Elenita Montiel R.N.) Linked Groups Order Group 1: oxyCODONE IR [...] Thu01/01/24 at 2118 documented in this encounter Care Teams Morning Show Producer Relationship Specialty Start Date End Date Elsewhere, Pcp PCP - General Internal Medicine 01/04/24 documented as of this encounter
--- OUTSIDE RECORDS SUMMARY | 2024-01-22 10:52 | XMS_ITS | Encounter Summary ---
Author Organization [facility] Address [address] [place] [address] Care Team Providers Care Embedded Firmware Engineer Name Role Phone Elsewhere, Pcp Primary Care Provider Unavailabl e Encounter Details Date Type Department Care Team (Late st Contact Info) Description 01/07/2024 Clinical Communication Department of Infectious Diseases in [address] [phone] Stacy Esposito R.N. Social History Tobacco Use Types Packs/Day Years Used Date Smoking Tobacco: Never Assessed Dental Answer Date Recorded Dental: Regular Dentist Unknown 12/25/19 23 Sex and Gender Information Value Date Recorded Sex Assigned at Not on file Legal Sex Male 3:31 PM CERTIFIED PERSONAL TRAINER Gender Identity Not on file Sexual Orientation Not on file documented as of this encounter Plan of Treatment Upcoming Encounters Date Type Department Care Team (Latest Contact Info) Description 01/25/2024 1:30 PM CERTIFIED PERSONAL TRAINER Appointment Department of Laboratory Medicine in [address] [phone] Sarah Perry M.D. [address] [place] [phone] 01/25/2024 2:30 PM CERTIFIED PERSONAL TRAINER Office Visit Department of Infectious Diseases in [address] [phone] Clara Jones P.A.-C. [address] [place] [phone] 01/25/2024 3:00 PM CERTIFIED PERSONAL TRAINER Comprehensive Visit Department of Pulmonary Medicine in [address] [phone] Fidencio Oliva M.D. [address] [place] [phone] Discharge Disposition: Home or Self Care documented as of this encounter Visit Diagnoses Diagnosis Pneumonia- Primary documented in this encounter Care Teams Embedded Firmware Engineer Relationship Specialty Start Date End Date Elsewhere, Pcp PCP - General Internal Medicine 01/04/24 documented as of this encounter
--- OUTSIDE RECORDS SUMMARY | 2024-01-22 10:52 | XMS_ITS | Clinical Summary ---
Author Organization [employer] [facility] Address [place], [place] [address] Care Team Providers Care Rail Washer Name Role Phone Tate Bear DO Primary [...] daily. 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 twice daily to 3 times daily as needed diarrhea 60 Tablet 3 06/01/2023 Active montelukast (SINGULAIR) 10 mg tabletIndications:Bookkeeping Clerks Supervisor nate diarrhea Take 1 Tablet (10 mg) by mouth at bedtime. 30 Tablet 3 06/01/2023 Active furosemide (LASIX) 20 mg tabletIndications:Stag e 3b chronic kidney disease (HC),Edema, unspecified type Take 3 tablets by mouth once daily 270 Tablet 3 09/30/2023 Active atorvastatin (LIPITOR) 10 mg tabletIndications:Othe r hyperlipidemia Take 1 tablet by mouth once daily 90 Tablet 1 11/02/2023 Active losartan-hydrochloroth iazide (HYZAAR) 100-25 mg tabletIndications:Esse ntial hypertension Take 1 tablet by mouth once daily 90 Tablet 12/16/2023 Active amoxicillin-clavulanat e (AUGMENTIN) 875-125 mg tabletIndications:Melina couch (HC) Take 1 Tablet by mouth two times daily with meals. 01/18/2024 Active Active Problems Problem Noted Date Diagnosed [...] Encounters Date Type Department Care Team Description 01/18/2024 11:40 AM LIVESTOCK RANCHER Phone Office Visit [address] [phone] Tate Bear, Hospital F/U (The patient reports he feels a lot better, getting around a lot better. The patient is not familiar, does not know, what medications he takes. ) 01/18/2024 Travel 01/12/[address] [phone] Tate Bear, Questions 12/14/[address] [phone] Tate Bear, Refill Request (Losartan-hydrochlor othiazide) 10/29/[address] [phone] Tate Bear, Refill Request (Atorvastatin) from Last 3 Months Immunizations Name Administration Dates Next Due COVID-19 vaccine (Sw[employer] 30mcg/0.3mL) PF, MDV 10/23/2020,09/10/2020 Influenza RIV4 (Age 18+ Years) PRESERV [...] Code Status Discussion: Reviewed Preferences Care Teams Rail Washer Relationship Specialty [place] [id number] [place] [address] PCP - General Family Practice 07/23/22
--- OUTSIDE RECORDS SUMMARY | 2024-01-22 10:52 | XMS_ITS | Encounter Summary ---
Author Organization [facility] Address [address] [place] [address] Care Team Providers Care Renewable Energy Consultant Name Role Phone Elsewhere, Pcp Primary Care Provider Unavailabl e Reason for Referral * MRI/CAT/PET Scan (Routine) - Authorized Specialty Diagnoses / Procedures Referred By Contac t Referred To Contact Radiology Diagnoses Pneumonia Procedures CT Chest with IV Contrast Sarah Perry M.D. [address] [place] [phone] Phone: tel: fax: [facility] Referral ID Status Reason Start Date Expiration Date V isits Requested Visits Authorized [id number] Authorized 01/08/2024 01/07/2025 1 1 SMISSION CALIBRATION ENGINEER * Outpatient (Routine) - Authorized Specialty Diagnoses / Procedures Referred By Contjosias t Referred To Contact Infectious Diseases Sarah Perry M.D. [address] [place] [phone] Phone: tel: fax: [facility] Referral ID Status Reason Start Date Expiration Date V isits Requested Visits Authorized [id number] Authorized 01/08/2024 07/09/2025 1 1 Scheduling Instructions Please schedule 30 min post hospital follow up with repeat chest CT prior. Thank you SMISSION CALIBRATION ENGINEER Encounter Details Date Type Department Care Team (Late st Contact Info) Description 01/08/2024 Orders Only Department of Infectious Diseases in [place], [place] [address] [place] [phone] Letty Sneed R.N. [address] [place] [phone] Pneumonia (Primary Dx) Social History Tobacco Use Types Packs/Day Years Used Date Smoking Tobacco: Never Assessed [facility] Utilities Answer Date Recorded In the [...] your living situation today? I have a [facility] place to live 01/10/2024 Sex and Gender Information Value Date Recorded Sex Assigned at Not on file Legal Sex Male 3:31 PM TRANSMISSION CALIBRATION ENGINEER Gender Identity Not on file Sexual Orientation Not on file documented as of this encounter Plan of Treatment Upcoming Encounters Date Type Department Care Team (Latest Contact Info) Description 01/25/2024 1:30 PM TRANSMISSION CALIBRATION ENGINEER Appointment Department of Laboratory Medicine in [address] [phone] Sarah Perry M.D. [address] [place] [phone] 01/25/2024 2:30 PM TRANSMISSION CALIBRATION ENGINEER Office Visit Department of Infectious Diseases in [address] [phone] Clara Jones P.A.-C. [address] [place] [phone] 01/25/2024 3:00 PM TRANSMISSION CALIBRATION ENGINEER Comprehensive Visit Department of Pulmonary Medicine in [address] [phone] Fidencio Oliva M.D. [address] [place] [phone] Discharge Disposition: Home or Self Care Scheduled Orders Name Type Priority Associated Diagnoses Order Schedule CT Chest with IV Contrast Imaging RAD - Routine (most inpatients and all outpatients) Pneumonia Expected: 01/25/2024, Expires: 04/09/2025 CBC with Differential, Blood Lab Routine Pneumonia Expected: 01/25/2024, Expires: 04/09/2025 Comprehensive Metabolic Panel Lab Routine Pneumonia Expected: 01/25/2024, Expires: 04/09/2025 Scheduled Referrals Name Type Priority Associated Diagnoses Order Schedule Infectious Diseases office visit (clinic) Outpatient Referral Routine Expected: 01/25/2024, Expires: 04/09/2025 documented as of this encounter Visit Diagnoses Diagnosis Pneumonia- Primary documented in this encounter Care Teams Renewable Energy Consultant Relationship Specialty Start Date End Date Elsewhere, Pcp PCP - General Internal Medicine 01/04/24 documented as of this encounter
--- OUTSIDE RECORDS SUMMARY | 2024-01-22 10:52 | XMS_ITS | Encounter Summary ---
Author Organization [facility] Address [address] [place] [address] Care Team Providers Care Bevel Mill Operator Name Role Phone Elsewhere, Pcp Primary Care Provider Unavailabl e Encounter Details Date Type Department Care Team (Late st Contact Info) Description 01/08/2024 Clinical Communication Department of Infectious Diseases in [address] [phone] Letty Sneed R.N. [address] [place] [phone] Social History Tobacco Use Types Packs/Day Years Used Date Smoking Tobacco: Never Assessed Dental Answer Date Recorded Dental: Regular Dentist Unknown 12/25/19 23 Sex and Gender Information Value Date Recorded Sex Assigned at Not on file Legal Sex Male 3:31 PM ADMINISTRATIVE SUPPORT MANAGER Gender Identity Not on file Sexual Orientation Not on file documented as of this encounter Plan of Treatment Upcoming Encounters Date Type Department Care Team (Latest Contact Info) Description 01/25/2024 1:30 PM ADMINISTRATIVE SUPPORT MANAGER Appointment Department of Laboratory Medicine in [address] [phone] Sarah Perry M.D. [address] [place] [phone] 01/25/2024 2:30 PM ADMINISTRATIVE SUPPORT MANAGER Office Visit Department of Infectious Diseases in [address] [phone] Clara Jones P.A.-C. [address] [place] [phone] 01/25/2024 3:00 PM ADMINISTRATIVE SUPPORT MANAGER Comprehensive Visit Department of Pulmonary Medicine in [address] [phone] Fidencio Oliva M.D. [address] [place] [phone] Discharge Disposition: Home or Self Care documented as of this encounter Visit Diagnoses Not on filedocumented in this encounter Care Teams Bevel Mill Operator Relationship Specialty Start Date End Date Elsewhere, Pcp PCP - General Internal Medicine 01/04/24 documented as of this encounter
--- OUTSIDE RECORDS SUMMARY | 2024-01-22 10:52 | XMS_ITS | Encounter Summary ---
Author Organization [facility] Address [address] [place] [address] Care Team Providers Care Inspector Precision Assembly Name Role Phone Elsewhere, Pcp Primary Care [...] on file Legal Sex Male 3:31 PM PROFILE MILL OPERATOR TAPE CONTROL Gender Identity Not on file Sexual Orientation Not on file documented as of this encounter Plan of Treatment Upcoming Encounters Date Type Department Care Team (Latest Contact Info) Description 01/25/2024 1:30 PM PROFILE MILL OPERATOR TAPE CONTROL Appointment Department of Laboratory Medicine in [address] [phone] Sarah Perry M.D. [address] [place] [phone] 01/25/2024 2:30 PM PROFILE MILL OPERATOR TAPE CONTROL Office Visit Department of Infectious Diseases in [address] [phone] Clara Jones P.A.-C. [address] [place] [phone] 01/25/2024 3:00 PM PROFILE MILL OPERATOR TAPE CONTROL Comprehensive Visit Department of Pulmonary Medicine in [place], [place] [address] [place] [phone] Fidencio Oliva M.D. [address] [place] [phone] Discharge Disposition: Home or Self Care documented as of this encounter Visit Diagnoses Not on filedocumented in this encounter Care Teams Inspector Precision Assembly Relationship Specialty Start Date End Date Elsewhere, Pcp PCP - General Internal Medicine 01/04/24 documented as of this encounter
--- OUTSIDE RECORDS SUMMARY | 2024-01-22 10:52 | XMS_ITS | Encounter Summary ---
Author Organization [facility] Address [address] [place] [address] Care Team Providers Care Retail Advertising Sales Manager Name Role Phone Elsewhere, Pcp Primary Care Provider Unavailabl e Encounter Details Date Type Department Care Team (Late st Contact Info) Description 01/04/2024 7:40 PM MANAGER PHP Ancillary Procedure Department of Nursing Social History Tobacco Use Types Packs/Day Years Used Date Smoking Tobacco: Never Assessed Dental Answer Date Recorded Dental: Regular Dentist Unknown 12/25/19 23 Sex and Gender Information Value Date Recorded Sex Assigned at Not on file Legal Sex Male 3:31 PM MANAGER PHP Gender Identity Not on file Sexual Orientation Not on file documented as of this encounter Plan of Treatment Upcoming Encounters Date Type Department Care Team (Latest Contact Info) Description 01/25/2024 1:30 PM MANAGER PHP Appointment Department of Laboratory Medicine in [address] [phone] Sarah Perry M.D. [address] [place] [phone] 01/25/2024 2:30 PM MANAGER PHP Office Visit Department of Infectious Diseases in [address] [phone] Clara Jones P.A.-C. [address] [place] [phone] 01/25/2024 3:00 PM MANAGER PHP Comprehensive Visit Department of Pulmonary Medicine in [place], [place] [address] [place] [phone] Fidencio Oliva M.D. [address] [place] [phone] Discharge Disposition: Home or Self Care documented as of this encounter Procedures Procedure Name Priority Date/Time Associated Diagnosis Comments NURSING IMAGE EXAM Routine 01/04/2024 7: 40 PM MANAGER PHP documented in this encounter Results * Ankle, Right-Nursing Image Exam (01/04/2024 7:40 PM MANAGER PHP) 01/04/2024 7:39 PM MANAGER PHP Narrative [facility] - 01/04/2024 7:42 PM MANAGER PHP This order has been created and auto-finalized to support the import of images acquired without order. The clinical documentation to support these images can be found on the encounter that produced images. us Provider Not In System IMG NON RAD IMAGING PROCE DURES Final Result [facility] NA documented in this encounter Visit Diagnoses Not on filedocumented in this encounter Care Teams Retail Advertising Sales Manager Relationship Specialty Start Date End Date Elsewhere, Pcp PCP - General Internal Medicine 01/04/24 documented as of this encounter
--- NOTE | 2024-01-22 11:00 | CRLHL7_ITS ---
For Patients: As a result of the Century Cures Act, medical imaging exams and procedure reports are released immediately into your electronic medical record. You may view this report before your referring provider. If you have questions, please contact your health care provider. INDICATION: Follow-up consolidation TECHNIQUE: CT chest with 75 mL Isovue 370 COMPARISON: CT 01/01/2024 FINDINGS: Lungs and pleura: Trace left effusion. Small loculated right-sided effusion. Similar masslike consolidation in the lower lobe appearing slightly spiculated along the medial right lower lobe see series 2, image 75 this is not significantly changed. Probable granuloma right upper lobe Heart and vasculature: Heart size is normal. Thoracic aorta and pulmonary artery are normal in caliber. Lymph nodes/mediastinum: No mediastinal, hilar, or axillary adenopathy. Chest wall: No masses. Upper abdomen: Probable cyst in the kidneys Bones: Unremarkable for age. IMPRESSION: 1. Similar appearance of small loculated right effusion. Right basilar patchy consolidation along the medial aspect of the right base this appears more spiculated. Findings could represent infection. Malignancy can not be completely excluded either continued follow-up/pulmonary consultation/PET-CT could be considered. Please note that all CT scans at this facility use dose modulation, iterative reconstruction, and/or weight-based dosing when appropriate to reduce radiation dose to as low as reasonably achievable. Dictated by Gris Graff MD @ 01/24/2024 9:47:11 PM (Electronically Signed)
== END 2024-01-22 10:47 | disposition home or self-care (01) ==
LOC: CT 10:47
PROVIDERS: Visit Provider Internal Medicine Infectious Disease
DX: J18.9 Pneumonia, unspecified organism (principal); J90 Pleural effusion, not elsewhere classified
CPT/HCPCS: 71260; Q9967

== ENCOUNTER 2024-01-26 10:48 | Outpatient (CLI) | payer MEDICARE, SELFPAY ==
--- OUTSIDE RECORDS SUMMARY | 2024-01-26 10:53 | XMS_ITS | Clinical Summary ---
Author Organization [facility] Address [address] [place] [address] Care Team Providers Care Computer Systems Information Director Name Role Phone Elsewhere, Pcp Primary Care Provider Unavailabl e Source Comments Patient records contain information from all sites at [facility]. For routine questions regarding patient records, call [phone] during business hours, M-F 8:00 AM - 5:00 PM Central Time. Record requests for emergency care only can be directed to [phone] at any time.[facility] Allergies No known active allergies Medications ferrous [...] Med Name: Prostate Complete Zinc, Selenium, Saw [place], Lycopene, Turmeric, Resveratrol, Pomegranate Active gabapentin (Neurontin) [...] Active amoxicillin-pot clavulanate (Augmentin) 500-125 mg per tabletIndicatio ns:Pneumonia Take 1 tablet (500 mg total) by mouth 2 (two) times a day for 14 days. 28 tablet 4 024 Active omeprazole (PriLOSEC) [address] capsule Take 20 mg by mouth daily as needed. 3 Discontin ued(Thera py completed ) montelukast (Singulair) [...] Taking at Discharge ) amoxicillin-pot clavulanate (Augmentin) 500-125 mg per tablet Take 1 tablet (500 mg total) by mouth 2 (two) times a day for 15 days. 30 tablet 4 Discontin ued(Reord er) Active Problems Problem Noted Date Diagnosed Date Failure Renal Acute (Acute Kidney Injury) 2023 Pneumonia 01/01/2024 Mass Lung 01/01/2024 Hyponatremia 01/01/2024 Hypokalemia 01/01/2024 Encounters Date Type Department Care Team Description 01/25/2024 Clinical Communication Department of Infectious Diseases in [address] [phone] Sarah Perry M.D. Order Request 01/22/2024 Clinical Communication Department of Infectious Diseases in [address] [address] Letty Sneed R.N. Continuing Care Plan (CT of chest with contrast) 01/15/2024 Clinical Communication Department of Infectious Diseases in [address] [phone] Ceci Cates R.N. Appointment (Lab visit) 01/13/2024 Clinical Communication Department of Infectious Diseases in [address] [address] Sarah Perry M.D. 01/08/2024 Clinical Communication Department of Infectious Diseases in [address] [address] Letty Sneed R.N. 01/08/2024 Orders Only Department of Infectious Diseases in [address] [address] Letty Sneed, R.N. Pneumonia (Primary Dx) 01/07/2024 Clinical Communication Department of Infectious Diseases in [address] [phone] Stacy Esposito R.N. 01/04/2024 7:40 PM ELECTRONICS DEPARTMENT MANAGER Ancillary Procedure Department of Nursing 01/02/2024 3:30 PM ELECTRONICS DEPARTMENT MANAGER Ancillary Procedure Department of General Surgery 01/01/2024 8:59 PM ELECTRONICS DEPARTMENT MANAGER - 01/11/2024 4:43 PM ELECTRONICS DEPARTMENT MANAGER Hospital Encounter [facility], [facility], Fourth Floor [address] [place] [address] Frank Mccall M.D. Octavio Morton M.B., Ch.B. Jeremías Fernandez M.D. Chapito Velazquez D.O. Khan, Saad S, M.D. Empyema Pleural [...] Smokeless Tobacco: Never Tobacco Cessation:Counseling Given: No [facility] Utilities Answer Date Recorded In the past 12 months has [facility] [employer], gas, oil, or water [email or web address] threatened to shut off services in your [...] your living situation today? I have a [facility] place to live 01/10/2024 Sex and Gender Information Value Date Recorded Sex Assigned at Not on file Legal Sex Male 3:31 PM ELECTRONICS DEPARTMENT MANAGER Gender Identity Not on file Sexual Orientation Not on file Last Filed Vital Signs Vital Sign Reading Time Taken Comments Blood Pressure 111/62 01/11/2024 2:37 PM ELECTRONICS DEPARTMENT MANAGER Pulse 122 01/11/2024 2:37 PM ELECTRONICS DEPARTMENT MANAGER Temperature 36.5 C (97.7 F) 01/11/2024 2:37 PM ELECTRONICS DEPARTMENT MANAGER Respiratory Rate 26 01/11/2024 2:37 PM ELECTRONICS DEPARTMENT MANAGER Oxygen Saturation 97% 01/11/2024 2:37 PM ELECTRONICS DEPARTMENT MANAGER Inhaled Oxygen Concentration - - Weight 39.9 kg (87 lb 15.4 oz) 01/11/2024 2:12 A M ELECTRONICS DEPARTMENT MANAGER Height 170.2 cm (5' 7) 01/01/2024 9:10 PM ELECTRONICS DEPARTMENT MANAGER Body Mass Index 13.78 01/01/2024 9:10 PM ELECTRONICS DEPARTMENT MANAGER Plan of Treatment Health Maintenance Due Date Last Done Comments Zoster Vaccines (1 of 2) 1988 DTaP,Tdap,and Td Vaccines (1 - Tdap) 07/11/2011 07/10/2011 RSV vaccine - (32-36 weeks) or 60+ years (1 - 1-dose 75+ series) 2013 Depression Screening (Annual PHQ-2) 02/16/2023 Fall Risk Screen (Annual) 02/16/2023 COVID-19 Vaccine ( - season) 2023 10/23/2020, 09/10/2020 Influenza Vaccine [...] Procedure Name Priority Date/Time Associated Diagnosis Comments OUTSIDE CT BODY Routine 01/22/2024 11:00 AM ELECTRONICS DEPARTMENT MANAGER FL SWALLOW FUNCTION WITH VIDEO AND SPEECH RAD - Routine (most inpatients and all outpatients) 01/11/2024 1:48 PM ELECTRONICS DEPARTMENT MANAGER TESTING LOCATION Timed 01/11/2024 11:5 1 AM ELECTRONICS DEPARTMENT MANAGER TYPE AND SCREEN Timed 01/11/2024 11:51 AM ELECTRONICS DEPARTMENT MANAGER HEMOGLOBIN, B Timed 01/11/2024 11:51 AM ELECTRONICS DEPARTMENT MANAGER DX CHEST PORTABLE 1 VIEW RAD - Routine (most inpatients and all outpatients) 01/11/2024 6:54 AM ELECTRONICS DEPARTMENT MANAGER PHOSPHORUS (INORGANIC), S Routine 01/11/2024 4:48 AM ELECTRONICS DEPARTMENT MANAGER MAGNESIUM, S Routine 01/11/2024 4:48 AM ELECTRONICS DEPARTMENT MANAGER BASIC METABOLIC PANEL, S/P Routine 01/11/2024 4:48 AM ELECTRONICS DEPARTMENT MANAGER CBC WITH DIFFERENTIAL, B Routine 01/11/2024 4:48 AM ELECTRONICS DEPARTMENT MANAGER HEPATIC FUNCTION PANEL, S Routine 01/11/2024 4:48 AM ELECTRONICS DEPARTMENT MANAGER DX CHEST PORTABLE 1 VIEW RAD - Routine (most inpatients and all outpatients) 01/10/2024 6:50 AM ELECTRONICS DEPARTMENT MANAGER PHOSPHORUS (INORGANIC), S Routine 01/10/2024 6:25 AM ELECTRONICS DEPARTMENT MANAGER MAGNESIUM, S Routine 01/10/2024 6:25 AM ELECTRONICS DEPARTMENT MANAGER BASIC METABOLIC PANEL, S/P Routine 01/10/2024 6:25 AM ELECTRONICS DEPARTMENT MANAGER CBC WITH DIFFERENTIAL, B Routine 01/10/2024 6:25 AM ELECTRONICS DEPARTMENT MANAGER HEPATIC FUNCTION PANEL, S Routine 01/10/2024 6:25 AM ELECTRONICS DEPARTMENT MANAGER DX CHEST PORTABLE 1 VIEW RAD - Routine (most inpatients and all outpatients) 01/09/2024 6:50 AM ELECTRONICS DEPARTMENT MANAGER MORPHOLOGY EVALUATION Routine 01/09/2024 6:42 AM ELECTRONICS DEPARTMENT MANAGER MANUAL DIFFERENTIAL, B Routine 01/09/2024 6:42 AM ELECTRONICS DEPARTMENT MANAGER PHOSPHORUS (INORGANIC), S Routine 01/09/2024 6:42 AM ELECTRONICS DEPARTMENT MANAGER MAGNESIUM, S Routine 01/09/2024 6:42 AM ELECTRONICS DEPARTMENT MANAGER BASIC METABOLIC PANEL, S/P Routine 01/09/2024 6:42 AM ELECTRONICS DEPARTMENT MANAGER CBC WITH DIFFERENTIAL, B Routine 01/09/2024 6:42 AM ELECTRONICS DEPARTMENT MANAGER HEPATIC FUNCTION PANEL, S Routine 01/09/2024 6:42 AM ELECTRONICS DEPARTMENT MANAGER CT CHEST WITHOUT IV CONTRAST RAD - Routine (most inpatients and all outpatients) 01/08/2024 1:11 PM ELECTRONICS DEPARTMENT MANAGER DX CHEST 1 VIEW RAD - Routine (most inpatients and all outpatients) 01/08/2024 7:16 AM ELECTRONICS DEPARTMENT MANAGER MORPHOLOGY EVALUATION Routine 01/08/2024 4:47 AM ELECTRONICS DEPARTMENT MANAGER MANUAL DIFFERENTIAL, B Routine 01/08/2024 4:47 AM ELECTRONICS DEPARTMENT MANAGER PHOSPHORUS (INORGANIC), S Routine 01/08/2024 4:47 AM ELECTRONICS DEPARTMENT MANAGER MAGNESIUM, S Routine 01/08/2024 4:47 AM ELECTRONICS DEPARTMENT MANAGER BASIC METABOLIC PANEL, S/P Routine 01/08/2024 4:47 AM ELECTRONICS DEPARTMENT MANAGER CBC WITH DIFFERENTIAL, B Routine 01/08/2024 4:47 AM ELECTRONICS DEPARTMENT MANAGER HEPATIC FUNCTION PANEL, S Routine 01/08/2024 4:47 AM ELECTRONICS DEPARTMENT MANAGER HEMOGLOBIN, B Timed 01/07/2024 3:50 PM ELECTRONICS DEPARTMENT MANAGER DX CHEST 1 VIEW RAD - Routine (most inpatients and all outpatients) 01/07/2024 7:14 AM ELECTRONICS DEPARTMENT MANAGER MORPHOLOGY EVALUATION Routine 01/07/2024 5:29 AM ELECTRONICS DEPARTMENT MANAGER PHOSPHORUS (INORGANIC), S Routine 01/07/2024 5:29 AM ELECTRONICS DEPARTMENT MANAGER MAGNESIUM, S Routine 01/07/2024 5:29 AM ELECTRONICS DEPARTMENT MANAGER BASIC METABOLIC PANEL, S/P Routine 01/07/2024 5:29 AM ELECTRONICS DEPARTMENT MANAGER CBC WITH DIFFERENTIAL, B Routine 01/07/2024 5:29 AM ELECTRONICS DEPARTMENT MANAGER HEPATIC FUNCTION PANEL, S Routine 01/07/2024 5:29 AM ELECTRONICS DEPARTMENT MANAGER MISCELLANEOUS SENT OUT LAB TEST Routine 01/06/2024 11:36 AM ELECTRONICS DEPARTMENT MANAGER TROPHERYMA WHIPPLEI PCR, B Routine 01/06/2024 11:36 AM ELECTRONICS DEPARTMENT MANAGER HC REF INF DIS DNA/PCR/NGS SEQ Routine 01/06/2024 10:59 AM ELECTRONICS DEPARTMENT MANAGER DX CHEST 1 VIEW RAD - Routine (most inpatients and all outpatients) 01/06/2024 7:19 AM ELECTRONICS DEPARTMENT MANAGER MORPHOLOGY EVALUATION Timed 01/06/2024 5:37 AM ELECTRONICS DEPARTMENT MANAGER MANUAL DIFFERENTIAL, B Timed 01/06/2024 5:37 AM ELECTRONICS DEPARTMENT MANAGER MAGNESIUM, S Timed 01/06/2024 5:37 AM ELECTRONICS DEPARTMENT MANAGER CBC WITH DIFFERENTIAL, B Timed 01/06/2024 5:37 AM ELECTRONICS DEPARTMENT MANAGER RENAL FUNCTION PANEL, S Timed 01/06/2024 5:37 AM ELECTRONICS DEPARTMENT MANAGER ECG STAT 01/06/2024 5:32 AM ELECTRONICS DEPARTMENT MANAGER IR CHEST TUBE PLACEMENT RAD - Routine (most inpatients and all outpatients) 01/05/2024 1:42 PM ELECTRONICS DEPARTMENT MANAGER CYTOLOGY NON-SOIL CONSERVATION AIDE Routine 01/05/2024 12:5 0 PM ELECTRONICS DEPARTMENT MANAGER GLUCOSE, BODY FLUID Timed 01/05/2024 1 2:50 PM ELECTRONICS DEPARTMENT MANAGER TRIGLYCERIDES, BF Timed 01/05/2024 12: 50 PM ELECTRONICS DEPARTMENT MANAGER PROTEIN, TOTAL, BF Timed 01/05/2024 12 :50 PM ELECTRONICS DEPARTMENT MANAGER PH, PLEURAL FLUID Timed 01/05/2024 12: 50 PM ELECTRONICS DEPARTMENT MANAGER LACTATE DEHYDROGENASE (LD), BF Timed 01/05/2024 12:50 PM ELECTRONICS DEPARTMENT MANAGER CELL COUNT AND DIFFERENTIAL, BF Timed 01/05/2024 12:50 PM ELECTRONICS DEPARTMENT MANAGER BACTERIAL CULTURE, ANAEROBIC + SUSC Timed 01/05/2024 12:50 PM ELECTRONICS DEPARTMENT MANAGER GRAM STAIN Timed 01/05/2024 12:50 PM ELECTRONICS DEPARTMENT MANAGER BACTERIAL CULTURE, AEROBIC + SUSC Timed 01/05/2024 12:50 PM ELECTRONICS DEPARTMENT MANAGER MORPHOLOGY EVALUATION Routine 01/05/2024 5:52 AM ELECTRONICS DEPARTMENT MANAGER MANUAL DIFFERENTIAL, B Routine 01/05/2024 5:52 AM ELECTRONICS DEPARTMENT MANAGER BASIC METABOLIC PANEL, S/P Routine 01/05/2024 5:52 AM ELECTRONICS DEPARTMENT MANAGER CBC WITH DIFFERENTIAL, B Routine 01/05/2024 5:52 AM ELECTRONICS DEPARTMENT MANAGER PNEUMONIA PANEL, PCR Routine 01/04/2024 7:45 PM ELECTRONICS DEPARTMENT MANAGER GRAM STAIN Routine 01/04/2024 7:45 PM ELECTRONICS DEPARTMENT MANAGER BACTERIAL CULTURE, AEROBIC + SUSC, RESP Routine 01/04/2024 7:45 PM ELECTRONICS DEPARTMENT MANAGER NASAL SCREEN FOR MRSA BY RAPID PCR Routine 01/04/2024 7:45 PM ELECTRONICS DEPARTMENT MANAGER NURSING IMAGE EXAM Routine 01/04/2024 7: 40 PM ELECTRONICS DEPARTMENT MANAGER (TTE) 2D ECHO DOPPLER COLOR AND CONTRAST Routine 01/04/2024 10:38 AM ELECTRONICS DEPARTMENT MANAGER HC URINALYSIS AUTO WO MICRO Routine 01/04/2024 5:56 AM ELECTRONICS DEPARTMENT MANAGER PROTEIN/CREATININE RATIO, RANDOM, URINE Routine 01/04/2024 5:56 AM ELECTRONICS DEPARTMENT MANAGER URINALYSIS WITH MICROSCOPIC IF INDICATED, U Routine 01/04/2024 5:56 AM ELECTRONICS DEPARTMENT MANAGER SODIUM, RANDOM, U Routine 01/04/2024 5:5 6 AM ELECTRONICS DEPARTMENT MANAGER NT-PRO B-TYPE NATRIURETIC PEPTIDE (BNP), S Routine 01/04/2024 4:56 AM ELECTRONICS DEPARTMENT MANAGER PARATHYROID HORMONE (PTH), S Routine 01/04/2024 4:56 AM ELECTRONICS DEPARTMENT MANAGER IRON AND TOT IRON-BINDING CAPACITY, S/P Routine 01/04/2024 4:56 AM ELECTRONICS DEPARTMENT MANAGER FERRITIN, S Routine 01/04/2024 4:56 AM ELECTRONICS DEPARTMENT MANAGER BASIC METABOLIC PANEL, S/P Routine 01/04/2024 4:56 AM ELECTRONICS DEPARTMENT MANAGER CBC WITH DIFFERENTIAL, B Routine 01/04/2024 4:56 AM ELECTRONICS DEPARTMENT MANAGER CYTOLOGY NON-SOIL CONSERVATION AIDE Timed 01/03/2024 5:09 PM ELECTRONICS DEPARTMENT MANAGER US THORACENTESIS RIGHT WITH IMAGING GUIDANCE RAD - Routine (most inpatients and all outpatients) 01/03/2024 5:04 PM ELECTRONICS DEPARTMENT MANAGER BASIC METABOLIC PANEL, S/P Timed 01/03/2024 1:56 PM ELECTRONICS DEPARTMENT MANAGER HEMODIALYSIS Routine 01/03/2024 11:28 AM ELECTRONICS DEPARTMENT MANAGER BACTERIA / ALIX CULTURE, BLOOD Routine 01/03/2024 10:53 AM ELECTRONICS DEPARTMENT MANAGER LACTATE FOR SEPSIS WITH REFLEX Routine 01/03/2024 10:52 AM ELECTRONICS DEPARTMENT MANAGER BACTERIA / ALIX CULTURE, BLOOD Routine 01/03/2024 10:52 AM ELECTRONICS DEPARTMENT MANAGER ALBUMIN, S/P Routine 01/03/2024 10:51 AM ELECTRONICS DEPARTMENT MANAGER HEMODIALYSIS Routine 01/03/2024 8:16 AM ELECTRONICS DEPARTMENT MANAGER VITAMIN D, IMMUNOASSAY, TOTAL, S Routine 01/03/2024 6:42 AM ELECTRONICS DEPARTMENT MANAGER NT-PRO B-TYPE NATRIURETIC PEPTIDE (BNP), S Routine 01/03/2024 6:42 AM ELECTRONICS DEPARTMENT MANAGER CALCIUM, IONIZED, S/B Routine 01/03/2024 6:42 AM ELECTRONICS DEPARTMENT MANAGER PH BLOOD GAS Routine 01/03/2024 6:42 AM ELECTRONICS DEPARTMENT MANAGER CBC WITH DIFFERENTIAL, B Routine 01/03/2024 6:42 AM ELECTRONICS DEPARTMENT MANAGER BASIC METABOLIC PANEL, S/P Routine 01/03/2024 6:42 AM ELECTRONICS DEPARTMENT MANAGER QUANTIFERON-TB GOLD PLUS, B Routine 01/03/2024 6:42 AM ELECTRONICS DEPARTMENT MANAGER HBC TOTAL AB, SERUM Routine 01/03/2024 6 :42 AM ELECTRONICS DEPARTMENT MANAGER HBS ANTIBODY, SERUM Routine 01/03/2024 6 :42 AM ELECTRONICS DEPARTMENT MANAGER HEPATITIS B SURFACE ANTIGEN Routine 01/03/2024 6:42 AM ELECTRONICS DEPARTMENT MANAGER LEUKEMIA/LYMPHOMA, PHENOTYPE, V Timed 01/03/2024 6:10 AM ELECTRONICS DEPARTMENT MANAGER CHOLESTEROL, BF Timed 01/03/2024 6:10 AM ELECTRONICS DEPARTMENT MANAGER GLUCOSE, BODY FLUID Timed 01/03/2024 6 :10 AM ELECTRONICS DEPARTMENT MANAGER CELL COUNT AND DIFFERENTIAL, BF Timed 01/03/2024 6:10 AM ELECTRONICS DEPARTMENT MANAGER PROTEIN, TOTAL, BF Timed 01/03/2024 6: 10 AM ELECTRONICS DEPARTMENT MANAGER LACTATE DEHYDROGENASE (LD), BF Timed 01/03/2024 6:10 AM ELECTRONICS DEPARTMENT MANAGER M TUBERCULOSIS COMPLEX PCR, V Timed 01/03/2024 6:10 AM ELECTRONICS DEPARTMENT MANAGER BROAD RANGE BACTERIA PCR AND SEQUENCING Timed 01/03/2024 6:10 AM ELECTRONICS DEPARTMENT MANAGER BACTERIAL CULTURE, ANAEROBIC + SUSC Timed 01/03/2024 6:10 AM ELECTRONICS DEPARTMENT MANAGER BACTERIAL CULTURE, AEROBIC + SUSC Timed 01/03/2024 6:10 AM ELECTRONICS DEPARTMENT MANAGER GRAM STAIN Timed 01/03/2024 6:10 AM ELECTRONICS DEPARTMENT MANAGER DX CHEST PORTABLE 1 VIEW RAD - Semiurgent (Fast; most ED patients; some inpatients) 01/02/2024 3:59 PM ELECTRONICS DEPARTMENT MANAGER MC ANE CENTRAL LINE GENERIC PERFORMABLE Routine 01/02/2024 3:47 PM ELECTRONICS DEPARTMENT MANAGER Failure Renal Acute (Acute Kidney Injury) (HCC) LDA ANE CENTRAL LINE DOUBLE LUMEN ADULT Routine 01/02/2024 3:47 PM ELECTRONICS DEPARTMENT MANAGER Failure Renal Acute (Acute Kidney Injury) (HCC) NM US GUIDE VASC ACCESS Routine 01/02/2024 3:47 PM ELECTRONICS DEPARTMENT MANAGER Failure Renal Acute (Acute Kidney Injury) (HCC) NM INS NON-BLAINE CVC >5YR Routine 01/02/2024 3:47 PM ELECTRONICS DEPARTMENT MANAGER Failure Renal Acute (Acute Kidney Injury) (HCC) GENERAL SURGERY IMAGE EXAM Routine 01/02/2024 3:30 PM ELECTRONICS DEPARTMENT MANAGER HEMODIALYSIS Routine 01/02/2024 2:44 PM ELECTRONICS DEPARTMENT MANAGER MAGNESIUM, S Routine 01/02/2024 11:32 AM ELECTRONICS DEPARTMENT MANAGER BASIC METABOLIC PANEL, S/P Routine 01/02/2024 11:32 AM ELECTRONICS DEPARTMENT MANAGER US KIDNEYS BILATERAL WITH BLADDER RAD - Routine (most inpatients and all outpatients) 01/02/2024 10:15 AM ELECTRONICS DEPARTMENT MANAGER DX CHEST PORTABLE 1 VIEW RAD - Semiurgent (Fast; most ED patients; some inpatients) 01/02/2024 4:24 AM ELECTRONICS DEPARTMENT MANAGER CREATINE KINASE (CK), S Routine 01/02/2024 4:10 AM ELECTRONICS DEPARTMENT MANAGER ALBUMIN, S/P Routine 01/02/2024 4:10 AM ELECTRONICS DEPARTMENT MANAGER CALCIUM, IONIZED, S/B Routine 01/02/2024 4:10 AM ELECTRONICS DEPARTMENT MANAGER PH BLOOD GAS Routine 01/02/2024 4:10 AM ELECTRONICS DEPARTMENT MANAGER PHOSPHORUS (INORGANIC), S Routine 01/02/2024 3:41 AM ELECTRONICS DEPARTMENT MANAGER MAGNESIUM, S Routine 01/02/2024 3:41 AM ELECTRONICS DEPARTMENT MANAGER LACTATE, B STAT 01/02/2024 3:41 AM ELECTRONICS DEPARTMENT MANAGER NT-PRO B-TYPE NATRIURETIC PEPTIDE (BNP), S Routine 01/02/2024 3:41 AM ELECTRONICS DEPARTMENT MANAGER VENOUS BLOOD GAS W/COOX, B Routine 01/02/2024 3:41 AM ELECTRONICS DEPARTMENT MANAGER OSMOLALITY, S Routine 01/02/2024 3:41 AM ELECTRONICS DEPARTMENT MANAGER CBC WITH DIFFERENTIAL, B Routine 01/02/2024 3:41 AM ELECTRONICS DEPARTMENT MANAGER BASIC METABOLIC PANEL, S/P Routine 01/02/2024 3:41 AM ELECTRONICS DEPARTMENT MANAGER ECG Routine 01/02/2024 12:39 AM ELECTRONICS DEPARTMENT MANAGER OUTSIDE CT BODY Routine 01/01/2024 2:25 PM ELECTRONICS DEPARTMENT MANAGER OUTSIDE CT NEURO Routine 01/01/2024 2:20 PM ELECTRONICS DEPARTMENT MANAGER from Last 3 Months Results * CT CHEST W CON-Outside CT Body (01/22/2024 11:00 AM ELECTRONICS DEPARTMENT MANAGER) Only the most recent of2 resultswithin the time period is included. 01/22/2024 10:5 8 AM ELECTRONICS DEPARTMENT MANAGER Narrative IIMS - 01/22/2024 12:17 PM ELECTRONICS DEPARTMENT MANAGER This order has been created and auto-finalized to support the import of outside images. If available, original interpretation can be found on the Media Tab in Chart Review, in Document Viewer, as an image in QREADS or as an Addendum. If a re-interpretation or overread is required please follow defined workflow. us Provider Not In System IMG CT PROCEDURES Final R esult IIME NA * FL Swallow Function with Video and Speech or OT (01/11/2024 1:48 PM ELECTRONICS DEPARTMENT MANAGER) Anatomical Region Laterality Modality Gastro Intestinal, Abdominal RST LOS, Abdominal ARZ LOS, Abdominal FLA LOS N/A Digital Radiography Impressions 01/11/2024 4:00 PM ELECTRONICS DEPARTMENT MANAGER Normal modified barium swallow study Narrative 01/11/2024 4:00 PM ELECTRONICS DEPARTMENT MANAGER EXAM: FL SWALLOW FUNCTION WITH VIDEO AND [...] Result * Testing Location (01/11/2024 11:51 AM ELECTRONICS DEPARTMENT MANAGER) Testing Location [facility] DEFAULT 01/11/2024 11:57 AM ELECTRONICS DEPARTMENT MANAGER [facility] Blood 01/11/2024 11:5 1 AM ELECTRONICS DEPARTMENT MANAGER 01/11/2024 11:57 AM ELECTRONICS DEPARTMENT MANAGER us Jeremías Fernandez M.D. LAB BLOOD BANK TEST ORDERABL ES Final Result [facility] [address] [place] [address], [facility] [place] [address] [place] [address] * (ABNORMAL) Hemoglobin (01/11/2024 11:51 AM ELECTRONICS DEPARTMENT MANAGER) Only the most recent of2 resultswithin the time period is included. Hemoglobin 8.1(L) 13.2 - 16.6 g/dL 01/11/2024 12:00 PM ELECTRONICS DEPARTMENT MANAGER [facility] Blood (Blood, Venous) 01/11/2024 11:51 AM ELECTRONICS DEPARTMENT MANAGER 01/11/2024 11:57 AM ELECTRONICS DEPARTMENT MANAGER Jeremías Fernandez M.D. LAB BLOOD ADD-ON Final Resul t Performing Organization Address City/[facility] Co de Phone Number [facility] [address] [place] [address], [place] [address] * Type and Screen (with Reflex Antibody ID) (01/11/2024 11:51 AM ELECTRONICS DEPARTMENT MANAGER) ABO Group B 01/11/2024 12:58 PM ELECTRONICS DEPARTMENT MANAGER [facility] Rh Type NEG 01/11/2024 12:58 PM ELECTRONICS DEPARTMENT MANAGER [facility] Antibody Screen NEG 12:58 PM ELECTRONICS DEPARTMENT MANAGER [facility] Type & Screen Expiration 01/14/2024 23:59 01/11/2024 12:58 PM ELECTRONICS DEPARTMENT MANAGER [facility] ELXM Eligible Y 01/11/2024 12:58 PM ELECTRONICS DEPARTMENT MANAGER [facility] Blood (Blood, Venous) 01/11/2024 11:51 AM ELECTRONICS DEPARTMENT MANAGER 01/11/2024 11:57 AM ELECTRONICS DEPARTMENT MANAGER Jeremías Fernandez M.D. LAB BLOOD BANK TEST ORDERABL ES Final Result Performing Organization Address [facility] Co de Phone Number [facility] [address] [place] [address], [address] [address] * DX Chest Portable 1 View (01/11/2024 6:54 AM ELECTRONICS DEPARTMENT MANAGER) Only the most recent of5 resultswithin the time period is included. Anatomical Region Laterality Modality Chest, Thoracic RST LOS, Tho racic ARZ LOS, Thoracic FLA LOS N/A Digital Radiography Impressions 01/11/2024 7:51 AM ELECTRONICS DEPARTMENT MANAGER No change since 01/10/2024. Small right pleural effusion with associated atelectasis. The left lung remains clear. No pneumothorax. Normal heart size. Aortic calcifications. Narrative 01/11/2024 7:51 AM ELECTRONICS DEPARTMENT MANAGER EXAM: DX CHEST PORTABLE 1 VIEW Procedure Note Yovany Shrestha M.D. - 01/11/2024 EXAM: DX CHEST PORTABLE 1 VIEW IMPRESSION: No change since 01/10/2024. Small right pleural effusion with associatedatelectasis. The left lung remains clear. No pneumothorax. Normal heartsize. Aortic calcifications. Fidencio Oliva M.D. IMG DIAGNOSTIC IMAGING PROCED URES Final Result * (ABNORMAL) Hepatic Function Panel (01/11/2024 4:48 AM ELECTRONICS DEPARTMENT MANAGER) Only the most recent of5 resultswithin the time period is included. Bilirubin, Total, P 0.2 0.0 - 1.2 mg/dL 01/11/2024 5:37 AM ELECTRONICS DEPARTMENT MANAGER [facility] Bilirubin, Direct, P 0.1 0.0 - 0.3 mg/dL 01/11/2024 5:37 AM ELECTRONICS DEPARTMENT MANAGER [facility] Aspartate Aminotransferase (AST), P 23 8 - 48 U/L 01/11/2024 5:37 AM ELECTRONICS DEPARTMENT MANAGER [facility] Alanine Aminotransferase (ALT), P 11 7 - 55 U/L 01/11/2024 5:37 AM ELECTRONICS DEPARTMENT MANAGER [facility] Alkaline Phosphatase, P 83 40 - 129 U/L 01/11/2024 5:37 AM ELECTRONICS DEPARTMENT MANAGER [facility] Albumin, P 2.4(L) 3.5 - 5.0 g/dL 01/11/2024 5:37 AM ELECTRONICS DEPARTMENT MANAGER [facility] Protein, Total, P 5.2(L) 6.3 - 7.9 g/dL 01/11/2024 5:37 AM ELECTRONICS DEPARTMENT MANAGER [facility] Blood (Blood, Venous) 01/11/2024 4:48 AM ELECTRONICS DEPARTMENT MANAGER 01/11/2024 5:11 AM ELECTRONICS DEPARTMENT MANAGER us Jeremías Fernandez M.D. LAB BLOOD ADD-ON Final Resul t [facility] [address] [place] [address], [facility] [place] [address] [place] [address] * (ABNORMAL) CBC with Differential, Blood (01/11/2024 4:48 AM ELECTRONICS DEPARTMENT MANAGER) Only the most recent of10 resultswithin the time period is included. Hemoglobin 7.5(L) 13.2 - 16.6 g/dL 01/11/2024 5:14 AM ELECTRONICS DEPARTMENT MANAGER [facility] Hematocrit 24.9(L) 38.3 - 48.6 % 01/11/2024 5:14 AM ELECTRONICS DEPARTMENT MANAGER [facility] Erythrocytes 2.52(L) 4.35 - 5.65 x10(12)/L 01/11/2024 5:14 AM ELECTRONICS DEPARTMENT MANAGER [facility] MCV 98.8(H) 78.2 - 97.9 fL 01/11/2024 5:14 AM ELECTRONICS DEPARTMENT MANAGER [facility] RBC Distrib Width 14.5 11.8 - 14.5 % 01/11/2024 5:14 AM ELECTRONICS DEPARTMENT MANAGER [facility] Platelet Count 243 135 - 317 x10(9)/L 01/11/2024 5:14 AM ELECTRONICS DEPARTMENT MANAGER [facility] Leukocytes 8.8 3.4 - 9.6 x10(9)/L 01/11/2024 5:14 AM ELECTRONICS DEPARTMENT MANAGER [employer] Neutrophils 6.61(H) 1.56 - 6.45 x10(9)/L 01/11/2024 5:14 AM ELECTRONICS DEPARTMENT MANAGER [facility] Lymphocytes 0.97 0.95 - 3.07 x10(9)/L 01/11/2024 5:14 AM ELECTRONICS DEPARTMENT MANAGER [facility] Monocytes 0.98(H) 0.26 - 0.81 x10(9)/L 01/11/2024 5:14 AM ELECTRONICS DEPARTMENT MANAGER [facility] Eosinophils 0.15 0.03 - 0.48 x10(9)/L 01/11/2024 5:14 AM ELECTRONICS DEPARTMENT MANAGER [facility] Basophils 0.07 0.01 - 0.08 x10(9)/L 01/11/2024 5:14 AM ELECTRONICS DEPARTMENT MANAGER [facility] Blood (Blood, Venous) 01/11/2024 4:48 AM ELECTRONICS DEPARTMENT MANAGER 01/11/2024 5:11 AM ELECTRONICS DEPARTMENT MANAGER us Jeremías Fernandez M.D. LAB BLOOD ADD-ON Final Resul t [facility] [address] [place] [address], Formerly [facility] [address] [place] [id number] * Phosphorus Inorganic (01/11/2024 4:48 AM ELECTRONICS DEPARTMENT MANAGER) Only the most recent of6 resultswithin the time period is included. Phosphorus (Inorganic), P 3.1 2.5 - 4.5 mg/dL 01/11/2024 5:37 AM ELECTRONICS DEPARTMENT MANAGER [facility] Blood (Blood, Venous) 01/11/2024 4:48 AM ELECTRONICS DEPARTMENT MANAGER 01/11/2024 5:11 AM ELECTRONICS DEPARTMENT MANAGER us Jeremías Fernandez M.D. LAB BLOOD ADD-ON Final Resul t [facility] [address] [place] [address], [address] [address] * Magnesium (01/11/2024 4:48 AM ELECTRONICS DEPARTMENT MANAGER) Only the most recent of8 resultswithin the time period is included. Magnesium, P 1.7 1.7 - 2.3 mg/dL 01/11/2024 5:37 AM ELECTRONICS DEPARTMENT MANAGER [facility] Blood (Blood, Venous) 01/11/2024 4:48 AM ELECTRONICS DEPARTMENT MANAGER 01/11/2024 5:11 AM ELECTRONICS DEPARTMENT MANAGER us Jeremías Fernandez M.D. LAB BLOOD ADD-ON Final Resul t [facility] [address] [place] [address], [facility] [address] [address] * (ABNORMAL) Basic Metabolic Panel (01/11/2024 4:48 AM ELECTRONICS DEPARTMENT MANAGER) Only the most recent of11 resultswithin the time period is included. Potassium, P 4.3 3.6 - 5.2 mmol/L 01/11/2024 5:37 AM ELECTRONICS DEPARTMENT MANAGER [facility] Sodium, P 143 135 - 145 mmol/L 01/11/2024 5:37 AM ELECTRONICS DEPARTMENT MANAGER [facility] Chloride, P 110(H) 98 - 107 mmol/L 01/11/2024 5:37 AM ELECTRONICS DEPARTMENT MANAGER [facility] Bicarbonate, P 24 22 - 29 mmol/L 01/11/2024 5:37 AM ELECTRONICS DEPARTMENT MANAGER [facility] Anion Gap, P 9 7 - 15 01/11/2024 5:37 AM ELECTRONICS DEPARTMENT MANAGER [facility] BUN (Blood Urea Nitrogen), P 33(H) 8 - 24 mg/dL 01/11/2024 5:37 AM ELECTRONICS DEPARTMENT MANAGER [facility] Creatinine 1.74(H) 0.74 - 1.35 mg/dL 01/11/2024 5:37 AM ELECTRONICS DEPARTMENT MANAGER [facility] Estimated GFR (eGFR) 38(L) >=60 mL/min/BSA 01/11/2024 5:37 AM ELECTRONICS DEPARTMENT MANAGER [facility] Comment: Estimated GFR calculated using the 2020 CKD_EPI creatinine equation. Calcium, Total, P 7.8(L) 8.8 - 10.2 mg/dL 01/11/2024 5:37 AM ELECTRONICS DEPARTMENT MANAGER [facility] Glucose, P 92 70 - 140 mg/dL 01/11/2024 5:37 AM ELECTRONICS DEPARTMENT MANAGER [facility] Blood (Blood, Venous) 01/11/2024 4:48 AM ELECTRONICS DEPARTMENT MANAGER 01/11/2024 5:11 AM ELECTRONICS DEPARTMENT MANAGER us Jeremías Fernandez M.D. LAB BLOOD ADD-ON Final Resul t [facility] [address] [place] [address], [facility] in [address] [address] * (ABNORMAL) Morphology Evaluation (01/09/2024 6:42 AM ELECTRONICS DEPARTMENT MANAGER) Only the most recent of5 resultswithin the time period is included. RBC Morphology See Specific Findings 01/09/2024 8:09 AM ELECTRONICS DEPARTMENT MANAGER [facility] PLT Morphology Normal 01/09/2024 8:09 AM ELECTRONICS DEPARTMENT MANAGER [facility] PLT Estimate Adequate Adequate 01/09/2024 8:09 AM ELECTRONICS DEPARTMENT MANAGER [facility] Anisocytosis Slight(A) 01/09/2024 8:09 AM ELECTRONICS DEPARTMENT MANAGER [facility] Basophilic Stippling Slight(A) 01/09/2024 8:09 AM ELECTRONICS DEPARTMENT MANAGER [facility] Elliptocytes Slight(A) Not Seen 01/09/2024 8:09 AM ELECTRONICS DEPARTMENT MANAGER [facility] Poikilocytosis Slight(A) Not Seen 01/09/2024 8:09 AM ELECTRONICS DEPARTMENT MANAGER [facility] Blood 01/09/2024 6:42 AM ELECTRONICS DEPARTMENT MANAGER 01/09/2024 7:05 AM ELECTRONICS DEPARTMENT MANAGER us Jeremías Fernandez M.D. LAB BLOOD ADD-ON Final Resul t [facility] [place] [address], [facility] MKTO [facility] [place] [address] * (ABNORMAL) Manual Differential, Blood (01/09/2024 6:42 AM ELECTRONICS DEPARTMENT MANAGER) Only the most recent of4 resultswithin the time period is included. Pathologist [facility] Segmented Neutrophils 87(H) 50 - 75 % 01/09/2024 8:09 AM ELECTRONICS DEPARTMENT MANAGER MKTO Lymphocytes % 8(L) 18 - 42 % 01/09/2024 8:09 AM ELECTRONICS DEPARTMENT MANAGER [facility] Monocytes 1(L) 2 - 11 % 01/09/2024 8:09 AM ELECTRONICS DEPARTMENT MANAGER [facility] Eosinophils 1 1 - 3 % 01/09/2024 8:09 AM ELECTRONICS DEPARTMENT MANAGER [facility] Metamyelocytes 1(H) <1 % 01/09/2024 8:09 AM ELECTRONICS DEPARTMENT MANAGER MK[facility] Myelocytes 2(H) <0.5 % 01/09/2024 8:09 AM ELECTRONICS DEPARTMENT MANAGER [facility] Manual Absolute Neutrophil Count 10.27(H) 1.56 - 6.45 x10(9)/L 01/09/2024 8:09 AM ELECTRONICS DEPARTMENT MANAGER [facility] Comment: ----ADDITIONAL INFORMATION---- The manual absolute neutrophil count is derived from a manual differential count and therefore is not exactly comparable to the automated absolute neutrophil count. Blood 01/09/2024 6:42 AM ELECTRONICS DEPARTMENT MANAGER 01/09/2024 7:05 AM ELECTRONICS DEPARTMENT MANAGER us Jeremías Fernandez M.D. LAB BLOOD ADD-ON Final Resul t [facility] [address] [place] [address], [place] [facility] [place] [address] [place] [address] * CT Chest without IV Contrast (01/08/2024 1:11 PM ELECTRONICS DEPARTMENT MANAGER) Anatomical Region Laterality Modality Chest, Thoracic RST LOS, Tho racic ARZ LOS, Thoracic FLA LOS N/A Computed Tomography Impressions 01/08/2024 2:48 PM ELECTRONICS DEPARTMENT MANAGER 1. Loculated right pleural collection with adjacent consolidation or atelectasis in the right lower lobe. 2. Right chest tube pigtail is positioned at the interface of the pleural space with the adjacent chest wall. Correlation with chest tube function recommended. 3. No fluid collection within the chest wall. Small right chest wall emphysema. Narrative 01/08/2024 2:48 PM ELECTRONICS DEPARTMENT MANAGER EXAM: CT CHEST WITHOUT IV CONTRAST COMPARISON: [...] DX Chest 1 View (01/08/2024 7:16 AM ELECTRONICS DEPARTMENT MANAGER) Only the most recent of3 resultswithin the time period is included. Anatomical Region Laterality Modality Chest, Thoracic RST LOS, Tho racic ARZ LOS, Thoracic FLA LOS N/A Digital Radiography Impressions 01/08/2024 7:44 AM ELECTRONICS DEPARTMENT MANAGER Interval retraction of the right pleural catheter. The pigtail projects over the lateral chest wall soft tissues and requires correlation with positioning and catheter output. Persisting right pleural effusion/pleural thickening and right basilar airspace opacity. Narrative 01/08/2024 7:44 AM ELECTRONICS DEPARTMENT MANAGER EXAM: DX CHEST 1 VIEW COMPARISON: January [...] Tropheryma whipplei PCR, Blood (01/06/2024 11:36 AM ELECTRONICS DEPARTMENT MANAGER) Specimen Source BLOOD 12:26 PM ELECTRONICS DEPARTMENT MANAGER DTL Tropheryma whipplei PCR, B, Result Negative Not Applicable 01/08/2024 12:26 PM ELECTRONICS DEPARTMENT MANAGER DTL Comment: ----ADDITIONAL INFORMATION---- This test was developed and its performance characteristics determined by [facility] in a manner consistent with CLIA requirements. This test has not been cleared or approved by the U.S. Food and Drug Administration. Blood (Blood, Venous) 01/06/2024 11:36 AM ELECTRONICS DEPARTMENT MANAGER 01/07/2024 8:06 AM ELECTRONICS DEPARTMENT MANAGER Sarah Rose M.D. LAB MICROBIOLOG Y - BLOOD ORDERABLES Final Result [facility] [address] [place] [address], [facility] 200 [facility] [address] [place] [address] * [id number] [facility] Test for Pathogen Detection - Miscellaneous Test (01/06/2024 11:36 AM ELECTRONICS DEPARTMENT MANAGER) Test Name [facility] Test for Pathogen Detection 01/06/2024 11:49 AM ELECTRONICS DEPARTMENT MANAGER MKTO Result Specimen sent out; results to follow DEFAULT 01/06/2024 11:49 AM ELECTRONICS DEPARTMENT MANAGER [facility] Blood (Blood, Venous) 01/06/2024 11:36 AM ELECTRONICS DEPARTMENT MANAGER 01/06/2024 11:49 AM ELECTRONICS DEPARTMENT MANAGER us Sarah Rose M.D. LAB MISC ORDERA BLES Final Result [facility] [address] [place] [address], [place] [facility] in [address] [address] * [facility] Sent Out Lab (01/06/2024 10:59 AM ELECTRONICS DEPARTMENT MANAGER) Test Name Bronwyn Test for Pathogen Detection 01/06/2024 11:49 AM ELECTRONICS DEPARTMENT MANAGER [place] Result SEE COMMENT 01/11/2024 9:44 AM ELECTRONICS DEPARTMENT MANAGER [place] Comment: For final report, select Lab-Send Out Lab Results hyperlink below. 01/06/2024 10:5 9 AM ELECTRONICS DEPARTMENT MANAGER 01/07/2024 8:53 AM ELECTRONICS DEPARTMENT MANAGER us Sarah Rose M.D. LAB [facility] NUNU ARMSTRONG Final Result [facility] [address] [place] [address], [facility] [address] [place] [id number] * (ABNORMAL) Renal Function Panel (01/06/2024 5:37 AM ELECTRONICS DEPARTMENT MANAGER) Potassium, P 3.3(L) 3.6 - 5.2 mmol/L 01/06/2024 6:11 AM ELECTRONICS DEPARTMENT MANAGER [facility] Sodium, P 142 135 - 145 mmol/L 01/06/2024 6:11 AM ELECTRONICS DEPARTMENT MANAGER [facility] Chloride, P 104 98 - 107 mmol/L 01/06/2024 6:11 AM ELECTRONICS DEPARTMENT MANAGER [facility] Bicarbonate, P 25 22 - 29 mmol/L 01/06/2024 6:11 AM ELECTRONICS DEPARTMENT MANAGER [facility] Anion Gap, P 13 7 - 15 01/06/2024 6:11 AM ELECTRONICS DEPARTMENT MANAGER [facility] BUN (Blood Urea Nitrogen), P 37(H) 8 - 24 mg/dL 01/06/2024 6:11 AM ELECTRONICS DEPARTMENT MANAGER [facility] Creatinine 1.91(H) 0.74 - 1.35 mg/dL 01/06/2024 6:11 AM ELECTRONICS DEPARTMENT MANAGER [facility] Estimated GFR (eGFR) 34(L) >=60 mL/min/BSA 01/06/2024 6:11 AM ELECTRONICS DEPARTMENT MANAGER [facility] Comment: Estimated GFR calculated using the 2020 CKD_EPI creatinine equation. Calcium, Total, P 8.4(L) 8.8 - 10.2 mg/dL 01/06/2024 6:11 AM ELECTRONICS DEPARTMENT MANAGER [facility] Glucose, P 92 70 - 140 mg/dL 01/06/2024 6:11 AM ELECTRONICS DEPARTMENT MANAGER [facility] Albumin, P 2.7(L) 3.5 - 5.0 g/dL 01/06/2024 6:11 AM ELECTRONICS DEPARTMENT MANAGER [facility] Phosphorus (Inorganic), P 2.7 2.5 - 4.5 mg/dL 01/06/2024 6:11 AM ELECTRONICS DEPARTMENT MANAGER [facility] Blood (Blood, Venous) 01/06/2024 5:37 AM ELECTRONICS DEPARTMENT MANAGER 01/06/2024 5:47 AM ELECTRONICS DEPARTMENT MANAGER us Vidhya Tovar P.A.-C. LAB BLOOD ADD-ON Final Resu lt [facility] [address] [place] [address], [facility] MKTO [facility] [place] [address] * ECG 12 Lead (01/06/2024 5:32 AM ELECTRONICS DEPARTMENT MANAGER) Only the most recent of2 resultswithin the time period is included. Ventricular Rate ECG/Min 98 BPM MUSE NM Interval 164 ms MUSE QRSD Interval 128 ms MUSE QT Interval 398 ms MUSE QTC Interval 508 ms MUSE P Kincaid 52 degrees MUSE R Kincaid -72 degrees MUSE T Wave Kincaid 53 degrees MUSE 01/06/2024 5:32 AM ELECTRONICS DEPARTMENT MANAGER 01/06/2024 5:40 AM ELECTRONICS DEPARTMENT MANAGER Impressions MUSE - 01/06/2024 5:40 AM ELECTRONICS DEPARTMENT MANAGER Normal sinus rhythm Right bundle branch block [...] found Reviewed by GABRIELA Roa us Laura Felix Chavez APRN, C.N.PEliel ECG ORDERABLES Sury vargas Result MUSE NA * IR Chest Tube Placement (01/05/2024 1:42 PM ELECTRONICS DEPARTMENT MANAGER) Anatomical Region Laterality Modality Chest, Vascular Intervention al RST LOS, Vascular Interventional ARZ LOS, Vascular Interventional FLA LOS N/A X-Ray Angiography Impressions 01/05/2024 2:17 PM ELECTRONICS DEPARTMENT MANAGER 1. Right chest tube placement. Narrative 01/05/2024 2:17 PM ELECTRONICS DEPARTMENT MANAGER EXAM: IR CHEST TUBE PLACEMENT HISTORY: R [...] medications. Patient education provided by a care prepared foods team leader. Patient was ready to learn with no apparent learning barriers were identified. Post-procedure care explained; patient expressed understanding of the content. PROCEDURE DETAILS: Sedation: None. Local anesthesia was achieved with lidocaine. Sedation time: None Estimated Blood Loss: Less than 10 mL. TECHNIQUE: Imaging guidance for drain insertion: Ultrasound and fluoroscopy with permanent image storage Access side: Right Catheter: 12 Tanzanian multipurpose pigtail drain Technique: Image guidance was used to localize the collection. A 5 Tanzanian Yueh needle catheter was used to access the collection under real time image guidance, and images were saved to PACS. Aspiration yielded purulent fluid. A guidewire was inserted, and the tract was dilated to accommodate a 12 Tanzanian pigtail drain. The catheter was secured with [...] medications. Patient education provided by a care prepared foods team leader. Patient was ready to learn withno apparent learning barriers were identified. Post-procedure careexplained; patient expressed understanding of the content. PROCEDURE DETAILS: Sedation: None. Local anesthesia was achieved with lidocaine. Sedation time: None Estimated Blood Loss: Less than 10 mL. TECHNIQUE: Imaging guidance for drain insertion: Ultrasound and fluoroscopy withpermanent image storage Access side: Right Catheter: 12 Tanzanian multipurpose pigtail drain Technique: Image guidance was used to localize the collection. A 5 FrenchYueh needle catheter was used to access the collection under real timeimage guidance, and images were saved to PACS. Aspiration yielded purulentfluid. A guidewire was inserted, and the tract was dilated to accommodate a 12 Tanzanian pigtail drain. Thecatheter was secured with 2-0 Ethilon suture. The catheter was connectedto Pleur-evac Intraprocedural or immediate post-procedural complications: None FINDINGS: Catheter tip location: Final image was demonstrates the catheter tip to belocated in the right pleural space Additional observations: N/A PLAN: Follow-up with pulmonology. IMPRESSION: 1. Right chest tube placement. us Fidencio Oliva M.D. IMG IR PROCEDURES Final Resul t * Cytology Non-SOIL CONSERVATION AIDE (01/05/2024 12:50 PM ELECTRONICS DEPARTMENT MANAGER) Only the most recent of2 resultswithin the time period is included. 01/07/2024 3:19 PM ELECTRONICS DEPARTMENT MANAGER HK[facility] Disclaimer This test has been modified from the admin assistant's instructions. Its performance characteristics were determined by [facility] in a manner consistent with CLIA requirements. This test has not been cleared or approved by the U.S. Food and Drug Administration. 01/07/2024 3:19 PM ELECTRONICS DEPARTMENT MANAGER HK[facility] Report electronically signed by LOLY Schwartz. Ch.B. I verify that I have examined all relevant slides/materials for the specimen(s) and rendered or confirmed the diagnosis. 01/07/2024 3:19 PM ELECTRONICS DEPARTMENT MANAGER [facility] Gross Description 50 ml of cloudy hubbard fluid received. Specimen fixed at 2:20 pm on 01-05-2024. 2 slides and cell block prepared. 01/07/2024 3:19 PM ELECTRONICS DEPARTMENT MANAGER HKCY Source A. Pleural, fluid 024 3:19 PM ELECTRONICS DEPARTMENT MANAGER HK[facility] Interpretation A. Pleural, fluid (smears/cell block): Negative for malignancy. Acute inflammation. COMMENT Immunohistochemica l stains with appropriate reactive controls was performed on separate slides on cell block. CK7, WT1, calretinin, TTF1, Napsin A, p40, CK20, NKX3.1 and CDX2: Negative Controls reviewed, results acceptable. 01/07/2024 3:19 PM ELECTRONICS DEPARTMENT MANAGER [facility] Fluid 01/05/2024 12:5 0 PM ELECTRONICS DEPARTMENT MANAGER 01/06/2024 7:16 AM ELECTRONICS DEPARTMENT MANAGER us Fidencio Oliva M.D. LAB SURG PATH ORDERABLES Sury l Result [facility] [address] [place] [address], [place] [facility] [address] [facility] [address] [place] [address] * Protein, Total, Body Fluid (01/05/2024 12:50 PM ELECTRONICS DEPARTMENT MANAGER) Only the most recent of2 resultswithin the time period is included. Protein, Total, BF 2.6 See Comment g/dL 01/06/2024 11:13 AM ELECTRONICS DEPARTMENT MANAGER DTL Comment: ----ADDITIONAL INFORMATION---- A pleural fluid [...] clinical findings. All other fluids refer to [email or web address] for further interpretive information. This test has been modified from the admin assistant's instructions. Its performance characteristics were determined by [facility] in a manner consistent with CLIA requirements. This test has not been cleared or approved by the U.S. Food and Drug Administration. Fluid Type, Protein, Total PLEURAL 01/06/2024 10:14 AM ELECTRONICS DEPARTMENT MANAGER DTL Fluid (Pleural Fluid) 01/05/2024 12:50 PM ELECTRONICS DEPARTMENT MANAGER 01/06/2024 10:01 AM ELECTRONICS DEPARTMENT MANAGER us Fidencio Oliva M.D. LAB BODY FLUIDS AND STOOLS OR DERABLES Final Result [facility] [address] [place] [address], [facility] [address] [place] [address] * (ABNORMAL) Bacterial Culture, Aerobic + Susceptibility (01/05/2024 12:50 PM ELECTRONICS DEPARTMENT MANAGER) Only the most recent of2 resultswithin the time period is included. Pathologist [facility] Bacterial Culture, Aerobic + Susc STREPTOCOCCUS ANGINOSUS GROUP [place] (A) 01/09/2024 7:56 AM ELECTRONICS DEPARTMENT MANAGER MKTO Fluid (Pleural Fluid) 01/05/2024 12:50 PM ELECTRONICS DEPARTMENT MANAGER 01/05/2024 1:47 PM ELECTRONICS DEPARTMENT MANAGER Comment:Specimen Source Site : Fluid Narrative Organism [...] MICROBIOLOGY - GENERAL OR DERABLES Final Result [facility] [address] [place] [address], [facility] MKTO [facility] [place] [address] * Cell Count and Differential, Body Fluid (01/05/2024 12:50 PM ELECTRONICS DEPARTMENT MANAGER) Only the most recent of2 resultswithin the time period is included. Fluid Type Pleural/Thor acentesis 01/05/2024 2:19 PM ELECTRONICS DEPARTMENT MANAGER MKTO Gross Appearance Purulent 01/05/20 24 2:40 PM ELECTRONICS DEPARTMENT MANAGER MK[facility] Total Nucleated Cells [id number] /[id number] 01/05/2024 2:40 PM ELECTRONICS DEPARTMENT MANAGER MKTO Comment: ----REFERENCE VALUE---- Synovial: <150 Peritoneal: <500 Pleural: <500 Pericardial: <500 ----ADDITIONAL INFORMATION---- This test has been modified from the admin assistant's instructions. Its performance characteristics were determined by [facility] in a manner consistent with CLIA requirements. This test has not been cleared or approved by the U.S. Food and Drug Administration. Neutrophils 100 % 01/05/2024 3:04 PM ELECTRONICS DEPARTMENT MANAGER MKTO Comment: ----REFERENCE VALUE---- Synovial: <25% Peritoneal: <25% Pleural: <25% Pericardial: <25% Reviewed by: Dr. Morton 01/05/2024 3:05 PM ELECTRONICS DEPARTMENT MANAGER MKTO Fluid (Pleural Fluid) 01/05/2024 12:50 PM ELECTRONICS DEPARTMENT MANAGER 01/05/2024 1:47 PM ELECTRONICS DEPARTMENT MANAGER us Fidencio Oliva M.D. LAB BODY FLUIDS AND STOOLS OR DERABLES Final Result [facility] [address] [place] [address], [facility] [place] [address] * Triglycerides, Body Fluid (01/05/2024 12:50 PM ELECTRONICS DEPARTMENT MANAGER) Triglycerides, BF 31 See Comment mg/dL 01/06/2024 11:13 AM ELECTRONICS DEPARTMENT MANAGER DTL Comment: ----ADDITIONAL INFORMATION---- Pleural fluid triglyceride concentrations > 110 mg/dL are consistent with chylous effusions. Triglyceride concentrations <50 mg/dL are usually not due to chylous effusions. Peritoneal fluid triglyceride concentrations > 187 mg/dL are most consistent with chylous effusion. All other fluids refer to http://www.[employer].com for further interpretive information. This test has been modified from the admin assistant's instructions. Its performance characteristics were determined by [facility] in a manner consistent with CLIA requirements. This test has not been cleared or approved by the U.S. Food and Drug Administration. Fluid Type Pleural 01/06/2024 10:14 AM ELECTRONICS DEPARTMENT MANAGER DTL Fluid (Pleural Fluid) 01/05/2024 12:50 PM ELECTRONICS DEPARTMENT MANAGER 01/06/2024 10:01 AM ELECTRONICS DEPARTMENT MANAGER us Fidencio Oliva M.D. LAB BODY FLUIDS AND STOOLS OR DERABLES Final Result [facility] [address] [place] [address], [facility] [address] [place] [address] * pH, Pleural Fluid (01/05/2024 12:50 PM ELECTRONICS DEPARTMENT MANAGER) pH, Pleural Fluid <6.80 Not Applicable pH 01/05/2024 1:59 PM ELECTRONICS DEPARTMENT MANAGER MKTO Comment: Clinical guidelines suggest that in parapneumonic pleural effusions, a pH <7.2 indicate the need for tube drainage. Fluid (Pleural Fluid) 01/05/2024 12:50 PM ELECTRONICS DEPARTMENT MANAGER 01/05/2024 1:47 PM ELECTRONICS DEPARTMENT MANAGER us Fidencio Oliva M.D. LAB BODY FLUIDS AND STOOLS OR DERABLES Final Result Performing Organization Address [facility] Co de Phone Number [facility] [address] [place] [address], [facility] MKTO [facility] in [address] [address] * (ABNORMAL) Gram Stain (01/05/2024 12:50 PM ELECTRONICS DEPARTMENT MANAGER) Only the most recent of3 resultswithin the time period is included. Gram Stain White blood cells, Many.(A) 01/05/2024 2:46 PM ELECTRONICS DEPARTMENT MANAGER MKTO Gram Stain GRAM POSITIVE COCCI Many. (A) 01/05/2024 2:46 PM ELECTRONICS DEPARTMENT MANAGER MKTO Fluid (Pleural Fluid) 01/05/2024 12:50 PM ELECTRONICS DEPARTMENT MANAGER 01/05/2024 1:47 PM ELECTRONICS DEPARTMENT MANAGER Comment:Specimen Source Site : Fluid us Fidencio Oliva M.D. LAB MICROBIOLOGY - GENERAL OR DERABLES Final Result [facility] [address] [place] [address], [facility] [place] [address] * Bacterial Culture, Anaerobic + Susceptibility (01/05/2024 12:50 PM ELECTRONICS DEPARTMENT MANAGER) Only the most recent of2 resultswithin the time period is included. Bacterial Culture, Anaerobic No growth after 7 days of incubation. 01/12/2024 7:59 AM ELECTRONICS DEPARTMENT MANAGER [facility] Fluid (Pleural Fluid) 01/05/2024 12:50 PM ELECTRONICS DEPARTMENT MANAGER 01/05/2024 1:47 PM ELECTRONICS DEPARTMENT MANAGER Comment:Specimen Source Site : Fluid us Fidencio Oliva M.D. LAB MICROBIOLOGY - GENERAL OR DERABLES Final Result [facility] [address] [place] [address] * Lactate Dehydrogenase (LD), Body Fluid (01/05/2024 12:50 PM ELECTRONICS DEPARTMENT MANAGER) Only the most recent of2 resultswithin the time period is included. Lactate Dehydrogenase (LD), BF >9000 See Comment U/L 01/06/2024 12:17 PM ELECTRONICS DEPARTMENT MANAGER DTL Comment: ----ADDITIONAL INFORMATION---- Pleural fluid lactate [...] clinical findings. All other fluids refer to www.[employer].com for further interpretive information. This test has been modified from the admin assistant's instructions. Its performance characteristics were determined by [facility] in a manner consistent with CLIA requirements. This test has not been cleared or approved by the U.S. Food and Drug Administration. Fluid Type, Lactate Dehydrogenase PLEURAL 01/06/2024 10:14 AM ELECTRONICS DEPARTMENT MANAGER DTL Fluid (Pleural Fluid) 01/05/2024 12:50 PM ELECTRONICS DEPARTMENT MANAGER 01/06/2024 8:29 AM ELECTRONICS DEPARTMENT MANAGER Fidencio Oliva M.D. LAB BODY FLUIDS AND STOOLS OR DERABLES Final Result [facility] [address] [place] [address], [facility] [address] [place] [address] * Glucose, Body Fluid (01/05/2024 12:50 PM ELECTRONICS DEPARTMENT MANAGER) Only the most recent of2 resultswithin the time period is included. Glucose, BF 49 See Comment mg/dL 01/06/2024 11:13 AM ELECTRONICS DEPARTMENT MANAGER DTL Comment: ----ADDITIONAL INFORMATION---- Body fluid glucose [...] cystic lesions. All other fluids refer to www.[employer].com for further interpretive information. This test has been modified from the admin assistant's instructions. Its performance characteristics were determined by [facility] in a manner consistent with CLIA requirements. This test has not been cleared or approved by the U.S. Food and Drug Administration. Fluid Type, Glucose PLEURAL 01/05 10:14 AM ELECTRONICS DEPARTMENT MANAGER DTL Fluid (Pleural Fluid) 01/05/2024 12:50 PM ELECTRONICS DEPARTMENT MANAGER 01/06/2024 10:01 AM ELECTRONICS DEPARTMENT MANAGER Fidencio Oliva M.D. LAB BODY FLUIDS AND STOOLS OR DERABLES Final Result [facility] [address] [place] [address], [place] DTL [facility] [address] [place], [place] [id number] * Pneumonia Panel, PCR (01/04/2024 7:45 PM ELECTRONICS DEPARTMENT MANAGER) Specimen Source SPUTUM 10:43 PM ELECTRONICS DEPARTMENT MANAGER [facility] Acinetobacter calcoaceticus-balbir annii complex Undetected Undetected copies/mL 01/04/2024 10:43 PM ELECTRONICS DEPARTMENT MANAGER [facility] Enterobacter cloacae complex Undetected Undetected copies/mL 01/04/2024 10:43 PM ELECTRONICS DEPARTMENT MANAGER [facility] Escherichia coli Undetected Undetected copies/mL 01/04/2024 10:43 PM ELECTRONICS DEPARTMENT MANAGER [facility] Haemophilus influenzae Undetected Undetected copies/mL 01/04/2024 10:43 PM ELECTRONICS DEPARTMENT MANAGER [facility] Klebsiella aerogenes Undetected Undetected copies/mL 01/04/2024 10:43 PM ELECTRONICS DEPARTMENT MANAGER [facility] Klebsiella oxytoca Undetected Undetected copies/mL 01/04/2024 10:43 PM ELECTRONICS DEPARTMENT MANAGER [facility] Klebsiella pneumoniae complex Undetected Undetected copies/mL 01/04/2024 10:43 PM ELECTRONICS DEPARTMENT MANAGER [facility] Moraxella catarrhalis Undetected Undetected copies/mL 01/04/2024 10:43 PM ELECTRONICS DEPARTMENT MANAGER [facility] Proteus species Undetected Undetected copies/mL 01/04/2024 10:43 PM ELECTRONICS DEPARTMENT MANAGER [facility] Pseudomonas aeruginosa Undetected Undetected copies/mL 01/04/2024 10:43 PM ELECTRONICS DEPARTMENT MANAGER [facility] Serratia marcescens Undetected Undetected copies/mL 01/04/2024 10:43 PM ELECTRONICS DEPARTMENT MANAGER [facility] Staphylococcus aureus complex Undetected Undetected copies/mL 01/04/2024 10:43 PM ELECTRONICS DEPARTMENT MANAGER [facility] Streptococcus agalactiae Undetected Undetected copies/mL 01/04/2024 10:43 PM ELECTRONICS DEPARTMENT MANAGER [facility] Streptococcus pneumoniae Undetected Undetected copies/mL 01/04/2024 10:43 PM ELECTRONICS DEPARTMENT MANAGER [facility] Streptococcus pyogenes Undetected Undetected copies/mL 01/04/2024 10:43 PM ELECTRONICS DEPARTMENT MANAGER [facility] Chlamydia pneumoniae Undetected Undetected 01/04/2024 10:43 PM ELECTRONICS DEPARTMENT MANAGER [facility] Legionella pneumophila Undetected Undetected 01/04/2024 10:43 PM ELECTRONICS DEPARTMENT MANAGER [facility] Mycoplasma pneumoniae Undetected Undetected 01/04/2024 10:43 PM ELECTRONICS DEPARTMENT MANAGER [facility] Adenovirus Undetected Undetected 01/04/2024 10:43 PM ELECTRONICS DEPARTMENT MANAGER [facility] Coronavirus Undetected Undetected 01/04/2024 10:43 PM ELECTRONICS DEPARTMENT MANAGER [facility] Human Metapneumovirus Undetected Undetected 01/04/2024 10:43 PM ELECTRONICS DEPARTMENT MANAGER [facility] Human Rhinovirus/Enterov irus Undetected Undetected 01/04/2024 10:43 PM ELECTRONICS DEPARTMENT MANAGER [facility] Influenza A Undetected Undetected 01/04/2024 10:43 PM ELECTRONICS DEPARTMENT MANAGER [facility] Influenza B Undetected Undetected 01/04/2024 10:43 PM ELECTRONICS DEPARTMENT MANAGER [facility] Parainfluenza Undetected Undetected 01/04/2024 10:43 PM ELECTRONICS DEPARTMENT MANAGER [facility] Respiratory Syncytial Virus Undetected Undetected 01/04/2024 10:43 PM ELECTRONICS DEPARTMENT MANAGER [facility] Comment: ----ADDITIONAL INFORMATION---- This assay is performed using the FDA-cleared FilmArray Pneumonia Panel (PN) ([employer]). Any initial empiric treatment guidance provided in [...] SARS-CoV-2. Sputum (Sputum) 01/04/2024 7 :45 PM ELECTRONICS DEPARTMENT MANAGER 01/04/2024 7:55 PM ELECTRONICS DEPARTMENT MANAGER Octavio Cavazos, Ch.B. LAB MICROBIOLOGY - GENERAL ORDERABLES Final Result [facility] [address] [place] [address], [facility] [address] [place] [address] * Bacterial Culture, Aerobic + Susceptibility, Respiratory (01/04/2024 7:45 PM ELECTRONICS DEPARTMENT MANAGER) Bacterial Culture, Aerobic, Resp No growth after 2 days of incubation. 01/06/2024 8:19 AM ELECTRONICS DEPARTMENT MANAGER TO Sputum (Sputum) 01/04/2024 7 :45 PM ELECTRONICS DEPARTMENT MANAGER 01/04/2024 7:55 PM ELECTRONICS DEPARTMENT MANAGER Comment:Specimen Source Site : Sputum Octavio Cavazos, Ch.B. LAB MICROBIOLOGY - GENERAL ORDERABLES Final Result Performing Organization Address [facility] Co de Phone Number [facility] [address] [place] [address] * MRSA PCR, Nasal (01/04/2024 7:45 PM ELECTRONICS DEPARTMENT MANAGER) MRSA Screen, Nasal by PCR Negative Negative 01/04/2024 9:24 PM ELECTRONICS DEPARTMENT MANAGER [facility] Swab (Nares) 01/04/2024 7:45 PM ELECTRONICS DEPARTMENT MANAGER 01/04/2024 7:53 PM ELECTRONICS DEPARTMENT MANAGER us Frank Mccall M.D. LAB MICROBIOLOGY - GENERAL ORDERABLES Final Result Performing Organization Address [facility] Co de Phone Number [facility] [address] [place] [address] * Ankle, Right-Nursing Image Exam (01/04/2024 7:40 PM ELECTRONICS DEPARTMENT MANAGER) 01/04/2024 7:39 PM ELECTRONICS DEPARTMENT MANAGER Narrative IIMS - 01/04/2024 7:42 PM ELECTRONICS DEPARTMENT MANAGER This order has been created and auto-finalized to support the import of images acquired without order. The clinical documentation to support these images can be found on the encounter that produced images. us Provider Not In System IMG NON RAD IMAGING PROCE DURES Final Result Performing Organization Address [facility] Co de Phone Number IIMS NA * (TTE) 2D ECHO DOPPLER COLOR AND CONTRAST (01/04/2024 10:38 AM ELECTRONICS DEPARTMENT MANAGER) Ejection Fraction 59 MC CV EIMS Sinus [...] Region Laterality Modality Echocardiography 01/04/2024 9:49 AM ELECTRONICS DEPARTMENT MANAGER Impressions 01/04/2024 11:49 AM ELECTRONICS DEPARTMENT MANAGER Echo performed at the patient's bedside. LEFT [...] per Echocardiography Contrast Administration Protocol Reference Document [id number] Rev 05/30/2021. Patient met an inclusion criterion and did not have contraindications in screening sections. For the complete report, see the Order-Level Documents. Narrative 01/04/2024 11:49 AM ELECTRONICS DEPARTMENT MANAGER For the complete report, see the Order-Level [...] administered per EchocardiographyContrast Administration Protocol Reference Document [id number] Rev05/30/2021. Patient met an inclusion criterion and did not havecontraindications in screening sections. For the complete report, see the Order-Level Documents. us Jet Palomares M.D. CV ECHO PROCEDURES Sury kaye Result * (ABNORMAL) Urinalysis with Microscopic if Indicated (01/04/2024 5:56 AM ELECTRONICS DEPARTMENT MANAGER) Source Urine, Urine, Midstream 01/04/2024 6:03 AM ELECTRONICS DEPARTMENT MANAGER [facility] Clarity Cloudy(A) Clear 01/04/2024 6:37 AM ELECTRONICS DEPARTMENT MANAGER [facility] Color Yellow 01/04/2024 6:37 AM ELECTRONICS DEPARTMENT MANAGER [facility] Comment: ----REFERENCE VALUE---- Colorless Yellow Veronica Blood Negative Negative 01/04/2024 6:37 AM ELECTRONICS DEPARTMENT MANAGER [facility] Nitrite Negative Negative 01/04/2024 6:37 AM ELECTRONICS DEPARTMENT MANAGER [facility] Leukocyte Esterase Negative Negative 01/04/2024 6:37 AM ELECTRONICS DEPARTMENT MANAGER [facility] Protein 30(A) mg/dL 01/04/2024 6:37 AM ELECTRONICS DEPARTMENT MANAGER [facility] Comment: ----REFERENCE VALUE---- Negative Trace Glucose Negative Negative mg/dL 01/04/2024 6:37 AM ELECTRONICS DEPARTMENT MANAGER MK[facility] Ketone Trace(A) Negative mg/dL 01/04/2024 6:37 AM ELECTRONICS DEPARTMENT MANAGER [facility] Bilirubin Negative Negative 01/04/2024 6:37 AM ELECTRONICS DEPARTMENT MANAGER [facility] pH 5.0 5.0 - 8.0 01/04/2024 6:37 AM ELECTRONICS DEPARTMENT MANAGER [facility] Specific [place] 1.014 1.001 - 1.035 01/04/2024 6:37 AM ELECTRONICS DEPARTMENT MANAGER [facility] Urobilinogen 0.2 0.2 - 1.0 mg/dL 01/04/2024 6:37 AM ELECTRONICS DEPARTMENT MANAGER [facility] Urine (Urine, Midstream) 01/04/2024 5:56 AM ELECTRONICS DEPARTMENT MANAGER 01/04/2024 6:02 AM ELECTRONICS DEPARTMENT MANAGER Jet Palomares M.D. LAB URINE ORDERABLES Fi nal Result Performing Organization Address [facility] Co de Phone Number [facility] [address] [place] [address] * Sodium, Random, Urine (01/04/2024 5:56 AM ELECTRONICS DEPARTMENT MANAGER) Sodium, Random, U 28 mmol/L 01/04/2024 6:54 AM ELECTRONICS DEPARTMENT MANAGER MK[facility] Comment: ----REFERENCE VALUE---- Random urine sodium may be interpreted in conjunction with serum sodium, using both values to calculate fractional excretion of sodium. Urine (Urine, Midstream) 01/04/2024 5:56 AM ELECTRONICS DEPARTMENT MANAGER 01/04/2024 6:01 AM ELECTRONICS DEPARTMENT MANAGER us Fausto Bey M.D. LAB URINE ORDERABLES Final Resu lt Performing Organization Address City/[facility]/ZIP Co de Phone Number [facility] [address] [place] [address] * (ABNORMAL) Microscopic Automated (01/04/2024 5:56 AM ELECTRONICS DEPARTMENT MANAGER) White Blood Cells 4-10(A) /hpf 01/04/2024 6:58 AM ELECTRONICS DEPARTMENT MANAGER MKTO Comment: ----REFERENCE VALUE---- Males: 0-3 Females: 0-10 Unknown: 0-10 Red Blood Cells None Seen 0 - 2 /hpf 01/04/2024 6:58 AM ELECTRONICS DEPARTMENT MANAGER [facility] Hyaline Casts 4-10 /lpf 01/04/2024 6:58 AM ELECTRONICS DEPARTMENT MANAGER [facility] Squamous Cells Occ-3 /hpf 01/04/2024 6:58 AM ELECTRONICS DEPARTMENT MANAGER [facility] Urine 01/04/2024 5:56 AM ELECTRONICS DEPARTMENT MANAGER 01/04/2024 6:02 AM ELECTRONICS DEPARTMENT MANAGER Jet Palomares M.D. LAB URINE ORDERABLES Fi nal Result Performing Organization Address [facility] Co de Phone Number [facility] [address] [place] [address] * (ABNORMAL) Protein/Creatinine Ratio, Random, Urine (01/04/2024 5:56 AM ELECTRONICS DEPARTMENT MANAGER) Protein, Total, Random, U 33 mg/dL 01/04/2024 6:54 AM ELECTRONICS DEPARTMENT MANAGER [facility] Creatinine, Random, U 94 16 - 326 mg/dL 01/04/2024 6:54 AM ELECTRONICS DEPARTMENT MANAGER [facility] Protein/Creati nine Ratio 0.35(H) <0.18 mg/mg 01/04/2024 6:54 AM ELECTRONICS DEPARTMENT MANAGER [facility] Urine (Urine, Midstream) 01/04/2024 5:56 AM ELECTRONICS DEPARTMENT MANAGER 01/04/2024 6:02 AM ELECTRONICS DEPARTMENT MANAGER us Jet Palomares M.D. LAB URINE ORDERABLES Fi nal Result Performing Organization Address [facility] Co de Phone Number [facility] [address] [place] [address] * (ABNORMAL) NT-Pro B-Type Natriuretic Peptide (BNP) (01/04/2024 4:56 AM ELECTRONICS DEPARTMENT MANAGER) Only the most recent of3 resultswithin the time period is included. NT-Pro BNP 5163(H) <=540 pg/mL 01/04/2024 8:20 AM ELECTRONICS DEPARTMENT MANAGER [facility] Comment: NT-proBNP values less than 300 [...] failure. Blood (Blood, Venous) 01/04/2024 4:56 AM ELECTRONICS DEPARTMENT MANAGER 01/04/2024 8:01 AM ELECTRONICS DEPARTMENT MANAGER us Portia Ramos M.D., Ph.D. LAB BLOOD ADD-ON Final Res ult Performing Organization Address [facility] Co de Phone Number [facility] [address] [place] [address] * (ABNORMAL) Iron and Total Iron-Binding Capacity (01/04/2024 4:56 AM ELECTRONICS DEPARTMENT MANAGER) Pathologist [facility] Iron 38(L) 50 - 150 mcg/dL 01/04/2024 8:32 AM ELECTRONICS DEPARTMENT MANAGER [facility] Total Iron Binding Capacity 79(L) 250 - 400 mcg/dL 01/04/2024 8:32 AM ELECTRONICS DEPARTMENT MANAGER [facility] Percent Saturation 48 14 - 50 % 01/04/2024 8:32 AM ELECTRONICS DEPARTMENT MANAGER MKTO Blood (Blood, Venous) 01/04/2024 4:56 AM ELECTRONICS DEPARTMENT MANAGER 01/04/2024 8:02 AM ELECTRONICS DEPARTMENT MANAGER us Portia Ramos M.D., Ph.D. LAB BLOOD ADD-ON Final Res ult Performing Organization Address City/[facility] Co de Phone Number [facility] [address] [place] [address], [place] [address] * Parathyroid Hormone (PTH) (01/04/2024 4:56 AM ELECTRONICS DEPARTMENT MANAGER) Parathyroid Hormone (PTH), S 43 15 - 65 pg/mL 01/04/2024 8:32 AM ELECTRONICS DEPARTMENT MANAGER [facility] Comment: Biotin has been identified by the admin assistant as a potential interfering substance. Higher concentrations of biotin may be found in multivitamins, hair/nail supplements, and workout supplements. If the result does not match clinical observations, repeat testing after patient refrains from the use of supplements for at least 12 hours. Blood (Blood, Venous) 01/04/2024 4:56 AM ELECTRONICS DEPARTMENT MANAGER 01/04/2024 8:02 AM ELECTRONICS DEPARTMENT MANAGER us Portia Ramos M.D., Ph.D. LAB BLOOD ADD-ON Final Res ult Performing Organization Address [facility] de Phone Number [facility] [address] [place] [address], [place] [address] * (ABNORMAL) Ferritin (01/04/2024 4:56 AM ELECTRONICS DEPARTMENT MANAGER) Ferritin, S 1703(H) 31 - 409 mcg/L 01/04/2024 8:32 AM ELECTRONICS DEPARTMENT MANAGER [facility] Comment: Biotin has been identified by the admin assistant as a potential interfering substance. Higher concentrations of biotin may be found in multivitamins, hair/nail supplements, and workout supplements. If the result does not match clinical observations, repeat testing after patient refrains from the use of supplements for at least 12 hours. Blood (Blood, Venous) 01/04/2024 4:56 AM ELECTRONICS DEPARTMENT MANAGER 01/04/2024 8:02 AM ELECTRONICS DEPARTMENT MANAGER us Portia Ramos M.D., Ph.D. LAB BLOOD ADD-ON Final Res ult Performing Organization Address [facility] Co de Phone Number [facility] [address] [place] [address], [place] [id number] * US Thoracentesis Right with Imaging Guidance (01/03/2024 5:04 PM ELECTRONICS DEPARTMENT MANAGER) Anatomical Region Laterality Modality Chest, Ultrasound RST LOS, U ltrasound ARZ LOS, Procedure FLA LOS, Abdominal FLA LOS, Procedural, Procedural NWWI LOS Right Ultrasound Impressions 01/04/2024 8:03 AM ELECTRONICS DEPARTMENT MANAGER Successful ultrasound guided diagnostic and therapeutic right thoracentesis. Narrative 01/04/2024 8:03 AM ELECTRONICS DEPARTMENT MANAGER EXAM: US THORACENTESIS RIGHT WITH IMAGING GUIDANCE PROCEDURE: Sterile; 1% lidocaine for local anesthesia. Location: Right pleural space Needle size: 5 Fr Yueh Fluid Amount/Color: 150 mL of white/hubbrad opaque fluid removed Complications: None. Laboratory: Results [...] medications. Patient education provided by the care prepared foods team leader. Ready to learn, no apparent [...] medications. Patient education provided by the care prepared foods team leader. Ready to learn, no apparent learningbarriers were identified. Post-procedure care explained; patient expressedunderstanding of the content. IMPRESSION: Successful ultrasound guided diagnostic and therapeutic rightthoracentesis. us Octavio Cavazos, Ch.B. IMG US PROCEDURES Final Result * Bacteria / Alix Culture, Blood #1 (01/03/2024 10:53 AM ELECTRONICS DEPARTMENT MANAGER) Only the most recent of2 resultswithin the time period is included. Bacteria/Nereida da Culture, Blood No growth after 5 day/s of incubation. 01/08/2024 11:05 AM ELECTRONICS DEPARTMENT MANAGER [facility] Blood (Blood, Peripheral Draw) 01/03/2024 10:53 AM ELECTRONICS DEPARTMENT MANAGER 01/03/2024 10:58 AM ELECTRONICS DEPARTMENT MANAGER Comment:Specimen Source Site : Blood Octavio Cavazos, Ch.B. LAB MICROBIOLOGY - GENERAL ORDERABLES Final Result Performing Organization Address City/[facility]/ZIP Co de Phone Number [facility] [address] [place] [address], [facility] [place] [address] * Lactate for Sepsis with Reflex (01/03/2024 10:52 AM ELECTRONICS DEPARTMENT MANAGER) Lactate, B 1.1 0.5 - 2.2 mmol/L 01/03/2024 11:01 AM ELECTRONICS DEPARTMENT MANAGER [facility] Blood (Blood, Venous) 01/03/2024 10:52 AM ELECTRONICS DEPARTMENT MANAGER 01/03/2024 10:58 AM ELECTRONICS DEPARTMENT MANAGER Octavio Cavazos, Ch.B. LAB BLOOD NON ADD- ON Final Result [facility] [address] [place] [address], [place] [address] * (ABNORMAL) Albumin (01/03/2024 10:51 AM ELECTRONICS DEPARTMENT MANAGER) Only the most recent of2 resultswithin the time period is included. [facility] Albumin, P 3.0(L) 3.5 - 5.0 g/dL 01/03/2024 1:15 PM ELECTRONICS DEPARTMENT MANAGER [facility] Blood (Blood, Venous) 01/03/2024 10:51 AM ELECTRONICS DEPARTMENT MANAGER 01/03/2024 1:02 PM ELECTRONICS DEPARTMENT MANAGER Jet Palomares M.D. LAB BLOOD ADD-ON Final Result Performing Organization Address [facility] Co de Phone Number [facility] [address] [place] [address], [place] [address] * pH (01/03/2024 6:42 AM ELECTRONICS DEPARTMENT MANAGER) Only the most recent of2 resultswithin the time period is included. [facility] pH 7.43 7.35 - 7.45 pH 01/03/2024 7:00 AM ELECTRONICS DEPARTMENT MANAGER [facility] Blood 01/03/2024 6:42 AM ELECTRONICS DEPARTMENT MANAGER 01/03/2024 6:55 AM ELECTRONICS DEPARTMENT MANAGER us Deanna Lewis APRN, C.N.P., D.N.P., M.S.N. LAB H ISTORICAL ORDERS Final Result Performing Organization Address [facility] Co de Phone Number [facility] [address] [place] [address], [place] [address] * (ABNORMAL) QuantiFERON-Tb Gold Plus, Blood (01/03/2024 6:42 AM ELECTRONICS DEPARTMENT MANAGER) [facility] QuantiFERON-TB Gold Plus Result Indetermi parviz(A) Negative 01/07/2024 2:48 PM ELECTRONICS DEPARTMENT MANAGER [facility] Comment: Indeterminate due to a low interferon-gamma level in the mitogen (positive control) tube. This may occur due to a low lymphocyte count, reduced lymphocyte activity or inability of the patient's lymphocytes to generate interferon-gamma. The reference range for the 'Mitogen minus Nil Result' is >=0.5 IU/mL. TB1 Ag minus Nil Result 0.00 IU/mL 01/07/2024 2:48 PM ELECTRONICS DEPARTMENT MANAGER [facility] TB2 Ag minus Nil Result 0.00 IU/mL 01/07/2024 2:48 PM ELECTRONICS DEPARTMENT MANAGER [facility] Mitogen minus Nil Result 0.01 IU/mL 01/07/2024 2:48 PM ELECTRONICS DEPARTMENT MANAGER [facility] Nil Result 0.04 IU/mL 01/07/2024 2:48 PM ELECTRONICS DEPARTMENT MANAGER [facility] Blood (Blood, Venous) 01/03/2024 6:42 AM ELECTRONICS DEPARTMENT MANAGER 01/04/2024 10:57 AM ELECTRONICS DEPARTMENT MANAGER Narrative [facility] - 01/07/2024 2:48 PM ELECTRONICS DEPARTMENT MANAGER Specimen Information: Specimen ID: [id number] Specimen Type: Blood Specimen Collection Start Date: 01/03/2024 6:42 AM Specimen Received Date: 01/04/2024 10:57 AM Specimen ID: [id number] Specimen Type: Blood Specimen Collection Start Date: 01/03/2024 6:42 AM Specimen Received Date: 01/04/2024 10:57 AM Specimen ID: [id number] Specimen Type: Blood Specimen Collection Start Date: 01/03/2024 6:42 AM Specimen Received Date: 01/04/2024 10:57 AM Specimen ID: [id number] Specimen Type: Blood Specimen Collection Start Date: 01/03/2024 6:42 AM Specimen Received Date: 01/04/2024 10:57 AM us Jet Palomares M.D. LAB MICROBIOLOGY - BLOO D ORDERABLES Final Result [facility] [address] [place] [id number] [address] [address] * Vitamin D, Immunoassay, Total, Serum (01/03/2024 6:42 AM ELECTRONICS DEPARTMENT MANAGER) Vitamin D, Immunoassay, Total, S 23 20 - 80 ng/mL 01/04/2024 8:37 AM ELECTRONICS DEPARTMENT MANAGER [facility] Comment: Optimum levels within the healthy population are 20-50, patients with bone disease may benefit from high levels within this range Blood (Blood, Venous) 01/03/2024 6:42 AM ELECTRONICS DEPARTMENT MANAGER 01/04/2024 8:02 AM ELECTRONICS DEPARTMENT MANAGER us Portia Ramos M.D., Ph.D. LAB BLOOD ADD-ON Final Res ult [facility] [address] [place] [address], [place] [address] * HBc Total Ab, Serum (01/03/2024 6:42 AM ELECTRONICS DEPARTMENT MANAGER) Pathologist [facility] HBc Total Ab, S Negative Negative 01/04/2024 11:52 AM ELECTRONICS DEPARTMENT MANAGER [facility] Blood (Blood, Peripheral Draw) 01/03/2024 6:42 AM ELECTRONICS DEPARTMENT MANAGER 01/04/2024 7:28 AM ELECTRONICS DEPARTMENT MANAGER us Jet Palomares M.D. LAB MICROBIOLOGY - BLOO D ORDERABLES Final Result [facility] [address] [place] [address] [facility] [address] [place] [address] * HBs Antibody, Serum (01/03/2024 6:42 AM ELECTRONICS DEPARTMENT MANAGER) HBs Antibody, S Negative 7:57 AM ELECTRONICS DEPARTMENT MANAGER [facility] Comment: Patient is presumed NOT to be immune to infection with HBV. Consumption of high-dose biotin supplement within 12 hours of blood collection for this test can cause false-negative results. ----REFERENCE VALUE---- Unvaccinated: Negative Vaccinated: Positive HBs Antibody, Quantitative, S <3.50 mIU/mL 01/03/2024 7:57 AM ELECTRONICS DEPARTMENT MANAGER [facility] Comment: ----REFERENCE VALUE---- <8.50: Negative 8.50-11.49: Indeterminate >=11.50: Positive Blood (Blood, Peripheral Draw) 01/03/2024 6:42 AM ELECTRONICS DEPARTMENT MANAGER 01/03/2024 6:55 AM ELECTRONICS DEPARTMENT MANAGER Jet Palomares M.D. LAB MICROBIOLOGY - BLOO D ORDERABLES Final Result Performing Organization Address City/[facility]/[place] [address], [place] [address] * Hepatitis B Surface Antigen (01/03/2024 6:42 AM ELECTRONICS DEPARTMENT MANAGER) HBs Antigen, S Nonreactive Nonreactive 01/03/2024 8:07 AM ELECTRONICS DEPARTMENT MANAGER [facility] Blood (Blood, Peripheral Draw) 01/03/2024 6:42 AM ELECTRONICS DEPARTMENT MANAGER 01/03/2024 6:55 AM ELECTRONICS DEPARTMENT MANAGER Jet Palomares M.D. LAB MICROBIOLOGY - BLOO D ORDERABLES Final Result Performing Organization Address City/[facility] Co de Phone Number [facility] [address] [place] [address], [place] [address] * (ABNORMAL) Calcium, Ionized (01/03/2024 6:42 AM ELECTRONICS DEPARTMENT MANAGER) Only the most recent of2 resultswithin the time period is included. Calcium, Ionized, B 4.31(L) 4.65 - 5.30 mg/dL 01/03/2024 7:00 AM ELECTRONICS DEPARTMENT MANAGER [facility] Blood 01/03/2024 6:42 AM ELECTRONICS DEPARTMENT MANAGER 01/03/2024 6:55 AM ELECTRONICS DEPARTMENT MANAGER us Deanna Lewis APRN C.N.P., D.N.P., M.S.N. LAB B LOOD NON ADD-ON Final Result Performing Organization Address City/[facility]/ZIP Co de Phone Number [facility] [address] [place] [address], [facility] MK[facility] [place] [address] [place] [address] * (ABNORMAL) Broad Range Bacteria PCR + Sequencing (01/03/2024 6:10 AM ELECTRONICS DEPARTMENT MANAGER) [facility] Broad Range Bacteria PCR+Sequenci ng This test was developed and its performance characteristics determined by [facility] in a manner consistent with CLIA requirements. This test has not been cleared or approved by the U.S. Food and Drug Administration. (A) 01/12/2024 9:31 AM ELECTRONICS DEPARTMENT MANAGER [facility] Broad Range Bacteria PCR+Sequenci ng STREPTOCOCCUS INTERMEDIUS DNA detected (A) 01/12/2024 9:31 AM ELECTRONICS DEPARTMENT MANAGER [facility] Comment:Semi-Urgent Result. Semi-Urgent This is a semi-urgent result(AUGUSTE) [facility] Fluid (Pleural Fluid, Right) 01/03/2024 6:10 AM ELECTRONICS DEPARTMENT MANAGER 01/04/2024 10:00 AM ELECTRONICS DEPARTMENT MANAGER Comment:Specimen Source Site : Fluid us Octavio Cavazos, Ch.B. LAB MICROBIOLOGY - GENERAL ORDERABLES Final Result Performing Organization Address City/[facility] Co de Phone Number [facility] [address] [place] [address], [facility] DTL [facility] [address] [place] [address] * Leukemia/Lymphoma Immunophenotyping by Flow Cytometry (01/03/2024 6:10 AM ELECTRONICS DEPARTMENT MANAGER) [facility] [facility] LCMS Result Performed 01/05/2024 1:37 PM ELECTRONICS DEPARTMENT MANAGER DTL Final Diagnosis: Pleural fluid, flow cytometric immunophenotyp ing: No monotypic B-cell population or increase in blasts identified. Reviewed by: Blank Crisostomo M.D. 01/05/2024 1:37 PM ELECTRONICS DEPARTMENT MANAGER DTL Special Studies: Results: Blasts: Not increased by CD45/side scatter and CD34. B-cells: Absence of SP84-efrdeame B cells. B-cell markers tested: CD19, CD10 and kappa and lambda surface light chains. T-cells/NK-joelle ls: No aberrant phenotype by CD3 and CD16. Quality assessment: Specimen received within validated guidelines. 01/05/2024 1:37 PM ELECTRONICS DEPARTMENT MANAGER DTL Microscopic Description A Hu-Giemsa- stained slide prepared from the flow cytometry specimen is examined. Morphology is suboptimal. 01/05/2024 1:37 PM ELECTRONICS DEPARTMENT MANAGER DTL Comment: ----ADDITIONAL INFORMATION---- This test was developed using an analyte specific reagent. Its performance characteristics were determined by [facility] in a manner consistent with CLIA requirements. This test has not been cleared or approved by the U.S. Food and Drug Administration. Fluid (Pleural Fluid, Right) 01/03/2024 6:10 AM ELECTRONICS DEPARTMENT MANAGER 01/04/2024 8:57 AM ELECTRONICS DEPARTMENT MANAGER us Octavio Cavzaos, Ch.B. LAB GENETIC TESTIN G Final Result [facility] [address] [place] [address], [facility] [address] [place] [address] * M tuberculosis Complex PCR (01/03/2024 6:10 AM ELECTRONICS DEPARTMENT MANAGER) MTB Complex PCR, Specimen Source Fluid, Pleural Fluid, Right 01/06/2024 7:45 PM ELECTRONICS DEPARTMENT MANAGER DTL MTB Complex PCR, Result Negative Not Applicable 01/06/2024 7:45 PM ELECTRONICS DEPARTMENT MANAGER DTL Comment: A mycobacterial culture must always [...] its performance characteristics determined by [facility] in a manner consistent with CLIA requirements. This test has not been cleared or approved by the U.S. Food and Drug Administration. Fluid (Pleural Fluid, Right) 01/03/2024 6:10 AM ELECTRONICS DEPARTMENT MANAGER 01/04/2024 10:24 AM ELECTRONICS DEPARTMENT MANAGER Octavio Cavazos, Ch.B. LAB MICROBIOLOGY - GENERAL ORDERABLES Final Result Performing Organization Address [facility] Co de Phone Number [facility] [address] [place] [address] * Cholesterol, Body Fluid (01/03/2024 6:10 AM ELECTRONICS DEPARTMENT MANAGER) Cholesterol, BF 34 See Comment mg/dL 01/05/2024 8:47 AM ELECTRONICS DEPARTMENT MANAGER DTL Comment: ----ADDITIONAL INFORMATION---- Pleural fluid cholesterol concentrations > 45 to 65 mg/dL are consistent with exudative effusions. Cholesterol concentrations > 200 mg/dL suggest pseudochylous effusions. Peritoneal fluid cholesterol concentrations > 32 to 70 mg/dL suggest a malignant cause of ascites. All other fluids refer to http://www.[employer].com for further interpretive information. This test has been modified from the admin assistant's instructions. Its performance characteristics were determined by [facility] in a manner consistent with CLIA requirements. This test has not been cleared or approved by the U.S. Food and Drug Administration. Fluid Type Pleural 01/05/2024 8:14 AM ELECTRONICS DEPARTMENT MANAGER DTL Fluid (Pleural Fluid, Right) 01/03/2024 6:10 AM ELECTRONICS DEPARTMENT MANAGER 01/05/2024 7:49 AM ELECTRONICS DEPARTMENT MANAGER us Octavio Cavazos, Ch.B. LAB BODY FLUIDS AN D STOOLS ORDERABLES Final Result Performing Organization Address [facility]/ZIP Co de Phone Number [facility] [address] [place] [address], [facility] [address] [place] [address] * NM INS NON-BLAINE CVC >5YR, NM US GUIDE VASC ACCESS, LDA ANE CENTRAL LINE DOUBLE LUMEN ADULT, MC ANE CENTRAL LINE GENERIC PERFORMABLE (01/02/2024 3:47 PM ELECTRONICS DEPARTMENT MANAGER) Nikki Bentley M.D. - 01/02/2024 3:47 PM ELECTRONICS DEPARTMENT MANAGER Nikki Salinas M.D. 01/02/2024 3:50 PM Invasive [...] Image-General Surgery Image Exam (01/02/2024 3:30 PM ELECTRONICS DEPARTMENT MANAGER) Narrative IIMS - 01/06/2024 8:53 PM ELECTRONICS DEPARTMENT MANAGER This order has been created and auto-finalized to support the import of images acquired without order. The clinical documentation to support these images can be found on the encounter that produced images. us Provider Not In System IMG NON RAD IMAGING PROCE DURES Final Result IIME NA * US Kidneys Bilateral with Bladder (01/02/2024 10:15 AM ELECTRONICS DEPARTMENT MANAGER) Anatomical Region Laterality Modality Abdomen, Renal, Ultrasound R ST LOS, Ultrasound ARZ LOS, Ultrasound FLA LOS Bilateral Ultrasound Impressions 01/02/2024 10:57 AM ELECTRONICS DEPARTMENT MANAGER 1. No hydronephrosis. 2. Bilateral simple appearing renal cysts. Narrative 01/02/2024 10:57 AM ELECTRONICS DEPARTMENT MANAGER EXAM: US KIDNEYS BILATERAL WITH BLADDER COMPARISON: [...] * CK (Creatine Kinase) (01/02/2024 4:10 AM ELECTRONICS DEPARTMENT MANAGER) Creatine Kinase, P 78 39 - 308 U/L 01/02/2024 9:49 AM ELECTRONICS DEPARTMENT MANAGER TO Blood (Blood, Venous) 01/02/2024 4:10 AM ELECTRONICS DEPARTMENT MANAGER 01/02/2024 9:30 AM ELECTRONICS DEPARTMENT MANAGER Jet Palomares M.D. LAB BLOOD ADD-ON Final Result Performing Organization Address [facility]/ZIP Co de Phone Number [facility] [address] [place] [address] [place] [address] * Lactate, B (01/02/2024 3:41 AM ELECTRONICS DEPARTMENT MANAGER) Lactate, B 0.8 0.5 - 2.2 mmol/L 01/02/2024 4:47 AM ELECTRONICS DEPARTMENT MANAGER TO Blood (Blood, Venous) 01/02/2024 3:41 AM ELECTRONICS DEPARTMENT MANAGER 01/02/2024 4:45 AM ELECTRONICS DEPARTMENT MANAGER Deanna Lewis APRN, C.N.P., D.N.P., M.S.N. LAB B LOOD NON ADD-ON Final Result [facility] [address] [place] [address], [facility] [address] [place] [id number] * (ABNORMAL) Osmolality (01/02/2024 3:41 AM ELECTRONICS DEPARTMENT MANAGER) Osmolality, S 338(H) 276 - 306 mOsm/kg 01/02/2024 5:40 AM ELECTRONICS DEPARTMENT MANAGER MKTO Blood (Blood, Venous) 01/02/2024 3:41 AM ELECTRONICS DEPARTMENT MANAGER 01/02/2024 4:05 AM ELECTRONICS DEPARTMENT MANAGER us Fausto Bey M.D. LAB BLOOD ADD-ON Final Result [facility] [address] [place] [address], [address] [address] * (ABNORMAL) Blood Gas with Coox, Venous (01/02/2024 3:41 AM ELECTRONICS DEPARTMENT MANAGER) pO2, Venous 49 Not applicable mm Hg 01/02/2024 4:14 AM ELECTRONICS DEPARTMENT MANAGER MKTO pCO2, Venous 29(L) 41 - 51 mm Hg 4:14 AM ELECTRONICS DEPARTMENT MANAGER MKTO pH, Venous 7.29(L) 7.32 - 7.43 pH 01/02/2024 4:14 AM ELECTRONICS DEPARTMENT MANAGER MKTO Base Excess, Venous -12 Not applicable mmol/L 01/02/2024 4:14 AM ELECTRONICS DEPARTMENT MANAGER MKTO HCO3, Venous 13 Not applicable mmol/L 01/02/2024 4:14 AM ELECTRONICS DEPARTMENT MANAGER MKTO Hemoglobin, Venous 9.6(L) 13.2 - 16.6 g/dL 01/02/2024 4:14 AM ELECTRONICS DEPARTMENT MANAGER MKTO O2Hb, Venous 79.4 Not applicable % 01/02/2024 4:14 AM ELECTRONICS DEPARTMENT MANAGER MKTO COHb, Venous 0.2 <3.0 % 01/02/2024 4:14 AM ELECTRONICS DEPARTMENT MANAGER MKTO MetHb, Venous 1.2 <1.5 % 01/02/2024 4:14 AM ELECTRONICS DEPARTMENT MANAGER MKTO CtO2, Venous 10.8 Not Applicable vol % 01/02/2024 4:14 AM ELECTRONICS DEPARTMENT MANAGER MKTO Blood (Blood, Venous) 01/02/2024 3:41 AM ELECTRONICS DEPARTMENT MANAGER 01/02/2024 4:05 AM ELECTRONICS DEPARTMENT MANAGER us Fausto Bey M.D. LAB BLOOD NON ADD-ON Final Resu lt Performing Organization Address [facility] Co de Phone Number [facility] [address] [place] [address], [facility] MKTO [facility] [place] [address] [place] [address] * CT HEAD/BRAIN WO CON-Outside CT Neuro (01/01/2024 2:20 PM ELECTRONICS DEPARTMENT MANAGER) 01/01/2024 2:17 PM ELECTRONICS DEPARTMENT MANAGER Narrative IIMS - 01/01/2024 3:56 PM ELECTRONICS DEPARTMENT MANAGER This order has been created and auto-finalized [...] PROCEDURES Final R esult Performing Organization Address [facility] de Phone Number IIMS NA from Last 3 Months Insurance [facility] Advance Directives For more information, please contact: [phone] * DNR/DNI (Latest Code Status on File) Date Activated Date Inactivated Comments 01/01/2024 9:20 PM 01/11/2024 6:43 PM Question Answer Comments DNR/DNI (Do Not Resuscitate/Do Not Intubate): [employer] [facility] Care [employer] Computer Systems 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
--- OUTSIDE RECORDS SUMMARY | 2024-01-26 10:53 | XMS_ITS | Referral Summary ---
Author Organization [facility] Address [address] [place] [address] Care Team Providers Care Transportation Department Supervisor Name Role Phone Elsewhere, Pcp Primary Care Provider Unavailabl e Source Comments Patient records contain information from all sites at [facility]. For routine questions regarding patient records, call [phone] during business hours, M-F 8:00 AM - 5:00 PM Central Time. Record requests for emergency care only can be directed to [phone] at any time.[facility] Encounters Date Type Department Care Team Description 01/25/2024 Clinical Communication Department of Infectious Diseases in [address] [phone] Sarah Perry M.D. Order Request 01/22/2024 Clinical Communication Department of Infectious Diseases in [address] [address] Letty Sneed R.N. Continuing Care Plan (CT of chest with contrast) 01/15/2024 Clinical Communication Department of Infectious Diseases in [address] [phone] Ceci Cates R.N. Appointment (Lab visit) 01/13/2024 Clinical Communication Department of Infectious Diseases in [address] [phone] Sarah Perry M.D. 01/01/2024 8:59 PM SENIOR MARKET RESEARCH ANALYST - 01/11/2024 4:43 PM SENIOR MARKET RESEARCH ANALYST Hospital Encounter [employer], [facility], Fourth Floor [address] [place] [phone] Frank Mccall M.D. Octavio Morton M.B., .B. Jeremías Fernandez M.D. Chapito Velazquez D.O. Khan, Saad S, M.D. Empyema Pleural (HCC) (Primary Dx); Failure Renal Acute (Acute Kidney Injury) (HCC); Pneumonia Discharge Disposition: Home or Self Care 01/08/2024 Clinical Communication Department of Infectious Diseases in [address] [phone] Letty Sneed R.N. 01/08/2024 Orders Only Department of Infectious Diseases in [address] [phone] Letty Sneed, R.N. Pneumonia (Primary Dx) 01/07/2024 Clinical Communication Department of Infectious Diseases in [address] [phone] Stacy Esposito RTessa. 01/04/2024 7:40 PM SENIOR MARKET RESEARCH ANALYST Ancillary Procedure Department of Nursing 01/02/2024 3:30 PM SENIOR MARKET RESEARCH ANALYST Ancillary Procedure Department of General Surgery 01/01/2024 [...] Med Name: Prostate Complete Zinc, Selenium, Saw [place], Lycopene, Turmeric, Resveratrol, Pomegranate Active gabapentin (Neurontin) [...] 15 days. 30 tablet 4 024 Discontin ued(Reord er) Active Problems Problem Noted Date Diagnosed Date Failure Renal Acute (Acute Kidney Injury) 2023 Pneumonia 01/01/2024 Mass Lung 01/01/2024 Hyponatremia 01/01/2024 Hypokalemia 01/01/2024 Immunizations Name Administration Dates Next Due influenza trivalent high dose (HD)(PF) (Deferred: Other) Social History Tobacco Use Types Packs/Day Years Used Date Smoking Tobacco: Never Passive Smoke Exposure: Never Smokeless Tobacco: Never Tobacco Cessation:Counseling Given: No [facility] Ads-Fi[employer] Answer Date Recorded In the past 12 months has [facility] Focus, gas, oil, or water [employer] threatened to shut off services in your [...] your living situation today? I have a [facility] place to live 01/10/2024 Sex and Gender Information Value Date Recorded Sex Assigned at Not on file Legal Sex Male 3:31 PM SENIOR MARKET RESEARCH ANALYST Gender Identity Not on file Sexual Orientation Not on file Last Filed Vital Signs Vital Sign Reading Time Taken Comments Blood Pressure 111/62 01/11/2024 2:37 PM SENIOR MARKET RESEARCH ANALYST Pulse 122 01/11/2024 2:37 PM SENIOR MARKET RESEARCH ANALYST Temperature 36.5 C (97.7 F) 01/11/2024 2:37 PM SENIOR MARKET RESEARCH ANALYST Respiratory Rate 26 01/11/2024 2:37 PM SENIOR MARKET RESEARCH ANALYST Oxygen Saturation 97% 01/11/2024 2:37 PM SENIOR MARKET RESEARCH ANALYST Inhaled Oxygen Concentration - - Weight 39.9 kg (87 lb 15.4 oz) 01/11/2024 2:12 A M SENIOR MARKET RESEARCH ANALYST Height 170.2 cm (5' 7) 01/01/2024 9:10 PM SENIOR MARKET RESEARCH ANALYST Body Mass Index 13.78 01/01/2024 9:10 PM SENIOR MARKET RESEARCH ANALYST Plan of Treatment Not on file Procedures Procedure Name Priority Date/Time Associated Diagnosis Comments OUTSIDE CT BODY Routine 01/22/2024 11:00 AM SENIOR MARKET RESEARCH ANALYST FL SWALLOW FUNCTION WITH VIDEO AND SPEECH RAD - Routine (most inpatients and all outpatients) 01/11/2024 1:48 PM SENIOR MARKET RESEARCH ANALYST TESTING LOCATION Timed 01/11/2024 11:5 1 AM SENIOR MARKET RESEARCH ANALYST TYPE AND SCREEN Timed 01/11/2024 11:51 AM SENIOR MARKET RESEARCH ANALYST HEMOGLOBIN, B Timed 01/11/2024 11:51 AM SENIOR MARKET RESEARCH ANALYST DX CHEST PORTABLE 1 VIEW RAD - Routine (most inpatients and all outpatients) 01/11/2024 6:54 AM SENIOR MARKET RESEARCH ANALYST PHOSPHORUS (INORGANIC), S Routine 01/11/2024 4:48 AM SENIOR MARKET RESEARCH ANALYST MAGNESIUM, S Routine 01/11/2024 4:48 AM SENIOR MARKET RESEARCH ANALYST BASIC METABOLIC PANEL, S/P Routine 01/11/2024 4:48 AM SENIOR MARKET RESEARCH ANALYST CBC WITH DIFFERENTIAL, B Routine 01/11/2024 4:48 AM SENIOR MARKET RESEARCH ANALYST HEPATIC FUNCTION PANEL, S Routine 01/11/2024 4:48 AM SENIOR MARKET RESEARCH ANALYST DX CHEST PORTABLE 1 VIEW RAD - Routine (most inpatients and all outpatients) 01/10/2024 6:50 AM SENIOR MARKET RESEARCH ANALYST PHOSPHORUS (INORGANIC), S Routine 01/10/2024 6:25 AM SENIOR MARKET RESEARCH ANALYST MAGNESIUM, S Routine 01/10/2024 6:25 AM SENIOR MARKET RESEARCH ANALYST BASIC METABOLIC PANEL, S/P Routine 01/10/2024 6:25 AM SENIOR MARKET RESEARCH ANALYST CBC WITH DIFFERENTIAL, B Routine 01/10/2024 6:25 AM SENIOR MARKET RESEARCH ANALYST HEPATIC FUNCTION PANEL, S Routine 01/10/2024 6:25 AM SENIOR MARKET RESEARCH ANALYST DX CHEST PORTABLE 1 VIEW RAD - Routine (most inpatients and all outpatients) 01/09/2024 6:50 AM SENIOR MARKET RESEARCH ANALYST MORPHOLOGY EVALUATION Routine 01/09/2024 6:42 AM SENIOR MARKET RESEARCH ANALYST MANUAL DIFFERENTIAL, B Routine 01/09/2024 6:42 AM SENIOR MARKET RESEARCH ANALYST PHOSPHORUS (INORGANIC), S Routine 01/09/2024 6:42 AM SENIOR MARKET RESEARCH ANALYST MAGNESIUM, S Routine 01/09/2024 6:42 AM SENIOR MARKET RESEARCH ANALYST BASIC METABOLIC PANEL, S/P Routine 01/09/2024 6:42 AM SENIOR MARKET RESEARCH ANALYST CBC WITH DIFFERENTIAL, B Routine 01/09/2024 6:42 AM SENIOR MARKET RESEARCH ANALYST HEPATIC FUNCTION PANEL, S Routine 01/09/2024 6:42 AM SENIOR MARKET RESEARCH ANALYST CT CHEST WITHOUT IV CONTRAST RAD - Routine (most inpatients and all outpatients) 01/08/2024 1:11 PM SENIOR MARKET RESEARCH ANALYST DX CHEST 1 VIEW RAD - Routine (most inpatients and all outpatients) 01/08/2024 7:16 AM SENIOR MARKET RESEARCH ANALYST MORPHOLOGY EVALUATION Routine 01/08/2024 4:47 AM SENIOR MARKET RESEARCH ANALYST MANUAL DIFFERENTIAL, B Routine 01/08/2024 4:47 AM SENIOR MARKET RESEARCH ANALYST PHOSPHORUS (INORGANIC), S Routine 01/08/2024 4:47 AM SENIOR MARKET RESEARCH ANALYST MAGNESIUM, S Routine 01/08/2024 4:47 AM SENIOR MARKET RESEARCH ANALYST BASIC METABOLIC PANEL, S/P Routine 01/08/2024 4:47 AM SENIOR MARKET RESEARCH ANALYST CBC WITH DIFFERENTIAL, B Routine 01/08/2024 4:47 AM SENIOR MARKET RESEARCH ANALYST HEPATIC FUNCTION PANEL, S Routine 01/08/2024 4:47 AM SENIOR MARKET RESEARCH ANALYST HEMOGLOBIN, B Timed 01/07/2024 3:50 PM SENIOR MARKET RESEARCH ANALYST DX CHEST 1 VIEW RAD - Routine (most inpatients and all outpatients) 01/07/2024 7:14 AM SENIOR MARKET RESEARCH ANALYST MORPHOLOGY EVALUATION Routine 01/07/2024 5:29 AM SENIOR MARKET RESEARCH ANALYST PHOSPHORUS (INORGANIC), S Routine 01/07/2024 5:29 AM SENIOR MARKET RESEARCH ANALYST MAGNESIUM, S Routine 01/07/2024 5:29 AM SENIOR MARKET RESEARCH ANALYST BASIC METABOLIC PANEL, S/P Routine 01/07/2024 5:29 AM SENIOR MARKET RESEARCH ANALYST CBC WITH DIFFERENTIAL, B Routine 01/07/2024 5:29 AM SENIOR MARKET RESEARCH ANALYST HEPATIC FUNCTION PANEL, S Routine 01/07/2024 5:29 AM SENIOR MARKET RESEARCH ANALYST MISCELLANEOUS SENT OUT LAB TEST Routine 01/06/2024 11:36 AM SENIOR MARKET RESEARCH ANALYST TROPHERYMA WHIPPLEI PCR, B Routine 01/06/2024 11:36 AM SENIOR MARKET RESEARCH ANALYST HC REF INF DIS DNA/PCR/NGS SEQ Routine 01/06/2024 10:59 AM SENIOR MARKET RESEARCH ANALYST DX CHEST 1 VIEW RAD - Routine (most inpatients and all outpatients) 01/06/2024 7:19 AM SENIOR MARKET RESEARCH ANALYST MORPHOLOGY EVALUATION Timed 01/06/2024 5:37 AM SENIOR MARKET RESEARCH ANALYST MANUAL DIFFERENTIAL, B Timed 01/06/2024 5:37 AM SENIOR MARKET RESEARCH ANALYST MAGNESIUM, S Timed 01/06/2024 5:37 AM SENIOR MARKET RESEARCH ANALYST CBC WITH DIFFERENTIAL, B Timed 01/06/2024 5:37 AM SENIOR MARKET RESEARCH ANALYST RENAL FUNCTION PANEL, S Timed 01/06/2024 5:37 AM SENIOR MARKET RESEARCH ANALYST ECG STAT 01/06/2024 5:32 AM SENIOR MARKET RESEARCH ANALYST IR CHEST TUBE PLACEMENT RAD - Routine (most inpatients and all outpatients) 01/05/2024 1:42 PM SENIOR MARKET RESEARCH ANALYST CYTOLOGY NON-HEAD BUCKER Routine 01/05/2024 12:5 0 PM SENIOR MARKET RESEARCH ANALYST GLUCOSE, BODY FLUID Timed 01/05/2024 1 2:50 PM SENIOR MARKET RESEARCH ANALYST TRIGLYCERIDES, BF Timed 01/05/2024 12: 50 PM SENIOR MARKET RESEARCH ANALYST PROTEIN, TOTAL, BF Timed 01/05/2024 12 :50 PM SENIOR MARKET RESEARCH ANALYST PH, PLEURAL FLUID Timed 01/05/2024 12: 50 PM SENIOR MARKET RESEARCH ANALYST LACTATE DEHYDROGENASE (LD), BF Timed 01/05/2024 12:50 PM SENIOR MARKET RESEARCH ANALYST CELL COUNT AND DIFFERENTIAL, BF Timed 01/05/2024 12:50 PM SENIOR MARKET RESEARCH ANALYST BACTERIAL CULTURE, ANAEROBIC + SUSC Timed 01/05/2024 12:50 PM SENIOR MARKET RESEARCH ANALYST GRAM STAIN Timed 01/05/2024 12:50 PM SENIOR MARKET RESEARCH ANALYST BACTERIAL CULTURE, AEROBIC + SUSC Timed 01/05/2024 12:50 PM SENIOR MARKET RESEARCH ANALYST MORPHOLOGY EVALUATION Routine 01/05/2024 5:52 AM SENIOR MARKET RESEARCH ANALYST MANUAL DIFFERENTIAL, B Routine 01/05/2024 5:52 AM SENIOR MARKET RESEARCH ANALYST BASIC METABOLIC PANEL, S/P Routine 01/05/2024 5:52 AM SENIOR MARKET RESEARCH ANALYST CBC WITH DIFFERENTIAL, B Routine 01/05/2024 5:52 AM SENIOR MARKET RESEARCH ANALYST PNEUMONIA PANEL, PCR Routine 01/04/2024 7:45 PM SENIOR MARKET RESEARCH ANALYST GRAM STAIN Routine 01/04/2024 7:45 PM SENIOR MARKET RESEARCH ANALYST BACTERIAL CULTURE, AEROBIC + SUSC, RESP Routine 01/04/2024 7:45 PM SENIOR MARKET RESEARCH ANALYST NASAL SCREEN FOR MRSA BY RAPID PCR Routine 01/04/2024 7:45 PM SENIOR MARKET RESEARCH ANALYST NURSING IMAGE EXAM Routine 01/04/2024 7: 40 PM SENIOR MARKET RESEARCH ANALYST (TTE) 2D ECHO DOPPLER COLOR AND CONTRAST Routine 01/04/2024 10:38 AM SENIOR MARKET RESEARCH ANALYST HC URINALYSIS AUTO WO MICRO Routine 01/04/2024 5:56 AM SENIOR MARKET RESEARCH ANALYST PROTEIN/CREATININE RATIO, RANDOM, URINE Routine 01/04/2024 5:56 AM SENIOR MARKET RESEARCH ANALYST URINALYSIS WITH MICROSCOPIC IF INDICATED, U Routine 01/04/2024 5:56 AM SENIOR MARKET RESEARCH ANALYST SODIUM, RANDOM, U Routine 01/04/2024 5:5 6 AM SENIOR MARKET RESEARCH ANALYST NT-PRO B-TYPE NATRIURETIC PEPTIDE (BNP), S Routine 01/04/2024 4:56 AM SENIOR MARKET RESEARCH ANALYST PARATHYROID HORMONE (PTH), S Routine 01/04/2024 4:56 AM SENIOR MARKET RESEARCH ANALYST IRON AND TOT IRON-BINDING CAPACITY, S/P Routine 01/04/2024 4:56 AM SENIOR MARKET RESEARCH ANALYST FERRITIN, S Routine 01/04/2024 4:56 AM SENIOR MARKET RESEARCH ANALYST BASIC METABOLIC PANEL, S/P Routine 01/04/2024 4:56 AM SENIOR MARKET RESEARCH ANALYST CBC WITH DIFFERENTIAL, B Routine 01/04/2024 4:56 AM SENIOR MARKET RESEARCH ANALYST CYTOLOGY NON-HEAD BUCKER Timed 01/03/2024 5:09 PM SENIOR MARKET RESEARCH ANALYST US THORACENTESIS RIGHT WITH IMAGING GUIDANCE RAD - Routine (most inpatients and all outpatients) 01/03/2024 5:04 PM SENIOR MARKET RESEARCH ANALYST BASIC METABOLIC PANEL, S/P Timed 01/03/2024 1:56 PM SENIOR MARKET RESEARCH ANALYST HEMODIALYSIS Routine 01/03/2024 11:28 AM SENIOR MARKET RESEARCH ANALYST BACTERIA / ALIX CULTURE, BLOOD Routine 01/03/2024 10:53 AM SENIOR MARKET RESEARCH ANALYST LACTATE FOR SEPSIS WITH REFLEX Routine 01/03/2024 10:52 AM SENIOR MARKET RESEARCH ANALYST BACTERIA / ALIX CULTURE, BLOOD Routine 01/03/2024 10:52 AM SENIOR MARKET RESEARCH ANALYST ALBUMIN, S/P Routine 01/03/2024 10:51 AM SENIOR MARKET RESEARCH ANALYST HEMODIALYSIS Routine 01/03/2024 8:16 AM SENIOR MARKET RESEARCH ANALYST VITAMIN D, IMMUNOASSAY, TOTAL, S Routine 01/03/2024 6:42 AM SENIOR MARKET RESEARCH ANALYST NT-PRO B-TYPE NATRIURETIC PEPTIDE (BNP), S Routine 01/03/2024 6:42 AM SENIOR MARKET RESEARCH ANALYST CALCIUM, IONIZED, S/B Routine 01/03/2024 6:42 AM SENIOR MARKET RESEARCH ANALYST PH BLOOD GAS Routine 01/03/2024 6:42 AM SENIOR MARKET RESEARCH ANALYST CBC WITH DIFFERENTIAL, B Routine 01/03/2024 6:42 AM SENIOR MARKET RESEARCH ANALYST BASIC METABOLIC PANEL, S/P Routine 01/03/2024 6:42 AM SENIOR MARKET RESEARCH ANALYST QUANTIFERON-TB GOLD PLUS, B Routine 01/03/2024 6:42 AM SENIOR MARKET RESEARCH ANALYST HBC TOTAL AB, SERUM Routine 01/03/2024 6 :42 AM SENIOR MARKET RESEARCH ANALYST HBS ANTIBODY, SERUM Routine 01/03/2024 6 :42 AM SENIOR MARKET RESEARCH ANALYST HEPATITIS B SURFACE ANTIGEN Routine 01/03/2024 6:42 AM SENIOR MARKET RESEARCH ANALYST LEUKEMIA/LYMPHOMA, PHENOTYPE, V Timed 01/03/2024 6:10 AM SENIOR MARKET RESEARCH ANALYST CHOLESTEROL, BF Timed 01/03/2024 6:10 AM SENIOR MARKET RESEARCH ANALYST GLUCOSE, BODY FLUID Timed 01/03/2024 6 :10 AM SENIOR MARKET RESEARCH ANALYST CELL COUNT AND DIFFERENTIAL, BF Timed 01/03/2024 6:10 AM SENIOR MARKET RESEARCH ANALYST PROTEIN, TOTAL, BF Timed 01/03/2024 6: 10 AM SENIOR MARKET RESEARCH ANALYST LACTATE DEHYDROGENASE (LD), BF Timed 01/03/2024 6:10 AM SENIOR MARKET RESEARCH ANALYST M TUBERCULOSIS COMPLEX PCR, V Timed 01/03/2024 6:10 AM SENIOR MARKET RESEARCH ANALYST BROAD RANGE BACTERIA PCR AND SEQUENCING Timed 01/03/2024 6:10 AM SENIOR MARKET RESEARCH ANALYST BACTERIAL CULTURE, ANAEROBIC + SUSC Timed 01/03/2024 6:10 AM SENIOR MARKET RESEARCH ANALYST BACTERIAL CULTURE, AEROBIC + SUSC Timed 01/03/2024 6:10 AM SENIOR MARKET RESEARCH ANALYST GRAM STAIN Timed 01/03/2024 6:10 AM SENIOR MARKET RESEARCH ANALYST DX CHEST PORTABLE 1 VIEW RAD - Semiurgent (Fast; most ED patients; some inpatients) 01/02/2024 3:59 PM SENIOR MARKET RESEARCH ANALYST MC ANE CENTRAL LINE GENERIC PERFORMABLE Routine 01/02/2024 3:47 PM SENIOR MARKET RESEARCH ANALYST Failure Renal Acute (Acute Kidney Injury) (HCC) LDA ANE CENTRAL LINE DOUBLE LUMEN ADULT Routine 01/02/2024 3:47 PM SENIOR MARKET RESEARCH ANALYST Failure Renal Acute (Acute Kidney Injury) (HCC) HI US GUIDE VASC ACCESS Routine 01/02/2024 3:47 PM SENIOR MARKET RESEARCH ANALYST Failure Renal Acute (Acute Kidney Injury) (HCC) HI INS NON-BLAINE CVC >5YR Routine 01/02/2024 3:47 PM SENIOR MARKET RESEARCH ANALYST Failure Renal Acute (Acute Kidney Injury) (HCC) GENERAL SURGERY IMAGE EXAM Routine 01/02/2024 3:30 PM SENIOR MARKET RESEARCH ANALYST HEMODIALYSIS Routine 01/02/2024 2:44 PM SENIOR MARKET RESEARCH ANALYST MAGNESIUM, S Routine 01/02/2024 11:32 AM SENIOR MARKET RESEARCH ANALYST BASIC METABOLIC PANEL, S/P Routine 01/02/2024 11:32 AM SENIOR MARKET RESEARCH ANALYST US KIDNEYS BILATERAL WITH BLADDER RAD - Routine (most inpatients and all outpatients) 01/02/2024 10:15 AM SENIOR MARKET RESEARCH ANALYST DX CHEST PORTABLE 1 VIEW RAD - Semiurgent (Fast; most ED patients; some inpatients) 01/02/2024 4:24 AM SENIOR MARKET RESEARCH ANALYST CREATINE KINASE (CK), S Routine 01/02/2024 4:10 AM SENIOR MARKET RESEARCH ANALYST ALBUMIN, S/P Routine 01/02/2024 4:10 AM SENIOR MARKET RESEARCH ANALYST CALCIUM, IONIZED, S/B Routine 01/02/2024 4:10 AM SENIOR MARKET RESEARCH ANALYST PH BLOOD GAS Routine 01/02/2024 4:10 AM SENIOR MARKET RESEARCH ANALYST PHOSPHORUS (INORGANIC), S Routine 01/02/2024 3:41 AM SENIOR MARKET RESEARCH ANALYST MAGNESIUM, S Routine 01/02/2024 3:41 AM SENIOR MARKET RESEARCH ANALYST LACTATE, B STAT 01/02/2024 3:41 AM SENIOR MARKET RESEARCH ANALYST NT-PRO B-TYPE NATRIURETIC PEPTIDE (BNP), S Routine 01/02/2024 3:41 AM SENIOR MARKET RESEARCH ANALYST VENOUS BLOOD GAS W/COOX, B Routine 01/02/2024 3:41 AM SENIOR MARKET RESEARCH ANALYST OSMOLALITY, S Routine 01/02/2024 3:41 AM SENIOR MARKET RESEARCH ANALYST CBC WITH DIFFERENTIAL, B Routine 01/02/2024 3:41 AM SENIOR MARKET RESEARCH ANALYST BASIC METABOLIC PANEL, S/P Routine 01/02/2024 3:41 AM SENIOR MARKET RESEARCH ANALYST ECG Routine 01/02/2024 12:39 AM SENIOR MARKET RESEARCH ANALYST OUTSIDE CT BODY Routine 01/01/2024 2:25 PM SENIOR MARKET RESEARCH ANALYST OUTSIDE CT NEURO Routine 01/01/2024 2:20 PM SENIOR MARKET RESEARCH ANALYST from Last 3 Months Results * CT CHEST W CON-Outside CT Body (01/22/2024 11:00 AM SENIOR MARKET RESEARCH ANALYST) Only the most recent of2 resultswithin the time period is included. 01/22/2024 10:5 8 AM SENIOR MARKET RESEARCH ANALYST Narrative IIMS - 01/22/2024 12:17 PM SENIOR MARKET RESEARCH ANALYST This order has been created and [...] PROCEDURES Final R esult IIMS NA * FL Swallow Function with Video and Speech or OT (01/11/2024 1:48 PM SENIOR MARKET RESEARCH ANALYST) Anatomical Region Laterality Modality Gastro Intestinal, Abdominal RST LOS, Abdominal ARZ LOS, Abdominal FLA LOS N/A Digital Radiography Impressions 01/11/2024 4:00 PM SENIOR MARKET RESEARCH ANALYST Normal modified barium swallow study Narrative 01/11/2024 4:00 PM SENIOR MARKET RESEARCH ANALYST EXAM: FL SWALLOW FUNCTION WITH VIDEO AND [...] modified barium swallow study Jeremías Fernandez M.D. IMG FLUOROSCOPY PROCEDURES F inal Result * Testing Location (01/11/2024 11:51 AM SENIOR MARKET RESEARCH ANALYST) Testing Location [facility] DEFAULT 01/11/2024 11:57 AM SENIOR MARKET RESEARCH ANALYST [facility] Blood 01/11/2024 11:5 1 AM SENIOR MARKET RESEARCH ANALYST 01/11/2024 11:57 AM SENIOR MARKET RESEARCH ANALYST Jeremías Fernandez M.D. LAB BLOOD BANK TEST ORDERABL ES Final Result [facility] [address] [place] [address], [place] [address] * (ABNORMAL) Hemoglobin (01/11/2024 11:51 AM SENIOR MARKET RESEARCH ANALYST) Only the most recent of2 resultswithin the time period is included. Pathologist [facility] Hemoglobin 8.1(L) 13.2 - 16.6 g/dL 01/11/2024 12:00 PM SENIOR MARKET RESEARCH ANALYST [facility] Blood (Blood, Venous) 01/11/2024 11:51 AM SENIOR MARKET RESEARCH ANALYST 01/11/2024 11:57 AM SENIOR MARKET RESEARCH ANALYST us Jeremías Fernandez M.D. LAB BLOOD ADD-ON Final Resul t Performing Organization Address City/[facility]/ZIP Co de Phone Number [facility] [address] [place] [address], [place] [address] * Type and Screen (with Reflex Antibody ID) (01/11/2024 11:51 AM SENIOR MARKET RESEARCH ANALYST) ABO Group B 01/11/2024 12:58 PM SENIOR MARKET RESEARCH ANALYST [facility] Rh Type NEG 01/11/2024 12:58 PM SENIOR MARKET RESEARCH ANALYST [facility] Antibody Screen NEG 12:58 PM SENIOR MARKET RESEARCH ANALYST [facility] Type & Screen Expiration 01/14/2024 23:59 01/11/2024 12:58 PM SENIOR MARKET RESEARCH ANALYST [facility] Eligible Y 01/11/2024 12:58 PM SENIOR MARKET RESEARCH ANALYST [facility] Blood (Blood, Venous) 01/11/2024 11:51 AM SENIOR MARKET RESEARCH ANALYST 01/11/2024 11:57 AM SENIOR MARKET RESEARCH ANALYST Jeremías Fernandez M.D. LAB BLOOD BANK TEST ORDERABL ES Final Result [facility] [address] [place] [address], [facility] [place] [address] [place] [address] * DX Chest Portable 1 View (01/11/2024 6:54 AM SENIOR MARKET RESEARCH ANALYST) Only the most recent of5 resultswithin the time period is included. Anatomical Region Laterality Modality Chest, Thoracic RST LOS, Tho racic ARZ LOS, Thoracic FLA LOS N/A Digital Radiography Impressions 01/11/2024 7:51 AM SENIOR MARKET RESEARCH ANALYST No change since 01/10/2024. Small right pleural effusion with associated atelectasis. The left lung remains clear. No pneumothorax. Normal heart size. Aortic calcifications. Narrative 01/11/2024 7:51 AM SENIOR MARKET RESEARCH ANALYST EXAM: DX CHEST PORTABLE 1 VIEW Procedure Note Yovany Shrestha M.D. - 01/11/2024 EXAM: DX CHEST PORTABLE 1 VIEW IMPRESSION: No change since 01/10/2024. Small right pleural effusion with associatedatelectasis. The left lung remains clear. No pneumothorax. Normal heartsize. Aortic calcifications. Fidencio Oliva M.D. IMG DIAGNOSTIC IMAGING PROCED URES Final Result * (ABNORMAL) Hepatic Function Panel (01/11/2024 4:48 AM SENIOR MARKET RESEARCH ANALYST) Only the most recent of5 resultswithin the time period is included. Bilirubin, Total, P 0.2 0.0 - 1.2 mg/dL 01/11/2024 5:37 AM SENIOR MARKET RESEARCH ANALYST [facility] Bilirubin, Direct, P 0.1 0.0 - 0.3 mg/dL 01/11/2024 5:37 AM SENIOR MARKET RESEARCH ANALYST [facility] Aspartate Aminotransferase (AST), P 23 8 - 48 U/L 01/11/2024 5:37 AM SENIOR MARKET RESEARCH ANALYST [facility] Alanine Aminotransferase (ALT), P 11 7 - 55 U/L 01/11/2024 5:37 AM SENIOR MARKET RESEARCH ANALYST [facility] Alkaline Phosphatase, P 83 40 - 129 U/L 01/11/2024 5:37 AM SENIOR MARKET RESEARCH ANALYST [facility] Albumin, P 2.4(L) 3.5 - 5.0 g/dL 01/11/2024 5:37 AM SENIOR MARKET RESEARCH ANALYST [facility] Protein, Total, P 5.2(L) 6.3 - 7.9 g/dL 01/11/2024 5:37 AM SENIOR MARKET RESEARCH ANALYST [facility] Blood (Blood, Venous) 01/11/2024 4:48 AM SENIOR MARKET RESEARCH ANALYST 01/11/2024 5:11 AM SENIOR MARKET RESEARCH ANALYST us Jeremías Fernandez M.D. LAB BLOOD ADD-ON Final Resul t [facility] [address] [place] [address], [facility] [place] [address] * (ABNORMAL) CBC with Differential, Blood (01/11/2024 4:48 AM SENIOR MARKET RESEARCH ANALYST) Only the most recent of10 resultswithin the time period is included. Hemoglobin 7.5(L) 13.2 - 16.6 g/dL 01/11/2024 5:14 AM SENIOR MARKET RESEARCH ANALYST [facility] Hematocrit 24.9(L) 38.3 - 48.6 % 01/11/2024 5:14 AM SENIOR MARKET RESEARCH ANALYST [facility] Erythrocytes 2.52(L) 4.35 - 5.65 x10(12)/L 01/11/2024 5:14 AM SENIOR MARKET RESEARCH ANALYST [facility] MCV 98.8(H) 78.2 - 97.9 fL 01/11/2024 5:14 AM SENIOR MARKET RESEARCH ANALYST [facility] RBC Distrib Width 14.5 11.8 - 14.5 % 01/11/2024 5:14 AM SENIOR MARKET RESEARCH ANALYST MKTO Platelet Count 243 135 - 317 x10(9)/L 01/11/2024 5:14 AM SENIOR [employer] ANALYST MKTO Leukocytes 8.8 3.4 - 9.6 x10(9)/L 01/11/2024 5:14 AM S[employer]IOR [employer] ANALYST MKTO Neutrophils 6.61(H) 1.56 - 6.45 x10(9)/L 01/11/2024 5:14 AM SENIOR [employer] ANALYST MKTO Lymphocytes 0.97 0.95 - 3.07 x10(9)/L 01/11/2024 5:14 AM S[employer]IOR [employer] ANALYST MKTO Monocytes 0.98(H) 0.26 - 0.81 x10(9)/L 01/11/2024 5:14 AM S[employer]IOR [employer] ANALYST MKTO Eosinophils 0.15 0.03 - 0.48 x10(9)/L 01/11/2024 5:14 AM S[employer]IOR [employer] ANALYST MKTO Basophils 0.07 0.01 - 0.08 x10(9)/L 01/11/2024 5:14 AM SENIOR [employer]ET RESE[employer] ANALYST MKTO Blood (Blood, Venous) 01/11/2024 4:48 AM SENIOR MARKET RESE[employer] ANALYST 01/11/2024 5:11 AM SENIOR [employer]ET RESE[employer] ANALYST Jeremías Fernandez M.D. LAB BLOOD ADD-ON Final Resul t [facility] [address] [place] [address], [place] [address] * Phosphorus Inorganic (01/11/2024 4:48 AM SENIOR MARKET RESE[employer] ANALYST) Only the most recent of6 resultswithin the time period is included. Phosphorus (Inorganic), P 3.1 2.5 - 4.5 mg/dL 01/11/2024 5:37 AM SENIOR [employer] ANALYST MKTO Blood (Blood, Venous) 01/11/2024 4:48 AM SENIOR MARKET RESEARCH ANALYST 01/11/2024 5:11 AM S[employer]IOR [employer] ANALYST Jeremías Fernandez M.D. LAB BLOOD ADD-ON Final Resul t [facility] [address] [place] [address], [facility] [address] [place] [address] * Magnesium (01/11/2024 4:48 AM SENIOR MARKET RESE[employer] ANALYST) Only the most recent of8 resultswithin the time period is included. Magnesium, P 1.7 1.7 - 2.3 mg/dL 01/11/2024 5:37 AM SENIOR MARKET RESE[employer] ANALYST MKTO Blood (Blood, Venous) 01/11/2024 4:48 AM SENIOR MARKET RESE[employer] ANALYST 01/11/2024 5:11 AM SENIOR MARKET RESEARCH ANALYST us Jeremías Fernandez M.D. LAB BLOOD ADD-ON Final Resul t [facility] [address] [place] [address], [place] [address] * (ABNORMAL) Basic Metabolic Panel (01/11/2024 4:48 AM SENIOR MARKET RESEARCH ANALYST) Only the most recent of11 resultswithin the time period is included. Potassium, P 4.3 3.6 - 5.2 mmol/L 01/11/2024 5:37 AM SENIOR MARKET RESEARCH ANALYST MKTO Sodium, P 143 135 - 145 mmol/L 01/11/2024 5:37 AM SENIOR MARKET RESEARCH ANALYST MKTO Chloride, P 110(H) 98 - 107 mmol/L 01/11/2024 5:37 AM SENIOR MARKET RESEARCH ANALYST MKTO Bicarbonate, P 24 22 - 29 mmol/L 01/11/2024 5:37 AM SENIOR MARKET RESEARCH ANALYST MKTO Anion [place], P 9 7 - 15 01/11/2024 5:37 AM SENIOR MARKET RESEARCH ANALYST MKTO BUN (Blood Urea Nitrogen), P 33(H) 8 - 24 mg/dL 01/11/2024 5:37 AM SENIOR MARKET RESEARCH ANALYST MKTO Creatinine 1.74(H) 0.74 - 1.35 mg/dL 01/11/2024 5:37 AM SENIOR MARKET RESEARCH ANALYST MKTO Estimated GFR (eGFR) 38(L) >=60 mL/min/BSA 01/11/2024 5:37 AM SENIOR MARKET RESEARCH ANALYST MKTO Comment: Estimated GFR calculated using the 2020 CKD_EPI creatinine equation. Calcium, Total, P 7.8(L) 8.8 - 10.2 mg/dL 01/11/2024 5:37 AM SENIOR MARKET RESEARCH ANALYST MKTO Glucose, P 92 70 - 140 mg/dL 01/11/2024 5:37 AM SENIOR MARKET RESEARCH ANALYST MKTO Blood (Blood, Venous) 01/11/2024 4:48 AM SENIOR MARKET RESEARCH ANALYST 01/11/2024 5:11 AM SENIOR MARKET RESEARCH ANALYST Jeremías Fernandez M.D. LAB BLOOD ADD-ON Final Resul t Performing Organization Address City/[facility]/ZIP Co de Phone Number [facility] [address] [place] [address], [place] [address] * (ABNORMAL) Morphology Evaluation (01/09/2024 6:42 AM SENIOR MARKET RESEARCH ANALYST) Only the most recent of5 resultswithin the time period is included. RBC Morphology See Specific Findings 01/09/2024 8:09 AM SENIOR MARKET RESEARCH ANALYST MKTO PLT Morphology Normal 01/09/2024 8:09 AM SENIOR MARKET RESEARCH ANALYST MKTO PLT Estimate Adequate Adequate 01/09/2024 8:09 AM SENIOR MARKET RESEARCH ANALYST MKTO Anisocytosis Slight(A) 01/09/2024 8:09 AM SENIOR MARKET RESEARCH ANALYST MKTO Basophilic Stippling Slight(A) 01/09/2024 8:09 AM SENIOR MARKET RESEARCH ANALYST MKTO Elliptocytes Slight(A) Not Seen 01/09/2024 8:09 AM SENIOR MARKET RESEARCH ANALYST MKTO Poikilocytosis Slight(A) Not Seen 01/09/2024 8:09 AM SENIOR MARKET RESEARCH ANALYST MKTO Blood 01/09/2024 6:42 AM SENIOR MARKET RESEARCH ANALYST 01/09/2024 7:05 AM SENIOR MARKET RESEARCH ANALYST us Jeremías Fernandez M.D. LAB BLOOD ADD-ON Final Resul t Performing Organization Address City/[facility]/ZIP Co de Phone Number [facility] [address] [place] [address], [address] [address] * (ABNORMAL) Manual Differential, Blood (01/09/2024 6:42 AM SENIOR MARKET RESEARCH ANALYST) Only the most recent of4 resultswithin the time period is included. Segmented Neutrophils 87(H) 50 - 75 % 01/09/2024 8:09 AM SENIOR MARKET RESEARCH ANALYST MKTO Lymphocytes % 8(L) 18 - 42 % 01/09/2024 8:09 AM SENIOR MARKET RESEARCH ANALYST MKTO Monocytes 1(L) 2 - 11 % 01/09/2024 8:09 AM SENIOR MARKET RESEARCH ANALYST MKTO Eosinophils 1 1 - 3 % 01/09/2024 8:09 AM SENIOR MARKET RESEARCH ANALYST MKTO Metamyelocytes 1(H) <1 % 01/09/2024 8:09 AM SENIOR MARKET RESEARCH ANALYST MKTO Myelocytes 2(H) <0.5 % 01/09/2024 8:09 AM SENIOR MARKET RESEARCH ANALYST MKTO Manual Absolute Neutrophil Count 10.27(H) 1.56 - 6.45 x10(9)/L 01/09/2024 8:09 AM SENIOR MARKET RESEARCH ANALYST MKTO Comment: ----ADDITIONAL INFORMATION---- The manual absolute neutrophil count is derived from a manual differential count and therefore is not exactly comparable to the automated absolute neutrophil count. Blood 01/09/2024 6:42 AM SENIOR MARKET RESEARCH ANALYST 01/09/2024 7:05 AM SENIOR MARKET RESEARCH ANALYST us Jeremías Fernandez M.D. LAB BLOOD ADD-ON Final Resul t [facility] [address] [place] [address], [place] [address] * CT Chest without IV Contrast (01/08/2024 1:11 PM SENIOR MARKET RESEARCH ANALYST) Anatomical Region Laterality Modality Chest, Thoracic RST LOS, Tho racic ARZ LOS, Thoracic FLA LOS N/A Computed Tomography Impressions 01/08/2024 2:48 PM SENIOR MARKET RESEARCH ANALYST 1. Loculated right pleural collection with adjacent consolidation or atelectasis in the right lower lobe. 2. Right chest tube pigtail is positioned at the interface of the pleural space with the adjacent chest wall. Correlation with chest tube function recommended. 3. No fluid collection within the chest wall. Small right chest wall emphysema. Narrative 01/08/2024 2:48 PM SENIOR MARKET RESEARCH ANALYST EXAM: CT CHEST WITHOUT IV CONTRAST COMPARISON: [...] Small right chest wallemphysema. Fidencio Oliva M.D. IM CT PROCEDURES Final Resul t * DX Chest 1 View (01/08/2024 7:16 AM SENIOR MARKET RESEARCH ANALYST) Only the most recent of3 resultswithin the time period is included. Anatomical Region Laterality Modality Chest, Thoracic RST LOS, Tho racic ARZ LOS, Thoracic FLA LOS N/A Digital Radiography Impressions 01/08/2024 7:44 AM SENIOR MARKET RESEARCH ANALYST Interval retraction of the right pleural catheter. The pigtail projects over the lateral chest wall soft tissues and requires correlation with positioning and catheter output. Persisting right pleural effusion/pleural thickening and right basilar airspace opacity. Narrative 01/08/2024 7:44 AM SENIOR MARKET RESEARCH ANALYST EXAM: DX CHEST 1 VIEW COMPARISON: January [...] Tropheryma whipplei PCR, Blood (01/06/2024 11:36 AM SENIOR MARKET RESEARCH ANALYST) Specimen Source BLOOD 12:26 PM SENIOR MARKET RESEARCH ANALYST DTL Tropheryma whipplei PCR, B, Result Negative Not Applicable 01/08/2024 12:26 PM SENIOR MARKET RESEARCH ANALYST DTL Comment: ----ADDITIONAL INFORMATION---- This test was developed and its performance characteristics determined by [facility] in a manner consistent with CLIA requirements. This test has not been cleared or approved by the U.S. Food and Drug Administration. Blood (Blood, Venous) 01/06/2024 11:36 AM SENIOR MARKET RESEARCH ANALYST 01/07/2024 8:06 AM SENIOR MARKET RESEARCH ANALYST Sarah Rose M.D. LAB MICROBIOLOG Y - BLOOD ORDERABLES Final Result [facility] [address] [place] [address], [place] DTL [address] [place] [address] * [id number] [facility] Test for Pathogen Detection - Miscellaneous Test (01/06/2024 11:36 AM SENIOR MARKET RESEARCH ANALYST) Test Name [facility] Test for Pathogen Detection 01/06/2024 11:49 AM SENIOR MARKET RESEARCH ANALYST MKTO Result Specimen sent out; results to follow DEFAULT 01/06/2024 11:49 AM SENIOR MARKET RESEARCH ANALYST MKTO Blood (Blood, Venous) 01/06/2024 11:36 AM SENIOR MARKET RESEARCH ANALYST 01/06/2024 11:49 AM SENIOR MARKET RESEARCH ANALYST us Sarah Rose M.D. LAB [facility] ORDERA BLES Final Result [facility] [place] [address], [facility] MKTO [facility] [place] [address] [place] [address] * [facility] - Sent Out Lab (01/06/2024 10:59 AM SENIOR MARKET RESEARCH ANALYST) Pathologist [facility] Test Name [facility] Test for Pathogen Detection 01/06/2024 11:49 AM SENIOR MARKET RESEARCH ANALYST CYDNEY Result SEE COMMENT 01/11/2024 9:44 AM SENIOR MARKET RESEARCH ANALYST CYDNEY Comment: For final report, select Lab-Send Out Lab Results hyperlink below. 01/06/2024 10:5 9 AM SENIOR MARKET RESEARCH ANALYST 01/07/2024 8:53 AM SENIOR MARKET RESEARCH ANALYST us Sarah Rose M.D. LAB [facility] ORDERA BLES Final Result [facility] [address] [place] [address], [facility] CYDNEY [facility] [address] [place] [phone] * (ABNORMAL) Renal Function Panel (01/06/2024 5:37 AM SENIOR MARKET RESEARCH ANALYST) [facility] Potassium, P 3.3(L) 3.6 - 5.2 mmol/L 01/06/2024 6:11 AM SENIOR MARKET RESEARCH ANALYST MKTO Sodium, P 142 135 - 145 mmol/L 01/06/2024 6:11 AM SENIOR MARKET RESEARCH ANALYST MKTO Chloride, P 104 98 - 107 mmol/L 01/06/2024 6:11 AM SENIOR MARKET RESEARCH ANALYST MKTO Bicarbonate, P 25 22 - 29 mmol/L 01/06/2024 6:11 AM SENIOR MARKET RESEARCH ANALYST MKTO Anion [place], P 13 7 - 15 01/06/2024 6:11 AM SENIOR MARKET RESEARCH ANALYST MKTO BUN (Blood Urea Nitrogen), P 37(H) 8 - 24 mg/dL 01/06/2024 6:11 AM SENIOR MARKET RESEARCH ANALYST MKTO Creatinine 1.91(H) 0.74 - 1.35 mg/dL 01/06/2024 6:11 AM SENIOR MARKET RESEARCH ANALYST MKTO Estimated GFR (eGFR) 34(L) >=60 mL/min/BSA 01/06/2024 6:11 AM SENIOR MARKET RESEARCH ANALYST MKTO Comment: Estimated GFR calculated using the 2020 CKD_EPI creatinine equation. Calcium, Total, P 8.4(L) 8.8 - 10.2 mg/dL 01/06/2024 6:11 AM SENIOR MARKET RESEARCH ANALYST MKTO Glucose, P 92 70 - 140 mg/dL 01/06/2024 6:11 AM SENIOR MARKET RESEARCH ANALYST MKTO Albumin, P 2.7(L) 3.5 - 5.0 g/dL 01/06/2024 6:11 AM SENIOR MARKET RESEARCH ANALYST MKTO Phosphorus (Inorganic), P 2.7 2.5 - 4.5 mg/dL 01/06/2024 6:11 AM SENIOR MARKET RESEARCH ANALYST MKTO Blood (Blood, Venous) 01/06/2024 5:37 AM SENIOR MARKET RESEARCH ANALYST 01/06/2024 5:47 AM SENIOR MARKET RESEARCH ANALYST us Vidhya Tovar P.A.-C. LAB BLOOD ADD-ON Final Resu lt [facility] [address] [place] [address], [facility] MKTO [facility] [place] [address] * ECG 12 Lead (01/06/2024 5:32 AM SENIOR MARKET RESEARCH ANALYST) Only the most recent of2 resultswithin the time period is included. Ventricular Rate ECG/Min 98 BPM MUSE HI Interval 164 ms MUSE QRSD Interval 128 ms MUSE QT Interval 398 ms MUSE QTC Interval 508 ms MUSE P [place] 52 degrees MUSE R [place] -72 degrees MUSE T Wave [place] 53 degrees MUSE 01/06/2024 5:32 AM SENIOR MARKET RESEARCH ANALYST 01/06/2024 5:40 AM SENIOR MARKET RESEARCH ANALYST Impressions MUSE - 01/06/2024 5:40 AM SENIOR MARKET RESEARCH ANALYST Normal sinus rhythm Right bundle branch block [...] IR Chest Tube Placement (01/05/2024 1:42 PM SENIOR MARKET RESEARCH ANALYST) Anatomical Region Laterality Modality Chest, Vascular Intervention al RST LOS, Vascular Interventional ARZ LOS, Vascular Interventional FLA LOS N/A X-Ray Angiography Impressions 01/05/2024 2:17 PM SENIOR MARKET RESEARCH ANALYST 1. Right chest tube placement. Narrative 01/05/2024 2:17 PM SENIOR MARKET RESEARCH ANALYST EXAM: IR CHEST TUBE PLACEMENT HISTORY: R [...] medications. Patient education provided by a care fast food team member. Patient was ready to learn with no apparent learning barriers were identified. Post-procedure care explained; patient expressed understanding of the content. PROCEDURE DETAILS: Sedation: None. Local anesthesia was achieved with lidocaine. Sedation time: None Estimated Blood Loss: Less than 10 mL. TECHNIQUE: Imaging guidance for drain insertion: Ultrasound and fluoroscopy with permanent image storage Access side: Right Catheter: 12 Taiwanese multipurpose pigtail drain Technique: Image guidance was used to localize the collection. A 5 Taiwanese Yueh needle catheter was used to access the collection under real time image guidance, and images were saved to PACS. Aspiration yielded purulent fluid. A guidewire was inserted, and the tract was dilated to accommodate a 12 Taiwanese pigtail drain. The catheter was secured with [...] medications. Patient education provided by a care fast food team member. Patient was ready to learn withno apparent learning barriers were identified. Post-procedure careexplained; patient expressed understanding of the content. PROCEDURE DETAILS: Sedation: None. Local anesthesia was achieved with lidocaine. Sedation time: None Estimated Blood Loss: Less than 10 mL. TECHNIQUE: Imaging guidance for drain insertion: Ultrasound and fluoroscopy withpermanent image storage Access side: Right Catheter: 12 Taiwanese multipurpose pigtail drain Technique: Image guidance was used to localize the collection. A 5 FrenchYueh needle catheter was used to access the collection under real timeimage guidance, and images were saved to PACS. Aspiration yielded purulentfluid. A guidewire was inserted, and the tract was dilated to accommodate a 12 Taiwanese pigtail drain. Thecatheter was secured with 2-0 Ethilon suture. The catheter was connectedto Pleur-evac Intraprocedural or immediate post-procedural complications: None FINDINGS: Catheter tip location: Final image was demonstrates the catheter tip to belocated in the right pleural space Additional observations: N/A PLAN: Follow-up with pulmonology. IMPRESSION: 1. Right chest tube placement. Fidencio Oliva M.D. IM IR PROCEDURES Final Resul t * Cytology Non-HEAD BUCKER (01/05/2024 12:50 PM SENIOR MARKET RESEARCH ANALYST) Only the most recent of2 resultswithin the time period is included. 01/07/2024 3:19 PM SENIOR MARKET RESEARCH ANALYST HKCY Disclaimer This test has been modified from the event technician's instructions. Its performance characteristics were determined by [facility] in a manner consistent with CLIA requirements. This test has not been cleared or approved by the U.S. Food and Drug Administration. 01/07/2024 3:19 PM SENIOR MARKET RESEARCH ANALYST HKCY Report electronically signed by LOLY Schwartz. Ch.B. I verify that I have examined all relevant slides/materials for the specimen(s) and rendered or confirmed the diagnosis. 01/07/2024 3:19 PM SENIOR MARKET RESEARCH ANALYST HKCY Gross Description 50 ml of cloudy hubbard fluid received. Specimen fixed at 2:20 pm on 01-05-2024. 2 slides and cell block prepared. 01/07/2024 3:19 PM SENIOR MARKET RESEARCH ANALYST HKCY Source A. Pleural, fluid 11/21/2 024 3:19 PM SENIOR MARKET RESEARCH ANALYST HKCY Interpretation A. Pleural, fluid (smears/cell block): Negative for malignancy. Acute inflammation. COMMENT Immunohistochemica l stains with appropriate reactive controls was performed on separate slides on cell block. CK7, WT1, calretinin, TTF1, Napsin A, p40, CK20, NKX3.1 and CDX2: Negative Controls reviewed, results acceptable. 01/07/2024 3:19 PM SENIOR MARKET RESEARCH ANALYST HKCY Fluid 01/05/2024 12:5 0 PM SENIOR MARKET RESEARCH ANALYST 01/06/2024 7:16 AM SENIOR MARKET RESEARCH ANALYST us Fidencio Oliva M.D. LAB SURG PATH ORDERABLES Sury l Result [facility] [address] [place] [address], [facility] HKCY [address] [address] * Protein, Total, Body Fluid (01/05/2024 12:50 PM SENIOR MARKET RESEARCH ANALYST) Only the most recent of2 resultswithin the time period is included. Protein, Total, BF 2.6 See Comment g/dL 01/06/2024 11:13 AM SENIOR MARKET RESEARCH ANALYST DTL Comment: ----ADDITIONAL INFORMATION---- A pleural fluid [...] clinical findings. All other fluids refer to www.fivesquids.co.uks.com for further interpretive information. This test has been modified from the event technician's instructions. Its performance characteristics were determined by [facility] in a manner consistent with CLIA requirements. This test has not been cleared or approved by the U.S. Food and Drug Administration. Fluid Type, Protein, Total PLEURAL 01/06/2024 10:14 AM SENIOR MARKET RESEARCH ANALYST DTL Fluid (Pleural Fluid) 01/05/2024 12:50 PM SENIOR MARKET RESEARCH ANALYST 01/06/2024 10:01 AM SENIOR MARKET RESEARCH ANALYST us Fidencio Oliva M.D. LAB BODY FLUIDS AND STOOLS OR DERABLES Final Result [facility] [address] [place] [address], [place] DTL [facility] [address] [place] [address] * (ABNORMAL) Bacterial Culture, Aerobic + Susceptibility (01/05/2024 12:50 PM SENIOR MARKET RESEARCH ANALYST) Only the most recent of2 resultswithin the time period is included. Bacterial Culture, Aerobic + Susc STREPTOCOCCUS ANGINOSUS GROUP [place] (A) 01/09/2024 7:56 AM SENIOR MARKET RESEARCH ANALYST MKTO Fluid (Pleural Fluid) 01/05/2024 12:50 PM SENIOR MARKET RESEARCH ANALYST 01/05/2024 1:47 PM SENIOR MARKET RESEARCH ANALYST Comment:Specimen Source Site : Fluid Narrative Organism [...] MICROBIOLOGY - GENERAL OR DERABLES Final Result [facility] [address] [place] [address], [address] [address] * Cell Count and Differential, Body Fluid (01/05/2024 12:50 PM SENIOR MARKET RESEARCH ANALYST) Only the most recent of2 resultswithin the time period is included. Fluid Type Pleural/Thor acentesis 01/05/2024 2:19 PM SENIOR MARKET RESEARCH ANALYST MKTO Gross Appearance Purulent 01/05/20 24 2:40 PM SENIOR MARKET RESEARCH ANALYST MKTO Total Nucleated Cells [id number] /[id number] 01/05/2024 2:40 PM SENIOR MARKET RESEARCH ANALYST MKTO Comment: ----REFERENCE VALUE---- Synovial: <150 Peritoneal: <500 Pleural: <500 Pericardial: <500 ----ADDITIONAL INFORMATION---- This test has been modified from the event technician's instructions. Its performance characteristics were determined by [facility] in a manner consistent with CLIA requirements. This test has not been cleared or approved by the U.S. Food and Drug Administration. Neutrophils 100 % 01/05/2024 3:04 PM SENIOR MARKET RESEARCH ANALYST MKTO Comment: ----REFERENCE VALUE---- Synovial: <25% Peritoneal: <25% Pleural: <25% Pericardial: <25% Reviewed by: Dr. Morton 01/05/2024 3:05 PM SENIOR MARKET RESEARCH ANALYST MKTO Fluid (Pleural Fluid) 01/05/2024 12:50 PM SENIOR MARKET RESEARCH ANALYST 01/05/2024 1:47 PM SENIOR MARKET RESEARCH ANALYST us Fidencio Oliva M.D. LAB BODY FLUIDS AND STOOLS OR DERABLES Final Result [facility] [address] [place] [address], [address] [address] * Triglycerides, Body Fluid (01/05/2024 12:50 PM SENIOR MARKET RESEARCH ANALYST) Triglycerides, BF 31 See Comment mg/dL 01/06/2024 11:13 AM SENIOR MARKET RESEARCH ANALYST DTL Comment: ----ADDITIONAL INFORMATION---- Pleural fluid triglyceride concentrations > 110 mg/dL are consistent with chylous effusions. Triglyceride concentrations <50 mg/dL are usually not due to chylous effusions. Peritoneal fluid triglyceride concentrations > 187 mg/dL are most consistent with chylous effusion. All other fluids refer to http://www.Pe[employer].com for further interpretive information. This test has been modified from the event technician's instructions. Its performance characteristics were determined by [facility] in a manner consistent with CLIA requirements. This test has not been cleared or approved by the U.S. Food and Drug Administration. Fluid Type Pleural 01/06/2024 10:14 AM SENIOR MARKET RESEARCH ANALYST DTL Fluid (Pleural Fluid) 01/05/2024 12:50 PM SENIOR MARKET RESEARCH ANALYST 01/06/2024 10:01 AM SENIOR MARKET RESEARCH ANALYST Fidencio Oliva M.D. LAB BODY FLUIDS AND STOOLS OR DERABLES Final Result Performing Organization Address City/[facility]/ZIP Co de Phone Number [facility] [address] [place] [address], [facility] [address] [place] [address] * pH, Pleural Fluid (01/05/2024 12:50 PM SENIOR MARKET RESEARCH ANALYST) pH, Pleural Fluid <6.80 Not Applicable pH 01/05/2024 1:59 PM SENIOR MARKET RESEARCH ANALYST MKTO Comment: Clinical guidelines suggest that in parapneumonic pleural effusions, a pH <7.2 indicate the need for tube drainage. Fluid (Pleural Fluid) 01/05/2024 12:50 PM SENIOR MARKET RESEARCH ANALYST 01/05/2024 1:47 PM SENIOR MARKET RESEARCH ANALYST Fidencio Oliva M.D. LAB BODY FLUIDS AND STOOLS OR DERABLES Final Result [facility] [address] [place] [address], [place] MKTO [facility] [place] [address] [place] [address] * (ABNORMAL) Gram Stain (01/05/2024 12:50 PM SENIOR MARKET RESEARCH ANALYST) Only the most recent of3 resultswithin the time period is included. Gram Stain White blood cells, Many.(A) 01/05/2024 2:46 PM SENIOR MARKET RESEARCH ANALYST MKTO Gram Stain GRAM POSITIVE COCCI Many. (A) 01/05/2024 2:46 PM SENIOR MARKET RESEARCH ANALYST MKTO Fluid (Pleural Fluid) 01/05/2024 12:50 PM SENIOR MARKET RESEARCH ANALYST 01/05/2024 1:47 PM SENIOR MARKET RESEARCH ANALYST Comment:Specimen Source Site : Fluid Fidencio Oliva M.D. LAB MICROBIOLOGY - GENERAL OR DERABLES Final Result Performing Organization Address [facility] Co de Phone Number [facility] [address] [place] [address], [place] [address] * Bacterial Culture, Anaerobic + Susceptibility (01/05/2024 12:50 PM SENIOR MARKET RESEARCH ANALYST) Only the most recent of2 resultswithin the time period is included. Bacterial Culture, Anaerobic No growth after 7 days of incubation. 01/12/2024 7:59 AM SENIOR MARKET RESEARCH ANALYST MKTO Fluid (Pleural Fluid) 01/05/2024 12:50 PM SENIOR MARKET RESEARCH ANALYST 01/05/2024 1:47 PM SENIOR MARKET RESEARCH ANALYST Comment:Specimen Source Site : Fluid Fidencio Oliva M.D. LAB MICROBIOLOGY - GENERAL OR DERABLES Final Result Performing Organization Address City/[facility]/ZIP Co de Phone Number [facility] [address] [place] [address], [place] [address] * Lactate Dehydrogenase (LD), Body Fluid (01/05/2024 12:50 PM SENIOR MARKET RESEARCH ANALYST) Only the most recent of2 resultswithin the time period is included. Lactate Dehydrogenase (LD), BF >9000 See Comment U/L 01/06/2024 12:17 PM SENIOR MARKET RESEARCH ANALYST DTL Comment: ----ADDITIONAL INFORMATION---- Pleural fluid lactate [...] clinical findings. All other fluids refer to www.Jukedocs.CleveX for further interpretive information. This test has been modified from the event technician's instructions. Its performance characteristics were determined by [facility] in a manner consistent with CLIA requirements. This test has not been cleared or approved by the U.S. Food and Drug Administration. Fluid Type, Lactate Dehydrogenase PLEURAL 01/06/2024 10:14 AM SENIOR MARKET RESEARCH ANALYST DTL Fluid (Pleural Fluid) 01/05/2024 12:50 PM SENIOR MARKET RESEARCH ANALYST 01/06/2024 8:29 AM SENIOR MARKET RESEARCH ANALYST Fidencio Oliva M.D. LAB BODY FLUIDS AND STOOLS OR DERABLES Final Result [facility] [address] [facility] [address] [place] [address] * Glucose, Body Fluid (01/05/2024 12:50 PM SENIOR MARKET RESEARCH ANALYST) Only the most recent of2 resultswithin the time period is included. Glucose, BF 49 See Comment mg/dL 01/06/2024 11:13 AM SENIOR MARKET RESEARCH ANALYST DTL Comment: ----ADDITIONAL INFORMATION---- Body fluid glucose [...] cystic lesions. All other fluids refer to www.[employer].com for further interpretive information. This test has been modified from the event technician's instructions. Its performance characteristics were determined by [facility] in a manner consistent with CLIA requirements. This test has not been cleared or approved by the U.S. Food and Drug Administration. Fluid Type, Glucose PLEURAL 01/05 10:14 AM SENIOR MARKET RESEARCH ANALYST DTL Fluid (Pleural Fluid) 01/05/2024 12:50 PM SENIOR MARKET RESEARCH ANALYST 01/06/2024 10:01 AM SENIOR MARKET RESEARCH ANALYST Fidencio Oliva M.D. LAB BODY FLUIDS AND STOOLS OR DERABLES Final Result [facility] [place] [address] [place] [address], [facility] [place] [address] [place] [address] * Pneumonia Panel, PCR (01/04/2024 7:45 PM SENIOR MARKET RESEARCH ANALYST) Specimen Source SPUTUM 10:43 PM SENIOR MARKET RESEARCH ANALYST MKTO Acinetobacter calcoaceticus-balbir annii complex Undetected Undetected copies/mL 01/04/2024 10:43 PM SENIOR MARKET RESEARCH ANALYST MKTO Enterobacter cloacae complex Undetected Undetected copies/mL 01/04/2024 10:43 PM SENIOR MARKET RESEARCH ANALYST MKTO Escherichia coli Undetected Undetected copies/mL 01/04/2024 10:43 PM SENIOR MARKET RESEARCH ANALYST MKTO Haemophilus influenzae Undetected Undetected copies/mL 01/04/2024 10:43 PM SENIOR MARKET RESEARCH ANALYST MKTO Klebsiella aerogenes Undetected Undetected copies/mL 01/04/2024 10:43 PM SENIOR MARKET RESEARCH ANALYST MKTO Klebsiella oxytoca Undetected Undetected copies/mL 01/04/2024 10:43 PM SENIOR MARKET RESEARCH ANALYST MKTO Klebsiella pneumoniae complex Undetected Undetected copies/mL 01/04/2024 10:43 PM SENIOR MARKET RESEARCH ANALYST MKTO Moraxella catarrhalis Undetected Undetected copies/mL 01/04/2024 10:43 PM SENIOR MARKET RESEARCH ANALYST MKTO Proteus species Undetected Undetected copies/mL 01/04/2024 10:43 PM SENIOR MARKET RESEARCH ANALYST MKTO Pseudomonas aeruginosa Undetected Undetected copies/mL 01/04/2024 10:43 PM SENIOR MARKET RESEARCH ANALYST [facility]TO Serratia marcescens Undetected Undetected copies/mL 01/04/2024 10:43 PM SENIOR MARKET RESEARCH ANALYST MKTO Staphylococcus aureus complex Undetected Undetected copies/mL 01/04/2024 10:43 PM SENIOR MARKET RESEARCH ANALYST MKTO Streptococcus agalactiae Undetected Undetected copies/mL 01/04/2024 10:43 PM SENIOR MARKET RESEARCH ANALYST MKTO Streptococcus pneumoniae Undetected Undetected copies/mL 01/04/2024 10:43 PM SENIOR MARKET RESEARCH ANALYST MKTO Streptococcus pyogenes Undetected Undetected copies/mL 01/04/2024 10:43 PM SENIOR MARKET RESEARCH ANALYST MKTO Chlamydia pneumoniae Undetected Undetected 01/04/2024 10:43 PM SENIOR MARKET RESEARCH ANALYST MKTO Legionella pneumophila Undetected Undetected 01/04/2024 10:43 PM SENIOR MARKET RESEARCH ANALYST MKTO Mycoplasma pneumoniae Undetected Undetected 01/04/2024 10:43 PM SENIOR MARKET RESEARCH ANALYST MKTO Adenovirus Undetected Undetected 01/04/2024 10:43 PM SENIOR MARKET RESEARCH ANALYST MKTO Coronavirus Undetected Undetected 01/04/2024 10:43 PM SENIOR MARKET RESEARCH ANALYST MKTO Human Metapneumovirus Undetected Undetected 01/04/2024 10:43 PM SENIOR MARKET RESEARCH ANALYST MKTO Human Rhinovirus/Enterov irus Undetected Undetected 01/04/2024 10:43 PM SENIOR MARKET RESEARCH ANALYST MKTO Influenza A Undetected Undetected 01/04/2024 10:43 PM SENIOR MARKET RESEARCH ANALYST MKTO Influenza B Undetected Undetected 01/04/2024 10:43 PM SENIOR MARKET RESEARCH ANALYST [facility]TO Parainfluenza Undetected Undetected 01/04/2024 10:43 PM SENIOR MARKET RESEARCH ANALYST MKTO Respiratory Syncytial Virus Undetected Undetected 01/04/2024 10:43 PM SENIOR MARKET RESEARCH ANALYST [facility]TO Comment: ----ADDITIONAL INFORMATION---- This assay is performed using the FDA-cleared FilmArray Pneumonia Panel (PN) ([employer] Any initial empiric treatment guidance provided [...] SARS-CoV-2. Sputum (Sputum) 01/04/2024 7 :45 PM SENIOR MARKET RESEARCH ANALYST 01/04/2024 7:55 PM SENIOR MARKET RESEARCH ANALYST Octavio Cavazos, Ch.B. LAB MICROBIOLOGY - GENERAL ORDERABLES Final Result Performing Organization Address [facility] Co de Phone Number [facility] [address] [place] [address], [address] [address] * Bacterial Culture, Aerobic + Susceptibility, Respiratory (01/04/2024 7:45 PM SENIOR MARKET RESEARCH ANALYST) Bacterial Culture, Aerobic, Resp No growth after 2 days of incubation. 01/06/2024 8:19 AM SENIOR MARKET RESEARCH ANALYST [facility] Sputum (Sputum) 01/04/2024 7 :45 PM SENIOR MARKET RESEARCH ANALYST 01/04/2024 7:55 PM SENIOR MARKET RESEARCH ANALYST Comment:Specimen Source Site : Sputum us Octavio Cavazos, Ch.B. LAB MICROBIOLOGY - GENERAL ORDERABLES Final Result Performing Organization Address [facility] Co de Phone Number [facility] [address] [place] [address], [address] [address] * MRSA PCR, Nasal (01/04/2024 7:45 PM SENIOR MARKET RESEARCH ANALYST) MRSA Screen, Nasal by PCR Negative Negative 01/04/2024 9:24 PM SENIOR MARKET RESEARCH ANALYST [facility] Swab (Nares) 01/04/2024 7:45 PM SENIOR MARKET RESEARCH ANALYST 01/04/2024 7:53 PM SENIOR MARKET RESEARCH ANALYST us Frank Mccall M.D. LAB MICROBIOLOGY - GENERAL ORDERABLES Final Result Performing Organization Address [facility] Co de Phone Number [facility] [address] [place] [address], [address] [address] * Ankle, Right-Nursing Image Exam (01/04/2024 7:40 PM SENIOR MARKET RESEARCH ANALYST) 01/04/2024 7:39 PM SENIOR MARKET RESEARCH ANALYST Narrative IIMS - 01/04/2024 7:42 PM SENIOR MARKET RESEARCH ANALYST This order has been created and auto-finalized to support the import of images acquired without order. The clinical documentation to support these images can be found on the encounter that produced images. us Provider Not In System IMG NON RAD IMAGING PROCE DURROCHELLE Final Result IIMS NA * (TTE) 2D ECHO DOPPLER COLOR AND CONTRAST (01/04/2024 10:38 AM SENIOR MARKET RESEARCH ANALYST) Ejection Fraction 59 MC CV EIMS Sinus [...] Region Laterality Modality Echocardiography 01/04/2024 9:49 AM SENIOR MARKET RESEARCH ANALYST Impressions 01/04/2024 11:49 AM SENIOR MARKET RESEARCH ANALYST Echo performed at the patient's bedside. LEFT [...] per Echocardiography Contrast Administration Protocol Reference Document [id number] Rev 05/30/2021. Patient met an inclusion criterion and did not have contraindications in screening sections. For the complete report, see the Order-Level Documents. Narrative 01/04/2024 11:49 AM SENIOR MARKET RESEARCH ANALYST For the complete report, see the Order-Level [...] administered per EchocardiographyContrast Administration Protocol Reference Document [id number] Rev05/30/2021. Patient met an inclusion criterion and did not havecontraindications in screening sections. For the complete report, see the Order-Level Documents. us Jet Palomares M.D. ECHO PROCEDURES Sury kaye Result * (ABNORMAL) Urinalysis with Microscopic if Indicated (01/04/2024 5:56 AM SENIOR MARKET RESEARCH ANALYST) Source Urine, Urine, Midstream 01/04/2024 6:03 AM SENIOR MARKET RESEARCH ANALYST [facility] Clarity Cloudy(A) Clear 01/04/2024 6:37 AM SENIOR MARKET RESEARCH ANALYST MKTO Color Yellow 01/04/2024 6:37 AM SENIOR MARKET RESEARCH ANALYST [facility]TO Comment: ----REFERENCE VALUE---- Colorless Yellow Veronica Blood Negative Negative 01/04/2024 6:37 AM SENIOR MARKET RESEARCH ANALYST MK[facility] Nitrite Negative Negative 01/04/2024 6:37 AM SENIOR MARKET RESEARCH ANALYST MKTO Leukocyte Esterase Negative Negative 01/04/2024 6:37 AM SENIOR MARKET RESEARCH ANALYST MKTO Protein 30(A) mg/dL 01/04/2024 6:37 AM SENIOR MARKET RESEARCH ANALYST MKTO Comment: ----REFERENCE VALUE---- Negative Trace Glucose Negative Negative mg/dL 01/04/2024 6:37 AM SENIOR MARKET RESEARCH ANALYST MKTO Ketone Trace(A) Negative mg/dL 01/04/2024 6:37 AM SENIOR MARKET RESEARCH ANALYST MKTO Bilirubin Negative Negative 01/04/2024 6:37 AM SENIOR MARKET RESEARCH ANALYST MKTO pH 5.0 5.0 - 8.0 01/04/2024 6:37 AM SENIOR MARKET RESEARCH ANALYST MKTO Specific [place] 1.014 1.001 - 1.035 01/04/2024 6:37 AM SENIOR MARKET RESEARCH ANALYST MKTO Urobilinogen 0.2 0.2 - 1.0 mg/dL 01/04/2024 6:37 AM SENIOR MARKET RESEARCH ANALYST MKTO Urine (Urine, Midstream) 01/04/2024 5:56 AM SENIOR MARKET RESEARCH ANALYST 01/04/2024 6:02 AM SENIOR MARKET RESEARCH ANALYST us Jet Palomares M.D. LAB URINE ORDERABLES Fi nal Result [facility] [address] [place] [address], [place] [address] * Sodium, Random, Urine (01/04/2024 5:56 AM SENIOR MARKET RESEARCH ANALYST) Sodium, Random, U 28 mmol/L 01/04/2024 6:54 AM SENIOR MARKET RESEARCH ANALYST MKTO Comment: ----REFERENCE VALUE---- Random urine sodium may be interpreted in conjunction with serum sodium, using both values to calculate fractional excretion of sodium. Urine (Urine, Midstream) 01/04/2024 5:56 AM SENIOR MARKET RESEARCH ANALYST 01/04/2024 6:01 AM SENIOR MARKET RESEARCH ANALYST Fausto Bey M.D. LAB URINE ORDERABLES Final Resu lt Performing Organization Address City/[facility] Co de Phone Number [facility] [address] [place] [address], [place] [address] * (ABNORMAL) Microscopic Automated (01/04/2024 5:56 AM SENIOR MARKET RESEARCH ANALYST) White Blood Cells 4-10(A) /hpf 01/04/2024 6:58 AM SENIOR MARKET RESEARCH ANALYST MKTO Comment: ----REFERENCE VALUE---- Males: 0-3 Females: 0-10 Unknown: 0-10 Red Blood Cells None Seen 0 - 2 /hpf 01/04/2024 6:58 AM SENIOR MARKET RESEARCH ANALYST MKTO Hyaline Casts 4-10 /lpf 01/04/2024 6:58 AM SENIOR MARKET RESEARCH ANALYST MKTO Squamous Cells Occ-3 /hpf 01/04/2024 6:58 AM SENIOR MARKET RESEARCH ANALYST MKTO Urine 01/04/2024 5:56 AM SENIOR MARKET RESEARCH ANALYST 01/04/2024 6:02 AM SENIOR MARKET RESEARCH ANALYST Jet Palomares M.D. LAB URINE ORDERABLES Fi nal Result Performing Organization Address [facility] Co de Phone Number [facility] [address] [place] [address], [place] [address] * (ABNORMAL) Protein/Creatinine Ratio, Random, Urine (01/04/2024 5:56 AM SENIOR MARKET RESEARCH ANALYST) Protein, Total, Random, U 33 mg/dL 01/04/2024 6:54 AM SENIOR MARKET RESEARCH ANALYST TO Creatinine, Random, U 94 16 - 326 mg/dL 01/04/2024 6:54 AM SENIOR MARKET RESEARCH ANALYST [facility] Protein/Creati nine Ratio 0.35(H) <0.18 mg/mg 01/04/2024 6:54 AM SENIOR MARKET RESEARCH ANALYST [facility] Urine (Urine, Midstream) 01/04/2024 5:56 AM SENIOR MARKET RESEARCH ANALYST 01/04/2024 6:02 AM SENIOR MARKET RESEARCH ANALYST us Jet Palomares M.D. LAB URINE ORDERABLES Fi nal Result Performing Organization Address [facility]/ZIP Co de Phone Number [facility] [address] [place] [address] * (ABNORMAL) NT-Pro B-Type Natriuretic Peptide (BNP) (01/04/2024 4:56 AM SENIOR MARKET RESEARCH ANALYST) Only the most recent of3 resultswithin the time period is included. NT-Pro BNP 5163(H) <=540 pg/mL 01/04/2024 8:20 AM SENIOR MARKET RESEARCH ANALYST [facility] Comment: NT-proBNP values less than 300 pg/mL [...] failure. Blood (Blood, Venous) 01/04/2024 4:56 AM SENIOR MARKET RESEARCH ANALYST 01/04/2024 8:01 AM SENIOR MARKET RESEARCH ANALYST us Portia Ramos M.D., Ph.D. LAB BLOOD ADD-ON Final Res ult Performing Organization Address [facility]/ZIP Co de Phone Number [facility] [address] [place] [address], [place] [address] * (ABNORMAL) Iron and Total Iron-Binding Capacity (01/04/2024 4:56 AM SENIOR MARKET RESEARCH ANALYST) Iron 38(L) 50 - 150 mcg/dL 01/04/2024 8:32 AM SENIOR MARKET RESEARCH ANALYST [facility] Total Iron Binding Capacity 79(L) 250 - 400 mcg/dL 01/04/2024 8:32 AM SENIOR MARKET RESEARCH ANALYST [facility] Percent Saturation 48 14 - 50 % 01/04/2024 8:32 AM SENIOR MARKET RESEARCH ANALYST [facility] Blood (Blood, Venous) 01/04/2024 4:56 AM SENIOR MARKET RESEARCH ANALYST 01/04/2024 8:02 AM SENIOR MARKET RESEARCH ANALYST Portia Ramos M.D., Ph.D. LAB BLOOD ADD-ON Final Res ult [facility] [address] [place] [address] * Parathyroid Hormone (PTH) (01/04/2024 4:56 AM SENIOR MARKET RESEARCH ANALYST) Parathyroid Hormone (PTH), S 43 15 - 65 pg/mL 01/04/2024 8:32 AM SENIOR MARKET RESEARCH ANALYST TO Comment: Biotin has been identified by the event technician as a potential interfering substance. Higher concentrations of biotin may be found in multivitamins, hair/nail supplements, and workout supplements. If the result does not match clinical observations, repeat testing after patient refrains from the use of supplements for at least 12 hours. Blood (Blood, Venous) 01/04/2024 4:56 AM SENIOR MARKET RESEARCH ANALYST 01/04/2024 8:02 AM SENIOR MARKET RESEARCH ANALYST Portia Ramos M.D., Ph.D. LAB BLOOD ADD-ON Final Res ult [facility] [address] [place] [address], [place] [address] * (ABNORMAL) Ferritin (01/04/2024 4:56 AM SENIOR MARKET RESEARCH ANALYST) Ferritin, S 1703(H) 31 - 409 mcg/L 01/04/2024 8:32 AM SENIOR MARKET RESEARCH ANALYST [facility] Comment: Biotin has been identified by the event technician as a potential interfering substance. Higher concentrations of biotin may be found in multivitamins, hair/nail supplements, and workout supplements. If the result does not match clinical observations, repeat testing after patient refrains from the use of supplements for at least 12 hours. Blood (Blood, Venous) 01/04/2024 4:56 AM SENIOR MARKET RESEARCH ANALYST 01/04/2024 8:02 AM SENIOR MARKET RESEARCH ANALYST us Portia Ramos M.D., Ph.D. LAB BLOOD ADD-ON Final Res ult [facility] [address] [place] [address], [facility] MKTO [facility] [place] [address] * US Thoracentesis Right with Imaging Guidance (01/03/2024 5:04 PM SENIOR MARKET RESEARCH ANALYST) Anatomical Region Laterality Modality Chest, Ultrasound RST LOS, U ltrasound ARZ LOS, Procedure FLA LOS, Abdominal FLA LOS, Procedural, Procedural NWWI LOS Right Ultrasound Impressions 01/04/2024 8:03 AM SENIOR MARKET RESEARCH ANALYST Successful ultrasound guided diagnostic and therapeutic right thoracentesis. Narrative 01/04/2024 8:03 AM SENIOR MARKET RESEARCH ANALYST EXAM: US THORACENTESIS RIGHT WITH IMAGING GUIDANCE PROCEDURE: Sterile; 1% lidocaine for local anesthesia. Location: Right pleural space Needle size: 5 Fr [facility] Fluid Amount/Color: 150 mL of white/hubbard opaque [...] medications. Patient education provided by the care fast food team member. Ready to learn, no apparent [...] medications. Patient education provided by the care fast food team member. Ready to learn, no apparent learningbarriers were identified. Post-procedure care explained; patient expressedunderstanding of the content. IMPRESSION: Successful ultrasound guided diagnostic and therapeutic rightthoracentesis. Octavio Cavazos, Ch.B. IMG US PROCEDURES Final Result * Bacteria / Alix Culture, Blood #1 (01/03/2024 10:53 AM SENIOR MARKET RESEARCH ANALYST) Only the most recent of2 resultswithin the time period is included. Bacteria/Nereida da Culture, Blood No growth after 5 day/s of incubation. 01/08/2024 11:05 AM SENIOR MARKET RESEARCH ANALYST MKTO Blood (Blood, Peripheral Draw) 01/03/2024 10:53 AM SENIOR MARKET RESEARCH ANALYST 01/03/2024 10:58 AM SENIOR MARKET RESEARCH ANALYST Comment:Specimen Source Site : Blood Octavio Cavazos, Ch.B. LAB MICROBIOLOGY - GENERAL ORDERABLES Final Result [facility] [address] [place] [address], [place] [address] * Lactate for Sepsis with Reflex (01/03/2024 10:52 AM SENIOR MARKET RESEARCH ANALYST) Lactate, B 1.1 0.5 - 2.2 mmol/L 01/03/2024 11:01 AM SENIOR MARKET RESEARCH ANALYST MKTO Blood (Blood, Venous) 01/03/2024 10:52 AM SENIOR MARKET RESEARCH ANALYST 01/03/2024 10:58 AM SENIOR MARKET RESEARCH ANALYST us Octavio Cavazos, Ch.B. LAB BLOOD NON ADD- ON Final Result Performing Organization Address [facility] Co de Phone Number [facility] [address] [place] [address], [place] [address] * (ABNORMAL) Albumin (01/03/2024 10:51 AM SENIOR MARKET RESEARCH ANALYST) Only the most recent of2 resultswithin the time period is included. Albumin, P 3.0(L) 3.5 - 5.0 g/dL 01/03/2024 1:15 PM SENIOR MARKET RESEARCH ANALYST MKTO Blood (Blood, Venous) 01/03/2024 10:51 AM SENIOR MARKET RESEARCH ANALYST 01/03/2024 1:02 PM SENIOR MARKET RESEARCH ANALYST us Jet Palomares M.D. LAB BLOOD ADD-ON Final Result Performing Organization Address City/[facility]/ZIP Co de Phone Number [facility] [address] [place] [address], [place] [address] * pH (01/03/2024 6:42 AM SENIOR MARKET RESEARCH ANALYST) Only the most recent of2 resultswithin the time period is included. pH 7.43 7.35 - 7.45 pH 01/03/2024 7:00 AM SENIOR MARKET RESEARCH ANALYST MKTO Blood 01/03/2024 6:42 AM SENIOR MARKET RESEARCH ANALYST 01/03/2024 6:55 AM SENIOR MARKET RESEARCH ANALYST us Deanna Lewis APRN, C.N.P., D.N.P., M.S.N. LAB H ISTORICAL ORDERS Final Result [facility] [address] [place] [address], [facility] MKTO [facility] [place] [address] [place] [address] * (ABNORMAL) QuantiFERON-Tb Gold Plus, Blood (01/03/2024 6:42 AM SENIOR MARKET RESEARCH ANALYST) [facility] QuantiFERON-TB Gold Plus Result Indetermi parviz(A) Negative 01/07/2024 2:48 PM SENIOR MARKET RESEARCH ANALYST [facility] Comment: Indeterminate due to a low interferon-gamma level in the mitogen (positive control) tube. This may occur due to a low lymphocyte count, reduced lymphocyte activity or inability of the patient's lymphocytes to generate interferon-gamma. The reference range for the 'Mitogen minus Nil Result' is >=0.5 IU/mL. TB1 Ag minus Nil Result 0.00 IU/mL 01/07/2024 2:48 PM SENIOR MARKET RESEARCH ANALYST [facility] TB2 Ag minus Nil Result 0.00 IU/mL 01/07/2024 2:48 PM SENIOR MARKET RESEARCH ANALYST [facility] Mitogen minus Nil Result 0.01 IU/mL 01/07/2024 2:48 PM SENIOR MARKET RESEARCH ANALYST [facility] Nil Result 0.04 IU/mL 01/07/2024 2:48 PM SENIOR MARKET RESEARCH ANALYST [facility] Blood (Blood, Venous) 01/03/2024 6:42 AM SENIOR MARKET RESEARCH ANALYST 01/04/2024 10:57 AM SENIOR MARKET RESEARCH ANALYST Narrative [facility] - 01/07/2024 2:48 PM SENIOR MARKET RESEARCH ANALYST Specimen Information: Specimen ID: [id number] Specimen Type: Blood Specimen Collection Start Date: 01/03/2024 6:42 AM Specimen Received Date: 01/04/2024 10:57 AM Specimen ID: [id number] Specimen Type: Blood Specimen Collection Start Date: 01/03/2024 6:42 AM Specimen Received Date: 01/04/2024 10:57 AM Specimen ID: [id number] Specimen Type: Blood Specimen Collection Start Date: 01/03/2024 6:42 AM Specimen Received Date: 01/04/2024 10:57 AM Specimen ID: [id number] Specimen Type: Blood Specimen Collection Start Date: 01/03/2024 6:42 AM Specimen Received Date: 01/04/2024 10:57 AM us Jet Palomares M.D. LAB MICROBIOLOGY - BLOO D ORDERABLES Final Result Performing Organization Address [facility]/ZIP Co de Phone Number [facility] [address] [place], [place] [id number], [facility] [place] [address] * Vitamin D, Immunoassay, Total, Serum (01/03/2024 6:42 AM SENIOR MARKET RESEARCH ANALYST) Pathologist [facility] Vitamin D, Immunoassay, Total, S 23 20 - 80 ng/mL 01/04/2024 8:37 AM SENIOR MARKET RESEARCH ANALYST MKTO Comment: Optimum levels within the healthy population are 20-50, patients with bone disease may benefit from high levels within this range Blood (Blood, Venous) 01/03/2024 6:42 AM SENIOR MARKET RESEARCH ANALYST 01/04/2024 8:02 AM SENIOR MARKET RESEARCH ANALYST us Portia Raoms M.D., Ph.D. LAB BLOOD ADD-ON Final Res ult [facility] [address] [place] [address], [place] MKTO [facility] in [address] [address] * HBc Total Ab, Serum (01/03/2024 6:42 AM SENIOR MARKET RESEARCH ANALYST) Pathologist [facility] HBc Total Ab, S Negative Negative 01/04/2024 11:52 AM SENIOR MARKET RESEARCH ANALYST [facility] Blood (Blood, Peripheral Draw) 01/03/2024 6:42 AM SENIOR MARKET RESEARCH ANALYST 01/04/2024 7:28 AM SENIOR MARKET RESEARCH ANALYST us Jet Palomares M.D. LAB MICROBIOLOGY - BLOO D ORDERABLES Final Result [facility] [address] [place] [address] [facility] [address] [place] [address] * HBs Antibody, Serum (01/03/2024 6:42 AM SENIOR MARKET RESEARCH ANALYST) HBs Antibody, S Negative 7:57 AM SENIOR MARKET RESEARCH ANALYST MKTO Comment: Patient is presumed NOT to be immune to infection with HBV. Consumption of high-dose biotin supplement within 12 hours of blood collection for this test can cause false-negative results. ----REFERENCE VALUE---- Unvaccinated: Negative Vaccinated: Positive HBs Antibody, Quantitative, S <3.50 mIU/mL 01/03/2024 7:57 AM SENIOR MARKET RESEARCH ANALYST MKTO Comment: ----REFERENCE VALUE---- <8.50: Negative 8.50-11.49: Indeterminate >=11.50: Positive Blood (Blood, Peripheral Draw) 01/03/2024 6:42 AM SENIOR MARKET RESEARCH ANALYST 01/03/2024 6:55 AM SENIOR MARKET RESEARCH ANALYST us Jet Palomares M.D. LAB MICROBIOLOGY - BLOO D ORDERABLES Final Result [facility] [address] [place] [address], [facility] MKTO [facility] in [address] [address] * Hepatitis B Surface Antigen (01/03/2024 6:42 AM SENIOR MARKET RESEARCH ANALYST) HBs Antigen, S Nonreactive Nonreactive 01/03/2024 8:07 AM SENIOR MARKET RESEARCH ANALYST MKTO Blood (Blood, Peripheral Draw) 01/03/2024 6:42 AM SENIOR MARKET RESEARCH ANALYST 01/03/2024 6:55 AM SENIOR MARKET RESEARCH ANALYST us Jet Palomares M.D. LAB MICROBIOLOGY - BLOO D ORDERABLES Final Result Performing Organization Address City/[facility]/ZIP Co de Phone Number [facility] [address] [place] [address], [place] [address] * (ABNORMAL) Calcium, Ionized (01/03/2024 6:42 AM SENIOR MARKET RESEARCH ANALYST) Only the most recent of2 resultswithin the time period is included. Pathologist [facility] Calcium, Ionized, B 4.31(L) 4.65 - 5.30 mg/dL 01/03/2024 7:00 AM SENIOR MARKET RESEARCH ANALYST [facility] Blood 01/03/2024 6:42 AM SENIOR MARKET RESEARCH ANALYST 01/03/2024 6:55 AM SENIOR MARKET RESEARCH ANALYST us Deanna Lewis APRN, C.N.P., D.N.P., M.S.N. LAB B LOOD NON ADD-ON Final Result [facility] [address] [place] [address], [place] [address] * (ABNORMAL) Broad Range Bacteria PCR + Sequencing (01/03/2024 6:10 AM SENIOR MARKET RESEARCH ANALYST) [facility] Broad Range Bacteria PCR+Sequenci ng This test was developed and its performance characteristics determined by [facility] in a manner consistent with CLIA requirements. This test has not been cleared or approved by the U.S. Food and Drug Administration. (A) 01/12/2024 9:31 AM SENIOR MARKET RESEARCH ANALYST [facility] Broad Range Bacteria PCR+Sequenci ng STREPTOCOCCUS INTERMEDIUS DNA detected (A) 01/12/2024 9:31 AM SENIOR MARKET RESEARCH ANALYST [facility] Comment:Semi-Urgent Result. Semi-Urgent This is a semi-urgent result(AUGUSTE) [facility] Fluid (Pleural Fluid, Right) 01/03/2024 6:10 AM SENIOR MARKET RESEARCH ANALYST 01/04/2024 10:00 AM SENIOR MARKET RESEARCH ANALYST Comment:Specimen Source Site : Fluid us Octavio Cavazos, Ch.B. LAB MICROBIOLOGY - GENERAL ORDERABLES Final Result Performing Organization Address City/[facility]/ZIP Co de Phone Number [facility] [address] [place] [address], [facility] DTL [facility] [address] [place] [address] * Leukemia/Lymphoma Immunophenotyping by Flow Cytometry (01/03/2024 6:10 AM SENIOR MARKET RESEARCH ANALYST) LCMS Result Performed 01/05/2024 1:37 PM SENIOR MARKET RESEARCH ANALYST DTL Final Diagnosis: Pleural fluid, flow cytometric immunophenotyp ing: No monotypic B-cell population or increase in blasts identified. Reviewed by: Blank Crisostomo M.D. 01/05/2024 1:37 PM SENIOR MARKET RESEARCH ANALYST DTL Special Studies: Results: Blasts: Not increased by CD45/side scatter and CD34. B-cells: Absence of [id number] B cells. B-cell markers tested: CD19, CD10 and kappa and lambda surface light chains. T-cells/NK-joelle ls: No aberrant phenotype by CD3 and CD16. Quality assessment: Specimen received within validated guidelines. 01/05/2024 1:37 PM SENIOR MARKET RESEARCH ANALYST DTL Microscopic Description A Hu-Giemsa- stained slide prepared from the flow cytometry specimen is examined. Morphology is suboptimal. 01/05/2024 1:37 PM SENIOR MARKET RESEARCH ANALYST DTL Comment: ----ADDITIONAL INFORMATION---- This test was developed using an analyte specific reagent. Its performance characteristics were determined by [facility] in a manner consistent with CLIA requirements. This test has not been cleared or approved by the U.S. Food and Drug Administration. Fluid (Pleural Fluid, Right) 01/03/2024 6:10 AM SENIOR MARKET RESEARCH ANALYST 01/04/2024 8:57 AM SENIOR MARKET RESEARCH ANALYST us Octavio Cavazos, Ch.B. LAB GENETIC TESTIN G Final Result Performing Organization Address [facility]/ZIP Co de Phone Number [facility] [address] [place] [address], [facility] [facility] DTL [address] [facility] [address] [place] [address] * M tuberculosis Complex PCR (01/03/2024 6:10 AM SENIOR MARKET RESEARCH ANALYST) MTB Complex PCR, Specimen Source Fluid, Pleural Fluid, Right 01/06/2024 7:45 PM SENIOR MARKET RESEARCH ANALYST DTL MTB Complex PCR, Result Negative Not Applicable 01/06/2024 7:45 PM SENIOR MARKET RESEARCH ANALYST DTL Comment: A mycobacterial culture must always [...] its performance characteristics determined by [facility] in a manner consistent with CLIA requirements. This test has not been cleared or approved by the U.S. Food and Drug Administration. Fluid (Pleural Fluid, Right) 01/03/2024 6:10 AM SENIOR MARKET RESEARCH ANALYST 01/04/2024 10:24 AM SENIOR MARKET RESEARCH ANALYST us Octavio Cavazos, Ch.B. LAB MICROBIOLOGY - GENERAL ORDERABLES Final Result [facility] [address] [place] [address], [facility] DT [address] [facility] [address] [place] [address] * Cholesterol, Body Fluid (01/03/2024 6:10 AM SENIOR MARKET RESEARCH ANALYST) Cholesterol, BF 34 See Comment mg/dL 01/05/2024 8:47 AM SENIOR MARKET RESEARCH ANALYST DTL Comment: ----ADDITIONAL INFORMATION---- Pleural fluid cholesterol concentrations > 45 to 65 mg/dL are consistent with exudative effusions. Cholesterol concentrations > 200 mg/dL suggest pseudochylous effusions. Peritoneal fluid cholesterol concentrations > 32 to 70 mg/dL suggest a malignant cause of ascites. All other fluids refer to http://www.fivesquids.co.uks.com for further interpretive information. This test has been modified from the event technician's instructions. Its performance characteristics were determined by [facility] in a manner consistent with CLIA requirements. This test has not been cleared or approved by the U.S. Food and Drug Administration. Fluid Type Pleural 01/05/2024 8:14 AM SENIOR MARKET RESEARCH ANALYST DTL Fluid (Pleural Fluid, Right) 01/03/2024 6:10 AM SENIOR MARKET RESEARCH ANALYST 01/05/2024 7:49 AM SENIOR MARKET RESEARCH ANALYST Octavio Cavazos, ChElielBEliel LAB BODY FLUIDS AN D STOOLS ORDERABLES Final Result [facility] [address] [place] [address], [facility] [address] [place] [address] * HI INS NON-BLAINE CVC >5YR, HI US GUIDE VASC ACCESS, LDA ANE CENTRAL LINE DOUBLE LUMEN ADULT, MC ANE CENTRAL LINE GENERIC PERFORMABLE (01/02/2024 3:47 PM SENIOR MARKET RESEARCH ANALYST) Narrative Nikki Salinas M.D. - 01/02/2024 3:47 PM SENIOR MARKET RESEARCH ANALYST Nikki Salinas M.D. 01/02/2024 3:50 PM Invasive [...] Image-General Surgery Image Exam (01/02/2024 3:30 PM SENIOR MARKET RESEARCH ANALYST) Narrative [facility] - 01/06/2024 8:53 PM SENIOR MARKET RESEARCH ANALYST This order has been created and auto-finalized to support the import of images acquired without order. The clinical documentation to support these images can be found on the encounter that produced images. us Provider Not In System IMG NON RAD IMAGING PROCE DURES Final Result [facility] NA * US Kidneys Bilateral with Bladder (01/02/2024 10:15 AM SENIOR MARKET RESEARCH ANALYST) Anatomical Region Laterality Modality Abdomen, Renal, Ultrasound R ST LOS, Ultrasound ARZ LOS, Ultrasound FLA LOS Bilateral Ultrasound Impressions 01/02/2024 10:57 AM SENIOR MARKET RESEARCH ANALYST 1. No hydronephrosis. 2. Bilateral simple appearing renal cysts. Narrative 01/02/2024 10:57 AM SENIOR MARKET RESEARCH ANALYST EXAM: US KIDNEYS BILATERAL WITH BLADDER COMPARISON: [...] * CK (Creatine Kinase) (01/02/2024 4:10 AM SENIOR MARKET RESEARCH ANALYST) Creatine Kinase, P 78 39 - 308 U/L 01/02/2024 9:49 AM SENIOR MARKET RESEARCH ANALYST MKTO Blood (Blood, Venous) 01/02/2024 4:10 AM SENIOR MARKET RESEARCH ANALYST 01/02/2024 9:30 AM SENIOR MARKET RESEARCH ANALYST us Jet Palomares M.D. LAB BLOOD ADD-ON Final Result [facility] [address] [place] [address], [place] [address] * Lactate, B (01/02/2024 3:41 AM SENIOR MARKET RESEARCH ANALYST) Pathologist [facility] Lactate, B 0.8 0.5 - 2.2 mmol/L 01/02/2024 4:47 AM SENIOR MARKET RESEARCH ANALYST MKTO Blood (Blood, Venous) 01/02/2024 3:41 AM SENIOR MARKET RESEARCH ANALYST 01/02/2024 4:45 AM SENIOR MARKET RESEARCH ANALYST us Deanna Lewis APRN, C.N.P., D.N.P., M.S.N. LAB B LOOD NON ADD-ON Final Result Performing Organization Address City/[facility]/ZIP Co de Phone Number [facility] [address] [place] [address] * (ABNORMAL) Osmolality (01/02/2024 3:41 AM SENIOR MARKET RESEARCH ANALYST) [facility] Osmolality, S 338(H) 276 - 306 mOsm/kg 01/02/2024 5:40 AM SENIOR MARKET RESEARCH ANALYST MKTO Blood (Blood, Venous) 01/02/2024 3:41 AM SENIOR MARKET RESEARCH ANALYST 01/02/2024 4:05 AM SENIOR MARKET RESEARCH ANALYST us Fausto Bey M.D. LAB BLOOD ADD-ON Final Result [facility] [address] [place] [address] * (ABNORMAL) Blood Gas with Coox, Venous (01/02/2024 3:41 AM SENIOR MARKET RESEARCH ANALYST) [facility] pO2, Venous 49 Not applicable mm Hg 01/02/2024 4:14 AM SENIOR MARKET RESEARCH ANALYST [facility] pCO2, Venous 29(L) 41 - 51 mm Hg 4:14 AM SENIOR MARKET RESEARCH ANALYST MKTO pH, Venous 7.29(L) 7.32 - 7.43 pH 01/02/2024 4:14 AM SENIOR MARKET RESEARCH ANALYST MKTO Base Excess, Venous -12 Not applicable mmol/L 01/02/2024 4:14 AM SENIOR MARKET RESEARCH ANALYST [facility] HCO3, Venous 13 Not applicable mmol/L 01/02/2024 4:14 AM SENIOR MARKET RESEARCH ANALYST MKTO Hemoglobin, Venous 9.6(L) 13.2 - 16.6 g/dL 01/02/2024 4:14 AM SENIOR MARKET RESEARCH ANALYST MKTO O2Hb, Venous 79.4 Not applicable % 01/02/2024 4:14 AM SENIOR MARKET RESEARCH ANALYST [facility] COHb, Venous 0.2 <3.0 % 01/02/2024 4:14 AM SENIOR MARKET RESEARCH ANALYST MK[facility] MetHb, Venous 1.2 <1.5 % 01/02/2024 4:14 AM SENIOR MARKET RESEARCH ANALYST MKTO CtO2, Venous 10.8 Not Applicable vol % 01/02/2024 4:14 AM SENIOR MARKET RESEARCH ANALYST MKTO Blood (Blood, Venous) 01/02/2024 3:41 AM SENIOR MARKET RESEARCH ANALYST 01/02/2024 4:05 AM SENIOR MARKET RESEARCH ANALYST us Fausto Bey M.D. LAB BLOOD NON ADD-ON Final Resu lt [facility] [address] [place] [address], [facility] MKTO [facility] [place] [address] * CT HEAD/BRAIN WO CON-Outside CT Neuro (01/01/2024 2:20 PM SENIOR MARKET RESEARCH ANALYST) 01/01/2024 2:17 PM SENIOR MARKET RESEARCH ANALYST Narrative [facility] - 01/01/2024 3:56 PM SENIOR MARKET RESEARCH ANALYST This order has been created and [...] Advance Directives For more information, please contact: [phone] * DNR/DNI (Latest Code Status on File) Date Activated Date Inactivated Comments 01/01/2024 9:20 PM 01/11/2024 6:43 PM Question Answer Comments DNR/DNI (Do Not Resuscitate/Do Not Intubate): Orquidea motta-Patient Care Teams Transportation Department Supervisor Relationship Specialty Start Date End Date Elsewhere, Pcp PCP - General Internal Medicine 01/04/24
--- OUTSIDE RECORDS SUMMARY | 2024-01-26 10:54 | XMS_ITS | Encounter Summary ---
Author Organization [facility] Address [address] [place] [address] Care Team Providers Care [place] Name Role Phone Elsewhere, Pcp Primary Care Provider Unavailabl e Reason for Referral * MRI/CAT/PET Scan (Routine) - Authorized Specialty Diagnoses / Procedures Referred By Contac t Referred To Contact Radiology Diagnoses Pneumonia Procedures CT Chest with IV Contrast Clara Jones PElielA.-CEliel [address] [place] [phone] Phone: tel: fax: [facility] Region Referral ID Status Reason Start Date Expiration Date V isits Requested Visits Authorized [id number] Authorized 01/25/2024 01/24/2025 1 1 ER BOOTS AND SHOES REPAIRER Reason for Visit * Reason Onset Date Comments Order Request 01/25/2024 Encounter Details Date Type Department Care Team (Late st Contact Info) Description 01/25/2024 Clinical Communication Department of Infectious Diseases in [address] [phone] Sarah Perry M.D. [address] [place] [phone] Order Request Social History Tobacco Use Types Packs/Day Years Used Date Smoking Tobacco: Never Passive Smoke Exposure: Never Smokeless Tobacco: Never [facility] Utilities Answer Date Recorded In the past [...] your living situation today? I have a [facility] place to live 01/10/2024 Sex and Gender Information Value Date Recorded Sex Assigned at Not on file Legal Sex Male 3:31 PM RUBBER BOOTS AND SHOES REPAIRER Gender Identity Not on file Sexual Orientation Not on file documented as of this encounter Miscellaneous Notes * Addendum Note - Stacy Quintana R.N. - 01/25/2024 4:33 PM CSTAddended by: STACY QUINTANA on: 01/25/2024 04:33 PM Modules accepted: Orders ER BOOTS AND SHOES REPAIRER * Telephone Encounter - Stacy Quintana R.N. - 01/25/2024 4:03 PM RUBBER BOOTS AND SHOES REPAIRER Outside CT report received and sent for scanning to patient chart. Results reviewed with Clara Jones PA-C. Per Clara, plan is as follows: Patient will continue on oral Augmentin 500 mg BID for two additional weeks, tentative stop date 02/08/2024 Patient will repeat labs, CBC and CMP in approximately two weeks Patient will have repeat chest CT in approximately two weeks Patient will follow-up with Infectious Disease after repeat imaging, around 02/08/2024. Due to difficulty with getting patient to the clinic and limited clinic availability, will review results (lab and CT) with provider once this has been complete. RN was not able to reach patient/spouse this afternoon. Will attempt to reach them tomorrow to review above recommendations. Will need to ask if preference is still [facility] for obtaining labs and CT and fax orders accordingly. Updated rx of Augmentin has been sent. Will place reminder for ID to follow-up with patient in two weeks, after testing has been completed. ER BOOTS AND SHOES REPAIRER * Telephone Encounter - Stacy Quintana R.N. - 01/25/2024 9:04 AM RUBBER BOOTS AND SHOES REPAIRER Spoke with spouse, Viviana ([phone]). Patient identifiers obtained x2 for verification purposes. Spouse relays that it is just too difficult to get patient to [facility] for f/u appts. Patient was scheduled to see both [facility] and [facility] today with labs prior. Unfortunately, they have cancelled both of these appointments. Infectious Disease is following patient for right-sided empyema with chest tube, Gram+ cocci, assistance with empiric antibiotic. OPAT episode initiated at discharge for monitoring purposes. Patient was discharged home on oral antibiotics, with tentative end date 01/26/2024. See below for ID sign off. INFECTIOUS DISEASES SIGN OFF NOTE Sign off antibiotics: Augmentin oral 500 b.i.d. (based on current creatinine clearance) Tentative stop date: 01/26/2024; final stop date to be determined at follow up visit No PICC line needed Monitoring lab recommendations:No 5. Follow up indicated: Follow up with infectious diseases on 01/26/[address] chest, and CBC, CMP. Patient had CT completed on 01/22/2024 at [facility]. Labs were scheduled for today but have been cancelled at patient's request. Reviewed with spouse the importance of completing these for follow-up. She is requesting they be completed at [facility]; RN contacted [facility] and spoke with main lab staff. They are able to accommodate lab appointment today in the main lab. Orders for CBC and CMP faxed to [facility]: [phone]. Relayed this to spouse, Viviana and reviewed it would be best to get these done as soon as possible. Spouse is also asking about medication to protect kidneys. She states this was something that was discussed in the hospital. RN again reviewed that ID is following patient for infection and I am unsure what was discussed from nephrology standpoint. Advised spouse to contact patient's PCP and surface hydrologist for further direction in regards to this. Spouse states patient has PCP at [facility] and surface hydrologist at [facility]. She agrees to contact PCP for follow-up appointment post-hospital. Additionally, RN received request to call-back patient's son, Everton. Spoke with Everton in regards to patient's appointments. He is concerned that patient needs follow-up. Everton states patient is doing better but continues to have bilateral lower extremity edema. He also expresses concerns about patient's kidneys and again I reviewed with Everton that ID unfortunately cannot provide recommendations on this but I did encourage that patient follow-up closely with PCP given he cannot make today's appointments. Also reviewed contacting surface hydrologist. Everton stated understanding and will make sure patient gets scheduled for follow-up at local clinic ([facility]). At this time we will await CT and lab results and then review with ID provider. Education was provided to spouse that we cannot provide further plan of care without these. Also reviewed that without a full assessment it may be difficult for our providers to provide recommendations. Again encouragedthat patient follow-up with PCP at the very least. It would be beneficial for him to also see his surface hydrologist. Spouse states she will call for these appointments. Will follow-up with both spouse andson, Everton after ID provider can review. Addendum [phone] Lab faxed to [phone] at patient/spouse request. Confirmation received. ER BOOTS AND SHOES REPAIRER ER BOOTS AND SHOES REPAIRER ER BOOTS AND SHOES REPAIRER documented in this encounter Plan of Treatment Scheduled Orders Name Type Priority Associated Diagnoses Orde r Schedule CT Chest with IV Contrast Imaging RAD - Routine (most inpatients and all outpatients) Pneumonia Expected: 02/08/2024, Expires: 04/24/2025 documented as of this encounter Visit Diagnoses Diagnosis Pneumonia- Primary documented in this encounter Care Teams [place] Relationship Specialty Start Date End Date Elsewhere, Pcp PCP - General Internal Medicine 01/04/24 documented as of this encounter
--- OUTSIDE RECORDS SUMMARY | 2024-01-26 10:54 | XMS_ITS ---
Author Organization [facility] Address [address] [place] [address] Care Team Providers Care Employee Communications Specialist Name Role Phone Unavailable Unavailable Unavailable Surgery Details Not on file Complications Check Surgery Details section. Procedure Estimated Blood Loss Check Surgery Details section. Procedure Findings Check Surgery Details section. Procedure Specimens Taken Check Surgery Details section.
--- OUTSIDE RECORDS SUMMARY | 2024-01-26 10:54 | XMS_ITS ---
Author Organization [facility] Address [address] [place] [address] Care Team Providers Care Ham Smoker Name Role Phone Elsewhere, Pcp Primary Care [...] OUTSIDE CT BODY Routine 01/22/2024 11:00 AM CHEMICAL SUPERVISOR FL SWALLOW FUNCTION WITH VIDEO AND SPEECH RAD - Routine (most inpatients and all outpatients) 01/11/2024 1:48 PM CHEMICAL SUPERVISOR TESTING LOCATION Timed 01/11/2024 11:5 1 AM CHEMICAL SUPERVISOR TYPE AND SCREEN Timed 01/11/2024 11:51 AM CHEMICAL SUPERVISOR HEMOGLOBIN, B Timed 01/11/2024 11:51 AM CHEMICAL SUPERVISOR DX CHEST PORTABLE 1 VIEW RAD - Routine (most inpatients and all outpatients) 01/11/2024 6:54 AM CHEMICAL SUPERVISOR PHOSPHORUS (INORGANIC), S Routine 01/11/2024 4:48 AM CHEMICAL SUPERVISOR MAGNESIUM, S Routine 01/11/2024 4:48 AM CHEMICAL SUPERVISOR BASIC METABOLIC PANEL, S/P Routine 01/11/2024 4:48 AM CHEMICAL SUPERVISOR CBC WITH DIFFERENTIAL, B Routine 01/11/2024 4:48 AM CHEMICAL SUPERVISOR HEPATIC FUNCTION PANEL, S Routine 01/11/2024 4:48 AM CHEMICAL SUPERVISOR DX CHEST PORTABLE 1 VIEW RAD - Routine (most inpatients and all outpatients) 01/10/2024 6:50 AM CHEMICAL SUPERVISOR PHOSPHORUS (INORGANIC), S Routine 01/10/2024 6:25 AM CHEMICAL SUPERVISOR MAGNESIUM, S Routine 01/10/2024 6:25 AM CHEMICAL SUPERVISOR BASIC METABOLIC PANEL, S/P Routine 01/10/2024 6:25 AM CHEMICAL SUPERVISOR CBC WITH DIFFERENTIAL, B Routine 01/10/2024 6:25 AM CHEMICAL SUPERVISOR HEPATIC FUNCTION PANEL, S Routine 01/10/2024 6:25 AM CHEMICAL SUPERVISOR DX CHEST PORTABLE 1 VIEW RAD - Routine (most inpatients and all outpatients) 01/09/2024 6:50 AM CHEMICAL SUPERVISOR MORPHOLOGY EVALUATION Routine 01/09/2024 6:42 AM CHEMICAL SUPERVISOR MANUAL DIFFERENTIAL, B Routine 01/09/2024 6:42 AM CHEMICAL SUPERVISOR PHOSPHORUS (INORGANIC), S Routine 01/09/2024 6:42 AM CHEMICAL SUPERVISOR MAGNESIUM, S Routine 01/09/2024 6:42 AM CHEMICAL SUPERVISOR BASIC METABOLIC PANEL, S/P Routine 01/09/2024 6:42 AM CHEMICAL SUPERVISOR CBC WITH DIFFERENTIAL, B Routine 01/09/2024 6:42 AM CHEMICAL SUPERVISOR HEPATIC FUNCTION PANEL, S Routine 01/09/2024 6:[address] CHEST WITHOUT IV CONTRAST RAD - Routine (most inpatients and all outpatients) 01/08/2024 1:11 PM CHEMICAL SUPERVISOR DX CHEST 1 VIEW RAD - Routine (most inpatients and all outpatients) 01/08/2024 7:16 AM CHEMICAL SUPERVISOR MORPHOLOGY EVALUATION Routine 01/08/2024 4:47 AM CHEMICAL SUPERVISOR MANUAL DIFFERENTIAL, B Routine 01/08/2024 4:47 AM CHEMICAL SUPERVISOR PHOSPHORUS (INORGANIC), S Routine 01/08/2024 4:47 AM CHEMICAL SUPERVISOR MAGNESIUM, S Routine 01/08/2024 4:47 AM CHEMICAL SUPERVISOR BASIC METABOLIC PANEL, S/P Routine 01/08/2024 4:47 AM CHEMICAL SUPERVISOR CBC WITH DIFFERENTIAL, B Routine 01/08/2024 4:47 AM CHEMICAL SUPERVISOR HEPATIC FUNCTION PANEL, S Routine 01/08/2024 4:47 AM CHEMICAL SUPERVISOR HEMOGLOBIN, B Timed 01/07/2024 3:50 PM CHEMICAL SUPERVISOR DX CHEST 1 VIEW RAD - Routine (most inpatients and all outpatients) 01/07/2024 7:14 AM CHEMICAL SUPERVISOR MORPHOLOGY EVALUATION Routine 01/07/2024 5:29 AM CHEMICAL SUPERVISOR PHOSPHORUS (INORGANIC), S Routine 01/07/2024 5:29 AM CHEMICAL SUPERVISOR MAGNESIUM, S Routine 01/07/2024 5:29 AM CHEMICAL SUPERVISOR BASIC METABOLIC PANEL, S/P Routine 01/07/2024 5:29 AM CHEMICAL SUPERVISOR CBC WITH DIFFERENTIAL, B Routine 01/07/2024 5:29 AM CHEMICAL SUPERVISOR HEPATIC FUNCTION PANEL, S Routine 01/07/2024 5:29 AM CHEMICAL SUPERVISOR MISCELLANEOUS SENT OUT LAB TEST Routine 01/06/2024 11:36 AM CHEMICAL SUPERVISOR TROPHERYMA WHIPPLEI PCR, B Routine 01/06/2024 11:36 AM CHEMICAL SUPERVISOR HC REF INF DIS DNA/PCR/NGS SEQ Routine 01/06/2024 10:59 AM CHEMICAL SUPERVISOR DX CHEST 1 VIEW RAD - Routine (most inpatients and all outpatients) 01/06/2024 7:19 AM CHEMICAL SUPERVISOR MORPHOLOGY EVALUATION Timed 01/06/2024 5:37 AM CHEMICAL SUPERVISOR MANUAL DIFFERENTIAL, B Timed 01/06/2024 5:37 AM CHEMICAL SUPERVISOR MAGNESIUM, S Timed 01/06/2024 5:37 AM CHEMICAL SUPERVISOR CBC WITH DIFFERENTIAL, B Timed 01/06/2024 5:37 AM CHEMICAL SUPERVISOR RENAL FUNCTION PANEL, S Timed 01/06/2024 5:37 AM CHEMICAL SUPERVISOR ECG STAT 01/06/2024 5:32 AM CHEMICAL SUPERVISOR IR CHEST TUBE PLACEMENT RAD - Routine (most inpatients and all outpatients) 01/05/2024 1:42 PM CHEMICAL SUPERVISOR CYTOLOGY NON-CANE WEIGHER HELPER Routine 01/05/2024 12:5 0 PM CHEMICAL SUPERVISOR GLUCOSE, BODY FLUID Timed 01/05/2024 1 2:50 PM CHEMICAL SUPERVISOR TRIGLYCERIDES, BF Timed 01/05/2024 12: 50 PM CHEMICAL SUPERVISOR PROTEIN, TOTAL, BF Timed 01/05/2024 12 :50 PM CHEMICAL SUPERVISOR PH, PLEURAL FLUID Timed 01/05/2024 12: 50 PM CHEMICAL SUPERVISOR LACTATE DEHYDROGENASE (LD), BF Timed 01/05/2024 12:50 PM CHEMICAL SUPERVISOR CELL COUNT AND DIFFERENTIAL, BF Timed 01/05/2024 12:50 PM CHEMICAL SUPERVISOR BACTERIAL CULTURE, ANAEROBIC + SUSC Timed 01/05/2024 12:50 PM CHEMICAL SUPERVISOR GRAM STAIN Timed 01/05/2024 12:50 PM CHEMICAL SUPERVISOR BACTERIAL CULTURE, AEROBIC + SUSC Timed 01/05/2024 12:50 PM CHEMICAL SUPERVISOR MORPHOLOGY EVALUATION Routine 01/05/2024 5:52 AM CHEMICAL SUPERVISOR MANUAL DIFFERENTIAL, B Routine 01/05/2024 5:52 AM CHEMICAL SUPERVISOR BASIC METABOLIC PANEL, S/P Routine 01/05/2024 5:52 AM CHEMICAL SUPERVISOR CBC WITH DIFFERENTIAL, B Routine 01/05/2024 5:52 AM CHEMICAL SUPERVISOR PNEUMONIA PANEL, PCR Routine 01/04/2024 7:45 PM CHEMICAL SUPERVISOR GRAM STAIN Routine 01/04/2024 7:45 PM CHEMICAL SUPERVISOR BACTERIAL CULTURE, AEROBIC + SUSC, RESP Routine 01/04/2024 7:45 PM CHEMICAL SUPERVISOR NASAL SCREEN FOR MRSA BY RAPID PCR Routine 01/04/2024 7:45 PM CHEMICAL SUPERVISOR NURSING IMAGE EXAM Routine 01/04/2024 7: 40 PM CHEMICAL SUPERVISOR (TTE) 2D ECHO DOPPLER COLOR AND CONTRAST Routine 01/04/2024 10:38 AM CHEMICAL SUPERVISOR HC URINALYSIS AUTO WO MICRO Routine 01/04/2024 5:56 AM CHEMICAL SUPERVISOR PROTEIN/CREATININE RATIO, RANDOM, URINE Routine 01/04/2024 5:56 AM CHEMICAL SUPERVISOR URINALYSIS WITH MICROSCOPIC IF INDICATED, U Routine 01/04/2024 5:56 AM CHEMICAL SUPERVISOR SODIUM, RANDOM, U Routine 01/04/2024 5:5 6 AM CHEMICAL SUPERVISOR NT-PRO B-TYPE NATRIURETIC PEPTIDE (BNP), S Routine 01/04/2024 4:56 AM CHEMICAL SUPERVISOR PARATHYROID HORMONE (PTH), S Routine 01/04/2024 4:56 AM CHEMICAL SUPERVISOR IRON AND TOT IRON-BINDING CAPACITY, S/P Routine 01/04/2024 4:56 AM CHEMICAL SUPERVISOR FERRITIN, S Routine 01/04/2024 4:56 AM CHEMICAL SUPERVISOR BASIC METABOLIC PANEL, S/P Routine 01/04/2024 4:56 AM CHEMICAL SUPERVISOR CBC WITH DIFFERENTIAL, B Routine 01/04/2024 4:56 AM CHEMICAL SUPERVISOR CYTOLOGY NON-CANE WEIGHER HELPER Timed 01/03/2024 5:09 PM CHEMICAL SUPERVISOR US THORACENTESIS RIGHT WITH IMAGING GUIDANCE RAD - Routine (most inpatients and all outpatients) 01/03/2024 5:04 PM CHEMICAL SUPERVISOR BASIC METABOLIC PANEL, S/P Timed 01/03/2024 1:56 PM CHEMICAL SUPERVISOR HEMODIALYSIS Routine 01/03/2024 11:28 AM CHEMICAL SUPERVISOR BACTERIA / ALIX CULTURE, BLOOD Routine 01/03/2024 10:53 AM CHEMICAL SUPERVISOR LACTATE FOR SEPSIS WITH REFLEX Routine 01/03/2024 10:52 AM CHEMICAL SUPERVISOR BACTERIA / ALIX CULTURE, BLOOD Routine 01/03/2024 10:52 AM CHEMICAL SUPERVISOR ALBUMIN, S/P Routine 01/03/2024 10:51 AM CHEMICAL SUPERVISOR HEMODIALYSIS Routine 01/03/2024 8:16 AM CHEMICAL SUPERVISOR VITAMIN D, IMMUNOASSAY, TOTAL, S Routine 01/03/2024 6:42 AM CHEMICAL SUPERVISOR NT-PRO B-TYPE NATRIURETIC PEPTIDE (BNP), S Routine 01/03/2024 6:42 AM CHEMICAL SUPERVISOR CALCIUM, IONIZED, S/B Routine 01/03/2024 6:42 AM CHEMICAL SUPERVISOR PH BLOOD GAS Routine 01/03/2024 6:42 AM CHEMICAL SUPERVISOR CBC WITH DIFFERENTIAL, B Routine 01/03/2024 6:42 AM CHEMICAL SUPERVISOR BASIC METABOLIC PANEL, S/P Routine 01/03/2024 6:42 AM CHEMICAL SUPERVISOR QUANTIFERON-TB GOLD PLUS, B Routine 01/03/2024 6:42 AM CHEMICAL SUPERVISOR HBC TOTAL AB, SERUM Routine 01/03/2024 6 :42 AM CHEMICAL SUPERVISOR HBS ANTIBODY, SERUM Routine 01/03/2024 6 :42 AM CHEMICAL SUPERVISOR HEPATITIS B SURFACE ANTIGEN Routine 01/03/2024 6:42 AM CHEMICAL SUPERVISOR LEUKEMIA/LYMPHOMA, PHENOTYPE, V Timed 01/03/2024 6:10 AM CHEMICAL SUPERVISOR CHOLESTEROL, BF Timed 01/03/2024 6:10 AM CHEMICAL SUPERVISOR GLUCOSE, BODY FLUID Timed 01/03/2024 6 :10 AM CHEMICAL SUPERVISOR CELL COUNT AND DIFFERENTIAL, BF Timed 01/03/2024 6:10 AM CHEMICAL SUPERVISOR PROTEIN, TOTAL, BF Timed 01/03/2024 6: 10 AM CHEMICAL SUPERVISOR LACTATE DEHYDROGENASE (LD), BF Timed 01/03/2024 6:10 AM CHEMICAL SUPERVISOR M TUBERCULOSIS COMPLEX PCR, V Timed 01/03/2024 6:10 AM CHEMICAL SUPERVISOR BROAD RANGE BACTERIA PCR AND SEQUENCING Timed 01/03/2024 6:10 AM CHEMICAL SUPERVISOR BACTERIAL CULTURE, ANAEROBIC + SUSC Timed 01/03/2024 6:10 AM CHEMICAL SUPERVISOR BACTERIAL CULTURE, AEROBIC + SUSC Timed 01/03/2024 6:10 AM CHEMICAL SUPERVISOR GRAM STAIN Timed 01/03/2024 6:10 AM CHEMICAL SUPERVISOR DX CHEST PORTABLE 1 VIEW RAD - Semiurgent (Fast; most ED patients; some inpatients) 01/02/2024 3:59 PM CHEMICAL SUPERVISOR MC ANE CENTRAL LINE GENERIC PERFORMABLE Routine 01/02/2024 3:47 PM CHEMICAL SUPERVISOR Failure Renal Acute (Acute Kidney Injury) (HCC) LDA ANE CENTRAL LINE DOUBLE LUMEN ADULT Routine 01/02/2024 3:47 PM CHEMICAL SUPERVISOR Failure Renal Acute (Acute Kidney Injury) (HCC) ND US GUIDE VASC ACCESS Routine 01/02/2024 3:47 PM CHEMICAL SUPERVISOR Failure Renal Acute (Acute Kidney Injury) (HCC) ND INS NON-BLAINE CVC >5YR Routine 01/02/2024 3:47 PM CHEMICAL SUPERVISOR Failure Renal Acute (Acute Kidney Injury) (HCC) GENERAL SURGERY IMAGE EXAM Routine 01/02/2024 3:30 PM CHEMICAL SUPERVISOR HEMODIALYSIS Routine 01/02/2024 2:44 PM CHEMICAL SUPERVISOR MAGNESIUM, S Routine 01/02/2024 11:32 AM CHEMICAL SUPERVISOR BASIC METABOLIC PANEL, S/P Routine 01/02/2024 11:32 AM CHEMICAL SUPERVISOR US KIDNEYS BILATERAL WITH BLADDER RAD - Routine (most inpatients and all outpatients) 01/02/2024 10:15 AM CHEMICAL SUPERVISOR DX CHEST PORTABLE 1 VIEW RAD - Semiurgent (Fast; most ED patients; some inpatients) 01/02/2024 4:24 AM CHEMICAL SUPERVISOR CREATINE KINASE (CK), S Routine 01/02/2024 4:10 AM CHEMICAL SUPERVISOR ALBUMIN, S/P Routine 01/02/2024 4:10 AM CHEMICAL SUPERVISOR CALCIUM, IONIZED, S/B Routine 01/02/2024 4:10 AM CHEMICAL SUPERVISOR PH BLOOD GAS Routine 01/02/2024 4:10 AM CHEMICAL SUPERVISOR PHOSPHORUS (INORGANIC), S Routine 01/02/2024 3:41 AM CHEMICAL SUPERVISOR MAGNESIUM, S Routine 01/02/2024 3:41 AM CHEMICAL SUPERVISOR LACTATE, B STAT 01/02/2024 3:41 AM CHEMICAL SUPERVISOR NT-PRO B-TYPE NATRIURETIC PEPTIDE (BNP), S Routine 01/02/2024 3:41 AM CHEMICAL SUPERVISOR VENOUS BLOOD GAS W/COOX, B Routine 01/02/2024 3:41 AM CHEMICAL SUPERVISOR OSMOLALITY, S Routine 01/02/2024 3:41 AM CHEMICAL SUPERVISOR CBC WITH DIFFERENTIAL, B Routine 01/02/2024 3:41 AM CHEMICAL SUPERVISOR BASIC METABOLIC PANEL, S/P Routine 01/02/2024 3:41 AM CHEMICAL SUPERVISOR ECG Routine 01/02/2024 12:39 AM CHEMICAL SUPERVISOR OUTSIDE CT BODY Routine 01/01/2024 2:25 PM CHEMICAL SUPERVISOR OUTSIDE CT NEURO Routine 01/01/2024 2:20 PM CHEMICAL SUPERVISOR from Last 3 Months Allergies No known [...] Med Name: Prostate Complete Zinc, Selenium, Saw Ullin, Lycopene, Turmeric, Resveratrol, Pomegranate Active gabapentin (Neurontin) [...] mg by mouth daily as needed. 3 11/18/2 024 Discontin ued(Thera py completed ) montelukast [...] Never Tobacco Cessation:Counseling Given: No [facility] Utilities Answer Date Recorded In the past 12 months has e [employer], or water [employer] threatened to shut off services in your [...] your living situation today? I have a [facility] place to live 01/10/2024 Sex and Gender Information Value Date Recorded Sex Assigned at Not on file Legal Sex Male 3:31 PM CHEMICAL SUPERVISOR Gender Identity Not on file Sexual Orientation Not on file Last Filed Vital Signs Vital Sign Reading Time Taken Comments Blood Pressure 111/62 01/11/2024 2:37 PM CHEMICAL SUPERVISOR Pulse 122 01/11/2024 2:37 PM CHEMICAL SUPERVISOR Temperature 36.5 C (97.7 F) 01/11/2024 2:37 PM CHEMICAL SUPERVISOR Respiratory Rate 26 01/11/2024 2:37 PM CHEMICAL SUPERVISOR Oxygen Saturation 97% 01/11/2024 2:37 PM CHEMICAL SUPERVISOR Inhaled Oxygen Concentration - - Weight 39.9 kg (87 lb 15.4 oz) 01/11/2024 2:12 A M CHEMICAL SUPERVISOR Height 170.2 cm (5' 7) 01/01/2024 9:10 PM CHEMICAL SUPERVISOR Body Mass Index 13.78 01/01/2024 9:10 PM CHEMICAL SUPERVISOR Results * CT CHEST W CON-Outside CT Body (01/22/2024 11:00 AM CHEMICAL SUPERVISOR) Only the most recent of2 resultswithin the time period is included. 01/22/2024 10:5 8 AM CHEMICAL SUPERVISOR Narrative IIMS - 01/22/2024 12:17 PM CHEMICAL SUPERVISOR This order has been created and auto-finalized [...] and Speech or OT (01/11/2024 1:48 PM CHEMICAL SUPERVISOR) Anatomical Region Laterality Modality Gastro Intestinal, Abdominal RST LOS, Abdominal ARZ LOS, Abdominal FLA LOS N/A Digital Radiography Impressions 01/11/2024 4:00 PM CHEMICAL SUPERVISOR Normal modified barium swallow study Narrative 01/11/2024 4:00 PM CHEMICAL SUPERVISOR EXAM: FL SWALLOW FUNCTION WITH VIDEO AND [...] Result * Testing Location (01/11/2024 11:51 AM CHEMICAL SUPERVISOR) Testing Location [facility] DEFAULT 01/11/2024 11:57 AM CHEMICAL SUPERVISOR [facility] Blood 01/11/2024 11:5 1 AM CHEMICAL SUPERVISOR 01/11/2024 11:57 AM CHEMICAL SUPERVISOR us Jeremías Fernandez M.D. LAB BLOOD BANK TEST ORDERABL ES Final Result Performing Organization Address City/[facility] Co de Phone Number [facility] [address] [place] [address] * (ABNORMAL) Hemoglobin (01/11/2024 11:51 AM CHEMICAL SUPERVISOR) Only the most recent of2 resultswithin the time period is included. Hemoglobin 8.1(L) 13.2 - 16.6 g/dL 01/11/2024 12:00 PM CHEMICAL SUPERVISOR MKTO Blood (Blood, Venous) 01/11/2024 11:51 AM CHEMICAL SUPERVISOR 01/11/2024 11:57 AM CHEMICAL SUPERVISOR us Jeremías Fernandez M.D. LAB BLOOD ADD-ON Final Resul t Performing Organization Address [facility] Co de Phone Number [facility] [address] [place] [address], [place] [address] * Type and Screen (with Reflex Antibody ID) (01/11/2024 11:51 AM CHEMICAL SUPERVISOR) ABO Group B 01/11/2024 12:58 PM CHEMICAL SUPERVISOR MKTO Rh Type NEG 01/11/2024 12:58 PM CHEMICAL SUPERVISOR [facility]TO Antibody Screen NEG 12:58 PM CHEMICAL SUPERVISOR MKTO Type & Screen Expiration 01/14/2024 23:59 01/11/2024 12:58 PM CHEMICAL SUPERVISOR MKTO ELXM Eligible Y 01/11/2024 12:58 PM CHEMICAL SUPERVISOR MKTO Blood (Blood, Venous) 01/11/2024 11:51 AM CHEMICAL SUPERVISOR 01/11/2024 11:57 AM CHEMICAL SUPERVISOR us Jeremías Fernandez M.D. LAB BLOOD BANK TEST ORDERABL ES Final Result Performing Organization Address City/[facility] Co de Phone Number [facility] [address] [place] [address], [facility] [place] [address] [place] [address] * DX Chest Portable 1 View (01/11/2024 6:54 AM CHEMICAL SUPERVISOR) Only the most recent of5 resultswithin the time period is included. Anatomical Region Laterality Modality Chest, Thoracic RST LOS, Tho racic ARZ LOS, Thoracic FLA LOS N/A Digital Radiography Impressions 01/11/2024 7:51 AM CHEMICAL SUPERVISOR No change since 01/10/2024. Small right pleural effusion with associated atelectasis. The left lung remains clear. No pneumothorax. Normal heart size. Aortic calcifications. Narrative 01/11/2024 7:51 AM CHEMICAL SUPERVISOR EXAM: DX CHEST PORTABLE 1 VIEW Procedure Note Yovany Shrestha M.D. - 01/11/2024 EXAM: DX CHEST PORTABLE 1 VIEW IMPRESSION: No change since 01/10/2024. Small right pleural effusion with associatedatelectasis. The left lung remains clear. No pneumothorax. Normal heartsize. Aortic calcifications. Fidencio Oliva M.D. IMG DIAGNOSTIC IMAGING PROCED URES Final Result * (ABNORMAL) Hepatic Function Panel (01/11/2024 4:48 AM CHEMICAL SUPERVISOR) Only the most recent of5 resultswithin the time period is included. Bilirubin, Total, P 0.2 0.0 - 1.2 mg/dL 01/11/2024 5:37 AM CHEMICAL SUPERVISOR MKTO Bilirubin, Direct, P 0.1 0.0 - 0.3 mg/dL 01/11/2024 5:37 AM CHEMICAL SUPERVISOR MKTO Aspartate Aminotransferase (AST), P 23 8 - 48 U/L 01/11/2024 5:37 AM CHEMICAL SUPERVISOR MKTO Alanine Aminotransferase (ALT), P 11 7 - 55 U/L 01/11/2024 5:37 AM CHEMICAL SUPERVISOR MKTO Alkaline Phosphatase, P 83 40 - 129 U/L 01/11/2024 5:37 AM CHEMICAL SUPERVISOR MKTO Albumin, P 2.4(L) 3.5 - 5.0 g/dL 01/11/2024 5:37 AM CHEMICAL SUPERVISOR MKTO Protein, Total, P 5.2(L) 6.3 - 7.9 g/dL 01/11/2024 5:37 AM CHEMICAL SUPERVISOR MKTO Blood (Blood, Venous) 01/11/2024 4:48 AM CHEMICAL SUPERVISOR 01/11/2024 5:11 AM CHEMICAL SUPERVISOR us Jeremías Fernandez M.D. LAB BLOOD ADD-ON Final Resul t [facility] [address] [place] [address], [facility] [place] [address] * (ABNORMAL) CBC with Differential, Blood (01/11/2024 4:48 AM CHEMICAL SUPERVISOR) Only the most recent of10 resultswithin the time period is included. Hemoglobin 7.5(L) 13.2 - 16.6 g/dL 01/11/2024 5:14 AM CHEMICAL SUPERVISOR MKTO Hematocrit 24.9(L) 38.3 - 48.6 % 01/11/2024 5:14 AM CHEMICAL SUPERVISOR MKTO Erythrocytes 2.52(L) 4.35 - 5.65 x10(12)/L 01/11/2024 5:14 AM CHEMICAL SUPERVISOR MKTO MCV 98.8(H) 78.2 - 97.9 fL 01/11/2024 5:14 AM CHEMICAL SUPERVISOR MKTO RBC Distrib Width 14.5 11.8 - 14.5 % 01/11/2024 5:14 AM CHEMICAL SUPERVISOR MKTO Platelet Count 243 135 - 317 x10(9)/L 01/11/2024 5:14 AM CHEMICAL SUPERVISOR MKTO Leukocytes 8.8 3.4 - 9.6 x10(9)/L 01/11/2024 5:14 AM CHEMICAL SUPERVISOR MKTO Neutrophils 6.61(H) 1.56 - 6.45 x10(9)/L 01/11/2024 5:14 AM CHEMICAL SUPERVISOR MKTO Lymphocytes 0.97 0.95 - 3.07 x10(9)/L 01/11/2024 5:14 AM CHEMICAL SUPERVISOR MKTO Monocytes 0.98(H) 0.26 - 0.81 x10(9)/L 01/11/2024 5:14 AM CHEMICAL SUPERVISOR MKTO Eosinophils 0.15 0.03 - 0.48 x10(9)/L 01/11/2024 5:14 AM CHEMICAL SUPERVISOR MKTO Basophils 0.07 0.01 - 0.08 x10(9)/L 01/11/2024 5:14 AM CHEMICAL SUPERVISOR MKTO Blood (Blood, Venous) 01/11/2024 4:48 AM CHEMICAL SUPERVISOR 01/11/2024 5:11 AM CHEMICAL SUPERVISOR Jeremías Fernandez M.D. LAB BLOOD ADD-ON Final Resul t Performing Organization Address City/[facility] Co de Phone Number [facility] [address] [place] [address], [place] [address] * Phosphorus Inorganic (01/11/2024 4:48 AM CHEMICAL SUPERVISOR) Only the most recent of6 resultswithin the time period is included. Phosphorus (Inorganic), P 3.1 2.5 - 4.5 mg/dL 01/11/2024 5:37 AM CHEMICAL SUPERVISOR MKTO Blood (Blood, Venous) 01/11/2024 4:48 AM CHEMICAL SUPERVISOR 01/11/2024 5:11 AM CHEMICAL SUPERVISOR us Jeremías Fernandez M.D. LAB BLOOD ADD-ON Final Resul t Performing Organization Address City/[facility]/ZIP Co de Phone Number [facility] [address] [place] [address], [place] [address] * Magnesium (01/11/2024 4:48 AM CHEMICAL SUPERVISOR) Only the most recent of8 resultswithin the time period is included. Magnesium, P 1.7 1.7 - 2.3 mg/dL 01/11/2024 5:37 AM CHEMICAL SUPERVISOR MKTO Blood (Blood, Venous) 01/11/2024 4:48 AM CHEMICAL SUPERVISOR 01/11/2024 5:11 AM CHEMICAL SUPERVISOR us Jeremías Fernandez M.D. LAB BLOOD ADD-ON Final Resul t [facility] [address] [place] [address], [facility] [place] [address] [place] [address] * (ABNORMAL) Basic Metabolic Panel (01/11/2024 4:48 AM CHEMICAL SUPERVISOR) Only the most recent of11 resultswithin the time period is included. Potassium, P 4.3 3.6 - 5.2 mmol/L 01/11/2024 5:37 AM CHEMICAL SUPERVISOR MKTO Sodium, P 143 135 - 145 mmol/L 01/11/2024 5:37 AM CHEMICAL SUPERVISOR MKTO Chloride, P 110(H) 98 - 107 mmol/L 01/11/2024 5:37 AM CHEMICAL SUPERVISOR MKTO Bicarbonate, P 24 22 - 29 mmol/L 01/11/2024 5:37 AM CHEMICAL SUPERVISOR MKTO Anion Gap, P 9 7 - 15 01/11/2024 5:37 AM CHEMICAL SUPERVISOR MKTO BUN (Blood Urea Nitrogen), P 33(H) 8 - 24 mg/dL 01/11/2024 5:37 AM CHEMICAL SUPERVISOR MKTO Creatinine 1.74(H) 0.74 - 1.35 mg/dL 01/11/2024 5:37 AM CHEMICAL SUPERVISOR MKTO Estimated GFR (eGFR) 38(L) >=60 mL/min/BSA 01/11/2024 5:37 AM CHEMICAL SUPERVISOR MKTO Comment: Estimated GFR calculated using the 2020 CKD_EPI creatinine equation. Calcium, Total, P 7.8(L) 8.8 - 10.2 mg/dL 01/11/2024 5:37 AM CHEMICAL SUPERVISOR MKTO Glucose, P 92 70 - 140 mg/dL 01/11/2024 5:37 AM CHEMICAL SUPERVISOR MKTO Blood (Blood, Venous) 01/11/2024 4:48 AM CHEMICAL SUPERVISOR 01/11/2024 5:11 AM CHEMICAL SUPERVISOR us Jeremías Fernandez M.D. LAB BLOOD ADD-ON Final Resul t Performing Organization Address City/[facility] Co de Phone Number [facility] [address] [place] [address], [facility] [address] [place] [id number] * (ABNORMAL) Morphology Evaluation (01/09/2024 6:42 AM CHEMICAL SUPERVISOR) Only the most recent of5 resultswithin the time period is included. RBC Morphology See Specific Findings 01/09/2024 8:09 AM CHEMICAL SUPERVISOR MKTO PLT Morphology Normal 01/09/2024 8:09 AM CHEMICAL SUPERVISOR MKTO PLT Estimate Adequate Adequate 01/09/2024 8:09 AM CHEMICAL SUPERVISOR MKTO Anisocytosis Slight(A) 01/09/2024 8:09 AM CHEMICAL SUPERVISOR MKTO Basophilic Stippling Slight(A) 01/09/2024 8:09 AM CHEMICAL SUPERVISOR MKTO Elliptocytes Slight(A) Not Seen 01/09/2024 8:09 AM CHEMICAL SUPERVISOR MKTO Poikilocytosis Slight(A) Not Seen 01/09/2024 8:09 AM CHEMICAL SUPERVISOR MKTO Blood 01/09/2024 6:42 AM CHEMICAL SUPERVISOR 01/09/2024 7:05 AM CHEMICAL SUPERVISOR us Jeremías Fernandez M.D. LAB BLOOD ADD-ON Final Resul t Performing Organization Address City/[facility] Co de Phone Number [facility] [address] [place] [address], [facility] [address] [place] [id number] * (ABNORMAL) Manual Differential, Blood (01/09/2024 6:42 AM CHEMICAL SUPERVISOR) Only the most recent of4 resultswithin the time period is included. Segmented Neutrophils 87(H) 50 - 75 % 01/09/2024 8:09 AM CHEMICAL SUPERVISOR MKTO Lymphocytes % 8(L) 18 - 42 % 01/09/2024 8:09 AM CHEMICAL SUPERVISOR MKTO Monocytes 1(L) 2 - 11 % 01/09/2024 8:09 AM CHEMICAL SUPERVISOR MKTO Eosinophils 1 1 - 3 % 01/09/2024 8:09 AM CHEMICAL SUPERVISOR MKTO Metamyelocytes 1(H) <1 % 01/09/2024 8:09 AM CHEMICAL SUPERVISOR MKTO Myelocytes 2(H) <0.5 % 01/09/2024 8:09 AM CHEMICAL SUPERVISOR MKTO Manual Absolute Neutrophil Count 10.27(H) 1.56 - 6.45 x10(9)/L 01/09/2024 8:09 AM CHEMICAL SUPERVISOR MKTO Comment: ----ADDITIONAL INFORMATION---- The manual absolute neutrophil count is derived from a manual differential count and therefore is not exactly comparable to the automated absolute neutrophil count. Blood 01/09/2024 6:42 AM CHEMICAL SUPERVISOR 01/09/2024 7:05 AM CHEMICAL SUPERVISOR us Jeremías Fernandez M.D. LAB BLOOD ADD-ON Final Resul t [facility] [address] [place] [address], [facility]TO [facility] [place] [address] * CT Chest without IV Contrast (01/08/2024 1:11 PM CHEMICAL SUPERVISOR) Anatomical Region Laterality Modality Chest, Thoracic RST LOS, Tho racic ARZ LOS, Thoracic FLA LOS N/A Computed Tomography Impressions 01/08/2024 2:48 PM CHEMICAL SUPERVISOR 1. Loculated right pleural collection with adjacent consolidation or atelectasis in the right lower lobe. 2. Right chest tube pigtail is positioned at the interface of the pleural space with the adjacent chest wall. Correlation with chest tube function recommended. 3. No fluid collection within the chest wall. Small right chest wall emphysema. Narrative 01/08/2024 2:48 PM CHEMICAL SUPERVISOR EXAM: CT CHEST WITHOUT IV CONTRAST COMPARISON: [...] DX Chest 1 View (01/08/2024 7:16 AM CHEMICAL SUPERVISOR) Only the most recent of3 resultswithin the time period is included. Anatomical Region Laterality Modality Chest, Thoracic RST LOS, Tho racic ARZ LOS, Thoracic FLA LOS N/A Digital Radiography Impressions 01/08/2024 7:44 AM CHEMICAL SUPERVISOR Interval retraction of the right pleural catheter. The pigtail projects over the lateral chest wall soft tissues and requires correlation with positioning and catheter output. Persisting right pleural effusion/pleural thickening and right basilar airspace opacity. Narrative 01/08/2024 7:44 AM CHEMICAL SUPERVISOR EXAM: DX CHEST 1 VIEW COMPARISON: January [...] Tropheryma whipplei PCR, Blood (01/06/2024 11:36 AM CHEMICAL SUPERVISOR) Specimen Source BLOOD 12:26 PM CHEMICAL SUPERVISOR DTL Tropheryma whipplei PCR, B, Result Negative Not Applicable 01/08/2024 12:26 PM CHEMICAL SUPERVISOR DTL Comment: ----ADDITIONAL INFORMATION---- This test was developed and its performance characteristics determined by [facility] in a manner consistent with CLIA requirements. This test has not been cleared or approved by the U.S. Food and Drug Administration. Blood (Blood, Venous) 01/06/2024 11:36 AM CHEMICAL SUPERVISOR 01/07/2024 8:06 AM CHEMICAL SUPERVISOR Sarah Rose M.D. LAB MICROBIOLOG Y - BLOOD ORDERABLES Final Result [facility] [address] [place] [address], [facility] DT [address] [place] [address] * [id number] [facility] Test for Pathogen Detection - Miscellaneous Test (01/06/2024 11:36 AM CHEMICAL SUPERVISOR) Test Name [facility] Test for Pathogen Detection 01/06/2024 11:49 AM CHEMICAL SUPERVISOR MKTO Result Specimen sent out; results to follow DEFAULT 01/06/2024 11:49 AM CHEMICAL SUPERVISOR MKTO Blood (Blood, Venous) 01/06/2024 11:36 AM CHEMICAL SUPERVISOR 01/06/2024 11:49 AM CHEMICAL SUPERVISOR us Sarah Rose M.D. LAB [facility] ORDERA BLES Final Result Performing Organization Address City/[facility]/ZIP Co de Phone Number [facility] [address] [place] [address], [place] [facility] [place] [address] [place] [address] * [facility] - Sent Out Lab (01/06/2024 10:59 AM CHEMICAL SUPERVISOR) Test Name [facility] Test for Pathogen Detection 01/06/2024 11:49 AM CHEMICAL SUPERVISOR CYDNEY Result SEE COMMENT 01/11/2024 9:44 AM CHEMICAL SUPERVISOR CYDNEY Comment: For final report, select Lab-Send Out Lab Results hyperlink below. 01/06/2024 10:5 9 AM CHEMICAL SUPERVISOR 01/07/2024 8:53 AM CHEMICAL SUPERVISOR us Sarah Rose M.D. LAB [facility] ORDERA BLES Final Result Performing Organization Address City/[facility]/ZIP Co de Phone Number [facility] [address] [place] [phone], [facility] CYDNEY [facility] [address] [place] [phone] * (ABNORMAL) Renal Function Panel (01/06/2024 5:37 AM CHEMICAL SUPERVISOR) Potassium, P 3.3(L) 3.6 - 5.2 mmol/L 01/06/2024 6:11 AM CHEMICAL SUPERVISOR MKTO Sodium, P 142 135 - 145 mmol/L 01/06/2024 6:11 AM CHEMICAL SUPERVISOR MKTO Chloride, P 104 98 - 107 mmol/L 01/06/2024 6:11 AM CHEMICAL SUPERVISOR MKTO Bicarbonate, P 25 22 - 29 mmol/L 01/06/2024 6:11 AM CHEMICAL SUPERVISOR MKTO Anion Gap, P 13 7 - 15 01/06/2024 6:11 AM CHEMICAL SUPERVISOR MKTO BUN (Blood Urea Nitrogen), P 37(H) 8 - 24 mg/dL 01/06/2024 6:11 AM CHEMICAL SUPERVISOR MKTO Creatinine 1.91(H) 0.74 - 1.35 mg/dL 01/06/2024 6:11 AM CHEMICAL SUPERVISOR MKTO Estimated GFR (eGFR) 34(L) >=60 mL/min/BSA 01/06/2024 6:11 AM CHEMICAL SUPERVISOR MKTO Comment: Estimated GFR calculated using the 2020 CKD_EPI creatinine equation. Calcium, Total, P 8.4(L) 8.8 - 10.2 mg/dL 01/06/2024 6:11 AM CHEMICAL SUPERVISOR MKTO Glucose, P 92 70 - 140 mg/dL 01/06/2024 6:11 AM CHEMICAL SUPERVISOR MKTO Albumin, P 2.7(L) 3.5 - 5.0 g/dL 01/06/2024 6:11 AM CHEMICAL SUPERVISOR MKTO Phosphorus (Inorganic), P 2.7 2.5 - 4.5 mg/dL 01/06/2024 6:11 AM CHEMICAL SUPERVISOR MKTO Blood (Blood, Venous) 01/06/2024 5:37 AM CHEMICAL SUPERVISOR 01/06/2024 5:47 AM CHEMICAL SUPERVISOR us Vidhya Toavr P.A.-C. LAB BLOOD ADD-ON Final Resu lt [facility] [address] [place] [address], [facility] MKTO [place] [address] * ECG 12 Lead (01/06/2024 5:32 AM CHEMICAL SUPERVISOR) Only the most recent of2 resultswithin the time period is included. Ventricular Rate ECG/Min 98 BPM MUSE ND Interval 164 ms MUSE QRSD Interval 128 ms MUSE QT Interval 398 ms MUSE QTC Interval 508 ms MUSE P [place] 52 degrees MUSE R [place] -72 degrees MUSE T Wave [place] 53 degrees MUSE 01/06/2024 5:32 AM CHEMICAL SUPERVISOR 01/06/2024 5:40 AM CHEMICAL SUPERVISOR Impressions MUSE - 01/06/2024 5:40 AM CHEMICAL SUPERVISOR Normal sinus rhythm Right bundle branch block [...] IR Chest Tube Placement (01/05/2024 1:42 PM CHEMICAL SUPERVISOR) Anatomical Region Laterality Modality Chest, Vascular Intervention al RST LOS, Vascular Interventional ARZ LOS, Vascular Interventional FLA LOS N/A X-Ray Angiography Impressions 01/05/2024 2:17 PM CHEMICAL SUPERVISOR 1. Right chest tube placement. Narrative 01/05/2024 2:17 PM CHEMICAL SUPERVISOR EXAM: IR CHEST TUBE PLACEMENT HISTORY: R [...] medications. Patient education provided by a care marine steamfitter. Patient was ready to learn with no apparent learning barriers were identified. Post-procedure care explained; patient expressed understanding of the content. PROCEDURE DETAILS: Sedation: None. Local anesthesia was achieved with lidocaine. Sedation time: None Estimated Blood Loss: Less than 10 mL. TECHNIQUE: Imaging guidance for drain insertion: Ultrasound and fluoroscopy with permanent image storage Access side: Right Catheter: 12 Kyrgyz multipurpose pigtail drain Technique: Image guidance was used to localize the collection. A 5 Kyrgyz Yueh needle catheter was used to access the collection under real time image guidance, and images were saved to PACS. Aspiration yielded purulent fluid. A guidewire was inserted, and the tract was dilated to accommodate a 12 Kyrgyz pigtail drain. The catheter was secured with [...] medications. Patient education provided by a care marine steamfitter. Patient was ready to learn withno apparent learning barriers were identified. Post-procedure careexplained; patient expressed understanding of the content. PROCEDURE DETAILS: Sedation: None. Local anesthesia was achieved with lidocaine. Sedation time: None Estimated Blood Loss: Less than 10 mL. TECHNIQUE: Imaging guidance for drain insertion: Ultrasound and fluoroscopy withpermanent image storage Access side: Right Catheter: 12 Kyrgyz multipurpose pigtail drain Technique: Image guidance was used to localize the collection. A 5 FrenchYueh needle catheter was used to access the collection under real timeimage guidance, and images were saved to PACS. Aspiration yielded purulentfluid. A guidewire was inserted, and the tract was dilated to accommodate a 12 Kyrgyz pigtail drain. Thecatheter was secured with 2-0 Ethilon suture. The catheter was connectedto Pleur-evac Intraprocedural or immediate post-procedural complications: None FINDINGS: Catheter tip location: Final image was demonstrates the catheter tip to belocated in the right pleural space Additional observations: N/A PLAN: Follow-up with pulmonology. IMPRESSION: 1. Right chest tube placement. us Fidencio TORRES IR PROCEDURES Final Resul t * Cytology Non-CANE WEIGHER HELPER (01/05/2024 12:50 PM CHEMICAL SUPERVISOR) Only the most recent of2 resultswithin the time period is included. 01/07/2024 3:19 PM CHEMICAL SUPERVISOR HKCY Disclaimer This test has been modified from the positive printer operator's instructions. Its performance characteristics were determined by [facility] in a manner consistent with CLIA requirements. This test has not been cleared or approved by the U.S. Food and Drug Administration. 01/07/2024 3:19 PM CHEMICAL SUPERVISOR HKCY Report electronically signed by LOLY Schwartz. Ch.B. I verify that I have examined all relevant slides/materials for the specimen(s) and rendered or confirmed the diagnosis. 01/07/2024 3:19 PM CHEMICAL SUPERVISOR HKCY Gross Description 50 ml of cloudy hubbard fluid received. Specimen fixed at 2:20 pm on 01-05-2024. 2 slides and cell block prepared. 01/07/2024 3:19 PM CHEMICAL SUPERVISOR HKCY Source A. Pleural, fluid 024 3:19 PM CHEMICAL SUPERVISOR HKCY Interpretation A. Pleural, fluid (smears/cell block): Negative for malignancy. Acute inflammation. COMMENT Immunohistochemica l stains with appropriate reactive controls was performed on separate slides on cell block. CK7, WT1, calretinin, TTF1, Napsin A, p40, CK20, NKX3.1 and CDX2: Negative Controls reviewed, results acceptable. 01/07/2024 3:19 PM CHEMICAL SUPERVISOR HKCY Fluid 01/05/2024 12:5 0 PM CHEMICAL SUPERVISOR 01/06/2024 7:16 AM CHEMICAL SUPERVISOR Fidencio Oliva M.D. LAB SURG PATH ORDERABLES Sury l Result [facility] CYTOLOGY [address] [place] [address], [place] HKCY [address] [facility] [address] [place] [address] * Protein, Total, Body Fluid (01/05/2024 12:50 PM CHEMICAL SUPERVISOR) Only the most recent of2 resultswithin the time period is included. Protein, Total, BF 2.6 See Comment g/dL 01/06/2024 11:13 AM CHEMICAL SUPERVISOR DTL Comment: ----ADDITIONAL INFORMATION---- A pleural fluid [...] clinical findings. All other fluids refer to www.[employer].com for further interpretive information. This test has been modified from the positive printer operator's instructions. Its performance characteristics were determined by [facility] in a manner consistent with CLIA requirements. This test has not been cleared or approved by the U.S. Food and Drug Administration. Fluid Type, Protein, Total PLEURAL 01/06/2024 10:14 AM CHEMICAL SUPERVISOR DTL Fluid (Pleural Fluid) 01/05/2024 12:50 PM CHEMICAL SUPERVISOR 01/06/2024 10:01 AM CHEMICAL SUPERVISOR Fidencio Oliva M.D. LAB BODY FLUIDS AND STOOLS OR DERABLES Final Result [facility] [address] [place] [address], [facility] [place] [address] [place] [address] * (ABNORMAL) Bacterial Culture, Aerobic + Susceptibility (01/05/2024 12:50 PM CHEMICAL SUPERVISOR) Only the most recent of2 resultswithin the time period is included. Bacterial Culture, Aerobic + Susc STREPTOCOCCUS ANGINOSUS GROUP [place] (A) 01/09/2024 7:56 AM CHEMICAL SUPERVISOR MKTO Fluid (Pleural Fluid) 01/05/2024 12:50 PM CHEMICAL SUPERVISOR 01/05/2024 1:47 PM CHEMICAL SUPERVISOR Comment:Specimen Source Site : Fluid Narrative Organism [...] MICROBIOLOGY - GENERAL OR DERABLES Final Result [facility] [address] [place] [address], [facility] [place] [address] [place] [address] * Cell Count and Differential, Body Fluid (01/05/2024 12:50 PM CHEMICAL SUPERVISOR) Only the most recent of2 resultswithin the time period is included. Fluid Type Pleural/Thor acentesis 01/05/2024 2:19 PM CHEMICAL SUPERVISOR MKTO Gross Appearance Purulent 01/05/20 24 2:40 PM CHEMICAL SUPERVISOR MKTO Total Nucleated Cells [id number] /[id number] 01/05/2024 2:40 PM CHEMICAL SUPERVISOR MKTO Comment: ----REFERENCE VALUE---- Synovial: <150 Peritoneal: <500 Pleural: <500 Pericardial: <500 ----ADDITIONAL INFORMATION---- This test has been modified from the positive printer operator's instructions. Its performance characteristics were determined by [facility] in a manner consistent with CLIA requirements. This test has not been cleared or approved by the U.S. Food and Drug Administration. Neutrophils 100 % 01/05/2024 3:04 PM CHEMICAL SUPERVISOR MKTO Comment: ----REFERENCE VALUE---- Synovial: <25% Peritoneal: <25% Pleural: <25% Pericardial: <25% Reviewed by: Dr. Morton 01/05/2024 3:05 PM CHEMICAL SUPERVISOR MKTO Fluid (Pleural Fluid) 01/05/2024 12:50 PM CHEMICAL SUPERVISOR 01/05/2024 1:47 PM CHEMICAL SUPERVISOR Fidencio Oliva M.D. LAB BODY FLUIDS AND STOOLS OR DERABLES Final Result [facility] [address] [place] [address], [facility] MKTO [place] [address] * Triglycerides, Body Fluid (01/05/2024 12:50 PM CHEMICAL SUPERVISOR) Triglycerides, BF 31 See Comment mg/dL 01/06/2024 11:13 AM CHEMICAL SUPERVISOR DTL Comment: ----ADDITIONAL INFORMATION---- Pleural fluid triglyceride concentrations > 110 mg/dL are consistent with chylous effusions. Triglyceride concentrations <50 mg/dL are usually not due to chylous effusions. Peritoneal fluid triglyceride concentrations > 187 mg/dL are most consistent with chylous effusion. All other fluids refer to http://www.[email or web address] erEPV SOLARs.com for further interpretive information. This test has been modified from the positive printer operator's instructions. Its performance characteristics were determined by [facility] in a manner consistent with CLIA requirements. This test has not been cleared or approved by the U.S. Food and Drug Administration. Fluid Type Pleural 01/06/2024 10:14 AM CHEMICAL SUPERVISOR DTL Fluid (Pleural Fluid) 01/05/2024 12:50 PM CHEMICAL SUPERVISOR 01/06/2024 10:01 AM CHEMICAL SUPERVISOR Fidencio Oliva M.D. LAB BODY FLUIDS AND STOOLS OR DERABLES Final Result Performing Organization Address [facility] Co de Phone Number [facility] [address] [place] [address], [facility] [address] [place] [address] * pH, Pleural Fluid (01/05/2024 12:50 PM CHEMICAL SUPERVISOR) pH, Pleural Fluid <6.80 Not Applicable pH 01/05/2024 1:59 PM CHEMICAL SUPERVISOR MKTO Comment: Clinical guidelines suggest that in parapneumonic pleural effusions, a pH <7.2 indicate the need for tube drainage. Fluid (Pleural Fluid) 01/05/2024 12:50 PM CHEMICAL SUPERVISOR 01/05/2024 1:47 PM CHEMICAL SUPERVISOR Fidencio Oliva M.D. LAB BODY FLUIDS AND STOOLS OR DERABLES Final Result Performing Organization Address City/[facility]/ZIP Co de Phone Number [facility] [address] [place] [address], [facility] MKTO [facility] [place] [address] [place] [address] * (ABNORMAL) Gram Stain (01/05/2024 12:50 PM CHEMICAL SUPERVISOR) Only the most recent of3 resultswithin the time period is included. Gram Stain White blood cells, Many.(A) 01/05/2024 2:46 PM CHEMICAL SUPERVISOR MKTO Gram Stain GRAM POSITIVE COCCI Many. (A) 01/05/2024 2:46 PM CHEMICAL SUPERVISOR MKTO Fluid (Pleural Fluid) 01/05/2024 12:50 PM CHEMICAL SUPERVISOR 01/05/2024 1:47 PM CHEMICAL SUPERVISOR Comment:Specimen Source Site : Fluid Fidencio Oliva M.D. LAB MICROBIOLOGY - GENERAL OR DERABLES Final Result Performing Organization Address City/[facility] Co de Phone Number [facility] [address] [place] [address], [place] [address] * Bacterial Culture, Anaerobic + Susceptibility (01/05/2024 12:50 PM CHEMICAL SUPERVISOR) Only the most recent of2 resultswithin the time period is included. Bacterial Culture, Anaerobic No growth after 7 days of incubation. 01/12/2024 7:59 AM CHEMICAL SUPERVISOR [facility] Fluid (Pleural Fluid) 01/05/2024 12:50 PM CHEMICAL SUPERVISOR 01/05/2024 1:47 PM CHEMICAL SUPERVISOR Comment:Specimen Source Site : Fluid Fidencio Oliva M.D. LAB MICROBIOLOGY - GENERAL OR DERABLES Final Result Performing Organization Address [facility] Co de Phone Number [facility] [address] [place] [address], [address] [address] * Lactate Dehydrogenase (LD), Body Fluid (01/05/2024 12:50 PM CHEMICAL SUPERVISOR) Only the most recent of2 resultswithin the time period is included. Lactate Dehydrogenase (LD), BF >9000 See Comment U/L 01/06/2024 12:17 PM CHEMICAL SUPERVISOR DTL Comment: ----ADDITIONAL INFORMATION---- Pleural fluid lactate [...] clinical findings. All other fluids refer to [email or web address] for further interpretive information. This test has been modified from the positive printer operator's instructions. Its performance characteristics were determined by [facility] in a manner consistent with CLIA requirements. This test has not been cleared or approved by the U.S. Food and Drug Administration. Fluid Type, Lactate Dehydrogenase PLEURAL 01/06/2024 10:14 AM CHEMICAL SUPERVISOR DTL Fluid (Pleural Fluid) 01/05/2024 12:50 PM CHEMICAL SUPERVISOR 01/06/2024 8:29 AM CHEMICAL SUPERVISOR us Fidencio Oliva M.D. LAB BODY FLUIDS AND STOOLS OR DERABLES Final Result [facility] [address] [place] [address], [place] [facility] [address] [place] [address] * Glucose, Body Fluid (01/05/2024 12:50 PM CHEMICAL SUPERVISOR) Only the most recent of2 resultswithin the time period is included. Glucose, BF 49 See Comment mg/dL 01/06/2024 11:13 AM CHEMICAL SUPERVISOR DTL Comment: ----ADDITIONAL INFORMATION---- Body fluid glucose [...] cystic lesions. All other fluids refer to www.[email or web address] for further interpretive information. This test has been modified from the positive printer operator's instructions. Its performance characteristics were determined by [facility] in a manner consistent with CLIA requirements. This test has not been cleared or approved by the U.S. Food and Drug Administration. Fluid Type, Glucose PLEURAL 01/05 10:14 AM CHEMICAL SUPERVISOR DTL Fluid (Pleural Fluid) 01/05/2024 12:50 PM CHEMICAL SUPERVISOR 01/06/2024 10:01 AM CHEMICAL SUPERVISOR Fidencio Oliva M.D. LAB BODY FLUIDS AND STOOLS OR DERABLES Final Result [facility] [address] [place] [address], [facility] [address] [place] [address] * Pneumonia Panel, PCR (01/04/2024 7:45 PM CHEMICAL SUPERVISOR) Specimen Source SPUTUM 10:43 PM CHEMICAL SUPERVISOR MKTO Acinetobacter calcoaceticus-balbir annii complex Undetected Undetected copies/mL 01/04/2024 10:43 PM CHEMICAL SUPERVISOR MKTO Enterobacter cloacae complex Undetected Undetected copies/mL 01/04/2024 10:43 PM CHEMICAL SUPERVISOR MKTO Escherichia coli Undetected Undetected copies/mL 01/04/2024 10:43 PM CHEMICAL SUPERVISOR MKTO Haemophilus influenzae Undetected Undetected copies/mL 01/04/2024 10:43 PM CHEMICAL SUPERVISOR MKTO Klebsiella aerogenes Undetected Undetected copies/mL 01/04/2024 10:43 PM CHEMICAL SUPERVISOR MKTO Klebsiella oxytoca Undetected Undetected copies/mL 01/04/2024 10:43 PM CHEMICAL SUPERVISOR MKTO Klebsiella pneumoniae complex Undetected Undetected copies/mL 01/04/2024 10:43 PM CHEMICAL SUPERVISOR MKTO Moraxella catarrhalis Undetected Undetected copies/mL 01/04/2024 10:43 PM CHEMICAL SUPERVISOR MKTO Proteus species Undetected Undetected copies/mL 01/04/2024 10:43 PM CHEMICAL SUPERVISOR MKTO Pseudomonas aeruginosa Undetected Undetected copies/mL 01/04/2024 10:43 PM CHEMICAL SUPERVISOR MKTO Serratia marcescens Undetected Undetected copies/mL 01/04/2024 10:43 PM CHEMICAL SUPERVISOR MKTO Staphylococcus aureus complex Undetected Undetected copies/mL 01/04/2024 10:43 PM CHEMICAL SUPERVISOR MKTO Streptococcus agalactiae Undetected Undetected copies/mL 01/04/2024 10:43 PM CHEMICAL SUPERVISOR MKTO Streptococcus pneumoniae Undetected Undetected copies/mL 01/04/2024 10:43 PM CHEMICAL SUPERVISOR MKTO Streptococcus pyogenes Undetected Undetected copies/mL 01/04/2024 10:43 PM CHEMICAL SUPERVISOR MKTO Chlamydia pneumoniae Undetected Undetected 01/04/2024 10:43 PM CHEMICAL SUPERVISOR MKTO Legionella pneumophila Undetected Undetected 01/04/2024 10:43 PM CHEMICAL SUPERVISOR MKTO Mycoplasma pneumoniae Undetected Undetected 01/04/2024 10:43 PM CHEMICAL SUPERVISOR MKTO Adenovirus Undetected Undetected 01/04/2024 10:43 PM CHEMICAL SUPERVISOR MKTO Coronavirus Undetected Undetected 01/04/2024 10:43 PM CHEMICAL SUPERVISOR MKTO Human Metapneumovirus Undetected Undetected 01/04/2024 10:43 PM CHEMICAL SUPERVISOR MKTO Human Rhinovirus/Enterov irus Undetected Undetected 01/04/2024 10:43 PM CHEMICAL SUPERVISOR MKTO Influenza A Undetected Undetected 01/04/2024 10:43 PM CHEMICAL SUPERVISOR MKTO Influenza B Undetected Undetected 01/04/2024 10:43 PM CHEMICAL SUPERVISOR MKTO Parainfluenza Undetected Undetected 01/04/2024 10:43 PM CHEMICAL SUPERVISOR MKTO Respiratory Syncytial Virus Undetected Undetected 01/04/2024 10:43 PM CHEMICAL SUPERVISOR MKTO Comment: ----ADDITIONAL INFORMATION---- This assay is performed using the FDA-cleared FilmArray Pneumonia Panel (PN) (CorrectNet.). Any initial empiric treatment guidance provided in [...] SARS-CoV-2. Sputum (Sputum) 01/04/2024 7 :45 PM CHEMICAL SUPERVISOR 01/04/2024 7:55 PM CHEMICAL SUPERVISOR us Octavio Cavazos, Ch.B. LAB MICROBIOLOGY - GENERAL ORDERABLES Final Result [facility] [place] [address], [facility] MKTO [facility] [address] [address] * Bacterial Culture, Aerobic + Susceptibility, Respiratory (01/04/2024 7:45 PM CHEMICAL SUPERVISOR) Pathologist [facility] Bacterial Culture, Aerobic, Resp No growth after 2 days of incubation. 01/06/2024 8:19 AM CHEMICAL SUPERVISOR MKTO Sputum (Sputum) 01/04/2024 7 :45 PM CHEMICAL SUPERVISOR 01/04/2024 7:55 PM CHEMICAL SUPERVISOR Comment:Specimen Source Site : Sputum us Octavio Cavazos, B. LAB MICROBIOLOGY - GENERAL ORDERABLES Final Result Performing Organization Address City/[facility] Co de Phone Number [facility] [address] [place] [address] * MRSA PCR, Nasal (01/04/2024 7:45 PM CHEMICAL SUPERVISOR) Pathologist [facility] MRSA Screen, Nasal by PCR Negative Negative 01/04/2024 9:24 PM CHEMICAL SUPERVISOR [facility] Swab (Nares) 01/04/2024 7:45 PM CHEMICAL SUPERVISOR 01/04/2024 7:53 PM CHEMICAL SUPERVISOR us Frank Mccall M.D. LAB MICROBIOLOGY - GENERAL ORDERABLES Final Result Performing Organization Address [facility] de Phone Number [facility] [address] [place] [address], [place] [address] * Ankle, Right-Nursing Image Exam (01/04/2024 7:40 PM CHEMICAL SUPERVISOR) 01/04/2024 7:39 PM CHEMICAL SUPERVISOR Narrative IIMS - 01/04/2024 7:42 PM CHEMICAL SUPERVISOR This order has been created and auto-finalized to support the import of images acquired without order. The clinical documentation to support these images can be found on the encounter that produced images. us Provider Not In System IMG NON RAD IMAGING PROCE DURES Final Result Performing Organization Address [facility] Co de Phone Number IIMS NA * (TTE) 2D ECHO DOPPLER COLOR AND CONTRAST (01/04/2024 10:38 AM CHEMICAL SUPERVISOR) [facility] Ejection Fraction 59 MC CV EIMS Sinus [...] Region Laterality Modality Echocardiography 01/04/2024 9:49 AM CHEMICAL SUPERVISOR Impressions 01/04/2024 11:49 AM CHEMICAL SUPERVISOR Echo performed at the patient's bedside. LEFT [...] per Echocardiography Contrast Administration Protocol Reference Document [id number] Rev 05/30/2021. Patient met an inclusion criterion and did not have contraindications in screening sections. For the complete report, see the Order-Level Documents. Narrative 01/04/2024 11:49 AM CHEMICAL SUPERVISOR For the complete report, see the Order-Level [...] administered per EchocardiographyContrast Administration Protocol Reference Document [id number] Rev05/30/2021. Patient met an inclusion criterion and did not havecontraindications in screening sections. For the complete report, see the Order-Level Documents. Jet Palomares M.D. CV ECHO PROCEDURES Sury l Result * (ABNORMAL) Urinalysis with Microscopic if Indicated (01/04/2024 5:56 AM CHEMICAL SUPERVISOR) Source Urine, Urine, Midstream 01/04/2024 6:03 AM CHEMICAL SUPERVISOR [facility] Clarity Cloudy(A) Clear 01/04/2024 6:37 AM CHEMICAL SUPERVISOR [facility] Color Yellow 01/04/2024 6:37 AM CHEMICAL SUPERVISOR [facility] Comment: ----REFERENCE VALUE---- Colorless Yellow Veronica Blood Negative Negative 01/04/2024 6:37 AM CHEMICAL SUPERVISOR [facility] Nitrite Negative Negative 01/04/2024 6:37 AM CHEMICAL SUPERVISOR [facility] Leukocyte Esterase Negative Negative 01/04/2024 6:37 AM CHEMICAL SUPERVISOR [facility] Protein 30(A) mg/dL 01/04/2024 6:37 AM CHEMICAL SUPERVISOR [facility] Comment: ----REFERENCE VALUE---- Negative Trace Glucose Negative Negative mg/dL 01/04/2024 6:37 AM CHEMICAL SUPERVISOR MK[facility] Ketone Trace(A) Negative mg/dL 01/04/2024 6:37 AM CHEMICAL SUPERVISOR MK[facility] Bilirubin Negative Negative 01/04/2024 6:37 AM CHEMICAL SUPERVISOR MK[facility] pH 5.0 5.0 - 8.0 01/04/2024 6:37 AM CHEMICAL SUPERVISOR [facility] Specific [place] 1.014 1.001 - 1.035 01/04/2024 6:37 AM CHEMICAL SUPERVISOR MK[facility] Urobilinogen 0.2 0.2 - 1.0 mg/dL 01/04/2024 6:37 AM CHEMICAL SUPERVISOR MK[facility] Urine (Urine, Midstream) 01/04/2024 5:56 AM CHEMICAL SUPERVISOR 01/04/2024 6:02 AM CHEMICAL SUPERVISOR Jet Palomares M.D. LAB URINE ORDERABLES Fi nal Result [facility] [address] [place] [address], [facility] [place] [address] * Sodium, Random, Urine (01/04/2024 5:56 AM CHEMICAL SUPERVISOR) Sodium, Random, U 28 mmol/L 01/04/2024 6:54 AM CHEMICAL SUPERVISOR MK[facility] Comment: ----REFERENCE VALUE---- Random urine sodium may be interpreted in conjunction with serum sodium, using both values to calculate fractional excretion of sodium. Urine (Urine, Midstream) 01/04/2024 5:56 AM CHEMICAL SUPERVISOR 01/04/2024 6:01 AM CHEMICAL SUPERVISOR Fausto Bey M.D. LAB URINE ORDERABLES Final Resu lt Performing Organization Address City/[facility]/ZIP Co de Phone Number [facility] [address] [place] [address] * (ABNORMAL) Microscopic Automated (01/04/2024 5:56 AM CHEMICAL SUPERVISOR) White Blood Cells 4-10(A) /hpf 01/04/2024 6:58 AM CHEMICAL SUPERVISOR MK[facility] Comment: ----REFERENCE VALUE---- Males: 0-3 Females: 0-10 Unknown: 0-10 Red Blood Cells None Seen 0 - 2 /hpf 01/04/2024 6:58 AM CHEMICAL SUPERVISOR MK[facility] Hyaline Casts 4-10 /lpf 01/04/2024 6:58 AM CHEMICAL SUPERVISOR MK[facility] Squamous Cells Occ-3 /hpf 01/04/2024 6:58 AM CHEMICAL SUPERVISOR MKTO Urine 01/04/2024 5:56 AM CHEMICAL SUPERVISOR 01/04/2024 6:02 AM CHEMICAL SUPERVISOR Jet Palomares M.D. LAB URINE ORDERABLES Fi nal Result Performing Organization Address [facility] Co de Phone Number [facility] [address] [place] [address], [place] [address] * (ABNORMAL) Protein/Creatinine Ratio, Random, Urine (01/04/2024 5:56 AM CHEMICAL SUPERVISOR) Protein, Total, Random, U 33 mg/dL 01/04/2024 6:54 AM CHEMICAL SUPERVISOR MKTO Creatinine, Random, U 94 16 - 326 mg/dL 01/04/2024 6:54 AM CHEMICAL SUPERVISOR MKTO Protein/Creati nine Ratio 0.35(H) <0.18 mg/mg 01/04/2024 6:54 AM CHEMICAL SUPERVISOR MKTO Urine (Urine, Midstream) 01/04/2024 5:56 AM CHEMICAL SUPERVISOR 01/04/2024 6:02 AM CHEMICAL SUPERVISOR us Jet Palomares M.D. LAB URINE ORDERABLES Fi nal Result Performing Organization Address City/[facility]/ZIP Co de Phone Number [facility] [address] [place] [address], [place] [address] * (ABNORMAL) NT-Pro B-Type Natriuretic Peptide (BNP) (01/04/2024 4:56 AM CHEMICAL SUPERVISOR) Only the most recent of3 resultswithin the time period is included. NT-Pro BNP 5163(H) <=540 pg/mL 01/04/2024 8:20 AM CHEMICAL SUPERVISOR [facility] Comment: NT-proBNP values less than 300 [...] failure. Blood (Blood, Venous) 01/04/2024 4:56 AM CHEMICAL SUPERVISOR 01/04/2024 8:01 AM CHEMICAL SUPERVISOR us Portia Ramos M.D., Ph.D. LAB BLOOD ADD-ON Final Res ult Performing Organization Address City/[facility]/ZIP Co de Phone Number [facility] [address] [place] [address], [place] [address] * (ABNORMAL) Iron and Total Iron-Binding Capacity (01/04/2024 4:56 AM CHEMICAL SUPERVISOR) Iron 38(L) 50 - 150 mcg/dL 01/04/2024 8:32 AM CHEMICAL SUPERVISOR MKTO Total Iron Binding Capacity 79(L) 250 - 400 mcg/dL 01/04/2024 8:32 AM CHEMICAL SUPERVISOR MKTO Percent Saturation 48 14 - 50 % 01/04/2024 8:32 AM CHEMICAL SUPERVISOR MKTO Blood (Blood, Venous) 01/04/2024 4:56 AM CHEMICAL SUPERVISOR 01/04/2024 8:02 AM CHEMICAL SUPERVISOR Portia Ramos M.D., Ph.D. LAB BLOOD ADD-ON Final Res ult Performing Organization Address [facility] Co de Phone Number [facility] [address] [place] [address], [place] [address] * Parathyroid Hormone (PTH) (01/04/2024 4:56 AM CHEMICAL SUPERVISOR) Parathyroid Hormone (PTH), S 43 15 - 65 pg/mL 01/04/2024 8:32 AM CHEMICAL SUPERVISOR [facility] Comment: Biotin has been identified by the positive printer operator as a potential interfering substance. Higher concentrations of biotin may be found in multivitamins, hair/nail supplements, and workout supplements. If the result does not match clinical observations, repeat testing after patient refrains from the use of supplements for at least 12 hours. Blood (Blood, Venous) 01/04/2024 4:56 AM CHEMICAL SUPERVISOR 01/04/2024 8:02 AM CHEMICAL SUPERVISOR Portia Ramos M.D., Ph.D. LAB BLOOD ADD-ON Final Res ult Performing Organization Address [facility] Co de Phone Number [facility] [address] [place] [address], [place] [address] * (ABNORMAL) Ferritin (01/04/2024 4:56 AM CHEMICAL SUPERVISOR) Ferritin, S 1703(H) 31 - 409 mcg/L 01/04/2024 8:32 AM CHEMICAL SUPERVISOR MKTO Comment: Biotin has been identified by the positive printer operator as a potential interfering substance. Higher concentrations of biotin may be found in multivitamins, hair/nail supplements, and workout supplements. If the result does not match clinical observations, repeat testing after patient refrains from the use of supplements for at least 12 hours. Blood (Blood, Venous) 01/04/2024 4:56 AM CHEMICAL SUPERVISOR 01/04/2024 8:02 AM CHEMICAL SUPERVISOR us Portia Ramos M.D., Ph.D. LAB BLOOD ADD-ON Final Res ult [facility] [address] [place] [address], [place] [facility] [place] [address] [place] [address] * US Thoracentesis Right with Imaging Guidance (01/03/2024 5:04 PM CHEMICAL SUPERVISOR) Anatomical Region Laterality Modality Chest, Ultrasound RST LOS, U ltrasound ARZ LOS, Procedure FLA LOS, Abdominal FLA LOS, Procedural, Procedural NWWI LOS Right Ultrasound Impressions 01/04/2024 8:03 AM CHEMICAL SUPERVISOR Successful ultrasound guided diagnostic and therapeutic right thoracentesis. Narrative 01/04/2024 8:03 AM CHEMICAL SUPERVISOR EXAM: US THORACENTESIS RIGHT WITH IMAGING GUIDANCE PROCEDURE: Sterile; 1% lidocaine for local anesthesia. Location: Right pleural space Needle size: 5 Fr [facility] Fluid Amount/Color: 150 mL of white/hubbard [...] medications. Patient education provided by the care marine steamfitter. Ready to learn, no apparent learning barriers were identified. Post-procedure care explained; patient expressed understanding of the content. Procedure Note Charbel Capone M.D. - 01/04/2024 EXAM: US THORACENTESIS RIGHT WITH IMAGING GUIDANCE PROCEDURE: Sterile; 1% lidocaine for local anesthesia. Location: Right pleural space Needle size: 5 Fr [facility] Fluid Amount/Color: 150 mL of white/hubbard opaque [...] medications. Patient education provided by the care marine steamfitter. Ready to learn, no apparent learningbarriers were identified. Post-procedure care explained; patient expressedunderstanding of the content. IMPRESSION: Successful ultrasound guided diagnostic and therapeutic rightthoracentesis. Octavio Cavazos, Ch.B. IMG US PROCEDURES Final Result * Bacteria / Alix Culture, Blood #1 (01/03/2024 10:53 AM CHEMICAL SUPERVISOR) Only the most recent of2 resultswithin the time period is included. Pathologist [facility] Bacteria/Nereida da Culture, Blood No growth after 5 day/s of incubation. 01/08/2024 11:05 AM CHEMICAL SUPERVISOR [facility] Blood (Blood, Peripheral Draw) 01/03/2024 10:53 AM CHEMICAL SUPERVISOR 01/03/2024 10:58 AM CHEMICAL SUPERVISOR Comment:Specimen Source Site : Blood Octavio Cavazos, Ch.B. LAB MICROBIOLOGY - GENERAL ORDERABLES Final Result [facility] [address] [place] [address], [facility] [place] [address] * Lactate for Sepsis with Reflex (01/03/2024 10:52 AM CHEMICAL SUPERVISOR) Pathologist [facility] Lactate, B 1.1 0.5 - 2.2 mmol/L 01/03/2024 11:01 AM CHEMICAL SUPERVISOR [facility] Blood (Blood, Venous) 01/03/2024 10:52 AM CHEMICAL SUPERVISOR 01/03/2024 10:58 AM CHEMICAL SUPERVISOR us Octavio Cavazos, ChElielB. LAB BLOOD NON ADD- ON Final Result Performing Organization Address City/[facility]/ZIP Co de Phone Number [facility] [address] [place] [address], [place] [address] * (ABNORMAL) Albumin (01/03/2024 10:51 AM CHEMICAL SUPERVISOR) Only the most recent of2 resultswithin the time period is included. Albumin, P 3.0(L) 3.5 - 5.0 g/dL 01/03/2024 1:15 PM CHEMICAL SUPERVISOR MK[facility] Blood (Blood, Venous) 01/03/2024 10:51 AM CHEMICAL SUPERVISOR 01/03/2024 1:02 PM CHEMICAL SUPERVISOR us Jet Palomares M.D. LAB BLOOD ADD-ON Final Result Performing Organization Address City/[facility] Co de Phone Number [facility] [address] [place] [address], [place] [address] * pH (01/03/2024 6:42 AM CHEMICAL SUPERVISOR) Only the most recent of2 resultswithin the time period is included. pH 7.43 7.35 - 7.45 pH 01/03/2024 7:00 AM CHEMICAL SUPERVISOR MKTO Blood 01/03/2024 6:42 AM CHEMICAL SUPERVISOR 01/03/2024 6:55 AM CHEMICAL SUPERVISOR us Deanna Lewis APRN, C.N.P., D.N.P., M.S.N. LAB H ISTORICAL ORDERS Final Result [facility] [address] [place] [address], [facility] MKTO [facility] [place] [address] [place] [address] * (ABNORMAL) QuantiFERON-Tb Gold Plus, Blood (01/03/2024 6:42 AM CHEMICAL SUPERVISOR) [facility] QuantiFERON-TB Gold Plus Result Indetermi parviz(A) Negative 01/07/2024 2:48 PM CHEMICAL SUPERVISOR [facility] Comment: Indeterminate due to a low interferon-gamma level in the mitogen (positive control) tube. This may occur due to a low lymphocyte count, reduced lymphocyte activity or inability of the patient's lymphocytes to generate interferon-gamma. The reference range for the 'Mitogen minus Nil Result' is >=0.5 IU/mL. TB1 Ag minus Nil Result 0.00 IU/mL 01/07/2024 2:48 PM CHEMICAL SUPERVISOR [facility] TB2 Ag minus Nil Result 0.00 IU/mL 01/07/2024 2:48 PM CHEMICAL SUPERVISOR [facility] Mitogen minus Nil Result 0.01 IU/mL 01/07/2024 2:48 PM CHEMICAL SUPERVISOR [facility] Nil Result 0.04 IU/mL 01/07/2024 2:48 PM CHEMICAL SUPERVISOR [facility] Blood (Blood, Venous) 01/03/2024 6:42 AM CHEMICAL SUPERVISOR 01/04/2024 10:57 AM CHEMICAL SUPERVISOR Narrative [facility] - 01/07/2024 2:48 PM CHEMICAL SUPERVISOR Specimen Information: Specimen ID: [id number] Specimen Type: Blood Specimen Collection Start Date: 01/03/2024 6:42 AM Specimen Received Date: 01/04/2024 10:57 AM Specimen ID: [id number] Specimen Type: Blood Specimen Collection Start Date: 01/03/2024 6:42 AM Specimen Received Date: 01/04/2024 10:57 AM Specimen ID: [id number] Specimen Type: Blood Specimen Collection Start Date: 01/03/2024 6:42 AM Specimen Received Date: 01/04/2024 10:57 AM Specimen ID: [id number] Specimen Type: Blood Specimen Collection Start Date: 01/03/2024 6:42 AM Specimen Received Date: 01/04/2024 10:57 AM us Jet Palomares M.D. LAB MICROBIOLOGY - BLOO D ORDERABLES Final Result Performing Organization Address City/[facility]/ZIP Co de Phone Number [facility] [address] [place] [address], [facility] [place] [address] [place] [address] * Vitamin D, Immunoassay, Total, Serum (01/03/2024 6:42 AM CHEMICAL SUPERVISOR) Pathologist [facility] Vitamin D, Immunoassay, Total, S 23 20 - 80 ng/mL 01/04/2024 8:37 AM CHEMICAL SUPERVISOR [facility] Comment: Optimum levels within the healthy population are 20-50, patients with bone disease may benefit from high levels within this range Blood (Blood, Venous) 01/03/2024 6:42 AM CHEMICAL SUPERVISOR 01/04/2024 8:02 AM CHEMICAL SUPERVISOR Portia Ramos M.D., Ph.D. LAB BLOOD ADD-ON Final Res ult Performing Organization Address [facility] Co de Phone Number [facility] [address] [place] [address], [facility] in [place] [address] [place] [address] * HBc Total Ab, Serum (01/03/2024 6:42 AM CHEMICAL SUPERVISOR) Pathologist [facility] HBc Total Ab, S Negative Negative 01/04/2024 11:52 AM CHEMICAL SUPERVISOR [facility] Blood (Blood, Peripheral Draw) 01/03/2024 6:42 AM CHEMICAL SUPERVISOR 01/04/2024 7:28 AM CHEMICAL SUPERVISOR us Jet Palomares M.D. LAB MICROBIOLOGY - BLOO D ORDERABLES Final Result Performing Organization Address City/[facility]/ZIP Co de Phone Number [facility] [address] [place] [address] [facility] [address] [place] [address] * HBs Antibody, Serum (01/03/2024 6:42 AM CHEMICAL SUPERVISOR) HBs Antibody, S Negative 7:57 AM CHEMICAL SUPERVISOR [facility] Comment: Patient is presumed NOT to be immune to infection with HBV. Consumption of high-dose biotin supplement within 12 hours of blood collection for this test can cause false-negative results. ----REFERENCE VALUE---- Unvaccinated: Negative Vaccinated: Positive HBs Antibody, Quantitative, S <3.50 mIU/mL 01/03/2024 7:57 AM CHEMICAL SUPERVISOR MKTO Comment: ----REFERENCE VALUE---- <8.50: Negative 8.50-11.49: Indeterminate >=11.50: Positive Blood (Blood, Peripheral Draw) 01/03/2024 6:42 AM CHEMICAL SUPERVISOR 01/03/2024 6:55 AM CHEMICAL SUPERVISOR us Jet Palomares M.D. LAB MICROBIOLOGY - BLOO D ORDERABLES Final Result [facility] [address] [place] [address] * Hepatitis B Surface Antigen (01/03/2024 6:42 AM CHEMICAL SUPERVISOR) HBs Antigen, S Nonreactive Nonreactive 01/03/2024 8:07 AM CHEMICAL SUPERVISOR MKTO Blood (Blood, Peripheral Draw) 01/03/2024 6:42 AM CHEMICAL SUPERVISOR 01/03/2024 6:55 AM CHEMICAL SUPERVISOR us Jet Palomares M.D. LAB MICROBIOLOGY - BLOO D ORDERABLES Final Result [facility] [address] [place] [address], [place] [address] * (ABNORMAL) Calcium, Ionized (01/03/2024 6:42 AM CHEMICAL SUPERVISOR) Only the most recent of2 resultswithin the time period is included. Calcium, Ionized, B 4.31(L) 4.65 - 5.30 mg/dL 01/03/2024 7:00 AM CHEMICAL SUPERVISOR [facility] Blood 01/03/2024 6:42 AM CHEMICAL SUPERVISOR 01/03/2024 6:55 AM CHEMICAL SUPERVISOR us Deanna Lewis APRN, C.N.P., D.N.P., M.S.N. LAB B LOOD NON ADD-ON Final Result Performing Organization Address City/[facility]/ZIP Co de Phone Number [facility] [address] [place] [address], [facility] [place] [address] [place] [address] * (ABNORMAL) Broad Range Bacteria PCR + Sequencing (01/03/2024 6:10 AM CHEMICAL SUPERVISOR) Pathologist [facility] Broad Range Bacteria PCR+Sequenci ng This test was developed and its performance characteristics determined by [facility] in a manner consistent with CLIA requirements. This test has not been cleared or approved by the U.S. Food and Drug Administration. (A) 01/12/2024 9:31 AM CHEMICAL SUPERVISOR DTL Broad Range Bacteria PCR+Sequenci ng STREPTOCOCCUS INTERMEDIUS DNA detected (A) 01/12/2024 9:31 AM CHEMICAL SUPERVISOR DTL Comment:Semi-Urgent Result. Semi-Urgent This is a semi-urgent result(AU[place]USTE) [facility] Fluid (Pleural Fluid, Right) 01/03/2024 6:10 AM CHEMICAL SUPERVISOR 01/04/2024 10:00 AM CHEMICAL SUPERVISOR Comment:Specimen Source Site : Fluid Octavio Cavazos, Ch.B. LAB MICROBIOLOGY - GENERAL ORDERABLES Final Result Performing Organization Address City/[facility]/ZIP Co de Phone Number [facility] [address] [place] [address], [facility] DTL [facility] [address] [place] [address] * Leukemia/Lymphoma Immunophenotyping by Flow Cytometry (01/03/2024 6:10 AM CHEMICAL SUPERVISOR) Pathologist [facility] LCMS Result Performed 01/05/2024 1:37 PM CHEMICAL SUPERVISOR DTL Final Diagnosis: Pleural fluid, flow cytometric immunophenotyp ing: No monotypic B-cell population or increase in blasts identified. Reviewed by: Blank Crisostomo M.D. 01/05/2024 1:37 PM CHEMICAL SUPERVISOR DTL Special Studies: Results: Blasts: Not increased by CD45/side scatter and CD34. B-cells: Absence of BO14-glhgbkco B cells. B-cell markers tested: CD19, CD10 and kappa and lambda surface light chains. T-cells/NK-joelle ls: No aberrant phenotype by CD3 and CD16. Quality assessment: Specimen received within validated guidelines. 01/05/2024 1:37 PM CHEMICAL SUPERVISOR DTL Microscopic Description A Hu-Giemsa- stained slide prepared from the flow cytometry specimen is examined. Morphology is suboptimal. 01/05/2024 1:37 PM CHEMICAL SUPERVISOR DTL Comment: ----ADDITIONAL INFORMATION---- This test was developed using an analyte specific reagent. Its performance characteristics were determined by [facility] in a manner consistent with CLIA requirements. This test has not been cleared or approved by the U.S. Food and Drug Administration. Fluid (Pleural Fluid, Right) 01/03/2024 6:10 AM CHEMICAL SUPERVISOR 01/04/2024 8:57 AM CHEMICAL SUPERVISOR us Octavio Cavazos, Ch.B. LAB GENETIC TESTIN G Final Result [facility] [address] [place] [address], [place] DTL [address] [facility] [address] [place] [address] * M tuberculosis Complex PCR (01/03/2024 6:10 AM CHEMICAL SUPERVISOR) [facility] MTB Complex PCR, Specimen Source Fluid, Pleural Fluid, Right 01/06/2024 7:45 PM CHEMICAL SUPERVISOR DTL MTB Complex PCR, Result Negative Not Applicable 01/06/2024 7:45 PM CHEMICAL SUPERVISOR DTL Comment: A mycobacterial culture must always [...] and its performance characteristics determined by [facility] in a manner consistent with CLIA requirements. This test has not been cleared or approved by the U.S. Food and Drug Administration. Fluid (Pleural Fluid, Right) 01/03/2024 6:10 AM CHEMICAL SUPERVISOR 01/04/2024 10:24 AM CHEMICAL SUPERVISOR Octavio Cavazos, Ch.B. LAB MICROBIOLOGY - GENERAL ORDERABLES Final Result [facility] [address] [place] [address], [facility] DT [address] [facility] [address] [place] [address] * Cholesterol, Body Fluid (01/03/2024 6:10 AM CHEMICAL SUPERVISOR) Cholesterol, BF 34 See Comment mg/dL 01/05/2024 8:47 AM CHEMICAL SUPERVISOR DTL Comment: ----ADDITIONAL INFORMATION---- Pleural fluid cholesterol concentrations > 45 to 65 mg/dL are consistent with exudative effusions. Cholesterol concentrations > 200 mg/dL suggest pseudochylous effusions. Peritoneal fluid cholesterol concentrations > 32 to 70 mg/dL suggest a malignant cause of ascites. All other fluids refer to http://www.[employer]Bal[employer].com for further interpretive information. This test has been modified from the positive printer operator's instructions. Its performance characteristics were determined by [facility] in a manner consistent with CLIA requirements. This test has not been cleared or approved by the U.S. Food and Drug Administration. Fluid Type Pleural 01/05/2024 8:14 AM CHEMICAL SUPERVISOR DTL Fluid (Pleural Fluid, Right) 01/03/2024 6:10 AM CHEMICAL SUPERVISOR 01/05/2024 7:49 AM CHEMICAL SUPERVISOR us Octavio Cavazos, ChElielBEliel LAB BODY FLUIDS AN D STOOLS ORDERABLES Final Result [facility] [address] [place] [address], [place] D[place] [facility] [address] [place] [address] * ND INS NON-BLAINE CVC >5YR, ND US GUIDE VASC ACCESS, LDA ANE CENTRAL LINE DOUBLE LUMEN ADULT, MC ANE CENTRAL LINE GENERIC PERFORMABLE (01/02/2024 3:47 PM CHEMICAL SUPERVISOR) Narrative Nikki Salinas M.D. - 01/02/2024 3:47 PM CHEMICAL SUPERVISOR Nikki Salinas M.D. 01/02/2024 3:50 PM Invasive [...] Image-General Surgery Image Exam (01/02/2024 3:30 PM CHEMICAL SUPERVISOR) Narrative [facility] - 01/06/2024 8:53 PM CHEMICAL SUPERVISOR This order has been created and auto-finalized to support the import of images acquired without order. The clinical documentation to support these images can be found on the encounter that produced images. us Provider Not In System IMG NON RAD IMAGING PROCE DURES Final Result II[facility] NA * US Kidneys Bilateral with Bladder (01/02/2024 10:15 AM CHEMICAL SUPERVISOR) Anatomical Region Laterality Modality Abdomen, Renal, Ultrasound R ST LOS, Ultrasound ARZ LOS, Ultrasound FLA LOS Bilateral Ultrasound Impressions 01/02/2024 10:57 AM CHEMICAL SUPERVISOR 1. No hydronephrosis. 2. Bilateral simple appearing renal cysts. Narrative 01/02/2024 10:57 AM CHEMICAL SUPERVISOR EXAM: US KIDNEYS BILATERAL WITH BLADDER COMPARISON: [...] * CK (Creatine Kinase) (01/02/2024 4:10 AM CHEMICAL SUPERVISOR) Creatine Kinase, P 78 39 - 308 U/L 01/02/2024 9:49 AM CHEMICAL SUPERVISOR [facility] Blood (Blood, Venous) 01/02/2024 4:10 AM CHEMICAL SUPERVISOR 01/02/2024 9:30 AM CHEMICAL SUPERVISOR us Jet Palomares M.D. LAB BLOOD ADD-ON Final Result [facility] [address] [place] [address], [facility] in [address] [address] * Lactate, B (01/02/2024 3:41 AM CHEMICAL SUPERVISOR) Lactate, B 0.8 0.5 - 2.2 mmol/L 01/02/2024 4:47 AM CHEMICAL SUPERVISOR MK[facility] Blood (Blood, Venous) 01/02/2024 3:41 AM CHEMICAL SUPERVISOR 01/02/2024 4:45 AM CHEMICAL SUPERVISOR us Deanna Lewis APRN, C.N.P., D.N.P., M.S.N. LAB B LOOD NON ADD-ON Final Result Performing Organization Address [facility]/ZIP Co de Phone Number [facility] [address] [place] [address], [address] [address] * (ABNORMAL) Osmolality (01/02/2024 3:41 AM CHEMICAL SUPERVISOR) Pathologist [facility] Osmolality, S 338(H) 276 - 306 mOsm/kg 01/02/2024 5:40 AM CHEMICAL SUPERVISOR [facility] Blood (Blood, Venous) 01/02/2024 3:41 AM CHEMICAL SUPERVISOR 01/02/2024 4:05 AM CHEMICAL SUPERVISOR us Fausto Bey M.D. LAB BLOOD ADD-ON Final Result Performing Organization Address [facility] Co de Phone Number [facility] [address] [place] [address], [address] [address] * (ABNORMAL) Blood Gas with Coox, Venous (01/02/2024 3:41 AM CHEMICAL SUPERVISOR) pO2, Venous 49 Not applicable mm Hg 01/02/2024 4:14 AM CHEMICAL SUPERVISOR MK[facility] pCO2, Venous 29(L) 41 - 51 mm Hg 4:14 AM CHEMICAL SUPERVISOR MKTO pH, Venous 7.29(L) 7.32 - 7.43 pH 01/02/2024 4:14 AM CHEMICAL SUPERVISOR MKTO Base Excess, Venous -12 Not applicable mmol/L 01/02/2024 4:14 AM CHEMICAL SUPERVISOR MKTO HCO3, Venous 13 Not applicable mmol/L 01/02/2024 4:14 AM CHEMICAL SUPERVISOR MKTO Hemoglobin, Venous 9.6(L) 13.2 - 16.6 g/dL 01/02/2024 4:14 AM CHEMICAL SUPERVISOR MKTO O2Hb, Venous 79.4 Not applicable % 01/02/2024 4:14 AM CHEMICAL SUPERVISOR MKTO COHb, Venous 0.2 <3.0 % 01/02/2024 4:14 AM CHEMICAL SUPERVISOR MKTO MetHb, Venous 1.2 <1.5 % 01/02/2024 4:14 AM CHEMICAL SUPERVISOR MKTO CtO2, Venous 10.8 Not Applicable vol % 01/02/2024 4:14 AM CHEMICAL SUPERVISOR MKTO Blood (Blood, Venous) 01/02/2024 3:41 AM CHEMICAL SUPERVISOR 01/02/2024 4:05 AM CHEMICAL SUPERVISOR us Fausto Bey M.D. LAB BLOOD NON ADD-ON Final Resu lt Performing Organization Address City/[facility]/ZIP Co de Phone Number [facility] [address] [place] [address], [facility] [address]TO [place] [address] * CT HEAD/BRAIN WO CON-Outside CT Neuro (01/01/2024 2:20 PM CHEMICAL SUPERVISOR) 01/01/2024 2:17 PM CHEMICAL SUPERVISOR Narrative [facility] - 01/01/2024 3:56 PM CHEMICAL SUPERVISOR This order has been created and auto-finalized [...]
--- OUTSIDE RECORDS SUMMARY | 2024-01-26 10:54 | XMS_ITS | Encounter Summary ---
Author Organization [facility] Address [address] [place] [address] Care Team Providers Care Pole Peeling Machine Operator Helper Name Role Phone Elsewhere, Pcp Primary Care Provider Unavailabl e Encounter Details Date Type Department Care Team (Late st Contact Info) Description 01/13/2024 Clinical Communication Department of Infectious Diseases in [place], [place] [address] [place] [address] Sarah Perry M.D. [address] [place] [address] Social History Tobacco Use Types Packs/Day Years Used Date Smoking Tobacco: Never Passive Smoke Exposure: Never Smokeless Tobacco: Never [facility] Utilities Answer Date Recorded In the past 12 months has [facility] [employer], gas, oil, or water company threatened to [...] your living situation today? I have a [facility] place to live 01/10/2024 Sex and Gender Information Value Date Recorded Sex Assigned at Not on file Legal Sex Male 3:31 PM ACADEMIC SPECIALIST Gender Identity Not on file Sexual Orientation Not on file documented as of this encounter Miscellaneous Notes * Telephone Encounter - Stacy Esposito R.N. - 01/13/2024 1:[address] order was faxed to [facility] as requested (fax [phone]). Spouse, Viviana, was updated. She will let us know as soon as this is scheduled so that we can watch for results. Spouse aware CT must be completed prior to ID clinic f/u on 01/25/2024. EMIC SPECIALIST documented in this encounter Plan of Treatment Not on file documented as of this encounter Visit Diagnoses Not on filedocumented in this encounter Care Teams Pole Peeling Machine Operator Helper Relationship Specialty Start Date End Date Elsewhere, Pcp PCP - General Internal Medicine 01/04/24 documented as of this encounter
--- OUTSIDE RECORDS SUMMARY | 2024-01-26 10:54 | XMS_ITS | Encounter Summary ---
Author Organization [facility] Address [address] [place] [address] Care Team Providers Care Wallpaper Inspector Name Role Phone Elsewhere, Pcp Primary Care Provider Unavailabl e Reason for Visit * Reason Onset Date Comments Continuing Care Plan 01/22/2024 CT of chest with contrast Encounter Details Date Type Department Care Team (Late st Contact Info) Description 01/22/2024 Clinical Communication Department of Infectious Diseases in [place], [place] [address] [place] [phone] Letty Sneed RElielNEliel [address] [place] [phone] Continuing Care Plan (CT of chest with contrast) Social History Tobacco Use Types Packs/Day Years Used Date Smoking Tobacco: Never Passive Smoke Exposure: Never Smokeless Tobacco: Never [facility] Utilities Answer Date Recorded In the past 12 months has [facility] [employer], gas, oil, or water [employer] threatened to shut off services in your [...] your living situation today? 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 - 01/22/2024 11:27 AM MULTI SLIDE MACHINE TENDER RN received call from [facility] radiology cotton program technician. Patient is currently on CT table prepped for repeat CT of chest with contrast. Patient requested that tech call [facility] to confirm that IV contrast for CT scan is needed. Patient stated that he does not want contrast if it is not needed/recommended and is worried about his kidney function. Reviewed request and most recent creatinine on 01/11/24 1.74 with Clara Jones PA-C. Clara Jones PA-C recommends that patient have CT of chest with contrast for better images to determine statusof empyema after antibiotic therapy. Informed cotton program technician to educate patient that initial CT on 01/08/24 was completed without contrast due to recent FRANCISCO and creatinine has now improved. Contrast will produce better images and will give theprovider better information to determine if antibiotic therapy can be completed or needs to be extended. Patient should be encouraged to push fluids after exam. Patient is scheduled to follow up in clinic on 01/25/24 with Clara Jones PA-C I SLIDE MACHINE TENDER documented in this encounter Plan of Treatment Not on file documented as of this encounter Visit Diagnoses Not on filedocumented in this encounter Care Teams Wallpaper Inspector Relationship Specialty Start Date End Date Elsewhere, Pcp PCP - General Internal Medicine 01/04/24 documented as of this encounter
--- OUTSIDE RECORDS SUMMARY | 2024-01-26 10:54 | XMS_ITS | Encounter Summary ---
Author Organization [facility] Address [address] [place] [address] Care Team Providers Care Dock Associate Name Role Phone Elsewhere, Pcp Primary Care Provider Unavailabl e Reason for Visit * Reason Onset Date Comments Appointment 01/15/2024 Lab visit Encounter Details Date Type Department Care Team (Latest Contact Info) Description 01/15/2024 Clinical Communication Department of Infectious Diseases in [place], [place] [address] [place] [phone] Ceci Cates RElielNEliel [address] [place] [address] Appointment (Lab visit) Social History Tobacco Use Types Packs/Day Years Used Date Smoking Tobacco: Never Passive Smoke Exposure: Never Smokeless Tobacco: Never [facility] Utilities Answer Date Recorded In the past 12 months has [facility] [place], gas, oil, or water [employer] threatened to shut off services in your [...] your living situation today? 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 ING MACHINE OPERATOR * Telephone Encounter - Ceci Cates R.N. - 01/15/2024 11:35 AM CST RN received phone call from patients , Viviana today updating nursing patient is scheduled for CTchest at [facility] on 01/22/2024 at 1045 a.m. She noted patient is scheduled forCHEQROOM work on 01/25/2024 at [facility] on 01/25/2024 at 1:30 p.m. She is wondering if lab orders can be faxed to [facility] and patient can have them drawn on 01/22/2024, same day as CT chest. also inquired how come craft superintendent and infectious diseases provider could not call with results versus a face to face visit. RN explained follow up visit needs to be face to face so providers can listen to her spouse lungs, assess nail beds, look for jugular vein distention, etc. stated she had not thought of that and will bring in [facility] as scheduled on 01/25/2024. RN will route lab orders to [facility] and ask for them to be drawn on 01/22/2024. will be updated on what time she should arrive for lab visit. ING MACHINE OPERATOR documented in this encounter Plan of Treatment Not on file documented as of this encounter Visit Diagnoses Not on filedocumented in this encounter Care Teams Dock Associate Relationship Specialty Start Date End Date Elsewhere, Pcp PCP - General Internal Medicine 01/04/24 documented as of this encounter
--- OUTSIDE RECORDS SUMMARY | 2024-01-26 10:55 | XMS_ITS | Encounter Summary ---
Author Organization [facility] Address [address] [place] [address] Care Team Providers Care Air Hoist Operator Name Role Phone Elsewhere, Pcp Primary Care Provider Unavailabl e Reason for Referral * Outpatient (Routine) - Authorized Specialty Diagnoses / Procedures Referred By Contac t Referred To Contact Diagnoses Empyema Pleural (HCC) Jeremías Fernandez M.D. [address] [place] [phone] Phone: tel: fax: Tate Bear M.D., D.O. [address] [place] [address] Phone: tel: fax: Referral ID Status Reason Start Date Expiration Date Visits Requested Visits Authorized [id number] Authorized Continuity of Care 01/11/2024 07/12/2025 1 1 T MANAGER * Outpatient (Routine) - Authorized Specialty Diagnoses / Procedures Referred By Contac t Referred To Contact Pulmonary Medicine Diagnoses Pneumonia Empyema Pleural (HCC) Fidencio Oliva M.D. [address] [place] [phone] Phone: tel: fax: [facility] Referral ID Status Reason Start Date Expiration Date V isits Requested Visits Authorized [id number] Authorized 01/11/2024 07/12/2025 1 1 Scheduling Instructions Schedule along side ID consult on 01/24, may need to add-on to Asael ARITA round time, contact Asael RN T MANAGER Reason for Visit * Auth/Cert (Routine) Specialty Diagnoses / Procedures Referred By Contac t Referred To Contact Diagnoses Failure Renal Acute (Acute Kidney Injury) (HCC) ACUTE ON CHRONIC RENAL FAILURE Procedures INPT Referral ID Status Reason Start Date Expiration Date Visits Re quested Visits Authorized [id number] 1 1 Encounter Details Date Type Department Care Team (Latest Contact Info) Description 01/01/2024 8:59 PM FLEET MANAGER - 01/11/2024 4:43 PM FLEET MANAGER Hospital Encounter [facility], Fourth Floor [address] [place] [phone] Frank Mccall M.D. [address] [place] [address] Octavio Morton M.B., Ch.B. [address] [place] [phone] Jeremías Fernandez M.D. [address] [place] [phone] Chapito Velazquez D.O. [address] [place] [phone] Fausto Bey M.D. [address] [place] [address] Empyema Pleural (HCC) (Primary Dx); Failure Renal Acute (Acute Kidney Injury) (HCC); Pneumonia Discharge Disposition: Home or Self Care Social History Tobacco Use Types Packs/Day Years Used Date Smoking Tobacco: Never Passive Smoke Exposure: Never Smokeless Tobacco: Never Tobacco Cessation:Counseling Given: No [facility] Utilities Answer Date Recorded In the [...] your living situation today? [facility] 01/10/2024 Sex and Gender Information Value Date Recorded Sex Assigned at Not on file Legal Sex Male 3:31 PM FLEET MANAGER Gender Identity Not on file Sexual Orientation Not on file documented as of this encounter Last Filed Vital Signs Vital Sign Reading Time Taken Comments Blood Pressure 111/62 01/11/2024 2:37 PM FLEET MANAGER Pulse 122 01/11/2024 2:37 PM FLEET MANAGER Temperature 36.5 C (97.7 F) 01/11/2024 2:37 PM FLEET MANAGER Respiratory Rate 26 01/11/2024 2:37 PM FLEET MANAGER Oxygen Saturation 97% 01/11/2024 2:37 PM FLEET MANAGER Inhaled Oxygen Concentration - - Weight 39.9 kg (87 lb 15.4 oz) 01/11/2024 2:12 A M FLEET MANAGER Height 170.2 cm (5' 7) 01/01/2024 9:10 PM FLEET MANAGER Body Mass Index 13.78 01/01/2024 9:10 PM FLEET MANAGER documented in this encounter Discharge Summaries * Jeremías Fernandez M.D. - 01/11/2024 3:07 PM CST DISCHARGE SUMMARY BRIEF OVERVIEW Discharge Hospital: Hospital: [facility] [place] Discharge Provider: Jeremías Fernandez M.D. Discharge Provider Team: [facility] Internal Medicine ([facility]) [place] [facility] Primary Care Providers: Tate Bear DO (2022June 2022 - Present) [address] [place], [place] [id number] [place] [address] Admission Date: 01/01/2024 Discharge Date: 01/11/24 PRINCIPAL [...] 01 Radiology 01/25/2024 1:30 PM LAB 01 [facility] Laboratory Medicine 01/25/2024 2:30 PM Clara Jones [...] with weakness. He has previously seen in [facility] ED with failure to thrive, chronic cough and poor appetite. He is now so weak he can not get out of bed. Workup done at outside hospital WBC 22, hemoglobin 8.9, potassium 1.9, sodium 124 creatinine 6.3. Patientwas started on cefepime/vancomycin/azithromycin. The outside hospital did not have Nephrology. No room in [facility] so patient was accepted at [facility]. For the renal failure, Nephrology was consulted. [...] on 01/03/2024 and pleural fluid is showing [id number] neutrophils and milky appearance. Pleural fluid growing [...] Med Name: Prostate Complete Zinc, Selenium, Saw Grafton, Lycopene, Turmeric, Resveratrol, Pomegranate Vitamin C 1,000 [...] Never true Utilities: Not At Risk (01/10/2024) [facility] Utilities Threatened with loss of utilities: No Intimate Partner Violence: Not At Risk (01/10/2024) Humiliation, Afraid, Rape, and Kick questionnaire Fear of Current or Ex-Partner: No Emotionally Abused: No Physically Abused: No Sexually Abused: No CONDITION AT DISCHARGE stable I saw and evaluated Kavon Song today and provided counseling [id number] at bedside. I personally spent a total of 35 minutes in counseling and coordination of care as described above to facilitate the hospital discharge. Discharge instructions were provided to the patient and caregiver(s). T MANAGER documented in this encounter Discharge Instructions * Discharge Instr - Diet* Michelle Saha - 01/11/2024 12:45 PM FLEET MANAGER Increase nutrition intake with small, frequent meals Medical food supplement(s) of choice T MANAGER * Discharge Instr - Non Trejo Follow-Ups* Vesna Koehler - 01/11/2024 3:27 PM FLEET MANAGER Reason for Appointment: Post hospital Name of Clinic/Facility:[facility] Follow-up Provider: Tate Bear Type of Appointment: (in person or video):In Person Date/Time of Appointment: Thursday January 18, 2024 at 11:40 am Appointment Location/address: [facility] Jacinda barclay [facility] [address] Phone number/ contact information for provider: If you need to reschedule please call [phone] T MANAGER documented in this encounter Medications at Time [...] Med Name: Prostate Complete Zinc, Selenium, Saw Grafton, Lycopene, Turmeric, Resveratrol, Pomegranate amoxicillin-pot clavulanate (Augmentin) 500-125 mg per tablet Take 1 tablet (500 mg total) by mouth 2 (two) times a day for 15 days. 30 tablet 01/11/2024 documented as of this encounter Progress Notes * Sharita Julian L.S.W. - 01/11/2024 3:26 PM CST SUBJECTIVE Patient is a 83 y.o. male who was admitted to [facility] 01/01/2024 due to Failure Renal Acute [...] as needed and requested. Alan Hawthorne 01/11/24 T MANAGER * Antonio Dela Cruz PElielT., D.P.T. - 01/11/2024 2:30 PM CST Physical Therapy Inpatient Treatment Note SUBJECTIVE Patient: Kavon [place]ston Room: [address] [place] [address] Referring/Attending Provider: Jeremías Fernandez M.D. Medical Diagnosis: [...] Precautions Weight Bearing Status: Not applicable Bed Alarm/[place]: No bed alarm or suzi required Invasive [...] reported by patient or noted by this database report writer. Therapeutic Activity: Bed Mobility: Did not occur [...] family and patient were educated on this database report writer[facility] Patient and company present were [...] 16 min Antonio Dela Cruz P.T., D.P.T. T MANAGER * Ora Pathak - 01/11/2024 1:25 PM CST Inpatient Occupational Therapy Treatment SUBJECTIVE Patient: Kavon [place] Room: [facility]- Referring/Attending Provider: Jeremías Fernandez M.D. Medical Diagnosis: Failure Renal Acute (Acute Kidney Injury) (HCC) [N17.9] Payor: [facility] / Plan: [facility] HMO / Product Type: [...] 83 y.o. male who was admitted to [facility] [place] on 01/01/2024 due to Failure Renal Acute [...] Ward M.S., O.T. at 01/11/2024 3:48 PM FLEET MANAGER T MANAGER T MANAGER Associated attestation - Daksha Ward M.S., O.T. - 01/11/2024 3:48 PM FLEET MANAGER I certify that the above rehabilitation services [...] morning. Pt didn't have an order in [employer] for breakfast but did have his order [...] Weight: 39.9 kg BMI (Calculated): 13.8 kg/m?? Schroeder Body Weight (Calculated) : 66.1 kg % Schroeder Body Weight: 96 % IBW Dietary Orders [...] Croft RDN, TUTU at 01/11/2024 1:06 PM FLEET MANAGER T MANAGER T MANAGER * Fidencio Oliva M.D. - 01/11/2024 8:50 [...] minutes on the same day of encounter. T MANAGER * Jeremías Fernandez M.D. - 01/10/2024 12:38 [...] per Echocardiography Contrast Administration Protocol Reference Document [id number] Rev 05/30/2021. Patient met an inclusion criterion [...] on 01/03/2024 and pleural fluid is showing [id number] neutrophils and milky appearance. Pleural fluid growing [...] was found in lung fluid, will get VISITOR SERVICE ASSISTANT to evaluate for aspiration Chronic Diarrhea Patient [...] wants todo this. Total time: 52 minutes. T MANAGER * Krista Mares M.S., [facility]-VISITOR SERVICE ASSISTANT - 01/09/2024 11:57 AM CST 01/09/24 1157 [...] swallow study Thursday should secretion burden persist. Electronically signed by Krista Mares M.S., [facility]-VISITOR SERVICE ASSISTANT at 01/09/2024 11:58 AM FLEET MANAGER * Olena Ramirez RDN, TUTU - 01/09/2024 [...] Intake, Nausea/Vomiting/Diarrhea, Pertinent Labs, Ascites/Edema, Weight Status T MANAGER * Jeremías Fernandez M.D. - 01/09/2024 7:58 [...] per Echocardiography Contrast Administration Protocol Reference Document [id number] Rev 05/30/2021. Patient met an inclusion criterion [...] on 01/03/2024 and pleural fluid is showing [id number] neutrophils and milky appearance. Pleural fluid growing [...] was found in lung fluid, will get VISITOR SERVICE ASSISTANT to evaluate for aspiration Chronic Diarrhea Patient [...] wants todo this. Total time: 56 minutes. T MANAGER T MANAGER T MANAGER * Ora Pathak - 01/08/2024 2:26 PM CST 01/08/24 1426 Reason Therapy Missed Reason Therapy Missed Patient declined therapy Pt declined OT today due to fatigue. Will follow up on next available date. Cosigned by Moriah Washington, O.Sabas at 01/08/2024 3:16 PM FLEET MANAGER T MANAGER T MANAGER Associated attestation - Moriah Washington O.T. - 01/08/2024 3:16 PM FLEET MANAGER I certify that the above rehabilitation services [...] if any pulmonary specific questions arise, consult [facility]. Otherwise will supervisor picking crew service on Thursday. Total time spent non-F2F time spent 35 minutes on the same day of encounter. T MANAGER * Jet Palomares M.D. - 01/08/2024 11:28 [...] Patient follow- up with Dr. Barrientos in [facility]. T MANAGER * Antonio Dela Cruz P.T., D.P.T. - 01/08/2024 11:24 AM CST Physical Therapy Inpatient Treatment Note SUBJECTIVE Patient: Kavon [place] Room: [facility]- Referring/Attending Provider: Jeremías Fernandez M.D. Medical Diagnosis: 1. Failure Renal Acute (Acute Kidney Injury) (HCC) Payor: [facility] / Plan: [facility] HMO / Product Type: [...] Precautions Weight Bearing Status: Not applicable Bed Alarm/[place]: No bed alarm or suzi required Invasive Lines/Drains: Telemetry Oxygen Delivery: Room air OBJECTIVE Patient Presents: supine in bed Pain Assessment: Pain: No pain behaviors noted this therapy session. Adverse Response to Treatment: none Symptoms of pallor, shortness of breath, lightheadedness, and dizziness monitored throughout the session. No symptoms reported by patient or noted by this database report writer. Therapeutic Activity: Bed Mobility: Supine to [...] 24 min Antonio Dela Cruz P.T., D.P.T. T MANAGER * Michelle Saha - 01/08/2024 10:54 AM CST Calorie Count Intake for 01/07 Oral Kcal: 655 24 Hr Total Calorie Intake: 655 Comments: Meeting 42% of energy needs. Oral Protein: 39 24 Hr Total Protein Intake: 39 Comments: Meet 62% of protein needs. No changes in nutrition care, continue terrie count. Cosigned by Olena Ramirez RDN, LD at 01/08/2024 11:31 AM FLEET MANAGER T MANAGER T MANAGER * Jeremías Fernandez M.D. - 01/08/2024 8:00 [...] per Echocardiography Contrast Administration Protocol Reference Document [id number] Rev 05/30/2021. Patient met an inclusion criterion [...] on 01/03/2024 and pleural fluid is showing [id number] neutrophils and milky appearance. Pleural fluid growing [...] was found in lung fluid, will get VISITOR SERVICE ASSISTANT to evaluate for aspiration Chronic Diarrhea Patient [...] notes for updates. Total time: 53 minutes. T MANAGER T MANAGER * Michelle Saha J - 01/07/2024 1:48 [...] Weight: 59.1 kg BMI (Calculated): 20.4 kg/m?? Schroeder Body Weight (Calculated) : 66.1 kg % Schroeder Body Weight: 96 % IBW Dietary Orders [...] Ramirez RDN, LD at 01/07/2024 2:10 PM FLEET MANAGER T MANAGER T MANAGER * Chapito Velazquez D.O. - 01/07/2024 12:06 [...] on 01/03/2024 and pleural fluid is showing [id number] neutrophils and milky appearance. Chronic Diarrhea Patient [...] spent in counseling and coordination of care. T MANAGER T MANAGER * Antonio Dela Cruz P.T., D.P.T. - 01/07/2024 10:47 AM CST Physical Therapy Inpatient Treatment Note SUBJECTIVE Patient: Kavon Thomasston Room: [address] [place] [address] Referring/Attending Provider: Chapito Velazquez D.O. Medical Diagnosis: 1. Failure Renal Acute (Acute Kidney Injury) (HCC) Payor: [facility] / Plan: [employer] H[employer] [...] Precautions Weight Bearing Status: Not applicable Bed Alarm/[place]: No bed alarm or suzi required Invasive [...] around the foot of the bed, this database report writer received assistance from social staff worker to follow the patient with the bedside [...] (min): 9 min Antonio Thomez, P.T., D.P.T. T MANAGER * Sarah Perry M.D. - 01/07/2024 10:19 AM CST Images from the original note were not included. Infectious Diseases [place] [facility] Progress Note SUBJECTIVE REASON FOR [...] Results (from the past 24 hours) [id number] [employer] Test for Pathogen Detection - Miscellaneous Test Collection Time: 01/06/24 11:36 AM Result Value Test Name Bronwyn Test for Pathogen Detection Result Specimen sent [...] Value - Date/Time Tropheryma whipplei PCR, Blood [[id number]] Collected: 01/06/24 1136 Lab Status: In process Specimen: Blood, Venous Updated: 01/07/24 0807 Bacterial Culture, Aerobic + Susceptibility [[id number]] (Abnormal) Collected: 01/05/24 1250 Lab Status: Preliminary result Specimen: Pleural Fluid Updated: 01/07/24 0850 Bacterial Culture, Aerobic + Susc STREPTOCOCCUS ANGINOSUS GROUP Two [place] Gram Stain [[id number]] (Abnormal) Collected: 01/05/24 1250 Lab Status: Final result Specimen: Pleural Fluid Updated: 01/05/24 1446 Gram Stain White blood cells, Many. GRAM POSITIVE COCCI Many. Bacterial Culture, Anaerobic + Susceptibility [[id number]] Collected: 01/05/24 1250 Lab Status: Preliminary result Specimen: Pleural Fluid Updated: 01/07/24 0603 Bacterial Culture, Anaerobic No growth to date. MRSA PCR, Nasal [[id number]] Collected: 01/04/241944 Lab Status: Final result Specimen: Swab from Nares Updated: 01/04/242123 MRSA Screen, Nasal by PCR Negative Bacterial Culture, Aerobic + Susceptibility, Respiratory [[id number]] Collected: 01/04/241944 Lab Status: Final result Specimen: Sputum Updated: 01/06/24 0819 Bacterial Culture, Aerobic, Resp No growth after 2 days of incubation. Gram Stain [[id number]] (Abnormal) Collected: 01/04/241944 Lab Status: Final result Specimen: Sputum Updated: 01/04/24 2040 Gram Stain White blood cells, Many. GRAM POSITIVE COCCI Many. Pneumonia Panel, PCR [[id number]] Collected: 01/04/241944 Lab Status: Final result Specimen: [...] This assay is performed using the FDA-cleared [employer] Pneumonia Panel (PN) (Weroom.). Any initial empiric treatment guidance provided in [...] SARS-CoV-2. Bacteria / Cheri Culture, Blood #1 [[id number]] Collected: 01/03/24 1053 Lab Status: Preliminary result Specimen: Blood, Peripheral Draw Updated: 01/06/24 1105 Bacteria/Cheri Culture, Blood No growth to date. Bacteria / Cheri Culture, Blood #2 [[id number]] Collected: 01/03/24 1052 Lab Status: Preliminary result Specimen: Blood, Peripheral Draw Updated: 01/06/24 1105 Bacteria/Cheri Culture, Blood No growth to date. Hepatitis B Surface Antigen [[id number]] Collected: 01/03/24641 Lab Status: Final result Specimen: Blood, Peripheral Draw Updated: 01/03/24 0807 HBs Antigen, S Nonreactive HBs Antibody, Serum [[id number]] Collected: 01/03/24641 Lab Status: Final result Specimen: [...] Indeterminate >=11.50: Positive HBc Total Ab, Serum [[id number]] Collected: 01/03/24641 Lab Status: Final result Specimen: Blood, Peripheral Draw Updated: 01/04/24 1153 HBc Total Ab, S Negative QuantiFERON-Tb Gold Plus, Blood [[id number]] Collected: 01/03/24641 Lab Status: In process Specimen: Blood, Venous Updated: 01/04/24 105 Narrative: Specimen Information: Specimen ID: [id number] Specimen Type: Blood Specimen Collection Start Date: 01/03/2024 6:42 AM Specimen Received Date: 01/04/2024 10:57 AM Specimen ID: [id number] Specimen Type: Blood Specimen Collection Start Date: 01/03/2024 6:42 AM Specimen Received Date: 01/04/2024 10:57 AM Specimen ID: [id number] Specimen Type: Blood Specimen Collection Start Date: 01/03/2024 6:42 AM Specimen Received Date: 01/04/2024 10:57 AM Specimen ID: [id number] Specimen Type: Blood Specimen Collection Start Date: 01/03/2024 6:42 AM Specimen Received Date: 01/04/2024 10:57 AM Gram Stain [[id number]] (Abnormal) Collected: 01/03/24 06 Lab Status: Final result Specimen: Pleural Fluid, Right Updated: 01/03/24 1733 Gram Stain White blood cells, Many. GRAM POSITIVE COCCI Many. Bacterial Culture, Aerobic + Susceptibility [[id number]] (Abnormal) (Susceptibility) Collected: 01/03/24 06 Lab Status: [...] mcg/mL Susceptible Bacterial Culture, Anaerobic + Susceptibility [[id number]] Collected: 01/03/24 0610 Lab Status: Preliminary result Specimen: Pleural Fluid, Right Updated: 01/05/24 1131 Bacterial Culture, Anaerobic No growth to date. Broad Range Bacteria PCR + Sequencing [[id number]] (Abnormal) Collected: 01/03/24 06 Lab Status: Preliminary result Specimen: Pleural Fluid, Right Updated: 01/06/24 1249 Broad Range Bacteria PCR+Sequencing This test was developed and its performance characteristics determined by [facility] in a manner consistent with CLIA requirements. This test has not been cleared or approved by the U.S. Food and Drug Administration. STREPTOCOCCUS INTERMEDIUS DNA detected Comment: Semi-Urgent Result. Semi-Urgent This is a semi-urgent result M tuberculosis Complex PCR [[id number]] Collected: 01/03/24 0610 Lab Status: Final result [...] developed and its performance characteristics determined by [facility] in a manner consistent with CLIA [...] #3 Mass Lung #4 Hyponatremia #5 Hypokalemia T MANAGER * Portia Raoms M.D., Ph.D. - 01/07/2024 10:05 AM CST [...] outpatient setting. Kavon agreed with the plan. T MANAGER * Sri Renae Pharm.D., R.Ph., [facility] - 01/07/2024 9:29 AM CST Pharmacy Abbreviated [...] to continue HD Please contact pharmacy at [phone] with questions regarding this note. Electronically signed by: Sri Renae, Pharm.D., R.Ph., BCPS 01/07/24 9:29 AM FLEET MANAGER T MANAGER * Ora Pathak - 01/07/2024 9:12 AM CST Inpatient Occupational Therapy Treatment SUBJECTIVE Patient: Kavon Song Room: [address] [place] [address] Referring/Attending Provider: Chapito Velazquez D.O. Medical Diagnosis: Failure Renal Acute (Acute Kidney Injury) (HCC) [N17.9] Payor: [facility] / Plan: [employer] HMO / Product Type: HMO / Onset [...] 83 y.o. male who was admitted to [facility] [place] on 01/01/2024 due to Failure Renal Acute [...] Moriah Washington O.Sabas at 01/07/2024 3:09 PM FLEET MANAGER T MANAGER T MANAGER Associated attestation - Moriah Washington O.Anabella. - 01/07/2024 3:09 PM FLEET MANAGER I certify that the above rehabilitation services [...] minutes on the same day of encounter. T MANAGER T MANAGER * Jeremías Fernandez M.D. - 01/06/2024 4:13 [...] per Echocardiography Contrast Administration Protocol Reference Document [id number] Rev 05/30/2021. Patient met an inclusion criterion [...] on 01/03/2024 and pleural fluid is showing [id number] neutrophils and milky appearance. Pleural fluid Gram [...] least 4-5 days. Total time: 65 minutes. T MANAGER * Antonio Dela Cruz PLuis M, D.P.T. - 01/06/2024 2:34 PM CST Physical Therapy Inpatient Treatment Note SUBJECTIVE Patient: Kavon [place] Room: [address] [place] [address] Referring/Attending Provider: Jeremías Fernandez M.D. Medical Diagnosis: 1. Failure Renal Acute (Acute Kidney Injury) (HCC) Payor: [facility] / Plan: [employer] H[employer] / Product Type: HMO / Subjective Comments: Physical therapy attempted this morning, but patient declined PT secondary to fatigue. This afternoon, this database report writer worked with nursing staff transfer the [...] Precautions Weight Bearing Status: Not applicable Bed Alarm/[place]: No bed alarm or suzi required Invasive [...] reported by patient or noted by this database report writer. Therapeutic Activity: Bed Mobility: Sit to [...] 11 min Antonio Dela Cruz P.T., Arlene.P.T. T MANAGER T MANAGER * Fidencio Oliva M.D. - 01/06/2024 10:35 [...] minutes on the same day of encounter. T MANAGER * Portia Ramos M.D., Ph.D. - 01/06/2024 [...] dietitian consult to improve his nutrition status. T MANAGER * Ora Pathak - 01/06/2024 9:50 AM CST Inpatient Occupational Therapy Treatment SUBJECTIVE Patient: Kavon Jacobs [place] Room: [address] [place] [address] Referring/Attending Provider: Jeremías Fernandez M.D. Medical Diagnosis: Failure Renal Acute (Acute Kidney Injury) (HCC) [N17.9] Payor: [facility] / Plan: [employer] HMO / Product Type: HMO / Onset [...] 83 y.o. male who was admitted to [facility] in [place] on 01/01/2024 due to Failure Renal Acute [...] transfers, shower transfers, medication set up/administration, financial advocate, showering/bathing, transportation, housekeeping, shopping, and meal preparation [...] Moriah Washington O.T. at 01/06/2024 3:56 PM FLEET MANAGER T MANAGER T MANAGER Associated attestation - Moriah Washington O.T. - 01/06/2024 3:56 PM FLEET MANAGER I certify that the above rehabilitation services [...] per Echocardiography Contrast Administration Protocol Reference Document [id number] Rev 05/30/2021. Patient met an inclusion criterion [...] on 01/03/2024 and pleural fluid is showing [id number] neutrophils and milky appearance . Pleural fluid [...] Disposition: Pending clinical improvement. Dirk Ortiz, Ch.B. T MANAGER T MANAGER * Antonio Dela Cruz P.T., D.P.T. - 01/05/2024 3:28 PM CST Physical Therapy Inpatient Treatment Note SUBJECTIVE Patient: Kavon [place] Room: [address] [place] [address] Referring/Attending Provider: Octavio Morton M.B. Medical Diagnosis: 1. Failure Renal Acute (Acute Kidney Injury) (HCC) Payor: [facility] / Plan: [employer] HMO / Product Type: HMO / Subjective [...] Precautions Weight Bearing Status: Not applicable Bed Alarm/[place]: No bed alarm or suzi required Invasive [...] reported by patient or noted by this database report writer. Therapeutic Exercise: Patient was educated on [...] 16 min Antonio Dela Cruz P.T., Arlene.P.T. T MANAGER * Fidencio Oliva M.D. - 01/05/2024 2:37 [...] minutes on the same day of encounter. T MANAGER * Ora Pathak - 01/05/2024 1:40 PM CST Inpatient Occupational Therapy Treatment SUBJECTIVE Patient: Kavon Song Room: [facility] ROOM* Referring/Attending Provider: Octavio Morton M.B. Medical Diagnosis: Failure Renal Acute (Acute Kidney Injury) (HCC) [N17.9] Payor: [facility] / Plan: [employer] [facility] HMO / Product Type: HMO / Onset [...] 83 y.o. male who was admitted to [facility] in [place] on 01/01/2024 due to Failure Renal Acute [...] transfers, shower transfers, medication set up/administration, financial advocate, showering/bathing, transportation, housekeeping, shopping, eating/feeding, and meal [...] Moriah Washington O.T. at 01/05/2024 3:42 PM FLEET MANAGER T MANAGER T MANAGER Associated attestation - Moriah Washington O.Anabella. - 01/05/2024 3:42 PM FLEET MANAGER I certify that the above rehabilitation services [...] 1.9 mg/dL - established with Dr.Suarez Barrientos [facility] 3. Hypokalemia - resolved 4. [...] will continue to follow at this time. T MANAGER * Sri Renae, Pharm.D., R.Ph., [facility] - 01/05/2024 11:08 AM CST Pharmacy [...] to continue HD Please contact pharmacy at [phone] with questions regarding this note. Electronically signed by: Sri Renae Pharm.D., R.Ph., BCPS 01/05/24 11:08 AM FLEET MANAGER T MANAGER * Jennifer Owens M.S., O.T. - 01/04/2024 4:00 PM CST 01/04/24 1600 Reason Therapy Missed Reason Therapy Missed Receiving other care OT treatment not completed as pt was receiving dialysis when attempted this afternoon. Will continue to follow. T MANAGER * Portia Ramos M.D., Ph.D. - 01/04/2024 [...] anemia workup. He is not iron deficient. T MANAGER * Michelle Saha - 01/04/2024 2:03 PM [...] Weight: 64.8 kg BMI (Calculated): 22.4 kg/m?? Schroeder Body Weight (Calculated) : 66.1 kg % Schroeder Body Weight: 96 % IBW Dietary Orders [...] Petty RDN, TUTU at 01/04/2024 2:56 PM FLEET MANAGER T MANAGER T MANAGER * Octavio Morton M.B., Ch.B. - 01/04/2024 [...] per Echocardiography Contrast Administration Protocol Reference Document [id number] Rev 05/30/2021. Patient met an inclusion criterion [...] on 01/03/2024 and pleural fluid is showing [id number] neutrophils and milky appearance . Pleural fluid [...] Disposition: Pending clinical improvement. Dirk Ortiz, Ch.B. T MANAGER T MANAGER T MANAGER * Antonio Dela Cruz P.T., D.P.T. - 01/04/2024 10:58 AM CST Physical Therapy Inpatient Treatment Note SUBJECTIVE Patient: Kavon Thomasston Room: [address] [place] [address] Referring/Attending Provider: Octavio Morton M.B. Medical Diagnosis: 1. Failure Renal Acute (Acute Kidney Injury) (HCC) Payor: [facility] / Plan: [employer] HMO [...] Precautions Weight Bearing Status: Not applicable Bed Alarm/[place]: No bed alarm or suzi required Invasive [...] reported by patient or noted by this database report writer. Therapeutic Activity: Bed Mobility: Supine to [...] x2 during last PT session. Unfortunately, this database report writer noted some redness on bilateral posterior aspect of heels and patient verbalizes tenderness/pain to bilateral heels and some pain when sitting on his buttocks. This database report writer educated the patient on the Prevalon heel offloading boots and this database report writer donned boots bilaterally.Nursing staff was notified of patient's buttock pain and noted redness on heels. This database report writer also placed a Gel-Foam cushion in the patient's seat to help with buttock pain/pressure. With heels independent position, patient reported that he was comfortable and was able to tolerate sitting. This database report writer recommended patient remained sitting upright for [...] 28 min Antonio Dela Cruz P.T., D.P.T. T MANAGER * Sri Renae, Sivakumar., R.Ph., [facility] - 01/04/2024 10:06 AM CST Pharmacy [...] improvement (5-7 day) Please contact pharmacy at [phone] with questions regarding this note. Electronically signed by: Sri Renae Pharm.D., R.Ph., BCPS 01/04/24 10:06 AM FLEET MANAGER T MANAGER * Giulia Hughes, R.Ph. - 01/04/2024 9:09 [...] Med Name: Prostate Complete Zinc, Selenium, Saw G[place]on, Lycopene, Turmeric, Resveratrol, Pomegranate T MANAGER * Jet Palomares M.D. - 01/03/2024 11:09 [...] morning. Suggest to check BMP this afternoon. T MANAGER * Gayla Watson L.S.W. - 01/03/2024 11:02 AM CST SUBJECTIVE Patient is a 83 y.o. male who was admitted to [facility] 01/01/2024 due to Failure Renal Acute [...] nursing and the provider during these times. Swim Coach placed a call to patients Viviana to discuss short term rehab referrals. Viviana stated isn't rehab a little bit premature?. Swim Coach educated Viviana on hospital policy and [facility]. Viviana informed database report writer that patient will not be going to any [facility] facilities, nor will he be going to a facility in [place]. Viviana remained hesitant to provide referrals. Viviana reports she would be interested in [facility] in [place]. Viviana requests database report writer to meet with her tomorrow, when she will be at the hospital with patient. Swim Coach placed referrals. Destination - Admitted Since 01/01/2024 Service Provider Request Status Services Address Phone Fax Patient Preferred [facility] Pending - Request Sent -- [phone] [address] [phone] -- [facility] Pending - Request Sent -- [address] [facility] [phone] -- PLAN Social work will assist as needed and requested. Alan Awan 01/03/24 T MANAGER * Octavio Morton M.B., Ch.B. - 01/03/2024 [...] Disposition: Pending clinical improvement. Dirk Ortiz, Ch.B. T MANAGER T MANAGER * Octavio Morton M.B., B. - 01/02/2024 [...] improvement. Continue to monitor in the PCU T MANAGER T MANAGER * Deanna Lewis APRN, C.N.P., D.N.P., M.S.N. - 01/02/2024 1:06 AM FLEET MANAGER OVERNIGHT EVENT Date of Admission: 01/01/2024 Mr. [...] with associated atelectasis. Minimal left basilar atelectasis. T MANAGER T MANAGER T MANAGER * Clemencia Sim Pharm.D., R.Ph. - 01/01/2024 [...] Lauraamanda Sim Pharm.D., R.Ph. 01/01/24 11:20 PM FLEET MANAGER Addendum: Vanco discontinued Electronically signed by: Jessika Restrepo Pharm.D., R.Ph. 01/02/24 10:27 AM FLEET MANAGER T MANAGER T MANAGER T MANAGER documented in this encounter H&P Notes * Fausto Bey M.D. - 01/01/2024 9:21 PM CST Kavon Jacobs [place] [phone] SUBJECTIVE CHIEF COMPLAINT Failure to thrive and general weakness HISTORY OF PRESENT ILLNESS This is a 83yo gentleman with history of chronic kidney disease (baseline Cr 1.9), chronic diarrheapresented with progressive weakness. He arrives to the [facility] ED with a failure to thrive this [...] Would be ok with short term hemodialysis [facility] does not have nephrology available. Previously seen by [facility] Dr. Floyd Jose in 2023, but [facility] did not have Med/Surg/PCU Bed Capacity at this time. Case was discussed with nephrology in [place], who agreed with transfer to [facility] for further management. PAST MEDICAL HISTORY: [...] Insecurity: No Food Insecurity (07/17/2022) [facility] [employer] [facility] Insecurity Worried About Running Out of Food in the Last Year: 1 Transportation Needs: No Transportation Needs (07/17/2022) Received from [employer] [facility], [facility] [facility] Transportation Needs Lack of Transportation (Medical): 1 Intimate Partner Violence: Not on file Housing Stability: Low Risk (07/17/2022) Received from [employer] [facility], [facility] [employer] Housing Stability Unable to Pay for [...] Dispo: Pending medical stabiliztion. Fausto Bey M.D. T MANAGER documented in this encounter Procedure Notes * [...] Events: none Patient tolerance of procedure: successful T MANAGER documented in this encounter Consult Notes * Krista Mares M.S., [facility]-VISITOR SERVICE ASSISTANT - 01/11/2024 1:00 PM CST Speech-Language Pathology [...] thin liquids. Likely d/c today. No further VISITOR SERVICE ASSISTANT needs on inpatient or outpatient basis. PLAN VISITOR SERVICE ASSISTANT Ongoing Services: Ongoing formal Speech Pathology services [...] evaluation, diet recommendations and swallowing strategies, additional VISITOR SERVICE ASSISTANT needs warranted. GOALS Dysphagia Grocery Sacker Goal Dysphagia Detention Goal: Maintain adequate nutrition/hydration via PO intake without pulmonary decline Dysphagia Detention Goal Progress Toward Goal: Progress toward goal completion: continue on target Time Spent with Patient 30 Minutes Electronically signed by: Krista Mares M.S., CCC-VISITOR SERVICE ASSISTANT 01/11/24 1:23 PM FLEET MANAGER T MANAGER * Sarah Perry M.D. - 01/06/2024 10:42 AM CSTAssociated Order(s): IP CONSULT TO INFECTIOUS DISEASES Images from the original note were not included. Infectious Diseases [place] [employer] CONSULT NOTE SUBJECTIVE CHIEF COMPLAINT/REASON [...] It is at home with , from [place], [place]. No recent travel, obvious sick contacts. 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 The following portions of the patient's history [...] - Date/Time Bacterial Culture, Aerobic + Susceptibility [[id number]] Collected: 01/05/24 1250 Lab Status: Preliminary result Specimen: Pleural Fluid Updated: 01/06/24 0627 Bacterial Culture, Aerobic + Susc No growth to date Gram Stain [[id number]] (Abnormal) Collected: 01/05/24 125 Lab Status: Final result Specimen: Pleural Fluid Updated: 01/05/24 1446 Gram Stain White blood cells, Many. GRAM POSITIVE COCCI Many. Bacterial Culture, Anaerobic + Susceptibility [[id number]] Collected: 01/05/24 125 Lab Status: In process Specimen: Pleural Fluid Updated: 01/05/24 1348 MRSA PCR, Nasal [[id number]] Collected: 01/04/241944 Lab Status: Final result Specimen: Swab from Nares Updated: 01/04/244 MRSA Screen, Nasal by PCR Negative Bacterial Culture, Aerobic + Susceptibility, Respiratory [[id number]] Collected: 01/04/241944 Lab Status: Final result Specimen: Sputum Updated: 01/06/24 0819 Bacterial Culture, Aerobic, Resp No growth after 2 days of incubation. Gram Stain [[id number]] (Abnormal) Collected: 01/04/241944 Lab Status: Final result Specimen: Sputum Updated: 01/04/24 2040 Gram Stain White blood cells, Many. GRAM POSITIVE COCCI Many. Pneumonia Panel, PCR [[id number]] Collected: 01/04/241944 Lab Status: Final result Specimen: [...] This assay is performed using the FDA-cleared AOT Bedding Super HoldingsArray Pneumonia Panel (PN) (Weroom.). Any initial empiric treatment guidance provided in [...] SARS-CoV-2. Bacteria / Cheri Culture, Blood #1 [[id number]] Collected: 01/03/24 1053 Lab Status: Preliminary result Specimen: Blood, Peripheral Draw Updated: 01/05/24 1105 Bacteria/Cheri Culture, Blood No growth to date. Bacteria / Cheri Culture, Blood #2 [[id number]] Collected: 01/03/24 1052 Lab Status: Preliminary result Specimen: Blood, Peripheral Draw Updated: 01/05/24 1105 Bacteria/Cheri Culture, Blood No growth to date. Hepatitis B Surface Antigen [[id number]] Collected: 01/03/2442 Lab Status: Final result Specimen: Blood, Peripheral Draw Updated: 01/03/24 0807 HBs Antigen, S Nonreactive HBs Antibody, Serum [[id number]] Collected: 01/03/2442 Lab Status: Final result Specimen: [...] Indeterminate >=11.50: Positive HBc Total Ab, Serum [[id number]] Collected: 01/03/24641 Lab Status: Final result Specimen: Blood, Peripheral Draw Updated: 01/04/24 1153 HBc Total Ab, S Negative QuantiFERON-Tb Gold Plus, Blood [[id number]] Collected: 01/03/24641 Lab Status: In process Specimen: Blood, Venous Updated: 01/04/24 1057 Narrative: Specimen Information: Specimen ID: [id number] Specimen Type: Blood Specimen Collection Start Date: 01/03/2024 6:42 AM Specimen Received Date: 01/04/2024 10:57 AM Specimen ID: [id number] Specimen Type: Blood Specimen Collection Start Date: 01/03/2024 6:42 AM Specimen Received Date: 01/04/2024 10:57 AM Specimen ID: [id number] Specimen Type: Blood Specimen Collection Start Date: 01/03/2024 6:42 AM Specimen Received Date: 01/04/2024 10:57 AM Specimen ID: [id number] Specimen Type: Blood Specimen Collection Start Date: 01/03/2024 6:42 AM Specimen Received Date: 01/04/2024 10:57 AM Gram Stain [[id number]] (Abnormal) Collected: 01/03/24609 Lab Status: Final result Specimen: Pleural Fluid, Right Updated: 01/03/24 1733 Gram Stain White blood cells, Many. GRAM POSITIVE COCCI Many. Bacterial Culture, Aerobic + Susceptibility [[id number]] Collected: 01/03/24609 Lab Status: Preliminary result Specimen: Pleural Fluid, Right Updated: 01/04/24 1129 Bacterial Culture, Aerobic + Susc No growth to date Bacterial Culture, Anaerobic + Susceptibility [[id number]] Collected: 01/03/24609 Lab Status: Preliminary result Specimen: Pleural Fluid, Right Updated: 01/05/24 1131 Bacterial Culture, Anaerobic No growth to date. 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 They have3 children together. Citizenship: [place] Citizen Resident Status: [place] Resident Marital Status: Family / Household: Patient lives with his , Viviana in their private home in [place], [place]. Their son, Everton has been very involved and lives close by in [place]. Their daughter, Giulia lives in [place] and other son lives a couple hours away from patient in [facility]. 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 Psychosocial Risk Factors Impacting the Patient: none Current Stressors Hospitalization Coping Skills/Strengths Support from family, son- Everton Financial/Insurance Primary insurance[place] [employer] [facility] [place] Secondary insurance: N/A Advance Directives Legal Decision Maker: Self Advance Directives: N/A Advance Directives Status: Not Activated Baseline Functional Status Baseline Activities of Daily Living Mobility: Requires aide of device Dressing: Needs assistance Feeding: Independent Bathing: Needs assistance Grooming: Independent Toileting: Independent Behavior: Pleasant, Calm, Cooperative, Oriented Communication: Talks, Understands speaking, Understands Burmese, Deaf/hard of hearing Shopping: Dependent Medication Management: [...] Transportation Needs: Wheelchair van Anticipated Discharge Destination: [facility] OBJECTIVE Substance Abuse Patient report no illicit drug, alcohol, or tobacco use currently or in the past. Mental Health Mental Health History: Patient reports no mental health history Patient reports no current concerns Mental Health Treatment History No history of Psychiatric Treatment noted Suicide Risk and Safety Risk Assessment: C-SSRS Short Version: Lares Suicide Severity Rating Scale (C-SSRS) - Short [...] for treatment: Adequate ASSESSMENT / PLAN Discussion case management social worker met with patient, , and [...] options for her near their home in [place], [place]. Also provided this database report writer's contact information. Inquired with of request of options; however, she did not want to give this database report writer options at this time. Stated she wanted tolook it over and follow up later. Interventions Psychosocial assessment completed. Provided supportive services. Provided education regarding the role of social work. Provided education regarding referral resources and options. Provided [facility] Discharge Folder. A list of agencies within the area that patient/family geographically resides or requests has been provided to and reviewed with patient/family. Disclosure of [facility] was provided to and acknowledged by patient/family. Plan Social work to inquire with , Viviana again regarding short term rehab choices. Social work to inquire with patient of short term rehab choices when able. Likely will need wheelchair transportation arranged at discharge-- has ARE insurance. Toma Castro 01/05/2024 T MANAGER * Fidencio Oliva M.D. - 01/04/2024 6:34 [...] pneumonia, effusion, and lung mass. Transferred to [facility] HD placed, empiric antibiotics for pneumonia. Underwent [...] minutes on the same day of encounter. T MANAGER T MANAGER * Jet Palomares M.D. - 01/02/2024 4:51 [...] of 1.9 to 6.3 at ED in [facility]. He was transferred to [facility] for further management. At admission, his [...] and haveanswered all of the patient's questions. T MANAGER * Debora Parr PLuis M, D.P.T. - 01/02/2024 3:21 PM CST Inpatient Physical Therapy Evaluation and Treatment SUBJECTIVE Patient: Kavon Jacobs [place] Room: [facility]- Referring/Attending Provider: Octavio Morton M.B. Medical Diagnosis: 1. Failure Renal Acute (Acute Kidney Injury) ([facility]) Payor: [facility] / Plan: [facility] HMO / Product Type: [...] Isolation Weight Bearing Status: Not applicable Bed Alarm/[place]: No bed alarm or suzi required Invasive [...] Stairs : Did not occur Outcome Measures: [facility] Basic Mobility (V.2) How much help from [...] Climbing 3-5 steps with a railing?: Total [facility] Basic Mobility (V.2) Raw Score: 11 [facility] Basic Mobility (V.2) Standardized Score: 30.25 According [...] including transfers and ambulation if appropriate. Contacted case management social worker, systems program manager, Caregiver, and Occupational therapist regarding discharge/safety [...] (min): 25 min Debora Parr P.T., D.P.T. [facility], Fourth Floor [address] [facility] [address] Dept: [phone] T MANAGER * Jennifer Owens M.S., O.T. - 01/02/2024 2:15 PM CST Inpatient Occupational Therapy Evaluation and Treatment SUBJECTIVE Patient: Kavon Song Room: 473/4737- Referring/Attending Provider: Octavio Morton M.B. Medical Diagnosis: Failure Renal Acute (Acute Kidney Injury) (HCC) [N17.9] Payor: [facility] / Plan: [employer] [facility] HMO / Product Type: HMO / Reason [...] 83 y.o. male who was admitted to [facility] in [place] on 01/01/2024 due to Failure Renal Acute [...] Standardized Score: 33.39 Interpretation: Clinicians answer the -[facility] Inpatient Short Form based on observed patient [...] during session. Contacted patient's nurse and social science professor regarding discharge/safety recommendations and patient's status during therapy session Assessment Discharge Recommendations: From an occupational therapy standpoint, patient would benefit from discharging to short term rehabto continue with occupational therapy. Patient may benefit from assistance with toileting, dressing, toilet transfers, shower transfers, medication set up/administration, financial advocate, showering/bathing, transportation, housekeeping, shopping, eating/feeding, and meal [...] Tracking Total Treatment Time (min): 22 min T MANAGER * Gabrielle Croft RDN, TUTU - 01/02/2024 [...] Weight: 63.4 kg BMI (Calculated): 21.9 kg/m?? Schroeder Body Weight (Calculated) : 66.1 kg % Schroeder Body Weight: 96 % IBW ESTIMATED NEEDS: [...] Meals/Supplement Intake, Weight Status, Pertinent Labs, Nausea/Vomiting/Diarrhea T MANAGER documented in this encounter Nursing Notes * Salina Yu R.N. - 01/11/2024 3:16 PM CST End of Shift Summary: swallow study negative for aspiration, CT chest pending, walked in hallways with OT and climbed stairs, repeat hemoglobin stable, family present at the bedside, will DC today. Electronically signed by: Salina Yu R.N. 01/11/24 3:17 PM FLEET MANAGER T MANAGER * Margy Waters R.N. - 01/11/2024 6:52 AM CST Shift Goals: Clinical Goals for the Shift: VSS, Safety, Rest Identify possible barriers to meeting goals/advancing plan of care: none End of Shift Summary: Pt remained vitally stable for database report writer overnight, he did have several occurences where his O2 would drop down to the low 80's, when database report writer entered the room and elevated the head [...] by: Margy Waters R.N. 01/11/24 6:56 AM FLEET MANAGER T MANAGER * Gisela Concepcion M.S.N., R.N. - 01/10/2024 [...] Achieves optimal ventilation and oxygenation Outcome: Progressing T MANAGER * Elenita Montiel R.N. - 01/10/2024 6:30 [...] CARE: Pt for repeat Scan on Thursday. T MANAGER * Marge Meredith R.N., CCRN, [facility] - 01/09/2024 5:42 PM CST Rapid Response [...] tube out. Interventions: dressing changed, remove from CONCILIATION COURT JUDGE list Recommendations for primary RN: call for concerns with sites or respiratory concerns Rapid RN will continue to monitor for: none at this time Patient Disposition: has improved Rapid RN following prior to transfer to higher level of care, if applicable: Offered debrief to primary nurse: Encouraged primary RN to call CONCILIATION COURT JUDGE with questions, concerns, or if patient condition changes. T MANAGER * Gisela Concepcion M.S.N., R.N. - 01/09/2024 [...] Achieves optimal ventilation and oxygenation Outcome: Progressing T MANAGER * Olegario Oconnor R.N. - 01/09/2024 7:37 [...] has had no issue with oxygen saturation. T MANAGER * Kassandra Hennessy R.N. - 01/09/2024 2:35 [...] the same Encouraged primary RN to call CONCILIATION COURT JUDGE with questions, concerns, or if patient condition [...] the same Encouraged primary RN to call CONCILIATION COURT JUDGE with questions, concerns, or if patient condition [...] 2hrs Bed alarm on for pt safety T MANAGER * Ricky Brown R.N. - 01/07/2024 6:20 [...] output from chest tube. Output: 140 ml T MANAGER * Wendi Pacheco R.N. - 01/06/2024 4:13 [...] Total chest tube output was 310 mL. T MANAGER * Melody Mullins R.N., M[facility]ELLENN - 01/06/2024 [...] primary nurse: Encouraged primary RN to call CONCILIATION COURT JUDGE with questions, concerns, or if patient condition changes. T MANAGER * Ricky Brown R.N. - 01/06/2024 6:29 [...] Note: Chest tube in place, OUTPUT: 202 T MANAGER * Kassandra Hennessy R.N. - 01/05/2024 11:07 [...] the same Encouraged primary RN to call CONCILIATION COURT JUDGE with questions, concerns, or if patient condition changes. T MANAGER * Moriah Neves R.N., CCRN - 01/05/2024 [...] the same Encouraged primary RN to call CONCILIATION COURT JUDGE with questions, concerns, or if patient condition changes. T MANAGER * Gisela Concepcion M.S.N., R.N. - 01/05/2024 [...] and optimal renal function maintained Outcome: Progressing T MANAGER * Ricky Brown R.N. - 01/05/2024 6:22 [...] Progressing Note: Pt stayed on RA overnight T MANAGER * Patsy Storey RElielN. - 01/04/2024 6:26 [...] fluid removal: 2.5 L Patsy Storey R.N. T MANAGER * Ulises Vo RElielN. - 01/03/2024 11:37 [...] and oxygenation Outcome: Progressing Note: Monitor WOB. T MANAGER * Morena Zarate R.N. - 01/03/2024 11:11 AM CST Dialysis Treatment Summary Treatment Summary: The patient completed 2.5 hours of prescribed hemodialysis treatment. Temporary dialysis catheter is not working well, alarms every 15 seconds to 1 minute and with any patient movement, swallowing or talking. ICU rn oncology attempted to reposition catheter and redo sutures, withminimal improvement. orthopaedic technologist trialed every effort to alleviate alarms, but with no success. Pulled 0.9 L. Heparin: No Access used: Catheter - exit site clean and dry. Pre weight: 64.2 kg Post weight: 64.5 kg Net fluid removal: 0.9 L Morena Zarate R.N. T MANAGER * Alicia Vo R.N. - 01/03/2024 2:15 [...] Appeared to be resting well during rounds. T MANAGER * Renae Franklin R.N. - 01/02/2024 6:28 [...] fluid removal: 0.4 L Renae Franklin R.N. T MANAGER * Olegario Oconnor R.N. - 01/02/2024 8:12 [...] None needed SHIFT EVENTS: Pt arrived from [facility] ED due to FRANCISCO, Pneumonia, and pleural [...] PT bladder scanned at 0645 had 349. T MANAGER documented in this encounter Miscellaneous Notes * [...] with PMH of CKD 3b transferred from [facility] with failure to thrive and chronic [...] signed by: Octavio Cavazos 01/05/2024 1:31 PM T MANAGER documented in this encounter Plan of Treatment [...] 01/25/2024 (Approximate), Expires: 04/12/2025 External referral physician (non-[facility]) Outpatient Referral Routine Empyema Pleural (HCC) Ordered: 01/11/2024 documented as of this encounter Procedures Procedure Name Priority Date/Time Associated Diagnosis Comments FL SWALLOW FUNCTION WITH VIDEO AND SPEECH RAD - Routine (most inpatients and all outpatients) 01/11/2024 1:48 PM FLEET MANAGER TESTING LOCATION Timed 01/11/2024 11:5 1 AM FLEET MANAGER HEMOGLOBIN, B Timed 01/11/2024 11:51 AM FLEET MANAGER TYPE AND SCREEN Timed 01/11/2024 11:51 AM FLEET MANAGER DX CHEST PORTABLE 1 VIEW RAD - Routine (most inpatients and all outpatients) 01/11/2024 6:54 AM FLEET MANAGER HEPATIC FUNCTION PANEL, S Routine 01/11/2024 4:48 AM FLEET MANAGER CBC WITH DIFFERENTIAL, B Routine 01/11/2024 4:48 AM FLEET MANAGER PHOSPHORUS (INORGANIC), S Routine 01/11/2024 4:48 AM FLEET MANAGER MAGNESIUM, S Routine 01/11/2024 4:48 AM FLEET MANAGER BASIC METABOLIC PANEL, S/P Routine 01/11/2024 4:48 AM FLEET MANAGER DX CHEST PORTABLE 1 VIEW RAD - Routine (most inpatients and all outpatients) 01/10/2024 6:50 AM FLEET MANAGER HEPATIC FUNCTION PANEL, S Routine 01/10/2024 6:25 AM FLEET MANAGER CBC WITH DIFFERENTIAL, B Routine 01/10/2024 6:25 AM FLEET MANAGER PHOSPHORUS (INORGANIC), S Routine 01/10/2024 6:25 AM FLEET MANAGER MAGNESIUM, S Routine 01/10/2024 6:25 AM FLEET MANAGER BASIC METABOLIC PANEL, S/P Routine 01/10/2024 6:25 AM FLEET MANAGER DX CHEST PORTABLE 1 VIEW RAD - Routine (most inpatients and all outpatients) 01/09/2024 6:50 AM FLEET MANAGER MORPHOLOGY EVALUATION Routine 01/09/2024 6:42 AM FLEET MANAGER MANUAL DIFFERENTIAL, B Routine 01/09/2024 6:42 AM FLEET MANAGER HEPATIC FUNCTION PANEL, S Routine 01/09/2024 6:42 AM FLEET MANAGER CBC WITH DIFFERENTIAL, B Routine 01/09/2024 6:42 AM FLEET MANAGER PHOSPHORUS (INORGANIC), S Routine 01/09/2024 6:42 AM FLEET MANAGER MAGNESIUM, S Routine 01/09/2024 6:42 AM FLEET MANAGER BASIC METABOLIC PANEL, S/P Routine 01/09/2024 6:[address] CHEST WITHOUT IV CONTRAST RAD - Routine (most inpatients and all outpatients) 01/08/2024 1:11 PM FLEET MANAGER DX CHEST 1 VIEW RAD - Routine (most inpatients and all outpatients) 01/08/2024 7:16 AM FLEET MANAGER MORPHOLOGY EVALUATION Routine 01/08/2024 4:47 AM FLEET MANAGER MANUAL DIFFERENTIAL, B Routine 01/08/2024 4:47 AM FLEET MANAGER HEPATIC FUNCTION PANEL, S Routine 01/08/2024 4:47 AM FLEET MANAGER CBC WITH DIFFERENTIAL, B Routine 01/08/2024 4:47 AM FLEET MANAGER PHOSPHORUS (INORGANIC), S Routine 01/08/2024 4:47 AM FLEET MANAGER MAGNESIUM, S Routine 01/08/2024 4:47 AM FLEET MANAGER BASIC METABOLIC PANEL, S/P Routine 01/08/2024 4:47 AM FLEET MANAGER HEMOGLOBIN, B Timed 01/07/2024 3:50 PM FLEET MANAGER DX CHEST 1 VIEW RAD - Routine (most inpatients and all outpatients) 01/07/2024 7:14 AM FLEET MANAGER MORPHOLOGY EVALUATION Routine 01/07/2024 5:29 AM FLEET MANAGER HEPATIC FUNCTION PANEL, S Routine 01/07/2024 5:29 AM FLEET MANAGER CBC WITH DIFFERENTIAL, B Routine 01/07/2024 5:29 AM FLEET MANAGER PHOSPHORUS (INORGANIC), S Routine 01/07/2024 5:29 AM FLEET MANAGER MAGNESIUM, S Routine 01/07/2024 5:29 AM FLEET MANAGER BASIC METABOLIC PANEL, S/P Routine 01/07/2024 5:29 AM FLEET MANAGER TROPHERYMA WHIPPLEI PCR, B Routine 01/06/2024 11:36 AM FLEET MANAGER MISCELLANEOUS SENT OUT LAB TEST Routine 01/06/2024 11:36 AM FLEET MANAGER HC REF INF DIS DNA/PCR/NGS SEQ Routine 01/06/2024 10:59 AM FLEET MANAGER DX CHEST 1 VIEW RAD - Routine (most inpatients and all outpatients) 01/06/2024 7:19 AM FLEET MANAGER MORPHOLOGY EVALUATION Timed 01/06/2024 5:37 AM FLEET MANAGER MANUAL DIFFERENTIAL, B Timed 01/06/2024 5:37 AM FLEET MANAGER RENAL FUNCTION PANEL, S Timed 01/06/2024 5:37 AM FLEET MANAGER CBC WITH DIFFERENTIAL, B Timed 01/06/2024 5:37 AM FLEET MANAGER MAGNESIUM, S Timed 01/06/2024 5:37 AM FLEET MANAGER ECG STAT 01/06/2024 5:32 AM FLEET MANAGER IR CHEST TUBE PLACEMENT RAD - Routine (most inpatients and all outpatients) 01/05/2024 1:42 PM FLEET MANAGER CYTOLOGY NON-DIRECTOR OF CHILD WELFARE SERVICES Routine 01/05/2024 12:5 0 PM FLEET MANAGER PROTEIN, TOTAL, BF Timed 01/05/2024 12 :50 PM FLEET MANAGER BACTERIAL CULTURE, AEROBIC + SUSC Timed 01/05/2024 12:50 PM FLEET MANAGER CELL COUNT AND DIFFERENTIAL, BF Timed 01/05/2024 12:50 PM FLEET MANAGER TRIGLYCERIDES, BF Timed 01/05/2024 12: 50 PM FLEET MANAGER PH, PLEURAL FLUID Timed 01/05/2024 12: 50 PM FLEET MANAGER GRAM STAIN Timed 01/05/2024 12:50 PM FLEET MANAGER BACTERIAL CULTURE, ANAEROBIC + SUSC Timed 01/05/2024 12:50 PM FLEET MANAGER LACTATE DEHYDROGENASE (LD), BF Timed 01/05/2024 12:50 PM FLEET MANAGER GLUCOSE, BODY FLUID Timed 01/05/2024 1 2:50 PM FLEET MANAGER MORPHOLOGY EVALUATION Routine 01/05/2024 5:52 AM FLEET MANAGER MANUAL DIFFERENTIAL, B Routine 01/05/2024 5:52 AM FLEET MANAGER CBC WITH DIFFERENTIAL, B Routine 01/05/2024 5:52 AM FLEET MANAGER BASIC METABOLIC PANEL, S/P Routine 01/05/2024 5:52 AM FLEET MANAGER PNEUMONIA PANEL, PCR Routine 01/04/2024 7:45 PM FLEET MANAGER BACTERIAL CULTURE, AEROBIC + SUSC, RESP Routine 01/04/2024 7:45 PM FLEET MANAGER NASAL SCREEN FOR MRSA BY RAPID PCR Routine 01/04/2024 7:45 PM FLEET MANAGER GRAM STAIN Routine 01/04/2024 7:45 PM FLEET MANAGER (TTE) 2D ECHO DOPPLER COLOR AND CONTRAST Routine 01/04/2024 10:38 AM FLEET MANAGER URINALYSIS WITH MICROSCOPIC IF INDICATED, U Routine 01/04/2024 5:56 AM FLEET MANAGER SODIUM, RANDOM, U Routine 01/04/2024 5:5 6 AM FLEET MANAGER HC URINALYSIS AUTO WO MICRO Routine 01/04/2024 5:56 AM FLEET MANAGER PROTEIN/CREATININE RATIO, RANDOM, URINE Routine 01/04/2024 5:56 AM FLEET MANAGER NT-PRO B-TYPE NATRIURETIC PEPTIDE (BNP), S Routine 01/04/2024 4:56 AM FLEET MANAGER IRON AND TOT IRON-BINDING CAPACITY, S/P Routine 01/04/2024 4:56 AM FLEET MANAGER CBC WITH DIFFERENTIAL, B Routine 01/04/2024 4:56 AM FLEET MANAGER PARATHYROID HORMONE (PTH), S Routine 01/04/2024 4:56 AM FLEET MANAGER FERRITIN, S Routine 01/04/2024 4:56 AM FLEET MANAGER BASIC METABOLIC PANEL, S/P Routine 01/04/2024 4:56 AM FLEET MANAGER CYTOLOGY NON-DIRECTOR OF CHILD WELFARE SERVICES Timed 01/03/2024 5:09 PM FLEET MANAGER US THORACENTESIS RIGHT WITH IMAGING GUIDANCE RAD - Routine (most inpatients and all outpatients) 01/03/2024 5:04 PM FLEET MANAGER BASIC METABOLIC PANEL, S/P Timed 01/03/2024 1:56 PM FLEET MANAGER HEMODIALYSIS Routine 01/03/2024 11:28 AM FLEET MANAGER BACTERIA / CHERI CULTURE, BLOOD Routine 01/03/2024 10:53 AM FLEET MANAGER LACTATE FOR SEPSIS WITH REFLEX Routine 01/03/2024 10:52 AM FLEET MANAGER BACTERIA / CHERI CULTURE, BLOOD Routine 01/03/2024 10:52 AM FLEET MANAGER ALBUMIN, S/P Routine 01/03/2024 10:51 AM FLEET MANAGER HEMODIALYSIS Routine 01/03/2024 8:16 AM FLEET MANAGER PH BLOOD GAS Routine 01/03/2024 6:42 AM FLEET MANAGER QUANTIFERON-TB GOLD PLUS, B Routine 01/03/2024 6:42 AM FLEET MANAGER VITAMIN D, IMMUNOASSAY, TOTAL, S Routine 01/03/2024 6:42 AM FLEET MANAGER NT-PRO B-TYPE NATRIURETIC PEPTIDE (BNP), S Routine 01/03/2024 6:42 AM FLEET MANAGER HBC TOTAL AB, SERUM Routine 01/03/2024 6 :42 AM FLEET MANAGER HBS ANTIBODY, SERUM Routine 01/03/2024 6 :42 AM FLEET MANAGER HEPATITIS B SURFACE ANTIGEN Routine 01/03/2024 6:42 AM FLEET MANAGER CBC WITH DIFFERENTIAL, B Routine 01/03/2024 6:42 AM FLEET MANAGER CALCIUM, IONIZED, S/B Routine 01/03/2024 6:42 AM FLEET MANAGER BASIC METABOLIC PANEL, S/P Routine 01/03/2024 6:42 AM FLEET MANAGER BROAD RANGE BACTERIA PCR AND SEQUENCING Timed 01/03/2024 6:10 AM FLEET MANAGER LEUKEMIA/LYMPHOMA, PHENOTYPE, V Timed 01/03/2024 6:10 AM FLEET MANAGER PROTEIN, TOTAL, BF Timed 01/03/2024 6: 10 AM FLEET MANAGER M TUBERCULOSIS COMPLEX PCR, V Timed 01/03/2024 6:10 AM FLEET MANAGER BACTERIAL CULTURE, AEROBIC + SUSC Timed 01/03/2024 6:10 AM FLEET MANAGER CHOLESTEROL, BF Timed 01/03/2024 6:10 AM FLEET MANAGER CELL COUNT AND DIFFERENTIAL, BF Timed 01/03/2024 6:10 AM FLEET MANAGER GRAM STAIN Timed 01/03/2024 6:10 AM FLEET MANAGER BACTERIAL CULTURE, ANAEROBIC + SUSC Timed 01/03/2024 6:10 AM FLEET MANAGER LACTATE DEHYDROGENASE (LD), BF Timed 01/03/2024 6:10 AM FLEET MANAGER GLUCOSE, BODY FLUID Timed 01/03/2024 6 :10 AM FLEET MANAGER DX CHEST PORTABLE 1 VIEW RAD - Semiurgent (Fast; most ED patients; some inpatients) 01/02/2024 3:59 PM FLEET MANAGER MC ANE CENTRAL LINE GENERIC PERFORMABLE Routine 01/02/2024 3:47 PM FLEET MANAGER Failure Renal Acute (Acute Kidney Injury) (HCC) LDA ANE CENTRAL LINE DOUBLE LUMEN ADULT Routine 01/02/2024 3:47 PM FLEET MANAGER Failure Renal Acute (Acute Kidney Injury) (HCC) MT US GUIDE VASC ACCESS Routine 01/02/2024 3:47 PM FLEET MANAGER Failure Renal Acute (Acute Kidney Injury) (HCC) MT INS NON-BLAINE CVC >5YR Routine 01/02/2024 3:47 PM FLEET MANAGER Failure Renal Acute (Acute Kidney Injury) (HCC) HEMODIALYSIS Routine 01/02/2024 2:44 PM FLEET MANAGER MAGNESIUM, S Routine 01/02/2024 11:32 AM FLEET MANAGER BASIC METABOLIC PANEL, S/P Routine 01/02/2024 11:32 AM FLEET MANAGER US KIDNEYS BILATERAL WITH BLADDER RAD - Routine (most inpatients and all outpatients) 01/02/2024 10:15 AM FLEET MANAGER DX CHEST PORTABLE 1 VIEW RAD - Semiurgent (Fast; most ED patients; some inpatients) 01/02/2024 4:24 AM FLEET MANAGER PH BLOOD GAS Routine 01/02/2024 4:10 AM FLEET MANAGER CREATINE KINASE (CK), S Routine 01/02/2024 4:10 AM FLEET MANAGER CALCIUM, IONIZED, S/B Routine 01/02/2024 4:10 AM FLEET MANAGER ALBUMIN, S/P Routine 01/02/2024 4:10 AM FLEET MANAGER LACTATE, B STAT 01/02/2024 3:41 AM FLEET MANAGER NT-PRO B-TYPE NATRIURETIC PEPTIDE (BNP), S Routine 01/02/2024 3:41 AM FLEET MANAGER CBC WITH DIFFERENTIAL, B Routine 01/02/2024 3:41 AM FLEET MANAGER PHOSPHORUS (INORGANIC), S Routine 01/02/2024 3:41 AM FLEET MANAGER OSMOLALITY, S Routine 01/02/2024 3:41 AM FLEET MANAGER MAGNESIUM, S Routine 01/02/2024 3:41 AM FLEET MANAGER VENOUS BLOOD GAS W/COOX, B Routine 01/02/2024 3:41 AM FLEET MANAGER BASIC METABOLIC PANEL, S/P Routine 01/02/2024 3:41 AM FLEET MANAGER ECG Routine 01/02/2024 12:39 AM FLEET MANAGER documented in this encounter Results * FL Swallow Function with Video and Speech or OT (01/11/2024 1:48 PM FLEET MANAGER) Anatomical Region Laterality Modality Gastro Intestinal, Abdominal RST LOS, Abdominal ARZ LOS, Abdominal FLA LOS N/A Digital Radiography Impressions 01/11/2024 4:00 PM FLEET MANAGER Normal modified barium swallow study Narrative 01/11/2024 4:00 PM FLEET MANAGER EXAM: FL SWALLOW FUNCTION WITH VIDEO [...] Result * Testing Location (01/11/2024 11:51 AM FLEET MANAGER) Testing Location [facility] DEFAULT 01/11/2024 11:57 AM FLEET MANAGER [facility] Blood 01/11/2024 11:5 1 AM FLEET MANAGER 01/11/2024 11:57 AM FLEET MANAGER us Jeremías Fernandez M.D. LAB BLOOD BANK TEST ORDERABL ES Final Result [facility] [address] [place] [address], [facility] in [place] [address] [place] [address] * Type and Screen (with Reflex Antibody ID) (01/11/2024 11:51 AM FLEET MANAGER) ABO Group B 01/11/2024 12:58 PM FLEET MANAGER [facility] Rh Type NEG 01/11/2024 12:58 PM FLEET MANAGER [facility] Antibody Screen NEG 12:58 PM FLEET MANAGER MKTO Type & Screen Expiration 01/14/2024 23:59 01/11/2024 12:58 PM FLEET MANAGER MKTO ELXM Eligible Y 01/11/2024 12:58 PM FLEET MANAGER [facility] Blood (Blood, Venous) 01/11/2024 11:51 AM FLEET MANAGER 01/11/2024 11:57 AM FLEET MANAGER Jeremías Fernandez M.D. LAB BLOOD BANK TEST ORDERABL ES Final Result Performing Organization Address City/[facility]/ZIP Co de Phone Number [facility] [address] [place] [address], [place] [address] * (ABNORMAL) Hemoglobin (01/11/2024 11:51 AM FLEET MANAGER) Hemoglobin 8.1(L) 13.2 - 16.6 g/dL 01/11/2024 12:00 PM FLEET MANAGER MKTO Blood (Blood, Venous) 01/11/2024 11:51 AM FLEET MANAGER 01/11/2024 11:57 AM FLEET MANAGER Jeremías Fernandez M.D. LAB BLOOD ADD-ON Final Resul t Performing Organization Address City/[facility]/ZIP Co de Phone Number [facility] [address] [place] [address], [place] [address] * DX Chest Portable 1 View (01/11/2024 6:54 AM FLEET MANAGER) Anatomical Region Laterality Modality Chest, Thoracic RST LOS, Tho racic ARZ LOS, Thoracic FLA LOS N/A Digital Radiography Impressions 01/11/2024 7:51 AM FLEET MANAGER No change since 01/10/2024. Small right pleural effusion with associated atelectasis. The left lung remains clear. No pneumothorax. Normal heart size. Aortic calcifications. Narrative 01/11/2024 7:51 AM FLEET MANAGER EXAM: DX CHEST PORTABLE 1 VIEW Procedure Note Yovany Shrestha M.D. - 01/11/2024 EXAM: DX CHEST PORTABLE 1 VIEW IMPRESSION: No change since 01/10/2024. Small right pleural effusion with associatedatelectasis. The left lung remains clear. No pneumothorax. Normal heartsize. Aortic calcifications. Fidencio Oliva M.D. IMG DIAGNOSTIC IMAGING PROCED URES Final Result * Phosphorus Inorganic (01/11/2024 4:48 AM FLEET MANAGER) Phosphorus (Inorganic), P 3.1 2.5 - 4.5 mg/dL 01/11/2024 5:37 AM FLEET MANAGER MKTO Blood (Blood, Venous) 01/11/2024 4:48 AM FLEET MANAGER 01/11/2024 5:11 AM FLEET MANAGER Jeremías Fernandez M.D. LAB BLOOD ADD-ON Final Resul t Performing Organization Address City/[facility]/ZIP Co de Phone Number [facility] [address] [place] [address] * Magnesium (01/11/2024 4:48 AM FLEET MANAGER) Magnesium, P 1.7 1.7 - 2.3 mg/dL 01/11/2024 5:37 AM FLEET MANAGER MKTO Blood (Blood, Venous) 01/11/2024 4:48 AM FLEET MANAGER 01/11/2024 5:11 AM FLEET MANAGER Jeremías Fernandez M.D. LAB BLOOD ADD-ON Final Resul t [facility] [address] [place] [address] * (ABNORMAL) Basic Metabolic Panel (01/11/2024 4:48 AM FLEET MANAGER) Potassium, P 4.3 3.6 - 5.2 mmol/L 01/11/2024 5:37 AM FLEET MANAGER MKTO Sodium, P 143 135 - 145 mmol/L 01/11/2024 5:37 AM FLEET MANAGER MKTO Chloride, P 110(H) 98 - 107 mmol/L 01/11/2024 5:37 AM FLEET MANAGER MKTO Bicarbonate, P 24 22 - 29 mmol/L 01/11/2024 5:37 AM FLEET MANAGER MK[facility] Anion Gap, P 9 7 - 15 01/11/2024 5:37 AM FLEET MANAGER [facility] BUN (Blood Urea Nitrogen), P 33(H) 8 - 24 mg/dL 01/11/2024 5:37 AM FLEET MANAGER MKTO Creatinine 1.74(H) 0.74 - 1.35 mg/dL 01/11/2024 5:37 AM FLEET MANAGER MKTO Estimated GFR (eGFR) 38(L) >=60 mL/min/BSA 01/11/2024 5:37 AM FLEET MANAGER MKTO Comment: Estimated GFR calculated using the 2020 CKD_EPI creatinine equation. Calcium, Total, P 7.8(L) 8.8 - 10.2 mg/dL 01/11/2024 5:37 AM FLEET MANAGER MKTO Glucose, P 92 70 - 140 mg/dL 01/11/2024 5:37 AM FLEET MANAGER MKTO Blood (Blood, Venous) 01/11/2024 4:48 AM FLEET MANAGER 01/11/2024 5:11 AM FLEET MANAGER us Jeremías Fernandez M.D. LAB BLOOD ADD-ON Final Resul t [facility] [address] [place] [address], [place] [facility] in [place] [address] [place] [id number] * (ABNORMAL) CBC with Differential, Blood (01/11/2024 4:48 AM FLEET MANAGER) Hemoglobin 7.5(L) 13.2 - 16.6 g/dL 01/11/2024 5:14 AM FLEET MANAGER MKTO Hematocrit 24.9(L) 38.3 - 48.6 % 01/11/2024 5:14 AM FLEET MANAGER [facility] Erythrocytes 2.52(L) 4.35 - 5.65 x10(12)/L 01/11/2024 5:14 AM FLEET MANAGER [facility] MCV 98.8(H) 78.2 - 97.9 fL 01/11/2024 5:14 AM FLEET MANAGER MKTO RBC Distrib Width 14.5 11.8 - 14.5 % 01/11/2024 5:14 AM FLEET MANAGER MKTO Platelet Count 243 135 - 317 x10(9)/L 01/11/2024 5:14 AM FLEET MANAGER MKTO Leukocytes 8.8 3.4 - 9.6 x10(9)/L 01/11/2024 5:14 AM FLEET MANAGER [facility] Neutrophils 6.61(H) 1.56 - 6.45 x10(9)/L 01/11/2024 5:14 AM FLEET MANAGER MKTO Lymphocytes 0.97 0.95 - 3.07 x10(9)/L 01/11/2024 5:14 AM FLEET MANAGER MKTO Monocytes 0.98(H) 0.26 - 0.81 x10(9)/L 01/11/2024 5:14 AM FLEET MANAGER MKTO Eosinophils 0.15 0.03 - 0.48 x10(9)/L 01/11/2024 5:14 AM FLEET MANAGER MKTO Basophils 0.07 0.01 - 0.08 x10(9)/L 01/11/2024 5:14 AM FLEET MANAGER MKTO Blood (Blood, Venous) 01/11/2024 4:48 AM FLEET MANAGER 01/11/2024 5:11 AM FLEET MANAGER us Jeremías Fernandez M.D. LAB BLOOD ADD-ON Final Resul t [facility] [address] [place] [address], [facility] [place] [address] * (ABNORMAL) Hepatic Function Panel (01/11/2024 4:48 AM FLEET MANAGER) Bilirubin, Total, P 0.2 0.0 - 1.2 mg/dL 01/11/2024 5:37 AM FLEET MANAGER MKTO Bilirubin, Direct, P 0.1 0.0 - 0.3 mg/dL 01/11/2024 5:37 AM FLEET MANAGER MKTO Aspartate Aminotransferase (AST), P 23 8 - 48 U/L 01/11/2024 5:37 AM FLEET MANAGER MKTO Alanine Aminotransferase (ALT), P 11 7 - 55 U/L 01/11/2024 5:37 AM FLEET MANAGER MKTO Alkaline Phosphatase, P 83 40 - 129 U/L 01/11/2024 5:37 AM FLEET MANAGER MKTO Albumin, P 2.4(L) 3.5 - 5.0 g/dL 01/11/2024 5:37 AM FLEET MANAGER MKTO Protein, Total, P 5.2(L) 6.3 - 7.9 g/dL 01/11/2024 5:37 AM FLEET MANAGER MKTO Blood (Blood, Venous) 01/11/2024 4:48 AM FLEET MANAGER 01/11/2024 5:11 AM FLEET MANAGER us Jeremías Fernandez M.D. LAB BLOOD ADD-ON Final Resul t [facility] [address] [place] [address], [facility] [place] [address] * DX Chest Portable 1 View (01/10/2024 6:50 AM FLEET MANAGER) Anatomical Region Laterality Modality Chest, Thoracic RST LOS, Tho racic ARZ LOS, Thoracic FLA LOS N/A Digital Radiography Impressions 01/10/2024 7:36 AM FLEET MANAGER Compared with 01/09/2024, no substantial change in size of the small right pleural effusion with basilar atelectasis. No appreciable pneumothoraces. The left lung remains well aerated. Normal heart size. Degenerative changes both shoulders. Narrative 01/10/2024 7:36 AM FLEET MANAGER EXAM: DX CHEST PORTABLE 1 VIEW [...] Result * Phosphorus Inorganic (01/10/2024 6:25 AM FLEET MANAGER) Phosphorus (Inorganic), P 2.7 2.5 - 4.5 mg/dL 01/10/2024 7:14 AM FLEET MANAGER MKTO Blood (Blood, Venous) 01/10/2024 6:25 AM FLEET MANAGER 01/10/2024 6:48 AM FLEET MANAGER Jeremías Fernandez M.D. LAB BLOOD ADD-ON Final Resul t Performing Organization Address City/[facility]/ZIP Co de Phone Number [facility] [address] [place] [address] * (ABNORMAL) Magnesium (01/10/2024 6:25 AM FLEET MANAGER) Magnesium, P 1.5(L) 1.7 - 2.3 mg/dL 01/10/2024 7:14 AM FLEET MANAGER MKTO Blood (Blood, Venous) 01/10/2024 6:25 AM FLEET MANAGER 01/10/2024 6:48 AM FLEET MANAGER Jeremías Fernandez M.D. LAB BLOOD ADD-ON Final Resul t Performing Organization Address City/[facility]/ZIP Co de Phone Number [facility] [address] [place] [address] * (ABNORMAL) Basic Metabolic Panel (01/10/2024 6:25 AM FLEET MANAGER) Pathologist [facility] Potassium, P 4.4 3.6 - 5.2 mmol/L 01/10/2024 7:14 AM FLEET MANAGER MKTO Sodium, P 144 135 - 145 mmol/L 01/10/2024 7:14 AM FLEET MANAGER MKTO Chloride, P 111(H) 98 - 107 mmol/L 01/10/2024 7:14 AM FLEET MANAGER MKTO Bicarbonate, P 23 22 - 29 mmol/L 01/10/2024 7:14 AM FLEET MANAGER MKTO Anion Gap, P 10 7 - 15 01/10/2024 7:14 AM FLEET MANAGER MK[facility] BUN (Blood Urea Nitrogen), P 38(H) 8 - 24 mg/dL 01/10/2024 7:14 AM FLEET MANAGER MKTO Creatinine 1.79(H) 0.74 - 1.35 mg/dL 01/10/2024 7:14 AM FLEET MANAGER [facility] Estimated GFR (eGFR) 37(L) >=60 mL/min/BSA 01/10/2024 7:14 AM FLEET MANAGER MKTO Comment: Estimated GFR calculated using the 2020 CKD_EPI creatinine equation. Calcium, Total, P 7.8(L) 8.8 - 10.2 mg/dL 01/10/2024 7:14 AM FLEET MANAGER MKTO Glucose, P 94 70 - 140 mg/dL 01/10/2024 7:14 AM FLEET MANAGER MKTO Blood (Blood, Venous) 01/10/2024 6:25 AM FLEET MANAGER 01/10/2024 6:48 AM FLEET MANAGER us Jeremías Fernandez M.D. LAB BLOOD ADD-ON Final Resul t [facility] [place] [address], [place] [facility] [place] [address] * (ABNORMAL) CBC with Differential, Blood (01/10/2024 6:25 AM FLEET MANAGER) Pathologist [facility] Hemoglobin 8.1(L) 13.2 - 16.6 g/dL 01/10/2024 7:45 AM FLEET MANAGER MKTO Hematocrit 26.3(L) 38.3 - 48.6 % 01/10/2024 7:45 AM FLEET MANAGER [facility] Erythrocytes 2.65(L) 4.35 - 5.65 x10(12)/L 01/10/2024 7:45 AM FLEET MANAGER MKTO MCV 99.2(H) 78.2 - 97.9 fL 01/10/2024 7:45 AM FLEET MANAGER MKTO RBC Distrib Width 14.4 11.8 - 14.5 % 01/10/2024 7:45 AM FLEET MANAGER MKTO Platelet Count 254 135 - 317 x10(9)/L 01/10/2024 7:45 AM FLEET MANAGER MKTO Leukocytes 11.6(H) 3.4 - 9.6 x10(9)/L 01/10/2024 7:45 AM FLEET MANAGER MKTO Neutrophils 9.42(H) 1.56 - 6.45 x10(9)/L 01/10/2024 7:45 AM FLEET MANAGER MKTO Lymphocytes 0.86(L) 0.95 - 3.07 x10(9)/L 01/10/2024 7:45 AM FLEET MANAGER MKTO Monocytes 1.10(H) 0.26 - 0.81 x10(9)/L 01/10/2024 7:45 AM FLEET MANAGER MKTO Eosinophils 0.19 0.03 - 0.48 x10(9)/L 01/10/2024 7:45 AM FLEET MANAGER MKTO Basophils 0.07 0.01 - 0.08 x10(9)/L 01/10/2024 7:45 AM FLEET MANAGER MKTO Blood (Blood, Venous) 01/10/2024 6:25 AM FLEET MANAGER 01/10/2024 6:48 AM FLEET MANAGER us Jeremías Fernandez M.D. LAB BLOOD ADD-ON Final Resul t [facility] [address] [place] [address], [facility] [place] [address] * (ABNORMAL) Hepatic Function Panel (01/10/2024 6:25 AM FLEET MANAGER) Bilirubin, Total, P 0.2 0.0 - 1.2 mg/dL 01/10/2024 7:14 AM FLEET MANAGER MKTO Bilirubin, Direct, P 0.1 0.0 - 0.3 mg/dL 01/10/2024 7:14 AM FLEET MANAGER MKTO Aspartate Aminotransferase (AST), P 25 8 - 48 U/L 01/10/2024 7:14 AM FLEET MANAGER MKTO Alanine Aminotransferase (ALT), P 12 7 - 55 U/L 01/10/2024 7:14 AM FLEET MANAGER MKTO Alkaline Phosphatase, P 93 40 - 129 U/L 01/10/2024 7:14 AM FLEET MANAGER MKTO Albumin, P 2.6(L) 3.5 - 5.0 g/dL 01/10/2024 7:14 AM FLEET MANAGER MKTO Protein, Total, P 5.4(L) 6.3 - 7.9 g/dL 01/10/2024 7:14 AM FLEET MANAGER MKTO Blood (Blood, Venous) 01/10/2024 6:25 AM FLEET MANAGER 01/10/2024 6:48 AM FLEET MANAGER us Jeremías Fernandez M.D. LAB BLOOD ADD-ON Final Resul t [facility] [address] [place] [address], [facility] [place] [address] * DX Chest Portable 1 View (01/09/2024 6:50 AM FLEET MANAGER) Anatomical Region Laterality Modality Chest, Thoracic RST LOS, Tho racic ARZ LOS, Thoracic FLA LOS N/A Digital Radiography Impressions 01/09/2024 8:37 AM FLEET MANAGER Since 01/08/2024, the right IJ CVC has [...] rotator cuff arthropathy Narrative 01/09/2024 8:37 AM FLEET MANAGER EXAM: DX CHEST PORTABLE 1 VIEW [...] * (ABNORMAL) Morphology Evaluation (01/09/2024 6:42 AM FLEET MANAGER) Pathologist [facility] RBC Morphology See Specific Findings 01/09/2024 8:09 AM FLEET MANAGER MKTO PLT Morphology Normal 01/09/2024 8:09 AM FLEET MANAGER MKTO PLT Estimate Adequate Adequate 01/09/2024 8:09 AM FLEET MANAGER MKTO Anisocytosis Slight(A) 01/09/2024 8:09 AM FLEET MANAGER MKTO Basophilic Stippling Slight(A) 01/09/2024 8:09 AM FLEET MANAGER MKTO Elliptocytes Slight(A) Not Seen 01/09/2024 8:09 AM FLEET MANAGER MKTO Poikilocytosis Slight(A) Not Seen 01/09/2024 8:09 AM FLEET MANAGER MKTO Blood 01/09/2024 6:42 AM FLEET MANAGER 01/09/2024 7:05 AM FLEET MANAGER us Jeremías Fernandez M.D. LAB BLOOD ADD-ON Final Resul t [facility] [address] [place] [address], [facility] [place] [address] [place] [address] * (ABNORMAL) Manual Differential, Blood (01/09/2024 6:42 AM FLEET MANAGER) Pathologist [facility] Segmented Neutrophils 87(H) 50 - 75 % 01/09/2024 8:09 AM FLEET MANAGER MKTO Lymphocytes % 8(L) 18 - 42 % 01/09/2024 8:09 AM FLEET MANAGER MKTO Monocytes 1(L) 2 - 11 % 01/09/2024 8:09 AM FLEET MANAGER MKTO Eosinophils 1 1 - 3 % 01/09/2024 8:09 AM FLEET MANAGER MKTO Metamyelocytes 1(H) <1 % 01/09/2024 8:09 AM FLEET MANAGER MKTO Myelocytes 2(H) <0.5 % 01/09/2024 8:09 AM FLEET MANAGER MKTO Manual Absolute Neutrophil Count 10.27(H) 1.56 - 6.45 x10(9)/L 01/09/2024 8:09 AM FLEET MANAGER MKTO Comment: ----ADDITIONAL INFORMATION---- The manual absolute neutrophil count is derived from a manual differential count and therefore is not exactly comparable to the automated absolute neutrophil count. Blood 01/09/2024 6:42 AM FLEET MANAGER 01/09/2024 7:05 AM FLEET MANAGER Jeremías Fernandez M.D. LAB BLOOD ADD-ON Final Resul t Performing Organization Address City/[facility]/ZIP Co de Phone Number [facility] [address] [place] [address] * Phosphorus Inorganic (01/09/2024 6:42 AM FLEET MANAGER) Phosphorus (Inorganic), P 2.8 2.5 - 4.5 mg/dL 01/09/2024 7:49 AM FLEET MANAGER MKTO Blood (Blood, Venous) 01/09/2024 6:42 AM FLEET MANAGER 01/09/2024 7:24 AM FLEET MANAGER Jeremías Fernandez M.D. LAB BLOOD ADD-ON Final Resul t Performing Organization Address City/[facility] Co de Phone Number [facility] [address] [place] [address], [address] [address] * Magnesium (01/09/2024 6:42 AM FLEET MANAGER) Magnesium, P 1.7 1.7 - 2.3 mg/dL 01/09/2024 7:49 AM FLEET MANAGER MKTO Blood (Blood, Venous) 01/09/2024 6:42 AM FLEET MANAGER 01/09/2024 7:24 AM FLEET MANAGER us Jeremías Fernandez M.D. LAB BLOOD ADD-ON Final Resul t [facility] [address] [place] [address], [place] [facility] [place] [address] * (ABNORMAL) Basic Metabolic Panel (01/09/2024 6:42 AM FLEET MANAGER) Potassium, P 4.5 3.6 - 5.2 mmol/L 01/09/2024 7:49 AM FLEET MANAGER MKTO Sodium, P 141 135 - 145 mmol/L 01/09/2024 7:49 AM FLEET MANAGER MKTO Chloride, P 108(H) 98 - 107 mmol/L 01/09/2024 7:49 AM FLEET MANAGER MKTO Bicarbonate, P 23 22 - 29 mmol/L 01/09/2024 7:49 AM FLEET MANAGER MKTO Anion Gap, P 10 7 - 15 01/09/2024 7:49 AM FLEET MANAGER MKTO BUN (Blood Urea Nitrogen), P 41(H) 8 - 24 mg/dL 01/09/2024 7:49 AM FLEET MANAGER MKTO Creatinine 1.95(H) 0.74 - 1.35 mg/dL 01/09/2024 7:49 AM FLEET MANAGER MKTO Estimated GFR (eGFR) 33(L) >=60 mL/min/BSA 01/09/2024 7:49 AM FLEET MANAGER MKTO Comment: Estimated GFR calculated using the 2020 CKD_EPI creatinine equation. Calcium, Total, P 8.0(L) 8.8 - 10.2 mg/dL 01/09/2024 7:49 AM FLEET MANAGER MKTO Glucose, P 88 70 - 140 mg/dL 01/09/2024 7:49 AM FLEET MANAGER MKTO Blood (Blood, Venous) 01/09/2024 6:42 AM FLEET MANAGER 01/09/2024 7:24 AM FLEET MANAGER us Jeremías Fernandez M.D. LAB BLOOD ADD-ON Final Resul t Performing Organization Address City/[facility] Co de Phone Number [facility] [address] [place] [address], [place] [facility] in [address] [address] * (ABNORMAL) CBC with Differential, Blood (01/09/2024 6:42 AM FLEET MANAGER) Hemoglobin 8.3(L) 13.2 - 16.6 g/dL 01/09/2024 8:08 AM FLEET MANAGER MKTO Hematocrit 26.7(L) 38.3 - 48.6 % 01/09/2024 8:08 AM FLEET MANAGER MKTO Erythrocytes 2.74(L) 4.35 - 5.65 x10(12)/ L 01/09/2024 8:08 AM FLEET MANAGER MKTO MCV 97.4 78.2 - 97.9 fL 01/09/2024 8:08 AM FLEET MANAGER MKTO RBC Distrib Width 14.6(H) 11.8 - 14.5 % 01/09/2024 8:08 AM FLEET MANAGER MKTO Platelet Count 245 135 - 317 x10(9)/L 01/09/2024 8:08 AM FLEET MANAGER MKTO Leukocytes 11.8(H) 3.4 - 9.6 x10(9)/L 01/09/2024 8:08 AM FLEET MANAGER MKTO Neutrophils See manual differential 1.56 - 6.45 x10(9)/L 01/09/2024 8:08 AM FLEET MANAGER MKTO Blood (Blood, Venous) 01/09/2024 6:42 AM FLEET MANAGER 01/09/2024 7:05 AM FLEET MANAGER us Jeremías Fernandez M.D. LAB BLOOD ADD-ON Final Resul t Performing Organization Address City/[facility]/ZIP Co de Phone Number [facility] [address] [place] [phone], [address] [address] * (ABNORMAL) Hepatic Function Panel (01/09/2024 6:42 AM FLEET MANAGER) Bilirubin, Total, P 0.2 0.0 - 1.2 mg/dL 01/09/2024 7:49 AM FLEET MANAGER MKTO Bilirubin, Direct, P 0.1 0.0 - 0.3 mg/dL 01/09/2024 7:49 AM FLEET MANAGER MKTO Aspartate Aminotransferase (AST), P 24 8 - 48 U/L 01/09/2024 7:49 AM FLEET MANAGER MKTO Alanine Aminotransferase (ALT), P 11 7 - 55 U/L 01/09/2024 7:49 AM FLEET MANAGER MKTO Alkaline Phosphatase, P 98 40 - 129 U/L 01/09/2024 7:49 AM FLEET MANAGER MKTO Albumin, P 2.5(L) 3.5 - 5.0 g/dL 01/09/2024 7:49 AM FLEET MANAGER MKTO Protein, Total, P 5.5(L) 6.3 - 7.9 g/dL 01/09/2024 7:49 AM FLEET MANAGER MKTO Blood (Blood, Venous) 01/09/2024 6:42 AM FLEET MANAGER 01/09/2024 7:24 AM FLEET MANAGER us Jeremías Fernandez M.D. LAB BLOOD ADD-ON Final Resul t [facility] [address] [place] [address], [address] [address] * CT Chest without IV Contrast (01/08/2024 1:11 PM FLEET MANAGER) Anatomical Region Laterality Modality Chest, Thoracic RST LOS, Tho racic ARZ LOS, Thoracic FLA LOS N/A Computed Tomography Impressions 01/08/2024 2:48 PM FLEET MANAGER 1. Loculated right pleural collection with adjacent consolidation or atelectasis in the right lower lobe. 2. Right chest tube pigtail is positioned at the interface of the pleural space with the adjacent chest wall. Correlation with chest tube function recommended. 3. No fluid collection within the chest wall. Small right chest wall emphysema. Narrative 01/08/2024 2:48 PM FLEET MANAGER EXAM: CT CHEST WITHOUT IV CONTRAST [...] DX Chest 1 View (01/08/2024 7:16 AM FLEET MANAGER) Anatomical Region Laterality Modality Chest, Thoracic RST LOS, Tho racic ARZ LOS, Thoracic FLA LOS N/A Digital Radiography Impressions 01/08/2024 7:44 AM FLEET MANAGER Interval retraction of the right pleural catheter. The pigtail projects over the lateral chest wall soft tissues and requires correlation with positioning and catheter output. Persisting right pleural effusion/pleural thickening and right basilar airspace opacity. Narrative 01/08/2024 7:44 AM FLEET MANAGER EXAM: DX CHEST 1 VIEW COMPARISON: [...] * (ABNORMAL) Morphology Evaluation (01/08/2024 4:47 AM FLEET MANAGER) RBC Morphology See Specific Findings 01/08/2024 6:16 AM FLEET MANAGER MKTO PLT Morphology Normal 01/08/2024 6:16 AM FLEET MANAGER MKTO PLT Estimate Adequate Adequate 01/08/2024 6:16 AM FLEET MANAGER MKTO Anisocytosis Slight(A) 01/08/2024 6:16 AM FLEET MANAGER MKTO Bite Cells Slight(A) Not Seen 01/08/2024 6:16 AM FLEET MANAGER MKTO Basophilic Stippling Slight(A) 01/08/2024 6:16 AM FLEET MANAGER MKTO Elliptocytes Slight(A) Not Seen 01/08/2024 6:16 AM FLEET MANAGER MKTO Poikilocytosis Slight(A) Not Seen 01/08/2024 6:16 AM FLEET MANAGER MKTO Blood 01/08/2024 4:47 AM FLEET MANAGER 01/08/2024 4:51 AM FLEET MANAGER us Jeremías Fernandez M.D. LAB BLOOD ADD-ON Final Resul t Performing Organization Address City/[facility] Co de Phone Number [facility] [address] [place] [phone], [address] [address] * (ABNORMAL) Manual Differential, Blood (01/08/2024 4:47 AM FLEET MANAGER) Segmented Neutrophils 84(H) 50 - 75 % 01/08/2024 6:16 AM FLEET MANAGER MKTO Lymphocytes % 5(L) 18 - 42 % 01/08/2024 6:16 AM FLEET MANAGER MKTO Monocytes 8 2 - 11 % 01/08/2024 6:16 AM FLEET MANAGER MKTO Eosinophils 1 1 - 3 % 01/08/2024 6:16 AM FLEET MANAGER MKTO Metamyelocytes 2(H) <1 % 01/08/2024 6:16 AM FLEET MANAGER MKTO Manual Absolute Neutrophil Count 12.60(H) 1.56 - 6.45 x10(9)/L 01/08/2024 6:16 AM FLEET MANAGER MKTO Comment: ----ADDITIONAL INFORMATION---- The manual absolute neutrophil count is derived from a manual differential count and therefore is not exactly comparable to the automated absolute neutrophil count. Blood 01/08/2024 4:47 AM FLEET MANAGER 01/08/2024 4:51 AM FLEET MANAGER us Jeremías Fernandez M.D. LAB BLOOD ADD-ON Final Resul t Performing Organization Address City/[facility]/ZIP Co de Phone Number [facility] [address] [place] [address], [address] [address] * (ABNORMAL) Phosphorus Inorganic (01/08/2024 4:47 AM FLEET MANAGER) Phosphorus (Inorganic), P 2.1(L) 2.5 - 4.5 mg/dL 01/08/2024 5:20 AM FLEET MANAGER MKTO Blood (Blood, Venous) 01/08/2024 4:47 AM FLEET MANAGER 01/08/2024 4:51 AM FLEET MANAGER us Jeremías Fernandez M.D. LAB BLOOD ADD-ON Final Resul t Performing Organization Address City/[facility]/ZIP Co de Phone Number [facility] [address] [place] [address], [place] [address] * (ABNORMAL) Magnesium (01/08/2024 4:47 AM FLEET MANAGER) Magnesium, P 1.6(L) 1.7 - 2.3 mg/dL 01/08/2024 5:20 AM FLEET MANAGER MKTO Blood (Blood, Venous) 01/08/2024 4:47 AM FLEET MANAGER 01/08/2024 4:51 AM FLEET MANAGER Jeremías Fernandez M.D. LAB BLOOD ADD-ON Final Resul t Performing Organization Address City/[facility] Co de Phone Number [facility] [address] [place] [phone], [place] [address] * (ABNORMAL) Basic Metabolic Panel (01/08/2024 4:47 AM FLEET MANAGER) Potassium, P 4.3 3.6 - 5.2 mmol/L 01/08/2024 5:20 AM FLEET MANAGER MKTO Sodium, P 140 135 - 145 mmol/L 01/08/2024 5:20 AM FLEET MANAGER MKTO Chloride, P 107 98 - 107 mmol/L 01/08/2024 5:20 AM FLEET MANAGER MKTO Bicarbonate, P 23 22 - 29 mmol/L 01/08/2024 5:20 AM FLEET MANAGER MKTO Anion Gap, P 10 7 - 15 01/08/2024 5:20 AM FLEET MANAGER MKTO BUN (Blood Urea Nitrogen), P 41(H) 8 - 24 mg/dL 01/08/2024 5:20 AM FLEET MANAGER MKTO Creatinine 1.98(H) 0.74 - 1.35 mg/dL 01/08/2024 5:20 AM FLEET MANAGER MKTO Estimated GFR (eGFR) 32(L) >=60 mL/min/BSA 01/08/2024 5:20 AM FLEET MANAGER MKTO Comment: Estimated GFR calculated using the 2020 CKD_EPI creatinine equation. Calcium, Total, P 8.1(L) 8.8 - 10.2 mg/dL 01/08/2024 5:20 AM FLEET MANAGER MKTO Glucose, P 101 70 - 140 mg/dL 01/08/2024 5:20 AM FLEET MANAGER MKTO Blood (Blood, Venous) 01/08/2024 4:47 AM FLEET MANAGER 01/08/2024 4:51 AM FLEET MANAGER us Jeremías Fernandez M.D. LAB BLOOD ADD-ON Final Resul t [facility] [address] [place] [address], [place] MK[facility] [place] [address] * (ABNORMAL) CBC with Differential, Blood (01/08/2024 4:47 AM FLEET MANAGER) Hemoglobin 8.7(L) 13.2 - 16.6 g/dL 01/08/2024 6:16 AM FLEET MANAGER MKTO Hematocrit 28.0(L) 38.3 - 48.6 % 01/08/2024 6:16 AM FLEET MANAGER MKTO Erythrocytes 2.91(L) 4.35 - 5.65 x10(12)/ L 01/08/2024 6:16 AM FLEET MANAGER MKTO MCV 96.2 78.2 - 97.9 fL 01/08/2024 6:16 AM FLEET MANAGER MKTO RBC Distrib Width 14.6(H) 11.8 - 14.5 % 01/08/2024 6:16 AM FLEET MANAGER MKTO Platelet Count 248 135 - 317 x10(9)/L 01/08/2024 6:16 AM FLEET MANAGER MKTO Leukocytes 15.0(H) 3.4 - 9.6 x10(9)/L 01/08/2024 6:16 AM FLEET MANAGER MKTO Neutrophils See manual differential 1.56 - 6.45 x10(9)/L 01/08/2024 6:16 AM FLEET MANAGER MKTO Blood (Blood, Venous) 01/08/2024 4:47 AM FLEET MANAGER 01/08/2024 4:51 AM FLEET MANAGER Jeremías Fernandez M.D. LAB BLOOD ADD-ON Final Resul t Performing Organization Address [facility] Co de Phone Number [facility] [address] [place] [address] * (ABNORMAL) Hepatic Function Panel (01/08/2024 4:47 AM FLEET MANAGER) Bilirubin, Total, P 0.2 0.0 - 1.2 mg/dL 01/08/2024 5:20 AM FLEET MANAGER MKTO Bilirubin, Direct, P 0.1 0.0 - 0.3 mg/dL 01/08/2024 5:20 AM FLEET MANAGER MKTO Aspartate Aminotransferase (AST), P 26 8 - 48 U/L 01/08/2024 5:20 AM FLEET MANAGER MKTO Alanine Aminotransferase (ALT), P 12 7 - 55 U/L 01/08/2024 5:20 AM FLEET MANAGER MKTO Alkaline Phosphatase, P 105 40 - 129 U/L 01/08/2024 5:20 AM FLEET MANAGER MKTO Albumin, P 2.5(L) 3.5 - 5.0 g/dL 01/08/2024 5:20 AM FLEET MANAGER MKTO Protein, Total, P 5.7(L) 6.3 - 7.9 g/dL 01/08/2024 5:20 AM FLEET MANAGER MKTO Blood (Blood, Venous) 01/08/2024 4:47 AM FLEET MANAGER 01/08/2024 4:51 AM FLEET MANAGER us Jeremías Fernandez M.D. LAB BLOOD ADD-ON Final Resul t Performing Organization Address City/[facility]/ZIP Co de Phone Number [facility] [address] [place] [address], [place] [address] * (ABNORMAL) Hemoglobin (01/07/2024 3:50 PM FLEET MANAGER) Hemoglobin 9.1(L) 13.2 - 16.6 g/dL 01/07/2024 3:59 PM FLEET MANAGER MKTO Blood (Blood, Venous) 01/07/2024 3:50 PM FLEET MANAGER 01/07/2024 3:55 PM FLEET MANAGER us Chapito Velazquez D.O. LAB BLOOD ADD-ON Final Resul t [facility] [address] [place] [address], [place] MK[facility] [place] [address] [place] [address] * DX Chest 1 View (01/07/2024 7:14 AM FLEET MANAGER) Anatomical Region Laterality Modality Chest, Thoracic RST LOS, Tho racic ARZ LOS, Thoracic FLA LOS N/A Digital Radiography Impressions 01/07/2024 7:42 AM FLEET MANAGER No significant change. Narrative 01/07/2024 7:42 AM FLEET MANAGER EXAM: DX CHEST 1 VIEW COMPARISON: Chest [...] * (ABNORMAL) Morphology Evaluation (01/07/2024 5:29 AM FLEET MANAGER) RBC Morphology See Specific Findings 01/07/2024 6:24 AM FLEET MANAGER MKTO PLT Morphology Normal 01/07/2024 6:24 AM FLEET MANAGER MKTO PLT Estimate Adequate Adequate 01/07/2024 6:24 AM FLEET MANAGER MKTO Anisocytosis Slight(A) 01/07/2024 6:24 AM FLEET MANAGER MKTO Basophilic Stippling Slight(A) 01/07/2024 6:24 AM FLEET MANAGER MKTO Poikilocytosis Slight(A) Not Seen 01/07/2024 6:24 AM FLEET MANAGER MKTO Blood 01/07/2024 5:29 AM FLEET MANAGER 01/07/2024 5:51 AM FLEET MANAGER Jeremías Fernandez M.D. LAB BLOOD ADD-ON Final Resul t [facility] [address] [place] [address], [place] MK[facility] [place] [address] * Phosphorus Inorganic (01/07/2024 5:29 AM FLEET MANAGER) Phosphorus (Inorganic), P 2.5 2.5 - 4.5 mg/dL 01/07/2024 6:19 AM FLEET MANAGER MKTO Blood (Blood, Venous) 01/07/2024 5:29 AM FLEET MANAGER 01/07/2024 5:51 AM FLEET MANAGER us Jeremías Fernandez M.D. LAB BLOOD ADD-ON Final Resul t [facility] [address] [place] [address], [place] [address] * Magnesium (01/07/2024 5:29 AM FLEET MANAGER) Magnesium, P 1.7 1.7 - 2.3 mg/dL 01/07/2024 6:19 AM FLEET MANAGER MKTO Blood (Blood, Venous) 01/07/2024 5:29 AM FLEET MANAGER 01/07/2024 5:51 AM FLEET MANAGER us Jeremías Fernandez M.D. LAB BLOOD ADD-ON Final Resul t Performing Organization Address City/[facility] Co de Phone Number [facility] [address] [place] [phone], [place] [address] * (ABNORMAL) Basic Metabolic Panel (01/07/2024 5:29 AM FLEET MANAGER) Potassium, P 3.3(L) 3.6 - 5.2 mmol/L 01/07/2024 6:19 AM FLEET MANAGER MKTO Sodium, P 141 135 - 145 mmol/L 01/07/2024 6:19 AM FLEET MANAGER MKTO Chloride, P 105 98 - 107 mmol/L 01/07/2024 6:19 AM FLEET MANAGER MKTO Bicarbonate, P 24 22 - 29 mmol/L 01/07/2024 6:19 AM FLEET MANAGER MKTO Anion Gap, P 12 7 - 15 01/07/2024 6:19 AM FLEET MANAGER MKTO BUN (Blood Urea Nitrogen), P 41(H) 8 - 24 mg/dL 01/07/2024 6:19 AM FLEET MANAGER MKTO Creatinine 2.01(H) 0.74 - 1.35 mg/dL 01/07/2024 6:19 AM FLEET MANAGER MKTO Estimated GFR (eGFR) 32(L) >=60 mL/min/BSA 01/07/2024 6:19 AM FLEET MANAGER MKTO Comment: Estimated GFR calculated using the 2020 CKD_EPI creatinine equation. Calcium, Total, P 8.1(L) 8.8 - 10.2 mg/dL 01/07/2024 6:19 AM FLEET MANAGER MKTO Glucose, P 108 70 - 140 mg/dL 01/07/2024 6:19 AM FLEET MANAGER MKTO Blood (Blood, Venous) 01/07/2024 5:29 AM FLEET MANAGER 01/07/2024 5:51 AM FLEET MANAGER us Jeremías Fernandez M.D. LAB BLOOD ADD-ON Final Resul t [facility] [address] [place] [address], [place] [facility] [place] [address] * (ABNORMAL) CBC with Differential, Blood (01/07/2024 5:29 AM FLEET MANAGER) Hemoglobin 8.7(L) 13.2 - 16.6 g/dL 01/07/2024 6:23 AM FLEET MANAGER MKTO Hematocrit 26.8(L) 38.3 - 48.6 % 01/07/2024 6:23 AM FLEET MANAGER MKTO Erythrocytes 2.84(L) 4.35 - 5.65 x10(12)/L 01/07/2024 6:23 AM FLEET MANAGER MKTO MCV 94.4 78.2 - 97.9 fL 01/07/2024 6:23 AM FLEET MANAGER MKTO RBC Distrib Width 14.7(H) 11.8 - 14.5 % 01/07/2024 6:23 AM FLEET MANAGER MKTO Platelet Count 263 135 - 317 x10(9)/L 01/07/2024 6:23 AM FLEET MANAGER MKTO Leukocytes 14.9(H) 3.4 - 9.6 x10(9)/L 01/07/2024 6:23 AM FLEET MANAGER MKTO Neutrophils 12.77(H) 1.56 - 6.45 x10(9)/L 01/07/2024 6:23 AM FLEET MANAGER MKTO Lymphocytes 0.90(L) 0.95 - 3.07 x10(9)/L 01/07/2024 6:23 AM FLEET MANAGER MKTO Monocytes 0.87(H) 0.26 - 0.81 x10(9)/L 01/07/2024 6:23 AM FLEET MANAGER MKTO Eosinophils 0.23 0.03 - 0.48 x10(9)/L 01/07/2024 6:23 AM FLEET MANAGER MKTO Basophils 0.09(H) 0.01 - 0.08 x10(9)/L 01/07/2024 6:23 AM FLEET MANAGER MKTO Blood (Blood, Venous) 01/07/2024 5:29 AM FLEET MANAGER 01/07/2024 5:51 AM FLEET MANAGER us Jeremías Fernandez M.D. LAB BLOOD ADD-ON [place] [address], [place] MK[facility] [place] [address] * (ABNORMAL) Hepatic Function Panel (01/07/2024 5:29 AM FLEET MANAGER) Bilirubin, Total, P <0.2 0.0 - 1.2 mg/dL 01/07/2024 6:19 AM FLEET MANAGER MKTO Bilirubin, Direct, P 0.1 0.0 - 0.3 mg/dL 01/07/2024 6:19 AM FLEET MANAGER MKTO Aspartate Aminotransferase (AST), P 25 8 - 48 U/L 01/07/2024 6:19 AM FLEET MANAGER MKTO Alanine Aminotransferase (ALT), P 15 7 - 55 U/L 01/07/2024 6:19 AM FLEET MANAGER MKTO Alkaline Phosphatase, P 110 40 - 129 U/L 01/07/2024 6:19 AM FLEET MANAGER MKTO Albumin, P 2.5(L) 3.5 - 5.0 g/dL 01/07/2024 6:19 AM FLEET MANAGER MKTO Protein, Total, P 5.2(L) 6.3 - 7.9 g/dL 01/07/2024 6:19 AM FLEET MANAGER MKTO Blood (Blood, Venous) 01/07/2024 5:29 AM FLEET MANAGER 01/07/2024 5:51 AM FLEET MANAGER us Jeremías Fernandez M.D. LAB BLOOD ADD-ON Final Resul t [facility] [address] [place] [address], [place] MK[place] [facility] [place] [address] [place] [address] * Tropheryma whipplei PCR, Blood (01/06/2024 11:36 AM FLEET MANAGER) Specimen Source BLOOD 12:26 PM FLEET MANAGER DTL Tropheryma whipplei PCR, B, Result Negative Not Applicable 01/08/2024 12:26 PM FLEET MANAGER DTL Comment: ----ADDITIONAL INFORMATION---- This test was developed and its performance characteristics determined by [facility] in a manner consistent with CLIA requirements. This test has not been cleared or approved by the U.S. Food and Drug Administration. Blood (Blood, Venous) 01/06/2024 11:36 AM FLEET MANAGER 01/07/2024 8:06 AM FLEET MANAGER Sarah Rose M.D. LAB MICROBIOLOG Y - BLOOD ORDERABLES Final Result Performing Organization Address [facility] Co de Phone Number [facility] [address] [place] [address], [place] DTL [address] [facility] [address] [place] [address] * [id number] [facility] Test for Pathogen Detection - Miscellaneous Test (01/06/2024 11:36 AM FLEET MANAGER) Test Name [facility] Test for Pathogen Detection 01/06/2024 11:49 AM FLEET MANAGER MKTO Result Specimen sent out; results to follow DEFAULT 01/06/2024 11:49 AM FLEET MANAGER MKTO Blood (Blood, Venous) 01/06/2024 11:36 AM FLEET MANAGER 01/06/2024 11:49 AM FLEET MANAGER Sarah Rose M.D. LAB [facility] ORDERLisseth CATReuben Final Result [facility] [address] [place] [address], [place] MKTO [facility] [place] [address] [place] [address] * [facility] Sent Out Lab (01/06/2024 10:59 AM FLEET MANAGER) Test Name [facility] Test for Pathogen Detection 01/06/2024 11:49 AM FLEET MANAGER CYDNEY Result SEE COMMENT 01/11/2024 9:44 AM FLEET MANAGER CYDNEY Comment: For final report, select Lab-Send Out Lab Results hyperlink below. 01/06/2024 10:5 9 AM FLEET MANAGER 01/07/2024 8:53 AM FLEET MANAGER Sarah Rose M.D. LAB [facility] NUNU ARMSTRONG Final Result [facility] [address] [place] [address], [place] CYDNEY [facility] [address] [place] [id number] * DX Chest 1 View (01/06/2024 7:19 AM FLEET MANAGER) Anatomical Region Laterality Modality Chest, Thoracic RST LOS, Tho racic ARZ LOS, Thoracic FLA LOS N/A Digital Radiography Impressions 01/06/2024 7:32 AM FLEET MANAGER Since 01/02/2024, placement of a right pleural pigtail catheter. Slight decrease in size of the small right pleural effusion. Bibasilar consolidation likely represents compressive atelectasis in the setting of effusion. No pneumothorax. The left lung is relatively well aerated. Normal heart size. Aortic calcifications. Right IJ CVC with tip in the mid SVC. Narrative 01/06/2024 7:32 AM FLEET MANAGER EXAM: DX CHEST 1 VIEW Procedure Note [...] * (ABNORMAL) Morphology Evaluation (01/06/2024 5:37 AM FLEET MANAGER) RBC Morphology See Specific Findings 01/06/2024 6:34 AM FLEET MANAGER MKTO PLT Morphology Normal 01/06/2024 6:34 AM FLEET MANAGER MKTO PLT Estimate Adequate Adequate 01/06/2024 6:34 AM FLEET MANAGER MKTO Basophilic Stippling Slight(A) 01/06/2024 6:34 AM FLEET MANAGER MKTO Poikilocytosis Slight(A) Not Seen 01/06/2024 6:34 AM FLEET MANAGER MKTO Blood 01/06/2024 5:37 AM FLEET MANAGER 01/06/2024 5:47 AM FLEET MANAGER Vidhya Tovar P.A.-C. LAB BLOOD ADD-ON Final Resu lt [facility] [address] [place] [address], [place] MK[facility] [place] [address] * (ABNORMAL) Manual Differential, Blood (01/06/2024 5:37 AM FLEET MANAGER) Segmented Neutrophils 87(H) 50 - 75 % 01/06/2024 6:34 AM FLEET MANAGER MKTO Lymphocytes % 1(L) 18 - 42 % 01/06/2024 6:34 AM FLEET MANAGER MKTO Monocytes 5 2 - 11 % 01/06/2024 6:34 AM FLEET MANAGER MKTO Eosinophils 3 1 - 3 % 01/06/2024 6:34 AM FLEET MANAGER MKTO Basophils 1 0 - 2 % 01/06/2024 6:34 AM FLEET MANAGER MKTO Metamyelocytes 1(H) <1 % 01/06/2024 6:34 AM FLEET MANAGER MKTO Myelocytes 2(H) <0.5 % 01/06/2024 6:34 AM FLEET MANAGER MKTO Manual Absolute Neutrophil Count 12.44(H) 1.56 - 6.45 x10(9)/L 01/06/2024 6:34 AM FLEET MANAGER MKTO Comment: ----ADDITIONAL INFORMATION---- The manual absolute neutrophil count is derived from a manual differential count and therefore is not exactly comparable to the automated absolute neutrophil count. Blood 01/06/2024 5:37 AM FLEET MANAGER 01/06/2024 5:47 AM FLEET MANAGER Vidhya Tovar P.A.-C. LAB BLOOD ADD-ON Final Resu lt [facility] [address] [place] [address], [place] [address] * (ABNORMAL) Magnesium (01/06/2024 5:37 AM FLEET MANAGER) Pathologist [facility] Magnesium, P 1.5(L) 1.7 - 2.3 mg/dL 01/06/2024 6:11 AM FLEET MANAGER MKTO Blood (Blood, Venous) 01/06/2024 5:37 AM FLEET MANAGER 01/06/2024 5:47 AM FLEET MANAGER Vidhya Tovar P.A.-C. LAB BLOOD ADD-ON Final Resu lt [facility] [address] [place] [address], [place] [address] * (ABNORMAL) CBC with Differential, Blood (01/06/2024 5:37 AM FLEET MANAGER) Hemoglobin 9.2(L) 13.2 - 16.6 g/dL 01/06/2024 6:33 AM FLEET MANAGER MKTO Hematocrit 28.9(L) 38.3 - 48.6 % 01/06/2024 6:33 AM FLEET MANAGER MKTO Erythrocytes 3.07(L) 4.35 - 5.65 x10(12)/ L 01/06/2024 6:33 AM FLEET MANAGER MKTO MCV 94.1 78.2 - 97.9 fL 01/06/2024 6:33 AM FLEET MANAGER MKTO RBC Distrib Width 15.0(H) 11.8 - 14.5 % 01/06/2024 6:33 AM FLEET MANAGER MKTO Platelet Count 285 135 - 317 x10(9)/L 01/06/2024 6:33 AM FLEET MANAGER MKTO Leukocytes 14.3(H) 3.4 - 9.6 x10(9)/L 01/06/2024 6:33 AM FLEET MANAGER MKTO Neutrophils See manual differential 1.56 - 6.45 x10(9)/L 01/06/2024 6:33 AM FLEET MANAGER MKTO Blood (Blood, Venous) 01/06/2024 5:37 AM FLEET MANAGER 01/06/2024 5:47 AM FLEET MANAGER us Vidhya Tovar P.A.-C. LAB BLOOD ADD-ON Final Resu lt [facility] [address] [place] [address], [facility] [place] [address] * (ABNORMAL) Renal Function Panel (01/06/2024 5:37 AM FLEET MANAGER) Potassium, P 3.3(L) 3.6 - 5.2 mmol/L 01/06/2024 6:11 AM FLEET MANAGER MKTO Sodium, P 142 135 - 145 mmol/L 01/06/2024 6:11 AM FLEET MANAGER MKTO Chloride, P 104 98 - 107 mmol/L 01/06/2024 6:11 AM FLEET MANAGER MKTO Bicarbonate, P 25 22 - 29 mmol/L 01/06/2024 6:11 AM FLEET MANAGER MKTO Anion Gap, P 13 7 - 15 01/06/2024 6:11 AM FLEET MANAGER MKTO BUN (Blood Urea Nitrogen), P 37(H) 8 - 24 mg/dL 01/06/2024 6:11 AM FLEET MANAGER MKTO Creatinine 1.91(H) 0.74 - 1.35 mg/dL 01/06/2024 6:11 AM FLEET MANAGER MKTO Estimated GFR (eGFR) 34(L) >=60 mL/min/BSA 01/06/2024 6:11 AM FLEET MANAGER MKTO Comment: Estimated GFR calculated using the 2020 CKD_EPI creatinine equation. Calcium, Total, P 8.4(L) 8.8 - 10.2 mg/dL 01/06/2024 6:11 AM FLEET MANAGER MKTO Glucose, P 92 70 - 140 mg/dL 01/06/2024 6:11 AM FLEET MANAGER MKTO Albumin, P 2.7(L) 3.5 - 5.0 g/dL 01/06/2024 6:11 AM FLEET MANAGER MKTO Phosphorus (Inorganic), P 2.7 2.5 - 4.5 mg/dL 01/06/2024 6:11 AM FLEET MANAGER MKTO Blood (Blood, Venous) 01/06/2024 5:37 AM FLEET MANAGER 01/06/2024 5:47 AM FLEET MANAGER us Vidhya Tovar P.A.-C. LAB BLOOD ADD-ON Final Resu lt [facility] [address] [place] [address], [place] MKTO [facility] [place] [address] * ECG 12 Lead (01/06/2024 5:32 AM FLEET MANAGER) Ventricular Rate ECG/Min 98 BPM MUSE MT Interval 164 ms MUSE QRSD Interval 128 ms MUSE QT Interval 398 ms MUSE QTC Interval 508 ms MUSE P [place] 52 degrees MUSE R [place] -72 degrees MUSE T Wave [place] 53 degrees MUSE 01/06/2024 5:32 AM FLEET MANAGER 01/06/2024 5:40 AM FLEET MANAGER Impressions MUSE - 01/06/2024 5:40 AM FLEET MANAGER Normal sinus rhythm Right bundle branch [...] by GABRIELA Roa us Laura Chavez APRN, C.N.PEliel ECG ORDERABLES Sury kaye Result MUSE NA * IR Chest Tube Placement (01/05/2024 1:42 PM FLEET MANAGER) Anatomical Region Laterality Modality Chest, Vascular Intervention al RST LOS, Vascular Interventional ARZ LOS, Vascular Interventional FLA LOS N/A X-Ray Angiography Impressions 01/05/2024 2:17 PM FLEET MANAGER 1. Right chest tube placement. Narrative 01/05/2024 2:17 PM FLEET MANAGER EXAM: IR CHEST TUBE PLACEMENT HISTORY: [...] Patient education provided by a care steam service inspector. Patient was ready to learn with no apparent learning barriers were identified. Post-procedure care explained; patient expressed understanding of the content. PROCEDURE DETAILS: Sedation: None. Local anesthesia was achieved with lidocaine. Sedation time: None Estimated Blood Loss: Less than 10 mL. TECHNIQUE: Imaging guidance for drain insertion: Ultrasound and fluoroscopy with permanent image storage Access side: Right Catheter: 12 Tunisian multipurpose pigtail drain Technique: Image guidance was used to localize the collection. A 5 Tunisian Yueh needle catheter was used to access the collection under real time image guidance, and images were saved to PACS. Aspiration yielded purulent fluid. A guidewire was inserted, and the tract was dilated to accommodate a 12 Tunisian pigtail drain. The catheter was secured with [...] Patient education provided by a care steam service inspector. Patient was ready to learn withno apparent learning barriers were identified. Post-procedure careexplained; patient expressed understanding of the content. PROCEDURE DETAILS: Sedation: None. Local anesthesia was achieved with lidocaine. Sedation time: None Estimated Blood Loss: Less than 10 mL. TECHNIQUE: Imaging guidance for drain insertion: Ultrasound and fluoroscopy withpermanent image storage Access side: Right Catheter: 12 Tunisian multipurpose pigtail drain Technique: Image guidance was used to localize the collection. A 5 FrenchYueh needle catheter was used to access the collection under real timeimage guidance, and images were saved to PACS. Aspiration yielded purulentfluid. A guidewire was inserted, and the tract was dilated to accommodate a 12 Tunisian pigtail drain. Thecatheter was secured with 2-0 [...] * Glucose, Body Fluid (01/05/2024 12:50 PM FLEET MANAGER) Glucose, BF 49 See Comment mg/dL 01/06/2024 11:13 AM FLEET MANAGER DTL Comment: ----ADDITIONAL INFORMATION---- Body fluid [...] cystic lesions. All other fluids refer to [email or web address] for further interpretive information. This test has been modified from the drafting detailer's instructions. Its performance characteristics were determined by [facility] in a manner consistent with CLIA requirements. This test has not been cleared or approved by the U.S. Food and Drug Administration. Fluid Type, Glucose PLEURAL 01/05 10:14 AM FLEET MANAGER DTL Fluid (Pleural Fluid) 01/05/2024 12:50 PM FLEET MANAGER 01/06/2024 10:01 AM FLEET MANAGER us Fidencio Oliva M.D. LAB BODY FLUIDS AND STOOLS OR DERABLES Final Result Performing Organization Address [facility] Co de Phone Number [facility] [address] [place], [place] [address] [place] [address] [address] [place] [address] * Triglycerides, Body Fluid (01/05/2024 12:50 PM FLEET MANAGER) Triglycerides, BF 31 See Comment mg/dL 01/06/2024 11:13 AM FLEET MANAGER DTL Comment: ----ADDITIONAL INFORMATION---- Pleural fluid triglyceride concentrations > 110 mg/dL are consistent with chylous effusions. Triglyceride concentrations <50 mg/dL are usually not due to chylous effusions. Peritoneal fluid triglyceride concentrations > 187 mg/dL are most consistent with chylous effusion. All other fluids refer to http://www.[email or web address] for further interpretive information. This test has been modified from the drafting detailer's instructions. Its performance characteristics were determined by [facility] in a manner consistent with CLIA requirements. This test has not been cleared or approved by the U.S. Food and Drug Administration. Fluid Type Pleural 01/06/2024 10:14 AM FLEET MANAGER DTL Fluid (Pleural Fluid) 01/05/2024 12:50 PM FLEET MANAGER 01/06/2024 10:01 AM FLEET MANAGER Fidencio Oliva M.D. LAB BODY FLUIDS AND STOOLS OR DERABLES Final Result Performing Organization Address [facility] Co de Phone Number [facility] [address] [place] [address], [facility] [address] [place] [address] * Protein, Total, Body Fluid (01/05/2024 12:50 PM FLEET MANAGER) Protein, Total, BF 2.6 See Comment g/dL 01/06/2024 11:13 AM FLEET MANAGER DTL Comment: ----ADDITIONAL INFORMATION---- A pleural [...] clinical findings. All other fluids refer to www.[employer]com for further interpretive information. This test has been modified from the drafting detailer's instructions. Its performance characteristics were determined by [facility] in a manner consistent with CLIA requirements. This test has not been cleared or approved by the U.S. Food and Drug Administration. Fluid Type, Protein, Total PLEURAL 01/06/2024 10:14 AM FLEET MANAGER DTL Fluid (Pleural Fluid) 01/05/2024 12:50 PM FLEET MANAGER 01/06/2024 10:01 AM FLEET MANAGER Fidencio Oliva M.D. LAB BODY FLUIDS AND STOOLS OR DERABLES Final Result Performing Organization Address [facility]/ZIP Co de Phone Number [facility] [address] [place] [address], [facility] [address] [place] [address] * pH, Pleural Fluid (01/05/2024 12:50 PM FLEET MANAGER) pH, Pleural Fluid <6.80 Not Applicable pH 01/05/2024 1:59 PM FLEET MANAGER MKTO Comment: Clinical guidelines suggest that in parapneumonic pleural effusions, a pH <7.2 indicate the need for tube drainage. Fluid (Pleural Fluid) 01/05/2024 12:50 PM FLEET MANAGER 01/05/2024 1:47 PM FLEET MANAGER Fidencio Oliva M.D. LAB BODY FLUIDS AND STOOLS OR DERABLES Final Result [facility] [address] [place] [address], [place] MKTO [facility] [place] [address] [place] [address] * Lactate Dehydrogenase (LD), Body Fluid (01/05/2024 12:50 PM FLEET MANAGER) Lactate Dehydrogenase (LD), BF >9000 See Comment U/L 01/06/2024 12:17 PM FLEET MANAGER DTL Comment: ----ADDITIONAL INFORMATION---- Pleural fluid [...] clinical findings. All other fluids refer to www.[email or web address] for further interpretive information. This test has been modified from the drafting detailer's instructions. Its performance characteristics were determined by [facility] in a manner consistent with CLIA requirements. This test has not been cleared or approved by the U.S. Food and Drug Administration. Fluid Type, Lactate Dehydrogenase PLEURAL 01/06/2024 10:14 AM FLEET MANAGER DTL Fluid (Pleural Fluid) 01/05/2024 12:50 PM FLEET MANAGER 01/06/2024 8:29 AM FLEET MANAGER Fidencio Oliva M.D. LAB BODY FLUIDS AND STOOLS OR DERABLES Final Result [facility] [address] [address], [place] [address] * Cell Count and Differential, Body Fluid (01/05/2024 12:50 PM FLEET MANAGER) Pathologist [facility] Fluid Type Pleural/Thor acentesis 01/05/2024 2:19 PM FLEET MANAGER MKTO Gross Appearance Purulent 01/05/20 24 2:40 PM FLEET MANAGER MKTO Total Nucleated Cells [id number] /[id number] 01/05/2024 2:40 PM FLEET MANAGER MKTO Comment: ----REFERENCE VALUE---- Synovial: <150 Peritoneal: <500 Pleural: <500 Pericardial: <500 ----ADDITIONAL INFORMATION---- This test has been modified from the drafting detailer's instructions. Its performance characteristics were determined by [facility] in a manner consistent with CLIA requirements. This test has not been cleared or approved by the U.S. Food and Drug Administration. Neutrophils 100 % 01/05/2024 3:04 PM FLEET MANAGER MKTO Comment: ----REFERENCE VALUE---- Synovial: <25% Peritoneal: <25% Pleural: <25% Pericardial: <25% Reviewed by: Dr. Morton 01/05/2024 3:05 PM FLEET MANAGER MKTO Fluid (Pleural Fluid) 01/05/2024 12:50 PM FLEET MANAGER 01/05/2024 1:47 PM FLEET MANAGER us Fidencio Oliva M.D. LAB BODY FLUIDS AND STOOLS OR DERABLES Final Result [facility] [address] [place] [address], [place] MK[place] [facility] [place] [address] * Cytology Non-DIRECTOR OF CHILD WELFARE SERVICES (01/05/2024 12:50 PM FLEET MANAGER) 01/07/2024 3:19 PM FLEET MANAGER HKCY Disclaimer This test has been modified from the drafting detailer's instructions. Its performance characteristics were determined by [facility] in a manner consistent with CLIA requirements. This test has not been cleared or approved by the U.S. Food and Drug Administration. 01/07/2024 3:19 PM FLEET MANAGER HKCY Report electronically signed by LOLY Schwartz. Ch.B. I verify that I have examined all relevant slides/materials for the specimen(s) and rendered or confirmed the diagnosis. 01/07/2024 3:19 PM FLEET MANAGER HKCY Gross Description 50 ml of cloudy hubbard fluid received. Specimen fixed at 2:20 pm on 01-05-2024. 2 slides and cell block prepared. 01/07/2024 3:19 PM FLEET MANAGER HKCY Source A. Pleural, fluid 024 3:19 PM FLEET MANAGER HKCY Interpretation A. Pleural, fluid (smears/cell block): Negative for malignancy. Acute inflammation. COMMENT Immunohistochemica l stains with appropriate reactive controls was performed on separate slides on cell block. CK7, WT1, calretinin, TTF1, Napsin A, p40, CK20, NKX3.1 and CDX2: Negative Controls reviewed, results acceptable. 01/07/2024 3:19 PM FLEET MANAGER HKCY Fluid 01/05/2024 12:5 0 PM FLEET MANAGER 01/06/2024 7:16 AM FLEET MANAGER us Fidencio Oliva M.D. LAB SURG PATH ORDERABLES Sury l Result [facility] [address] [place] [address], [place] HK[place] [address] [facility] [address] [place] [address] * Bacterial Culture, Anaerobic + Susceptibility (01/05/2024 12:50 PM FLEET MANAGER) Bacterial Culture, Anaerobic No growth after 7 days of incubation. 01/12/2024 7:59 AM FLEET MANAGER MKTO Fluid (Pleural Fluid) 01/05/2024 12:50 PM FLEET MANAGER 01/05/2024 1:47 PM FLEET MANAGER Comment:Specimen Source Site : Fluid Fidencio Oliva M.D. LAB MICROBIOLOGY - GENERAL OR DERABLES Final Result Performing Organization Address [facility] Co de Phone Number [facility] [address] [place] [address], [place] MK[place] [facility] [place] [address] [place] [address] * (ABNORMAL) Gram Stain (01/05/2024 12:50 PM FLEET MANAGER) Gram Stain White blood cells, Many.(A) 01/05/2024 2:46 PM FLEET MANAGER MKTO Gram Stain GRAM POSITIVE COCCI Many. (A) 01/05/2024 2:46 PM FLEET MANAGER MKTO Fluid (Pleural Fluid) 01/05/2024 12:50 PM FLEET MANAGER 01/05/2024 1:47 PM FLEET MANAGER Comment:Specimen Source Site : Fluid us Fidencio Oliva M.D. LAB MICROBIOLOGY - GENERAL OR DERABLES Final Result Performing Organization Address [facility]/ZIP Co de Phone Number [facility] [address] [place] [address], [address] [address] * (ABNORMAL) Bacterial Culture, Aerobic + Susceptibility (01/05/2024 12:50 PM FLEET MANAGER) Bacterial Culture, Aerobic + Susc STREPTOCOCCUS ANGINOSUS GROUP [place] (A) 01/09/2024 7:56 AM FLEET MANAGER [facility] Fluid (Pleural Fluid) 01/05/2024 12:50 PM FLEET MANAGER 01/05/2024 1:47 PM FLEET MANAGER Comment:Specimen Source Site : Fluid Narrative [...] MICROBIOLOGY - GENERAL OR DERABLES Final Result [facility] [address] [place] [address], [address] [place] [address] * (ABNORMAL) Morphology Evaluation (01/05/2024 5:52 AM FLEET MANAGER) Pathologist [facility] RBC Morphology See Specific Findings 01/05/2024 7:09 AM FLEET MANAGER MKTO PLT Morphology Normal 01/05/2024 7:09 AM FLEET MANAGER MKTO PLT Estimate Increased(A ) Adequate 01/05/2024 7:09 AM FLEET MANAGER MKTO Anisocytosis Slight(A) 01/05/2024 7:09 AM FLEET MANAGER MKTO Basophilic Stippling Slight(A) 01/05/2024 7:09 AM FLEET MANAGER MKTO Poikilocytosis Slight(A) Not Seen 01/05/2024 7:09 AM FLEET MANAGER MKTO Blood 01/05/2024 5:52 AM FLEET MANAGER 01/05/2024 6:08 AM FLEET MANAGER us Octavio Cavazos, Ch.B. LAB BLOOD ADD-ON F inal Result [facility] [address] [place] [address], [place] MK[place] [facility] [place] [address] * (ABNORMAL) Manual Differential, Blood (01/05/2024 5:52 AM FLEET MANAGER) [facility] Segmented Neutrophils 89(H) 50 - 75 % 01/05/2024 7:09 AM FLEET MANAGER MKTO Lymphocytes % 5(L) 18 - 42 % 01/05/2024 7:09 AM FLEET MANAGER MKTO Monocytes 3 2 - 11 % 01/05/2024 7:09 AM FLEET MANAGER MKTO Metamyelocytes 2(H) <1 % 01/05/2024 7:09 AM FLEET MANAGER MKTO Myelocytes 1(H) <0.5 % 01/05/2024 7:09 AM FLEET MANAGER MKTO Manual Absolute Neutrophil Count 17.89(H) 1.56 - 6.45 x10(9)/L 01/05/2024 7:09 AM FLEET MANAGER MKTO Comment: ----ADDITIONAL INFORMATION---- The manual absolute neutrophil count is derived from a manual differential count and therefore is not exactly comparable to the automated absolute neutrophil count. Blood 01/05/2024 5:52 AM FLEET MANAGER 01/05/2024 6:08 AM FLEET MANAGER us Octavio Cavazos, Ch.B. LAB BLOOD ADD-ON F inal Result [facility] [address] [place] [address], [place] MKTO [facility] [place] [address] [place] [address] * (ABNORMAL) Basic Metabolic Panel (01/05/2024 5:52 AM FLEET MANAGER) Potassium, P 3.7 3.6 - 5.2 mmol/L 01/05/2024 6:32 AM FLEET MANAGER MKTO Sodium, P 141 135 - 145 mmol/L 01/05/2024 6:32 AM FLEET MANAGER MKTO Chloride, P 102 98 - 107 mmol/L 01/05/2024 6:32 AM FLEET MANAGER MKTO Bicarbonate, P 25 22 - 29 mmol/L 01/05/2024 6:32 AM FLEET MANAGER MKTO Anion Gap, P 14 7 - 15 01/05/2024 6:32 AM FLEET MANAGER MKTO BUN (Blood Urea Nitrogen), P 29(H) 8 - 24 mg/dL 01/05/2024 6:32 AM FLEET MANAGER MKTO Creatinine 1.66(H) 0.74 - 1.35 mg/dL 01/05/2024 6:32 AM FLEET MANAGER MKTO Estimated GFR (eGFR) 40(L) >=60 mL/min/BSA 01/05/2024 6:32 AM FLEET MANAGER MKTO Comment: Estimated GFR calculated using the 2020 CKD_EPI creatinine equation. Calcium, Total, P 8.8 8.8 - 10.2 mg/dL 01/05/2024 6:32 AM FLEET MANAGER MKTO Glucose, P 100 70 - 140 mg/dL 01/05/2024 6:32 AM FLEET MANAGER MKTO Blood (Blood, Venous) 01/05/2024 5:52 AM FLEET MANAGER 01/05/2024 6:08 AM FLEET MANAGER us Octavio Cavazos, Ch.B. LAB BLOOD ADD-ON F inal Result [facility] [address] [place] [address], [address] [address] * (ABNORMAL) CBC with Differential, Blood (01/05/2024 5:52 AM FLEET MANAGER) Pathologist [facility] Hemoglobin 9.8(L) 13.2 - 16.6 g/dL 01/05/2024 7:09 AM FLEET MANAGER MKTO Hematocrit 30.8(L) 38.3 - 48.6 % 01/05/2024 7:09 AM FLEET MANAGER MKTO Erythrocytes 3.30(L) 4.35 - 5.65 x10(12)/ L 01/05/2024 7:09 AM FLEET MANAGER MKTO MCV 93.3 78.2 - 97.9 fL 01/05/2024 7:09 AM FLEET MANAGER MKTO RBC Distrib Width 15.2(H) 11.8 - 14.5 % 01/05/2024 7:09 AM FLEET MANAGER MKTO Platelet Count 362(H) 135 - 317 x10(9)/L 01/05/2024 7:09 AM FLEET MANAGER MKTO Leukocytes 20.1(H) 3.4 - 9.6 x10(9)/L 01/05/2024 7:09 AM FLEET MANAGER MKTO Neutrophils See manual differential 1.56 - 6.45 x10(9)/L 01/05/2024 7:09 AM FLEET MANAGER MKTO Blood (Blood, Venous) 01/05/2024 5:52 AM FLEET MANAGER 01/05/2024 6:08 AM FLEET MANAGER us Octavio Cavazos, Ch.B. LAB BLOOD ADD-ON F inal Result [facility] [address] [place] [address], [place] MKTO [facility] in [address] [address] * Pneumonia Panel, PCR (01/04/2024 7:45 PM FLEET MANAGER) [facility] Specimen Source SPUTUM 10:43 PM FLEET MANAGER MKTO Acinetobacter calcoaceticus-balbir annii complex Undetected Undetected copies/mL 01/04/2024 10:43 PM FLEET MANAGER MKTO Enterobacter cloacae complex Undetected Undetected copies/mL 01/04/2024 10:43 PM FLEET MANAGER MKTO Escherichia coli Undetected Undetected copies/mL 01/04/2024 10:43 PM FLEET MANAGER MKTO Haemophilus influenzae Undetected Undetected copies/mL 01/04/2024 10:43 PM FLEET MANAGER MKTO Klebsiella aerogenes Undetected Undetected copies/mL 01/04/2024 10:43 PM FLEET MANAGER MKTO Klebsiella oxytoca Undetected Undetected copies/mL 01/04/2024 10:43 PM FLEET MANAGER MKTO Klebsiella pneumoniae complex Undetected Undetected copies/mL 01/04/2024 10:43 PM FLEET MANAGER MKTO Moraxella catarrhalis Undetected Undetected copies/mL 01/04/2024 10:43 PM FLEET MANAGER MKTO Proteus species Undetected Undetected copies/mL 01/04/2024 10:43 PM FLEET MANAGER MKTO Pseudomonas aeruginosa Undetected Undetected copies/mL 01/04/2024 10:43 PM FLEET MANAGER MKTO Serratia marcescens Undetected Undetected copies/mL 01/04/2024 10:43 PM FLEET MANAGER MKTO Staphylococcus aureus complex Undetected Undetected copies/mL 01/04/2024 10:43 PM FLEET MANAGER MKTO Streptococcus agalactiae Undetected Undetected copies/mL 01/04/2024 10:43 PM FLEET MANAGER MKTO Streptococcus pneumoniae Undetected Undetected copies/mL 01/04/2024 10:43 PM FLEET MANAGER MKTO Streptococcus pyogenes Undetected Undetected copies/mL 01/04/2024 10:43 PM FLEET MANAGER MKTO Chlamydia pneumoniae Undetected Undetected 01/04/2024 10:43 PM FLEET MANAGER MKTO Legionella pneumophila Undetected Undetected 01/04/2024 10:43 PM FLEET MANAGER MKTO Mycoplasma pneumoniae Undetected Undetected 01/04/2024 10:43 PM FLEET MANAGER MKTO Adenovirus Undetected Undetected 01/04/2024 10:43 PM FLEET MANAGER MKTO Coronavirus Undetected Undetected 01/04/2024 10:43 PM FLEET MANAGER MKTO Human Metapneumovirus Undetected Undetected 01/04/2024 10:43 PM FLEET MANAGER MKTO Human Rhinovirus/Enterov irus Undetected Undetected 01/04/2024 10:43 PM FLEET MANAGER MKTO Influenza A Undetected Undetected 01/04/2024 10:43 PM FLEET MANAGER MKTO Influenza B Undetected Undetected 01/04/2024 10:43 PM FLEET MANAGER MKTO Parainfluenza Undetected Undetected 01/04/2024 10:43 PM FLEET MANAGER MKTO Respiratory Syncytial Virus Undetected Undetected 01/04/2024 10:43 PM FLEET MANAGER MKTO Comment: ----ADDITIONAL INFORMATION---- This assay is performed using the FDA-cleared FilmArray Pneumonia Panel (PN) (Weroom.). Any initial empiric treatment guidance provided in [...] SARS-CoV-2. Sputum (Sputum) 01/04/2024 7 :45 PM FLEET MANAGER 01/04/2024 7:55 PM FLEET MANAGER Octavio Cavazos, Ch.B. LAB MICROBIOLOGY - GENERAL ORDERABLES Final Result Performing Organization Address [facility] Co de Phone Number [facility] [address] [place] [address], [place] [address] * (ABNORMAL) Gram Stain (01/04/2024 7:45 PM FLEET MANAGER) Gram Stain White blood cells, Many.(A) 01/04/2024 8:40 PM FLEET MANAGER MKTO Gram Stain GRAM POSITIVE COCCI Many. (A) 01/04/2024 8:40 PM FLEET MANAGER MKTO Sputum 01/04/2024 7:45 PM FLEET MANAGER 01/04/2024 7:55 PM FLEET MANAGER Comment:Specimen Source Site : Sputum Octavio Cavazos, Ch.B. LAB MICROBIOLOGY - GENERAL ORDERABLES Final Result Performing Organization Address City/[facility]/ZIP Co de Phone Number [facility] [address] [place] [address], [place] [address] [address] * Bacterial Culture, Aerobic + Susceptibility, Respiratory (01/04/2024 7:45 PM FLEET MANAGER) Pathologist [facility] Bacterial Culture, Aerobic, Resp No growth after 2 days of incubation. 01/06/2024 8:19 AM FLEET MANAGER [facility] Sputum (Sputum) 01/04/2024 7 :45 PM FLEET MANAGER 01/04/2024 7:55 PM FLEET MANAGER Comment:Specimen Source Site : Sputum us Octavio Cavazos, Ch.B. LAB MICROBIOLOGY - GENERAL ORDERABLES Final Result [facility] [address] [place] [address], [address] [address] * MRSA PCR, Nasal (01/04/2024 7:45 PM FLEET MANAGER) Pathologist [facility] MRSA Screen, Nasal by PCR Negative Negative 01/04/2024 9:24 PM FLEET MANAGER [facility] Swab (Nares) 01/04/2024 7:45 PM FLEET MANAGER 01/04/2024 7:53 PM FLEET MANAGER us Frank Mccall M.D. LAB MICROBIOLOGY - GENERAL ORDERABLES Final Result Performing Organization Address City/[facility]/ZIP Co de Phone Number [facility] [address] [place] [address], [address] [address] * (TTE) 2D ECHO DOPPLER COLOR AND CONTRAST (01/04/2024 10:38 AM FLEET MANAGER) Pathologist [facility] Ejection Fraction 59 MC CV EIMS Sinus [...] Region Laterality Modality Echocardiography 01/04/2024 9:49 AM FLEET MANAGER Impressions 01/04/2024 11:49 AM FLEET MANAGER Echo performed at the patient's bedside. [...] per Echocardiography Contrast Administration Protocol Reference Document [id number] Rev 05/30/2021. Patient met an inclusion criterion and did not have contraindications in screening sections. For the complete report, see the Order-Level Documents. Narrative 01/04/2024 11:49 AM FLEET MANAGER For the complete report, see the [...] administered per EchocardiographyContrast Administration Protocol Reference Document [id number] Rev05/30/2021. Patient met an inclusion criterion and did not havecontraindications in screening sections. For the complete report, see the Order-Level Documents. Jet Palomares M.D. CV ECHO PROCEDURES Sury l Result * (ABNORMAL) Microscopic Automated (01/04/2024 5:56 AM FLEET MANAGER) White Blood Cells 4-10(A) /hpf 01/04/2024 6:58 AM FLEET MANAGER MKTO Comment: ----REFERENCE VALUE---- Males: 0-3 Females: 0-10 Unknown: 0-10 Red Blood Cells None Seen 0 - 2 /hpf 01/04/2024 6:58 AM FLEET MANAGER MKTO Hyaline Casts 4-10 /lpf 01/04/2024 6:58 AM FLEET MANAGER MKTO Squamous Cells Occ-3 /hpf 01/04/2024 6:58 AM FLEET MANAGER MKTO Urine 01/04/2024 5:56 AM FLEET MANAGER 01/04/2024 6:02 AM FLEET MANAGER us Jet Palomares M.D. LAB URINE ORDERABLES Fi nal Result [facility] [address] [place] [address], [facility] [address] [place] [address] * (ABNORMAL) Protein/Creatinine Ratio, Random, Urine (01/04/2024 5:56 AM FLEET MANAGER) Protein, Total, Random, U 33 mg/dL 01/04/2024 6:54 AM FLEET MANAGER MKTO Creatinine, Random, U 94 16 - 326 mg/dL 01/04/2024 6:54 AM FLEET MANAGER MKTO Protein/Creati nine Ratio 0.35(H) <0.18 mg/mg 01/04/2024 6:54 AM FLEET MANAGER MKTO Urine (Urine, Midstream) 01/04/2024 5:56 AM FLEET MANAGER 01/04/2024 6:02 AM FLEET MANAGER us Jet Palomares M.D. LAB URINE ORDERABLES Fi nal Result Performing Organization Address City/[facility]/ZIP Co de Phone Number [facility] [address] [place] [address], [facility] [address] [place] [address] * (ABNORMAL) Urinalysis with Microscopic if Indicated (01/04/2024 5:56 AM FLEET MANAGER) Source Urine, Urine, Midstream 01/04/2024 6:03 AM FLEET MANAGER MKTO Clarity Cloudy(A) Clear 01/04/2024 6:37 AM FLEET MANAGER MKTO Color Yellow 01/04/2024 6:37 AM FLEET MANAGER MKTO Comment: ----REFERENCE VALUE---- Colorless Yellow Veronica Blood Negative Negative 01/04/2024 6:37 AM FLEET MANAGER MKTO Nitrite Negative Negative 01/04/2024 6:37 AM FLEET MANAGER MKTO Leukocyte Esterase Negative Negative 01/04/2024 6:37 AM FLEET MANAGER MKTO Protein 30(A) mg/dL 01/04/2024 6:37 AM FLEET MANAGER MKTO Comment: ----REFERENCE VALUE---- Negative Trace Glucose Negative Negative mg/dL 01/04/2024 6:37 AM FLEET MANAGER MKTO Ketone Trace(A) Negative mg/dL 01/04/2024 6:37 AM FLEET MANAGER MKTO Bilirubin Negative Negative 01/04/2024 6:37 AM FLEET MANAGER MKTO pH 5.0 5.0 - 8.0 01/04/2024 6:37 AM FLEET MANAGER MKTO Specific Merrill 1.014 1.001 - 1.035 01/04/2024 6:37 AM FLEET MANAGER MKTO Urobilinogen 0.2 0.2 - 1.0 mg/dL 01/04/2024 6:37 AM FLEET MANAGER MKTO Urine (Urine, Midstream) 01/04/2024 5:56 AM FLEET MANAGER 01/04/2024 6:02 AM FLEET MANAGER Jet Palomares M.D. LAB URINE ORDERABLES Fi nal Result Performing Organization Address [facility] Co de Phone Number [facility] [address] [place] [address] * Sodium, Random, Urine (01/04/2024 5:56 AM FLEET MANAGER) Pathologist [facility] Sodium, Random, U 28 mmol/L 01/04/2024 6:54 AM FLEET MANAGER MKTO Comment: ----REFERENCE VALUE---- Random urine sodium may be interpreted in conjunction with serum sodium, using both values to calculate fractional excretion of sodium. Urine (Urine, Midstream) 01/04/2024 5:56 AM FLEET MANAGER 01/04/2024 6:01 AM FLEET MANAGER us Fausto Bey M.D. LAB URINE ORDERABLES Final Resu lt Performing Organization Address [facility] Co de Phone Number [facility] [address] [place] [address] * (ABNORMAL) NT-Pro B-Type Natriuretic Peptide (BNP) (01/04/2024 4:56 AM FLEET MANAGER) NT-Pro BNP 5163(H) <=540 pg/mL 01/04/2024 8:20 AM FLEET MANAGER MKTO Comment: NT-proBNP values less than [...] failure. Blood (Blood, Venous) 01/04/2024 4:56 AM FLEET MANAGER 01/04/2024 8:01 AM FLEET MANAGER Portia Ramos M.D., Ph.D. LAB BLOOD ADD-ON Final Res ult Performing Organization Address [facility] Co de Phone Number [facility] [address] [place] [address], [place] [address] * Parathyroid Hormone (PTH) (01/04/2024 4:56 AM FLEET MANAGER) Parathyroid Hormone (PTH), S 43 15 - 65 pg/mL 01/04/2024 8:32 AM FLEET MANAGER MKTO Comment: Biotin has been identified by the drafting detailer as a potential interfering substance. Higher concentrations of biotin may be found in multivitamins, hair/nail supplements, and workout supplements. If the result does not match clinical observations, repeat testing after patient refrains from the use of supplements for at least 12 hours. Blood (Blood, Venous) 01/04/2024 4:56 AM FLEET MANAGER 01/04/2024 8:02 AM FLEET MANAGER us Portia Ramos M.D., Ph.D. LAB BLOOD ADD-ON Final Res ult Performing Organization Address [facility]/ZIP Co de Phone Number [facility] [address] [place] [address] * (ABNORMAL) Iron and Total Iron-Binding Capacity (01/04/2024 4:56 AM FLEET MANAGER) Iron 38(L) 50 - 150 mcg/dL 01/04/2024 8:32 AM FLEET MANAGER MKTO Total Iron Binding Capacity 79(L) 250 - 400 mcg/dL 01/04/2024 8:32 AM FLEET MANAGER MKTO Percent Saturation 48 14 - 50 % 01/04/2024 8:32 AM FLEET MANAGER TO Blood (Blood, Venous) 01/04/2024 4:56 AM FLEET MANAGER 01/04/2024 8:02 AM FLEET MANAGER us Portia Ramos M.D., Ph.D. LAB BLOOD ADD-ON Final Res ult Performing Organization Address [facility] Co de Phone Number [facility] [address] [place] [address], [place] [address] * (ABNORMAL) Ferritin (01/04/2024 4:56 AM FLEET MANAGER) Ferritin, S 1703(H) 31 - 409 mcg/L 01/04/2024 8:32 AM FLEET MANAGER MKTO Comment: Biotin has been identified by the drafting detailer as a potential interfering substance. Higher concentrations of biotin may be found in multivitamins, hair/nail supplements, and workout supplements. If the result does not match clinical observations, repeat testing after patient refrains from the use of supplements for at least 12 hours. Blood (Blood, Venous) 01/04/2024 4:56 AM FLEET MANAGER 01/04/2024 8:02 AM FLEET MANAGER us Portia Ramos M.D., Ph.D. LAB BLOOD ADD-ON Final Res ult Performing Organization Address [facility] Co de Phone Number [facility] [address] [place] [address], [address] [place] [address] * (ABNORMAL) Basic Metabolic Panel (01/04/2024 4:56 AM FLEET MANAGER) Potassium, P 3.6 3.6 - 5.2 mmol/L 01/04/2024 5:39 AM FLEET MANAGER MKTO Sodium, P 141 135 - 145 mmol/L 01/04/2024 5:39 AM FLEET MANAGER MKTO Chloride, P 104 98 - 107 mmol/L 01/04/2024 5:39 AM FLEET MANAGER MKTO Bicarbonate, P 19(L) 22 - 29 mmol/L 01/04/2024 5:39 AM FLEET MANAGER MKTO Anion Gap, P 18(H) 7 - 15 01/04/2024 5:39 AM FLEET MANAGER MKTO BUN (Blood Urea Nitrogen), P 63(H) 8 - 24 mg/dL 01/04/2024 5:39 AM FLEET MANAGER MKTO Creatinine 2.45(H) 0.74 - 1.35 mg/dL 01/04/2024 5:39 AM FLEET MANAGER MKTO Estimated GFR (eGFR) 25(L) >=60 mL/min/BSA 01/04/2024 5:39 AM FLEET MANAGER MKTO Comment: Estimated GFR calculated using the 2020 CKD_EPI creatinine equation. Calcium, Total, P 8.1(L) 8.8 - 10.2 mg/dL 01/04/2024 5:39 AM FLEET MANAGER MKTO Glucose, P 90 70 - 140 mg/dL 01/04/2024 5:39 AM FLEET MANAGER MKTO Blood (Blood, Venous) 01/04/2024 4:56 AM FLEET MANAGER 01/04/2024 5:15 AM FLEET MANAGER us Octavio Cavazos, Ch.B. LAB BLOOD ADD-ON F inal Result [facility] [address] [place] [address], [place] [address] * (ABNORMAL) CBC with Differential, Blood (01/04/2024 4:56 AM FLEET MANAGER) Hemoglobin 8.7(L) 13.2 - 16.6 g/dL 01/04/2024 5:20 AM FLEET MANAGER MKTO Hematocrit 26.1(L) 38.3 - 48.6 % 01/04/2024 5:20 AM FLEET MANAGER MKTO Erythrocytes 2.89(L) 4.35 - 5.65 x10(12)/L 01/04/2024 5:20 AM FLEET MANAGER MKTO MCV 90.3 78.2 - 97.9 fL 01/04/2024 5:20 AM FLEET MANAGER MKTO RBC Distrib Width 15.3(H) 11.8 - 14.5 % 01/04/2024 5:20 AM FLEET MANAGER MKTO Platelet Count 429(H) 135 - 317 x10(9)/L 01/04/2024 5:20 AM FLEET MANAGER MKTO Leukocytes 20.6(H) 3.4 - 9.6 x10(9)/L 01/04/2024 5:20 AM FLEET MANAGER MKTO Neutrophils 18.32(H) 1.56 - 6.45 x10(9)/L 01/04/2024 5:20 AM FLEET MANAGER MKTO Lymphocytes 1.03 0.95 - 3.07 x10(9)/L 01/04/2024 5:20 AM FLEET MANAGER MKTO Monocytes 1.16(H) 0.26 - 0.81 x10(9)/L 01/04/2024 5:20 AM FLEET MANAGER MKTO Eosinophils 0.09 0.03 - 0.48 x10(9)/L 01/04/2024 5:20 AM FLEET MANAGER MKTO Basophils 0.04 0.01 - 0.08 x10(9)/L 01/04/2024 5:20 AM FLEET MANAGER MKTO Blood (Blood, Venous) 01/04/2024 4:56 AM FLEET MANAGER 01/04/2024 5:15 AM FLEET MANAGER us Octavio Cavazos, Ch.B. LAB BLOOD ADD-ON F inal Result [facility] [address] [place] [address], [place] MK[place] [facility] [place] [address] [place] [address] * Cytology Non-DIRECTOR OF CHILD WELFARE SERVICES (01/03/2024 5:09 PM FLEET MANAGER) 01/05/2024 8:19 AM FLEET MANAGER HKCY Report electronically signed by Rito Rizvi MD I verify that I have examined all relevant slides/materia ls for the specimen(s) and rendered or confirmed the diagnosis. 01/05/2024 8:19 AM FLEET MANAGER HKCY Gross Description 60 ml of creamy fluid received. Specimen fixed at 6:30 am on 01-04-2024. 2 slides and cell block prepared. 01/05/2024 8:19 AM FLEET MANAGER HKCY Collection Procedure [id number] 01/05/2024 8:19 AM FLEET MANAGER HKCY Source A. Pleural, Right, fluid 01/05/2024 8:19 AM FLEET MANAGER HKCY Interpretation A. Pleural, Right, fluid (smears/cell block): Negative for malignancy. Acute inflammation. Clusters of coccal bacteria. 01/05/2024 8:19 AM FLEET MANAGER HKCY Fluid (Pleural Fluid, Right) 01/03/2024 5:09 PM FLEET MANAGER 01/04/2024 7:17 AM FLEET MANAGER us Octavio Cavazos, Ch.B. LAB SURG PATH ORDE MARIA TERESA Final Result [facility] [address] [place] [address], [place] HKCY [facility] [address] [address] * US Thoracentesis Right with Imaging Guidance (01/03/2024 5:04 PM FLEET MANAGER) Anatomical Region Laterality Modality Chest, Ultrasound RST LOS, U ltrasound ARZ LOS, Procedure FLA LOS, Abdominal FLA LOS, Procedural, Procedural NWWI LOS Right Ultrasound Impressions 01/04/2024 8:03 AM FLEET MANAGER Successful ultrasound guided diagnostic and therapeutic right thoracentesis. Narrative 01/04/2024 8:03 AM FLEET MANAGER EXAM: US THORACENTESIS RIGHT WITH IMAGING [...] Patient education provided by the care steam service inspector. Ready to learn, no apparent learning barriers [...] Patient education provided by the care steam service inspector. Ready to learn, no apparent learningbarriers were identified. Post-procedure care explained; patient expressedunderstanding of the content. IMPRESSION: Successful ultrasound guided diagnostic and therapeutic rightthoracentesis. us Octavio Cavazos, B. IMG US PROCEDURES Final Result * (ABNORMAL) Basic Metabolic Panel (01/03/2024 1:56 PM FLEET MANAGER) Potassium, P 3.3(L) 3.6 - 5.2 mmol/L 01/03/2024 2:21 PM FLEET MANAGER MKTO Sodium, P 140 135 - 145 mmol/L 01/03/2024 2:21 PM FLEET MANAGER MKTO Chloride, P 102 98 - 107 mmol/L 01/03/2024 2:21 PM FLEET MANAGER MKTO Bicarbonate, P 21(L) 22 - 29 mmol/L 01/03/2024 2:21 PM FLEET MANAGER MKTO Anion Gap, P 17(H) 7 - 15 01/03/2024 2:21 PM FLEET MANAGER MKTO BUN (Blood Urea Nitrogen), P 55(H) 8 - 24 mg/dL 01/03/2024 2:21 PM FLEET MANAGER MKTO Creatinine 2.17(H) 0.74 - 1.35 mg/dL 01/03/2024 2:21 PM FLEET MANAGER MKTO Estimated GFR (eGFR) 29(L) >=60 mL/min/BSA 01/03/2024 2:21 PM FLEET MANAGER MKTO Comment: Estimated GFR calculated using the 2020 CKD_EPI creatinine equation. Calcium, Total, P 8.1(L) 8.8 - 10.2 mg/dL 01/03/2024 2:21 PM FLEET MANAGER MKTO Glucose, P 93 70 - 140 mg/dL 01/03/2024 2:21 PM FLEET MANAGER MKTO Blood (Blood, Venous) 01/03/2024 1:56 PM FLEET MANAGER 01/03/2024 2:02 PM FLEET MANAGER us Jet Palomares M.D. LAB BLOOD ADD-ON Final Result [facility] [address] [place] [address], [facility] in [place] [address] [place] [address] * Bacteria / Cheri Culture, Blood #1 (01/03/2024 10:53 AM FLEET MANAGER) Bacteria/Nereida da Culture, Blood No growth after 5 day/s of incubation. 01/08/2024 11:05 AM FLEET MANAGER MKTO Blood (Blood, Peripheral Draw) 01/03/2024 10:53 AM FLEET MANAGER 01/03/2024 10:58 AM FLEET MANAGER Comment:Specimen Source Site : Blood Octavio Cavazos, Ch.B. LAB MICROBIOLOGY - GENERAL ORDERABLES Final Result Performing Organization Address [facility] Co de Phone Number [facility] [address] [place] [address], [facility] [address] [place] [address] * Lactate for Sepsis with Reflex (01/03/2024 10:52 AM FLEET MANAGER) Pathologist [facility] Lactate, B 1.1 0.5 - 2.2 mmol/L 01/03/2024 11:01 AM FLEET MANAGER [facility] Blood (Blood, Venous) 01/03/2024 10:52 AM FLEET MANAGER 01/03/2024 10:58 AM FLEET MANAGER Octavio Cavazos, Ch.B. LAB BLOOD NON ADD- ON Final Result Performing Organization Address [facility] Co de Phone Number [facility] [address] [place] [address], [place] [address] * Bacteria / Cheri Culture, Blood #2 (01/03/2024 10:52 AM FLEET MANAGER) Bacteria/Nereida da Culture, Blood No growth after 5 day/s of incubation. 01/08/2024 11:05 AM FLEET MANAGER MKTO Blood (Blood, Peripheral Draw) 01/03/2024 10:52 AM FLEET MANAGER 01/03/2024 10:58 AM FLEET MANAGER Comment:Specimen Source Site : Blood us Octavio Cavazos, Ch.B. LAB MICROBIOLOGY - GENERAL ORDERABLES Final Result Performing Organization Address [facility] Co de Phone Number [facility] [address] [place] [address], [address] [address] * (ABNORMAL) Albumin (01/03/2024 10:51 AM FLEET MANAGER) Pathologist [facility] Albumin, P 3.0(L) 3.5 - 5.0 g/dL 01/03/2024 1:15 PM FLEET MANAGER TO Blood (Blood, Venous) 01/03/2024 10:51 AM FLEET MANAGER 01/03/2024 1:02 PM FLEET MANAGER us Jet Palomares M.D. LAB BLOOD ADD-ON Final Result Performing Organization Address [facility]/ZIP Co de Phone Number [facility] [address] [place] [address], [address] [address] * Vitamin D, Immunoassay, Total, Serum (01/03/2024 6:42 AM FLEET MANAGER) [facility] Vitamin D, Immunoassay, Total, S 23 20 - 80 ng/mL 01/04/2024 8:37 AM FLEET MANAGER TO Comment: Optimum levels within the healthy population are 20-50, patients with bone disease may benefit from high levels within this range Blood (Blood, Venous) 01/03/2024 6:42 AM FLEET MANAGER 01/04/2024 8:02 AM FLEET MANAGER us Portia Ramos M.D., Ph.D. LAB BLOOD ADD-ON Final Res ult [facility] [address] [place] [address], [address] [address] * (ABNORMAL) NT-Pro B-Type Natriuretic Peptide (BNP) (01/03/2024 6:42 AM FLEET MANAGER) [facility] NT-Pro BNP 4710(H) <=540 pg/mL 01/03/2024 7:46 AM FLEET MANAGER MKTO Comment: NT-proBNP values less than [...] failure. Blood (Blood, Venous) 01/03/2024 6:42 AM FLEET MANAGER 01/03/2024 6:55 AM FLEET MANAGER us Jet Palomares M.D. LAB BLOOD ADD-ON Final Result Performing Organization Address [facility]/ZIP Co de Phone Number [facility] [address] [place] [address] * (ABNORMAL) Calcium, Ionized (01/03/2024 6:42 AM FLEET MANAGER) Calcium, Ionized, B 4.31(L) 4.65 - 5.30 mg/dL 01/03/2024 7:00 AM FLEET MANAGER [facility] Blood 01/03/2024 6:42 AM FLEET MANAGER 01/03/2024 6:55 AM FLEET MANAGER us Deanna Lewis APRN, C.N.P., D.N.P., M.S.N. LAB B LOOD NON ADD-ON Final Result Performing Organization Address [facility]/ZIP Co de Phone Number [facility] [address] [place] [address] * pH (01/03/2024 6:42 AM FLEET MANAGER) pH 7.43 7.35 - 7.45 pH 01/03/2024 7:00 AM FLEET MANAGER [facility] Blood 01/03/2024 6:42 AM FLEET MANAGER 01/03/2024 6:55 AM FLEET MANAGER us Deanna Lewis APRN, C.N.P., D.N.P., M.S.N. LAB H ISTORICAL ORDERS Final Result [facility] [address] [place] [address], [place] MKTO [facility] [place] [address] [place] [address] * (ABNORMAL) QuantiFERON-Tb Gold Plus, Blood (01/03/2024 6:42 AM FLEET MANAGER) [facility] QuantiFERON-TB Gold Plus Result Indetermi parviz(A) Negative 01/07/2024 2:48 PM FLEET MANAGER [facility]SC[facility] Comment: Indeterminate due to a low interferon-gamma level in the mitogen (positive control) tube. This may occur due to a low lymphocyte count, reduced lymphocyte activity or inability of the patient's lymphocytes to generate interferon-gamma. The reference range for the 'Mitogen minus Nil Result' is >=0.5 IU/mL. TB1 Ag minus Nil Result 0.00 IU/mL 01/07/2024 2:48 PM FLEET MANAGER [facility] TB2 Ag minus Nil Result 0.00 IU/mL 01/07/2024 2:48 PM FLEET MANAGER [facility] Mitogen minus Nil Result 0.01 IU/mL 01/07/2024 2:48 PM FLEET MANAGER [facility] Nil Result 0.04 IU/mL 01/07/2024 2:48 PM FLEET MANAGER [facility] Blood (Blood, Venous) 01/03/2024 6:42 AM FLEET MANAGER 01/04/2024 10:57 AM FLEET MANAGER Narrative [facility] - 01/07/2024 2:48 PM FLEET MANAGER Specimen Information: Specimen ID: [id number] Specimen Type: Blood Specimen Collection Start Date: 01/03/2024 6:42 AM Specimen Received Date: 01/04/2024 10:57 AM Specimen ID: [id number] Specimen Type: Blood Specimen Collection Start Date: 01/03/2024 6:42 AM Specimen Received Date: 01/04/2024 10:57 AM Specimen ID: [id number] Specimen Type: Blood Specimen Collection Start Date: 01/03/2024 6:42 AM Specimen Received Date: 01/04/2024 10:57 AM Specimen ID: [id number] Specimen Type: Blood Specimen Collection Start Date: 01/03/2024 6:42 AM Specimen Received Date: 01/04/2024 10:57 AM us Jet Palomares M.D. LAB MICROBIOLOGY - BLOO D ORDERABLES Final Result Performing Organization Address City/[facility]/ZIP Co de Phone Number [facility] [address] [place] [address], [facility] in [address] [address] * HBc Total Ab, Serum (01/03/2024 6:42 AM FLEET MANAGER) HBc Total Ab, S Negative Negative 01/04/2024 11:52 AM FLEET MANAGER [facility] Blood (Blood, Peripheral Draw) 01/03/2024 6:42 AM FLEET MANAGER 01/04/2024 7:28 AM FLEET MANAGER Jet Palomares M.D. LAB MICROBIOLOGY - BLOO D ORDERABLES Final Result Performing Organization Address [facility]/ZIP Co de Phone Number [facility] [address] [place] [address] [place] [address] * HBs Antibody, Serum (01/03/2024 6:42 AM FLEET MANAGER) HBs Antibody, S Negative 7:57 AM FLEET MANAGER MKTO Comment: Patient is presumed NOT to be immune to infection with HBV. Consumption of high-dose biotin supplement within 12 hours of blood collection for this test can cause false-negative results. ----REFERENCE VALUE---- Unvaccinated: Negative Vaccinated: Positive HBs Antibody, Quantitative, S <3.50 mIU/mL 01/03/2024 7:57 AM FLEET MANAGER MKTO Comment: ----REFERENCE VALUE---- <8.50: Negative 8.50-11.49: Indeterminate >=11.50: Positive Blood (Blood, Peripheral Draw) 01/03/2024 6:42 AM FLEET MANAGER 01/03/2024 6:55 AM FLEET MANAGER Jet Palomares M.D. LAB MICROBIOLOGY - BLOO D ORDERABLES Final Result Performing Organization Address [facility] Co de Phone Number [facility] [address] [place] [address], [address] [address] * Hepatitis B Surface Antigen (01/03/2024 6:42 AM FLEET MANAGER) Pathologist [facility] HBs Antigen, S Nonreactive Nonreactive 01/03/2024 8:07 AM FLEET MANAGER MKTO Blood (Blood, Peripheral Draw) 01/03/2024 6:42 AM FLEET MANAGER 01/03/2024 6:55 AM FLEET MANAGER Jet Palomares M.D. LAB MICROBIOLOGY - BLOO D ORDERABLES Final Result Performing Organization Address [facility] Co de Phone Number [facility] [address] [place] [address], [address] [address] * (ABNORMAL) CBC with Differential, Blood (01/03/2024 6:42 AM FLEET MANAGER) Pathologist [facility] Hemoglobin 8.7(L) 13.2 - 16.6 g/dL 01/03/2024 7:01 AM FLEET MANAGER MKTO Hematocrit 25.9(L) 38.3 - 48.6 % 01/03/2024 7:01 AM FLEET MANAGER MKTO Erythrocytes 2.91(L) 4.35 - 5.65 x10(12)/L 01/03/2024 7:01 AM FLEET MANAGER MKTO MCV 89.0 78.2 - 97.9 fL 01/03/2024 7:01 AM FLEET MANAGER MKTO RBC Distrib Width 15.2(H) 11.8 - 14.5 % 01/03/2024 7:01 AM FLEET MANAGER MKTO Platelet Count 419(H) 135 - 317 x10(9)/L 01/03/2024 7:01 AM FLEET MANAGER MKTO Leukocytes 24.2(H) 3.4 - 9.6 x10(9)/L 01/03/2024 7:01 AM FLEET MANAGER MKTO Neutrophils 22.28(H) 1.56 - 6.45 x10(9)/L 01/03/2024 7:01 AM FLEET MANAGER MKTO Lymphocytes 0.57(L) 0.95 - 3.07 x10(9)/L 01/03/2024 7:01 AM FLEET MANAGER MKTO Monocytes 1.15(H) 0.26 - 0.81 x10(9)/L 01/03/2024 7:01 AM FLEET MANAGER MKTO Eosinophils 0.09 0.03 - 0.48 x10(9)/L 01/03/2024 7:01 AM FLEET MANAGER MKTO Basophils 0.07 0.01 - 0.08 x10(9)/L 01/03/2024 7:01 AM FLEET MANAGER MKTO Blood (Blood, Venous) 01/03/2024 6:42 AM FLEET MANAGER 01/03/2024 6:55 AM FLEET MANAGER Octavio Cavazos, Ch.B. LAB BLOOD ADD-ON F inal Result [facility] [address] [place] [address], [place] MKTO [facility] [place] [address] [place] [address] * (ABNORMAL) Basic Metabolic Panel (01/03/2024 6:42 AM FLEET MANAGER) Potassium, P 2.8(L) 3.6 - 5.2 mmol/L 01/03/2024 7:46 AM FLEET MANAGER MKTO Sodium, P 140 135 - 145 mmol/L 01/03/2024 7:46 AM FLEET MANAGER MKTO Chloride, P 103 98 - 107 mmol/L 01/03/2024 7:46 AM FLEET MANAGER MKTO Bicarbonate, P 15(L) 22 - 29 mmol/L 01/03/2024 7:58 AM FLEET MANAGER MKTO Anion Gap, P 22(H) 7 - 15 01/03/2024 7:58 AM FLEET MANAGER MK[facility] BUN (Blood Urea Nitrogen), P 112(H) 8 - 24 mg/dL 01/03/2024 7:46 AM FLEET MANAGER MKTO Creatinine 3.76(H) 0.74 - 1.35 mg/dL 01/03/2024 7:46 AM FLEET MANAGER MKTO Estimated GFR (eGFR) 15(L) >=60 mL/min/BSA 01/03/2024 7:46 AM FLEET MANAGER MKTO Comment: Estimated GFR calculated using the 2020 CKD_EPI creatinine equation. Calcium, Total, P 7.7(L) 8.8 - 10.2 mg/dL 01/03/2024 7:46 AM FLEET MANAGER MKTO Glucose, P 81 70 - 140 mg/dL 01/03/2024 7:46 AM FLEET MANAGER MKTO Blood (Blood, Venous) 01/03/2024 6:42 AM FLEET MANAGER 01/03/2024 6:55 AM FLEET MANAGER us Octavio Cavazos, Ch.B. LAB BLOOD ADD-ON F inal Result [facility] [address] [place] [address], [facility] [place] [address] * Leukemia/Lymphoma Immunophenotyping by Flow Cytometry (01/03/2024 6:10 AM FLEET MANAGER) LCMS Result Performed 01/05/2024 1:37 PM FLEET MANAGER DTL Final Diagnosis: Pleural fluid, flow cytometric immunophenotyp ing: No monotypic B-cell population or increase in blasts identified. Reviewed by: Blank Crisostomo M.D. 01/05/2024 1:37 PM FLEET MANAGER DTL Special Studies: Results: Blasts: Not increased by CD45/side scatter and CD34. B-cells: Absence of HR82-sqvoldfn B cells. B-cell markers tested: CD19, CD10 and kappa and lambda surface light chains. T-cells/NK-joelle ls: No aberrant phenotype by CD3 and CD16. Quality assessment: Specimen received within validated guidelines. 01/05/2024 1:37 PM FLEET MANAGER DTL Microscopic Description A Hu-Giemsa- stained slide prepared from the flow cytometry specimen is examined. Morphology is suboptimal. 01/05/2024 1:37 PM FLEET MANAGER DTL Comment: ----ADDITIONAL INFORMATION---- This test was developed using an analyte specific reagent. Its performance characteristics were determined by [facility] in a manner consistent with CLIA requirements. This test has not been cleared or approved by the U.S. Food and Drug Administration. Fluid (Pleural Fluid, Right) 01/03/2024 6:10 AM FLEET MANAGER 01/04/2024 8:57 AM FLEET MANAGER Octavio Cavazos, ChElielB. LAB GENETIC TESTIN G Final Result [facility] [address] [place] [address], [place] [address] [facility] [address] [place] [address] * Cholesterol, Body Fluid (01/03/2024 6:10 AM FLEET MANAGER) Cholesterol, BF 34 See Comment mg/dL 01/05/2024 8:47 AM FLEET MANAGER DTL Comment: ----ADDITIONAL INFORMATION---- Pleural fluid cholesterol concentrations > 45 to 65 mg/dL are consistent with exudative effusions. Cholesterol concentrations > 200 mg/dL suggest pseudochylous effusions. Peritoneal fluid cholesterol concentrations > 32 to 70 mg/dL suggest a malignant cause of ascites. All other fluids refer to http://[email or web address] for further interpretive information. This test has been modified from the drafting detailer's instructions. Its performance characteristics were determined by [facility] in a manner consistent with CLIA requirements. This test has not been cleared or approved by the U.S. Food and Drug Administration. Fluid Type Pleural 01/05/2024 8:14 AM FLEET MANAGER DTL Fluid (Pleural Fluid, Right) 01/03/2024 6:10 AM FLEET MANAGER 01/05/2024 7:49 AM FLEET MANAGER Octavio Cavazos, Ch.B. LAB BODY FLUIDS AN D STOOLS ORDERABLES Final Result Performing Organization Address City/[facility]/ZIP Co de Phone Number [facility] [address] [place], [place] [id number] [place] [address] [facility] [address] [place] [address] * Glucose, Body Fluid (01/03/2024 6:10 AM FLEET MANAGER) Glucose, BF 134 See Comment mg/dL 01/05/2024 8:47 AM FLEET MANAGER DTL Comment: ----ADDITIONAL INFORMATION---- Body fluid [...] cystic lesions. All other fluids refer to [email or web address] for further interpretive information. This test has been modified from the drafting detailer's instructions. Its performance characteristics were determined by [facility] in a manner consistent with CLIA requirements. This test has not been cleared or approved by the U.S. Food and Drug Administration. Fluid Type, Glucose PLEURAL 01/04 8:14 AM FLEET MANAGER DTL Fluid (Pleural Fluid, Right) 01/03/2024 6:10 AM FLEET MANAGER 01/05/2024 7:49 AM FLEET MANAGER Octavio Cavazos, Ch.B. LAB BODY FLUIDS AN D STOOLS ORDERABLES Final Result Performing Organization Address City/[facility]/ZIP Co de Phone Number [facility] [address] [place] [address], [place] [facility] [address] [place] [address] * M tuberculosis Complex PCR (01/03/2024 6:10 AM FLEET MANAGER) MTB Complex PCR, Specimen Source Fluid, Pleural Fluid, Right 01/06/2024 7:45 PM FLEET MANAGER DTL MTB Complex PCR, Result Negative Not Applicable 01/06/2024 7:45 PM FLEET MANAGER DTL Comment: A mycobacterial culture must [...] developed and its performance characteristics determined by [facility] in a manner consistent with CLIA requirements. This test has not been cleared or approved by the U.S. Food and Drug Administration. Fluid (Pleural Fluid, Right) 01/03/2024 6:10 AM FLEET MANAGER 01/04/2024 10:24 AM FLEET MANAGER Octavio Cavazos, Ch.B. LAB MICROBIOLOGY - GENERAL ORDERABLES Final Result [facility] [address] [place] [address], [place] D[facility] 200 [facility] [address] [place] [address] * (ABNORMAL) Broad Range Bacteria PCR + Sequencing (01/03/2024 6:10 AM FLEET MANAGER) Pathologist [facility] Broad Range Bacteria PCR+Sequenci ng This test was developed and its performance characteristics determined by [facility] in a manner consistent with CLIA requirements. This test has not been cleared or approved by the U.S. Food and Drug Administration. (A) 01/12/2024 9:31 AM FLEET MANAGER DTL Broad Range Bacteria PCR+Sequenci ng STREPTOCOCCUS INTERMEDIUS DNA detected (A) 01/12/2024 9:31 AM FLEET MANAGER DTL Comment:Semi-Urgent Result. Semi-Urgent This is a semi-urgent result(AU[place]USTE) [facility] Fluid (Pleural Fluid, Right) 01/03/2024 6:10 AM FLEET MANAGER 01/04/2024 10:00 AM FLEET MANAGER Comment:Specimen Source Site : Fluid Octavio Cavazos, Ch.B. LAB MICROBIOLOGY - GENERAL ORDERABLES Final Result Performing Organization Address City/[facility]/ZIP Co de Phone Number [facility] [address] [place] [address], [facility] [address] [place] [address] * Bacterial Culture, Anaerobic + Susceptibility (01/03/2024 6:10 AM FLEET MANAGER) Bacterial Culture, Anaerobic No growth after 7 days of incubation. 01/10/2024 6:24 AM FLEET MANAGER [facility] Fluid (Pleural Fluid, Right) 01/03/2024 6:10 AM FLEET MANAGER 01/03/2024 5:08 PM FLEET MANAGER Comment:Specimen Source Site : Fluid Octavio Cavazos, Ch.B. LAB MICROBIOLOGY - GENERAL ORDERABLES Final Result Performing Organization Address City/[facility] Co de Phone Number [facility] [address] [place] [address], [place] [facility] [place] [address] [place] [address] * (ABNORMAL) Bacterial Culture, Aerobic + Susceptibility (01/03/2024 6:10 AM FLEET MANAGER) Bacterial Culture, Aerobic + Susc STREPTOCOCCUS ANGINOSUS GROUP 4+ (A) 01/06/2024 12:07 PM FLEET MANAGER [facility] Fluid (Pleural Fluid, Right) 01/03/2024 6:10 AM FLEET MANAGER 01/03/2024 5:08 PM FLEET MANAGER Comment:Specimen Source Site : Fluid Narrative [...] GENERAL ORDERABLES Final Result Performing Organization Address [facility] Co de Phone Number [facility] [address] [place] [address], [place] [address] * (ABNORMAL) Gram Stain (01/03/2024 6:10 AM FLEET MANAGER) Gram Stain White blood cells, Many.(A) 01/03/2024 5:33 PM FLEET MANAGER MKTO Gram Stain GRAM POSITIVE COCCI Many. (A) 01/03/2024 5:33 PM FLEET MANAGER MKTO Fluid (Pleural Fluid, Right) 01/03/2024 6:10 AM FLEET MANAGER 01/03/2024 5:08 PM FLEET MANAGER Comment:Specimen Source Site : Fluid Octavio Cavazos, Ch.B. LAB MICROBIOLOGY - GENERAL ORDERABLES Final Result Performing Organization Address [facility] Co de Phone Number [facility] [address] [place] [address] * Cell Count and Differential, Body Fluid (01/03/2024 6:10 AM FLEET MANAGER) Fluid Type Pleural/Tho racentesis 01/03/2024 6:21 PM FLEET MANAGER MKTO Gross Appearance Milky 01/03/20 6:22 PM FLEET MANAGER MKTO Total Nucleated Cells [id number] /[id number] 01/03/2024 6:22 PM FLEET MANAGER MKTO Comment: ----REFERENCE VALUE---- Synovial: <150 Peritoneal: <500 Pleural: <500 Pericardial: <500 ----ADDITIONAL INFORMATION---- This test has been modified from the drafting detailer's instructions. Its performance characteristics were determined by [facility] in a manner consistent with CLIA requirements. This test has not been cleared or approved by the U.S. Food and Drug Administration. Neutrophils 100 % 01/03/2024 6:21 PM FLEET MANAGER MKTO Comment: ----REFERENCE VALUE---- Synovial: <25% Peritoneal: <25% Pleural: <25% Pericardial: <25% Reviewed by: Dr. Rizvi 01/04/2024 8:06 AM FLEET MANAGER MKTO Comment: REVISED RESULTS ----PREVIOUSLY REPORTED ---- To be reviewed Flagged as: N/A (Reported 01/03/2024 18:22) Fluid (Pleural Fluid, Right) 01/03/2024 6:10 AM FLEET MANAGER 01/03/2024 5:08 PM FLEET MANAGER us Octavio Cavazos, Ch.B. LAB BODY F LUIDS AND STOOLS ORDERABLES Edited Result - Final [facility] [address] [place] [address], [place] MK[facility] [place] [address] [place] [address] * Protein, Total, Body Fluid (01/03/2024 6:10 AM FLEET MANAGER) Protein, Total, BF 0.9 See Comment g/dL 01/05/2024 8:47 AM FLEET MANAGER DTL Comment: ----ADDITIONAL INFORMATION---- A pleural [...] clinical findings. All other fluids refer to [email or web address].[email or web address] for further interpretive information. This test has been modified from the drafting detailer's instructions. Its performance characteristics were determined by [facility] in a manner consistent with CLIA requirements. This test has not been cleared or approved by the U.S. Food and Drug Administration. Fluid Type, Protein, Total PLEURAL 01/05/2024 8:14 AM FLEET MANAGER DTL Fluid (Pleural Fluid, Right) 01/03/2024 6:10 AM FLEET MANAGER 01/05/2024 7:49 AM FLEET MANAGER Octavio Cavazos, Ch.B. LAB BODY FLUIDS AN D STOOLS ORDERABLES Final Result [facility] [address] [place] [address], [facility] [address] [place] [address] * Lactate Dehydrogenase (LD), Body Fluid (01/03/2024 6:10 AM FLEET MANAGER) Lactate Dehydrogenase (LD), BF >9000 See Comment U/L 01/05/2024 5:08 PM FLEET MANAGER DTL Comment: ----ADDITIONAL INFORMATION---- Pleural fluid [...] clinical findings. All other fluids refer to www.Tripvi.[email or web address] for further interpretive information. This test has been modified from the drafting detailer's instructions. Its performance characteristics were determined by [facility] in a manner consistent with CLIA requirements. This test has not been cleared or approved by the U.S. Food and Drug Administration. Fluid Type, Lactate Dehydrogenase PLEURAL 01/05/2024 8:14 AM FLEET MANAGER DTL Fluid (Pleural Fluid, Right) 01/03/2024 6:10 AM FLEET MANAGER 01/05/2024 8:01 AM FLEET MANAGER Octavio Cavazos, Ch.B. LAB BODY FLUIDS AN D STOOLS ORDERABLES Final Result [facility] [address] [place] [address], [facility] [address] [place] [address] * DX Chest Portable 1 View (01/02/2024 3:59 PM FLEET MANAGER) Anatomical Region Laterality Modality Chest, Thoracic RST LOS, Tho racic ARZ LOS, Thoracic FLA LOS N/A Digital Radiography Impressions 01/02/2024 4:13 PM FLEET MANAGER Right jugular catheter terminates at the mid SVC. No pneumothorax. Narrative 01/02/2024 4:13 PM FLEET MANAGER EXAM: DX CHEST PORTABLE 1 VIEW COMPARISON: [...] DIAGNOSTIC IMAGI NG PROCEDURES Final Result * MT INS NON-BLAINE CVC >5YR, MT US GUIDE VASC ACCESS, LDA ANE CENTRAL LINE DOUBLE LUMEN ADULT, MC ANE CENTRAL LINE GENERIC PERFORMABLE (01/02/2024 3:47 PM FLEET MANAGER) Nikki Bentley M.D. - 01/02/2024 3:47 PM FLEET MANAGER Nikki Salinas M.D. 01/02/2024 3:50 PM [...] Final Result * Magnesium (01/02/2024 11:32 AM FLEET MANAGER) Magnesium, P 1.7 1.7 - 2.3 mg/dL 01/02/2024 2:38 PM FLEET MANAGER MKTO Blood (Blood, Venous) 01/02/2024 11:32 AM FLEET MANAGER 01/02/2024 2:24 PM FLEET MANAGER Octavio Cavazos, Ch.B. LAB BLOOD ADD-ON F inal Result [facility] [place] [address], [place] [facility] [place] [address] [place] [address] * (ABNORMAL) Basic Metabolic Panel (01/02/2024 11:32 AM FLEET MANAGER) Potassium, P 3.0(L) 3.6 - 5.2 mmol/L 01/02/2024 12:57 PM FLEET MANAGER MKTO Sodium, P 136 135 - 145 mmol/L 01/02/2024 12:57 PM FLEET MANAGER MKTO Chloride, P 102 98 - 107 mmol/L 01/02/2024 12:57 PM FLEET MANAGER MKTO Bicarbonate, P 11(L) 22 - 29 mmol/L 01/02/2024 1:11 PM FLEET MANAGER MKTO Anion Gap, P 23(H) 7 - 15 01/02/2024 1:11 PM FLEET MANAGER MKTO BUN (Blood Urea Nitrogen), P 156(H) 8 - 24 mg/dL 01/02/2024 1:11 PM FLEET MANAGER MKTO Creatinine 5.07(H) 0.74 - 1.35 mg/dL 01/02/2024 12:57 PM FLEET MANAGER MKTO Estimated GFR (eGFR) <15(L) >=60 mL/min/BSA 01/02/2024 12:57 PM FLEET MANAGER MKTO Comment: Estimated GFR calculated using the 2020 CKD_EPI creatinine equation. Calcium, Total, P 7.4(L) 8.8 - 10.2 mg/dL 01/02/2024 12:57 PM FLEET MANAGER MKTO Glucose, P 73 70 - 140 mg/dL 01/02/2024 12:57 PM FLEET MANAGER MKTO Blood (Blood, Venous) 01/02/2024 11:32 AM FLEET MANAGER 01/02/2024 12:25 PM FLEET MANAGER us Jet Palomares M.D. LAB BLOOD ADD-ON Final Result [facility] [address] [place] [address], [place] MK[facility] [place] [address] [place] [address] * US Kidneys Bilateral with Bladder (01/02/2024 10:15 AM FLEET MANAGER) Anatomical Region Laterality Modality Abdomen, Renal, Ultrasound R ST LOS, Ultrasound ARZ LOS, Ultrasound FLA LOS Bilateral Ultrasound Impressions 01/02/2024 10:57 AM FLEET MANAGER 1. No hydronephrosis. 2. Bilateral simple appearing renal cysts. Narrative 01/02/2024 10:57 AM FLEET MANAGER EXAM: US KIDNEYS BILATERAL WITH BLADDER [...] Chest Portable 1 View (01/02/2024 4:24 AM FLEET MANAGER) Anatomical Region Laterality Modality Chest, Thoracic RST LOS, Tho racic ARZ LOS, Thoracic FLA LOS N/A Digital Radiography Impressions 01/02/2024 4:28 AM FLEET MANAGER 1. Small right pleural effusion with associated atelectasis. Minimal left basilar atelectasis. Narrative 01/02/2024 4:28 AM FLEET MANAGER EXAM: DX CHEST PORTABLE 1 VIEW COMPARISON: [...] associated atelectasis. Minimal leftbasilar atelectasis. Deanna Lewis APRN C.N.P., D.N.P., M.S.N. IMG DIAGNOSTIC IMAGING PROCEDURES Final Result * CK (Creatine Kinase) (01/02/2024 4:10 AM FLEET MANAGER) Creatine Kinase, P 78 39 - 308 U/L 01/02/2024 9:49 AM FLEET MANAGER MKTO Blood (Blood, Venous) 01/02/2024 4:10 AM FLEET MANAGER 01/02/2024 9:30 AM FLEET MANAGER Jet Palomares M.D. LAB BLOOD ADD-ON Final Result Performing Organization Address City/[facility]/ZIP Co de Phone Number [facility] [address] [place] [address] * (ABNORMAL) Albumin (01/02/2024 4:10 AM FLEET MANAGER) [facility] Albumin, P 2.1(L) 3.5 - 5.0 g/dL 01/02/2024 4:37 AM FLEET MANAGER [facility] Blood (Blood, Venous) 01/02/2024 4:10 AM FLEET MANAGER 01/02/2024 4:10 AM FLEET MANAGER Deanna Lewis APRN, C.N.P., D.N.P., M.S.N. LAB B LOOD ADD-ON Final Result Performing Organization Address City/[facility]/ZIP Co de Phone Number [facility] [address] [place] [address] * (ABNORMAL) Calcium, Ionized (01/02/2024 4:10 AM FLEET MANAGER) Calcium, Ionized, B 4.08(L) 4.65 - 5.30 mg/dL 01/02/2024 4:14 AM FLEET MANAGER MKTO Blood 01/02/2024 4:10 AM FLEET MANAGER 01/02/2024 4:10 AM FLEET MANAGER Deanna Lewis APRN, C.N.P., D.N.P., M.S.N. LAB B LOOD NON ADD-ON Final Result [facility] [address] [place] [address], [place] [address] * (ABNORMAL) pH (01/02/2024 4:10 AM FLEET MANAGER) pH 7.29(L) 7.35 - 7.45 pH 01/02/2024 4:14 AM FLEET MANAGER TO Blood 01/02/2024 4:10 AM FLEET MANAGER 01/02/2024 4:10 AM FLEET MANAGER us Deanna Lewis APRN, C.N.P., D.N.P., M.S.N. LAB H ISTORICAL ORDERS Final Result Performing Organization Address City/[facility]/ZIP Co de Phone Number [facility] [address] [place] [address], [place] [address] * (ABNORMAL) Phosphorus Inorganic (01/02/2024 3:41 AM FLEET MANAGER) Phosphorus (Inorganic), P 6.3(H) 2.5 - 4.5 mg/dL 01/02/2024 6:25 AM FLEET MANAGER MKTO Blood (Blood, Venous) 01/02/2024 3:41 AM FLEET MANAGER 01/02/2024 6:13 AM FLEET MANAGER Scar Black APRN.N.P., D.N.P., M.S.N. LAB B LOOD ADD-ON Final Result [facility] [address] [place] [address], [facility] [address] [place] [address] * (ABNORMAL) Magnesium (01/02/2024 3:41 AM FLEET MANAGER) Magnesium, P 1.3(L) 1.7 - 2.3 mg/dL 01/02/2024 6:11 AM FLEET MANAGER MKTO Blood (Blood, Venous) 01/02/2024 3:41 AM FLEET MANAGER 01/02/2024 5:56 AM FLEET MANAGER Scar Black APRN.N.P., D.N.P., M.S.N. LAB B LOOD ADD-ON Final Result Performing Organization Address [facility]/ZIP Co de Phone Number [facility] [address] [place] [address], [facility] [place] [address] * Lactate, B (01/02/2024 3:41 AM FLEET MANAGER) Lactate, B 0.8 0.5 - 2.2 mmol/L 01/02/2024 4:47 AM FLEET MANAGER MKTO Blood (Blood, Venous) 01/02/2024 3:41 AM FLEET MANAGER 01/02/2024 4:45 AM FLEET MANAGER us Deanna Lewis APRN C.N.P., D.N.P., M.S.N. LAB B LOOD NON ADD-ON Final Result Performing Organization Address City/[facility]/ZIP Co de Phone Number [facility] [address] [place] [address], [address] [address] * (ABNORMAL) NT-Pro B-Type Natriuretic Peptide (BNP) (01/02/2024 3:41 AM FLEET MANAGER) [facility] NT-Pro BNP 2050(H) <=540 pg/mL 01/02/2024 5:01 AM FLEET MANAGER MKTO Comment: NT-proBNP values less than [...] failure. Blood (Blood, Venous) 01/02/2024 3:41 AM FLEET MANAGER 01/02/2024 4:45 AM FLEET MANAGER Deanna Lewis APRN, C.N.P., D.N.P., M.S.N. LAB B LOOD ADD-ON Final Result [facility] [address] [place] [address], [place] [address] * (ABNORMAL) Blood Gas with Coox, Venous (01/02/2024 3:41 AM FLEET MANAGER) [facility] pO2, Venous 49 Not applicable mm Hg 01/02/2024 4:14 AM FLEET MANAGER MKTO pCO2, Venous 29(L) 41 - 51 mm Hg 4:14 AM FLEET MANAGER MKTO pH, Venous 7.29(L) 7.32 - 7.43 pH 01/02/2024 4:14 AM FLEET MANAGER MKTO Base Excess, Venous -12 Not applicable mmol/L 01/02/2024 4:14 AM FLEET MANAGER MKTO HCO3, Venous 13 Not applicable mmol/L 01/02/2024 4:14 AM FLEET MANAGER MKTO Hemoglobin, Venous 9.6(L) 13.2 - 16.6 g/dL 01/02/2024 4:14 AM FLEET MANAGER MKTO O2Hb, Venous 79.4 Not applicable % 01/02/2024 4:14 AM FLEET MANAGER MKTO COHb, Venous 0.2 <3.0 % 01/02/2024 4:14 AM FLEET MANAGER MKTO MetHb, Venous 1.2 <1.5 % 01/02/2024 4:14 AM FLEET MANAGER MKTO CtO2, Venous 10.8 Not Applicable vol % 01/02/2024 4:14 AM FLEET MANAGER MKTO Blood (Blood, Venous) 01/02/2024 3:41 AM FLEET MANAGER 01/02/2024 4:05 AM FLEET MANAGER us Fautso Bey M.D. LAB BLOOD NON ADD-ON Final Resu lt Performing Organization Address City/[facility] Co de Phone Number [facility] [address] [place] [address] * (ABNORMAL) Osmolality (01/02/2024 3:41 AM FLEET MANAGER) Pathologist [facility] Osmolality, S 338(H) 276 - 306 mOsm/kg 01/02/2024 5:40 AM FLEET MANAGER MKTO Blood (Blood, Venous) 01/02/2024 3:41 AM FLEET MANAGER 01/02/2024 4:05 AM FLEET MANAGER us Fausto Bey M.D. LAB BLOOD ADD-ON Final Result Performing Organization Address City/[facility]/ZIP Co de Phone Number [facility] [address] [place] [address] * (ABNORMAL) CBC with Differential, Blood (01/02/2024 3:41 AM FLEET MANAGER) Pathologist [facility] Hemoglobin 9.3(L) 13.2 - 16.6 g/dL 01/02/2024 4:09 AM FLEET MANAGER MKTO Hematocrit 27.1(L) 38.3 - 48.6 % 01/02/2024 4:09 AM FLEET MANAGER MKTO Erythrocytes 3.04(L) 4.35 - 5.65 x10(12)/L 01/02/2024 4:09 AM FLEET MANAGER MKTO MCV 89.1 78.2 - 97.9 fL 01/02/2024 4:09 AM FLEET MANAGER MKTO RBC Distrib Width 15.2(H) 11.8 - 14.5 % 01/02/2024 4:09 AM FLEET MANAGER MKTO Platelet Count 480(H) 135 - 317 x10(9)/L 01/02/2024 4:09 AM FLEET MANAGER MKTO Leukocytes 26.6(H) 3.4 - 9.6 x10(9)/L 01/02/2024 4:09 AM FLEET MANAGER MKTO Neutrophils 24.68(H) 1.56 - 6.45 x10(9)/L 01/02/2024 4:09 AM FLEET MANAGER MKTO Lymphocytes 0.64(L) 0.95 - 3.07 x10(9)/L 01/02/2024 4:09 AM FLEET MANAGER MKTO Monocytes 1.15(H) 0.26 - 0.81 x10(9)/L 01/02/2024 4:09 AM FLEET MANAGER MKTO Eosinophils 0.08 0.03 - 0.48 x10(9)/L 01/02/2024 4:09 AM FLEET MANAGER MKTO Basophils 0.06 0.01 - 0.08 x10(9)/L 01/02/2024 4:09 AM FLEET MANAGER MKTO Blood (Blood, Venous) 01/02/2024 3:41 AM FLEET MANAGER 01/02/2024 4:05 AM FLEET MANAGER us Fausto Bey M.D. LAB BLOOD ADD-ON Final Result [facility] [address] [place] [address], [place] MKTO [facility] [place] [address] [place] [address] * (ABNORMAL) Basic Metabolic Panel (01/02/2024 3:41 AM FLEET MANAGER) Potassium, P 2.9(L) 3.6 - 5.2 mmol/L 01/02/2024 4:37 AM FLEET MANAGER MKTO Sodium, P 137 135 - 145 mmol/L 01/02/2024 4:37 AM FLEET MANAGER MKTO Chloride, P 102 98 - 107 mmol/L 01/02/2024 4:37 AM FLEET MANAGER MKTO Bicarbonate, P 12(L) 22 - 29 mmol/L 01/02/2024 4:43 AM FLEET MANAGER MKTO Anion Gap, P 23(H) 7 - 15 01/02/2024 4:43 AM FLEET MANAGER MKTO BUN (Blood Urea Nitrogen), P 157(H) 8 - 24 mg/dL 01/02/2024 4:50 AM FLEET MANAGER MKTO Creatinine 5.30(H) 0.74 - 1.35 mg/dL 01/02/2024 4:37 AM FLEET MANAGER MKTO Estimated GFR (eGFR) <15(L) >=60 mL/min/BSA 01/02/2024 4:37 AM FLEET MANAGER MKTO Comment: Estimated GFR calculated using the 2020 CKD_EPI creatinine equation. Calcium, Total, P 6.7(L) 8.8 - 10.2 mg/dL 01/02/2024 4:48 AM FLEET MANAGER MKTO Glucose, P 77 70 - 140 mg/dL 01/02/2024 4:37 AM FLEET MANAGER MKTO Blood (Blood, Venous) 01/02/2024 3:41 AM FLEET MANAGER 01/02/2024 4:05 AM FLEET MANAGER Fausto Bey M.D. LAB BLOOD ADD-ON Final Result [facility] [place] [address], [place] MKTO [facility] in [address] [address] * ECG 12 Lead (01/02/2024 12:39 AM FLEET MANAGER) Ventricular Rate ECG/Min 93 BPM MUSE MT Interval 164 ms MUSE QRSD Interval 138 ms MUSE QT Interval 424 ms MUSE QTC Interval 527 ms MUSE P [place] 48 degrees MUSE R [place] -84 degrees MUSE T Wave [place] 71 degrees MUSE 01/02/2024 12:3 9 AM FLEET MANAGER 01/02/2024 6:17 AM FLEET MANAGER Impressions MUSE - 01/02/2024 6:17 AM FLEET MANAGER Normal sinus rhythm Right bundle branch [...] Fausto Bey M.D. ECG ORDERABLES Final Result MUSE NA documented in this encounter Visit [...] hours all sources Given 01/11/2024 8:06 AM FLEET MANAGER 500 mg Given 01/07/2024 10:12 PM FLEET MANAGER 500 mg Given 01/07/2024 10:44 AM FLEET MANAGER 500 mg albumin human 25 % injection 12.5 g 12.5 g, intravenous, Once, On 01/02/24 at 0600, For 1 dose, If no infusion rate specified: Administer the 25% solution at 100 mL/hr New Bag 01/02/2024 5:44 AM FLEET MANAGER 12.5 g albumin human 5 % injection 37.5 g 37.5 g, intravenous, Once, On 01/02/24 at 1330, For 1 dose, If no infusion rate specified: Administer the 5% solution at 999 mL/hr or less if ICU/shock, otherwise infuse at 250 mL/hr. New Bag 01/02/2024 2:13 PM FLEET MANAGER 37.5 g alteplase 10 mg in NaCl 0.9% intrapleural solution 10 mg, intrapleural, Every 12 hours scheduled, First dose on e 01/05/24 at 1630, For 6 doses, Alteplase dose is instilled followed by 0.9% NaCl flush, then administer dornase dose followed by 0.9% NaCl flush. Clamp chest tube for 1 hour then unclamped and drained for 2 hours. Given 01/08/2024 8:32 AM FLEET MANAGER 10 m g Given 01/07/2024 9:35 PM FLEET MANAGER 10 mg Given 01/07/2024 9:33 AM FLEET MANAGER 10 mg ampicillin-sulbactam 3 g in NaCl 0.9% IVPB (Unasyn) 3 g, intravenous, at 400 mL/hr, Administer over 15 Minutes, Every 12 hours, First dose on [facility] 01/07/24 at 0800, Mini-Bag Plus bag, Drug Monitoring Program: Pharmacist to adjust medication dosing based on indication and drug clearance factors., Indications: Respiratory tract infection, community acquiredIndications:Respiratory tract infection, community acquired New Bag 01/09/2024 7:37 AM FLEET MANAGER 3 g 4 00 mL/hr New Bag 01/08/2024 8:45 PM FLEET MANAGER 3 g 400 mL/hr New Bag 01/08/2024 8:30 AM FLEET MANAGER 3 g 400 mL/hr ampicillin-sulbactam 3 g in NaCl 0.9% IVPB (Unasyn) 3 g, intravenous, at 400 mL/hr, Administer over 15 Minutes, Every 12 hours scheduled, First dose (after last modification) on [facility] 01/09/24 at 2100, Mini-Bag Plus bag, Drug Monitoring Program: Pharmacist to adjust medication dosing based on indication and drug clearance factors., Indications: Respiratory tract infection, community acquiredIndications:Respiratory tract infection, community acquired New Bag 01/11/2024 8:06 AM FLEET MANAGER 3 g 4 00 mL/hr New Bag 01/10/2024 9:26 PM FLEET MANAGER 3 g 400 mL/hr New Bag 01/10/2024 9:20 AM FLEET MANAGER 3 g 400 mL/hr barium 40 % (w/v), 30% (w/w) paste 15 mL (Varibar Pudding) 15 mL, oral, Once in imaging, contrast, For video swallow, Starting on Thu01/11/24 at 1340, For 1 dose, Imaging Protocol Orders Given 01/11/2024 12:45 PM FLEET MANAGER 15 mL barium 81 % (w/w) oral powder for suspension 24 g (Varibar Thin Liquid) 24 g (60 mL), oral, Once in imaging, contrast, Starting on Thu01/11/24 at 1340, For 1 dose, Imaging Protocol Orders Given 01/11/2024 12:45 PM FLEET MANAGER 24 g calcium gluc in NaCl, iso [...] intravenous catheter. New Bag 01/02/2024 5:09 AM FLEET MANAGER 2 g 400 mL/hr cefTRIAXone injection 2 g (Rocephin) 2 g, intravenous, Daily, First dose on Thu01/03/24 at 1030, If needed, reconstitute vial per package insert instructions. See IVAG for administration guidelines., Drug Monitoring Program: Pharmacist to adjust medication dosing based on indication and drug clearance factors., Indications: Respiratory tract infection, community acquiredIndications:Respiratory tract infection, community acquired Given 01/06/2024 8:38 AM FLEET MANAGER 2 g Given 01/05/2024 8:21 AM FLEET MANAGER 2 g Given 01/04/2024 8:04 AM FLEET MANAGER 2 g dornase ember 5 mg in sterile water intrapleural solution 5 mg, intrapleural, Every 12 hours scheduled, First dose on Thu01/05/24 at 1630, For 6 doses, Alteplase dose is instilled followed by 0.9% NaCl flush, then administer dornase dose followed by 0.9% NaCl flush. Clamp chest tube for 1 hour then unclamped and drained for 2 hours. Given 01/08/2024 8:32 AM FLEET MANAGER 5 mg Given 01/07/2024 9:35 PM FLEET MANAGER 5 mg Given 01/07/2024 9:34 AM FLEET MANAGER 5 mg doxycycline 100 mg in NaCl 0.9% IVPB (Vibramycin) 100 mg, intravenous, at 100 mL/hr, Administer over 60 Minutes, Every 12 hours scheduled, First dose on Thu01/03/24 at 1030, Mini-Bag Plus bag, Indications: Respiratory tract infection, community acquiredIndications:Respiratory tract infection, community acquired New Bag 01/05/2024 8:20 AM FLEET MANAGER 100 m g 100 mL/hr New Bag 01/04/2024 8:55 PM FLEET MANAGER 100 mg 100 mL/hr New Bag 01/04/2024 8:04 AM FLEET MANAGER 100 mg 100 mL/hr gabapentin capsule 100 mg (Neurontin) 100 mg, oral, 3 times daily, First dose on Thu01/10/24 at 1045 Given 01/11/2024 8:06 AM FLEET MANAGER 100 mg Given 01/10/2024 9:24 PM FLEET MANAGER 100 mg Given 01/10/2024 10:47 AM FLEET MANAGER 100 mg heparin (porcine) injection 5,000 Units 5,000 Units, subcutaneous, Every 8 hours scheduled, First dose on Thu01/01/24 at 2200 Given 01/04/2024 5:54 AM FLEET MANAGER 5,000 Units Left Upper Abdomen Given 01/03/2024 9:09 PM FLEET MANAGER 5,000 Units L eft Lower Abdomen Given 01/03/2024 5:55 AM FLEET MANAGER 5,000 Units L eft Upper Abdomen heparin (porcine) injection 5,000 Units 5,000 Units, subcutaneous, Every 8 hours scheduled, First dose (after last modification) on Thu01/05/24 at 2200 Given 01/11/2024 6:41 AM FLEET MANAGER 5,000 Units Right Lower Abdomen Given 01/10/2024 9:24 PM FLEET MANAGER 5,000 Units L eft Lower Abdomen Given 01/10/2024 3:51 PM FLEET MANAGER 5,000 Units L eft Lower Abdomen Lactated Ringer's bolus 250 mL 250 mL, intravenous, at 250 mL/hr, Administer over 1 Hours, Once, On 01/02/24 at 0130, For 1 dose New Bag 01/02/2024 1:21 AM FLEET MANAGER 250 mL 250 mL/hr Lactated Ringer's bolus 250 mL 250 mL, intravenous, at 250 mL/hr, Administer over 1 Hours, Once, On Thu01/02/24 at 0400, For 1 dose New Bag 01/02/2024 3:49 AM FLEET MANAGER 250 mL 250 mL/hr lidocaine (PF) 10 mg/mL (1 %) injection 10 mL (Xylocaine) 10 mL, subcutaneous, Once, On Thu01/03/24 at 1657, For 1 dose Given 01/03/2024 4:57 PM FLEET MANAGER 10 mL Right Chest lidocaine-sodium bicarbonate (buffered) 0.9%-0.84% injection infiltration, As needed, Starting on Thu01/05/24 at 1335, Intra-Op Given 01/05/2024 1:35 PM FLEET MANAGER 10 mL magnesium sulfate in D5W IVPB 1 g 1 g, intravenous, at 100 mL/hr, Administer over 60 Minutes, Once, On Thu01/08/24 at 0815, For 1 dose New Bag 01/08/2024 8:30 AM FLEET MANAGER 1 g 100 mL/hr magnesium sulfate in D5W IVPB 1 g 1 g, intravenous, at 100 mL/hr, Administer over 60 Minutes, Once, On Thu01/10/24 at 0830, For 1 dose New Bag 01/10/2024 10:42 AM FLEET MANAGER 1 g 100 mL/hr magnesium sulfate in water IVPB 2 g 2 g, intravenous, at 25 mL/hr, Administer over 120 Minutes, Once, On Thu01/02/24 at 0645, For 1 dose New Bag 01/02/2024 6:43 AM FLEET MANAGER 2 g 25 mL/hr magnesium sulfate in water IVPB 2 g 2 g, intravenous, at 25 mL/hr, Administer over 120 Minutes, Once, On Thu01/06/24 at 0645, For 1 dose New Bag 01/06/2024 6:36 AM FLEET MANAGER 2 g 25 mL/hr melatonin tablet 3 mg 3 mg, oral, Bedtime PRN, sleep, Starting on Thu01/04/24 at 2015 Given 01/07/2024 10:12 PM FLEET MANAGER 3 mg metroNIDAZOLE tablet 500 mg (FlagyL) 500 mg, oral, 3 times daily, First dose on Thu01/05/24 at 1130, Drug Monitoring Program: Pharmacist to adjust medication dosing based on indication and drug clearance factors., Indications: Respiratory tract infection, community acquiredIndications:Respirat ory tract infection, community acquired Given 01/06/2024 9:14 PM FLEET MANAGER 500 mg Given 01/06/2024 1:53 PM FLEET MANAGER 500 mg Given 01/06/2024 8:37 AM FLEET MANAGER 500 mg midodrine tablet 10 mg (ProAmatine) 10 mg, oral, Daily PRN, SBP below 90 during dialysis, Starting on 01/02/24 at 1625 Given 01/03/2024 9:24 AM FLEET MANAGER 10 mg ccrgfyolvnhv-ohxo-KX-Ca-min erals 400 mcg (folic acid) tablet 1 tablet 1 tablet, oral, Daily, First dose on Thu01/11/24 at 0900 Given 01/11/2024 8:06 AM FLEET MANAGER 1 tablet NaCl 0.9% infusion 75 mL/hr, intravenous, Continuous, Starting on Thu01/01/24 at 2145, For 24 hours Rate/Dose Verify 01/02/2024 10:14 AM FLEET MANAGER 75 mL/hr 75 mL/hr Rate/Dose Verify 01/02/2024 8:01 AM FLEET MANAGER 75 mL/hr 75 mL/h r Rate/Dose Verify 01/02/2024 7:52 AM FLEET MANAGER 75 mL/hr 75 mL/h r oxyCODONE IR tablet 10 mg (Roxicodone) 10 mg, oral, Every 4 hours PRN, severe pain or score 7-10 of 10, Starting on Thu01/01/24 at 2119 Given 01/04/2024 11:25 PM FLEET MANAGER 10 mg oxyCODONE IR tablet 5 mg (Roxicodone) 5 mg, oral, Every 4 hours PRN, moderate pain or score 4-6 of 10, Starting on Thu01/01/24 at 2119 Given 01/09/2024 9:10 PM FLEET MANAGER 5 mg Given 01/08/2024 9:45 PM FLEET MANAGER 5 mg Given 01/08/2024 10:04 AM FLEET MANAGER 5 mg perflutren lipid microspheres injection (Definity) intravenous, Once in imaging, contrast, Starting on Thu01/04/24 at 1032, For 1 dose, Intraprocedure - Diagnostic, See protocol. Given 01/04/2024 10:15 AM FLEET MANAGER 2 mL potassium chloride ER tablet 40 mEq 40 mEq, oral, Every 6 hours, First dose on Thu01/02/24 at 1330, For 2 doses, Swallow whole. Do NOT crush, chew, or split tablet. Given 01/02/2024 2:[address] 40 mEq potassium chloride ER tablet 40 mEq 40 mEq, oral, Once, On 01/03/24 at 0845, For 1 dose, Swallow whole. Do NOT crush, chew, or split tablet. Given 01/03/2024 8:32 AM FLEET MANAGER 40 mEq potassium chloride ER tablet 40 mEq 40 mEq, oral, Once, On 01/03/24 at 1600, For 1 dose, Swallow whole. Do NOT crush, chew, or split tablet. Given 01/03/2024 9:11 PM FLEET MANAGER 40 mEq potassium chloride ER tablet 40 mEq 40 mEq, oral, Once, On 01/06/24 at 0645, For 1 dose, Swallow whole. Do NOT crush, chew, or split tablet. Given 01/06/2024 6:33 AM FLEET MANAGER 40 mEq potassium chloride ER tablet 40 mEq 40 mEq, oral, 2 times daily with meals, First dose on Beata 01/07/24 at 0800, For 2 doses, Swallow whole. Do NOT crush, chew, or split tablet. Given 01/07/2024 4:54 PM FLEET MANAGER 40 mEq Given 01/07/2024 9:33 AM FLEET MANAGER 40 mEq potassium chloride IVPB 10 mEq 10 mEq, intravenous, at 100 mL/hr, Administer over 60 Minutes, Every 1 hour, First dose on Thu01/01/24 at 2200, For 4 doses, For K<3 mEq/L - give total of 40 mEq, Monitor the following for replacement: Potassium, Replace Potassium per: Standard Schedule New Bag 01/02/2024 1:21 AM FLEET MANAGER 10 mEq 100 mL/hr New Bag 01/02/2024 12:16 AM FLEET MANAGER 10 mEq 100 mL/hr New Bag 01/01/2024 11:22 PM FLEET MANAGER 10 mEq 100 mL/hr potassium chloride IVPB 10 mEq 10 mEq, intravenous, at 100 mL/hr, Administer over 60 Minutes, Every 1 hour, First dose on Thu01/02/24 at 0600, For 4 doses, Peripheral Line: 10 mEq per bag over 1 hour each. New Bag 01/02/2024 9:00 AM FLEET MANAGER 10 mEq 100 mL/hr New Bag 01/02/2024 7:56 AM FLEET MANAGER 10 mEq 100 mL/hr New Bag 01/02/2024 6:19 AM FLEET MANAGER 10 mEq 100 mL/hr potassium chloride IVPB 10 mEq 10 mEq, intravenous, at 100 mL/hr, Administer over 60 Minutes, Every 1 hour, First dose (after last reorder) on Thu01/03/24 at 0915, For 4 doses, Peripheral Line: 10 mEq per bag over 1 hour each. New Bag 01/03/2024 9:06 AM FLEET MANAGER 10 mEq 1 00 mL/hr potassium phosphate in NaCl 0.9% IVPB 15 mmol 15 mmol, intravenous, at 114 mL/hr, Administer over 2.2 Hours, Once, On Thu01/08/24 at 0815, For 1 dose, Peripheral Line: Administrater at 6.8 mmoL phosphate/hr New Bag 01/08/2024 10:04 AM FLEET MANAGER 15 mmol 114 mL/hr prochlorperazine injection 5 mg (Compazine) 5 mg, intravenous, Every 6 hours PRN, vomiting, nausea, Starting on Thu01/01/24 at 2119 Given 01/04/2024 7:59 AM FLEET MANAGER 5 mg Given 01/03/2024 9:14 PM FLEET MANAGER 5 mg sodium bicarbonate injection 50 mEq 50 mEq, intravenous, Once, On Thu01/02/24 at 1000, For 1 dose Given 01/02/2024 12:04 PM FLEET MANAGER 50 mEq sodium bicarbonate tablet 1,300 mg 1,300 mg, oral, 3 times daily, First dose (after last modification) on Thu01/02/24 at 1400 Given 01/02/2024 2:08 PM FLEET MANAGER 1,300 mg sodium bicarbonate tablet 650 mg 650 mg, oral, 2 times daily, First dose on Thu01/01/24 at 2200 Given 01/02/2024 7:56 AM FLEET MANAGER 650 mg Given 01/01/2024 10:19 PM FLEET MANAGER 650 mg sodium chloride 0.9 % flush 1-250 mL 1-250 mL, intravenous, As needed, line care, For priming and rinse back post dialysis, Starting on Thu01/04/24 at 1440, Dialysis, Dialysis order only. Given 01/04/2024 5:46 PM FLEET MANAGER 200 mL Given 01/04/2024 2:28 PM FLEET MANAGER 200 mL sodium chloride 0.9 % injection 10 mL 10 mL, intravenous, As needed, line care, Starting on Thu01/04/24 at 1032, Prior to and following infusion and between multiple consecutive infusions: sodium chloride 0.9 % injection Given 01/04/2024 10:20 AM FLEET MANAGER 10 mL sodium chloride 0.9 % injection 3 mL 3 mL, intravenous, As needed, line care, Starting on Thu01/01/24 at 2118, Prior to and following infusion and between multiple consecutive infusions: sodium chloride 0.9 % injection Given 01/09/2024 9:33 PM FLEET MANAGER 3 mL sodium chloride 0.9 % injection 3 mL 3 mL, intravenous, Every 12 hours scheduled, First dose on Thu01/02/24 at 0900, Peripheral Intravenous Catheter and Rapid Infusion Catheter, when no infusion to maintain patency Given 01/10/2024 9:26 PM FLEET MANAGER 3 mL Given 01/10/2024 9:19 AM FLEET MANAGER 3 mL Given 01/09/2024 9:37 PM FLEET MANAGER 3 mL sodium chloride 0.9 % injection 5 mL 5 mL, miscellaneous, Every 12 hours scheduled, First dose on Thu01/05/24 at 2100, For 6 doses, Alteplase dose is instilled followed by 0.9% NaCl flush, then administer dornase dose followed by 0.9% NaCl flush. Clamp chest tube for 1 hour then unclamped and drained for 2 hours. Given 01/08/2024 8:34 AM FLEET MANAGER 5 mL Given 01/07/2024 9:00 PM FLEET MANAGER 5 mL Given 01/07/2024 9:34 AM FLEET MANAGER 5 mL sodium chloride 0.9 % injection 5 mL 5 mL, miscellaneous, Every 12 hours scheduled, First dose on Thu01/05/24 at 2100, For 6 doses, Alteplase dose is instilled followed by 0.9% NaCl flush, then administer dornase dose followed by 0.9% NaCl flush. Clamp chest tube for 1 hour then unclamped and drained for 2 hours. Given 01/08/2024 8:45 AM FLEET MANAGER 5 mL Given 01/07/2024 9:38 PM FLEET MANAGER 5 mL Given 01/07/2024 9:36 PM FLEET MANAGER 5 mL documented in this encounter Active and Recently Administered Medications Times are shown in FLEET MANAGER. Scheduled Medication Order 01/09/2024 01/10/2024 01/11/2024 ampicillin-sulbactam 3 g in NaCl 0.9% IVPB (Unasyn) (CANCELED) 3 g, intravenous, at 400 mL/hr, Administer over 15 Minutes, Every 12 hours, First dose on Beata 01/07/24 at 0800, Mini-Bag Plus bag, Drug Monitoring Program: Pharmacist to adjust medication dosing based on indication and drug clearance factors., Indications: Respiratory tract infection, community acquired 0737 (New Bag - Provider: Beck Huff, R.N.) [...] 2053 (New Bag - Provider: Elenita Montiel RElielN.) 0920 (New Bag - Provider: Beck Huff, R.N.)212 (New Bag - Provider: Margy Waters R.N.) 0806 (New Bag - Provider: Salina Yu RElielN.) gabapentin capsule 100 mg (Neurontin) 100 mg, oral, 3 times daily, First dose on Thu01/10/24 at 1045 1047 (Given - Provider: Beck Huff, R.N.)212 (Given - Provider: Margy Waters R.N.) 0806 (Given - Provider: Xander DavisNEliel)1400 (Due) heparin (porcine) injection 5,000 Units 5,000 Units, subcutaneous, Every 8 hours scheduled, First dose (after last modification) on Thu01/05/24 at 2200 0559 (Given - Provider: Olegario Oconnor R.N.)1449 (Given - Provider: Gisela Concepcion M.S.NEliel, R.N.)2101 (Given - Provider: Elenita Montiel R.N.) 0535 (Given - Provider: Elenita Montiel R.N.)1551 (Given - Provider: Beck Huff, R.N.)2124 (Given - Provider: Margy Waters R.N.) 0641 (Given - Provider: Margy Waters R.N.)1400 (Due) magnesium sulfate in D5W IVPB 1 g (COMPLETED) 1 g, intravenous, at 100 mL/hr, Administer over 60 Minutes, Once, On Thu01/10/24 at 0830, For 1 dose 1042 (New Bag - Provider: Beck Huff, R.N. - Comment: lost IV access) jzpxqtxrwtiu-jqdn-IV-C a-minerals 400 mcg (folic acid) tablet 1 tablet 1 tablet, oral, Daily, First dose on Thu01/11/24 at 0900 0806 (Given - Provider: Salina Yu R.N.) sodium chloride 0.9 % injection 3 mL 3 mL, intravenous, Every 12 hours scheduled, First dose on 01/02/24 at 0900, Peripheral Intravenous Catheter and Rapid Infusion Catheter, when no infusion to maintain patency 0900 (Given - Provider: Beck Huff, R.N.)213 (Given - Provider: Elenita Montiel R.N.) 0919 (Given - Provider: Beck Huff, R.N.)212 (Given - Provider: Margy Waters R.N.) 0900 (Canceled Entry - Provider: Salina Yu R.N.) PRN Medication Order 01/09/2024 01/10/2024 01/11/2024 acetaminophen tablet 500 mg (TylenoL) 500 mg, oral, Every 6 hours PRN, mild pain or score 1-3 of 10, headaches, fever, Starting on Thu01/01/24 at 2119, Not to exceed 4 grams of acetaminophen in 24 hours all sources 0806 (Given - Provid er: Salina Yu R.N.) barium 40 % (w/v), 30% (w/w) paste 15 mL (Varibar Pudding) (COMPLETED) 15 mL, oral, Once in imaging, contrast, For video swallow, Starting on Thu01/11/24 at 1340, For 1 dose, Imaging Protocol Orders 1245 (Given - Provid er: Ashly Valdez(R)) barium 81 % (w/w) oral powder for suspension 24 g (Varibar Thin Liquid) (COMPLETED) 24 g (60 mL), oral, Once in imaging, contrast, Starting on Thu01/11/24 at 1340, For 1 dose, Imaging Protocol Orders 1245 (Given - Provid er: Ashly Valdez(R)) bisacodyL suppository 10 mg (Dulcolax) 10 mg, [...] during dialysis, Starting on 01/02/24 at 1625 naloxone injection 0.1 mg 0.1 [...] 2118 documented in this encounter Care Teams Air Hoist Operator Relationship Specialty Start Date End Date Elsewhere, Pcp PCP - General Internal Medicine 01/04/24 documented as of this encounter
--- OUTSIDE RECORDS SUMMARY | 2024-01-26 10:56 | XMS_ITS | Encounter Summary ---
Author Organization [facility] Address [address] [place] [address] Care Team Providers Care Accountant Assistant Name Role Phone Unavailable Primary Care Provider Unavailabl e Encounter Details Date Type Department Care Team (Late st Contact Info) Description 01/02/2024 3:30 PM AUDIOVISUAL LEAD TECHNICIAN Ancillary Procedure Department of General Surgery Social History Tobacco Use Types Packs/Day Years Used Date Smoking Tobacco: Never Assessed Dental Answer Date Recorded Dental: Regular Dentist Unknown 12/25/19 23 Sex and Gender Information Value Date Recorded Sex Assigned at Not on file Legal Sex Male 3:31 PM AUDIOVISUAL LEAD TECHNICIAN Gender Identity Not on file Sexual Orientation Not on file documented as of this encounter Plan of Treatment Not on file documented as of this encounter Procedures Procedure Name Priority Date/Time Associated Diagnosis Comments GENERAL SURGERY IMAGE EXAM Routine 01/02/2024 3:30 PM AUDIOVISUAL LEAD TECHNICIAN documented in this encounter Results * Non-Radiology Image-General Surgery Image Exam (01/02/2024 3:30 PM AUDIOVISUAL LEAD TECHNICIAN) Narrative [facility] - 01/06/2024 8:53 PM AUDIOVISUAL LEAD TECHNICIAN This order has been created and auto-finalized [...]
--- OUTSIDE RECORDS SUMMARY | 2024-01-26 10:56 | XMS_ITS | Encounter Summary ---
Author Organization [facility] Address [address] [place] [address] Care Team Providers Care Hot Oiler Name Role Phone Elsewhere, Pcp Primary Care Provider Unavailabl e Reason for Referral * MRI/CAT/PET Scan (Routine) - Authorized Specialty Diagnoses / Procedures Referred By Contac t Referred To Contact Radiology Diagnoses Pneumonia Procedures CT Chest with IV Contrast Sarah Perry M.D. [address] [place] [phone] Phone: tel: fax: [facility] Referral ID Status Reason Start Date Expiration Date V isits Requested Visits Authorized [id number] Authorized 01/08/2024 01/07/2025 1 1 UCT DESIGN MANAGER * Outpatient (Routine) - Authorized Specialty Diagnoses / Procedures Referred By Contjosias t Referred To Contact Infectious Diseases Sarah Perry M.D. [address] [place] [phone] Phone: tel: fax: [facility] Referral ID Status Reason Start Date Expiration Date V isits Requested Visits Authorized [id number] Authorized 01/08/2024 07/09/2025 1 1 Scheduling Instructions Please schedule 30 min post hospital follow up with repeat chest CT prior. Thank you UCT DESIGN MANAGER Encounter Details Date Type Department Care Team (Late st Contact Info) Description 01/08/2024 Orders Only Department of Infectious Diseases in [place], [place] [address] [place] [address] Letty Sneed R.N. [address] [place] [phone] Pneumonia (Primary Dx) Social History Tobacco Use Types Packs/Day Years Used Date Smoking Tobacco: Never Assessed [facility] Utilities Answer Date Recorded In the past [...] on file Legal Sex Male 3:31 PM PRODUCT DESIGN MANAGER Gender Identity Not on file Sexual Orientation Not on file documented as of this encounter Plan of Treatment Scheduled Orders [...] Primary documented in this encounter Care Teams Hot Oiler Relationship Specialty Start Date End Date Elsewhere, Pcp PCP - General Internal Medicine 01/04/24 documented as of this encounter
--- OUTSIDE RECORDS SUMMARY | 2024-01-26 10:56 | XMS_ITS | Encounter Summary ---
Author Organization [facility] Address [address] [place] [address] Care Team Providers Care Psychiatric Lpn Name Role Phone Elsewhere, Pcp Primary Care Provider Unavailabl e Encounter Details Date Type Department Care Team (Late st Contact Info) Description 01/07/2024 Clinical Communication Department of Infectious Diseases in [address] [phone] Stacy Esposito R.N. Social History Tobacco Use Types Packs/Day Years Used Date Smoking Tobacco: Never Assessed Dental Answer Date Recorded Dental: Regular Dentist Unknown 12/25/19 23 Sex and Gender Information Value Date Recorded Sex Assigned at Not on file Legal Sex Male 3:31 PM ACIDIZER WATER WELL Gender Identity Not on file Sexual Orientation Not on file documented as of this encounter Plan of Treatment Not on file documented as of this encounter Visit Diagnoses Diagnosis Pneumonia- Primary documented in this encounter Care Teams Psychiatric Lpn Relationship Specialty Start Date End Date Elsewhere, Pcp PCP - General Internal Medicine 01/04/24 documented as of this encounter
--- OUTSIDE RECORDS SUMMARY | 2024-01-26 10:56 | XMS_ITS | Encounter Summary ---
Author Organization [facility] Address [address] [place] [address] Care Team Providers Care Web Coordinator Name Role Phone Elsewhere, Pcp Primary Care Provider Unavailabl e Encounter Details Date Type Department Care Team (Late st Contact Info) Description 01/08/2024 Clinical Communication Department of Infectious Diseases in [place], [place] [address] [place] [phone] Letty Sneed, RElielNEliel [address] [place] [phone] Social History Tobacco Use Types Packs/Day Years Used Date Smoking Tobacco: Never Assessed Dental Answer Date Recorded Dental: Regular Dentist Unknown 12/25/19 23 Sex and Gender Information Value Date Recorded Sex Assigned at Not on file Legal Sex Male 3:31 PM CLAY THROWER Gender Identity Not on file Sexual Orientation Not on file documented as of this encounter Plan of Treatment Not on file documented as of this encounter Visit Diagnoses Not on filedocumented in this encounter Care Teams Web Coordinator Relationship Specialty Start Date End Date Elsewhere, Pcp PCP - General Internal Medicine 01/04/24 documented as of this encounter
--- OUTSIDE RECORDS SUMMARY | 2024-01-26 10:56 | XMS_ITS | Encounter Summary ---
Author Organization [facility] Address [address] [place] [address] Care Team Providers Care Director Of Compliance Name Role Phone Elsewhere, Pcp Primary Care Provider Unavailabl e Encounter Details Date Type Department Care Team (Late st Contact Info) Description 01/04/2024 7:40 PM LOGISTIC SPECIALIST Ancillary Procedure Department of Nursing Social History Tobacco Use Types Packs/Day Years Used Date Smoking Tobacco: Never Assessed Dental Answer Date Recorded Dental: Regular Dentist Unknown 12/25/19 23 Sex and Gender Information Value Date Recorded Sex Assigned at Not on file Legal Sex Male 3:31 PM LOGISTIC SPECIALIST Gender Identity Not on file Sexual Orientation Not on file documented as of this encounter Plan of Treatment Not on file documented as of this encounter Procedures Procedure Name Priority Date/Time Associated Diagnosis Comments NURSING IMAGE EXAM Routine 01/04/2024 7: 40 PM LOGISTIC SPECIALIST documented in this encounter Results * Ankle, Right-Nursing Image Exam (01/04/2024 7:40 PM LOGISTIC SPECIALIST) 01/04/2024 7:39 PM LOGISTIC SPECIALIST Narrative [facility]IM[facility] - 01/04/2024 7:42 PM LOGISTIC SPECIALIST This order has been created and auto-finalized to support the import of images acquired without order. The clinical documentation to support these images can be found on the encounter that produced images. us Provider Not In System IMG NON RAD IMAGING PROCE DURES Final Result [facility] NA documented in this encounter Visit Diagnoses Not on filedocumented in this encounter Care Teams Director Of Compliance Relationship Specialty Start Date End Date Elsewhere, Pcp PCP - General Internal Medicine 01/04/24 documented as of this encounter
--- OUTSIDE RECORDS SUMMARY | 2024-01-26 10:56 | XMS_ITS | Encounter Summary ---
Author Organization [facility] Address [address] [place] [address] Care Team Providers Care Supervisor Asbestos Textile Name Role Phone Elsewhere, Pcp Primary Care [...] on file Legal Sex Male 3:31 PM INVESTMENT UNDERWRITER Gender Identity Not on file Sexual Orientation Not on file documented as of this encounter Plan of Treatment Not on file documented as of this encounter Visit Diagnoses Not on filedocumented in this encounter Care Teams Supervisor Asbestos Textile Relationship Specialty Start Date End Date Elsewhere, Pcp PCP - General Internal Medicine 01/04/24 documented as of this encounter
--- OUTSIDE RECORDS SUMMARY | 2024-01-26 10:56 | XMS_ITS | Clinical Summary ---
Author Organization [facility] Address [place], [place] [address] Care Team Providers Care Academic Coach Name Role Phone Tate Bear DO Primary Care Provide r Allergies Active Allergy Reactions Criticality Noted Date Comments Sulfamethoxazole-Trimethoprim *Unknown Ciprofloxacin *Unknown Pravastatin *Unknown Medications cholecalciferol, Vitamin D3, 2,000 unit tablet Take 2,000 units by mouth once daily. Active multivitamin (MVI) tablet Take 1 Tablet by mouth once daily. Active omeprazole (PRILOSEC) 20 mg Delayed-Release capsuleIndications: Chronic GERD TAKE 1 CAPSULE BY MOUTH ONCE DAILY NEEDED FOR GI UPSET 90 Capsule 3 3 Active diphenoxylate-atrop ine, 2.5-0.025 mg, (LOMOTIL) 2.5-0.025 mg tabletIndications:C hronic diarrhea 1 tablet p.o. twice daily to 3 times daily as needed diarrhea 60 Tablet 3 4 Active montelukast (SINGULAIR) 10 mg tabletIndications:C hronic diarrhea Take 1 Tablet (10 mg) by mouth at bedtime. 30 Tablet 3 4 Active furosemide (LASIX) 20 mg tabletIndications:S tage 3b chronic kidney disease (HC),Edema, unspecified type Take 3 tablets by mouth once daily 270 Tablet 3 4 Active atorvastatin (LIPITOR) 10 mg tabletIndications:O ther hyperlipidemia Take 1 tablet by mouth once daily 90 Tablet 1 4 Active losartan-hydrochlor othiazide (HYZAAR) 100-25 mg tabletIndications:E ssential hypertension Take 1 tablet by mouth once daily 90 Tablet 4 Active amoxicillin-clavula parviz (AUGMENTIN) 875-125 mg tabletIndications:E mpyema (HC) Take 1 Tablet by mouth two times daily with meals. 4 Active Active Problems Problem Noted Date Diagnosed [...] Department Care Team Description 01/18/2024 11:40 AM COMPUTER TYPESETTER KEYLINER Phone Office Visit [address] [phone] Tate Bear, Hospital F/U (The patient reports he feels a lot better, getting around a lot better. The patient is not familiar, does not know, what medications he takes. ) 01/18/2024 Travel 01/12/[address] [phone] Tate Bear, Questions 12/14/[address] [phone] Tate Bear DO Refill Request (Losartan-hydrochlor othiazide) 10/29/[address] [phone] Tate Bear, Refill Request (Atorvastatin) from Last 3 Months Immunizations Name Administration Dates Next Due COVID-19 vaccine (Teros 30mcg/0.3mL) PF, MDV 10/23/2020,09/10/2020 Influenza RIV4 (Age [...] at Not on file Legal Sex Male 8:00 AM COMPUTER TYPESETTER KEYLINER Gender Identity Not on file Sexual Orientation [...] series for age 65+ Completed 8, 12/18/2010 Insurance [employer] MED[employer]ARE ADVANTAGE MR Advance Directives * Full Code (Latest Code Status on File) Date Activated Date Inactivated Comments 09/14/2021 2:29 PM 09/15/2021 2:06 PM Question Answer Comments Code Status Discussion: Reviewed Preferences Care Teams Academic Coach Relationship Specialty [place] [id number] [place] [address] PCP - General Family Practice 07/23/22
[2024-01-26 12:07] LABS: Anion Gap 10 mEq/L (7-15)
[2024-01-26 12:23] LABS: Alanine Aminotransferase* 24 U/L (4-50); Albumin* 3.4 g/dL (3.3-5.0); Alkaline Phosphatase* 79 U/L (40-150); Aspartate Amino Transferase* 32 U/L (12-35); Bilirubin Total* 0.5 mg/dL (0.1-1.5); Blood Urea Nitrogen* 25 mg/dL (7-30); Calcium* 8.7 mg/dL (8.4-10.6); Carbon Dioxide* 24 mmol/L (20-32); Chloride* 104 mmol/L (96-114); Estimated Glomerular Filt Rate 32 ml/min; Glucose* 145 mg/dL (60-115); Sodium* 138 mmol/L (135-149); Total Protein* 7.1 g/dL (6.0-8.3)
[2024-01-26 12:36] LABS: Basophils Absolute Auto 0.05 K/uL (0.00-0.30); Basophils Percent Auto 0.6 % (0.0-3.0); Eosinophils Absolute Auto 0.28 K/uL (0.00-0.50); Eosinophils Percent Auto 3.5 % (0.0-7.0); Hematocrit 26.3 % (37.0-53.0); Immature Granulocytes Pct Auto 2.5 %; Lymphocytes Percent Auto 10.1 % (20-44); Mean Corpuscular HGB Conc 30 gm/dL (32-36); Mean Corpuscular Hemoglobin 30 pg (26-34); Mean Corpuscular Volume 101 fL (80-100); Monocytes Percent Auto 9.6 % (0.0-11.0); Neutrophils Percent Auto 73.7 % (42.0-72.0); Platelet Count* 306 K/uL (140-440); RDW Coefficient of Variation % 14.3 % (11.5-15.5); White Blood Count* 7.95 K/uL (4.50-11.00)
[2024-01-26 12:51] LABS: Hemoglobin* 7.8 gm/dL (13.5-17.5); Slide Review Reflex Yes
[2024-01-26 12:55] LABS: Slide Review Acceptable Review (Acceptable)
== END 2024-01-26 10:49 | disposition home or self-care (01) ==
LOC: LAB 10:51
PROVIDERS: Visit Provider Internal Medicine Infectious Disease
DX: J18.9 Pneumonia, unspecified organism (principal)
CPT/HCPCS: 36415; 80053; 85025

== ENCOUNTER 2024-02-08 10:21 | Outpatient (CLI) | payer MEDICARE, SELFPAY ==
[2024-02-08 10:55] LABS: Creatinine* 1.6 mg/dL (0.5-1.5); Estimated Glomerular Filt Rate 42 ml/min
--- NOTE | 2024-02-08 11:00 | CRLHL7_ITS ---
For Patients: As a result of the Century Cures Act, medical imaging exams and procedure reports are released immediately into your electronic medical record. You may view this report before your referring provider. If you have questions, please contact your health care provider. Indication: PNEUMONIA FOLLOW UP, HISTORY OF LIVER CIRRHOSIS Technique: CT Chest WITH 75 CC ISOVUE 370 Please note that all CT scans at this facility use dose modulation, iterative reconstruction, and/or weight-based dosing when appropriate to reduce radiation dose to as low as reasonably achievable. Comparison: 01/22/2024 Findings: No significant interval change in consolidative density within the right lower lobe with associated air bronchograms and adjacent small right pleural effusion. Incidental 3 millimeter calcified granuloma right upper lobe. No enlarged lymph nodes. Trace pericardial effusion. No adrenal nodule. Bilateral renal cysts. No fracture. Impression: No significant interval change in right lower lobe consolidative airspace densities with air bronchograms and small right pleural effusion. Please note that all CT scans at this facility use dose modulation, iterative reconstruction, and/or weight-based dosing when appropriate to reduce radiation dose to as low as reasonably achievable. Dictated by Vlad Beck MD @ 02/08/2024 12:58:04 PM (Electronically Signed)
== END 2024-02-08 10:22 | disposition home or self-care (01) ==
PROVIDERS: Visit Provider Physician Assistant
DX: J18.9 Pneumonia, unspecified organism (principal); I31.39 Other pericardial effusion (noninflammatory)
CPT/HCPCS: 36415; 71260; 82565; Q9967

== ENCOUNTER 2024-02-11 10:53 | Outpatient (CLI) | payer MEDICARE, SELFPAY ==
[2024-02-11 11:19] LABS: Basophils Absolute Auto 0.03 K/uL (0.00-0.30); Basophils Percent Auto 0.4 % (0.0-3.0); Eosinophils Percent Auto 8.8 % (0.0-7.0); Hematocrit 25.9 % (37.0-53.0); Immature Granulocytes Abs Auto 0.09 K/uL (0.00-0.30); Immature Granulocytes Pct Auto 1.2 %; Lymphocytes Percent Auto 12.6 % (20-44); Mean Corpuscular HGB Conc 30 gm/dL (32-36); Mean Corpuscular Hemoglobin 30 pg (26-34); Mean Corpuscular Volume 100 fL (80-100); Monocytes Percent Auto 7.6 % (0.0-11.0); Neutrophils Absolute Auto 5.05 K/uL (1.7-7.0); Neutrophils Percent Auto 69.4 % (42.0-72.0); Platelet Count* 321 K/uL (140-440); RDW Coefficient of Variation % 13.8 % (11.5-15.5); White Blood Count* 7.28 K/uL (4.50-11.00)
[2024-02-11 11:22] LABS: Albumin* 3.4 g/dL (3.3-5.0); Chloride* 107 mmol/L (96-114); Sodium* 140 mmol/L (135-149)
[2024-02-11 11:25] LABS: Alanine Aminotransferase* 26 U/L (4-50); Alkaline Phosphatase* 71 U/L (40-150); Anion Gap 10 mEq/L (7-15); Aspartate Amino Transferase* 25 U/L (12-35); Bilirubin Total* 0.3 mg/dL (0.1-1.5); Blood Urea Nitrogen* 34 mg/dL (7-30); Carbon Dioxide* 23 mmol/L (20-32); Creatinine* 1.7 mg/dL (0.5-1.5); Estimated Glomerular Filt Rate 39 ml/min; Glucose* 161 mg/dL (60-115); Total Protein* 7.2 g/dL (6.0-8.3)
[2024-02-11 11:26] LABS: Calcium* 9.2 mg/dL (8.4-10.6)
[2024-02-11 11:35] LABS: Hemoglobin* 7.7 gm/dL (13.5-17.5)
[2024-02-11 11:36] LABS: Slide Review Reflex No
== END 2024-02-11 10:54 | disposition home or self-care (01) ==
PROVIDERS: Visit Provider Physician Assistant
DX: N18.32 Chronic kidney disease, stage 3b (principal); D64.9 Anemia, unspecified
CPT/HCPCS: 36415; 80053; 85025

== ENCOUNTER 2024-02-29 22:23 | Outpatient (REF) | payer MEDICARE, SELFPAY ==
[2024-02-29 22:50] LABS: Creatinine* 1.8 mg/dL (0.5-1.5); Estimated Glomerular Filt Rate 36 ml/min
[2024-02-29 22:51] LABS: Alanine Aminotransferase* 19 U/L (4-50); Alkaline Phosphatase* 82 U/L (40-150)
[2024-02-29 23:02] LABS: Basophils Absolute Auto 0.07 K/uL (0.00-0.30); Basophils Percent Auto 0.6 % (0.0-3.0); Eosinophils Percent Auto 9.5 % (0.0-7.0); Hematocrit 30.6 % (37.0-53.0); Immature Granulocytes Abs Auto 0.18 K/uL (0.00-0.30); Immature Granulocytes Pct Auto 1.6 %; Lymphocytes Percent Auto 12.1 % (20-44); Mean Corpuscular HGB Conc 29 gm/dL (32-36); Mean Corpuscular Hemoglobin 28 pg (26-34); Mean Corpuscular Volume 96 fL (80-100); Neutrophils Absolute Auto 7.24 K/uL (1.7-7.0); Neutrophils Percent Auto 66.2 % (42.0-72.0); Platelet Count* 387 K/uL (140-440); RDW Coefficient of Variation % 14.3 % (11.5-15.5); Red Blood Count 3.18 m/uL (4.30-5.90); White Blood Count* 10.95 K/uL (4.50-11.00)
[2024-02-29 23:05] LABS: Slide Review Reflex No
== END 2024-02-29 22:24 | disposition home or self-care (01) ==
LOC: NPINS 22:23
PROVIDERS: Visit Provider Physician Assistant
DX: J86.9 Pyothorax without fistula (principal); Z79.2 Long term (current) use of antibiotics
CPT/HCPCS: 82565; 84075; 84460; 85025

== ENCOUNTER 2024-03-14 10:51 | Outpatient (CLI) | payer MEDICARE, SELFPAY ==
[2024-03-14 14:03] LABS: Basophils Absolute Auto 0.04 K/uL (0.00-0.30); Basophils Percent Auto 0.5 % (0.0-3.0); Eosinophils Percent Auto 9.1 % (0.0-7.0); Hematocrit 29.5 % (37.0-53.0); Hemoglobin* 8.9 gm/dL (13.5-17.5); Immature Granulocytes Abs Auto 0.13 K/uL (0.00-0.30); Immature Granulocytes Pct Auto 1.5 %; Lymphocytes Percent Auto 11.4 % (20-44); Mean Corpuscular HGB Conc 30 gm/dL (32-36); Mean Corpuscular Hemoglobin 28 pg (26-34); Mean Corpuscular Volume 94 fL (80-100); Monocytes Percent Auto 9.5 % (0.0-11.0); Neutrophils Absolute Auto 5.82 K/uL (1.7-7.0); Platelet Count* 317 K/uL (140-440); Red Blood Count 3.13 m/uL (4.30-5.90); White Blood Count* 8.56 K/uL (4.50-11.00)
[2024-03-14 14:06] LABS: Slide Review Reflex No
[2024-03-14 14:08] LABS: Albumin* 3.8 g/dL (3.3-5.0); Chloride* 106 mmol/L (96-114); Potassium* 4.6 mmol/L (3.6-5.1); Sodium* 141 mmol/L (135-149)
[2024-03-14 14:10] LABS: Creatinine* 1.6 mg/dL (0.5-1.5); Estimated Glomerular Filt Rate 42 ml/min
[2024-03-14 14:11] LABS: Alanine Aminotransferase* 19 U/L (4-50); Alkaline Phosphatase* 80 U/L (40-150); Anion Gap 12 mEq/L (7-15); Aspartate Amino Transferase* 21 U/L (12-35); Bilirubin Total* 0.4 mg/dL (0.1-1.5); Blood Urea Nitrogen* 48 mg/dL (7-30); Calcium* 9.4 mg/dL (8.4-10.6); Carbon Dioxide* 23 mmol/L (20-32); Glucose* 129 mg/dL (60-115); Total Protein* 7.8 g/dL (6.0-8.3)
== END 2024-03-14 10:52 | disposition home or self-care (01) ==
LOC: NPINS 10:54
PROVIDERS: Visit Provider Physician Assistant
DX: J18.9 Pneumonia, unspecified organism (principal)
CPT/HCPCS: 80053; 85025

== ENCOUNTER 2024-11-01 13:26 | Outpatient (CLI) | payer MEDICARE, SELFPAY | END 2024-11-01 13:27 | disposition home or self-care (01) | LOC: FRMREF 13:26 | PROVIDERS: PCP Family Medicine; Visit Provider Family Medicine | DX: Z13.0 Encounter for screening for diseases of the blood and blood-forming organs and certain disorders involving the immune mechanism (principal); Z13.1 Encounter for screening for diabetes mellitus; Z00.00 Encounter for general adult medical examination without abnormal findings; K74.60 Unspecified cirrhosis of liver | CPT/HCPCS: 80053; 83540; 83550 ==

== ENCOUNTER 2024-11-07 11:31 | Outpatient (CLI) | payer MEDICARE, SELFPAY | END 2024-11-07 11:32 | disposition home or self-care (01) | LOC: NFLDREF 11-10 17:05 | PROVIDERS: PCP Family Medicine; Referring Provider Family Medicine; Visit Provider Family Medicine | DX: N18.4 Chronic kidney disease, stage 4 (severe) (principal) | CPT/HCPCS: 80048; 82043; 82570 ==

== ENCOUNTER 2024-12-06 12:53 | Outpatient (CLI) | payer MEDICARE, SELFPAY | END 2024-12-06 12:54 | disposition home or self-care (01) | LOC: NFLDREF 12-14 03:21 | PROVIDERS: PCP Family Medicine; Referring Provider Family Medicine; Visit Provider Internal Medicine Nephrology | DX: N18.4 Chronic kidney disease, stage 4 (severe) | CPT/HCPCS: 80069; 82306; 82595; 82784; 83036; 83516; 83520; 83970; 84155; 84165; 84550; 86140; 86160; 86225; 86255; 86334 ==

== ENCOUNTER 2025-01-18 12:27 | Observation (INO) | payer MEDICARE, SELFPAY ==
--- OUTSIDE RECORDS SUMMARY | 2024-12-06 10:30 | XMS_ITS | Encounter Summary ---
Author Organization [facility] Address [address] [place] [address] Care Team Providers Care Flexographic Printing Press Operator Name Role Phone Elsewhere, Pcp Primary Care Provider Unavailabl e Reason for Visit * Appointment Request (Routine) - Closed Specialty Diagnoses / Procedures Referred By Contac t Referred To Contact Nephrology and Hypertension Referral ID Status Reason Start Date Expiration Date Visits Re quested Visits Authorized [id number] Closed 11/11/2024 02/11/2026 1 1 Encounter Details Date Type Department Care Team (Latest Contact Info) Description 12/06/2024 11:30 AM CDT External Outreach Division of Nephrology and Hypertension in [place], [place] [address] [place] [address] Ceci Park M.D., Ph.D. 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 No 01/10/2024 Housing Stability Answer Date Recorded What is your living situation today? I have a [facility] place to live 01/10/2024 Sex and Gender Information Value Date Recorded Sex Assigned at Male 03/11/2024 10:34 AM DRAMATIC READER Legal Sex Male 3:31 PM DRAMATIC READER Gender Identity Male 03/11/2024 10:34 AM DRAMATIC READER Sexual Orientation Straight 03/11/2024 10 :34 AM DRAMATIC READER documented as of this encounter Progress Notes * Ceci Park M.D., Ph.D. - 12/06/2024 11:30 AM CDT PROGRESS NOTE The patient verbally consented to an audio recording of their visit to assist with the completion of documentation. 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 He is accompanied by his who provides additional history. The patient was last seen in clinic in April 2023. He was hospitalized in December 2023 for empyema in the setting of pneumonia (Streptococcus anginosus and Streptococcus intermedius), during which he developed FRANCISCO on CKD and required temporary dialysis. His kidney function recovered during hospitalization and the dialysis catheter was removed. At discharge, his creatinine had returned to baseline (1.7). On 11/01, he was seen by Dr. Smart in [place], who advised follow-up with Nephrology due to lab abnormalities. At that visit, his creatinine was 2.3 (previous baseline 1.8-1.9) and Hgb was 9.9. Furosemide was held due to these changes. Since then, he has experienced increased fatigue and dyspneaon exertion, though he remains comfortable at rest. He denies dizziness or lightheadedness. He has no edema and reports good urine output. He continues to take an OTC prostate medication, which he has been on for several years. He also reports starting vitamin E. His fluid intake is limited to approximately 20-30 oz daily, including water, juice, coffee, and milk. He has difficulty tolerating plain water, which causes nausea, so lemon is added to improve palatability. He continues to cough up sputum daily, which is currently creamy white (previously dark yellow). He denies fever. He has one kidney, which he discovered at age 63. 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 He has been on and off diuretics due to his CKD, which was initially attributed to NSAID use. He is currently not monitoring his blood pressure at home but has a device available. OBJECTIVE There were no vitals taken for this visit. PHYSICAL EXAMINATION Physical Exam General: No acute distress. CV: Resp: Crackles at the right lung base. DIAGNOSTICS I have reviewed available labs in detail with patient. 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 - Temporary dialysis required during hospitalization in January 2024 for FRANCISCO on CKD; kidney function recovered and dialysis catheter removed. - Furosemide held due to changes in kidney function; no current edema. - Start carvedilol 6.25 mg BID for blood pressure control. - Advised patient to monitor blood pressure at home twice weekly and bring readings to next visit. - Ordered blood tests to assess kidney function and investigate changes. - Encouraged increased fluid intake to at least 40 oz/day. - Follow-up in January (2 months) with repeat labs to monitor kidney function. 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 -Plan to repeat SPEP and order other serologies to rule out GN. # Anemia - Hemoglobin 9.9 g/dL on 11/02/2023. - Repeat blood tests to further evaluate anemia and iron replacement. # Chronic Cough - Persistent cough with creamy white sputum; no fever. - Crackles noted at right lung base on exam. - Ordered chest X-ray to evaluate for infection or other pathology. - Advised to defer flu vaccine until after chest X-ray results. Return visit in January Pat Jose M.D., Ph.D. 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
[2025-01-18] VITALS (46 sets, daily range): BP systolic 92–129; BP diastolic 50–92; PULSE 90–114; RESP 18–20; TEMP 36.6–37.1; O2SAT 90–99; BMI 22.3
--- OUTSIDE RECORDS SUMMARY | 2025-01-18 12:29 | XMS_ITS ---
Author Organization [facility] Address [address] [place] [address] Care Team Providers Care Flatbed Owner Operator Name Role Phone Elsewhere, Pcp Primary Care Provider Unavailabl e Procedures Procedure Name Priority Date/Time Associated Diagnosis Comments PARATHYROID HORMONE (PTH), S Routine 12/06/2024 12:53 PM CDT C-REACTIVE PROTEIN (CRP), S/P Routine 12/06/2024 12:53 PM CDT RENAL FUNCTION PANEL, S Routine 12/06/2024 12:53 PM CDT URIC ACID, S/P Routine 12/06/2024 12:53 PM CDT COMPL C3, S Routine 12/06/2024 12:53 PM CDT COMPLEMENT C4, S Routine 12/06/2024 12:5 3 PM CDT CBC WITH DIFFERENTIAL, B Routine 12/06/2024 12:53 PM CDT HEPATITIS B SURFACE ANTIGEN Routine 01/03/2024 6:42 AM DIRECTOR OF PUBLICATIONS from Last 3 Months or Most Recently Relevant to Health Maintenance Allergies Active Allergy Reactions Criticality Noted Date Comments Ciprofloxacin Other (see comments) 03/15/2024 Pravastatin Other (see comments) 03/15/2024 Sulfamethoxazole-Trimethoprim Other (see comments) 03/15/2024 Medications ferrous sulfate 325 mg (65 mg iron) DR tablet Take 1 tablet (65 mg of iron total) by mouth daily. 90 tablet 3 3 Active multivitamin tablet Take 1 tablet by mouth [...] Med Name: Prostate Complete Zinc, Selenium, [place], Lycopene, Turmeric, Resveratrol, Pomegranate Active gabapentin (Neurontin) 300 mg capsule Take 1 capsule (300 mg total) by mouth at bedtime. 30 capsule 4 Active oxyCODONE (Roxicodone) 5 mg immediate release tabletIndicatio ns:Acute Pain Exception Take 1 tablet (5 mg total) by mouth every 8 (eight) hours as needed for pain Indication: Acute Pain Exception. 10 tablet 4 Active Additional Information Patient taking differently:5 mg oral Every 8 hours PRN, pain,(No indications reported), Reported on 03/15/2024 carvediloL (Coreg) 6.25 mg tablet Take 1 tablet (6.25 mg total) by mouth 2 (two) times a day with meals. 180 tablet 3 5 Active Active Problems Problem Noted Date Diagnosed Date Failure Renal Acute (Acute Kidney Injury) 2023 Pneumonia 01/01/2024 Mass Lung 01/01/2024 Hyponatremia 01/01/2024 Hypokalemia 01/01/2024 Immunizations Immunization Administration Dates Next Due influenza trivalent high dose (HD)(PF) (Deferred: Other) Social History Tobacco Use Types Packs/Day Years Used Date Smoking Tobacco: Never Passive Smoke Exposure: Never Smokeless Tobacco: Never Tobacco Cessation:Counseling Given: Not Answered [facility] Utilities Answer Date Recorded In the past 12 months has th e [employer], oil, or water [employer] threatened to shut off services in your [...] your living situation today? I have a [facility] place to live 01/10/2024 Sex and Gender Information Value Date Recorded Sex Assigned at Male 03/11/2024 10:34 AM DIRECTOR OF PUBLICATIONS Legal Sex Male 3:31 PM DIRECTOR OF PUBLICATIONS Gender Identity Male 03/11/2024 10:34 AM DIRECTOR OF PUBLICATIONS Sexual Orientation Straight 03/11/2024 10 :34 AM DIRECTOR OF PUBLICATIONS Last Filed Vital Signs Vital Sign Reading Time Taken Comments Blood Pressure 151/78 03/15/2024 1:59 PM DIRECTOR OF PUBLICATIONS Pulse 98 03/15/2024 1:59 PM DIRECTOR OF PUBLICATIONS Temperature 36.5 C (97.7 F) 03/15/2024 1:59 PM DIRECTOR OF PUBLICATIONS Respiratory Rate 18 03/15/2024 12:51 PM DIRECTOR OF PUBLICATIONS Oxygen Saturation 98% 03/15/2024 12:51 PM DIRECTOR OF PUBLICATIONS Inhaled Oxygen Concentration - - Weight 65.8 kg (145 lb) 03/15/2024 12:51 PM DIRECTOR OF PUBLICATIONS Height 170.2 cm (5' 7.01) 03/15/2024 12:51 PM C Body Mass Index 22.7 03/15/2024 12:51 PM DIRECTOR OF PUBLICATIONS Results * (ABNORMAL) Renal Function Panel (12/06/2024 12:53 PM CDT) EXT Sodium 140 135 - 145 mmol/L [facility] EXT Potassium 5.5(H) 3.6 - 5.1 mmol/L [facility] EXT Chloride 112 54 - 114 mmol/L [facility] EXT CO2 18(L) 20 - 32 mmol/L [facility] EXT Anion Gap 10 7 - 15 mEq/L [facility] EXT Creatinine 2.2(H) 0.5 - 1.5 mg/dL [facility] EXT Estimated GFR (eGFR) 28 ml/min [facility] EXT Calcium, Total 9.8 8.4 - 10.6 mg/dL [facility] EXT Glucose 92 60 - 115 mg/dL [facility] EXT Albumin 3.7 3.3 - 5.0 g/dL [facility] EXT Phosphorus (Inorganic), S 4.0 2.5 - 4.5 mg/dL [facility] 12/06/2024 12:5 3 PM CDT Narrative [facility] - 12/09/2024 10:27 AM CDT Source result document attached to Order Number [id number] (CBC WITH DIFFERENTIAL, B) dated 12/06/2024. External results verified in Extract by Shanice Tran on 12/09/2024 at 10:17 AM. us Ordering Provider Jaden Gonzalez LAB BLOOD ADD-ON Final Result Performing Organization Address [facility] Co de Phone Number [facility] [employer] [address] * (ABNORMAL) CBC with Differential, Blood (12/06/2024 12:53 PM CDT) EXT Leukocytes 7.22 4.50 - 11.00 K/uL [employer] [employer] [facility] [place] EXT RBC 2.94(L) 4.30 - 5.90 M/uL [employer] [employer] [facility] [place] EXT Hemoglobin 9.2(L) 13.5 - 17.5 gm/dL [employer] [employer] [facility] [place] EXT Hematocrit 28.9(L) 37.0 - 53.0 % [facility] EXT MCV 98 80 - 100 fL [employer] [employer] EXT Platelet Count 190 140 - 440 K/uL [employer] [employer] [facility] [place] 12/06/2024 12:5 3 PM CDT Narrative [employer] - 12/09/2024 10:27 AM CDT External results verified in Extract by Shanice Tran on 12/09/2024 at 10:17 AM. us Ordering Provider Jaden Gonzalez LAB BLOOD ADD-ON Final Result Performing Organization Address [facility] Co de Phone Number [employer] [address] * Complement C3 (12/06/2024 12:53 PM CDT) EXT C3 Complement 118 90 - 180 mg/dL [employer] [employer] [facility] [place] 12/06/2024 12:5 3 PM CDT Narrative [facility] - 12/09/2024 10:27 AM CDT Source result document attached to Order Number [id number] (CBC WITH DIFFERENTIAL, B) dated 12/06/2024. External results verified in Extract by Shanice Tran on 12/09/2024 at 10:21 AM. us Ordering Provider External Lisa LAB BLOOD ADD-ON Final Result Performing Organization Address [facility]/ZIP Co de Phone Number [facility] [employer] [address] * Complement C4 (12/06/2024 12:53 PM CDT) EXT C4 Complement 32 10 - 40 mg/dL [employer] 12/06/2024 12:5 3 PM CDT Narrative [facility] - 12/09/2024 10:27 AM CDT Source result document attached to Order Number [id number] (CBC WITH DIFFERENTIAL, B) dated 12/06/2024. External results verified in Extract by Shanice Tran on 12/09/2024 at 10:21 AM. us Ordering Provider External Lisa LAB BLOOD ADD-ON Final Result Performing Organization Address [facility] de Phone Number [facility] [employer] [address] * (ABNORMAL) CRP (C-Reactive Protein) (12/06/2024 12:53 PM CDT) Pathologist [facility] EXT C-Reactive Protein Quantative 1.6(H) 0.5 - 1.0 mg/dL [employer] 12/06/2024 12:5 3 PM CDT Narrative [facility] - 12/09/2024 10:27 AM CDT Source result document attached to Order Number [id number] (CBC WITH DIFFERENTIAL, B) dated 12/06/2024. External results verified in Extract by Shanice Tran on 12/09/2024 at 10:25 AM. us Ordering Provider External Lisa LAB BLOOD ADD-ON Final Result Performing Organization Address [facility] de Phone Number [facility] [employer] [address] [place] [address] * (ABNORMAL) Uric Acid (12/06/2024 12:53 PM CDT) EXT Uric Acid, S 8.5(H) 2.2 - 8.4 mg/dL [employer] 12/06/2024 12:5 3 PM CDT Narrative [facility] - 12/09/2024 10:27 AM CDT Source result document attached to Order Number [id number] (CBC WITH DIFFERENTIAL, B) dated 12/06/2024. External results verified in Extract by Shanice Tran on 12/09/2024 at 10:17 AM. us Ordering Provider External Lisa LAB BLOOD ADD-ON Final Result Performing Organization Address [facility] Phone Number [facility] [employer] [address] * (ABNORMAL) Parathyroid Hormone (PTH) (12/06/2024 12:53 PM CDT) Parathyroid Hormone (PTH) 7.7(L) 14.2 - 75.2 pg/mL [employer] 12/06/2024 12:5 3 PM CDT Narrative [facility] - 12/09/2024 10:27 AM CDT Source result document attached to Order Number [id number] (CBC WITH DIFFERENTIAL, B) dated 12/06/2024. External results verified in Extract by Shanice Tran on 12/09/2024 at 10:17 AM. chest xray report also scanned us Ordering Provider External Lisa LAB BLOOD ADD-ON Final Result Performing Organization Address [facility] de Phone Number [facility] NA [employer] [address] [place] [id number], [facility] * Hepatitis B Surface Antigen (01/03/2024 6:42 AM DIRECTOR OF PUBLICATIONS) HBs Antigen, S Nonreactive Nonreactive 01/03/2024 8:07 AM DIRECTOR OF PUBLICATIONS MKTO Blood (Blood, Peripheral Draw) 01/03/2024 6:42 AM DIRECTOR OF PUBLICATIONS 01/03/2024 6:55 AM DIRECTOR OF PUBLICATIONS us Jet Palomares M.D. LAB MICROBIOLOGY - BLOO D ORDERABLES Final Result [facility] [address] [place] [address], [facility] [place] [address] [place] [address] from Last 3 Months or Most Recently Relevant to Health Maintenance
--- OUTSIDE RECORDS SUMMARY | 2025-01-18 12:29 | XMS_ITS | Clinical Summary ---
Author Organization [facility] Address [address] [place] [address] Care Team Providers Care Programming Specialist Name Role Phone Elsewhere, Pcp Primary Care Provider Unavailabl e Source Comments Patient records contain information from all sites at [facility]. For routine questions regarding patient records, call [phone] during business hours, M-F 8:00 AM - 5:00 PM Central Time. Record requests for emergency care only can be directed to [phone] at any time.[facility] Allergies Active Allergy Reactions Criticality Noted Date [...] Med Name: Prostate Complete Zinc, Selenium, Saw [place], Lycopene, Turmeric, Resveratrol, Pomegranate Active gabapentin (Neurontin) [...] Encounters Date Type Department Care Team Description 12/06/2024 11:30 AM CDT External Outreach Division of Nephrology and Hypertension in [place], [place] [address] [place] [address] Ceci Park M.D., Ph.D. Chronic Kidney Disease Stage 4 Glomerular Filtration Rate 15-29 (HCC); Gammopathy Monoclonal; Hypertension Essential Primary; Anemia; Chronic Cough 12/06/2024 Orders Only Division of Nephrology and Hypertension in [place], [place] [address] [place] [address] External, Ordering Provider, Reggie. from Last 3 Months Immunizations Immunization Administration Dates Next Due influenza trivalent high dose (HD)(PF) 4(Deferred: Other) Social History Tobacco Use Types Packs/Day Years Used Date Smoking Tobacco: Never Passive Smoke Exposure: Never Smokeless Tobacco: Never Tobacco Cessation:Counseling Given: Not Answered [facility] Utilities Answer Date Recorded In the past 12 months has th e [employer], gas, oil, or water company threatened to [...] your living situation today? I have a [facility] place to live 01/10/2024 Sex and Gender Information Value Date Recorded Sex Assigned at Male 03/11/2024 10:34 AM TRANSMISSION INSPECTOR Legal Sex Male 3:31 PM TRANSMISSION INSPECTOR Gender Identity Male 03/11/2024 10:34 AM TRANSMISSION INSPECTOR Sexual Orientation Straight 03/11/2024 10 :34 AM TRANSMISSION INSPECTOR Last Filed Vital Signs Vital Sign Reading Time Taken Comments Blood Pressure 151/78 03/15/2024 1:59 PM TRANSMISSION INSPECTOR Pulse 98 03/15/2024 1:59 PM TRANSMISSION INSPECTOR Temperature 36.5 C (97.7 F) 03/15/2024 1:59 PM TRANSMISSION INSPECTOR Respiratory Rate 18 03/15/2024 12:51 PM TRANSMISSION INSPECTOR Oxygen Saturation 98% 03/15/2024 12:51 PM TRANSMISSION INSPECTOR Inhaled Oxygen Concentration - - Weight 65.8 kg (145 lb) 03/15/2024 12:51 PM TRANSMISSION INSPECTOR Height 170.2 cm (5' 7.01) 03/15/2024 12:[address] Body Mass Index 22.7 03/15/2024 12:51 PM TRANSMISSION INSPECTOR Plan of Treatment Health Maintenance Due Date Last Done Comments Zoster Vaccines (1 of 2) 1988 DTaP,Tdap,and Td Vaccines (1 - Tdap) 07/11/2011 07/10/2011 RSV vaccine - (32-36 weeks) or 50+ years (1 - 1-dose 75+ series) 2013 Depression Screening (Annual PHQ-2) 02/17/2024 Fall Risk Screen (Annual) 02/17/2024 COVID-19 Vaccine (3 - season) 2024 10/23/2020, 09/10/2020 Influenza Vaccine (#1) 2024 , 11/24/2021, 10/23/2020, Additional history exists Pneumococcal vaccine (50+ years) Completed 11/25/2017, 12/18/2010 Hepatitis B Screening Discontinued 01/03/2024, 022 IPV Vaccines Aged Out No longer eligi [...] B SURFACE ANTIGEN Routine 01/03/2024 6:42 AM TRANSMISSION INSPECTOR from Last 3 Months or Most Recently Relevant to Health Maintenance Results * (ABNORMAL) Renal Function Panel (12/06/2024 [...] Source result document attached to Order Number [id number] (CBC WITH DIFFERENTIAL, B) dated 12/06/2024. External results verified in Extract by Shanice Tran on 12/09/2024 at 10:17 AM. us Ordering Provider External Lisa LAB BLOOD ADD-ON Final Result [facility] [place] [facility] NA [email or web address] [address] * (ABNORMAL) CBC with Differential, Blood (12/06/2024 12:53 PM CDT) EXT Leukocytes 7.22 4.50 - 11.00 K/uL [facility] EXT RBC 2.94(L) 4.30 - 5.90 M/uL [employer] [employer] EXT Hemoglobin 9.2(L) 13.5 - 17.5 gm/dL [employer] [facility] [employer] EXT Hematocrit 28.9(L) 37.0 - 53.0 % [employer] [employer] EXT MCV 98 80 - 100 fL [employer] [employer] EXT Platelet Count 190 140 - 440 K/uL [employer] [employer] 12/06/2024 12:5 3 PM CDT Narrative [employer] [employer] - 12/09/2024 10:27 AM CDT External results verified in Extract by Shanice Tran on 12/09/2024 at 10:17 AM. us Ordering Provider Jaden Gonzalez LAB BLOOD ADD-ON Final Result Performing Organization Address [facility] de Phone Number [email or web address] [address] * Complement C3 (12/06/2024 12:53 PM CDT) Pathologist [facility] EXT C3 Complement 118 90 - 180 mg/dL [email or web address] 12/06/2024 12:5 3 PM CDT Narrative [facility] [place] [facility] - 12/09/2024 10:27 AM CDT Source result document attached to Order Number [id number] (CBC WITH DIFFERENTIAL, B) dated 12/06/2024. External results verified in Extract by Shanice Tran on 12/09/2024 at 10:21 AM. us Ordering Provider Jaden Gonzalez LAB BLOOD ADD-ON Final Result Performing Organization Address [facility] de Phone Number [employer] [facility] [email or web address] [address] * Complement C4 (12/06/2024 12:53 PM CDT) [facility] EXT C4 Complement 32 10 - 40 mg/dL [email or web address] 12/06/2024 12:5 3 PM CDT Narrative [facility] - 12/09/2024 10:27 AM CDT Source result document attached to Order Number [id number] (CBC WITH DIFFERENTIAL, B) dated 12/06/2024. External results verified in Extract by Shanice Tran on 12/09/2024 at 10:21 AM. us Ordering Provider External M.D. LAB BLOOD ADD-ON Final Result Performing Organization Address [facility] Phone Number [facility] [email or web address] [address] * (ABNORMAL) CRP (C-Reactive Protein) (12/06/2024 12:53 PM CDT) [facility] EXT C-Reactive Protein Quantative 1.6(H) 0.5 - 1.0 mg/dL [email or web address] 12/06/2024 12:5 3 PM CDT Narrative [facility] - 12/09/2024 10:27 AM CDT Source result document attached to Order Number [id number] (CBC WITH DIFFERENTIAL, B) dated 12/06/2024. External results verified in Extract by Shanice Tran on 12/09/2024 at 10:25 AM. us Ordering Provider External M.D. LAB BLOOD ADD-ON Final Result Performing Organization Address [facility] de Phone Number [facility] [email or web address] [address] * (ABNORMAL) Uric Acid (12/06/2024 12:53 PM CDT) EXT Uric Acid, S 8.5(H) 2.2 - 8.4 mg/dL [email or web address] 12/06/2024 12:5 3 PM CDT Narrative [facility] [place] [facility] - 12/09/2024 10:27 AM CDT Source result document attached to Order Number [id number] (CBC WITH DIFFERENTIAL, B) dated 12/06/2024. External results verified in Extract by Shanice Tran on 12/09/2024 at 10:17 AM. us Ordering Provider External M.D. LAB BLOOD ADD-ON Final Result Performing Organization Address [facility] de Phone Number [facility] [email or web address] [address] [place] [address] * (ABNORMAL) Parathyroid Hormone (PTH) (12/06/2024 12:53 PM CDT) Pathologist [facility] Parathyroid Hormone (PTH) 7.7(L) 14.2 - 75.2 pg/mL [email or web address] 12/06/2024 12:5 3 PM CDT Narrative [facility] [place] [facility] - 12/09/2024 10:27 AM CDT Source result document attached to Order Number [id number] (CBC WITH DIFFERENTIAL, B) dated 12/06/2024. External results verified in Extract by Shanice Tran on 12/09/2024 at 10:17 AM. chest xray report also scanned us Ordering Provider External M.D. LAB BLOOD ADD-ON Final Result Performing Organization Address [facility] de Phone Number [facility] NA [email or web address] [address] * Hepatitis B Surface Antigen (01/03/2024 6:42 AM TRANSMISSION INSPECTOR) HBs Antigen, S Nonreactive Nonreactive 01/03/2024 8:07 AM TRANSMISSION INSPECTOR MKTO Blood (Blood, Peripheral Draw) 01/03/2024 6:42 AM TRANSMISSION INSPECTOR 01/03/2024 6:55 AM TRANSMISSION INSPECTOR us Jet Palomares M.D. LAB MICROBIOLOGY - BLOO D ORDERABLES Final Result [facility] [address] [place] [address], [place] MKTO [facility] [place] [address] [place] [address] from Last 3 Months or Most Recently Relevant to Health Maintenance Insurance [employer] Advance Directives For more information, please contact: [phone] * DNR/DNI (Latest Code Status on File) Date Activated Date Inactivated Comments 01/01/2024 9:20 PM 01/11/2024 6:43 PM Question Answer Comments DNR/DNI (Do Not Resuscitate/Do Not Intubate): Orquidea motta-Patient Care Teams Programming Specialist Relationship Specialty Start Date End Date Elsewhere, Pcp PCP - General Internal Medicine 01/04/24
--- OUTSIDE RECORDS SUMMARY | 2025-01-18 12:29 | XMS_ITS | Encounter Summary ---
Author Organization [facility] Address [address] [place] [address] Care Team Providers Care Housing Assistant Property Manager Name Role Phone Elsewhere, Pcp Primary Care Provider Unavailabl e Encounter Details Date Type Department Care Team (Late st Contact Info) Description 12/06/2024 Orders Only Division of Nephrology and Hypertension in [place], [place] [address] [place] [address] External, Ordering Provider, Lisa Social History Tobacco Use Types Packs/Day Years Used Date Smoking Tobacco: Never Passive Smoke Exposure: Never Smokeless Tobacco: Never [facility] Utilities Answer Date Recorded In the past 12 months has [facility] electric, gas, oil, or water [employer] threatened to shut off services in your [...] your living situation today? I have a [facility] place to live 01/10/2024 Sex and Gender Information Value Date Recorded Sex Assigned at Male 03/11/2024 10:34 AM AUTOMOTIVE UPHOLSTERER Legal Sex Male 3:31 PM AUTOMOTIVE UPHOLSTERER Gender Identity Male 03/11/2024 10:34 AM AUTOMOTIVE UPHOLSTERER Sexual Orientation Straight 03/11/2024 10 :34 AM AUTOMOTIVE UPHOLSTERER documented as of this encounter Plan of Treatment Not on file documented as of this encounter Procedures Procedure Name Priority Date/Time Associated Diagnosis Comments RENAL FUNCTION PANEL, S Routine 12/06/2024 12:53 PM CDT CBC WITH DIFFERENTIAL, B Routine 12/06/2024 12:53 PM CDT COMPL C3, S Routine 12/06/2024 12:53 PM CDT COMPLEMENT C4, S Routine 12/06/2024 12:5 3 PM CDT C-REACTIVE PROTEIN (CRP), S/P Routine 12/06/2024 12:53 PM CDT URIC ACID, S/P Routine 12/06/2024 12:53 PM CDT PARATHYROID HORMONE (PTH), S Routine 12/06/2024 12:53 PM CDT documented in this encounter Results * (ABNORMAL) Parathyroid Hormone (PTH) (12/06/2024 12:53 PM CDT) Parathyroid Hormone (PTH) 7.7(L) 14.2 - 75.2 pg/mL P2i 12/06/2024 12:5 3 PM CDT Narrative [facility] [place] [facility] - 12/09/2024 10:27 AM CDT Source result document attached to Order Number [id number] (CBC WITH DIFFERENTIAL, B) dated 12/06/2024. External results verified in Extract by Shanice Tran on 12/09/2024 at 10:17 AM. chest xray report also scanned us Ordering Provider External M.D. LAB BLOOD ADD-ON Final Result Performing Organization Address [facility] de Phone Number [employer] [facility] LOCATION [facility] [employer] [address] * (ABNORMAL) CRP (C-Reactive Protein) (12/06/2024 12:53 PM CDT) [facility] EXT C-Reactive Protein Quantative 1.6(H) 0.5 - 1.0 mg/dL P2i 12/06/2024 12:5 3 PM CDT Narrative [facility] - 12/09/2024 10:27 AM CDT Source result document attached to Order Number [id number] (CBC WITH DIFFERENTIAL, B) dated 12/06/2024. External results verified in Extract by Shanice Tran on 12/09/2024 at 10:25 AM. us Ordering Provider External M.D. LAB BLOOD ADD-ON Final Result Performing Organization Address [facility] Co de Phone Number [employer] [facility] [employer] [address] * (ABNORMAL) Renal Function Panel (12/06/2024 12:53 PM CDT) [facility] EXT Sodium 140 135 - 145 mmol/L [facility] EXT Potassium 5.5(H) 3.6 - 5.1 mmol/L [...] INC 12/06/2024 12:5 3 PM CDT Narrative [employer] [facility] - 12/09/2024 10:27 AM CDT Source result document attached to Order Number [id number] (CBC WITH DIFFERENTIAL, B) dated 12/06/2024. External results verified in Extract by Shanice Tran on 12/09/2024 at 10:17 AM. us Ordering Provider External M.D. LAB BLOOD ADD-ON Final Result [employer] [facility] [employer] [address] [place] [address] * (ABNORMAL) Uric Acid (12/06/2024 12:53 PM CDT) EXT Uric Acid, S 8.5(H) 2.2 - 8.4 mg/dL [facility] 12/06/2024 12:5 3 PM CDT Narrative [facility] [place] [facility] - 12/09/2024 10:27 AM CDT Source result document attached to Order Number [id number] (CBC WITH DIFFERENTIAL, B) dated 12/06/2024. External results verified in Extract by Shanice Tran on 12/09/2024 at 10:17 AM. us Ordering Provider External Lisa LAB BLOOD ADD-ON Final Result Performing Organization Address City/[facility]/ZIP Co de Phone Number [facility] [employer] [address] * Complement C3 (12/06/2024 12:53 PM CDT) EXT C3 Complement 118 90 - 180 mg/dL [facility] 12/06/2024 12:5 3 PM CDT Narrative [facility] [place] [facility] - 12/09/2024 10:27 AM CDT Source result document attached to Order Number [id number] (CBC WITH DIFFERENTIAL, B) dated 12/06/2024. External results verified in Extract by Shanice Tran on 12/09/2024 at 10:21 AM. us Ordering Provider External Lisa LAB BLOOD ADD-ON Final Result Performing Organization Address [facility] de Phone Number [facility] [employer] [address] * Complement C4 (12/06/2024 12:53 PM CDT) EXT C4 Complement 32 10 - 40 mg/dL [facility] 12/06/2024 12:5 3 PM CDT Narrative [facility] [place] [facility] - 12/09/2024 10:27 AM CDT Source result document attached to Order Number [id number] (CBC WITH DIFFERENTIAL, B) dated 12/06/2024. External results verified in Extract by Shanice Tran on 12/09/2024 at 10:21 AM. us Ordering Provider External Lisa LAB BLOOD ADD-ON Final Result Performing Organization Address City/[facility] Co de Phone Number [facility] [employer] [address] * (ABNORMAL) CBC with Differential, Blood (12/06/2024 12:53 PM CDT) EXT Leukocytes 7.22 4.50 - 11.00 K/uL [employer] EXT RBC 2.94(L) 4.30 - 5.90 M/uL [employer] EXT Hemoglobin 9.2(L) 13.5 - 17.5 gm/dL [employer] EXT Hematocrit 28.9(L) 37.0 - 53.0 % [employer] EXT MCV 98 80 - 100 fL [facility] EXT Platelet Count 190 140 - 440 K/uL [facility] 12/06/2024 12:5 3 PM CDT Narrative [facility] - 12/09/2024 10:27 AM CDT External results verified in Extract by Shanice Tran on 12/09/2024 at 10:17 AM. us Ordering Provider External M.D. LAB BLOOD ADD-ON Final Result [facility] [address] documented in this encounter Visit Diagnoses Not on filedocumented in this encounter Care Teams Housing Assistant Property Manager Relationship Specialty Start Date End Date Elsewhere, Pcp PCP - General Internal Medicine 01/04/24 documented as of this encounter
--- OUTSIDE RECORDS SUMMARY | 2025-01-18 12:29 | XMS_ITS | Clinical Summary ---
Author Organization [employer] Address [facility] [place] [address] Care Team Providers Care Well Logging Captain Mud Analysis Name Role Phone Tate Bear DO Primary [...] once daily 270 Tablet 3 4 Active amoxicillin-clavula parviz (AUGMENTIN) 875-125 mg tabletIndications:E mpyema (HC) Take 1 Tablet by mouth two times daily with meals. 4 Active atorvastatin 10 mg tabletIndications:O ther hyperlipidemia Take 1 tablet by mouth once daily 90 Tablet 1 5 Active losartan-hydrochlor othiazide (HYZAAR) 100-25 mg tabletIndications:E ssential hypertension Take 1 tablet by mouth once daily 30 Tablet 5 Active Active Problems Problem Noted Date [...] Encounters Date Type Department Care Team Description 01/06/2025 Telephone [facility] [address] [place] [phone] Tate Bear DO Appointment 12/22/2024 12:40 PM IBM BPM DEVELOPER Office Visit [facility] [address] [place] [address] Alexis Daigle DO Consult (Yag Capsulotomy Consultation ) 12/22/2024 Travel 12/20/2024 10:40 AM IBM BPM DEVELOPER Office Visit [facility] [address] [place] [address] Simran Kapoor, OD Eye Exam (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) 12/20/2024 Travel from Last 3 Months Immunizations Immunization Administration Dates Next Due COVID-19 vaccine ([employer] 30mcg/0.3mL) GEORGE WARE 10/23/2020,09/10/2020 Influenza RIV4 (Age [...] Cigarettes Q uit: 02[birth year]17/1962 Smokeless Tobacco: Never Tobacco Cessation:Counseling Given: Not Answered Alcohol Use Standard Drinks/Week Comments Yes 0 [...] on file Legal Sex Male 8:00 AM IBM BPM DEVELOPER Gender Identity Not on file Sexual Orientation [...] Maintenance Due Date Last Done Comments Zoster (shingles) series for age 50+ (1 of 2) 1988 RSV vaccine for adults or (1 - 1-dose 75+ series) 2013 Tetanus booster 07/09/2021 07/10/2011 BMI (ht and wt on same day) for age 18+ 12/18/2023 12/17/2022, 07/17/2022, 09/27/2021, Additional history exists Medicare Wellness for age 65+ 12/18/2023 12/17/2022, 04/18/2021 Depression screening for age 12+ 12/19/2023 12/18/2022, 12/17/2022, 04/18/2021 COVID-19 vaccine series ( season) 2024 10/23/2020, 09/10/2020 Influenza Vaccine (#1) 2024 , 11/22/2019, 11/16/2018, Additional history exists Pneumococcal series for age 50+ Completed 11/25/2017, 12/18/2010 Hepatitis B series for 19+ Aged Out N o longer eligible based on patient's age to complete this topic Insurance [facility] MEDICARE ADVANTAGE MR Advance Directives * Full Code (Latest Code Status on File) Date Activated Date Inactivated Comments 09/14/2021 2:29 PM 09/15/2021 2:06 PM Question Answer Comments Code Status Discussion: Reviewed Preferences Care Teams Well Logging Captain Mud Analysis Relationship Specialty [place] [address] [place] [address] PCP - General Family Practice 07/23/22
--- NOTE | 2025-01-18 12:47 | ED.GENADULT ---
HPI - General Adult General Time Seen by Provider: 12:47 Date Seen: 01/18/25 Chief complaint: Weakness Stated complaint: Body pain Time Seen by Provider: 01/18/25 12:43 Source: patient Mode of arrival: ambulatory Limitations: no limitations History of Present Illness HPI narrative: Kavon is a 84 year old male DNR DNI with chronic kidney disease stage 4, previous dialysis, followed by Nephrology the 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 According to patient and family since before Thanks[place] patient has had worsening generalized weakness, patient continues to decline, not eating or drinking, he tries to drink some boost. Today he could even get out of his recliner chair where he usually resides, slid to the floor, no trauma, patient complains of generalized body aches, he has also has lower back pain, denies any headache, chest pain, but has a chronic productive cough green sputum, no fevers or chills, but he has had weight loss. Pain in the lower back especially when he moves, he has not been taking anything for it. According to patient and family he is making urine, he has had some diarrhea, no blood in the stool. Family is unable to care from at home. Patient was wondering if he gets some pain medications and go home. He is unsure if he wants anything done at this point in regards to workup or labs. Related Data Home Medications ?Medication ?Instructions ?Recorded ?Confirmed acetaminophen 650 mg tablet 650 mg PO TID PRN 01/14/23 01/18/25 ascorbic acid (vitamin C) 1,000 mg 1,000 mg PO QDAY 01/14/23 01/18/25 tablet cholecalciferol (vitamin D3) 50 50 mcg PO QDAY 01/14/23 01/18/25 mcg (2,000 unit) capsule multivitamin (Daily Multi-Vitamin 1 tab PO QAM 01/14/23 01/18/25 tablet) ferrous sulfate 325 mg (65 mg 325 mg PO QDAY 02/04/23 01/18/25 iron) tablet (FeroSul) carvedilol 6.25 mg tablet 6.25 mg PO BID 12/06/24 01/18/25 Previous Rx's ?Medication ?Instructions ?Recorded diphenoxylate-atropine 2.5 1 tab PO TID PRN diarrhea #60 tabs 05/13/23 mg-0.025 mg tablet (Lomotil) azelastine 137 mcg (0.1 %) nasal 1 spray intranasal BID #30 mL 11/01/24 spray losartan 100 1 tab PO QDAY #90 tabs 11/01/24 mg-hydrochlorothiazide 25 mg tablet atorvastatin 10 mg tablet 10 mg PO QHS #90 tabs 12/29/24 Allergies Allergy/AdvReac Type Severity Reaction Status Date / Time No Known Drug Allergies Allergy Verified 01/18/25 12:53 Review of Systems Status of ROS: Reports: 10 or more systems reviewed and unremarkable except as noted in History and below [facility] Medical History Dyslipidemia ?E78.5 - Hyperlipidemia, unspecified (ICD-10) History of pleural empyema ?Z87.09 - Personal history of other diseases of the respiratory system (ICD-10) Chronic cough ?R05.3 - Chronic cough (ICD-10) History of pneumonia ?Z87.01 - Personal history of pneumonia (recurrent) (ICD-10) Post-nasal drip ?R09.82 - Postnasal drip (ICD-10) Primary hypertension ?I10 - Essential (primary) hypertension (ICD-10) Diarrhea ?R19.7 - Diarrhea, unspecified (ICD-10) Social History Smoking Status: Never smoker Do you use any of these nicotine containing products: None Second hand tobacco smoke exposure: No How often do you have six or more drinks on one occasion: Never AUDIT-C Alcohol total score: 0 Non-prescribed substance use: denies use Exam Narrative: Exam Narrative: General: No obvious distress lying comfortably, HEENT: Pupils equal round reactive to light, extra muscles intact Nontender to palpation cervical spine, is head is atraumatic Oropharynx is moist Lungs: Bilateral rhonchi, respiratory effort normal Heart: Mild sinus tachycardia S1-S2 Abdomen: Distended, soft, bowel sounds hyperactive, nontender Muscle skeletal: Nontender to palpation the thoracic spine, there is some tenderness to palpation the lower lumbar spine and pelvis Internal external rotation hips normal bilaterally, no lower extremity edema Neuro: He is alert awake and oriented Const: Vital Signs, click to edit/add: Vital Signs - 24 hr 01/18/25 12:53 01/18/25 12:59 01/18/25 13:00 Temperature 98.7 F Pulse Rate 114 H 110 H Pulse Rate [Pulse Oximeter] 110 H Respiratory Rate 20 Blood Pressure Blood Pressure [Ri ght Upper Arm] 128/69 Pulse Oximetry 98 99 99 Oxygen Delivery Me thod Room Air 01/18/25 13:01 01/18/25 13:16 01/18/25 13:20 Temperature Pulse Rate 114 H 109 H Pulse Rate [Pulse Oximeter] Respiratory Rate Blood Pressure 107/61 117/64 Blood Pressure [Ri ght Upper Arm] Pulse Oximetry 95 91 Oxygen Delivery Me thod 01/18/25 13:36 01/18/25 13:45 01/18/25 13:48 Temperature Pulse Rate 104 H 98 104 H Pulse Rate [Pulse Oximeter] Respiratory Rate Blood Pressure 119/61 Blood Pressure [Ri ght Upper Arm] Pulse Oximetry 97 96 96 Oxygen Delivery Me thod 01/18/25 14:00 01/18/25 14:01 01/18/25 14:15 Temperature Pulse Rate 102 H 101 H 96 Pulse Rate [Pulse Oximeter] Respiratory Rate Blood Pressure 110/60 Blood Pressure [Ri ght Upper Arm] Pulse Oximetry 94 95 97 Oxygen Delivery Me thod 01/18/25 14:16 01/18/25 14:30 01/18/25 14:31 Temperature Pulse Rate 99 99 99 Pulse Rate [Pulse Oximeter] Respiratory Rate Blood Pressure 105/54 L 112/56 L Blood Pressure [Ri ght Upper Arm] Pulse Oximetry 97 95 94 Oxygen Delivery Me thod 01/18/25 14:32 01/18/25 14:45 01/18/25 14:46 Temperature Pulse Rate 98 97 98 Pulse Rate [Pulse Oximeter] Respiratory Rate Blood Pressure 101/55 L Blood Pressure [Ri ght Upper Arm] Pulse Oximetry 95 95 95 Oxygen Delivery Me thod 01/18/25 15:00 01/18/25 15:01 01/18/25 15:16 Temperature Pulse Rate 95 94 Pulse Rate [Pulse Oximeter] Respiratory Rate Blood Pressure 109/58 L 129/64 Blood Pressure [Ri ght Upper Arm] Pulse Oximetry 95 97 Oxygen Delivery Me thod 01/18/25 15:31 01/18/25 15:38 01/18/25 15:45 Temperature Pulse Rate 97 92 Pulse Rate [Pulse Oximeter] Respiratory Rate Blood Pressure 127/60 Blood Pressure [Ri ght Upper Arm] Pulse Oximetry 96 96 Oxygen Delivery Me thod 01/18/25 15:46 01/18/25 16:00 01/18/25 16:01 Temperature Pulse Rate 95 95 97 Pulse Rate [Pulse Oximeter] Respiratory Rate Blood Pressure 116/58 L 112/58 L Blood Pressure [Ri ght Upper Arm] Pulse Oximetry 95 93 93 Oxygen Delivery Me thod 01/18/25 16:15 01/18/25 16:16 01/18/25 16:17 Temperature Pulse Rate 99 98 98 Pulse Rate [Pulse Oximeter] Respiratory Rate Blood Pressure 102/61 Blood Pressure [Ri ght Upper Arm] Pulse Oximetry 91 90 91 Oxygen Delivery Me thod 01/18/25 16:30 01/18/25 16:31 01/18/25 16:46 Temperature Pulse Rate 97 99 Pulse Rate [Pulse Oximeter] Respiratory Rate Blood Pressure 92/56 L 101/53 L Blood Pressure [Ri ght Upper Arm] Pulse Oximetry 90 Oxygen Delivery Me thod 01/18/25 17:01 Temperature Pulse Rate Pulse Rate [Pulse Oximeter] Respiratory Rate Blood Pressure 103/53 L Blood Pressure [Ri ght Upper Arm] Pulse Oximetry Oxygen Delivery Me thod Course Course ED Course: 1:00 PM: aidet performed, vitals show mild tachycardia, patient is afebrile, blood pressure stable, respiratory rate and O2 saturations within normal limits, workup will include IV peripheral, 0.9 NS bolus, will obtain urinalysis, urine culture, blood cultures, EKG, CBC, magnesium, CMP, XR chest portable one view, will likely admit for possible hospice or palliative care. Patient is DNR DNI, is indecisive on whether he wants any workup or labs done at this time, further discussion with son and patient will start with some lab draw, see if we get him admitted for possible hospice consult Reevaluation(s) Reevaluation #1: EKG showed sinus tachycardia with occasional premature ventricular complexes, left axis deviation right bundle-branch block, inferior infarct age undetermined, no acute ST elevation or depression, no Sgarbossa criteria, CBC shows new worsening anemia at hemoglobin 7.2, no clinical signs of any GI bleed likely chronic, metabolic panel showed potassium 5.4, sodium 134, normal LFTs, creatinine of 5.3, BNP 2200, imaging showed no pneumonia or heart failure, magnesium 1.7, he was given the above care and did well, additional 2 mg IV morphine sulfate for pain, was able to speak with hospitalist Yohana Singletary, figure out a plan for patient disposition. Time of Reevaluation #2: 16:28 Reevaluation #2: patient is declining admission, blood transfusion or further care. Son present. Power of attorney law clerk also declining care. Plan is to have social Work come me with the patient and family, then eventually have hospice evaluate the patient, discussed trying to get the patient home versus observation, if family unable to care for the patient at home he will be admitted for observation. Reevaluation #3: Met with [facility] social service, prefers patient to come home, son to come pick patient up and hospice order for home. However patient has had worsening ongoing weakness, he is unable to transfer, he will be unable to get in a vehicle at this time, he would be a fall risk at home, there is no home support for him at this point, would be better for patient to be observation overnight and then discharged home in the morning to hospice. Plan to admit for observation. Vital Signs Vital signs: Initial Vital Signs Temperature 98.7 F 01/18/25 12:53 Temperature Source Temporal Artery Scan 01/18/25 12:53 Pulse Rate 110 H 01/18/25 12:53 Respiratory Rate 20 01/18/25 12:53 Blood Pressure 128/69 01/18/25 12:53 Blood Pressure Mean 88 01/18/25 12:53 Pulse Oximetry 98 01/18/25 12:53 Oxygen Delivery Method Room Air 01/18/25 12:53 Vital Signs Temperature 98.7 F 01/18/25 12:53 Pulse Rate 110 H 01/18/25 12:53 Respiratory Rate 20 01/18/25 12:53 Blood Pressure 128/69 01/18/25 12:53 Pulse Oximetry 98 01/18/25 12:53 Oxygen Delivery Method Room Air 01/18/25 12:53 Temperature 98.7 F 01/18/25 12:53 Pulse Rate 99 01/18/25 16:31 Respiratory Rate 20 01/18/25 12:53 Blood Pressure 103/53 L 12/03/25 17:01 Pulse Oximetry 90 01/18/25 16:30 Oxygen Delivery Method Room Air 01/18/25 12:53 Medications Administered Medications: Discontinued Medications Generic Name Dose Route Start Last Admin Trade Name Freq PRN Reason Stop Dose Admin Sodium Chloride 1,000 mls @ 1,000 mls/hr 01/18/25 13:15 01/18/25 14:48 0.9 % Sodium Chloride 1000 Ml IV 01/18/25 14:14 Infused .Q1H LOUANN Infusion Morphine Sulfate 2 mg 01/18/25 13:39 01/18/25 13:44 Morphine 2 Mg/Ml Inj IVP 01/18/25 13:40 2 mg ONCE ONE Administration Medical Decision Making Lab Data Labs: Lab Results 01/18/25 Range/Units 13:34 WBC 4.96 (4.50-11.00) K/uL RBC 2.31 L (4.30-5.90) m/uL Hgb 7.2 L* (13.5-17.5) gm/dL Hct 23.5 L (37.0-53.0) % MCV 102 H (80-100) fL MCH 31 (26-34) pg MCHC 31 L (32-36) gm/dL RDW Coeff of [place] 14.8 (11.5-15.5) % Plt Count 170 (140-440) K/uL Neut % (Auto) 69.6 (42.0-72.0) % Lymph % (Auto) 9.1 L (20-44) % [place] % (Auto) 12.7 H (0.0-11.0) % Eos % (Auto) 5.0 (0.0-7.0) % Baso % (Auto) 0.6 (0.0-3.0) % Neut # (Auto) 3.45 (1.7-7.0) K/uL Lymph # (Auto) 0.50 L (0.90-2.90) K/uL [place] # (Auto) 0.60 (0.00-0.90) K/UL Eos # (Auto) 0.25 (0.00-0.50) K/uL Baso # (Auto) 0.03 (0.00-0.30) K/uL Abs Immat Gran (auto) 0.15 (0.00-0.30) K/uL Imm/Tot Granulo (auto) 3.0 % Sodium 134 L (135-149) mmol/L Potassium 5.4 H (3.6-5.1) mmol/L Chloride 106 (96-114) mmol/L Carbon Dioxide 18 L (20-32) mmol/L Anion Gap 10 (7-15) mEq/L BUN 77 H (7-30) mg/dL Creatinine 5.3 H (0.5-1.5) mg/dL Estimated GFR 10 ml/min Glucose 114 (60-115) mg/dL Calcium 10.5 (8.4-10.6) mg/dL Magnesium 1.7 (1.5-2.6) mg/dL Total Bilirubin 0.4 (0.1-1.5) mg/dL AST 26 (12-35) U/L ALT 13 (4-50) U/L Alkaline Phosphatase 86 (40-150) U/L NT-Pro-B Natriuret Pep 2200 H (See Note) pg/mL Total Protein 10.2 H (6.0-8.3) g/dL Albumin 3.6 (3.3-5.0) g/dL Blood Type B Negative Antibody Screen NEGATIVE Discharge Plan Discharge Clinical Impression: Anemia, Acute renal failure, Need for comfort care Patient Disposition: Admitted As Observation
--- NOTE | 2025-01-18 13:04 | CRLHL7_ITS ---
For Patients: As a result of the Cures Act, medical imaging exams and procedure reports are released immediately into your electronic medical record. You may view this report before your referring provider. If you have questions, please contact your health care provider. INDICATION: Pneumonia TECHNIQUE: Chest 2 views. COMPARISON: Chest radiograph 12/06/2024. FINDINGS: Cardiovascular and mediastinum: Heart size is stable. Unremarkable mediastinum. Lungs and pleural spaces: Lung volumes are slightly low. Minimal right basilar consolidation. No pneumothorax or large pleural effusion, though the right costophrenic angle is out of field of view. Bones and soft tissues: No significant findings. IMPRESSION: Minimal right basilar consolidation, with linear appearance favoring atelectasis, though infection is also in the differential. Dictated by Geraldine Smith MD @ 01/18/2025 1:45:32 PM (Electronically Signed)
[2025-01-18 13:51] LABS: Hematocrit* 23.5 % (37.0-53.0); Immature Granulocytes Abs Auto 0.15 K/uL (0.00-0.30); Immature Granulocytes Pct Auto 3.0 %; Mean Corpuscular HGB Conc 31 gm/dL (32-36); Mean Corpuscular Hemoglobin 31 pg (26-34); Mean Corpuscular Volume 102 fL (80-100); RDW Coefficient of Variation % 14.8 % (11.5-15.5); Red Blood Count* 2.31 m/uL (4.30-5.90); White Blood Count* 4.96 K/uL (4.50-11.00)
[2025-01-18 14:00] LABS: Hemoglobin* 7.2 gm/dL (13.5-17.5); Lymphocytes Absolute Auto 0.50 K/uL (0.90-2.90); Slide Review Reflex No
[2025-01-18 14:06] LABS: Albumin* 3.6 g/dL (3.3-5.0); Chloride* 106 mmol/L (96-114); Potassium* 5.4 mmol/L (3.6-5.1); Sodium* 134 mmol/L (135-149)
[2025-01-18 14:08] LABS: Blood Urea Nitrogen* 77 mg/dL (7-30); Creatinine* 5.3 mg/dL (0.5-1.5); Estimated Glomerular Filt Rate 10 ml/min
[2025-01-18 14:09] LABS: Alanine Aminotransferase* 13 U/L (4-50); Alkaline Phosphatase* 86 U/L (40-150); Anion Gap 10 mEq/L (7-15); Aspartate Amino Transferase* 26 U/L (12-35); Bilirubin Total* 0.4 mg/dL (0.1-1.5); Calcium* 10.5 mg/dL (8.4-10.6); Carbon Dioxide* 18 mmol/L (20-32); Glucose* 114 mg/dL (60-115); Total Protein* 10.2 g/dL (6.0-8.3)
[2025-01-18 14:25] LABS: NT Pro B Type NatriureticPept* 2200 pg/mL (See Note)
--- NOTE | 2025-01-18 17:11 | PC.SOCIAL ---
Addendum entered by TRAVIS Zapata 01/18/25 17:53: Discharge planning: Met with son who came at 's request to pick pt up and bring him home. Answered son's questions about hospice services and discharge options. Son states he wants pt to stay in the hospital overnight but pt's is insisting he come home to avoid a hospital bill. Provided son with written information on observation status versus in-pt status which included where to find additional information from Medicare. Son states pt's will not let him stay at the house with them tonight and that she can not care for pt at home. Son has other siblings who are not involved with supporting pt at home. Son is considering options and is aware pt can stay in the hospital as observation overnight and hospice can be arranged for home tomorrow. Son is also aware of option to have pt transported home by EMS for a private pay cost. Son is considering options discharge options. Original Note: Discharge planning: Called pt's , Viviana, , regarding d/c plan. had questions about hospice care and what is covered by insurance. Discussed option for hospice care at home or in a [facility] or hospice facility. Shared information on the coverage for hospice services in the home or facility and that the facility room and board was typically not covered by insurance but hospice services are covered. stated she will take pt home and wants social media intern to arrange for hospice care at home. is aware that the Emergency Dept doctor can write orders for hospice and that social media intern can contact a hospice agency in the morning with those orders and likely hospice will be arrange to start tomorrow. ditch worker left list of hospice care agencies in the emergency room and will look over the list and talk to social media intern in the morning about which agency she wants contacted with the order. is aware of option for pt to remain in the hospital overnight as an observation patient and for hospice to be arranged before he is discharged home and states she does not want to get a bill for him staying in the hospital and will take him home tonight instead of leaving him in the hospital as observation. is aware hospice is not going to start before order is sent tomorrow to an agency of her choice. ditch worker to follow up as needed.
--- NOTE | 2025-01-18 21:01 | PM.IMHP1 ---
Assessment and Plan Assessment and plan (1) Need for comfort care: Problem comment: -observation admission for comfort cares -rn social services for assistance with hospice (initiated in ED) Status: Acute (2) Acute renal failure: Problem comment: -wishes no further management/intervention Status: Acute (3) Anemia: Problem comment: -wishes for no further management/intervention Status: Acute Plan director of career services for hospice Total Time Spent Total Time Spent: Today I spent 75 minutes seeing the patient, reviewing Expanse and EPIC notes/diagnostics, discussing the care plan with our care time that includes social work, PT/OT, pharmacy, RT, residential and documenting my impressions and plan in the medical record. Hospitalist- H&P: HPI History of Present Illness Date Seen: 01/18/25 Chief complaint: Body pain Narrative: Kavon Song is a 84 year old male past medical history significant for hypertension, gout, depression, stage IIIB CKD is admitted to the medical floor from the ED for comfort cares and initiation of hospice. Patient is a poor historian, no family members present currently in the ED, most of history is obtained from ED provider. Was brought to the ED via private vehicle with concern for increasing weakness poor oral intake and generalized pain. Report is that is unable to care for him at home anymore. Apparently, patient was unable to get out of his recliner chair this morning and slid to the floor without trauma. Patient has been complaining of pain all over, has had weight loss, decreasing appetite and poor oral intake. Per report, he is still making urine at home has had some diarrhea but no blood in the stool. In the ED, hemoglobin is 7.2, creatinine is 5.3, BUN 77, GFR 10, potassium is 5.4, sodium is 134, CO2 18, LFTs are unremarkable. CXR shows atelectasis, possible infectious process. ED provider tells me patient was not even sure he wanted this amount of workup. I spoke with patient's son, Everton, on speaker phone in the patient's room. We discussed management options including blood transfusion, IV fluids. Patient and son tell me they do not want any further treatment or workup. The plan, as discussed with patient's earlier, is to proceed with comfort cares and hospice. I also spoke with patient's , Viviana, on speaker phone in the patient's room. We had the same discussion and confirms plan is to proceed with comfort cares and hospice. director of career services discussed hospice options and provided son with resources. Initial plan was for son to transport patient back to his home with his as they did not want to admit him under observation. It was determined by ED staff, along with family, that they were unable to get him into the private vehicle and concern was for who would take care of him overnight if was unable to do so and not allowing family members to assist. Patient is admitted under observation for comfort cares and initiation of hospice. Review of Systems Narrative: REVIEW OF SYSTEMS: Complete review of systems performed and negative unless otherwise stated in HPI or below. Medical Decision Making Medical Decision Making Code Status: DNR/DNI Has patient completed a Health Care Directive: No PFSH PFS Medical History Dyslipidemia ?E78.5 - Hyperlipidemia, unspecified (ICD-10) History of pleural empyema ?Z87.09 - Personal history of other diseases of the respiratory system (ICD-10) Chronic cough ?R05.3 - Chronic cough (ICD-10) History of pneumonia ?Z87.01 - Personal history of pneumonia (recurrent) (ICD-10) Post-nasal drip ?R09.82 - Postnasal drip (ICD-10) Primary hypertension ?I10 - Essential (primary) hypertension (ICD-10) Diarrhea ?R19.7 - Diarrhea, unspecified (ICD-10) Social History What is your current living situation?: I presently have a place to live Problems where you live: no known problems Problems where you live details: [place] In the past 12 months, utilities in danger of being shut off: unable to answer In past 12 months, lack of transportation kept you from medical appts, meetings, work, or getting things needed for daily living: unable to answer In the past 12 mos, have been you worried that your food would run out before you had money to buy more?: unable to answer In the past 12 mos, the food you bought just didn't last and you didn't have money to buy more?: unable to answer Highest level of school completed/degree received: 12th grade, no diploma Smoking Status: Never smoker Do you use any of these nicotine containing products: None Second hand tobacco smoke exposure: No How often do you have a drink containing alcohol: never How often do you have six or more drinks on one occasion: Never AUDIT-C Alcohol total score: 0 Non-prescribed substance use: denies use How often does anyone, including family, friends and others, physically hurt you: unable to answer How often does anyone, including family, friends and others, insult or talk down to you: unable to answer How often does anyone, including family, friends and others, threaten you with harm: unable to answer How often does anyone, including family, friends and others, scream or curse at you: unable to answer Meds Home Medications and Allergies Home Medications ?Medication ?Instructions ?Recorded ?Confirmed ?Type acetaminophen 650 mg tablet 650 mg PO TID PRN 01/14/23 01/18/25 History ascorbic acid (vitamin C) 1,000 mg 1,000 mg PO QDAY 01/14/23 01/18/25 History tablet cholecalciferol (vitamin D3) 50 50 mcg PO QDAY 01/14/23 01/18/25 History mcg (2,000 unit) capsule multivitamin (Daily Multi-Vitamin 1 tab PO QAM 01/14/23 01/18/25 History tablet) ferrous sulfate 325 mg (65 mg 325 mg PO QDAY 02/04/23 01/18/25 History iron) tablet (FeroSul) diphenoxylate-atropine 2.5 1 tab PO TID PRN diarrhea #60 tabs 05/13/23 01/18/25 Rx mg-0.025 mg tablet (Lomotil) azelastine 137 mcg (0.1 %) nasal 1 spray intranasal BID #30 mL 11/01/24 01/18/25 Rx spray losartan 100 1 tab PO QDAY #90 tabs 11/01/24 01/18/25 Rx mg-hydrochlorothiazide 25 mg tablet carvedilol 6.25 mg tablet 6.25 mg PO BID 12/06/24 01/18/25 History atorvastatin 10 mg tablet 10 mg PO QHS #90 tabs 12/29/24 01/18/25 Rx Allergies Allergy/AdvReac Type Severity Reaction Status Date / Time No Known Drug Allergies Allergy Verified 01/18/25 12:53 Exam Narrative: Exam Narrative: PHYSICAL EXAM General: Rather sleepy, easily awakens but dozes off again HEENT: Normocephalic, atraumatic, sclera white, EOMI, oral mucosa dry Cardiovascular: RRR, S1S2. No pitting edema Pulmonary: Diminished breath sounds. Coarse upper airway noise Abdominal: Soft, nondistended, NTTP Neurological: Alert, uncertain of cognitive status, slightly confused Extremities: No gross joint deformity or swelling. Skin: Warm, dry. Const: Vital Signs, click to edit/add: Vital Signs - 24 hr 01/18/25 12:53 01/18/25 12:59 01/18/25 13:00 Temperature 98.7 F Pulse Rate 114 H 110 H Pulse Rate [Pulse Oximeter] 110 H Pulse Rate [Right Radial] Respiratory Rate 20 Blood Pressure Blood Pressure [Le ft Arm] Blood Pressure [Ri ght Upper Arm] 128/69 Pulse Oximetry 98 99 99 Oxygen Delivery Me thod Room Air 01/18/25 13:01 01/18/25 13:16 01/18/25 13:20 Temperature Pulse Rate 114 H 109 H Pulse Rate [Pulse Oximeter] Pulse Rate [Right Radial] Respiratory Rate Blood Pressure 107/61 117/64 Blood Pressure [Le ft Arm] Blood Pressure [Ri ght Upper Arm] Pulse Oximetry 95 91 Oxygen Delivery Me thod 01/18/25 13:36 01/18/25 13:45 01/18/25 13:48 Temperature Pulse Rate 104 H 98 104 H Pulse Rate [Pulse Oximeter] Pulse Rate [Right Radial] Respiratory Rate Blood Pressure 119/61 Blood Pressure [Le ft Arm] Blood Pressure [Ri ght Upper Arm] Pulse Oximetry 97 96 96 Oxygen Delivery Me thod 01/18/25 14:00 01/18/25 14:01 01/18/25 14:15 Temperature Pulse Rate 102 H 101 H 96 Pulse Rate [Pulse Oximeter] Pulse Rate [Right Radial] Respiratory Rate Blood Pressure 110/60 Blood Pressure [Le ft Arm] Blood Pressure [Ri ght Upper Arm] Pulse Oximetry 94 95 97 Oxygen Delivery Me thod 01/18/25 14:16 01/18/25 14:30 01/18/25 14:31 Temperature Pulse Rate 99 99 99 Pulse Rate [Pulse Oximeter] Pulse Rate [Right Radial] Respiratory Rate Blood Pressure 105/54 L 112/56 L Blood Pressure [Le ft Arm] Blood Pressure [Ri ght Upper Arm] Pulse Oximetry 97 95 94 Oxygen Delivery Me thod 01/18/25 14:32 01/18/25 14:45 01/18/25 14:46 Temperature Pulse Rate 98 97 98 Pulse Rate [Pulse Oximeter] Pulse Rate [Right Radial] Respiratory Rate Blood Pressure 101/55 L Blood Pressure [Le ft Arm] Blood Pressure [Ri ght Upper Arm] Pulse Oximetry 95 95 95 Oxygen Delivery Me thod 01/18/25 15:00 01/18/25 15:01 01/18/25 15:16 Temperature Pulse Rate 95 94 Pulse Rate [Pulse Oximeter] Pulse Rate [Right Radial] Respiratory Rate Blood Pressure 109/58 L 129/64 Blood Pressure [Le ft Arm] Blood Pressure [Ri ght Upper Arm] Pulse Oximetry 95 97 Oxygen Delivery Me thod 01/18/25 15:31 01/18/25 15:38 01/18/25 15:45 Temperature Pulse Rate 97 92 Pulse Rate [Pulse Oximeter] Pulse Rate [Right Radial] Respiratory Rate Blood Pressure 127/60 Blood Pressure [Le ft Arm] Blood Pressure [Ri ght Upper Arm] Pulse Oximetry 96 96 Oxygen Delivery Me thod 01/18/25 15:46 01/18/25 16:00 01/18/25 16:01 Temperature Pulse Rate 95 95 97 Pulse Rate [Pulse Oximeter] Pulse Rate [Right Radial] Respiratory Rate Blood Pressure 116/58 L 112/58 L Blood Pressure [Le ft Arm] Blood Pressure [Ri ght Upper Arm] Pulse Oximetry 95 93 93 Oxygen Delivery Me thod 01/18/25 16:15 01/18/25 16:16 01/18/25 16:17 Temperature Pulse Rate 99 98 98 Pulse Rate [Pulse Oximeter] Pulse Rate [Right Radial] Respiratory Rate Blood Pressure 102/61 Blood Pressure [Le ft Arm] Blood Pressure [Ri ght Upper Arm] Pulse Oximetry 91 90 91 Oxygen Delivery Me thod 01/18/25 16:30 01/18/25 16:31 01/18/25 16:46 Temperature Pulse Rate 97 99 Pulse Rate [Pulse Oximeter] Pulse Rate [Right Radial] Respiratory Rate Blood Pressure 92/56 L 101/53 L Blood Pressure [Le ft Arm] Blood Pressure [Ri ght Upper Arm] Pulse Oximetry 90 Oxygen Delivery Me thod 01/18/25 17:01 01/18/25 17:16 01/18/25 17:31 Temperature Pulse Rate Pulse Rate [Pulse Oximeter] Pulse Rate [Right Radial] Respiratory Rate Blood Pressure 103/53 L 101/50 L 112/69 Blood Pressure [Le ft Arm] Blood Pressure [Ri ght Upper Arm] Pulse Oximetry Oxygen Delivery Me thod 01/18/25 17:46 01/18/25 17:48 01/18/25 18:00 Temperature Pulse Rate 102 H 93 Pulse Rate [Pulse Oximeter] Pulse Rate [Right Radial] Respiratory Rate Blood Pressure 115/83 Blood Pressure [Le ft Arm] Blood Pressure [Ri ght Upper Arm] Pulse Oximetry 96 Oxygen Delivery Me thod 01/18/25 18:01 01/18/25 18:16 01/18/25 18:30 Temperature Pulse Rate 93 96 90 Pulse Rate [Pulse Oximeter] Pulse Rate [Right Radial] Respiratory Rate Blood Pressure 111/67 110/66 Blood Pressure [Le ft Arm] Blood Pressure [Ri ght Upper Arm] Pulse Oximetry 97 98 Oxygen Delivery Me thod 01/18/25 18:31 01/18/25 19:00 01/18/25 19:10 Temperature 97.8 F 97.8 F Pulse Rate 90 Pulse Rate [Pulse Oximeter] Pulse Rate [Right Radial] 94 94 Respiratory Rate 18 18 Blood Pressure 114/60 Blood Pressure [Le ft Arm] 106/92 H 106/92 H Blood Pressure [Ri ght Upper Arm] Pulse Oximetry 97 97 95 Oxygen Delivery Me thod Room Air Room Air Hospitalist - H&P: Result Labs Labs: Short CBC 01/18/25 Range/Units 13:34 WBC 4.96 (4.50-11.00) K/uL Hgb 7.2 L* (13.5-17.5) gm/dL Hct 23.5 L (37.0-53.0) % Plt Count 170 (140-440) K/uL BMP 01/18/25 13:34 Sodium 134 L Potassium 5.4 H Chloride 106 Carbon Dioxide 18 L BUN 77 H Creatinine 5.3 H Glucose 114 Calcium 10.5 Liver Function 01/18/25 Range/Units 13:34 Total Bilirubin 0.4 (0.1-1.5) mg/dL AST 26 (12-35) U/L ALT 13 (4-50) U/L Alkaline Phosphatase 86 (40-150) U/L Albumin 3.6 (3.3-5.0) g/dL Imaging Chest x-ray: Attestation: I have reviewed the pertinent imaging results. Radiologist's impression: Cardiovascular and mediastinum: Heart size is stable. Unremarkable mediastinum. Lungs and pleural spaces: Lung volumes are slightly low. Minimal right basilar consolidation. No pneumothorax or large pleural effusion, though the right costophrenic angle is out of field of view. Bones and soft tissues: No significant findings. IMPRESSION: Minimal right basilar consolidation, with linear appearance favoring atelectasis, though infection is also in the differential.
[2025-01-19] MEDS: SODIUM CHLORIDE 0.9 % (FLUSH) 10 ML SYRINGE 5 ML IVF ×4 (02:24→21:19)
[2025-01-19] MEDS: MORPHINE 10 MG/0.5 ML ORAL SOLN PO ×7 (02:25→21:21)
--- NOTE | 2025-01-19 05:36 | PC.NURSE ---
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 Pt did ambulate heavy 2A pivot to bedside commode. Pt?s?body is?jerky?when?ambulating. Oral morphine offered and?given for?comfort. Pt has?an?intermittent moist cough. Mepilex applied to pts coccyx due to redness and excoriation.?Cont?of bladder. Bed alarm on, call light within reach.?
[2025-01-19 07:00] VITALS: PULSE 94; RESP 22
[2025-01-19] MEDS: HYOSCYAMINE SULFATE 0.125 MG TAB SUBLINGUAL (10:40)
[2025-01-19] MEDS: SCOPOLAMINE 1 MG/3 DAY PATCH 1 PATCH TRANSDERMA (11:28)
--- NOTE | 2025-01-19 11:35 | PC.SOCIAL ---
Spoke with patient's spouse Viviana at [phone] and son Everton at [phone] to discuss hospice options and discharge plans. Explained to Everton and Viviana again what services hospice provides at home. They are both in agreement for hospice services and Viviana has no preference on a vendor. Discussed who would be providing care for pt. as pt.'s spouse is also 84 and of very small stature. Everton lives 10 miles away and plans to come over every couple of hours to reposition pt. in bed and offer fluids/food, and pain management. A referral was made to [facility] at [phone]. Spoke with Rhona in admissions with [facility] at [phone] and a referral was sent. They are working on getting a hospital bed delivered later today. Viviana wanted to delay discharge until tomorrow and hospice originally was going to admit at 1pm on Thursday. Spoke with the physician and patient's son Everton again about discharge as pt. is medically ready, and he is in agreement not to delay discharge. He wants to honor pt.'s wishes to at home. Updated Rhona at [facility] that admit to hospice should happen today if it can be arranged. She is working on seeing if a nurse is available later today to admit pt. to hospice. Waiting to hear back on discharge timing once a hospital bed is delivered and a set admission time for hospice is arranged.
--- NOTE | 2025-01-19 13:40 | PM.DS1 ---
DS: Providers Provider Date Seen: 01/19/25 Date of admission: 01/18/25 18:44 Primary care physician: Arpan Smart MD Admitting Clinician: Yohana Eisenberg PA-C Consults: Attending Physician on discharge: Alisa Pompa MD Date of Discharge: 01/19/25 DS: Diagnosis Discharge Diagnosis (1) Need for comfort care: Status: Acute Problem details: -observation admission for comfort cares -social work manager for assistance with hospice (initiated in ED) (2) Acute renal failure: Status: Acute Problem details: -wishes no further management/intervention (3) Anemia: Status: Acute Problem details: -wishes for no further management/intervention DS: Summary Time Spent with Patient Time attestation: Total time spent providing and/or coordinating discharge services: Exam Const: Vital Signs, click to edit/add: Vital Signs - 24 hr 01/18/25 13:45 01/18/25 13:48 01/18/25 14:00 Temperature Pulse Rate 98 104 H 102 H Pulse Rate [Right Radial] Respiratory Rate Blood Pressure 119/61 Blood Pressure [Le ft Arm] Pulse Oximetry 96 96 94 Oxygen Delivery Me thod 01/18/25 14:01 01/18/25 14:15 01/18/25 14:16 Temperature Pulse Rate 101 H 96 99 Pulse Rate [Right Radial] Respiratory Rate Blood Pressure 110/60 105/54 L Blood Pressure [Le ft Arm] Pulse Oximetry 95 97 97 Oxygen Delivery Me thod 01/18/25 14:30 01/18/25 14:31 01/18/25 14:32 Temperature Pulse Rate 99 99 98 Pulse Rate [Right Radial] Respiratory Rate Blood Pressure 112/56 L Blood Pressure [Le ft Arm] Pulse Oximetry 95 94 95 Oxygen Delivery Me thod 01/18/25 14:45 01/18/25 14:46 01/18/25 15:00 Temperature Pulse Rate 97 98 95 Pulse Rate [Right Radial] Respiratory Rate Blood Pressure 101/55 L Blood Pressure [Le ft Arm] Pulse Oximetry 95 95 95 Oxygen Delivery Me thod 01/18/25 15:01 01/18/25 15:16 01/18/25 15:31 Temperature Pulse Rate 94 Pulse Rate [Right Radial] Respiratory Rate Blood Pressure 109/58 L 129/64 127/60 Blood Pressure [Le ft Arm] Pulse Oximetry 97 Oxygen Delivery Me thod 01/18/25 15:38 01/18/25 15:45 01/18/25 15:46 Temperature Pulse Rate 97 92 95 Pulse Rate [Right Radial] Respiratory Rate Blood Pressure 116/58 L Blood Pressure [Le ft Arm] Pulse Oximetry 96 96 95 Oxygen Delivery Me thod 01/18/25 16:00 01/18/25 16:01 01/18/25 16:15 Temperature Pulse Rate 95 97 99 Pulse Rate [Right Radial] Respiratory Rate Blood Pressure 112/58 L Blood Pressure [Le ft Arm] Pulse Oximetry 93 93 91 Oxygen Delivery Me thod 01/18/25 16:16 01/18/25 16:17 01/18/25 16:30 Temperature Pulse Rate 98 98 97 Pulse Rate [Right Radial] Respiratory Rate Blood Pressure 102/61 Blood Pressure [Le ft Arm] Pulse Oximetry 90 91 90 Oxygen Delivery Me thod 01/18/25 16:31 01/18/25 16:46 01/18/25 17:01 Temperature Pulse Rate 99 Pulse Rate [Right Radial] Respiratory Rate Blood Pressure 92/56 L 101/53 L 103/53 L Blood Pressure [Le ft Arm] Pulse Oximetry Oxygen Delivery Me thod 01/18/25 17:16 01/18/25 17:31 01/18/25 17:46 Temperature Pulse Rate Pulse Rate [Right Radial] Respiratory Rate Blood Pressure 101/50 L 112/69 115/83 Blood Pressure [Le ft Arm] Pulse Oximetry Oxygen Delivery Me thod 01/18/25 17:48 01/18/25 18:00 01/18/25 18:01 Temperature Pulse Rate 102 H 93 93 Pulse Rate [Right Radial] Respiratory Rate Blood Pressure 111/67 Blood Pressure [Le ft Arm] Pulse Oximetry 96 97 Oxygen Delivery Me thod 01/18/25 18:16 01/18/25 18:30 01/18/25 18:31 Temperature Pulse Rate 96 90 90 Pulse Rate [Right Radial] Respiratory Rate Blood Pressure 110/66 114/60 Blood Pressure [Le ft Arm] Pulse Oximetry 98 97 Oxygen Delivery Me thod 01/18/25 19:00 01/18/25 19:10 01/18/25 19:30 Temperature 97.8 F 97.8 F Pulse Rate Pulse Rate [Right Radial] 94 94 Respiratory Rate 18 18 18 Blood Pressure Blood Pressure [Le ft Arm] 106/92 H 106/92 H Pulse Oximetry 97 95 95 Oxygen Delivery Me thod Room Air Room Air Room Air 01/19/25 07:00 Temperature Pulse Rate Pulse Rate [Right Radial] 94 Respiratory Rate 22 Blood Pressure Blood Pressure [Le ft Arm] Pulse Oximetry Oxygen Delivery Me thod DS: Data Data Completed and Pending Labs on day of discharge: Labs from last 24 hours 01/18/25 13:34 WBC 4.96 RBC 2.31 L Hgb 7.2 L* Hct 23.5 L MCV 102 H MCH 31 MCHC 31 L RDW Coeff of [place] 14.8 Plt Count 170 Neut % (Auto) 69.6 Lymph % (Auto) 9.1 L Mccone % (Auto) 12.7 H Eos % (Auto) 5.0 Baso % (Auto) 0.6 Neut # (Auto) 3.45 Lymph # (Auto) 0.50 L Mccone # (Auto) 0.60 Eos # (Auto) 0.25 Baso # (Auto) 0.03 Abs Immat Gran (auto) 0.15 Imm/Tot Granulo (auto) 3.0 Sodium 134 L Potassium 5.4 H Chloride 106 Carbon Dioxide 18 L Anion Gap 10 BUN 77 H Creatinine 5.3 H Estimated GFR 10 Glucose 114 Calcium 10.5 Magnesium 1.7 Total Bilirubin 0.4 AST 26 ALT 13 Alkaline Phosphatase 86 NT-Pro-B Natriuret Pep 2200 H Total Protein 10.2 H Albumin 3.6 Blood Type B Negative Antibody Screen NEGATIVE Discharge Plan Discharge Disposition: Xfer Home- (Hospice) Date of Admission: 01/18/25 18:44 Attending Provider on Discharge: Alisa Pompa Primary Care Provider: Arpan Smart Anticipated Discharge Date/Time: 01/19/25 11:14 Discharge Medications: Discontinued multivitamin [Daily Multi-Vitamin] Tablet 1 tab PO QAM ascorbic acid (vitamin C) 1,000 mg tablet 1,000 mg PO QDAY cholecalciferol (vitamin D3) 50 mcg (2,000 unit) capsule 50 mcg PO QDAY acetaminophen 650 mg tablet 650 mg PO TID PRN ferrous sulfate [FeroSul] 325 mg (65 mg iron) tablet 325 mg PO QDAY diphenoxylate-atropine [Lomotil] 2.5-0.025 mg tablet 1 tab PO TID PRN (Reason: diarrhea) Qty: 60 2RF carvedilol 6.25 mg tablet 6.25 mg PO BID Rx Instructions: must administer with a meal/food losartan-hydrochlorothiazide 100-25 mg tablet 1 tab PO QDAY Qty: 90 3RF azelastine 137 mcg (0.1 %) spray,non-aerosol 1 spray intranasal BID Qty: 30 1RF Rx Instructions: administer into each nostril atorvastatin 10 mg tablet 10 mg PO QHS Qty: 90 3RF Discharge Orders: Discharge Order (Routine); Ordered 01/19/25 Ordered By: Alisa Pompa Additional Instructions: 12mcg fentanyl patch placed 12/4 am. Follow Up Appointments: Arpan Smart MD [Primary Care Provider, Family Practice] [facility]
--- NOTE | 2025-01-19 14:18 | PC.SOCIAL ---
[facility] will admit pt. tomorrow at 11am. They could not accommodate an admission this afternoon due to staffing. Pt. will transport via EMS and his will be at the home with hospice. Son Everton will arrive at 11:30 to complete the paperwork.
--- NOTE | 2025-01-19 14:45 | PC.NURSE ---
End of shift report [id number]: Patient drowsy at the start of the shift but able to hold conversation and swallow pills. At 100 patient was non responsive, patient restless and agitated. PRN medications administered and effective for restlessness. Fentanyl patch intact to left upper chest wall and scopolamine patch present behind left ear. Turn and reposition q 2 hours, patient tolerates repositioning after use of PRN medications to reduce discomfort. Dressing intact to coccyx.
[2025-01-19 15:00] VITALS: PULSE 94; RESP 22
--- NOTE | 2025-01-19 15:11 | PM.IMPN1 ---
Assessment and Plan Assessment and plan (1) Need for comfort care: Problem comment: -hospice referral, they will be able to open him at home on 01/20 -primary diagnosis of acute renal failure in the setting of known chronic kidney disease with previous dialysis Status: Acute Plan -comfort care medications, Viviana updated by phone Subjective Date Seen: 01/19/25 Interval history: Jarred presented to the hospital yesterday for significant weakness, also noted to have FRANCISCO in the setting of CKD and anemia. History of chronic kidney disease requiring hemodialysis; he was requesting home with comfort cares. He was admitted for hospice consultation and set up. Having generalized discomfort, fentanyl patch placed. Minimally interactive today, no p.o. intake. Resting comfortably in bed. [place] [facility] has agreed to admission; unfortunately, they did not have a nurse to open today. Exam Narrative: Exam Narrative: Patient is resting in bed. He does not respond to voice. Skin is warm. Const: Vital Signs, click to edit/add: Vital Signs - 24 hr 01/18/25 15:16 01/18/25 15:31 01/18/25 15:38 Temperature Pulse Rate 97 Pulse Rate [Right Radial] Respiratory Rate Blood Pressure 129/64 127/60 Blood Pressure [Le ft Arm] Pulse Oximetry 96 Oxygen Delivery Me thod 01/18/25 15:45 01/18/25 15:46 01/18/25 16:00 Temperature Pulse Rate 92 95 95 Pulse Rate [Right Radial] Respiratory Rate Blood Pressure 116/58 L Blood Pressure [Le ft Arm] Pulse Oximetry 96 95 93 Oxygen Delivery Me thod 01/18/25 16:01 01/18/25 16:15 01/18/25 16:16 Temperature Pulse Rate 97 99 98 Pulse Rate [Right Radial] Respiratory Rate Blood Pressure 112/58 L 102/61 Blood Pressure [Le ft Arm] Pulse Oximetry 93 91 90 Oxygen Delivery Me thod 01/18/25 16:17 01/18/25 16:30 01/18/25 16:31 Temperature Pulse Rate 98 97 99 Pulse Rate [Right Radial] Respiratory Rate Blood Pressure 92/56 L Blood Pressure [Le ft Arm] Pulse Oximetry 91 90 Oxygen Delivery Me thod 01/18/25 16:46 01/18/25 17:01 01/18/25 17:16 Temperature Pulse Rate Pulse Rate [Right Radial] Respiratory Rate Blood Pressure 101/53 L 103/53 L 101/50 L Blood Pressure [Le ft Arm] Pulse Oximetry Oxygen Delivery Me thod 01/18/25 17:31 01/18/25 17:46 01/18/25 17:48 Temperature Pulse Rate 102 H Pulse Rate [Right Radial] Respiratory Rate Blood Pressure 112/69 115/83 Blood Pressure [Le ft Arm] Pulse Oximetry Oxygen Delivery Me thod 01/18/25 18:00 01/18/25 18:01 01/18/25 18:16 Temperature Pulse Rate 93 93 96 Pulse Rate [Right Radial] Respiratory Rate Blood Pressure 111/67 110/66 Blood Pressure [Le ft Arm] Pulse Oximetry 96 97 Oxygen Delivery Me thod 01/18/25 18:30 01/18/25 18:31 01/18/25 19:00 Temperature 97.8 F Pulse Rate 90 90 Pulse Rate [Right Radial] 94 Respiratory Rate 18 Blood Pressure 114/60 Blood Pressure [Le ft Arm] 106/92 H Pulse Oximetry 98 97 [facility] 01/18/25 19:10 01/18/25 19:30 01/19/25 07:00 Temperature 97.8 F Pulse Rate Pulse Rate [Right Radial] 94 94 Respiratory Rate 18 18 22 Blood Pressure Blood Pressure [Le ft Arm] 106/92 H Pulse Oximetry 95 95 Oxygen Delivery Me thod Room Air Room Air
[2025-01-20] MEDS: MORPHINE 10 MG/0.5 ML ORAL SOLN PO ×17 (03:31→23:52)
[2025-01-20 07:00] VITALS: RESP 22
--- NOTE | 2025-01-20 07:24 | PC.NURSE ---
End of shift report:?Pt?is not responsive,?arouses?to?Q2H repositioning.?Pt is on comfort?cares, tolerating Q2H repositioning in bed.?Oral morphine offered and?given for?comfort. Pt has?rattling lung sounds.?Mepilex?on pts?coccyx due to redness and excoriation.?Incont?of?bladder.?X1?incont?brief requiring a linen change.?Bed alarm on, call light within reach.?
[2025-01-20] MEDS: HYOSCYAMINE SULFATE 0.125 MG TAB SUBLINGUAL ×6 (07:48→22:42)
[2025-01-20] MEDS: SODIUM CHLORIDE 0.9 % (FLUSH) 10 ML SYRINGE 5 ML IVF ×3 (09:06→23:46)
--- NOTE | 2025-01-20 13:26 | PM.IMPN1 ---
Assessment and Plan Assessment and plan (1) Need for comfort care: Problem comment: -primary diagnosis of acute renal failure with hyperkalemia and anemia in the setting of known chronic kidney disease with previous dialysis requirement Status: Acute Plan - comfort cares, family bedside. Anticipate today Subjective Date Seen: 01/20/25 Interval history: Jarred presented to the hospital on 01/18 for significant weakness, also noted to have FRANCISCO in the setting of CKD and anemia. History of chronic kidney disease requiring hemodialysis in the past; he and family requesting comfort-focused treatment. He was admitted for hospice consultation and set up. Had quite a bit of pain on admission, fentanyl patch placed. [place] hospice had agreed to admission on 01/19 but was unable to open until today; unfortunately, Kavon appears to be imminently dying this morning so transport was cancelled. He is receiving Morphine 10-20mg Q30min prn, hyoscyamine for secretions. Comfortable. Family bedside. Exam Narrative: Exam Narrative: Agonal respirations, significant oral secretions noted. Const: Vital Signs, click to edit/add: Vital Signs - 24 hr 01/19/25 15:00 01/20/25 07:00 Pulse Rate [Right Radial] 94 Respiratory Rate 22 22
[2025-01-20 15:00] VITALS: RESP 22
--- NOTE | 2025-01-20 19:38 | PC.NURSE ---
End of shift report : Patient unresponsive this shift. Copious amount of oral secretions requiring q2h hyoscyamine and frequent oral suctioning. Tachypneic throughout the day with respirations ranging from 22-36. PRN morphine administered for tachypnea and prior to repositioning. Patient moaning and resistive to repositioning. bedside this shift and updated.
[2025-01-20 23:00] VITALS: RESP 22
[2025-01-20] MEDS: GLYCOPYRROLATE 0.2 MG/ML INJ IVP (23:46)
[2025-01-21] MEDS: MORPHINE 10 MG/0.5 ML ORAL SOLN PO ×6 (02:05→07:25)
[2025-01-21] MEDS: HYOSCYAMINE SULFATE 0.125 MG TAB SUBLINGUAL ×2 (02:05→04:39)
--- NOTE | 2025-01-21 03:52 | PC.NURSE ---
Shift Note: Pt T&R. Morphine PRN. Frequent suctioning and PRN's for moderate to copious secretions. Frequent oral cares.
[2025-01-21] MEDS: GLYCOPYRROLATE 0.2 MG/ML INJ IVP (06:04)
[2025-01-21] MEDS: SODIUM CHLORIDE 0.9 % (FLUSH) 10 ML SYRINGE 5 ML IVF (06:06)
--- NOTE | 2025-01-21 07:48 | PM.DSD ---
Discharge Sum: Prov Provider Time Seen by Provider: 07:43 Date Seen: 01/21/25 Primary care physician: Arpan Smart MD Consults: 01/18/25 21:11 Consult to Yarn Mercerizer Operator Helper [CONS] Routine Comment: Reason for Consult:: Social Service Consult Hospice Needed Pronouncing clinician: Kassandra Goyal Discharge Sum: Diag Contributing Factors (1) Need for comfort care: (2) Acute renal failure: (3) CKD (chronic kidney disease) stage 4, GFR 15-29 ml/min: Contributing factors: - Suspect due to hypertensive nephrosclerosis (4) History of pleural empyema: (5) Gammopathy, monoclonal: (6) Primary hypertension: Discharge Sum: Summary Date and Time Date of admission: 01/18/25 18:44 Date of : 01/21/25 Time of : 07:44 Summary Details: Jarred presented to the hospital on 01/18 for significant weakness, also noted to have FRANCISCO in the setting of CKD and anemia. History of chronic kidney disease requiring hemodialysis in the past; he and family requesting comfort-focused treatment. He was admitted for hospice consultation and set up. Had quite a bit of pain on admission, fentanyl patch placed. [place] hospice had agreed to admission on 01/19 but was unable to open as Kavon appeared to be imminently dying that morning, so transport was cancelled. Since that time he remained comfortable with prn comfort medications given, and was repositioned at 6:30 a.m. today and noted to be agonal breathing. When I went to assess at 7:44 a.m., he had no response to name or pain, respirations, pulse, or heart sounds and pupils were fixed and dialated. Additional Data Confirmation of as documented by pronouncing clinician: no pulse, no respirations, no heart sounds and pupils fixed and dilated Family: contacted Attending/PCP notified?: Yes Attending physician: Kassandra Goyal MD Was code activated?: No Autopsy requested?: No forensic computer examiner notified?: No Organ bank notified?: Yes Advance directives: No Hospice patient?: No
--- NOTE | 2025-01-21 11:55 | PC.NURSE ---
Electronic Court Recorder assessed patient at 0720, tachypneic and appeared to have air hunger. PRN morphine administered and oral cares provided. At 0744 underwriter solicitation director was approached by and notified that patient was found . Patient without pulse, BP or respirations. Viviana notified and returned bedside after expiration. [facility] called and patient ruled out for donation. [employer] in [place] notified and body removed at 1125am by Garth Booth. Family had removed personal belongings from room, no personal belongings sent with body. Fentanyl patch removed from left chest wall and destroyed with Eleni Rodriguez RN, patch wasted in [facility].
== END 2025-01-21 11:25 | disposition expired ==
LOC: ED 18:44 → MEDSURG 18:44
PROVIDERS: Admitting Provider Physician Assistant; Emergency Provider Student in an Organized Health Care Education/Training Program; PCP Family Medicine; Visit Provider Physician Assistant
DX: I12.9 Hypertensive chronic kidney disease with stage 1 through stage 4 chronic kidney disease, or unspecified chronic kidney disease (principal); Z51.5 Encounter for palliative care; D64.9 Anemia, unspecified; N17.9 Acute kidney failure, unspecified; E87.5 Hyperkalemia; Z99.2 Dependence on renal dialysis
CPT/HCPCS: 36415; 71045; 80053; 81001; 83735; 83880; 85025; 86850; 86900; 86901; 87040; 87086; 93005; 96374; 96375; 99283; 99285; A9270; G0378; J2060; J2270; J7030